=== PATIENT | male | born 1990 | race African-American/Black ===

== ENCOUNTER 2020-01-19 09:47 | Emergency (ER) | payer OTHER ==
[~2020-01-19] VITALS: Ht 172.7 cm; Wt 91.4 kg
[2020-01-19] MEDS ORDERED: IBUP200T45 PO (09:56)
[2020-01-19] MEDS ORDERED: NS 1,000 ML IV ONE (10:45)
[2020-01-19 11:31] LABS: BASO % 0.5 % (0.0-1.0); EOS # 0.1 10^3/uL (0.0-0.5); EOS % 1.6 % (0.0-3.0); HEMATOCRIT 44.9 % (42.0-52.0); HEMOGLOBIN 14.7 g/dl (13.5-17.5); LYMPH # 2.2 10^3/uL (1.5-5.0); LYMPH % 39.2 % (24.0-44.0); MEAN CORPUSCULAR HEMOGLOBIN 29.2 pg (27.0-33.0); MEAN CORPUSCULAR HGB CONC 32.7 g/dl (32.0-36.5); MEAN CORPUSCULAR VOLUME 89.3 fl (80.0-96.0); MONO # 0.5 10^3/uL (0.0-0.8); MONO % 8.2 % (0.0-5.0); NEUTROPHILS # 2.7 10^3/uL (1.5-8.5); NEUTROPHILS % 50.1 % (36.0-66.0); PLATELET COUNT, AUTOMATED 209 10^3/uL (150-450); RED BLOOD COUNT 5.03 10^6/uL (4.30-6.10); WHITE BLOOD COUNT 5.5 10^3/uL (4.0-10.0)
--- NOTE | 2020-01-19 11:35 | REP ---
PA and lateral chest: There are no comparisons. The lung machado are clear. The cardiac size is normal. The boston, mediastinum, and skeletal structures are unremarkable. Impression: Negative PA and lateral chest. Electronically Signed by Olegario Marquez MD 01/19/2020 11:26 A
[2020-01-19 11:57] LABS: APPEARANCE, URINE CLEAR (CLEAR); BACTERIA, URINE AUTO NEGATIVE (NEGATIVE); BILIRUBIN, URINE AUTO NEGATIVE (NEGATIVE); BLOOD, URINE BLOOD NEGATIVE (NEGATIVE); COLOR, URINE YELLOW (YELLOW); GLUCOSE, URINE (UA) AUTO NEGATIVE (NEGATIVE); KETONE, URINE AUTO NEGATIVE (NEGATIVE); LEUKOCYTE ESTERASE, URINE AUTO NEGATIVE (NEGATIVE); NITRITE, URINE AUTO NEGATIVE (NEGATIVE); PROTEIN, URINE AUTO NEGATIVE (NEGATIVE); RBC, URINE AUTO 1 /HPF (0-3); SPECIFIC GRAVITY URINE AUTO 1.017 (1.002-1.035); UROBILINOGEN, URINE AUTO 0.2 mg/dL (0.0-2.0); WBC, URINE AUTO 1 /HPF (0-3)
[2020-01-19 11:58] LABS: MUCUS, URINE SMALL (NEGATIVE); SQUAMOUS EPITHELIAL CELL UR AU 0 /HPF (0-6)
[2020-01-19 12:09] LABS: BLOOD UREA NITROGEN 9 MG/DL (7-18); CARBON DIOXIDE LEVEL 31 MEQ/L (21-32); CHLORIDE LEVEL 108 MEQ/L (98-107); CREATININE FOR GFR 1.01 MG/DL (0.70-1.30); ETHYL ALCOHOL (ETHANOL) 0.003 % (0.000-0.010); GLOMERULAR FILTRATION RATE > 60.0 (>60); GLUCOSE, FASTING 84 MG/DL (70-100); MAGNESIUM LEVEL 2.3 MG/DL (1.8-2.4); POTASSIUM SERUM 4.2 MEQ/L (3.5-5.1); SODIUM LEVEL 142 MEQ/L (136-145); THYROID STIMULATING HORMONE 0.915 uIU/ML (0.358-3.740)
[2020-01-19 12:19] LABS: AMPHETAMINES LEVEL URINE NEGATIVE (NEGATIVE); BARBITURATES URINE NEGATIVE (NEGATIVE); BENZODIAZEPINES URINE NEGATIVE (NEGATIVE); CANNABINOIDS URINE NEGATIVE (NEGATIVE); COCAINE METABOLITE URINE NEGATIVE (NEGATIVE); METHADONE URINE NEGATIVE (NEGATIVE); OPIATES URINE NEGATIVE (NEGATIVE); PHENCYCLIDINE URINE NEGATIVE (NEGATIVE)
[2020-01-19 14:04] VITALS: BP 117/77
--- NOTE | 2020-01-19 18:58 | ECGEPIP ---
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 Order Number: [id number] Reading MD: Jessy Burnett Measurements Intervals [place] Rate: 62 P: 35 OR: 154 QRS: 62 QRSD: 94 T: 13 QT: 367 QTc: 375 Interpretive Statements SINUS RHYTHM NONSPECIFIC T-WAVE ABNORMALITY NO PRIOR Electronically Signed on 01-19-2020 18:57:57 EDT by Jessy Burnett
== END 2020-01-19 14:08 | disposition home or self-care (01) ==
LOC: M ED 09:47
DX: R55 Syncope and collapse (principal); R53.81 Other malaise; R68.83 Chills (without fever); R51 Headache; F10.10 Alcohol abuse, uncomplicated; M54.9 Dorsalgia, unspecified; Z91.013 Allergy to seafood; Z79.1 Long term (current) use of non-steroidal anti-inflammatories (NSAID)
CPT/HCPCS: 71046; 80048; 80307; 83735; 84443; 85025; 87486; 87581; 87633; 87798; 93005; 96360; 96361; 99284; G0480

== ENCOUNTER → 2020-03-09 | Outpatient (CLI) | payer OTHER ==
[~2020-03-09] MED LIST: IBUP200T45 PO
[2020-03-09 11:33] LABS: BASO % 0.5 % (0.0-1.0); EOS # 0.1 10^3/uL (0.0-0.5); EOS % 2.3 % (0.0-3.0); HEMATOCRIT 44.2 % (42.0-52.0); HEMOGLOBIN 14.9 g/dl (13.5-17.5); LYMPH % 45.3 % (24.0-44.0); MEAN CORPUSCULAR HGB CONC 33.7 g/dl (32.0-36.5); MEAN CORPUSCULAR VOLUME 88.9 fl (80.0-96.0); MONO # 0.3 10^3/uL (0.0-0.8); MONO % 7.9 % (0.0-5.0); NEUTROPHILS # 1.9 10^3/uL (1.5-8.5); NEUTROPHILS % 43.8 % (36.0-66.0); PLATELET COUNT, AUTOMATED 181 10^3/uL (150-450); RED BLOOD COUNT 4.97 10^6/uL (4.30-6.10); WHITE BLOOD COUNT 4.3 10^3/uL (4.0-10.0)
[2020-03-09 12:00] LABS: ERYTHROCYTE SEDIMENTATION RATE 3 mm/hr (0-15)
[2020-03-09 12:28] LABS: THYROID STIMULATING HORMONE 1.69 uIU/ML (0.358-3.740)
[2020-03-22 00:08] LABS: STRONGYLOIDES SERUM ANTIBODIES Negative (Negative)
== END ==
LOC: M LAB 10:57
PROVIDERS: ATTEND Dermatology
DX: L50.9 Urticaria, unspecified (principal)
CPT/HCPCS: 36415; 82785; 84439; 84443; 85025; 85652; 86682; G0463

== ENCOUNTER 2020-04-18 11:27 | Emergency (ER) | payer OTHER ==
[~2020-04-18] VITALS: Ht 172.7 cm; Wt 88.2 kg
[2020-04-18] MEDS ORDERED: NON-325T5 PO (11:45)
[2020-04-18] MEDS ORDERED: VOLT1GEL15 TOP (13:03)
[2020-04-18] MEDS ORDERED: NAPR-837 PO (13:03)
[2020-04-18 13:09] VITALS: BP 138/81
--- NOTE | 2020-04-18 13:24 | REP ---
RIGHT SHOULDER, FOUR VIEWS: There is no evidence of an acute fracture, dislocation or intrinsic bone disease. IMPRESSION: No fracture or dislocation. Electronically Signed by Olegario Mack MD 04/19/2020 11:19 A
== END 2020-04-18 13:10 | disposition home or self-care (01) ==
LOC: M ED 11:27
DX: S49.91XA Unspecified injury of right shoulder and upper arm, initial encounter (principal); X50.0XXA Overexertion from strenuous movement or load, initial encounter; Y92.89 Other specified places as the place of occurrence of the external cause; Y93.89 Activity, other specified; Y99.1 Military activity; M54.9 Dorsalgia, unspecified; Z91.013 Allergy to seafood; Z79.899 Other long term (current) drug therapy

== ENCOUNTER 2020-04-29 20:11 | Emergency (ER) | payer OTHER ==
[~2020-04-29] VITALS: Ht 172.7 cm; Wt 88.2 kg
[~2020-04-29 20:11] MED LIST changes: +NAPR-837 PO; +NON-325T5 PO; +VOLT1GEL15 TOP
[2020-04-29] MEDS ORDERED: LIDOCAINE 5% (LIDODERM) PATCH TD ONE (20:45)
[2020-04-29] MEDS ORDERED: KETOROLAC 60MG 2ML VIAL IM ONE (20:45)
[2020-04-29] MEDS ORDERED: methylPREDNISolone 125MG 2ML VIAL IM ONE (20:45)
[2020-04-29] MEDS ORDERED: **NOTE PATIENT COMMENT** MISC XX SCH (21:00)
[2020-04-29] MEDS ORDERED: LIDO5DIS41 TOP (21:25)
[2020-04-29 21:30] VITALS: BP 133/75
[2020-04-30] MEDS ORDERED: **NOTE PATIENT COMMENT** MISC XX ONE (09:00)
--- NOTE | 2020-04-30 11:51 | REP ---
AP PELVIS AND TWO-VIEWS OF THE LEFT HIP: REASON: Trauma. A single AP view of the pelvis was performed. The hip joint spaces are symmetric and relatively well maintained. There is no acute fracture or destructive osseous lesion. LEFT HIP: The hip joint space is symmetric and relatively well maintained. T here is no acute or destructive osseous lesion. Electronically Signed by David Jama DO 04/30/2020 11:58 A
[2020-09-05] MEDS ORDERED: LIDO5DIS41 TOP (08:50)
== END 2020-04-29 21:40 | disposition home or self-care (01) ==
LOC: M ED 20:11
DX: S70.02XA Contusion of left hip, initial encounter (principal); Y93.66 Activity, soccer; Y92.9 Unspecified place or not applicable; Z91.013 Allergy to seafood; Z86.59 Personal history of other mental and behavioral disorders
CPT/HCPCS: 73502; 99284; J1885; J2930

== ENCOUNTER 2020-05-01 12:38 | Emergency (ER) | payer OTHER ==
[~2020-05-01] VITALS: Ht 172.7 cm; Wt 94.4 kg
[~2020-05-01 12:38] MED LIST changes: +LIDO5DIS41 TOP
[2020-05-01] MEDS ORDERED: NS 1,000 ML IV ONE (13:00)
[2020-05-01] MEDS ORDERED: MORPHINE 4 MG/ML 1ML VIAL/SYRINGE (J2270) IV ONE (13:00)
[2020-05-01] MEDS ORDERED: ISOVUE-370 76% 100ML VIAL As Ordered ONE (13:38)
[2020-05-01 13:39] LABS: BASO % 0.2 % (0.0-1.0); EOS # 0.1 10^3/uL (0.0-0.5); EOS % 0.8 % (0.0-3.0); HEMATOCRIT 42.7 % (42.0-52.0); HEMOGLOBIN 14.5 g/dl (13.5-17.5); LYMPH # 3.9 10^3/uL (1.5-5.0); LYMPH % 36.7 % (24.0-44.0); MEAN CORPUSCULAR HEMOGLOBIN 30.6 pg (27.0-33.0); MEAN CORPUSCULAR VOLUME 90.1 fl (80.0-96.0); MONO # 0.7 10^3/uL (0.0-0.8); MONO % 6.8 % (0.0-5.0); NEUTROPHILS # 5.9 10^3/uL (1.5-8.5); NEUTROPHILS % 55.1 % (36.0-66.0); PLATELET COUNT, AUTOMATED 194 10^3/uL (150-450); RED BLOOD COUNT 4.74 10^6/uL (4.30-6.10); WHITE BLOOD COUNT 10.6 10^3/uL (4.0-10.0)
[2020-05-01 13:54] LABS: INR 1.01
[2020-05-01 13:55] LABS: PARTIAL THROMBOPLASTIN TIME 26.6 SECONDS (25.0-38.4)
[2020-05-01] MEDS ORDERED: NORC1TAB7 PO (14:40)
[2020-05-01 14:41] VITALS: BP 141/69
--- NOTE | 2020-05-01 16:13 | REP ---
CT ABDOMEN AND PELVIS WITH IV CONTRAST: TECHNIQUE: Axial contrast-enhanced images from the lung bases to the pubic symphysis using 100 mL Isovue-370 intravenous contrast material with multiplanar reformations. Visualized lung bases are clear. The liver, spleen, adrenals, pancreas and kidneys are normal in appearance. No organ lacerations are seen. The abdominal aorta is normal in caliber with no aneurysm. There is no adenopathy. There is no free air or free fluid. There is no bowel wall thickening. The appendix is normal. No pelvic mass is seen. Urinary bladder is mildly distended and grossly unremarkable. There is no fracture of the visualized osseous structures. IMPRESSION: Negative CT abdomen and pelvis with no acute findings identified. Electronically Signed by Olegario Mack MD 05/02/2020 04:40 P
== END 2020-05-01 14:56 | disposition home or self-care (01) ==
LOC: M ED 12:38
DX: S30.0XXA Contusion of lower back and pelvis, initial encounter (principal); S70.02XA Contusion of left hip, initial encounter; X58.XXXA Exposure to other specified factors, initial encounter; Y92.830 Public park as the place of occurrence of the external cause; Y93.66 Activity, soccer; Z91.018 Allergy to other foods
CPT/HCPCS: 74177; 80047; 85025; 85610; 85730; 86850; 86900; 86901; 96361; 96374; 99284; J2270; Q9967

== ENCOUNTER 2020-06-19 11:40 | Inpatient (IN) | payer OTHER ==
[~2020-06-19 11:40] MED LIST changes: +NORC1TAB7 PO
[2020-06-20] MEDS ORDERED: SERTRALINE HCL 50 MG TAB As Ordered ONE (17:41)
[2020-06-21] MEDS ORDERED: SERTRALINE HCL 50 MG TAB As Ordered ONE (07:50)
[2020-06-22] MEDS ORDERED: SERTRALINE HCL 50 MG TAB As Ordered ONE (09:35)
[2020-06-23] MEDS ORDERED: SERTRALINE HCL 50 MG TAB As Ordered ONE (09:23)
[2020-06-24] MEDS ORDERED: ESCITALOPRAM OXALATE 10 MG TAB (LEXAPRO) As Ordered ONE (16:32)
[2020-06-25] MEDS ORDERED: ESCITALOPRAM OXALATE 10 MG TAB (LEXAPRO) As Ordered ONE (08:45)
[2020-06-26] MEDS ORDERED: ESCITALOPRAM OXALATE 10 MG TAB (LEXAPRO) As Ordered ONE (08:28)
[2020-06-26] MEDS ORDERED: MOM 30ML SUSPENSION UDC PO PRN (18:15)
[2020-06-26] MEDS ORDERED: IBUPROFEN 600MG TAB PO PRN (18:15)
[2020-06-26] MEDS ORDERED: MAALOX 30 ML SUSP *UDC PO PRN (18:15)
[2020-06-26] MEDS ORDERED: OLANZapine ORAL DISINTEGRATING TAB 5MG PO PRN (18:15)
[2020-06-26] MEDS ORDERED: ACETAMINOPHEN TAB 650MG DOSE (2X325MG) PO PRN (18:15)
[2020-06-26] MEDS ORDERED: RAMELTEON 8 MG TAB (ROZEREM) PO PRN (18:15)
[2020-06-26] MEDS ORDERED: ONDANSETRON 4 MG TAB PO PRN (18:15)
[2020-06-26] MEDS ORDERED: TRAZ-252 PO (18:28)
[2020-06-26] MEDS ORDERED: ACET-897 PO (18:28)
[2020-06-27] MEDS: ESCITALOPRAM OXALATE 10 MG TAB (LEXAPRO) PO SCH (09:00)
[2020-06-28] MEDS: ESCITALOPRAM OXALATE 10 MG TAB (LEXAPRO) PO SCH (09:00)
[2020-06-29] MEDS: ESCITALOPRAM OXALATE 10 MG TAB (LEXAPRO) PO SCH (09:00)
[2020-06-30] MEDS: ESCITALOPRAM OXALATE 10 MG TAB (LEXAPRO) PO SCH (09:00)
[2020-07-01] MEDS: ESCITALOPRAM OXALATE 10 MG TAB (LEXAPRO) PO SCH (09:00)
[2020-07-02] MEDS: ESCITALOPRAM OXALATE 10 MG TAB (LEXAPRO) PO SCH (09:00)
[2020-07-03] MEDS: ESCITALOPRAM OXALATE 10 MG TAB (LEXAPRO) PO SCH (09:00)
[2020-07-04] MEDS: ESCITALOPRAM OXALATE 10 MG TAB (LEXAPRO) PO SCH (09:00)
[2020-07-05] MEDS: ESCITALOPRAM OXALATE 10 MG TAB (LEXAPRO) PO SCH (09:00)
[2020-07-06] MEDS: ESCITALOPRAM OXALATE 10 MG TAB (LEXAPRO) PO SCH (08:55)
--- NOTE | 2020-07-24 07:59 | MHIPN ---
DATE: 06/23/2020 HISTORY OF PRESENT ILLNESS: Chivo is a 30-year-old male with a past medical history of depression, anxiety, and hypogonadism who was admitted after he attempted suicide with several trazodone tablets. By the time that I interviewed him initially, he says that he probably had not taken 16 tablets that he thought he had taken, that maybe it was only three because somebody had helped him throw up the remaining tablets. The patient reported many stressors including immigration stressors, family stressors, his is in [place], and work related stressors. At the time of his admission, he admitted feeling hopeless, helpless, he was tearful at times, he reported feeling anxious, reported low energy levels, and he reported feeling guilty because of his recent suicide attempt. He thinks that it is a big offense against God because he is a Christianity Latter-Day. SUBJECTIVE: The patient reports today, that he has been feeling better, he has been socializing with other patients, and he has spoken with his family who have told him that probably he should be praying the Nov[place], which in the Latter-Day tradition is to pray for nine consecutive days, and they have told him that maybe he should get closer to God so that he can give him strength. The patient denies, at this time, suicidal thoughts, denies homicidal thoughts, and denies thought delusions. He denies auditory, visual, or tactile hallucinations. He reported having diarrhea secondary to Zoloft but this has resolved already. OBJECTIVE (MENTAL STATUS EXAMINATION): The patient was alert and oriented times three, he was pleasant and cooperative as he always was since he was admitted, he has a good disposition, he is optimistic about the future, he is not exactly pessimistic at this time. His eye contact is good. Speech is normal in rate, tone, and volume, is spontaneous and fluent. His thought process is linear and coherent, thought content is negative for suicidal thoughts, negative for homicidal ideation, and negative for thought delusions, he still reports some anxious thoughts and some depressive thoughts, but he denies feeling hopeless or helpless at this time, he denies hallucinations. His mood and affect are euthymic and at times a little bit anxious. His insight and judgment have improved. DIAGNOSIS: Major depressive disorder, single episode, moderate to severe. ASSESSMENT/ PLAN: The patient will continue with the same treatment plan and will continue to attend groups. The patient is not taking Zoloft 50 mg at this time, but he is still taking the medication, apparently it has been decreased by Dr. Harden to 25 mg by mouth daily, he will continue to take this medication, and if patient is stable enough, probably he could be discharged next Thursday, which will be 06/25/2020. [facility]
--- NOTE | 2020-07-24 08:02 | MHIPN ---
DATE: 06/24/2020 HISTORY: Mr. Bae is a 30-year-old male with history of depression, anxiety, and a recent suicide attempt by ingesting several trazodone tablets. SUBJECTIVE: Mr. Bae reports sleeping better although his appetite is still decreased. He reports his depression and his anxiety are both a 3/10 (10 being the worst). He denies feeling hopeless but he still feels helpless. He denies suicidal ideation and reports feeling more positive about his life. He has plans for the future. OBJECTIVE (MENTAL STATUS EXAMINATION): The patient is pleasant and cooperative, he is dressed in hospital clothes, he is alert and oriented times three. His eye contact is good, his speech is normal in rate, rhythm, tone, and volume, it is spontaneous and fluent. His thought process is linear and coherent and his thought content is negative for suicidal thoughts but is positive for helplessness and for guilty thoughts. He denies thought delusions and denies auditory, visual, or tactile hallucinations. His mood and affect are brighter at this time. Insight and judgment are improving. ASSESSMENT AND PLAN: The patient is having a good response to medications and he overall looks better, he smiles at times during the conversation, and he is goal-directed, but he is still worried, he is still anxious and mildly depressed. He has been taking Zoloft but he has been experiencing diarrhea, therefore he did not take todays dose with the hope that I was going to discontinue the medication, and I have discontinued it and instead I have started him on Lexapro 10 mg by mouth daily. The patient is motivated for change, he wants to overcome his illness, he has been cooperative and very pleasant with staff and other patients. I still have encouraged him to keep attending groups, to journal, and to seek help when he feels unsafe. AMY
--- NOTE | 2020-07-24 08:05 | MHIPN ---
DATE: 06/25/2020 Mr. Bae is a 30-year-old male who has been admitted for a recent suicide attempt by ingesting several trazodone tablets. He has reported he ingested 16 tablets, but he says that some people helped him throw up some of those tablets, so he thinks that maybe he only ingested 3-4 tablets. The patient has been facing multiple stressors, including immigration problems regarding his , work related issues. The patient has been receiving treatment with selective serotonin reuptake inhibitors (SSRIs), he was started on Zoloft but he developed diarrhea, therefore Zoloft was discontinued and he was started on Lexapro 10 mg by mouth daily. His mood and affect have improved. SUBJECTIVE: Mr. Bae reports sleeping through the night, improved appetite, motivation, good attention and concentration, good energy levels, and he says he does not feel hopeless or helpless at this time. He denies suicidal ideation and he is goal directed, future oriented. OBJECTIVE (MENTAL STATUS EXAMINATION): The patient is alert and oriented times three, cooperative with interview, dressed in hospital clothes, with good eye contact. His speech is normal in rate, rhythm, tone, and volume, it is spontaneous and fluent. His thought process is linear and coherent, his thought content is negative for suicidal thoughts, negative for homicidal thoughts, negative for thought delusions, and he denies auditory, visual, or tactile hallucinations. He is not responding to internal stimuli. His mood and affect are brighter, euthymic. Insight and judgment have improved. ASSESSMENT AND PLAN: The patient is pretty much improved, he is future oriented, he says that he will have to take his test for naturalization and citizenship this upcoming and he wants to study for it. He is determined to work on his current problems and followup with the therapist at [facility] and continue taking his medications. At this time, he has not reported medication side effects (Lexapro 10 mg by mouth daily). Will continue with the same treatment plan. Will continue to monitor him for safety and will continue to encourage him to attend groups. Patient may be ready for discharge, will notify party planner so that she can speak with [facility]. AMY
--- NOTE | 2020-07-26 14:44 | ECGEPIP ---
SINUS RHYTHM WITH SINUS ARRHYTHMIA NONSPECIFIC ST & T-WAVE CHANGES SEE SCANNED DOWNTIME REPORT MTDD
[2020-08-04 10:24] LABS: BASO % 0.4 % (0.0-1.0); EOS % 0.7 % (0.0-3.0); HEMATOCRIT 40.6 % (42.0-52.0); HEMOGLOBIN 13.6 g/dl (13.5-17.5); LYMPH # 1.9 10^3/uL (1.5-5.0); LYMPH % 33.9 % (24.0-44.0); MEAN CORPUSCULAR HEMOGLOBIN 30.1 pg (27.0-33.0); MEAN CORPUSCULAR HGB CONC 33.5 g/dl (32.0-36.5); MEAN CORPUSCULAR VOLUME 89.8 fl (80.0-96.0); MONO # 0.5 10^3/uL (0.0-0.8); MONO % 9.2 % (0.0-5.0); NEUTROPHILS # 3.1 10^3/uL (1.5-8.5); NEUTROPHILS % 55.6 % (36.0-66.0); PLATELET COUNT, AUTOMATED 196 10^3/uL (150-450); RED BLOOD COUNT 4.52 10^6/uL (4.30-6.10); WHITE BLOOD COUNT 5.5 10^3/uL (4.0-10.0)
[2020-08-04 11:32] LABS: AMORPHOUS SEDIMENT SMALL (NEGATIVE); APPEARANCE, URINE CLOUDY (CLEAR); BACTERIA, URINE AUTO NEGATIVE (NEGATIVE); BILIRUBIN, URINE AUTO NEGATIVE (NEGATIVE); BLOOD, URINE BLOOD NEGATIVE (NEGATIVE); CALCIUM OXALATE CRYSTALS SMALL; COLOR, URINE YELLOW (YELLOW); GLUCOSE, URINE (UA) AUTO NEGATIVE (NEGATIVE); KETONE, URINE AUTO NEGATIVE (NEGATIVE); LEUKOCYTE ESTERASE, URINE AUTO NEGATIVE (NEGATIVE); MUCUS, URINE SMALL (NEGATIVE); NITRITE, URINE AUTO NEGATIVE (NEGATIVE); PROTEIN, URINE AUTO NEGATIVE (NEGATIVE); RBC, URINE AUTO 0 /HPF (0-3); SPECIFIC GRAVITY URINE AUTO 1.028 (1.002-1.035); SQUAMOUS EPITHELIAL CELL UR AU 0 /HPF (0-6); UROBILINOGEN, URINE AUTO 0.2 mg/dL (0.0-2.0); WBC, URINE AUTO 2 /HPF (0-3)
[2020-09-05] MEDS ORDERED: LIDO5DIS41 TOP (08:50)
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
[2020-09-07 08:59] LABS: ACETAMINOPHEN LEVEL < 2.0 UG/ML (10.0-30.0); ALT/SGPT 37 U/L (12-78); BILIRUBIN,TOTAL 0.8 MG/DL (0.2-1.0); BLOOD UREA NITROGEN 14 MG/DL (7-18); CALCIUM LEVEL 9.1 MG/DL (8.5-10.1); CARBON DIOXIDE LEVEL 27 MEQ/L (21-32); CHLORIDE LEVEL 107 MEQ/L (98-107); ETHYL ALCOHOL (ETHANOL) < 0.003 % (0.000-0.010); GLOMERULAR FILTRATION RATE > 60.0 (>60); GLUCOSE, FASTING 84 MG/DL (70-100); POTASSIUM SERUM 6.3 MEQ/L (3.5-5.1); SALICYLATE LEVEL < 1.7 MG/DL (5.0-30.0); SODIUM LEVEL 138 MEQ/L (136-145)
[2020-09-07 09:00] LABS: AMPHETAMINES LEVEL URINE NEGATIVE (NEGATIVE); BARBITURATES URINE NEGATIVE (NEGATIVE); BENZODIAZEPINES URINE NEGATIVE (NEGATIVE); CANNABINOIDS URINE NEGATIVE (NEGATIVE); COCAINE METABOLITE URINE NEGATIVE (NEGATIVE); METHADONE URINE NEGATIVE (NEGATIVE); OPIATES URINE NEGATIVE (NEGATIVE); PHENCYCLIDINE URINE NEGATIVE (NEGATIVE)
== END 2020-06-26 09:50 | disposition home or self-care (01) | DRG 885 ==
LOC: M ED 11:40 → M PSY 06-20 02:00 → M ED 06-24 09:40 → UNDOADMIN 06-25 01:00 → M PSY 06-25 01:00 → UNDODISIN 06-28
PROVIDERS: ADMIT Psychiatry & Neurology Addiction Medicine; ATTEND Psychiatry & Neurology Addiction Medicine
DX: F33.9 Major depressive disorder, recurrent, unspecified (principal); Z91.013 Allergy to seafood

== ENCOUNTER → 2020-07-25 | Outpatient (CLI) | payer OTHER ==
[~2020-07-25] MED LIST changes: +ACET-897 PO; +DIVA250T67 PO; +ELIQ5TAB PO; +ESCI5SOL3 PO; +RISP1SS PO; +TRAZ-186 PO; +TRAZ-252 PO
--- NOTE | 2020-07-25 14:38 | PFTRPT ---
Visit Date: 07/25/2020 Second ID: [id number] Referring Doctor: Tristan Bahena Height: 68.00 Inches Weight: 195.00 Lbs BSA: 2.02 Diagnosis: SOB TECHNIQUE: Pre- and post-bronchodilator study of excellent technical quality. FINDINGS: Forced vital capacity is minimally reduced. FEV1 is in proportion of obstructive index; therefore, normal. Expiratory limit within the flow-volume loop is reasonably normal. No significant bronchodilator response identified. Total lung capacity is mildly reduced. Residual volume is in proportion. Diffusing capacity is normal. No hemoglobin is available for correction. Airway resistance and conductance are normal. IMPRESSION: Mild restrictive ventilatory impairment. Please correlate clinically. MTDD
== END ==
LOC: M CARPUL 13:56
PROVIDERS: ATTEND Physician Assistant
DX: R06.02 Shortness of breath (principal)

== ENCOUNTER 2020-07-26 13:43 | Emergency (ER) | payer OTHER ==
[~2020-07-26] VITALS: Ht 160 cm; Wt 88.6 kg
[~2020-07-26 13:43] MED LIST changes: -DIVA250T67 PO; -ELIQ5TAB PO; -ESCI5SOL3 PO; -RISP1SS PO; -TRAZ-186 PO
[2020-07-26 14:37] LABS: HEMATOCRIT 43.7 % (42.0-52.0); HEMOGLOBIN 14.4 g/dl (13.5-17.5); MEAN CORPUSCULAR HEMOGLOBIN 30.1 pg (27.0-33.0); MEAN CORPUSCULAR VOLUME 91.2 fl (80.0-96.0); PLATELET COUNT, AUTOMATED 194 10^3/uL (150-450); RED BLOOD COUNT 4.79 10^6/uL (4.30-6.10)
[2020-07-26 15:28] LABS: ALBUMIN 4.1 GM/DL (3.2-5.2); ALT/SGPT 33 U/L (12-78); BILIRUBIN,DIRECT 0.1 MG/DL (0.0-0.2); BILIRUBIN,TOTAL 0.5 MG/DL (0.2-1.0); BLOOD UREA NITROGEN 10 MG/DL (7-18); CALCIUM LEVEL 9.3 MG/DL (8.5-10.1); CARBON DIOXIDE LEVEL 25 MEQ/L (21-32); CHLORIDE LEVEL 109 MEQ/L (98-107); CREATININE FOR GFR 1.05 MG/DL (0.70-1.30); GLOMERULAR FILTRATION RATE > 60.0 (>60); GLUCOSE, FASTING 78 MG/DL (70-100); POTASSIUM SERUM 3.8 MEQ/L (3.5-5.1); SALICYLATE LEVEL < 1.7 MG/DL (5.0-30.0); SODIUM LEVEL 142 MEQ/L (136-145); TOTAL PROTEIN 7.7 GM/DL (6.4-8.2)
[2020-07-26 15:29] LABS: ACETAMINOPHEN LEVEL < 2.0 UG/ML (10.0-30.0); ETHYL ALCOHOL (ETHANOL) < 0.003 % (0.000-0.010)
[2020-07-26 19:41] LABS: AMPHETAMINES LEVEL URINE NEGATIVE (NEGATIVE); BARBITURATES URINE NEGATIVE (NEGATIVE); BENZODIAZEPINES URINE NEGATIVE (NEGATIVE); CANNABINOIDS URINE NEGATIVE (NEGATIVE); COCAINE METABOLITE URINE NEGATIVE (NEGATIVE); METHADONE URINE NEGATIVE (NEGATIVE); OPIATES URINE NEGATIVE (NEGATIVE); PHENCYCLIDINE URINE NEGATIVE (NEGATIVE)
[2020-07-27 17:50] VITALS: BP 135/62
--- NOTE | 2020-07-28 11:51 | ECGEPIP ---
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
[2020-09-05] MEDS ORDERED: LIDO5DIS41 TOP (08:50)
== END 2020-07-27 17:53 ==
LOC: M ED 13:43
DX: R45.851 Suicidal ideations (principal); F32.9 Major depressive disorder, single episode, unspecified; Z91.013 Allergy to seafood
CPT/HCPCS: 80048; 80076; 80307; 84443; 85027; 93005; 99284; G0480; U0002

== ENCOUNTER 2020-08-15 10:03 | Emergency (ER) | payer OTHER ==
[~2020-08-15] VITALS: Ht 172.7 cm; Wt 90.9 kg
[2020-08-15] MEDS ORDERED: ESCI5SOL3 PO (10:15)
[2020-08-15] MEDS ORDERED: DIVA250T67 PO (10:15)
[2020-08-15] MEDS ORDERED: TRAZ-186 PO (10:15)
[2020-08-15] MEDS ORDERED: RISP1SS PO (10:15)
[2020-08-15] MEDS ORDERED: ELIQ5TAB PO (10:15)
[2020-08-15] MEDS ORDERED: ACETAMINOPHEN 500 MG TAB PO ONE (11:45)
--- NOTE | 2020-08-15 12:26 | REPVR ---
PROCEDURE INFORMATION: Exam: XR Right Ribs with PA Chest, 3 Views Exam date and time: 08/15/2020 11:42 AM Age: 30 years old Clinical indication: Chest wall pain; Right; Additional info: R rib pain S/P fall TECHNIQUE: Imaging protocol: XR Right ribs 3 views with PA chest. COMPARISON: PA Chest, 2 view PA, Lat 01/19/2020 11:07 AM FINDINGS: Lungs: Unremarkable. No consolidation. Pleural space: Unremarkable. No pleural effusion. No pneumothorax. Heart/Mediastinum: Unremarkable. No cardiomegaly. Bones/joints: Minimal dextrocurvature of the lower thoracic spine. No acute displaced right rib fracture. IMPRESSION: No acute cardiopulmonary abnormality or acute right rib fracture is identified. Electronically signed by: Salome Billings On 08/15/2020 12:25:30 PM
--- NOTE | 2020-08-15 12:27 | REPVR ---
PROCEDURE INFORMATION: Exam: XR Right Shoulder Exam date and time: 08/15/2020 11:42 AM Age: 30 years old Clinical indication: Pain; Shoulder; Right; Additional info: R shoulder pain TECHNIQUE: Imaging protocol: XR Right shoulder. Views: 2 or more views. COMPARISON: No relevant prior studies available. FINDINGS: Bones/joints: No acute fracture. No dislocation. Soft tissues: Normal. IMPRESSION: No acute osseous abnormality. Electronically signed by: Salome Billings On 08/15/2020 12:26:40 PM
[2020-08-15] MEDS ORDERED: LIDOCAINE 5% (LIDODERM) PATCH TD ONE (13:15)
[2020-08-15 14:10] LABS: BASO % 0.4 % (0.0-1.0); EOS # 0.1 10^3/uL (0.0-0.5); EOS % 1.8 % (0.0-3.0); HEMATOCRIT 42.3 % (42.0-52.0); HEMOGLOBIN 13.7 g/dl (13.5-17.5); LYMPH # 2.3 10^3/uL (1.5-5.0); LYMPH % 41.9 % (24.0-44.0); MEAN CORPUSCULAR HEMOGLOBIN 29.3 pg (27.0-33.0); MEAN CORPUSCULAR HGB CONC 32.4 g/dl (32.0-36.5); MEAN CORPUSCULAR VOLUME 90.6 fl (80.0-96.0); MONO # 0.5 10^3/uL (0.0-0.8); NEUTROPHILS # 2.6 10^3/uL (1.5-8.5); NEUTROPHILS % 46.7 % (36.0-66.0); PLATELET COUNT, AUTOMATED 215 10^3/uL (150-450); RED BLOOD COUNT 4.67 10^6/uL (4.30-6.10); WHITE BLOOD COUNT 5.5 10^3/uL (4.0-10.0)
[2020-08-15] MEDS ORDERED: ISOVUE-370 76% 100ML VIAL As Ordered ONE (14:30)
[2020-08-15 14:32] LABS: ALBUMIN 4.1 GM/DL (3.2-5.2); BILIRUBIN,DIRECT 0.1 MG/DL (0.0-0.2); BILIRUBIN,TOTAL 0.6 MG/DL (0.2-1.0); TOTAL PROTEIN 7.7 GM/DL (6.4-8.2)
--- NOTE | 2020-08-15 15:17 | REPVR ---
PROCEDURE INFORMATION: Exam: CT Abdomen And Pelvis With Contrast Exam date and time: 08/15/2020 2:41 PM Age: 30 years old Clinical indication: Abdominal pain; Additional info: R cvat S/P fall TECHNIQUE: Imaging protocol: Computed tomography of the abdomen and pelvis with intravenous contrast. Radiation optimization: All CT scans at this facility use at least one of these dose optimization techniques: automated exposure control; mA and/or kV adjustment per patient size (includes targeted exams where dose is matched to clinical indication); or iterative reconstruction. Contrast material: ISO 370; Contrast volume: 100 ml; Contrast route: INTRAVENOUS (IV); COMPARISON: CT ABD/PEL W/IV CONTRAST ONLY 05/01/2020 1:48 PM FINDINGS: Liver: Normal. No mass. Gallbladder and bile ducts: Normal. No calcified stones. No ductal dilation. Pancreas: Normal. No ductal dilation. Spleen: Normal. No splenomegaly. Adrenals: Normal. No mass. 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 Mild distention of the left extrarenal pelvis. No caliectasis. No obstructing calculus. Stomach and bowel: Unremarkable. No obstruction. No mucosal thickening. Appendix: No evidence of appendicitis. Intraperitoneal space: Trace hypodense free fluid in the right lower quadrant. Vasculature: Unremarkable. No abdominal aortic aneurysm. Lymph nodes: Partially imaged mildly prominent 14 mm right hilar lymph node. Urinary bladder: Unremarkable as visualized. Reproductive: Unremarkable as visualized. Bones/joints: Unremarkable. No acute fracture. Soft tissues: Unremarkable. IMPRESSION: 1. No acute fracture is identified. 2. Trace simple appearing free fluid in the right lower quadrant. 3. Partially imaged mildly prominent right hilar lymph node. Consider further evaluation with nonemergent chest CT. Electronically signed by: Salome Billings On 08/15/2020 15:16:52 PM
[2020-08-15] MEDS ORDERED: LIDO5DIS41 TOP (15:28)
[2020-08-15 15:33] VITALS: BP 132/71
[2020-08-16] MEDS ORDERED: **NOTE PATIENT COMMENT** MISC XX ONE (01:00)
[2020-09-05] MEDS ORDERED: LIDO5DIS41 TOP (08:50)
== END 2020-08-15 15:39 | disposition home or self-care (01) ==
LOC: M ED 10:03
DX: S46.811A Strain of other muscles, fascia and tendons at shoulder and upper arm level, right arm, initial encounter (principal); S20.211A Contusion of right front wall of thorax, initial encounter; R10.31 Right lower quadrant pain; T50.905A Adverse effect of unspecified drugs, medicaments and biological substances, initial encounter; R32 Unspecified urinary incontinence; R59.0 Localized enlarged lymph nodes; M54.2 Cervicalgia; W19.XXXA Unspecified fall, initial encounter; Y92.238 Other place in hospital as the place of occurrence of the external cause; I10 Essential (primary) hypertension; M54.9 Dorsalgia, unspecified; Z86.718 Personal history of other venous thrombosis and embolism; F39 Unspecified mood [affective] disorder; Z91.013 Allergy to seafood; Z79.899 Other long term (current) drug therapy; Z79.01 Long term (current) use of anticoagulants
CPT/HCPCS: 71101; 73030; 74177; 80047; 80076; 81001; 83690; 85025; 99284; Q9967

== ENCOUNTER 2020-10-31 10:53 | Emergency (ER) | payer OTHER ==
[~2020-10-31] VITALS: Ht 172.7 cm; Wt 90.9 kg
[~2020-10-31 10:53] MED LIST changes: +ACET-838 PO; +DIVA250T67 PO; +ELIQ5TAB PO; +ESCI5SOL3 PO; -NON-325T5 PO; +RISP1SS PO; +TRAZ-186 PO
[2020-10-31] MEDS ORDERED: LEXA1TAB2 PO (11:22)
[2020-10-31] MEDS ORDERED: ACET-683 PO (11:22)
[2020-10-31 12:38] LABS: HEMATOCRIT 41.7 % (42.0-52.0); HEMOGLOBIN 13.7 g/dl (13.5-17.5); MEAN CORPUSCULAR HEMOGLOBIN 28.8 pg (27.0-33.0); MEAN CORPUSCULAR HGB CONC 32.9 g/dl (32.0-36.5); MEAN CORPUSCULAR VOLUME 87.6 fl (80.0-96.0); PLATELET COUNT, AUTOMATED 179 10^3/uL (150-450); RED BLOOD COUNT 4.76 10^6/uL (4.30-6.10); WHITE BLOOD COUNT 4.2 10^3/uL (4.0-10.0)
[2020-10-31 13:11] LABS: AMPHETAMINES LEVEL URINE NEGATIVE (NEGATIVE); BARBITURATES URINE NEGATIVE (NEGATIVE); BENZODIAZEPINES URINE NEGATIVE (NEGATIVE); CANNABINOIDS URINE NEGATIVE (NEGATIVE); COCAINE METABOLITE URINE NEGATIVE (NEGATIVE); METHADONE URINE NEGATIVE (NEGATIVE); OPIATES URINE NEGATIVE (NEGATIVE); PHENCYCLIDINE URINE NEGATIVE (NEGATIVE)
[2020-10-31 13:20] LABS: ALBUMIN 4.1 GM/DL (3.2-5.2); ALT/SGPT 49 U/L (12-78); BILIRUBIN,DIRECT 0.1 MG/DL (0.0-0.2); BILIRUBIN,TOTAL 0.4 MG/DL (0.2-1.0); BLOOD UREA NITROGEN 8 MG/DL (7-18); CALCIUM LEVEL 9.5 MG/DL (8.5-10.1); CARBON DIOXIDE LEVEL 28 MEQ/L (21-32); CHLORIDE LEVEL 109 MEQ/L (98-107); CREATININE FOR GFR 0.95 MG/DL (0.70-1.30); ETHYL ALCOHOL (ETHANOL) < 0.003 % (0.000-0.010); GLOMERULAR FILTRATION RATE > 60.0 (>60); GLUCOSE, FASTING 88 MG/DL (70-100); SALICYLATE LEVEL < 1.7 MG/DL (5.0-30.0); SODIUM LEVEL 140 MEQ/L (136-145)
[2020-10-31 13:21] LABS: ACETAMINOPHEN LEVEL < 2.0 UG/ML (10.0-30.0)
[2020-10-31] MEDS ORDERED: ELIQ5TAB PO (14:20)
[2020-10-31] MEDS ORDERED: TRAZ-252 PO (14:31)
[2020-10-31 15:56] VITALS: BP 140/83
== END 2020-10-31 16:06 | disposition home or self-care (01) ==
LOC: M ED 10:53
DX: Z04.6 Encounter for general psychiatric examination, requested by authority (principal); F39 Unspecified mood [affective] disorder; F43.20 Adjustment disorder, unspecified; Z86.718 Personal history of other venous thrombosis and embolism; Z79.01 Long term (current) use of anticoagulants; Z79.899 Other long term (current) drug therapy; Z91.013 Allergy to seafood
CPT/HCPCS: 36415; 80048; 80076; 80307; 84443; 85027; 99284; G0480

== ENCOUNTER 2020-12-27 14:43 | Inpatient (IN) | payer OTHER ==
[~2020-12-27] VITALS: Ht 172.7 cm; Wt 90.1 kg
[~2020-12-27 14:43] MED LIST changes: +ACET-683 PO; +LEXA1TAB2 PO
--- OUTSIDE RECORDS SUMMARY | 2020-12-27 14:48 | CCD | Continuity of Care Document ---
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 020 Divalproex S[address] 250mg Table[address] [facility] 11/07/2020 Methocarbamol 500mg Tablets [facility] 11/07/2020 Escitalopram Oxalate 20mg Tablets [facility] 11/07/2020 Acetaminophen 325mg Tablets [facility] 11/07/2020 Trazodone HCL 50mg Tablets [facility] 11/07/2020 Eliquis 5mg Tablets [facility] 11/07/2020 Ivermectin 3mg Tablets [facility] 11/07/2020 Risperidone 1mg Tablets [facility] 11/07/2020 Injection For Skin Disease Every 3 Months [facility] 11/07/2020 Hydrocodone Bitartrate/Acetaminophen 5-325mg Tablets Take 1 Tablet By Mouth 4 Times Daily as Needed For Pain . DO Not Exceed 4 Per 24 Hours Unknown Vital Signs Date Vital Result Comment 11/07/2020 2:30pm Height 68 inches 5'8" Weight 210.00 lb BMI (Body Mass Index) 31.9 kg/m2 Body Temperature 97.3 F BP Systolic 131 mmHg BP Diastolic 86 mmHg Heart Rate 86 /min O2 % BldC Oximetry 98 % Results Test Acquired Date Facility Test Result H/L Range Note CBC W/Automated Diff 12/03/[address] [address] [phone] CBC W/Automated Diff (SEE NOTE) 1 WBC 5.2 10^3/uL 4.2 - 11.0 RBC 4.44 10^6/uL Low 4.50 - 6.30 Hemoglobin 13.3 g/dL Low 14.0 - 16.0 Hematocrit 39.1 % Low 41.0 - 51.0 MCV 88.1 fL 80.0 - 94.0 MCH 30.0 pg 27.0 - 34.0 MCHC 34.0 g/dL 31.0 - 36.0 RDW 12.3 % 11.5 - 14.8 Platelets 185 10^3/uL 150 - 450 MPV 10.2 fL 7.4 - 10.4 Neut 41.3 % 37.0 - 80.0 Lymph 48.2 % High 25.0 - 40.0 [place] 7.8 % 3.0 - 8.0 Eos 2.1 % 0.0 - 7.0 Baso 0.4 % 0.0 - 2.0 %Ig 0.2 % High 0.0 - 0.0 %NRBC 0.0 % 0.0 - 0.0 #Neut 2.16 10^3/uL 2.00 - 6.90 #Lymph 2.52 10^3/uL 0.60 - 3.40 #[place] 0.41 10^3/uL 0.00 - 0.90 #Eos 0.11 10^3/uL 0.00 - 0.70 #Baso 0.02 10^3/uL 0.00 - 0.20 #Ig 0.01 10^3/uL 0.00 - 0.10 #NRBC 0.00 10^3/uL 0.00 - 0.00 Manual Diff NOT INDICATED RBC Morph NOT INDICATED Comprehensive Metabolic Panel 12/03/2020 [facility] [address] [place], [place] [id number] [phone] Comprehensive Metabo (SEE NOTE) 2 Sodium 140 mEq/L 134 - 153 Potassium 4.1 mEq/L 3.6 - 5.0 Chloride 105 mEq/L 98 - 107 Co2 28 mEq/L 22 - 30 Glucose 100 mg/dL High 70 - 99 BUN 10 mg/dL 7 - 21 Creatinine 0.8 mg/dL 0.7 - 1.5 BUN/Creat 13 8 - 27 Total Protein 6.9 g/dL 6.3 - 8.2 Albumin 4.4 g/dL 3.9 - 5.0 Globulin 2.5 GM/DL 2.4 - 3.2 A/G Ratio 1.8 0.8 - 2.0 Calcium 9.3 mg/dL 8.4 - 10.2 Total Bili <0.7 mg/dL 0.2 - 1.3 Alkaline Phos 57 U/L 38 - 126 Sgot/Ast 18 U/L 5 - 40 SGPT/Alt 18 U/L 7 - 56 Anion Gap 7.0 mmol/L Low 8.0 - 16.0 Age 30 yrs Non-Aa GFR >60 mL/min Afr Amer GFR >60 mL/min 3 1 COMPLETE BLOOD COUNT 2 COMPREHENSIVE METABOLIC PANE L 3 Male GFR Interprentation 20-49 yrs >60 mL/min Normal 50-59 yrs >56 mL/min Normal 60-69 yrs >49 mL/min Normal 70-79yrs >42 mL/min Normal 80 and above >35 mL/min Normal Female GFR Interpretation 20-39 yrs >60 mL/min Normal 40-49 yrs >58 mL/min Normal 50-59 yrs >51 mL/min Normal 60-69 yrs >45 mL/min Normal 70-79 yrs >39 mL/min Normal 80 and above >32 mL/min Normal Procedures Date Code Description Status 11/07/2020 87382 Echocardiogram, Complete Complet ed 11/07/2020 43078 Multistage Exercise Stress Test Completed 11/07/2020 24634 EKG Completed Encounters Type Date Location Provider Dx Diagnosis Office Visit 11/07/2020 2:[facility]p [facility] R55 Syncope and collapse I34.0 Nonrheumatic mitral (valve) insufficiency I25.9 Chronic ischemic heart disea se, unspecified I49.49 Other premature depolarizati on Assessments Date Code Description Provider 11/07/2020 R55 Syncope and collapse [facility] 11/07/2020 I34.0 Nonrheumatic mitral (valve) insu fficiency [facility] 11/07/2020 I25.9 Chronic ischemic heart disease, unspecified [facility] 11/07/2020 I49.49 Other premature depolarization M [facility] Plan of Treatment Future Appointment(s):* 12/10/2020 11:30 am - [facility] at [facility] Referrals Refer to Dr Reason for Referral Status Appt Date Dylan Shi M.D. Created [address] [place] [id number] [phone] Dylan Shi M.D. Created [address] [place] [address] [phone]
--- OUTSIDE RECORDS SUMMARY | 2020-12-27 14:48 | CCD | Continuity of Care Document ---
Author Author [facility] Organization Unknown Address [address] [place] [address] Phone [phone] Care Team Providers Care Train Crew Member Name Role Phone [facility] AUTM [phone] Benito Willett Bola AUTM [phone] Julian [facility]inaUn[facility] AUTM [phone] Social History Type Date Description Comments Sex Unknown Allergies, Adverse Reactions, Alerts Active Allergies Reaction Severity Comments Date Seafood 11/07/2020 Medications Active Medications SIG Qnty Indications Ordering Provide r Date Lidocaine 4% Cream apply to affected area twice daily 15gm [facility] 020 Divalproex Sodium 250mg Tablets DR [facility] 11/07/2020 Methocarbamol 500mg Tablets Dylan [facility]Si [facility] 11/07/2020 Escitalopram Oxalate 20mg Tablets [facility] 11/07/2020 Acetaminophen 325mg Tablets [facility] 11/07/2020 Trazodone HCL 50mg Tablets [facility] 11/07/2020 Eliquis 5mg Tablets [facility] 11/07/2020 Ivermectin 3mg Tablets [facility] 11/07/2020 Risperidone 1mg Tablets [facility] 11/07/2020 Injection For Skin Disease Every 3 Months Dylan Sih [facility] 11/07/2020 Hydrocodone Bitartrate/Acetaminophen 5-325mg Tablets Take 1 Tablet By Mouth 4 Times Daily as Needed For Pain . DO Not Exceed 4 Per 24 Hours Unknown Vital Signs Date Vital Result Comment 12/18/2020 1:33pm Height 68 inches 5'8" Weight 213.00 lb BMI (Body Mass Index) 32.4 kg/m2 Body Temperature 97.9 F BP Systolic 133 mmHg BP Diastolic 92 mmHg Heart Rate 95 /min O2 % BldC Oximetry 98 % 11/07/2020 2:30pm Height 68 inches 5'8" Weight 210.00 lb BMI (Body Mass Index) 31.9 kg/m2 Body Temperature 97.3 F BP Systolic 131 mmHg BP Diastolic 86 mmHg Heart Rate 86 /min O2 % BldC Oximetry 98 % Results Test Acquired Date Facility Test Result H/L Range Note CBC W/Automated Diff 12/03/[address] [id number] [phone] CBC W/Automated Diff (SEE NOTE) 1 WBC [...] Lymph 48.2 % High 25.0 - 40.0 [place] 7.8 % 3.0 - 8.0 Eos 2.1 % 0.0 - 7.0 Baso 0.4 % 0.0 - 2.0 %Ig 0.2 % High 0.0 - 0.0 %NRBC 0.0 % 0.0 - 0.0 #Neut 2.16 10^3/uL 2.00 - 6.90 #Lymph 2.52 10^3/uL 0.60 - 3.40 #[place] 0.41 10^3/uL 0.00 - 0.90 #Eos 0.11 10^3/uL 0.00 - 0.70 #Baso 0.02 10^3/uL 0.00 - 0.20 #Ig 0.01 10^3/uL 0.00 - 0.10 #NRBC 0.00 10^3/uL 0.00 - 0.00 Manual Diff NOT INDICATED RBC Morph NOT INDICATED Comprehensive Metabolic Panel 12/03/2020 [facility] [address] [place], [place] [id number] [phone] Comprehensive Metabo (SEE NOTE) 2 Sodium 140 [...] Normal Procedures Date Code Description Status 11/07/2020 51601 Echocardiogram, Complete Complet ed 11/07/2020 75649 Multistage Exercise Stress Test Completed 11/07/2020 65977 EKG Completed Encounters Type Date Location Provider Dx Diagnosis Office Visit 12/18/2020 1:15p [facility] Dylan [facility] M[facility] R55 Syncope and collapse Office Visit 11/07/2020 2:15p [facility] Dylan [facility] R55 Syncope and collapse I34.0 Nonrheumatic mitral (valve) insufficiency I25.9 Chronic ischemic heart disea se, unspecified I49.49 Other premature depolarizati on Assessments Date Code Description Provider 12/18/2020 R55 Syncope and collapse Dylan de [facility] 11/07/2020 R55 Syncope and collapse Dylan [facility] 11/07/2020 I34.0 Nonrheumatic mitral (valve) insu fficiency Dylan [facility] 11/07/2020 I25.9 Chronic ischemic heart disease, unspecified Dylan [facility] 11/07/2020 I49.49 Other premature depolarization M jimy [facility] Plan of Treatment Future Appointment(s):* 01/24/2021 1:45 pm - Dylan Shi [facility] at [facility] Referrals Refer to Dr Reason for Referral Status Appt Date Dylan Shi M.D. Created [address] [place] [address] [phone] Dylan Shi M.D. Created [address] [place] [address] [phone]
--- OUTSIDE RECORDS SUMMARY | 2020-12-27 14:48 | CCD | Summary of Care ---
Author Author [facility] Organization [facility] Address Unknown Phone Unavailable Care Team Providers Care Circular Knife Cutter Machine Name Role Phone Pcp, No PCP Unavailable Reason for Visit * Reason Comments Follow-up discuss fertility treatment s Encounter Details Care Team Description Date Type Department Isabel Hart MD [address] [place] [address] Prolactinoma (Primary Dx) 11/22/2020 Telemedicine [facility] Urology [address] [place] [address], [place] [address] Allergies No Known Allergiesdocumented as of this encounter (statuses as of 11/22/2020) Medications End Date Status Medication Sig Dispensed Refills Start Date Active Acetaminophen 500 MG Oral Take 500 mg 0 Tablet (TYLENOL) by mouth every 6 (six) hours as needed for Pain Active Testosterone 10 MG/ACT Place onto 0 (2%) Transdermal Gel the skin (FORTESTA) daily 2 pumps per day Active Ivermectin 1 % External Apply 0 Cream topically Active Chorionic Gonadotropin Inject 1,000 2 vial 0 14676 UNIT Intramuscular Units into 0 Solution Reconstituted the muscle 3 (three) times a week Inject 1000 units on Thursday, Thursday and Thursday, Max Daily Dose: 1,000 Units Additional Information Patient not taking. Reported on 11/22/2020 11:28 AM Active Syringe/Needle (Disp) 22G Use as 30 each 2 X 1-1/2" 1 ML (UltiCare directed. 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 documented as of this encounter Last Filed Vital Signs Reading Time Taken Comments Vital Sign - - Blood Pressure - - Pulse - - Temperature - - Respiratory Rate - - Oxygen Saturation - - Inhaled Oxygen Concentration 93 kg (205 lb) 11/22/2020 11:26 AM EST per pt Weight 172.7 cm (5' 7.99") 11/22/2020 11:26 AM EST Height 31.18 11/22/2020 11:26 AM EST Body Mass Index documented in this encounter Progress Notes * Isabel Hart MD - 11/22/2020 12:30 PM EST This is a29y.o male with primary(primary/secondary) infertility. His partner is26y.o. with primary(primary/secondary) infertility. Has been trying for 3 mo.She is in [place], trying to come to [place] in 2 mo. He was born full term with normally descended testes. Denies trauma or infection or STD. Normal onset of puberty. Denies trouble with respiratory infections or anosmia. No exposures to chemo/radiation/pesticides/or excessive heat. Normal erectile function with antegrade ejaculation. No use of lubricants. 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 Would stop fortesta, start HCGM/W/F. Fernando No Known Allergies. Objective: Physical Exam Constitutional: He appearswell-developed. Head:Normocephalic. Eyes:No scleral icterus. Pulmonary/Chest: Nostridor. General: No edema. Neurological: He isalert. Psychiatric: He has anormal mood and affect. Lab Review: 47 XXY Neg C.F. Prolactin 20.8 PsA 0.3 45% Assessment: 1. Infertility male Miscellaneous Lab Test (Send Out) Miscellaneous Lab Test (Send Out) Hematocrit PSA Prolactin 2. Kleinfelters 3. Prolactinoma Plan: 1.Endocrine eval for prolactin to 20.8 (w/u pending due to covid). 2. Stop fortesta, start HCG M/W/F.No c/o while on HCG shots. 3. F/U with labs/SA 3 mo. Aware that there is a small chance of finding sperm on future TESE/Open biopsy. If sperm present, would require ICSI. Partner eval is recommended. May need donor sperm (combo of T-replacment and likely Kleinfelters). 4. Avoid heat exposures. 5. Anti-oxidants. This is a telemedical visit. The patient was informed of the risks including sec urity breech, technological failure, inability to perform a comprehensive physic al exam which could delay or prevent an accurate diagnosis, and potential compli cations from treatment decisions rendered over a telemedical platform. The patie nt understands and consented to the use of tele-health services. video documented in this encounter Plan of Treatment Order Schedule Name Type Priority Associated Diag noses Expected: 12/23/2020, Expires: 1 Andrology Pathology and Routine Prolactinoma Cytology Expected: 12/23/2020, Expires: 1 PSA Diagnostic Lab Routine Prolactinoma 1 Occurrences starting 11/22/2020 until 05/22/2021 Testosterone total male Lab Routine Prolac tinoma 1 Occurrences starting 11/22/2020 until 05/22/2021 Hematocrit Lab Routine Prolactinoma Health Maintenance Due Date Last Done Comments MMR Vaccines (1 of - 1991 Standard series) Varicella Vaccines (1 of 1991 2 - 2-dose childhood series) DTaP,Tdap,and Td Vaccines 1997 (1 - Tdap) HIV Screening 2003 Influenza Vaccine 08/09/2020 Pneumococcal Vaccine: 65+ 2055 Years (1 of 1 - PPSV23) HIB Vaccines Aged Out No longer eligible based on patient's age to complete this topic Hepatitis A Vaccines Aged Out No longer eligibl e based on patient's age to complete this topic Hepatitis B Vaccines Aged Out No longer eligibl e based on patient's age to complete this topic IPV Vaccines Aged Out No longer eligible based on patient's age to complete this topic Pneumococcal Vaccine: Aged Out No longer eligib le based on patient's age to Pediatrics (0 to 5 Years) complete this topic and At-Risk Patients (6 to 64 Years) documented as of this encounter Results Not on filedocumented in this encounter Visit Diagnoses Diagnosis Prolactinoma - Primary Benign neoplasm of pituitary gland and craniopharyngeal duct (pouch) documented in this encounter
--- OUTSIDE RECORDS SUMMARY | 2020-12-27 14:48 | CCD | Continuity of Care Document ---
Author Author [facility] Organization Unknown Address [address] [place] [address] Phone [phone] Care Team Providers Care Ict Developer Name Role Phone [facility] AUTM [phone] Benito Willett Bola AUTM [phone] [facility] AUTM [phone] Social History Type Date Description Comments Sex [...] H/L Range Note CBC W/Automated Diff 12/03/[address] [id number] [phone] CBC W/Automated Diff (SEE NOTE) 1 WBC [...] Lymph 48.2 % High 25.0 - 40.0 [place] 7.8 % 3.0 - 8.0 Eos 2.1 % 0.0 - 7.0 Baso 0.4 % 0.0 - 2.0 %Ig 0.2 % High 0.0 - 0.0 %NRBC 0.0 % 0.0 - 0.0 #Neut 2.16 10^3/uL 2.00 - 6.90 #Lymph 2.52 10^3/uL 0.60 - 3.40 #[place] 0.41 10^3/uL 0.00 - 0.90 #Eos 0.11 10^3/uL 0.00 - 0.70 #Baso 0.02 10^3/uL 0.00 - 0.20 #Ig 0.01 10^3/uL 0.00 - 0.10 #NRBC 0.00 10^3/uL 0.00 - 0.00 Manual Diff NOT INDICATED RBC Morph NOT INDICATED Comprehensive Metabolic Panel 12/03/2020 [facility] [address] [place], [place] [id number] [phone] Comprehensive Metabo (SEE NOTE) 2 Sodium 140 [...] Normal Procedures Date Code Description Status 11/07/2020 61021 Echocardiogram, Complete Complet ed 11/07/2020 10694 Multistage Exercise Stress Test Completed 11/07/2020 79673 EKG Completed Encounters Type Date Location Provider [...] premature depolarization [facility] Referrals Refer to Reason for Referral Status Appt Date Dylan Shi M.D. Created [address] [place] [address] [phone] Dylan Shi M.D. Created [address] [place] [address] [phone]
--- OUTSIDE RECORDS SUMMARY | 2020-12-27 14:49 | CCD ---
Continuity of Care Document (CCD) Created on: 11/07/2020 Chivo Bae External Reference #: [id number] : 1990 Sex: Male Author Author [facility] Organization Unknown Address [address] [place] [address] Phone [phone] Care Team Providers Care Audio Production Engineer Name Role Phone Julian Collins [facility] AUTM [phone] Julian Troherson [facility] AUT [phone] Social History Type Date Description Comments Sex [...] /min O2 % BldC Oximetry 98 % Plan of Treatment Future Appointment(s):* 12/24/2020 2:00 pm - Dylan [facility] at [facility] Referrals Refer to Dr Reason for Referral Status Appt Date Dylan Shi M.D. Created [address] [place] [address] [phone] Dylan Shi M.D. Created [address] [place] [address] [phone]
--- OUTSIDE RECORDS SUMMARY | 2020-12-27 14:49 | CCD | Continuity of Care Document ---
Author Author Chivo KNOWLES M.D. Organization Unknown Address [facility] U[facility] Center [address] [place] [address] Phone [phone] Care Team Providers Care Pattern Weaver Name Role Phone [facility] AUT Unavailable Problems Description No Information Available Social History Type Date Description Comments Sex Unknown Tobacco Use Start: Unknown Never Smoked Cigarettes Tobacco Use Start: Unknown Never Smoked Cigars Tobacco Use Start: Unknown Never Smoked A Pipe Tobacco Use Start: Unknown Never Used Smokeless Tobacco ETOH Use Occasionally consumes alcohol Tobacco Use Start: Unknown Patient has never smoked Recreational Drug Use Denies Drug Use Allergies, Adverse Reactions, Alerts Active Allergies Reaction Severity Comments Date Shellfish-Derived Products Difficulty swallowing, Hives Severe 09/07/2020 NKEA 09/07/2020 Sulfa Antibiotics unknown 11/14/2020 Macrobid unknown 11/14/2020 Aspirin unknown 11/14/2020 Primaquine unknown 11/14/2020 Inactive Allergies NKDA 09/07/2020 Medications Active Medications SIG Qnty Indications Ordering Provide r Date Eliquis 5mg Tablets 1 tab by mouth twice a day 60tabs Jyoti Lombardo MD Trazodone HCL 50mg Tablets 1 tab by mouth daily at bedtime Unknown Tylenol Extra Strength 500mg Table ts take 2 tablets by mouth every 8 as needed for pain Un known Escitalopram Oxalate 20mg Tablets 1 by mouth every day Unknown Cetirizine HCL 10mg Tablets 1 by mouth every day Unknown Gabapentin 100mg Capsules 1-2 tab by mouth up to three times a day for pain Unknown Immunizations Description No Information Available Vital Signs Date Vital Result Comment 11/14/2020 1:36pm BP Systolic 133 mmHg BP Diastolic 75 mmHg Heart Rate 79 /min Respiratory Rate 20 /min O2 % BldC Oximetry 97 % 09/07/2020 2:49pm BP Systolic 110 mmHg BP Diastolic 82 mmHg Heart Rate 87 /min Body Temperature 97.8 F Respiratory Rate 16 /min O2 % BldC Oximetry 98 % Weight 200.25 lb Weight 90.833 kg Height 68 inches 5'8" BMI (Body Mass Index) 30.4 kg/m2 BSA (Body Surface Area) 2.04 m2 Results Description No Information Available Procedures Date Code Description Status 09/07/2020 14398 Admin Patient Focused Health Ris k Assessment Instrument Completed 09/07/2020 73316 Brief Emotional/Beha v Assessment W/ Scoring Doc Per Standard Inst Completed Medical Devices Description No Information Available Encounters Type Date Location Provider Dx Diagnosis Office Visit 11/14/2020 1:00p [facility] U[facility] Center Benito Knowles M.D. R31.0 Gross hematuria M54.5 Low back pain N53.12 Painful ejaculation Assessments Date Code Description Provider 11/14/2020 R31.0 Gross hematuria Domingo Shepard 11/14/2020 M54.5 Low back pain Domingo Shepard 11/14/2020 N53.12 Painful ejaculation Benito gregg M.D. 09/07/2020 Z00.00 Encounter for genera l adult medical examination without abnormal findings Jyoti Lombardo MD 09/07/2020 F32.89 Other specified depressive episo dorita Jyoti Lombardo MD 09/07/2020 I82.409 Acute embolism and t hrombosis of unspecified deep veins of unspecified lower extremity Jyoti Lombardo MD Plan of Treatment Future Appointment(s):* 02/05/2021 3:00 pm - Jyoti Lombardo MD at [facility] 11/14/2020 - Benito Knowles M.D.* R31.0 Gross hematuria* Comments:* Patient presents to the clinic today for evaluation and management of hematuria. Physical examination done in the office today was unremarkable from a standpoint.Urinalysis done in the office was positive for blood, otherwise unremarkable. Result was reviewed with the patient. CT of the abdomen and pelvis on 08/15/20 revealed trace simple appearing free fluid in the right lower quadrant and partially imaged mildly prominent right hilar lymph node. Result was reviewed with the patient. Anatomy and functions of male genitourinary system were reviewed with the patient.Pathophysiology of gross hematuria was reviewed with the patient at length.Different types of hematuria including microscopic hematuria and gross hematuria were reviewed.Various treatment modalities including cystoscopy with retrograde pyelogram were discussed with the patient at length.We will schedule this patient for cystoscopy with bilateral retrograde pyelogram and possible ureteroscopy. Pre and post procedure guidelines were explained to the patient.Patient was advised to call or RTC if he develops any new concerns or complaints.Patient verbalized understanding and agreed to the care plan. All of his questions were answered. Follow up to be decided after the procedure is done. * M54.5 Low back pain* Comments:* As above. * N53.12 Painful ejaculation* Comments:* As above. Functional Status Description No Information Available Mental Status Description No Information Available Referrals Description No Information Available
--- OUTSIDE RECORDS SUMMARY | 2020-12-27 14:49 | CCD ---
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 89710371689709961 Problem Rash R21 Active [id number] Problem Klinefelter syndrome Q98.4 Active 79091941 ALLERGIES Allergen (clinical drug ingredient) Drug/Non Drug Allergy do cumented on EMR Reaction Allergy Type Onset Date Status shellfish oral edema Non Drug Allergy 11/22/2019 Active primaquine Primaquine Phosphate([facility] Code:[address]-74) Hives Drug Allergy 11/22/2019 Active aspirin Aspirin([place] Code:[address]-69) Hives Drug Allergy Active nitrofurantoin, macrocrystals / nitrofurantoin, monohy drate Macrobid(ND Code:[address]-44) Hives Drug Allergy 11/22/2019 Active Sulfa (for allergy use only) unknown Drug Allergy 2019 Active ENCOUNTERS from 1990 to 2020-10-31 Encounter Location Date Provider Diagnosis [facility] Dermatology [address] [facility] [address] [place] [address] Oct, [facility] Encounter for injection educ ation Z71.89 IMMUNIZATIONS No Information SOCIAL HISTORY Tobacco Use: Social History Observation Description Date Details (start date - stop date) Never Smoker Sex Assigned At : Social History Observation Description Sex Assigned At Unknown Education: Question Answer Notes Level of Education: Finished High School Language: Question Answer Notes Languages spoken: Czech [facility]: Question Answer Notes [employer] 21 [employer] Sexual Hx: Question Answer Notes Had sex in the last 12 months (vaginal, oral, or anal)? Yes with Women only Alcohol Screening: Question Answer Notes Did you have a drink containing alcohol in the past year? Ye s Points 1 Interpretation Negative How many drinks did you have on a typica l day when you were drinking in the past year? 1 or 2 (0 points) How often did you have a drink containing alcohol in t he past year? Monthly or less (1 point) Tobacco Use: Question Answer Notes Are you a: never smoker REASON FOR REFERRAL No Information VITAL SIGNS Weight 206.8 lbs Oct, Height 68 in Oct, BMI 31.44 kg/m2 Oct, Blood pressure systolic 122 mm Hg Oct, Blood pressure diastolic 78 mm Hg Oct, MEDICATIONS Medication SIG (Take, Route, Frequency, Duration) Notes Start Da te End Date Status Xolair 150 MG/ML 300mg (2ml) Subcutaneous every 4 weeks for 30 Days Active Cetirizine HCl 10 MG 1 tablet Orally qid for 30 day(s) Active Eliquis Active Betamethasone Dipropionate Aug 0.05 % 1 application Ex ternally Twice a day for 30 days Active PROCEDURES No Information RESULTS No Results REASON FOR VISIT INJECTION XOLAIR MEDICAL (GENERAL) HISTORY Type Description Date Medical History klinefelter syndrome Medical History hx filariasis Medical History clot left calf Medical History Blood in urine 1 week ago Surgical History No Surgical history information Goals Section No Information Health Concerns No Information MEDICAL EQUIPMENT No Information MENTAL STATUS No Information FUNCTIONAL STATUS No Information ASSESSMENTS Encounter Date Diagnosis Assessment Notes Treatment Notes Treatm ent Clinical Notes Oct, Encounter for injection education (ICD-10 - Z71. 89) Walked patient's through two injections and monitored patients for 70 minutes. Informed patient about possible swelling and allergic reaction to medication, trouble breathing and lip swelling, tingling of tongue or mouth, rash - patient and aware. Patient with minimal dizziness, did not eat this morning, resolved after drinking water - no problems prior to discharge from clinic. 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 Follow up with Dr. Curtis in 2 weeks to assess response and see about future injections in clinic vs. at home. Exp: Jun 2021 Lot #: [id number] PLAN OF TREATMENT Treatment Notes Assessment Notes Clinical Notes Encounter for injection education Walked patient's through two injections and monitored patients for 70 minutes. Informed patient about possible swelling and allergic reaction to medication, trouble breathing and lip swelling, ting ling of tongue or mouth, rash - patient and aware. 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 Follow up with Dr. Curtis in 2 weeks to assess response and see about future injections in clinic vs. at home.Exp: Jun 2021 Lot #: [id number] Next Appt Details 2 Weeks for follow up Xolair injection R shon: Provider Name:Ross Curtis, 11-15 11:00:00 AM, [address] [facility], [place], [address], Insurance Providers Payer Name Payer Address Payer Phone Insured Name Patient Relati onship to Insured Coverage Start Date Coverage End Date [facility] [employer] [address] [place] [address] MARVIN LEAHY self
--- OUTSIDE RECORDS SUMMARY | 2020-12-27 14:49 | CCD | Continuity of Care Document ---
Author Author [facility] Organization Unknown Address [address] [place] [address] Phone [phone] Care Team Providers Care Trainer Name Role Phone Julian Collins [facility] AUTM Julian Troherson [facility] AUT [phone] Social History Type Date Description Comments Sex [...] /min O2 % BldC Oximetry 98 % Procedures Date Code Description Status 11/07/2020 04816 Echocardiogram, Complete Complet ed 11/07/2020 27336 Multistage Exercise Stress Test Completed 11/07/2020 27319 EKG Completed Encounters Type Date Location Provider Dx Diagnosis Office Visit 11/07/2020 2:15p [facility] Dylan Shi M[facility] R55 Syncope [...] M.D., P.C[facility] Plan of Treatment Future Appointment(s):* 12/24/2020 2:00 pm - Dylan [facility] at [facility] Referrals Refer to Reason for Referral Status Appt Date Dylan Shi M.D. Created [address] [place] [address] [phone] Dylan Shi M.D. Created [address] [place] [address] [phone]
--- OUTSIDE RECORDS SUMMARY | 2020-12-27 14:49 | CCD ---
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 81784276598879333 Problem Rash R21 Active 166132206 Problem Klinefelter syndrome Q98.4 Active 00671120 ALLERGIES Allergen (clinical drug ingredient) Drug/Non Drug Allergy do cumented on EMR Reaction Allergy Type Onset Date Status shellfish oral edema Non Drug Allergy 11/22/2019 Active primaquine Primaquine Phosphate([facility] Code:[address]-90) Hives Drug Allergy 11/22/2019 Active aspirin Aspirin([facility] Code:[address]-40) Hives Drug Allergy Active nitrofurantoin, macrocrystals / nitrofurantoin, monohy drate Macrobid(ND Code:[address]-49) Hives Drug Allergy 11/22/2019 Active Sulfa (for allergy use only) unknown Drug Allergy 2019 Active ENCOUNTERS from 1990 to 2020-11-05 Encounter Location Date Provider Diagnosis [facility] Dermatology [address] [facility] [address] [place] [address] 17 Oct, 2020 Ross Curtis Urticaria L50.9 IMMUNIZATIONS No Information SOCIAL HISTORY Tobacco Use: Social History Observation Description Date Details (start date - stop date) Never Smoker Sex Assigned At : Social History Observation Description Sex Assigned At Unknown Education: Question Answer Notes Level of Education: Finished High School Language: Question Answer Notes Languages spoken: Colombian L[employer]: Question Answer Notes [employer] Sexual Hx: Question Answer Notes Had sex [...] REASON FOR REFERRAL No Information VITAL SIGNS No information MEDICATIONS Medication SIG (Take, Route, Frequency, Duration) [...] Information RESULTS No Results REASON FOR VISIT Chronic idiopathic cold urticaria MEDICAL (GENERAL) HISTORY Type Description Date Medical [...] Treatment Notes Treatm ent Clinical Notes Oct, Urticaria (ICD-10 - L50.9) Very pleasant patient from [facility] presenting with a referral from Dr. Marie in infectious disease for suspected cold-induced urticaria. Cold stimulation test (CORPORATE COUNSELOR) today appears postive and patient does demonstrate some mild urticaria with exercise (ran laps around office). 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 He reports this improved his urticaria previously and seemed to improve it with last treatment. With [facility] being endemic for numerous parasites that may contirbute to urtcaria, this was not an unreasonable treatment. IgG4 for filiaria was negative, however, with a sensitivity of 80% and some difficulty detecting positives in individuals hailing from endemic areas, I repeated it at last visit and showed equivocal results (attached). I don't see a large risk to a one time treatment with ivermectin at this time. Continue to use topical mometasone. Zyrtec currently being used 6 times a day. I routinely use zyrtec 10mg qid but not six times a day. Will decrease to 4 times a day at this time. Xolair remains an option of this cannot be improved and IgE was elevated (129/100). Will order Xolair at this time. Given chronic cold induced urticaria and likely need for a biologic to manage the condition, patient should follow up with PCM to discuss profile and limitations. This patient should not be exposed to the cold for prolonged periods of time. Patient will return for Xolair injection. PLAN OF TREATMENT Treatment Notes Assessment Notes Clinical Notes Urticaria Very pleasant patien t from [facility] presenting with a referral from Dr. Marie in infectious disease for suspected cold-induced urticaria. Cold stimulation test (CORPORATE COUNSELOR) today appears postive and patient does demonstrate some mild urticaria with exercise (ran laps around office). 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 He reports this improved his urticaria previously and seemed to improve it with last treatment. With [facility] being endemic for numerous parasites that may contirbute to urtcaria, this was not an unreasonable treatment. IgG4 for filiaria was negative, however, with a sensitivity of 80% and some difficulty detecting positives in individuals hailing from endemic areas, I repeated it at last visit and showed equivocal results (attached). I don't see a large risk to a one time treatment with ivermectin at this time. Continue to use topical mometasone. Zyrtec currently being used 6 times a day. I routinely use zyrtec 10mg qid but not six times a day. Will decrease to 4 times a day at this time.Xolair remains an option of this cannot be improved and IgE was elevated (129/100). Will order Xolair at this time.Given chronic cold induced urticaria and likely need for a biologic to manage the condition, patient should follow up with PCM to discuss profile and limitations. This patient should not be exposed to the cold for prolonged periods of time.Patient will return for Xolair injection. Next Appt Details Provider Name:Ross Curtis, 11-15 11:00:00 AM, [address] [facility], [address] [place] [address], [place], [address], Insurance Providers Payer Name Payer Address Payer Phone Insured Name Patient Relati onship to Insured Coverage Start Date Coverage End Date [facility] [employer] [address] [place] [address] MARVIN LEAHY self
--- OUTSIDE RECORDS SUMMARY | 2020-12-27 14:49 | CCD ---
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 [id number] Problem Rash R21 Active 983237158 Problem Klinefelter syndrome Q98.4 Active 72819682 ALLERGIES Allergen (clinical drug ingredient) Drug/Non Drug Allergy do cumented on EMR Reaction Allergy Type Onset Date Status shellfish oral edema Non Drug Allergy 11/22/2019 Active primaquine Primaquine Phosphate([facility] Code:[address]-40) Hives Drug Allergy 11/22/2019 Active aspirin Aspirin([facility] Code:[address]-70) Hives Drug Allergy Active nitrofurantoin, macrocrystals / nitrofurantoin, monohy drate Macrobid([facility] Code:[address]-44) Hives Drug Allergy 11/22/2019 Active Sulfa (for allergy use only) unknown Drug Allergy 2019 Active ENCOUNTERS from 1990 to 2020-11-20 Encounter Location Date Provider Diagnosis [facility] Dermatology [address] [facility] [address] [place] [address] Nov, Ross Kirsten Urticaria L50.9 and Hyperpig mentation L81.9 IMMUNIZATIONS No Information SOCIAL HISTORY Tobacco Use: Social History Observation Description Date Details (start date - stop date) Never Smoker Sex Assigned At : Social History Observation Description Sex Assigned At Unknown Education: Question Answer Notes Level of Education: Finished High School Language: Question Answer Notes Languages spoken: Sierra Leonean Synagogue: Question Answer Notes [employer] Sexual Hx: Question Answer Notes Had sex [...] FOR REFERRAL No Information VITAL SIGNS Weight 210 lbs Nov, Height 68 in Nov, BMI 31.93 kg/m2 Nov, Blood pressure systolic 113 mm Hg Nov, Blood pressure diastolic 75 mm Hg Nov, MEDICATIONS Medication SIG (Take, Route, Frequency, Duration) Notes Start Da te End Date Status Cetirizine HCl 10 MG 1 tablet Orally qid for 30 day(s) Active Xolair 150 MG/ML 300mg (2ml) Subcutaneous every 4 weeks for 30 Days Active Eliquis Active Ivermectin 3 MG 3 tablets Orally once after completing bloodwork for 30 Days Active Betamethasone Dipropionate Aug 0.05 % 1 application Ex ternally Twice a day for 30 days Active PROCEDURES No Information RESULTS No Results REASON FOR VISIT F/U AFTER INJECTION MEDICAL (GENERAL) HISTORY Type Description Date Medical [...] Notes Treatment Notes Treatm ent Clinical Notes Nov, Urticaria (ICD-10 - L50.9) Much improved on Xolair. Continue at this time and see abck in 8 weeks. Nov, Hyperpigmentation (ICD-10 - L81.9) slowly improving PLAN OF TREATMENT Medication Medication Name Sig Start Date Stop Date Cetirizine HCl 10 MG 1 tablet Orally qid for 30 day(s) Ivermectin 3 MG 3 tablets Orally once after completing bloodwork for 30 Days Xolair 150 MG/ML 300mg (2ml) Subcutaneous every 4 weeks for 30 D ays Betamethasone Dipropionate Aug 0.05 % 1 application Ex ternally Twice a day for 30 days Treatment Notes Assessment Notes Clinical Notes Urticaria Much improved on Xol air. Continue at this time and see abck in 8 weeks. Hyperpigmentation slowly improving Next Appt Details Provider Name:Ross Curtis, 12-25 01:00:00 PM, [address] [place] [address], [address] [place] [address], [place], [place], [id number], Insurance Providers Payer Name Payer Address Payer Phone Insured Name Patient Relati onship to Insured Coverage Start Date Coverage End Date [facility] [employer] [address] [place] [address] MARVIN LEAHY self
--- OUTSIDE RECORDS SUMMARY | 2020-12-27 14:49 | CCD | Continuity of Care Document ---
Author Author [facility] Organization Unknown Address [address] [place] [address] Phone [phone] Care Team Providers Care Supervisor Maintenance Name Role Phone [facility] Elinor Austin [facility] AUT Unavailable Problems Description No Information [...] BSA (Body Surface Area) 2.04 m2 Results Test Acquired Date Facility Test Result H/L Range Note Inhouse Ua 11/14/2020 In Office [facility] Color yellow Ua Appearance cloudy Spec [place] 1.010 Ua PH Test Strip 8 Leukocytes neg Ua Nitrate neg Ua Protein trace Inhouse Glucose neg Ua Ketones neg Urobilinogen neg Ua Bilirubin neg Blood trace Procedures Date Code Description Status 09/07/2020 21638 Admin Patient Focused Health Ris k Assessment Instrument Completed 09/07/2020 11468 Brief Emotional/Beha v Assessment W/ Scoring Doc Per Standard Inst Completed Medical Devices Description No Information Available Encounters Type Date Location Provider Dx Diagnosis Office Visit 11/14/2020 1:00p [facility] Benito Willett M.D. R31.0 Gross hematuria M54.5 Low back [...] 3:00 pm - Jyoti Lombardo MD at [facility] 11/14/2020 - Benito Willett M.D.* R31.0 Gross hematuria* Comments:* Patient presents [...]
--- OUTSIDE RECORDS SUMMARY | 2020-12-27 14:51 | CCD ---
Author Author [facility] Organization [facility] Address Unknown Phone Unavailable Care Team Providers Care Test Fixture Assembler Name Role Phone Benjy BANG Unavailable Unavailable KIARABenjy MILLER MD Unavailable Unavailable KIARABenjy MILLER MD Unavailable Unavailable KIARABenjy MILLER MD Unavailable Unavailable KIARABenjy MILLER MD Unavailable Unavailable KIARABenjy MILLER MD Unavailable Unavailable KIARABenjy MILLER MD Unavailable Unavailable KIARABenjy MILLER MD Unavailable Unavailable KIARABenjy MILLER MD Unavailable Unavailable KIARABenjy MILLER MD Unavailable Unavailable KIARABenjy MILLER MD Unavailable Unavailable KIARABenjy MILLER MD Unavailable Unavailable KIARABenjy MILLER MD Unavailable Unavailable KIARABenjy MILLER MD Unavailable Unavailable KIARABenjy MILLER MD Unavailable Unavailable KIARABenjy MILLER MD Unavailable Unavailable KIARABenjy MILLER MD Unavailable Unavailable KIARABenjy MILLER MD Unavailable Unavailable KIARA, Benjy Hall MD Unavailable Unavailable KIARABenjy MILLER MD Unavailable Unavailable KIARA, Benjy Hall MD Unavailable Unavailable KIARABenjy MILLER MD Unavailable Unavailable KIARABenjy MILLER MD Unavailable Unavailable KIARA, Benjy Hall MD Unavailable Unavailable KIARA, Benjy Hall MD Unavailable Unavailable KIARA, Benjy Hall MD Unavailable Unavailable KIARA, Benjy Hall MD Unavailable Unavailable KIARA, Benjy Hall MD Unavailable Unavailable KIARA, Benjy Hall MD Unavailable Unavailable KIARA, Benjy Hall MD Unavailable Unavailable KIARA, Benjy Hall MD Unavailable Unavailable KIARA, Benjy Hall MD Unavailable Unavailable KIARA, Benjy Hall MD Unavailable Unavailable KIARA, Benjy Hall MD Unavailable Unavailable KIARA, Benjy Hall MD Unavailable Unavailable KIARA, Benjy Hall MD Unavailable Unavailable KIARA, Benjy Hall MD Unavailable Unavailable KIARA, Benjy Hall MD Unavailable Unavailable KIARA, Benjy Hall MD Unavailable Unavailable KIARA, Benjy Hall MD Unavailable Unavailable KIARA, Benjy Hall MD Unavailable Unavailable KIARA, Benjy Hall MD Unavailable Unavailable KIARA, Benjy Hall MD Unavailable Unavailable KIARA, Benjy Hall MD Unavailable Unavailable KIARA, Benjy Hall MD Unavailable Unavailable KIARA, Benjy Hall MD Unavailable Unavailable KIARA, Benjy Hall MD Unavailable Unavailable KIARA, Benjy Hall MD Unavailable Unavailable KIARA, Benjy Hall MD Unavailable Unavailable KIARA, Benjy Hall MD Unavailable Unavailable KIARA, Benjy Hall MD Unavailable Unavailable KIARA, Benjy Hall MD Unavailable Unavailable KIARA, Benjy Hall MD Unavailable Unavailable KIARA, Benjy Hall MD Unavailable Unavailable KIARA, Benjy Hall MD Unavailable Unavailable KIARA, Benjy Hall MD Unavailable Unavailable KIARA, C Isabel MD Unavailable Unavailable KIARA, Benjy Hall MD Unavailable Unavailable KIARA, Benjy Hall MD Unavailable Unavailable JAZMIN, MAQBOOL DYLAN MD Unavailable Unavailable JAZMIN, MAQBOOL DYLAN MD Unavailable Unavailable JAZMIN, MAQBOOL DYLAN MD Unavailable Unavailable JAZMIN, MAQBOOL DYLAN MD Unavailable Unavailable JAZMIN, MAQBOOL DYLAN MD Unavailable Unavailable JAZMIN, MAQBOOL DYLAN MD Unavailable Unavailable JAZMIN, MAQBOOL DYLAN MD Unavailable Unavailable JAZMIN, MAQBOOL DYLAN MD Unavailable Unavailable JAZMIN, MAQBOOL DYLAN MD Unavailable Unavailable JAZMIN, MAQBOOL DYLAN MD Unavailable Unavailable JAZMIN, MAQBOOL DYLAN MD Unavailable Unavailable JAZMIN, MAQBOOL DYLAN MD Unavailable Unavailable JAZMIN, MAQBOOL DYLAN MD Unavailable Unavailable JAZMIN, MAQBOOL DYLAN MD Unavailable Unavailable JAZMIN, MAQBOOL DYLAN MD Unavailable Unavailable JAZMIN, MAQBOOL DYLAN MD Unavailable Unavailable JAZMIN, MAQBOOL DYLAN MD Unavailable Unavailable JAZMIN, MAQBOOL DYLAN MD Unavailable Unavailable JAZMIN, MAQBOOL DYLAN MD Unavailable Unavailable JAZMIN, MAQBOOL DYLAN MD Unavailable Unavailable JAZMIN, MAQBOOL DYLAN MD Unavailable Unavailable JAZMIN, MAQBOOL DYLAN MD Unavailable Unavailable JAZMIN, MAQBOOL DYLAN MD Unavailable Unavailable JAZMIN, MAQBOOL DYLAN MD Unavailable Unavailable JAZMIN, MAQBOOL DYLAN MD Unavailable Unavailable JAZMIN, MAQBOOL DYLAN MD Unavailable Unavailable JAZMIN, MAQBOOL DYLAN MD Unavailable Unavailable JAZMIN, MAQBOOL DYLAN MD Unavailable Unavailable JAZMIN, MAQBOOL DYLAN MD Unavailable Unavailable JAZMIN, MAQBOOL DYLAN MD Unavailable Unavailable JAZMIN, MAQBOOL DYLAN MD Unavailable Unavailable JAZMIN, MAQBOOL DYLAN MD Unavailable Unavailable JAZMIN, MAQBOOL DYLAN MD Unavailable Unavailable JAZMIN, MAQBOOL DYLAN MD Unavailable Unavailable JAZMIN, MAQBOOL DYLAN MD Unavailable Unavailable JAZMIN, MAQBOOL DYLAN MD Unavailable Unavailable JAZMIN, MAQBOOL DYLAN MD Unavailable Unavailable JAZMIN, MAQBOOL DYLAN MD Unavailable Unavailable JAZMIN, MAQBOOL DYLAN MD Unavailable Unavailable JAZMIN, MAQBOOL DYLAN MD Unavailable Unavailable JAZMIN, MAQBOOL DYLAN MD Unavailable Unavailable JAZMIN, MAQBOOL DYLAN MD Unavailable Unavailable JAZMIN, MAQBOOL DYLAN MD Unavailable Unavailable JAZMIN, MAQBOOL DYLAN MD Unavailable Unavailable JAZMIN, MAQBOOL DYLAN MD Unavailable Unavailable JAZMIN, MAQBOOL DYLAN MD Unavailable Unavailable JAZMIN, MAQBOOL DYLAN MD Unavailable Unavailable JAZMIN, MAQBOOL DYLAN MD Unavailable Unavailable JAZMIN, MAQBOOL DYLAN MD Unavailable Unavailable JAZMIN, MAQBOOL DYLAN MD Unavailable Unavailable JAZMIN, MAQBOOL DYLAN MD Unavailable Unavailable JAZMIN, MAQBOOL DYLAN MD Unavailable Unavailable JAZMIN, MAQBOOL DYLAN MD Unavailable Unavailable JAZMIN, MAQBOOL DYLAN MD Unavailable Unavailable JAZMIN, MAQBOOL DYLAN MD Unavailable Unavailable JAZMIN, MAQBOOL DYLAN MD Unavailable Unavailable JAZMIN, MAQBOOL DYLAN MD Unavailable Unavailable JAZMIN, MAQBOOL DYLAN MD Unavailable Unavailable JAZMIN, MAQBOOL DYLAN MD Unavailable Unavailable JAZMIN, MAQBOOL DYLAN MD Unavailable Unavailable JAZMIN, MAQBOOL DYLAN MD Unavailable Unavailable JAZMIN, MAQBOOL DYLAN MD Unavailable Unavailable JAZMIN, MAQBOOL DYLAN MD Unavailable Unavailable JAZMIN, MAQBOOL DYLAN MD Unavailable Unavailable JAZMIN, MAQBOOL DYLAN MD Unavailable Unavailable JAZMIN, MAQBOOL DYLAN MD Unavailable Unavailable JAZMIN, MAQBOOL DYLAN MD Unavailable Unavailable JAZMIN, MAQBOOL DYLAN MD Unavailable Unavailable JAZMIN, MAQBOOL DYLAN MD Unavailable Unavailable JAZMIN, MAQBOOL DYLAN MD Unavailable Unavailable JAZMIN, MAQBOOL DYLAN MD Unavailable Unavailable JAZMIN, MAQBOOL DYLAN MD Unavailable Unavailable JAZMIN, MAQBOOL DYLAN MD Unavailable Unavailable JAZMIN, MAQBOOL DYLAN MD Unavailable Unavailable Colon, Angel Unavailable Unavailable Colon, Angel Unavailable Unavailable Colon, Angel Unavailable Unavailable Colon, Angel Unavailable Unavailable Han, M Raquel GAMING DIRECTOR Unavailable Unavailable Han, M Raquel GAMING DIRECTOR Unavailable Unavailable Han, M Raquel GAMING DIRECTOR Unavailable Unavailable Han, M Raquel GAMING DIRECTOR Unavailable Unavailable Han, M Raquel GAMING DIRECTOR Unavailable Unavailable Han, M Raquel GAMING DIRECTOR Unavailable Unavailable Han, M Raquel GAMING DIRECTOR Unavailable Unavailable Han, M Raquel GAMING DIRECTOR Unavailable Unavailable Han, M Raquel GAMING DIRECTOR Unavailable Unavailable Han, M Raquel GAMING DIRECTOR Unavailable Unavailable Han, M Raquel GAMING DIRECTOR Unavailable Unavailable Han, M Raquel GAMING DIRECTOR Unavailable Unavailable Han, M Raquel GAMING DIRECTOR Unavailable Unavailable KASSIDY, CHICHI GAMING DIRECTOR Unavailable Unavailable KASSIDY, CHICHI GAMING DIRECTOR Unavailable Unavailable KASSIDY, CHICHI GAMING DIRECTOR Unavailable Unavailable KASSIDY, CHICHI GAMING DIRECTOR Unavailable Unavailable KASSIDY, CHICHI GAMING DIRECTOR Unavailable Unavailable KASSIDY, CHICHI GAMING DIRECTOR Unavailable Unavailable KASSIDY, CHICHI GAMING DIRECTOR Unavailable Unavailable COOK, B DENIA GAMING DIRECTOR Unavailable Unavailable COOK, B DENIA GAMING DIRECTOR Unavailable Unavailable COOK, B DENIA GAMING DIRECTOR Unavailable Unavailable COOK, B DENIA GAMING DIRECTOR Unavailable Unavailable COOK, B DENIA GAMING DIRECTOR Unavailable Unavailable COOK, B DENIA GAMING DIRECTOR Unavailable Unavailable COOK, B DENIA GAMING DIRECTOR Unavailable Unavailable COOK, B DENIA GAMING DIRECTOR Unavailable Unavailable COOK, B DENIA GAMING DIRECTOR Unavailable Unavailable COOK, B DENIA GAMING DIRECTOR Unavailable Unavailable COOK, B DENIA GAMING DIRECTOR Unavailable Unavailable COOK, B DENIA GAMING DIRECTOR Unavailable Unavailable COOK, B DENIA GAMING DIRECTOR Unavailable Unavailable COOK, B DENIA GAMING DIRECTOR Unavailable Unavailable COOK, B DENIA GAMING DIRECTOR Unavailable Unavailable COOK, B DENIA GAMING DIRECTOR Unavailable Unavailable COOK, B DENIA GAMING DIRECTOR Unavailable Unavailable COOK, B DENIA GAMING DIRECTOR Unavailable Unavailable COOK, B DENIA GAMING DIRECTOR Unavailable Unavailable COOK, B DENIA GAMING DIRECTOR Unavailable Unavailable COOK, B DENIA GAMING DIRECTOR Unavailable Unavailable COOK, B DENIA GAMING DIRECTOR Unavailable Unavailable COOK, B DENIA GAMING DIRECTOR Unavailable Unavailable COOK, B DENIA GAMING DIRECTOR Unavailable Unavailable COOK, B DENIA GAMING DIRECTOR Unavailable Unavailable COOK, B DENIA GAMING DIRECTOR Unavailable Unavailable COOK, B DENIA GAMING DIRECTOR Unavailable Unavailable COOK, B DENIA GAMING DIRECTOR Unavailable Unavailable COOK, B DENIA GAMING DIRECTOR Unavailable Unavailable COOK, B DENIA GAMING DIRECTOR Unavailable Unavailable COOK, B DENIA GAMING DIRECTOR Unavailable Unavailable COOK, B DENIA GAMING DIRECTOR Unavailable Unavailable COOK, B DENIA GAMING DIRECTOR Unavailable Unavailable COOK, B DENIA GAMING DIRECTOR Unavailable Unavailable COOK, B DENIA GAMING DIRECTOR Unavailable Unavailable COOK, B DENIA GAMING DIRECTOR Unavailable Unavailable COOK, B DENIA GAMING DIRECTOR Unavailable Unavailable COOK, B DENIA GAMING DIRECTOR Unavailable Unavailable COOK, B DENIA GAMING DIRECTOR Unavailable Unavailable COOK, B DENIA GAMING DIRECTOR Unavailable Unavailable COOK, B DENIA GAMING DIRECTOR Unavailable Unavailable COOK, B DENIA GAMING DIRECTOR Unavailable Unavailable COOK, B DENIA GAMING DIRECTOR Unavailable Unavailable COOK, B DENIA GAMING DIRECTOR Unavailable Unavailable COOK, B DENIA GAMING DIRECTOR Unavailable Unavailable COOK, B DENIA GAMING DIRECTOR Unavailable Unavailable COOK, B DENIA GAMING DIRECTOR Unavailable Unavailable COOK, B DENIA GAMING DIRECTOR Unavailable Unavailable COOK, B DENIA GAMING DIRECTOR Unavailable Unavailable COOK, B DENIA GAMING DIRECTOR Unavailable Unavailable COOK, B DENIA GAMING DIRECTOR Unavailable Unavailable COOK, B DENIA GAMING DIRECTOR Unavailable Unavailable COOK, B DENIA GAMING DIRECTOR Unavailable Unavailable COOK, B DENIA GAMING DIRECTOR Unavailable Unavailable COOK, B DENIA GAMING DIRECTOR Unavailable Unavailable COOK, B DENIA GAMING DIRECTOR Unavailable Unavailable COOK, B DENIA GAMING DIRECTOR Unavailable Unavailable COOK, B DENIA GAMING DIRECTOR Unavailable Unavailable COOK, B DENIA GAMING DIRECTOR Unavailable Unavailable COOK, B DENAI GAMING DIRECTOR Unavailable Unavailable COOK, B DENIA GAMING DIRECTOR Unavailable Unavailable COOK, B DENIA GAMING DIRECTOR Unavailable Unavailable COOK, B DENIA GAMING DIRECTOR Unavailable Unavailable COOK, B DENIA GAMING DIRECTOR Unavailable Unavailable Oscar Falanga, A Cari DENTAL RECEPTIONIST Unavailable Unavailable Homer Falanga, A Cari DENTAL RECEPTIONIST Unavailable Unavailable Oscar Falanga, A Cari DENTAL RECEPTIONIST Unavailable Unavailable Homer Falanga, A Cari DENTAL RECEPTIONIST Unavailable Unavailable Homer Falanga, A Cari DENTAL RECEPTIONIST Unavailable Unavailable Oscar Falanga, A Cari DENTAL RECEPTIONIST Unavailable Unavailable Oscar Falanga, A Cari DENTAL RECEPTIONIST Unavailable Unavailable Homer Falanga, A Cari DENTAL RECEPTIONIST Unavailable Unavailable Oscar Falanga, A Cari DENTAL RECEPTIONIST Unavailable Unavailable Homer Falanga, A Cari DENTAL RECEPTIONIST Unavailable Unavailable Homer Falanga, A Cari DENTAL RECEPTIONIST Unavailable Unavailable Homer Falanga, A Cari DENTAL RECEPTIONIST Unavailable Unavailable Oscar Falanga, A Cari DENTAL RECEPTIONIST Unavailable Unavailable Oscar Falanga, A Cari DENTAL RECEPTIONIST Unavailable Unavailable Oscar Falanga, A Cari DENTAL RECEPTIONIST Unavailable Unavailable Homer Falanga, A Cari DENTAL RECEPTIONIST Unavailable Unavailable Homer Falanga, A Cari DENTAL RECEPTIONIST Unavailable Unavailable Oscar Falanga, A Cari DENTAL RECEPTIONIST Unavailable Unavailable Oscar Falanga, A Cari DENTAL RECEPTIONIST Unavailable Unavailable Oscar Falanga, A Cari DENTAL RECEPTIONIST Unavailable Unavailable Oscar Falanga, A Cari DENTAL RECEPTIONIST Unavailable Unavailable Oscar Falanga, A Cari DENTAL RECEPTIONIST Unavailable Unavailable Homer Falanga, A Cari DENTAL RECEPTIONIST Unavailable Unavailable Homer Falanga, A Cari DENTAL RECEPTIONIST Unavailable Unavailable Oscar Falanga, A Cari DENTAL RECEPTIONIST Unavailable Unavailable Homer Falanga, A Cari DENTAL RECEPTIONIST Unavailable Unavailable Oscar Falanga, A Cari DENTAL RECEPTIONIST Unavailable Unavailable Homer Falanga, A Cari DENTAL RECEPTIONIST Unavailable Unavailable Oscar Falanga, A Cari DENTAL RECEPTIONIST Unavailable Unavailable Oscar Falanga, A Cari DENTAL RECEPTIONIST Unavailable Unavailable Bola WILLETT MD Unavailable Unavailable Bola WILLETT MD Unavailable Unavailable Bola WILLETT MD Unavailable Unavailable OBEN, T BENITO MD Unavailable Unavailable OBEN, T BENITO MD Unavailable Unavailable OBEN, T BENITO MD Unavailable Unavailable OBEN, T BENITO MD Unavailable Unavailable OBEN, T BENITO MD Unavailable Unavailable OBEN, T BENITO MD Unavailable Unavailable OBEN, T BENITO MD Unavailable Unavailable OBEN, T BENITO MD Unavailable Unavailable OBEN, T BENITO MD Unavailable Unavailable OBEN, T BENITO MD Unavailable Unavailable OBEN, T BENITO MD Unavailable Unavailable OBEN, T BENITO MD Unavailable Unavailable OBEN, T BENITO MD Unavailable Unavailable OBEN, T BENITO MD Unavailable Unavailable OBEN, T BENITO MD Unavailable Unavailable OBEN, T BENITO MD Unavailable Unavailable OBEN, T BENITO MD Unavailable Unavailable OBEN, T BENITO MD Unavailable Unavailable OBEN, T BENITO MD Unavailable Unavailable OBEN, T BENITO MD Unavailable Unavailable OBEN, T BENITO MD Unavailable Unavailable OBEN, T BENITO MD Unavailable Unavailable OBEN, T BENITO MD Unavailable Unavailable OBEN, T BENITO MD Unavailable Unavailable OBEN, T BENITO MD Unavailable Unavailable OBEN, T BENITO MD Unavailable Unavailable OBEN, T BENITO MD Unavailable Unavailable OBEN, T BENITO MD Unavailable Unavailable OBEN, T BENITO MD Unavailable Unavailable OBEN, T BENITO MD Unavailable Unavailable OBEN, T BENITO MD Unavailable Unavailable OBEN, T BENITO MD Unavailable Unavailable OBEN, T BENITO MD Unavailable Unavailable OBEN, T BENITO MD Unavailable Unavailable OBEN, T BENITO MD Unavailable Unavailable OBEN, T BENITO MD Unavailable Unavailable OBEN, T BENITO MD Unavailable Unavailable OBEN, T BENITO MD Unavailable Unavailable OBEN, T BENITO MD Unavailable Unavailable OBEN, T BENTIO MD Unavailable Unavailable OBEN, T BENITO MD Unavailable Unavailable OBEN, T BENITO MD Unavailable Unavailable OBEN, T BENITO MD Unavailable Unavailable OBEN, T BENITO MD Unavailable Unavailable OBEN, T BENITO MD Unavailable Unavailable OBEN, T BENITO MD Unavailable Unavailable OBEN, T BENITO MD Unavailable Unavailable OBEN, T BENITO MD Unavailable Unavailable OBEN, T BENITO MD Unavailable Unavailable OBEN, T BENITO MD Unavailable Unavailable BILAL, AHMAD MD Unavailable Unavailable BILAL, AHMAD MD Unavailable Unavailable BILAL, AHMAD MD Unavailable Unavailable BILAL, AHMAD MD Unavailable Unavailable BILAL, AHMAD MD Unavailable Unavailable BILAL, AHMAD MD Unavailable Unavailable BILAL, AHMAD MD Unavailable Unavailable BILAL, AHMAD MD Unavailable Unavailable BILAL, AHMAD MD Unavailable Unavailable Kunnumpurath, F Jyoti MD Unavailable Unavailable [place]ath, F Jyoti MD Unavailable Unavailable [place], F Jyoti MD Unavailable Unavailable [place], F Jyoti MD Unavailable Unavailable [place]ath, F Jyoti MD Unavailable Unavailable [place]ath, F Jyoti MD Unavailable Unavailable [place]ath, F Jyoti MD Unavailable Unavailable [place], F Jyoti MD Unavailable Unavailable [place], F Jyoti MD Unavailable Unavailable [place]ath, F Jyoti MD Unavailable Unavailable [place]ath, F Jyoti MD Unavailable Unavailable [place], F Jyoti MD Unavailable Unavailable [place], F Jyoti MD Unavailable Unavailable [place], F Jyoti MD Unavailable Unavailable [place], F Jyoti MD Unavailable Unavailable [place], F Jyoti MD Unavailable Unavailable [place], F Jyoti MD Unavailable Unavailable [place], F Jyoti MD Unavailable Unavailable [place], F Jyoti MD Unavailable Unavailable [place], F Jyoti MD Unavailable Unavailable [place], F Jyoti MD Unavailable Unavailable [place], F Jyoti MD Unavailable Unavailable [place], F Jyoti MD Unavailable Unavailable [place], F Jyoti MD Unavailable Unavailable [place], F Jyoti MD Unavailable Unavailable [place], F Jyoti MD Unavailable Unavailable [place], F Jyoti MD Unavailable Unavailable [place], F Jyoti MD Unavailable Unavailable [place], F Jyoti MD Unavailable Unavailable [place]ath, F Jyoti MD Unavailable Unavailable [place], F Jyoti MD Unavailable Unavailable [place]ath, F Jyoti MD Unavailable Unavailable [place], F Jyoti MD Unavailable Unavailable [place], F Jyoti MD Unavailable Unavailable [place], F Jyoti MD Unavailable Unavailable [place], F Jyoti MD Unavailable Unavailable [place], F Jyoti MD Unavailable Unavailable [place], F Jyoti MD Unavailable Unavailable EANNIELLO, L SHANNA GAMING DIRECTOR Unavailable Unavailable EANNIELLO, L SHANNA GAMING DIRECTOR Unavailable Unavailable EANNIELLO, L SHANNA GAMING DIRECTOR Unavailable Unavailable EANNIELLO, L SHANNA GAMING DIRECTOR Unavailable Unavailable EANNIELLO, L SHANNA GAMING DIRECTOR Unavailable Unavailable EANNIELLO, L SHANNA GAMING DIRECTOR Unavailable Unavailable EANNIELLO, L SHANNA GAMING DIRECTOR Unavailable Unavailable EANNIELLO, L SHANNA GAMING DIRECTOR Unavailable Unavailable EANNIELLO, L SHANNA GAMING DIRECTOR Unavailable Unavailable EANNIELLO, L SHANNA GAMING DIRECTOR Unavailable Unavailable EANNIELLO, L SHANNA GAMING DIRECTOR Unavailable Unavailable EANNIELLO, L SHANNA GAMING DIRECTOR Unavailable Unavailable EANNIELLO, L SHANNA GAMING DIRECTOR Unavailable Unavailable EANNIELLO, L SHANNA GAMING DIRECTOR Unavailable Unavailable EANNIELLO, L SHANNA GAMING DIRECTOR Unavailable Unavailable EANNIELLO, L SHANNA GAMING DIRECTOR Unavailable Unavailable EANNIELLO, L SHANNA GAMING DIRECTOR Unavailable Unavailable EANNIELLO, L SHANNA GAMING DIRECTOR Unavailable Unavailable EANNIELLO, L SHANNA GAMING DIRECTOR Unavailable Unavailable EANNIELLO, L SHANNA GAMING DIRECTOR Unavailable Unavailable EANNIELLO, L SHANNA GAMING DIRECTOR Unavailable Unavailable EANNIELLO, L SHANNA GAMING DIRECTOR Unavailable Unavailable EANNIELLO, L SHANNA GAMING DIRECTOR Unavailable Unavailable EANNIELLO, L SHANNA GAMING DIRECTOR Unavailable Unavailable EANNIELLO, L SHANNA GAMING DIRECTOR Unavailable Unavailable EANNIELLO, L SHANNA GAMING DIRECTOR Unavailable Unavailable EANNIELLO, L SHANNA GAMING DIRECTOR Unavailable Unavailable EANNIELLO, L SHANNA GAMING DIRECTOR Unavailable Unavailable EANNIELLO, L SHANNA GAMING DIRECTOR Unavailable Unavailable EANNIELLO, L SHANNA GAMING DIRECTOR Unavailable Unavailable EANNIELLO, L SHANNA GAMING DIRECTOR Unavailable Unavailable EANNIELLO, L SHANNA GAMING DIRECTOR Unavailable Unavailable EANNIELLO, L SHANNA GAMING DIRECTOR Unavailable Unavailable Veeravanallur Appuswamy, Viridiana Unavailable Unavail able Veeravanallur Appuswamy, Viridiana Unavailable Unavail able Veeravanallur Appuswamy, Viridiana Unavailable Unavail able Veeravanallur Appuswamy, Viridiana Unavailable Unavail able NON, PHYSICIAN STAFF Unavailable Unavailable Isabel GuidryC Unavailable Unavailable Isabel Guidry PA-C Unavailable Unavailable Isabel GuidryC Unavailable Unavailable Isabel GuidryC Unavailable Unavailable Isabel GuidryC Unavailable Unavailable Isabel GuidryC Unavailable Unavailable Isabel GuidryC Unavailable Unavailable Isabel GuidryC Unavailable Unavailable Chao, J Addy PA-C Unavailable Unavailable Isabel Guidry PA-C Unavailable Unavailable Isabel Guidry PA-C Unavailable Unavailable TURRIN, BRANT Unavailable Unavailable TURRIN, BRANT Unavailable Unavailable TURRIN, BRANT Unavailable Unavailable TURRIN, BRANT Unavailable Unavailable OBEN, T BENITO MD Unavailable Unavailable OBEN, T BENITO MD Unavailable Unavailable OBEN, T BENITO MD Unavailable Unavailable OBEN, T BENITO MD Unavailable Unavailable OBEN, T BENITO MD Unavailable Unavailable OBEN, T BENITO MD Unavailable Unavailable OBEN, T BENITO MD Unavailable Unavailable OBEN, T BENITO MD Unavailable Unavailable OBEN, T BENITO MD Unavailable Unavailable OBEN, T BENITO MD Unavailable Unavailable OBEN, T BENITO MD Unavailable Unavailable OBEN, T BENITO MD Unavailable Unavailable OBEN, T BENITO MD Unavailable Unavailable OBEN, T BENITO MD Unavailable Unavailable OBEN, T BENITO MD Unavailable Unavailable OBEN, T BENITO MD Unavailable Unavailable OBEN, T BENITO MD Unavailable Unavailable OBEN, T BENITO MD Unavailable Unavailable OBEN, T BENITO MD Unavailable Unavailable OBEN, T BENITO MD Unavailable Unavailable OBEN, T BENITO MD Unavailable Unavailable OBEN, T BENITO MD Unavailable Unavailable OBEN, T BENITO MD Unavailable Unavailable OBEN, T BENITO MD Unavailable Unavailable OBEN, T BENITO MD Unavailable Unavailable OBEN, T BENITO MD Unavailable Unavailable OBEN, T BENITO MD Unavailable Unavailable OBEN, T BENITO MD Unavailable Unavailable OBEN, T BENITO MD Unavailable Unavailable OBEN, T BENITO MD Unavailable Unavailable OBEN, T BENITO MD Unavailable Unavailable OBEN, T BENITO MD Unavailable Unavailable OBEN, T BENITO MD Unavailable Unavailable OBEN, T BENITO MD Unavailable Unavailable OBEN, T BENITO MD Unavailable Unavailable OBEN, T BENITO MD Unavailable Unavailable OBEN, T BENITO MD Unavailable Unavailable OBEN, T BENITO MD Unavailable Unavailable OBEN, T BENITO MD Unavailable Unavailable OBEN, T BENITO MD Unavailable Unavailable OBEN, T BENITO MD Unavailable Unavailable OBEN, T BENITO MD Unavailable Unavailable OBEN, T BENITO MD Unavailable Unavailable OBEN, T BENITO MD Unavailable Unavailable OBEN, T BENITO MD Unavailable Unavailable OBEN, T BENITO MD Unavailable Unavailable OBEN, T BENITO MD Unavailable Unavailable OBEN, T BENITO MD Unavailable Unavailable OBEN, T BENITO MD Unavailable Unavailable OBEN, T BENITO MD Unavailable Unavailable OBROBERT, Bola BENITO MD Unavailable Unavailable OBROBERT, T BENITO MD Unavailable Unavailable OBROBERT, T BENITO Unavailable Unavailable Benjy KELLY Unavailable Unavailable Tristan Hernandez MD Unavailable Unavailable Ce, Wajeeh MD Unavailable Unavailable Ce, Wajeeh MD Unavailable Unavailable Ce, Wajeeh MD Unavailable Unavailable Ce, Wajeeh MD Unavailable Unavailable Ce, Wajeeh MD Unavailable Unavailable Ce, Wajeeh MD Unavailable Unavailable Ce, Wajeeh MD Unavailable Unavailable Ce, Wajeeh MD Unavailable Unavailable Ce, Wajeeh MD Unavailable Unavailable Ce, Wajeeh MD Unavailable Unavailable Ce, Wajeeh MD Unavailable Unavailable Ce, Wajeeh MD Unavailable Unavailable Ce, Wajeeh MD Unavailable Unavailable Ce, Wajeeh MD Unavailable Unavailable Ce, Wajeeh MD Unavailable Unavailable Ce, Wajeeh MD Unavailable Unavailable Ce, Wajeeh MD Unavailable Unavailable Ce, Wajeeh MD Unavailable Unavailable Ce, Wajeeh MD Unavailable Unavailable [place], N Chloe PA Unavailable Unavailable [place], N Chloe PA Unavailable Unavailable [place], N Chloe PA Unavailable Unavailable [place], N Chloe PA Unavailable Unavailable [place], N Chloe PA Unavailable Unavailable [place], N Chloe PA Unavailable Unavailable [place], N Chloe PA Unavailable Unavailable [place], N Chloe PA Unavailable Unavailable [place], N Chloe PA Unavailable Unavailable Re-disclosure Warning The records that you are about to access may contain information from federally-assisted alcohol or drug abuse programs. If such information is present, then the following federally mandated warning applies: This information has been disclosed to you from records protected by federal confidentiality rules (42 CFR part 2). The federal rules prohibit you from making any further disclosure of this information unless further disclosure is expressly permitted by the written consent of the person to whom it pertains or as otherwise permitted by 42 CFR part 2. A general authorization for the release of medical or other information is NOT sufficient for this purpose. The Federal rules restrict any use of the information to criminally investigate or prosecute any alcohol or drug abuse patient.The records that you are about to access may contain highly sensitive health information, the redisclosure of which is protected by Article 27-F of the [facility] Public Health law. If you continue you may have access to information: Regarding HIV / AIDS; Provided by facilities licensed or operated by the [facility] Office of Mental Health; or Provided by the [facility] Office for People With Developmental Disabilities. If such information is present, then the following [facility] mandated warning applies: This information has been disclosed to you from confidential records which are protected by state law. State law prohibits you from making any further disclosure of this information without the specific written consent of the person to whom it pertains, or as otherwise permitted by law. Any unauthorized further disclosure in violation of state law may result in a fine or [place] health care [facility] sentence or both. A general authorization for the release of medical or other information is NOT sufficient authorization for further disc losure. Allergies and Adverse Reactions Type Description Substance Reaction Status Data Source(s ) No Known Drug Allergies No Known Drug Allergies [facility] Food allergy SEAFOOD SEAFOOD [facility] Drug allergy shellfish derived shellfish derived ADDITIONAL UNSPECIFI ED [facility] shellfish shellfish shellfish oral edema Active eCW1 ([facility]) Macrobid Macrobid NITROFURANTOIN, MACR OCRYSTALS 25 MG / Nitrofurantoin, Monohydrate 75 MG Oral Capsule [Macrobid] Hives Active eCW1 ([facility]) shellfish shellfish shellfish oral edema Active eCW1 ([facility]) shellfish shellfish shellfish oral edema Active eCW1 ([facility]) Drug allergy Sulfa (for allergy use only) Drug allergy unknown Act xiomara eCW1 ([facility]) Drug allergy Macrobid nitrofurantoin, macr ocrystals / nitrofurantoin, monohydrate Hives Active eCW1 ([facility]) aspirin Aspirin Aspirin Hives Active eCW1 ([facility]) Drug allergy Primaquine Phosphate Primaquine Hives Active eC W1 ([facility]) Propensity to adverse reactions shellfish Propensity to ad verse reactions oral edema Active eCW1 (Pending sale to [facility]) Drug allergy Sulfa (for allergy use only) Drug allergy unknown Act xiomara eCW1 ([facility]) Propensity to adverse reactions shellfish Propensity to ad verse reactions oral edema Active eCW1 (Pending sale to [facility]) Drug allergy Sulfa (for allergy use only) Drug allergy unknown Act xiomara eCW1 ([facility]) Propensity to adverse reactions shellfish Propensity to ad verse reactions oral edema Active eCW1 (Pending sale to [facility]) Drug allergy Sulfa (for allergy use only) Drug allergy unknown Act xiomara eCW1 ([facility]) Propensity to adverse reactions shellfish Propensity to ad verse reactions oral edema Active eCW1 (Pending sale to [facility]) Drug allergy Sulfa (for allergy use only) Drug allergy unknown Act xiomara eCW1 ([facility]) Propensity to adverse reactions shellfish Propensity to ad verse reactions oral edema Active eCW1 (Pending sale to [facility]) Drug allergy Sulfa (for allergy use only) Drug allergy unknown Act xiomara eCW1 ([facility]) Propensity to adverse reactions shellfish Propensity to ad verse reactions oral edema Active eCW1 (Pending sale to [facility]) shellfish shellfish shellfish oral edema Active eCW1 ([facility]) Drug Allergy Drug Allergy NKDA MEDENT ([facility]) Encounters Encounter Providers Location Date Indications Data Source(s ) Outpatient Attender: Isabel CRAIG MD 2021 12:00:00 AM [facility] Emergency Attender: LUZMA NAPOLESCOConsultant: STAFF N ON 12/27/2020 10:55:00 AM [facility] Patient admitted. Emergency Attender: Addy ANTOINECConsultant: STAFF NO N 12/20/2020 11:29:00 AM EST - 12/20/2020 03:03:00 PM [facility] Patient discharged. Emergency Attender: BRANT LUNAConsultant: STAFF NON 12/19/2020 09:11:00 AM EST - 12/19/2020 01:41:00 PM [facility] Patient discharged. Outpatient Attender: DYLAN SHI MD [facility] 12/18 12:15:00 PM EST MED[facility] (Dylan Shi [facility]) Outpatient Attender: Cari orr FNPAttender: SABRINA KELLYConsultant: STAFF NON 12/01/2020 02:50:00 PM EST - 12/03/2020 12:25:00 PM [facility] Patient discharged. Outpatient Attender: Isabel CRAIG MD [id number] 11/22/2020 12:00:00 AM [facility] Emergency Attender: BRANT LUNAConsultant: STAFF NON 11/19/2020 02:16:00 PM EST - 11/19/2020 03:51:00 PM [facility] Patient discharged. [place] [address] [place] [address] 11/15/2020 12:00:00 AM EST eCW1 (Pending sale to [facility]) Outpatient Attender: BENITO WILLETT MDConsultant: STAFF NON 11/14/2020 01:25:00 PM EST - 11/14/2020 [facility]:25[facility] BENITO WILLETT MD [facility] 11/14/2020 12:00:0 0 PM EST MED[facility] ([facility]) Outpatient Attender: DYLAN SHI MD [facility] 11/07 01:15:00 PM EST [facility] (Dylan Shi [facility]) [place] [address] [place] [address] 10/30/2020 12:00:00 AM EST eCW1 (Pending sale to [facility]) [place] [address] [facility] [place] [address] 10/25/2020 12:00:00 AM EST eCW1 (Pending sale to [facility]) Emergency Attender: Addy ANTOINECConsultant: STAFF NO N 10/19/2020 10:32:00 AM EST - 10/19/2020 01:51:00 PM [facility] Patient discharged. [place] [address] [place] [address] 10/19/2020 12:00:00 AM EST eCW1 (Pending sale to [facility]) [place] [address] [place] [address] 10/19/2020 12:00:00 AM EST eCW1 (Pending sale to [facility]) [place] [address] [place] [address] 10/18/2020 12:00:00 AM EST eCW1 (Pending sale to [facility]) Emergency Attender: BRANT LUNAConsultant: STAFF NON 09/17/2020 08:46:00 AM EST - 09/17/2020 12:18:00 PM EST [facility] Patient discharged. Outpatient Attender: Jyoti Lombardo MDConsultant: STAFF NON 09/07/2020 02:36:00 PM EDT - 09/07/2020 02:36:00 PM EDT [facility] Emergency Attender: Dee Encinas MD 020 11:01:00 AM EDT - 08/05/2020 04:21:00 PM EDT Eval [facility] Eval After Fall Patient discharged. Outpatient Attender: Angel FinneganAdmitter: Angel Louiesucolleen nt: Angel Finnegan 07/27/2020 07:15:00 PM EDT Suicide [facility] Suicide attempt Inpatient Attender: Angel FinneganAttender: AMBREEN SHAH MDAdmi tter: Angel Finnegan 07/27/2020 07:15:00 PM EDT - 08/07/2020 02:45:00 PM EDT Suicide attempt [facility] Suicide attempt Patient discharged. Outpatient Attender: AMBREEN SHAH MDAdmi tter: AMBREEN SHAH MDConsultant: AMBREEN SHAH MD 07/27/2020 07:15:00 PM EDT [facility] Su[facility] Outpatient Attender: CHICHI YI NPAdm itter: AMBREEN SHAH MDConsultant: AMBREEN SHAH MD 07/27/2020 07:15:00 PM EDT [facility] Su[facility] Outpatient Attender: CHICHI YI NPAdm itter: AMBREEN SHAH MDConsultant: AMBREEN SHAH MD 07/27/2020 07:15:00 PM EDT [facility] Su[facility] Outpatient Attender: AMBREEN SHAH MDAdmi tter: AMBREEN SHAH MDConsultant: AMBREEN SHAH MD 07/27/2020 07:15:00 PM EDT [facility] Suicide attempt Outpatient Attender: AMBREEN SHAH MDAdmi tter: AMBREEN SHAH MDConsultant: AMBREEN SHAH MD 07/27/2020 07:15:00 PM EDT [facility]icide attempt [facility] Suicide attempt Outpatient Attender: AMBREEN SHAH MDAdmi tter: AMBREEN SHAH MDConsultant: AMBREEN SHAH MD 07/27/2020 07:15:00 PM EDT Suicide attempt [facility] Suicide attempt Outpatient Attender: AMBREEN SHAH MDAdmi tter: AMBREEN SHAH MDConsultant: AMBREEN SHAH MD 07/27/2020 07:15:00 PM EDT Suicide attempt [facility] Suicide attempt Outpatient Attender: AMBREEN SHAH MDAdmi tter: AMBREEN SHAH MDConsultant: AMBREEN SHAH MD 07/27/2020 07:15:00 PM EDT Suicide attempt [facility] Suicide attempt Outpatient Attender: AMBREEN SHAH MDAdmi tter: AMBREEN SHAH MDConsultant: AMBREEN SHAH MD 07/27/2020 07:15:00 PM EDT Suicide attempt [facility] Suicide attempt Outpatient Attender: Chloe LAURENT dmitter: AMBREEN SHAH MDConsultant: AMBREEN SHAH MD 07/27/2020 07:15:00 PM EDT Suicide attempt [facility] Suicide attempt Outpatient Attender: AMBREEN SHAH MDAdmi tter: AMBREEN SHAH MDConsultant: AMBREEN SHAH MD 07/27/2020 07:15:00 PM EDT Suicide attempt [facility] Suicide attempt Outpatient Attender: Viridiana Marin 07/27/2020 12:00:00 AM [facility] Outpatient Attender: Viridiana Marin Referrer: SHANNA ARNOLD NP 06/06/2020 12:00:00 AM EDT [facility] Outpatient Attender: Malick Grijalva mitter: Malick Hernandez MDConsultant: Malick Hernandez MD 06/01/2020 10:05:00 AM EDT Suicidal idea tion/Homicidal ideation [facility] Suicidal ideation/Homicidal ideation Inpatient Attender: Malick Hernandez MDAdmitter: Malick tobar MD 06/01/2020 10:05:00 AM EDT - 06/05/2020 11:15:00 AM EDT Suicidal ideation/Homicidal ideation [facility] Suicidal ideation/Homicidal ideation Patient discharged. Outpatient Attender: Malick Grijalva mitter: Malick Hernandez MDConsultant: Malick Hernandez MD 06/01/2020 10:05:00 AM EDT Suicidal idea tion/Homicidal ideation [facility] Suicidal ideation/Homicidal ideation Outpatient Attender: Angel FinneganAdmitter : Malick Hernandez MDConsultant: Malick Hernandez MD 06/01/2020 10:05:00 AM EDT Suicidal ideation/Shanika icidal ideation [facility] Suicidal ideation/Homicidal ideation Outpatient Attender: Angel FinneganAdmitter : Malick Hernandez MDConsultant: Malick Hernandez MD 06/01/2020 10:05:00 AM EDT Suicidal ideation/Shanika icidal ideation [facility] Suicidal ideation/Homicidal ideation Outpatient Attender: Raquel Short NPAd mitter: Malick Hernandez MDConsultant: Malick Hernandez MD 06/01/2020 10:05:00 AM EDT Suicidal idea tion/Homicidal ideation [facility] Suicidal ideation/Homicidal ideation Outpatient Attender: Malick Grijalva mitter: Malick Hernandez MDConsultant: Malick Hernandez MD 06/01/2020 10:05:00 AM EDT Suicidal idea tion/Homicidal ideation [facility] Suicidal ideation/Homicidal ideation Outpatient 05/04/2020 04:51:00 AM EDT [facility] Dermatology [address] [place] [address] 03/23/2020 12:00:00 AM EDT eCW1 (Pending sale to [facility]) [facility] Derm[facility] [address] [place] [address] 03/09/2020 12:00:00 AM EDT eCW1 (Pending sale to [facility]) Outpatient Attender: Isabel CRAIG MD 03/09/2020 12:00:00 AM [facility] Outpatient Attender: Isabel CRAIG MD [id number] 03/08/2020 12:00:00 AM EDT [facility] Outpatient 02/09/2020 04:41:00 AM [facility] Outpatient Attender: Isabel CRAIG MD 01/12/2020 12:00:00 AM [facility] Outpatient Attender: Isabel CRAIG MD [id number] 01/09/20 12:00:00 AM EST - 01/09/2020 01:33:24 PM [facility] Outpatient Attender: Isabel CRAIG MD 01/06/2020 12:00:00 AM [facility] [place] [address], [facility] [address] 12/26/2019 12:00:00 AM EST eCW1 (Pending sale to [facility]) Outpatient Attender: DENIA MCCULLOUGH NP Physical Therapy 12/21/2019 0 9:45:00 AM EST MED[facility] ([facility]) [facility] [place] [address] [facility] [address] 12/19/2019 12:00:00 AM EST eCW1 (Pending sale to [facility]) [facility] [address] [facility] [place] [address] 12/19/2019 12:00:00 AM EST eCW1 (Pending sale to [facility]) Outpatient 12/13/2019 12:00:00 AM [facility] Outpatient Attender: Isabel CRAIG MDReferrer: Isabel CRAIG MD 12/09/2019 12:00:00 AM EST Male infertility, unspecified [facility] Male infertility, unspecified Outpatient 12/09/2019 12:00:00 AM [facility] Outpatient Attender: Isabel CRAIG MDAdmitter: Isabel CRAIG MD 0 [id number] 12/08/2019 12:00:00 AM EST - 12/08/2019 10:07:51 AM EST Male infertility, unspecified [facility] Male infertility, unspecified Outpatient Attender: Isabel CRAIG MDAdmit ter: Isabel CRAIG MDReferrer: Isabel CRAIG MD 12/08/2019 12:00:00 AM EST [facility], unspecified [facility] [place] [address] [address] 11/29/2019 12:00:00 AM EST eCW1 (Pending sale to [facility]) [facility] [address] [address] 11/22/2019 12:00:00 AM EST eCW1 (Pending sale to [facility]) Medications Medication Brand Name Start Date Product Form Dose Route Admi nistrative Instructions Pharmacy Instructions Status Indications Reaction Description Data Source(s) HM LIDOCAINE PATCH EX 11/07/2020 12:00:00 AM EST [facility] Methocarbamol 500 MG Oral Tablet Methocarbamol 11/07/2020 12:00:00 AM EST active [facility] (Dylan Shi MD) Escitalopram 20 MG Oral Tablet Escitalopram Oxalate 11/07/2020 1 2:00:00 AM EST active MEDENT ( Dylan Shi MD) Acetaminophen 325 MG Oral Tablet Acetaminophen 11/07/2020 12:00:00 AM EST active [facility] (Dylan Shi MD) Trazodone Hydrochloride 50 MG Oral Tablet Trazodone HCL 11/07/2020 12:00:00 AM EST active [facility] (Maribel Shi MD) apixaban 5 MG Oral Tablet Apixaban 5 MG Oral Tablet (E liquis) Apixaban 5 MG Oral Tablet (Eliquis) 11/07/2020 12:00:[address] [facility] Trazodone Hydrochloride 50 MG Oral Table t traZODone HCl 50 MG Oral Tablet (DESYREL) traZODone HCl 50 MG Oral Tablet (DESYREL) 11/07/2020 12:00:0 0 AM EST [facility] Escitalopram 20 MG Oral Tablet Escitalopram Oxalate 20 MG Oral Tablet (LEXAPRO) Escitalopram Oxalate 20 MG Oral Tablet (LEXAPRO) 11/07/2020 12:00:00 AM EST 10 mg active 10 mg [facility] Divalproex Sodium 250 MG Delayed Release Oral Tablet Divalpr oex Sodium 11/07/2020 12:00:00 AM EST active [facility] (Dylan Shi [facility]) Injection For Skin Disease Every 3 Months 11/07/2020 12:00:00 AM EST active [facility] (Dylan Shi MD) Lidocaine 40 MG/ML Topical Cream Lidocaine 11/07/2020 12:00:00 AM EST active [facility] (Dylan Shi MD) Risperidone 1 MG Oral Tablet Risperidone 11/07/2020 12:00:00 AM EST active [facility] (Dylan Shi MD) Ivermectin 3 MG Oral Tablet Ivermectin 11/07/2020 12:00:00 AM EST active [facility] (Dylan Shi MD) apixaban 5 MG Oral Tablet [Eliquis] Eliquis 11/07/2020 12:00:00 AM EST active [facility] (Dylan Shi MD) Xolair 150 MG/ML Xolair 150 MG/ML 10/19/2020 12:00:00 AM EST active Xolair 150 MG/ML eCW1 (Pending sale to [facility]) Xolair 150 MG/ML Xolair 150 MG/ML 10/19/2020 12:00:00 AM EST active Xolair 150 MG/ML eCW1 (Pending sale to [facility]) Xolair 150 MG/ML Xolair 150 MG/ML 10/19/2020 12:00:00 AM EST active Xolair 150 MG/ML eCW1 (Pending sale to [facility]) Betamethasone 0.0005 MG/MG Augmented Top ical Ointment Betamethasone Dipropionate Aug 0.05 % Betamethasone Dipropionate Aug 0.05 % 03/23/2020 12:00:00 AM EDT active 1 application eCW1 ([facility]) Ivermectin 3 MG Oral Tablet Ivermectin 3 MG 03/09/2020 12:00:00 AM EDT active 3 tablets eCW1 ([facility]) cetirizine hydrochloride 10 MG Oral Tablet Cetirizine HCl 10 MG Cetirizine HCl 10 MG 03/09/2020 12:00:00 AM EDT active 1 tablet eCW1 ([facility]) Syringe/Needle (Disp) 22G X 1-1/2" 1 ML (UltiCare Syringe) 1 23617 01/09/2020 12:00:00 AM EST active Use as directed. Use as directed for HCG intramuscular injection [facility] Chorionic Gonadotropin 41435 UNT/ML Inje ctable Solution Chorionic Gonadotropin 57589 UNIT Intramuscular Solution Reconstituted Chorionic Gonadotropin 06024 UNIT Intramuscular Solution Reconstituted 01/06/2020 12:00:00 AM EST 1000 U Intramuscular active Inject 1,00 0 Units into the muscle 3 (three) times a week Inject 1000 units on Thursday, Thursday and Thursday, Max Daily Dose: 1,000 Units [facility] Chorionic Gonadotropin 53757 UNT/ML Inje ctable Solution Chorionic Gonadotropin 26058 UNIT Intramuscular Solution Reconstituted Chorionic Gonadotropin 67412 UNIT Intramuscular Solution Reconstituted 12/09/2019 12:00:00 AM EST 1000 U Intramuscular active Inject 1,00 0 Units into the muscle 3 (three) times a week Inject 1000 units on Thursday, Thursday and Thursday, Max Daily Dose: 1,000 Units [facility] mometasone furoate 1 MG/ML Topical Cream Mometasone Fu roate 0.1 % Mometasone Furoate 0.1 % 11/22/2019 12:00:00 AM EST active 1 application eCW1 ([facility]) cetirizine hydrochloride 10 MG Oral Tablet [Zyrtec] Zy rtec Allergy 10 MG Zyrtec Allergy 10 MG 11/22/2019 12:00:00 AM EST active 1 tablet eCW1 ([facility]) Insurance Providers Payer name Policy type / Coverage type Policy ID Covered democrat ID Covered democrat's relationship to puente Policy Puente Plan Information [facility]UTY [id number] SP [id number] [facility] HUMANA - O/P [id number] 18 [id number] HUMANA [facility] REG O [id number] S [id number] [facility] [id number] 18 [id number] [facility] [id number] 18 [id number] U [id number] Self [id number] [facility] HUMANA - O/P [id number] 18 [id number] [employer] [place] [id number] SP [id number] [employer] [place] [place] [id number] SP [id number] SELF PAY [facility] [id number] SP [id number] U [id number] Self [id number] Problems, Conditions, and Diagnoses Code Display Name Description Problem Type Effective Dates Data Source(s) Q98.4 [id number] Klinefelter syndrome Problem 11/29/2019 12:0 0:00 AM EST eCW1 ([facility]) Q98.4 [id number] Klinefelter syndrome Problem 11/29/2019 12:0 0:00 AM EST eCW1 ([facility]) R21 [id number] Rash Problem 11/22/2019 12:00:00 AM ES T eCW1 ([facility]) Z87.2 [id number] History of cold-induced urticaria Pr oblem 11/22/2019 12:00:00 AM EST eCW1 ([facility]) R21 [id number] Rash Problem 11/22/2019 12:00:00 AM ES T eCW1 ([facility]) Z87.2 [id number] History of cold-induced urticaria Pr oblem 11/22/2019 12:00:00 AM EST eCW1 ([facility]) [id number] Personal history of urinary calculi Personal his tory of urinary calculi Diagnosis 12/20/2020 11:29:00 AM [facility] [id number] Personal history of other venous thrombo sis and embolism Personal history of other venous thrombosis and embolism Diagnosis 12/20/2020 11:29:00 AM [facility] 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 Diagnosis 12/20/2020 11:29:00 AM [facility] I10 Essential (primary) hypertension Essential (primary) h ypertension Diagnosis 12/20/2020 11:29:00 AM [facility] N132 Hydronephrosis with renal and ureteral c alculous obstruction Hydronephrosis with renal and ureteral calculous obstruction Diagnosis 021 11:29:00 AM [facility] R109 Unspecified abdominal pain Unspecified abdominal pain Diagnosis 12/20/2020 11:29:00 AM [facility] I313 Pericardial effusion (noninflammatory) P ericardial effusion (noninflammatory) Diagnosis 12/19/2020 09:11:00 AM [facility] L089 Local infection of the skin and subcutan eous tissue, unspecified Local infection of the skin and subcutaneous tissue, unspecified Diagnosis 12/01/2020 02:50:00 PM [facility] Z6831 Body mass index [BMI] 31.0-31.9, adult B jm mass index [BMI] 31.0-31.9, adult Diagnosis 12/01/2020 02:50:00 PM [facility] E669 Obesity, unspecified Obesity, unspecified Diagnosis 12/01/2020 02:50:00 PM [facility] R319 Hematuria, unspecified Hematuria, unspecified Diagnosi s 12/01/2020 02:50:00 PM [facility] M545 Low back pain Low back pain Diagnosis 12/01/2020 02:50:00 PM [facility] R55 Syncope and collapse Syncope and collapse Diagnosis 12/01/2020 02:50:00 PM [facility] G8929 Other chronic pain Other chronic pain Diagnosis 09/2021 02:16:00 PM [facility] 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, lumbar region Intervertebral disc disorders with radiculopathy, lumbar region Diagnosis 11/19/2020 02:16:00 PM [facility] N5312 Painful ejaculation Painful ejaculation Diagnosis 0 11/14/2020 01:25:00 PM [facility] R310 Gross hematuria Gross hematuria Diagnosis 11/14/2020 01:2 5:00 PM [facility] R3121 Asymptomatic microscopic hematuria Asymptomatic microscopic hematuria Diagnosis 10/19/2020 10:32:00 AM [facility] Y9289 Other specified places as the place of o ccurrence of the external cause Other specified places as the place of occurrence of the external cause Diagnosis 09/17/2020 08:46:00 AM [facility] [id number] Overexertion from strenuous movement or load, initial encounter Overexertion from strenuous movement or load, initial encounter Diagnosis 09/17/2020 08:46:00 AM [facility] [id number] Strain of muscle, fascia and tendon of l ower back, initial encounter Strain of muscle, fascia and tendon of lower back, initial encounter Diagnosis 09/17/2020 08:46:00 AM [facility] H99032 Acute embolism and thrombosi s of unspecified deep veins of unspecified lower extremity Acute embolism and thrombosis of unspeci fied deep veins of unspecified lower extremity Diagnosis 09/07/2020 02:36:00 PM EDT [facility] F3289 Other specified depressive episodes Other specif ied depressive episodes Diagnosis 09/07/2020 02:36:00 PM EDT [facility] R22.42 Localized swelling, mass and lump, left lower limb R22.42 - Localized swelling, mass and lump, left lower limb Diagnosis 08/05/2020 11:01:00 AM EDT [facility] R51 Headache R51 - Headache Diagnosis 08/05/2020 11:01:00 A M EDT [facility] R29.6 Repeated falls R29.6 - Repeated falls Diagnosis 07:15:00 PM EDT [facility] M54.2 Cervicalgia M54.2 - Cervicalgia Diagnosis 07/27/2020 07:1 5:00 PM EDT [facility] M79.643 Pain in unspecified hand M79.643 - Pain in unspecified hand Diagnosis 07/27/2020 07:15:00 PM EDT [facility] Z13.9 Encounter for screening, unspecified Z13 .9 - Encounter for screening, unspecified Diagnosis 07/27/2020 07:15:00 PM EDT [facility] F34.81 Disruptive mood dysregulation disorder F 34.81 - Disruptive mood dysregulation disorder Diagnosis 07/27/2020 07:15:00 PM EDT [facility] F43.21 Adjustment disorder with depressed mood F43.21 - Adjustment disorder with depressed mood Diagnosis 06/01/2020 10:05:00 AM EDT [facility] N46.9 Male infertility, unspecified Male infertility, unspec ified Diagnosis 12/09/2019 04:40:00 PM [facility] Surgeries/Procedures Procedure Description Date Indications Data Source(s) ECG ROUTINE ECG W/LEAST 12 LDS W/I&R 11/07/2020 12:00: 00 AM JAMES [facility]ENG (Dylan Shi MD) CV STRS TST XERS&/OR RX CONT ECG PHYS SI&R 11/07/2020 12:00:00 AM JAMES FENG (Dylan Shi MD) ECHO TTHRC R-T 2D W/WOM-MODE COMPL SPEC&COLR DOP 11/07 12:00:00 AM EST [facility] (Dylan Shi MD) Brief Emotional/Behav Assessment W/ Scoring Doc Per Standard Inst 09/07/2020 12:00:00 AM EDT [facility] ([facility]) Admin Patient Focused Health Risk Assessment Instrument 09/07/2020 12:00:00 AM EDT [facility] ([facility]) THERAPEUTIC PROPHYLACTIC/DX INJECTION SUBQ/IM 12/21/19 20 12:00:00 AM EST [facility] ([facility] ) EDUCATION&TRAINING SELF-MGMT NONPHYS 1 PT 12/21/2019 1 2:00:00 AM EST [facility] ([facility]) PROLACTIN PROLACTIN Routine 12/09/2019 4:41 PM EST Infertility male 12/09/2019 09:41:00 PM EST Infertility male Ups [facility] Infertility male BLOOD COUNT HEMATOCRIT HEMATOCRIT Routine 12/09/2019 4:41 PM EST Infertility male 12/09/2019 09:41:00 PM EST Infertility male [facility] Infertility male PROSTATE SPECIFIC ANTIGEN TOTAL PSA Routine 12/09/19 20 4:41 PM EST Infertility male 12/09/2019 09:41:00 PM EST Infertility male [facility] Infertility male MISCELLANEOUS TEST MISCELLANEOUS TEST Routine 12/08/2019 12:0 0 PM EST Infertility male 12/08/2019 05:00:00 PM EST Infertility male [facility] Infertility male Results ID Date Data Source [id number] 12/27/2020 12:42:00 PM [facility] Name Value Range Interpretation Code Description Data Marifer rce(s) Supporting Document(s) URINALYSIS [facility] albin URINALYSIS SOURCE R [facility] COLOR yellow NORMAL: Yellow [facility] CLARITY clear NORMAL: Clear [facility] Specific gravity of Urine by Test strip 1.015 1.001 - 1.030 [facility] pH 7 5 - 9 [facility] Glucose [Mass/volume] in Urine by Test strip NORM NORMAL: Negat xiomara [facility] Bilirubin.total [Presence] in Urine by Test strip NEG NORMAL: Negative [facility] Ketones [Presence] in Urine by Test strip NEG NORMAL: Negative [facility] Protein [Mass/volume] in Urine by Test strip NEG NORMAL: Negat xiomara [facility] Nitrite [Presence] in Urine by Test strip NEG NORMAL: Negative [facility] BLOOD 150 NORMAL: Negative A [facility] Leukocyte esterase [Presence] in Urine by Test strip NEG DELANO L: Negative [facility] Urobilinogen [Mass/volume] in Urine by Test strip NOR less fidelia n 1.0 mg/dL [facility] MICROSCOPIC See Below [facility] WBC 5 - 7 NORMAL: NONE SEEN A [facility] Erythrocytes [#/volume] in Urine by Test strip 40 - 50 NORMAL: NON E SEEN A [facility] EPITHELIAL FEW NORMAL: NONE SEEN [facility] Bacteria [Presence] in Urine sediment by Light microscopy Tr du NORMAL: NONE SEEN [facility] Crystals [type] in Urine sediment by Light microscopy See Below [facility] CALCIUM OX Trace NORMAL: NONE SEEN [facility] ID Date Data Source [id number] 12/20/2020 11:29:00 AM EST [facility] 1 OrderSheet [facility] Emergency Department [address] [place] [address] Phone #: ext- [phone] 12/20/2020 11:28 Patient: MARVIN LEAHY Sex: M : 1990 Age: 30yWEIGHT:90.7 kgALLERGIES: SeafoodCHIEF COMPLAINT: flank painDIAGNOSIS: Kidney stoneLAB ORDERSOrder Description Priority Entered Acknowledged InitialedCBC w Diff STAT 12:30 12/20/2020 12:56 Harry Garza RN P.A.-C;CMP STAT 12:30 12/20/2020 12:56 Harry Garza RN P.A.-C;Lipase STAT 12:30 12/20/2020 12:56 Harry Garza RN P.A.-C;Urinalysis (Clean STAT 12:30 12/20/2020 12:47 TerryCatch) Corey Garza RN P.A.-C;Culture, Urine STAT 14:28 12/20/2020 14:34 Harry(Urine, Clean Corey Garza RNCatch) P.A.-C;DIAGNOSTIC STUDY ORDERSOrder Description Priority Entered Acknowledged InitialedMEDICATION/IV/DRIP/FLUID ORDERSOrder Description Priority Entered Acknowledged InitialedNS IV : Bolus 1000 12:30 12/20/2020 12:57 TerrymL, then 100 mL/hr Corey Garza RN P.A.-C;Zofran IVP 4 mg 12:30 12/20/2020 12:57 Harry Garza RN P.A.-C;Tylenol PO 1000 12:30 12/20/2020 12:57 Kvngg Corey Garza RN P.A.-C;Benadryl 25 mg IVP 12:30 12/20/2020 12:58 Harry 2 OrderSheet [facility] Emergency Department [address] [place] [address] Phone #: ext- [phone] 12/20/2020 11:28 Patient: MARVIN LAEHY Sex: M : 1990 Age: 30yX1 dose: 25 mg Corey Garza RN(NOW x1) P.A.-C;GENERAL ORDERSOrder Description Priority Entered Acknowledged InitialedNPO 12:30 12/20/2020 12:56 Harry Garza RN P.A.-C;Saline Lock 12:30 12/20/2020 12:56 Harry Garza RN P.A.-C;[Electronically signed by Harry Garza RN (16:56 12/20/2020)][Electronically signed by Corey MaceASvetlana (22:53 12/20/2020)][Electronically locked by Harry Garza RN (16:56 12/20/2020)] Name Value Range Interpretation Code Description Data Marifer rce(s) Supporting Document(s) ID Date Data Source [id number] 12/20/2020 11:29:00 AM EST [facility] 1 Medication Reconciliation Report [facility] Emergency Department [address] [place] [address] Phone #: ext- [phone] 12/20/2020 11:28 Patient: MARVIN LEAHY Sex: M : 1990 Age: 30yWeight: 90.7 kgHeight/Length: 68 in.BMI: 30.4ALLERGIES: SeafoodThe patient's Home Medications are listed below:CONTINUE TAKING THE FOLLOWING MEDICATIONS: Acetaminophen Oral (325 mg) 2 tablets, 2x a day Cefdinir Oral 300 mg, 2x a day Divalproex Sodium Oral (250 mg), 2x a day Eliquis Oral (5 mg), 2x a day Escitalopram Oxalate Oral (10 mg), 2x a day Flomax Oral 0.4 mg, daily HYDROcodone-Acetaminophen Oral (5-325 mg) 1 tablet, 4x a day, prn Ivermectin Oral (3 mg) 3 tabs, every 6 months Lidocaine External Memetasone furoate 15mg , 4x a day Methocarbamol Oral (500 mg), 2x a day risperiDONE Oral (1 mg), 2x a day traZODone HCl Oral (50 mg), daily Trolamine Salicylate External Xolair Subcutaneous (150 mg) 300mg, 3x a week 2 Medication Reconciliation Report [facility] Emergency Department [address] [place] [address] Phone #: ext- [phone] 12/20/2020 11:28 Patient: MARVIN LEAHY Sex: M : 1990 Age: 30y Zofran Oral 4 mg, 3x a day, prnThe source(s) of the original Home Medication information:Not obtained.The following Medications were given to the patient in the Emergency Department:NS [IV] IV Fluids bolus 1000 mL over 1 hour(s), then 100 mL/hr, administered: 12:57 12/20/2020Zofran [IVP] IVP 4 mg, administered: 12:57 12/20/2020Tylenol [PO] PO 1000 mg, administered: 12:57 12/20/2020enadryl [IVP] IVP 25 mg, administered: 12:58 12/20/2020The following Medications were prescribed to the patient:None. Name Value Range Interpretation Code Description Data Marifer rce(s) Supporting Document(s) ID Date Data Source [id number] 12/20/2020 11:29:00 AM [facility] 1 Medication Administration Record [facility] Emergency Department [address] [place] [address] Phone #: ext- [phone] 12/20/2020 11:28 Patient: MARVIN LEAHY Sex: M : 1990 Age: 30yWeight: 90.7 kgHeight/Length: 68 inBMI: 30.4ALLERGIES: Seafood Date/Time Medication Administered Medication OrderedStart NS [IV] NS IV : Bolus 1000 mL, then 29476:57 12/20/2020 Dose: IV Fluids mL/Edilberto Garza RN Rate: 100 mL/hr over 5 hour(s)---- Bolus: 1000 mL over 1 hour(s)Stop Dispensed: 1000 mL bag14:51 12/20/2020 Site: #1 left handTerry Augustin Garza ZOFRAN [IVP] (ONDANSETRON HCL) Zofran IVP 4 mg12:57 12/20/2020 Dose: 4 mg IVTanya Garza RN Site: #1 left handGiv en TYLENOL [PO] (APAP) Tylenol PO 1000 mg12:57 12/20/2020 Dose: 1000 mg Tablets Augustin Nobles BENADRYL [IVP] (DIPHENHYDRAMINE Benadryl 25 mg IVP X1 dose: 2512:58 12/20/2020 HCL) mg (NOW x1)Harry Garza RN Dose: 25 mg IVP Site: #1 left hand Name Value Range Interpretation Code Description Data Marifer rce(s) Supporting Document(s) ID Date Data Source [id number] 12/20/2020 11:29:00 AM EST [facility] 1 General Instructions [facility] Emergency Department [address] [place] [address] Phone #: ext- [phone] 12/20/2020 11:28 Patient: MARVIN LEAHY Sex: M : 1990 Age: 30yLeft nephrolithiasis with renal colic and urinary tract infect ion.INSTRUCTIONSTake Tylenol (Acetaminophen) or Motrin (Ibuprofen) as needed for fever control. Take medicationaccording to label instructions. No strenuous activity for one weeks.Drink plenty of fluids.(Please take previous meds as rx'ed (pain meds, Flomax, and antibiotic). Please return if not better.Please f/u with PCP for referrals previously discussed yesterday.).Warnings: GENERAL WARNINGS: Return or contact your physician immediately if your conditionworsens or changes unexpectedly, if not improving as expected, or if other problems arise.SPECIFICALLY, return if you develop fever or vomiting; or if there is no improvement in the pain.Your Current Medications: Your current home medications have been reviewed.CONTINUE TAKING THE FOLLOWING MEDICATIONS:Acetaminophen Oral : Tablet Chewable 325 mg, 2 tablets 2x a day.Cefdinir Oral : 300 mg 2x a day, Started: yesterday.Divalproex Sodium Oral : Tablet Delayed Release 250 mg, 2x a day.Eliquis Oral : Tablet 5 mg, 2x a day.Escitalopram Oxalate Oral : Tablet 10 mg, 2x a day.Flomax Oral : 0.4 mg daily, Started: yesterday.HYDROcodone- Acetaminophen Oral : Tablet 5-325 mg, 1 tablet 4x a day, prn.Ivermectin Oral : Tablet 3 mg, 3 tabs every 6 months.Lidocaine External.Memetasone furoate* : 15mg 4x a day.Methocarbamol Oral : Tablet 500 mg, 2x a day.risperiDONE Oral : Tablet Disintegrating 1 mg, 2x a day.traZODone HCl Oral : Tablet 50 mg, daily.Trolamin e Salicylate External.Xolair Subcutaneous : Solution Reconstituted 150 mg, 300mg 3x a week.Zofran Oral : 4 mg 3x a day, prn.Follow-up:Return to the emergency department as needed. Follow up with your healthcare provider in about twodays if not better. Call for an appointment.Understanding of the discharge instructions verbalized by patient. 2 General Instructions [facility] Emergency Department [address] [place] [address] Phone #: ext- [phone] 12/20/2020 11:28 Patient: MARVIN LEAHY Sex: M : 1990 Age: 30y ADDITIONAL INFORMATIONKidney Stone with PainThe sharp cramping pain on either side of your lower back and nausea/vomiting that you have arebecause of a small stone that has formed in the kidney. It is now passing down a narrow tube (ureter)on its way to your bladder. Once the stone reaches your bladder, the pain will often stop. But it maycome back as the stone continues to pass out of the bladder and through the urethra. The stone maypass in your urine stream in one piece. The size may be 1/16 inch to 1/4 inch (1 mm to 6 mm). Or, thestone may break up into fabián fragments that you may not even notice.Once you have had a kidney stone, you are at risk of getting another one in the future. There are 4types of kidney stones. Eighty percent are calcium stones--mostly calcium oxalate but also somewith calcium phosphate. The other 3 types include uric acid stones, struvite stones (from a precedinginfection), and rarely, cystine stones.Most stones will pass on their own, but may take from a few hours to a few days. Sometimes thestone is too large to pass by itself. In that case, the healthcare provider will need to use other ways toremove the stone. These techniques include: Lithotripsy. This uses ultrasound waves to break up the stone. 3 General Instructions [facility] Emergency Department [address] [place] [address] Phone #: ext- [phone] 12/20/2020 11:28 Patient: MARVIN LEAHY Sex: M : 1990 Age: 30y Ureteroscopy. This pushes a basket-like instrument through the urethra and bladder and into the ureter to pull out the stone. Various types of direct surgery through the skinHome careThe following are general care guidelines: Drink plenty of fluids. This means at least 12, 8-ounce glasses of fluid--mostly water--a day. Each time you urinate, do so in a jar. Pour the urine from the jar through the strainer and into the toilet. Continue doing this until 24 hours after your pain stops. By then, if there was a kidney stone, it should pass from your bladder. Some stones dissolve into sand-like particles and pass right through the strainer. In that case, you won't ever see a stone. Save any stone that you find in the strainer and bring it to your healthcare provider to look at. It may be possible to stop certain types of stones from forming. For this reason, it is important to know what kind of stone you have. Try to stay as active as possible. This will help the stone pass. Don't stay in bed unless your pain keeps you from getting up. You may notice a red, pink, or brown color to your urine. This is normal while passing a kidney stone. If you develop pain, you may take ibuprofen or naproxen for pain, unless another medicine was prescribed. If you have chronic liver or kidney disease, talk with your healthcare provider before taking these medicines. Also talk with your provider if you've had a stomach ulcer or GI bleeding.Preventing stonesEach year for the next 5 to 7 years, you are at risk that a new stone will form. Your risk is a 50%chance over this time period. The risk is higher if you have a family history of kidney stones or havecertain chronic illnesses like hypertension, obesity, or diabetes. But you can make changes to yourlifestyle and diet that can lower your risk for another stone.Most kidney stones are made of calcium. The following is advice for preventing another calciumstone. If you don't know the type of stone you have, follow this advice until the cause of your stone isfound.Things that help: The most important thing you can do is to drink plenty of fluids each day. See home care above. Eat foods that contain phytates. These include wheat, rice, rye, barley, and beans. Phytates 4 General Instructions [facility] Emergency Department [address] [place] [address] Phone #: ext- [phone] 12/20/2020 11:28 Patient: MARVIN LEAHY Sex: M : 1990 Age: 30y are substances that may lower your risk for any type of stone to form. Eat more fruits and vegetables. Choose those that are high in potassium. Eat ilda ds high in natural citrate like fruit and low-sugar fruit juices. Having too little calcium in your diet can put you at risk for calcium kidney stones. Eat a normal amount of calcium in your diet and talk with your healthcare provider if you are taking calcium supplements. Cutting back on your calcium intake may raise your risk. New research shows that eating calcium-rich and oxalate-rich foods together lowers your risk for stones by binding the minerals in the stomach and intestines before they can reach the kidneys. Limit salt intake to 2 grams (1 teaspoon) per day. Use limited amounts when cooking, and don't add salt at the table. Processed and canned foods are usually high in salt. Spinach, rhubarb, peanuts, cashews, almonds, grapefruit, and grapefruit juice are all high oxalate foods. You should limit how much of these you eat. Or eat them with calcium-rich foods. These include dairy products, dark leafy greens, soy products, and calcium-enriched foods. Reducing the amount of animal meat and high protein foods in your diet may lower your risk for uric acid stones. Avoid excess sugar (sucrose) and fructose (sweetener in many soft drinks) in your diet. If you take vitamin C as a supplement, don't take more than 1,000 mg a day. A dietitian or your healthcare provider can give you information about changes in your diet that will help prevent more kidney stones from forming.Follow-up careFollow up with your healthcare provider, or as advised, if the pain lasts more than 48 hours. Talk withyour provider about urine and blood tests to find o ut the cause of your stone. If you had an X-ray, CTscan, or other diagnostic test, you will be told of any new findings that may affect your care.Call [phone] if you have any of these: Weakness, dizziness, or faintingWhen to seek medical adviceCall your healthcare provider right away if any of these occur: Pain that is not controlled by the medicine given 5 General Instructions [facility] Emergency Department [address] [place] [address] Phone #: ext- [phone] 12/20/2020 11:28 Patient: MARIVN LEAHY Sex: M : 1990 Age: 30y Repeated vomiting or unable to keep down fluids Fever of 100.4F (38C) or higher, or as directed by your healthcare provider Passage of solid red or brown urine (can't see through it) or urine with lots of blood clots Foul-smelling or cloudy urine Unable to pass urine for 8 hours and increasing bladder pressure [id number] [employer]. [address] [place] [address]. All rights reserved. This information is not intended as asubstitute for professional medical care. Always follow your healthcare professional's instructions.Bladder Infection, Male (Adult)You have a bladder infection.Urine is normally free of bacteria. But bacteria can get into the urinary tract from the skin around therectum. Or it may travel in the blood from other parts of the body.This is called a urinary tract infection (UTI). An infection can occur anywhere in the urinary tract. Itcould be in a kidney (pyelonephritis) or in the bladder (cystitis) and urethra (urethritis). The urethra isthe tube that drains urine from the bladder through the tip of the penis.The most common place for a UTI is in the bladder. This is called a bladder infection. Most bladderinfections are easily treated. They are not serious unless the infection spreads up to the kidney.The terms bladder infection, UTI, and cystitis are often used to describe the same thing. But theyaren't always the same. Cystitis is an inflammation of the bladder. The most common cause of cystitisis an infection. 6 General Instructions [facility] Emergency Department [address] [place] [address] Phone #: ext- [phone] 12/20/2020 11:28 Patient: MARVIN LEAHY Sex: M : 1990 Age: 30yKeep in mind: Infections in the urine are called UTIs. Cystitis is often caused by a UTI. Not all UTIs and cases of cystitis are bladder infections. Bladder infections are the most common type of cystitis.Symptoms of a bladder infectionThe infection causes inflammation in the urethra and bladder. This inflammation causes many of thesymptoms. The most common symptoms of a bladder infection are: Pain or burning when urinating Having to go more often than normal Feeling like you need to go right away Only a small amount of urine comes out Blood in urine Discomfort in your belly (abdomen), often in the lower belly, above the pubic bone Cloudy, strong, or bad-smelling urine Unable to urinate (retention) Urinary incontinence Fever Loss of appet iteOlder adults may also feel confused.Causes of a bladder infectionBladder infections are not contagious. You can't get one from someone else, from a toilet seat, orfrom sharing a bath.The most common cause of bladder infections is bacteria from the bowels. The bacteria get onto theskin around the opening of the urethra. From there they can get into the urine and travel up to thebladder. This causes inflammation and an infection. This often happens because of: An enlarged prostate 7 General Instructions [facility] Emergency Department [address] [place] [address] Phone #: ext- [phone] 12/20/2020 11:28 Patient: MARVIN LEAHY Sex: M : 1990 Age: 30y Poor cleaning of the genitals Procedures that put a tube in your bladder, such as a Little catheter Bowel incontinence Older age Not emptying your bladder (the urine stays there, giving the bacteria a chance to grow) Dehydration (this lets urine to stay in the bladder longer) Constipation (this can cause the bowels to push on the bladder or urethra and keep the bladder from emptying)TreatmentBladder infections are treated with antibiotics. They often clear up quickly without complications.Treatment helps prevent a more serious kidney infection.MedicinesMedicines can help in treating a bladder infection: You may have been given phenazopyridine to ease burning when you urinate. It will cause your urine to be bright orange. It can stain clothing. You may have been prescribed antibiotics. Take this medicine until you have finished it, even if you feel better. Taking all of the medicine will make sure the infection has cleared.You can use acetaminophen or ibuprofen for pain, fever, or discomfort, unless another medicine wasprescribed. You can also alternate them, or use both together. They work differently and are adifferent class of medicines, so taking them together is not an overdose. If you have chronic liver orkidney disease, talk with your healthcare provider before using these medicines. Also talk with yourprovider if you've had a stomach ulcer or GI (gastrointestinal) bleeding or are taking blood thinnermedicines.Home careHere are some guidelines to help you care for yourself at home: Drink plenty of fluids, unless your healthcare provider told you not to. Fluids will prevent dehydration and flush out your bladder. Use good personal hygiene. Wipe from front to back after using the toilet, and clean your penis regularly. If you aren't circumcised, retract the foreskin when cleaning. 8 General Instructions [facility] Emergency Department [address] [place] [address] Phone #: ext- [phone] 12/20/2020 11:28 Patient: MARVIN LEAHY Sex: M : 1990 Age: 30y Urinate more often, and don't try to hold it in for long periods of time, if possible. Wear loose-fitting clothes and cotton underwear. Don't wear tight- fitting pants. This helps keep you clean and dry. Change your diet to prevent constipation. This means eating more fresh foods and more fiber, and less junk and fatty foods. Don't have sex until your symptoms are gone. Don't have caffeine, alcohol, and spicy foods. These can irritate the bladder.Follow-up careFollow up with your healthcare provider, or as advised, if all symptoms have not cleared up in 5 days.It's important to keep your follow- up appointment. You can talk with your provider to see if you needmore tests of the urinary tract. This is especially important if you have infections that keep comingback.If a culture was done, you will be told if your treatment needs to be changed. If directed, you cancall to find out the results.If X-rays were taken, you will be told of any findings that may affect your care.Call [phone] if any of these occur: Trouble breathing Trouble waking up Feeling confused Fainting or loss of consciousness Fast heart rateWhen to get medical adviceCall your healthcare provider right away if any of these occur: Fever of 100.4F (38C) or higher, or as directed by your provider Your symptoms don't improve after 2 days of treatment Back or b pain that gets worse Repeated vomiting, or you aren't able to keep medicine down 9 General Instructions [facility] Emergency Department [address] [place] [address] Phone #: tlc- [phone] 12/20/2020 11:28 Patient: MARVIN LEAHY Sex: M : 1990 Age: 30y Weakness or dizziness [id number] [employer] [place] [address], [place] [address]. All rights reserved. This information is not intended as asubstitute for professional medical care. Always follow your healthcare professional's instructions. You have been given the following additional information: Kidney Stone w/ Colic Bladder Infection, Male (Adult) No strenuous activity for one weeks.(Electronically signed by Corey Mace P.A.-C 12/20/2020 22:53) Name Value Range Interpretation Code Description Data Marifer rce(s) Supporting Document(s) ID Date Data Source [id number] 12/20/2020 11:29:00 AM EST [facility] 1 Clinical Report - Nurses [facility] Emergency Department [address] [place] [address] Phone #: ext- [phone] 12/20/2020 11:28 Patient: MARVIN LEAHY Sex: M : 1990 Age: 30yTRIAGEArrived by EMS. Historian: patient. ( pt seen [facility] with dx kidney stone , [place] ptwas found on floor rocking in pain, EMS started saline lock and gave toradol 15 mg and zofran 4 mg IVwith some relief).Triage time: 11:31 12/20/2020. Acuity: LEVEL 3.Chief Complaint: ABDOMINAL PAIN.11:49 12/20/20.This started today. 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 SEPSIS SCREEN NEGATIVE. No suspected or confirmedsigns of infection present. (11:49 12/20/2020). --11:49 12/20/20 Harry Garza RN11:41 12/20/20. BP: 125/56 (regular adult cuff) taken on the left arm, via an automated monitor, whilelying. MAP: 79. HR: 81. RR: 18. O2 saturation: 95% on room air. Temp: 97.5 F (oral). Pain level now: 03/18.--11:49 12/20/20 Harry Garza RN.Weight: 90.7 kg. Height/Length: 68 inches. BMI: 30.4. --11:41 12/20/20 Harry Garza RN.Med icationsAcetaminophen Oral (Tablet Chewable 325 mg) 2 tablets, 2x a day. Divalproex Sodium Oral (Tablet Delayed Release 250 mg), 2x a day. Eliquis Oral (Tablet 5 mg), 2x a day. Escitalopram Oxalate Oral (Tablet 10 mg), 2x a day. Ivermectin Oral (Tablet 3 mg) 3 tabs, every 6 months. Lidocaine External. Memetasone furoate 15mg , 4x a day. Methocarbamol Oral (Tablet 500 mg), 2x a day. risperiDONE Oral (Tablet Disintegrating 1 mg), 2x a day. traZODone HCl Oral (Tablet 50 mg), daily. Trolamine Salicylate External. Xolair Subcutaneous (Solution Reconstituted 150 mg) 300mg, 3x a week. --11:43 12/20/20 PATSY Shetty HYDROcodone-Acetaminophen Oral (Tablet 5-325 mg) 1 tablet, 4x a day as needed. --11:44 12/20/20Harry Garza RN Flomax Oral 0.4 mg, daily, started yesterday. --11:44 12/20/20 Harry Garza RN 2 Clinical Report - Nurses [facility] Emergency Department [address] [place] [address] Phone #: ext- [phone] 12/20/2020 11:28 Patient: MARVIN LEAHY Sex: M : 1990 Age: 30y Cefdinir Oral 300 mg, 2x a day, started yesterday. --11:44 12/20/20 Harry Garza RN Zofran Oral 4 mg, 3x a day as needed. --11:45 12/20/20 Harry Garza RN.AllergiesSeafood. --11:43 12/20/20 Harry Garza RN.ADDITIONAL SURGERIES:None. --11:45 12/20/20 Harry Garza RN.Fpspwpd55:49 12/20/20.SOCIAL HX: Never smoker. Alcohol use. (rarely). No drug use. No recent travel. No known contactwith a sick individual. He was offered HIV testing but declined and hepatitis C testing but declined. Augusto not traveled outside the [place]Infectious disease exposure: No infectious disease exposure.SELF HARM ASSESSMENT: Self harm assessment was performed. The patient answered "no" to thequestion(s) "Have you recently felt down, depressed, or hopeless?", "Do you have thoughts of harming orkilling yourself?", "Do you have a plan for harming or killing yourself?", "Have you recently had thoughtsabout harming or killing others?", "Do you have any dangerous items in your possession?", "Have younoticed less interest or p dinorah in doing things?", "Are you here because you tried to hurt yourself?" and"Have you ever tried to hurt yourself before today?".ABUSE ASSESSMENT: Abuse history: reports abuse. (no). Abuse assessment. No suspicion of abuse.NUTRITIONAL RISK ASSESSMENT: The nutritional risk assessment revealed no deficiencies.FUNCTIONAL ASSESSMENT: Functional assessment: no impairments note d.LEARNING NEEDS ASSESSMENT: The learning needs assessment revealed no barriers.FALL RISK ASSESSMENT: Fall risk assessment completed. No risk factors identified.SKIN INTEGRITY ASSESSMENT: Skin integrity risk assessment completed. No skin integrity riskidentified. --11:49 12/20/20 TREVOR Walsh MEDICAL HX: No history of diabetes mellitus. No history of gastroesophageal reflux disease,gallstones or peptic ulcer disease. --11:52 12/20/20 Harry Garza RN.Qkjucwfhrxoqk95:49 12/20/20. Identification and allergy band on patient. To room. --11:49 12/20/20 Harry Garza RN.PHYSICAL ASSESSMENT 3 Clinical Report - Nurses [facility] Emergency Department [address] [place] [address] Phone #: [phone] ehr- [phone] 12/20/2020 11:28 Patient: MARVIN LEAHY Sex: M : 1990 Age: 30y 11:51 12/20/20. To room via stretcher. GENERAL / NEURO / P SYCH: Alert. Oriented X 4. Appears in pain. RESPIRATORY: Respirations not labored. Breath sounds within normal limits. CVS: Cardiac rhythm: normal sinus rhythm. Capillary refill less than 2 seconds. GI / : Abdomen soft and nontender. Abdominal tenderness in the left lower quadrant. Bowel sounds within normal limits. SKIN: Skin is warm and dry. --11:51 12/20/20 Harry Garza RN.NURSING PROGRESS NOTES11:15 12/20/2020 Site #1 started prior to arrival by EMS via IV in the left hand with an 20g angiocath; oneattempt. Saline lock flushed with 10 mL saline. --12:56 12/20/20 Harry Garza RN 11:51 12/20/20. Cardiac rhythm: normal sinus rhythm; (1130). research fellow, NIBP monitor and pulse oximeter placed on patient; river rafting guide- Lead II; monitor alarms on; monitor strip added to paper chart. Patient gowned. Head of bed elevated 30 degrees. Two patient identifiers checked. Call light placed in reach. Side rails up x 2. Bed placed in lowest position. Brakes of bed on. Patient ready for evaluation- PA notified. --11:51 12/20/20 Harry Garza RN 12:03 12/20/20. BP: 125/67. MAP: 86. HR: 78. RR: 16. O2 saturation: 96%. --12:03 12/20/20 [employer] follow up managerVerónica, SHILPI Tech1 12:57 12/20/2020 Started bag #1 1000 mL IV Fluids NS; bolus of 1000 mL over 1 hour(s) then at 100 mL/hr over 5 hour(s) via site #1 via IV pump. Allergies verified and confirmed 5 rights. IV patency established. IV site checked: no pain, redness, or swelling. IV flushed thoroughly pre- and post-medication administration. Information reviewed with patient. --12:57 12/20/20 Harry Garza RN 12:57 12/20/2020 Zofran (Ondansetron HCl) IVP 4 mg given over 1 minute(s) via site #1. Allergies verified and confirmed 5 rights. IV patency established. IV site checked: no pain, redness, or swelling. IV flushed thoroughly pre- and post-medication administration. IVP given by RN. Information reviewed with patient. --12:57 12/20/20 Harry Garza RN 12:57 12/20/2020 Tylenol (APAP) PO Tablets 1000 mg given. Allergies verified and confirmed 5 rights. Information reviewed with patient. --12:57 12/20/20 Harry Garza RN 12:58 12/20/2020 Benadryl (diphenhydrAMINE HCl) IVP 25 mg given over 1 minute(s) via site #1. Allergies verified and confirmed 5 rights. IV patency established. IV site checked: no pain, redness, or swelling. IV flushed thoroughly pre- and post-medication administration. IVP given by RN. Information reviewed with patient including sedative warning. --12:58 12/20/20 Harry Garza RN Checked patient name and birthdate: patient confirmed. Blood samples drawn by tech. (1250). --12:58 12/20/20 Harry Garza RN Warming measur es: blanket applied (1300). --12:59 12/20/20 Harry Garza RN 4 Clinical Report - Nurses [facility] Emergency Department [address] [place] [address] Phone #: [phone] ext- [phone] 12/20/2020 11:28 Patient: MARVIN LEAHY Sex: M : 1990 Age: 30y ( 1315 pt appears to be sleeping not disturbed). --13:24 12/20/20 Harry Garza RN 13:49 12/20/20. BP: 121/48. MAP: 72. HR: 79. RR: 16. O2 saturation: 99%. Temp: 98.1 F. Pain level now: 01/16. --13:50 12/20/20 Velma Jimenes RN 14:00 12/20/2020 IV Fluids NS via IV site #1 Discontinued: bag #1 infused. Total amount infused: 1000 mL. --14:35 12/20/20 Harry Garza RN Correction. --14:36 12/20/20 Harry Garza RN 14:36 12/20/2020 IV Fluids NS via IV site #1 Bag Change: bag #1 infused. Total amount infused: 1000. STARTED bag #2 (1000 mL) at 100 mL/hr via IV pump. Confirmed 5 rights. IV patency established. IV site checked: no pain, redness, or swelling. IV flushed thoroughly. --14:36 12/20/20 Harry Garza RN 14:51 12/20/2020 Site #1 removed upon discharge. Catheter intact. Bandaid applied. --15:01 12/20/20 Harry Garza RN 14:51 12/20/2020 IV Fluids NS via IV site #1 Discontinued: bag #2 STOPPED. Total amount infused: 75 mL. IV patency established. IV site checked: no pain, redness, or swelling. IV flushed thoroughly. --15:01 12/20/20 Harry Garza RN.DISPOSITION / DISCHARGE 14:57 12/20/20. Departure time: 14:57 12/20/2020. Condition at departure: improved. No learning barriers present. Disc harge instructions provided and reviewed with the patient. Reviewed medication(s) (no changes). Reviewed rest instructions (increase fluids). Reviewed referral to a urologist. Patient verbalized understanding. Written instructions provided in [place]. The patient was discharged by the physician records management assistant. He was discharged home. He left ambulatory and via private vehicle. Real Estate Leasing Manager driving. --15:02 12/20/20 Harry Garza RN 14:45 12/20/20. BP: 121/52. MAP: 75. HR: 78. RR: 18. O2 saturation: 98%. Temp: 98.1 F (temporal). Pain level now: 02/16. --15:12/20/20 Harry Garza RN.Locked/Released at 09/2021 16:56 by Harry Garza RN Name Value Range Interpretation Code Description Data Marifer rce(s) Supporting Document(s) ID Date Data Source [id number] 12/20/2020 11:29:00 AM [facility] 1 Clinical Report - Physicians/Mid Levels [facility] Emergency Department [address] [place] [address] Phone #: ext- [phone] 12/20/2020 11:28 Patient: MARVIN LEAHY Sex: M : 1990 Age: 30y Time Seen: 12:11 12/20/2020; initial patient contact, initial documentation. Arrived- By ambulance. Historian- patient. RETURN VISIT: recently seen in this ED by another ED physician within past 24 hours. Seen now for the same problem as before. Disposition decision: 14:44 12/20/2020.HISTORY OF PRESENT ILLNESS Chief Complaint: FLANK PAIN. This started today and is still present. It is described as "pain" and sharp and it is described as located in the left flank. The patient has had nausea. (pt seen [facility] with dx kidney stone , this morning on [place] pt was found on floor rocking in pain, EMS started saline lock and gave toradol 15 mg and zofran 4 mg IV with some relief). Similar symptoms previously. Recent medical care: The patient was seen recently at another facility in the emergency department.REVIEW OF SYSTEMS No constipation, black stools, hematemesis, difficulty with urination or pain with urination. No urinary frequency, fever, headache, sore throat or blurred vision. No chest pain, difficulty breathing, cough, joint pain or skin rash. No chills or back pain. The patient has not had weight loss. All other systems reviewed and are negative.PAST HISTORY See nurses notes. Has had urinary calculi. Problems: Hypertension. Lumbar Strain. Hematuria. Chronic Back Pain. DVT - Deep Venous Thrombosis. Ureterolithiasis. Syncope. Renal Colic. Additional Surgeries: None. Medications: Zofran Oral 4 mg, 3x a day as needed. Cefdinir Oral 300 mg, 2x a day, started yesterday. 2 Clinical Report - Physicians/Mid Levels [facility] Emergency Department [address] [place] [address] Phone #: ext- [phone] 12/20/2020 11:28 - Patient: MARVIN LEAHY Sex: M : 1990 Age: 30y Flomax Oral 0.4 mg, daily, started yesterday. HYDROcodone- Acetaminophen Oral (Tablet 5-325 mg) 1 tablet, 4x a day as needed. Acetaminophen Oral (Tablet Chewable 325 mg) 2 tablets, 2x a day. Divalproex Sodium Oral (Tablet Delayed Release 250 mg), 2x a day. Eliquis Oral (Tablet 5 mg), 2x a day. Escitalopram Oxalate Oral (Tablet 10 mg), 2x a day. Ivermectin Oral (Tablet 3 mg) 3 tabs, every 6 months. Lidocaine External. Memetasone furoate 15mg , 4x a day. Methocarbamol Oral (Tablet 500 mg), 2x a day. risperiDONE Oral (Tablet Disintegrating 1 mg), 2x a day. traZODone HCl Oral (Tablet 50 mg), daily. Trolamine Salicylate External. Xolair Subcutaneous (Solution Reconstituted 150 mg) 300mg, 3x a week. Allergies: Seafood.SOCIAL HISTORY Never smoker. Alcohol use. No drug use.ADDITIONAL NOTES The nursing notes have been reviewed.PHYSICAL EXAM Vital Signs: 12/20/2020 11:41 BP: lying 125/56. MAP: 79. HR: 81. RR: 18. O2 saturation: 95% on room air. Temp: 97.5 F. Pain level now: 5/10. Have been reviewed and appear to be correct. Oxygen saturation normal. Appearance: Alert. Oriented X3. No acute distress. ENT: Voice normal. CVS: Normal heart rate and rhythm. No JVD present. Pulses normal. Capillary refill normal. Strong peripheral pulses. Heart sounds normal. Pulses: right radial 2+; left radial 2+; right dorsalis pedis 2+; left dorsalis pedis 2+; right posterior tibial 2+; left posterior tibial 2+. Respiratory: Chest normal on inspection. No respiratory distress. Unlabored respirations. Lungs clear. Good chest movement. Breath sounds normal and equal. Abdomen: Normal inspection. Soft and nontender. Bowel sounds normal. No distention. Back: CVA tenderness. Skin: Skin warm and dry. Extremities: Extremities exhibit normal ROM. No lower extremity edema. No calf tenderness. No lower extremity edema. Neuro: Awake. Alert. Mood/affect normal. Speech normal. No motor deficit. No sensory deficit. Psych: Cognition normal. Thought process and content normal. Insight and judgement normal.LABS, X-RAYS, AND EKG Laboratory Tests: 3 Clinical Report - Physicians/Mid Levels [facility] Emergency Department [address] [place] [address] Phone #: ext- [phone] 12/20/2020 11:28 Patient: MARVIN LEAHY Sex: M : 1990 Age: 30yCBC w Diff: (DERRICK: 12/20/2020 12:50) ( MsgRcvd 12/20/2020 13:21) Final results Test Result Flag Units (Reference) CBC W/AUTOMATED DIFF COMPLETE BLOOD COUNT WBC 5.5 10/uL (4.2 - 11.0) RBC 4.70 10/uL (4.50 - 6.30) HEMOGLOBIN 13.9 L g/dL (14.0 - 16.0) HEMATOCRIT 42.4 % (41.0 - 51.0) MCV 90.2 fL (80.0 - 94.0) MCH 29.6 pg (27.0 - 34.0) MCHC 32.8 g/dL (31.0 - 36.0) RDW 12.4 % (11.5 - 14.8) PLATELETS 192 10/uL (150 - 450) MPV 11.0 H fL (7.4 - 10.4) NEUT 48.0 % (37.0 - 80.0) LYMPH 40.8 H % (25.0 - 40.0) MONO 8.4 H % (3.0 - 8.0) EOS 2.2 % (0.0 - 7.0) BASO 0.4 % (0.0 - 2.0) %IG 0.2 H % (0.0 - 0.0) %NRBC 0.0 % (0.0 - 0.0) #NEUT 2.62 10/uL (2.00 - 6.90) #LYMPH 2.23 10/uL (0.60 - 3.40) #MONO 0.46 10/uL (0.00 - 0.90) #EOS 0.12 10/uL (0.00 - 0.70) #BASO 0.02 10/uL (0.00 - 0.20) #IG 0.01 10/uL (0.00 - 0.10) #NRBC 0.00 10/ uL (0.00 - 0.00) MANUAL DIFF SEE BELOW SEGS 71 % (37 - 80) %LYMPH 24 L % (25 - 40) %MONO 3 % (3 - 8) %EOS 2 % (0 - 7) RBC MORPH SEE BELOW ANISO 1+ A (NORMAL: NONE { SICKLE CELL (NORMAL: NONE SEEN ) PLT EST NORMAL (NORMAL: DELANO COMMENT: CMP: (DERRICK: 12/20/2020 12:50) ( MsgRcvd 12/20/2020 13:39) Final results Test Result Flag Units (Reference) COMPREHENSIVE METABOLIC PANEL COMPREHENSIVE METABOLIC PANEL SODIUM 139 mEq/L (134 - 153) POTASSIUM 3.8 mEq/L (3.6 - 5.0) CHLORIDE 102 mEq/L (98 - 107) CO2 28 MEQ/L (22 - 30) GLUCOSE 84 MG/DL (70 - 99) BUN 5 L MG/DL (7 - 21) CREATININE 1.0 MG/DL (0.7 - 1.5) BUN/CREAT 5 L (8 - 27) TOTAL PROTEIN 7.4 G/DL (6.3 - 8.2) ALBUMIN 4.4 G/DL (3.9 - 5.0) GLOBULIN 3.0 GM/DL (2.4 - 3.2) 4 Clinical Report - Physicians/Mid [facility] Emergency Department [address] [place] [address] Phone #: ext- [phone] 12/20/2020 11:28 Patient: MARVIN LEAHY Sex: M : 1990 Age: 30y A/G RATIO 1.5 (0.8 - 2.0) CALCIUM 9.7 MG/DL (8.4 - 10.2) TOTAL BILI <0.7 MG/DL (0.2 - 1.3) ALKALINE PHOS 70 U/L (38 - 126) SGOT/AST 27 U/L (5 - 40) SGPT/ALT 32 U/L (7 - 56) ANION GAP 9.0 mmol/L (8.0 - 16.0) AGE 30 yrs NON-AA GFR >60 mL/min AFR AMER GFR >60 mL/min Male GFR Interprentation 20-49 yrs >60 mL/min Normal 50-59 yrs >56 mL/min Normal 60-69 yrs >49 mL/min Normal 70-79yrs >42 mL/min Normal 80 and above >35 mL/min Normal Female GFR Interpretation 20-39 yrs >60 mL/min Normal 40-49 yrs >58 mL/min Normal 50-59 yrs >51 mL/min Normal 60-69 yrs >45 mL/min Normal 70-79 yrs >39 mL/min Normal 80 and above >32 mL/min Normal Lipase: (DERRICK: 12/20/2020 12:50) ( [facility] 12/20/2020 13:22) Final results Test Result Flag Units (Reference) LIPASE 29 U/L (13 - 60) Urinalysis: (DERRICK: 12/20/2020 12:50) ( [facility] 12/20/2020 13:40) Final results Test Result Flag Units (Reference) URINALYSIS URINALYSIS SOURCE R COLOR yellow (NORMAL: Yello CLARITY clear (NORMAL: Clear SPEC GRAVITY 1.015 (1.001 - 1.030 pH 8 (5 - 9) GLUCOSE NORM (NORMAL: Negat BILIRUBIN NEG (NORMAL: Negat KETONE NEG (NORMAL: Negat PROTEIN NEG (NORMAL: Negat NITRITE NEG (NORMAL: Negat BLOOD 250 A (NORMAL: Negat LEUK EST NEG (NORMAL: Negat UROBILINOGEN NOR (less than 1.0 MICROSCOPIC See Below WBC 1 - 3 (NORMAL: NONE RBC 10 - 15 A (NORMAL: NONE EPITHELIAL FEW (NORMAL: NONE BACTERIA Trace (NORMAL: NONE CRYSTALS See Below CALCIUM OX 2+ A (NORMAL: NONE.PROGRESS AND PROCEDURES Course of Care: VSS, NAD, AOx3, interacting well and appropriately, no use of accessory muscle, able to speak full sentences, stable, non-toxic looking. Enter room and pt lying peacefully in bed in NAD. Patient stable. Denies any new issues, concerns, or complaints. 5 Clinical Report - Physicians/Mid Levels [facility] Emergency Department [address] [place] [address] Phone #: ext- [phone] 12/20/2020 11:28 Patient: MARVIN LEAHY Sex: M : 1990 Age: 30yReviewed previous//////////////////////////////////////////////////////////////CT ABDOMEN/PELVIS WITHOUT CONTRAST, 12/19/20:There is no comparison. FINDINGS: A 3 mm calculus is seen on axial image 105 in left distal ureter. Additional evidence of renal stone disease is not seen. There is mild left-sided hydronephrosis. Renal mass or right-sided hydronephrosis is not seen. Urinary bladder is unremarkable. Prostate gland is not enlarged. Acute bile pathology, abscess, ascites, or pneumoperitoneum is not seen. Normal appendix is seen, which excludes acute appendicitis. The liver, spleen, pancreas, gallbladder, and adrenal glands are unremarkable. Lung bases are clear. Acute osseous abnormality is not identified. There is mild cardiomegaly and a small pericardial effusion. IMPRESSION: A 3 mm left distal ureteral calculus resulting in mild left-sided hydronephrosis. Mild cardiomegaly and a small pericardial effusion. While performing the above CT examination, radiation dose reduction was accomplished utilizing automated exposure control, adjusting of the mA and kV based on the patient's body size and/or the use of imperative reconstructive techniques.//////////////////////////////////////////////////////////// ///////////////PE demos NV itnact b/l UE and LE. Pt has known stone. ? renal function. Penidng resutls. Pt appearsin NAD. PEnding results.12:42 12/20/20. Witness pt ambulate to the restroom in NAD. Pending results.Reviewed resutls. Noted UTI and normal renal function. Pt was seen, tx'ed, and discharged yesterday,but returned with pain despite outpt tx.Cotnacted urology office, but infomred at surgery, called surgery and infomred at office, called office toconfirm and not there, thus no urology coverage currently.Will call [facility] and consult. Called urology office and pending call back/consult.14:04 12/20/20. Noted that pt is lying peacfully in bed in nad. Pending call back.Called urology (Dr. Marrufo). Discussed pt. Pt has no fever, has appropriate meds rx'ed, and has no 6 Clinical Report - Physicians/Mid Levels [facility] Emergency Department [address] [place] [address] Phone #: ext- [phone] 12/20/2020 11:28 Patient: MARVIN LEAHY Sex: M : 1990 Age: 30y elevated WBC, feels could pass. Does inquire about a urine culture. ? if it has demos any growth yet. Do not have available. will inquire. Reviewed and ntoed that a urine culture was not ordered, will order. Called Dr. Marrufo back and iinformed. Sts taht and agrees wiht above pt can be seen as a outpt. Noted that pt is lying peacefully in bed in NAD. Reviewed results. Enter room and patient lying peacefully in bed in NAD. Patient stable. Denies any new issues, concerns, or complaints. Pt lying peacefully in bed in NAD. VSS, NAD, will discharge and pt agrees. Discussed results with pt. Discussed tx plan with pt. Discussed and counseled on stable condition. Discussed importance of a f/u with PCP. Discussed return to ER criteria. Answered their questions. Indicates that they understand, agree, and will comply with above. Denies any new questions or concerns. Patient has capacity to understand. Discharge decision based on the following: patient's condition is stable; patient's exam is stable; social support is adequate; transportation is a vailable; follow-up is available. Discussed of OTC Motrin and Tylenol to control inflammation and pain management. Informed to follow directions on bottle that are appropriate for age and/or weight. Disposition: Discharged home in good and improved condition. Condition: good and stable.CLINICAL IMPRESSION Left nephrolithiasis with renal colic and urinary tract infection.INSTRUCTIONS Take Tylenol (Acetaminophen) or Motrin (Ibuprofen) as needed for fever control. Take medication according to label instructions. No strenuous activity for one weeks. Drink plenty of fluids. (Please take previous meds as rx'ed (pain meds, Flomax, and antibiotic). Please return if not better. Please f/u with PCP for referrals previously discussed yesterday.). Warnings: GENERAL WARNINGS: Return or contact your physician immediately if your condition worsens or changes unexpectedly, if not improving as expected, or if other problems arise. 7 Clinical Report - Physicians/Mid Levels [facility] Emergency Department [address] [place] [address] Phone #: ext- [phone] 12/20/2020 11:28 Patient: MARVIN LEAHY Sex: M : 1990 Age: 30y SPECIFICALLY, return if you develop fever or vomiting; or if there is no improvement in the pain. Your Current Medications: Your current home medications have been reviewed. CONTINUE TAKING THE FOLLOWING MEDICATIONS: Acetaminophen Oral : Tablet Chewable 325 mg, 2 tablets 2x a day. Cefdinir Oral : 300 mg 2x a day, Started: yesterday. Divalproex Sodium Oral : Tablet Delayed Release 250 mg, 2x a day. Eliquis Oral : Tablet 5 mg, 2x a day. Escitalopram Oxalate Oral : Tablet 10 mg, 2x a day. Flomax Oral : 0.4 mg daily, Started: yesterday. HYDROcodone-Acetaminophen Oral : Tablet 5-325 mg, 1 tablet 4x a day, prn. Ivermectin Oral : Tablet 3 mg, 3 tabs every 6 months. Lidocaine External. Memetasone furoate* : 15mg 4x a day. Methocarbamol Oral : Tablet 500 mg, 2x a day. risperiDONE Oral : Tablet Disintegrating 1 mg, 2x a day. traZODone HCl Oral : Tablet 50 mg, daily. Trolamine Salicylate External. Xolair Subcutaneous : Solution Reconstituted 150 mg, 300mg 3x a week. Zofran Oral : 4 mg 3x a day, prn. Follow-up: Return to the emergency department as needed. Follow up with your healthcare provider in about two days if not better. Call for an appointment. Understanding of the discharge instructions verbalized by patient.(Electronically signed by Corey Mace P.A.-C 12/20/2020 22:53) Name Value Range Interpretation Code Description Data Marifer rce(s) Supporting Document(s) ID Date Data Source [id number] 12/25/2020 06:41:00 AM [facility] Name Value Range Interpretation Code Description Data Marifer rce(s) Supporting Document(s) CULTURE URINE [facility]ital _CULTURE URINE_$$[id number]$$[id number]$$[id number]$$[id number]$$341952$$229250$$968002$$[id number]$$[id number]$$ [id number]$$379219$$491723$$143020$$288193$$162900$$052123$$997498$$053051$$234593$$ 345799$$315905$$879265$$047883$$479824$$101657$$895633$$[id number] -- Continued on next page --Patient: TOSIN Rivera Order: [id number] Page 2Culture: CULTURE URINE Status: Final ==== -- Continued on next page --Patient: TOSIN Rivera Order: [id number] Page 2Culture: CULTURE URINE Status: Prelim =====$$[id number] DATE/TIME: 12/24/2020 16:06Culture: CULTURE URINE Status: FinalUrine Culture,Comprehensive: P1No growth in 36 - 48 hours. Previous result entered on 12/23/2020 03:00 ET No growth after 18-24 hours.P1 Test performed by: [facility] Irlanda STEIN #: [id number] [address] [place] [address] [id number] [facility] [id number] Director : Steve Prater MD NPI #:Lab Di fiorella : 12/24/20.0618.XMT.SENT REF 12/25/20.0641.XMT.SENT REF ID Date Data Source [id number] 12/20/2020 01:39:00 PM EST [facility] Name Value Range Interpretation Code Description Data Marifer rce(s) Supporting Document(s) UR[facility]ALYSIS [facility] URINALYSIS SOURCE R [facility] COLOR yellow NORMAL: Yellow [facility] CLARITY clear NORMAL: Clear [facility] Specific gravity of Urine by Test strip 1.015 1.001 - 1.030 [facility] pH 8 5 - 9 [facility] Glucose [Mass/volume] in Urine by Test strip NORM NORMAL: Negat xiomara [facility] Bilirubin.total [Presence] in Urine by Test strip NEG NORMAL: Negative [facility] Ketones [Presence] in Urine by Test strip NEG NORMAL: Negative [facility] Protein [Mass/volume] in Urine by Test strip [facility] Nitrite [Presence] in Urine by Test strip NEG NORMAL: Negative [facility] BLOOD 250 NORMAL: Negative A [facility] Leukocyte esterase [Presence] in Urine by Test strip NEG DELANO L: Negative [facility] Urobilinogen [Mass/volume] in Urine by Test strip NOR less fidelia n 1.0 mg/dL [facility] MICROSCOPIC See Below [facility] WBC 1 - 3 NORMAL: NONE SEEN [facility] Erythrocytes [#/volume] in Urine by Test strip 10 - 15 NORMAL: NON E SEEN A [facility] EPITHELIAL FEW NORMAL: NONE SEEN [facility] Bacteria [Presence] in Urine sediment by Light microscopy Tr du NORMAL: NONE SEEN [facility] Crystals [type] in Urine sediment by Light microscopy See Below [facility] CALCIUM OX 2+ NORMAL: NONE SEEN A [facility] ID Date Data Source [id number] 12/20/2020 01:39:00 PM EST [facility] Name Value Range Interpretation Code Description Data Marifer rce(s) Supporting Document(s) COMPREHENSIVE METABOLIC PANEL [facility] COMPREHENSIVE METABOLIC PANEL Sodium [Moles/volume] in Serum or Plasma 139 mEq/L 134 - 153 [facility] Potassium [Moles/volume] in Serum or Plasma 3.8 mEq/L 3.6 - 5.0 [facility] Chloride [Moles/volume] in Serum or Plasma 102 mEq/L 98 - 107 [facility] Carbon dioxide, total [Moles/volume] in Serum or Plasma 28 MEQ/L 22 - 30 [facility] Glucose [Mass/volume] in Serum or Plasma 84 MG/DL 70 - 99 [facility] BUN 5 MG/DL 7 - 21 [facility] Creatinine [Mass/volume] in Serum or Plasma 1.0 MG/DL 0.7 - 1.5 [facility] BUN/CREAT 5 8 - 27 L [facility] Protein [Mass/volume] in Serum or Plasma 7.4 G/DL 6.3 - 8.2 [facility] Albumin [Mass/volume] in Serum or Plasma 4.4 G/DL 3.9 - 5.0 [facility] Globulin [Mass/volume] in Serum by calculation 3.0 GM/DL 2.4 - 3.2 [facility] A/G RATIO 1.5 0.8 - 2.0 [facility] Calcium [Mass/volume] in Serum or Plasma 9.7 MG/DL 8.4 - 10.2 [facility] Bilirubin.total [Mass/volume] in Serum or Plasma <0.7 MG/DL 0.2 - 1.3 [facility] Alkaline phosphatase [Enzymatic activity/volume] in Serum or Plasma 70 U/L 38 - 126 [facility] Aspartate aminotransferase [Enzymatic activity/volume] in Serum or Plasma 27 U/L 5 - 40 [facility] Alanine aminotransferase [Enzymatic activity/volume] in Seru m or Plasma 32 U/L 7 - 56 [facility] Anion gap 3 in Serum or Plasma 9.0 mmol/L 8.0 - 16.0 [facility] AGE 30 yrs [facility] NON-AA GFR >60 mL/min [facility] AFR AMER GFR >60 mL/min [facility] Male GFR In terprentation 20-49 yrs >60 mL/min Normal 50-59 yrs >56 mL/min Normal 60-69 yrs >49 mL/min Normal 70-79yrs >42 mL/min Normal 80 and above >35 mL/min Normal Female GFR Interpretation 20-39 yrs >60 mL/min Normal 40-49 yrs >58 mL/min Normal 50-59 yrs >51 mL/min Normal 60-69 yrs >45 mL/min Normal 70-79 yrs >39 mL/min Normal 80 and above >32 mL/min Normal ID Date Data Source [id number] 12/20/2020 01:22:00 PM EST [facility] Name Value Range Interpretation Code Description Data Marifer rce(s) Supporting Document(s) Lipase [Enzymatic activity/volume] in Serum or Plasma 29 U/L 13 - 60 [facility] ID Date Data Source [id number] 12/20/2020 01:18:00 PM EST [facility] Name Value Range Interpretation Code Description Data Marifer rce(s) Supporting Document(s) CBC W/AUTOMATED DIFF [facility] COMPLETE BLOOD COUNT Leukocytes [#/volume] in Blood by Automated count 5.5 10^3/uL 4.2 - 1 1.0 [facility] Erythrocytes [#/volume] in Blood by Automated count 4.70 10^6/uL 4. 50 - 6.30 [facility] Hemoglobin [Mass/volume] in Blood 13.9 g/dL 14.0 - 16.0 L [facility] Hematocrit [Volume Fraction] of Blood by Automated count 42.4 % 4 1.0 - 51.0 [facility] Erythrocyte mean corpuscular volume [Entitic volume] by Auto mated count 90.2 fL 80.0 - 94.0 [facility] Erythrocyte mean corpuscular hemoglobin [Entitic mass] by Automated count 29.6 pg 27.0 - 34.0 [facility] Erythrocyte mean corpuscular hemoglobin concentration [Mass/volume] by Automated count 32.8 g/dL 31.0 - 36.0 [facility] Erythrocyte distribution width [Ratio] by Automated count 12.4 % 11.5 - 14.8 [facility] Platelets [#/volume] in Blood by Automated count 192 10^3/uL 150 - 45 0 [facility] Platelet mean volume [Entitic volume] in Blood by Automated count 11.0 fL 7.4 - 10.4 H [facility] Neutrophils/100 leukocytes in Blood by Automated count 48.0 % 37. 0 - 80.0 [facility] Lymphocytes/100 leukocytes in Blood by Manual count 40.8 % 25.0 - 40.0 H [facility] Monocytes/100 leukocytes in Blood by Automated count 8.4 % 3.0 - 8.0 H [facility] Eosinophils/100 leukocytes in Blood by Automated count 2.2 % 0.0 - 7.0 [facility] Basophils/100 leukocytes in Blood by Automated count 0.4 % 0.0 - 2.0 [facility] %IG 0.2 % 0.0 - 0.0 [facility] %NRBC 0.0 % 0.0 - 0.0 [facility] Neutrophils [#/volume] in Blood by Automated count 2.62 10^3/uL 2.00 - 6.90 [facility] Lymphocytes [#/volume] in Blood by Automated count 2.23 10^3/uL 0.60 - 3.40 [facility] Monocytes [#/volume] in Blood by Automated count 0.46 10^3/uL 0.00 - 0.90 [facility] Eosinophils [#/volume] in Blood by Automated count 0.12 10^3/uL 0.00 - 0.70 [facility] Basophils [#/volume] in Blood by Automated count 0.02 10^3/uL 0.00 - 0.20 [facility] #IG 0.01 10^3/uL 0.00 - 0.10 [facility] #NRBC 0.00 10^3/uL 0.00 - 0.00 [facility] MANUAL DIFF SEE BELOW [facility] Segmented neutrophils/100 leukocytes in Blood by Manual count 71 % 37 - 80 [facility] %LYMPH 24 % 25 - 40 L [facility] %MONO 3 % 3 - 8 [facility] %EOS 2 % 0 - 7 [facility] RBC MORPH SEE BELOW [facility] Anisocytosis [Presence] in Blood by Light microscopy 1+ DELANO L: NONE SEEN A [facility] { SICKLE CELL (NORMAL: NONE SEEN ) Platelet adequacy [Presence] in Blood by Light microscopy NORMAL NORMAL: NORMAL [facility] COMMENT: ID Date Data Source [id number] 12/19/2020 02:54:00 PM EST [facility] [address] [place] [address] PHONE: [phone] FAX: [phone] Name .................. : TOSIN MARVIN Cristino Acct Number.................. : [id number] ROOM. ................. : TR-02 Number ................... : [id number] Stay type ............. : E/R Discharge Date......... ... : Admit Date ......... : 12/19/20 Admit Phys .................... : CHERYL OLVERA Date of ....... : 1990 Family Phys ................... : NON STAFF Phone .................. : [phone] Age ................................ : 30 Film# .................. .:[id number] Sex ................................. : M Unsigned transcriptions are preliminary reports and do not represent a medical or legal document CT ABD & PELV W/O ORAL W/[place] [id number] COMPLETE:12/19/20 11:02 [facility] 3982 Reason(s): sudden left flank pain CT ABDOMEN/PELVIS WITHOUT CONTRAST, 12/19/20: There is no comparison. FINDINGS: A 3 mm calculus is seen on axial image 105 in left distal ureter. Additional evidence of renal stone disease is not seen. There is mild left-sided hydronephrosis. Renal mass or right-sided hydronephrosis is not seen. Urinary bladder is unremarkable. Prostate gland is not enlarged. Acute bile pathology, abscess, ascites, or pneumoperitoneum is not seen. Normal appendix is seen, which excludes acute appendicitis. The liver, spleen, pancreas, gallbladder, and adrenal glands are unremarkable. Lung bases are clear. Acute osseous abnormality is not identified. There is mild cardiomegaly and a small pericardial effusion. IMPRESSION: A 3 mm left distal ureteral calculus resulting in mild left-sided hydronephrosis. Mild cardiomegaly and a small pericardial effusion. While performing the above CT examination, radiation dose reduction was accomplished utilizing automated exposure control, adjusting of the mA and kV based on the patient's body size and/or the use of imperative reconstructive techniques. CT dose 829.2 mGycm. Electronically Reviewed and Signed By Nimco Bradley MD , 12/19/20 14:54, KGG Transcribe Initials: SSR, Transcribe Date: 12/19/20 13:05, Dictation Date: Page 1 of 2 [place] [address] PHONE: [phone] FAX: [phone] Name .................. : TOSIN Rivera Acct Number.................. : [id number] ROOM. ................. : TR MR Number ................... : [id number] Stay type ............. : E/R Discharge Date......... ... : Admit Date ......... : 12/19/20 Admit Phys .................... : CHERYL OLVERA Date of ....... : 1990 Family Phys ................... : NON STAFF Phone .................. : [phone] Age ................................ : 30 Film# .................. .:[id number] Sex ................................. : M Unsigned transcriptions are preliminary reports and do not represent a medical or legal document CT ABD & PELV W/[place] [id number] COMPLETE:12/19/20 11:02 [facility] 3982 Reason(s): sudden left flank pain Copy for: 010 EMERGENCY SRV Copy for: EMERGENCY DEPT via modem Copy for: 710 MED REC Page 2 of 2 Name Value Range Interpretation Code Description Data Marifer rce(s) Supporting Document(s) ID Date Data Source [id number] 12/19/2020 09:11:00 AM EST [facility] 1 OrderSheet [facility] Emergency Department [address] [place] [address] Phone #: ext- [phone] 12/19/2020 09:10 Patient: MARVIN LEAHY Sex: M : 1990 Age: 30yWEIGHT:90.7 kg (S) HEIGHT:68 inches (S) BMI:30.4ALLERGIES: SeafoodCHIEF COMPLAINT: flank painDIAGNOSIS: Ureteric stone, Renal colicLAB ORDERSOrder Description Priority Entered Acknowledged InitialedCBC w Diff STAT 09:41 12/19/2020 09:51 Letty, Turrin, Brant Aster R.N. M.D.;CMP STAT 09:41 12/19/2020 09:51 Letty, Turrin, Brant Aster R.N. M.D.;Lipase STAT 09:41 12/19/2020 09:51 Letty, Turrin, Brant Aster R.N. M.D.;Urinalysis (Clean STAT 09:41 12/19/2020 09:51 Letty,Catch) Turrin, Brant Aster R.N. M.D.;Lactic Acid STAT 09:41 12/19/2020 09:51 Letty, Turrin, Brant Aster R.N. M.D.;DIAGNOSTIC STUDY ORDERSOrder Description Priority Entered Acknowledged InitialedCT ABD PEL W/O STAT 09:41 12/19/2020 10:09 Letty,Oral W/O IV Turrin, Brant Aster R.N.Contrast M.D.;(Oxygen?(No))(IV?(Yes)) Reason for Study: sudden left flank painMEDICATION/IV/DRIP/FLUID ORDERSOrder Description Priority Entered Acknowledged InitialedToradol 15 mg IVP 09:41 12/19/2020 09:52 Letty,X1 dose: 15 mg Turrin, Brant Aster R.N.(NOW x1) M.D.;Zofran 4 mg IVP X 1 09:41 12/19/2020 09:51 Letty, 2 OrderSheet [facility] Emergency Department [address] [place] [address] Phone #: ext- [phone] 12/19/2020 09:10 Patient: MARVIN LEAHY Sex: M : 1990 Age: 30ydose: 4 mg (NOW Turrin, Brant Aster R.N.x1) M.D.;Ativan IVP 2 mg 09:41 12/19/2020 09:51 Letty(HIGH ALERT Cheryl, Brant Aster R.N.MEDICATION) LanceDYang;NS IV : Bolus 250 09:42 12/19/2020 10:05 Letty,mL, then 100 mL/hr Brant Luna R.N. MSea;Flomax PO 0.4 mg 10:55 12/19/2020 11:28 Letty(NOW x1, Do not Cheryl, Brant Jaramillossica R.N.crush or chew) Bharat;cefTRIAXone 10:56 12/19/2020 11:28 Letty,(1gm/50ml) IVPB Brant Luna RYangNYang1000 mg with M.D.;Dextrose 50 mlspike bag (D5W)GENERAL ORDERSOrder Description Priority Entered Acknowledged InitialedNPO 09:41 12/19/2020 09:51 Cheryl Saenz Riccardo Jessica R.N. M.D.;Saline Lock 09:41 12/19/2020 09:51 Cheryl Saenz Riccardo Jessica R.N. M.D.;[Electronically signed by Aster Saenz R.N. (13:41 12/19/2020)][Electronically signed by Brant Luna M.D. (13:49 12/19/2020)][Electronically locked by Aster Saenz R.N. (13:41 12/19/2020)] Name Value Range Interpretation Code Description Data Marifer rce(s) Supporting Document(s) ID Date Data Source [id number] 12/19/2020 09:11:00 AM EST [facility] 1 Medication Reconciliation Report [facility] Emergency Department [address] [place] [address] Phone #: ext- [phone] 12/19/2020 09:10 Patient: MARVIN LEAHY Sex: M : 1990 Age: 30yWeight: 90.7 kgHeight/Length: 68 in.BMI: 30.4ALLERGIES: SeafoodThe patient's Home Medications are listed below:CONTINUE TAKING THE FOLLOWING MEDICATIONS: Acetaminophen Oral (325 mg) 2 tablets, 2x a day Divalproex Sodium Oral (250 mg), 2x a day Eliquis Oral (5 mg), 2x a day Escitalopram Oxalate Oral (10 mg), 2x a day Ivermectin Oral (3 mg) 3 tabs, every 6 months Lidocaine External Memetasone furoate 15mg , 4x a day Methocarbamol Oral (500 mg), 2x a day risperiDONE Oral (1 mg), 2x a day traZODone HCl Oral (50 mg), daily Trolamine Salicylate External Xolair Subcutaneous (150 mg) 300mg, 3x a weekThe source(s) of the original Home Medication information:patientThe following Medications were given to the patient in the Emergency Department: 2 Medication Reconciliation Report [facility] Emergency Department [address] [place] [address] Phone #: ext- [phone] 12/19/2020 09:10 Patient: MARVIN LEAHY Sex: M : 1990 Age: 30yAtivan [IVP] IVP 2 mg, administered: 09:51 12/19/2020Zofran [IVP] IVP 4 mg, administered: 09:51 12/19/2020Toradol [IVP] IVP 15 mg, administered: 09:47 02/10/2021NS [IV] IV Fluids bolus 250 mL over 15 minute(s), administered: 10:05 12/19/2020Flomax [PO] PO 0.4 mg, administered: 11:28 12/19/2020EFTRIAXONE (1GM/50ML) [IVPB] IVPB bolus 0, then 1 gm 100 mL/hr, administered: 11:28 2020The following Medications were prescribed to the patient:hydrocodone 5 mg- acetaminophen 325 mg tablet Take 1 tablet four times a day as needed for pain for 3days -- Dispense 12 tablet. Refills: 0. Substitution permitted.[address] ; [place] [address]. .Flomax 0.4 mg capsule Take 1 capsule once a day for 7 days -- Dispense 7 capsule. Refills: 0.Substitution permitted.[address] ; [place] [address]. .cefdinir 300 mg capsule Take 1 capsule twice a day for 7 days -- Dispense 14 capsule. Refills: 0.Substitution permitted.[address] ; [place] [address]. .Zofran 4 mg tablet Take 1 tablet three times a day as needed for 4 days -- Dispense 12 tablet. Refills: 0.Substitution permitted.[address] ; [place] [address]. . -- Brant Luna M.D. Name Value Range Interpretation Code Description Data Marifer rce(s) Supporting Document(s) ID Date Data Source [id number] 12/19/2020 09:11:00 AM EST [facility] 1 Medication Administration Record [facility] Emergency Department [address] [place] [address] Phone #: [phone]- [phone] 12/19/2020 09:10 Patient: MARVIN LEAHY Sex: M : 1990 Age: 30yWeight: 90.7 kgHeight/Length: 68 inBMI: 30.4ALLERGIES: Seafood Date/Time Medication Administered Medication OrderedGiven TORADOL [IVP] (KETOROLAC Toradol 15 mg IVP X1 dose: 15 mg09:47 12/19/2020 TROMETHAMINE) (NOW x1)Aster Saenz R.N. Dose: 15 mg IVP Site: #1 left handGiven ZOFRAN [IVP] (ONDANSETRON HCL) Zofran 4 mg IVP X 1 dose: 4 mg09:51 12/19/2020 Dose: 4 mg IVP (NOW x1)Aster Saenz R.N. Site: #1 left handGiven ATIVAN [IVP] (LORAZEPAM) Ativan IVP 2 mg (HIGH ALERT09:51 12/19/2020 Dose: 2 mg IVP MEDICATION)Aster Saenz R.N. Site: #1 left handStart NS [IV] NS IV : Bolus 250 mL, then 58746:05 12/19/2020 Dose: IV Fluids mL/hrAster Saenz R.N. Bolus: 250 mL over 15 minute(s)---- Dispensed: 250 mL bagStop Site: #1 left hand13:12 12/19/2020Aster Saenz R.N.Given FLOMAX [PO] (TAMSULOSIN HCL) Flomax PO 0.4 mg (NOW x1, Do11:28 12/19/2020 Dose: 0.4 mg Capsules PO not crush or chew)Aster Saenz R.N.Start CEFTRIAXONE (1GM/50ML) [IVPB] cefTRIAXone (1gm/50ml) IVPB11:28 12/19/2020 Dose: 1 gm IVPB 1000 mg with Dextrose 50 ml Aster Davila R.N. Rate: 100 mL/hr over 30 minute(s) bag (D5W)---- Dispensed: 50 mL bagStop Site: #1 left hand12:00 12/19/2020Atser Saenz R.N. Name Value Range Interpretation Code Description Data Marifer rce(s) Supporting Document(s) ID Date Data Source [id number] 12/19/2020 09:11:00 AM EST [facility] 1 General Instructions [facility] Emergency Department [address] [place] [address] Phone #: ext- [phone] 12/19/2020 09:10 Patient: MARVIN LEAHY Sex: M : 1990 Age: 30y Left renal colic in the left ureter with a single calculus with hydronephrosis. Ureterolithiasis (single stone) in the left ureter with renal colic and hydronephrosis. Pericardial Effusion (mild) with mild Cardiomegaly (incidental findings).INSTRUCTIONS No strenuous activity until better. Return to work in three days. Drink plenty of fluids. Avoid alcohol. Avoid fatty, fried/greasy, lactose-containing (such as milk, cheese and ice cream), salty and spicy foods. No alcohol. Do not smoke. (PLEASE FOLLOW UP WITH UROLOGY, DR. WILLETT, IN NEXT WEEK; PLEASE FOLLOW UP WITH CARDIOLOGY, DR. SHI, ALSO SOON TO EVALUATE YOUR HEART AND ITS SIZE). Warnings: Further evaluation is necessary in order to conduct further tests (Urology and Cardiology). It is very important to follow up with a healthcare provider. GENERAL WARNINGS: Return or contact your physician immediately if your condition worsens or changes unexpectedly, if not improving as expected, or if other problems arise. SPECIFICALLY, return if you develop pain in the abdomen, pelvis, testicle, back or shoulder, fever, vomiting, the inability to keep fluids down, blood in vomitus, blood in diarrhea, fainting or lightheadedness. Your Current Medications: Your current home medications have been reviewed. CONTINUE TAKING THE FOLLOWING MEDICATIONS: Acetaminophen Oral : Tablet Chewable 325 mg, 2 tablets 2x a day. Divalproex Sodium Oral : Tablet Delayed Release 250 mg, 2x a day. Eliquis Oral : Tablet 5 mg, 2x a day. Escitalopram Oxalate Oral : Tablet 10 mg, 2x a day. Ivermectin Oral : Tablet 3 mg, 3 tabs every 6 months. Lidocaine External. Memetasone furoate* : 15mg 4x a day. Methocarbamol Oral : Tablet 500 mg, 2x a day. risperiDONE Oral : Tablet Disintegrating 1 mg, 2x a day. traZODone HCl Oral : Tablet 50 mg, daily. Trolamine Salicylate External. Xolair Subcutaneous : Solution Reconstituted 150 mg, 300mg 3x a week. Prescription Medications: hydrocodone 5 mg-acetaminophen 325 mg tablet Take 1 tablet four times a day as needed for pain for 3 days -- Dispense 12 tablet. Refills: 0. Substitution permi tted. 2 General Instructions [facility] Emergency Department [address] [place] [address] Phone #: ext- [phone] 12/19/2020 09:10 Patient: MARVIN LEAHY Sex: M : 1990 Age: 30yPharmacy - [facility] [id number] ; [place] [address]. .Flomax 0.4 mg capsule Take 1 capsule once a day for 7 days -- Dispense 7 capsule. Refills: 0.Substitution permitted.Pharmacy - [facility] [id number] ; [place] [address]. .cefdinir 300 mg capsule Take 1 capsule twice a day for 7 days -- Dispense 14 capsule. Refills: 0.Substitution permitted.[facility] [address] ; [place] [address]. .Zofran 4 mg tablet Take 1 tablet three times a day as needed for 4 days -- Dispense 12 tablet. Refills: 0.Substitution permitted.[facility] [address] ; [place] [address]. .Follow-up:Return to the emergency department as needed. Follow up with a placing judge and urologist in three dayseven if well. Call for an appointment. Reason for referral: evaluation and treatment. Summary of careprovided to patient via paper.Understanding of the discharge instructions verbalized by patient. Expected course of illness, dischargeinstructions, activity level, diet, prescriptions x4, follow-up appointment and risks and benefits of treatmentreviewed with patient and understanding verbalized. Agrees to plan of care. ADDITIONAL INFORMATIONGabriel Stone with Pain 3 General Instructions [facility] Emergency Department [address] [place] [address] Phone #: ext- [phone] 12/19/2020 09:10 Patient: MARVIN LEAHY Sex: M : 1990 Age: 30yThe sharp cramping pain on either side of your lower back and nausea/vomiting that you have arebecause of a small stone that has formed in the kidney. It is now passing down a narrow tube (ureter)on its way to your bladder. Once the stone reaches your bladder, the pain will often stop. But it maycome back as the stone continues to pass out of the bladder and through the urethra. The stone maypass in your urine stream in one piece. The size may be 1/16 inch to 1/4 inch (1 mm to 6 mm). Or, thestone may break up into fabián fragments that you may not even notice.Once you have had a kidney stone, you are at risk of getting another one in the future. There are 4types of kidney stones. Eighty percent are calcium stones--mostly calcium oxalate but also somewith calcium phosphate. The other 3 types include uric acid stones, struvite stones (from a precedinginfection), and rarely, cystine stones.Most stones will pass on their own, but may take from a few hours to a few days. Sometimes thestone is too large to pass by itself. In that case, the healthcare provider will need to use other ways toremove the stone. These techniques include: Lithotripsy. This uses ultrasound waves to break up the stone. Ureteroscopy. This pushes a basket-like instrument through the urethra and bladder and into the ureter to pull out the stone. Various types of direct surgery through [place] [address] General Instructions [facility] Emergency Department [address] [place] [address] Phone #: ext- [phone] 12/19/2020 0 9:10 Patient: MARVIN LEAHY Sex: M : 1990 Age: 30yThe following are general care guidelines: Drink plenty of fluids. This means at least 12, 8-ounce glasses of fluid--mostly water--a day. Each time you urinate, do so in a jar. Pour the urine from the jar through the strainer and into the toilet. Continue doing this until 24 hours after your pain stops. By then, if there was a kidney stone, it should pass from your bladder. Some stones dissolve into sand-like particles and pass right through the strainer. In that case, you won't ever see a stone. Save any stone that you find in the strainer and bring it to your healthcare provider to look at. It may be possible to stop certain types of stones from forming. For this reason, it is important to know what kind of stone you have. Try to stay as active as possible. This will help the stone pass. Don't stay in bed unless your pain keeps you from getting up. You may notice a red, pink, or brown color to your urine. This is normal while passing a kidney stone. If you develop pain, you may take ibuprofen or naproxen for pain, unless another medicine was prescribed. If you have chronic liver or kidney disease, talk with your healthcare provider before taking these medicines. Also talk with your provider if you've had a stomach ulcer or GI bleeding.Preventing stonesEach year for the next 5 to 7 years, you are at risk that a new stone will form. Your risk is a 50%chance over this time period. The risk is higher if you have a family history of kidney stones or havecertain chronic illnesses like hypertension, obesity, or diabetes. But you can make changes to yourlifestyle and diet that can lower your risk for another stone.Most kidney stones are made of calcium. The following is advice for preventing another calciumstone. If you don't know the type of stone you have, follow this advice until the cause of your stone isfound.Things that help: The most important thing you can do is to drink plenty of fluids each day. See home care above. Eat foods that contain phytates. These include wheat, rice, rye, barley, and beans. Phytates are substances that may lower your risk for any type of stone to form. Eat more fruits and vegetables. Choose those that are high in potassium. Eat foods high in natural citrate like fruit and low-sugar fruit juices. Having too little calcium in your diet can put you at risk for calcium kidney stones. Eat a 5 General Instructions [facility] Emergency Department [address] [place] [address] Phone #: ext- [phone] 12/19/2020 09:10 [id number] Sex: M : 1990 Age: 30y normal amount of calcium in your diet and talk with your healthcare provider if you are taking calcium supplements. Cutting back on your calcium intake may raise your risk. New research shows that eating calcium-rich and oxalate-rich foods together lowers your risk for stones by binding the minerals in the stomach and intestines before they can reach the kidneys. Limit salt intake to 2 grams (1 teaspoon) per day. Use limited amounts when cooking, and don't add salt at the table. Processed and canned foods are usually high in salt. Spinach, rhubarb, peanuts, cashews, almonds, grapefruit, and grapefruit juice are all high oxalate foods. You should limit how much of these you eat. Or eat them with calcium-rich foods. These include dairy products, dark leafy greens, soy products, and calcium-enriched foods. Reducing the amount of animal meat and high protein foods in your diet may lower your risk for uric acid stones. Avoid excess sugar (sucro se) and fructose (sweetener in many soft drinks) in your diet. If you take vitamin C as a supplement, don't take more than 1,000 mg a day. A dietitian or your healthcare provider can give you information about changes in your diet that will help prevent more kidney stones from forming.Follow-up careFollow up with your healthcare provider, or as advised, if the pain lasts more than 48 hours. Talk withyour provider about urine and blood tests to find out the cause of your stone. If you had an X-ray, CTscan, or other diagnostic test, you will be told of any new findings that may affect your care.Call [phone] if you have any of these: Weakness, dizziness, or faintingWhen to seek medical adviceCall your healthcare provider right away if any of these occur: Pain that is not controlled by the medicine given Repeated vomiting or unable to keep down fluids Fever of 100.4F (38C) or higher, or as directed by your healthcare provider Passage of solid red or brown urine (can't see through it) or urine with lots of blood clots 6 General Instructions [facility] Emergency Department [address] [place] [address] Phone #: ext- [phone] 12/19/2020 09:10 Patient: MARVIN LEAHY Sex: M : 1990 Age: 30y Foul-smelling or cloudy urine Unable to pass urine for 8 hours and increasing bladder pressure [id number] [employer] [place] [address], [place] [address]. All rights reserved. This information is not intended as asubstitute for professional medical care. Always follow your healthcare professional's instructions. You have been given the following additional information: Kidney Stone w/ Colic No strenuous activity until better. Return to work in three days.(Electronically signed by Bratn Luna M.D. 12/19/2020 13:49) Name Value Range Interpretation Code Description Data Marifer rce(s) Supporting Document(s) ID Date Data Source [id number] 12/19/2020 09:11:00 AM [facility] 1 Clinical Report - Nurses [facility] Emergency Department [address] [place] [address] Phone #: ext- [phone] 12/19/2020 09:10 Patient: MARVIN LEAHY Sex: M : 1990 Age: 30yTRIAGEArrived by EMS. Historian: patient.Chief Complaint: (left flank/ LLQ/ left groin pain).Onset. (0200). No fever, testicular pain or inguinal swelling. 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 Medications given- ondansetron (fentanyl 50 mcg/ zofran 4mg). ( my Medic Mauri A).--09:16 12/19/20 Aster Saenz R.N.Acuity: LEVEL 3.Alert. No acute distress. --09:17 12/19/20 Aster Saenz R.N.09:17 12/19/20. BP: 122/74. MAP: 90. HR: 82. RR: 16. O2 saturation: 96%. Temp: 98.1 F. Pain level now:04/18. --09:17 12/19/20 Aster Saenz R.N.Weight: 90.7 kg stated. Height/Length: 68 inches Per Patient. BMI: 30.4. --09:11 12/19/20 Aster Saenz R.N.MedicationsAcetaminophen Oral (Tablet Chewable 325 mg) 2 tablets, 2x a day. Divalproex Sodium Oral (Tablet Delayed Release 250 mg), 2x a day. Eliquis Oral (Tablet 5 mg), 2x a day. Escitalopram Oxalate Oral (Tablet 10 mg), 2x a day. Ivermectin Oral (Tablet 3 mg) 3 tabs, every 6 months. Lidocaine External. Memetasone furoate 15mg , 4x a day. Methocarbamol Oral (Tablet 500 mg), 2x a day. risperiDONE Oral (Tablet Disintegrating 1 mg), 2x a day. traZODone HCl Oral (Tablet 50 mg), daily. --09:15 12/19/20 Aster Saenz R.N. Trolamine Salicylate External. Xolair Subcutaneous (Solution Reconstituted 150 mg) 300mg, 3x a week. --09:15 12/19/20 Aster Saenz R.N.AllergiesSeafood. --09:15 12/19/20 Aster Saenz R.N.PROBLEMS:DVT - Deep Venous Thrombosis. --09:15 12/19/20 Aster Saenz R.N. 2 Clinical Report - Nurses [facility] Emergency Department [address] [place] [address] Phone #: ext- [phone] 12/19/2020 09:10 Patient: MARVIN LEAHY Sex: M : 1990 Age: 30y Medication/allergy information source: the patient. --09:16 12/19/20 Aster Saenz R.N. History PAST MEDICAL HX: Im munizations: up-to-date. SOCIAL HX: Never smoker. Occasional alcohol use. No drug use. He was offered HIV testing but declined and hepatitis C testing but declined. He has not traveled outside the [place] Infectious disease exposure: No infectious disease exposure. The patient was not exposed to C-diff, MRSA, VRE or CRE. SELF HARM ASSESSMENT: Self harm assessment was performed. The patient answered "no" to the question(s) "Have you recently felt down, depressed, or hopeless?", "Do you have thoughts of harming or killing yourself?", "Do you have a plan for harming or killing yourself?", "Have you recently had thoughts about harming or killing others?", "Do you have any dangerous items in your possession?", "Have you noticed less interest or pleasure in doing things?", "Are you here because you tried to hurt yourself?" and "Have you ever tried to hurt yourself before today?". ABUSE ASSESSMENT: No report of abuse. NUTRITIONAL RISK ASSESSMENT: The nutritional risk assessment revealed no deficiencies. FUNCTIONAL ASSESSMENT: Functional assessment: no impairments noted. LEARNING NEEDS ASSESSMENT: The learning needs assessment revealed no barriers. FALL RISK ASSESSMENT: Fall risk assessment completed. No risk factors identified. SKIN INTEGRITY ASSESSMENT: Skin integrity risk assessment completed. No skin integri ty risk identified. --09:16 12/19/20 Aster Saenz R.N. 08:48 12/19/2020 Site #1 started via IV in the left hand with an 22g angiocath; one attempt. Saline lock flushed with 10 mL saline. --09:13 12/19/20 Aster Saenz R.N.PHYSICAL ASSESSMENTTo room via stretcher. Patient gowned.GENERAL / NEURO / PSYCH: Alert. Oriented X 4. Appears in no acute distress.HEENT: Mucous membranes are pink.RESPIRATORY: Respirations not labored.CVS: Normal heart rate and rhythm.GI / : Abdominal tenderness. ( left lower groin pain). CVA tenderness on the left.SKIN: Skin is warm and dry. --09:18 12/19/20 Aster Saenz R.N.NURSING PROGRESS NOTESPatient gowned. Head of bed elevated. Reassurance given. Call light placed in reach. Bed placed in 3 Clinical Report - Nurses [facility] Emergency Department [address] [place] [address] Phone #: ext- [phone] 12/19/2020 09:10 Patient: MARVIN LEAHY Sex: M : 1990 Age: 30ylowest position. Brakes of bed on. Patient ready for evaluation. --09:17 12/19/20 Aster Saenz R.N.09:30 12/19/20. BP: 129/95. MAP: 106. HR: 69. RR: 16. O2 saturation: 96%. --09:34 12/19/20 Verónica Hernandez ER Jgwj292:47 12/19/2020 Toradol (Ketorolac Tromethamine) IVP 15 mg given over 4 minute(s) via site #1.Allergies verified and confirmed 5 rights. IV patency established. IV site checked: no pain, redness, orswelling. IV flushed thoroughly pre- and post- medication administration. IVP given by RN. Informationreviewed with patient. --09:52 12/19/20 Aster Saenz R.N.09:51 12/19/2020 Ativan (LORazepam) IVP 2 mg given over 2 minute(s) via site #1. Allergies verified andconfirmed 5 rights. IV patency established. IV site checked: no pain, redness, or swelling. IV f lushedthoroughly pre- and post-medication administration. IVP given by RN. Information reviewed with patient.--09:51 12/19/20 Aster Saenz R.N.09:51 12/19/2020 Zofran (Ondansetron HCl) IVP 4 mg given over 2 minute(s) via site #1. Allergies verifiedand confirmed 5 rights. IV patency established. IV site checked: no pain, redness, or swelling. IV flushedthoroughly pre- and post- medication administration. IVP given by RN. Information reviewed with patient.--09:51 12/19/20 Aster Saenz R.N.09:59 12/19/20. BP: 115/68. MAP: 83. HR: 82. RR: 14. --09:59 12/19/20 [facility] Inqj885:05 12/19/2020 Started bag #1 250 mL IV Fluids NS; bolus of 250 mL over 15 minute(s) via site #1 via IVpump. Allergies verified and confirmed 5 rights. IV patency established. IV site checked: no pain, redness,or swelling. IV flushed thoroughly pre- and post-medication administration. Information reviewed withpatient. --10:05 12/19/20 Aster Saenz R.N.Reassessment after medication administered and fluids administered. He reports no complaints and he iscalm and resting quietly. --10:09 12/19/20 Aster Saenz R.N.Patient transported to radiology by stretcher with tech. --10:10 12/19/20 Aster Saenz R.N.10:20 12/19/20. Patient returned from CT by stretcher with optometric technologist. --10:50 12/19/20 Aster Saenz R.N.11:00 12/19/20. BP: 116/50. MAP: 72. HR: 96. RR: 14. O2 saturation: 100%. --11:00 12/19/20 [facility] Qxet591:28 12/19/2020 Flomax (Tamsulosin HCl) PO Capsules 0.4 mg given. Allergies verified. Informationreviewed with patient. Verbalizes understanding. --11:28 12/19/20 Aster Saenz R.N.11:28 12/19/2020 Started 1 gm of CEFTRIAXONE (1GM/50ML) IVPB in bag #1 50 mL; at 100 mL/hr over30 minute(s) via site #1. via IV pump. Allergies verified and confirmed 5 rights. IV patency established. IVsite checked: no pain, redness, or swelling. IV flushed thoroughly pre- and post- medication administration. 4 Clinical Report - Nurses [facility] [place] [address] Phone #: ext- [phone] 12/19/2020 09:10 Patient: MARVIN LEAHY Sex: M : 1990 Age: 30y Information reviewed with patient. Verbalizes understanding. --11:28 12/19/20 Aster Saenz R.N. 11:58 12/19/20. BP: 106/50. MAP: 68. HR: 72. RR: 16. O2 saturation: 99%. --11:59 12/19/20 [facility] 12:58 12/19/20. BP: 110/94. MAP: 99. HR: 82. RR: 16. O2 saturation: 100%. --12:58 12/19/20 [facility] Tech Verónica, [facility] Tech1 12:00 12/19/2020 CEFTRIAXONE (1GM/50ML) IVPB via IV site #1 Discontinued: completed. Total amount infused: 50 mL. IV patency established. IV site checked: no pain, redness, or swelling. IV flushed thoro george. --13:12 12/19/20 Aster Saenz R.N. 13:12 12/19/2020 IV Fluids NS via IV site #1 Discontinued: discontinued upon discharge. Total amount infused: 500 mL. IV patency established. IV site checked: no pain, redness, or swelling. IV flushed thoroughly. --13:12 12/19/20 Aster Saenz R.N. ( patient awake and alert x3, ambulated in hallway by self with tech without difficulty.). --13:13 12/19/20 Aster Saenz R.N. The patient reports no complaints and he is calm. Overall patient status is improved- he states feels better. --13:13 12/19/20 Aster Saenz R.N. 13:13 12/19/2020 Site #1 removed upon discharge. Bandaid applied. --13:13 12/19/20 Aster Saenz R.N.DISPOSITION / DISCHARGE 13:22 12/19/20. BP: 147/76. MAP: 99. HR: 91. RR: 14. O2 saturation: 100%. Temp: 98 F. Pain level now: 0/10. --13:23 12/19/20 Aster Saenz R.N. Departure time: 13:40 12/19/2020. --13:40 12/19/20 Aster Saenz R.N. Discharge instructions provided and reviewed with the patient. Reviewed medication(s) side effects, precautions, dosing and course information. Prescription(s) sent electronically to pharmacy. Reviewed referral to a urologist. Reviewed need for increased fluid intake. Activity restrictions (rest) reviewed. Work note given (x 3 days). Patient verbalized understanding. Written instructions provided in [place]. --13:41 12/19/20 Aster Saenz R.N.Locked/Released at 12/19/2020 13:41 by Aster Saenz R.N. Name Value Range Interpretation Code Description Data Marifer rce(s) Supporting Document(s) ID Date Data Source [id number] 12/19/2020 09:11:00 AM [facility] 1 Clinical Report - Physicians/Mid Levels [facility] Emergency Department [address] [place] [address] Phone #: ext- [phone] 12/19/2020 09:10 Patient: MARVIN LEAHY Sex: M : 1990 Age: 30y Time Seen: 09:14 12/19/2020; initial patient contact. Arrived- By ambulance. Historian- patient. Disposition decision: 13:19 12/19/2020.HISTORY OF PRESENT ILLNESS Chief Complaint: FLANK PAIN. This started just prior to arrival and is still present. It was abrupt in onset and has been constant. It is described as sharp and it is described as located in the left abdomen and the left flank and radiating to the left upper back. At its maximum, severity described as severe and 10 / 10. When seen in the E.D., severity described as severe and 10 / 10. Modifying factors. Not worsened by anything. Not relieved by anything. The patient has had nausea. No loss of appetite, vomiting or diarrhea. (pt received Fentanyl 50 mcg IV per EMS MINE EXPERT). No recent travel. Similar symptoms previously. None. ( pt has Hx of chronic back pain). Recent medical care: The patient was seen recently by a health care provider. ( pt has been here 5 times since 2020 for back pain, last ER visit 12-01-20 for syncope; pt had MRI LS spine on 11-19-2020 which was nml).REVIEW OF SYSTEMSNo constipation, black stools, hematemesis, difficulty with urination or pain with urination. No urinaryfrequency, bloody stools, fever, headache or sore throat. No blurred vision, chest pain, difficulty breathing,cough or joint pain. No skin rash or chills. The patient has had back pain but not had weight loss. Allother systems reviewed and are negative.PAST HISTORYSee nurses notes. Problems: Lumbar Strain. Hypertension. Hematuria. DVT - Deep Venous Thrombosis. Chronic Back Pain. Medications: Trolamine Salicylate External. Xolair Subcutaneous (Solution Reconstituted 150 mg) 300mg, 3x a week. Acetaminophen Oral (Tablet Chewable 325 mg) 2 tablets, 2x a day. Divalproex Sodium Oral (Tablet Delayed Release 250 mg), 2x a day. Eliquis Oral (Tablet 5 mg), 2x a day. 2 Clinical Report - Physicians/Mid Levels [facility] Emergency Department [address] [place] [address] Phone #: ext- [phone] 12/19/2020 09:10 Patient: MARVIN LEAHY Sex: M : 1990 Age: 30y Escitalopram Oxalate Oral (Tablet 10 mg), 2x a day. Ivermectin Oral (Tablet 3 mg) 3 tabs, every 6 months. Lidocaine External. Memetasone furoate 15mg , 4x a day. Methocarbamol Oral (Tablet 500 mg), 2x a day. risperiDONE Oral (Tablet Disintegrating 1 mg), 2x a day. traZODone HCl Oral (Tablet 50 mg), daily. Allergies: Seafood.SOCIAL HISTORYNever smoker. No alcohol use or drug use.ADDITIONAL NOTESThe nursing notes have been reviewed with agreement regarding the chief complaint, HPI, ROS, PMH andpatient medications and allergies.PHYSICAL EXAMVital Signs: 12/19/2020 09:59 BP: 115/68. MAP: 83. HR: 82. RR: 14.12/19/2020 09:30 BP: 129/95. MAP: 106. HR: 69. RR: 16. O2 saturation: 96%.12/19/2020 09:17 BP: 122/74. MAP: 90. HR: 82. RR: 16. O2 saturation: 96%. Temp: 98.1 F. Pain levelnow: 04/18. Have been reviewed. Oxygen saturation normal.Appearance: Alert. Oriented X3. Anxious. Appears to be in pain. Patient in moderate distress.Distress appears due to pain. (hyperventilating).Eyes: Pupils equal, round and reactive to light. Eyes normal inspection.ENT: Nose normal. Pharynx normal.Neck: Normal inspection. Neck supple.CVS: Normal heart rate and rhythm. Heart sounds normal. Pulses normal.Respiratory: No respiratory distress. Painless inspiration. Breath sounds normal. Chest nontender.Abdomen: Soft. Moderate tenderness in the left side of the abdomen. No guarding or reboundtenderness. Bowel sounds normal. No organomegaly. No mass. Femoral pulses equal.Back: Mild CVA tenderness on the left.Skin: Skin warm and dry. Normal skin color. No rash. Normal skin turgor.Extremities: Extremities exhibit normal ROM. No lower extremity edema.Neuro: Oriented X 3. No motor deficit. No sensory deficit. Reflexes normal.LABS, X-RAYS, AND EKGAbdominal CT: A single urinary calculus is present in the left distal ureter (3 mm). There is mildobstruction. Mild hydronephrosis of the left kidney. also mild CM and small pericardial effusion. Studytype: abdomen and pelvis. Abdominal CT performed without contrast. The study was interpreted by theradiologist. Interpretation time: 10:31 12/19/2020.Laboratory Tests: Laboratory tests have been ordered, with results reviewed and considered in themedical decision making process. CBC w Diff: (DERRICK: 12/19/2020 11:04) ( MsgRcvd 12/19/2020 11:17) Final results 3 Clinical Report - Physicians/Mid Levels [facility] Emergency Department [address] [place] [address] Phone #: ext- [phone] 12/19/2020 09:10 Patient: MARVIN LEAHY Sex: M : 1990 Age: 30y Test Result Flag Units (Reference) CBC W/AUTOMATED DIFF COMPLETE BLOOD COUNT WBC 5.6 10/uL (4.2 - 11.0) RBC 4.55 10/uL (4.50 - 6.30) HEMOGLOBIN 13.6 L g/dL (14.0 - 16.0) HEMATOCRIT 41.3 % (41.0 - 51.0) MCV 90.8 fL (80.0 - 94.0) MCH 29.9 pg (27.0 - 34.0) MCHC 32.9 g/dL (31.0 - 36.0) RDW 12.7 % (11.5 - 14.8) PLATELETS 175 10/uL (150 - 450) MPV 11.4 H fL (7.4 - 10.4) NEUT 53.6 % (37.0 - 80.0) LYMPH 32.4 % (25.0 - 40.0) MONO 11.8 H % (3.0 - 8.0) EOS 1.4 % (0.0 - 7.0) BASO 0.4 % (0.0 - 2.0) %IG 0.4 H % (0.0 - 0.0) %NRBC 0.0 % (0.0 - 0.0) #NEUT 3.00 10/uL (2.00 - 6.90) #LYMPH 1.81 10/uL (0.60 - 3.40) #MONO 0.66 10/uL (0.00 - 0.90) #EOS 0.08 10/uL (0.00 - 0.70) #BASO 0.02 10/uL (0.00 - 0.20) #IG 0.02 10/uL (0.00 - 0.10) #NRBC 0.00 10/uL (0.00 - 0.00) MANUAL DIFF NOT INDICATED RBC MORPH NOT INDICATEDCMP: (DERRICK: 12/19/2020 09:50) ( MsgRcvd 12/19/2020 10:18) Final results Test Result Flag Units (Reference) COMPREHENSIVE METABOLIC PANEL COMPREHENSIVE METABOLIC PANEL SODIUM 138 mEq/L (134 - 153) POTASSIUM 3.8 mEq/L (3.6 - 5.0) CHLORIDE 103 mEq/L (98 - 107) CO2 25 MEQ/L (22 - 30) GLUCOSE 98 MG/DL (70 - 99) BUN 8 MG/DL (7 - 21) CREATININE 0.9 MG/DL (0.7 - 1.5) BUN/CREAT 9 (8 - 27) TOTAL PROTEIN 6.8 G/DL (6.3 - 8.2) ALBUMIN 4.3 G/DL (3.9 - 5.0) GLOBULIN 2.5 GM/DL (2.4 - 3.2) A/G RATIO 1.7 (0.8 - 2.0) CALCIUM 9.6 MG/DL (8.4 - 10.2) TOTAL BILI <0.7 MG/DL (0.2 - 1.3) ALKALINE PHOS 67 U/L (38 - 126) SGOT/AST 27 U/L (5 - 40) SGPT/ALT 29 U/L (7 - 56) ANION GAP 10.0 mmol/L (8.0 - 16.0) AGE 30 yrs NON- AA GFR >60 mL/min AFR AMER GFR >60 mL/min Male GFR Interprentation 20-49 yrs >60 mL/min [id number] yrs >56 mL/min Normal 60-69 yrs >49 mL/min Normal 70-79yrs>42 mL/min Normal 80 and above >35 mL/min Normal Female GFRInterpretation 20-39 yrs >60 mL/min Normal 40-49 yrs >58 mL/min 4 Clinical Report - Physicians/Mid Levels [facility] Emergency Department [address] [place] [address] Phone #: ext- [phone] 12/19/2020 09:10 Patient: MARVIN LEAHY Sex: M : 1990 Age: 30y Normal 50-59 yrs >51 mL/min Normal 60-69 yrs >45 mL/min Normal 70-79 yrs >39 mL/min Normal 80 and above >32 mL/min Normal Lipase: (DERRICK: 12/19/2020 09:50) ( MsgRcvd 12/19/2020 10:18) Final results Test Result Flag Units (Reference) LIPASE 25 U/L (13 - 60) Urinalysis: (DERRICK: 12/19/2020 09:00) ( [facility] 12/19/2020 10:20) Final results Test Result Flag Units (Reference) URINALYSIS URINALYSIS SOURCE R COLOR brown (NORMAL: Yello CLARITY turbid (NORMAL: Clear SPEC GRAVITY 1.015 (1.001 - 1.030 pH 8 (5 - 9) GLUCOSE NORM (NORMAL: Negat BILIRUBIN NEG (NORMAL: Negat KETONE NEG (NORMAL: Negat PROTEIN 100 A (NORMAL: Negat NITRITE NEG (NORMAL: Negat BLOOD 250 A (NORMAL: Negat LEUK EST 25 (NORMAL: Negat UROBILINOGEN NOR (less than 1.0 MICROSCOPIC See Below RBC TNTC A (NORMAL: NONE EPITHELIAL FEW (NORMAL: NONE BACTERIA Trace (NORMAL: NONE Lactic Acid: (DERRICK: 12/19/2020 09:50) ( [facility] 12/19/2020 10:05) Final results Test Result Flag Units (Reference) LACTIC ACID 1.4 MMOL/L (0.2 - 2.2) CT ABD PEL W/O Oral W/O IV Contrast: (DERRICK: 12/19/2020 09:41) ( [facility] 12/19/2020 11:02) In Progress CT ABD Reason(s): sudden left flank pain TRANSPORTATION: S IV? IV?(Yes) O2? Oxygen?(No) Ro.PROGRESS AND PROCEDURESCourse of Care: 09:38 12/19/20. Data Detail Level: Printer-Friendly View Extended ViewConfidential Drug Utilization ReportSearch Terms: marvin tosin, 1990earch Date: 12/19/2020 09:37:41 AMThe Drug Utilization Report below displays all of the controlled substance prescriptions, if any, that yourpatient has filled in the last twelve months. The information displayed on this report is compiled frompharmacy submissions to the Department, and accurately reflects the information as submitted by thepharmacies. 5 Clinical Report - Physicians/Mid Levels [facility] Emergency Department [address] [place] [address] Phone #: [phone] 12/19/2020 09:10 Patient: MARVIN LEAHY Sex: M : 1990 Age: 30y This report was requested by: Brant Luna Reference #: [id number] My Prescriptions Patient Name: Marvin LeahyBirth Date: 1990 Address[address] [place], [place] [address]Cza: Male Rx Written Rx Dispensed Drug Quantity Days Supply Prescriber Name Payment Method Dispenser 09/17/2020 09/17/2020 hydrocodone-acetaminophen 5-325 mg tablet 12 3 Brant Luna MD [facility] [phone] * - Drugs marked with an asterisk are compound drugs. If the compound drug is made up of more than one controlled substance, then each controlled substance will be a separate row in the table. 11:26 12/19/20. workup all in and reviewed, UA abnormal, CTAP shows distal lt ureteral stone 3 mm w mild hydro, and incidental small pericardial effusion w mild CM; pt is now pain free, sleeping at moments because of ativan iv; will add flomax and ceftriaxone 13:08 12/19/20. pt doing markedly better, walked around ER w/o issues, pain free; will refer to urology, Dr. Willett, for his renal colic and cardiology, Dr. Shi, for the incidental findings of pericardial effusion (outpatient echocardiogram), pt has no CP or SOB complaint; pt understands d/c instructions and agrees. Patient counseled in person regarding the patient's stable condition, test results, diagnosis and need for follow-up. Patient agrees with plan of care. Disposition: Condition: good and stable. Discharge decision based on the following: patient's condition is stable; patient's condition is improved; patient is ambulatory; patient is active; patient drinking fluids; patient eating; patient's pain is controlled; patient's exam is improved; no seriously abnormal test results; improving condition on multiple repeat evaluations; social support is good; transportation is available; follow-up is available; clinical impression is consistent with outpatient treatment.CLINICAL IMPRESSION Left renal colic in the left ureter with a single calculus with hydronephrosis. Ureterolithiasis (single stone) in the left ureter with renal colic and hydronephrosis. Pericardial Effusion (mild) with mild Cardiomegaly (incidental findings).INSTRUCTIONS No strenuous activity until better. Return to work in three days. Drink plenty of fluids. Avoid alcohol. Avoid fatty, fried/greasy, lactose-containing (such as milk, cheese and ice cream), salty and spicy foods. No alcohol. Do not smoke. (PLEASE FOLLOW UP WITH UROLOGY, DR. WILLETT, IN NEXT WEEK; PLEASE FOLLOW UP WITH CARDIOLOGY, DR. SHI, ALSO SOON TO EVALUATE YOUR HEART 6 Clinical Report - Physicians/Mid Levels [facility] Emergency Department [address] [place] [address] Phone #: ext- [phone] 12/19/2020 09:10 Patient: MARVIN LEAHY Sex: M : 1990 Age: 30yAND ITS SIZE).Warnings: Further evaluation is necessary in order to conduct further tests (Urology and Cardiology). It isvery important to follow up with a healthcare provider.GENERAL WARNINGS: Return or contact your physician immediately if your condition worsens orchanges unexpectedly, if not improving as expected, or if other problems arise. SPECIFICALLY, return ifyou develop pain in the abdomen, pelvis, testicle, back or shoulder, fever, vomiting, the inabi lity to keepfluids down, blood in vomitus, blood in diarrhea, fainting or lightheadedness.Your Current Medications: Your current home medications have been reviewed.CONTINUE TAKING THE FOLLOWING MEDICATIONS:Acetaminophen Oral : Tablet Chewable 325 mg, 2 tablets 2x a day.Divalproex Sodium Oral : Tablet Delayed Release 250 mg, 2x a day.Eliquis Oral : Tablet 5 mg, 2x a day.Escitalopram Oxalate Oral : Tablet 10 mg, 2x a day.Ivermectin Oral : Tablet 3 mg, 3 tabs every 6 months.Lidocaine External.Memetasone furoate* : 15mg 4x a day.Methocarbamol Oral : Tablet 500 mg, 2x a day.risperiDONE Oral : Tablet Dis integrating 1 mg, 2x a day.traZODone HCl Oral : Tablet 50 mg, daily.Trolamine Salicylate External.Xolair Subcutaneous : Solution Reconstituted 150 mg, 300mg 3x a week.Prescription Medications:hydrocodone 5 mg-acetaminophen 325 mg tablet Take 1 tablet four times a day as needed for pain for 3days -- Dispense 12 tablet. Refills: 0. Substitution permitted.[address] ; [place] [address]. .Flomax 0.4 mg capsule Take 1 capsule once a day for 7 days -- Dispense 7 capsule. Refills: 0.Substitution permitted.[address] ; [place] [address]. .cefdinir 300 mg capsule Take 1 capsule twice a day for 7 days -- Dispense 14 capsule. Refills: 0.Substitution permitted.[address] ; [place] [address]. .Zofran 4 mg tablet Take 1 tablet three times a day as needed for 4 days -- Dispense 12 tablet. Refills: 0.Substitution permitted.[address] ; [place] [address]. . 7 Clinical Report - Physicians/Mid Levels [facility] Emergency Department [address] [place] [address] Phone #: ext- [phone] 12/19/2020 09:10 [id number] Sex: M : 1990 Age: 30y Follow-up: Return to the emergency department as needed. Follow up with a placing judge and urologist in three days even if well. Call for an appointment. Reason for referral: evaluation and treatment. Summary of care provided to pat ient via paper. Understanding of the discharge instructions verbalized by patient. Expected course of illness, discharge instructions, activity level, diet, prescriptions x4, follow-up appointment and risks and benefits of treatment reviewed with patient and understanding verbalized. Agrees to plan of care.(Electronically signed by Brant Luna M.D. 12/19/2020 13:49) Name Value Range Interpretation Code Description Data Marifer rce(s) Supporting Document(s) ID Date Data Source [id number] 12/19/2020 11:16:00 AM EST [facility] Name Value Range Interpretation Code Description Data [facility] rce(s) Supporting Document(s) CBC W/AUTOMATED DIFF [facility] COMPLETE BLOOD COUNT Leukocytes [#/volume] in Blood by Automated count 5.6 10^3/uL 4.2 - 1 1.0 [facility] Erythrocytes [#/volume] in Blood by Automated count 4.55 10^6/uL 4. 50 - 6.30 [facility] Hemoglobin [Mass/volume] in Blood 13.6 g/dL 14.0 - 16.0 L [facility] Hematocrit [Volume Fraction] of Blood by Automated count 41.3 % 4 1.0 - 51.0 [facility] Erythrocyte mean corpuscular volume [Entitic volume] by Auto mated count 90.8 fL 80.0 - 94.0 [facility] Erythrocyte mean corpuscular hemoglobin [Entitic mass] by Automated count 29.9 pg 27.0 - 34.0 [facility] Erythrocyte mean corpuscular hemoglobin concentration [Mass/volume] by Automated count 32.9 g/dL 31.0 - 36.0 [facility] Erythrocyte distribution width [Ratio] by Automated count 12.7 % 11.5 - 14.8 [facility] Platelets [#/volume] in Blood by Automated count 175 10^3/uL 150 - 45 0 [facility] Platelet mean volume [Entitic volume] in Blood by Automated count 11.4 fL 7.4 - 10.4 H [facility] Neutrophils/100 leukocytes in Blood by Automated count 53.6 % 37. 0 - 80.0 [facility] Lymphocytes/100 leukocytes in Blood by Manual count 32.4 % 25.0 - 40.0 [facility] Monocytes/100 leukocytes in Blood by Automated count 11.8 % 3.0 - 8.0 H [facility] Eosinophils/100 leukocytes in Blood by Automated count 1.4 % 0.0 - 7.0 [facility] Basophils/100 leukocytes in Blood by Automated count 0.4 % 0.0 - 2.0 [facility] %IG 0.4 % 0.0 - 0.0 H [facility] %NRBC 0.0 % 0.0 - 0.0 [facility] al Neutrophils [#/volume] in Blood by Automated count 3.00 10^3/uL 2.00 - 6.90 [facility] Lymphocytes [#/volume] in Blood by Automated count 1.81 10^3/uL 0.60 - 3.40 [facility] Monocytes [#/volume] in Blood by Automated count 0.66 10^3/uL 0.00 - 0.90 [facility] Eosinophils [#/volume] in Blood by Automated count 0.08 10^3/uL 0.00 - 0.70 [facility] Basophils [#/volume] in Blood by Automated count 0.02 10^3/uL 0.00 - 0.20 [facility] #IG 0.02 10^3/uL 0.00 - 0.10 [facility]ital #NRBC 0.00 10^3/uL 0.00 - 0.00 [facility] MANUAL DIFF NOT INDICATED [facility] RBC MORPH NOT INDICATED [facility] ID Date Data Source [id number] 12/19/2020 10:18:00 AM [facility] Name Value Range Interpretation Code Description Data Marifer rce(s) Supporting Document(s) Lipase [Enzymatic activity/volume] in Serum or Plasma 25 U/L 13 - 60 [facility] ID Date Data Source [id number] 12/19/2020 10:18:00 AM [facility] Name Value Range Interpretation Code Description Data Marifer rce(s) Supporting Document(s) COMPREHENSIVE METABOLIC PANEL [facility] COMPREHENSIVE METABOLIC PANEL Sodium [Moles/volume] in Serum or Plasma 138 mEq/L 134 - 153 [facility] Potassium [Moles/volume] in Serum or Plasma 3.8 mEq/L 3.6 - 5.0 [facility] Chloride [Moles/volume] in Serum or Plasma 103 mEq/L 98 - 107 [facility] Carbon dioxide, total [Moles/volume] in Serum or Plasma 25 MEQ/L 22 - 30 [facility] Glucose [Mass/volume] in Serum or Plasma 98 MG/DL 70 - 99 [facility] BUN 8 MG/DL 7 - 21 [facility] al Creatinine [Mass/volume] in Serum or Plasma 0.9 MG/DL 0.7 - 1.5 [facility] BUN/CREAT 9 8 - 27 [facility] Protein [Mass/volume] in Serum or Plasma 6.8 G/DL 6.3 - 8.2 [facility] Albumin [Mass/volume] in Serum or Plasma 4.3 G/DL 3.9 - 5.0 [facility] Globulin [Mass/volume] in Serum by calculation 2.5 GM/DL 2.4 - 3.2 [facility] A/G RATIO 1.7 0.8 - 2.0 [facility] Calcium [Mass/volume] in Serum or Plasma 9.6 MG/DL 8.4 - 10.2 [facility] Bilirubin.total [Mass/volume] in Serum or Plasma <0.7 MG/DL 0.2 - 1.3 [facility] Alkaline phosphatase [Enzymatic activity/volume] in Serum or Plasma 67 U/L 38 - 126 [facility] Aspartate aminotransferase [Enzymatic activity/volume] in Serum or Plasma 27 U/L 5 - 40 [facility] Alanine aminotransferase [Enzymatic activity/volume] in Seru m or Plasma 29 U/L 7 - 56 [facility] Anion gap 3 in Serum or Plasma 10.0 mmol/L 8.0 - 16.0 [facility] 30 [facility] >60 mL/min [facility] AFR AMER GFR >60 mL/min [facility] Male GFR In terprentation 20-49 yrs >60 mL/min Normal 50-59 yrs >56 mL/min Normal 60-69 yrs >49 mL/min Normal 70-79yrs >42 mL/min Normal 80 and above >35 mL/min Normal Female GFR Interpretation 20-39 yrs >60 mL/min Normal 40-49 yrs >58 mL/min Normal 50-59 yrs >51 mL/min Normal 60-69 yrs >45 mL/min Normal 70-79 yrs >39 mL/min Normal 80 and above >32 mL/min Normal ID Date Data Source [id number] 12/19/2020 10:05:00 AM [facility] Name Value Range Interpretation Code Description Data Marifer rce(s) Supporting Document(s) Lactate [Moles/volume] in Serum or Plasma 1.4 MMOL/L 0.2 - 2.2 [facility] ID Date Data Source [id number] 12/19/2020 10:20:00 AM [facility] Name Value Range Interpretation Code Description Data Marifer rce(s) Supporting Document(s) [facility]IS [facility] URINAL[facility] SOURCE R [facility] al COLOR brown NORMAL: Yellow [facility] CLARITY turbid NORMAL: Clear [facility] Specific gravity of Urine by Test strip 1.015 1.001 - 1.030 [facility] pH 8 5 - 9 [facility] al Glucose [Mass/volume] in Urine by Test strip NORM NORMAL: Negat xiomara [facility] Bilirubin.total [Presence] in Urine by Test strip NEG NORMAL: Negative [facility] Ketones [Presence] in Urine by Test strip NEG NORMAL: Negative [facility] Protein [Mass/volume] in Urine by Test strip 100 NORMAL: Negat xiomara A [facility] Nitrite [Presence] in Urine by Test strip NEG NORMAL: Negative [facility] BLOOD 250 NORMAL: Negative [facility] Leukocyte esterase [Presence] in Urine by Test strip 25 DELANO L: Negative [facility] Urobilinogen [Mass/volume] in Urine by Test strip NOR less fidelia n 1.0 mg/dL [facility] MICROSCOPIC See Below [facility] Erythrocytes [#/volume] in Urine by Test strip TNTC NORMAL: NON E SEEN A [facility] EPITHELIAL FEW NORMAL: NONE SEEN [facility] Bacteria [Presence] in Urine sediment by Light microscopy Tr du NORMAL: NONE SEEN [facility] ID Date Data Source [id number] 12/03/2020 01:03:00 AM EST [facility] [address] [place] [address] CONSULTATIONNAME: TOSIN Rivera ROOM#: 101-1DATE OF : 1990 MR#: [id number] PHYS: POP Paulino DATE: 12/01/20DATE OF CONSULTATION: 12/02/20CHIEF COMPLAINT: This 30-year-old white male presented with episode of syncope.HISTORY OF PRESENT ILLNESS:This patient went to [employer] to get food and after he got the food, he felt dizzy and had syncope.He fell on the floor and was brought to the emergency room. Patient complains of some pain in bothlegs and low backache. Patient was seen in the office previously for dizziness. He has a history of DVTin the leg and he takes Eliquis 5 mg b.i.d. He takes multiple medications including Ivermectin 3 mg 3tablets every 6 months. Xolair 300 mg 3x a week, Skelaxin 400 mg b.i.d., Lexapro 10 mg b.i.d.,Depakote 250 mg b.i.d.REVIEW OF SYSTEMS:The patient denies any orthopnea or paroxysmal nocturnal dyspnea. No chills or fever. No cough orhemoptysis. No bowel disturbance. No urinary problem. No ankle edema.PAST MEDICAL HISTORY:The patient has history of previous hematuria, backache, DVT.ALLERGIES:SEAFOOD.PERSONAL HISTORY:Nonsmoker.FAMILY HISTORY:His father and mother have no history of heart disease.PHYSICAL EXAMINATION:GENERAL: Moderately-built.VITAL SIGNS: Blood pressure is 120/80. Pulse is 80. Temperature is 98. O2 saturation is 98%.HEENT: Head is normal. Eyes are normal. Mouth normal.NECK: Supple. No lymphadenopathy. Thyroid not enlarged. Neck veins are not distended. No carotidbruits.CHEST: Symmetrical.HEART: Regular sinus rhythm. No murmur or gallop.LUNGS: Clear with no rales or rhonchi. [address] [place] [address] CONSULTATIONNAME: TOSIN Rivera ROOM#: [facility]-ATE OF : 1990 MR#: [id number] PHYS: POP Tran DATE: 12/01/20ABDOMEN: Soft and nontender. No visceromegaly.EXTREMITIES: Normal. Peripheral pulses are palpable.NEUROLOGICAL: Normal.IMPRESSION/PLAN:Patient's EKG is regular sinus rhythm. Patient had previous work up done in the office with anechocardiogram, which was normal. All the blood tests are stable. Hemoglobin is 13.5. Sodium is 140,potassium is 3.8, BUN 12, creatinine is 0.8. Patient possibly has vasovagal syncope. I would suggest toput him on Midodrine 5 mg t.i.d. and I will see him here in the office for follow up.Thank you very much.DD: Dylan Shi MD, PC 12/02/20 11:25DT: SILVERIO 12/03/20 00:46DS: Dylan Shi MD, PC 12/13/20 09:32 2 Name Value Range Interpretation Code Description Data Marifer rce(s) Supporting Document(s) ID Date Data Source [id number] 12/12/2020 12:00:00 AM EST [facility] Jairon Christiansen MD Patient Name: MARVIN LEAHY[address] [facility] [address] Date of : 1990[place] [address]- Date of Exam: 12/12/2020#: Fax: [phone] EXAM: CT THORAX WITH CONTRASTCLINICAL INFORMATION: Hilar lymphadenopathy.COMPARISON: CT abdomen and pelvis [facility] 08/15/2020.Low dose [address] scanning of the chest was obtained using 3 mmincrements after the administration of intravenous contrast andreconstructed in both coronal and sagittal scan planes. 75 cc of [id number] was administered intravenously.The lungs are free of infiltrate. No suspicious nodular opacity is seen.There is no evidence of mediastinal, hilar or chest wall lymphadenopathy.The previously noted lymph node in the right infrahilar region is upperlimits or normal in size approximately 10 mm in short axis dimension. Smallamount of residual thymic tissue is seen in the anterior mediastinum.Thoracic aorta is normal in caliber with no aneurysm or dissection. Theheart is normal in size. There is no pleural or pericardial effusion.Visualized upper abdominal structures and osseous structures areunremarkable.IMPRESSION:No suspicious abnormalities. The previously noted right infrahilar lymphnode is at the upper limits of normal in size 1 cm in short axis dimension.No significant adenopathy and no suspicious lung nodule.Accredited by the [employer] in [place].ROSY Alva/Maryam you for referring MARVIN LEAHY to our office. Electronically Signed - RANDOLPH ALVAREZ MD 12/14/20 18:04 Name Value Range Interpretation Code Description Data Marifer rce(s) Supporting Document(s) ID Date Data Source [id number] 12/05/2020 09:23:00 AM [facility] [address] [place] [address] PHONE: [phone] FAX: [phone] Name .................. : TOSIN Rivera Acct Number.................. : [id number] ROOM. ................. : 101-1 MR Number ................... : [id number] Stay type ............. : O/P Discharge Date......... ... : 12/03/20 Admit Date ......... : 12/01/20 Admit Phys .................... : AMARJIT Date of ....... : 1990 Family Phys ................... : NON STAFF Phone .................. : [phone] Age ................................ : 30 Film# .................. .:[id number] Sex ................................. : M Unsigned transcriptions are preliminary reports and do not represent a medical or legal document CAROTID [id number] COMPLETE:12/01/20 08:09 [facility] 2817 (REASON FOR PROCEDURE :SYNCOPE CAROTID SONOGRAM, 12/01/20: INDICATION: Syncope. FINDINGS: Peak systolic velocity in the right ICA is 96 cm/second, end diastolic velocity is 27 cm/second. ICA/CCA ratio is 0.72. Vertebral flow is antegrade. On the left side, the peak systolic velocity is 126 cm/second, end diastolic velocity is 40 cm/second. ICA/CCA ratio is 0.84. Vertebral flow is antegrade. IMPRESSION: No hemodynamically significant stenosis is identified. The velocities on the left side are at the cut off between the normal range and the 50-69% range. Continued follow up is recommended. Examination dictated by PERLA Vaca. Examination was reviewed with Clyde Palm DO, radiologist at the time of this dictation. Electronically Reviewed and Signed By Clyde Palm MD , 12/05/20 09:23, RIO Transcribe Initials: SSR, Transcribe Date: 12/04/20 12:28, Dictation Date: Copy for: JAYANT Garcia via fax Copy for: EMERGENCY DEPT via modem Copy for: 710 MED REC DISCHARGED Page 1 of 1 Name Value Range Interpretation Code Description Data Marifer rce(s) Supporting Document(s) ID Date Data Source [id number] 12/03/2020 12:19:00 PM [facility] [address] [place] [address] PHONE: [phone] FAX: [phone] Name .................. : TOSIN WONG Cristino Acct Number.................. : [id number] ROOM. ................. : TR-08 Number ................... : [id number] Stay type ............. : E/R Discharge Date......... ... : Admit Date ......... : 12/01/20 Admit Phys .................... : LETICIA Burleson Date of ....... : 1990 Family Phys ................... : NON STAFF Phone .................. : [phone] Age ................................ : 30 Film# .................. .:[id number] Sex ................................. : M Unsigned transcriptions are preliminary reports and do not represent a medical or legal document CHEST 1 VIEW [id number] COMPLETE:12/01/20 15:46 2810 Reason(s): syncope CHEST X-RAY: SINGLE VIEW FINDINGS: The study is quite limited by patient body habitus and portable nature of the examination. Given the above limitations, there is no definitive evidence of significant acute pulmonary disease. Suggest PA and lateral radiographs of the chest when the patient is stable. IMPRESSION: Limited study does not demonstrate significant acute pulmonary disease. Electronically Reviewed and Signed By Marlon Decker MD , 12/03/20 12:19, AML Transcribe Initials: GAYATHRI , Transcribe Date: 12/01/20 18:46, Dictation Date: Copy for: HARSHAL HINKLE via fax Copy for: EMERGENCY DEPT via modem Copy for: [address] [place] [address] REC Page 1 of 1 Name Value Range Interpretation Code Description Data Marifer rce(s) Supporting Document(s) ID Date Data Source [id number] 12/03/2020 12:18:00 [place] [address] PHONE: [phone] FAX: [phone] Name .................. : TOSIN Rivera Acct Number.................. : [id number] ROOM. ................. : TR-08 MR Number ................... : [id number] Stay type ............. : E/R Discharge Date......... ... : Admit Date ......... : 12/01/20 Admit Phys .................... : LETICIA Burleson Date of ....... : 1990 Family Phys ................... : NON STAFF Phone .................. : [phone] Age ................................ : 30 Film# .................. .:[id number] Sex ................................. : M Unsigned transcriptions are preliminary reports and do not represent a medical or legal document CT HEAD W/O CONTRAST [id number] COMPLETE:12/01/20 15:46 2809 Reason(s): syncope CT SCAN OF THE HEAD WITHOUT CONTRAST: COMPARISON: 10/19/20 FINDINGS: No intra-axial or extra-axial collections of fluid. Ventricles and sulci unremarkable. No midline shift or mass effect. Visualized paranasal sinuses and mastoid air cells unremarkable. IMPRESSION: No acute intracranial process. While performing the above CT examination, radiation dose reduction was accomplished utilizing automated exposure control, adjusting of the mA and kV based on the patient's body size and/or the use of imperative reconstructive techniques. CT dose: 854 mGycm Electronically Reviewed and Signed By Marlon Decker MD , 12/03/20 12:19, AML Transcribe Initials: GAYATHRI , Transcribe Date: 12/01/20 18:22, Dictation Date: Copy for: HARSHAL HINKLE via fax Copy for: EMERGENCY DEPT via modem Copy for: [address] [facility] REC Page 1 of 1 Name Value Range Interpretation Code Description Data Marifer rce(s) Supporting Document(s) ID Date Data Source [id number] 12/03/2020 12:18:00 PM EST [facility] [address] [place] [address] PHONE: [phone] FAX: [phone] Name .................. : TOSIN Rivera Acct Number.................. : [id number] ROOM. ................. : TR-08 Number ................... : [id number] Stay type ............. : E/R Discharge Date......... ... : Admit Date ......... : 12/01/20 Admit Phys .................... : LETICIA Burleson Date of ....... : 1990 Family Phys ................... : NON STAFF Phone .................. : [phone] Age ................................ : 30 Film# .................. .:[id number] Sex ................................. : M Unsigned transcriptions are preliminary reports and do not represent a medical or legal document DOPPLER UNILATERAL VENOUS [id number] COMPLETE:12/01/20 17:32 2812 Reason(s): Has known DVT of the LLE from Jul; had a syncopal episode today LEFT LOWER EXTREMITY VENOUS DUPLEX DOPPLER ULTRASOUND: FINDINGS: Duplex ultrasonography of the deep venous of the left lower extremity does not demonstrate a DVT. Flow and compressibility are demonstrated in the common femoral, femoral and popliteal veins. IMPRESSION: No evidence of a DVT demonstrated on the current study. Electronically Reviewed and Signed By Marlon Decker MD , 12/03/20 12:18, AML Transcribe Initials: GAYATHRI , Transcribe Date: 12/01/20 18:20, Dictation Date: Copy for: HARSHAL HINKLE via fax Copy for: EMERGENCY DEPT via modem Copy for: [facility] REC Page 1 of 1 Name Value Range Interpretation Code Description Data Marifer rce(s) Supporting Document(s) ID Date Data Source [id number] 12/03/2020 06:48:00 AM EST [facility] (Dylan Shi MD) Name Value Range Interpretation Code Description Data Marifer rce(s) Supporting Document(s) Laboratory test finding (navigational concept) 140 meq/L 134-153 [facility] (Dylan Shi MD) Laboratory test finding (navigational concept) Laboratory test result [facility] (Dylan Shi MD) COMPREHENSIVE METABOLIC PANEL Laboratory test finding (navigational concept) 105 meq/L 98-107 [facility] (Dylan Shi MD) Laboratory test finding (navigational concept) 28 meq/L 22-30 [facility] (Dylan Shi MD) Laboratory test finding (navigational concept) 4.1 meq/L 3.6-5.0 [facility] (Dylan Shi MD) Laboratory test finding (navigational concept) 0.8 mg/dL 0.7-1.5 [facility] (Dylan Shi MD) Laboratory test finding (navigational concept) 10 mg/dL 7-21 [facility] (Dylan Shi MD) Laboratory test finding (navigational concept) 100 mg/dL 7 0-99 Above high normal [facility] (Dylan Shi MD) Laboratory test finding (navigational concept) 6.9 g/dL 6.3-8.2 [facility] (Dylan Shi MD) Laboratory test finding (navigational concept) 13 8-27 [facility] (Dylan Shi MD) Laboratory test finding (navigational concept) 4.4 g/dL 3.9-5.0 [facility] (Dylan Shi MD) Laboratory test finding (navigational concept) 2.5 GM/DL 2.4-3.2 [facility] (Dylan Shi MD) Laboratory test finding (navigational concept) 1.8 0.8-2.0 [facility] (Dylan Shi MD) Laboratory test finding (navigational concept) 9.3 mg/dL 8.4-10.2 [facility] (Dylan Shi MD) Laboratory test finding (navigational concept) 18 U/L 5-40 [facility] (Dylan Shi MD) Laboratory test finding (navigational concept) 57 U/L 38-126 [facility] (Dylan Shi MD) Laboratory test finding (navigational concept) Laboratory test resu lt 0.2-1.3 [facility] (Dylan Shi MD) Laboratory test finding (navigational concept) 30 yrs [facility] (Dylan Shi MD) Laboratory test finding (navigational concept) 18 U/L 7-56 [facility] (Dylan Shi MD) Laboratory test finding (navigational concept) 7.0 mmol/L 8 .0-16.0 Below low normal [facility] (Dylan Shi MD) Laboratory test finding (navigational concept) Laboratory test result [facility] (Dylan Shi MD) Laboratory test finding (navigational concept) Laboratory test result [facility] (Dylan Shi MD) Male GFR Interprentation 20-49 yrs >60 mL/min Normal 50-59 yrs >56 mL/min Normal 60-69 yrs >49 mL/min Normal 70-79yrs >42 mL/min Normal 80 and above >35 mL/min Normal Female GFR Interpretation 20-39 yrs >60 mL/min Normal 40-49 yrs >58 mL/min Normal 50-59 yrs >51 mL/min Normal 60-69 yrs >45 mL/min Normal 70-79 yrs >39 mL/min Normal 80 and above >32 mL/min Normal ID Date Data Source [id number] 12/03/2020 06:48:00 AM EST [facility] (Dylan Shi MD) Name Value Range Interpretation Code Description Data Marifer rce(s) Supporting Document(s) Laboratory test finding (navigational concept) Laboratory test result [facility] (Dylan Shi MD) COMPLETE BLOOD COUNT Laboratory test finding (navigational concept) 13.3 g/dL 1 4.0-16.0 Below low normal [facility] (Dylan Shi MD) Laboratory test finding (navigational concept) 5.2 10^3/uL 4.2-11.0 [facility] (Dylan Shi MD) Laboratory test finding (navigational concept) 4.44 10^6/uL 4 .50-6.30 Below low normal [facility] (Dylan Shi MD) Laboratory test finding (navigational concept) 30.0 pg 27.0-34.0 [facility] (Dylan Shi MD) Laboratory test finding (navigational concept) 88.1 fL 80.0-94.0 [facility] (Dylan Shi MD) Laboratory test finding (navigational concept) 39.1 % 4 1.0-51.0 Below low normal [facility] (Dylan Shi MD) Laboratory test finding (navigational concept) 34.0 g/dL 31.0-36.0 [facility] (Dylan Shi MD) Laboratory test finding (navigational concept) 185 10^3/uL 150-450 [facility] (Dylan Shi MD) Laboratory test finding (navigational concept) 12.3 % 11.5-14.8 [facility] (Dylan Shi MD) Laboratory test finding (navigational concept) 41.3 % 37.0-80.0 [facility] (Dylan Shi MD) Laboratory test finding (navigational concept) 48.2 % 2 5.0-40.0 Above high normal [facility] (Dylan Shi MD) Laboratory test finding (navigational concept) 10.2 fL 7.4-10.4 [facility] (Dylan Shi MD) Laboratory test finding (navigational concept) 7.8 % 3.0-8.0 [facility] (Dylan Shi MD) Laboratory test finding (navigational concept) 0.4 % 0.0-2.0 [facility] (Dylan Shi MD) Laboratory test finding (navigational concept) 2.1 % 0.0-7.0 [facility] (Dylan Shi MD) Laboratory test finding (navigational concept) 2.16 10^3/uL 2.00-6.90 [facility] (Dylan Shi MD) Laboratory test finding (navigational concept) 0.0 % 0.0-0.0 [facility] (Dylan Shi MD) Laboratory test finding (navigational concept) 0.2 % 0.0-0.0 Above high normal [facility] (Dylan Shi MD) Laboratory test finding (navigational concept) 0.41 10^3/uL 0.00-0.90 [facility] (Dylan Shi MD) Laboratory test finding (navigational concept) 2.52 10^3/uL 0.60-3.40 [facility] (Dylan Shi MD) Laboratory test finding (navigational concept) 0.02 10^3/uL 0.00-0.20 [facility] (Dylan Shi MD) Laboratory test finding (navigational concept) 0.11 10^3/uL 0.00-0.70 [facility] (Dylan Shi MD) Laboratory test finding (navigational concept) 0.00 10^3/uL 0.00-0.00 [facility] (Dylan Shi MD) Laboratory test finding (navigational concept) Laboratory test result [facility] (Dylan Shi MD) Laboratory test finding (navigational concept) 0.01 10^3/uL 0.00-0.10 [facility] (Dylan Shi MD) Laboratory test finding (navigational concept) Laboratory test result [facility] (Dylan Shi MD) ID Date Data Source [id number] 12/03/2020 07:29:00 AM EST [facility] Name Value Range Interpretation Code Description Data Marifer rce(s) Supporting Document(s) COMPREHENSIVE METABOLIC PANEL [facility] COMPREHENSIVE METABOLIC PANEL Sodium [Moles/volume] in Serum or Plasma 140 mEq/L 134 - 153 [facility] Potassium [Moles/volume] in Serum or Plasma 4.1 mEq/L 3.6 - 5.0 [facility] Chloride [Moles/volume] in Serum or Plasma 105 mEq/L 98 - 107 [facility] Carbon dioxide, total [Moles/volume] in Serum or Plasma 28 MEQ/L 22 - 30 [facility] Glucose [Mass/volume] in Serum or Plasma 100 MG/DL 70 - 99 H [facility] BUN 10 MG/DL 7 - 21 [facility] al Creatinine [Mass/volume] in Serum or Plasma 0.8 MG/DL 0.7 - 1.5 [facility] BUN/CREAT 13 8 - 27 [facility] Protein [Mass/volume] in Serum or Plasma 6.9 G/DL 6.3 - 8.2 [facility] Albumin [Mass/volume] in Serum or Plasma 4.4 G/DL 3.9 - 5.0 [facility] Globulin [Mass/volume] in Serum by calculation 2.5 GM/DL 2.4 - 3.2 [facility] A/G RATIO 1.8 0.8 - 2.0 [facility] Calcium [Mass/volume] in Serum or Plasma 9.3 MG/DL 8.4 - 10.2 [facility] Bilirubin.total [Mass/volume] in Serum or Plasma <0.7 MG/DL 0.2 - 1.3 [facility] Alkaline phosphatase [Enzymatic activity/volume] in Serum or Plasma 57 U/L 38 - 126 [facility] Aspartate aminotransferase [Enzymatic activity/volume] in Serum or Plasma 18 U/L 5 - 40 [facility] Alanine aminotransferase [Enzymatic activity/volume] in Seru m or Plasma 18 U/L 7 - 56 [facility] Anion gap 3 in Serum or Plasma 7.0 mmol/L 8.0 - 16.0 L [facility] AGE 30 yrs [facility] al NON-AA GFR >60 mL/min [facility] ital AFR AMER GFR >60 mL/min [facility] Male GFR In terprentation 20-49 yrs >60 mL/min Normal 50-59 yrs >56 mL/min Normal 60-69 yrs >49 mL/min Normal 70-79yrs >42 mL/min Normal 80 and above >35 mL/min Normal Female GFR Interpretation 20-39 yrs >60 mL/min Normal 40-49 yrs >58 mL/min Normal 50-59 yrs >51 mL/min Normal 60-69 yrs >45 mL/min Normal 70-79 yrs >39 mL/min Normal 80 and above >32 mL/min Normal ID Date Data Source [id number] 12/03/2020 07:12:00 AM EST [facility] Name Value Range Interpretation Code Description Data Marifer rce(s) Supporting Document(s) CBC W/AUTOMATED DIFF [facility] COMPLETE BLOOD COUNT Leukocytes [#/volume] in Blood by Automated count 5.2 10^3/uL 4.2 - 1 1.0 [facility] Erythrocytes [#/volume] in Blood by Automated count 4.44 10^6/uL 4. 50 - 6.30 L [facility] Hemoglobin [Mass/volume] in Blood 13.3 g/dL 14.0 - 16.0 L [facility] Hematocrit [Volume Fraction] of Blood by Automated count 39.1 % 4 1.0 - 51.0 L [facility] Erythrocyte mean corpuscular volume [Entitic volume] by Auto mated count 88.1 fL 80.0 - 94.0 [facility] Erythrocyte mean corpuscular hemoglobin [Entitic mass] by Automated count 30.0 pg 27.0 - 34.0 [facility] Erythrocyte mean corpuscular hemoglobin concentration [Mass/volume] by Automated count 34.0 g/dL 31.0 - 36.0 [facility] Erythrocyte distribution width [Ratio] by Automated count 12.3 % 11.5 - 14.8 [facility] Platelets [#/volume] in Blood by Automated count 185 10^3/uL 150 - 45 0 [facility] Platelet mean volume [Entitic volume] in Blood by Automated count 10.2 fL 7.4 - 10.4 [facility] Neutrophils/100 leukocytes in Blood by Automated count 41.3 % 37. 0 - 80.0 [facility] Lymphocytes/100 leukocytes in Blood by Manual count 48.2 % 25.0 - 40.0 H [facility] Monocytes/100 leukocytes in Blood by Automated count 7.8 % 3.0 - 8.0 [facility] Eosinophils/100 leukocytes in Blood by Automated count 2.1 % 0.0 - 7.0 [facility] Basophils/100 leukocytes in Blood by Automated count 0.4 % 0.0 - 2.0 [facility] %IG 0.2 % 0.0 - 0.0 H [facility] al %NRBC 0.0 % 0.0 - 0.0 [facility] al Neutrophils [#/volume] in Blood by Automated count 2.16 10^3/uL 2.00 - 6.90 [facility] Lymphocytes [#/volume] in Blood by Automated count 2.52 10^3/uL 0.60 - 3.40 [facility] Monocytes [#/volume] in Blood by Automated count 0.41 10^3/uL 0.00 - 0.90 [facility] Eosinophils [#/volume] in Blood by Automated count 0.11 10^3/uL 0.00 - 0.70 [facility] Basophils [#/volume] in Blood by Automated count 0.02 10^3/uL 0.00 - 0.20 [facility] #IG 0.01 10^3/uL 0.00 - 0.10 [facility] #NRBC 0.00 10^3/uL 0.00 - 0.00 [facility] MANUAL DIFF NOT INDICATED [facility] RBC MORPH NOT INDICATED [facility] spital ID Date Data Source [id number] 12/02/2020 12:36:00 [place] [address] RESPIRATORY CARE REPORT ==== ---------NAME------- NUMBER SEX AGE ADMIT DISC. XRAY# F/C RHONDA WONG N [id number] M 30 12/01/[id number] SB4 O/P DATE OF : 1990 M/R# [id number] PH#: [phone] LOCATION: EMERGENCY DEPT EKG [id number] COMP LETE:12/02/20 08:14 ED [id number] PHYSICIAN: AMARJIT Name Value Range Interpretation Code Description Data Marifer rce(s) Supporting Document(s) ID Date Data Source [id number] 12/02/2020 12:35:00 [place] [address] RESPIRATORY CARE REPORT ==== ---------NAME------- NUMBER SEX AGE ADMIT DISC. XRAY# F/C RHONDA Rivera [id number] M 30 12/01/[id number] SB4 O/P DATE OF : 1990 M/R# [id number] PH#: [phone] LOCATION[place] [id number] COMP LETE:12/02/20 06:27 ED 97529 PHYSICIAN: AMARJIT MACE [facility] Name Value Range Interpretation Code Description Data Marifer rce(s) Supporting Document(s) ID Date Data Source [id number] 12/02/2020 04:48:00 AM [facility] Name Value Range Interpretation Code Description Data Marifer rce(s) Supporting Document(s) TROPONIN T <0.01 NG/ML 0.00 - 0.10 [facility] ospital TROPONIN T0.1 ng/ml Recommended as the c linical threshold value forTroponin T. ID Date Data Source [id number] 12/02/2020 04:47:00 AM [facility] Name Value Range Interpretation Code Description Data Marifer rce(s) Supporting Document(s) BASIC METABOLIC PANEL [facility] BASIC METABOLIC PANEL Sodium [Moles/volume] in Serum or Plasma 140 mEq/L 134 - 153 [facility] Potassium [Moles/volume] in Serum or Plasma 3.8 mEq/L 3.6 - 5.0 [facility] Chloride [Moles/volume] in Serum or Plasma 106 mEq/L 98 - 107 [facility] Carbon dioxide, total [Moles/volume] in Serum or Plasma 27 MEQ/L 22 - 30 [facility] Glucose [Mass/volume] in Serum or Plasma 100 MG/DL 70 - 99 H [facility] BUN 12 MG/DL 7 - 21 [facility] al Creatinine [Mass/volume] in Serum or Plasma 0.9 MG/DL 0.7 - 1.5 [facility] BUN/CREAT 13 8 - 27 [facility] Calcium [Mass/volume] in Serum or Plasma 9.1 MG/DL 8.4 - 10.2 [facility] Anion gap 3 in Serum or Plasma 7.0 mmol/L 8.0 - 16.0 L [facility] AGE 30 yrs [facility] al AFR AMER GFR >60 mL/min [facility] NON-AA GFR >60 mL/min [facility] ital Male GFR Inter prentation 20-49 yrs >60 mL/min Normal 50-59 yrs >56 mL/min Normal 60-69 yrs >49 mL/min Normal 70-79yrs >42 mL/min Normal 80 and above >35 mL/min Normal Female GFR Interpretation 20-39 yrs >60 mL/min Normal 40-49 yrs >58 mL/min Normal 50-59 yrs >51 mL/min Normal 60-69 yrs >45 mL/min Normal 70-79 yrs >39 mL/min Normal 80 and above >32 mL/min Normal ID Date Data Source [id number] 12/02/2020 04:23:00 AM EST [facility] Name Value Range Interpretation Code Description Data Marifer rce(s) Supporting Document(s) CBC W/AUTOMATED DIFF [facility] COMPLETE BLOOD COUNT Leukocytes [#/volume] in Blood by Automated count 5.4 10^3/uL 4.2 - 1 1.0 [facility] Erythrocytes [#/volume] in Blood by Automated count 4.25 10^6/uL 4. 50 - 6.30 L [facility] Hemoglobin [Mass/volume] in Blood 12.7 g/dL 14.0 - 16.0 L [facility] Hematocrit [Volume Fraction] of Blood by Automated count 37.4 % 4 1.0 - 51.0 L [facility] Erythrocyte mean corpuscular volume [Entitic volume] by Auto mated count 88.0 fL 80.0 - 94.0 [facility] Erythrocyte mean corpuscular hemoglobin [Entitic mass] by Automated count 29.9 pg 27.0 - 34.0 [facility] Erythrocyte mean corpuscular hemoglobin concentration [Mass/volume] by Automated count 34.0 g/dL 31.0 - 36.0 [facility] Erythrocyte distribution width [Ratio] by Automated count 12.6 % 11.5 - 14.8 [facility] Platelets [#/volume] in Blood by Automated count 186 10^3/uL 150 - 45 0 [facility] Platelet mean volume [Entitic volume] in Blood by Automated count 10.3 fL 7.4 - 10.4 [facility] Neutrophils/100 leukocytes in Blood by Automated count 37.0 % 37. 0 - 80.0 [facility] Lymphocytes/100 leukocytes in Blood by Manual count 51.8 % 25.0 - 40.0 H [facility] Monocytes/100 leukocytes in Blood by Automated count 8.4 % 3.0 - 8.0 H [facility] Eosinophils/100 leukocytes in Blood by Automated count 2.0 % 0.0 - 7.0 [facility] Basophils/100 leukocytes in Blood by Automated count 0.6 % 0.0 - 2.0 [facility] %IG 0.2 % 0.0 - 0.0 [facility] %NRBC 0.0 % 0.0 - 0.0 [facility] al Neutrophils [#/volume] in Blood by Automated count 1.99 10^3/uL 2.00 - 6.90 L [facility] Lymphocytes [#/volume] in Blood by Automated count 2.78 10^3/uL 0.60 - 3.40 [facility] Monocytes [#/volume] in Blood by Automated count 0.45 10^3/uL 0.00 - 0.90 [facility] Eosinophils [#/volume] in Blood by Automated count 0.11 10^3/uL 0.00 - 0.70 [facility] Basophils [#/volume] in Blood by Automated count 0.03 10^3/uL 0.00 - 0.20 [facility] #IG 0.01 10^3/uL 0.00 - 0.10 [facility] #NRBC 0.00 10^3/uL 0.00 - 0.00 [facility] MANUAL DIFF NOT INDICATED [facility] RBC MORPH NOT INDICATED [facility] ID Date Data Source [id number] 12/01/2020 02:50:00 PM EST [facility] 1 OrderSheet [facility] Emergency Department [address] [place] [address] Phone #: ext- [phone] 12/01/2020 14:49 Patient: MARVIN LEAHY Sex: M : 1990 Age: 30yWEIGHT:102.0 kg (S)ALLERGIES: SeafoodCHIEF COMPLAINT: syncopeDIAGNOSIS: Syncope, Blood in urineLAB ORDERSOrder Description Priority Entered Acknowledged InitialedCBC w Diff STAT 15:46 12/01/2020 15:54 Harry Garza RN P.A.-C;CMP STAT 15:46 12/01/2020 15:54 Harry Garza RN P.A.-C;Lipase STAT 15:46 12/01/2020 15:54 Harry Garza RN P.A.-C;PT/PTT STAT 15:46 12/01/2020 15:54 Harry Garza RN P.A.-C;Troponin-T STAT 15:46 12/01/2020 15:54 Harry Garza RN P.A.-C;TSH STAT 15:46 12/01/2020 15:54 Harry Corey Garza RN P.A.-C;Urinalysis (Clean STAT 15:46 12/01/2020 17:52 TerryCatch) Corey Garza RN P.A.-C;Magnesium STAT 15:46 12/01/2020 15:55 Harry Corey Garza RN P.A.-C;D-Dimer STAT 17:32 12/01/2020 17:35 Harry Corey arias RN P.A.-C;COVID-19 CAH STAT 17:50 12/01/2020 18:33 Harry(Unknown Corey Garza RNSymptomatic as P.A.-C;Defined by CDC) 2 OrderSheet [facility] Emergency Department [address] [place] [address] Phone #: ext- [phone] 12/01/2020 14:49 Patient: MARVIN LEAHY Sex: M : 1990 Age: 30y([id number]) (FirstTest) (NotHospitalized)(Unknown if) (NotResident inCongregate CareSetting) (NotEmployed inHealthcare Setting) NOTES: ? admissionDIAGNOSTIC STUDY ORDERSOrder Description Priority Entered Acknowledged InitialedCT Head W/O Cont STAT 15:46 12/01/2020 15:55 Harry(Oxygen?(No)) Corey Garza RN P.A.-C; Reason for Study: syncopeChest 1 View STAT 15:46 12/01/2020 15:55 Harry(Oxygen?(No)) Corey Garza RN P.A.-C; Reason for Study: syncopeUS Lower Ext STAT 17:32 12/01/2020 17:35 TerryVenous Left Corey Garza RN(Oxygen?(No)) P.A.-C; Reason for Study: Has known DVT of the LLE from Jul; had a syncopal episode todayMEDICATION/IV/DRIP/FLUID ORDERSOrder Description Priority Entered Acknowledged InitialedIV NS : Bolus 500 15:46 12/01/2020 17:18 TerrymL, then 100 mL/hr Corey Garza RN P.A.-C;Tylenol 1 g PO X1 15:46 12/01/2020 16:53 Terrydose: 1000 mg Corey Garza RN(NOW x1) P.A.-C;Ativan IVP 1 mg 15:46 12/01/2020 17:17 Harry(HIGH ALERT Corey Garza RNMEDICATION) P.A.-C;GENERAL ORDERSOrder Description Priority Entered Acknowledged InitialedBlood Pressure 15:46 12/01/2020 15:54 Harry 3 OrderSheet [facility] Emergency Department [address] [place] [address] Phone #: ext- [phone] 12/01/2020 14:49 Patient: MARVIN LEAHY Se x: M : 1990 Age: 30yMonitor Corey Garza RN P.A.-C;Box Attacher 15:46 12/01/2020 15:54 Harry(continuous) Corey Garza RN P.A.-C;EKG 15:46 12/01/2020 15:54 Harry Garza RN P.A.-C;NPO 15:46 12/01/2020 15:54 Harry Garza RN P.A.-C;Obtain Old EKG 15:46 12/01/2020 15:54 Harry Garza RN P.A.-C;Obtain Old Records 15:46 12/01/2020 15:54 Harry Garza RN P.A.-C;Saline Lock 15:46 12/01/2020 17:16 Harry Corey Garza RN P.A.-C;Vitals 15:46 12/01/2020 15:54 Harry Corey Garza RN P.A.-C;Accucheck 15:46 12/01/2020 17:16 Terrell farrar Corey Garza RN P.A.-C;[Electronically signed by Corey Mace P.A.-C (22:01 12/01/2020)][Electronically signed by Bethany Granados R.N. (03:40 12/02/2020)][Electronically locked by Bethany Granados R.N. (03:40 12/02/2020)] Name Value Range Interpretation Code Description Data Marifer rce(s) Supporting Document(s) ID Date Data Source [id number] 12/01/2020 02:50:00 PM EST [facility] 1 Medication Reconciliation Report [facility] Emergency Department [address] [place] [address] Phone #: ext- [phone] 12/01/2020 14:49 Patient: MARVIN LEAHY Sex: M : 1990 Age: 30yWeight: 102.0 kgHeight/Length: 68 in.BMI: 34.2ALLERGIES: SeafoodThe patient's Home Medications are listed below:THE FOLLOWING MEDICATIONS NEED TO BE RECONCILED: Acetaminophen Oral (325 mg) 2 tablets, 2x a day Divalproex Sodium Oral (250 mg), 2x a day Eliquis Oral (5 mg), 2x a day Escitalopram Oxalate Oral (10 mg), 2x a day Ivermectin Oral (3 mg) 3 tabs, every 6 months Lidocaine External Memetasone furoate 15mg , 4x a day Methocarbamol Oral (500 mg), 2x a day risperiDONE Oral (1 mg), 2x a day traZODone HCl Oral (50 mg), daily Trolamine Salicylate External Xolair Subcutaneous (150 mg) 300mg, 3x a weekThe source(s) of the original Home Medica tion information:patientThe following Medications were given to the patient in the Emergency Department: 2 Medication Reconciliation Report [facility] Emergency Department [address] [place] [address] Phone #: ext- [phone] 12/01/2020 14:49 Patient: MARVIN LEAHY Sex: M : 1990 Age: 30yTylenol [PO] PO 1000 mg, administered: 16:50 1Ativan [IVP] IVP 1 mg, administered: 17:12 12/01/2020IV NS IV Fluids bolus 500 mL over 1 hour(s), then 100 mL/hr, administered: 17:13 12/01/2020The following Medications were prescribed to the patient:None. Name Value Range Interpretation Code Description Data Marifer rce(s) Supporting Document(s) ID Date Data Source [id number] 12/01/2020 02:50:00 PM EST [facility] 1 Medication Administration Record [facility] Emergency Department [address] [place] [address] Phone #: ext- [phone] 12/01/2020 14:49 Patient: MARVIN LEAHY Sex: M : 1990 Age: 30yWeight: 102.0 kgHeight/Length: 68 inBMI: 34.2ALLERGIES: Seafood Date/Time Medication Administered Medication OrderedStart IV NS IV NS : Bolus 500 mL, then 70424:13 12/01/2020 Dose: IV Fluids mL/hrTcamilla Garza RN Rate: 100 mL/hr over 5 hour(s)---- Bolus: 500 mL over 1 hour(s)Continued Upon Disposition Dispensed: 1000 mL bag20:46 12/01/2020 Site: #1 right ACTina Sandeep Holder R.N.Given TYLENOL [PO] (APAP) Tylenol 1 g PO X1 dose: 1000 mg16:50 12/01/2020 Dose: 1000 mg Tablets PO (NOW x1)Harry Garza RNGiven ATIVAN [IVP] (LORAZEPAM) Ativan IVP 1 mg (HIGH ALERT17:12 12/01/2020 Dose: 1 mg IVP MEDICATION)Harry Garza RN Site: #1 right AC Name Value Range Interpretation Code Description Data Marifer rce(s) Supporting Document(s) ID Date Data Source [id number] 12/01/2020 02:50:00 PM EST [facility] 1 General Instructions [facility] Emergency Department [address] [place] [address] Phone #: ext- [phone] 12/01/2020 14:49 Patient: MARVIN LEAHY Sex: M : 1990 Age: 30ySyncope of unknown cause.Microscopic hematuria. ADDITIONAL INFORMATIONFainting: Uncertain CauseFainting (syncope) is a temporary loss of consciousness. It's often associated with a loss of posturaltone. It's also called passing out. It occurs when blood flow to the brain is less than normal. There areother causes of fainting, too. Near- fainting (near-syncope) is very similar to fainting, but you don't fullypass out.Most commonly, fainting is for reasons that aren't necessarily serious or life-threatening, although youmay still get injured. Common triggers of less serious types of fainting include: Sudden fear Pain Nausea Emotional stress OverexertionSuddenly standing up after sitting or lying for a long time can also cause fainting.More serious causes of fainting include: Very slow or very fast heartbeat (arrhythmia) Other types of heart disease, such as heart valve disease or coronary artery disease Dehydration Loss of blood Seizure Stroke Ruptured blood vessel in the brain 2 General Instructions [facility] Emergency Department [address] [place] [address] Phone #: ext- [phone] 12/01/2020 14:49 Patient: MARVIN LEAHY A cct#: [id number] Sex: M : 1990 Age: 30yTaking too much high blood pressure medicine can also cause low blood pressure and fainting.Your healthcare provider may be able to tell why you are fainting by reviewing your health history andhearing about your fainting episodes. If the cause of your fainting remains unknown or if yourhealthcare provider is concerned about a more serious cause he or she may determine that you needfurther testing. Testing may include: Echocardiogram. This will take ultrasound pictures of your heart to evaluate the heart's structure and function Stress test. This will check for abnormalities with you heart function or heart rhythm with exercise Tilt table test. This evaluates for changes in blood pressure or heart rate when going from a laying position to standing Heart monitoring. This will evaluate for heart rhythms that are too slow or too fast that may be the cause of your fainting Lab tests. This can check for abnormalities in electrolytes, blood counts and other thingsHome careFollow these guidelines when caring for yourself at home: Rest today. You may go back to your normal activities when you are feeling back to normal. It's best to stay with someone who can check on you for the next 24 hours to watch for another episode of fainting. If you become lightheaded or dizzy, lie down right away and try to prop your feet above the level of your head. Or sit with your head between your knees. Because the provider doesn't know the exact cause of your fainting or near-fainting spell, it's possible for you to have another spell without warning. Because of this, don't drive a car or operate dangerous equipment until your healthcare provider says it's OK to do so. Don't take a bath alone. Use a shower instead. Don't swim alone until your healthcare provider says that you are no longer in danger of having another fainting spell.Follow-up careFollow up with your healthcare provider, or as advised.When to seek medical careCall your healthcare provider right away if any of these occur: Another fainting spell that's not explained by the common causes listed above 3 General Instruction s [facility] Emergency Department [address] [place] [address] Phone #: ext- [phone] 12/01/2020 14:49 Patient: MARVIN LEAHY Sex: M : 1990 Age: 30y Pain in your chest, arm, neck, jaw, back, or abdomen Shortness of breath Severe headache or seizure Blood in vomit or stools (black or red color) Unexpected vaginal bleeding Your heart beats very rapidly, very slowly, or irregularly (palpitations)Also call your provider if you have signs of stroke: Weakness in an arm or leg or on one side of the face Trouble speaking or seeing Extreme drowsiness, confusion, dizziness, or fainting [id number] [employer] [place] [address], [place] [address]. All rights reserved. This information is not intended as asubstitute for professional medical care. Always follow your healthcare professional's instructions. You have been given the following additional information: Fainting, Uncertain Cause(Electronically signed by Corey Mace P.A.-C 12/01/2020 22:01) Name Value Range Interpretation Code Description Data Marifer rce(s) Supporting Document(s) ID Date Data Source [id number] 12/01/2020 02:50:00 PM EST [facility] 1 Clinical Report - Nurses [facility] Emergency Department [address] [place] [address] Phone #: ext- [phone] 12/01/2020 14:49 Patient: MARVIN LEAHY Sex: M : 1990 Age: 30yTRIAGEArrived by EMS. Historian: EMS and patient. ( [facility] said he was on his way here for severe L leg pain and low back pain, hx of DVT).Triage time: 14:53 12/01/2020. Acuity: LEVEL 3.Chief Complaint: SINGLE SYNCOPAL EPISODE.Alert. 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 SEPSIS SCREEN NEGATIVE. No suspected or confirmedsigns of infection present. --14:59 12/01/20 Velma Jimenes RN14:53 12/01/20. BP: 126/90. MAP: 102. HR: 95. RR: 20. O2 saturation: 100%. Temp: 98.2 F. Pain levelnow: 08/18. --14:59 12/01/20 Velma Jimenes, PATSY.Weight: 102 kg stated. Height/Length: 68 inches Per Patient. BMI: 34.2. --14:55 12/01/20 Velma Jimenes RN.MedicationsAcetaminophen Oral (Tablet Chewable 325 mg) 2 tablets, 2x a day. Divalproex Sodium Oral (Tablet Delayed Release 250 mg), 2x a day. Escitalopram Oxalate Oral (Tablet 10 mg), 2x a day. Ivermectin Oral (Tablet 3 mg) 3 tabs, every 6 months. Lidocaine External. Memetasone furoate 15mg , 4x a day. Methocarbamol Oral (Tablet 500 mg), 2x a day. risperiDONE Oral (Tablet Disintegrating 1 mg), 2x a day. traZODone HCl Oral (Tablet 50 mg), daily. Trolamine Salicylate External. Xolair Subcutaneous (Solution Reconstituted 150 mg) 300mg, 3x a week. --14:58 12/01/20 Velma Jimenes RN Eliquis Oral (Tablet 5 mg), 2x a day. --15:01 12/01/20 Velma Jimenes RNThe following entry was struck by Velma Jimenes RN, 15:01 (12/01/20) Reason - other. Apixaban Oral (Tablet 5 mg), 2x a day. --14:58 12/01/20 Velma Jimenes RN . 2 Clinical Report - Nurses [facility] Emergency Department [address] [place] [address] Phone #: ext- [phone] 12/01/2020 14:49 Patient: MARVIN LEAHY Sex: M : 1990 Age: 30yAllergiesSeafood. --14:58 12/01/20 Velma Jimenes RN.PROBLEMS:Hematuria.Syncope.Skin Problems.Hypertension.Lumbar Strain. --14:59 12/01/20 Velma Jimenes RNChronic Back Pain.DVT - Deep Venous Thrombosis. --16:08 12/01/20 Velma Jimenes RNThe following entry was modified by Velma Jimenes RN, 14:59 12/01/20DVT - Deep Venous Thrombosis. --14:58 12/01/20 Velma Jimenes RNThe following entry was modified by Velma Jimenes RN, 14:59 12/01/20Back Pain. --14:58 12/01/20 Velma Jimenes RNThe following entry was modified by Velma Jimenes RN, 16:07 12/01/20DVT - Deep Venous Thrombosis. --16:07 12/01/20 Velma Jimenes RNThe following entry was modified by Velma Jimenes RN, 16:07 12/01/20Back Pain. --16:06 12/01/20 Velma Jimenes RNThe following entry was modified by Velma Jimenes RN, 16:07 12/01/20DVT - Deep Venous Thrombosis. --16:07 12/01/20 Velma Jimenes RNThe following entry was modified by Velma Jimenes RN, 16:07 12/01/20DVT - Deep Venous Thrombosis: Active. --16:07 12/01/20 Velma Jimenes RNThe following entry was modified by Velma Jimenes RN, 16:07 12/01/20 Reason - duplicateBack Pain: Active. --16:07 12/01/20 Velma Jimenes RNThe following entry was modified by Velma Jimenes RN, 16:07 12/01/20 Reason - duplicateDVT - Deep Venous Thrombosis: Active. --16:07 12/01/20 Velma Jimenes RN.Medication/allergy information source: the patient and patient's previous visit record. --14:59 12/01/20Velma Jimenes RN.ADDITIONAL SURGERIES:no known surgeries.HistorySOCIAL HX: Never smoker. Occasional alcohol use. He was offered HIV testing but declined andhepatitis C testing but declined. He has not traveled outside the [place]Infectious disease exposure: No infectious disease exposure.SELF HARM ASSESSMENT: Self harm assessment was performed. The patient answered "no" to thequestion(s) "Have you recently felt down, depressed, or hopeless?".ABUSE ASSESSMENT: No report of abuse. 3 Clinical Report - Nurses [facility] Emergency Department [address] [place] [address] Phone #: ext- [phone] 12/01/2020 14:49 Patient: MARVIN LEAHY [facility]#: [id number] Sex: M : 1990 Age: 30y NUTRITIONAL RISK ASSESSMENT: The nutritional risk assessment revealed no deficiencies. FUNCTIONAL ASSESSMENT: Functional assessment: no impairments noted. LEARNING NEEDS ASSESSMENT: The learning needs assessment revealed no barriers. FALL RISK ASSESSMENT: Fall risk assessment completed. No risk factors identified. SKIN INTEGRITY ASSESSMENT: Skin integrity risk assessment completed. No skin integrity risk identified. --14:59 12/01/20 Velma Jimenes RN.PHYSICAL HCGDGYRAWV86:23 12/01/20. To room via stretcher.GENERAL / NEURO / PSYCH: Oriented X 4. Alert. Speech within normal limits.HEENT: No facial asymmetry noted.RESPIRATORY: Breath sounds within normal limits. Respirations not labored.CVS: Cardiac rhythm: normal sinus rhythm. Capillary refill less than 2 seconds.GI / : Abdomen soft and nontender.SKIN: Skin is warm and dry. --15:23 12/01/20 Harry Garza RN.NURSING PROGRESS NOTESMonitoring of patient in place. EKG time: (14:52 12/01/2020). EKG was performed by a tech and shownto the ED physician. Patient gowned. Reassurance given. Two patient identifiers checked. Side railsup x 2. Bed placed in lowest position. Brakes of bed on. Patient ready for evaluation. --14:59 12/01/20Velma Jimenes RN Call light placed in reach. --15:23 12/01/20 Harry Garza RN 15:37 12/01/20. BP: 155/89. MAP: 111. HR: 274. RR: 26. O2 saturation: 99%. --15:37 12/01/20 [employer] follow up manager Verónica, ER Tech1 Correction. --15:58 12/01/20 [employer] follow up manager Verónica, ER Tech1 15:30 12/01/20. BP: 155/89. MAP: 111. HR: 74. RR: 26. O2 saturation: 99%. --15:59 12/01/20 [employer] follow up manager Verónica, ER Tech1 16:50 12/01/2020 Tylenol (APAP) PO Tablets 1000 mg given. Allergies verified and confirmed 5 rights. Information reviewed with patient. --16:53 12/01/20 Harry Garza RN 16:53 12/01/2020 Four (4) unsuccessful IV access attempts (unable to gain IV excess after multiple trys). --16:53 12/01/20 Harry Garza RN 17:02 12/01/2020 Site #1 started via IV in the right antecubital space with an 22g angiocath; four attempts. --17:17 12/01/20 Harry Garza RN 4 Clinical Report - Nurses [facility] Emergency Department [address] [place] [address] Phone #: ext- [phone] 12/01/2020 14:49 Patient: MARVIN LEAHY Sex: M : 1990 Age: 30y17:12 12/01/2020 Ativan (LORazepam) IVP 1 mg given over 1 minute(s) via site #1. Allergies verified andconfirmed 5 rights. IV patency established. IV site checked: no pain, redness, or swelling. IV flushedthoroughly pre- and post- medication administration. IVP given by RN. Information reviewed with patientincluding sedative warning. --17:17 12/01/20 Harry Garza RN17:13 12/01/2020 Started bag #1 1000 mL IV Fluids IV NS; bolus of 500 mL over 1 hour(s) then at 100mL/hr over 5 hour(s) via site #1 via IV pump. Allergies verified and confirmed 5 rights. IV patencyestablished. IV site checked: no pain, redness, or swelling. IV flushed thoroughly pre- and post- medicationadministration. Information reviewed with patient. --17:18 12/01/20 Harry Garza RN17:28 12/01/20. BP: 127/73. MAP: 91. HR: 68. RR: 16. O2 saturation: 99%. --17:28 12/01/20 Verónica [facility]EN[facility] [id number] transported to CT by wheelchair with mask and optometric technologist. (4325). --17:35 12/01/20 QUENTIN Shettyatisharon transported to sonogram. (1750 at bedside). --17:53 12/01/20 Harry Garza RN18:01 12/01/20. BP: 127/78. MAP: 94. HR: 73. RR: 16. O2 saturation: 100%. --18:02 12/01/20 [facility] [id number] isolation precautions initiated. Mask, gowns and gloves in use. (182). Patient ID band checkedfor patient name and birthdate: patient confirmed. COVID-19 specimen obtained by RN via nasopharyngealswab. Labeled in the presence of the patient and sent to lab (1819). --18:31 12/01/20 Harry Garza RN18:31 12/01/20. BP: 137/88. MAP: 104. HR: 64. RR: 20. O2 saturation: 98% on room air. --18:321 Harry Garza RN19:00 12/01/20. BP: 114/97. MAP: 102. HR: 71. RR: 17. O2 saturation: 100%. --19:00 12/01/20 [facility] [id number] patient is calm and resting quietly. Overall patient status is improved. ( Call placed to [facility]. Messageleft to call when available for report.). --19:36 12/01/20 Bethany Holder R.N.( Rapid COVID test negative.). --19:36 12/01/20 Bethany Holder R.N.20:05 12/01/20. BP: 137/77. MAP: 97. HR: 79. RR: 26. O2 saturation: 100%. --20:05 12/01/20 Verónica HernandezEN[facility] Tubb341:46 12/01/2020 IV Fluids IV NS via IV site #1 Continued: at the rate of 100 mL/hr. 300 mL remaining bag#1. IV patency established. IV site checked: no pain, redness, or swelling. IV flushed thoroughly. --20: Bethany Holder R.N.DISPOSITION / DISCHARGE 5 Clinical Report - Nurses [facility] Emergency Department [address] [place] [address] Phone #: ext- [phone] 12/01/2020 14:49 Patient: MARVIN LEAHY Sex: M : 1990 Age: 30y 20:35 12/01/2020 Site #[address] upon admission. --20:35 12/01/20 Bethany Holder R.N. Condition at departure: improved and stable. Disposition: observation in the Acute Inpatient Unit, Monitored. Transported via stretcher by nurse with monitor and IV. Report was given to a nurse in person. Report was acknowledged. (PATSY Camarena). Patient's personal items; items were placed in belongings bag and transported with the patient. --20:35 12/01/20 Bethany Holder R.N. 20:35 12/01/20. BP: 144/74. MAP: 97. HR: 76. RR: 22. O2 saturation: 99%. Temp: 98 F. Pain level now: 04/18. --20:36 12/01/20 Bethany Holder R.N. Departure time: 20:50 12/01/2020. --20:56 12/01/20 Bethany Holder R.N.Locked/Released at 12/02/2020 03:40 by Bethany Holder R.N. Name Value Range Interpretation Code Description Data Marifer rce(s) Supporting Document(s) ID Date Data Source [id number] 12/01/2020 02:50:00 PM EST [facility] 1 Clinical Report - Physicians/Mid Levels [facility] Emergency Department [address] [place] [address] Phone #: ext- [phone] 12/01/2020 14:49 Patient: MARVIN LEAHY Sex: M : 1990 Age: 30y Time Seen: 15:41 12/01/2020; initial patient contact, initial documentation. Arrived- By private vehicle. Historian- patient. Disposition decision: 18:34 12/01/2020.HISTORY OF PRESENT ILLNESS Chief Complaint: SYNCOPE. The patient has recovered. This occurred just prior to arrival. Patient was witnessed to be last known well. Event was witnessed. The patient felt faint and collapsed. At time of event, he was standing. Had a sin gle episode. No injuries noted. Currently he feels normal (other than L cramp and lower back pain.). (Pt sts that he has a known DVT of the LLE that he is seeing Hematolgy for since July and on medication thta he has not missed a dose. Sts that he LLE was cramping and casuing pain and had excerbation of chronci LBP and decided to come to the ER for eval, but decided to stop at [facility] prior to coming to the ER for his pain. While at [facility] he ahd a sycopal episode and complaining now of a excerbation of his LBP. Deneis any CP, SOB, dyspnea, or palps.). Similar symptoms previously. None. Recent medical care: Not recently seen/assessed.REVIEW OF SYSTEMS No headache, dizziness, weakness, chest pain or palpitations. No abdominal pain, vomiting, diarrhea, black stools or numbness. No bloody stools, fever, sore throat, difficulty breathing or difficulty with urination. No skin rash, enlarged lymph nodes, cough or joint pain. All other systems reviewed and are negative.PAST HISTORY Se e nurses notes. Problems: Chronic Back Pain. DVT - Deep Venous Thrombosis. Hematuria. Syncope. Skin Problems. Hypertension. Lumbar Strain. Additional Surgeries: no known surgeries. Medications: 2 Clinical Report - Physicians/Mid Levels [facility] Emergency Department [address] [place] [address] Phone #: ext- [phone] 12/01/2020 14:49 Patient: MARVIN LEAHY Sex: M : 1990 Age: 30y Eliquis Oral (Tablet 5 mg), 2x a day. Acetaminophen Oral (Tablet Chewable 325 mg) 2 tablets, 2x a day. Divalproex Sodium Oral (Tablet Delayed Release 250 mg), 2x a day. Escitalopram Oxalate Oral (Tablet 10 mg), 2x a day. Ivermectin Oral (Tablet 3 mg) 3 tabs, every 6 months. Lidocaine External. Memetasone furoate 15mg , 4x a day. Methocarbamol Oral (Tablet 500 mg), 2x a day. risperiDONE Oral (Tablet Disintegrating 1 mg), 2x a day. traZODone HCl Oral (Tablet 50 mg), daily. Trolamine Salicylate External. Xolair Subcutaneous (Solution Reconstituted 150 mg) 300mg, 3x a week. Allergies: Seafood.SOCIAL HISTORY Never smoker. Occasional alcohol use. No drug use.ADDITIONAL NOTES The nursing notes have been reviewed.PHYSICAL EXAM Vital Signs: 12/01/2020 14:53 BP: 126/90. MAP: 102. HR: 95. RR: 20. O2 saturation: 100%. Temp: 98.2 F. Pain level now: 08/18. Have been reviewed. Oxygen saturation normal. Appearance: Alert. No acute distress. Eyes: Eyelids appear normal to inspection. Conjunctivae and sclerae appear normal to inspection. Corneas appear normal to inspection. Pupils equal, round and reactive to light and light. Accommodation normal. Periorbital areas appear normal to inspection. Anterior chambers clear. ENT: Normal ENT inspection. Airway intact. TM's normal. Ears normal. Nose normal. Nares normal. Nasal mucosal inflammation present (Inferior turbinates enlarged b/l). Pharynx normal. Moist mucous membranes. Uvula midline. Voice normal. Neck: Normal inspection. Neck supple. Respiratory: Chest normal on inspection. No respiratory distress. Unlabored respirations. Lungs clear. Good chest movement. Breath sounds normal and equal. Chest nontender. Abdomen: Normal inspection. Soft and nontender. Bowel sounds normal. Back: Normal inspection. Mild muscle spasm in the right mid and lower lumbar spine region. No vertebral point tenderness. Skin: Skin warm and dry. Extremities: Extremities exhibit normal ROM. No lower extremity edema. No calf tenderness. No lower extremity edema. Neuro: Awake. Alert. Oriented X 3. Mood/affect normal. Speech normal. Cranial nerves II through XII intact and normal (as tested). No cerebellar findings. No abnormal finger-nose test. No motor deficit. Moves all extremities equally. No sensory deficit. Reflexes normal. Reflex exam: right triceps 2+, left triceps 2+, right biceps 2+, left biceps 2+, right brachioradialis 2+ and left brachioradialis 2+. 3 Clinical Report - Physicians/[facility] Emergency Department [address] [place] [address] Phone #: ext- [phone] 12/01/2020 14:49 Patient: MARVIN LEAHY Sex: M : 1990 Age: 30y Psych: Cognition normal. Thought process and content normal. Insight and judgement normal.LABS, X-RAYS, AND EKG EKG: Normal sinus rhythm. Rate: 74. NSR; Nonspecific T wave abnormality; Abnormal ECG. Discussed and reviewed with/by attending. Chest X-ray: (PORTABLE Jeronimo middleton Andrew - 12/01/2020 5:33:02 PM Limited study does not demonstrate significant acute pulmonary disease). The X-rays were interpreted by the radiologist. CT Head: (Jeronimo middleton Andrew - 12/01/2020 6:05:24 PM No evidence of acute intracranial pathology). The study was interpreted by the radiologist. Lower Extremity Sonography: Jeronimo middleton Andrew - 12/01/2020 6:14:03 PM No evidence of DVT. Th e study was interpreted by the radiologist. Laboratory Tests: D-Dimer: (DERRICK: 12/01/2020 17:01) ( MsgRcvd 12/01/2020 18:17) Final results Test Result Flag Units (Reference) D-DIMER QUANT 0.34 ug/mL (0.27 - 0.50) CBC w Diff: (DERRICK: 12/01/2020 17:01) ( MsgRcvd 12/01/2020 17:37) Final results Test Result Flag Units (Reference) CBC W/AUTOMATED DIFF COMPLETE BLOOD COUNT WBC 7.4 10/uL (4.2 - 11.0) RBC 4.53 10/uL (4.50 - 6.30) HEMOGLOBIN 13.5 L g/dL (14.0 - 16.0) HEMATOCRIT 39.5 L % (41.0 - 51.0) MCV 87.2 fL (80.0 - 94.0) MCH 29.8 pg (27.0 - 34.0) MCHC 34.2 g/dL (31.0 - 36.0) RDW 12.3 % (11.5 - 14.8) PLATELETS 193 10/uL (150 - 450) MPV 10.5 H fL (7.4 - 10.4) NEUT 51.6 % (37.0 - 80.0) LYMPH 39.6 % (25.0 - 40.0) MONO 6.9 % (3.0 - 8.0) EOS 1.2 % (0.0 - 7.0) BASO 0.4 % (0.0 - 2.0) %IG 0.3 H % (0.0 - 0.0) %NRBC 0.0 % (0.0 - 0.0) #NEUT 3.81 10/uL (2.00 - 6.90) #LYMPH 2.93 10/uL (0.60 - 3.40) #MONO 0.51 10/uL (0.00 - 0.90) #EOS 0.09 10/uL (0.00 - 0.70) #BASO 0.03 10/uL (0.00 - 0.20) #IG 0.02 10/uL (0.00 - 0.10) #NRBC 0.00 10/uL (0.00 - 0.00) MANUAL DIFF NOT INDICATED RBC MORPH NOT INDICATED CMP: (EDRRICK: 12/01/2020 17:01) ( MsgRcvd 12/01/2020 17:58) Final results Test Result Flag Units (Reference) 4 Clinical Report - Physicians/Mid Levels [facility] Emergency Department [address] [place] [address] Phone #: ext- [phone] 12/01/2020 14:49 Patient: MARVIN LEAHY Sex: M : 1990 Age: 30y COMPREHENSIVE METABOLIC PANEL COMPREHENSIVE METABOLIC PANEL SODIUM 140 mEq/L (134 - 153) POTASSIUM 3.8 mEq/L (3.6 - 5.0) CHLORIDE 104 mEq/L (98 - 107) CO2 28 MEQ/L (22 - 30) GLU COSE 89 MG/DL (70 - 99) BUN 12 MG/DL (7 - 21) CREATININE 0.8 MG/DL (0.7 - 1.5) BUN/CREAT 15 (8 - 27) TOTAL PROTEIN 7.0 G/DL (6.3 - 8.2) ALBUMIN 4.6 G/DL (3.9 - 5.0) GLOBULIN 2.4 GM/DL (2.4 - 3.2) A/G RATIO 1.9 (0.8 - 2.0) CALCIUM 9.4 MG/DL (8.4 - 10.2) TOTAL BILI <0.7 MG/DL (0.2 - 1.3) ALKALINE PHOS 64 U/L (38 - 126) SGOT/AST 28 U/L (5 - 40) SGPT/ALT 23 U/L (7 - 56) ANION GAP 8.0 mmol/L (8.0 - 16.0) AGE 30 yrs NON-AA GFR >60 mL/min AFR AMER GFR >60 mL/min Male GFR Interprentation 20-49 yrs >60 mL/min Ighyum74-88 yrs >56 mL/min Normal 60-69 yrs >49 mL/min Normal 70-79yrs>42 mL/min Normal 80 and above >35 mL/min Normal Female GFRInterpretation 20-39 yrs >60 mL/min Normal 40-49 yrs >58 mL/minNormal 50-59 yrs >51 mL/min Normal 60-69 yrs >45 mL/min Sllsud44-72 yrs >39 mL/min Normal 80 and above >32 mL/min NormalLipase: (DERRICK: 12/01/2020 17:01) ( [facility] 12/01/2020 17:58) Final results Test Result Flag Units (Reference) LIPASE 33 U/L (13 - 60)PT/PTT: (DERRICK: 12/01/2020 17:01) ( MsgRcvd 12/01/2020 17:42) Final results Test Result Flag Units (Reference) PROTIME 14.0 SECONDS (11.0 - 15.5) INR 1.03 (0.93 - 1.23) PTT 33.1 SECONDS (24.8 - 36.7) \\BLDo\\INR INTERPRETATION\\BLDx\\ Therapeutic range for Coumadin andrelated oral anticoagulants. -International Normalized Ratio (INR): 2.0 - 3.0 for VenousThrombosis, Pulmonary Embolus, Tissue heart valves, Acute AR Atrial Fibrillation, Valvular heart diseaseand recurrent Systemic Embolism. -International Normalized Ratio (INR): 2.5 - 3.5 forMechanical Prosthetic valve.Troponin-T: (DERRICK: 12/01/2020 17:01) ( MsgRcvd 12/01/2020 17:45) Final results Test Result Flag Units (Reference) TROPONIN T <0.01 NG/ML (0.00 - 0.10) TROPONIN T0.1 ng/ml Recommended as the clinical threshold value Chata T.TSH: (DERRICK: 12/01/2020 17:01) ( SdgRcvd 12/01/2020 17:58) Final results Test Result Flag Units (Reference) TSH 1.15 uIU/mL (0.47 - 5.01) 5 Clinical Report - Physicians/Mid Levels [facility] Emergency Department [address] [place] [address] Phone #: ext- [phone] 12/01/2020 14:49 Patient: MARVIN LEAHY Sex: M : 1990 Age: 30y Urinalysis: (DERRICK: 12/01/2020 17:40) ( SdgRcvd 12/01/2020 17:58) Final results Test Result Flag Units (Reference) URINALYSIS URINALYSIS SOURCE R COLOR yellow (NORMAL: Yello CLARITY clear (NORMAL: Clear SPEC GRAVITY 1.015 (1.001 - 1.030 pH 6.5 (5 - 9) GLUCOSE NORM (NORMAL: Negat BILIRUBIN NEG (NORMAL: Negat KETONE NEG (NORMAL: Negat PROTEIN NEG (NORMAL: Negat NITRITE NEG (NORMAL: Negat BLOOD 250 A (NORMAL: Negat LEUK EST NEG (NORMAL: Negat UROBILINOGEN NOR (less than 1.0 MICROSCOPIC See Below WBC 0 - 1 (NORMAL: NONE RBC 10 - 15 A (NORMAL: NONE EPITHELIAL FEW (NORMAL: NONE Magnesium: (DERRICK: 12/01/2020 17:01) ( [facility] 12/01/2020 17:58) Final results Test Result Flag Units (Reference) MAGNESIUM 2.0 MG/DL (1.7 - 2.2).PROGRESS AND PROCEDURES Course of Care: VSS, NAD, AOx3, interacting well and appropriately, no use of accessory muscle, able to speak full sentences, stable, non-toxic looking. Enter room and pt lying peacefully in bed in NAD. Patient stable. Denies any new issues, concerns, or complaints. PE demos NV intact b/l UE and LE. No neuro deficits. Pt sts he was coming to the ER due to LLE pain and LBP, but chose to stop at [employer] for food before coming to the ER. There had a syncopal episode/collapse. Pt has a known DVT since July that he has seen hematology for and is on meds (Eliquis). Pt complaining of chronic LBP; pt has been seen in this ER multiple times for this with imaging and seen by PCP for this as well. Pt seen & lt;14days ago and had MRI of this as well. ? known DVT and sycopal episode. Will order labs and imiagig for corrina dennis. Pending results. ///////////////////////////////////////////////////// MRI IMPRESSION: 6 Clinical Report - Physicians/Mid Levels [facility] Emergency Department [address] [place] [address] Phone #: ext- [phone] 12/01/2020 14:49 Patient: MARVIN LEAHY Sex: M : 1990 Age: 30yNo evidence of significant disc pathology noted on the current study. Specifically, no significantspinal canal or neural edilma inal stenosis.CT L-Spine [id number] OF THE LUMBAR SPINE WITHOUT CONTRAST, 09/17/20: FINDINGS: Examination reveals no evidence of an acute fracture or subluxation. There is mild to moderate disc bulges identified at L3-4, L4-5, and L5-S1, most significant at the L4-5 level. No evidence of central canal stenosis is identified. No distinct abnormality is identified in the paralumbar soft tissues. IMPRESSION: Mild to moderate disc bulges at L3-4, L4-5, and L5-S1, most significant at L4-5. No central canal stenosis is identified with no acute findings. No discrete soft tissue lesions are iden tified.///////////////////////////////////////////////////////////////////////// //16:51 12/01/20. At this point, pt still has no IV access after multiple tries. Pt is stable, but need access forfurther eval. Pending restuls.17:49 12/01/20. Nurse finally able to get IV access, but 22g. ? CTA as pt has a known DVT and nowsyncopal episode, but VSS and IV access is too small. Extremely difficult IV stick; ? dehydration.Discuss wiht attending. Recommends to obtian a D-Dimer for eval and discussion. Will do so; pendingresutls.Witness pt ambulate from restroom to bed in NAD; slight limping gait, but pt is alert and oriented.Reviewed results.Contact hospitalist to discuss possible admission for observation due to syncope. Disucss and reviewlabs and rads. Agrees wiht admission. Will place ordeers. Sts thta pt can eat his food.Enter room and patient lying peacefully in bed in NAD. Patient stable. Denies any new issues, concerns,or complaints. Pt agrees.Critical care performed (90 minutes). Time includes: direct patient care, patient reassessment, coordinationof patient care, review of patient's medical records, medical consultation, family consultation regardingtreatment decisions and documentation of patient care- see progress notes.Disposition: Admitted to the Acute Inpatient Unit, Monitored. UTI (catheter associated) was not presentprior to admission. Pressure ulcer was not present prior to admission. Vascular infection (catheterassociated) was not present prior to admission. 7 Clinical Report - [facility] Emergency Department [address] [place] [address] Phone #: ext- [phone] 12/01/2020 14:49 Patient: MARVIN LEAHY Sex: M : 1990 Age: 30yCLINICAL IMPRESSION Syncope of unknown cause. Microscopic hematuria.(Electronically signed by Corey Mace P.A.-C 12/01/2020 22:01) Name Value Range Interpretation Code Description Data Marifer rce(s) Supporting Document(s) ID Date Data Source [id number] 12/01/2020 02:50:00 PM EST [facility] Addenda for MARVIN LEAHY VisitID: [id number] Date: 18:54Faxed Overview to [facility]; Faxed Medication reconciliation request to [employer].(Electronically signed by Nestor nAn - 12/01/2020 18:54) Name Value Range Interpretation Code Description Data Marifer rce(s) Supporting Document(s) ID Date Data Source [id number] 12/01/2020 10:30:00 PM EST [facility] Name Value Range Interpretation Code Description Data Marifer rce(s) Supporting Document(s) TROPONIN T <0.01 NG/ML 0.00 - 0.10 [facility] TROPONIN T0.1 ng/ml Recommended as the c linical threshold value forTroponin T. ID Date Data Source [id number] 12/01/2020 06:10:00 PM EST [facility] Name Value Range Interpretation Code Description Data [facility] rce(s) Supporting Document(s) COVID19 Case rprt NOT DETECTED [facility] This lab was ordered by [facility] and reported by [facility]. ID Date Data Source [id number] 12/01/2020 06:54:00 PM [facility] NOT DETECTEDNOT DETECTED{ PROC EDURAL CONTROL VALID KIT LOT # _[id number] 12/01/20.GEOVANNI. KIT EXP DATE _[id number] 12/01/20.GEOVANNI. NORMAL RANGE IS NOT DETECTEDNEGATIVE RESULTS SHOULD BE TREATED PRESUMPTIVE AND, IF INCONSISTENT WITHCLINICAL SIGNS AND SYMPTOMS OR NECESSARY FOR PATIENT MANAGEMENT, SHOULD BETESTED WITH DIFFERENT AUTHORIZED OR CLEARED MOLECULAR TESTS. NEGATIVE RESULTSDO NOT PRECLUDE SARS-CoV-2 INFECTION AND SHOULD NOT BE USED THE SOLE BASISFOR PATIENT MANAGEMENT DECISIONS. Name Value Range Interpretation Code Description Data Marifer rce(s) Supporting Document(s) ID Date Data Source [id number] 12/01/2020 05:58:00 PM [facility] Name Value Range Interpretation Code Description Data Marifer rce(s) Supporting Document(s) [facility] COLOR yellow NORMAL: Yellow [facility] CLARITY clear NORMAL: Clear [facility] Specific gravity of Urine by Test strip 1.015 1.001 - 1.030 [facility] pH 6.5 5 - 9 [facility] Glucose [Mass/volume] in Urine by Test strip NORM NORMAL: Negat [facility] Bilirubin.total [Presence] in Urine by Test strip NEG NORMAL: Negative [facility] Ketones [Presence] in Urine by Test strip NEG NORMAL: Negative [facility] Protein [Mass/volume] in Urine by Test strip [facility]G [facility] Nitrite [Presence] in Urine by Test strip NEG NORMAL: Negative [facility] BLOOD 250 NORMAL: Negative [facility] Leukocyte esterase [Presence] in Urine by Test strip NEG DELANO L: Negative [facility] Urobilinogen [Mass/volume] in Urine by Test strip NOR less fidelia n 1.0 mg/dL [facility] MICROSCOPIC See Below [facility] WBC 0 - 1 NORMAL: NONE SEEN [facility] Erythrocytes [#/volume] in Urine by Test strip 10 - 15 NORMAL: NON E SEEN [facility] EPITHELIAL FEW NORMAL: NONE SEEN [facility] ID Date Data Source [id number] 12/01/2020 07:23:00 PM EST [facility] Name Value Range Interpretation Code Description Data Marifer rce(s) Supporting Document(s) CVE PANEL [facility] LIPID PANEL Cholesterol [Mass/volume] in Serum or Plasma 143 MG/DL 131 - 200 [facility] Deprecated Triglyceride [Mass/volume] in Serum or Plasma 76 MG/DL 3 5 - 160 [facility] HDL 54 MG/DL 29 - 86 [facility] Cholesterol in LDL [Mass/volume] in Serum or Plasma by Direc t assay 82 mg/dL 65 - 175 [facility] Cholesterol.total/Cholesterol in HDL [Mass Ratio] in Serum o r Plasma 2.6 3.4 - 4.9 L [facility] LDL/HDL 1.52 1.00 - 3.55 [facility] CVE RISK CHOL/HDL LDL/HDLMEN: 1/2 AVERAGE 3.43 1.00 AVERAGE 4.97 3.55 2X AVERAGE 9.55 6.25 3X AVERAGE 23.99 7.99WOMEN: 1/2 AVERAGE 3.27 1.47 AVERAGE 4.44 3.22 2X AVERAGE 7.05 5.03 3X AVERAGE 11.04 6.14 ID Date Data Source [id number] 12/01/2020 06:17:00 PM [facility] Name Value Range Interpretation Code Description Data Marifer rce(s) Supporting Document(s) Fibrin D-dimer FEU [Mass/volume] in Platelet poor plasma 0.34 ug /mL 0.27 - 0.50 [facility] ID Date Data Source [id number] 12/01/2020 05:58:00 PM [facility] Name Value Range Interpretation Code Description Data Marifer rce(s) Supporting Document(s) Magnesium [Mass/volume] in Serum or Plasma 2.0 MG/DL 1.7 - 2.2 [facility] ID Date Data Source [id number] 12/01/2020 05:58:00 PM [facility] Value Range Interpretation Code Description Data Marifer rce(s) Supporting Document(s) Thyrotropin [Units/volume] in Serum or Plasma by Detec tion limit <= 0.05 mIU/L 1.15 uIU/mL 0.47 - 5.01 [facility] ID Date Data Source [id number] 12/01/2020 05:58:00 PM [facility] Name Value Range Interpretation Code Description Data Marifer rce(s) Supporting Document(s) Lipase [Enzymatic activity/volume] in Serum or Plasma 33 U/L 13 - 60 [facility] ID Date Data Source [id number] 12/01/2020 05:58:00 PM EST [facility] Name Value Range Interpretation Code Description Data Marifer rce(s) Supporting Document(s) COMPREHENSIVE METABOLIC PANEL [facility] COMPREHENSIVE METABOLIC PANEL Sodium [Moles/volume] in Serum or Plasma 140 mEq/L 134 - 153 [facility] Potassium [Moles/volume] in Serum or Plasma 3.8 mEq/L 3.6 - 5.0 [facility] Chloride [Moles/volume] in Serum or Plasma 104 mEq/L 98 - 107 [facility] Carbon dioxide, total [Moles/volume] in Serum or Plasma 28 MEQ/L 22 - 30 [facility] Glucose [Mass/volume] in Serum or Plasma 89 MG/DL 70 - 99 [facility] BUN 12 MG/DL 7 - 21 [facility] Creatinine [Mass/volume] in Serum or Plasma 0.8 MG/DL 0.7 - 1.5 [facility] BUN/CREAT 15 8 - 27 [facility] Protein [Mass/volume] in Serum or Plasma 7.0 G/DL 6.3 - 8.2 [facility] Albumin [Mass/volume] in Serum or Plasma 4.6 G/DL 3.9 - 5.0 [facility] Globulin [Mass/volume] in Serum by calculation 2.4 GM/DL 2.4 - 3.2 [facility] A/G RATIO 1.9 0.8 - 2.0 [facility] Calcium [Mass/volume] in Serum or Plasma 9.4 MG/DL 8.4 - 10.2 [facility] Bilirubin.total [Mass/volume] in Serum or Plasma <0.7 MG/DL 0.2 - 1.3 [facility] Alkaline phosphatase [Enzymatic activity/volume] in Serum or Plasma 64 U/L 38 - 126 [facility] Aspartate aminotransferase [Enzymatic activity/volume] in Serum or Plasma 28 U/L 5 - 40 [facility] Alanine aminotransferase [Enzymatic activity/volume] in Seru m or Plasma 23 U/L 7 - 56 [facility] Anion gap 3 in Serum or Plasma 8.0 mmol/L 8.0 - 16.0 [facility] AGE 30 yrs [facility] NON-AA GFR >60 mL/min [facility] AFR AMER GFR >60 mL/min [facility] Male GFR In terprentation 20-49 yrs >60 mL/min Normal 50-59 yrs >56 mL/min Normal 60-69 yrs >49 mL/min Normal 70-79yrs >42 mL/min Normal 80 and above >35 mL/min Normal Female GFR Interpretation 20-39 yrs >60 mL/min Normal 40-49 yrs >58 mL/min Normal 50-59 yrs >51 mL/min Normal 60-69 yrs >45 mL/min Normal 70-79 yrs >39 mL/min Normal 80 and above >32 mL/min Normal ID Date Data Source [id number] 12/01/2020 05:45:00 PM [facility] Name Value Range Interpretation Code Description Data Marifer [facility](s) Supporting Document(s) TROPONIN T <0.01 NG/ML 0.00 - 0.10 [facility] TROPONIN T0.1 ng/ml Recommended as the c linical threshold value forTroponin T. ID Date Data Source [id number] 12/01/2020 05:42:00 PM [facility] Name Value Range Interpretation Code Description Data Marifer e(s) Supporting Document(s) Prothrombin time (PT) 14.0 SECONDS 11.0 - 15.5 [facility] INR in Platelet poor plasma by Coagulation assay 1.03 0.93 - 1. 23 [facility] aPTT in Blood by Coagulation assay 33.1 SECONDS 24.8 - 36.7 [facility] \\BLDo\\INR INTERPRETATION\\BLDx\\ Therapeutic range for Coumadin and related oral anticoagulants. - International Normalized Ratio (INR): 2.0 - 3.0 for Venous Thrombosis, Pulmonary Embolus, Tissue heart valves, Acute AR Atrial Fibrillation, Valvular heart disease and recurrent Systemic Embolism. - International Normalized Ratio (INR): 2.5 - 3.5 for Mechanical Prosthetic valve. ID Date Data Source [id number] 12/01/2020 05:37:00 PM EST [facility] Name Value Range Interpretation Code Description Data Marifer rce(s) Supporting Document(s) CBC W/AUTOMATED DIFF [facility] COMPLETE BLOOD COUNT Leukocytes [#/volume] in Blood by Automated count 7.4 10^3/uL 4.2 - 1 1.0 [facility] Erythrocytes [#/volume] in Blood by Automated count 4.53 10^6/uL 4. 50 - 6.30 [facility] Hemoglobin [Mass/volume] in Blood 13.5 g/dL 14.0 - 16.0 L [facility] Hematocrit [Volume Fraction] of Blood by Automated count 39.5 % 4 1.0 - 51.0 L [facility] Erythrocyte mean corpuscular volume [Entitic volume] by Auto mated count 87.2 fL 80.0 - 94.0 [facility] Erythrocyte mean corpuscular hemoglobin [Entitic mass] by Automated count 29.8 pg 27.0 - 34.0 [facility] Erythrocyte mean corpuscular hemoglobin concentration [Mass/volume] by Automated count 34.2 g/dL 31.0 - 36.0 [facility] Erythrocyte distribution width [Ratio] by Automated count 12.3 % 11.5 - 14.8 [facility] Platelets [#/volume] in Blood by Automated count 193 10^3/uL 150 - 45 0 [facility] Platelet mean volume [Entitic volume] in Blood by Automated count 10.5 fL 7.4 - 10.4 H [facility] Neutrophils/100 leukocytes in Blood by Automated count 51.6 % 37. 0 - 80.0 [facility] Lymphocytes/100 leukocytes in Blood by Manual count 39.6 % 25.0 - 40.0 [facility] Monocytes/100 leukocytes in Blood by Automated count 6.9 % 3.0 - 8.0 [facility] Eosinophils/100 leukocytes in Blood by Automated count 1.2 % 0.0 - 7.0 [facility] Basophils/100 leukocytes in Blood by Automated count 0.4 % 0.0 - 2.0 [facility] %IG 0.3 % 0.0 - 0.0 H [facility] %NRBC 0.0 % 0.0 - 0.0 [facility] Neutrophils [#/volume] in Blood by Automated count 3.81 10^3/uL 2.00 - 6.90 [facility] Lymphocytes [#/volume] in Blood by Automated count 2.93 10^3/uL 0.60 - 3.40 [facility] Monocytes [#/volume] in Blood by Automated count 0.51 10^3/uL 0.00 - 0.90 [facility] Eosinophils [#/volume] in Blood by Automated count 0.09 10^3/uL 0.00 - 0.70 [facility] Basophils [#/volume] in Blood by Automated count 0.03 10^3/uL 0.00 - 0.20 [facility] #IG 0.02 10^3/uL 0.00 - 0.10 [facility] #NRBC 0.00 10^3/uL 0.00 - 0.00 [facility] MANUAL DIFF NOT INDICATED [facility] RBC MORPH NOT INDICATED [facility] ID Date Data Source [id number] 11/22/2020 11:51:27 AM EST [facility] Name Value Range Interpretation Code Description Data Marifer rce(s) Supporting Document(s) Progress Note [facility] [id number] lbm [file] [id number]= ID Date Data Source [id number] 11/20/2020 08:56:00 AM EST [facility] [address] [place] [address] PHONE: [phone] FAX: [phone] Name .................. : TOSIN WONG Cristino Acct Number.................. : [id number] ROOM. ................. : TR-08 Number ................... : [id number] Stay type ............. : E/R Discharge Date......... ... : 11/19/20 Admit Date ......... : 11/19/20 Admit Phys .................... : CHERYL OLVERA Date of ....... : 1990 Family Phys ................... : NON STAFF Phone .................. : [phone] Age ................................ : 30 Film# .................. .:[id number] Sex ................................. : M Unsigned transcriptions are preliminary reports and do not represent a medical or legal document MRI LUMBAR SPINE W/O CONTRAST [id number] COMPLETE:11/19/20 15:25 INGRID 1972 Reason(s): Lower Back Pain MRI OF THE LUMBAR SPINE WITHOUT CONTRAST: CLINICAL HISTORY: Lower back pain x1 year. TECHNIQUE: Multisequence, multiplanar MRI of the lumbar spine is obtained without the use of intravenous contrast. COMPARISON: None available. FINDINGS: Motion artifact mildly limits the examination mostly on the sagittal T1-weighted sequences. The conus medullaris terminates at the T12- L1 vertebral body level. There is straightening of the normal lordotic curvature likely on the basis of positioning and/or spasm. There is no evidence of significant disc pathology. IMPRESSION: No evidence of significant disc pathology noted on the current study. Specifically, no significant spinal canal or neural foraminal stenosis. Electronically Reviewed and Signed By Marlon Decker MD , 11/20/20 08:56, [facility] Transcribe Initials: GAYATHRI , Transcribe Date: 11/20/20 01:55, Dictation Date: Copy for: GRAYSON GONZALEZ via fax Copy for: EMERGENCY DEPT via [facility] Copy for: 710 MED REC DISCHARGED Page 1 of 1 Name Value Range Interpretation Code Description Data Marifer rce(s) Supporting Document(s) ID Date Data Source [id number] 11/19/2020 02:16:00 PM EST [facility] 1 OrderSheet [facility] Emergency Department [address] [place] [address] Phone #: ext- [phone] 11/19/2020 13:54 Patient: MARVIN LEAHY Sex: M : 1990 Age: 30yWEIGHT:92.9 kg (S) HEIGHT:72 inches (S) BMI:27.8ALLERGIES: SeafoodCHIEF COMPLAINT: back pain, chronic back painDIAGNOSIS: BackacheLAB ORDERSOrder Description Priority Entered Acknowledged InitialedUrinalysis (Clean STAT 14:28 11/19/2020 14:28 Ervin Nagy) Jennifer Nagy R.N. R.NYang; Verbal order per; Larry Moreno PADIAGNOSTIC STUDY ORDERSOrder Description Priority Entered Acknowledged InitialedMRI Spine Lumbar STAT 14:36 11/19/2020 14:41 BurnhamW/O Cont Larry Moreno follow up manager, Esvin ER(Oxygen?(No)) (No) PA; Tech1 Reason for Study: Lower Back PainMEDICATION/IV/DRIP/FLUID ORDERSOrder Description Priority Entered Acknowledged InitialedToradol IM 60 mg 14:32 11/19/2020 15:25 Larry Nagy R.N. PA;Gabapentin PO 100 14:32 11/19/2020 Ack'd: 15:25 15:28 mg Larry Nagy Jennifer Jennifer R.N. PA; R.N.predniSONE PO 60 14:32 11/19/2020 15:25 mg Larry Nagy R.N. PA;GENERAL ORDERSOrder Description Priority Entered Acknowledged Initialed[Electronically signed by Troy Ann RN (15:51 11/19/2020)][Electronically signed by Larry Moreno (21:18 11/19/2020)] 2 OrderSheet [facility] Emergency Department [address] [place] [address] Phone #: ext- [phone] 11/19/2020 13:54 Patient: MARVIN LEAHY Sex: M : 1990 Age: 30y[Electronically locked by Troy Ann RN (15:51 11/19/2020)] Name Value Range Interpretation Code Description Data Marifer rce(s) Supporting Document(s) ID Date Data Source [id number] 11/19/2020 02:16:00 PM EST [facility] 1 Medication Reconciliation Report [facility] Emergency Department [address] [place] [address] Phone #: ext- [phone] 11/19/2020 13:54 Patient: MARVIN LEAHY Sex: M : 1990 Age: 30yWeight: 92.9 kgHeight/Length: 72 in.BMI: 27.8ALLERGIES: SeafoodThe patient's Home Medications are listed below:CONTINUE TAKING THE FOLLOWING MEDICATIONS: Acetaminophen Oral (325 mg) 2 tablets, 2x a day Apixaban Oral (5 mg), 2x a day Divalproex Sodium Oral (250 mg), 2x a day Escitalopram Oxalate Oral (10 mg), 2x a day Ivermectin Oral (3 mg) 3 tabs, every 6 months Lidocaine External Memetasone furoate 15mg , 4x a day Methocarbamol Oral (500 mg), 2x a day risperiDONE Oral (1 mg), 2x a day traZODone HCl Oral (50 mg), daily Trolamine Salicylate External Xolair Subcutaneous (150 mg) 300mg, 3x a weekThe source(s) of the original Home Medication information:Not obtained.The following Medications were given to the patient in the Emergency Department: 2 Medication Reconciliation Report [facility] Emergency Department [address] [place] [address] Phone #: ext- [phone] 11/19/2020 13:54 Patient: MARVIN LEAHY Sex: M : 1990 Age: 30yPrednisone [PO] PO 60 mg, administered: 15:25 11/19/2020Toradol [IM] IM 60 mg, administered: 15:25 11/19/2020Gabapentin [PO] PO 100 mg, administered: 15:28 11/19/2020The following Medications were prescribed to the patient:Medrol (Julian) 4 mg tablets in a dose pack Take 1 tablet as directed for 6 days -- Dispense 1 pack.Refills: 0. Substitution permitted.Pharmacy - [address] ; [place] [address]. FaxNumber: .gabapentin 100 mg capsule Take 1 capsule three times a day for 30 days -- Dispense 90 capsule.Refills: 0. Substitution permitted.Pharmacy - [facility] [id number] [place] [address] ; [place] [address]. .methocarbamol 500 mg tablet Take 1 tablet three times a day for 10 days -- Dispense 30 tablet. Refills:0. Substitution permitted.Pharmacy - [facility] [id number] ; [place] [address]. . -- PERLA Cisse Name Value Range Interpretation Code Description Data Marifer rce(s) Supporting Document(s) ID Date Data Source [id number] 11/19/2020 02:16:00 PM EST [facility] 1 Medication Administration Record [facility] Emergency Department [address] [place] [address] Phone #: [phone] ext- [phone] 11/19/2020 13:54 Patient: MARVIN LEAHY Sex: M : 1990 Age: 30yWeight: 92.9 kgHeight/Length: 72 inBMI: 27.8ALLERGIES: Seafood Date/Time Medication Administered Medication OrderedGiven TORADOL [IM] (KETOROLAC Toradol IM 60 mg15:25 11/19/2020 TROMET SMILEYINE)Jennifer Nagy R.N. Dose: 60 mg IMGiven GABAPENTIN [PO] Gabapentin PO 100 mg15:28 11/19/2020 Dose: 100 mg Capsules Jennifer Andrews R.N.Given PREDNISONE [PO] predniSONE PO 60 mg15:25 11/19/2020 Dose: 60 mg Tablets Jennifer Andrews R.N. 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 Lumbar radiculopathy present. No neurological deficit.INSTRUCTIONS No strenuous activity until released (see your BN PA for profile). Warnings: GENERAL WARNINGS: Return or contact your physician immediately if your condition worsens or changes unexpectedly, if not improving as expected, or if other problems arise. SPECIFICALLY, return if you develop weakness of the foot or leg and incontinence of feces (loss of bowel control) or urine (loss of bladder control). Your Current Medications: Your current home medications have been reviewed. CONTINUE TAKING THE FOLLOWING MEDICATIONS: Acetaminophen Oral : Tablet Chewable 325 mg, 2 tablets 2x a day. Apixaban Oral : Tablet 5 mg, 2x a day. Divalproex Sodium Oral : Tablet Delayed Release 250 mg, 2x a day. Escitalopram Oxalate Oral : Tablet 10 mg, 2x a day. Ivermectin Oral : Tablet 3 mg, 3 tabs every 6 months. Lidocaine External. Memetasone furoate* : 15mg 4x a day. Methocarbamol Oral : Tablet 500 mg, 2x a day. risperiDONE Oral : Tablet Disintegrating 1 mg, 2x a day. traZODone HCl Oral : Tablet 50 mg, daily. Trolamine Salicylate External. Xolair Subcutaneous : Solution Reconstituted 150 mg, 300mg 3x a week. Prescription Medications: Medrol (Julian) 4 mg tablets in a dose pack Take 1 tablet as directed for 6 days -- Dispense 1 pack. Refills: 0. Substitution permitted. Pharmacy - [address] ; [place] [address]. . gabapentin 100 mg capsule Take 1 capsule three times a day for 30 days -- Dispense 90 capsule. Refills: 0. Substitution permitted. [facility] [address] ; [place] [address]. . 2 General Instructions [facility] Emergency Department [address] [place] [address] Phone #: ext- [phone] 11/19/2020 13:54 Patient: MARVIN LEAHY Sex: M : 1990 Age: 30ymethocarbamol 500 mg tablet Take 1 tablet three times a day for 10 days -- Dispense 30 tablet. Refills:0. Substitution permitted.[facility] [id number] ; [place] [address]. .Follow-up:Follow up with your doctor tomorrow. Call for an appointment. Reason for referral: evaluation, treatmentand refer to pain management and physical therapy. Summary of care provided to patient.Understanding of the discharge instructions verbalized by patient. ADDITIONAL INFORMATIONBack Pain (Acute or Chronic) 3 [facility] Emergency Department [address] [place] [address] Phone #: ext- [phone] 11/19/2020 13:54 Patient: MARVIN LEAHY Sex: M : 1990 Age: 30yBack pain is one of the most common problems. The good news is that most people feel better in 1 to2 weeks, and most of the rest in 1 to 2 months. Most people can remain active.People who have pain describe it differently--not everyone is the same. The pain can be sharp, stabbing, shooting, aching, cramping or burning. Movement, standing, bending, lifting, sitting, or walking may worsen pain. It can be limited to one spot or area, or it can be more generalized. It can spread upwards, to the front, or go down your arms or legs (sciatica). It can cause muscle spasm.Most of the time, mechanical problems with the muscles or spine cause the pain. Mechanicalproblems are usually caused by an injury to the muscles or ligaments. Illness can cause back pain,but it's usually not caused by a serious illness. Mechanical problems include: Physical activity such as sports, exercise, work, or normal activity Overexertion, lifting, pushing, pulling incorrectly or too aggressively Sudden twisting, bending, or stretching from an accident, or accidental movement Poor posture Stretching or moving wrong, without noticing pain at the time Poor coordination, lack of regular exercise (check with your doctor about this) Spinal disc disease or arthritis StressPain can also be related to , or illness like appendicitis, bladder or kidney infections, pelvicinfections, and many other th ings.Acute back pain usually gets better in 1 to 2 weeks. Back pain related to disk disease, arthritis in thespinal joints, or narrowing of the spinal canal (spinal stenosis) can become chronic and last formonths or years.Unless you had a physical injury such as a car accident or fall, X-rays are usually not needed for thefirst assessment of back pain. If pain continues and does not respond to medical treatment, you mayneed X-rays and other tests.Home careTry this home care advice: 4 General Instructions [facility] Emergency Department [address] [place] [address] Phone #: ext- [phone] 11/19/2020 13:54 Patient: MARVIN LEAHY Sex: M : 1990 Age: 30y When in bed, try to find a position of comfort. A firm mattress is best. Try lying flat on your back with pillows under your knees. You can also try lying on your side with your knees bent up toward your chest and a pillow between your knees. At first, don't try to stretch out the sore spots. If there is a strain, it's not like the good soreness you get after exercising without an injury. In this case, stretching may make it worse. Don't sit for long periods, as in a long car ride or during other travel. This puts more stress on the lower back than standing or walking. During the first 24 to 72 hours after an acute injury or flare up of chronic back pain, apply an ice pack to the painful area for 20 minutes and then remove it for 20 minutes. Do this over a period of 60 to 90 minutes or several times a day. This will reduce swelling and pain. Wrap the ice pack in a thin towel or plastic to protect your skin. You can start with ice, then switch to heat. Heat (hot shower, hot bath, or heating pad) reduces pain and works well for muscle spasms. Heat can be applied to the painful area for 20 minutes then remove it for 20 minutes. Do this over a period of 60 to 90 minutes or several times a day. Don't sleep on a heating pad. It can lead to skin arias or tissue damage. You can alternate ice and heat therapy. Talk with your doctor about the best treatment for your back pain. Therapeutic massage can help relax the back muscles without stretching them. Be aware of safe lifting methods and don't lift anything without stretching first.MedicinesTalk to your doctor before using medicine, especially if you have other medical problems or are takingother medicines. You may use [id number] medicine as directed on the bottle to control pain, unless another pain medicine was prescribed. If you have chronic conditions like diabetes, liver or kidney disease, stomach ulcers, or gastrointestinal bleeding, or are taking blood thinners, talk to your doctor before taking any medicine. Be careful if you are given a prescription medicines, narcotics, or medicine for muscle spasms. They can cause drowsiness, affect your coordination, reflexes, and judgement. Don't drive or operate heavy machinery.Follow-up careFollow up with your healthcare provider, or as advised.If X-rays were taken, you will be told of any new findings that may affect your care 5 General Instructions [facility] Emergency Department [address] [place] [address] Phone #: ext- [phone] 11/19/2020 13:54 Patient: MARVIN LEAHY Sex: M : 1990 Age: 30yCall 911Call 911 if any of the following occur: Trouble breathing Confusion Very drowsy or trouble awakening Fainting or loss of consciousness Rapid or very slow heart rate Loss of bowel or bladder controlWhen to seek medical adviceCall your healthcare provider right away if any of these occur: Pain becomes worse or spreads to your legs Weakness or numbness in one or both legs Numbness in the groin or genital area [employer]. [address] [place] [address]. All rights reserved. This information is not intended as asubstitute for professional medical care. Always follow your healthcare professional's instructions. You have been given the following additional information: Back Pain (Acute or Chronic) No strenuous activity until released (see your BN PA for profile).(Electronically signed by PERLA Cisse 11/19/2020 21:18) Name Value Range Interpretation Code Description Data Marifer rce(s) Supporting Document(s) ID Date Data Source [id number] 11/19/2020 02:16:00 PM EST [facility] 1 Clinical Report - Nurses [facility] Emergency Department [address] [place] [address] Phone #: ext- [phone] 11/19/2020 13:54 Patient: MARVIN LEAHY Sex: M : 1990 Age: 30yTRIAGEArrived by private vehicle. Historian: patient. Unaccompanied. ( complains of lower back pain, painworse since last night).Acuity: LEVEL 4.Chief Complaint: BACK PAIN.Alert.Onset. (1 year). The patient has had trouble walking. No history of recent trauma.Pre-hospital notification of patient arrival was not received.Treatment MINE EXPERT:(took something but does not know name might be muscle relaxer).SEPSIS SCREEN: SIRS SCREEN NEGATIVE. SEPSIS SCREEN NEGATIVE. No suspected or confirmedsigns of infection present. --14:08 11/19/20 Michelle Rowland R.N.14:11/19/20. BP: 115/68. MAP: 83. HR: 58. RR: 18. O2 saturation: 99%. Temp: 97.4 F. Pain level now:08/18. --14:10 11/19/20 Michelle Rowland R.N.Weight: 92.9 kg stated. Height/Length: 72 inches Per Patient. BMI: 27.8. --13:56 11/19/20 Michelle Rowland R.N.MedicationsTrolamine Salicylate External. --14:03 11/19/20 Michelle Rowland R.N. Xolair Subcutaneous (Solution Reconstituted 150 mg) 300mg, 3x a week. --14:03 11/19/20 Michelle Rowland R.N. risperiDONE Oral (Tablet Disintegrating 1 mg), 2x a day. --14:03 11/19/20 Michelle Rowland R.N. Ivermectin Oral (Tablet 3 mg) 3 tabs, every 6 months. --14:05 11/19/20 Michelle Rowland R.N. Apixaban Oral (Tablet 5 mg), 2x a day. --14:05 11/19/20 Michelle Rowland R.N. traZODone HCl Oral (Tablet 50 mg), daily. --14:05 11/19/20 Michelle Rowland R.N. Acetaminophen Oral (Tablet Chewable 325 mg) 2 tablets, 2x a day. --14:06 11/19/20 Michelle Rowland R.N. Escitalopram Oxalate Oral (Tablet 10 mg), 2x a day. --14:06 11/19/20 Michelle Rowland R.N. Methocarbamol Oral (Tablet 500 mg), 2x a day. --14:06 11/19/20 Michelle Rowland R.N. Divalproex Sodium Oral (Tablet Delayed Release 250 mg), 2x a day. --14:07 11/19/20 Michelle Rowland R.N. Lidocaine External. --14:07 11/19/20 Michelle Rowland R.N. Memetasone furoate 15mg , 4x a day. --14:07 11/19/20 Michelle Rowland R.N.AllergiesSeafood. --14:02 11/19/20 Michelle Rowland R.N. 2 Clinical Report - Nurses [facility] Emergency Department [address] [place] [address] Phone #: [phone] ygi- [phone] 11/19/2020 13:54 Patient: MARVIN LEAHY Sex: M : 1990 Age: 30yPROBLEMS:Back Pain. --14:08 11/19/20 Michelle Rowland R.N.Hematuria. --15:32 11/19/20 ORLY Cisse - Deep Venous Thrombosis. --15:33 11/19/20 Beatriz Cisse following entry was modified by PERLA Cisse, 15:32 11/19/20Hematuria. --14:09 11/19/20 Michelle Rowland R.N.The following entry was modified by PERLA Cisse, 15:32 11/19/20DVT - Deep Venous Thrombosis. --14:09 11/19/20 Michelle Rowland R.N.The following entry was modified by PERLA Cisse, 15:33 11/19/20DVT - Deep Venous Thrombosis. --14:09 11/19/20 PA. TannaADDITIONAL SURGERIES:no known surgeries.HistoryPAST MEDICAL HX: Immunizations: up-to-date.SOCIAL HX: The patient was offered HIV testing but declined and hepatitis C testing but declined. Thepatient has not traveled outs [place] the [place]Infectious disease exposure: No infectious disease exposure. Patient is not a known carrier of tuberculosis,hepatitis, HIV, MRSA or VRE. Patient is not a known carrier of CRE.SELF HARM ASSESSMENT: Self harm assessment was performed. The patient answered "no" to thequestion(s) "Have you recently felt down, depressed, or hopeless?", "Do you have thoughts of harming orkilling yourself?", "Do you have a plan for harming or killing yourself?", "Have you recently had thoughtsabout harming or killing others?", "Do you have any dangerous items in your possession?", "Have younoticed less interest or pleasure in doing things?", "Are you here because you tried to hurt yourself?" and"Have you ever tried to hurt yourself before today?".ABUSE ASSESSMENT: Abuse assessment. Abuse denied. No suspicion of abuse. No report of abuse.NUTRITIONAL RISK ASSESSMENT: The nutritional risk assessment revealed no deficienci es.FUNCTIONAL ASSESSMENT: Functional assessment: no impairments noted.LEARNING NEEDS ASSESSMENT: The learning needs assessment revealed no barriers.FALL RISK ASSESSMENT: Fall risk assessment completed. No risk factors identified.SKIN INTEGRITY ASSESSMENT: Skin integrity risk assessment completed. No skin integrity riskidentified. --14:11/19/20 Michelle Rowland R.N.SOCIAL HX: Never smoker. No alcohol use or drug use. The patient has not traveled outside the [place] 3 Clinical Report - Nurses [facility] Emergency Department [address] [place] [address] Phone #: ext- [phone] 11/19/2020 13:54 Patient: MARVIN LEAHY Sex: M : 1990 Age: 30y Infectious disease exposure: No infectious disease exposure. Patient is not a known carrier of tuberculosis, hepatitis, HIV, MRSA or VRE. Patient is not a known carrier of CRE. --14:10 11/19/20 Michelle Rowland R.N. Interventions Identification band on patient. To treatment room. --14:08 11/19/20 Michelle Rowland R.N.NURSING PROGRESS NOTESPatient gowned. Reassurance given. Two patient identifiers checked. Call light placed in reach. Siderails up x 2. Bed placed in lowest position. Brakes of bed on. Patient ready for evaluation. --14: Michelle Rowland R.N. Patient ID band checked for patient name and birthdate: patient confirmed. Instructions provided to collect clean catch urine and patient verbalized understanding. Clean catch urine collected; sample sent to lab for urinalysis. Specimen labeled in the presence of the patient. --14:29 11/19/20 Jennifer Nagy R.N. Patient transported to MRI by wheelchair with optometric technologist. --14:43 11/19/20 Alyssa Ashton Patient returned from MRI by wheelchair with mask and optometric technologist. --15:20 11/19/20 Jennifer Nagy R.N. 15:25 11/19/2020 Prednisone PO Tablets 60 mg given. Allergies verified and confirmed 5 rights. Information reviewed with patient including reason for taking this medication, signs of allergic reaction and precautions. Verbalizes understanding. --15:25 11/19/20 Jennifer Nagy R.N. 15:25 11/19/2020 Toradol (Ketorolac Tromethamine) IM 60 mg given. Given in the left deltoid. Allergies verified and confirmed 5 rights. Information reviewed with patient including reason for taking this medication, signs of allergic reaction and precautions. Verbalizes understanding. --15:25 11/19/20 Jennifer Nagy R.N. 15:26 11/19/20. BP: 139/91. HR: 70. RR: 18. O2 saturation: 99%. Pain level now 6/10. --15:26 11/19/20 Jennifer Nagy R.N. Reassessment acuity: LEVEL 4. Rounding: Pain: assessed pain level. Proximity of possessions / care items: call light within easy reach. Set expectations: advised patient of rounding protocol timing and asked if they needed anything else at this time. The patient is calm and resting quietly. GENERAL / NEURO / PSYCH: Alert. Oriented X 4. --15:26 11/19/20 Jennifer Nagy R.N. 15:28 11/19/2020 Gabapentin PO Capsules 100 mg given. Allergies verified and confirmed 5 rights. Information reviewed with patient including reason for taking this medication, signs of allergic reaction and precautions. Verbalizes under standing. --15:28 11/19/20 Jennifer Nagy R.N.DISPOSITION / DISCHARGE 4 Clinical Report - Nurses [facility] Emergency Department [address] [place] [address] Phone #: ext- [phone] 11/19/2020 13:54 Patient: MARIVN LEAHY Sex: M : 1990 Age: 30y 15:48 11/19/20. BP: 121/68. HR: 76. RR: 16. O2 saturation: 100%. Temp: 96.8 F. Pain level now 04/18. --15:48 11/19/20 [facility] Tech, [place], [place] [address] Condition at departure: improved and stable. Discharge instructions provided and reviewed with the patient. Reviewed medication(s) side effects, precautions, dosing and course information. Reviewed referral to a primary care physician. Activity restrictions (rest) reviewed. Patient verbalized understanding. Written instructions provided in [place]. The patient was discharged by the physician records management assistant. He was discharged home and accompanied by outsole scheduler. He left ambulatory and via private vehicle. Real Estate Leasing Manager driving. --15:51 11/19/20 Troy Ann RN.Locked/Released at 11/19/2020 15:51 by Troy Ann RN Name Value Range Interpretation Code Description Data Marifer rce(s) Supporting Document(s) ID Date Data Source [id number] 11/19/2020 02:16:00 PM EST [facility] 1 Clinical Report - Physicians/Mid Levels [facility] Emergency Department [address] [place] [address] Phone #: ext- [phone] 11/19/2020 13:54 Patient: MARVIN LEAHY Sex: M : 1990 Age: 30y Time Seen: 14:20 11/19/2020. Arrived- By private vehicle. Historian- patient.HISTORY OF PRESENT ILLNESS Chief Complaint: BACK PAIN and CHRONIC BACK PAIN. Onset was last night over 1 year worse last night and it is still present. It was abrupt in onset and has been constant. It is described as being severe and in the area of the mid lumbar spine and radiating to the right hip and thigh. The quality is noted to be aching, "pain" and similar to prior episodes. No bladder dysfunction, bowel dysfunction, sensory loss or motor loss. Patient denies an injury. Similar symptoms previously. Patient has had similar symptoms several times. Recent medical care: The patient was seen recently at this facility.REVIEW OF SYSTEMSNo fever, chills, eye irritation, difficulty with urination or urinary frequency. No skin rash, headache,depression, sore throat or cough. No difficulty breathing, chest pain, abdominal pain, nausea or vomiting.No diarrhea, black stools or bloody stools.PAST HISTORYThe patient has had prior back pain. Problems: Hematuria. Additional Surgeries: no known surgeries. Medications: Memetasone furoate 15mg , 4x a day. Lidocaine External. Divalproex Sodium Oral (Tablet Delayed Release 250 mg), 2x a day. Methocarbamol Oral (Tablet 500 mg), 2x a day. Escitalopram Oxalate Oral (Tablet 10 mg), 2x a day. Acetaminophen Oral (Tablet Chewable 325 mg) 2 tablets, 2x a day. traZODone HCl Oral (Tablet 50 mg), daily. Apixaban Oral (Tablet 5 mg), 2x a day. Ivermectin Oral (Tablet 3 mg) 3 tabs, every 6 months. risperiDONE Oral (Tablet Disintegrating 1 mg), 2x a day. Xolair Subcutaneous (Solution Reconstituted 150 mg) 300mg, 3x a week. 2 Clinical Report - Physicians/Mid Levels [facility] Emergency Department [address] [place] [address] Phone #: ext- [phone] 11/19/2020 13:54 Patient: MARVIN LEAHY Sex: M : 1990 Age: 30y Trolamine Salicylate External. Allergies: Seafood.SOCIAL HISTORYNever smoker. No alcohol use or drug use.PHYSICAL EXAMVital Signs: 11/19/2020 14:09 BP: 115/68. MAP: 83. HR: 58. RR: 18. O2 saturation: 99%. Temp: 97.4 F.Pain level now: 08/18. Have been reviewed as abnormal. Bradycardic. Oxygen saturation normal.Appearance: Alert. No acute distress.HEENT: Normal external inspection.Eyes: Pupils equal, round and reactive to light.ENT: Ears normal. Pharynx normal.Neck: Normal inspection.CVS: Heart sounds normal. Pulses normal.Respiratory: No respiratory distress. Painless inspiration. Breath sounds normal.Abdomen: No visible injury.Back: Moderate vertebral point tenderness over the mid lumbar spine. Moderate soft tissue tenderness inthe mid central lumbar area. Mildly limited ROM in the back- in the lumbar spine: decreased flexion,extension, right lateral bending, left lateral bending and rotation to the right and left. No muscle spasm inthe back or CVA tenderness.Skin: Skin warm and dry. Normal skin color. No rash. Normal skin turgor.Extremities: Extremities exhibit normal ROM. Extremities nontender.Neuro: Oriented X 3. Mood/affect normal.LABS, X-RAYS, AND EKGMRI L-Spine: Note- No evidence of significant disc pathology noted on the current study. Specifically no nosignificant spinal canal or neuroforaminal stenosis. The study was interpreted by the radiologist andcontemporaneously by me. Interpretation time: 15:36 11/19/2020.PROGRESS AND PROCEDURESCourse of Care: 15:38 Nov 19 2020. Evaluation after observation. (Discussed exam findings and ptneeds to return to ED if symptoms worsen otherwise follow up with his PCM at [facility].). Patient counseled in person regarding the patient's stable condition, test results, diagnosis and need for follow-up. Patient agrees with plan of care. 15:38 Nov 19 2020. 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 Lumbar radiculopathy present. No neurologic al deficit. 3 Clinical Report - Physicians/Mid Levels [facility] Emergency Department [address] [place] [address] Phone #: ext- [phone] 11/19/2020 13:54 Patient: MARVIN LEAHY Sex: M : 1990 Age: 30yINSTRUCTIONS No strenuous activity until released (see your BN PA for profile). Warnings: GENERAL WARNINGS: Return or contact your physician immediately if your condition worsens or changes unexpectedly, if not improving as expected, or if other problems arise. SPECIFICALLY, return if you develop weakness of the foot or leg and incontinence of feces (loss of bowel control) or urine (loss of bladder control). Your Current Medications: Your current home medications have been reviewed. CONTINUE TAKING THE FOLLOWING MEDICATIONS: Acetaminophen Oral : Tablet Chewable 325 mg, 2 tablets 2x a day. Apixaban Oral : Tablet 5 mg, 2x a day. Divalproex Sodium Oral : Tablet Delayed Release 250 mg, 2x a day. Escitalopram Oxalate Oral : Tablet 10 mg, 2x a day. Ivermectin Oral : Tablet 3 mg, 3 tabs every 6 months. Lidocaine External. Memetasone furoate* : 15 mg 4x a day. Methocarbamol Oral : Tablet 500 mg, 2x a day. risperiDONE Oral : Tablet Disintegrating 1 mg, 2x a day. traZODone HCl Oral : Tablet 50 mg, daily. Trolamine Salicylate External. Xolair Subcutaneous : Solution Reconstituted 150 mg, 300mg 3x a week. Prescription Medications: Medrol (Julian) 4 mg tablets in a dose pack Take 1 tablet as directed for 6 days -- Dispense 1 pack. Refills: 0. Substitution permitted. Pharmacy - [facility] [id number] [address] ; [place] [address]. . gabapentin 100 mg capsule Take 1 capsule three times a day for 30 days -- Dispense 90 capsule. Refills: 0. Substitution permitted. [facility] - [facility] - [id number] [place] [address] ; [place] [address]. . methocarbamol 500 mg tablet Take 1 tablet three times a day for 10 days -- Dispense 30 tablet. Refills: 0. Substitution permitted. Pharmacy - [facility] [id number] [place] [address] ; [place] [address]. . Follow-up: 4 Clinical Report - Physicians/Mid Levels [facility] Emergency Department [address] [place] [address] Phone #: ext- [phone] 11/19/2020 13:54 Patient: MARVIN LEAHY Sex: M : 1990 Age: 30y Follow up with your doctor tomorrow. Call for an appointment. Reason for referral: evaluation, treatment and refer to pain management and physical therapy. Summary of care provided to patient. Understanding of the discharge instructions verbalized by patient.(Electronically signed by PERLA Cisse 11/19/2020 21:18) Name Value Range Interpretation Code Description Data Marifer rce(s) Supporting Document(s) ID Date Data Source [id number] 11/19/2020 02:54:00 PM EST [facility] Name Value Range Interpretation Code Description Data Marifer rce(s) Supporting Document(s) UR[facility]ALYSIS [facility] URINALYSIS SOURCE R [facility] COLOR yellow NORMAL: Yellow [facility] CLARITY cloudy NORMAL: Clear [facility] Specific gravity of Urine by Test strip 1.015 1.001 - 1.030 [facility] pH 8 5 - 9 [facility] Glucose [Mass/volume] in Urine by Test strip NORM NORMAL: Negat [facility] Bilirubin.total [Presence] in Urine by Test strip NEG NORMAL: Negative [facility] Ketones [Presence] in Urine by Test strip NEG NORMAL: Negative [facility] Protein [Mass/volume] in Urine by Test strip NEG NORMAL: Negat [facility] Nitrite [Presence] in Urine by Test strip NEG NORMAL: Negative [facility] BLOOD 50 NORMAL: Negative [facility] Leukocyte esterase [Presence] in Urine by Test strip NEG DELANO L: Negative [facility] Urobilinogen [Mass/volume] in Urine by Test strip NOR less fidelia n 1.0 mg/dL [facility] MICROSCOPIC See Below [facility] Erythrocytes [#/volume] in Urine by Test strip 3 - 5 NORMAL: NON E SEEN [facility] EPITHELIAL FEW NORMAL: NONE SEEN [facility] Bacteria [Presence] in Urine sediment by Light microscopy 1+ SMALL NORMAL: NONE SEEN [facility] Amorphous sediment [Presence] in Urine sediment by Light marleni roscopy 3+ NORMAL: NONE SEEN [facility] ID Date Data Source [id number] 11/14/2020 11:18:00 AM EST [facility] ([facility]) Name Value Range Interpretation Code Description Data Marifer rce(s) Supporting Document(s) Color of Urine Laboratory test result [facility] ([facility]) Appearance of Urine Laboratory test result [facility] ([facility]) Spec Toyah 1.010 [facility] ([facility]) pH of Urine by Test strip 8 [facility] NT ([facility]) Protein [Presence] in Urine by Test strip Laboratory test result [facility] ([facility]) Leukocytes Laboratory test result [facility] ([facility]) Nitrate [Presence] in Urine Laboratory test result [facility] ([facility]) Urobilinogen Laboratory test result [facility] ([facility]) Bilirubin.total [Presence] in Urine by Test strip Laboratory test res ult [facility] ([facility]) Ketones [Presence] in Urine by Test strip Laboratory test result [facility] ([facility]) Inhouse Glucose Laboratory test result [facility] ([facility]) Blood type and Indirect antibody screen panel - Blood Laboratory test result [facility] ([facility]) ID Date Data Source [id number] 10/23/2020 10:27:00 AM EST [facility] [address] [place] [address] PHONE: [phone] FAX: [phone] Name .................. : TOSIN WONG Cristino Acct Number.................. : [id number] ROOM. ................. : TR-08 Number ................... : [id number] Stay type ............. : E/R Discharge Date......... ... : 10/19/20 Admit Date ......... : 10/19/20 Admit Phys .................... : [facility] Date of ....... : 1990 Family Phys ................... : NON STAFF Phone .................. : [phone] Age ................................ : 30 Film# .................. .:[id number] Sex ................................. : M Unsigned transcriptions are preliminary reports and do not represent a medical or legal document CT HEAD W/O CONTRAST [id number] COMPLETE:10/19/20 19:17 NELLY 24 Reason(s): Syncope CT OF THE HEAD WITHOUT CONTRAST: COMPARISON: None. FINDINGS: No intra-axial or extra-axial collections of fluid. Ventricles and sulci unremarkable. No midline shift or mass effect. Visualized paranasal sinuses and mastoid air cells unremarkable. IMPRESSION: No acute intracranial process. While performing the above CT examination, radiation dose reduction was accomplished utilizing automated exposure control, adjusting of the mA and kV based on the patient's body size and/or the use of imperative reconstructive techniques. CT dose: 850.1 mGycm Electronically Reviewed and Signed By Nimco Bradley MD , 10/23/20 10:27, KGG Transcribe Initials: DZ , Transcribe Date: 10/20/20 00:55, Dictation Date: Copy for: GRAYSON GONZALEZ via fax Copy for: [facility] via fax Copy for: EMERGENCY DEPT via modem Copy for: 710 MED REC DISCHARGED Page 1 of 1 Name Value Range Interpretation Code Description Data Marifer rce(s) Supporting Document(s) ID Date Data Source [id number] 10/22/2020 09:17:00 AM [facility] [address] [place] [address] PHONE: [phone] FAX: [phone] Name .................. : TOSIN WONG Cristino Acct Number.................. : [id number] ROOM. ................. : TR-08 MR Number ................... : [id number] Stay type ............. : E/R Discharge Date......... ... : 10/19/20 Admit Date ......... : 10/19/20 Admit Phys .................... : CHAO CANDE Date of ....... : 1990 Family Phys ................... : NON STAFF Phone .................. : [phone] Age ................................ : 30 Film# .................. .:[id number] Sex ................................. : M Unsigned transcriptions are preliminary reports and do not represent a medical or legal document CHEST 2 VIEWS [id number] COMPLETE:10/19/20 19:17 NELLY 23 Reason(s): Syncope CHEST X-RAY: 2-VIEWS INDICATION: Syncope. COMPARISON: None. FINDINGS: The cardiac and mediastinal silhouettes appear normal and the lungs are clear. The bones and soft tissues are normal. The upper abdomen is unremarkable. IMPRESSION: No acute disease identifiable. Electronically Reviewed and Signed By Nimco Bradley MD , 10/22/20 09:17, KGG Transcribe Initials: GAYATHRI , Transcribe Date: 10/20/20 00:57, Dictation Date: Copy for: GRAYSON GONZALEZ via fax Copy for: CHAO Hall via fax Copy for: EMERGENCY DEPT via mode Copy for: 710 MED REC DISCHARGED Page 1 of 1 Name Value Range Interpretation Code Description Data Marifer rce(s) Supporting Document(s) ID Date Data Source [id number] 10/20/2020 09:17:[address] [address] RESPIRATORY CARE REPORT ==== ---------NAME------- NUMBER SEX AGE ADMIT DISC. XRAY# F/C RHONDA Rivera [id number] M 30 10/19/20 10/19/20 [id number] SB4 E/R DATE OF : 1990 M/R# [id number] #: [id number] TR-08 LOCATION: EMERGENCY DEPT EKG [id number] COMP LETE:10/19/20 14:52 [facility] [address] PHYSICIAN: CHAO MORENO Name Value Range Interpretation Code Description Data Marifer rce(s) Supporting Document(s) ID Date Data Source [id number] 10/19/2020 10:32:00 AM EST [facility] 1 OrderSheet [facility] Emergency Department [address] [place] [address] Phone #: ext- [phone] 10/19/2020 10:31 Patient: MARVIN LEAHY Sex: M : 1990 Age: 30yWEIGHT:72.5 kg (S) HEIGHT:67 inches (S) BMI:25.1ALLERGIES: SeafoodCHIEF COMPLAINT: syncopeDIAGNOSIS: Syncope, Hypertensive disorder, Blood in urine, BackacheLAB ORDERSOrder Description Priority Entered Acknowledged InitialedCBC w Diff STAT 10:56 10/19/2020 11:58 Larry Harley R.N.;CMP STAT 10:56 10/19/2020 11:58 Larry Harley R.N.;PT/PTT STAT 10:56 10/19/2020 11:58 Larry Harley R.N.;Lactic Acid STAT 10:56 10/19/2020 11:58 Larry Harley R.N.;Lipase STAT 10:56 10/19/2020 11:58 Larry Harley R.N.;Magnesium STAT 10:56 10/19/2020 11:58 Larry Harley R.N.;Troponin-T STAT 10:56 10/19/2020 11:58 Larry Harley R.N.;TSH STAT 10:56 10/19/2020 11:58 Larry Harley R.N.;Urinalysis (Clean STAT 10:56 10/19/2020 12:09 Ervin Harley) Larry DUNCAN;DIAGNOSTIC STUDY ORDERSOrder Description Priority Entered Acknowledged InitialedChest 2 View STAT 10:56 10/19/2020 11:58 Luz Harley OrderSheet [facility] Emergency Department [address] [place] [address] Phone #: ext- [phone] 10/19/2020 10:31 -------- Patient: MARVIN LEAHY Sex: M : 1990 Age: 30y(Oxygen?(No)) Larry DUNCAN; Reason for Study: SyncopeCT Head W/O Cont STAT 10:56 10/19/2020 11:58 Cricket(Oxygen?(No)) Larry DUNCAN; Reason for Study: SyncopeMEDICATION/IV/DRIP/FLUID ORDERSOrder Description Priority Entered Acknowledged InitialedMorphine IVP 4 mg 10:57 10/19/2020 Cancelled: Physician Order 11:30 Larry(HIGH ALERT Larry Moreno PAMEDICATION) PERLA;Marianne ODT PO 8 10:57 10/19/2020 11:34 mg Larry HarleyN. PA;Morphine IM 4 mg 11:30 10/19/2020 11:34 Cricket(HIGH ALERT Larry Hall R.N.ME DICATION) PA;GENERAL ORDERSOrder Description Priority Entered Acknowledged InitialedBlood Pressure 10:57 10/19/2020 11:00 Cricket,Monitor Larry DUNCAN;Box Attacher 10:57 10/19/2020 11:00 Cricket(continuous) Larry DUNCAN;EKG 10:57 10/19/2020 11:00 Larry Harley R.N.;Pulse oximeter 10:57 10/19/2020 11:00 Cricket(Continuous) Larry DUNCAN;Vitals 10:57 10/19/2020 11:00 Larry Harley R.N. PA;[Electronically signed by Rafael Harley R.N. (13:51 10/19/2020)][Electronically signed by Larry Moreno (21:52 10/19/2020)][Electronically locked by Rafael Harley R.N. (13:51 10/19/2020)] Name Value Range Interpretation Code Description Data Marifer rce(s) Supporting Document(s) ID Date Data Source [id number] 10/19/2020 10:32:00 AM EST [facility] 1 Medication Reconciliation Report [facility] Emergency Department [address] [place] [address] Phone #: [phone] 10/19/2020 10:31 Patient: MARVIN LEAHY Sex: M : 1990 Age: 30yWeight: 72.5 kgHeight/Length: 67 in.BMI: 25.1ALLERGIES: SeafoodThe patient's Home Medications are listed below:THE FOLLOWING MEDICATIONS NEED TO BE RECONCILED: Apixaban Oral (5 mg) 1 tablet, 2x a day Cyclobenzaprine HCl Oral 10 mg, daily Lidocaine External, daily Methocarbamol Oral 500 mg, daily, prn,at bedtime Trolamine Salicylate External, daily Tylenol Oral 650 mg, prnThe source(s) of the original Home Medication information:Not obtained.The following Medications were given to the patient in the Emergency Department:Zofran ODT [PO] PO 8 mg, administered: 11:34 10/19/2020Morphine [IM] IM 4 mg, administered: 11:34 10/19/2020The following Medications were prescribed to the patient:gabapentin 100 mg capsule Take 1 capsule three times a day for 30 days -- Dispense 90 capsule.Refills: 0. Substitution permitted.Pharmacy - [facility] [employer] [address] [facility] ; [place] [address]. .Medrol (Julian) 4 mg tablets in a dose pack Take 1 tablet as directed for 6 days -- Dispense 1 pack. 2 Medication Reconciliation Report [facility] Emergency Department [address] [place] [address] Phone #: ext- [phone] 10/19/2020 10:31 -- Patient: MARVIN LEAHY Sex: M : 1990 Age: 30yRefills: 0. Substitution permitted.Pharmacy - [facility] - [id number] [facility] ; [place] [address]. . -- PERLA Cisse Name Value Range Interpretation Code Description Data Marifer rce(s) Supporting Document(s) ID Date Data Source [id number] 10/19/2020 10:32:00 AM [facility] 1 Medication Administration Record [facility] Emergency Department [address] [place] [address] Phone #: ext- [phone] 10/19/2020 10:31 Patient: MARVIN LEAHY Sex: M : 1990 Age: 30yWeight: 72.5 kgHeight/Length: 67 inBMI: 25.1ALLERGIES: Seafood Date/Time Medication Administered Medication OrderedGiven ZOFRAN ODT [PO] (ONDANSETRON Zofran ODT PO 8 mg11:34 10/19/2020 HCL)Rafael Harley R.N. Dose: 8 mg Tablets POGiven MORPHINE [IM] Morphine IM 4 mg (HIGH ALERT11:34 10/19/2020 Dose: 4 mg IM MEDICATION)Rafael Harley R.N. Name Value Range Interpretation Code Description Data Marifer rce(s) Supporting Document(s) ID Date Data Source [id number] 10/19/2020 10:32:00 AM EST [facility] 1 General Instructions [facility] Emergency Department [address] [place] [address] Phone #: ext- [phone] 10/19/2020 10:31 Patient: MARVIN LEAHY Sex: M : 1990 Age: 30yVasovagal, postural syncope(Micturition Syncope).Microscopic hematuriaUncontrolled essential hypertension.Chronic nontraumatic lumbar back pain.INSTRUCTIONSNo strenuous activity until released.Warnings: Further evaluation is necessary. It is very important to follow up with a healthcare provider.Prescription Medications:gabapentin 100 mg capsule Take 1 capsule three times a day for 30 days -- Dispense 90 capsule.Refills: 0. Substitution permitted.Pharmacy - [facility] - [address] [facility] ; [place] [address]. .Medrol (Julian) 4 mg tablets in a dose pack Take 1 tablet as directed for 6 days -- Dispense 1 pack.Refills: 0. Substitution permitted.Pharmacy - [facility] - [address] [facility] ; [place] [address]. .Understanding of the discharge instructions verbalized by patient.Follow-up with: Dylan Shi MD, Cardiology, , [address] [place] [address] Follow up. Call for the next available appointment. Reason for referral: evaluation, treatment and seeyour PCM for referral to Cardiology for further evaluation. Summary of care provided to patient.Follow-up with: Benito Willett M.D., Urology, , [address] [place] [address], [facility] Follow up. Call for the next available appointment. Reason for referral: evaluation, treatment and seeyour PCM for referral to Urology, evaluate Hematuria and Micurition Syncope. Summary of care providedto patient. ADDITIONAL INFORMATIONFainting: Vagal Reaction 2 General Instructions [facility] Emergency Department [address] [place] [address] Phone #: ext- [phone] 10/19/2020 10:31 Patient: MARVIN LEAHY Sex: M : 1990 Age: 30yFainting (syncope) is a temporary loss of consciousness that is associated with a loss of posturaltone. It's also called passing out. It occurs when blood flow to the brain is less than normal. Yourhealthcare provider believes that your fainting was because of a vagal reaction. This condition is not asign of serious disease.A vagal reaction is a response in your body that causes your pulse to slow down or the blood vesselsto expand. This causes your blood pressure to fall. And this sends less blood to your brain if you arestanding or sitting. That results in dizziness, near-fainting, or fainting. Lying down usually stops thereaction within 60 seconds.This response can occur during sudden fear, severe pain, emotional stress, overexertion,overheating, hunger, nausea or vomiting, prolonged standing, or standing up after sitting or lying for along time.Home careFollow these guidelines when caring for yourself at home: Rest today. Go back to your normal activities as soon as you are feeling back to normal. Stay hydrated and avoid skipping meals. If you feel lightheaded or dizzy, lie down right away. Or sit with your head lowered between your knees.Follow-up careFollow up with your healthcare provider, or as advised.When to seek medical adviceCall your healthcare provider right away if any of these occur: Another fainting spell that's not explained by the common causes listed above Pain in your chest, arm, neck, jaw, back, or abdomen Shortness of breath Severe headache or seizure Your heart beats very rapidly, very slowly, or irregularly (palpitations) [id number] [employer]. [address] [place] [address]. All rights reserved. This information is not intended as asubstitute for professional medical care. Always follow your healthcare professional's instructions.High Blood Pressure, To Be Confirmed, No Treatment 3 General Instructions [facility] Emergency Department [address] [place] [address] Phone #: ext- [phone] 10/19/2020 10:31 Patient: MARVIN LEAHY Sex: M : 1990 Age: 30yYour blood pressure today was higher than normal. Sometimes anxiety, pain, or other issues cancause a short-term rise in blood pressure. It later returns to normal. Blood pressure that is high paty time doesn't mean that you have high blood pressure (hypertension). High blood pressure is along-term (chronic) illness. But you should have your blood pressure measured again in the next fewdays to find out if it's still high.Blood pressure measurements are given as 2 numbers. Systolic blood pressure is the upper number.This is the pressure when the heart contracts. Diastolic blood pressure is the lower number. This isthe pressure when the heart relaxes between beats. You will see your blood pressure readingswritten together. For example, a person with a systolic pressure of 118 and a diastolic pressure of 78will have 118/78 written in the medical record.Blood pressure is classified as normal, raised (elevated), or stage 1 or stage 2 high blood pressure: Normal blood pressure. Systolic of less than 120 and diastolic of less than 80 (120/80). Elevated blood pressure. Systolic of 120 to 129 and diastolic less than 80. Stage 1 high blood pressure. Systolic is 130 to 139 or diastolic between 80 to 89. Stage 2 high blood pressure. Systolic is 140 or higher or the diastolic is 90 or higher.Lifestyle changes can help manage your blood pressure. These include weight loss, exercise, andquitting smoking. Have your blood pressure checked regularly to be sure it is under control.Home careTo track your blood pressure, your healthcare provider may ask you to come into the office atdifferent times and on different days. If your provider asks you to check your readings at home, askhim or her what times of the day to test and for how many days. Before you leave the office, ask yourprovider to show you how to take your blood pressure. Ask questions if you don't understandsomething.Using a home blood pressure monitorThink about buying an automatic blood pressure monitor. Ask your provider for a recommendation aswell as the correct size cuff to fit your arm. You can buy blood pressure monitors at most pharmacies. 4 General Instructions [facility] Emergency Department [address] [place] [address] Phone #: ext- [phone] 10/19/2020 10:31 Patient: MARVIN LEAHY Sex: M : 1990 Age: 30yThe [place] [employer] Association advises the following guidelines for home blood pressure monitoring: Don't smoke or drink coffee or other caffeinated drinks for 30 minutes before taking your blood pressure. Go to the bathroom before the test. Relax for 5 minutes before taking the measurement. Sit with your back supported (don't sit on a couch or soft chair). Keep your feet on the floor uncrossed. Place your arm on a solid flat surface (like a table) with the upper part of the arm at heart level. Place the middle of the cuff directly above the bend of the elbow. Check the monitor's instruction manual for an illustration. Take multiple readings. When you measure, take 2 to 3 readings one minute apart. Record all of the results. Take your blood pressure at the same time every day, or as your provider advises. Record the date, time, and blood pressure reading. Take the record with you to your next medical appointment. If your blood pressure monitor has a built-in memory, simply take the monitor with you to your next appointment. Call your provider if you have several high readings. Don't be frightened by a single high blood pressure reading. But if you get a few high readings, check in with your provider.Follow-up careKeep all of your follow-up appointments. If your blood pressure is more than 120 over 80 on 2 out of 3days, you will need to follow up with your healthcare provider for more evaluation and treatment.Don't put this off! High blood pressure can be treated. High blood pressure that's not treated raisesyour risk for heart attack, heart failure, kidney disease, and stroke.Call [phone] if you have any of these: Blood pressure of 180/120 or higher Chest pain or shortness of breath Weakness of an arm or leg or one side of the face Problems speaking or seeingWhen to get medical advice 5 General Instructions [facility] Emergency Department [address] [place] [address] Phone #: [phone] 10/19/2020 10:31 Patient: MARVIN LEAHY Sex: M : 1990 Age: 30yCall your healthcare provider right away if any of these occur: Severe headache Throbbing or rushing sound in the ears Nosebleed Sudden severe pain in your belly (abdomen) Extreme drowsiness, confusion, or fainting Dizziness or dizziness with spinning feeling (vertigo) [employer]. [address] [place] [address]. All rights reserved. This information is not intended as asubstitute for professional medical care. Always follow your healthcare prof richard's instructions.Back Pain (Acute or Chronic) 6 General Instructions [facility] Emergency Department [address] [place] [address] Phone #: ext- [phone] 10/19/2020 10:31 Patient: MARVIN LEAHY Sex: M : 1990 Age: 30yBack pain is one of the most common problems. The good news is that most people feel better in 1 to2 weeks, and most of the rest in 1 to 2 months. Most people can remain active.People who have pain describe it differently--not everyone is the same. The pain can be sharp, stabbing, shooting, aching, cramping or burning. Movement, standing, bending, lifting, sitting, or walking may worsen pain. It can be limited to one spot or area, or it can be more generalized. It can spread upwards, to the front, or go down your arms or legs (sciatica). It can cause muscle spasm.Most of the time, mechanical problems with the muscles or spine cause the pain. Mechanicalproblems are usually caused by an injury to the muscles or ligaments. Illness can cause back pain,but it's usually not caused by a serious illness. Mechanical problems include: Physical activity such as sports, exercise, work, or normal activity Overexertion, lifting, pushing, pulling incorrectly or too aggressively Sudden twisting, bending, or stretching from an accident, or accidental movement Poor posture Stretching or moving wrong, without noticing pain at the time Poor coordination, lack of regular exercise (check with your doctor a bout this) Spinal disc disease or arthritis StressPain can also be related to , or illness like appendicitis, bladder or kidney infections, pelvicinfections, and many other things.Acute back pain usually gets better in 1 to 2 weeks. Back pain related to disk disease, arthritis in thespinal joints, or narrowing of the spinal canal (spinal stenosis) can become chronic and last formonths or years.Unless you had a physical injury such as a car accident or fall, X-rays are usually not needed for thefirst assessment of back pain. If pain continues and does not respond to medical treatment, you mayneed X-rays and other tests.Home careTry this home care advice: 7 General Instructions [facility] Emergency Department [address] [place] [address] Phone #: ext- [phone] 10/19/2020 10:31 Patient: MARVIN LEAHY Sex: M : 1990 Age: 30y When in bed, try to find a position of comfort. A firm mattress is best. Try lying flat on your back with pillows under your knees. You can also try lying on your side with your knees bent up toward your chest and a pillow between your knees. At first, don't try to stretch out the sore spots. If there is a strain, it's not like the good soreness you get after exercising without an injury. In this case, stretching may make it worse. Don't sit for long periods, as in a long car ride or during other travel. This puts more stress on the lower back than standing or walking. During the first 24 to 72 hours after an acute injury or flare up of chronic back pain, apply an ice pack to the painful area for 20 minutes and then remove it for 20 minutes. Do this over a period of 60 to 90 minutes or several times a day. This will reduce swelling and pain. Wrap the ice pack in a thin towel or plastic to protect your skin. You can start with ice, then switch to heat. Heat (hot shower, hot bath, or heating pad) reduces pain and works well for muscle spasms. Heat can be applied to the painful area for 20 minutes then remove it for 20 minutes. Do this over a period of 60 to 90 minutes or several times a day. Don't sleep on a heating pad. It can lead to skin arias or tissue damage. You can alternate ice and heat therapy. Talk with your doctor about the best treatment for your back pain. Therapeutic massage can help relax the back muscles without stretching them. Be aware of safe lifting methods and don't lift anything without stretching first.MedicinesTalk to your doctor before using medicine, especially if you have other medical problems or are takingother medicines. You may use [id number] medicine as directed on the bottle to control pain, unless another pain medicine was prescribed. If you have chronic conditions like diabetes, liver or kidney disease, stomach ulcers, or gastrointestinal bleeding, or are taking blood thinners, talk to your doctor before taking any medicine. Be careful if you are given a prescription medicines, narcotics, or medicine for muscle spasms. They can cause drowsiness, affect your coordination, reflexes, and judgement. Don't drive or operate heavy machinery.Follow-up careFollow up with your healthcare provider, or as advised.If X-rays were taken, you will be told of any new findings that may affect your care 8 General Instructions [facility] Emergency Department [address] [place] [address] Phone #: ext- [phone] 10/19/2020 10:31 Patient: MARVIN LEAHY Sex: M : 1990 Age: 30yCall 911Call 911 if any of the following occur: Trouble breathing Confusion Very drowsy or trouble awakening Fainting or loss of consciousness Rapid or very slow heart rate Loss of bowel or bladder controlWhen to seek medical adviceCall your healthcare provider right away if any of these occur: Pain becomes worse or spreads to your legs Weakness or numbness in one or both legs Numbness in the groin or genital area [employer]. [address] [place] [address]. All rights reserved. This information is not intended as asubstitute for professional medical care. Always follow your healthcare professional's instructions.Blood in the Urine 9 General Instructions [facility] Emergency Department [address] [place] [address] Phone #: ext- [phone] 10/19/2020 10:31 Patient: MARVIN LEAHY Sex: M : 1990 Age: 30yBlood in the urine (hematuria) has many possible causes. If it occurs after an injury (such as a caraccident or fall), it is most often a sign of bruising to the kidney or bladder. Common causes of bloodin the urine include urinary tract infections, kidney stones, inflammation, tumors, or certain otherdiseases of the kidney or bladder. Menstruation can cause blood to appear in the urine sample, but itis not coming from the urinary tract.If only a tiny (trace) amount of blood is present, it will show up on the urine test, even though the urinemay be yellow and not pink or red. This may occur with any of the above conditions, as well as heavyexercise or high fever. In this case, your healthcare provider may want to repeat the urine test onanother day. This will show if there is still blood in the urine. If there is, then other tests can be doneto find out the cause.Home careFollow these home care guidelines: If your urine does not look bloody (pink, brown, or red) then you don't need to restrict your activity in any way. If you can see blood in your urine, rest and don't do any strenuous activity until your next exam. Don't use aspirin, blood thinners, or anti-platelet or anti-inflammatory medicines. These include ibuprofen and naproxen. These thin the blood and may increase bleeding. Call your healthcare provider to talk about using these medicines.Follow-up care 10 General Instructions [facility] Emergency Department [address] [place] [address] Phone #: ext- [phone] 10/19/2020 10:31 Patient: MARVIN LEAHY Sex: M : 1990 Age: 30yFollow up with your healthcare provider, or as advised. If you were injured and had blood in yoururine, you should have a repeat urine test in 1 to 2 days. Contact your provider for this test.A radiologist will review any X-rays that were taken. You will be told of any new findings that mayaffect your care.When to seek medical adviceCall your healthcare provider right away if any of these occur: Bright red blood or blood clots in the urine (if you did not have this before) Weakness, dizziness or fainting New groin, belly, or back pain Fever of 100.4F (38C) or higher, or as directed by your provider Repeated vomiting Bleeding from the nose or gums or easy bruising [employer]. [address] [place] [address]. All rights reserved. This information is not intended as asubstitute for professional medical care. Always follow your healthcare professional's instructions. You have been given the following additional information: Fainting, Vagal Reaction Hypertension, To Be Confirmed Back Pain (Acute or Chronic) Hematuria No strenuous activity until released.(Electronically signed by PERLA Cisse 10/19/2020 21:52) Name Value Range Interpretation Code Description Data Marifer rce(s) Supporting Document(s) ID Date Data Source [id number] 10/19/2020 10:32:00 AM EST [facility] 1 Clinical Report - Nurses [facility] Emergency Department [address] [place] [address] Phone #: ext- [phone] 10/19/2020 10:31 Patient: MARVIN LEAHY Sex: M : 1990 Age: 30yTRIAGEHistorian: patient.Acuity: LEVEL 3.Chief Complaint: BACK PAIN.This started last night. ( Hx of back pain with an event last night that caused him to urinate on himself.).He has had trouble walking. ( Describes pain as radiating down both legs). No numbness, weakness ortingling. --10:45 10/19/20 Rafael Harley R.N.10:34 10/19/20. BP: 142/85. MAP: 104. HR: 77. RR: 16. O2 saturation: 100%. Temp: 98.2 F. Pain levelnow: 06/18. --10:45 10/19/20 Rafael Harley R.N.Weight: 72.5 kg stated. Height/Length: 67 inches Per Patient. BMI: 25.1. --10:45 10/19/20 Rafael Harley R.N.MedicationsApixaban Oral (Tablet 5 mg) 1 tablet, 2x a day. Cyclobenzaprine HCl Oral 10 mg, daily. Lidocai ne External, daily. Methocarbamol Oral 500 mg, daily as needed, at bedtime. Trolamine Salicylate External, daily. Tylenol Oral 650 mg, as needed. --10:42 10/19/20 Rafael Harley R.N.AllergiesSeafood. --10:42 10/19/20 Rafael Harley R.N.HistoryPAST MEDICAL HX: Skin problems. No history of diabetes mellitus, hypertension, heart disease or lungdisease.SURGERY HX: No history of previous surgery.SOCIAL HX: Never smoker. No alcohol use or drug use. He was offered HIV testing but declined andhepatitis C testing but declined. He has not traveled outside the [place]Infectious disease exposure: No infectious disease exposure.SELF HARM ASSESSMENT: Self harm assessment was performed. The patient answered "no" to thequestion(s) "Have you recently felt down, depressed, or hopeless?" and "Do you have thoughts of harmingor killing yourself?". 2 Clinical Report - Nurses [facility] Emergency Department [address] [place] [address] Phone #: ext- [phone] 10/19/2020 10:31 Patient: MARVIN LEAHY Sex: M : 1990 Age: 30y ABUSE ASSESSMENT: Abuse assessment. No report of abuse. NUTRITIONAL RISK ASSESSMENT: The nutritional risk assessment revealed no deficiencies. FUNCTIONAL ASSESSMENT: Functional assessment: no impairments noted. LEARNING NEEDS ASSESSMENT: The learning needs assessment revealed no barriers. FALL RISK ASSESSMENT: Fall risk assessment completed. Risk factors identified include patient impairment of mobility. SKIN INTEGRITY ASSESSMENT: Skin integrity risk assessment completed. No skin integrity risk identified. --10:45 10/19/20 Rafael Harley R.N.PHYSICAL ASSESSMENTGENERAL / NEURO / PSYCH: Alert. Oriented X 4. Appears in pain.RESPIRATORY: Respirations not labored.EXTREMITIES: Limited ROM present.BACK: Vertebral point tenderness. --10:47 10/19/20 Rafael Harley R.N.NURSING PROGRESS NOTES11:34 10/19/2020 Zofran ODT (Ondansetron HCl) PO Tablets 8 mg given. --11:34 10/19/20 Rafael Harley R.N. 11:34 10/19/2020 Morphine IM 4 mg given. --11:34 10/19/20 Rafael Harley R.N. Patient returned from [place] by wheelchair with tech. --11:59 10/19/20 Rafael Harley R.N. Reassurance given to the patient. --11:59 10/19/20 Rafael Harley R.N. Bed placed in lowest position. Brakes of bed on. --13:50 10/19/20 Rafael Harley R.N.DISPOSITION / DISCHARGE No learning barriers present. Discharge instructions provided and reviewed with the patient. The patient was discharged by the physician records management assistant. He was discharged home. He left ambulatory and via private vehicle. Patient driving. --13:50 10/19/20 Rafael Harley R.N. 13:50 10/19/20. BP: 124/66. MAP: 85. HR: 62. RR: 18. O2 saturation: deferred. Temp: deferred. Pain level now: 12/19. --13:50 10/19/20 Rafael Harley R.N. Departure time: 13:51 10/19/2020. --13:51 10/19/20 Rafael Harley R.N. 3 Clinical Report - Nurses [facility] Emergency Department [address] [place] [address] Phone #: ext- [phone] 10/19/2020 10:31 Patient: MARVIN LEAHY Sex: M : 1990 Age: 30yLocked/Released at 10/19/2020 13:51 by Rafael Harley R.N. Name Value Range Interpretation Code Description Data Marifer rce(s) Supporting Document(s) ID Date Data Source [id number] 10/19/2020 10:32:00 AM EST [facility] 1 Clinical Report - Physicians/Mid Levels [facility] Emergency Department [address] [place] [address] Phone #: ext- [phone] 10/19/2020 10:31 Patient: MARVIN LEAHY Sex: M : 1990 Age: 30y Time Seen: 10:45 10/19/2020. Arrived- By private vehicle. Historian- patient.HISTORY OF PRESENT ILLNESS Chief Complaint: SYNCOPE and Back Pain. The patient has recovered. This occurred last night. Unknown when patient was last known well. Event was witnessed. Witnessed by spouse. At time of event, he was standing and had just stood up. This did not occur when the patient was recumbent, during exertion or while the patient was sitting. The patient felt faint, lost consciousness, was incontinent and collapsed. No seizure activity or apnea noted. Did not lose pulse. The patient had preceding symptoms of light- headedness. No preceding symptoms of nausea, dim vision, chest pain, warmth or abdominal pain. Had a single episode. Did not experience repeated episodes. The episode was brief. The patient currently has weakness. Similar symptoms p reviously. None. Recent medical care: The patient was seen recently in a clinic.REVIEW OF SYSTEMSNo headache, dizziness, weakness, chest pain or palpitations. No vomiting, diarrhea, black stools, feveror sore throat. No difficulty breathing, difficulty with urination, skin rash, enlarged lymph nodes or cough.No joint pain. The patient has had pre-existing numbness of the left leg (mild).PAST HISTORYProblems:Skin Problems. Additional Surgeries: no known surgeries. Medications: Apixaban Oral (Tablet 5 mg) 1 tablet, 2x a day. Cyclobenzaprine HCl Oral 10 mg, daily. Lidocaine External, daily. Methocar bamol Oral 500 mg, daily as needed, at bedtime. Trolamine Salicylate External, daily. Tylenol Oral 650 mg, as needed. Allergies: Seafood.SOCIAL HISTORYNever smoker. No alcohol use or drug use. 2 Clinical Report - Physicians/Mid Levels [facility] Emergency Department [address] [place] [address] Phone #: ext- [phone] 10/19/2020 10:31 Patient: MARVIN LEAHY Sex: M : 1990 Age: 30yPHYSICAL EXAMVital Signs: 10/19/2020 10:34 BP: 142/85. MAP: 104. HR: 77. RR: 16. O2 saturation: 100%. Temp: 98.2F. Pain level now: 06/18. Have been reviewed as abnormal. Hypertensive. Oxygen saturation normal.Appearance: Alert. No acute distress.Eyes: Pupils equal, round and reactive to light. No nystagmus. Extraocular movements normal.ENT: Normal ENT inspection. TM's normal. Moist mucous membranes. Pharynx normal.Neck: Normal inspection. Neck supple.CVS: Normal heart rate and rhythm. Cardiac murmur present. Pulses normal.Respiratory: No respiratory distress. Painless inspiration. Breath sounds normal.Abdomen: Soft and nontender. No organomegaly. Back: Normal inspection.Skin: Skin warm and dry. Normal skin color. Normal skin turgor. Skin rash.Extremities: Extremities exhibit normal ROM.Neuro: Alert. Oriented X 3. Mood/affect normal. Speech normal. Cranial nerves normal (as tested).No cerebellar findings. No motor deficit. No sensory deficit. Reflexes normal.LABS, X-RAYS, AND EKGChest X-ray: No acute disease. Views: PA and lateral. The X-rays were interpreted by the radiologistand contemporaneously by me. Interpretation time: 13:38 10/19/2020.CT Head: Normal study. Head CT performed without contrast. The study was interpreted by theradiologist and contemporaneously by me.Laboratory Tests: Laboratory tests have been ordered, with results reviewed and considered in themedical decision making process. CBC w Diff: (DERRICK: 10/19/2020 11:41) ( MsgRcvd 10/19/2020 11:56) Final results Test Result Flag Units (Reference) CBC W/AUTOMATED DIFF COMPLETE BLOOD COUNT WBC 4.6 10/uL (4.2 - 11.0) RBC 4.94 10/uL (4.50 - 6.30) HEMOGLOBIN 14.6 g/dL (14.0 - 16.0) HEMATOCRIT 43.6 % (41.0 - 51.0) MCV 88.3 fL (80.0 - 94.0) MCH 29.6 pg (27.0 - 34.0) MCHC 33.5 g/dL (31.0 - 36.0) RDW 12.2 % (11.5 - 14.8) PLATELETS 196 10/uL (150 - 450) MPV 10.4 fL (7.4 - 10.4) NEUT 46.2 % (37.0 - 80.0) LYMPH 41.5 H % (25.0 - 40.0) MONO 9.2 H % (3.0 - 8.0) EOS 2.0 % (0.0 - 7.0) BASO 0.7 % (0.0 - 2.0) %IG 0.4 H % (0.0 - 0.0) %NRBC 0.0 % (0.0 - 0.0) #NEUT 2.12 10/uL (2.00 - 6.90) #LYMPH 1.90 10/uL (0.60 - 3.40) #MONO 0.42 10/uL (0.00 - 0.90) #EOS 0.09 10/uL (0.00 - 0.70) #BASO 0.03 10/uL (0.00 - 0.20) 3 Clinical Report - Physicians/Mid Levels [facility] Emergency Department [address] [place] [address] Phone #: ext- [phone] 10/19/2020 10:31 Patient: MARVIN LEAHY Sex: M : 1990 Age: 30y #IG 0.02 10/uL (0.00 - 0.10) #NRBC 0.00 10/uL (0.00 - 0.00) MANUAL DIFF NOT INDICATED RBC MORPH NOT INDICATEDCMP: (DERRICK: 10/19/2020 11:41) ( MsgRcvd 10/19/2020 12:34) Final results Test Result Flag Units (Reference) COMPREHENSIVE METABOLIC PANEL COMPREHENSIVE METABOLIC PANEL SODIUM 140 mEq/L (134 - 153) POTASSIUM 4.1 mEq/L (3.6 - 5.0) CHLORIDE 104 mEq/L (98 - 107) CO2 33 H MEQ/L (22 - 30) GLUCOSE 66 MG/DL (65 - 110) BUN 13 MG/DL (7 - 21) CREATININE 1.0 MG/DL (0.7 - 1.5) BUN/CREAT 13 (8 - 27) TOTAL PROTEIN 8.0 G/DL (6.3 - 8.2) ALBUMIN 4.4 G/DL (3.9 - 5.0) GLOBULIN 3.6 H GM/DL (2.4 - 3.2) A/G RATIO 1.2 (0.8 - 2.0) CALCIUM 10.0 MG/DL (8.4 - 10.2) TOTAL BILI <0.7 MG/DL (0.2 - 1.3) ALKALINE PHOS 63 U/L (38 - 126) SGOT/AST 28 U/L (5 - 40) SGPT/ALT 30 U/L (7 - 56) ANION GAP 3.0 L mmol/L (8.0 - 16.0) AGE 30 yrs NON-AA GFR >60 mL/min AFR AMER GFR >60 mL/min Male GFR Interprentation 20-49 yrs >60 mL/min Qjeevx81-82 yrs >56 mL/min Normal 60-69 yrs >49 mL/min Normal 70-79yrs>42 mL/min Normal 80 and above >35 mL/min Normal Female GFRInterpretation 20-39 yrs >60 mL/min Normal 40-49 yrs >58 mL/minNormal 50-59 yrs >51 mL/min Normal 60-69 yrs >45 mL/min Obiqxn76-69 yrs >39 mL/min Normal 80 and above >32 mL/min NormalPT/PTT: (DERRICK: 10/19/2020 11:41) ( [facility] 10/19/[facility] 11:57) Final results Test Result Flag Units (Reference) PROTIME 14.6 SECONDS (11.0 - 15.5) INR 1.08 (0.93 - 1.23) PTT 28.1 SECONDS (24.8 - 36.7) \\BLDo\\INR INTERPRETATION\\BLDx\\ Therapeutic range for Coumadin andrelated oral anticoagulants. -International Normalized Ratio (INR): 2.0 - 3.0 for VenousThrombosis, Pulmonary Embolus, Tissue heart valves, Acute AR Atrial Fibrillation, Valvular heart diseaseand recurrent Systemic Embolism. -International Normalized Ratio (INR): 2.5 - 3.5 forMechanical Prosthetic valve.Lactic Acid: (DERRICK: 10/19/2020 11:41) ( [facility] 10/19/2020 11:52) Final results Test Result Flag Units (Reference) LACTIC ACID 1.0 MMOL/L (0.2 - 2.2)Lipase: (DERRICK: 10/19/2020 11:41) ( [facility] 10/19/2020 12:33) Final results Test Result Flag Units (Reference) LIPASE 35 U/L (13 - 60) 4 Clinical Report - Physicians/Mid Levels [facility] Emergency Department [address] [place] [address] Phone #: ext- [phone] 10/19/2020 10:31 Patient: MARVIN LEAHY Sex: M : 1990 Age: 30y Magnesium: (DERRICK: 10/19/2020 11:41) ( [facility] 10/19/2020 12:33) Final results Test Result Flag Units (Reference) MAGNESIUM 2.1 MG/DL (1.7 - 2.2) Troponin-T: (DERRICK: 10/19/2020 11:41) ( [facility] 10/19/2020 13:24) Final results Test Result Flag Units (Reference) TROPONIN T <0.01 NG/ML (0.00 - 0.10) TROPONIN T0.1 ng/ml Recommended as the clinical threshold value forTroponin T. TSH: (DERRICK: 10/19/2020 11:41) ( [facility] 10/19/2020 12:33) Final results Test Result Flag Units (Reference) TSH 1.61 uIU/mL (0.47 - 5.01) Urinalysis: (DERRICK: 10/19/2020 11:40) ( [facility] 10/19/2020 12:29) Final results Test Result Flag Units (Reference) URINALYSIS URINALYSIS SOURCE R COLOR yellow (NORMAL: Yello CLARITY clear (NORMAL: Clear SPEC GRAVITY 1.020 (1.001 - 1.030 pH 7 (5 - 9) GLUCOSE NORM (NORMAL: Negat BILIRUBIN NEG (NORMAL: Negat KETONE NEG (NORMAL: Negat PROTEIN NEG (NORMAL: Negat NITRITE NEG (NORMAL: Negat BLOOD 10 A (NORMAL: Negat LEUK EST NEG (NORMAL: Negat UROBILINOGEN NOR (less than 1.0 MICROSCOPIC See Below RBC 1 - 3 (NORMAL: NONE.PROGRESS AND PROCEDURESCourse of Care: Evaluation after observation. (Discussed with Dr Shi who examined pt in the ED andwill see in the office for murmur, non-specific. Pt has recurring micturition syncope and needs to follow upwith urology and PCP and Cardiology.). Patient counseled in person regarding the patient's stable condition, test results, diagnosis and need for follow-up. Patient agrees with plan of care. 13:39 Oct 19 2020. Disposition: Discharged home in good and improved condition (13:39 Oct 19 2020).CLINICAL IMPRESSION Vasovagal, postural syncope(Micturition Syncope). Microscopic hematuria 5 Clinical Report - Physicians/Mid Levels [facility] Emergency Department [address] [place] [address] Phone #: ext- [phone] 10/19/2020 10:31 Patient: MARVIN LEAHY Sex: M : 1990 Age: 30y Uncontrolled essential hypertension. Chronic nontraumatic lumbar back pain.INSTRUCTIONS No strenuous activity until released. Warnings: Further evaluation is necessary. It is very important to follow up with a healthcare provider. Prescription Medications: gabapentin 100 mg capsule Take 1 capsule three times a day for 30 days -- Dispense 90 capsule. Refills: 0. Substitution permitted. [facility] [id number] [facility] ; [place] [address]. . Medrol (Julian) 4 mg tablets in a dose pack Take 1 tablet as directed for 6 days -- Dispense 1 pack. Refills: 0. Substitution permitted. Pharmacy - [facility] [employer] [facility] ; [place] [address]. FaxNumber: [phone]. Understanding of the discharge instructions verbalized by patient. Follow- up with: Dylan Shi MD, Cardiology, , [address] [place] [address], [id number] Follow up. Call for the next available appointment. Reason for referral: evaluation, treatment and see your PCM for referral to Cardiology for further evaluation. Summary of care provided to patient. Follow-up with: Benito Willett M.D., Urology, , [address] [place] [address], [id number] Follow up. Call for the next available appointment. Reason for referral: evaluation, treatment and see your PCM for referral to Urology, evaluate Hematuria and Micurition Syncope. Summary of care provided to patient.(Electronically signed by PERLA Cisse 10/19/2020 21:52) Name Value Range Interpretation Code Description Data [facility] rce(s) Supporting Document(s) ID Date Data Source [id number] 10/19/2020 01:24:00 PM EST [facility] Name Value Range Interpretation Code Description Data Marifer rce(s) Supporting Document(s) TROPONIN T <0.01 NG/ML 0.00 - 0.10 [facility]spital TROPONIN T0.1 ng/ml Recommended as the c linical threshold value forTroponin T. ID Date Data Source [id number] 10/19/2020 12:33:00 PM [facility] Name Value Range Interpretation Code Description Data [facility](s) Supporting Document(s) COMPREHENSIVE METABOLIC PANEL [facility] COMPREHENSIVE METABOLIC PANEL Sodium [Moles/volume] in Serum or Plasma 140 mEq/L 134 - 153 [facility] Potassium [Moles/volume] in Serum or Plasma 4.1 mEq/L 3.6 - 5.0 [facility] Chloride [Moles/volume] in Serum or Plasma 104 mEq/L 98 - 107 [facility] Carbon dioxide, total [Moles/volume] in Serum or Plasma 33 MEQ/L 22 - 30 H [facility] Glucose [Mass/volume] in Serum or Plasma 66 MG/DL 65 - 110 [facility] BUN 13 MG/DL 7 - 21 [facility] Creatinine [Mass/volume] in Serum or Plasma 1.0 MG/DL 0.7 - 1.5 [facility] BUN/CREAT 13 8 - 27 [facility] al Protein [Mass/volume] in Serum or Plasma 8.0 G/DL 6.3 - 8.2 [facility] Albumin [Mass/volume] in Serum or Plasma 4.4 G/DL 3.9 - 5.0 [facility] Globulin [Mass/volume] in Serum by calculation 3.6 GM/DL 2.4 - 3.2 H [facility] A/G RATIO 1.2 0.8 - 2.0 [facility] Calcium [Mass/volume] in Serum or Plasma 10.0 MG/DL 8.4 - 10.2 [facility] Bilirubin.total [Mass/volume] in Serum or Plasma <0.7 MG/DL 0.2 - 1.3 [facility] Alkaline phosphatase [Enzymatic activity/volume] in Serum or Plasma 63 U/L 38 - 126 [facility] Aspartate aminotransferase [Enzymatic activity/volume] in Serum or Plasma 28 U/L 5 - 40 [facility] Alanine aminotransferase [Enzymatic activity/volume] in Seru m or Plasma 30 U/L 7 - 56 [facility] Anion gap 3 in Serum or Plasma 3.0 mmol/L 8.0 - 16.0 L [facility] AGE 30 yrs [facility] al NON-AA GFR >60 mL/min [facility] AFR AMER GFR >60 mL/min [facility] Male GFR In terprentation 20-49 yrs >60 mL/min Normal 50-59 yrs >56 mL/min Normal 60-69 yrs >49 mL/min Normal 70-79yrs >42 mL/min Normal 80 and above >35 mL/min Normal Female GFR Interpretation 20-39 yrs >60 mL/min Normal 40-49 yrs >58 mL/min Normal 50-59 yrs >51 mL/min Normal 60-69 yrs >45 mL/min Normal 70-79 yrs >39 mL/min Normal 80 and above >32 mL/min Normal ID Date Data Source [id number] 10/19/2020 12:33:00 PM [facility] Name Value Range Interpretation Code Description Data Mraifer rce(s) Supporting Document(s) Thyrotropin [Units/volume] in Serum or Plasma by Detec tion limit <= 0.05 mIU/L 1.61 uIU/mL 0.47 - 5.01 [facility] ID Date Data Source [id number] 10/19/2020 12:33:00 PM [facility] Name Value Range Interpretation Code Description Data Marifer rce(s) Supporting Document(s) Magnesium [Mass/volume] in Serum or Plasma 2.1 MG/DL 1.7 - 2.2 [facility] ID Date Data Source [id number] 10/19/2020 12:33:00 PM EST [facility] Name Value Range Interpretation Code Description Data Marifer rce(s) Supporting Document(s) Lipase [Enzymatic activity/volume] in Serum or Plasma 35 U/L 13 - 60 [facility] ID Date Data Source [id number] 10/19/2020 11:57:00 AM EST [facility] Name Value Range Interpretation Code Description Data Marifer rce(s) Supporting Document(s) Prothrombin time (PT) 14.6 SECONDS 11.0 - 15.5 [facility] INR in Platelet poor plasma by Coagulation assay 1.08 0.93 - 1. 23 [facility] aPTT in Blood by Coagulation assay 28.1 SECONDS 24.8 - 36.7 [facility] \\BLDo\\INR INTERPRETATION\\BLDx\\ Therapeutic range for Coumadin and related oral anticoagulants. - International Normalized Ratio (INR): 2.0 - 3.0 for Venous Thrombosis, Pulmonary Embolus, Tissue heart valves, Acute AR Atrial Fibrillation, Valvular heart disease and recurrent Systemic Embolism. - International Normalized Ratio (INR): 2.5 - 3.5 for Mechanical Prosthetic valve. ID Date Data Source [id number] 10/19/2020 11:56:00 AM [facility] Name Value Range Interpretation Code Description Data Marifer rce(s) Supporting Document(s) CBC W/AUTOMATED DIFF [facility] COMPLETE BLOOD COUNT Leukocytes [#/volume] in Blood by Automated count 4.6 10^3/uL 4.2 - 1 1.0 [facility] Erythrocytes [#/volume] in Blood by Automated count 4.94 10^6/uL 4. 50 - 6.30 [facility] Hemoglobin [Mass/volume] in Blood 14.6 g/dL 14.0 - 16.0 [facility] Hematocrit [Volume Fraction] of Blood by Automated count 43.6 % 4 1.0 - 51.0 [facility] Erythrocyte mean corpuscular volume [Entitic volume] by Auto mated count 88.3 fL 80.0 - 94.0 [facility] Erythrocyte mean corpuscular hemoglobin [Entitic mass] by Automated count 29.6 pg 27.0 - 34.0 [facility] Erythrocyte mean corpuscular hemoglobin concentration [Mass/volume] by Automated count 33.5 g/dL 31.0 - 36.0 [facility] Erythrocyte distribution width [Ratio] by Automated count 12.2 % 11.5 - 14.8 [facility] Platelets [#/volume] in Blood by Automated count 196 10^3/uL 150 - 45 0 [facility] Platelet mean volume [Entitic volume] in Blood by Automated count 10.4 fL 7.4 - 10.4 [facility] Neutrophils/100 leukocytes in Blood by Automated count 46.2 % 37. 0 - 80.0 [facility] Lymphocytes/100 leukocytes in Blood by Manual count 41.5 % 25.0 - 40.0 H [facility] Monocytes/100 leukocytes in Blood by Automated count 9.2 % 3.0 - 8.0 H [facility] Eosinophils/100 leukocytes in Blood by Automated count 2.0 % 0.0 - 7.0 [facility] Basophils/100 leukocytes in Blood by Automated count 0.7 % 0.0 - 2.0 [facility] %IG 0.4 % 0.0 - 0.0 [facility] %NRBC 0.0 % 0.0 - 0.0 [facility] al Neutrophils [#/volume] in Blood by Automated count 2.12 10^3/uL 2.00 - 6.90 [facility] Lymphocytes [#/volume] in Blood by Automated count 1.90 10^3/uL 0.60 - 3.40 [facility] Monocytes [#/volume] in Blood by Automated count 0.42 10^3/uL 0.00 - 0.90 [facility] Eosinophils [#/volume] in Blood by Automated count 0.09 10^3/uL 0.00 - 0.70 [facility] Basophils [#/volume] in Blood by Automated count 0.03 10^3/uL 0.00 - 0.20 [facility] #IG 0.02 10^3/uL 0.00 - 0.10 [facility] #NRBC 0.00 10^3/uL 0.00 - 0.00 [facility] MANUAL DIFF NOT INDICATED [facility] RBC MORPH NOT INDICATED [facility] ID Date Data Source [id number] 10/19/2020 11:52:00 AM [facility] Name Value Range Interpretation Code Description Data Marifer rce(s) Supporting Document(s) Lactate [Moles/volume] in Serum or Plasma 1.0 MMOL/L 0.2 - 2.2 [facility] ID Date Data Source [id number] 10/19/2020 12:26:00 PM EST [facility] Name Value Range Interpretation Code Description Data Marifer rce(s) Supporting Document(s) URINALYSIS [facility] UR[facility]ALYSIS SOURCE R [facility] COLOR yellow NORMAL: Yellow [facility] CLARITY clear NORMAL: Clear [facility] Specific gravity of Urine by Test strip 1.020 1.001 - 1.030 [facility] pH 7 5 - 9 [facility] Glucose [Mass/volume] in Urine by Test strip NORM NORMAL: Negat [facility] Bilirubin.total [Presence] in Urine by Test strip NEG NORMAL: Negative [facility] Ketones [Presence] in Urine by Test strip NEG NORMAL: Negative [facility] Protein [Mass/volume] in Urine by Test strip NEG NORMAL: Negat [facility] Nitrite [Presence] in Urine by Test strip NEG NORMAL: Negative [facility] BLOOD 10 NORMAL: Negative A [facility] Leukocyte esterase [Presence] in Urine by Test strip NEG DELANO L: Negative [facility] Urobilinogen [Mass/volume] in Urine by Test strip NOR less fidelia n 1.0 mg/dL [facility] MICROSCOPIC See Below [facility] Erythrocytes [#/volume] in Urine by Test strip 1 - 3 NORMAL: NON E SEEN [facility] ID Date Data Source [id number] 09/18/2020 08:57:00 AM [facility] [address] [place] [address] PHONE: [phone] FAX: [phone] Name .................. : TOSIN Rivera Acct Number.................. : [id number] ROOM. ................. : TR-07 MR Number ................... : [id number] Stay type ............. : E/R Discharge Date......... ... : Admit Date ......... : 09/17/20 Admit Phys .................... : CHERYL WADE Date of ....... : 1990 Family Phys ................... : Phone .................. : [phone] Age ................................ : 30 Film# .................. .:[id number] Sex ................................. : M Unsigned transcriptions are preliminary reports and do not represent a medical or legal document CT LUMBAR SP W/O CONT [id number] COMPLETE:09/17/20 09:16 [id number] Reason(s): exacerbation of left lower back pain, soft tissue swelling, spas CT OF THE LUMBAR SPINE WITHOUT CONTRAST, 09/17/20: FINDINGS: Examination reveals no evidence of an acute fracture or subluxation. There is mild to moderate disc bulges identified at L3-4, L4-5, and L5-S1, most significant at the L4-5 level. No evidence of central canal stenosis is identified. No distinct abnormality is identified in the paralumbar soft tissues. IMPRESSION: Mild to moderate disc bulges at L3-4, L4-5, and L5-S1, most significant at L4-5. No central canal stenosis is identified with no acute findings. No discrete soft tissue lesions are identified. While performing the above CT examination, radiation dose reduction was accomplished utilizing automated exposure control, adjusting of the mA and kV based on the patient's body size and/or the use of imperative reconstructive techniques. CT dose 349 mGycm. Examination dictated by PERLA Vaca. Examination was reviewed with Nimco Bradley MD, radiologist at the time of this dictation. Electronically Reviewed and Signed By Nimco Bradley MD , 09/18/20 08:57, KGG Transcribe Initials: SSR, Transcribe Date: 09/17/20 11:38, Dictation Date: Copy for: EMERGENCY DEPT via [facility] Copy for: [address] REC [address] [place] [address] [place] [address] PHONE: [phone] FAX: [phone] Name .................. : TOSIN MARVIN Cristino Acct Number.................. : [id number] ROOM. ................. : TR-07 MR Number ................... : [id number] Stay type ............. : E/R Discharge Date......... ... : Admit Date ......... : 09/17/20 Admit Phys .................... : CHERYL OLVERA Date of ....... : 1990 Family Phys ................... : Phone .................. : [phone] Age ................................ : 30 Film# .................. .:[id number] Sex ................................. : M Unsigned transcriptions are preliminary reports and do not represent a medical or legal document CT LUMBAR SP W/O CONT [id number] COMPLETE:09/17/20 09:16 [id number] Reason(s): exacerbation of left lower back pain, soft tissue swelling, spas DISCHARGED Page 2 of 2 Name Value Range Interpretation Code Description Data Marifer rce(s) Supporting Document(s) ID Date Data Source [id number] 09/17/2020 08:46:00 AM EST [facility] 1 OrderSheet [facility] Emergency Department [address] [place] [address] Phone #: [phone]- [phone] 09/17/2020 08:44 Patient: MARVNI LEAHY Sex: M : 1990 Age: 30yWEIGHT:88.4 kg (S) HEIGHT:68 inches (S) BMI:29.6ALLERGIES: SeafoodCHIEF COMPLAINT: chronic back pain, back painDIAGNOSIS: Lumbar sprainLAB ORDERSOrder Description Priority Entered Acknowledged InitialedDIAGNOSTIC STUDY ORDERSOrder Description Priority Entered Acknowledged InitialedCT LUMBAR SP STAT 09:16 09/17/2020 09:19 Sal Frank/O CONT Brant Luna RN(Oxygen?(No)) Bharat;(IV?(No)) NOTES: soft tissue enhancement, windows, please Reason for Study: e xacerbation of left lower back pain, soft tissue swelling, spasm?MEDICATION/IV/DRIP/FLUID ORDERSOrder Description Priority Entered Acknowledged InitialedMorphine IM 4 mg 09:16 09/17/2020 09:24 Velma Frank(HIGH ALERT Brant Luna RNMEDICATION) Bharat;Lidocaine Patch 09:16 09/17/2020 09:24 Brown, LisaTopical (Patch 5 %) Brant Luna RN1 Patch (On for 12 M.D.;hours, off for 12hours.)GENERAL ORDERSOrder Description Priority Entered Acknowledged Initialed[Electronically signed by Brant Luna M.D. (12:45 09/17/2020)][Electronically signed by Tom English R.N. (14:16 09/17/2020)][Electronically locked by Tom English R.N. (14:16 09/17/2020)] Name Value Range Interpretation Code Description Data Marifer rce(s) Supporting Document(s) ID Date Data Source [id number] 09/17/2020 08:46:00 AM EST [facility] 1 Medication Reconciliation Report [facility] Emergency Department [address] [place] [address] Phone #: [phone]- [phone] 09/17/2020 08:44 Patient: MARVIN LEAHY Sex: M : 1990 Age: 30yWeight: 88.4 kgHeight/Length: 68 in.BMI: 29.6ALLERGIES: SeafoodThe patient's Home Medications are listed below:CONTINUE TAKING THE FOLLOWING MEDICATIONS: Apixaban Oral (5 mg) 1 tablet, 2x a day Cyclobenzaprine HCl Oral 10 mg, daily Lidocaine External, daily Methocarbamol Oral 500 mg, daily, prn,at bedtime Trolamine Salicylate External, daily Tylenol Oral 650 mg, prnThe source(s) of the original Home Medication information:patientThe following Medications were given to the patient in the Emergency Department:Morphine [IM] IM 4 mg, administered: 09/17/2020 9:24:00 AMLidocaine Patch Transdermal 1 patch, administered: 09/17/2020 9:24:00 AMThe following Medications were prescribed to the patient:hydrocodone 5 mg-acetaminophen 325 mg tablet Take 1 tablet four times a day as needed for pain for 3days -- Dispense 12 tablet. Refills: 0. Substitution permi tted.Pharmacy - [facility] [phone] ; [place] [id number]. . -- Brant Luna M.D. Name Value Range Interpretation Code Description Data [facility](s) Supporting Document(s) ID Date Data Source [id number] 09/17/2020 08:46:00 AM [facility] 1 Medication Administration Record [facility] Emergency Department [address] [place] [address] Phone #: ext- [phone] 09/17/2020 08:44 Patient: MARVIN LEAHY Sex: M : 1990 Age: 30yWeight: 88.4 kgHeight/Length: 68 inBMI: 29.6ALLERGIES: Seafood Date/Time Medication Administered Medication OrderedGiven MORPHINE [IM] Morphine IM 4 mg (HIGH ALERT09:24 09/17/2020 Dose: 4 mg IM MEDICATION)Velma Frank, RNGiven LIDOCAINE PATCH Lidocaine Patch Topical (Patch 509:24 09/17/2020 Dose: 1 patch Transdermal %) 1 Patch (On for 12 hours, Velma Saldaña RN for 12 hours.) Name Value Range Interpretation Code Description Data [facility](s) Supporting Document(s) ID Date Data Source [id number] 09/17/2020 08:46:00 AM [facility] 1 General Instructions [facility] Emergency Department [address] [place] [address] Phone #: ext- [phone] 09/17/2020 08:44 Patient: MARVIN LEAHY Sex: M : 1990 Age: 30yChronic lumbar strain (Exacerbation of).INSTRUCTIONSApply ice for 30 minutes four times a day for two days followed by moist heat 30 minutes four times a dayfor five days. Don't apply ice directly to skin, don't use while asleep and don't use high setting on heatingpad. Limit lifting until well. No strenuous activity until better. Return to work in three days.Warnings: GENERAL WARNINGS: Return or contact your physician immediately if your conditionworsens or changes unexpectedly, if not improving as expected, or if other problems arise.SPECIFICALLY, return if you develop weakness of the foot or leg, numbness, tingling, pain or incontinenceof feces (loss of bowel control) or urine (loss of bladder control).Your Current Medications: Your current home medications have been reviewed.CONTINUE TAKING THE FOLLOWING MEDICATIONS:Apixaban Oral : Tablet 5 mg, 1 tablet 2x a day.Cyclobenzaprine HCl Oral : 10 mg daily.Lidocaine External : daily.Methocarbamol Oral : 500 mg daily, prn, at bedtime.Trolamine Salicylate External : daily.Tylenol Oral : 650 mg, prn.Prescription Medications:hydrocodone 5 mg-acetaminophen 325 mg tablet Take 1 tablet four times a day as needed for pain for 3days -- Dispense 12 tablet. Refills: 0. Substitution permitted.Pharmacy - [facility] [phone] ; [place] [address]. .Follow-up:Return to the emergency department as needed. Follow up with your healthcare provider in two dayseven if well. Call for an appointment. Reason for referral: evaluation and treatment. Summary of careprovided to patient via paper.Understanding of the discharge instructions verbalized by patient. Expected course of injury, dischargeinstructions, activity level, diet, prescriptions x1, follow-up appointment and risks and benefits of treatmentreviewed with patient and understanding verbalized. Agrees to plan of care. 2 General Instructions [facility] Emergency Department [address] [place] [address] Phone #: ext- [phone] 09/17/2020 08:44 Patient: MARVIN LEAHY Sex: M : 1990 Age: 30y ADDITIONAL INFORMATIONBack Pain (Acute or Chronic)Back pain is one of the most common problems. The good news is that most people feel better in 1 to2 weeks, and most of the rest in 1 to 2 months. Most people can remain active.People who have pain describe it differently--not everyone is the same. The pain can be sharp, stabbing, shooting, aching, cramping or burning. Movement, standing, bending, lifting, sitting, or walking may worsen pain. It can be localized to one spot or area, or it can be more generalized. It can spread or radiate upwards, to the front, or go down your arms or legs (sciatica). It can cause muscle spasm. 3 General Instructions [facility] Emergency Department [address] [place] [address] Phone #: ext- [phone] 09/17/2020 08:44 Patient: MARVIN LEAHY Sex: M : 1990 Age: 30yMost of the time, mechanical problems with the muscles or spine cause the pain. Mechanicalproblems are usually caused by an injury to the muscles or ligaments. While illness can cause backpain, it is usually not caused by a serious illness. Mechanical problems include: Physical activity such as sports, exercise, work, or normal activity Overexertion, lifting, pushing, pulling incorrectly or too aggressively Sudden twisting, bending, or stretching from an accident, or accidental movement Poor posture Stretching or moving wrong, without noticing pain at the time Poor coordination, lack of regular exercise (check with your doctor about this) Spinal disc disease or arthritis StressPain can also be related to , or illness like appendicitis, bladder or kidney infections, pelvicinfections, and many other things.Acute back pain usually gets better in 1 to 2 weeks. Back pain related to disk disease, arthritis in thespinal joints or spinal stenosis (narrowing of the spinal canal) can become chronic and last for monthsor years.Unless you had a physical injury (for example, a car accident or fall) X- rays are usually not needed forthe initial evaluation of back pain. If pain continues and does not respond to medical treatment,X-rays and other tests may be needed.Home careTry these home care recommendations: When in bed, try to find a position of comfort. A firm mattress is best. Try lying flat on your back with pillows under your knees. You can also try lying on your side with your knees bent up towards your chest and a pillow between your knees. At first, do not try to stretch out the sore spots. If there is a strain, it is not like the good soreness you get after exercising without an injury. In this case, stretching may make it worse. Don't sit for long periods, as in a long car ride or during other travel. This puts more stress on the lower back than standing or walking. During the first 24 to 72 hours after an acute injury or flare up of chronic back pain, apply an ice pack to the painful area for 20 minutes and then remove it for 20 minutes. Do this over a period of 60 to 90 minutes or several times a day. This will reduce swelling and pain. Wrap the 4 General Instructions [facility] Emergency Department [address] [place] [address] Phone #: ext- [phone] 09/17/2020 08:44 Patient: MARVIN LEAHY Sex: M : 1990 Age: 30y ice pack in a thin towel or plastic to protect your skin. You can start with ice, then switch to heat. Heat (hot shower, hot bath, or heating pad) reduces pain and works well for muscle spasms. Heat can be applied to the painful area for 20 minutes then remove it for 20 minutes. Do this over a period of 60 to 90 minutes or several times a day. Do not sleep on a heating pad. It can lead to skin arias or tissue damage. You can alternate ice and heat therapy. Talk with your doctor about the best treatment for your back pain. Therapeutic massage can help relax the back muscles without stretching them. Be aware of safe lifting methods and do not lift anything without stretching first.MedicinesTalk to your doctor before using medicine, especially if you have other medical problems or are takingother medicines. You may use [id number] medicine as directed on the bottle to control pain, unless another pain medicine was prescribed. If you have chronic conditions like diabetes, liver or kidney disease, stomach ulcers, or gastrointestinal bleeding, or are taking blood thinners, talk to your doctor before taking any medicine. Be careful if you are given a prescription medicines, narcotics, or medicine for muscle spasms. They can cause drowsiness, affect your coordination, reflexes, and judgement. Do not drive or operate heavy machinery.Follow-up careFollow up with your healthcare provider, or as advised.A radiologist will review any X-rays that were taken. Your provide will notify you of any new findingsthat may affect your care.Call [phone] if any of the following occur: Trouble breathing Confusion Very drowsy or trouble awakening Fainting or loss of consciousness 5 General Instructions [facility] Emergency Department [address] [place] [address] Phone #: [phone]- [phone] 09/17/2020 08:44 Patient: MARVIN LEAHY Sex: M : 1990 Age: 30y Rapid or very slow heart rate Loss of bowel or bladder controlWhen to seek medical adviceCall your healthcare provider right away if any of these occur: Pain becomes worse or spreads to your legs Weakness or numbness in one or both legs Numbness in the groin or genital area [phone] [employer]. [address] [place] [address], [place] [address]. All rights reserved. This information is not intended as asubstitute for professional medical care. Always follow your healthcare professional's instructions. You have been given the following additional information: Back Pain (Acute or Chronic) Limit lifting until well. No strenuous activity until better. Return to work in three days.(Electronically signed by Brant Luna M.D. 09/17/2020 12:45) Name Value Range Interpretation Code Description Data Marifer rce(s) Supporting Document(s) ID Date Data Source [id number] 09/17/2020 08:46:00 AM EST [facility] 1 Clinical Report - Nurses [facility] Emergency Department [address] [place] [address] Phone #: ext- [phone] 09/17/2020 08:44 Patient: MARVIN LEAHY Sex: M : 1990 Age: 30yTRIAGEArrived by EMS. Historian: patient.Acuity: LEVEL 4.Chief Complaint: BACK PAIN.Alert. No acute distress.Onset. (3 DAYS AGO). ( Pt states he had a back injury about a year ago, has had intermittent low backpain since then, worsened about 3 days ago, no new injury. Pt states he was taking Ibuprofen for his painbut because he got a DVT to left calf on 08/07/2020 and is on blood thinners and therefore had to stoptaking ibuprofen. Pt has referral to ortho and PT but has not been able to attend yet.). He has hadtrouble walking. He has had left leg pain. 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 Sepsis Screen negative. No suspected or confirmed signs ofinfection present. (08:53 09/17/2020). --08:54 09/17/20 Jennifer Nagy R.N.08:46 09/17/20. BP: 122/73. MAP: 89. HR: 66. RR: 18. O2 saturation: 100% on room air. Temp: 98.1 F.Pain level now: 07/19. --08:54 09/17/20 Jennifer Nagy R.N.Weight: 88.4 kg stated. Height/Length: 68 inches Per Patient. BMI: 29.6. --08:44 09/17/20 Jennifer Nagy R.N.MedicationsApixaban Oral (Tablet 5 mg) 1 tablet, 2x a day. --08:49 09/17/20 Jennifer Nagy R.N. Cyclobenzaprine HCl Oral 10 mg, daily. --08:50 09/17/20 Jennifer Nagy R.N. Trolamine Salicylate External, daily. --08:50 09/17/20 Jennifer Nagy R.N. Lidocaine External, daily. --08:50 09/17/20 Jennifer Nagy R.N. Methocarbamol Oral 500 mg, daily as needed, at bedtime. --08:51 09/17/20 Jennifer Nagy R.N. Tylenol Oral 650 mg, as needed. --08:51 09/17/20 Jennifer Nagy R.N.AllergiesSeafood. --08:51 09/17/20 Jennifer Nagy R.N.PROBLEMS:Back Pain. --08:51 09/17/20 Jennifer Nagy R.N.DVT - Deep Venous Thrombosis: Onset 08/07/2020. --09:21 09/17/20 Brant Luna M.D.The following entry was modified by Brant Luna M.D., 09:21 09/17/20 2 Clinical Report - Nurses [facility] Emergency Department [address] [place] [address] Phone #: ext- [phone] 09/17/2020 08:44 Patient: MARVIN LEAHY Sex: M : 1990 Age: 30y DVT - Deep Venous Thrombosis. --08:51 09/17/20 Jennifer Nagy R.N.. Medication/allergy information source: the patient. --08:54 09/17/20 Jennifer Nagy R.N. ADDITIONAL SURGERIES: no known surgeries. History PAST MEDICAL HX: Tetanus status: up-to-date. Immunizations: up-to-date. SOCIAL HX: Never smoker. No alcohol use or drug use. He was offered HIV testing but declined. Patient education was provided. He was offered hepatitis C testing but declined. Patient education was provided. ( COVID screen negative). He has not traveled outside the [place] Infectious disease exposure: No infectious disease exposure. Patient is not a known carrier of tuberculosis, hepatitis, HIV, MRSA or VRE. Patient is not a known carrier of CRE. SELF HARM ASSESSMENT: Self harm assessment was performed. The patient answered "no" to the question(s) "Do you have thoughts of harming or killing yourself?" and "Do you have a plan for harming or killing yourself?". ABUSE ASSESSMENT: Abuse assessment. The patient had positive responses to the question(s) "Do you feel safe in your home?". Abuse denied. No suspicion of abuse. No report of abuse. NUTRITIONAL RISK ASSESSMENT: The nutritional risk assessment revealed no deficiencies. FUNCTIONAL ASSESSMENT: Functional assessment: no impairments noted. LEARNING NEEDS ASSESSMENT: The learning needs assessment revealed no barriers. FALL RISK ASSESSMENT: Fall risk assessment completed. No risk factors identified. SKIN INTEGRITY ASSESSMENT: Skin integrity risk assessment completed. No skin integrity risk identified. --08:54 09/17/20 Jennifer Nagy R.N. Interventions Identification band on patient. --08:54 09/17/20 Jennifer Nagy R.N.PHYSICAL ASSESSMENTTo room via stretcher. Patient gowned.GENERAL / NEURO / PSYCH: Alert. Oriented X 4. Appears in pain.RESPIRATORY: Respirations not labored. Chest nontender. Breath sounds within normal limits.CVS: Capillary refill less than 2 seconds.GI / : Abdomen soft and nontender. Bowel sounds within normal limits. ( Pt denies incontinence).No CVA tenderness.EXTREMITIES: Sensation intact in extremities. ROM of extremities within normal limits. ( pedal pulses 3 Clinical Report - Nurses [facility] Emergency Department [address] [place] [address] Phone #: ext- [phone] 09/17/2020 08:44 Patient: MARVIN LEAHY Sex: M : 1990 Age: 30y present bilaterally, +2). BACK: Normal inspection of the neck and back. Limited ROM of the back. Vertebral point tenderness over the lumbar spine (radiates to left leg). No soft tissue tenderness. --08:56 09/17/20 Jennifer Nagy R.N.NURSING PROGRESS NOTESPatient gowned. Reassurance given. Three patient identifiers checked. Call light placed in reach. Siderails up x 2. Bed placed in lowest position. Brakes of bed on. Patient ready for evaluation- ED physiciannotified. --08:56 09/17/20 Jennifer Nagy R.N. 09:21 09/17/20. BP: 120/59. MAP: 79. HR: 60. RR: 16. O2 saturation: 99%. --09:21 09/17/20 Verónica Hallman ED, ER Tech1 09:24 09/17/2020 Morphine IM 4 mg given. Given in the left deltoid. Allergies verified and confirmed 5 rights. Information reviewed with patient including reason for taking this medication and sedative warning. Verbalizes understanding. --09:24 09/17/20 Velma Frank RN 09:24 09/17/2020 Lidocaine Patch Transdermal 1 patch applied. Allergies verified and confirmed 5 rights. Information reviewed with patient including reason for taking this medication. Verbalizes understanding. --09:24 09/17/20 Velma Frank RN Patient transported to radiology by wheelchair with optometric technologist. --09:35 09/17/20 Jennifer Nagy R.N. Patient returned by wheelchair with optometric technologist. --09:45 09/17/20 Jennifer Nagy R.N. 09:58 09/17/2020 Morphine IM Response: no adverse reaction pain is improving. Symptoms have improved the patient feels better. --09:58 09/17/20 Jennifer Ngay R.N. 09:58 09/17/2020 Lidocaine Patch Transdermal Response: no adverse reaction pain is improving. Symptoms have improved the patient feels better. --09:58 09/17/20 Jennifer Nagy R.N. Reassessment acuity: LEVEL 4. Rounding: Pain: assessed pain level. Position: states comfortable. Proximity of possessions / care items: call light within easy reach. Set expectations: advised patient of rounding protocol timing and asked if they needed anything else at this time. Reassessment after medication administered. Pain still present but improving. He reports no complaints and he is calm and resting quietly. GENERAL / NEURO / PSYCH: Alert. Oriented X 4. RESPIRATORY: No respiratory distress. BACK: The patient reports back pain is sti ll present but improving. --09:58 09/17/20 Jennifer Nagy R.N. 09:56 09/17/20. BP: 133/76. MAP: 95. HR: 64. RR: 18. O2 saturation: 100% on room air. Pain level now 10. --09:58 09/17/20 Jennifer Nagy R.N. 4 Clinical Report - Nurses [facility] Emergency Department [address] [place] [address] Phone #: ext- [phone] 09/17/2020 08:44 Patient: MARVIN LEAHY Sex: M : 1990 Age: 30y 09:59 09/17/20. BP: 133/72. MAP: 92. HR: 66. RR: 16. O2 saturation: 100%. --09:59 09/17/[address] [facility] 11:03 09/17/20. Reassurance given. Reassessment acuity: LEVEL 4. Reassessment after medication administered. No adverse reaction. Pain gone now. He reports no complaints, he is calm and resting quietly and he has had no adverse reaction. Overall patient status is improved- he states feels better. GENERAL / NEURO / PSYCH: Alert. Orie nted X 4. RESPIRATORY: No respiratory distress. Breath sounds normal. SKIN: Skin is warm and dry. Skin color within normal limits. Two patient identifiers checked. Call light placed in reach. Side rails up x 2. Bed placed in lowest position. Brakes of bed on. --11:03 09/17/20 Tom English R.N. 11:06 09/17/20. BP: 131/69. MAP: 89. HR: 66. RR: 16. O2 saturation: 100%. --11:06 09/17/[address] [facility] Tech1.DISPOSITION / DISCHARGE 12:07 09/17/20. BP: 129/84. MAP: 99. HR: 57. RR: 16. O2 saturation: 99%. Temp: 98.1 F. Pain level now: 01/16. --12:07 09/17/[address] [facility] Tech1 12:12 09/17/20. Departure time: 12:18 09/17/2020. Condition at departure: improved and stable. The goals identified in the patient's plan of care were met. Fall risk assessment completed. No risk factors identified. No learning barriers present. Discharge instructions provided and reviewed with the patient. Reviewed warnings. Reviewed medication(s) side effects, precautions, dosing and course information. Pre scription(s) sent electronically to pharmacy. Treatments reviewed. Reviewed referral to a primary care physician. Work note given. Patient verbalized understanding. Written instructions provided in [place]. The patient was discharged by the physician. He was discharged home. He left ambulatory and via private vehicle. Patient driving. --12:18 09/17/20 Tom English R.N. Reviewed rest and ice instructions. Activity restrictions (rest) reviewed. --12:20 09/17/20 Tom English R.N.Locked/Released at 09/17/2020 14:16 by Tom English R.N. Name Value Range Interpretation Code Description Data Marifer rce(s) Supporting Document(s) ID Date Data Source [id number] 09/17/2020 08:46:00 AM EST [facility] 1 Clinical Report - Physicians/Mid Levels [facility] Emergency Department [address] [place] [address] Phone #: ext- [phone] 09/17/2020 08:44 Patient: MARVIN LEAHY Sex: M : 1990 Age: 30y Time Seen: 09:12 09/17/2020; initial patient contact. Arrived- By ambulance. Historian- patient. Disposition decision: 11:58 09/17/2020.HISTORY OF PRESENT ILLNESS Chief Complaint: BACK PAIN and CHRONIC BACK PAIN. Onset- 3 days ago and it is still present. It was gradual in onset and has been constant. It is described as being severe and in the area of the left lower lumbar spine and lower lumbar spine. The quality is noted to be dull, aching and "pain". No radiation. Modifying factors- worsened by walking or rotation of the head or body. Not relieved by anything. No bladder dysfunction, bowel dysfunction, sensory loss or motor loss. Patient notes the possibility of an injury. Mechanism of injury- he was bending. Similar symptoms previously. Patient has had similar symptoms chronically. Worse from previously. 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 Recent medical care: Not recently seen/assessed.REVIEW OF SYSTEMSNo fever, chills, eye irritation, difficulty with urination or urinary frequency. No hematuria, skin rash,headache, depression or sore throat. No cough, difficulty breathing, chest pain, abdominal pain ornausea. No vomiting, diarrhea, black stools or bloody stools. All other systems reviewed and arenegative.PAST HISTORYSee nurses notes. Problems: DVT - Deep Venous Thrombosis. Back Pain. Additional Surgeries: no known surgeries. Medications: Tylenol Oral 650 mg, as needed. Methocarbamol Oral 500 mg, daily as needed, at bedtime. Lidocaine External, daily. Trolamine Salicylate External, daily. Cyclobenzaprine HCl Oral 10 mg, daily. Apixaban Oral (Tablet 5 mg) 1 tablet, 2x a day. Allergies: 2 Clinical Report - Physicians/Mid Levels [facility] Emergency Department [address] [place] [address] Phone #: ext- [phone] 09/17/2020 08:44 Patient: MARVIN LEAHY Sex: M : 1990 Age: 30y Se[employer].SOCIAL HISTORYNever smoker. No alcohol use or drug use.ADDITIONAL NOTESThe nursing notes have been reviewed with agreement regarding the chief complaint, HPI, ROS, PMH andpatient medications and allergies.PHYSICAL EXAMVital Signs: 09/17/2020 09:21 BP: 120/59. MAP: 79. HR: 60. RR: 16. O2 saturation: 99%.09/17/2020 08:46 BP: 122/73. MAP: 89. HR: 66. RR: 18. O2 saturation: 100% on room air. Temp: 98.1 F.Pain level now: 07/19. Have been reviewed. Oxygen saturation normal.Appearance: Alert. Appears to be in pain. Patient in mild d istress. Distress appears due to pain.HEENT: Normal external inspection.Eyes: Pupils equal, round and reactive to light.ENT: Ears normal. Pharynx normal.Neck: Normal inspection. Neck nontender. Painless ROM.CVS: Heart sounds normal. Pulses normal.Respiratory: No respiratory distress. Painless inspiration. Breath sounds normal.Abdomen: No visible injury. Soft and nontender. Bowel sounds normal. No organomegaly. No mass.Femoral pulses equal.Back: Normal inspection. Mild muscle spasm of the left posterior back. Severe soft tissue tenderness inthe left lower lumbar area. Limited ROM in the back- in the lumbar spine: decreased flexion, extension,right lateral bending and left lateral bending.Skin: Skin warm and dry. Normal skin color. No rash. Normal skin turgor.Extremities: Extremities exhibit normal ROM. Extremities nontender.Neuro: Oriented X 3. Mood/affect normal. No motor deficit. No weakness. No sensory deficit. Nosensory deficit. Straight leg raising: negative on the right and negative on the left. Reflexes normal.Reflex exam: DTRs otherwise normal.LABS, X-RAYS, AND EKGCT L-Spine: No acute findings. Soft tissue normal. No fracture. No bony lesion. The study wasinterpreted by the radiologist. Interpretation time: 09:52 09/17/2020.PROGRESS AND PROCEDURESCourse of Care: 11:57 09/17/20. CT LS spine w/o results nml; pt doing better; will d/c home w instructions;pt understands and agrees. Patient counseled in person regarding the patient's stable condition, test results, diagnosis and need for follow-up. Patient agrees with plan of care. Disposition: Condition: good and stable. Discharge decision based on the following: patient's condition is stable; patient's condition is improved; 3 Clinical Report - Physicians/Mid Levels [facility] Emergency Department [address] [place] [address] Phone #: ext- [phone] 09/17/2020 08:44 Patient: MARVIN LEAHY Sex: M : 1990 Age: 30y patient is ambulatory; patient is active; patient drinking fluids; patient's pain is controlled; patient's exam is improved; no abnormal test results; im proving condition on repeat evaluation; social support is good; transportation is available; follow-up is available; clinical impression is consistent with outpatient treatment.CLINICAL IMPRESSION Chronic lumbar strain (Exacerbation of).INSTRUCTIONS Apply ice for 30 minutes four times a day for two days followed by moist heat 30 minutes four times a day for five days. Don't apply ice directly to skin, don't use while asleep and don't use high setting on heating pad. Limit lifting until well. No strenuous activity until better. Return to work in three days. Warnings: GENERAL WARNINGS: Return or contact your physician immediately if your condition worsens or changes unexpectedly, if not improving as expected, or if other problems arise. SPECIFICALLY, return if you develop weakness of the foot or leg, numbness, tingling, pain or incontinence of feces (loss of bowel control) or urine (loss of bladder control). Your Current Medications: Your current home medications have been reviewed. CONTINUE TAKING THE FOLLOWING MEDICATIONS: Apixaban Oral : Tablet 5 mg, 1 tablet 2x a day. Cyclobenzaprine HCl Oral : 10 mg daily. Lidocaine External : daily. Methocarbamol Oral : 500 mg daily, prn, at bedtime. Trolamine Salicylate External : daily. Tylenol Oral : 650 mg, prn. Prescription Medications: hydrocodone 5 mg-acetaminophen 325 mg tablet Take 1 tablet four times a day as needed for pain for 3 days -- Dispense 12 tablet. Refills: 0. Substitution permitted. Pharmacy - [facility] [id number] ; [place] [id number]. . Follow-up: Return to the emergency department as needed. Follow up with your healthcare provider in two days even if well. Call for an appointment. Reason for referral: evaluation and treatment. Summary of care provided to patient via paper. Understanding of the discharge instructions verbalized by patient. Expected course of injury, discharge instructions, activity level, diet, prescriptions x1, follow-up appointment and risks and benefits of treatment reviewed with patient and understanding verbalized. Agrees to plan of care. 4 Clinical Report - Physicians/Mid Levels [facility] Emergency Department [address] [place] [address] Phone #: ext- [phone] 09/17/2020 08:44 Patient: MARVIN LEAHY Sex: M : 1990 Age: 30y(Electronically signed by Brant Luna M.D. 09/17/2020 12:45) Name Value Range Interpretation Code Description Data Marifer rce(s) Supporting Document(s) ID Date Data Source [id number] 08/05/2020 02:51:00 [place] [address] Patient Name: Marvin Leahy Exam Date: 08/05/20 : 1990 Ordering Doctor: Dee Encinas MD Attending Doctor: Dee Encinas MD CC: US Extremity Venous Doppler LEFT CLINICAL HISTORY: leg pain COMPARISON: None. TECHNIQUE: Multiple real-time linear array color-flow Doppler images of the deep venous system of the LEFT lower extremity were obtained. Duplex imaging with color flow Doppler and spectral analysis was used to study the deep venous system. Combination of compressibility and flow augmentation was utilized to assess patency. FINDINGS: Positive echogenic noncompressible thrombus in the left anterior tibial, peroneal veins and the mid medial calf veins. Limited visualization and evaluation of the posterior tibial vein. Flow is identified in the LEFT common femoral, superficial femoral, popliteal veins. IMPRESSION: Positive echogenic deep venous thrombosis in the left anterior tibial and peroneal veins, as well as the mid medial calf veins. Limited evaluation of the posterior tibial vein. Findings were discussed with Dee Encinas on 08/05/2020 at 2:59 PM EDT, with confirmation of receipt and understanding. Professional interpretation performed at [facility] . End of diagnostic report: [id number] Signed: Ilene Duong MD 08/05/20 1501 Interpreted by: Alber Duongribed by: Ilene Duong Name Value Range Interpretation Code Description Data Marifer rce(s) Supporting Document(s) ID Date Data Source [id number] 08/05/2020 12:44:00 PM EDT [facility] F[facility] For The Past 12 Hour s? N Name Value Range Interpretation Code Description Data Marifer rce(s) Supporting Document(s) WHITE BLOOD COUNT 6.31 10^3/uL 4.00-10.50 [facility] RED BLOOD COUNT 4.80 10^6/uL 4.30-5.80 N [facility] th HEMOGLOBIN 14.3 G/DL 13.0-17.5 N [facility] HEMATOCRIT 43.1 % 41.0-53.0 N [facility] MCV 89.8 FL 80.0-100.0 N [facility] MCH 29.8 PG 27.0-34.0 N [facility] MCHC 33.2 G/DL 32-36 N [facility] RDW 11.9 % 11.5-14.5 N [facility] PLATELET COUNT 147 10^3/uL 130-400 N [facility] MPV 10.1 FL 8.7-13.2 N [facility] GRAN % (AUTO) 54.6 % 42.0-75.0 N [facility] LYMPH % (AUTO) 32.6 % 20.0-51.0 N [facility] MONO % (AUTO) 10.3 % 2.0-15.0 N [facility] EOS % (AUTO) 1.7 % 0.0-11.0 N [facility] BASO % (AUTO) 0.5 % 0.0-2.0 N [facility] IG % (AUTO) 0.3 % 1.00-5.00 [facility] IG # (AUTO) 0.0 10^3/uL <0.5 [facility] GRAN # (AUTO) 3.44 10^3/uL 1.50-6.50 N [facility] LYMPH # (AUTO) 2.1 k/uL 1.0-5.0 N [facility] MONO # (AUTO) 0.65 k/uL 0.20-1.50 N [facility] EOS # (AUTO) 0.11 10^3/uL 0.00-1.10 N [facility] BASO # (AUTO) 0.03 10^3/uL 0.00-0.20 N [facility] ID Date Data Source [id number] 08/05[facility]2020 12:59[facility] s? N Name Value Range Interpretation Code Description Data Marifer rce(s) Supporting Document(s) SODIUM 141 MEQ/L 135-145 N [facility] POTASSIUM 4.5 MEQ/L 3.5-5.3 N [facility] CHLORIDE 104 MEQ/L 94-110 N [facility] CARBON DIOXIDE 32 MEQ/L 22-33 N [facility] ANION GAP 10 5-16 N [facility] BLOOD UREA NITRO 15 MG/DL 7-25 N [facility] CREATININE 0.9 MG/DL 0.6-1.4 N [facility] GFR > 90.0 ML/MIN [facility] Stage G1 - Normal or high kidney functi on The GFR is an estimate of the Glomerular Filtration Rate. It is an aid to assess a patient's renal function. It is not a conclusive diagnosis of kidney disease. GFR normal is >=90 The MDRD GFR calculation is considered valid between the ages of 18 and 75 years only. BUN/CREAT RATIO 16 8-36 [facility] GLUCOSE 70 MG/DL 70-100 [facility] CA 9.6 MG/DL 8.7-10.5 [facility] BILIRUBIN,TOTAL 0.8 MG/DL 0.1-1.3 [facility] AST 28 U/L 5-40 [facility] ALT 36 U/L 5-48 [facility] ALKALINE PHOSPHATASE 84 U/L 40-140 [facility] alth TOTAL PROTEIN 7.2 G/DL 5.9-8.3 N [facility] ALBUMIN 4.6 G/DL 3.0-5.1 [facility] GLOBULIN 2.6 G/DL 1.5-3.5 [facility] ALB/GLOB RATIO 1.8 G/DL 1.0-3.0 [facility] ID Date Data Source [id number] 08/05/2020 01:29:00 [facility] 12 Hour s? N Name Value Range Interpretation Code Description Data Marifer rce(s) Supporting Document(s) PROTHROMBIN TIME 12.4 SEC 8.9-13.3 N [facility] INR 1.1 0.0-3.6 N [facility] Therapeutic Values of INR are generally between 2.0-3.0 except for Prosthetic Valves (High Risk 2.5-3.5) The use of INR is restricted to patient on stable oral anticoagulant therapy. ID Date Data Source [id number] 08/05/2020 01:29:00 PM EDT [facility] Has Patient Fasted For The Past 12 Hour s? N Name Value Range Interpretation Code Description Data Marifer rce(s) Supporting Document(s) D-DIMER > 552 NG/ML 0-552 H [facility] ID Date Data Source [id number] 08/05/2020 12:12:00 [place] [address] Patient Name: Marvin Leahy Exam Date: 08/05/20 : 1990 Ordering Doctor: Dee Encinas MD Attending Doctor: Dee Encinas MD CC: CT Head without contrast INDICATION: head injury TECHNIQUE: Axial images of the head were generated. Coronal and sagittal reformats were generated and reviewed. One or more of the following dose reduction techniques were utilized in effectively lowering the radiation dose for this examination: Automated Exposure Control, Adjustment of the mA and/or kV according to patient size, or Iterative reconstruction. COMPARISON: None. FINDINGS: There is no acute parenchymal hemorrhage, mass, mass- effect or midline shift. There is no extra-axial fluid collection. No evidenc e of hydronephrosis. There is no loss of alvarez-white matter differentiation to suggest acute territorial infarct. The calvarium is intact. The visualized paranasal sinuses and orbits appear unremarkable. IMPRESSION: No evidence of acute intracranial hemorrhage or territorial infarction. - CT CERVICAL SPINE WITHOUT CONTRAST INDICATION: head injury COMPARISON: None TECHNIQUE: Axial images were obtained of the cervical spine. Coronal and sagittal multiplanar reformats were generated and reviewed. One or more of the following dose reduction techniques were utilized in effectively lowering the radiation dose for this examination: Automated Exposure Control, Adjustment of the mA and/or kV according to patient size, or Iterative reconstruction. FINDINGS: Straightening of expected cervical lordosis. No acute fracture or subluxation is seen. Cervical vertebral body heights and intervertebral disc spaces are within normal limits. There is no significant osseous spinal canal or foraminal stenosis. Scattered subcentimeter anterior cervical chain lymph nodes are identified, not meeting size criteria for pathologic enlargement. Likely reactive. The paravertebral soft tissues, including the visualized airway, are otherwise within normal l imits. IMPRESSION: Straightening of expected cervical lordosis, thought to be secondary to patient positioning, muscular spasm or strain. No convincing evidence of acute fracture or malalignment of the cervical spine. Professional interpretation performed at [facility] [phone]. End of diagnostic report: [id number] Signed: Marvin Rust MD 08/05/20 1230 Interpreted by: Marvin RustTranscribed by: Marvin Rust Name Value Range Interpretation Code Description Data Marifer rce(s) Supporting Document(s) ID Date Data Source [id number] 08/05/2020 12:12:00 [place] [address] Patient Name: Marvin Leahy Exam Date: 08/05/20 : 1990 Ordering Doctor: Dee Encinas MD Attending Doctor: Dee Encinas MD CC: CT Head without contrast INDICATION: head injury TECHNIQUE: Axial images of the head were generated. Coronal and sagittal reformats were generated and reviewed. One or more of the following dose reduction techniques were utilized in effectively lowering the radiation dose for this examination: Automated Exposure Control, Adjustment of the mA and/or kV according to patient size, or Iterative reconstruction. COMPARISON: None. FINDINGS: There is no acute parenchymal hemorrhage, mass, mass- effect or midline shift. There is no extra-axial fluid collection. No evidenc e of hydronephrosis. There is no loss of alvarez-white matter differentiation to suggest acute territorial infarct. The calvarium is intact. The visualized paranasal sinuses and orbits appear unremarkable. IMPRESSION: No evidence of acute intracranial hemorrhage or territorial infarction. - CT CERVICAL SPINE WITHOUT CONTRAST INDICATION: head injury COMPARISON: None TECHNIQUE: Axial images were obtained of the cervical spine. Coronal and sagittal multiplanar reformats were generated and reviewed. One or more of the following dose reduction techniques were utilized in effectively lowering the radiation dose for this examination: Automated Exposure Control, Adjustment of the mA and/or kV according to patient size, or Iterative reconstruction. FINDINGS: Straightening of expected cervical lordosis. No acute fracture or subluxation is seen. Cervical vertebral body heights and intervertebral disc spaces are within normal limits. There is no significant osseous spinal canal or foraminal stenosis. Scattered subcentimeter anterior cervical chain lymph nodes are identified, not meeting size criteria for pathologic enlargement. Likely reactive. The paravertebral soft tissues, including the visualized airway, are otherwise within normal l imits. IMPRESSION: Straightening of expected cervical lordosis, thought to be secondary to patient positioning, muscular spasm or strain. No convincing evidence of acute fracture or malalignment of the cervical spine. Professional interpretation performed at [facility] [place] . End of diagnostic report: [id number] Signed: Marvin Rust MD 08/05/20 1230 Interpreted by: Marvin RustTranscribed by: Marvin Rust Name Value Range Interpretation Code Description Data Marifer rce(s) Supporting Document(s) ID Date Data Source [id number] 08/05/2020 11:47:00 AM EDT [address] [address] HEALTH INFORMATION MANAGEMENT ED/ Physician Report : [id number] Signed with Casi Patient: Marvin Leahy Acct:[id number] Unit : [id number] : 1990 Arrival Date: 08/05/20 Age/Sex: 30 / M Arrival Time: 1101 Copies to: PCP,Unavailabl Trauma HPI/ROS General Chief Complaint: Minor Trauma/Adult Stated Complaint: Eval After Fall Stated Complaint: Eval After Fall Source: Patient and I have reviewed available Ancillary/nursing staff documentation Limitations : Reports No limitations History of Present Illness Initial Comments: patient is complaining of neck pain and headache after a fall. Patient is currently admitted to [facility]. He states he went to the meth room and while urinating his started to feel dizzy. He started to experience blurred vision. Eventually patient fell and hit his head and neck. Patient has cervical collar in place. patient also reports swelling and pain in the left lower leg. Leg pain has been ongoing for last 6days. Staff reports that he has been limping. His leg pain is worse with movement of the foot. Hedenies prior injury to the Leg. Time interval: Hour(s) Loss of Consciousness: Reports Yes and Second(s) Location: Reports Head and Neck Location - Extremities: No Severity scale (1-10): 6 Duration: Reports Constant Associated Symptoms: Reports Headaches; Denies Abdominal pain, Back pain, Chest pain, Cough, Dizziness, Epistaxis, Nausea, Shortness of breath, Syncope and Vomiting Related Data Home Medications Medication Instructions Recorded cetirizine [Zyrtec] 10 mg PO QID 06/01/20 lidocaine [Lidoderm] 1 patch TRANSDERMAL DAILY 06/01/20 trazodone 50 mg PO DAILY 07/28/20 Allergies shellfish derived Allergy (Verified 06/02/20 13:06) ADDITIONAL UNSPECIFIED Review of Systems Review of Systems All systems: Reviewed and negative except as stated in HPI. General: Denies Fever and Chills ENT: Denies Ear ache, Epistaxis and Sore throat Cardiac: Denies Chest pain and Palpitations Respiratory: Denies Cough and Shortness of Breath GI: Denies Pain, Nausea, Vomiting and Diarrhea Neuro: Reports Headache; Denies Dizziness and Weakness Musculoskeletal: Reports Neck Pain and Myalgias; Denies Back Pain Skin: Denies Bruising and Rash Psychiatric: Denies Anxiety and Depression Social History Social History Other: Pt from [place] living [place] country and has not been granted access to [place] as of now. Mother, father and are back home. He has a sister in [place] History of Smoking/Tobacco Use: Never Smoker Alcohol use: Reports Occasionally Drug use: Reports None Occupation: - [employer] Lives with: Reports Alone PMH/PSH PMH/PSH Medical History Encounter for medical screening examination No pertinent past medical history Surgical History No pertinent past surgical history (Surgical) Family History Father HTN (hypertension) Mother HTN (hypertension) Physical Exam Physical Exam Physical Exam: Physical Exam General appearance: Alert and In no apparent distress Head Head Exam: Atraumatic and Normcephalic . No barfield sign bilaterally Eye Eye Exam: EOMI, Conjunctiva normal and CHATO. No periorbital ecchymosis bilaterally ENT ENT Exam: External ear normal, Throat normal. no epistaxis or dental fractures Neck Neck Exam: Full ROM and Supple. Midline cervical spine tenderness Cardiac Cardiac: Present: Regular rate and rhythm Heart Sounds: Present: S1 and S2 Lung/Chest Lung/Chest Exam: Clear, Normal Exchange and No chest wall tenderness Abdomen Abdominal Exam: Bowel sounds normal, Soft, Nondistended and Nontender Back Back Exam: Full ROM and No Deformity Lower Extremity Lower Extermity Normal: Full ROM and Nontender Lower Extremity Abnormal: tenderness present in left calf Neuro Neuro Normal: Alert, Oriented x 3, Fluent speech, Sensory normal and Strength 5/5 all extremities Psych Psych Normal: Normal Affect Skin Skin exam: Dry, Intact and Warm Course Course Course Course Narrative: 3:14 p.m. lab results a nd imaging findings reviewed with patient. His vital signs have been stable. Hematology shows normal white blood cell count. H H is stable. Coagulation profile is non actionable. D-dimer is elevated. Doppler scan of the left lower extremity connell is positive for deep venous thrombosis. Patient is started on 10 mg of Eliquis in emergency room. He will require 10 mg of Eliquis twice a day for 7 days then 5 mg twice a day afterward. Serum chemistries shows normal electrolytes and kidney function test. CT scan of the brain and cervical spine did not show any acute pathology. Patient is also advised to do not take anti-inflammatory medications along with Eliquis. He can take Tylenol as needed for pain. Patient's syncopal episode is vasovagal in nature secondary to urination. Vital Signs Vital signs: Vital Signs 08/05/20 11:27 Temperature 98.3 F Pulse Rate 73 Respiratory Rate 18 Blood Pressure 128/78 O2 Sat by Pulse Oximetry 96 Medical Decision Making/CCT EKG Interpretation Complete If EKG was done has it been read?: Yes Lab Data Result diagrams: 08/05/20 12:35 08/05/20 12:35 Labs reviewed: Yes Hyperglycemia Identified Hyperglycemia identified in patient?: No Medication/Allergies Review Medication/Allergies Review Home Medication and Allergy review: I reviewed patients allergies, home medications, and new prescriptions Blood Pressure Blood pressure: Pt BP not elevated Radiology Data Radiology Data Radiology results: report reviewed Discharge Plan Disposition Clinical Impression: Syncope Qualifiers: Syncope type: vasovagal syncope Qualified Code(s): R55 - Syncope and collapse DVT (deep venous thrombosis) Qualifiers: DVT location: lower extremity Affected thrombotic vein of extremity: tibial Chronici ty: acute Laterality: left Qualified Code(s): I82.442 - Acute embolism and thrombosis of left tibial vein Provider stated Dispo: Discharged Condition: Stable Instructions: Apixaban (By mouth), Syncope (ED), Deep Vein Thrombosis (ED) Activity Restrictions/Additional Instructions: please continue to take your regular medications as prescribed. Follow up with primary care doctor as soon as possible. Please continue Eliquis 10 mg twice a day for next 7 days. Then 5 mg twice a day for 3-6 months. You may take Tylenol as needed for pain. Prescriptions: Continued cetirizine [Zyrtec] 10 mg Tablet 10 mg PO QID RF: 0 lidocaine [Lidoderm] 5 % adhesive patch,medicated 1 patch transdermal DAILY RF: 0 trazodone 50 mg Tablet 50 mg PO DAILY RF: 0 Discontinued naproxen [Naprosyn] 500 mg tablet 500 mg PO BID RF: 0 diclofenac sodium [Voltaren] 1 % gel 1 g TOPICAL QID RF: 0 Referrals: PCP,Unavailabl [Primary Care Provider] - Patient a greeable to discharge: Patient/Guardian understands and is agreeable to discharge plan Provider in triage note Vital Signs Vital Signs: I O (Last 24 Hours) 08/03/20 08/04/20 08/05/20 23:59 23:59 23:59 Other: Weight 89.9 kg Vital Signs (Last 8 Hours) Temp Pulse Resp BP Pulse Ox 08/05/20 11:27 98.3 F 73 18 128/78 96 Date/Time <<Signature on File>> Initializing User: Dee Encinas MD 08/05/20 1147 Signed by: Dee Encinas MD 08/09/20 0732 ADDENDUM Discharge Plan Disposition Clinical Impression: Syncope, DVT (deep venous thrombosis) Provider stated Dispo: Transferred Condition: Stable Instructions: Apixaban (By mouth), Syncope (ED), Deep Vein Thrombosis (ED) Activity Restrictions/Additional Instructions: please continue to take your regular medications as prescribed. Follow up with primary care doctoras soon as p ossible. Please continue Eliquis 10 mg twice a day for next 7 days. Then 5 mg twice a day for 3-6 months. You may take Tylenol as needed for pain. Prescriptions: Continued cetirizine [Zyrtec] 10 mg Tablet 10 mg PO QID RF: 0 Discontinued naproxen [Naprosyn] 500 mg tablet 500 mg PO BID RF: 0 diclofenac sodium [Voltaren] 1 % gel 1 g TOPICAL QID RF: 0 No Action trazodone 50 mg Tablet 50 mg PO HS 30 Days Qty: 30 RF: 0 risperidone 1 mg Tablet 1 mg PO HS 30 Days Qty: 30 RF: 0 escitalopram oxalate 10 mg Tablet 10 mg PO DAILY 30 Days Qty: 30 RF: 0 divalproex 250 mg Tablet Extended Release 24 Hr 250 mg PO BID 30 Days Qty: 60 RF: 0 Eliquis 5 mg Tablet 10 mg PO BID 7 Days Qty: 28 RF: 0 Referrals: PCP,Unavailabl [Primary Care Provider] - Patient agreeable to discharge: Patient/Guardian understands and is agreeable to discharge plan Addendum Signed By: Dee Encinas MD <<Signature on File>> Signed Date/Time: 08/10/20 1100 Addendum Co-Sign By: Co-Sign Date/Time: Name Value Range Interpretation Code Description Data Marifer rce(s) Supporting Document(s) ID Date Data Source [id number] 07/29/2020 03:37:00 PM EDT [address] [address] Patient Name: BerinMarvin villanueva Exam Date: 07/29/20 : 1990 Ordering Doctor: Chloe Byrd Attending Doctor: Ambreen Shah MD CC: EXAM:Wrist LEFT 2V CLINICAL INDICATION: L wrist pain TECHNIQUE: Two x-rays of the left wrist were obtained. COMPARISON: None. FINDINGS: There is anatomic alignment of the osseous structures. No fracture or subluxation is identified. No significant soft tissue edema is identified.. IMPRESSION: 1. Unremarkable left wrist x-rays. Professional interpretation performed by [facility] . End of diagnostic report: [id number] Signed: Marvin Major MD 08/02/201626 Interpreted by: Marvin LuTranscribed by: Marvin Major Name Value Range Interpretation Code Description Data Marifer rce(s) Supporting Document(s) ID Date Data Source [id number]/29/2020 03:37:00 [place] [address] Patient Name: Marvin Leahy Exam Date: 07/29/20 : 1990 Ordering Doctor: Chloe Byrd Attending Doctor: Ambreen Shah MD CC: EXAM:Hand LEFT 2V CLINICAL INDICATION: L hand pain TECHNIQUE: Two x-rays of the left hand were obtained. COMPARISON: None. FINDINGS: There is anatomic alignment of the osseous structures. No fracture or subluxation is identified. No significant soft tissue edema is identified.. IMPRESSION: 1. Unremarkable left hand x-rays. Professional interpretation performed by [facility] . End of diagnostic report: [id number] Signed: Marvin Major MD 08/02/201626 Interpreted by: Marvin MajorTranscribed by: Marvin Major Name Value Range Interpretation Code Description Data Marifer rce(s) Supporting Document(s) ID Date Data Source [id number]/29/2020 03:37:00 PM EDT [address] [place] [address] Patient Name: Marvin Leahy Exam Date: 07/29/20 : 1990 Ordering Doctor: Chloe Byrd Attending Doctor: Ambreen Shah MD CC: EXAM:Wrist RIGHT 2V CLINICAL INDICATION: R hand pain TECHNIQUE: Two x-rays of the wrist were obtained. COMPARISON: None. FINDINGS: There is anatomic alignment of the osseous structures. No fracture or subluxation is identified. No significant soft tissue edema is identified.. IMPRESSION: 1. Unremarkable right wrist x-rays. Professional interpretation performed by [facility] . End of diagnostic report: [id number] Signed: Marvin Major MD 08/02/201625 Interpreted by: Marvin MajorTranscribed by: Marvin Major Name Value Range Interpretation Code Description Data Marifer rce(s) Supporting Document(s) ID Date Data Source [id number]/29/2020 03:37:00 [place] [address] Patient Name: Marvin Leahy Exam Date: 07/29/20 : 1990 Ordering Doctor: Chloe Byrd Attending Doctor: Ambreen Shah MD CC: EXAM:Hand RIGHT 2V CLINICAL INDICATION: R hand pain TECHNIQUE: Two x-rays of the right hand were obtained. COMPARISON: None. FINDINGS: There is anatomic alignment of the osseous structures. No fracture or subluxation is identified. No significant soft tissue edema is identified.. IMPRESSION: 1. Unremarkable right hand x-rays. Professional interpretation performed by [facility] . End of diagnostic report: [id number] Signed: Marvin Major MD 08/02/201625 Interpreted by: Marvin RodasTranscribed by: Marvin Major Name Value Range Interpretation Code Description Data Marifer rce(s) Supporting Document(s) ID Date Data Source [id number]/29/2020 03:37:00 [place] [address] Patient Name: Marvin Leahy Exam Date: 07/29/20 : 1990 Ordering Doctor: Chloe Byrd Attending Doctor: Ambreen Shah MD CC: EXAM:Spine Cervical 2V Or 3V CLINICAL INDICATION: neck pain TECHNIQUE: Three x-rays of the cervical spine were obtained. COMPARISON: None. FINDINGS: Maintenance of the natural lordotic curvature. Vertebral body heights are maintained without evidence of fracture. No significant facet arthropathy. No prevertebral soft tissue thickening. IMPRESSION: 1. Unremarkable cervical spine x-rays. Professional interpretation performed by [facility] at [facility] . End of diagnostic report: [id number] Signed: Marvin Gatian MD 08/02/20 1625 Interpreted by: Marvin MajorTranscribed by: Marvin Major Name Value Range Interpretation Code Description Data Marifer rce(s) Supporting Document(s) ID Date Data Source [id number] 06/05/2020 09:09:00 AM EDT [facility] Has Patient Fasted For The Past 12 Hour s? Y Has Patient Fasted For The Past 12 Hour s? Y Has Patient Fasted For The Past 12 Hour s? Y Has Patient Fasted For The Past 12 Hour s? Y Name Value Range Interpretation Code Description Data [facility] rce(s) Supporting Document(s) SODIUM 142 MEQ/L 135-145 N [facility] POTASSIUM 4.0 MEQ/L 3.5-5.3 [facility] CHLORIDE 108 MEQ/L 94-110 [facility] CARBON DIOXIDE 26 MEQ/L 22-33 [facility] ANION GAP 12 5-16 N [facility] BLOOD UREA NITRO 9 MG/DL 7-25 N [facility] CREATININE 1.0 MG/DL 0.6-1.4 [facility] GFR > 90.0 ML/MIN [facility] Stage G1 - Normal or high kidney functi on The GFR is an estimate of the Glomerular Filtration Rate. It is an aid to assess a patient's renal function. It is not a conclusive diagnosis of kidney disease. GFR normal is >=90 The MDRD GFR calculation is considered valid between the ages of 18 and 75 years only. BUN/CREAT RATIO 9 8-36 [facility] GLUCOSE 95 MG/DL 70-100 [facility] CA 9.7 MG/DL 8.7-10.5 [facility] BILIRUBIN,TOTAL 0.5 MG/DL 0.1-1.3 [facility] AST 24 U/L 5-40 [facility] ALT 36 U/L 5-48 [facility] ALKALINE PHOSPHATASE 68 U/L 40-140 [facility] alth TOTAL PROTEIN 7.0 G/DL 5.9-8.3 [facility] ALBUMIN 4.7 G/DL 3.0-5.1 [facility] GLOBULIN 2.3 G/DL 1.5-3.5 [facility] ALB/GLOB RATIO 2.0 G/DL 1.0-3.0 [facility] ID Date Data Source [id number] 06/05/2020 09:09:00 AM [facility] Has Patient Fasted For The Past 12 Hour s? Y Has Patient Fasted For The Past 12 Hour s? Y Has Patient Fasted For The Past 12 Hour s? Y Has Patient Fasted For The Past 12 Hour s? Y Name Value Range Interpretation Code Description Data Marifer rce(s) Supporting Document(s) Vitamin D,25-HYDROXY 42.5 ng/ml 30-100 [facility] ealt Vitamin D Status Range De ficiency <20 ng/ml Insufficiency 20-29.9 ng/ml Sufficiency 30-100 ng/ml Toxicity >100 ng/ml Patients should not be tested for 72 hours post fluorescein dye angiography. A false elevation of result may occur. ID Date Data Source [id number] 06/05/2020 09:09:00 AM [facility] Has Patient Fasted For The Past 12 Hour s? Y Has Patient Fasted For The Past 12 Hour s? Y Has Patient Fasted For The Past 12 Hour s? Y Has Patient Fasted For The Past 12 Hour s? Y Name Value Range Interpretation Code Description Data Marifer rce(s) Supporting Document(s) T3FREE 3.6 PG/ML 2.3-4.2 [facility] ID Date Data Source [id number] 06/05/2020 09:09:00 AM EDT [facility] Has Patient Fasted For The Past 12 Hour s? Y Has Patient Fasted For The Past 12 Hour s? Y Has Patient Fasted For The Past 12 Hour s? Y Has Patient Fasted For The Past 12 Hour s? Y Name Value Range Interpretation Code Description Data Marifer rce(s) Supporting Document(s) TSH 1.864 uIU/ML 0.470-4.200 N [facility] Patients should not be tested for 72 ho urs post fluorescein dye angiography. A false depression of result may occur. ID Date Data Source IMMUNOGLOBULIN E 03/09/2020 12:00:00 AM EDT eCW1 ([facility]) Name Value Range Interpretation Code Description Data Marifer rce(s) Supporting Document(s) 129.0 <100 IMMUNOGLOBULIN E eCW1 ([facility]) ID Date Data Source FREE T4 & TSH PANEL 03/09/2020 12:00:00 AM EDT eCW1 ([facility]) Name Value Range Interpretation Code Description Data Marifer rce(s) Supporting Document(s) 1.690 0.358-3.740 THYROID STIMULATING HORM ONE eCW1 ([facility]) 1.00 0.76-1.46 FREE T4 eCW1 ([facility]) ID Date Data Source ERYTHROCYTE SEDIMENTATION RATE 03/09/2020 12:00:00 AM EDT eC W1 ([facility]) Name Value Range Interpretation Code Description Data Marifer rce(s) Supporting Document(s) 3 0-15 ERYTHROCYTE SEDIMENTATION RATE eCW1 ([facility]) ID Date Data Source CBC with Differential 03/09/2020 12:00:00 AM EDT eCW1 ([facility]) Name Value Range Interpretation Code Description Data Marifer rce(s) Supporting Document(s) 4.3 4.0-10.0 WHITE BLOOD COUNT eCW1 ([facility]) 4.97 4.30-6.10 RED BLOOD COUNT eCW1 ([facility]) 14.9 13.5-17.5 HEMOGLOBIN eCW1 ([facility]) 44.2 42.0-52.0 HEMATOCRIT eCW1 ([facility]) 30.0 27.0-33.0 MEAN CORPUSCULAR HEMOGLOB IN eCW1 ([facility]) 88.9 80.0-96.0 MEAN CORPUSCULAR VOLUME e CW1 ([facility]) 12.7 11.5-14.5 RED CELL DISTRIBUTION WID TH eCW1 ([facility]) 33.7 32.0-36.5 MEAN CORPUSCULAR HGB CONC eCW1 ([facility]) 43.8 36.0-66.0 NEUTROPHILS % eCW1 ([facility]) 181 150-450 PLATELET COUNT, AUTOMATED eCW1 ([facility]) 45.3 24.0-44.0 LYMPH % eCW1 ([facility]) 7.9 0.0-5.0 MONO % eCW1 ([facility]) 0.5 0.0-1.0 BASO % eCW1 ([facility]) 2.3 0.0-3.0 EOS % eCW1 ([facility]) 2.0 1.5-5.0 LYMPH # eCW1 ([facility]) 1.9 1.5-8.5 NEUTROPHILS # eCW1 ([facility]) 0.3 0.0-0.8 MONO # eCW1 ([facility]) 0.1 0.0-0.5 EOS # eCW1 ([facility]) 0.0 0.0-0.2 BASO # eCW1 ([facility]) ID Date Data Source [id number] 03/08/2020 09:55:59 AM EDT [facility] Name Value Range Interpretation Code Description Data Marifer rce(s) Supporting Document(s) Progress Note [facility] JRTBSp3nUfFNCuDi06/IVMlrANHtr2ArGZwbXHc4VTenWPSeS3AdXGD4bP7fHGV8MDeYVjQpDkLxLCWy lb [file] AgICAgICAgICAgICAgICAgICAgICAgICAgICAgICAgICAgICAgICAgICAgICAgICAgICAgICAgICANCi AgICAgICAgICAgICAgICAgICAgICAgICAgICAgICAg ICAgICAgICAgICAgICAgICAgICAgICAgICAgICAgICAgICAgICAgICAgICAgICAgICAgICAgICAgICAg ICAgICAgICANCiAgICAgICAgICAgICAgICAgICAgICAgICAgICAgICAgICAgICAgICAgICAgICAgICAg ICAgICAgICAgICAgICAgICAgICAgICAgICAgICAgIC AgICAgICAgICAgICAgICAgICANCiAgICAgICAgICAgICAgICAgICAgICAgICAgICAgICAgICAgICAgIC AgICAgICAgICAgICAgICAgICAgICAgICAgICAgICAgICAgICAgICAgICAgICAgICAgICAgICAgICAgIC ANCiAgICAgICAgICAgICAgICAgICAgICAgICAgICAg ICAgICAgICAgICAgICAgICAgICAgICAgICAgICAgICAgICAgICAgICAgICAgICAgICAgICAgICAgICAg ICAgICAgICAgICANCiAgICAgICAgICAgICAgICAgICAgICAgICAgICAgICAgICAgICAgICAgICAgICAg ICAgICAgICAgICAgICAgICAgICAgICAgICAgICAgIC AgICAgICAgICAgICAgICAgICAgICANCiAgICAgICAgICAgICAgICAgICAgICAgICAgICAgICAgICAgIC AgICAgICAgICAgICAgICAgICAgICAgICAgICAgICAgICAgICAgICAgICAgICAgICAgICAgICAgICAgIC AgICANCiAgICAgICAgICAgICAgICAgICAgICAgICAg ICAgICAgICAgICAgICAgICAgICAgICAgICAgICAgICAgICAgICAgICAgICAgICAgICAgICAgICAgICAg ICAgICAgICAgICAgICANCiAgICAgICAgICAgICAgICAgICAgICAgICAgICAgICAgICAgICAgICAgICAg ICAgICAgICAgICAgICAgICAgICAgICAgICAgICAgIC AgICAgICAgICAgICAgICAgICAgICAgICANCiAgICAgICAgICAgICAgICAgICAgICAgICAgICAgICAgIC AgICAgICAgICAgICAgICAgICAgICAgICAgICAgICAgICAgICAgICAgICAgICAgICAgICAgICAgICAgIC AgICAgICANCjw/yZXeW2oonBFdhiY3N5cdAv1BJj1O BS2ou4DiROYfJUakxtOxGvsKPmCnPHKbIzeMHka4BXmaNT2ImNRtV6RjF6VjYSklLQ9DBRPwGYVfkJTp GRLpNIYlAtW9NKLgCNhhNZ1BmIBpTDesVQCrAWEzCnLyTJSxGB5MXMGwX871fbOnJy3QYp9NElPuSW2g fl2XHyHeNEArQupAZbt3XTmzJR8NnQXebPBtRmMqGB VVBdAtT8tqf9DnZnWwXAKAZOyxAN5Gd3WmmNLcCWb+Nb5AWH7zx8VzGHsrZiQsJE7dkn2EQSeJLhLbE8 AkvGwqHZVkw5lfALUyCJ0lnOIiFLK6SUezIvCGrsXvt9QowBdtECDxVZYuQW7cMK1hOSEqQOLzQiRoBP OFRV3CFAUcRFMxyWWdDXTyZXUDUA3HBRayURA3LOLy wnMrhBEnYLebOT4RRWMokqJtPeUzNUJDVQw+Cr9JAE5wc2SgOYktOhVxYS4pqg6CEZgNYjFgD0E9hUVc E5K0YBluQr2RMZQwBALtMNyqXISLKCfzRY4HDM0ykxQ4MC2JzZXsZREjMZUhqUEnFYo1M12pbZDdEBso ZH5ZXWI+Jayla+Iu3KGMVwIHEgLULlRkYmPFEMWtYqS3 JaA2EBj5EkA1PvDY49cLmgabDtMYydJY2UOL0qNMLyWGYRSK9RyJFdzY7qeyFnVKIsCCJJCrDwY32qiX RhHNMrRQBfDBFjKk9IAGOjN4ShecDvuKnjubRyBHQhKBHPOO6PKMwdxyYziUKjiXgoWN48aDzxKJ5XNn 9GXsGeCL1smi7KwQSkQi7ROOHjZM6SSOCjZTOyUAFb UXX5LZGlCwTwIGciATDiECGiZPR1MLSaPMOpUG5LPvYbBIYxTEn6MGKvWEBaMEGrcs8ZMVBsEJYfGINj WyNaYRDkIINhCIsmECYfLEVvMLE5VUVqQUWcPQ9QFeLfMBIeGLZbArMuPTAtQXWqjg3MRUGfYPKoWnSw BNQwATJzLJCzADjwKWFqWCY0LcF7RVMkVEZsBQ5FUo WbYJYeCBU1CWLeVOKfXJCamf6QAXKfHCBjYTa8SIFyLTBuLIGwMWrnDJDeQWT0WVj8KNVtYMSqRF2LSo FxWQKiZNGqXjQdPMDcMTYwvi8OFEJoTPNcImDxEBPlWFJsKBCrGEfhOZMaWAI0YrL6GENyPJAmHA5HOl TcFJKhCVg4XhHnGCOyVXZhte9XGTAyWKPrWNf1XDYx LNSgDXZnLFipTZXoKEV1VHv7IXFrDHGoRO0VVtRsJZAeYZy4DKPsTWQgXYNieh7WDQDlHWPoPMW5VJQt JFDiLUHgLErzHQCaTIR7ZixjUBFuVZQpTF9HYkSeSSLwOgKxMUYuFUAxGCNzuo2JHFTmGPDfYPDhOaPd TMGvPDKaZGbpECBiROWlOuN0QSHzENUkUS8GBoYyTB HjQtU6RAUxOBAcFKNtwp3OwAErpCvowv3ZDHaJWv4WeYkwIZF7MEizAq6xmNExKiKnYDMVVh8FgkAuGK UiANCBPCbbLIVrTKA8FMI7HBX2YrGiHPD2G5TpD6JcFjRaRvRrNnB6YyxuBjW2SJDyJOB7GIZqVQH4GR ouHeE4UVM7GyIbPyG6XkIyVOH+SS0zAYu+Ln5Pm8XtpyX1uoRmNLsqObK9JL7HVXFHU9XRGl== ID Date Data Source [id number] 01/09/2020 01:34:51 PM [facility] Name Value Range Interpretation Code Description Data Marifer rce(s) Supporting Document(s) Progress Note [facility] OEVYUc6sBpTROyWl77/ONIfbJJZos3XaAPxoXRj7FWquUYUsG6UdZKM4uQ6hIRX6HSsSWgKrGjSaYpYp lbm [file] K5GaLqVB7LIx9RIlX7VIA7iKLrDl3RFlXcHfDGCbUxQE8TZJe= ID Date Data Source [id number] 12/09/2019 06:52:09 PM [facility] Name Value Range Interpretation Code Description Data Marifer rce(s) Supporting Document(s) Hematocrit [Volume Fraction] of Blood by Automated count 45.0 % 4 1-53 [facility] ID Date Data Source [id number] 12/09/2019 07:28:27 PM [facility] Name Value Range Interpretation Code Description Data Marifer rce(s) Supporting Document(s) Prolactin [Mass/volume] in Serum or Plasma 20.8 ng/ml 4.0-15.2 H [facility] ID Date Data Source [id number] 12/09/2019 08:18:11 PM [facility] Name Value Range Interpretation Code Description Data Marifer rce(s) Supporting Document(s) Prostate Specific Ag Free/Prostate specific Ag.total i n Serum or Plasma 0.3 ng/mL <4.0 [facility] Serum levels of PSA should not be interp reted as absolute evidence of the presence or absence of Cancer. Results obtained with different methods cannot be used interchangeably. This method is manufactured by [employer] and is an electrochemiluminesence immunoassay. ID Date Data Source [id number] 12/08/2019 05:58:55 PM [facility] Name Value Range Interpretation Code Description Data Marifer rce(s) Supporting Document(s) Reference lab test name [facility] PER [facility] ON CREDIT SHEET 8049 Reference lab name [Identifier] [facility] PER [facility] 8049 Service comment [facility] PER [facility] ON CREDIT SHEET 8049 ID Date Data Source [id number] 12/08/2019 10:14:35 AM [facility] Name Value Range Interpretation Code Description Data Marifer rce(s) Supporting Document(s) Progress Note [facility] NXDANu8mZzLIOmPw38/UGTbkWTReu2VdEUbpHFd3ASusHLNwR6NwNLM4gC1eWGX6YYfTRmArTuDlRKMq lbm SsLhhQQfPnBOFkOhdXLaHuAUdmQwsbgIJlHD8VmGZ0AKRkQ52sYZNaLBPaK4IvIYY1HBG+Ri5SOHRphD JzGQ7WUteB1P4vlja2Wd7xsT9TcZJxPNL8rDSjZbJEScjRpQPjORmeY9B/uF2ka1T31+46F//7zvsOGf nxalZj+3p0j8Zx8wjqPxZZdRNMmXJw/9iL5ImHM/J/ mz/GRQnvofv283HaLKAfanY/cpaPV3XNuBP3HjkNbw+/1UAI3U6cUFVTMZ+hqfmNRH37YgyLTB8x/Jones [file] rdBBqbVDQDFx3J ID Date Data Source [id number] 12/16/2019 11:03:00 AM [facility] Cytogenetics ReportName: YCN LEAHY EWMRN: [id number] Number: [id number] Date: 12/08/2019 00:00Received Date: 12/09/2019 09:49Physician(s): Isabel CRAIG J CSpecimecristino(s) ReceivedA: Peripheral Blood (K)Clinical HistoryCLINICAL INDICATION: InfertilityTEST REQUESTED/PERFORMED: Karyotype Analysis CYTOGENETIC RESULTS: 47,XXYINTERPRETATION: An abnormal male karyotype with two X and one Y (XXY) chromosome wasobserved in twenty metaphases examined. 47,XXY karyotype is consistent with a clinical diagnosis of Klinefeltersyndrome. Klinefelter male are infertile. Genetic counseling is indicated.Electronically Signed By Bridger Hernandez, Ph.D., [facility], Director ofCytogenetics 12/16/2019 11:03:52DATA: METAPHASES COUNTED AND ANALYZED: 20 METAPHASES KARYOTYPED: 2BAND RESOLUTION: 650-750ISCN Nomenclature: 47,XXY Name Value Range Interpretation Code Description Data Marifer rce(s) Supporting Document(s) ID Date Data Source [id number] 12/12/2019 04:08:00 PM [facility] Molecular Genetics ReportName: MARVIN LEAHYMRN: [id number] Number: [id number] Date: 12/08/2019 00:00Received Date: 12/09/2019 09:39Physician(s): Isabel CRAIG J CSpecimen(s) ReceivedA: Peripheral Blood-CFTYPE OF STUDY: CYSTIC FIBROSIS DIRECT MUTATION ANALYSISINDICATION FOR TESTING: Male Infertility.RESULTS: This patient does NOT carry any of the 60 CFTR mutationstested. INTERPRETATION: According to the information provided, the patient hasmale infertility. Based on the current results, he does not carry any ofthe 60 CFTR gene mutations investigated. Please note that theIVS8- 5T/7T/9T variant is reflex tested only in individuals with the W361Thhjxybhx and so was not tested in this patient. Please also note thatIVS8-5T penetrance is modulated by the adjacent (TG) variant which is notincluded in this test. Please call the lab if additional maleinfertility-specific CFTR mutation testing is required.Genetic counseling is recommended.COMMENTS: The distribution of CFTR gene mutations is different betweencystic fibrosis (CF) and congenital bilateral absence of the vas deferens(CBAVD) - a substantial, but undetermined proportion of CFTR mutations inCBAVD will not be detected by the [employer] Cystic fibrosis 60 assaysince it is designed for CF carrier testing and confirmatory diagnostictesting. Cystic fibrosis is an autosomal recessive genetic disorder andboth parents of an affected child should be carriers of the disease. While more than 2,000 CFTR mutations have been described, the 60 CFTRmutations tested have a combined detection rate of about 90% of the CFchromosomes found in the [place] population. The detection rate isdependent upon the racial/ethnic ancestry and is typically lower. Mutations have been classified according to GenBank Legacy mutation names have been used - please contact the labregarding more recent changes to the nomenclature if needed.METHODS: DNA isolated from the patient was tested using the Sustainability RoundtableAGCystic fibrosis 60 kit v2 IVD assay which includes the 23 ACMG- recommendedmutations (in bold) plus additional global and/or [place] prevalentmutations: Delta F508, Delta I507, G542X, G85E, R117H, 621+1G>T,711+1G>T, R334W, R347P, A455E, 1717-1G>A, R560T, R553X, G551D, 1898+1G>A,2184delA, 2789+5G>A, 3120+1G>A, U4091N, 3659delC, 3849+10KbC>T, O8051Z,I1030E, 1078delT, 394delTT, Y122X, R347H, V520F, A559T, S549N, S549RT>G,1898+5G>T, 2183AA>G, 2307insA, Q4572FB>A, F9595TM>G, G8251U, O5084G (ex.19[W3707K]), E8242L (ex. 20), 3876delA, 3905insT, E60X, R75X, 406- 1G>A,G178R, L206W, 935delA, G330X, Q493X, 1677delTA, 0438zpo9>A, 2143delT,K710X, 3791delC, Q890X, 8258nod7, T2159S, Q6020V, K1168Z, H0413W,CFTRdele2,3 and B6175S. In addition, the IVS8-5T/7T/9T variant is reflextested only in individuals with the R117H mutation and the F508C, L797Rucr I506V variants are only reflex tested in individuals with a Delta F508or Delta I507 mutation. This test is intended for CF carrier testing andconfirmatory diagnostic testing and should be used in conjunction withother available laboratory and clinical information. The laboratory maintains automotive quality manager and quality control inspector heading programs toensure a high quality of testing. This test is designed for CF carrierand confirmatory diagnostic testing; test results should be interpreted inthe context of clinical findings, family history, and other laboratorydata, and should not be used as the sole criteria for diagnosis ofconditions related to this genetic variant(s). Rare genetic variants thatmimic or mask the mutations being tested, though rare, should beconsidered. The risk analysis could change if molecular data from otherfamily members were available. Any family history used in theinterpretation is assumed to be correct and we ask that it remainconfidential. References:Vicky M et al (2000) Human Mutation 16:143-156Cupp H and Addy Fournier (2004) International Journal of Wtwhwzjkg11:251-256Waluisa MADRID et al (2004) Genetics in medicine 6(5):387-91Yu J et al (2012) Human Reproduction 27(1):25- [email or web address] Electronically Signed By Rudy Hall, Ph.D., [facility] MolecularGeneticist 12/12/2019 16:08:50 Name Value Range Interpretation Code Description Data Marifer rce(s) Supporting Document(s) Procedure Social History Code Duration Value Status Description Data Source(s ) Alcohol intake 11/22/2020 12:00:00 AM EST Current drinker of al cohol (finding) completed Current drinker of alcohol (finding) [facility] Tobacco use and exposure 11/22/2020 12:00:00 AM EST Never used co mpleted Never used [facility] Smoking 11/22/2020 12:00:00 AM EST Never smoker completed Never s [facility] Smoking 11/15/2020 12:00:00 AM EST Never Smoker completed [facility] eCW[facility] ([facility]) Smoking 10/30/2020 12:00:00 AM EST Never Smoker completed Never S [facility] eCW1 ([facility]) Smoking 10/30/2020 12:00:00 AM EST Never Smoker completed Never S [facility] eC1 ([facility]) Smoking 10/18/2020 12:00:00 AM EST Never Smoker completed Never S moker eCW1 ([facility]) Smoking 10/18/2020 12:00:00 AM EST Never Smoker completed Never S moker eCW1 ([facility]) Smoking 10/18/2020 12:00:00 AM EST Never Smoker completed Never S moker eCW1 ([facility]) Alcohol intake 03/08/2020 12:00:00 AM EDT Current drinker of al cohol (finding) completed Current drinker of alcohol (finding) [facility] Smoking 03/08/2020 12:00:00 AM EDT Never smoker completed Never [facility] Alcohol intake 01/09/2020 12:00:00 AM EST Current drinker of al cohol (finding) completed Current drinker of alcohol (finding) [facility] Smoking 01/09/2020 12:00:00 AM EST Never smoker completed Never s [facility] Alcohol intake 12/08/2019 12:00:00 AM EST Current drinker of al cohol (finding) completed Current drinker of alcohol (finding) [facility] Smoking 12/08/2019 12:00:00 AM EST Never smoker completed Never [facility] Vital Signs ID Date Data Source UNK Name Value Range Interpretation Code Description Data Source(s) Oxygen saturation in Arterial blood by Pulse oximetry 98 % 98 % PING (Dylan Shi MD) Heart rate 95 /min 95 /min PING (Dylan Shi MD) Diastolic blood pressure 92 mm[Hg] 92 mm[Hg] PING (Dylan Shi MD) Systolic blood pressure 133 mm[Hg] 133 mm[Hg] M EDSHARON (Dylan Shi MD) Body temperature 97.9 [degF] 97.9 [degF] PING (Dylan Shi MD) Body mass index (BMI) [Ratio] 32.4 kg/m2 32.4 k g/m2 PING (Dylan Shi MD) Body weight 213.00 [lb_av] 213.00 [lb_av] STEVENEN T (Dylan Shi MD) Body height 68 [in_i] 68 [in_i] MEDENT (Dylan Shi MD) 5'8" Diastolic blood pressure 75 mm[Hg] 75 mm[Hg] eCW1 ([facility]) Systolic blood pressure 113 mm[Hg] 113 mm[Hg] e CW1 ([facility]) Body mass index (BMI) [Ratio] 31.93 kg/m2 31.93 kg/m2 eCW1 ([facility]) Body height 68 [in_i] 68 [in_i] eCW1 ([facility]) Body weight 210 [lb_av] 210 [lb_av] eCW1 ([facility]) Oxygen saturation in Arterial blood by Pulse oximetry 97 % 97 % MEDENT ([facility]) Respiratory rate 20 /min 20 /min MEDENT ( [facility]) Heart rate 79 /min 79 /min MEDENT ([facility]) Diastolic blood pressure 75 mm[Hg] 75 mm[Hg] MEDENT ([facility]) Systolic blood pressure 133 mm[Hg] 133 mm[Hg] M EDENT ([facility]) Oxygen saturation in Arterial blood by Pulse oximetry 98 % 98 % MEDENT (Dylan Shi MD) Heart rate 86 /min 86 /min MEDENT (Dylan Shi MD) Diastolic blood pressure 86 mm[Hg] 86 mm[Hg] MEDENT (Dylan Shi MD) Systolic blood pressure 131 mm[Hg] 131 mm[Hg] M EDENT (Dylan Shi MD) Body temperature 97.3 [degF] 97.3 [degF] MEDENT (Dylan Shi MD) Body mass index (BMI) [Ratio] 31.9 kg/m2 31.9 k g/m2 MEDENT (Dylan Shi MD) Body weight 210.00 [lb_av] 210.00 [lb_av] MEDEN T (Dylan Shi MD) Body height 68 [in_i] 68 [in_i] STEVENENT (Dylan Shi MD) 5'8" Diastolic blood pressure 78 mm[Hg] 78 mm[Hg] eCW1 ([facility]) Systolic blood pressure 122 mm[Hg] 122 mm[Hg] e CW1 ([facility]) Body mass index (BMI) [Ratio] 31.44 kg/m2 31.44 kg/m2 W1 ([facility]) Body height 68 [in_i] 68 [in_i] eCW1 ([facility]) Body weight 206.8 [lb_av] 206.8 [lb_av] eCW1 ([facility]) Diastolic blood pressure 72 mm[Hg] 72 mm[Hg] eCW1 ([facility]) Systolic blood pressure 112 mm[Hg] 112 mm[Hg] e CW1 ([facility]) Body mass index (BMI) [Ratio] 31.56 kg/m2 31.56 kg/m2 W1 ([facility]) Body height 68 [in_i] 68 [in_i] eCW1 ([facility]) Body weight 207.6 [lb_av] 207.6 [lb_av] eCW1 ([facility]) Body surface area Derived from formula 2.04 m2 2.04 m2 [facility]) Body mass index (BMI) [Ratio] 30.4 kg/m2 30.4 k g/m2 [facility] ([facility]) Body height 68 [in_i] 68 [in_i] [facility] 5'8" Body weight 90.833 kg 90.833 kg [facility] ([facility]) Body weight 200.25 [lb_av] 200.25 [lb_av] MEDEN T ([facility]) Oxygen saturation in Arterial blood by Pulse oximetry 98 % 98 % [facility] ([facility]) Respiratory rate 16 /min 16 /min [facility] ( [facility]) Body temperature 97.8 [degF] 97.8 [degF] [facility] ([facility]) Heart rate 87 /min 87 /min [facility] ([facility]) Diastolic blood pressure 82 mm[Hg] 82 mm[Hg] MEDENT ([facility]) Systolic blood pressure 110 mm[Hg] 110 mm[Hg] M EDENT ([facility]) Body mass index (BMI) [Ratio] 31.77 kg/m2 31.77 kg/m2 eCW1 ([facility]) Body height 68 [in_us] 68 [in_us] eCW1 ([facility]) Body weight Measured 209 [lb_av] 209 [lb_av] eC W1 ([facility]) Diastolic blood pressure 68 mm[Hg] 68 mm[Hg] eCW1 ([facility]) Systolic blood pressure 104 mm[Hg] 104 mm[Hg] e CW1 ([facility]) Body mass index (BMI) [Ratio] 32.02 kg/m2 32.02 kg/m2 eCW1 ([facility]) Body height 68 [in_us] 68 [in_us] eCW1 ([facility]) Body weight Measured 210.6 [lb_av] 210.6 [lb_av ] eCW1 ([facility]) Oxygen saturation in Arterial blood by Pulse oximetry 96 % 96 % MEDENT ([facility]) Body mass index (BMI) [Ratio] 29.8 kg/m2 29.8 k g/m2 MEDENT ([facility]) Body weight 193.00 [lb_av] 193.00 [lb_av] MEDEN T ([facility]) Body height 67.5 [in_i] 67.5 [in_i] MEDENT ([facility]) 5'7.50" Heart rate 71 /min 71 /min MEDENT ([facility]) Diastolic blood pressure 72 mm[Hg] 72 mm[Hg] MEDENT ([facility]) Systolic blood pressure 120 mm[Hg] 120 mm[Hg] M EDENT ([facility]) Diastolic blood pressure 62 mm[Hg] 62 mm[Hg] eCW1 ([facility]) Systolic blood pressure 116 mm[Hg] 116 mm[Hg] e CW1 ([facility]) Body temperature 97.4 [degF] 97.4 [degF] eCW1 ( [facility]) Respiratory rate 18 /min 18 /min eCW1 ([facility]) Heart rate 88 /min 88 /min eCW1 ([facility]) Body mass index (BMI) [Ratio] 30.83 kg/m2 30.83 kg/m2 eCW1 ([facility]) Body height 68 [in_us] 68 [in_us] eCW1 ([facility]) Body weight Measured 202.8 [lb_av] 202.8 [lb_av ] eCW1 ([facility]) Diastolic blood pressure 60 mm[Hg] 60 mm[Hg] eCW1 ([facility]) Systolic blood pressure 114 mm[Hg] 114 mm[Hg] e CW1 ([facility]) Body temperature 97.5 [degF] 97.5 [degF] eCW1 ( [facility]) Respiratory rate 16 /min 16 /min eCW1 ([facility]) Heart rate 85 /min 85 /min eCW1 ([facility]) Body mass index (BMI) [Ratio] 29.65 kg/m2 29.65 kg/m2 eCW1 ([facility]) Body height 68 [in_us] 68 [in_us] eCW1 ([facility]) Body weight Measured 195 [lb_av] 195 [lb_av] eC W1 ([facility]) ID Date Data Source [id number] 12/13/2020 09:40:47 AM [facility] Name Value Range Interpretation Code Description Data Source(s) WEIGHT RECORDED 207.[address] [facility] Height 68 Inches 068 Inches [facility] ID Date Data Source [id number] 12/16/2019 11:04:12 AM [facility] Name Value Range Interpretation Code Description Data Source(s) WEIGHT RECORDED 203 lb 203 lb [facility] Body height Measured 68 in 68 in [facility] Patient Treatment Plan of Care Planned Activity Planned Date Details Description Data Source (s) HM LIDOCAINE PATCH EX 11/07/2020 12:00:00 AM [facility] Escitalopram 20 MG Oral Tablet 11/07/2020 12:00:00 AM [facility] Trazodone Hydrochloride 50 MG Oral Tablet 11/07/2020 12:00:00 AM [facility] apixaban 5 MG Oral Tablet 11/07/2020 12:00:00 AM [facility] Xolair 150 MG/ML 10/19/2020 12:00:00 AM EST eCW1 ([facility]) Xolair 150 MG/ML 10/19/2020 12:00:00 AM EST eCW1 ([facility]) Xolair 150 MG/ML 10/19/2020 12:00:00 AM EST eCW1 ([facility]) Betamethasone 0.0005 MG/MG Augmented Topical Ointment 03/23/2020 12:00:00 AM EDT eCW1 ([facility]) Ivermectin 3 MG Oral Tablet 03/09/2020 12:00:00 AM EDT eCW1 ([facility]) cetirizine hydrochloride 10 MG Oral Tablet 03/09/2020 12:00:00 AM E DT eCW1 ([facility]) Syringe/Needle (Disp) 22G X 1-1/2" 1 ML (Tasneem Le ngmary ellen) 01/09/2020 12:00:00 AM [facility] Chorionic Gonadotropin 14943 UNT/ML Injectable Solutio n 01/06/2020 12:00:00 AM [facility] Chorionic Gonadotropin [id number] UNT/ML Injectable Solutio n 12/09/2019 12:00:00 AM [facility] cetirizine hydrochloride 10 MG Oral Tablet [Zyrtec] 11/22/19 20 12:00:00 AM EST eCW1 (Pending sale to [facility]) mometasone furoate 1 MG/ML Topical Cream 11/22/2019 12:00:00 AM EST eCW1 ([facility])
--- OUTSIDE RECORDS SUMMARY | 2020-12-27 16:20 | CCD ---
Author Author [facility] Organization [facility] Address Unknown Phone Unavailable Care Team Providers Care Procurement Intern Name Role Phone Benjy BANG Unavailable Unavailable KIARABenjy KIDD MD Unavailable Unavailable KIARABenjy MILLER MD Unavailable [...] DYLAN MD Unavailable Unavailable JAZMIN, MAQBOOL DYLAN Unavailable Unavailable JAZMIN, MAQBOOL DYLAN Unavailable Unavailable JAZMIN, MAQBOOL DYLAN MD Unavailable Unavailable JAZMIN, MAQBOOL DYLAN MD Unavailable Unavailable JAZMIN, MAQBOOL DYLAN Unavailable Unavailable JAZMIN, MAQBOOL DYLAN MD Unavailable [...] MAQBOOL DYLAN MD Unavailable Unavailable JAZMIN, MAQBOOL DLYAN MD Unavailable Unavailable JAZMIN, MAQBOOL DYLAN MD [...] Colon, Angel Unavailable Unavailable Han, M Raquel HOSPICE SPIRITUAL CARE COORDINATOR Unavailable Unavailable Han, M Raquel HOSPICE SPIRITUAL CARE COORDINATOR Unavailable Unavailable Han, M Raquel HOSPICE SPIRITUAL CARE COORDINATOR Unavailable Unavailable Han, M Raquel HOSPICE SPIRITUAL CARE COORDINATOR Unavailable Unavailable Han, M Raquel HOSPICE SPIRITUAL CARE COORDINATOR Unavailable Unavailable Han, M Raquel HOSPICE SPIRITUAL CARE COORDINATOR Unavailable Unavailable Han, M Raquel HOSPICE SPIRITUAL CARE COORDINATOR Unavailable Unavailable Han, M Raquel HOSPICE SPIRITUAL CARE COORDINATOR Unavailable Unavailable Han, M Raquel HOSPICE SPIRITUAL CARE COORDINATOR Unavailable Unavailable Han, M Raquel HOSPICE SPIRITUAL CARE COORDINATOR Unavailable Unavailable Han, M Raquel HOSPICE SPIRITUAL CARE COORDINATOR Unavailable Unavailable Han, M Raquel HOSPICE SPIRITUAL CARE COORDINATOR Unavailable Unavailable Han, M Raquel HOSPICE SPIRITUAL CARE COORDINATOR Unavailable Unavailable KASSIDY, CHICHI HOSPICE SPIRITUAL CARE COORDINATOR Unavailable Unavailable KASSIDY, CHICHI HOSPICE SPIRITUAL CARE COORDINATOR Unavailable Unavailable KASSIDY, CHICHI HOSPICE SPIRITUAL CARE COORDINATOR Unavailable Unavailable KASSIDY, CHICHI HOSPICE SPIRITUAL CARE COORDINATOR Unavailable Unavailable KASSIDY, CHICHI HOSPICE SPIRITUAL CARE COORDINATOR Unavailable Unavailable KASSIDY, CHICHI HOSPICE SPIRITUAL CARE COORDINATOR Unavailable Unavailable KASSIDY, CHICHI HOSPICE SPIRITUAL CARE COORDINATOR Unavailable Unavailable COOK, B DENIA HOSPICE SPIRITUAL CARE COORDINATOR Unavailable Unavailable COOK, B DENIA HOSPICE SPIRITUAL CARE COORDINATOR Unavailable Unavailable COOK, B DENIA HOSPICE SPIRITUAL CARE COORDINATOR Unavailable Unavailable COOK, B DENIA HOSPICE SPIRITUAL CARE COORDINATOR Unavailable Unavailable COOK, B DENIA HOSPICE SPIRITUAL CARE COORDINATOR Unavailable Unavailable COOK, B DENIA HOSPICE SPIRITUAL CARE COORDINATOR Unavailable Unavailable COOK, B DENIA HOSPICE SPIRITUAL CARE COORDINATOR Unavailable Unavailable COOK, B DENIA HOSPICE SPIRITUAL CARE COORDINATOR Unavailable Unavailable COOK, B DENIA HOSPICE SPIRITUAL CARE COORDINATOR Unavailable Unavailable COOK, B DENIA HOSPICE SPIRITUAL CARE COORDINATOR Unavailable Unavailable COOK, B DENIA HOSPICE SPIRITUAL CARE COORDINATOR Unavailable Unavailable COOK, B DENIA HOSPICE SPIRITUAL CARE COORDINATOR Unavailable Unavailable COOK, B DENIA HOSPICE SPIRITUAL CARE COORDINATOR Unavailable Unavailable COOK, B DENIA HOSPICE SPIRITUAL CARE COORDINATOR Unavailable Unavailable COOK, B DENIA HOSPICE SPIRITUAL CARE COORDINATOR Unavailable Unavailable COOK, B DENIA HOSPICE SPIRITUAL CARE COORDINATOR Unavailable Unavailable COOK, B DENIA HOSPICE SPIRITUAL CARE COORDINATOR Unavailable Unavailable COOK, B DENIA HOSPICE SPIRITUAL CARE COORDINATOR Unavailable Unavailable COOK, B DENIA HOSPICE SPIRITUAL CARE COORDINATOR Unavailable Unavailable COOK, B DENIA HOSPICE SPIRITUAL CARE COORDINATOR Unavailable Unavailable COOK, B DENIA HOSPICE SPIRITUAL CARE COORDINATOR Unavailable Unavailable COOK, B DENIA HOSPICE SPIRITUAL CARE COORDINATOR Unavailable Unavailable COOK, B DENIA HOSPICE SPIRITUAL CARE COORDINATOR Unavailable Unavailable COOK, B DENIA HOSPICE SPIRITUAL CARE COORDINATOR Unavailable Unavailable COOK, B DENIA HOSPICE SPIRITUAL CARE COORDINATOR Unavailable Unavailable COOK, B DENIA HOSPICE SPIRITUAL CARE COORDINATOR Unavailable Unavailable COOK, B DENIA HOSPICE SPIRITUAL CARE COORDINATOR Unavailable Unavailable COOK, B DENIA HOSPICE SPIRITUAL CARE COORDINATOR Unavailable Unavailable COOK, B DENIA HOSPICE SPIRITUAL CARE COORDINATOR Unavailable Unavailable COOK, B DENIA HOSPICE SPIRITUAL CARE COORDINATOR Unavailable Unavailable COOK, B DENIA HOSPICE SPIRITUAL CARE COORDINATOR Unavailable Unavailable COOK, B DENIA HOSPICE SPIRITUAL CARE COORDINATOR Unavailable Unavailable COOK, B DENIA HOSPICE SPIRITUAL CARE COORDINATOR Unavailable Unavailable COOK, B DENIA HOSPICE SPIRITUAL CARE COORDINATOR Unavailable Unavailable COOK, B DENIA HOSPICE SPIRITUAL CARE COORDINATOR Unavailable Unavailable COOK, B DENIA HOSPICE SPIRITUAL CARE COORDINATOR Unavailable Unavailable COOK, B DENIA HOSPICE SPIRITUAL CARE COORDINATOR Unavailable Unavailable COOK, B DENIA HOSPICE SPIRITUAL CARE COORDINATOR Unavailable Unavailable COOK, B DENIA HOSPICE SPIRITUAL CARE COORDINATOR Unavailable Unavailable COOK, B DENIA HOSPICE SPIRITUAL CARE COORDINATOR Unavailable Unavailable COOK, B DENIA HOSPICE SPIRITUAL CARE COORDINATOR Unavailable Unavailable COOK, B DENIA HOSPICE SPIRITUAL CARE COORDINATOR Unavailable Unavailable COOK, B DENIA HOSPICE SPIRITUAL CARE COORDINATOR Unavailable Unavailable COOK, B DENIA HOSPICE SPIRITUAL CARE COORDINATOR Unavailable Unavailable COOK, B DENIA HOSPICE SPIRITUAL CARE COORDINATOR Unavailable Unavailable COOK, B DENIA HOSPICE SPIRITUAL CARE COORDINATOR Unavailable Unavailable COOK, B DENIA HOSPICE SPIRITUAL CARE COORDINATOR Unavailable Unavailable COOK, B DENIA HOSPICE SPIRITUAL CARE COORDINATOR Unavailable Unavailable COOK, B DENIA HOSPICE SPIRITUAL CARE COORDINATOR Unavailable Unavailable COOK, B DENIA HOSPICE SPIRITUAL CARE COORDINATOR Unavailable Unavailable COOK, B DENIA HOSPICE SPIRITUAL CARE COORDINATOR Unavailable Unavailable COOK, B DENIA HOSPICE SPIRITUAL CARE COORDINATOR Unavailable Unavailable COOK, B DENIA HOSPICE SPIRITUAL CARE COORDINATOR Unavailable Unavailable COOK, B DENIA HOSPICE SPIRITUAL CARE COORDINATOR Unavailable Unavailable COOK, B DENIA HOSPICE SPIRITUAL CARE COORDINATOR Unavailable Unavailable COOK, B DENIA HOSPICE SPIRITUAL CARE COORDINATOR Unavailable Unavailable COOK, B DENIA HOSPICE SPIRITUAL CARE COORDINATOR Unavailable Unavailable COOK, B DENIA HOSPICE SPIRITUAL CARE COORDINATOR Unavailable Unavailable COOK, B DENIA HOSPICE SPIRITUAL CARE COORDINATOR Unavailable Unavailable COOK, B DENIA HOSPICE SPIRITUAL CARE COORDINATOR Unavailable Unavailable COOK, B DENIA HOSPICE SPIRITUAL CARE COORDINATOR Unavailable Unavailable COOK, B DENIA HOSPICE SPIRITUAL CARE COORDINATOR Unavailable Unavailable COOK, B DENIA HOSPICE SPIRITUAL CARE COORDINATOR Unavailable Unavailable COOK, B DENIA HOSPICE SPIRITUAL CARE COORDINATOR Unavailable Unavailable Eaton Falanga, A Cari DRILLER AND BROACHER Unavailable Unavailable Oscar Falanga, A Cari DRILLER AND BROACHER Unavailable Unavailable Eaton Falanga, A Cari DRILLER AND BROACHER Unavailable Unavailable Eaton Falanga, A Cari DRILLER AND BROACHER Unavailable Unavailable Eaton Falanga, A Cari DRILLER AND BROACHER Unavailable Unavailable Eaton Falanga, A Cari DRILLER AND BROACHER Unavailable Unavailable Oscar Falanga, A Cari DRILLER AND BROACHER Unavailable Unavailable Eaton Falanga, A Cari DRILLER AND BROACHER Unavailable Unavailable Oscar Falanga, A Cari DRILLER AND BROACHER Unavailable Unavailable Oscar Falanga, A Cari DRILLER AND BROACHER Unavailable Unavailable Eaton Falanga, A Cari DRILLER AND BROACHER Unavailable Unavailable Oscar Falanga, A Cari DRILLER AND BROACHER Unavailable Unavailable Oscar Falanga, A Cari DRILLER AND BROACHER Unavailable Unavailable Eaton Falanga, A Cari DRILLER AND BROACHER Unavailable Unavailable Eaton Falanga, A Crai DRILLER AND BROACHER Unavailable Unavailable Oscar Falanga, A Cari DRILLER AND BROACHER Unavailable Unavailable Oscar Falanga, A Cari DRILLER AND BROACHER Unavailable Unavailable Eaton Falanga, A Cari DRILLER AND BROACHER Unavailable Unavailable Eaton Falanga, A Cari DRILLER AND BROACHER Unavailable Unavailable Oscar Falanga, A Cari DRILLER AND BROACHER Unavailable Unavailable Oscar Falanga, A Cari DRILLER AND BROACHER Unavailable Unavailable Oscar Falanga, A Cari DRILLER AND BROACHER Unavailable Unavailable Oscar Falanga, A Cari DRILLER AND BROACHER Unavailable Unavailable Eaton Falanga, A Cari DRILLER AND BROACHER Unavailable Unavailable Eaton Falanga, A Cari DRILLER AND BROACHER Unavailable Unavailable Eaton Falanga, A Cari DRILLER AND BROACHER Unavailable Unavailable Oscar Falanga, A Cari DRILLER AND BROACHER Unavailable Unavailable Oscar Falanga, A Cari DRILLER AND BROACHER Unavailable Unavailable Eaton Falanga, A Cari DRILLER AND BROACHER Unavailable Unavailable Oscar Falanga, A Cari DRILLER AND BROACHER Unavailable Unavailable OBEN, T BENITO MD Unavailable [...] F Jyoti MD Unavailable Unavailable Kunnumpurath, F Jyoit MD Unavailable Unavailable Kunnumpurath, F Jyoti MD Unavailable Unavailable Kunnumpurath, F Jyoti MD Unavailable Unavailable Kunnumpurath, F Jyoti MD Unavailable Unavailable Kunnumpurath, F Jyoti MD Unavailable Unavailable KunnumpuraMontana koch MD Unavailable Unavailable Montana Lombardo MD Unavailable Unavailable EANNIELLO, L SHANNA HOSPICE SPIRITUAL CARE COORDINATOR Unavailable Unavailable EANNIELLO, L SHANNA HOSPICE SPIRITUAL CARE COORDINATOR Unavailable Unavailable EANNIELLO, L SHANNA HOSPICE SPIRITUAL CARE COORDINATOR Unavailable Unavailable EANNIELLO, L SHANNA HOSPICE SPIRITUAL CARE COORDINATOR Unavailable Unavailable EANNIELLO, L SHANNA HOSPICE SPIRITUAL CARE COORDINATOR Unavailable Unavailable EANNIELLO, L SHANNA HOSPICE SPIRITUAL CARE COORDINATOR Unavailable Unavailable EANNIELLO, L SHANNA HOSPICE SPIRITUAL CARE COORDINATOR Unavailable Unavailable EANNIELLO, L SHANNA HOSPICE SPIRITUAL CARE COORDINATOR Unavailable Unavailable EANNIELLO, L SHANNA HOSPICE SPIRITUAL CARE COORDINATOR Unavailable Unavailable EANNIELLO, L SHANNA HOSPICE SPIRITUAL CARE COORDINATOR Unavailable Unavailable EANNIELLO, L SHANNA HOSPICE SPIRITUAL CARE COORDINATOR Unavailable Unavailable EANNIELLO, L SHANNA HOSPICE SPIRITUAL CARE COORDINATOR Unavailable Unavailable EANNIELLO, L SHANNA HOSPICE SPIRITUAL CARE COORDINATOR Unavailable Unavailable EANNIELLO, L SHANNA HOSPICE SPIRITUAL CARE COORDINATOR Unavailable Unavailable EANNIELLO, L SHANNA HOSPICE SPIRITUAL CARE COORDINATOR Unavailable Unavailable EANNIELLO, L SHANNA HOSPICE SPIRITUAL CARE COORDINATOR Unavailable Unavailable EANNIELLO, L SHANNA HOSPICE SPIRITUAL CARE COORDINATOR Unavailable Unavailable EANNIELLO, L SHANNA HOSPICE SPIRITUAL CARE COORDINATOR Unavailable Unavailable EANNIELLO, L SHANNA HOSPICE SPIRITUAL CARE COORDINATOR Unavailable Unavailable EANNIELLO, L SHANNA HOSPICE SPIRITUAL CARE COORDINATOR Unavailable Unavailable EANNIELLO, L SHANNA HOSPICE SPIRITUAL CARE COORDINATOR Unavailable Unavailable EANNIELLO, L SHANNA HOSPICE SPIRITUAL CARE COORDINATOR Unavailable Unavailable EANNIELLO, L SHANNA HOSPICE SPIRITUAL CARE COORDINATOR Unavailable Unavailable EANNIELLO, L SHANNA HOSPICE SPIRITUAL CARE COORDINATOR Unavailable Unavailable EANNIELLO, L SHANNA HOSPICE SPIRITUAL CARE COORDINATOR Unavailable Unavailable EANNIELLO, L SHANNA HOSPICE SPIRITUAL CARE COORDINATOR Unavailable Unavailable EANNIELLO, L SHANNA HOSPICE SPIRITUAL CARE COORDINATOR Unavailable Unavailable EANNIELLO, L SHANNA HOSPICE SPIRITUAL CARE COORDINATOR Unavailable Unavailable EANNIELLO, L SHANNA HOSPICE SPIRITUAL CARE COORDINATOR Unavailable Unavailable EANNIELLO, L SHANNA HOSPICE SPIRITUAL CARE COORDINATOR Unavailable Unavailable EANNIELLO, L SHANNA HOSPICE SPIRITUAL CARE COORDINATOR Unavailable Unavailable EANNIELLO, L SHANNA HOSPICE SPIRITUAL CARE COORDINATOR Unavailable Unavailable EANNIELLO, L SHANNA HOSPICE SPIRITUAL CARE COORDINATOR Unavailable Unavailable Veeravanallur Appuswamy, Viridiana Unavailable Unavail able Veeravanallur Appuswamy, Viridiana Unavailable Unavail able Veeravanallur Appuswamy, Viridiana Unavailable Unavail able Veeravanallur Appuswamy, Viridiana Unavailable Unavail able NON, PHYSICIAN STAFF Unavailable Unavailable Isabel Guidry PA-C Unavailable Unavailable Isabel Guidry PA-C Unavailable Unavailable Isabel Guidry PA-C Unavailable Unavailable Isabel Guidry PA-C Unavailable Unavailable Chao, J Addy PA-C Unavailable Unavailable Chao, J Addy PA-C Unavailable Unavailable ChaoIsabel casiano PA-C Unavailable Unavailable Chao, Isabel Daly PA-C Unavailable Unavailable ChaoIsabel casiano PA-C Unavailable Unavailable Chao, Isabel Daly PA-C Unavailable Unavailable ChaoIsabel PA-C Unavailable Unavailable TURRIN, BRANT Unavailable Unavailable [...] Unavailable OBEN, T BENITO MD Unavailable Unavailable LETICIA Benjy BENNETT Unavailable Unavailable Tristan Hernandez MD Unavailable Unavailable [...] Unavailable Unavailable Ce, Wajeeh MD Unavailable Unavailable [place], N Chloe PA Unavailable Unavailable [place], N Chloe PA Unavailable Unavailable [place], N Chloe PA Unavailable Unavailable [place], N Chloe PA Unavailable Unavailable [place], N Chloe PA Unavailable Unavailable [place], N Chloe PA Unavailable Unavailable [place], N Chloe PA Unavailable Unavailable [place], N Chloe PA Unavailable Unavailable [place], N Chloe PA Unavailable Unavailable Re-disclosure Warning [...] is protected by Article 27-F of the [facility] Public Health law. If you continue you may have access to information: Regarding HIV / AIDS; Provided by facilities licensed or operated by the [facility] Office of Mental Health; or Provided by the [facility] Office for People With Developmental Disabilities. If such information is present, then the following [facility] mandated warning applies: This information has [...] law may result in a fine or correction sentence or both. A general authorization for the release of medical or other information is NOT sufficient authorization for further disc losure. Allergies and Adverse Reactions Type Description Substance Reaction Status Data Source(s ) No Known Drug Allergies No Known Drug Allergies [facility] Food allergy SEAFOOD SEAFOOD [facility] Drug allergy shellfish derived shellfish derived ADDITIONAL UNSPECIFI ED [facility] shellfish shellfish shellfish oral edema Active eCW1 ([facility]) Macrobid Macrobid NITROFURANTOIN, MACR OCRYSTALS 25 MG / Nitrofurantoin, Monohydrate 75 MG Oral Capsule [Macrobid] Hives Active eCW1 ([facility]) shellfish shellfish shellfish oral edema Active eCW1 ([facility]) shellfish shellfish shellfish oral edema Active eCW1 ([facility]) Drug allergy Sulfa (for allergy use only) Drug allergy unknown Act xiomara eCW1 ([facility]) Drug allergy Macrobid nitrofurantoin, macr ocrystals / nitrofurantoin, monohydrate Hives Active eCW1 ([facility]) aspirin Aspirin Aspirin Hives Active eCW1 ([facility]) Drug allergy Primaquine Phosphate Primaquine Hives Active eC W1 ([facility]) Propensity to adverse reactions shellfish Propensity to ad verse reactions oral edema Active eCW1 ([facility]) Drug allergy Sulfa (for allergy use only) Drug allergy unknown Act xiomara eCW1 ([facility]) Propensity to adverse reactions shellfish Propensity to ad verse reactions oral edema Active eCW1 ([facility]) Drug allergy Sulfa (for allergy use only) Drug allergy unknown Act xiomara eCW1 ([facility]) Propensity to adverse reactions shellfish Propensity to ad verse reactions oral edema Active eCW1 ([facility]) Drug allergy Sulfa (for allergy use only) Drug allergy unknown Act xiomara eCW1 ([facility]) Propensity to adverse reactions shellfish Propensity to ad verse reactions oral edema Active eCW1 ([facility]) Drug allergy Sulfa (for allergy use only) Drug allergy unknown Act xiomara eCW1 ([facility]) Propensity to adverse reactions shellfish Propensity to ad verse reactions oral edema Active eCW1 ([facility]) Drug allergy Sulfa (for allergy use only) Drug allergy unknown Act xiomara eCW1 ([facility]) Propensity to adverse reactions shellfish Propensity to ad verse reactions oral edema Active eCW1 ([facility]) shellfish shellfish shellfish oral edema Active eCW1 ([facility]) Drug Allergy Drug Allergy NKDA MEDENT ([facility]) Encounters Encounter Providers Location Date Indications Data Source(s ) Outpatient Attender: Isabel CRAIG MD 2021 12:00:00 AM [facility] Emergency Attender: LUZMA BANGConsultant: STAFF N ON 12/27/2020 10:55:00 AM EST - 12/27/2020 01:35:00 PM [facility] Patient discharged. Emergency Attender: Addy ANTOINECConsultant: STAFF NO N 12/20/2020 11:29:00 AM EST - 12/20/2020 03:03:00 PM [facility] Patient discharged. Emergency Attender: BRANT Rothsultant: STAFF NON 12/19/2020 09:11:00 AM EST - 12/19/2020 01:41:00 PM [facility] Patient discharged. Outpatient Attender: DYLAN SHI MD [facility] 12/18 12:15:00 PM EST [facility] (Dylan Shi MD) Outpatient Attender: Cari orr FNPAttender: SABRINA KELLYConsultant: STAFF NON 12/01/2020 02:50:00 PM EST - 12/03/2020 12:25:00 PM EST [facility] Patient discharged. Outpatient Attender: Isabel CRAIG MD [id number] 11/22/2020 12:00:00 AM [facility] Emergency Attender: BRANT LUNAConsultant: STAFF NON 11/19/2020 02:16:00 PM EST - 11/19/2020 03:51:00 PM EST [facility] Patient discharged. [place] [address] [address] 11/15/2020 12:00:00 AM EST eCW1 ([facility]) Outpatient Attender: BENITO WILLETT MDConsultant: STAFF NON 11/14/2020 01:25:00 PM EST - 11/14/2020 01:25:00 PM EST [facility] Outpatient Attender: BENITO WILLETT MD Family [facility] 11/14/2020 12:00:0 0 PM EST [facility] ([facility]) Outpatient Attender: DYLAN SHI MD [facility] 11/07 01:15:00 PM EST [facility] (Dylan Shi [place]) [place] [address] [address] 10/30/2020 12:00:00 AM EST eCW1 ([facility]) [place] [address] [address] 10/25/2020 12:00:00 AM EST eCW1 ([facility]) Emergency Attender: Addy ANTOINECConsultant: STAFF NO N 10/19/2020 10:32:00 AM EST - 10/19/2020 01:51:00 PM [facility] Patient discharged. [place] [address] [address] 10/19/2020 12:00:00 AM EST eCW1 ([facility]) [place] [address] [address] 10/19/2020 12:00:00 AM EST eCW1 ([facility]) [place] [address] [address] 10/18/2020 12:00:00 AM EST eCW1 ([facility]) Emergency Attender: BRANT LUNAConsultant: STAFF NON 09/17/2020 08:46:00 AM EST - 09/17/2020 12:18:00 PM EST [facility] Patient discharged. Outpatient Attender: Jyoti Lombardo MDConsultant: STAFF NON 09/07/2020 02:36:00 PM EDT - 09/07/2020 02:36:00 PM EDT [facility] Emergency Attender: Dee Encinas MD 020 11:01:00 AM EDT - 08/05/2020 04:21:00 PM EDT [facility] Patient discharged. Outpatient Attender: Angel FinneganAdmitter: Angel Louiesucolleen nt: Angel Finnegan 07/27/2020 07:15:00 PM EDT Suicide attempt [facility] Suicide attempt Inpatient Attender: Angel FinneganAttender: AMBREEN SHAH MDAdmi tter: Angel Finnegan 07/27/2020 07:15:00 PM EDT - 08/07/2020 02:45:00 PM EDT Suicide attempt [facility] Suicide attempt Patient discharged. Outpatient Attender: AMBREEN SHAH MDAdmi tter: AMBREEN SHAH MDConsultant: AMBREEN SHAH MD 07/27/2020 07:15:00 PM EDT [facility] Outpatient Attender: CHICHI YI NPAdm itter: AMBREEN SHAH MDConsultant: AMBREEN SHAH MD 07/27/2020 07:15:00 PM EDT [facility] Outpatient Attender: CHICHI YI NPAdm itter: AMBREEN SHAH MDConsultant: AMBREEN SHAH MD 07/27/2020 07:15:00 PM EDT Suicide attempt [facility] Suicide attempt Outpatient Attender: AMBREEN SHAH MDAdmi tter: AMBREEN SHAH MDConsultant: AMBREEN SHAH MD 07/27/2020 07:15:00 PM EDT Suicide attempt [facility] Suicide attempt Outpatient Attender: AMBREEN SHAH MDAdmi tter: AMBREEN HUTCHISONAL MDConsultant: AMBREEN SHAH MD 07/27/2020 07:15:00 PM [...] attempt Outpatient Attender: AMBREEN SHAH MDAdmi tter: AMBRENE SHAH MDConsultant: AMBREEN SHAH MD 07/27/2020 07:15:00 PM EDT Suicide attempt [facility] Suicide attempt Outpatient Attender: AMBREEN SHAH MDAdmi tter: AMBREEN HUTCHISONAL MDConsultant: AMBREEN SHAH MD 07/27/2020 07:15:00 PM EDT Suicide attempt [facility] Suicide attempt Outpatient Attender: Chloe LAURENT dmitter: AMBREEN HUTCHISONAL MDConsultant: AMBREEN SHAH MD 07/27/2020 07:15:00 PM EDT Suicide attempt [facility] Suicide attempt Outpatient Attender: AMBREEN SHAH MDAdmi tter: AMBREEN SHAH MDConsultant: AMBREEN SHAH MD 07/27/2020 07:15:00 PM EDT Suicide attempt [facility] Suicide attempt Outpatient Attender: Viridiana Marin 07/27/2020 12:00:00 AM [facility] Outpatient Attender: Viridiana Marin Referrer: SHANNA ARNOLD NP 06/06/2020 12:00:00 AM EDT [facility] Outpatient Attender: Malick Grijalva mitter: Malick Hernandez MDConsultant: Malick Hernandez MD 06/01/2020 10:05:00 AM EDT Suicidal idea tion/Homicidal ideation [facility] Suicidal ideation/Homicidal ideation Inpatient Attender: Malick Hernandez MDAdmitter: Malick tobar MD 06/01/2020 10:05:00 AM EDT - 06/05/2020 11:15:00 AM EDT Suicidal ideation/Homicidal ideation [facility] Suicidal ideation/Homicidal ideation Patient discharged. Outpatient Attender: Malick Grijalva mitter: Malick Hernandez MDConsultant: Malick Hernandez MD 06/01/2020 10:05:00 AM EDT Suicidal idea tion/Homicidal ideation [facility] Suicidal ideation/Homicidal ideation Outpatient Attender: Angel FinneganAdmitter : Malick Hernandez MDConsultant: Malick Hernandez MD 06/01/2020 10:05:00 AM EDT Suicidal ideation/Shanika icidal ideation [facility] Suicidal ideation/Homicidal ideation Outpatient Attender: Angel FinneganAdmitter : Malick Hernandez MDConsultant: Malick Hernandez MD 06/01/2020 10:05:00 AM EDT Suicidal ideation/Shanika icidal ideation [facility] Suicidal ideation/Homicidal ideation Outpatient Attender: Raquel Lester mitter: Malick Hernandez MDConsultant: Malick Hernandez MD 06/01/2020 10:05:00 AM EDT Suicidal idea tion/Homicidal ideation [facility] Suicidal ideation/Homicidal ideation Outpatient Attender: Malick Grijalva mitter: Malick Hernandez MDConsultant: Malick Hernandez MD 06/01/2020 10:05:00 AM EDT Suicidal idea tion/Homicidal ideation [facility] Suicidal ideation/Homicidal ideation Outpatient 05/04/2020 04:51:00 AM EDT [facility] Dermatology [address] [place] [address] 03/23/2020 12:00:00 AM EDT eCW1 ([facility]) [facility] Dermatology [address] [place] [address] 03/09/2020 12:00:00 AM EDT eCW1 ([facility]) Outpatient Attender: Isabel CRAIG MD 03/09/2020 12:00:00 AM [facility] Outpatient Attender: Isabel CRAIG MD [id number] 03/08/2020 12:00:00 AM [facility] Outpatient 02/09/2020 04:41:00 AM [facility] Imaging Outpatient Attender: Isabel CRAIG MD 01/12/2020 12:00:00 AM [facility] Outpatient Attender: Isabel CRAIG MD [id number] 01/09/20 20 12:00:00 AM EST - 01/09/2020 01:33:24 PM [facility] Outpatient Attender: Isabel CRAIG MD 01/06/2020 12:00:[address] [address] 12/26/2019 12:00:00 AM EST eCW1 (Formerly [facility]) Outpatient Attender: DENIA [facility] SPIRITUAL CARE COORDINATOR Physical Therapy 12/21/2019 0 9:45:00 AM EST MEDENT ([facility]) [address] [address] 12/19/2019 12:00:00 AM EST eCW1 (Formerly [facility]) [address] [address] 12/19/2019 12:00:00 AM EST eCW1 (Formerly [facility]) Outpatient 12/13/2019 12:00:00 AM [facility] Outpatient Attender: Isabel CAMPOSeferrer: Isabel CRAIG MD 12/09/2019 12:00:00 AM EST Male infertility, unspecified [facility] Male infertility, unspecified Outpatient 12/09/2019 12:00:00 AM [facility] Outpatient Attender: Isabel CRAIG MDAdmitter: Isabel CRAIG MD [id number] 12/08/2019 12:00:00 AM EST - 12/08/2019 10:07:51 AM EST Male infertility, unspecified [facility] Male infertility, unspecified Outpatient Attender: Isabel CRAIG MDAaliciait ter: Isabel Graveser: Isabel CRAIG MD 12/08/2019 12:00:00 AM EST Male infertility, uns pecified [facility] Male infertility, unspecified [facility] [address] [address] 11/29/2019 12:00:00 AM EST eCW1 (Formerly [facility]) [facility] [address] [address] 11/22/2019 12:00:00 AM EST eCW1 (Formerly [facility]) Medications Medication Brand Name Start Date Product Form Dose Route Admi nistrative Instructions Pharmacy Instructions Status Indications Reaction Description Data Source(s) HM LIDOCAINE PATCH EX 11/07/2020 12:00:00 AM EST [facility] Methocarbamol 500 MG Oral Tablet Methocarbamol [...] Tablet (Eliquis) 11/07/2020 12:00:00 AM EST activ [facility] Trazodone Hydrochloride 50 MG Oral Table t traZODone HCl 50 MG Oral Tablet (DESYREL) traZODone HCl 50 MG Oral Tablet (DESYREL) 11/07/2020 12:00:0 0 AM EST [facility] Escitalopram 20 MG Oral Tablet Escitalopram Oxalate 20 MG Oral Tablet (LEXAPRO) Escitalopram Oxalate 20 MG Oral Tablet (LEXAPRO) 11/07/2020 12:00:00 AM EST 10 mg active 10 mg [facility] Divalproex Sodium 250 MG Delayed Release Oral [...] AM EST active Xolair 150 MG/ML eCW1 (Formerly [facility]) Xolair 150 MG/ML Xolair 150 MG/ML 10/19/2020 12:00:00 AM EST active Xolair 150 MG/ML eCW1 ([facility]ly [facility]) Xolair 150 MG/ML Xolair 150 MG/ML 10/19/2020 12:00:00 AM EST active Xolair 150 MG/ML eCW1 (Formerly [facility]) Betamethasone 0.0005 MG/MG Augmented Top ical Ointment Betamethasone Dipropionate Aug 0.05 % Betamethasone Dipropionate Aug 0.05 % 03/23/2020 12:00:00 AM EDT active 1 application eCW1 ([facility]) Ivermectin 3 MG Oral Tablet Ivermectin 3 MG 03/09/2020 12:00:00 AM EDT active 3 tablets eCW1 ([facility]) cetirizine hydrochloride 10 MG Oral Tablet Cetirizine HCl 10 MG Cetirizine HCl 10 MG 03/09/2020 12:00:00 AM EDT active 1 tablet eCW1 ([facility]) Syringe/Needle (Disp) 22G X 1-1/2" 1 ML (UltiCare Syringe) 1 12982 01/09/2020 12:00:00 AM EST active Use as directed. Use as directed for HCG intramuscular injection [facility] Chorionic Gonadotropin 44639 UNT/ML Inje ctable Solution Chorionic Gonadotropin 88920 UNIT Intramuscular Solution Reconstituted Chorionic Gonadotropin 33165 UNIT Intramuscular Solution Reconstituted 01/06/2020 12:00:00 AM EST 1000 U Intramuscular active Inject 1,00 0 Units into the muscle 3 (three) times a week Inject 1000 units on Thursday, Thursday and Thursday, Max Daily Dose: 1,000 Units [facility] Chorionic Gonadotropin 80881 UNT/ML Inje ctable Solution Chorionic Gonadotropin 26847 UNIT Intramuscular Solution Reconstituted Chorionic Gonadotropin 53939 UNIT Intramuscular Solution Reconstituted 12/09/2019 12:00:00 AM EST 1000 U Intramuscular active Inject 1,00 0 Units into the muscle 3 (three) times a week Inject 1000 units on Thursday, Thursday and Thursday, Max Daily Dose: 1,000 Units [facility] mometasone furoate 1 MG/ML Topical Cream Mometasone Fu roate 0.1 % Mometasone Furoate 0.1 % 11/22/2019 12:00:00 AM EST active 1 application eCW1 ([facility]) cetirizine hydrochloride 10 MG Oral Tablet [Zyrtec] Zy rtec Allergy 10 MG Zyrtec Allergy 10 MG 11/22/2019 12:00:00 AM EST active 1 tablet eCW1 ([facility]) Insurance Providers Payer name Policy type / Coverage type Policy ID Covered democrat ID Covered democrat's relationship to puente Policy Puente Plan Information [facility] ACTIVE DUTY [id number] [facility] HUMANA - O/P [id number] 18 [id number] HUMANA EAST REG O [id number] S [id number] [facility] HUMANA - PHYSICIAN [id number] 18 [id number] [facility] HUMANA - CLINIC [id number] 18 [id number] U [id number] Self [id number] EAST HUMANA - O/P [id number] 18 [id number] SELF PAY EAST [id number] SP [id number] SELF PAY EAST [id number] SP [id number] SELF PAY EAST [id number] SP [id number] U [id number] Self [id number] Problems, Conditions, and Diagnoses Code Display Name Description Problem Type Effective Dates Data Source(s) Q98.4 [id number] Klinefelter syndrome Problem 11/29/2019 12:0 0:00 AM EST eCW1 ([facility]) Q98.4 [id number] Klinefelter syndrome Problem 11/29/2019 12:0 0:00 AM EST eCW1 ([facility]) R21 [id number] Rash Problem 11/22/2019 12:00:00 AM ES T eCW1 ([facility]) Z87.2 [id number] History of cold-induced urticaria Pr oblem 11/22/2019 12:00:00 AM EST eCW1 ([facility]) R21 [id number] Rash Problem 11/22/2019 12:00:00 AM ES T eCW1 ([facility]) Z87.2 [id number] History of cold-induced urticaria Pr oblem 11/22/2019 12:00:00 AM EST eCW1 ([facility]) [id number] Personal history of urinary calculi Personal his tory of urinary calculi Diagnosis 12/20/2020 11:29:00 AM [facility] L81590 Personal history of other venous thrombo sis and embolism Personal history of other venous thrombosis and embolism Diagnosis 12/20/2020 11:29:00 AM [facility] Z7901 residential (current) use of anticoagulant 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 Diagnosis 12/20/2020 11:29:00 AM [facility] I10 Essential (primary) hypertension Essential (primary) h ypertension Diagnosis 12/20/2020 11:29:00 AM [facility] N132 Hydronephrosis with renal and ureteral c alculous obstruction Hydronephrosis with renal and ureteral calculous obstruction Diagnosis 021 11:29:00 AM [facility] R109 Unspecified abdominal pain Unspecified abdominal pain Diagnosis 12/20/2020 11:29:00 AM [facility] I313 Pericardial effusion (noninflammatory) P ericardial effusion (noninflammatory) Diagnosis 12/19/2020 09:11:00 AM [facility] L089 Local infection of the skin and subcutan eous tissue, unspecified Local infection of the skin and subcutaneous tissue, unspecified Diagnosis 12/01/2020 02:50:00 PM [facility] Z6831 Body mass index [BMI] 31.0-31.9, adult B jm mass index [BMI] 31.0-31.9, adult Diagnosis 12/01/2020 02:50:00 PM [facility] E669 Obesity, unspecified Obesity, unspecified Diagnosis 12/01/2020 02:50:00 PM [facility] R319 Hematuria, unspecified Hematuria, unspecified Diagnosi s 12/01/2020 02:50:00 PM [facility] M545 Low back pain Low back pain Diagnosis 12/01/2020 02:50:00 PM [facility] R55 Syncope and collapse Syncope and collapse Diagnosis 12/01/2020 02:50:00 PM [facility] G8929 Other chronic pain Other chronic pain Diagnosis 09/2021 02:16:00 PM [facility] 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, lumbar region Intervertebral disc disorders with radiculopathy, lumbar region Diagnosis 11/19/2020 02:16:00 PM [facility] N5312 Painful ejaculation Painful ejaculation Diagnosis 0 11/14/2020 01:25:00 PM [facility] R310 Gross hematuria Gross hematuria Diagnosis 11/14/2020 01:2 5:00 PM [facility] R3121 Asymptomatic microscopic hematuria Asymptomatic microscopic hematuria Diagnosis 10/19/2020 10:32:00 AM [facility] Y9289 Other specified places as the place of o ccurrence of the external cause Other specified places as the place of occurrence of the external cause Diagnosis 09/17/2020 08:46:00 AM [facility] U873PIM Overexertion from strenuous movement or load, initial encounter Overexertion from strenuous movement or load, initial encounter Diagnosis 09/17/2020 08:46:00 AM [facility] Y64521P Strain of muscle, fascia and tendon of l ower back, initial encounter Strain of muscle, fascia and tendon of lower back, initial encounter Diagnosis 09/17/2020 08:46:00 AM [facility] R04021 Acute embolism and thrombosi s of unspecified deep veins of unspecified lower extremity Acute embolism and thrombosis of unspeci fied deep veins of unspecified lower extremity Diagnosis 09/07/2020 02:36:00 PM EDT [facility] F3289 Other specified depressive episodes Other specif ied depressive episodes Diagnosis 09/07/2020 02:36:00 PM EDT [facility] R22.42 Localized swelling, mass and lump, left lower limb R22.42 - Localized swelling, mass and lump, left lower limb Diagnosis 08/05/2020 11:01:00 AM EDT [facility] R51 Headache R51 - Headache Diagnosis 08/05/2020 11:01:00 A M EDT [facility] R29.6 Repeated falls R29.6 - Repeated falls Diagnosis 07:15:00 PM EDT [facility] M54.2 Cervicalgia M54.2 - Cervicalgia Diagnosis 07/27/2020 07:1 5:00 PM EDT [facility] M79.643 Pain in unspecified hand M79.643 - Pain in unspecified hand Diagnosis 07/27/2020 07:15:00 PM EDT [facility] Z13.9 Encounter for screening, unspecified Z13 .9 - Encounter for screening, unspecified Diagnosis 07/27/2020 07:15:00 PM EDT [facility] F34.81 Disruptive mood dysregulation disorder F 34.81 - Disruptive mood dysregulation disorder Diagnosis 07/27/2020 07:15:00 PM EDT [facility] F43.21 Adjustment disorder with depressed mood F43.21 - Adjustment disorder with depressed mood Diagnosis 06/01/2020 10:05:00 AM EDT [facility] N46.9 Male infertility, unspecified Male infertility, unspec ified Diagnosis 12/09/2019 04:40:00 PM [facility] Surgeries/Procedures Procedure Description Date Indications Data Source(s) ECG ROUTINE ECG W/LEAST 12 LDS W/I&R 11/07/2020 12:00: 00 AM EST MEDENT (Dylan Shi MD) CV STRS TST XERS&/OR RX CONT ECG PHYS SI&R 11/07/2020 12:00:00 AM EST [facility] (Dylan Shi MD) ECHO TTHRC R-T 2D W/WOM-MODE COMPL SPEC&COLR DOP 11/07 12:00:00 AM EST [facility] (Dylan Shi MD) Brief Emotional/Behav Assessment W/ Scoring Doc Per Standard Inst 09/07/2020 12:00:00 AM EDT [facility] ([facility]) Admin Patient Focused Health Risk Assessment Instrument 09/07/2020 12:00:00 AM EDT [facility] ([facility]) THERAPEUTIC PROPHYLACTIC/DX INJECTION SUBQ/IM 12/21/19 20 12:00:00 AM EST [facility]ENT ([facility]) EDUCATION&TRAINING SELF-MGMT NONPHYS 1 PT 12/21/2019 1 2:00:00 AM EST [facility] ([facility]) PROLACTIN PROLACTIN Routine 12/09/2019 4:41 PM EST Infertility male 12/09/2019 09:41:00 PM EST Infertility male [facility] Infertility male BLOOD COUNT HEMATOCRIT HEMATOCRIT Routine 12/09/2019 4:41 PM EST Infertility male 12/09/2019 09:41:00 PM EST Infertility male [facility] Infertility male PROSTATE SPECIFIC ANTIGEN TOTAL PSA Routine 12/09/19 20 4:41 PM EST Infertility male 12/09/2019 09:41:00 PM EST Infertility male [facility] Infertility male MISCELLANEOUS TEST MISCELLANEOUS TEST Routine 12/08/2019 12:0 0 PM EST Infertility male 12/08/2019 05:00:00 PM EST Infertility male [facility] Infertility male Results ID Date Data Source [id number] 12/27/2020 12:42:00 PM EST [facility] Name Value Range Interpretation Code Description Data Marifer rce(s) Supporting Document(s) [facility] COLOR yellow NORMAL: Yellow [facility] CLARITY clear NORMAL: Clear [facility] Specific gravity of Urine by Test strip 1.015 1.001 - 1.030 [facility] pH 7 5 - 9 [facility] Glucose [Mass/volume] in Urine by Test strip NORM NORMAL: Negat xiomara [facility] Bilirubin.total [Presence] in Urine by Test strip NEG NORMAL: Negative [facility] Ketones [Presence] in Urine by Test strip NEG NORMAL: Negative [facility] Protein [Mass/volume] in Urine by Test strip NEG NORMAL: Negat [facility] Nitrite [Presence] in Urine by Test strip NEG NORMAL: Negative [facility] BLOOD 150 NORMAL: Negative A [facility] Leukocyte esterase [Presence] in Urine by Test strip NEG DELANO L: Negative [facility] Urobilinogen [Mass/volume] in Urine by Test strip NOR less fidelia n 1.0 mg/dL [facility] MICROSCOPIC See Below [facility] ital WBC 5 - 7 NORMAL: NONE SEEN A [facility] Erythrocytes [#/volume] in Urine by Test strip 40 - 50 NORMAL: NON E SEEN A [facility] EPITHELIAL FEW NORMAL: NONE SEEN [facility] Bacteria [Presence] in Urine sediment by Light microscopy Tr du NORMAL: NONE SEEN [facility] Crystals [type] in Urine sediment by Light microscopy See Below [facility] CALCIUM OX Trace NORMAL: NONE SEEN [facility] ID Date Data Source [id number] 12/20/2020 11:29:00 AM EST [facility] 1 OrderSheet [facility] Emergency Department [address] [place] [address] Phone #: ext- [phone] 12/20/2020 11:28 Patient: MARVIN LEAHY Sex: M : 1990 Age: 30yWEIGHT:90.7 kgALLERGIES: SeafoodCHIEF COMPLAINT: flank painDIAGNOSIS: Kidney stoneLAB ORDERSOrder Description Priority Entered Acknowledged InitialedCBC w Diff STAT 12:30 12/20/2020 12:56 Harry Garza RN P.A.-C;CMP STAT 12:30 12/20/2020 12:56 Harry Garza RN P.A.-C;Lipase STAT 12:30 12/20/2020 12:56 Harry Garza RN P.A.-C;Urinalysis (Clean STAT 12:30 12/20/2020 12:47 TerrellyCatch) Corey Garza RN P.A.-C;Culture, Urine STAT 14:28 12/20/2020 14:34 Harry(Urine, Clean Corey Garza RNCatch) P.A.-C;DIAGNOSTIC STUDY ORDERSOrder Description Priority Entered Acknowledged InitialedMEDICATION/IV/DRIP/FLUID ORDERSOrder Description Priority Entered Acknowledged InitialedNS IV : Bolus 1000 12:30 12/20/2020 12:57 TerrellymL, then 100 mL/hr Corey Garza RN P.A.-C;Zofran IVP 4 mg 12:30 12/20/2020 12:57 Harry Garza RN P.A.-C;Tylenol PO 1000 12:30 12/20/2020 12:57 Kvngg Corey Garza RN P.A.-C;Benadryl 25 mg IVP 12:30 12/20/2020 12:58 Harry 2 OrderSheet [facility] Emergency Department [address] [place] [address] Phone #: ext- [phone] 12/20/2020 11:28 Patient: MARVIN LEAHY Sex: M : 1990 Age: 30yX1 dose: 25 mg Corey Garza RN(NOW x1) P.A.-C;GENERAL ORDERSOrder Description Priority Entered Acknowledged InitialedNPO 12:30 12/20/2020 12:56 Harry Garza RN P.A.-C;Saline Lock 12:30 12/20/2020 12:56 Harry Corey Garza RN, P.A.-C;[Electronically signed by Harry Garza RN (16:56 12/20/2020)][Electronically signed by Corey Mace P.A.-C (22:53 12/20/2020)][Electronically locked by Harry Garza RN (16:56 12/20/2020)] Name Value Range Interpretation Code Description Data Marifer rce(s) Supporting Document(s) ID Date Data Source [id number] 12/20/2020 11:29:00 AM EST [facility] 1 Medication Reconciliation Report [facility] Emergency Department [address] [place] [address] Phone #: ext- [phone] 12/20/2020 11:28 Patient: [...] 3x a week 2 Medication Reconciliation Report [facility] Emergency Department [address] [place] [address] Phone #: ext- [phone] 12/20/2020 11:28 Patient: [...] rce(s) Supporting Document(s) ID Date Data Source [id number] 12/20/2020 11:29:00 AM EST [facility] 1 Medication Administration Record [facility] Emergency Department [address] [place] [address] Phone #: ext [phone] 12/20/2020 11:28 Patient: MARVIN LEAHY Sex: M : 1990 Age: 30yWeight: 90.7 kgHeight/Length: 68 inBMI: 30.4ALLERGIES: Seafood Date/Time Medication Administered Medication OrderedStart NS [IV] NS IV : Bolus 1000 mL, then 43930:57 12/20/2020 Dose: IV Fluids mL/Edilbreto Garza RN Rate: 100 mL/hr over 5 hour(s)---- Bolus: 1000 mL over 1 hour(s)Stop Dispensed: 1000 mL bag14:51 12/20/2020 Site: #1 left handAugustin Walsh ZOFRAN [IVP] (ONDANSETRON HCL) Zofran IVP 4 [...] rce(s) Supporting Document(s) ID Date Data Source [id number] 12/20/2020 11:29:00 AM EST [facility] 1 General Instructions [facility] Emergency Department [address] [place] [address] Phone #: ext- [phone] 12/20/2020 11:28 Patient: [...] instructions verbalized by patient. 2 General Instructions [facility] Emergency Department [address] [place] [address] Phone #: ext- [phone] 12/20/2020 11:28 Patient: MARVIN LEAHY Sex: M : 1990 Age: 30y ADDITIONAL INFORMATIONKimarquez Mcdowell with PainThe sharp cramping pain on either [...] break up the stone. 3 General Instructions [facility] Emergency Department [address] [place] [address] Phone #: ext- [phone] 12/20/2020 11:28 Patient: [...] barley, and beans. Phytates 4 General Instructions [facility] Emergency Department [address] [place] [address] Phone #: ext- [phone] 12/20/2020 11:28 Patient: [...] new findings that may affect your care.Call [phone] [phone] if you have any of these: Weakness, dizziness, or faintingWhen to seek medical adviceCall your healthcare provider right away if any of these occur: Pain that is not controlled by the medicine given 5 General Instructions [facility] Emergency Department [address] [place] [address] Phone #: ext- [phone] 12/20/2020 11:28 Patient: [...] for 8 hours and increasing bladder pressure [phone] [employer]. [address] [place] [address]. All rights reserved. This information is not [...] of cystitisis an infection. 6 General Instructions [facility] Emergency Department [address] [place] [address] Phone #: ext- [phone] 12/20/2020 11:28 Patient: [...] of: An enlarged prostate 7 General Instructions [facility] Emergency Department [address] [place] [address] Phone #: ext- [phone] 12/20/2020 11:28 Patient: [...] the foreskin when cleaning. 8 General Instructions [facility] Emergency Department [address] [place] [address] Phone #: ext- [phone] 12/20/2020 11:28 Patient: MARVIN LEAHY Sex: M [...] any findings that may affect your care.Call [phone] if any of these occur: Trouble breathing [...] to keep medicine down 9 General Instructions [facility] Emergency Department [address] [place] [address] Phone #: [phone]- [phone] 12/20/2020 11:28 Patient: MARVIN LEAHY Sex: M : 1990 Age: 30y Weakness or dizziness [phone] [employer] [place], [place] [address]. All rights reserved. This information is not [...] rce(s) Supporting Document(s) ID Date Data Source [id number] 12/20/2020 11:29:00 AM EST [facility] 1 Clinical Report - Nurses [facility] Emergency Department [address] [place] [address] Phone #: ext- [phone] 12/20/2020 11:28 Patient: MARVIN LEAHY Sex: M : 1990 Age: 30yTRIAGEArrived by EMS. Historian: patient. ( pt seen [facility] with dx kidney stone , this morning [place] ptwas found on floor rocking in pain, EMS started saline lock and gave toradol 15 mg and zofran 4 mg IVwith some relief).Triage time: 11:31 12/20/2020. Acuity: LEVEL 3.Chief Complaint: ABDOMINAL PAIN.11:49 12/20/20.This started today. He has had abdominal pain.Treatment GAME PRODUCER:None.SEPSIS SCREEN: SIRS SCREEN NEGATIVE. SEPSIS SCREEN NEGATIVE. [...] Garza RN 2 Clinical Report - Nurses [facility] Emergency Department [address] [place] [address] Phone #: ext- [phone] 12/20/2020 11:28 Patient: MARVIN LEAHY Sex: M : 1990 Age: 30y Cefdinir Oral 300 mg, 2x a day, started yesterday. --11:44 12/20/20 Harry Garza RN Zofran Oral 4 mg, 3x a day as needed. --11:45 12/20/20 Harry Garza RN.AllergiesSeafood. --11:43 2/11/21 Harry Garza RN.ADDITIONAL SURGERIES:None. --11:45 12/20/20 Harry Garza RN.Jktavvn98:49 12/20/20.SOCIAL HX: Never smoker. Alcohol use. (rarely). No drug use. No recent travel. No known contactwith a sick individual. He was offered HIV testing but declined and hepatitis C testing but declined. Hehas not traveled outside the [place]Infectious disease exposure: [...] completed. No skin integrity riskidentified. --11:49 12/20/20 QUENTIN WalshAST MEDICAL HX: No history of diabetes mellitus. No history of gastroesophageal reflux disease,gallstones or peptic ulcer disease. --11:52 12/20/20 Harry Garza RN.Fzjnviochxrcf06:49 12/20/20. Identification and allergy band on patient. To room. --11:49 12/20/20 Harry Garza RN.PHYSICAL ASSESSMENT 3 Clinical Report - Nurses [facility] Emergency Department [address] [place] [address] Phone #: ext- [phone] 12/20/2020 11:28 Patient: MARVIN LEAHY Sex: M [...] 12/20/20. Cardiac rhythm: normal sinus rhythm; (1130). assisted living administrator, NIBP monitor and pulse oximeter placed on patient; glory hole tender- Lead II; monitor alarms on; monitor strip [...] RR: 16. O2 saturation: 96%. --12:03 12/20/20 Verónica Hallman ED, ER Tech1 12:57 12/20/2020 Started bag #1 1000 [...] Garza RN 4 Clinical Report - Nurses [facility] Emergency Department [address] [place] [address] Phone #: ext- [phone] 12/20/2020 11:28 Patient: MARVIN LEAHY Sex: M [...] Patient verbalized understanding. Written instructions provided in Romanian. The patient was discharged by the physician information assistant. He was discharged home. He left ambulatory and via private vehicle. 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 --15:02 12/20/20 Harry Garza RN 14:45 12/20/20. BP: 121/52. MAP: 75. HR: 78. RR: 18. O2 saturation: 98%. Temp: 98.1 F (temporal). Pain level now: 02/16. --15:02 12/20/20 Harry Garza RN.Locked/Released at 09/2021 16:56 by Harry Garza RN Name Value Range Interpretation Code Description Data Marifer rce(s) Supporting Document(s) ID Date Data Source [id number] 12/20/2020 11:29:00 AM [facility] 1 Clinical Report - Physicians/Mid Levels [facility] Emergency Department [address] [place] [address] Phone #: ext- [phone] 12/20/2020 11:28 Patient: [...] dx kidney stone , this morning [place] pt was found on floor rocking in [...] yesterday. 2 Clinical Report - Physicians/Mid Levels [facility] Emergency Department [address] [place] [address] Phone #: ext- [phone] 12/20/2020 11:28 - [...] air. Temp: 97.5 F. Pain level now: 03/18. Have been reviewed and appear to be [...] Tests: 3 Clinical Report - Physicians/Mid Levels [facility] Emergency Department [address] [place] [address] Phone #: ext- [phone] 12/20/2020 11:28 Patient: [...] - 3.2) 4 Clinical Report - Physicians/Mid Levels [facility] Emergency Department [address] [place] [address] Phone #: ext- [phone] 12/20/2020 11:28 Patient: [...] mL/min Normal Lipase: (DERRICK: 12/20/2020 12:50) ( [facility] 12/20/2020 13:22) Final results Test Result Flag Units (Reference) LIPASE 29 U/L (13 - 60) Urinalysis: (DERRICK: 12/20/2020 12:50) ( [facility] 12/20/2020 13:40) Final results Test Result Flag [...] complaints. 5 Clinical Report - Physicians/Mid Levels [facility] Emergency Department [address] [place] [address] Phone #: ext- [phone] 12/20/2020 11:28 Patient: [...] there, thus no urology coverage currently.Will call [facility] and consult. Called urology office and pending call back/consult.14:04 12/20/20. Noted that pt is lying peacfully in bed in nad. Pending call back.Called urology (Dr. Marrufo). Discussed pt. Pt has no fever, has appropriate meds rx'ed, and has no 6 Clinical Report - Physicians/Mid Levels [facility] Emergency Department [address] [place] [address] Phone #: ext- [phone] 12/20/2020 11:28 Patient: [...] arise. 7 Clinical Report - Physicians/Mid Levels [facility] Emergency Department [address] [place] [address] Phone #: ext- [phone] 12/20/2020 11:28 Patient: MARVIN LEAHY Sex: M [...] Code Description Data Marifer e(s) Supporting Document(s) ID Date Data Source [id number] 12/25/2020 06:41:00 AM [facility] Name Value Range Interpretation Code Description Data [facility](s) Supporting Document(s) CULTURE URINE [facility] _CULTURE URINE_$$[id number]$$[id number]$$555520$$363665$$392173$$599692$$514609$$632728$$671595$$ 187766$$832137$$781493$$513108$$728460$$578353$$258775$$735492$$630356$$155366$$ 267435$$159184$$874066$$087986$$485464$$770047$$561547$$[id number] -- Continued on next page --Patient: TOSIN WONG N Order: [id number] Page 2Culture: CULTURE URINE Status: Final ==== -- Continued on next page --Patient: TOSIN WONG N Order: [id number] Page 2Culture: CULTURE URINE Status: Prelim =====$$[id number]$$[id number] DATE/TIME: 12/24/2020 16:06Culture: CULTURE URINE Status: FinalUrine Culture,Comprehensive: P1No growth in 36 - 48 hours. Previous result entered on 12/23/2020 03:00 ET No growth after 18-24 hours.P1 Test performed by: [facility] #: [id number] [address] [place] [address] [id number] [facility] [address]Medical Director : Steve Prater MD NPI #:Lab Di fiorella : 12/24/20.0618.XMT.SENT REF 12/25/20.0641.XMT.SENT REF ID Date Data Source [id number] 12/20/2020 01:39:00 PM EST [facility] Name Value Range Interpretation Code Description Data Marifer rce(s) Supporting Document(s) [facility]YSIS [facility] URINALYSIS SOURCE R [facility] COLOR yellow NORMAL: Yellow [facility] CLARITY clear NORMAL: Clear [facility] Specific gravity of Urine by Test strip 1.015 1.001 - 1.030 [facility] pH 8 5 - 9 [facility] Glucose [Mass/volume] in Urine by Test strip NORM NORMAL: Negat [facility] Bilirubin.total [Presence] in Urine by Test strip NEG NORMAL: Negative [facility] Ketones [Presence] in Urine by Test strip NEG NORMAL: Negative [facility] Protein [Mass/volume] in Urine by Test strip NEG NORMAL: Negat [facility] Nitrite [Presence] in Urine by Test strip NEG NORMAL: Negative [facility] BLOOD 250 NORMAL: Negative A [facility] Leukocyte esterase [Presence] in Urine by Test strip NEG DELANO L: Negative [facility] Urobilinogen [Mass/volume] in Urine by Test strip NOR less fidelia n 1.0 mg/dL [facility] MICROSCOPIC See Below [facility] ital WBC 1 - 3 NORMAL: NONE SEEN [facility] Erythrocytes [#/volume] in Urine by Test strip 10 - 15 NORMAL: NON E SEEN A [facility] EPITHELIAL FEW NORMAL: NONE SEEN [facility] Bacteria [Presence] in Urine sediment by Light microscopy Tr du NORMAL: NONE SEEN [facility] Crystals [type] in Urine sediment by Light microscopy See Below [facility] CALCIUM OX 2+ NORMAL: NONE SEEN A [facility] ID Date Data Source [id number] 12/20/2020 01:39:00 PM EST [facility] Name Value Range Interpretation Code Description Data Marifer rce(s) Supporting Document(s) COMPREHENSIVE METABOLIC PANEL [facility] COMPREHENSIVE METABOLIC PANEL Sodium [Moles/volume] in Serum or Plasma 139 mEq/L 134 - 153 [facility] Potassium [Moles/volume] in Serum or Plasma 3.8 mEq/L 3.6 - 5.0 [facility] Chloride [Moles/volume] in Serum or Plasma 102 mEq/L 98 - 107 [facility] Carbon dioxide, total [Moles/volume] in Serum or Plasma 28 MEQ/L 22 - 30 [facility] Glucose [Mass/volume] in Serum or Plasma 84 MG/DL 70 - 99 [facility] BUN 5 MG/DL 7 - 21 [facility] Creatinine [Mass/volume] in Serum or Plasma 1.0 MG/DL 0.7 - 1.5 [facility] BUN/CREAT 5 8 - 27 [facility] Protein [Mass/volume] in Serum or Plasma 7.4 G/DL 6.3 - 8.2 [facility] Albumin [Mass/volume] in Serum or Plasma 4.4 G/DL 3.9 - 5.0 [facility] Globulin [Mass/volume] in Serum by calculation 3.0 GM/DL 2.4 - 3.2 [facility] A/G RATIO 1.5 0.8 - 2.0 [facility] Calcium [Mass/volume] in Serum or Plasma 9.7 MG/DL 8.4 - 10.2 [facility] Bilirubin.total [Mass/volume] in Serum or Plasma <0.7 MG/DL 0.2 - 1.3 [facility] Alkaline phosphatase [Enzymatic activity/volume] in Serum or Plasma 70 U/L 38 - 126 [facility] Aspartate aminotransferase [Enzymatic activity/volume] in Serum or Plasma 27 U/L 5 - 40 [facility] Alanine aminotransferase [Enzymatic activity/volume] in Seru m or Plasma 32 U/L 7 - 56 [facility] Anion gap 3 in Serum or Plasma 9.0 mmol/L 8.0 - 16.0 [facility] AGE 30 yrs [facility] NON-AA GFR >60 mL/min [facility] ital AFR AMER GFR >60 mL/min [facility] Male GFR In terprentation 20-49 [...] >32 mL/min Normal ID Date Data Source [id number] 12/20/2020 01:22:00 PM EST [facility] Name Value Range Interpretation Code Description Data Marifer rce(s) Supporting Document(s) Lipase [Enzymatic activity/volume] in Serum or Plasma 29 U/L 13 - 60 [facility] ID Date Data Source [id number] 12/20/2020 01:18:00 PM EST [facility] Name Value Range Interpretation Code Description Data Marifer rce(s) Supporting Document(s) CBC W/AUTOMATED DIFF [facility] COMPLETE BLOOD COUNT Leukocytes [#/volume] in Blood by Automated count 5.5 10^3/uL 4.2 - 1 1.0 [facility] Erythrocytes [#/volume] in Blood by Automated count 4.70 10^6/uL 4. 50 - 6.30 [facility] Hemoglobin [Mass/volume] in Blood 13.9 g/dL 14.0 - 16.0 L [facility] Hematocrit [Volume Fraction] of Blood by Automated count 42.4 % 4 1.0 - 51.0 [facility] Erythrocyte mean corpuscular volume [Entitic volume] by Auto mated count 90.2 fL 80.0 - 94.0 [facility] Erythrocyte mean corpuscular hemoglobin [Entitic mass] by Automated count 29.6 pg 27.0 - 34.0 [facility] Erythrocyte mean corpuscular hemoglobin concentration [Mass/volume] by Automated count 32.8 g/dL 31.0 - 36.0 [facility] Erythrocyte distribution width [Ratio] by Automated count 12.4 % 11.5 - 14.8 [facility] Platelets [#/volume] in Blood by Automated count 192 10^3/uL 150 - 45 0 [facility] Platelet mean volume [Entitic volume] in Blood by Automated count 11.0 fL 7.4 - 10.4 H [facility] Neutrophils/100 leukocytes in Blood by Automated count 48.0 % 37. 0 - 80.0 [facility] Lymphocytes/100 leukocytes in Blood by Manual count 40.8 % 25.0 - 40.0 H [facility] Monocytes/100 leukocytes in Blood by Automated count 8.4 % 3.0 - 8.0 H [facility] Eosinophils/100 leukocytes in Blood by Automated count 2.2 % 0.0 - 7.0 [facility] Basophils/100 leukocytes in Blood by Automated count 0.4 % 0.0 - 2.0 [facility] %IG 0.2 % 0.0 - 0.0 H [facility] %NRBC 0.0 % 0.0 - 0.0 [facility] Neutrophils [#/volume] in Blood by Automated count 2.62 10^3/uL 2.00 - 6.90 [facility] Lymphocytes [#/volume] in Blood by Automated count 2.23 10^3/uL 0.60 - 3.40 [facility] Monocytes [#/volume] in Blood by Automated count 0.46 10^3/uL 0.00 - 0.90 [facility] Eosinophils [#/volume] in Blood by Automated count 0.12 10^3/uL 0.00 - 0.70 [facility] Basophils [#/volume] in Blood by Automated count 0.02 10^3/uL 0.00 - 0.20 [facility] #IG 0.01 10^3/uL 0.00 - 0.10 [facility] #NRBC 0.00 10^3/uL 0.00 - 0.00 [facility] ospital MANUAL DIFF SEE BELOW [facility] Segmented neutrophils/100 leukocytes in Blood by Manual count 71 % 37 - 80 [facility] %LYMPH 24 % 25 - 40 L [facility] %MONO 3 % 3 - 8 [facility] %EOS 2 % 0 - 7 [facility] RBC MORPH SEE BELOW [facility] Anisocytosis [Presence] in Blood by Light microscopy 1+ DELANO L: NONE SEEN A [facility] { SICKLE CELL (NORMAL: NONE SEEN ) Platelet adequacy [Presence] in Blood by Light microscopy NORMAL NORMAL: NORMAL [facility] COMMENT: ID Date Data Source [id number] 12/19/2020 02:54:00 PM EST [facility] [address] [place] [address] PHONE: [phone] FAX: [phone] Name .................. : LIDIAINDIGO ADDISONEW Cristino Acct Number.................. : [id number] ROOM. ................. : TR-02 Number ................... : [id number] Stay type ............. : E/R Discharge Date......... ... : Admit Date ......... : 12/19/20 Admit Phys .................... : CHERYL OLVERA Date of ....... : 1990 Family Phys ................... : NON STAFF Phone .................. : [phone] Age ................................ : 30 Film# .................. .:[id number] Sex ................................. : M Unsigned transcriptions are preliminary reports and do not represent a medical or legal document CT ABD & PELV W/[place] OR[place] W/[place] [id number] COMPLETE:12/19/20 11:02 [facility] 3982 Reason(s): sudden left flank pain CT [...] By Nimco Bradley MD , 12/19/20 14:54, KGDenny Transcribe Initials: SSR, Transcribe Date: 12/19/20 13:05, Dictation Date: Page 1 of 2 [place] [address] PHONE: [phone] FAX: [phone] Name .................. : TOSIN ADDISONEW Critsino Acct Number.................. : [id number] ROOM. ................. : MR Number ................... : [id number] Stay type ............. : E/R Discharge Date......... ... : Admit Date ......... : 12/19/20 Admit Phys .................... : CHERYL OLVERA Date of ....... : 1990 Family Phys ................... : NON STAFF Phone .................. : [phone] Age ................................ : 30 Film# .................. .:[id number] Sex ................................. : M Unsigned transcriptions are preliminary reports and do not represent a medical or legal document CT ABD & PELV W/[place] OR[place] W/[place] [id number] COMPLETE:12/19/20 11:02 [facility] 3982 Reason(s): sudden left flank pain Copy for: 010 EMERGENCY SRV Copy for: EMERGENCY DEPT via modem Copy for: 710 MED REC Page 2 of 2 Name Value Range Interpretation Code Description Data Marifer rce(s) Supporting Document(s) ID Date Data Source [id number] 12/19/2020 09:11:00 AM EST [facility] 1 OrderSheet [facility] Emergency Department [address] [place] [address] Phone #: ext- [phone] 12/19/2020 09:10 Patient: [...] 1 09:41 12/19/2020 09:51 Letty, 2 OrderSheet [facility] Emergency Department [address] [place] [address] Phone #: ext- [phone] 12/19/2020 09:10 Patient: MARVIN LEAHY Sex: M : 1990 Age: 30ydose: 4 mg (NOW Turrin, Brant Aster R.N.x1) Bharat;Ativan IVP 2 mg 09:41 12/19/2020 09:51 Letty(HIGH ALERT Cheryl, Brant Aster R.N.MEDICATION) Bharat;NS IV : Bolus 250 09:42 12/19/2020 10:05 Letty,mL, then 100 mL/hr Brant Luna R.N., M.D.;Flomax PO 0.4 mg 10:55 12/19/2020 11:28 Letty(NOW x1, Do not Cheryl, Brant Aster R.N.crush or chew) Bharat;cefTRIAXone 10:56 12/19/2020 11:28 Letty,(1gm/50ml) IVPB Cheryl, Brant Aster R.N.1000 mg with MYangDYang;Dextrose 50 mlspike bag (D5W)GENERAL ORDERSOrder Description Priority [...] rce(s) Supporting Document(s) ID Date Data Source [id number] 12/19/2020 09:11:00 AM [facility] 1 Medication Reconciliation Report [facility] Emergency Department [address] [place] [address] Phone #: ext- [phone] 12/19/2020 09:10 Patient: [...] the Emergency Department: 2 Medication Reconciliation Report [facility] Emergency Department [address] [place] [address] Phone #: ext- [phone] 12/19/2020 09:10 Patient: MARVIN LEAHY Sex: M : 1990 Age: 30yAtivan [IVP] IVP 2 mg, administered: 09:51 12/19/2020Zofran [IVP] IVP 4 mg, administered: 09:51 12/19/2020Toradol [IVP] IVP 15 mg, administered: 09:47 12/19/2020NS [IV] IV Fluids bolus 250 mL over [...] -- Dispense 12 tablet. Refills: 0. Substitution permitted.[address] ; [place] [address]. .Flomax 0.4 mg capsule Take 1 capsule once a day for 7 days -- Dispense 7 capsule. Refills: 0.Substitution permitted.[address] ; [place] [address]. .cefdinir 300 mg capsule Take 1 capsule twice a day for 7 days -- Dispense 14 capsule. Refills: 0.Substitution permitted.[address] ; [place] [address]. .Zofran 4 mg tablet Take 1 tablet three times a day as needed for 4 days -- Dispense 12 tablet. Refills: 0.Substitution permitted.[address] ; [place] [address]. . -- Brant Luna M.D. Name Value Range Interpretation Code Description Data Marifer rce(s) Supporting Document(s) ID Date Data Source [id number] 12/19/2020 09:11:00 AM EST [facility] 1 Medication Administration Record [facility] Emergency Department [address] [place] [address] Phone #: pvd- [phone] 12/19/2020 09:10 Patient: MARVIN LEAHY Sex: M : 1990 Age: 30yWeight: 90.7 kgHeight/Length: 68 inBMI: 30.4ALLERGIES: Seafood Date/Time Medication Administered Medication OrderedGiven TORADOL [IVP] (KETOROLAC Toradol 15 mg IVP X1 dose: 15 mg09:47 12/19/2020 TROMETHAMINE) (NOW x1)Aster Saenz RYangNYang Dose: 15 mg IVP Site: #1 left [...] NS IV : Bolus 250 mL, then 11463:05 12/19/2020 Dose: IV Fluids mL/hrAster Saenz R.NYang Bolus: 250 mL over 15 minute(s)---- Dispensed: 250 mL bagStop Site: #1 left hand13:12 12/19/2020Aster Saenz R.NYangGiven FLOMAX [PO] (TAMSULOSIN HCL) Flomax PO 0.4 mg (NOW x1, Do11:28 12/19/2020 Dose: 0.4 mg Capsules PO not crush or chew)Aster Saenz R.N.Start CEFTRIAXONE (1GM/50ML) [IVPB] cefTRIAXone (1gm/50ml) IVPB11:28 12/19/2020 Dose: 1 gm IVPB 1000 mg with Dextrose 50 ml spikeAster Saenz R.N. Rate: 100 mL/hr over 30 minute(s) bag (D5W)---- Dispensed: 50 mL bagStop Site: #1 left hand12:00 12/19/2020Aster Saenz R.N. Name Value Range Interpretation Code Description Data Marifer rce(s) Supporting Document(s) ID Date Data Source [id number] 12/19/2020 09:11:00 AM EST [facility] 1 General Instructions [facility] Emergency Department [address] [place] [address] Phone #: ext- [phone] 12/19/2020 09:10 Patient: [...] 0. Substitution permi tted. 2 General Instructions [facility] Emergency Department [address] [place] [address] Phone #: ext- [phone] 12/19/2020 09:10 Patient: MARVIN LEAHY Sex: M : 1990 Age: 30yPharmacy - [facility] [phone] ; [place] [address]. .Flomax 0.4 mg capsule Take 1 capsule once a day for 7 days -- Dispense 7 capsule. Refills: 0.Substitution permitted.[facility] [id number] ; [place] [address]. .cefdinir 300 mg capsule Take 1 capsule twice a day for 7 days -- Dispense 14 capsule. Refills: 0.Substitution permitted.[facility] ; [place] [address]. .Zofran 4 mg tablet Take 1 tablet three times a day as needed for 4 days -- Dispense 12 tablet. Refills: 0.Substitution permitted.[facility] [id number] ; [place] [address]. .Follow-up:Return to the emergency department as needed. Follow up with a inspector rough castings and urologist in three dayseven if well. Call for an appointment. Reason for referral: evaluation and treatment. Summary of careprovided to patient via paper.Understanding of the discharge instructions verbalized by patient. Expected course of illness, dischargeinstructions, activity level, diet, prescriptions x4, follow-up appointment and risks and benefits of treatmentreviewed with patient and understanding verbalized. Agrees to plan of care. ADDITIONAL INFORMATIONKidney Stone with Pain 3 General Instructions [facility] Emergency Department [address] [place] [address] Phone #: ext- [phone] 12/19/2020 09:10 Patient: MARVIN LEAHY Sex: M [...] Various types of direct surgery through the [facility] 4 General Instructions [facility] Emergency Department [address] [place] [address] Phone #: ext- [phone] 12/19/2020 0 9:10 [...] kidney stones. Eat a 5 General Instructions [facility] Emergency Department [address] [place] [address] Phone #: ext- [phone] 12/19/2020 09:10 [id number] Sex: M : 1990 Age: 30y normal [...] new findings that may affect your care.Call [phone] if you have any of these: Weakness, [...] lots of blood clots 6 General Instructions [facility] Emergency Department [address] [place] [address] Phone #: ext- [phone] 12/19/2020 09:10 Patient: MARVIN LEAHY Sex: M : 1990 Age: 30y Foul-smelling or cloudy urine Unable to pass urine for 8 hours and increasing bladder pressure [phone] [employer] [place] [address]. All rights reserved. This information is not intended as asubstitute for professional medical care. Always follow your healthcare professional's instructions. You have been given the following additional information: Kidney Stone w/ Colic No strenuous activity until better. Return to work in three days.(Electronically signed by Brant Luna M.D. 12/19/2020 13:49) Name Value Range Interpretation Code Description Data Marifer rce(s) Supporting Document(s) ID Date Data Source [id number] 12/19/2020 09:11:00 AM EST [facility] 1 Clinical Report - Nurses [facility] Emergency Department [address] [place] [address] Phone #: ext- [phone] 12/19/2020 09:10 Patient: MARVIN LEAHY Sex: M : 1990 Age: 30yTRIAGEArrived by EMS. Historian: patient.Chief Complaint: (left flank/ LLQ/ left groin pain).Onset. (0200). No fever, testicular pain or inguinal swelling. 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 Medications given- ondansetron (fentanyl 50 [...] Saenz R.N. 2 Clinical Report - Nurses [facility] Emergency Department [address] [place] [address] Phone #: ext- [phone] 12/19/2020 09:10 Patient: MARVIN LEAHY Sex: M [...] placed in 3 Clinical Report - Nurses [facility] Emergency Department [address] [place] [address] Phone #: ext- [phone] 12/19/2020 09:10 Patient: MARVIN LEAHY Sex: M : 1990 Age: 30ylowest position. Brakes of bed on. Patient ready for evaluation. --09:17 12/19/20 Aster Saenz R.N.09:30 12/19/20. BP: 129/95. MAP: 106. HR: 69. RR: 16. O2 saturation: 96%. --09:34 12/19/20 [facility] Juij525:47 12/19/2020 Toradol (Ketorolac Tromethamine) IVP 15 mg [...] 83. HR: 82. RR: 14. --09:59 12/19/20 [facility] Opjz454:05 12/19/2020 Started bag #1 250 mL IV [...] Patient returned from CT by stretcher with dynamics ax technical architect. --10:50 12/19/20 Aster Saenz R.N.11:00 12/19/20. BP: 116/50. MAP: 72. HR: 96. RR: 14. O2 saturation: 100%. --11:00 12/19/20 [place] [employer] [facility] Dqlp583:28 12/19/2020 Flomax (Tamsulosin HCl) PO Capsules 0.4 [...] medication administration. 4 Clinical Report - Nurses [facility] [place] [address] Phone #: ext- [phone] 12/19/2020 09:10 Patient: MARVIN LEAHY Sex: M : 1990 Age: 30y Information reviewed with patient. Verbalizes understanding. --11:28 12/19/20 Aster Saenz R.N. 11:58 12/19/20. BP: 106/50. MAP: 68. HR: 72. RR: 16. O2 saturation: 99%. --11:59 12/19/20 [place] [facility] 12:58 12/19/20. BP: 110/94. MAP: 99. HR: 82. RR: 16. O2 saturation: 100%. --12:58 12/19/20 Won signal timer [facility] Tech1 12:00 12/19/2020 CEFTRIAXONE (1GM/50ML) IVPB via IV site #1 Discontinued: completed. Total amount infused: 50 mL. IV patency established. IV site checked: no pain, redness, or swelling. IV flushed thoro ughly. --13:12 12/19/20 Aster Saenz R.N. 13:12 12/19/2020 [...] Patient verbalized understanding. Written instructions provided in Romanian. --13:41 12/19/20 Aster Saenz R.N.Locked/Released at 12/19/2020 13:41 by Aster Saenz R.N. Name Value Range Interpretation Code Description Data Marifer rce(s) Supporting Document(s) ID Date Data Source [id number] 12/19/2020 09:11:00 AM [facility] 1 Clinical Report - Physicians/Mid Levels [facility] Emergency Department [address] [place] [address] Phone #: ext- [phone] 12/19/2020 09:10 Patient: [...] received Fentanyl 50 mcg IV per EMS GAME PRODUCER). No recent travel. Similar symptoms previously. None. [...] day. 2 Clinical Report - Physicians/Mid Levels [facility] Emergency Department [address] [place] [address] Phone #: ext- [phone] 12/19/2020 09:10 Patient: [...] saturation: 96%. Temp: 98.1 F. Pain levelnow: 10. Have been reviewed. Oxygen saturation normal.Appearance: Alert. [...] results 3 Clinical Report - Physicians/Mid Levels [facility] Emergency Department [address] [place] [address] Phone #: ext- [phone] 12/19/2020 09:10 Patient: MARVIN LEAHY Sex: M [...] Male GFR Interprentation 20-49 yrs >60 mL/min Iqnmgd95-81 yrs >56 mL/min Normal 60-69 yrs >49 mL/min Normal 70-79yrs>42 mL/min Normal 80 and above >35 mL/min Normal Female GFRInterpretation 20-39 yrs >60 mL/min Normal 40-49 yrs >58 mL/min 4 Clinical Report - Physicians/Mid Levels [facility] Emergency Department [address] [place] [address] Phone #: ext- [phone] 12/19/2020 09:10 Patient: MARVIN LEAHY Sex: M : 1990 Age: 30y Normal 50-59 yrs >51 mL/min Normal 60-69 yrs >45 mL/min Normal 70-79 yrs >39 mL/min Normal 80 and above >32 mL/min Normal Lipase: (DERRICK: 12/19/2020 09:50) ( [facility] 12/19/2020 10:18) Final results Test Result Flag Units (Reference) LIPASE 25 U/L (13 - 60) Urinalysis: (DERRICK: 12/19/2020 09:00) ( [facility] 12/19/2020 10:20) Final results Test Result Flag [...] NONE Lactic Acid: (DERRICK: 12/19/2020 09:50) ( [facility] 12/19/2020 10:05) Final results Test Result Flag Units (Reference) LACTIC ACID 1.4 MMOL/L (0.2 - 2.2) CT ABD PEL W/O Oral W/O IV Contrast: (DERRICK: 12/19/2020 09:41) ( [facility] 12/19/2020 11:02) In Progress CT ABD Reason(s): [...] information displayed on this report is compiled fromDigiMeld submissions to the Department, and accurately reflects the information as submitted by [employer]. 5 Clinical Report - Physicians/Mid Levels [facility] Emergency Department [address] [place] [address] Phone #: [phone] 12/19/2020 09:10 Patient: MARVIN LEAHY Sex: M : 1990 Age: 30y This report was requested by: Brant Luna Reference #: [id number] My Prescriptions Patient Name: Marvin LeahyBirth Date: 1990 Address: [address] [place], [place] [address]Sex: Male Rx Written Rx Dispensed Drug Quantity Days Supply Prescriber Name Payment Method Dispenser 09/17/2020 09/17/2020 hydrocodone-acetaminophen 5-325 mg tablet 12 3 Brant Luna MD [facility] [phone] * - Drugs marked with an [...] HEART 6 Clinical Report - Physicians/Mid Levels [facility] Emergency Department [address] [place] [address] Phone #: [phone]- [phone] 12/19/2020 09:10 Patient: [...] -- Dispense 12 tablet. Refills: 0. Substitution permitted.[address] ; [place] [address]. .Flomax 0.4 mg capsule Take 1 capsule once a day for 7 days -- Dispense 7 capsule. Refills: 0.Substitution permitted.[address] ; [place] [address]. .cefdinir 300 mg capsule Take 1 capsule twice a day for 7 days -- Dispense 14 capsule. Refills: 0.Substitution permitted.[address] ; [place] [address]. .Zofran 4 mg tablet Take 1 tablet three times a day as needed for 4 days -- Dispense 12 tablet. Refills: 0.Substitution permitted.[address] ; [place] [address]. . 7 Clinical Report - Physicians/Mid Levels [facility] Emergency Department [address] [place] [address] Phone #: [phone]- [phone] 12/19/2020 09:10 Patient: MARVIN LEAHY Sex: M : 1990 Age: 30y Follow-up: Return to the emergency department as needed. Follow up with a inspector rough castings and urologist in three days even if well. Call for an appointment. Reason for referral: evaluation and treatment. Summary of care provided to donny ient via paper. Understanding of the discharge instructions verbalized by patient. Expected course of illness, discharge instructions, activity level, diet, prescriptions x4, follow-up appointment and risks and benefits of treatment reviewed with patient and understanding verbalized. Agrees to plan of care.(Electronically signed by Brant Luna M.D. 12/19/2020 13:49) Name Value Range Interpretation Code Description Data Marifer rce(s) Supporting Document(s) ID Date Data Source [id number] 12/19/2020 11:16:00 AM EST [facility] Name Value Range Interpretation Code Description Data Marifer rce(s) Supporting Document(s) CBC W/AUTOMATED DIFF [facility] COMPLETE BLOOD COUNT Leukocytes [#/volume] in Blood by Automated count 5.6 10^3/uL 4.2 - 1 1.0 [facility] Erythrocytes [#/volume] in Blood by Automated count 4.55 10^6/uL 4. 50 - 6.30 [facility] Hemoglobin [Mass/volume] in Blood 13.6 g/dL 14.0 - 16.0 L [facility] Hematocrit [Volume Fraction] of Blood by Automated count 41.3 % 4 1.0 - 51.0 [facility] Erythrocyte mean corpuscular volume [Entitic volume] by Auto mated count 90.8 fL 80.0 - 94.0 [facility] Erythrocyte mean corpuscular hemoglobin [Entitic mass] by Automated count 29.9 pg 27.0 - 34.0 [facility] Erythrocyte mean corpuscular hemoglobin concentration [Mass/volume] by Automated count 32.9 g/dL 31.0 - 36.0 [facility] Erythrocyte distribution width [Ratio] by Automated count 12.7 % 11.5 - 14.8 [facility] Platelets [#/volume] in Blood by Automated count 175 10^3/uL 150 - 45 0 [facility] Platelet mean volume [Entitic volume] in Blood by Automated count 11.4 fL 7.4 - 10.4 H [facility] Neutrophils/100 leukocytes in Blood by Automated count 53.6 % 37. 0 - 80.0 [facility] Lymphocytes/100 leukocytes in Blood by Manual count 32.4 % 25.0 - 40.0 [facility] Monocytes/100 leukocytes in Blood by Automated count 11.8 % 3.0 - 8.0 H [facility] Eosinophils/100 leukocytes in Blood by Automated count 1.4 % 0.0 - 7.0 [facility] Basophils/100 leukocytes in Blood by Automated count 0.4 % 0.0 - 2.0 [facility] %IG 0.4 % 0.0 - 0.0 [facility] 0.[facility] % 0.0 - 0.0 [facility] Neutrophils [#/volume] in Blood by Automated count 3.00 10^3/uL 2.00 - 6.90 [facility] Lymphocytes [#/volume] in Blood by Automated count 1.81 10^3/uL 0.60 - 3.40 [facility] Monocytes [#/volume] in Blood by Automated count 0.66 10^3/uL 0.00 - 0.90 [facility] Eosinophils [#/volume] in Blood by Automated count 0.08 10^3/uL 0.00 - 0.70 [facility] Basophils [#/volume] in Blood by Automated count 0.02 10^3/uL 0.00 - 0.20 [facility] #IG 0.02 10^3/uL 0.00 - 0.10 [facility] ospital #NRBC 0.00 10^3/uL 0.00 - 0.00 [facility] ospital MANUAL DIFF NOT INDICATED [facility] RBC MORPH NOT INDICATED [facility] Ho spital ID Date Data Source [id number] 12/19/2020 10:18:00 AM [facility] Name Value Range Interpretation Code Description Data Marifer rce(s) Supporting Document(s) Lipase [Enzymatic activity/volume] in Serum or Plasma 25 U/L 13 - 60 [facility] ID Date Data Source [id number] 12/19/2020 10:18:00 AM [facility] Name Value Range Interpretation Code Description Data Marifer rce(s) Supporting Document(s) COMPREHENSIVE METABOLIC PANEL [facility] COMPREHENSIVE METABOLIC PANEL Sodium [Moles/volume] in Serum or Plasma 138 mEq/L 134 - 153 [facility] Potassium [Moles/volume] in Serum or Plasma 3.8 mEq/L 3.6 - 5.0 [facility] Chloride [Moles/volume] in Serum or Plasma 103 mEq/L 98 - 107 [facility] Carbon dioxide, total [Moles/volume] in Serum or Plasma 25 MEQ/L 22 - 30 [facility] Glucose [Mass/volume] in Serum or Plasma 98 MG/DL 70 - 99 [facility] BUN 8 MG/DL 7 - 21 [facility] Creatinine [Mass/volume] in Serum or Plasma 0.9 MG/DL 0.7 - 1.5 [facility] BUN/CREAT 9 8 - 27 [facility] Protein [Mass/volume] in Serum or Plasma 6.8 G/DL 6.3 - 8.2 [facility] Albumin [Mass/volume] in Serum or Plasma 4.3 G/DL 3.9 - 5.0 [facility] Globulin [Mass/volume] in Serum by calculation 2.5 GM/DL 2.4 - 3.2 [facility] A/G RATIO 1.7 0.8 - 2.0 [facility] Calcium [Mass/volume] in Serum or Plasma 9.6 MG/DL 8.4 - 10.2 [facility] Bilirubin.total [Mass/volume] in Serum or Plasma <0.7 MG/DL 0.2 - 1.3 [facility] Alkaline phosphatase [Enzymatic activity/volume] in Serum or Plasma 67 U/L 38 - 126 [facility] Aspartate aminotransferase [Enzymatic activity/volume] in Serum or Plasma 27 U/L 5 - 40 [facility] Alanine aminotransferase [Enzymatic activity/volume] in Seru m or Plasma 29 U/L 7 - 56 [facility] Anion gap 3 in Serum or Plasma 10.0 mmol/L 8.0 - 16.0 [facility]GE 30 [facility] GFR >60 mL/min [facility] ital AFR AMER GFR >60 mL/min [facility] Ho spital Male GFR In terprentation 20-49 [...] >32 mL/min Normal ID Date Data Source [id number] 12/19/2020 10:05:00 AM [facility] Name Value Range Interpretation Code Description Data Marifer rce(s) Supporting Document(s) Lactate [Moles/volume] in Serum or Plasma 1.4 MMOL/L 0.2 - 2.2 [facility] ID Date Data Source [id number] 12/19/2020 10:20:00 AM [facility] Name Value Range Interpretation Code Description Data Marifer rce(s) Supporting Document(s) [facility] S[facility] R [facility] COLOR brown NORMAL: Yellow [facility]sp[facility] CLARITY turbid NORMAL: Clear [facility] spital Specific gravity of Urine by Test strip 1.015 1.001 - 1.030 [facility] pH 8 5 - 9 [facility] Glucose [Mass/volume] in Urine by Test strip NORM NORMAL: Negat xiomara [facility] Bilirubin.total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 12/01/2020 14:49 Patient: [...] for eval, but decided to stop at [facility] prior to coming to the ER for his pain. While at [facility] he ahd a sycopal episode and [...] Medications: 2 Clinical Report - Physicians/Mid Levels [facility] Emergency Department [address] [place] [address] Phone #: ext- [phone] 12/01/2020 14:49 Patient: [...] left brachioradialis 2+. 3 Clinical Report - Physicians/Mid [facility] Emergency Department [address] [place] [address] Phone #: ext- [phone] 12/01/2020 14:49 Patient: [...] NOT INDICATED RBC MORPH NOT INDICATED CMP: (DERRICK: 12/01/2020 17:01) ( MsgRcvd 12/01/2020 17:58) Final results Test Result Flag Units (Reference) 4 Clinical Report - Physicians/Mid Levels [facility] Emergency Department [address] [place] [address] Phone #: ext- [phone] 12/01/2020 14:49 Patient: [...] Male GFR Interprentation 20-49 yrs >60 mL/min Kajnux37-48 yrs >56 mL/min Normal 60-69 yrs >49 mL/min Normal 70-79yrs>42 mL/min Normal 80 and above >35 mL/min Normal Female GFRInterpretation 20-39 yrs >60 mL/min Normal 40-49 yrs >58 mL/minNormal 50-59 yrs >51 mL/min Normal 60-69 yrs >45 mL/min Uefvft48-97 yrs >39 mL/min Normal 80 and above >32 mL/min NormalLipase: (DERRICK: 12/01/2020 17:01) ( [facility] 12/01/2020 17:58) Final results Test Result Flag Units (Reference) LIPASE 33 U/L (13 - 60)PT/PTT: (DERRICK: 12/01/2020 17:01) ( [facility] 12/01/2020 17:42) Final results Test Result Flag Units (Reference) PROTIME 14.0 SECONDS (11.0 - 15.5) INR 1.03 (0.93 - 1.23) PTT 33.1 SECONDS (24.8 - 36.7) \\BLDo\\INR INTERPRETATION\\BLDx\\ Therapeutic range for Coumadin andrelated oral anticoagulants. -International Normalized Ratio (INR): 2.0 - 3.0 for VenousThrombosis, Pulmonary Embolus, Tissue heart valves, Acute CA Atrial Fibrillation, Valvular heart diseaseand recurrent Systemic Embolism. -International Normalized Ratio (INR): 2.5 - 3.5 forMechanical Prosthetic valve.Troponin-T: (DERRICK: 12/01/2020 17:01) ( [facility] 12/01/2020 17:45) Final results Test Result Flag Units (Reference) TROPONIN T <0.01 NG/ML (0.00 - 0.10) TROPONIN T0.1 ng/ml Recommended as the clinical threshold value forTroponin T.TSH: (DERRICK: 12/01/2020 17:01) ( [facility] 12/01/2020 17:58) Final results Test Result Flag Units (Reference) TSH 1.15 uIU/mL (0.47 - 5.01) 5 Clinical Report - Physicians/Mid Levels [facility] Emergency Department [address] [place] [address] Phone #: ext- [phone] 12/01/2020 14:49 Patient: MARVIN LEAHY Sex: M : 1990 Age: 30y Urinalysis: (DERRICK: 12/01/2020 17:40) ( [facility] 12/01/2020 17:58) Final results Test Result Flag [...] (NORMAL: NONE Magnesium: (DERRICK: 12/01/2020 17:01) ( [facility] 12/01/2020 17:58) Final results Test Result Flag [...] and LBP, but chose to stop at [employer] for food before coming to the ER. [...] IMPRESSION: 6 Clinical Report - Physicians/Mid Levels [facility] Emergency Department [address] [place] [address] Phone #: ext- [phone] 12/01/2020 14:49 Patient: MARVIN LEAHY Sex: M : 1990 Age: 30yNo evidence of significant disc pathology noted on the current study. Specifically, no significantspinal canal or neural edilma inal stenosis.CT L-Spine [id number] OF THE LUMBAR SPINE WITHOUT CONTRAST, 09/17/20: [...] to admission. 7 Clinical Report - Physicians/Mid Levels [facility] Emergency Department [address] [place] [address] Phone #: ext- [phone] 12/01/2020 14:49 Patient: MARVIN LEAHY Sex: M : 1990 Age: 30yCLINICAL IMPRESSION Syncope of unknown cause. Microscopic hematuria.(Electronically signed by Corey Mace P.A.-C 12/01/2020 22:01) Name Value Range Interpretation Code Description Data Marifer rce(s) Supporting Document(s) ID Date Data Source [id number] 12/01/2020 02:50:00 PM EST [facility] Addenda for MARVIN LEAHY VisitID: [id number] Date: 18:54Faxed Overview to U; Faxed Medication reconciliation request to [employer].(Electronically signed by Nestor Ann - 12/01/2020 18:54) Name Value Range Interpretation Code Description Data Marifer rce(s) Supporting Document(s) ID Date Data Source [id number] 12/01/2020 10:30:00 PM EST [facility] Name Value Range Interpretation Code Description Data Marifer rce(s) Supporting Document(s) TROPONIN T <0.01 NG/ML 0.00 - 0.10 [facility] ospital TROPONIN T0.1 ng/ml Recommended as the c linical threshold value forTroponin T. ID Date Data Source [id number] 12/01/2020 06:10:00 PM EST [facility] Name Value Range Interpretation Code Description Data Marifer rce(s) Supporting Document(s) COVID19 [facility] rprt [facility] DETECTED [facility] This lab was ordered by [facility] and reported by [facility]. ID Date Data Source [id number] 12/01/2020 06:54:00 PM EST [facility] NOT DETECTEDNOT DETECTED{ PROC EDURAL CONTROL VALID KIT LOT # _[id number] 12/01/20.4.GEOVANNI. KIT EXP DATE _[id number] 12/01/20.GEOVANNI. NORMAL RANGE IS NOT DETECTEDNEGATIVE RESULTS [...] rce(s) Supporting Document(s) ID Date Data Source [id number] 12/01/2020 05:58:00 PM EST [facility] Name Value Range Interpretation Code Description Data Marifer rce(s) Supporting Document(s) [facility] R [facility] COLOR yellow NORMAL: Yellow [facility]sp[facility] CLARITY clear NORMAL: Clear [facility] spital Specific gravity of Urine by Test strip 1.015 1.001 - 1.030 [facility] pH 6.5 5 - 9 [facility] Glucose [Mass/volume] in Urine by Test strip NORM NORMAL: Negat [facility] Bilirubin.total [Presence] in Urine by Test strip NEG NORMAL: Negative [facility] Ketones [Presence] in Urine by Test strip NEG NORMAL: Negative [facility] Protein [Mass/volume] in Urine by Test strip NEG NORMAL: Negat [facility] Nitrite [Presence] in Urine by Test strip NEG NORMAL: Negative [facility] BLOOD 250 NORMAL: Negative [facility] Leukocyte esterase [Presence] in Urine by Test strip NEG DELANO L: Negative [facility] Urobilinogen [Mass/volume] in Urine by Test strip NOR less fidelia n 1.0 mg/dL [facility] MICROSCOPIC See Below [facility] ital WBC 0 - 1 NORMAL: NONE SEEN [facility] Erythrocytes [#/volume] in Urine by Test strip 10 - 15 NORMAL: NON E SEEN A [facility] EPITHELIAL FEW NORMAL: NONE SEEN [facility] ID Date Data Source [id number] 12/01/2020 07:23:00 PM [facility] Name Value Range Interpretation Code Description Data Marifer rce(s) Supporting Document(s) CVE PANEL [facility] LIPID PANEL Cholesterol [Mass/volume] in Serum or Plasma 143 MG/DL 131 - 200 [facility] Deprecated Triglyceride [Mass/volume] in Serum or Plasma 76 MG/DL 3 5 - 160 [facility] HDL 54 MG/DL 29 - 86 [facility] Cholesterol in LDL [Mass/volume] in Serum or Plasma by Direc t assay 82 mg/dL 65 - 175 [facility] Cholesterol.total/Cholesterol in HDL [Mass Ratio] in Serum o r Plasma 2.6 3.4 - 4.9 L [facility] LDL/HDL 1.52 1.00 - 3.55 [facility] ital CVE RISK CHOL/HDL LDL/HDLMEN: 1/2 AVERAGE 3.43 1.00 AVERAGE 4.97 3.55 2X AVERAGE 9.55 6.25 3X AVERAGE 23.99 7.99WOMEN: 1/2 AVERAGE 3.27 1.47 AVERAGE 4.44 3.22 2X AVERAGE 7.05 5.03 3X AVERAGE 11.04 6.14 ID Date Data Source [id number] 12/01/2020 06:17:00 PM [facility] Name Value Range Interpretation Code Description Data Marifer rce(s) Supporting Document(s) Fibrin D-dimer FEU [Mass/volume] in Platelet poor plasma 0.34 ug /mL 0.27 - 0.50 [facility] ID Date Data Source [id number] 12/01/2020 05:58:00 PM [facility] Name Value Range Interpretation Code Description Data Marifer rce(s) Supporting Document(s) Magnesium [Mass/volume] in Serum or Plasma 2.0 MG/DL 1.7 - 2.2 [facility] ID Date Data Source [id number] 12/01/2020 05:58:00 PM [facility] Name Value Range Interpretation Code Description Data Marifer rce(s) Supporting Document(s) Thyrotropin [Units/volume] in Serum or Plasma by Detec tion limit <= 0.05 mIU/L 1.15 uIU/mL 0.47 - 5.01 [facility] ID Date Data Source [id number] 12/01/2020 05:58:00 PM [facility] Name Value Range Interpretation Code Description Data Marifer rce(s) Supporting Document(s) Lipase [Enzymatic activity/volume] in Serum or Plasma 33 U/L 13 - 60 [facility] ID Date Data Source [id number] 12/01/2020 05:58:00 PM [facility] Name Value Range Interpretation Code Description Data Marifer rce(s) Supporting Document(s) COMPREHENSIVE METABOLIC PANEL [facility] COMPREHENSIVE METABOLIC PANEL Sodium [Moles/volume] in Serum or Plasma 140 mEq/L 134 - 153 [facility] Potassium [Moles/volume] in Serum or Plasma 3.8 mEq/L 3.6 - 5.0 [facility] Chloride [Moles/volume] in Serum or Plasma 104 mEq/L 98 - 107 [facility] Carbon dioxide, total [Moles/volume] in Serum or Plasma 28 MEQ/L 22 - 30 [facility] Glucose [Mass/volume] in Serum or Plasma 89 MG/DL 70 - 99 [facility] BUN 12 MG/DL 7 - 21 [facility] Creatinine [Mass/volume] in Serum or Plasma 0.8 MG/DL 0.7 - 1.5 [facility] BUN/CREAT 15 8 - 27 [facility] Protein [Mass/volume] in Serum or Plasma 7.0 G/DL 6.3 - 8.2 [facility] Albumin [Mass/volume] in Serum or Plasma 4.6 G/DL 3.9 - 5.0 [facility] Globulin [Mass/volume] in Serum by calculation 2.4 GM/DL 2.4 - 3.2 [facility] A/G RATIO 1.9 0.8 - 2.0 [facility] Calcium [Mass/volume] in Serum or Plasma 9.4 MG/DL 8.4 - 10.2 [facility] Bilirubin.total [Mass/volume] in Serum or Plasma <0.7 MG/DL 0.2 - 1.3 [facility] Alkaline phosphatase [Enzymatic activity/volume] in Serum or Plasma 64 U/L 38 - 126 [facility] Aspartate aminotransferase [Enzymatic activity/volume] in Serum or Plasma 28 U/L 5 - 40 [facility] Alanine aminotransferase [Enzymatic activity/volume] in Seru m or Plasma 23 U/L 7 - 56 [facility] Anion gap 3 in Serum or Plasma 8.0 mmol/L 8.0 - 16.0 [facility]GE 30 yrs [facility] GFR >60 mL/min [facility] ital AFR AMER GFR >60 mL/min [facility] spital Male GFR In terprentation 20-49 yrs [...] >32 mL/min Normal ID Date Data Source [id number] 12/01/2020 05:45:00 PM EST [facility] Name Value Range Interpretation Code Description Data Marifer [facility](s) Supporting Document(s) TROPONIN T <0.01 NG/ML 0.00 - 0.10 [facility] ospital TROPONIN T0.1 ng/ml Recommended as the c linical threshold value forTroponin T. ID Date Data Source [id number] 12/01/2020 05:42:00 PM [facility] Name Value Range Interpretation Code Description Data Marifer [facility](s) Supporting Document(s) Prothrombin time (PT) 14.0 SECONDS 11.0 - 15.5 [facility] INR in Platelet poor plasma by Coagulation assay 1.03 0.93 - 1. 23 [facility] aPTT in Blood by Coagulation assay 33.1 SECONDS 24.8 - 36.7 [facility] \\BLDo\\INR INTERPRETATION\\BLDx\\ Therapeutic range for Coumadin and related oral anticoagulants. - International Normalized Ratio (INR): 2.0 - 3.0 for Venous Thrombosis, Pulmonary Embolus, Tissue heart valves, Acute CA Atrial Fibrillation, Valvular heart disease and recurrent Systemic Embolism. - International Normalized Ratio (INR): 2.5 - 3.5 for Mechanical Prosthetic valve. ID Date Data Source [id number] 12/01/2020 05:37:00 PM EST [facility] Name Value Range Interpretation Code Description Data Marifer rce(s) Supporting Document(s) CBC W/AUTOMATED DIFF [facility] COMPLETE BLOOD COUNT Leukocytes [#/volume] in Blood by Automated count 7.4 10^3/uL 4.2 - 1 1.0 [facility] Erythrocytes [#/volume] in Blood by Automated count 4.53 10^6/uL 4. 50 - 6.30 [facility] Hemoglobin [Mass/volume] in Blood 13.5 g/dL 14.0 - 16.0 L [facility] Hematocrit [Volume Fraction] of Blood by Automated count 39.5 % 4 1.0 - 51.0 L [facility] Erythrocyte mean corpuscular volume [Entitic volume] by Auto mated count 87.2 fL 80.0 - 94.0 [facility] Erythrocyte mean corpuscular hemoglobin [Entitic mass] by Automated count 29.8 pg 27.0 - 34.0 [facility] Erythrocyte mean corpuscular hemoglobin concentration [Mass/volume] by Automated count 34.2 g/dL 31.0 - 36.0 [facility] Erythrocyte distribution width [Ratio] by Automated count 12.3 % 11.5 - 14.8 [facility] Platelets [#/volume] in Blood by Automated count 193 10^3/uL 150 - 45 0 [facility] Platelet mean volume [Entitic volume] in Blood by Automated count 10.5 fL 7.4 - 10.4 H [facility] Neutrophils/100 leukocytes in Blood by Automated count 51.6 % 37. 0 - 80.0 [facility] Lymphocytes/100 leukocytes in Blood by Manual count 39.6 % 25.0 - 40.0 [facility] Monocytes/100 leukocytes in Blood by Automated count 6.9 % 3.0 - 8.0 [facility] Eosinophils/100 leukocytes in Blood by Automated count 1.2 % 0.0 - 7.0 [facility] Basophils/100 leukocytes in Blood by Automated count 0.4 % 0.0 - 2.0 [facility] %IG 0.3 % 0.0 - 0.0 H [facility] %NRBC 0.0 % 0.0 - 0.0 [facility] Neut[facility] [#/volume] in Blood by Automated count 3.81 10^3/uL 2.00 - 6.90 [facility] Lymphocytes [#/volume] in Blood by Automated count 2.93 10^3/uL 0.60 - 3.40 [facility] Monocytes [#/volume] in Blood by Automated count 0.51 10^3/uL 0.00 - 0.90 [facility] Eosinophils [#/volume] in Blood by Automated count 0.09 10^3/uL 0.00 - 0.70 [facility] Basophils [#/volume] in Blood by Automated count 0.03 10^3/uL 0.00 - 0.20 [facility] #IG 0.02 10^3/uL 0.00 - 0.10 [facility] #NRBC 0.00 10^3/uL 0.00 - 0.00 [facility] MANUAL DIFF NOT INDICATED [facility] RBC MORPH NOT INDICATED [facility] ID Date Data Source [id number] 11/22/2020 11:51:27 AM EST [facility] Name Value Range Interpretation Code Description Data Marifer rce(s) Supporting Document(s) Progress Note [facility] [id number] lbm [file] [id number]= ID Date Data Source [id number] 11/20/2020 08:56:00 [place] [address] PHONE: [phone] FAX: [phone] Name .................. : TOSIN Rivera Acct Number.................. : [id number] ROOM. ................. : TR-08 Number ................... : [id number] Stay type ............. : E/R Discharge Date......... ... : 11/19/20 Admit Date ......... : 11/19/20 Admit Phys .................... : CHERYL OLVERA Date of ....... : 1990 Family Phys ................... : NON STAFF Phone .................. : [phone] Age ................................ : 30 Film# .................. .:[id number] Sex ................................. : M Unsigned transcriptions are preliminary reports and do not represent a medical or legal document MRI LUMBAR SPINE W/O CONTRAST [id number] COMPLETE:11/19/20 15:25 INGRID 1972 Reason(s): Lower Back [...] By Marlon Decker MD , 11/20/20 08:56, [facility] Transcribe Initials: GAYATHRI , Transcribe Date: 11/20/20 01:55, Dictation Date: Copy for: GRAYSON GONZALEZ via fax Copy for: EMERGENCY DEPT via modem Copy for: 710 MED REC DISCHARGED Page 1 of 1 Name Value Range Interpretation Code Description Data Marifer rce(s) Supporting Document(s) ID Date Data Source [id number] 11/19/2020 02:16:00 PM EST [facility] 1 OrderSheet [facility] Emergency Department [address] [place] [address] Phone #: ext- [phone] 11/19/2020 13:54 Patient: MARVIN LEAHY Sex: M : 1990 Age: 30yWEIGHT:92.9 kg (S) HEIGHT:72 inches (S) BMI:27.8ALLERGIES: SeafoodCHIEF COMPLAINT: back pain, chronic back painDIAGNOSIS: BackacheLAB ORDERSOrder Description Priority Entered Acknowledged InitialedUrinalysis (Clean STAT 14:28 11/19/2020 14:28 Ervin Nagy) Jennifer Nagy R.N. RYangNYang; Verbal order per; Larry Moreno PADIAGNOSTIC STUDY ORDERSOrder Description Priority Entered Acknowledged InitialedMRI Spine Lumbar STAT 14:36 11/19/2020 14:41 BurnhamW/O Cont Larry Moreno signal timerEsvin ER(Oxygen?(No)) (No) PA; Tech1 Reason for Study: Lower Back PainMEDICATION/IV/DRIP/FLUID ORDERSOrder Description Priority Entered Acknowledged InitialedToradol IM 60 mg 14:32 11/19/2020 15:25 Larry Nagy R.N.;Gabapentin PO 100 14:32 11/19/2020 Ack'd: 15:25 15:28 mg Larry Nagy Jennifer Jennifer R.N. PA; R.N.predniSONE PO 60 14:32 11/19/2020 15:25 mg Larry Nagy R.N.;GENERAL ORDERSOrder Description Priority Entered Acknowledged Initialed[Electronically signed by Troy Ann RN (15:51 11/19/2020)][Electronically signed by Larry Moreno (21:18 11/19/2020)] 2 OrderSheet [facility] Emergency Department [address] [place] [address] Phone #: ext- [phone] 11/19/2020 13:54 Patient: MARVIN LEAHY Sex: M : 1990 Age: 30y[Electronically locked by Troy Ann RN (15:51 11/19/2020)] Name Value Range Interpretation Code Description Data Marifer rce(s) Supporting Document(s) ID Date Data Source [id number] 11/19/2020 02:16:00 PM EST [facility] 1 Medication Reconciliation Report [facility] Emergency Department [address] [place] [address] Phone #: ext- [phone] 11/19/2020 13:54 Patient: [...] the Emergency Department: 2 Medication Reconciliation Report [facility] Emergency Department [address] [place] [address] Phone #: ext- [phone] 11/19/2020 13:54 Patient: [...] Dispense 1 pack.Refills: 0. Substitution permitted.Pharmacy - [facility] [address] [facility] ; [place] [address]. FaxNumber: [phone].gabapentin 100 mg capsule Take 1 capsule three times a day for 30 days -- Dispense 90 capsule.Refills: 0. Substitution permitted.Pharmacy - [facility] [employer] [facility] ; [place] [address]. .methocarbamol 500 mg tablet Take 1 tablet three times a day for 10 days -- Dispense 30 tablet. Refills:0. Substitution permitted.Pharmacy - [facility] [place] [address] [facility] ; [place] [address]. . -- PERLA Cisse Name Value Range Interpretation Code Description Data Marifer rce(s) Supporting Document(s) ID Date Data Source [id number] 11/19/2020 02:16:00 PM [facility] 1 Medication Administration Record [facility] Emergency Department [address] [place] [address] Phone #: oar- [phone] 11/19/2020 13:54 Patient: MARVIN LEAHY Sex: M : 1990 Age: 30yWeight: 92.9 kgHeight/Length: 72 inBMI: 27.8ALLERGIES: Seafood Date/Time Medication Administered Medication OrderedGiven TORADOL [IM] (KETOROLAC Toradol IM 60 mg15:25 11/19/2020 TROMET HAMINE)Jennifer Nagy R.N. Dose: 60 mg IMGiven GABAPENTIN [PO] Gabapentin PO 100 mg15:28 11/19/2020 Dose: 100 mg Capsules Jennifer Andrews R.N.Given PREDNISONE [PO] predniSONE PO 60 mg15:25 11/19/2020 Dose: 60 mg Tablets Jennifer Andrews R.N. Name Value Range Interpretation Code Description Data Marifer rce(s) Supporting Document(s) ID Date Data Source [id number] 11/19/2020 02:16:00 PM [facility] 1 General Instructions [facility] Emergency Department [address] [place] [address] Phone #: ext [phone] 11/19/2020 13:54 Patient: MARVIN LEAHY Sex: M [...] pack. Refills: 0. Substitution permitted. [facility] - [facility] [id number] [place] [address] ; [place] [address]. . gabapentin 100 mg capsule Take 1 capsule three times a day for 30 days -- Dispense 90 capsule. Refills: 0. Substitution permitted. Pharmacy - [facility] - [address] [facility] ; [place] [address]. . 2 General Instructions [facility] Emergency Department [address] [place] [address] Phone #: ext- [phone] 11/19/2020 13:54 Patient: MARVIN LEAHY Sex: M : 1990 Age: 30ymethocarbamol 500 mg tablet Take 1 tablet three times a day for 10 days -- Dispense 30 tablet. Refills:0. Substitution permitted.Pharmacy - [facility] [address] [facility] ; [place] [address]. .Follow-up:Follow up with your doctor tomorrow. Call for an appointment. Reason for referral: evaluation, treatmentand refer to pain management and physical therapy. Summary of care provided to patient.Understanding of the discharge instructions verbalized by patient. ADDITIONAL INFORMATIONBack Pain (Acute or Chronic) 3 [facility] Emergency Department [address] [place] [address] Phone #: ext- [phone] 11/19/2020 13:54 Patient: MARVIN LEAHY Sex: M [...] this home care advice: 4 General Instructions [facility] Emergency Department [address] [place] [address] Phone #: ext- [phone] 11/19/2020 13:54 Patient: [...] or are takingother medicines. You may use kexv-wiy-wxndtqy medicine as directed on the bottle to [...] may affect your care 5 General Instructions [facility] Emergency Department [address] [place] [address] Phone #: ext- [phone] 11/19/2020 13:54 Patient: MARVIN LEAHY Sex: M [...] Numbness in the groin or genital area [employer]. [address] [place] [address]. All rights reserved. This information is not [...] rce(s) Supporting Document(s) ID Date Data Source [id number] 11/19/2020 02:16:00 PM EST [facility] 1 Clinical Report - Nurses [facility] Emergency Department [address] [place] [address] Phone #: ext- [phone] 11/19/2020 13:54 Patient: MARVIN LEAHY Sex: M : 1990 Age: 30yTRIAGEArrived by private vehicle. Historian: patient. Unaccompanied. ( complains of lower back pain, painworse since last night).Acuity: LEVEL 4.Chief Complaint: BACK PAIN.Alert.Onset. (1 year). The patient has had trouble walking. 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 SEPSIS SCREEN NEGATIVE. No suspected or confirmedsigns of infection present. --14:08 11/19/20 Michelle Rowland R.N.14:09 11/19/20. BP: 115/68. MAP: 83. HR: 58. RR: [...] Rowland R.N. 2 Clinical Report - Nurses [facility] Emergency Department [address] [place] [address] Phone #: [phone] urj- [phone] 11/19/2020 13:54 Patient: MARVIN LEAHY Sex: M [...] 11/19/20DVT - Deep Venous Thrombosis. --14:09 11/19/20 PERLA Cisse.ADDITIONAL SURGERIES:no known surgeries.HistoryPAST MEDICAL HX: Immunizations: up-to-date.SOCIAL [...] risk assessment completed. No skin integrity riskidentified. --14:08 11/19/20 Michelle Rowland R.N.SOCIAL HX: Never smoker. No alcohol use or drug use. The patient has not traveled outside the [place] 3 Clinical Report - Nurses [facility] Emergency Department [address] [place] [address] Phone #: ext- [phone] 11/19/2020 13:54 Patient: [...] Patient transported to MRI by wheelchair with dynamics ax technical architect. --14:43 11/19/20 Ashton, Alyssa Patient returned from MRI by wheelchair with mask and dynamics ax technical architect. --15:20 11/19/20 Jennifer Nagy R.N. 15:25 11/19/2020 [...] / PSYCH: Alert. Oriented X 4. --15:26 1/11/21 Jennifer Nagy R.N. 15:28 11/19/2020 Gabapentin PO Capsules 100 mg given. Allergies verified and confirmed 5 rights. Information reviewed with patient including reason for taking this medication, signs of allergic reaction and precautions. Verbalizes under standing. --15:28 11/19/20 Jennifer Nagy R.N.DISPOSITION / DISCHARGE 4 Clinical Report - Nurses [facility] Emergency Department [address] [place] [address] Phone #: ext- [phone] 11/19/2020 13:54 Patient: MARVIN LEAHY Sex: M : 1990 Age: 30y 15:48 11/19/20. BP: 121/68. HR: 76. RR: 16. O2 saturation: 100%. Temp: 96.8 F. Pain level now 04/18. --15:48 11/19/20 Critical access hospital Tech, Esvin, SHILIP [facility] Condition at departure: improved and stable. Discharge instructions provided and reviewed with the patient. Reviewed medication(s) side effects, precautions, dosing and course information. Reviewed referral to a primary care physician. Activity restrictions (rest) reviewed. Patient verbalized understanding. Written instructions provided in Romanian. The patient was discharged by the physician information assistant. He was discharged home and accompanied by broomcorn scraper. He left ambulatory and via private vehicle. 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 --15:51 11/19/20 Troy Ann RN.Locked/Released at 11/19/2020 15:51 by Troy Ann RN Name Value Range Interpretation Code Description Data Marifer rce(s) Supporting Document(s) ID Date Data Source [id number] 11/19/2020 02:16:00 PM EST [facility] 1 Clinical Report - Physicians/Mid Levels [facility] Emergency Department [address] [place] [address] Phone #: ext- [phone] 11/19/2020 13:54 Patient: MARVIN LEAHY Sex: M [...] week. 2 Clinical Report - Physicians/Mid Levels [facility] Emergency Department [address] [place] [address] Phone #: ext- [phone] 11/19/2020 13:54 Patient: MARVIN LEAHY Sex: M : 1990 Age: 30y Trolamine Salicylate External. Allergies: Seafood.SOCIAL HISTORYNever smoker. No alcohol use or drug use.PHYSICAL EXAMVital Signs: 11/19/2020 14:09 BP: 115/68. MAP: 83. HR: 58. RR: 18. O2 saturation: 99%. Temp: 97.4 F.Pain level now: 10/10. Have been reviewed as abnormal. Bradycardic. Oxygen [...] otherwise follow up with his PC[facility] at [facility] Patient counseled in person regarding the [...] deficit. 3 Clinical Report - Physicians/Mid Levels [facility] Emergency Department [address] [place] [address] Phone #: ext- [phone] 11/19/2020 13:54 Patient: MARVIN LEAHY Sex: M [...] pack. Refills: 0. Substitution permitted. Pharmacy - [address] ; [place] [address]. . gabapentin 100 mg capsule Take 1 capsule three times a day for 30 days -- Dispense 90 capsule. Refills: 0. Substitution permitted. Pharmacy - [address] ; [place] [address]. . methocarbamol 500 mg tablet Take 1 tablet three times a day for 10 days -- Dispense 30 tablet. Refills: 0. Substitution permitted. [facility] - [address] ; [place] [address]. . Follow-up: 4 Clinical Report - Physicians/[facility] Emergency Department [address] [place] [address] Phone #: ext- [phone] 11/19/2020 13:54 Patient: MARVIN LEAHY Sex: M [...] rce(s) Supporting Document(s) ID Date Data Source [id number] 11/19/2020 02:54:00 PM EST [facility] Name Value Range Interpretation Code Description Data Marifer rce(s) Supporting Document(s) [facility] SOURCE R [facility] COLOR yellow NORMAL: Yellow [facility] CLARITY cloudy NORMAL: Clear [facility] Specific gravity of Urine by Test strip 1.015 1.001 - 1.030 [facility] pH 8 5 - 9 Health System al Glucose [Mass/volume] in Urine by Test strip NORM NORMAL: Negat [facility] Bilirubin.total [Presence] in Urine by Test strip NEG NORMAL: Negative [facility] Ketones [Presence] in Urine by Test strip NEG NORMAL: Negative [facility] Protein [Mass/volume] in Urine by Test strip [facility]G [facility] Nit[facility] [Presence] in Urine by Test strip NEG NORMAL: Negative [facility] BLOOD 50 NORMAL: Negative A [facility] Leukocyte esterase [Presence] in Urine by Test strip NEG DELANO L: Negative [facility] Urobilinogen [Mass/volume] in Urine by Test strip NOR less fidelia n 1.0 mg/dL [facility] MICROSCOPIC See Below [facility] Erythrocytes [#/volume] in Urine by Test strip 3 - 5 NORMAL: NON E SEEN [facility] EPITHELIAL FEW NORMAL: NONE SEEN [facility] Bacteria [Presence] in Urine sediment by Light microscopy 1+ SMALL NORMAL: NONE SEEN [facility] Amorphous sediment [Presence] in Urine sediment by Light marleni roscopy 3+ NORMAL: NONE SEEN [facility] ID Date Data Source [id number] 11/14/2020 11:18:00 AM EST [facility] ([facility]) Name Value Range Interpretation Code Description Data Marifer rce(s) Supporting Document(s) Color of Urine Laboratory test result [facility] ([facility]) Appearance of Urine Laboratory test result [facility] ([facility]) Spec [place] 1.010 [facility] ([facility]) pH of Urine by Test strip 8 [facility] NT ([facility]) Protein [Presence] in Urine by Test strip Laboratory test result [facility] ([facility]) Leukocytes Laboratory test result [facility] ([facility]) Nitrate [Presence] in Urine Laboratory test result [facility] ([facility]) Urobilinogen Laboratory test result [facility] ([facility]) Bilirubin.total [Presence] in Urine by Test strip Laboratory test res ult [facility] ([facility]) Ketones [Presence] in Urine by Test strip Laboratory test result [facility] ([facility]) Inhouse Glucose Laboratory test result [facility] ([facility]) Blood type and Indirect antibody screen panel - Blood [facility] ID Date Data Source [id number] 10/23/2020 10:27:00 AM EST [facility] [address] [place] [address] PHONE: [phone] FAX: [phone] Name .................. : TOSIN ADDISONEW Cristino Acct Number.................. : [id number] ROOM. ................. : TR-08 MR Number ................... : [id number] Stay type ............. : E/R Discharge Date......... ... : 10/19/20 Admit Date ......... : 10/19/20 Admit Phys .................... : CHOA CANDE Date of ....... : 1990 Family Phys ................... : NON STAFF Phone .................. : [phone] Age ................................ : 30 Film# .................. .:[id number] Sex ................................. : M Unsigned transcriptions are preliminary reports and do not represent a medical or legal document CT HEAD W/O CONTRAST [id number] COMPLETE:10/19/20 19:17 NELLY 24 Reason(s): Syncope CT [...] By Nimco Bradley MD , 10/23/20 10:27, KG Transcribe Initials: DZ , Transcribe Date: 10/20/20 00:55, Dictation Date: Copy for: GRAYSON GONZALEZ via fax Copy for: CHAO Hall via fax Copy for: EMERGENCY DEPT via modem Copy for: 710 MED REC DISCHARGED Page 1 of 1 Name Value Range Interpretation Code Description Data Marifer rce(s) Supporting Document(s) ID Date Data Source [id number] 10/22/2020 09:17:00 [place] [address] PHONE: [phone] FAX: [phone] Name .................. : TOSIN Rivera Acct Number.................. : [id number] ROOM. ................. : TR-08 Number ................... : [id number] Stay type ............. : E/R Discharge Date......... ... : 10/19/20 Admit Date ......... : 10/19/20 Admit Phys .................... : CHAO CANDE Date of ....... : 1990 Family Phys ................... : NON STAFF Phone .................. : [phone] Age ................................ : 30 Film# .................. .:[id number] Sex ................................. : M Unsigned transcriptions are preliminary reports and do not represent a medical or legal document CHEST 2 VIEWS [id number] COMPLETE:10/19/20 19:17 NELLY 23 Reason(s): Syncope CHEST X-RAY: 2-VIEWS INDICATION: Syncope. COMPARISON: None. FINDINGS: The cardiac and mediastinal silhouettes appear normal and the lungs are clear. The bones and soft tissues are normal. The upper abdomen is unremarkable. IMPRESSION: No acute disease identifiable. Electronically Reviewed and Signed By Nimco Bradley MD , 10/22/20 09:17, KGDenny Transcribe Initials: GAYATHRI , Transcribe Date: 10/20/20 00:57, Dictation Date: Copy for: GRAYSON GONZALEZ via fax Copy for: CHAO Hall via fax Copy for: EMERGENCY DEPT via modem Copy for: 710 MED REC DISCHARGED Page 1 of 1 Name Value Range Interpretation Code Description Data Marifer rce(s) Supporting Document(s) ID Date Data Source [id number] 10/20/2020 09:17:00 [place] [address] RESPIRATORY CARE REPORT ==== ---------NAME------- NUMBER SEX AGE ADMIT DISC. XRAY# F/C RHONDA Rivera [id number] M 30 10/19/20 10/19/20 [id number] SB4 E/R DATE OF : 1990 M/R# [id number] #: [id number] TR-08 LOCATION: [place] [address] COMP LETE:10/19/20 14:52 [facility] [address] PHYSICIAN: CHAO MORENO Name Value Range Interpretation Code Description Data Marifer rce(s) Supporting Document(s) ID Date Data Source [id number] 10/19/2020 10:32:00 AM [facility] 1 OrderSheet [facility] Emergency Department [address] [place] [address] Phone #: ext- [phone] 10/19/2020 10:31 Patient: [...] Harley R.N.;Urinalysis (Clean STAT 10:56 10/19/2020 12:09 CricketCatch) Larry DUNCAN;DIAGNOSTIC STUDY ORDERSOrder Description Priority Entered Acknowledged InitialedChest 2 View STAT 10:56 10/19/2020 11:58 Cricket, 2 OrderSheet [facility] Emergency Department [address] [place] [address] Phone #: ext- [phone] 10/19/2020 10:31 -------- Patient: MARVIN LEAHY Sex: M : 1990 Age: 30y(Oxygen?(No)) Larry DUNCAN; Reason for Study: SyncopeCT Head W/O Cont STAT 10:56 10/19/2020 11:58 Cricket(Oxygen?(No)) Larry DUNCAN; Reason for Study: SyncopeMEDICATION/IV/DRIP/FLUID ORDERSOrder Description Priority Entered Acknowledged InitialedMorphine IVP 4 mg 10:57 10/19/2020 Cancelled: Physician Order 11:30 Larry(HIGH ALERT Larry Moreno PAMEDICATION) PA;Zofran ODT PO 8 10:57 10/19/2020 11:34 Cricket,mg Larry DUNCAN;Morphine IM 4 mg 11:30 10/19/2020 11:34 Cricket,(HIGH ALERT Larry Hall R.N.ME DICATION) PA;GENERAL ORDERSOrder Description Priority Entered Acknowledged InitialedBlood Pressure 10:57 10/19/2020 11:00 Cricket,Monitor Larry DUNCAN;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 (13:51 10/19/2020)][Electronically signed by Larry Moreno (21:52 10/19/2020)][Electronically locked by Rafael Harley R.N. (13:51 10/19/2020)] Name Value Range Interpretation Code Description Data Marifer rce(s) Supporting Document(s) ID Date Data Source [id number] 10/19/2020 10:32:00 AM EST [facility] 1 Medication Reconciliation Report [facility] Emergency Department [address] [place] [address] Phone #: nol- [phone] 10/19/2020 10:31 Patient: MARVIN LEAHY Sex: M [...] Department:Zofran ODT [PO] PO 8 mg, administered: :10/19/2020Morphine [IM] IM 4 mg, administered: :10/19/2020The following Medications were prescribed to the patient:gabapentin 100 mg capsule Take 1 capsule three times a day for 30 days -- Dispense 90 capsule.Refills: 0. Substitution permitted.Pharmacy - [facility] - [address] [facility] ; [place] [address]. .Medrol (Julian) 4 mg tablets in a dose pack Take 1 tablet as directed for 6 days -- Dispense 1 pack. 2 Medication Reconciliation Report [facility] Emergency Department [address] [place] [address] Phone #: ext- [phone] 10/19/2020 10:31 -- Patient: MARVIN LEAHY Sex: M : 1990 Age: 30yRefills: 0. Substitution permitted.Pharmacy - [facility] [employer] [id number] [facility] ; [place] [address]. . -- PERLA Cisse Name Value Range Interpretation Code Description Data [facility](s) Supporting Document(s) ID Date Data Source [id number] 10/19/2020 10:32:00 AM [facility] 1 Medication Administration Record [facility] Emergency Department [address] [place] [address] Phone #: ext- [phone] 10/19/2020 10:31 Patient: [...] Name Value Range Interpretation Code Description Data [facility](s) Supporting Document(s) ID Date Data Source [id number] 10/19/2020 10:32:00 AM [facility] 1 General Instructions [facility] Emergency Department [address] [place] [address] Phone #: ext [phone] 10/19/2020 10:31 Patient: MARVIN LEAHY Sex: M : 1990 Age: 30yVasovagal, postural syncope(Micturition Syncope).Microscopic hematuriaUncontrolled essential hypertension.Chronic nontraumatic lumbar back pain.INSTRUCTIONSNo strenuous activity until released.Warnings: Further evaluation is necessary. It is very important to follow up with a healthcare provider.Prescription Medications:gabapentin 100 mg capsule Take 1 capsule three times a day for 30 days -- Dispense 90 capsule.Refills: 0. Substitution permitted.[facility] [address] [facility] ; [place] [address]. .Medrol (Julian) 4 mg tablets in a dose pack Take 1 tablet as directed for 6 days -- Dispense 1 pack.Refills: 0. Substitution permitted.Pharmacy - [facility] - [id number] [facility] ; [place] [address]. .Understanding of the discharge instructions verbalized by patient.Follow-up with: Dylan Shi MD, Cardiology, , [address] [place] [address] Follow up. Call for the next available appointment. Reason for referral: evaluation, treatment and seeyour PCM for referral to Cardiology for further evaluation. Summary of care provided to patient.Follow-up with: Benito Willett M.D., Urology, , [address] [place] [address] Follow up. Call for the next available appointment. Reason for referral: evaluation, treatment and seeyour PCM for referral to Urology, evaluate Hematuria and Micurition Syncope. Summary of care providedto patient. ADDITIONAL INFORMATIONFainting: Vagal Reaction 2 General Instructions [facility] Emergency Department [address] [place] [address] Phone #: ext- [phone] 10/19/2020 10:31 Patient: MARVIN LEAHY Sex: M [...] very rapidly, very slowly, or irregularly (palpitations) [employer]. [address] [place] [address]. All rights reserved. This information is not intended as asubstitute for professional medical care. Always follow your healthcare professional's instructions.High Blood Pressure, To Be Confirmed, No Treatment 3 General Instructions [facility] Emergency Department [address] [place] [address] Phone #: ext- [phone] 10/19/2020 10:31 Patient: [...] monitors at most pharmacies. 4 General Instructions [facility] Emergency Department [address] [place] [address] Phone #: ext- [phone] 10/19/2020 10:31 Patient: MARVIN LEAHY Sex: M : 1990 Age: 30yThe [place] [employer] Association advises the following guidelines for [...] attack, heart failure, kidney disease, and stroke.Call 911Call 911 if you have any of these: Blood pressure of 180/120 or higher Chest pain or shortness of breath Weakness of an arm or leg or one side of the face Problems speaking or seeingWhen to get medical advice 5 General Instructions [facility] Emergency Department [address] [place] [address] Phone #: [phone] 10/19/2020 10:31 Patient: MARVIN LEAHY Sex: M : 1990 Age: 30yCall your healthcare provider right away if any of these occur: Severe headache Throbbing or rushing sound in the ears Nosebleed Sudden severe pain in your belly (abdomen) Extreme drowsiness, confusion, or fainting Dizziness or dizziness with spinning feeling (vertigo) [id number] [employer] [place] [address]. All rights reserved. This information is not intended as asubstitute for professional medical care. Always follow your healthcare prof essional's instructions.Back Pain (Acute or Chronic) 6 General Instructions [facility] Emergency Department [address] [place] [address] Phone #: ext- [phone] 10/19/2020 10:31 Patient: [...] this home care advice: 7 General Instructions [facility] Emergency Department [address] [place] [address] Phone #: ext- [phone] 10/19/2020 10:31 Patient: [...] or are takingother medicines. You may use epat-zci-rowxpsc medicine as directed on the bottle to [...] may affect your care 8 General Instructions [facility] Emergency Department [address] [place] [address] Phone #: ext- [phone] 10/19/2020 10:31 Patient: [...] Numbness in the groin or genital area [employer]. [address] [place] [address]. All rights reserved. This information is not intended as asubstitute for professional medical care. Always follow your healthcare professional's instructions.Blood in the Urine 9 General Instructions [facility] Emergency Department [address] [place] [address] Phone #: ext- [phone] 10/19/2020 10:31 Patient: [...] using these medicines.Follow-up care 10 General Instructions [facility] Emergency Department [address] [place] [address] Phone #: ext- [phone] 10/19/2020 10:31 Patient: [...] nose or gums or easy bruising [employer]. [address] [place] [address], [place] [address]. All rights reserved. This information is not [...] rce(s) Supporting Document(s) ID Date Data Source [id number] 10/19/2020 10:32:00 AM EST [facility] 1 Clinical Report - Nurses [facility] Emergency Department [address] [place] [address] Phone #: ext- [phone] 10/19/2020 10:31 Patient: [...] killing yourself?". 2 Clinical Report - Nurses [facility] Emergency Department [address] [place] [address] Phone #: ext- [phone] 10/19/2020 10:31 Patient: [...] 10/19/20 Rafael Harley R.N. Patient returned from [place] by wheelchair with tech. --11:59 10/19/20 Rafael Harley R.N. Reassurance given to the patient. --11:59 10/19/20 Rafael Harley R.N. Bed placed in lowest position. Brakes of bed on. --13:50 10/19/20 Rafael Harley R.N.DISPOSITION / DISCHARGE No learning barriers present. Discharge instructions provided and reviewed with the patient. The patient was discharged by the physician information assistant. He was discharged home. He left ambulatory and via private vehicle. Patient driving. --13:50 10/19/20 Rafael Harley R.N. 13:50 10/19/20. BP: 124/66. MAP: 85. HR: 62. RR: 18. O2 saturation: deferred. Temp: deferred. Pain level now: 12/19. --13:50 10/19/20 Rafael Harley R.N. Departure time: 13:51 10/19/2020. --13:51 10/19/20 Rafael Harley R.N. 3 Clinical Report - Nurses [facility] Emergency Department [address] [place] [address] Phone #: ext- [phone] 10/19/2020 10:31 Patient: MARVIN LAEHY Sex: M : 1990 Age: 30yLocked/Released at 10/19/2020 13:51 by Rafael Harley R.N. Name Value Range Interpretation Code Description Data Marifer rce(s) Supporting Document(s) ID Date Data Source [id number] 10/19/2020 10:32:00 AM EST [facility] 1 Clinical Report - Physicians/Mid Levels [facility] Emergency Department [address] [place] [address] Phone #: ext- [phone] 10/19/2020 10:31 Patient: [...] use. 2 Clinical Report - Physicians/Mid Levels [facility] Emergency Department [address] [place] [address] Phone #: ext- [phone] 10/19/2020 10:31 Patient: [...] 0.20) 3 Clinical Report - Physicians/Mid Levels [facility] Emergency Department [address] [place] [address] Phone #: ext- [phone] 10/19/2020 10:31 Patient: [...] Male GFR Interprentation 20-49 yrs >60 mL/min Sdmbek28-68 yrs >56 mL/min Normal 60-69 yrs >49 mL/min Normal 70-79yrs>42 mL/min Normal 80 and above >35 mL/min Normal Female GFRInterpretation 20-39 yrs >60 mL/min Normal 40-49 yrs >58 mL/minNormal 50-59 yrs >51 mL/min Normal 60-69 yrs >45 mL/min Tmugjz40-30 yrs >39 mL/min Normal 80 and above >32 mL/min NormalPT/PTT: (DERRICK: 10/19/2020 11:41) ( [facility] 10/19/2020 11:57) Final results Test Result Flag Units (Reference) PROTIME 14.6 SECONDS (11.0 - 15.5) INR 1.08 (0.93 - 1.23) PTT 28.1 SECONDS (24.8 - 36.7) \\BLDo\\INR INTERPRETATION\\BLDx\\ Therapeutic range for Coumadin andrelated oral anticoagulants. -International Normalized Ratio (INR): 2.0 - 3.0 for VenousThrombosis, Pulmonary Embolus, Tissue heart valves, Acute CA Atrial Fibrillation, Valvular heart diseaseand recurrent Systemic Embolism. -International Normalized Ratio (INR): 2.5 - 3.5 forMechanical Prosthetic valve.Lactic Acid: (DERRICK: 10/19/2020 11:41) ( [facility] 10/19/2020 11:52) Final results Test Result Flag Units (Reference) LACTIC ACID 1.0 MMOL/L (0.2 - 2.2)Lipase: (DERRICK: 10/19/2020 11:41) ( [facility] 10/19/2020 12:33) Final results Test Result Flag Units (Reference) LIPASE 35 U/L (13 - 60) 4 Clinical Report - Physicians/Mid Levels [facility] Emergency Department [address] [place] [address] Phone #: ext- [phone] 10/19/2020 10:31 Patient: MARVIN LEAHY Sex: M : 1990 Age: 30y Magnesium: (DERRICK: 10/19/2020 11:41) ( [facility] 10/19/2020 12:33) Final results Test Result Flag Units (Reference) MAGNESIUM 2.1 MG/DL (1.7 - 2.2) Troponin-T: (DERRICK: 10/19/2020 11:41) ( [facility] 10/19/2020 13:24) Final results Test Result Flag Units (Reference) TROPONIN T <0.01 NG/ML (0.00 - 0.10) TROPONIN T0.1 ng/ml Recommended as the clinical threshold value forTroponin T. TSH: (DERRICK: 10/19/2020 11:41) ( [facility] 10/19/2020 12:33) Final results Test Result Flag Units (Reference) TSH 1.61 uIU/mL (0.47 - 5.01) Urinalysis: (DERRICK: 10/19/2020 11:40) ( [facility] 10/19/2020 12:29) Final results Test Result Flag [...] hematuria 5 Clinical Report - Physicians/Mid Levels [facility] Emergency Department [address] [place] [address] Phone #: ext- [phone] 10/19/2020 10:31 Patient: MARVIN LEAHY Sex: M [...] capsule. Refills: 0. Substitution permitted. Pharmacy - [facility] [employer] [id number] [facility] ; [place] [address]. . Medrol (Julian) 4 mg tablets in a dose pack Take 1 tablet as directed for 6 days -- Dispense 1 pack. Refills: 0. Substitution permitted. Pharmacy - [facility] - [address] [facility] ; [place] [id number]. FaxNumber: . Understanding of the discharge instructions verbalized by patient. Follow- up with: Dylan Shi MD, Cardiology, , [address] [place] [address], [address] Follow up. Call for the next available appointment. Reason for referral: evaluation, treatment and see your PCM for referral to Cardiology for further evaluation. Summary of care provided to patient. Follow-up with: Benito Willett M.D., Urology, , [address] [place] [address], [address] Follow up. Call for the next available appointment. Reason for referral: evaluation, treatment and see your PCM for referral to Urology, evaluate Hematuria and Micurition Syncope. Summary of care provided to patient.(Electronically signed by PERLA Cisse 10/19/2020 21:52) Name Value Range Interpretation Code Description Data Marifer rce(s) Supporting Document(s) ID Date Data Source [id number] 10/19/2020 01:24:00 PM [facility] Name Value Range Interpretation Code Description Data Marifer rce(s) Supporting Document(s) TROPONIN T <0.01 NG/ML 0.00 - 0.10 [facility]ital TROPONIN T0.1 ng/ml Recommended as the c linical threshold value forTroponin T. ID Date Data Source [id number] 10/19/2020 12:33:00 PM [facility] Name Value Range Interpretation Code Description Data Marifer rce(s) Supporting Document(s) COMPREHENSIVE METABOLIC PANEL [facility] COMPREHENSIVE METABOLIC PANEL Sodium [Moles/volume] in Serum or Plasma 140 mEq/L 134 - 153 [facility] Potassium [Moles/volume] in Serum or Plasma 4.1 mEq/L 3.6 - 5.0 [facility] Chloride [Moles/volume] in Serum or Plasma 104 mEq/L 98 - 107 [facility] Carbon dioxide, total [Moles/volume] in Serum or Plasma 33 MEQ/L 22 - 30 H [facility] Glucose [Mass/volume] in Serum or Plasma 66 MG/DL 65 - 110 [facility] BUN 13 MG/DL 7 - 21 [facility] Creatinine [Mass/volume] in Serum or Plasma 1.0 MG/DL 0.7 - 1.5 [facility] BUN/CREAT 13 8 - 27 [facility] Protein [Mass/volume] in Serum or Plasma 8.0 G/DL 6.3 - 8.2 [facility] Albumin [Mass/volume] in Serum or Plasma 4.4 G/DL 3.9 - 5.0 [facility] Globulin [Mass/volume] in Serum by calculation 3.6 GM/DL 2.4 - 3.2 H [facility] A/G RATIO 1.2 0.8 - 2.0 [facility] Calcium [Mass/volume] in Serum or Plasma 10.0 MG/DL 8.4 - 10.2 [facility] Bilirubin.total [Mass/volume] in Serum or Plasma <0.7 MG/DL 0.2 - 1.3 [facility] Alkaline phosphatase [Enzymatic activity/volume] in Serum or Plasma 63 U/L 38 - 126 [facility] Aspartate aminotransferase [Enzymatic activity/volume] in Serum or Plasma 28 U/L 5 - 40 [facility] Alanine aminotransferase [Enzymatic activity/volume] in Seru m or Plasma 30 U/L 7 - 56 [facility] Anion gap 3 in Serum or Plasma 3.0 mmol/L 8.0 - 16.0 L [facility] AGE 30 yrs [facility] GFR >60 mL/min [facility] ital AFR AMER GFR >60 mL/min [facility] Male GFR In terprentation 20-49 [...] >32 mL/min Normal ID Date Data Source [id number] 10/19/2020 12:33:00 PM [facility] Name Value Range Interpretation Code Description Data Marifer rce(s) Supporting Document(s) Thyrotropin [Units/volume] in Serum or Plasma by Detec tion limit <= 0.05 mIU/L 1.61 uIU/mL 0.47 - 5.01 [facility] ID Date Data Source [id number] 10/19/2020 12:33:00 PM EST [facility] Name Value Range Interpretation Code Description Data Marifer rce(s) Supporting Document(s) Magnesium [Mass/volume] in Serum or Plasma 2.1 MG/DL 1.7 - 2.2 [facility] ID Date Data Source [id number] 10/19/2020 12:33:00 PM EST [facility] Name Value Range Interpretation Code Description Data Marifer rce(s) Supporting Document(s) Lipase [Enzymatic activity/volume] in Serum or Plasma 35 U/L 13 - 60 [facility] ID Date Data Source [id number] 10/19/2020 11:57:00 AM [facility] Name Value Range Interpretation Code Description Data Marifer rce(s) Supporting Document(s) Prothrombin time (PT) 14.6 SECONDS 11.0 - 15.5 [facility] INR in Platelet poor plasma by Coagulation assay 1.08 0.93 - 1. 23 [facility] aPTT in Blood by Coagulation assay 28.1 SECONDS 24.8 - 36.7 [facility] \\BLDo\\INR INTERPRETATION\\BLDx\\ Therapeutic range for Coumadin and related oral anticoagulants. - International Normalized Ratio (INR): 2.0 - 3.0 for Venous Thrombosis, Pulmonary Embolus, Tissue heart valves, Acute CA Atrial Fibrillation, Valvular heart disease and recurrent Systemic Embolism. - International Normalized Ratio (INR): 2.5 - 3.5 for Mechanical Prosthetic valve. ID Date Data Source [id number] 10/19/2020 11:56:00 AM [facility] Name Value Range Interpretation Code Description Data Marifer rce(s) Supporting Document(s) CBC W/AUTOMATED DIFF [facility] COMPLETE BLOOD COUNT Leukocytes [#/volume] in Blood by Automated count 4.6 10^3/uL 4.2 - 1 1.0 [facility] Erythrocytes [#/volume] in Blood by Automated count 4.94 10^6/uL 4. 50 - 6.30 [facility] Hemoglobin [Mass/volume] in Blood 14.6 g/dL 14.0 - 16.0 [facility] Hematocrit [Volume Fraction] of Blood by Automated count 43.6 % 4 1.0 - 51.0 [facility] Erythrocyte mean corpuscular volume [Entitic volume] by Auto mated count 88.3 fL 80.0 - 94.0 [facility] Erythrocyte mean corpuscular hemoglobin [Entitic mass] by Automated count 29.6 pg 27.0 - 34.0 [facility] Erythrocyte mean corpuscular hemoglobin concentration [Mass/volume] by Automated count 33.5 g/dL 31.0 - 36.0 [facility] Erythrocyte distribution width [Ratio] by Automated count 12.2 % 11.5 - 14.8 [facility] Platelets [#/volume] in Blood by Automated count 196 10^3/uL 150 - 45 0 [facility] Platelet mean volume [Entitic volume] in Blood by Automated count 10.4 fL 7.4 - 10.4 [facility] Neutrophils/100 leukocytes in Blood by Automated count 46.2 % 37. 0 - 80.0 [facility] Lymphocytes/100 leukocytes in Blood by Manual count 41.5 % 25.0 - 40.0 H [facility] Monocytes/100 leukocytes in Blood by Automated count 9.2 % 3.0 - 8.0 H [facility] Eosinophils/100 leukocytes in Blood by Automated count 2.0 % 0.0 - 7.0 [facility] Basophils/100 leukocytes in Blood by Automated count 0.7 % 0.0 - 2.0 [facility] %IG 0.4 % 0.0 - 0.0 H [facility] %NRBC 0.0 % 0.0 - 0.0 [facility] Neutrophils [#/volume] in Blood by Automated count 2.12 10^3/uL 2.00 - 6.90 [facility] Lymphocytes [#/volume] in Blood by Automated count 1.90 10^3/uL 0.60 - 3.40 [facility] Monocytes [#/volume] in Blood by Automated count 0.42 10^3/uL 0.00 - 0.90 [facility] Eosinophils [#/volume] in Blood by Automated count 0.09 10^3/uL 0.00 - 0.70 [facility] Basophils [#/volume] in Blood by Automated count 0.03 10^3/uL 0.00 - 0.20 [facility] #IG 0.02 10^3/uL 0.00 - 0.10 [facility] #NRBC 0.00 10^3/uL 0.00 - 0.00 [facility] MANUAL DIFF NOT INDICATED [facility] RBC MORPH NOT INDICATED [facility] ID Date Data Source [id number] 10/19/2020 11:52:00 AM EST [facility] Name Value Range Interpretation Code Description Data Marifer rce(s) Supporting Document(s) Lactate [Moles/volume] in Serum or Plasma 1.0 MMOL/L 0.2 - 2.2 [facility] ID Date Data Source [id number] 10/19/2020 12:26:00 PM EST [facility] Name Value Range Interpretation Code Description Data Marifer rce(s) Supporting Document(s) URINALYSIS [facility] URINALYSIS SOURCE R [facility] COLOR yellow NORMAL: Yellow [facility] CLARITY clear NORMAL: Clear [facility] Specific gravity of Urine by Test strip 1.020 1.001 - 1.030 [facility] pH 7 5 - 9 [facility] Glucose [Mass/volume] in Urine by Test strip NORM NORMAL: Negat [facility] Bilirubin.total [Presence] in Urine by Test strip NEG NORMAL: Negative [facility] Ketones [Presence] in Urine by Test strip NEG NORMAL: Negative [facility] Protein [Mass/volume] in Urine by Test strip NEG NORMAL: Negat [facility] Nitrite [Presence] in Urine by Test strip NEG NORMAL: Negative [facility] BLOOD 10 NORMAL: Negative A [facility] Leukocyte esterase [Presence] in Urine by Test strip NEG DELANO L: Negative [facility] Urobilinogen [Mass/volume] in Urine by Test strip NOR less fidelia n 1.0 mg/dL [facility] MICROSCOPIC See Below [facility] ital Erythrocytes [#/volume] in Urine by Test strip 1 - 3 NORMAL: NON E SEEN [facility] ID Date Data Source [id number] 09/18/2020 08:57:00 AM EST [facility] [address] [place] [address] PHONE: [phone] FAX: [phone] Name .................. : TOSIN Rivera Acct Number.................. : [id number] ROOM. ................. : TR-07 MR Number ................... : [id number] Stay type ............. : E/R Discharge Date......... ... : Admit Date ......... : 09/17/20 Admit Phys .................... : CHERYL OLVERA Date of ....... : 1990 Family Phys ................... : Phone .................. : [phone] Age ................................ : 30 Film# .................. .:[id number] Sex ................................. : M Unsigned transcriptions are preliminary reports and do not represent a medical or legal document CT LUMBAR SP W/O CONT [id number] COMPLETE:09/17/20 09:16 [id number] Reason(s): exacerbation of left lower back pain, [...] Dictation Date: Copy for: EMERGENCY DEPT via mode Copy for: [address] [place] [address] PHONE: [phone] FAX: [phone] Name .................. : TOSIN WONG Cristino Acct Number.................. : [id number] ROOM. ................. : TR-07 Number ................... : [id number] Stay type ............. : E/R Discharge Date......... ... : Admit Date ......... : 09/17/20 Admit Phys .................... : CHERYL OLVERA Date of ....... : 1990 Family Phys ................... : Phone .................. : [phone] Age ................................ : 30 Film# .................. .:[id number] Sex ................................. : M Unsigned transcriptions are preliminary reports and do not represent a medical or legal document CT LUMBAR SP W/O CONT [id number] COMPLETE:09/17/20 09:16 [id number] Reason(s): exacerbation of left lower back pain, soft tissue swelling, spas DISCHARGED Page 2 of 2 Name Value Range Interpretation Code Description Data Marifer rce(s) Supporting Document(s) ID Date Data Source [id number] 09/17/2020 08:46:00 AM EST [facility] 1 OrderSheet [facility] Emergency Department [address] [place] [address] Phone #: [phone] sem- [phone] 09/17/2020 08:44 Patient: MARVIN LEAHY Sex: M : 1990 Age: 30yWEIGHT:88.4 kg (S) HEIGHT:68 inches (S) BMI:29.6ALLERGIES: SeafoodCHIEF COMPLAINT: chronic back pain, back painDIAGNOSIS: Lumbar sprainLAB ORDERSOrder Description Priority Entered Acknowledged InitialedDIAGNOSTIC STUDY ORDERSOrder Description Priority Entered Acknowledged InitialedCT LUMBAR SP STAT 09:16 09/17/2020 09:19 Sal Frank/O Brant Mercado RN(Oxygen?(No)) Bharat;(IV?(No)) NOTES: soft tissue enhancement, windows, please Reason for Study: e xacerbation of left lower back pain, soft tissue swelling, spasm?MEDICATION/IV/DRIP/FLUID ORDERSOrder Description Priority Entered Acknowledged InitialedMorphine IM 4 mg 09:16 09/17/2020 09:24 Velma Frank(HIGH ALERT Brant Luna RNMEDICATION) Bharat;Lidocaine Patch 09:16 09/17/2020 09:24 Una Frank (Patch 5 %) Brant Luna RN1 Patch (On for 12 M.D.;hours, off for 12hours.)GENERAL ORDERSOrder Description Priority Entered Acknowledged Initialed[Electronically signed by Brant Luna M.D. (12:45 09/17/2020)][Electronically signed by Tom English R.N. (14:16 09/17/2020)][Electronically locked by Tom English R.N. (14:16 09/17/2020)] Name Value Range Interpretation Code Description Data Marifer rce(s) Supporting Document(s) ID Date Data Source [id number] 09/17/2020 08:46:00 AM EST [facility] 1 Medication Reconciliation Report [facility] Emergency Department [address] [place] [address] Phone #: [phone] auu- [phone] 09/17/2020 08:44 Patient: MARVIN LEAHY Sex: M [...] tablet. Refills: 0. Substitution permi tted.Pharmacy - [phone] ; [place] [address]. . -- Brant Luna M.D. Name Value Range Interpretation Code Description Data [facility](s) Supporting Document(s) ID Date Data Source [id number] 09/17/2020 08:46:00 AM [facility] 1 Medication Administration Record [facility] Emergency Department [address] [place], [place] [address] Phone #: ext [phone] 09/17/2020 08:44 Patient: MARVIN LEAHY Sex: M : 1990 Age: 30yWeight: 88.4 kgHeight/Length: 68 inBMI: 29.6ALLERGIES: Seafood Date/Time Medication Administered Medication OrderedGiven MORPHINE [IM] Morphine IM 4 mg (HIGH ALERT09:24 09/17/2020 Dose: 4 mg IM MEDICATION)Velma Frank RNGiven LIDOCAINE PATCH Lidocaine Patch Topical (Patch 509:24 09/17/2020 Dose: 1 patch Transdermal %) 1 Patch (On for 12 hours, Velma Saldaña RN for 12 hours.) Name Value Range Interpretation Code Description Data Marifer rce(s) Supporting Document(s) ID Date Data Source [id number] 09/17/2020 08:46:00 AM [facility] 1 General Instructions [facility] Emergency Department [address] [place] [address] Phone #: ext- [phone] 09/17/2020 08:44 Patient: MARVIN LEAHY Sex: M [...] 12 tablet. Refills: 0. Substitution permitted.Pharmacy - [facility] [phone] ; [place] [address]. .Follow-up:Return to the emergency department as needed. [...] to plan of care. 2 General Instructions [facility] Emergency Department [address] [place] [address] Phone #: ext- [phone] 09/17/2020 08:44 Patient: [...] can cause muscle spasm. 3 General Instructions [facility] Emergency Department [address] [place] [address] Phone #: ext- [phone] 09/17/2020 08:44 Patient: [...] and pain. Wrap the 4 General Instructions [facility] Emergency Department [address] [place] [address] Phone #: ext- [phone] 09/17/2020 08:44 Patient: [...] or are takingother medicines. You may use [id number] medicine as directed on the bottle to [...] any new findingsthat may affect your care.Call [phone] if any of the following occur: Trouble breathing Confusion Very drowsy or trouble awakening Fainting or loss of consciousness 5 General Instructions [facility] Emergency Department [address] [place] [address] Phone #: ofc- [phone] 09/17/2020 08:44 Patient: MARVIN LEAHY Sex: M : 1990 Age: 30y Rapid or very slow heart rate Loss of bowel or bladder controlWhen to seek medical adviceCall your healthcare provider right away if any of these occur: Pain becomes worse or spreads to your legs Weakness or numbness in one or both legs Numbness in the groin or genital area [phone] [employer]. [address] [place] [address]. All rights reserved. This information is not [...] rce(s) Supporting Document(s) ID Date Data Source [id number] 09/17/2020 08:46:00 AM EST [facility] 1 Clinical Report - Nurses [facility] Emergency Department [address] [place] [address] Phone #: ext- [phone] 09/17/2020 08:44 Patient: [...] leg pain. 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 O2 saturation: 99%. --09:21 09/17/20 [place] signal timer VerónicaSHILPI Tech1 09:24 09/17/2020 Morphine IM 4 mg [...] Patient transported to radiology by wheelchair with dynamics ax technical architect. --09:35 09/17/20 Jennifer Nagy R.N. Patient returned by wheelchair with dynamics ax technical architect. --09:45 09/17/20 Jennifer Nagy R.N. 09:58 09/17/2020 Morphine IM Response: no adverse reaction pain is improving. Symptoms have improved the patient feels better. --09:58 09/17/20 Jennifer Nagy R.N. 09:58 09/17/2020 Lidocaine Patch Transdermal Response: [...] 100% on room air. Pain level now 04/18. --09:58 09/17/20 Jennifer Nagy R.N. 4 Clinical Report - Nurses [facility] Emergency Department [address] [place] [address] Phone #: ext- [phone] 09/17/2020 08:44 Patient: MARVIN LEAHY Sex: M : 1990 Age: 30y 09:59 09/17/20. BP: 133/72. MAP: 92. HR: 66. RR: 16. O2 saturation: 100%. --09:59 09/17/20 Won Adventi Tech1 11:03 09/17/20. Reassurance given. Reassessment acuity: [...] RR: 16. O2 saturation: 100%. --11:06 09/17/20 [place] Seer, Hybrid Security Tech1.DISPOSITION / DISCHARGE 12:07 09/17/20. BP: 129/84. MAP: 99. HR: 57. RR: 16. O2 saturation: 99%. Temp: 98.1 F. Pain level now: 01/16. --12:07 09/17/20 [place] Adventi Tech1 12:12 09/17/20. Departure time: 12:18 09/17/2020. [...] Patient verbalized understanding. Written instructions provided in Romanian. The patient was discharged by the physician. He was discharged home. He left ambulatory and via private vehicle. Patient driving. --12:18 09/17/20 Tom English R.N. Reviewed rest and ice instructions. Activity restrictions (rest) reviewed. --12:20 09/17/20 Tom English R.N.Locked/Released at 09/17/2020 14:16 by Tom English R.N. Name Value Range Interpretation Code Description Data Marifer rce(s) Supporting Document(s) ID Date Data Source [id number] 09/17/2020 08:46:00 AM EST [facility] 1 Clinical Report - Physicians/Mid Levels [facility] Emergency Department [address] [place] [address] Phone #: ext- [phone] 09/17/2020 08:44 Patient: [...] Allergies: 2 Clinical Report - Physicians/Mid Levels [facility] Emergency Department [address] [place] [address] Phone #: ext- [phone] 09/17/2020 08:44 Patient: [...] improved; 3 Clinical Report - Physicians/Mid Levels [facility] Emergency Department [address] [place] [address] Phone #: ext- [phone] 09/17/2020 08:44 Patient: [...] tablet. Refills: 0. Substitution permitted. Pharmacy - [facility] [phone] ; [place] [address]. . Follow-up: Return to the emergency department [...] care. 4 Clinical Report - Physicians/Mid Levels [facility] Emergency Department [address] [place] [address] Phone #: ext- [phone] 09/17/2020 08:44 Patient: MARVIN LEAHY Sex: M : 1990 Age: 30y(Electronically signed by Brant Luna M.D. 09/17/2020 12:45) Name Value Range Interpretation Code Description Data Marifer rce(s) Supporting Document(s) ID Date Data Source [id number] 08/05/2020 02:51:00 [place] [address] Patient Name: Marvin Leahy Exam Date: 08/05/20 [...] receipt and understanding. Professional interpretation performed at [facility] . End of diagnostic report: [id number] Signed: Ilene Duong MD 08/05/20 1504 Interpreted by: Alber Duongribed by: Ilene Duong Name Value Range Interpretation Code Description Data Marifer rce(s) Supporting Document(s) ID Date Data Source [id number] 08/05/2020 12:44:00 PM EDT [facility] Has Patient Fasted For The Past 12 Hour s? N Name Value Range Interpretation Code Description Data Marifer rce(s) Supporting Document(s) WHITE BLOOD COUNT 6.31 10^3/uL 4.00-10.50 [facility] RED BLOOD COUNT 4.80 10^6/uL 4.30-5.80 [facility] HEMOGLOBIN 14.3 G/DL 13.0-17.5 N [facility] HEMATOCRIT 43.1 % 41.0-53.0 N [facility] MCV 89.8 FL 80.0-100.0 [facility] MCH 29.8 PG 27.0-34.0 [facility]CHC 33.2 G/DL 32-36 [facility] RDW 11.9 % 11.5-14.5 [facility] PLATELET COUNT 147 10^3/uL 130-400 [facility] MPV 10.1 FL 8.7-13.2 N [facility] GRAN % (AUTO) 54.6 % 42.0-75.0 [facility] LYMPH % (AUTO) 32.6 % 20.0-51.0 N [facility] MONO % (AUTO) 10.3 % 2.0-15.0 N [facility] EOS % (AUTO) 1.7 % 0.0-11.0 N [facility] BASO % (AUTO) 0.5 % 0.0-2.0 N [facility] IG % (AUTO) 0.3 % 1.00-5.00 [facility] IG # (AUTO) 0.0 10^3/uL <0.5 [facility] GRAN # (AUTO) 3.44 10^3/uL 1.50-6.50 N [facility] LYMPH # (AUTO) 2.1 k/uL 1.0-5.0 N [facility] MONO # (AUTO) 0.65 k/uL 0.20-1.50 N [facility] EOS # (AUTO) 0.11 10^3/uL 0.00-1.10 [facility] BASO # (AUTO) 0.03 10^3/uL 0.00-0.20 N [facility] ID Date Data Source [id number] 08/05/2020 12:59:00 PM EDT [facility] Has Patient Fasted For The Past 12 Hour s? N Name Value Range Interpretation Code Description Data Marifer rce(s) Supporting Document(s) SODIUM 141 MEQ/L 135-145 N [facility] POTASSIUM 4.5 MEQ/L 3.5-5.3 N [facility] CHLORIDE 104 MEQ/L 94-110 N [facility] CARBON DIOXIDE 32 MEQ/L 22-33 N [facility] ANION GAP 10 5-16 N [facility] BLOOD UREA NITRO 15 MG/DL 7-25 N [facility] CREATININE 0.9 MG/DL 0.6-1.4 [facility] GFR > 90.0 ML/MIN [facility] Stage G1 - Normal or high kidney functi on The GFR is an estimate of the Glomerular Filtration Rate. It is an aid to assess a patient's renal function. It is not a conclusive diagnosis of kidney disease. GFR normal is >=90 The MDRD GFR calculation is considered valid between the ages of 18 and 75 years only. BUN/CREAT RATIO 16 8-36 N [facility] GLUCOSE 70 MG/DL 70-100 [facility] CA 9.6 MG/DL 8.7-10.5 [facility] BILIRUBIN,TOTAL 0.8 MG/DL 0.1-1.3 [facility] AST 28 U/L 5-40 N [facility] ALT 36 U/L 5-48 [facility] ALKALINE PHOSPHATASE 84 U/L 40-140 N [facility] alth TOTAL PROTEIN 7.2 G/DL 5.9-8.3 N [facility] ALBUMIN 4.6 G/DL 3.0-5.1 [facility] GLOBULIN 2.6 G/DL 1.5-3.5 [facility] ALB/GLOB RATIO 1.8 G/DL 1.0-3.0 [facility] ID Date Data Source [id number] 08/05/2020 01:29:00 PM EDT [facility] Has Patient Fasted For The Past 12 Hour s? N Name Value Range Interpretation Code Description Data Marifer rce(s) Supporting Document(s) PROTHROMBIN TIME 12.4 SEC 8.9-13.3 [facility] INR 1.1 0.0-3.6 [facility] Therapeutic Values of INR are generally between 2.0-3.0 except for Prosthetic Valves (High Risk 2.5-3.5) The use of INR is restricted to patient on stable oral anticoagulant therapy. ID Date Data Source [id number] 08/05/2020 01:29:00 PM EDT [facility] Has Patient Fasted For The Past 12 Hour s? N Name Value Range Interpretation Code Description Data Marifer rce(s) Supporting Document(s) D-DIMER > 552 NG/ML 0-552 H [facility] ID Date Data Source [id number] 08/05/2020 12:12:00 [place] [address] Patient Name: Marvin Leahy Exam Date: 08/05/20 [...] of hydronephrosis. There is no loss of mack-white matter differentiation to suggest acute territorial infarct. [...] the cervical spine. Professional interpretation performed at [facility] . End of diagnostic report: [id number] Signed: Marvin Rust MD 08/05/20 1230 Interpreted by: Marvin RustTranscribed by: Marvin Rust Name Value Range Interpretation Code Description Data Marifer rce(s) Supporting Document(s) ID Date Data Source [id number] 08/05/2020 12:12:00 [place] [address] Patient Name: Marvin Leahy Exam Date: 08/05/20 [...] of hydronephrosis. There is no loss of mack-white matter differentiation to suggest acute territorial infarct. [...] the cervical spine. Professional interpretation performed at [facility] [phone]. End of diagnostic report: [id number] Signed: Marvin Rust MD 08/05/20 1230 Interpreted by: Marvin RustTranscribed by: Marvin Rust Name Value Range Interpretation Code Description Data Marifer rce(s) Supporting Document(s) ID Date Data Source [id number] 08/05/2020 11:47:00 [place] [address] HEALTH INFORMATION MANAGEMENT ED/ Physician Report : [id number] Signed with Casi Patient: Marvin Leahy Acct:[id number] Unit : [id number] : 1990 Arrival Date: 08/05/20 Age/Sex: 30 / M Arrival Time: 1101 Copies to: PCPCaraabl Trauma HPI/ROS General Chief Complaint: Minor Trauma/Adult Stated Complaint: Eval After Fall Stated Complaint: Eval After Fall Source: Patient and I have reviewed available Ancillary/nursing staff documentation Limitations : Reports No limitations History of Present Illness Initial Comments: patient is complaining of neck pain and headache after a fall. Patient is currently admitted to [facility]. He states he went to the meth [...] back home. He has a sister in [place] History of Smoking/Tobacco Use: Never Smoker Alcohol [...] rce(s) Supporting Document(s) ID Date Data Source [id number] 07/29/2020 03:37:00 [place] [address] Patient Name: Marivn Leahy Exam Date: 07/29/20 : 1990 Ordering [...] left wrist x-rays. Professional interpretation performed by [facility] . End of diagnostic report: [id number] Signed: Marvin Major MD 08/02/20 1627 Interpreted by: Marvin LuTranscribed by: Marvin Major Name Value Range Interpretation Code Description Data Marifer rce(s) Supporting Document(s) ID Date Data Source [id number] 07/29/2020 03:37:00 [place] [address] Patient Name: Marvin Leahy Exam Date: 07/29/20 [...] left hand x-rays. Professional interpretation performed by [facility] . End of diagnostic report: [id number] Signed: Marvin Major MD 08/02/20 1627 Interpreted by: Marvin MajorTranscribed by: Marvin Major Name Value Range Interpretation Code Description Data Marifer rce(s) Supporting Document(s) ID Date Data Source [id number]/29/2020 03:37:00 [place] [address] Patient Name: Marvin Leahy Exam Date: 07/29/20 [...] right wrist x-rays. Professional interpretation performed by [facility] . End of diagnostic report: [id number] Signed: Marvin Major MD 08/02/20 162 Interpreted by: Marvin MajorTranscribed by: Marvin Major Name Value Range Interpretation Code Description Data Marifer rce(s) Supporting Document(s) ID Date Data Source [id number]/29/2020 03:37:00 [place] [address] Patient Name: Marvin Leahy Exam Date: 07/29/20 [...] right hand x-rays. Professional interpretation performed by [facility] . End of diagnostic report: [id number] Signed: Marvin Major MD 08/02/20 1626 Interpreted by: Marvin RodasTranscribed by: Marvin Major Name Value Range Interpretation Code Description Data Marifer rce(s) Supporting Document(s) ID Date Data Source [id number] 07/29/2020 03:37:00 PM EDT [address] [address] Patient Name: Marvin Leahy Exam Date: 07/29/20 [...] cervical spine x-rays. Professional interpretation performed by [facility] . End of diagnostic report: [id number] Signed: Marvin Gaitan MD 08/02/20 1625 Interpreted by: Marvin MajorTranscribed by: Marvin Major Name Value Range Interpretation Code Description Data Marifer rce(s) Supporting Document(s) ID Date Data Source [id number] 06/05/2020 09:09:00 AM EDT [facility] Has Patient Fasted For The Past 12 Hour s? Y Has Patient Fasted For The Past 12 Hour s? Y Has Patient Fasted For The Past 12 Hour s? Y Has Patient Fasted For The Past 12 Hour s? Y Name Value Range Interpretation Code Description Data Marifer rce(s) Supporting Document(s) SODIUM 142 MEQ/L 135-145 N [facility] POTASSIUM 4.0 MEQ/L 3.5-5.3 N [facility] CHLORIDE 108 MEQ/L 94-110 N [facility] CARBON DIOXIDE 26 MEQ/L 22-33 N [facility] ANION GAP 12 5-16 N [facility] BLOOD UREA NITRO 9 MG/DL 7-25 [facility] CREATININE 1.0 MG/DL 0.6-1.4 N [facility] GFR > 90.0 ML/MIN [facility] Stage G1 - Normal or high kidney functi on The GFR is an estimate of the Glomerular Filtration Rate. It is an aid to assess a patient's renal function. It is not a conclusive diagnosis of kidney disease. GFR normal is >=90 The MDRD GFR calculation is considered valid between the ages of 18 and 75 years only. BUN/CREAT RATIO 9 8-36 N [facility] GLUCOSE 95 MG/DL 70-100 N [facility] CA 9.7 MG/DL 8.7-10.5 [facility] BILIRUBIN,TOTAL 0.5 MG/DL 0.1-1.3 N [facility] AST 24 U/L 5-40 N [facility] ALT 36 U/L 5-48 [facility] ALKALINE PHOSPHATASE 68 U/L 40-140 [facility] alth TOTAL PROTEIN 7.0 G/DL 5.9-8.3 N [facility] ALBUMIN 4.7 G/DL 3.0-5.1 [facility] GLOBULIN 2.3 G/DL 1.5-3.5 [facility] ALB/GLOB RATIO 2.0 G/DL 1.0-3.0 [facility] ID Date Data Source [id number] 06/05/2020 09:09:00 AM [facility] Has Patient Fasted For The Past 12 Hour s? Y Has Patient Fasted For The Past 12 Hour s? Y Has Patient Fasted For The Past 12 Hour s? Y Has Patient Fasted For The Past 12 Hour s? Y Name Value Range Interpretation Code Description Data Marifer rce(s) Supporting Document(s) Vitamin D,25-HYDROXY 42.5 ng/ml 30-100 N [facility] ealt Vitamin D Status Range De ficiency <20 ng/ml Insufficiency 20-29.9 ng/ml Sufficiency 30-100 ng/ml Toxicity >100 ng/ml Patients should not be tested for 72 hours post fluorescein dye angiography. A false elevation of result may occur. ID Date Data Source [id number] 06/05/2020 09:09:00 AM [facility] Has Patient Fasted For The Past 12 Hour s? Y Has Patient Fasted For The Past 12 Hour s? Y Has Patient Fasted For The Past 12 Hour s? Y Has Patient Fasted For The Past 12 Hour s? Y Name Value Range Interpretation Code Description Data Marifer e(s) Supporting Document(s) T3FREE 3.6 PG/ML 2.3-4.2 [facility] ID Date Data Source [id number] 06/05/2020 09:09:00 AM EDT [facility] Has Patient Fasted For The Past 12 Hour s? Y Has Patient Fasted For The Past 12 Hour s? Y Has Patient Fasted For The Past 12 Hour s? Y Has Patient Fasted For The Past 12 Hour s? Y Name Value Range Interpretation Code Description Data Marifer rce(s) Supporting Document(s) TSH 1.864 uIU/ML 0.470-4.200 [facility] Patients should not be tested for 72 ho urs post fluorescein dye angiography. A false depression of result may occur. ID Date Data Source IMMUNOGLOBULIN E 03/09/2020 12:00:00 AM EDT eCW1 ([facility]) Name Value Range Interpretation Code Description Data Marifer rce(s) Supporting Document(s) 129.0 <100 IMMUNOGLOBULIN E eCW1 ([facility]) ID Date Data Source FREE T4 & TSH PANEL 03/09/2020 12:00:00 AM EDT eCW1 ([facility]) Name Value Range Interpretation Code Description Data Marifer rce(s) Supporting Document(s) 1.690 0.358-3.740 THYROID STIMULATING HORM ONE eCW1 ([facility]) 1.00 0.76-1.46 FREE T4 eCW1 ([facility]) ID Date Data Source ERYTHROCYTE SEDIMENTATION RATE 03/09/2020 12:00:00 AM EDT eC W1 ([facility]) Name Value Range Interpretation Code Description Data Marifer rce(s) Supporting Document(s) 3 0-15 ERYTHROCYTE SEDIMENTATION RATE eCW1 ([facility]) ID Date Data Source CBC with Differential 03/09/2020 12:00:00 AM EDT eCW1 ([facility]) Name Value Range Interpretation Code Description Data Marifer rce(s) Supporting Document(s) 4.3 4.0-10.0 WHITE BLOOD COUNT eCW1 ([facility]) 4.97 4.30-6.10 RED BLOOD COUNT eCW1 ([facility]) 14.9 13.5-17.5 HEMOGLOBIN eCW1 ([facility]) 44.2 42.0-52.0 HEMATOCRIT eCW1 ([facility]) 30.0 27.0-33.0 MEAN CORPUSCULAR HEMOGLOB IN eCW1 ([facility]) 88.9 80.0-96.0 MEAN CORPUSCULAR VOLUME e CW1 ([facility]) 12.7 11.5-14.5 RED CELL DISTRIBUTION WID TH eCW1 ([facility]) 33.7 32.0-36.5 MEAN CORPUSCULAR HGB CONC eCW1 ([facility]) 43.8 36.0-66.0 NEUTROPHILS % eCW1 ([facility]) 181 150-450 PLATELET COUNT, AUTOMATED eCW1 ([facility]) 45.3 24.0-44.0 LYMPH % eCW1 ([facility]) 7.9 0.0-5.0 MONO % eCW1 ([facility]) 0.5 0.0-1.0 BASO % eCW1 ([facility]) 2.3 0.0-3.0 EOS % eCW1 ([facility]) 2.0 1.5-5.0 LYMPH # eCW1 ([facility]) 1.9 1.5-8.5 NEUTROPHILS # eCW1 ([facility]) 0.3 0.0-0.8 MONO # eCW1 ([facility]) 0.1 0.0-0.5 EOS # eCW1 ([facility]) 0.0 0.0-0.2 BASO # eCW1 ([facility]) ID Date Data Source [id number] 03/08/2020 09:55:59 AM EDT [facility] Name Value Range Interpretation Code Description Data Marifer rce(s) Supporting Document(s) Progress Note [facility] CLEFEq8qGpCRHqFp67/TDMpaNAUww5OjRBpgUFf8PUweLOUiW3JyOUW0sA8zETE6DIuZRcAuKpTcPKAl lbm [file] AgICAgICAgICAgICAgICAgICAgICAgICAgICAgICAgICAgICAgICAgICAgICAgICAgICAgICAgICANCi AgICAgICAgICAgICAgICAgICAgICAgICAgICAgICAg ICAgICAgICAgICAgICAgICAgICAgICAgICAgICAgICAgICAgICAgICAgICAgICAgICAgICAgICAgICAg ICAgICAgICANCiAgICAgICAgICAgICAgICAgICAgICAgICAgICAgICAgICAgICAgICAgICAgICAgICAg ICAgICAgICAgICAgICAgICAgICAgICAgICAgICAgIC AgICAgICAgICAgICAgICAgICANCiAgICAgICAgICAgICAgICAgICAgICAgICAgICAgICAgICAgICAgIC AgICAgICAgICAgICAgICAgICAgICAgICAgICAgICAgICAgICAgICAgICAgICAgICAgICAgICAgICAgIC ANCiAgICAgICAgICAgICAgICAgICAgICAgICAgICAg ICAgICAgICAgICAgICAgICAgICAgICAgICAgICAgICAgICAgICAgICAgICAgICAgICAgICAgICAgICAg ICAgICAgICAgICANCiAgICAgICAgICAgICAgICAgICAgICAgICAgICAgICAgICAgICAgICAgICAgICAg ICAgICAgICAgICAgICAgICAgICAgICAgICAgICAgIC AgICAgICAgICAgICAgICAgICAgICANCiAgICAgICAgICAgICAgICAgICAgICAgICAgICAgICAgICAgIC AgICAgICAgICAgICAgICAgICAgICAgICAgICAgICAgICAgICAgICAgICAgICAgICAgICAgICAgICAgIC AgICANCiAgICAgICAgICAgICAgICAgICAgICAgICAg ICAgICAgICAgICAgICAgICAgICAgICAgICAgICAgICAgICAgICAgICAgICAgICAgICAgICAgICAgICAg ICAgICAgICAgICAgICANCiAgICAgICAgICAgICAgICAgICAgICAgICAgICAgICAgICAgICAgICAgICAg ICAgICAgICAgICAgICAgICAgICAgICAgICAgICAgIC AgICAgICAgICAgICAgICAgICAgICAgICANCiAgICAgICAgICAgICAgICAgICAgICAgICAgICAgICAgIC AgICAgICAgICAgICAgICAgICAgICAgICAgICAgICAgICAgICAgICAgICAgICAgICAgICAgICAgICAgIC AgICAgICANCjw/fNOoB4gecGSqqnK5X5qtId4OZn2I LE4sr8VjCXHeVKigegVvJsyWXuIaZWHqYbsHHot3EXqkUX5UgVScZ2QhU3DqEUofRB3YTOBtSLZewMXj QHUvJDRtCgE0AQEkRVvdKD4ZdKBlYMfoOQHfZXJcJpHxTQPpMV4MWLNwN345iqLuKy5WOb8DTdAlQL0t wr8AKeUuGDCkZltHMqa4NFhxBW5CxMNleEFqPkXkKK LSQnRjL8hrw5MtDcEdBINSYGayGP3Ot0AwrBAtXAs+Ru7TBI9nv4HcYHkaQjNuXU7nhu1OCRgVPsIbH1 VenRlnGGJkk2onWGYbUK2gkDMiLBW2WOvlKxBSglBmf1LiqIjdMCErWHPuYR3xUG8xETSkFIGsDcXkGW URLI8YCWWzXULqeUFwRUKoTNYRDG0LAAqpNQJ8XBCr hdYjpPBnYXvyMT9VBISonmIvKqQlINQHADx+Hq6SHN6yd5RaKFbaWfIsZP0dxm2CMCyTMaKdE5Q6iKXh U8T5QXccEd9SPPYkGYQtISpxGNLCVWmoSZ8DST4xgbK0TL8DeYNrVYMbMQQgoIRwCKr9P87ytAMmMTmd VM7PBJF+Jayla+Ck6RNJWzXATkNWDhVxKrOJPWCeDzI6 DbG0XVv9DmC6VtBU16kAvzpjLeLUbpXV7KFJ5wUIQoUMLXKW8PfBXimX7vuuDjLWXsTWGRAkHvP34vgE QwEORoIRBkMIMgQo6KNDWpB6ZxrhQcgAefozGiSDYkZPZCDO3DKZeresHuiKYejFbcRV50oYpsON5LHq 0NAcJzTZ9mdg7NdAQjDh9EFSKoXR4ICUQaXPFyYZYw IQH9UIEsKmPjNXsrYIToORXeUNK1LKUwYCJlAI2ROeXcPERaWTl2KCXzSLUsQEBzyp3KMICiXPReFHKz DhBdYDPaBTRfRWztBTPzSLNoKFS0MUTvJUEkJR8BUtAnQKMqFQQqMpZoJMGeURJuyj7YJSOhPBQlPoXr MWFmXFQiBUSzZMeoLFVbVKS2YwU8BLDoJMRtMC1BNi YqLCTiXYK8GKXoMDEfNBJpid8DQMSrTDTgXDw9DXPhSOCnVQTwIUwsEXJgAFY4HJh7RKObEUTpPE1KDu IhQAPxTBNxTkHfFJOpGUVwnp3WMPKxVBTlQmLpNNEeCTSmMEVuCSmeRZAlSTY1UaZ5CARtDBNmLK6WSb BhLMRyATo5KcPfMMLzLEQoun4KMPSsJCEeSEq5MMOx OYLmOMQjJZcdZTFhSBN6QCw0XJEkRQVkGK2SXaDhKGVoAAx3ETMyNRFoELPkux8VWKWjBEGcGQX9XOSv OOSiXZWsFBohGWUmWZJ4YesdHXDdZRDtTY8AVcKdDKZwAiUnUFYlQOCcPVWokh4DTPXuRYUvEPOuJaYr EXZbVLBfVGvhSTDjVVXgHiW1LEQnDRWsLC4EOfShPR QvXiJ1SLFjPKGaWKDqft2GwCWdfDolir0GIOnMTk9DgBdxXCF4XQxtIm2kzHUeZaUpZSMFRx1OqtYyXI RiKDJMKEpmWISwIPO8IYK5UYK4VqVtJBE7J7QhZ9KvZiFtYzCvEvM9OsilDnU5ICJeQRX2SMVlMAC5IV pnVtZ7CYW9WhRyAvS4VeGsARX+OK7yFAv+Po0Ob0EewpY8shKzCPkeNvG8MO8JHNCQS3ZLFx== ID Date Data Source [id number] 01/09/2020 01:34:51 PM EST [facility] Name Value Range Interpretation Code Description Data Marifer rce(s) Supporting Document(s) Progress Note [facility] [id number]/SWCyzKWWdv7VzMXunOFv8ZJldFGWaZ6XeHLC9oZ2kBWS7SUfWCxBwFrXfYcLz lbm [file] [id number]= ID Date Data Source [id number] 12/09/2019 06:52:09 PM [facility] Name Value Range Interpretation Code Description Data Marifer rce(s) Supporting Document(s) Hematocrit [Volume Fraction] of Blood by Automated count 45.0 % 4 1-53 [facility] ID Date Data Source [id number] 12/09/2019 07:28:27 PM [facility] Name Value Range Interpretation Code Description Data Marifer rce(s) Supporting Document(s) Prolactin [Mass/volume] in Serum or Plasma 20.8 ng/ml 4.0-15.2 H [facility] ID Date Data Source [id number] 12/09/2019 08:18:11 PM [facility] Name Value Range Interpretation Code Description Data Marifer rce(s) Supporting Document(s) Prostate Specific Ag Free/Prostate specific Ag.total i n Serum or Plasma 0.3 ng/mL <4.0 [facility] Serum levels of PSA should not be interp reted as absolute evidence of the presence or absence of Cancer. Results obtained with different methods cannot be used interchangeably. This method is manufactured by [employer] and is an electrochemiluminesence immunoassay. ID Date Data Source [id number] 12/08/2019 05:58:55 PM [facility] Value Range Interpretation Code Description Data Marifer rce(s) Supporting Document(s) Reference lab test name [facility] PER [facility] [place]UM[place] ON CREDIT SHEET 8049 Reference lab name [Identifier] [facility] PER [facility] [place] ON CREDIT SHEET 8049 Service comment [facility] ID Date Data Source [id number] 12/08/2019 10:14:35 AM [facility] Value Range Interpretation Code Description Data Marifer rce(s) Supporting Document(s) Progress Note [facility] DPSTIt5gEjDLBqFg79/SUFlvZAIha0AiGNfvVSo2QOgzYZRoU9NbVUZ1cZ8kDZR7SJuQXoKyWbRfATLn lbm LuJwtFTxFzZFLeAkoFZdSqTSevBpuyhTFjOO1RiWP9RUYuJ34pODQpRYKdG8AjCWA5HCQ+Om9YERKikL HsVL7YSkfY6B8xrzl0Bd6kcY3AvDOyRSL9fCLaZqLVBtkKgXDmDJxtV2T/mA2kg2S04+46F//7zvsOGf nxalZj+3m1l4Jz1sxrSrLPhDACdTBz/8dG7QwYX/J/ mz/RZIktgpp068GzYQYjopI/aftZV3BYsSG7RsjSjp+/2OEU8J6iCUJKGC+ffqpSYE42LxdAHS3n/Jones [file] [id number] ID Date Data Source [id number] 11:03:00 AM [facility] Cytogenetics ReportName: CYN LEAHY EWMRN: [id number] Number: [id number] Date: 12/08/2019 00:00Received Date: [...] is indicated.Electronically Signed By Bridger Hernandez, Ph.D., [facility], Director ofCytogenetics 12/16/2019 11:03:52DATA: METAPHASES COUNTED AND ANALYZED: 20 METAPHASES KARYOTYPED: 2BAND RESOLUTION: 650-750ISCN Nomenclature: 47,XXY Name Value Range Interpretation Code Description Data Marifer rce(s) Supporting Document(s) ID Date Data Source [id number] 12/12/2019 04:08:00 PM [facility] Molecular Genetics ReportName: FE LEAHY: [id number] Number: [id number] Date: 12/08/2019 00:00Received Date: [...] reflex tested only in individuals with the V928Bhlrznzpw and so was not tested in this [...] inCBAVD will not be detected by the The [employer] Cystic fibrosis 60 assaysince it is designed for CF carrier testing and confirmatory diagnostictesting. Cystic fibrosis is an autosomal recessive genetic disorder andboth parents of an affected child should be carriers of the disease. While more than 2,000 CFTR mutations have been described, the 60 CFTRmutations tested have a combined detection rate of about 90% of the CFchromosomes found in the [place] population. The detection rate isdependent upon the racial/ethnic ancestry and is typically lower. Mutations have been classified according to GenBank Legacy mutation names have been used - please contact the labregarding more recent changes to the nomenclature if needed.METHODS: DNA isolated from the patient was tested using the mSchoolystic fibrosis 60 kit v2 IVD assay which includes the 23 ACMG- recommendedmutations (in bold) plus additional global and/or [place] prevalentmutations: Delta F508, Delta I507, G542X, G85E, R117H, 621+1G>T,711+1G>T, R334W, R347P, A455E, 1717-1G>A, R560T, R553X, G551D, 1898+1G>A,2184delA, 2789+5G>A, 3120+1G>A, M3959U, 3659delC, 3849+10KbC>T, L4279D,T0035Q, 1078delT, 394delTT, Y122X, R347H, V520F, A559T, S549N, S549RT>G,1898+5G>T, 2183AA>G, 2307insA, P3748OV>A, L2952OA>G, L7258J, D3495P (ex.19[S7409K]), I9288K (ex. 20), 3876delA, 3905insT, E60X, R75X, 406- 1G>A,G178R, L206W, 935delA, G330X, Q493X, 1677delTA, 8135tdp1>A, 2143delT,K710X, 3791delC, Q890X, 5255wtu9, Y8616M, H0985J, L9898E, D8894Z,CFTRdele2,3 and F3103D. In addition, the IVS8-5T/7T/9T variant is reflextested only in individuals with the R117H mutation and the F508C, J424Lttb I506V variants are only reflex tested in individuals with a Delta F508or Delta I507 mutation. This test is intended for CF carrier testing andconfirmatory diagnostic testing and should be used in conjunction withother available laboratory and clinical information. The laboratory maintains quality assurance assessor and senior quality assurance analyst programs toensure a high quality of testing. [...] References:Vicky M et al (2000) Human Mutation 16:143-156Cusherrie H and Addy Fournier (2004) International Journal of Oqhvycxol36:251-256Waluisa MADRID et al (2004) Genetics in medicine 6(5):387-91Yu J et al (2012) Human Reproduction 27(1):25- [email or web address]://[email or web address] Electronically Signed By Rudy Hall, Ph.D., [facility] MolecularGeneticist 12/12/2019 16:08:50 Name Value Range Interpretation Code Description Data Marifer rce(s) Supporting Document(s) Procedure Social History Code Duration Value Status Description Data Source(s ) Alcohol intake 11/22/2020 12:00:00 AM EST Current drinker of al cohol (finding) completed Current drinker of alcohol (finding) [facility] Tobacco use and exposure 11/22/2020 12:00:00 AM EST Never used co mpleted Never used [facility] Smoking 11/22/2020 12:00:00 AM EST Never smoker completed Never s [facility] Smoking 11/15/2020 12:00:00 AM EST Never Smoker completed Never S kandis eCW1 ([facility]) Smoking 10/30/2020 12:00:00 AM EST Never Smoker completed Never S moker eCW1 ([facility]) Smoking 10/30/2020 12:00:00 AM EST Never Smoker completed Never S moker eCW1 ([facility]) Smoking 10/18/2020 12:00:00 AM EST Never Smoker completed Never S moker eCW1 ([facility]) Smoking 10/18/2020 12:00:00 AM EST Never Smoker completed Never S moker eCW1 ([facility]) Smoking 10/18/2020 12:00:00 AM EST Never Smoker completed Never S moker eCW1 ([facility]) Alcohol intake 03/08/2020 12:00:00 AM EDT Current drinker of al cohol (finding) completed Current drinker of alcohol (finding) [facility] Smoking 03/08/2020 12:00:00 AM EDT Never smoker completed Never [facility] Alcohol intake 01/09/2020 12:00:00 AM EST Current drinker of al cohol (finding) completed Current drinker of alcohol (finding) [facility] Smoking 01/09/2020 12:00:00 AM EST Never smoker completed Never s [facility] Alcohol intake 12/08/2019 12:00:00 AM EST Current drinker of al cohol (finding) completed Current drinker of alcohol (finding) [facility] Smoking 12/08/2019 12:00:00 AM EST Never smoker completed Never [facility] Vital Signs ID Date Data Source UNK [...] (BMI) [Ratio] 32.4 kg/m2 32.4 k g/m2 MEDENT (Dylan Shi MD) Body weight 213.00 [lb_av] 213.00 [lb_av] MU T (Dylan Shi MD) Body height 68 [in_i] 68 [in_i] PING (Dylan Shi MD) 5'8" Diastolic blood pressure 75 mm[Hg] 75 mm[Hg] eCW1 ([facility]) Systolic blood pressure 113 mm[Hg] 113 mm[Hg] e CW1 ([facility]) Body mass index (BMI) [Ratio] 31.93 kg/m2 31.93 kg/m2 W1 ([facility]) Body height 68 [in_i] 68 [in_i] eCW1 ([facility]) Body weight 210 [lb_av] 210 [lb_av] eCW1 ([facility]) Oxygen saturation in Arterial blood by Pulse oximetry 97 % 97 % MEDENT ([facility]) Respiratory rate 20 /min 20 /min MEDENT ( [facility]) Heart rate 79 /min 79 /min MEDENT ([facility]) Diastolic blood pressure 75 mm[Hg] 75 mm[Hg] MEDENT ([facility]) Systolic blood pressure 133 mm[Hg] 133 mm[Hg] M EDENT ([facility]) Oxygen saturation in Arterial blood by Pulse oximetry 98 % 98 % MEDENT (Dylan Shi MD) Heart rate 86 /min 86 /min MEDENT (Dylan Shi MD) Diastolic blood pressure 86 mm[Hg] 86 mm[Hg] MEDENT (Dylan Shi MD) Systolic blood pressure 131 mm[Hg] 131 mm[Hg] M EDENT (Dylan Shi MD) Body temperature 97.3 [degF] 97.3 [degF] STEVENENT (Dylan Shi MD) Body mass index (BMI) [Ratio] 31.9 kg/m2 31.9 k g/m2 STEVENENT (Dylan Shi MD) Body weight 210.00 [lb_av] 210.00 [lb_av] MU T (Dylan Shi MD) Body height 68 [in_i] 68 [in_i] MEDENT (Dylan Shi MD) 5'8" Diastolic blood pressure 78 mm[Hg] 78 mm[Hg] eCW1 ([facility]) Systolic blood pressure 122 mm[Hg] 122 mm[Hg] e CW1 ([facility]) Body mass index (BMI) [Ratio] 31.44 kg/m2 31.44 kg/m2 W1 ([facility]) Body height 68 [in_i] 68 [in_i] eCW1 ([facility]) Body weight 206.8 [lb_av] 206.8 [lb_av] eCW1 ([facility]) Diastolic blood pressure 72 mm[Hg] 72 mm[Hg] eCW1 ([facility]) Systolic blood pressure 112 mm[Hg] 112 mm[Hg] e CW1 ([facility]) Body mass index (BMI) [Ratio] 31.56 kg/m2 31.56 kg/m2 [facility] ([facility]) Body height 68 [in_i] 68 [in_i] eCW1 ([facility]) Body weight 207.6 [lb_av] 207.6 [lb_av] eCW1 ([facility]) Body surface area Derived from formula 2.04 m2 2.04 m2 MEDENT ([facility]) Body mass index (BMI) [Ratio] 30.4 kg/m2 30.4 k g/m2 MEDENT ([facility]) Body height 68 [in_i] 68 [in_i] MEDENT ([facility]) 5'8" Body weight 90.833 kg 90.833 kg MEDENT ([facility]) Body weight 200.25 [lb_av] 200.25 [lb_av] MEDEN T ([facility]) Oxygen saturation in Arterial blood by Pulse oximetry 98 % 98 % [facility] Respiratory rate 16 /min 16 /min MEDENT ( [facility]) Body temperature 97.8 [degF] 97.8 [degF] MEDENT ([facility]) Heart rate 87 /min 87 /min MEDENT ([facility]) Diastolic blood pressure 82 mm[Hg] 82 mm[Hg] MEDENT ([facility]) Systolic blood pressure 110 mm[Hg] 110 mm[Hg] M EDENT ([facility]) Body mass index (BMI) [Ratio] 31.77 kg/m2 31.77 kg/m2 eCW1 ([facility]) Body height 68 [in_us] 68 [in_us] eCW1 ([facility]) Body weight Measured 209 [lb_av] 209 [lb_av] eC W1 ([facility]) Diastolic blood pressure 68 mm[Hg] 68 mm[Hg] eCW1 ([facility]) Systolic blood pressure 104 mm[Hg] 104 mm[Hg] e CW1 ([facility]) Body mass index (BMI) [Ratio] 32.02 kg/m2 32.02 kg/m2 eCW1 ([facility]) Body height 68 [in_us] 68 [in_us] eCW1 ([facility]) Body weight Measured 210.6 [lb_av] 210.6 [lb_av ] eCW1 ([facility]) Oxygen saturation in Arterial blood by Pulse oximetry 96 % 96 % MEDENT ([facility] ) Body mass index (BMI) [Ratio] 29.8 kg/m2 29.8 k g/m2 MEDENT ([facility] ) Body weight 193.00 [lb_av] 193.00 [lb_av] MEDEN T ([facility]) Body height 67.5 [in_i] 67.5 [in_i] MEDENT ([facility]) 5'7.50" Heart rate 71 /min 71 /min MEDENT ([facility]) Diastolic blood pressure 72 mm[Hg] 72 mm[Hg] MEDENT ([facility]) Systolic blood pressure 120 mm[Hg] 120 mm[Hg] M EDENT ([facility] ) Diastolic blood pressure 62 mm[Hg] 62 mm[Hg] eCW1 ([facility]) Systolic blood pressure 116 mm[Hg] 116 mm[Hg] e CW1 ([facility]) Body temperature 97.4 [degF] 97.4 [degF] eCW1 ( [facility]) Respiratory rate 18 /min 18 /min eCW1 ([facility]) Heart rate 88 /min 88 /min eCW1 ([facility]) Body mass index (BMI) [Ratio] 30.83 kg/m2 30.83 kg/m2 eCW1 ([facility]) Body height 68 [in_us] 68 [in_us] eCW1 ([facility]) Body weight Measured 202.8 [lb_av] 202.8 [lb_av ] eCW1 ([facility]) Diastolic blood pressure 60 mm[Hg] 60 mm[Hg] eCW1 ([facility]) Systolic blood pressure 114 mm[Hg] 114 mm[Hg] e CW1 ([facility]) Body temperature 97.5 [degF] 97.5 [degF] eCW1 ( [facility]) Respiratory rate 16 /min 16 /min eCW1 ([facility]) Heart rate 85 /min 85 /min eCW1 ([facility]) Body mass index (BMI) [Ratio] 29.65 kg/m2 29.65 kg/m2 eCW1 ([facility]) Body height 68 [in_us] 68 [in_us] eCW1 ([facility]) Body weight Measured 195 [lb_av] 195 [lb_av] eC W1 ([facility]) ID Date Data Source [id number] 12/13/2020 09:40:47 AM [facility] Name Value Range Interpretation Code Description Data Source(s) WEIGHT RECORDED 207.00 pounds 207.00 pounds [facility] Height 68 Inches 068 Inches [facility] ID Date Data Source [id number] 12/16/2019 11:04:12 AM [facility] Name Value Range Interpretation Code Description Data Source(s) WEIGHT RECORDED [address] [facility] Body height Measured 68 in 68 in [facility] Patient Treatment Plan of Care Planned Activity Planned Date Details Description Data Source (s) HM LIDOCAINE PATCH EX 11/07/2020 12:00:00 AM [facility] Escitalopram 20 MG Oral Tablet 11/07/2020 12:00:00 AM [facility] Trazodone Hydrochloride 50 MG Oral Tablet 11/07/2020 12:00:00 AM [facility] apixaban 5 MG Oral Tablet 11/07/2020 12:00:00 AM [facility] Xolair 150 MG/ML 10/19/2020 12:00:00 AM EST eCW1 ([facility]) Xolair 150 MG/ML 10/19/2020 12:00:00 AM EST eCW1 ([facility]) Xolair 150 MG/ML 10/19/2020 12:00:00 AM EST eCW1 ([facility]) Betamethasone 0.0005 MG/MG Augmented Topical Ointment 03/23/2020 12:00:00 AM EDT eCW1 ([facility]) Ivermectin 3 MG Oral Tablet 03/09/2020 12:00:00 AM EDT eCW1 ([facility]) cetirizine hydrochloride 10 MG Oral Tablet 03/09/2020 12:00:00 AM E DT eCW1 ([facility]) Syringe/Needle (Disp) 22G X 1-1/2" 1 ML (Tasneem anderson) 01/09/2020 12:00:00 AM [facility] Chorionic Gonadotropin 79497 UNT/ML Injectable Solutio n 01/06/2020 12:00:00 AM [facility] Chorionic Gonadotropin 03196 UNT/ML Injectable Solutio n 12/09/2019 12:00:00 AM [facility] cetirizine hydrochloride 10 MG Oral Tablet [Zyrtec] 11/22/19 12:00:00 AM EST eCW1 ([facility]) mometasone furoate 1 MG/ML Topical Cream 11/22/2019 12:00:00 AM EST eCW1 ([facility])
[2020-12-27 17:56] LABS: HEMATOCRIT 44.5 % (42.0-52.0); HEMOGLOBIN 14.3 g/dl (13.5-17.5); MEAN CORPUSCULAR HEMOGLOBIN 29.4 pg (27.0-33.0); MEAN CORPUSCULAR HGB CONC 32.1 g/dl (32.0-36.5); MEAN CORPUSCULAR VOLUME 91.6 fl (80.0-96.0); PLATELET COUNT, AUTOMATED 182 10^3/uL (150-450); RED BLOOD COUNT 4.86 10^6/uL (4.30-6.10); WHITE BLOOD COUNT 5.6 10^3/uL (4.0-10.0)
[2020-12-27 18:21] LABS: AMPHETAMINES LEVEL URINE NEGATIVE (NEGATIVE); BARBITURATES URINE NEGATIVE (NEGATIVE); BENZODIAZEPINES URINE NEGATIVE (NEGATIVE); CANNABINOIDS URINE NEGATIVE (NEGATIVE); COCAINE METABOLITE URINE NEGATIVE (NEGATIVE); METHADONE URINE NEGATIVE (NEGATIVE); OPIATES URINE POSITIVE (NEGATIVE); PHENCYCLIDINE URINE NEGATIVE (NEGATIVE)
[2020-12-27 18:22] LABS: ACETAMINOPHEN LEVEL < 2.0 UG/ML (10.0-30.0); ALBUMIN 3.7 GM/DL (3.2-5.2); ALT/SGPT 64 U/L (12-78); BILIRUBIN,DIRECT 0.1 MG/DL (0.0-0.2); BILIRUBIN,TOTAL 0.5 MG/DL (0.2-1.0); BLOOD UREA NITROGEN 10 MG/DL (7-18); CALCIUM LEVEL 8.8 MG/DL (8.5-10.1); CARBON DIOXIDE LEVEL 26 MEQ/L (21-32); CHLORIDE LEVEL 108 MEQ/L (98-107); CREATININE FOR GFR 1.02 MG/DL (0.70-1.30); ETHYL ALCOHOL (ETHANOL) < 0.003 % (0.000-0.010); GLOMERULAR FILTRATION RATE > 60.0 (>60); GLUCOSE, FASTING 74 MG/DL (70-100); POTASSIUM SERUM 3.9 MEQ/L (3.5-5.1); SALICYLATE LEVEL < 1.7 MG/DL (5.0-30.0); SODIUM LEVEL 141 MEQ/L (136-145); TOTAL PROTEIN 7.5 GM/DL (6.4-8.2)
[2020-12-27] MEDS ORDERED: MOM 30ML SUSPENSION UDC PO PRN (19:45)
[2020-12-27] MEDS ORDERED: MAALOX 30 ML SUSP *UDC PO PRN (19:45)
[2020-12-27] MEDS ORDERED: ACETAMINOPHEN TAB 650MG DOSE (2X325MG) PO PRN (19:45)
--- OUTSIDE RECORDS SUMMARY | 2020-12-27 20:12 | CCD ---
Author [facility] Organization [facility] Address Unknown Phone Unavailable Care Team Providers Care Heel Trimmer Name Role Phone Benjy BANG Unavailable Unavailable [...] MAQBOOL DYLAN MD Unavailable Unavailable JAZMIN, MAQBOOL DYALN MD Unavailable Unavailable JAZMIN, MAQBOOL DYLAN MD [...] Colon, Angel Unavailable Unavailable Han, M Raquel CHIPPER FEEDER Unavailable Unavailable Han, M Raquel CHIPPER FEEDER Unavailable Unavailable Han, M Raquel CHIPPER FEEDER Unavailable Unavailable Han, M Raquel CHIPPER FEEDER Unavailable Unavailable Han, M Raquel CHIPPER FEEDER Unavailable Unavailable Han, M Raquel CHIPPER FEEDER Unavailable Unavailable Han, M Raquel CHIPPER FEEDER Unavailable Unavailable Han, M Raquel CHIPPER FEEDER Unavailable Unavailable Han, M Raquel CHIPPER FEEDER Unavailable Unavailable Han, M Raquel CHIPPER FEEDER Unavailable Unavailable Han, M Raquel CHIPPER FEEDER Unavailable Unavailable Han, M Raquel CHIPPER FEEDER Unavailable Unavailable Han, M Raquel CHIPPER FEEDER Unavailable Unavailable KASSIDY, CHICHI CHIPPER FEEDER Unavailable Unavailable KASSIDY, CHICHI CHIPPER FEEDER Unavailable Unavailable KASSIDY, CHICHI CHIPPER FEEDER Unavailable Unavailable KASSIDY, CHICHI CHIPPER FEEDER Unavailable Unavailable KASSIDY, CHICHI CHIPPER FEEDER Unavailable Unavailable KASSIDY, CHICHI CHIPPER FEEDER Unavailable Unavailable KASSIDY, CHICHI CHIPPER FEEDER Unavailable Unavailable COOK, B DENIA CHIPPER FEEDER Unavailable Unavailable COOK, B DENIA CHIPPER FEEDER Unavailable Unavailable COOK, B DENIA CHIPPER FEEDER Unavailable Unavailable COOK, B DENIA CHIPPER FEEDER Unavailable Unavailable COOK, B DENIA CHIPPER FEEDER Unavailable Unavailable COOK, B DENIA CHIPPER FEEDER Unavailable Unavailable COOK, B DENIA CHIPPER FEEDER Unavailable Unavailable COOK, B DENIA CHIPPER FEEDER Unavailable Unavailable COOK, B DENIA CHIPPER FEEDER Unavailable Unavailable COOK, B DENIA CHIPPER FEEDER Unavailable Unavailable COOK, B DENIA CHIPPER FEEDER Unavailable Unavailable COOK, B DENIA CHIPPER FEEDER Unavailable Unavailable COOK, B DENIA CHIPPER FEEDER Unavailable Unavailable COOK, B DENIA CHIPPER FEEDER Unavailable Unavailable COOK, B DENIA CHIPPER FEEDER Unavailable Unavailable COOK, B DENIA CHIPPER FEEDER Unavailable Unavailable COOK, B DENIA CHIPPER FEEDER Unavailable Unavailable COOK, B DENIA CHIPPER FEEDER Unavailable Unavailable COOK, B DENIA CHIPPER FEEDER Unavailable Unavailable COOK, B DENIA CHIPPER FEEDER Unavailable Unavailable COOK, B DENIA CHIPPER FEEDER Unavailable Unavailable COOK, B DENIA CHIPPER FEEDER Unavailable Unavailable COOK, B DENIA CHIPPER FEEDER Unavailable Unavailable COOK, B DENIA CHIPPER FEEDER Unavailable Unavailable COOK, B DENIA CHIPPER FEEDER Unavailable Unavailable COOK, B DENIA CHIPPER FEEDER Unavailable Unavailable COOK, B DENIA CHIPPER FEEDER Unavailable Unavailable COOK, B DENIA CHIPPER FEEDER Unavailable Unavailable COOK, B DENIA CHIPPER FEEDER Unavailable Unavailable COOK, B DENIA CHIPPER FEEDER Unavailable Unavailable COOK, B DENIA CHIPPER FEEDER Unavailable Unavailable COOK, B DENIA CHIPPER FEEDER Unavailable Unavailable COOK, B DENIA CHIPPER FEEDER Unavailable Unavailable COOK, B DENIA CHIPPER FEEDER Unavailable Unavailable COOK, B DENIA CHIPPER FEEDER Unavailable Unavailable COOK, B DENIA CHIPPER FEEDER Unavailable Unavailable COOK, B DENIA CHIPPER FEEDER Unavailable Unavailable COOK, B DENIA CHIPPER FEEDER Unavailable Unavailable COOK, B DENIA CHIPPER FEEDER Unavailable Unavailable COOK, B DENIA CHIPPER FEEDER Unavailable Unavailable COOK, B DENIA CHIPPER FEEDER Unavailable Unavailable COOK, B DENIA CHIPPER FEEDER Unavailable Unavailable COOK, B DENIA CHIPPER FEEDER Unavailable Unavailable COOK, B DENIA CHIPPER FEEDER Unavailable Unavailable COOK, B DENIA CHIPPER FEEDER Unavailable Unavailable COOK, B DENIA CHIPPER FEEDER Unavailable Unavailable COOK, B DENIA CHIPPER FEEDER Unavailable Unavailable COOK, B DENIA CHIPPER FEEDER Unavailable Unavailable COOK, B DENIA CHIPPER FEEDER Unavailable Unavailable COOK, B DENIA CHIPPER FEEDER Unavailable Unavailable COOK, B DENIA CHIPPER FEEDER Unavailable Unavailable COOK, B DENIA CHIPPER FEEDER Unavailable Unavailable COOK, B DENIA CHIPPER FEEDER Unavailable Unavailable COOK, B DENIA CHIPPER FEEDER Unavailable Unavailable COOK, B DENIA CHIPPER FEEDER Unavailable Unavailable COOK, B DENIA CHIPPER FEEDER Unavailable Unavailable COOK, B DENIA CHIPPER FEEDER Unavailable Unavailable COOK, B DENIA CHIPPER FEEDER Unavailable Unavailable COOK, B DENIA CHIPPER FEEDER Unavailable Unavailable COOK, B DENIA CHIPPER FEEDER Unavailable Unavailable COOK, B DENIA CHIPPER FEEDER Unavailable Unavailable COOK, B DENIA CHIPPER FEEDER Unavailable Unavailable COOK, B DENIA CHIPPER FEEDER Unavailable Unavailable COOK, B DENIA CHIPPER FEEDER Unavailable Unavailable Broadbent Falanga, A Cari BLOWN FILM EXTRUSION OPERATOR Unavailable Unavailable Oscar Falanga, A Cari BLOWN FILM EXTRUSION OPERATOR Unavailable Unavailable Broadbent Falanga, A Cari BLOWN FILM EXTRUSION OPERATOR Unavailable Unavailable Broadbent Falanga, A Cari BLOWN FILM EXTRUSION OPERATOR Unavailable Unavailable Broadbent Falanga, A Cari BLOWN FILM EXTRUSION OPERATOR Unavailable Unavailable Broadbent Falanga, A Cari BLOWN FILM EXTRUSION OPERATOR Unavailable Unavailable Oscar Falanga, A Cari BLOWN FILM EXTRUSION OPERATOR Unavailable Unavailable Broadbent Falanga, A Cari BLOWN FILM EXTRUSION OPERATOR Unavailable Unavailable Oscar Falanga, A Cari BLOWN FILM EXTRUSION OPERATOR Unavailable Unavailable Oscar Falanga, A Cari BLOWN FILM EXTRUSION OPERATOR Unavailable Unavailable Broadbent Falanga, A Cari BLOWN FILM EXTRUSION OPERATOR Unavailable Unavailable Oscar Falanga, A Cari BLOWN FILM EXTRUSION OPERATOR Unavailable Unavailable Oscar Falanga, A Cari BLOWN FILM EXTRUSION OPERATOR Unavailable Unavailable Broadbent Falanga, A Cari BLOWN FILM EXTRUSION OPERATOR Unavailable Unavailable Broadbent Falanga, A Cari BLOWN FILM EXTRUSION OPERATOR Unavailable Unavailable Oscar Falanga, A Cari BLOWN FILM EXTRUSION OPERATOR Unavailable Unavailable Oscar Falanga, A Cari BLOWN FILM EXTRUSION OPERATOR Unavailable Unavailable Broadbent Falanga, A Cari BLOWN FILM EXTRUSION OPERATOR Unavailable Unavailable Broadbent Falanga, A Cari BLOWN FILM EXTRUSION OPERATOR Unavailable Unavailable Oscar Falanga, A Cari BLOWN FILM EXTRUSION OPERATOR Unavailable Unavailable Oscar Falanga, A Cari BLOWN FILM EXTRUSION OPERATOR Unavailable Unavailable Oscar Falanga, A Cari BLOWN FILM EXTRUSION OPERATOR Unavailable Unavailable Oscar Falanga, A Cari BLOWN FILM EXTRUSION OPERATOR Unavailable Unavailable Broadbent Falanga, A Cari BLOWN FILM EXTRUSION OPERATOR Unavailable Unavailable Broadbent Falanga, A Cari BLOWN FILM EXTRUSION OPERATOR Unavailable Unavailable Broadbent Falanga, A Cari BLOWN FILM EXTRUSION OPERATOR Unavailable Unavailable Oscar Falanga, A Cari BLOWN FILM EXTRUSION OPERATOR Unavailable Unavailable Oscar Falanga, A Cari BLOWN FILM EXTRUSION OPERATOR Unavailable Unavailable Broadbent Falanga, A Cari BLOWN FILM EXTRUSION OPERATOR Unavailable Unavailable Oscar Falanga, A Cari BLOWN FILM EXTRUSION OPERATOR Unavailable Unavailable OBEN, T BENITO MD Unavailable [...] Lombardo MD Unavailable Unavailable EANNIELLO, L SHANNA CHIPPER FEEDER Unavailable Unavailable EANNIELLO, L SHANNA CHIPPER FEEDER Unavailable Unavailable EANNIELLO, L SHANNA CHIPPER FEEDER Unavailable Unavailable EANNIELLO, L SHANNA CHIPPER FEEDER Unavailable Unavailable EANNIELLO, L SHANNA CHIPPER FEEDER Unavailable Unavailable EANNIELLO, L SHANNA CHIPPER FEEDER Unavailable Unavailable EANNIELLO, L SHANNA CHIPPER FEEDER Unavailable Unavailable EANNIELLO, L SHANNA CHIPPER FEEDER Unavailable Unavailable EANNIELLO, L SHANNA CHIPPER FEEDER Unavailable Unavailable EANNIELLO, L SHANNA CHIPPER FEEDER Unavailable Unavailable EANNIELLO, L SHANNA CHIPPER FEEDER Unavailable Unavailable EANNIELLO, L SHANNA CHIPPER FEEDER Unavailable Unavailable EANNIELLO, L SHANNA CHIPPER FEEDER Unavailable Unavailable EANNIELLO, L SHANNA CHIPPER FEEDER Unavailable Unavailable EANNIELLO, L SHANNA CHIPPER FEEDER Unavailable Unavailable EANNIELLO, L SHANNA CHIPPER FEEDER Unavailable Unavailable EANNIELLO, L SHANNA CHIPPER FEEDER Unavailable Unavailable EANNIELLO, L SHANNA CHIPPER FEEDER Unavailable Unavailable EANNIELLO, L SHANNA CHIPPER FEEDER Unavailable Unavailable EANNIELLO, L SHANNA CHIPPER FEEDER Unavailable Unavailable EANNIELLO, L SHANNA CHIPPER FEEDER Unavailable Unavailable EANNIELLO, L SHANNA CHIPPER FEEDER Unavailable Unavailable EANNIELLO, L SHANNA CHIPPER FEEDER Unavailable Unavailable EANNIELLO, L SHANNA CHIPPER FEEDER Unavailable Unavailable EANNIELLO, L SHANNA CHIPPER FEEDER Unavailable Unavailable EANNIELLO, L SHANNA CHIPPER FEEDER Unavailable Unavailable EANNIELLO, L SHANNA CHIPPER FEEDER Unavailable Unavailable EANNIELLO, L SHANNA CHIPPER FEEDER Unavailable Unavailable EANNIELLO, L SHANNA CHIPPER FEEDER Unavailable Unavailable EANNIELLO, L SHANNA CHIPPER FEEDER Unavailable Unavailable EANNIELLO, L SHANNA CHIPPER FEEDER Unavailable Unavailable EANNIELLO, L SHANNA CHIPPER FEEDER Unavailable Unavailable EANNIELLO, L SHANNA CHIPPER FEEDER Unavailable Unavailable Veeravanallur Appuswamy, Viridiana Unavailable Unavail [...] Unavailable Unavailable Ce, Wajeeh MD Unavailable Unavailable Ec, Wajeeh MD Unavailable Unavailable Ce, Wajeeh MD Unavailable Unavailable Ce, Wajeeh MD Unavailable Unavailable Ce, Wajeeh MD Unavailable Unavailable Ce, Wajeeh MD Unavailable Unavailable Ce, Wajeeh MD Unavailable Unavailable Ce, Wajeeh MD Unavailable Unavailable Ce, Wajeeh MD Unavailable Unavailable Ce, Wajeeh MD Unavailable Unavailable Ce, Wajeeh MD Unavailable Unavailable Ce, Wajeeh MD Unavailable Unavailable [place], N Chloe PA Unavailable Unavailable [place], N Chloe PA Unavailable Unavailable [place], N Chloe PA Unavailable Unavailable [place], N Chloe PA Unavailable Unavailable [place], N Chloe PA Unavailable Unavailable [place], N Chloe PA Unavailable Unavailable [place], N Chloe PA Unavailable Unavailable [place], N Chloe PA Unavailable Unavailable [place], N Chloe PA Unavailable Unavailable Re-disclosure Warning [...] is protected by Article 27-F of the [facility] Public Health law. If you continue you may have access to information: Regarding HIV / AIDS; Provided by facilities licensed or operated by the [facility] Office of Mental Health; or Provided by the [facility] Office for People With Developmental Disabilities. If such information is present, then the following [facility] mandated warning applies: This information has [...] law may result in a fine or custodial sentence or both. A general authorization for the release of medical or other information is NOT sufficient authorization for further disc losure. Allergies and Adverse Reactions Type Description Substance Reaction Status Data Source(s ) No Known Drug Allergies No Known Drug Allergies [facility] Food allergy SEAFOOD SEAFOOD [facility] Drug allergy shellfish derived shellfish derived ADDITIONAL UNSPECIFI ED [facility] shellfish shellfish shellfish oral edema Active eCW1 ([facility]) Macrobid Macrobid NITROFURANTOIN, MACR OCRYSTALS 25 MG / Nitrofurantoin, Monohydrate 75 MG Oral Capsule [Macrobid] Hives Active eCW1 ([facility]) shellfish shellfish shellfish oral edema Active eCW1 ([facility]) shellfish shellfish shellfish oral edema Active eCW1 ([facility]) Drug allergy Sulfa (for allergy use only) Drug allergy unknown Act xiomara eCW1 ([facility]) Drug allergy Macrobid nitrofurantoin, macr ocrystals / nitrofurantoin, monohydrate Hives Active eCW1 ([facility]) aspirin Aspirin Aspirin Hives Active eCW1 ([facility]) Drug allergy Primaquine Phosphate Primaquine Hives Active eC W1 ([facility]) Propensity to adverse reactions shellfish Propensity to ad verse reactions oral edema Active eCW1 ([facility]) Drug allergy Sulfa (for allergy use only) Drug allergy unknown Act xiomara eCW1 ([facility]) Propensity to adverse reactions shellfish Propensity to ad verse reactions oral edema Active eCW1 ([facility]) Drug allergy Sulfa (for allergy use only) Drug allergy unknown Act xiomara eCW1 ([facility]) Propensity to adverse reactions shellfish Propensity to ad verse reactions oral edema Active eCW1 ([facility]) Drug allergy Sulfa (for allergy use only) Drug allergy unknown Act xiomara eCW1 ([facility]) Propensity to adverse reactions shellfish Propensity to ad verse reactions oral edema Active eCW1 ([facility]) Drug allergy Sulfa (for allergy use only) Drug allergy unknown Act xiomara eCW1 ([facility]) Propensity to adverse reactions shellfish Propensity to ad verse reactions oral edema Active eCW1 ([facility]) Drug allergy Sulfa (for allergy use only) Drug allergy unknown Act xiomara eCW1 ([facility]) Propensity to adverse reactions shellfish Propensity to ad verse reactions oral edema Active eCW1 ([facility]) shellfish shellfish shellfish oral edema Active eCW1 ([facility]) Drug Allergy Drug Allergy NKDA MEDENT ([facility]) Encounters Encounter Providers Location Date Indications Data Source(s ) Outpatient Attender: Isabel CRAIG MD 2021 12:00:00 AM [facility] Emergency Attender: LUZMA BANGConsultant: STAFF N ON 12/27/2020 10:55:00 AM EST - 12/27/2020 01:35:00 PM [facility] Patient discharged. Emergency Attender: Addy ANTOINECConsultant: STAFF NO N 12/20/2020 11:29:00 AM EST - 12/20/2020 03:03:00 PM [facility] Patient discharged. Emergency Attender: BRANT Rothsultant: STAFF NON 12/19/2020 09:11:00 AM EST - 12/19/2020 01:41:00 PM [facility] Patient discharged. Outpatient Attender: DYLAN SHI MD Medical [facility] 12/18 12:15:00 PM EST MEDENT (Dylan Shi MD) Outpatient Attender: Cari orr FNPAttender: SABRINA KELLYConsultant: STAFF NON 12/01/2020 02:50:00 PM EST - 12/03/2020 12:25:00 PM EST [facility] Patient discharged. Outpatient Attender: Isabel CRAIG MD [id number] 11/22/2020 12:00:00 AM [facility] Emergency Attender: BRANT LUNAConsultant: STAFF NON 11/19/2020 02:16:00 PM EST - 11/19/2020 03:51:00 PM EST [facility] Patient discharged. [place] [address] [facility] [address] 11/15/2020 12:00:00 AM EST eCW1 ([facility]) Outpatient Attender: BENITO WILLETT MDConsultant: STAFF NON 11/14/2020 01:25:00 PM EST - 11/14/2020 01:25:00 PM EST [facility] Outpatient Attender: BENITO WILLETT MD Family [facility] 11/14/2020 12:00:0 0 PM EST MEDENT ([facility]) Outpatient Attender: DYLAN SHI MD [facility] 11/07 01:15:00 PM EST [facility] (Dylan Shi MD) [place] [address] [facility] [address] 10/30/2020 12:00:00 AM EST eCW1 ([facility]) [place] [address] [facility] [address] 10/25/2020 12:00:00 AM EST eCW1 ([facility]) Emergency Attender: Addy ANTOINECConsultant: STAFF NO N 10/19/2020 10:32:00 AM EST - 10/19/2020 01:51:00 PM [facility] Patient discharged. [place]op [place] [address] [facility] [address] 10/19/2020 12:00:00 AM EST eCW1 ([facility]) Unknown [address] [facility] [address] 10/19/2020 12:00:00 AM EST eCW1 ([facility]) [place] [address] [facility] [address] 10/18/2020 12:00:00 AM EST eCW1 ([facility]) Emergency Attender: BRANT LUNAConsultant: STAFF NON 09/17/2020 08:46:00 AM EST - 09/17/2020 12:18:00 PM EST [facility] Patient discharged. Outpatient Attender: Jyoti Lombardo MDConsultant: STAFF NON 09/07/2020 02:36:00 PM EDT - 09/07/2020 02:36:00 PM EDT [facility] Emergency Attender: Dee Encinas MD 020 11:01:00 AM EDT - 08/05/2020 04:21:00 PM EDT [facility] Patient discharged. Outpatient Attender: Angel FinneganAdmitter: Angel Louiesucolleen nt: Angel Finnegan 07/27/2020 07:15:00 PM EDT Suicide attempt [facility] Suicide attempt Inpatient Attender: Angel FinneganAttender: AMBREEN SHAH MDAdmi tter: Angel Finnegan 07/27/2020 07:15:00 PM EDT - 08/07/2020 02:45:00 PM EDT Suicide attempt [facility] Suicide attempt Patient discharged. Outpatient Attender: AMBREEN SHAH MDAdmi tter: AMBREEN SHAH MDConsultant: AMBREEN SHAH MD 07/27/2020 07:15:00 PM EDT [facility] Outpatient Attender: CHICHI YI NPAdm itter: AMBREEN SHAH MDConsultant: AMBREEN SHAH MD 07/27/2020 07:15:00 PM EDT [facility] Outpatient Attender: CHICHI YI NPAdm [...] Outpatient Attender: Viridiana Marin 07/27/2020 12:00:00 AM [facility] Outpatient Attender: Viridiana Marin Referrer: SHANNA ARNOLD NP 06/06/2020 12:00:00 AM EDT [facility] Outpatient Attender: Malick Grijalva mitter: Malick Hernandez MDConsultant: Malick Hernandez MD 06/01/2020 10:05:00 AM EDT Suicidal idea tion/Homicidal ideation [facility] Suicidal ideation/Homicidal ideation Inpatient Attender: Malick Hernandez MDAdmitter: Malick tobar MD 06/01/2020 10:05:00 AM EDT - 06/05/2020 11:15:00 AM EDT Suicidal ideation/Homicidal ideation [facility] Suicidal ideation/Homicidal ideation Patient discharged. Outpatient Attender: Malick Grijalva mitter: Malick Hernandez MDConsultant: Malick Hernandez MD 06/01/2020 10:05:00 AM EDT Suicidal idea tion/Homicidal ideation [facility] Suicidal ideation/Homicidal ideation Outpatient Attender: Angel FinneganAdmitter : Malick Hernandez MDConsultant: Malick Hernandez MD 06/01/2020 10:05:00 AM EDT Suicidal ideation/Shanika icidal ideation [facility] Suicidal ideation/Homicidal ideation Outpatient Attender: Angel FinneganAdmitter : Malick Hernandez MDConsultant: Malick Hernandez MD 06/01/2020 10:05:00 AM EDT Suicidal ideation/Shanika icidal ideation [facility] Suicidal ideation/Homicidal ideation Outpatient Attender: Raquel Lester mitter: Malick Hernandez MDConsultant: Malick Hernandez MD 06/01/2020 10:05:00 AM EDT Suicidal idea tion/Homicidal ideation [facility] Suicidal ideation/Homicidal ideation Outpatient Attender: Malick Grijalva mitter: Malick Hernandez MDConsultant: aMlick Hernandez MD 06/01/2020 10:05:00 AM EDT Suicidal idea tion/Homicidal ideation [facility] Suicidal ideation/Homicidal ideation Outpatient 05/04/2020 04:51:00 AM EDT [facility] D[facility]atology [address] [place] [address] 03/23/2020 12:00:00 AM EDT eCW1 ([facility]) [facility] [address] [place] [address] 03/09/2020 12:00:00 AM EDT eCW1 ([facility]) Outpatient Attender: Isabel CRAIG MD 03/09/2020 12:00:00 AM [facility] Outpatient Attender: Isabel CRAIG MD [id number] 03/08/2020 12:00:00 AM [facility] Outpatient 02/09/2020 04:41:00 AM [facility] Outpatient Attender: Isabel CRAIG MD 01/12/2020 12:00:00 AM [facility] Outpatient Attender: Isabel CRAIG MD [id number] 01/09/20 20 12:00:00 AM EST - 01/09/2020 01:33:24 PM [facility] Outpatient Attender: Isabel CRAIG MD 01/06/2020 12:00:[address] [address] 12/26/2019 12:00:00 AM EST eCW1 ([facility]) Outpatient Attender: DENIA MCCULLOUGH CHIPPER FEEDER Physical Therapy 12/21/2019 0 9:45:00 AM EST [facility] ([facility]) [address] [address] 12/19/2019 12:00:00 AM EST eCW1 ([facility]) [address] [address] 12/19/2019 12:00:00 AM EST eCW1 ([facility]) Outpatient 12/13/2019 12:00:00 AM [facility] Outpatient Attender: Isabel CAMPOSeferrer: Isabel CRAIG MD 12/09/2019 12:00:00 AM EST Male infertility, unspecified [facility] Male infertility, unspecified Outpatient 12/09/2019 12:00:00 AM [facility] Outpatient Attender: Isabel CRAIG MDAdmitter: Isabel CRAIG MD 0 [id number] 12/08/2019 12:00:00 AM EST - 12/08/2019 10:07:51 AM EST Male infertility, unspecified [facility] Male infertility, unspecified Outpatient Attender: Isabel CRAIG MDAaliciait ter: Isabel Graveser: Isabel CRAIG MD 12/08/2019 12:00:00 AM EST Male infertility, uns pecified [facility] Male infertility, unspecified [facility] [address] [facility] [address] 11/29/2019 12:00:00 AM EST eCW1 ([facility]) [facility] [address] [facility] [address] 11/22/2019 12:00:00 AM EST eCW1 ([facility]) Medications Medication Brand Name Start Date Product Form Dose Route Admi nistrative Instructions Pharmacy Instructions Status Indications Reaction Description Data Source(s) HM LIDOCAINE PATCH EX 11/07/2020 12:00:00 AM EST [facility] Methocarbamol 500 MG Oral Tablet Methocarbamol [...] Tablet (Eliquis) 11/07/2020 12:00:00 AM EST activ [facility] Trazodone Hydrochloride 50 MG Oral Table t traZODone HCl 50 MG Oral Tablet (DESYREL) traZODone HCl 50 MG Oral Tablet (DESYREL) 11/07/2020 12:00:0 0 AM EST [facility] Escitalopram 20 MG Oral Tablet Escitalopram Oxalate 20 MG Oral Tablet (LEXAPRO) Escitalopram Oxalate 20 MG Oral Tablet (LEXAPRO) 11/07/2020 12:00:00 AM EST 10 mg active 10 mg [facility] Divalproex Sodium 250 MG Delayed Release [...] AM EST active Xolair 150 MG/ML eCW1 ([facility]) Xolair 150 MG/ML Xolair 150 MG/ML 10/19/2020 12:00:00 AM EST active Xolair 150 MG/ML eCW1 ([facility]) Xolair 150 MG/ML Xolair 150 MG/ML 10/19/2020 12:00:00 AM EST active Xolair 150 MG/ML eCW1 ([facility]) Betamethasone 0.0005 MG/MG Augmented Top ical Ointment Betamethasone Dipropionate Aug 0.05 % Betamethasone Dipropionate Aug 0.05 % 03/23/2020 12:00:00 AM EDT active 1 application eCW1 ([facility]) Ivermectin 3 MG Oral Tablet Ivermectin 3 MG 03/09/2020 12:00:00 AM EDT active 3 tablets eCW1 ([facility]) cetirizine hydrochloride 10 MG Oral Tablet Cetirizine HCl 10 MG Cetirizine HCl 10 MG 03/09/2020 12:00:00 AM EDT active 1 tablet eCW1 ([facility]) Syringe/Needle (Disp) 22G X 1-1/2" 1 ML ([employer] Syringe) 1 99321 01/09/2020 12:00:00 AM EST active Use as directed. Use as directed for HCG intramuscular injection [facility] Chorionic Gonadotropin 03003 UNT/ML Inje ctable Solution Chorionic Gonadotropin 77647 UNIT Intramuscular Solution Reconstituted Chorionic Gonadotropin 48876 UNIT Intramuscular Solution Reconstituted 01/06/2020 12:00:00 AM EST 1000 U Intramuscular active Inject 1,00 0 Units into the muscle 3 (three) times a week Inject 1000 units on Thursday, Thursday and Thursday, Max Daily Dose: 1,000 Units [facility] Chorionic Gonadotropin 35643 UNT/ML Inje ctable Solution Chorionic Gonadotropin 92778 UNIT Intramuscular Solution Reconstituted Chorionic Gonadotropin 64002 UNIT Intramuscular Solution Reconstituted 12/09/2019 12:00:00 AM EST 1000 U Intramuscular active Inject 1,00 0 Units into the muscle 3 (three) times a week Inject 1000 units on Thursday, Thursday and Thursday, Max Daily Dose: 1,000 Units [facility] mometasone furoate 1 MG/ML Topical Cream Mometasone Fu roate 0.1 % Mometasone Furoate 0.1 % 11/22/2019 12:00:00 AM EST active 1 application eCW1 ([facility]) cetirizine hydrochloride 10 MG Oral Tablet [Zyrtec] Zy rtec Allergy 10 MG Zyrtec Allergy 10 MG 11/22/2019 12:00:00 AM EST active 1 tablet eCW1 ([facility]) Insurance Providers Payer name Policy type / Coverage type Policy ID Covered green party ID Covered green party's relationship to puente Policy Puente Plan Information [facility] ACTIVE DUTY [id number] [facility] HUMANA - O/P [id number] 18 [id number] [place] O [id number] S [id number] [facility] HUMANA - PHYSICIAN [id number] 18 [id number] [facility] HUMANA - CLINIC [id number] 18 [id number] U [id number] Self [id number] [place] HUMANA - O/P [id number] 18 [id number] SELF PAY EAST [id number] SP [id number] SELF PAY EAST [id number] SP [id number] SELF PAY EAST [id number] SP [id number] U [id number] Self [id number] Problems, Conditions, and Diagnoses Code Display Name Description Problem Type Effective Dates Data Source(s) Q98.4 [id number] Klinefelter syndrome Problem 11/29/2019 12:0 0:00 AM EST eCW1 ([facility]) Q98.4 [id number] Klinefelter syndrome Problem 11/29/2019 12:0 0:00 AM EST eCW1 ([facility]) R21 [id number] Rash Problem 11/22/2019 12:00:00 AM ES T eCW1 ([facility]) Z87.2 [id number] History of cold-induced urticaria Pr oblem 11/22/2019 12:00:00 AM EST eCW1 ([facility]) R21 [id number] Rash Problem 11/22/2019 12:00:00 AM ES T eCW1 ([facility]) Z87.2 [id number] History of cold-induced urticaria Pr oblem 11/22/2019 12:00:00 AM EST eCW1 ([facility]) T37634 Personal history of urinary calculi Personal his tory of urinary calculi Diagnosis 12/20/2020 11:29:00 AM [facility] F11094 Personal history of other venous thrombo sis and embolism Personal history of other venous thrombosis and embolism Diagnosis 12/20/2020 11:29:00 AM [facility] Z7901 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 Diagnosis 12/20/2020 11:29:00 AM [facility] I10 Essential (primary) hypertension Essential (primary) h ypertension Diagnosis 12/20/2020 11:29:00 AM [facility] N132 Hydronephrosis with renal and ureteral c alculous obstruction Hydronephrosis with renal and ureteral calculous obstruction Diagnosis 021 11:29:00 AM [facility] R109 Unspecified abdominal pain Unspecified abdominal pain Diagnosis 12/20/2020 11:29:00 AM [facility] I313 Pericardial effusion (noninflammatory) P ericardial effusion (noninflammatory) Diagnosis 12/19/2020 09:11:00 AM [facility] L089 Local infection of the skin and subcutan eous tissue, unspecified Local infection of the skin and subcutaneous tissue, unspecified Diagnosis 12/01/2020 02:50:00 PM [facility] Z6831 Body mass index [BMI] 31.0-31.9, adult B jm mass index [BMI] 31.0-31.9, adult Diagnosis 12/01/2020 02:50:00 PM [facility] E669 Obesity, unspecified Obesity, unspecified Diagnosis 12/01/2020 02:50:00 PM [facility] R319 Hematuria, unspecified Hematuria, unspecified Diagnosi s 12/01/2020 02:50:00 PM [facility] M545 Low back pain Low back pain Diagnosis 12/01/2020 02:50:00 PM [facility] R55 Syncope and collapse Syncope and collapse Diagnosis 12/01/2020 02:50:00 PM [facility] G8929 Other chronic pain Other chronic pain Diagnosis 09/2021 02:16:00 PM [facility] 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, lumbar region Intervertebral disc disorders with radiculopathy, lumbar region Diagnosis 11/19/2020 02:16:00 PM [facility] N5312 Painful ejaculation Painful ejaculation Diagnosis 0 11/14/2020 01:25:00 PM [facility] R310 Gross hematuria Gross hematuria Diagnosis 11/14/2020 01:2 5:00 PM [facility] R3121 Asymptomatic microscopic hematuria Asymptomatic microscopic hematuria Diagnosis 10/19/2020 10:32:00 AM [facility] Y9289 Other specified places as the place of o ccurrence of the external cause Other specified places as the place of occurrence of the external cause Diagnosis 09/17/2020 08:46:00 AM [facility] U367GRW Overexertion from strenuous movement or load, initial encounter Overexertion from strenuous movement or load, initial encounter Diagnosis 09/17/2020 08:46:00 AM [facility] [id number] Strain of muscle, fascia and tendon of l ower back, initial encounter Strain of muscle, fascia and tendon of lower back, initial encounter Diagnosis 09/17/2020 08:46:00 AM [facility] U29104 Acute embolism and thrombosi s of unspecified deep veins of unspecified lower extremity Acute embolism and thrombosis of unspeci fied deep veins of unspecified lower extremity Diagnosis 09/07/2020 02:36:00 PM EDT [facility] F3289 Other specified depressive episodes Other specif ied depressive episodes Diagnosis 09/07/2020 02:36:00 PM EDT [facility] R22.42 Localized swelling, mass and lump, left lower limb R22.42 - Localized swelling, mass and lump, left lower limb Diagnosis 08/05/2020 11:01:00 AM EDT [facility] R51 Headache R51 - Headache Diagnosis 08/05/2020 11:01:00 A M EDT [facility] R29.6 Repeated falls R29.6 - Repeated falls Diagnosis 07:15:00 PM EDT [facility] M54.2 Cervicalgia M54.2 - Cervicalgia Diagnosis 07/27/2020 07:1 5:00 PM EDT [facility] M79.643 Pain in unspecified hand M79.643 - Pain in unspecified hand Diagnosis 07/27/2020 07:15:00 PM EDT [facility] Z13.9 Encounter for screening, unspecified Z13 .9 - Encounter for screening, unspecified Diagnosis 07/27/2020 07:15:00 PM EDT [facility] F34.81 Disruptive mood dysregulation disorder F 34.81 - Disruptive mood dysregulation disorder Diagnosis 07/27/2020 07:15:00 PM EDT [facility] F43.21 Adjustment disorder with depressed mood F43.21 - Adjustment disorder with depressed mood Diagnosis 06/01/2020 10:05:00 AM EDT [facility] N46.9 Male infertility, unspecified Male infertility, unspec ified Diagnosis 12/09/2019 04:40:00 PM [facility] Surgeries/Procedures Procedure Description Date Indications Data [...] Standard Inst 09/07/2020 12:00:00 AM EDT [facility] ([facility]) Admin Patient Focused Health Risk Assessment Instrument 09/07/2020 12:00:00 AM EDT [facility] ([facility]) THERAPEUTIC PROPHYLACTIC/DX INJECTION SUBQ/IM 12/21/19 20 12:00:00 AM EST [facility] ([facility]) EDUCATION&TRAINING SELF-MGMT NONPHYS 1 PT 12/21/2019 1 2:00:00 AM EST [facility] ([facility]) PROLACTIN PROLACTIN Routine 12/09/2019 4:41 PM EST Infertility male 12/09/2019 09:41:00 PM EST Infertility male [facility] Infertility male BLOOD COUNT HEMATOCRIT HEMATOCRIT Routine 12/09/2019 4:41 PM EST Infertility male 12/09/2019 09:41:00 PM EST Infertility male [facility] Infertility male PROSTATE SPECIFIC ANTIGEN TOTAL PSA Routine 12/09/19 20 4:41 PM EST Infertility male 12/09/2019 09:41:00 PM EST Infertility male [facility] Infertility male MISCELLANEOUS TEST MISCELLANEOUS TEST Routine 12/08/2019 12:0 0 PM EST Infertility male 12/08/2019 05:00:00 PM EST Infertility male [facility] Infertility male Results ID Date Data Source [id number] 12/27/2020 12:42:00 PM EST [facility] Name Value Range Interpretation Code Description Data Marifer rce(s) Supporting Document(s) [facility] SOURCE R [facility] al COLOR yellow NORMAL: Yellow [facility] CLARITY clear NORMAL: Clear [facility] Specific gravity of Urine by Test strip 1.015 1.001 - 1.030 [facility] pH 7 5 - 9 [facility] Glucose [Mass/volume] in Urine by Test strip NORM NORMAL: Negat xiomara [facility] Bilirubin.total [Presence] in Urine by Test strip NEG NORMAL: Negative [facility] Ketones [Presence] in Urine by Test strip NEG NORMAL: Negative [facility] Protein [Mass/volume] in Urine by Test strip NEG NORMAL: Negat [facility] Nitrite [Presence] in Urine by Test strip NEG NORMAL: Negative [facility] BLOOD 150 NORMAL: Negative A [facility] Leukocyte esterase [Presence] in Urine by Test strip NEG DELANO L: Negative [facility] Urobilinogen [Mass/volume] in Urine by Test strip NOR less fidelia n 1.0 mg/dL [facility] MICROSCOPIC See Below [facility] ital WBC 5 - 7 NORMAL: NONE SEEN A [facility] Erythrocytes [#/volume] in Urine by Test strip 40 - 50 NORMAL: NON E SEEN A [facility] EPITHELIAL FEW NORMAL: NONE SEEN [facility] Bacteria [Presence] in Urine sediment by Light microscopy Tr du NORMAL: NONE SEEN [facility] Crystals [type] in Urine sediment by Light microscopy See Below [facility] CALCIUM OX Trace NORMAL: NONE SEEN [facility] ID Date Data Source [id number] 12/20/2020 11:29:00 AM EST [facility] 1 OrderSheet [facility] Emergency Department [address] [place] [address] Phone #: ext- [phone] 12/20/2020 11:28 Patient: [...] IVP 12:30 12/20/2020 12:58 Harry 2 OrderSheet [facility] Emergency Department [address] [place] [address] Phone #: ext- [phone] 12/20/2020 11:28 Patient: [...] rce(s) Supporting Document(s) ID Date Data Source [id number] 12/20/2020 11:29:00 AM EST [facility] 1 Medication Reconciliation Report [facility] Emergency Department [address] [place] [address] Phone #: ext- [phone] 12/20/2020 11:28 Patient: [...] 3x a week 2 Medication Reconciliation Report [facility] Emergency Department [address] [place] [address] Phone #: ext- [phone] 12/20/2020 11:28 Patient: [...] rce(s) Supporting Document(s) ID Date Data Source [id number] 12/20/2020 11:29:00 AM EST [facility] 1 Medication Administration Record [facility] Emergency Department [address] [place] [address] Phone #: ext [phone] 12/20/2020 11:28 Patient: MARVIN LEAHY Sex: M : 1990 Age: 30yWeight: 90.7 kgHeight/Length: 68 inBMI: 30.4ALLERGIES: Seafood Date/Time Medication Administered Medication OrderedStart NS [IV] NS IV : Bolus 1000 mL, then 20611:57 12/20/2020 Dose: IV Fluids mL/Edilberto Garza RN [...] rce(s) Supporting Document(s) ID Date Data Source [id number] 12/20/2020 11:29:00 AM EST [facility] 1 General Instructions [facility] Emergency Department [address] [place] [address] Phone #: ext- [phone] 12/20/2020 11:28 Patient: [...] instructions verbalized by patient. 2 General Instructions [facility] Emergency Department [address] [place] [address] Phone #: ext- [phone] 12/20/2020 11:28 Patient: [...] break up the stone. 3 General Instructions [facility] Emergency Department [address] [place] [address] Phone #: ext- [phone] 12/20/2020 11:28 Patient: [...] barley, and beans. Phytates 4 General Instructions [facility] Emergency Department [address] [place] [address] Phone #: ext- [phone] 12/20/2020 11:28 Patient: [...] new findings that may affect your care.Call [phone] if you have any of these: Weakness, dizziness, or faintingWhen to seek medical adviceCall your healthcare provider right away if any of these occur: Pain that is not controlled by the medicine given 5 General Instructions [facility] Emergency Department [address] [place] [address] Phone #: ext- [phone] 12/20/2020 11:28 Patient: [...] for 8 hours and increasing bladder pressure [id number] [employer]. [address] [place] [address]. All rights reserved. This information is not [...] of cystitisis an infection. 6 General Instructions [facility] Emergency Department [address] [place] [address] Phone #: ext- [phone] 12/20/2020 11:28 Patient: [...] of: An enlarged prostate 7 General Instructions [facility] Emergency Department [address] [place] [address] Phone #: ext- [phone] 12/20/2020 11:28 Patient: [...] the foreskin when cleaning. 8 General Instructions [facility] Emergency Department [address] [place] [address] Phone #: ext- [phone] 12/20/2020 11:28 Patient: MARVIN LEAHY Sex: M [...] any findings that may affect your care.Call [phone] if any of these occur: Trouble breathing [...] to keep medicine down 9 General Instructions [facility] Emergency Department [address] [place] [address] Phone #: rpi- [phone] 12/20/2020 11:28 Patient: MARVIN LEAHY Sex: M : 1990 Age: 30y Weakness or dizziness [phone] [employer] [place], [place] [address]. All rights reserved. This information is not [...] rce(s) Supporting Document(s) ID Date Data Source [id number] 12/20/2020 11:29:00 AM EST [facility] 1 Clinical Report - Nurses [facility] Emergency Department [address] [place] [address] Phone #: ext- [phone] 12/20/2020 11:28 Patient: MARVIN LEAHY Sex: M : 1990 Age: 30yTRIAGEArrived by EMS. Historian: patient. ( pt seen [facility] with dx kidney stone , this [place] ptwas found on floor rocking in pain, EMS started saline lock and gave toradol 15 mg and zofran 4 mg IVwith some relief).Triage time: 11:31 12/20/2020. Acuity: LEVEL 3.Chief Complaint: ABDOMINAL PAIN.11:49 12/20/20.This started today. He has had abdominal pain.Treatment MORTUARY BEAUTICIAN:None.SEPSIS SCREEN: SIRS SCREEN NEGATIVE. SEPSIS SCREEN NEGATIVE. [...] Garza RN 2 Clinical Report - Nurses [facility] Emergency Department [address] [place] [address] Phone #: ext- [phone] 12/20/2020 11:28 Patient: MARVIN LEAHY Sex: M : 1990 Age: 30y Cefdinir Oral 300 mg, 2x a day, started yesterday. --11:44 12/20/20 Harry Garza RN Zofran Oral 4 mg, 3x a day as needed. --11:45 12/20/20 Harry Garza RN.AllergiesSeafood. --11:43 2/11/21 Harry Garza RN.ADDITIONAL SURGERIES:None. --11:45 12/20/20 Harry Garza RN.Gidfclo22:49 12/20/20.SOCIAL HX: Never smoker. Alcohol use. (rarely). [...] peptic ulcer disease. --11:52 12/20/20 Harry Garza RN.Dqvzexflkrvrf54:49 12/20/20. Identification and allergy band on patient. To room. --11:49 12/20/20 Harry Garza RN.PHYSICAL ASSESSMENT 3 Clinical Report - Nurses [facility] Emergency Department [address] [place] [address] Phone #: ext- [phone] 12/20/2020 11:28 Patient: MARVIN LEAHY Sex: M [...] 12/20/20. Cardiac rhythm: normal sinus rhythm; (1130). 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 Emergency Department [address] [place] [address] Phone #: ext- [phone] 12/20/2020 11:28 Patient: MARVIN LEAHY Sex: M [...] Patient verbalized understanding. Written instructions provided in [place]. The patient was discharged by the physician assistant foreman. He was discharged home. He left ambulatory and via private vehicle. Training Administrator driving. --15:02 12/20/20 Harry Garza RN 14:45 12/20/20. BP: 121/52. MAP: 75. HR: 78. RR: 18. O2 saturation: 98%. Temp: 98.1 F (temporal). Pain level now: 02/16. --15:02 12/20/20 Harry Garza RN.Locked/Released at 09/2021 16:56 by Harry Garza RN Name Value Range Interpretation Code Description Data Marifer rce(s) Supporting Document(s) ID Date Data Source [id number] 12/20/2020 11:29:00 AM [facility] 1 Clinical Report - Physicians/Mid Levels [facility] Emergency Department [address] [place] [address] Phone #: ext- [phone] 12/20/2020 11:28 Patient: [...] dx kidney stone , this morning [place] pt was found on floor rocking in [...] yesterday. 2 Clinical Report - Physicians/Mid Levels [facility] Emergency Department [address] [place] [address] Phone #: ext- [phone] 12/20/2020 11:28 - Patient: MARVIN LEHAY Sex: M : 1990 Age: 30y Flomax [...] Tests: 3 Clinical Report - Physicians/Mid Levels [facility] Emergency Department [address] [place] [address] Phone #: ext- [phone] 12/20/2020 11:28 Patient: MARVIN LEAHY Sex: M : 1990 Age: 30yCBC w Diff: (EDRRICK: 12/20/2020 12:50) ( MsgRcvd 12/20/2020 13:21) Final [...] 3.2) 4 Clinical Report - Physicians/Mid Levels [facility] Emergency Department [address] [place] [address] Phone #: ext- [phone] 12/20/2020 11:28 Patient: [...] mL/min Normal Lipase: (DERRICK: 12/20/2020 12:50) ( [facility] 13[facility]22[facility] Final results Test Result Flag Units (Reference) LIPASE 29 U/L (13 - 60) Urinalysis: (DERRICK: 12/20/2020 12:50) ( [facility] 13:40) Final results Test Result Flag [...] complaints. 5 Clinical Report - Physicians/Mid Levels [facility] Emergency Department [address] [place] [address] Phone #: ext- [phone] 12/20/2020 11:28 Patient: [...] no 6 Clinical Report - Physicians/Mid Levels [facility] Emergency Department [address] [place] [address] Phone #: ext- [phone] 12/20/2020 11:28 Patient: [...] arise. 7 Clinical Report - Physicians/Mid Levels [facility] Emergency Department [address] [place] [address] Phone #: ext- [phone] 12/20/2020 11:28 Patient: MARVIN ELAHY Sex: M : 1990 Age: 30y SPECIFICALLY, [...] e(s) Supporting Document(s) ID Date Data Source [id number] 12/25/2020 06:41:00 AM [facility] Name Value Range Interpretation Code Description Data [facility](s) Supporting Document(s) CULTURE URINE [facility] spital _CULTURE URINE_$$[id number]$$[id number]$$[id number]$$[id number]$$[id number]$$[id number]$$004025$$523143$$238869$$ 520893$$213910$$989028$$196572$$817785$$311294$$832082$$342309$$910799$$448537$$ 158124$$366109$$181649$$560066$$134959$$291440$$[id number]$$[id number] -- Continued on next page --Patient: TOSIN WONG N Order: [id number] Page 2Culture: CULTURE URINE Status: Final ==== -- Continued on next page --Patient: TOSIN WONG N Order: [id number] Page 2Culture: CULTURE URINE Status: Prelim =====$$[id number]$$[id number] DATE/TIME: 12/24/2020 16:06Culture: CULTURE URINE Status: FinalUrine Culture,Comprehensive: P1No growth in 36 - 48 hours. Previous result entered on 12/23/2020 03:00 ET No growth after 18-24 hours.P1 Test performed by: [facility] #: [id number] [address] [place] [address] [id number] [facility] [address]Medical Director : Steve Prater MD NPI #:Lab Di fiorella : 12/24/20.0618.XMT.SENT REF 12/25/20.0641.XMT.SENT REF ID Date Data Source [id number] 12/20/2020 01:39:00 PM EST [facility] Name Value Range Interpretation Code Description Data Marifer rce(s) Supporting Document(s) UR[facility]YSIS [facility] URINALYSIS SOURCE R [facility] COLOR yellow NORMAL: Yellow [facility] CLARITY clear NORMAL: Clear [facility] Specific gravity of Urine by Test strip 1.015 1.001 - 1.030 [facility] pH 8 5 - 9 [facility] Glucose [Mass/volume] in Urine by Test strip NORM NORMAL: Negat [facility] Bilirubin.total [Presence] in Urine by Test strip NEG NORMAL: Negative [facility] Ketones [Presence] in Urine by Test strip NEG NORMAL: Negative [facility] Protein [Mass/volume] in Urine by Test strip NEG NORMAL: Negat [facility] Nitrite [Presence] in Urine by Test strip NEG NORMAL: Negative [facility] BLOOD 250 NORMAL: Negative A [facility] Leukocyte esterase [Presence] in Urine by Test strip NEG DELANO L: Negative [facility] Urobilinogen [Mass/volume] in Urine by Test strip NOR less fidelia n 1.0 mg/dL [facility] MICROSCOPIC See Below [facility] ital WBC 1 - 3 NORMAL: NONE SEEN [facility] Erythrocytes [#/volume] in Urine by Test strip 10 - 15 NORMAL: NON E SEEN A [facility] EPITHELIAL FEW NORMAL: NONE SEEN [facility] Bacteria [Presence] in Urine sediment by Light microscopy Tr du NORMAL: NONE SEEN [facility] Crystals [type] in Urine sediment by Light microscopy See Below [facility] CALCIUM OX 2+ NORMAL: NONE SEEN A [facility] ID Date Data Source [id number] 12/20/2020 01:39:00 PM EST [facility] Name Value Range Interpretation Code Description Data Marifer rce(s) Supporting Document(s) COMPREHENSIVE METABOLIC PANEL [facility] COMPREHENSIVE METABOLIC PANEL Sodium [Moles/volume] in Serum or Plasma 139 mEq/L 134 - 153 [facility] Potassium [Moles/volume] in Serum or Plasma 3.8 mEq/L 3.6 - 5.0 [facility] Chloride [Moles/volume] in Serum or Plasma 102 mEq/L 98 - 107 [facility] Carbon dioxide, total [Moles/volume] in Serum or Plasma 28 MEQ/L 22 - 30 [facility] [facility] Glucose [Mass/volume] in Serum or Plasma 84 MG/DL 70 - 99 [facility] BUN 5 MG/DL 7 - 21 L [facility] al Creatinine [Mass/volume] in Serum or Plasma 1.0 MG/DL 0.7 - 1.5 [facility] BUN/CREAT 5 8 - 27 L [facility] al Protein [Mass/volume] in Serum or Plasma 7.4 G/DL 6.3 - 8.2 [facility] Albumin [Mass/volume] in Serum or Plasma 4.4 G/DL 3.9 - 5.0 [facility] Globulin [Mass/volume] in Serum by calculation 3.0 GM/DL 2.4 - 3.2 [facility] A/G RATIO 1.5 0.8 - 2.0 [facility] Calcium [Mass/volume] in Serum or Plasma 9.7 MG/DL 8.4 - 10.2 [facility] Bilirubin.total [Mass/volume] in Serum or Plasma <0.7 MG/DL 0.2 - 1.3 [facility] Alkaline phosphatase [Enzymatic activity/volume] in Serum or Plasma 70 U/L 38 - 126 [facility] Aspartate aminotransferase [Enzymatic activity/volume] in Serum or Plasma 27 U/L 5 - 40 [facility] Alanine aminotransferase [Enzymatic activity/volume] in Seru m or Plasma 32 U/L 7 - 56 [facility] Anion gap 3 in Serum or Plasma 9.0 mmol/L 8.0 - 16.0 [facility] AGE 30 yrs [facility] al NON-AA GFR >60 mL/min [facility] ital AFR AMER GFR >60 mL/min [facility] Ho spital Male GFR In terprentation [...] >32 mL/min Normal ID Date Data Source [id number] 12/20/2020 01:22:00 PM EST [facility] Name Value Range Interpretation Code Description Data Marifer rce(s) Supporting Document(s) Lipase [Enzymatic activity/volume] in Serum or Plasma 29 U/L 13 - 60 [facility] ID Date Data Source [id number] 12/20/2020 01:18:00 PM EST [facility] Name Value Range Interpretation Code Description Data Marifer rce(s) Supporting Document(s) CBC W/AUTOMATED DIFF [facility] COMPLETE BLOOD COUNT Leukocytes [#/volume] in Blood by Automated count 5.5 10^3/uL 4.2 - 1 1.0 [facility] Erythrocytes [#/volume] in Blood by Automated count 4.70 10^6/uL 4. 50 - 6.30 [facility] Hemoglobin [Mass/volume] in Blood 13.9 g/dL 14.0 - 16.0 L [facility] Hematocrit [Volume Fraction] of Blood by Automated count 42.4 % 4 1.0 - 51.0 [facility] Erythrocyte mean corpuscular volume [Entitic volume] by Auto mated count 90.2 fL 80.0 - 94.0 [facility] Erythrocyte mean corpuscular hemoglobin [Entitic mass] by Automated count 29.6 pg 27.0 - 34.0 [facility] Erythrocyte mean corpuscular hemoglobin concentration [Mass/volume] by Automated count 32.8 g/dL 31.0 - 36.0 [facility] Erythrocyte distribution width [Ratio] by Automated count 12.4 % 11.5 - 14.8 [facility] Platelets [#/volume] in Blood by Automated count 192 10^3/uL 150 - 45 0 [facility] Platelet mean volume [Entitic volume] in Blood by Automated count 11.0 fL 7.4 - 10.4 H [facility] Neutrophils/100 leukocytes in Blood by Automated count 48.0 % 37. 0 - 80.0 [facility] Lymphocytes/100 leukocytes in Blood by Manual count 40.8 % 25.0 - 40.0 H [facility] Monocytes/100 leukocytes in Blood by Automated count 8.4 % 3.0 - 8.0 H [facility] Eosinophils/100 leukocytes in Blood by Automated count 2.2 % 0.0 - 7.0 [facility] Basophils/100 leukocytes in Blood by Automated count 0.4 % 0.0 - 2.0 [facility] %IG 0.2 % 0.0 - 0.0 H [facility]osp al %NRBC 0.0 % 0.0 - 0.0 [facility] al Neutrophils [#/volume] in Blood by Automated count 2.62 10^3/uL 2.00 - 6.90 [facility] Lymphocytes [#/volume] in Blood by Automated count 2.23 10^3/uL 0.60 - 3.40 [facility] Monocytes [#/volume] in Blood by Automated count 0.46 10^3/uL 0.00 - 0.90 [facility] Eosinophils [#/volume] in Blood by Automated count 0.12 10^3/uL 0.00 - 0.70 [facility] Basophils [#/volume] in Blood by Automated count 0.02 10^3/uL 0.00 - 0.20 [facility] #IG 0.01 10^3/uL 0.00 - 0.10 [facility] H ospital #NRBC 0.00 10^3/uL 0.00 - 0.00 [facility] ospital MANUAL DIFF SEE BELOW [facility] Segmented neutrophils/100 leukocytes in Blood by Manual count 71 % 37 - 80 [facility] %LYMPH 24 % 25 - 40 L [facility] al %MONO 3 % 3 - 8 [facility] %EOS 2 % 0 - 7 [facility] RBC MORPH SEE BELOW [facility] Anisocytosis [Presence] in Blood by Light microscopy 1+ DELANO L: NONE SEEN A [facility] { SICKLE CELL (NORMAL: NONE SEEN ) Platelet adequacy [Presence] in Blood by Light microscopy NORMAL NORMAL: NORMAL [facility] COMMENT: ID Date Data Source [id number] 12/19/2020 02:54:00 PM EST [facility] [address] [place] [address] PHONE: [phone] FAX: [phone] Name .................. : LIDIAINDIGO ADDISONEW Cristino Acct Number.................. : [id number] ROOM. ................. : TR-02 Number ................... : [id number] Stay type ............. : E/R Discharge Date......... ... : Admit Date ......... : 12/19/20 Admit Phys .................... : CHERYL OLVERA Date of ....... : 1990 Family Phys ................... : NON STAFF Phone .................. : [phone] Age ................................ : 30 Film# .................. .:[id number] Sex ................................. : M Unsigned transcriptions are preliminary reports and do not represent a medical or legal document CT ABD & PELV W/O ORAL W/[place] [id number] COMPLETE:12/19/20 11:02 [facility] 3982 Reason(s): sudden left [...] 13:05, Dictation Date: Page 1 of 2 [place] [address] PHONE: [phone] FAX: [phone] Name .................. : TOSIN ADDISONEW Cristino Acct Number.................. : [id number] ROOM. ................. : MR Number ................... : [id number] Stay type ............. : E/R Discharge Date......... ... : Admit Date ......... : 12/19/20 Admit Phys .................... : CHERYL OLVERA Date of ....... : 1990 Family Phys ................... : NON STAFF Phone .................. : [phone] Age ................................ : 30 Film# .................. .:[id number] Sex ................................. : M Unsigned transcriptions are preliminary reports and do not represent a medical or legal document CT ABD & PELV W/[place] ORAL W/[place] [id number] COMPLETE:12/19/20 11:02 [facility] 3982 Reason(s): sudden left flank pain Copy for: 010 EMERGENCY SRV Copy for: EMERGENCY DEPT via modem Copy for: 710 MED REC Page 2 of 2 Name Value Range Interpretation Code Description Data Marifer rce(s) Supporting Document(s) ID Date Data Source [id number] 12/19/2020 09:11:00 AM EST [facility] 1 OrderSheet [facility] Emergency Department [address] [place] [address] Phone #: ext- [phone] 12/19/2020 09:10 Patient: MARVIN LEAHY Sex: M : 1990 Age: 30yWEIGHT:90.7 kg (S) HEIGHT:68 inches (S) BMI:30.4ALLERGIES: SeafoodCHIEF COMPLAINT: flank painDIAGNOSIS: Ureteric stone, Renal colicLAB ORDERSOrder Description Priority Entered Acknowledged InitialedCBC w Diff STAT 09:41 12/19/2020 09:51 Letty, Turrin, Bratn Aster R.N. M.D.;CMP STAT 09:41 12/19/2020 09:51 [...] 09:52 Letty,X1 dose: 15 mg Turrin, Brant Astre R.N.(NOW x1) M.D.;Zofran 4 mg IVP X 1 09:41 12/19/2020 09:51 Letty, 2 OrderSheet [facility] Emergency Department [address] [place] [address] Phone #: ext- [phone] 12/19/2020 09:10 Patient: [...] rce(s) Supporting Document(s) ID Date Data Source [id number] 12/19/2020 09:11:00 AM [facility] 1 Medication Reconciliation Report [facility] Emergency Department [address] [place] [address] Phone #: ext- [phone] 12/19/2020 09:10 Patient: [...] the Emergency Department: 2 Medication Reconciliation Report [facility] Emergency Department [address] [place] [address] Phone #: ext- [phone] 12/19/2020 09:10 Patient: [...] -- Dispense 12 tablet. Refills: 0. Substitution permitted.[address] ; [place] [address]. .Flomax 0.4 mg capsule Take 1 capsule once a day for 7 days -- Dispense 7 capsule. Refills: 0.Substitution permitted.[address] ; [place] [address]. .cefdinir 300 mg capsule Take 1 capsule twice a day for 7 days -- Dispense 14 capsule. Refills: 0.Substitution permitted.[address] ; [place] [address]. .Zofran 4 mg tablet Take 1 tablet three times a day as needed for 4 days -- Dispense 12 tablet. Refills: 0.Substitution permitted.[address] ; [place] [address]. . -- Brant Luna M.D. Name Value Range Interpretation Code Description Data Marifer rce(s) Supporting Document(s) ID Date Data Source [id number] 12/19/2020 09:11:00 AM EST [facility] 1 Medication Administration Record [facility] Emergency Department [address] [place] [address] Phone #: [phone]- [phone] 12/19/2020 09:10 Patient: MARVIN LEAHY Sex: M : 1990 Age: 30yWeight: 90.7 kgHeight/Length: 68 inBMI: 30.4ALLERGIES: Seafood Date/Time Medication Administered Medication OrderedGiven TORADOL [IVP] (KETOROLAC Toradol 15 mg IVP X1 dose: 15 mg09:47 12/19/2020 TROMETHAMINE) (NOW x1)Aster Sanez RYangNYang Dose: 15 mg IVP Site: #1 [...] NS IV : Bolus 250 mL, then 58349:05 12/19/2020 Dose: IV Fluids mL/hrAster Saenz R.NYang [...] rce(s) Supporting Document(s) ID Date Data Source [id number] 12/19/2020 09:11:00 AM EST [facility] 1 General Instructions [facility] Emergency Department [address] [place] [address] Phone #: ext- [phone] 12/19/2020 09:10 Patient: [...] 0. Substitution permi tted. 2 General Instructions [facility] Emergency Department [address] [place] [address] Phone #: ext- [phone] 12/19/2020 09:10 Patient: MARVIN LEAHY Sex: M : 1990 Age: 30yPharmacy - [facility] [phone] ; [place] [address]. .Flomax 0.4 mg capsule Take 1 capsule once a day for 7 days -- Dispense 7 capsule. Refills: 0.Substitution permitted.[facility] [phone] ; [place] [address]. .cefdinir 300 mg capsule Take 1 capsule twice a day for 7 days -- Dispense 14 capsule. Refills: 0.Substitution permitted.[facility] ; [place] [address]. .Zofran 4 mg tablet Take 1 tablet three times a day as needed for 4 days -- Dispense 12 tablet. Refills: 0.Substitution permitted.[facility] [phone] ; [place] [address]. .Follow-up:Return to the emergency department as needed. Follow up with a welding machine operator gas and urologist in three dayseven if well. [...] INFORMATIONKidney Stone with Pain 3 General Instructions [facility] Emergency Department [address] [place] [address] Phone #: ext- [phone] 12/19/2020 09:10 Patient: MARVIN LEAHY Sex: M [...] Various types of direct surgery through the [facility] 4 General Instructions [facility] Emergency Department [address] [place] [address] Phone #: ext- [phone] 12/19/2020 0 9:10 [...] kidney stones. Eat a 5 General Instructions [facility] Emergency Department [address] [place] [address] Phone #: ext- [phone] 12/19/2020 09:10 [id number] Sex: M : 1990 Age: 30y normal [...] new findings that may affect your care.Call [phone] if you have any of these: Weakness, [...] lots of blood clots 6 General Instructions [facility] Emergency Department [address] [place] [address] Phone #: ext- [phone] 12/19/2020 09:10 Patient: MARVIN LEAHY Sex: M : 1990 Age: 30y Foul-smelling or cloudy urine Unable to pass urine for 8 hours and increasing bladder pressure [phone] [place] [address]. All rights reserved. This information is not [...] rce(s) Supporting Document(s) ID Date Data Source [id number] 12/19/2020 09:11:00 AM EST [facility] 1 Clinical Report - Nurses [facility] Emergency Department [address] [place] [address] Phone #: ext- [phone] 12/19/2020 09:10 Patient: MARVIN LEAHY Sex: M : 1990 Age: 30yTRIAGEArrived by EMS. Historian: patient.Chief Complaint: (left flank/ LLQ/ left groin pain).Onset. (0200). No fever, testicular pain or inguinal swelling. 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 Medications given- ondansetron (fentanyl 50 [...] Saenz R.N. 2 Clinical Report - Nurses [facility] Emergency Department [address] [place] [address] Phone #: ext- [phone] 12/19/2020 09:10 Patient: MARVIN LEAHY Sex: M [...] placed in 3 Clinical Report - Nurses [facility] Emergency Department [address] [place] [address] Phone #: ext- [phone] 12/19/2020 09:10 Patient: MARVIN LEAHY Sex: M : 1990 Age: 30ylowest position. Brakes of bed on. Patient ready for evaluation. --09:17 12/19/20 Aster Saenz R.N.09:30 12/19/20. BP: 129/95. MAP: 106. HR: 69. RR: 16. O2 saturation: 96%. --09:34 12/19/20 [facility] Fxnt323:47 12/19/2020 Toradol (Ketorolac Tromethamine) IVP 15 mg [...] 83. HR: 82. RR: 14. --09:59 12/19/20 [facility] Zsmn665:05 12/19/2020 Started bag #1 250 mL IV [...] by stretcher with tech. --10:10 12/19/20 Aster Sanez R.N.10:20 12/19/20. Patient returned from CT by stretcher with pharmacy technician infusion. --10:50 12/19/20 Aster Saenz R.N.11:00 12/19/20. BP: 116/50. MAP: 72. HR: 96. RR: 14. O2 saturation: 100%. --11:00 12/19/20 [facility] [employer] [facility]United [facility] Nebb127:28 12/19/2020 Flomax (Tamsulosin HCl) PO Capsules 0.4 [...] medication administration. 4 Clinical Report - Nurses [facility] [place] [address] Phone #: ext- [phone] 12/19/2020 09:10 Patient: MARVIN LEAHY Sex: M : 1990 Age: 30y Information reviewed with patient. Verbalizes understanding. --11:28 12/19/20 Aster Saenz R.N. 11:58 12/19/20. BP: 106/50. MAP: 68. HR: 72. RR: 16. O2 saturation: 99%. --11:59 12/19/20 [facility] Tech1 12:58 12/19/20. BP: 110/94. MAP: 99. HR: 82. RR: 16. O2 saturation: 100%. --12:58 12/19/20 Won developmental education instructor VerónicaUnited [facility] Tech1 12:00 12/19/2020 CEFTRIAXONE (1GM/50ML) IVPB via [...] Patient verbalized understanding. Written instructions provided in [place]. --13:41 12/19/20 Aster Saenz R.N.Locked/Released at 12/19/2020 13:41 by Aster Saenz R.N. Name Value Range Interpretation Code Description Data Marifer rce(s) Supporting Document(s) ID Date Data Source [id number] 12/19/2020 09:11:00 AM [facility] 1 Clinical Report - Physicians/Mid Levels [facility] Emergency Department [address] [place] [address] Phone #: ext- [phone] 12/19/2020 09:10 Patient: [...] received Fentanyl 50 mcg IV per EMS MORTUARY BEAUTICIAN). No recent travel. Similar symptoms previously. None. [...] day. 2 Clinical Report - Physicians/Mid Levels [facility] Emergency Department [address] [place] [address] Phone #: ext- [phone] 12/19/2020 09:10 Patient: [...] results 3 Clinical Report - Physicians/Mid Levels [facility] Emergency Department [address] [place] [address] Phone #: ext- [phone] 12/19/2020 09:10 Patient: MARVIN LEAHY Sex: M [...] Male GFR Interprentation 20-49 yrs >60 mL/min Mpsdyb86-01 yrs >56 mL/min Normal 60-69 yrs >49 mL/min Normal 70-79yrs>42 mL/min Normal 80 and above >35 mL/min Normal Female GFRInterpretation 20-39 yrs >60 mL/min Normal 40-49 yrs >58 mL/min 4 Clinical Report - Physicians/Mid Levels [facility] Emergency Department [address] [place] [address] Phone #: ext- [phone] 12/19/2020 09:10 Patient: MARVIN LEAHY Sex: M : 1990 Age: 30y Normal 50-59 yrs >51 mL/min Normal 60-69 yrs >45 mL/min Normal 70-79 yrs >39 mL/min Normal 80 and above >32 mL/min Normal Lipase: (DERRICK: 12/19/2020 09:50) ( [facility] 10:18[facility] Final results Test Result Flag Units (Reference) LIPASE 25 U/L (13 - 60) Urinalysis: (DERRICK: 12/19/2020 09:00) ( [facility] 12/19/[facility] 10:20) Final results Test Result Flag [...] NONE Lactic Acid: (DERRICK: 12/19/2020 09:50) ( [facility] 12/19/2020 10:05) Final results Test Result Flag Units (Reference) LACTIC ACID 1.4 MMOL/L (0.2 - 2.2) CT ABD PEL W/O Oral W/O IV Contrast: (DERRICK: 12/19/2020 09:41) [facility] 11[facility]02[facility] In Progress CT ABD Reason(s): [...] information displayed on this report is compiled fromCleanBeeBaby submissions to the Department, and accurately reflects the information as submitted by thePanoramic [employer]. 5 Clinical Report - Physicians/Mid Levels [facility] Emergency Department [address] [place] [address] Phone #: [phone] 12/19/2020 09:10 Patient: MARVIN LEAHY Sex: M : 1990 Age: 30y This report was requested by: Brant Luna Reference #: [id number] My Prescriptions Patient Name: Marvin LeahyBirth Date: 1990 Address: [address] [place], [place] [address]Sex: Male Rx Written Rx Dispensed Drug Quantity Days Supply Prescriber Name Payment Method Dispenser 09/17/2020 09/17/2020 hydrocodone-acetaminophen 5-325 mg tablet 12 3 Brant Luna MD [facility] [phone] * - Drugs marked with an [...] HEART 6 Clinical Report - Physicians/Mid Levels [facility] Emergency Department [address] [place] [address] Phone #: ext- [phone] 12/19/2020 09:10 Patient: [...] -- Dispense 12 tablet. Refills: 0. Substitution permitted.[address] ; [place] [address]. .Flomax 0.4 mg capsule Take 1 capsule once a day for 7 days -- Dispense 7 capsule. Refills: 0.Substitution permitted.[address] ; [place] [address]. .cefdinir 300 mg capsule Take 1 capsule twice a day for 7 days -- Dispense 14 capsule. Refills: 0.Substitution permitted.[address] ; [place] [address]. .Zofran 4 mg tablet Take 1 tablet three times a day as needed for 4 days -- Dispense 12 tablet. Refills: 0.Substitution permitted.[address] ; [place] [address]. . 7 Clinical Report - Physicians/Mid Levels [facility] Emergency Department [address] [place] [address] Phone #: ext- [phone] 12/19/2020 09:10 Patient: MARVIN LEAHY Sex: M : 1990 Age: 30y Follow-up: Return to the emergency department as needed. Follow up with a welding machine operator gas and urologist in three days even if [...] rce(s) Supporting Document(s) ID Date Data Source [id number] 12/19/2020 11:16:00 AM EST [facility] Name Value Range Interpretation Code Description Data Marifer rce(s) Supporting Document(s) CBC W/AUTOMATED DIFF [facility] COMPLETE BLOOD COUNT Leukocytes [#/volume] in Blood by Automated count 5.6 10^3/uL 4.2 - 1 1.0 [facility] Erythrocytes [#/volume] in Blood by Automated count 4.55 10^6/uL 4. 50 - 6.30 [facility] Hemoglobin [Mass/volume] in Blood 13.6 g/dL 14.0 - 16.0 L [facility] Hematocrit [Volume Fraction] of Blood by Automated count 41.3 % 4 1.0 - 51.0 [facility] Erythrocyte mean corpuscular volume [Entitic volume] by Auto mated count 90.8 fL 80.0 - 94.0 [facility] Erythrocyte mean corpuscular hemoglobin [Entitic mass] by Automated count 29.9 pg 27.0 - 34.0 [facility] Erythrocyte mean corpuscular hemoglobin concentration [Mass/volume] by Automated count 32.9 g/dL 31.0 - 36.0 [facility] Erythrocyte distribution width [Ratio] by Automated count 12.7 % 11.5 - 14.8 [facility] Platelets [#/volume] in Blood by Automated count 175 10^3/uL 150 - 45 0 [facility] Platelet mean volume [Entitic volume] in Blood by Automated count 11.4 fL 7.4 - 10.4 H [facility] Neutrophils/100 leukocytes in Blood by Automated count 53.6 % 37. 0 - 80.0 [facility] Lymphocytes/100 leukocytes in Blood by Manual count 32.4 % 25.0 - 40.0 [facility] Monocytes/100 leukocytes in Blood by Automated count 11.8 % 3.0 - 8.0 H [facility] Eosinophils/100 leukocytes in Blood by Automated count 1.4 % 0.0 - 7.0 [facility] Basophils/100 leukocytes in Blood by Automated count 0.4 % 0.0 - 2.0 [facility] %IG 0.4 % 0.0 - 0.0 [facility] %NRBC 0.0 % 0.0 - 0.0 [facility] al Neutrophils [#/volume] in Blood by Automated count 3.00 10^3/uL 2.00 - 6.90 [facility] Lymphocytes [#/volume] in Blood by Automated count 1.81 10^3/uL 0.60 - 3.40 [facility] Monocytes [#/volume] in Blood by Automated count 0.66 10^3/uL 0.00 - 0.90 [facility] Eosinophils [#/volume] in Blood by Automated count 0.08 10^3/uL 0.00 - 0.70 [facility] Facility Basophils [#/volume] in Blood by Automated count 0.02 10^3/uL 0.00 - 0.20 [facility] #IG 0.02 10^3/uL 0.00 - 0.10 [facility] ospital #NRBC 0.00 10^3/uL 0.00 - 0.00 [facility] ospital MANUAL DIFF NOT INDICATED [facility] RBC MORPH NOT INDICATED [facility] spital ID Date Data Source [id number] 12/19/2020 10:18:00 AM [facility] Name Value Range Interpretation Code Description Data Marifer rce(s) Supporting Document(s) Lipase [Enzymatic activity/volume] in Serum or Plasma 25 U/L 13 - 60 [facility] ID Date Data Source [id number] 12/19/2020 10:18:00 AM [facility] Name Value Range Interpretation Code Description Data Marifer rce(s) Supporting Document(s) COMPREHENSIVE METABOLIC PANEL [facility] COMPREHENSIVE METABOLIC PANEL Sodium [Moles/volume] in Serum or Plasma 138 mEq/L 134 - 153 [facility] Potassium [Moles/volume] in Serum or Plasma 3.8 mEq/L 3.6 - 5.0 [facility] Chloride [Moles/volume] in Serum or Plasma 103 mEq/L 98 - 107 [facility] Carbon dioxide, total [Moles/volume] in Serum or Plasma 25 MEQ/L 22 - 30 [facility] Glucose [Mass/volume] in Serum or Plasma 98 MG/DL 70 - 99 [facility] BUN 8 MG/DL 7 - 21 [facility] Creatinine [Mass/volume] in Serum or Plasma 0.9 MG/DL 0.7 - 1.5 [facility] BUN/CREAT 9 8 - 27 [facility] Protein [Mass/volume] in Serum or Plasma 6.8 G/DL 6.3 - 8.2 [facility] Albumin [Mass/volume] in Serum or Plasma 4.3 G/DL 3.9 - 5.0 [facility] Globulin [Mass/volume] in Serum by calculation 2.5 GM/DL 2.4 - 3.2 [facility] A/G RATIO 1.7 0.8 - 2.0 [facility] Calcium [Mass/volume] in Serum or Plasma 9.6 MG/DL 8.4 - 10.2 [facility] Bilirubin.total [Mass/volume] in Serum or Plasma <0.7 MG/DL 0.2 - 1.3 [facility] Alkaline phosphatase [Enzymatic activity/volume] in Serum or Plasma 67 U/L 38 - 126 [facility] Aspartate aminotransferase [Enzymatic activity/volume] in Serum or Plasma 27 U/L 5 - 40 [facility] Alanine aminotransferase [Enzymatic activity/volume] in Seru m or Plasma 29 U/L 7 - 56 [facility] Anion gap 3 in Serum or Plasma 10.0 mmol/L 8.0 - 16.0 [facility]GE 30 [facility] GFR >60 mL/min [facility] ital AFR AMER GFR >60 mL/min [facility] Male GFR In terprentation [...] >32 mL/min Normal ID Date Data Source [id number] 12/19/2020 10:05:00 AM [facility] Name Value Range Interpretation Code Description Data Marifer rce(s) Supporting Document(s) Lactate [Moles/volume] in Serum or Plasma 1.4 MMOL/L 0.2 - 2.2 [facility] ID Date Data Source [id number] 12/19/2020 10:20:00 AM [facility] Name Value Range Interpretation Code Description Data Marifer rce(s) Supporting Document(s) UR[facility]ALYSIS [facility] SOURCE R [facility] COLOR brown NORMAL: Yellow [facility]sp[facility] CLARITY turbid NORMAL: Clear [facility] spital Specific gravity of Urine by Test strip 1.015 1.001 - 1.030 [facility] pH 8 5 - 9 [facility] al Glucose [Mass/volume] in Urine by Test strip NORM NORMAL: Negat xiomara [facility] Bilirubin.total [Presence] in Urine by Test strip NEG NORMAL: Negative [facility] Ketones [Presence] in Urine by Test strip NEG NORMAL: Negative [facility] Protein [Mass/volume] in Urine by Test strip 100 NORMAL: Negat xiomara A [facility] Nitrite [Presence] in Urine by Test strip NEG NORMAL: Negative [facility] BLOOD 250 NORMAL: Negative [facility] Leukocyte esterase [Presence] in Urine by Test strip 25 DELANO L: Negative [facility] Urobilinogen [Mass/volume] in Urine by Test strip NOR less fidelia n 1.0 mg/dL [facility] MICROSCOPIC See Below [facility] ital Erythrocytes [#/volume] in Urine by Test strip TNTC NORMAL: NON E SEEN A [facility] EPITHELIAL FEW NORMAL: NONE SEEN [facility] Bacteria [Presence] in Urine sediment by Light microscopy Tr du NORMAL: NONE SEEN [facility] ID Date Data Source [id number] 12/03/2020 01:03:00 AM EST [facility] [address] [place] [address] CONSULTATIONNAME: TOSIN Rivera ROOM#: 101-1DATE OF : 1990 MR#: [id number] PHYS: POP Paulino DATE: 12/01/20DATE OF CONSULTATION: 12/02/20CHIEF COMPLAINT: This 30-year-old white male presented with episode of syncope.HISTORY OF PRESENT ILLNESS:This patient went to [place] to get food and after he got [...] Clear with no rales or rhonchi. [address] [place] [address] CONSULTATIONNAME: TOSIN Rivera [facility] 1990 [facility] [id number] PHYS: POP Tran DATE: 12/01/20ABDOMEN: Soft and [...] rce(s) Supporting Document(s) ID Date Data Source [id number] 12/12/2020 12:00:00 AM EST [facility] Jairon Christiansen MD Patient Name: MARVIN LEAHY[address] [facility] Date of : 1990[place] [address]- Date of Exam: [facility]#: Fax: [phone] EXAM: CT THORAX WITH CONTRASTCLINICAL INFORMATION: Hilar lymphadenopathy.COMPARISON: CT abdomen and pelvis [facility] 08/15/2020.Low dose [address] scanning of the chest was obtained using 3 mmincrements after the administration of intravenous contrast andreconstructed in both coronal and sagittal scan planes. 75 cc of [id number] was administered intravenously.The lungs are free of [...] and no suspicious lung nodule.Accredited by the [employer] in [place].Olegario Mack, ROSY/Maryam you for referring MARVIN LEAHY to our office. Electronically Signed - OLEGARIO MACK MD 12/14/20 18:04 Name Value Range Interpretation Code Description Data Marifer rce(s) Supporting Document(s) ID Date Data Source [id number] 12/05/2020 09:23:00 AM EST [facility] [address] [place] [address] PHONE: [phone] FAX: [phone] Name .................. : TOSIN Rivera Acct Number.................. : [id number] ROOM. ................. : 101-1 MR Number ................... : [id number] Stay type ............. : O/P Discharge Date......... ... : 12/03/20 Admit Date ......... : 12/01/20 Admit Phys .................... : AMARJIT Date of ....... : 1990 Family Phys ................... : NON STAFF Phone .................. : [phone] Age ................................ : 30 Film# .................. .:[id number] Sex ................................. : M Unsigned transcriptions are preliminary reports and do not represent a medical or legal document CAROTID [id number] COMPLETE:12/01/20 08:09 SMW 2817 (REASON FOR PROCEDURE [...] rce(s) Supporting Document(s) ID Date Data Source [id number] 12/03/2020 12:19:00 [place] [address] PHONE: [phone] FAX: [phone] Name .................. : TOSIN WONG Cristino Acct Number.................. : [id number] ROOM. ................. : TR-08 MR Number ................... : [id number] Stay type ............. : E/R Discharge Date......... ... : Admit Date ......... : 12/01/20 Admit Phys .................... : LETICIA Burleson Date of ....... : 1990 Family Phys ................... : NON STAFF Phone .................. : [phone] Age ................................ : 30 Film# .................. .:[id number] Sex ................................. : M Unsigned transcriptions are preliminary reports and do not represent a medical or legal document CHEST 1 VIEW 25819 COMPLETE:12/01/20 15:46 2810 Reason(s): syncope CHEST X-RAY: [...] EMERGENCY DEPT via modem Copy for: [facility] REC Page 1 of 1 Name Value Range Interpretation Code Description Data Marifer rce(s) Supporting Document(s) ID Date Data Source [id number] 12/03/2020 12:18:00 PM [facility] [address] [place] [address] PHONE: [phone] FAX: [phone] Name .................. : TOSIN Rivera Acct Number.................. : [id number] ROOM. ................. : TR-08 MR Number ................... : [id number] Stay type ............. : E/R Discharge Date......... ... : Admit Date ......... : 12/01/20 Admit Phys .................... : LETICIA Burleson Date of ....... : 1990 Family Phys ................... : NON STAFF Phone .................. : [phone] Age ................................ : 30 Film# .................. .:[id number] Sex ................................. : M Unsigned transcriptions are preliminary reports and do not represent a medical or legal document CT HEAD W/O CONTRAST 54575 COMPLETE:12/01/20 15:46 2809 Reason(s): syncope CT SCAN [...] rce(s) Supporting Document(s) ID Date Data Source [id number] 12/03/2020 12:18:00 PM EST [facility] [address] [place] [address] PHONE: [phone] FAX: [phone] Name .................. : TOSIN Rivera Acct Number.................. : [id number] ROOM. ................. : TR08 Number ................... : [id number] Stay type ............. : E/R Discharge Date......... ... : Admit Date ......... : 12/01/20 Admit Phys .................... : LETICIA Burleson Date of ....... : 1990 Family Phys ................... : NON STAFF Phone .................. : [phone] Age ................................ : 30 Film# .................. .:[id number] Sex ................................. : M Unsigned transcriptions are preliminary reports and do not represent a medical or legal document US DOPPLER UNILATERAL VENOUS 24000 COMPLETE:12/01/20 17:32 2812 Reason(s): Has known DVT [...] rce(s) Supporting Document(s) ID Date Data Source [id number] 12/03/2020 06:48:00 AM EST [facility] (Dylan Shi [...] >32 mL/min Normal ID Date Data Source [id number] 12/03/2020 06:48:00 AM EST [facility] (Dylan Shi [...] (Dylan Shi MD) ID Date Data Source [id number] 12/03/2020 07:29:00 AM [facility] Name Value Range Interpretation Code Description Data Marifer rce(s) Supporting Document(s) COMPREHENSIVE METABOLIC PANEL [facility] COMPREHENSIVE METABOLIC PANEL Sodium [Moles/volume] in Serum or Plasma 140 mEq/L 134 - 153 [facility] Potassium [Moles/volume] in Serum or Plasma 4.1 mEq/L 3.6 - 5.0 [facility] Chloride [Moles/volume] in Serum or Plasma 105 mEq/L 98 - 107 [facility] Carbon dioxide, total [Moles/volume] in Serum or Plasma 28 MEQ/L 22 - 30 [facility] Glucose [Mass/volume] in Serum or Plasma 100 MG/DL 70 - 99 H [facility] BUN 10 MG/DL 7 - 21 [facility] al Creatinine [Mass/volume] in Serum or Plasma 0.8 MG/DL 0.7 - 1.5 [facility] BUN/CREAT 13 8 - 27 [facility] Protein [Mass/volume] in Serum or Plasma 6.9 G/DL 6.3 - 8.2 [facility] Albumin [Mass/volume] in Serum or Plasma 4.4 G/DL 3.9 - 5.0 [facility] Globulin [Mass/volume] in Serum by calculation 2.5 GM/DL 2.4 - 3.2 [facility] A/G RATIO 1.8 0.8 - 2.0 [facility] Calcium [Mass/volume] in Serum or Plasma 9.3 MG/DL 8.4 - 10.2 [facility] Bilirubin.total [Mass/volume] in Serum or Plasma <0.7 MG/DL 0.2 - 1.3 [facility] Alkaline phosphatase [Enzymatic activity/volume] in Serum or Plasma 57 U/L 38 - 126 [facility] Aspartate aminotransferase [Enzymatic activity/volume] in Serum or Plasma 18 U/L 5 - 40 [facility] Alanine aminotransferase [Enzymatic activity/volume] in Seru m or Plasma 18 U/L 7 - 56 [facility] Anion gap 3 in Serum or Plasma 7.0 mmol/L 8.0 - 16.0 L [facility] AGE 30 [facility] GFR >60 mL/min [facility] ital AFR AMER GFR >60 mL/min [facility] sp[facility] Male GFR In terprentation [...] >32 mL/min Normal ID Date Data Source [id number] 12/03/2020 07:12:00 AM EST [facility] Name Value Range Interpretation Code Description Data Marifer rce(s) Supporting Document(s) CBC W/AUTOMATED DIFF [facility] COMPLETE BLOOD COUNT Leukocytes [#/volume] in Blood by Automated count 5.2 10^3/uL 4.2 - 1 1.0 [facility] Erythrocytes [#/volume] in Blood by Automated count 4.44 10^6/uL 4. 50 - 6.30 L [facility] Hemoglobin [Mass/volume] in Blood 13.3 g/dL 14.0 - 16.0 L [facility] Hematocrit [Volume Fraction] of Blood by Automated count 39.1 % 4 1.0 - 51.0 L [facility] Erythrocyte mean corpuscular volume [Entitic volume] by Auto mated count 88.1 fL 80.0 - 94.0 [facility] Erythrocyte mean corpuscular hemoglobin [Entitic mass] by Automated count 30.0 pg 27.0 - 34.0 [facility] Erythrocyte mean corpuscular hemoglobin concentration [Mass/volume] by Automated count 34.0 g/dL 31.0 - 36.0 [facility] Erythrocyte distribution width [Ratio] by Automated count 12.3 % 11.5 - 14.8 [facility] Platelets [#/volume] in Blood by Automated count 185 10^3/uL 150 - 45 0 [facility] Platelet mean volume [Entitic volume] in Blood by Automated count 10.2 fL 7.4 - 10.4 [facility] Neutrophils/100 leukocytes in Blood by Automated count 41.3 % 37. 0 - 80.0 [facility] Lymphocytes/100 leukocytes in Blood by Manual count 48.2 % 25.0 - 40.0 H [facility] Monocytes/100 leukocytes in Blood by Automated count 7.8 % 3.0 - 8.0 [facility] Eosinophils/100 leukocytes in Blood by Automated count 2.1 % 0.0 - 7.0 [facility] Basophils/100 leukocytes in Blood by Automated count 0.4 % 0.0 - 2.0 [facility] %IG 0.2 % 0.0 - 0.0 H [facility] Hospit al %NRBC 0.0 % 0.0 - 0.0 [facility] Neutrophils [#/volume] in Blood by Automated count 2.16 10^3/uL 2.00 - 6.90 [facility] Lymphocytes [#/volume] in Blood by Automated count 2.52 10^3/uL 0.60 - 3.40 [facility] Monocytes [#/volume] in Blood by Automated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 [id number] ROOM. ................. : TR-08 Number ................... : [id number] Stay type ............. : E/R Discharge Date......... ... : 11/19/20 Admit Date ......... : 11/19/20 Admit Phys .................... : CHERYL OLVERA Date of ....... : 1990 Family Phys ................... : NON STAFF Phone .................. : [phone] Age ................................ : 30 Film# .................. .:[id number] Sex ................................. : M Unsigned transcriptions are preliminary reports and do not represent a medical or legal document MRI LUMBAR SPINE W/O CONTRAST [id number] COMPLETE:11/19/20 15:25 INGRID 1972 Reason(s): Lower Back [...] By Marlon Decker MD , 11/20/20 08:56, [facility] Transcribe Initials: GAYATHRI , Transcribe Date: 11/20/20 01:55, Dictation Date: Copy for: GRAYSON GONZALEZ via fax Copy for: EMERGENCY DEPT via modem Copy for: 710 MED REC DISCHARGED Page 1 of 1 Name Value Range Interpretation Code Description Data Marifer rce(s) Supporting Document(s) ID Date Data Source [id number] 11/19/2020 02:16:00 PM EST [facility] 1 OrderSheet [facility] Emergency Department [address] [place] [address] Phone #: ext- [phone] 11/19/2020 13:54 Patient: MARVIN LEAHY Sex: M [...] 14:36 11/19/2020 14:41 BurnhamW/O Cont Larry Moreno developmental education instructorEsvin ER(Oxygen?(No)) (No) PA; Tech1 Reason for Study: [...] by Larry Moreno (21:18 11/19/2020)] 2 OrderSheet [facility] Emergency Department [address] [place] [address] Phone #: ext- [phone] 11/19/2020 13:54 Patient: MARVIN LEAHY Sex: M : 1990 Age: 30y[Electronically locked by Troy Ann RN (15:51 11/19/2020)] Name Value Range Interpretation Code Description Data Marifer rce(s) Supporting Document(s) ID Date Data Source [id number] 11/19/2020 02:16:00 PM EST [facility] 1 Medication Reconciliation Report [facility] Emergency Department [address] [place] [address] Phone #: ext- [phone] 11/19/2020 13:54 Patient: MARVIN LEAYH Sex: M : 1990 Age: 30yWeight: 92.9 [...] the Emergency Department: 2 Medication Reconciliation Report [facility] Emergency Department [address] [place] [address] Phone #: ext- [phone] 11/19/2020 13:54 Patient: [...] Dispense 1 pack.Refills: 0. Substitution permitted.Pharmacy - [facility] [address] [facility] ; [place] [address]. FaxNumber: .gabapentin 100 mg capsule Take 1 capsule three times a day for 30 days -- Dispense 90 capsule.Refills: 0. Substitution permitted.Pharmacy - [facility] [employer] [facility] ; [place] [address]. .methocarbamol 500 mg tablet Take 1 tablet three times a day for 10 days -- Dispense 30 tablet. Refills:0. Substitution permitted.Pharmacy - [facility] [employer] [address] [facility] ; [place] [address]. . -- PERLA Cisse Name Value Range Interpretation Code Description Data Marifer rce(s) Supporting Document(s) ID Date Data Source [id number] 11/19/2020 02:16:00 PM [facility] 1 Medication Administration Record [facility] Emergency Department [address] [place] [address] Phone #: [phone]- [phone] 11/19/2020 13:54 Patient: MARVIN LEAHY Sex: M [...] rce(s) Supporting Document(s) ID Date Data Source [id number] 11/19/2020 02:16:00 PM [facility] 1 General Instructions [facility] Emergency Department [address] [place] [address] Phone #: ext [phone] 11/19/2020 13:54 Patient: MARVIN LEAHY Sex: M [...] Refills: 0. Substitution permitted. [facility] [id number] [place] [address] ; [place] [address]. . gabapentin 100 mg capsule Take 1 capsule three times a day for 30 days -- Dispense 90 capsule. Refills: 0. Substitution permitted. Pharmacy - [facility] [employer] - [address] [facility] ; [place] [address]. . 2 General Instructions [facility] Emergency Department [address] [place] [address] Phone #: ext- [phone] 11/19/2020 13:54 Patient: MARVIN LEAHY Sex: M : 1990 Age: 30ymethocarbamol 500 mg tablet Take 1 tablet three times a day for 10 days -- Dispense 30 tablet. Refills:0. Substitution permitted.Pharmacy - [facility] [address] [facility] ; [place] [address]. .Follow-up:Follow up with your doctor tomorrow. Call for an appointment. Reason for referral: evaluation, treatmentand refer to pain management and physical therapy. Summary of care provided to patient.Understanding of the discharge instructions verbalized by patient. ADDITIONAL INFORMATIONBack Pain (Acute or Chronic) 3 [facility] Emergency Department [address] [place] [address] Phone #: ext- [phone] 11/19/2020 13:54 Patient: MARVIN LEAHY Sex: M [...] this home care advice: 4 General Instructions [facility] Emergency Department [address] [place] [address] Phone #: ext- [phone] 11/19/2020 13:54 Patient: [...] or are takingother medicines. You may use ipaw-cci-xonmcjf medicine as directed on the bottle to [...] may affect your care 5 General Instructions [facility] Emergency Department [address] [place] [address] Phone #: ext- [phone] 11/19/2020 13:54 Patient: MARVIN LEAHY Sex: M [...] Numbness in the groin or genital area [employer]. [address] [place] [address]. All rights reserved. This information is not [...] rce(s) Supporting Document(s) ID Date Data Source [id number] 11/19/2020 02:16:00 PM EST [facility] 1 Clinical Report - Nurses [facility] Emergency Department [address] [place] [address] Phone #: ext- [phone] 11/19/2020 13:54 Patient: MARVIN LEAHY Sex: M : 1990 Age: 30yTRIAGEArrived by private vehicle. Historian: patient. Unaccompanied. ( complains of lower back pain, painworse since last night).Acuity: LEVEL 4.Chief Complaint: BACK PAIN.Alert.Onset. (1 year). The patient has had trouble walking. 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 --14:03 11/19/20 Michelle Rowlnad R.N. Ivermectin Oral (Tablet 3 mg) 3 [...] Rowland R.N. 2 Clinical Report - Nurses [facility] Emergency Department [address] [place] [address] Phone #: [phone]- [phone] 11/19/2020 13:54 Patient: MARVIN LEAHY Sex: M [...] the [place] 3 Clinical Report - Nurses [facility] Emergency Department [address] [place] [address] Phone #: ext- [phone] 11/19/2020 13:54 Patient: [...] Patient transported to MRI by wheelchair with pharmacy technician infusion. --14:43 11/19/20 Ashton, Alyssa Patient returned from MRI by wheelchair with mask and pharmacy technician infusion. --15:20 11/19/20 Jennifer Nagy R.N. 15:25 11/19/2020 [...] / DISCHARGE 4 Clinical Report - Nurses [facility] Emergency Department [address] [place] [address] Phone #: ext- [phone] 11/19/2020 13:54 Patient: MARVIN LEAHY Sex: M : 1990 Age: 30y 15:48 11/19/20. BP: 121/68. HR: 76. RR: 16. O2 saturation: 100%. Temp: 96.8 F. Pain level now 04/18. --15:48 11/19/20 [facility] Tech, Esvin, SHILPI [facility] Condition at departure: improved and stable. Discharge instructions provided and reviewed with the patient. Reviewed medication(s) side effects, precautions, dosing and course information. Reviewed referral to a primary care physician. Activity restrictions (rest) reviewed. Patient verbalized understanding. Written instructions provided in [place]. The patient was discharged by the physician assistant foreman. He was discharged home and accompanied by apprentice embalmer. He left ambulatory and via private vehicle. Training Administrator driving. --15:51 11/19/20 Troy Ann RN.Locked/Released at 11/19/2020 15:51 by Troy Ann RN Name Value Range Interpretation Code Description Data Marifer rce(s) Supporting Document(s) ID Date Data Source [id number] 11/19/2020 02:16:00 PM EST [facility] 1 Clinical Report - Physicians/Mid Levels [facility] Emergency Department [address] [place] [address] Phone #: ext- [phone] 11/19/2020 13:54 Patient: MARVIN LEAHY Sex: M [...] week. 2 Clinical Report - Physicians/Mid Levels [facility] Emergency Department [address] [place] [address] Phone #: ext- [phone] 11/19/2020 13:54 Patient: MARVIN LEAHY Sex: M [...] otherwise follow up with his [facility] at [facility] Patient counseled in person regarding the patient's [...] deficit. 3 Clinical Report - Physicians/Mid Levels [facility] Emergency Department [address] [place] [address] Phone #: ext- [phone] 11/19/2020 13:54 Patient: MARVIN LEAHY Sex: M [...] pack. Refills: 0. Substitution permitted. Pharmacy - [address] ; [place] [address]. . gabapentin 100 mg capsule Take 1 capsule three times a day for 30 days -- Dispense 90 capsule. Refills: 0. Substitution permitted. Pharmacy - [address] ; [place] [address]. . methocarbamol 500 mg tablet Take 1 tablet three times a day for 10 days -- Dispense 30 tablet. Refills: 0. Substitution permitted. [facility] - [address] ; [place] [address]. . Follow-up: 4 Clinical Report - Physicians/[facility] Emergency Department [address] [place] [address] Phone #: ext- [phone] 11/19/2020 13:54 Patient: MARVIN LEAHY Sex: M [...] rce(s) Supporting Document(s) ID Date Data Source [id number] 11/19/2020 02:54:00 PM EST [facility] Name Value Range Interpretation Code Description Data Marifer rce(s) Supporting Document(s) [facility] COL[facility] yellow NORMAL: Yellow [facility] CLARITY cloudy NORMAL: Clear [facility] Specific gravity of Urine by Test strip 1.015 1.001 - 1.030 [facility] pH 8 5 - 9 [facility] al Glucose [Mass/volume] in Urine by Test strip NORM NORMAL: Negat [facility] Bilirubin.total [Presence] in Urine by Test strip NEG NORMAL: Negative [facility] Ketones [Presence] in Urine by Test strip NEG NORMAL: Negative [facility] Protein [Mass/volume] in Urine by Test strip NEG NORMAL: [facility] Nitrite [Presence] in Urine by Test strip NEG NORMAL: Negative [facility] BLOOD 50 NORMAL: Negative A [facility] Leukocyte esterase [Presence] in Urine by Test strip NEG DELANO L: Negative [facility] Urobilinogen [Mass/volume] in Urine by Test strip NOR less fidelia n 1.0 mg/dL [facility] MICROSCOPIC See Below [facility] Erythrocytes [#/volume] in Urine by Test strip 3 - 5 NORMAL: NON E SEEN [facility] EPITHELIAL FEW NORMAL: NONE SEEN [facility] Bacteria [Presence] in Urine sediment by Light microscopy 1+ SMALL NORMAL: NONE SEEN [facility] Amorphous sediment [Presence] in Urine sediment by Light marleni roscopy 3+ NORMAL: NONE SEEN [facility] ID Date Data Source [id number] 11/14/2020 11:18:00 AM EST [facility] ([facility]) Name Value Range Interpretation Code Description Data Marifer rce(s) Supporting Document(s) Color of Urine Laboratory test result [facility] ([facility] Clinics) Appearance of Urine Laboratory test result [facility] ([facility]) Spec [place] 1.010 [facility] ([facility]) pH of Urine by Test strip 8 [facility] NT ([facility]) Protein [Presence] in Urine by Test strip Laboratory test result [facility] ([facility]) Leukocytes Laboratory test result [facility] ([facility]) Nitrate [Presence] in Urine Laboratory test result [facility] ([facility]) Urobilinogen Laboratory test result [facility] ([facility]) Bilirubin.total [Presence] in Urine by Test strip Laboratory test res ult [facility] ([facility]) Ketones [Presence] in Urine by Test strip Laboratory test result [facility] ([facility]) Inhouse Glucose Laboratory test result [facility] ([facility]) Blood type and Indirect antibody screen panel - Blood Laboratory test result [facility] ([facility]) ID Date Data Source [id number] 10/23/2020 10:27:00 AM EST [facility] [address] [place] [address] PHONE: [phone] FAX: [phone] Name .................. : TOSIN ADDISONEW Cristino Acct Number.................. : [id number] ROOM. ................. : TR-08 MR Number ................... : [id number] Stay type ............. : E/R Discharge Date......... ... : 10/19/20 Admit Date ......... : 10/19/20 Admit Phys .................... : CHAO CANDE Date of ....... : 1990 Family Phys ................... : NON STAFF Phone .................. : [phone] Age ................................ : 30 Film# .................. .:[id number] Sex ................................. : M Unsigned transcriptions are preliminary reports and do not represent a medical or legal document CT HEAD W/O CONTRAST [id number] COMPLETE:10/19/20 19:17 NELLY 24 Reason(s): Syncope CT [...] rce(s) Supporting Document(s) ID Date Data Source [id number] 10/22/2020 09:17:00 [place] [address] PHONE: [phone] FAX: [phone] Name .................. : TOSIN Rivera Acct Number.................. : [id number] ROOM. ................. : TR-08 Number ................... : [id number] Stay type ............. : E/R Discharge Date......... ... : 10/19/20 Admit Date ......... : 10/19/20 Admit Phys .................... : CHAO CANDE Date of ....... : 1990 Family Phys ................... : NON STAFF Phone .................. : [phone] Age ................................ : 30 Film# .................. .:[id number] Sex ................................. : M Unsigned transcriptions are preliminary reports and do not represent a medical or legal document CHEST 2 VIEWS 38699 COMPLETE:10/19/20 19:17 NELLY 23 Reason(s): Syncope CHEST [...] rce(s) Supporting Document(s) ID Date Data Source [id number] 10/20/2020 09:17:00 [place] [address] RESPIRATORY CARE REPORT ==== ---------NAME------- NUMBER SEX AGE ADMIT DISC. XRAY# F/C RHONDA Rivera [id number] M 30 10/19/20 10/19/20 [id number] SB4 E/R DATE OF : 1990 M/R# [id number] #: [id number] TR-08 LOCATION: [place] [address] COMP LETE:10/19/20 14:52 [facility] [address] PHYSICIAN: CHAO MORENO Name Value Range Interpretation Code Description Data Marifer rce(s) Supporting Document(s) ID Date Data Source [id number] 10/19/2020 10:32:00 AM [facility] 1 OrderSheet [facility] Emergency Department [address] [place] [address] Phone #: ext- [phone] 10/19/2020 10:31 Patient: [...] STAT 10:56 10/19/2020 11:58 Cricket, 2 OrderSheet [facility] Emergency Department [address] [place] [address] Phone #: ext- [phone] 10/19/2020 10:31 -------- [...] InitialedBlood Pressure 10:57 10/19/2020 11:00 Cricket,Monitor Larry DUNCAN;Umbrella Repairer 10:57 10/19/2020 11:00 Cricket(continuous) Larry DUNCAN;EKG 10:57 10/19/2020 11:00 Larry Harley R.N.;Pulse oximeter 10:57 10/19/2020 11:00 Cricket(Continuous) Larry DUNCAN;Vitals 10:57 10/19/2020 11:00 Larry Harley R.N.;[Electronically signed by Rafael Harley R.N. (13:51 10/19/2020)][Electronically signed by Larry Moreno (21:52 10/19/2020)][Electronically locked by Rafael Harley R.N. (13:51 10/19/2020)] Name Value Range Interpretation Code Description Data Marifer rce(s) Supporting Document(s) ID Date Data Source [id number] 10/19/2020 10:32:00 AM EST [facility] 1 Medication Reconciliation Report [facility] Emergency Department [address] [place] [address] Phone #: [phone] 10/19/2020 10:31 Patient: MARVIN LEAHY Sex: M [...] 90 capsule.Refills: 0. Substitution permitted.Pharmacy - [facility] [employer] - [address] [facility] ; [place] [address]. .Medrol (Julian) 4 mg tablets in a dose pack Take 1 tablet as directed for 6 days -- Dispense 1 pack. 2 Medication Reconciliation Report [facility] Emergency Department [address] [place] [address] Phone #: ext- [phone] 10/19/2020 10:31 -- Patient: MARVIN LEAHY Sex: M : 1990 Age: 30yRefills: 0. Substitution permitted.Pharmacy - [facility] [employer] [address] [facility] ; [place] [address]. . -- PERLA Cisse Name Value Range Interpretation Code Description Data Marifer [facility](s) Supporting Document(s) ID Date Data Source [id number] 10/19/2020 10:32:00 AM [facility] 1 Medication Administration Record [facility] Emergency Department [address] [place] [address] Phone #: ext- [phone] 10/19/2020 10:31 Patient: [...] Name Value Range Interpretation Code Description Data [facility](s) Supporting Document(s) ID Date Data Source [id number] 10/19/2020 10:32:00 AM [facility] 1 General Instructions [facility] Emergency Department [address] [place] [address] Phone #: ext [phone] 10/19/2020 10:31 Patient: MARVIN LEAHY Sex: M : 1990 Age: 30yVasovagal, postural syncope(Micturition Syncope).Microscopic hematuriaUncontrolled essential hypertension.Chronic nontraumatic lumbar back pain.INSTRUCTIONSNo strenuous activity until released.Warnings: Further evaluation is necessary. It is very important to follow up with a healthcare provider.Prescription Medications:gabapentin 100 mg capsule Take 1 capsule three times a day for 30 days -- Dispense 90 capsule.Refills: 0. Substitution permitted.[facility] [address] [facility] ; [place] [address]. .Medrol (Julian) 4 mg tablets in a dose pack Take 1 tablet as directed for 6 days -- Dispense 1 pack.Refills: 0. Substitution permitted.Pharmacy - [facility] [employer] - [address] [facility] ; [place] [address]. .Understanding of the discharge instructions verbalized by patient.Follow-up with: Dylan Shi MD, Cardiology, , [address] [place] [address] Follow up. Call for the next available appointment. Reason for referral: evaluation, treatment and seeyour PCM for referral to Cardiology for further evaluation. Summary of care provided to patient.Follow-up with: Benito Willett M.D., Urology, , [address] [place] [address] Follow up. Call for the next available appointment. Reason for referral: evaluation, treatment and seeyour PCM for referral to Urology, evaluate Hematuria and Micurition Syncope. Summary of care providedto patient. ADDITIONAL INFORMATIONFainting: Vagal Reaction 2 General Instructions [facility] Emergency Department [address] [place] [address] Phone #: ext- [phone] 10/19/2020 10:31 Patient: MARVIN LEAHY Sex: M [...] rapidly, very slowly, or irregularly (palpitations) [employer]. [address] [place] [address]. All rights reserved. This information is not intended as asubstitute for professional medical care. Always follow your healthcare professional's instructions.High Blood Pressure, To Be Confirmed, No Treatment 3 General Instructions [facility] Emergency Department [address] [place] [address] Phone #: ext- [phone] 10/19/2020 10:31 Patient: [...] monitors at most pharmacies. 4 General Instructions [facility] Emergency Department [address] [place] [address] Phone #: ext- [phone] 10/19/2020 10:31 Patient: MARVIN LEAHY Sex: M : 1990 Age: 30yThe [place] [employer] Association advises the following guidelines for [...] to get medical advice 5 General Instructions [facility] Emergency Department [address] [place] [address] Phone #: [phone]- [phone] 10/19/2020 10:31 Patient: MARVIN LEAHY Sex: M : 1990 Age: 30yCall your healthcare provider right away if any of these occur: Severe headache Throbbing or rushing sound in the ears Nosebleed Sudden severe pain in your belly (abdomen) Extreme drowsiness, confusion, or fainting Dizziness or dizziness with spinning feeling (vertigo) [id number] [employer] [place] [address]. All rights reserved. This information is not intended as asubstitute for professional medical care. Always follow your healthcare prof essional's instructions.Back Pain (Acute or Chronic) 6 General Instructions [facility] Emergency Department [address] [place] [address] Phone #: ext- [phone] 10/19/2020 10:31 Patient: [...] this home care advice: 7 General Instructions [facility] Emergency Department [address] [place] [address] Phone #: ext- [phone] 10/19/2020 10:31 Patient: [...] or are takingother medicines. You may use tbrv-uml-mrmstja medicine as directed on the bottle to [...] may affect your care 8 General Instructions [facility] Emergency Department [address] [place] [address] Phone #: ext- [phone] 10/19/2020 10:31 Patient: [...] Numbness in the groin or genital area [employer]. [address] [place] [address]. All rights reserved. This information is not intended as asubstitute for professional medical care. Always follow your healthcare professional's instructions.Blood in the Urine 9 General Instructions [facility] Emergency Department [address] [place] [address] Phone #: ext- [phone] 10/19/2020 10:31 Patient: MARVIN LAEHY Sex: M : 1990 Age: 30yBlood in [...] using these medicines.Follow-up care 10 General Instructions [facility] Emergency Department [address] [place] [address] Phone #: ext- [phone] 10/19/2020 10:31 Patient: [...] nose or gums or easy bruising [employer]. [address] [place] [address], [place] [address]. All rights reserved. This information is not [...] rce(s) Supporting Document(s) ID Date Data Source [id number] 10/19/2020 10:32:00 AM EST [facility] 1 Clinical Report - Nurses [facility] Emergency Department [address] [place] [address] Phone #: ext- [phone] 10/19/2020 10:31 Patient: [...] killing yourself?". 2 Clinical Report - Nurses [facility] Emergency Department [address] [place] [address] Phone #: ext- [phone] 10/19/2020 10:31 Patient: [...] 10/19/20 Rafael Harley R.N. Patient returned from [place] by wheelchair with tech. --11:59 10/19/20 Rafael Harley R.N. Reassurance given to the patient. --11:59 10/19/20 Rafael Harley R.N. Bed placed in lowest position. Brakes of bed on. --13:50 10/19/20 Rafael Harley R.N.DISPOSITION / DISCHARGE No learning barriers present. Discharge instructions provided and reviewed with the patient. The patient was discharged by the physician assistant foreman. He was discharged home. He left ambulatory and via private vehicle. Patient driving. --13:50 10/19/20 Rafael Harley R.N. 13:50 10/19/20. BP: 124/66. MAP: 85. HR: 62. RR: 18. O2 saturation: deferred. Temp: deferred. Pain level now: 12/19. --13:50 10/19/20 Rafael Harley R.N. Departure time: 13:51 10/19/2020. --13:51 10/19/20 Rafael Harley R.N. 3 Clinical Report - Nurses [facility] Emergency Department [address] [place] [address] Phone #: ext- [phone] 10/19/2020 10:31 Patient: MARVIN LEAHY Sex: M : 1990 Age: 30yLocked/Released at 10/19/2020 13:51 by Rafael Harley R.N. Name Value Range Interpretation Code Description Data Marifer rce(s) Supporting Document(s) ID Date Data Source [id number] 10/19/2020 10:32:00 AM EST [facility] 1 Clinical Report - Physicians/Mid Levels [facility] Emergency Department [address] [place] [address] Phone #: ext- [phone] 10/19/2020 10:31 Patient: [...] use. 2 Clinical Report - Physicians/Mid Levels [facility] Emergency Department [address] [place] [address] Phone #: ext- [phone] 10/19/2020 10:31 Patient: [...] 0.20) 3 Clinical Report - Physicians/Mid Levels [facility] Emergency Department [address] [place] [address] Phone #: ext- [phone] 10/19/2020 10:31 Patient: [...] Male GFR Interprentation 20-49 yrs >60 mL/min Ehdtaa29-47 yrs >56 mL/min Normal 60-69 yrs >49 mL/min Normal 70-79yrs>42 mL/min Normal 80 and above >35 mL/min Normal Female GFRInterpretation 20-39 yrs >60 mL/min Normal 40-49 yrs >58 mL/minNormal 50-59 yrs >51 mL/min Normal 60-69 yrs >45 mL/min Ztfvez32-84 yrs >39 mL/min Normal 80 and above >32 mL/min NormalPT/PTT: (DERRICK: 10/19/2020 11:41) ( [facility] 10[facility]19[facility] 11:57) Final results Test Result Flag Units (Reference) PROTIME 14.6 SECONDS (11.0 - 15.5) INR 1.08 (0.93 - 1.23) PTT 28.1 SECONDS (24.8 - 36.7) \\BLDo\\INR INTERPRETATION\\BLDx\\ Therapeutic range for Coumadin andrelated oral anticoagulants. -International Normalized Ratio (INR): 2.0 - 3.0 for VenousThrombosis, Pulmonary Embolus, Tissue heart valves, Acute NC Atrial Fibrillation, Valvular heart diseaseand recurrent Systemic Embolism. -International Normalized Ratio (INR): 2.5 - 3.5 forMechanical Prosthetic valve.Lactic Acid: (DERRICK: 10/19/2020 11:41) ( [facility] 11[facility]52) Final results Test Result Flag Units (Reference) LACTIC ACID 1.0 MMOL/L (0.2 - 2.2)Lipase: (DERRICK: 10/19/2020 11:41) ( [facility] 10/19/2020 12:33) Final results Test Result Flag Units (Reference) LIPASE 35 U/L (13 - 60) 4 Clinical Report - Physicians/Mid Levels [facility] Emergency Department [address] [place] [address] Phone #: ext- [phone] 10/19/2020 10:31 Patient: MARVIN LEAHY Sex: M : 1990 Age: 30y Magnesium: (DERRICK: 10/19/2020 11:41) ( [facility] 10[facility]19[facility] 12:33) Final results Test Result Flag Units (Reference) MAGNESIUM 2.1 MG/DL (1.7 - 2.2) Troponin-T: (DERRICK: 10/19/2020 11:41) ( [facility] 10/19/2020 13:24) Final results Test Result Flag Units (Reference) TROPONIN T <0.01 NG/ML (0.00 - 0.10) TROPONIN T0.1 ng/ml Recommended as the clinical threshold value forTroponin T. TSH: (DERRICK: 10/19/2020 11:41) ( [facility] 10/19/2020 12:33) Final results Test Result Flag Units (Reference) TSH 1.61 uIU/mL (0.47 - 5.01) Urinalysis: (DERRICK: 10/19/2020 11:40) ( [facility] 10/19/2020 12:29) Final results Test Result Flag [...] hematuria 5 Clinical Report - Physicians/Mid Levels [facility] Emergency Department [address] [place] [address] Phone #: ext- [phone] 10/19/2020 10:31 Patient: MARVIN LEAHY Sex: M [...] capsule. Refills: 0. Substitution permitted. Pharmacy - [facility] [address] [facility] ; [place] [address]. . Medrol (Julian) 4 mg tablets in a dose pack Take 1 tablet as directed for 6 days -- Dispense 1 pack. Refills: 0. Substitution permitted. Pharmacy - [facility] [employer] - [address] [facility] ; [place] [id number]. FaxNumber: . Understanding of the discharge instructions verbalized by patient. Follow- up with: Dylan Shi MD, Cardiology, , [address] [place] [address], [address] Follow up. Call for the next available appointment. Reason for referral: evaluation, treatment and see your PCM for referral to Cardiology for further evaluation. Summary of care provided to patient. Follow-up with: Benito Willett M.D., Urology, , [address] [place] [address], [address] Follow up. Call for the next available appointment. Reason for referral: evaluation, treatment and see your PCM for referral to Urology, evaluate Hematuria and Micurition Syncope. Summary of care provided to patient.(Electronically signed by PERLA Cisse 10/19/2020 21:52) Name Value Range Interpretation Code Description Data Marifer rce(s) Supporting Document(s) ID Date Data Source [id number] 10/19/2020 01:24:00 PM [facility] Name Value Range Interpretation Code Description Data Marifer rce(s) Supporting Document(s) TROPONIN T <0.01 NG/ML 0.00 - 0.10 [facility] ospital TROPONIN T0.1 ng/ml Recommended as the c linical threshold value forTroponin T. ID Date Data Source [id number] 10/19/2020 12:33:00 PM [facility] Name Value Range Interpretation Code Description Data Marifer rce(s) Supporting Document(s) COMPREHENSIVE METABOLIC PANEL [facility] COMPREHENSIVE METABOLIC PANEL Sodium [Moles/volume] in Serum or Plasma 140 mEq/L 134 - 153 [facility] Potassium [Moles/volume] in Serum or Plasma 4.1 mEq/L 3.6 - 5.0 [facility] Chloride [Moles/volume] in Serum or Plasma 104 mEq/L 98 - 107 [facility] Carbon dioxide, total [Moles/volume] in Serum or Plasma 33 MEQ/L 22 - 30 H [facility] Glucose [Mass/volume] in Serum or Plasma 66 MG/DL 65 - 110 [facility] BUN 13 MG/DL 7 - 21 [facility] Creatinine [Mass/volume] in Serum or Plasma 1.0 MG/DL 0.7 - 1.5 [facility] BUN/CREAT 13 8 - 27 [facility] al Protein [Mass/volume] in Serum or Plasma 8.0 G/DL 6.3 - 8.2 [facility] Albumin [Mass/volume] in Serum or Plasma 4.4 G/DL 3.9 - 5.0 [facility] Globulin [Mass/volume] in Serum by calculation 3.6 GM/DL 2.4 - 3.2 H [facility] A/G RATIO 1.2 0.8 - 2.0 [facility] Calcium [Mass/volume] in Serum or Plasma 10.0 MG/DL 8.4 - 10.2 [facility] Bilirubin.total [Mass/volume] in Serum or Plasma <0.7 MG/DL 0.2 - 1.3 [facility] Alkaline phosphatase [Enzymatic activity/volume] in Serum or Plasma 63 U/L 38 - 126 [facility] Aspartate aminotransferase [Enzymatic activity/volume] in Serum or Plasma 28 U/L 5 - 40 [facility] Alanine aminotransferase [Enzymatic activity/volume] in Seru m or Plasma 30 U/L 7 - 56 [facility] Anion gap 3 in Serum or Plasma 3.0 mmol/L 8.0 - 16.0 L [facility] AGE 30 yrs [facility] GFR >60 mL/min [facility] ital AFR AMER GFR >60 mL/min [facility] Male GFR In terprentation [...] >32 mL/min Normal ID Date Data Source [id number] 10/19/2020 12:33:00 PM [facility] Name Value Range Interpretation Code Description Data Marifer rce(s) Supporting Document(s) Thyrotropin [Units/volume] in Serum or Plasma by Detec tion limit <= 0.05 mIU/L 1.61 uIU/mL 0.47 - 5.01 [facility] ID Date Data Source [id number] 10/19/2020 12:33:00 PM EST [facility] Name Value Range Interpretation Code Description Data Marifer rce(s) Supporting Document(s) Magnesium [Mass/volume] in Serum or Plasma 2.1 MG/DL 1.7 - 2.2 [facility] ID Date Data Source [id number] 10/19/2020 12:33:00 PM EST [facility] Name Value Range Interpretation Code Description Data Marifer rce(s) Supporting Document(s) Lipase [Enzymatic activity/volume] in Serum or Plasma 35 U/L 13 - 60 [facility] ID Date Data Source [id number] 10/19/2020 11:57:00 AM [facility] Name Value Range Interpretation Code Description Data Marifer rce(s) Supporting Document(s) Prothrombin time (PT) 14.6 SECONDS 11.0 - 15.5 [facility] INR in Platelet poor plasma by Coagulation assay 1.08 0.93 - 1. 23 [facility] aPTT in Blood by Coagulation assay 28.1 SECONDS 24.8 - 36.7 [facility] \\BLDo\\INR INTERPRETATION\\BLDx\\ Therapeutic range for Coumadin and related oral anticoagulants. - International Normalized Ratio (INR): 2.0 - 3.0 for Venous Thrombosis, Pulmonary Embolus, Tissue heart valves, Acute NC Atrial Fibrillation, Valvular heart disease and recurrent Systemic Embolism. - International Normalized Ratio (INR): 2.5 - 3.5 for Mechanical Prosthetic valve. ID Date Data Source [id number] 10/19/2020 11:56:00 AM [facility] Name Value Range Interpretation Code Description Data Marifer rce(s) Supporting Document(s) CBC W/AUTOMATED DIFF [facility] COMPLETE BLOOD COUNT Leukocytes [#/volume] in Blood by Automated count 4.6 10^3/uL 4.2 - 1 1.0 [facility] Erythrocytes [#/volume] in Blood by Automated count 4.94 10^6/uL 4. 50 - 6.30 [facility] Hemoglobin [Mass/volume] in Blood 14.6 g/dL 14.0 - 16.0 [facility] Hematocrit [Volume Fraction] of Blood by Automated count 43.6 % 4 1.0 - 51.0 [facility] Erythrocyte mean corpuscular volume [Entitic volume] by Auto mated count 88.3 fL 80.0 - 94.0 [facility] Erythrocyte mean corpuscular hemoglobin [Entitic mass] by Automated count 29.6 pg 27.0 - 34.0 [facility] Erythrocyte mean corpuscular hemoglobin concentration [Mass/volume] by Automated count 33.5 g/dL 31.0 - 36.0 [facility] Erythrocyte distribution width [Ratio] by Automated count 12.2 % 11.5 - 14.8 [facility] Platelets [#/volume] in Blood by Automated count 196 10^3/uL 150 - 45 0 [facility] Platelet mean volume [Entitic volume] in Blood by Automated count 10.4 fL 7.4 - 10.4 [facility] Neutrophils/100 leukocytes in Blood by Automated count 46.2 % 37. 0 - 80.0 [facility] Lymphocytes/100 leukocytes in Blood by Manual count 41.5 % 25.0 - 40.0 H [facility] Monocytes/100 leukocytes in Blood by Automated count 9.2 % 3.0 - 8.0 H [facility] Eosinophils/100 leukocytes in Blood by Automated count 2.0 % 0.0 - 7.0 [facility] Basophils/100 leukocytes in Blood by Automated count 0.7 % 0.0 - 2.0 [facility] %IG 0.4 % 0.0 - 0.0 H [facility] %NRBC 0.0 % 0.0 - 0.0 [facility] al Neutrophils [#/volume] in Blood by Automated count 2.12 10^3/uL 2.00 - 6.90 [facility] Lymphocytes [#/volume] in Blood by Automated count 1.90 10^3/uL 0.60 - 3.40 [facility] Monocytes [#/volume] in Blood by Automated count 0.42 10^3/uL 0.00 - 0.90 [facility] Eosinophils [#/volume] in Blood by Automated count 0.09 10^3/uL 0.00 - 0.70 [facility] Basophils [#/volume] in Blood by Automated count 0.03 10^3/uL 0.00 - 0.20 [facility] #IG 0.02 10^3/uL 0.00 - 0.10 [facility] #NRBC 0.00 10^3/uL 0.00 - 0.00 [facility] MANUAL DIFF NOT INDICATED [facility] RBC MORPH NOT INDICATED [facility] ID Date Data Source [id number] 10/19/2020 11:52:00 AM EST [facility] Name Value Range Interpretation Code Description Data Marifer rce(s) Supporting Document(s) Lactate [Moles/volume] in Serum or Plasma 1.0 MMOL/L 0.2 - 2.2 [facility] ID Date Data Source [id number] 10/19/2020 12:26:00 PM EST [facility] Name Value Range Interpretation Code Description Data Marifer rce(s) Supporting Document(s) URINALYSIS [facility] albin URINALYSIS SOURCE R [facility] COLOR yellow NORMAL: Yellow [facility] CLARITY clear NORMAL: Clear [facility] Specific gravity of Urine by Test strip 1.020 1.001 - 1.030 [facility] pH 7 5 - 9 [facility] Glucose [Mass/volume] in Urine by Test strip NORM NORMAL: Negat [facility] Bilirubin.total [Presence] in Urine by Test strip NEG NORMAL: Negative [facility] Ketones [Presence] in Urine by Test strip NEG NORMAL: Negative [facility] Protein [Mass/volume] in Urine by Test strip NEG NORMAL: Negat [facility] Nitrite [Presence] in Urine by Test strip NEG NORMAL: Negative [facility] BLOOD 10 NORMAL: Negative A [facility] Leukocyte esterase [Presence] in Urine by Test strip NEG DELANO L: Negative [facility] Urobilinogen [Mass/volume] in Urine by Test strip NOR less fidelia n 1.0 mg/dL [facility] MICROSCOPIC See Below [facility] ital Erythrocytes [#/volume] in Urine by Test strip 1 - 3 NORMAL: NON E SEEN [facility] ID Date Data Source [id number] 09/18/2020 08:57:00 AM EST [facility] [address] [place] [address] PHONE: [phone] FAX: [phone] Name .................. : TOSIN Rivera Acct Number.................. : [id number] ROOM. ................. : TR-07 MR Number ................... : [id number] Stay type ............. : E/R Discharge Date......... ... : Admit Date ......... : 09/17/20 Admit Phys .................... : CHERYL OLVERA Date of ....... : 1990 Family Phys ................... : Phone .................. : [phone] Age ................................ : 30 Film# .................. .:[id number] Sex ................................. : M Unsigned transcriptions are preliminary reports and do not represent a medical or legal document CT LUMBAR SP W/O CONT [id number] COMPLETE:09/17/20 09:16 [id number] Reason(s): exacerbation of left lower back pain, [...] [address] [place] [address] PHONE: [phone] FAX: [phone] Name .................. : TOSIN WONG Cristino Acct Number.................. : [id number] ROOM. ................. : TR-07 Number ................... : [id number] Stay type ............. : E/R Discharge Date......... ... : Admit Date ......... : 09/17/20 Admit Phys .................... : CHERYL OLVERA Date of ....... : 1990 Family Phys ................... : Phone .................. : [phone] Age ................................ : 30 Film# .................. .:[id number] Sex ................................. : M Unsigned transcriptions are preliminary reports and do not represent a medical or legal document CT LUMBAR SP W/O CONT [id number] COMPLETE:09/17/20 09:16 [id number] Reason(s): exacerbation of left lower back pain, soft tissue swelling, spas DISCHARGED Page 2 of 2 Name Value Range Interpretation Code Description Data Marifer rce(s) Supporting Document(s) ID Date Data Source [id number] 09/17/2020 08:46:00 AM EST [facility] 1 OrderSheet [facility] Emergency Department [address] [place] [address] Phone #: [phone]- [phone] 09/17/2020 08:44 Patient: MARVIN LEAHY Sex: M [...] rce(s) Supporting Document(s) ID Date Data Source [id number] 09/17/2020 08:46:00 AM EST [facility] 1 Medication Reconciliation Report [facility] Emergency Department [address] [place] [address] Phone #: [phone] 09/17/2020 08:44 Patient: MARVIN LEAHY Sex: M [...] tablet. Refills: 0. Substitution permi tted.Pharmacy - [facility] [phone] ; [place] [address]. . -- Brant Luna M.D. Name Value Range Interpretation Code Description Data Marifer [facility](s) Supporting Document(s) ID Date Data Source [id number] 09/17/2020 08:46:00 AM [facility] 1 Medication Administration Record [facility] Emergency Department [address] [place] [address] Phone #: ext [phone] 09/17/2020 08:44 Patient: MARVIN LEAHY Sex: M [...] rce(s) Supporting Document(s) ID Date Data Source [id number] 09/17/2020 08:46:00 AM [facility] 1 General Instructions [facility] Emergency Department [address] [place] [address] Phone #: ext- [phone] 09/17/2020 08:44 Patient: MARVIN LEAHY Sex: M [...] 12 tablet. Refills: 0. Substitution permitted.Pharmacy - [facility] [phone] ; [place] [address]. .Follow-up:Return to the emergency department as needed. [...] to plan of care. 2 General Instructions [facility] Emergency Department [address] [place] [address] Phone #: ext- [phone] 09/17/2020 08:44 Patient: [...] can cause muscle spasm. 3 General Instructions [facility] Emergency Department [address] [place] [address] Phone #: ext- [phone] 09/17/2020 08:44 Patient: [...] and pain. Wrap the 4 General Instructions [facility] Emergency Department [address] [place] [address] Phone #: ext- [phone] 09/17/2020 08:44 Patient: [...] or are takingother medicines. You may use [id number] medicine as directed on the bottle to [...] any new findingsthat may affect your care.Call [phone] if any of the following occur: Trouble breathing Confusion Very drowsy or trouble awakening Fainting or loss of consciousness 5 General Instructions [facility] Emergency Department [address] [place] [address] Phone #: [phone]- [phone] 09/17/2020 08:44 Patient: MARVIN LEAHY Sex: M : 1990 Age: 30y Rapid or very slow heart rate Loss of bowel or bladder controlWhen to seek medical adviceCall your healthcare provider right away if any of these occur: Pain becomes worse or spreads to your legs Weakness or numbness in one or both legs Numbness in the groin or genital area [id number] [employer]. [address] [place] [address]. All rights reserved. This information is not [...] rce(s) Supporting Document(s) ID Date Data Source [id number] 09/17/2020 08:46:00 AM EST [facility] 1 Clinical Report - Nurses [facility] Emergency Department [address] [place] [address] Phone #: ext- [phone] 09/17/2020 08:44 Patient: [...] leg pain. 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 Emergency Department [address] [place] [address] Phone #: ext- [phone] 09/17/2020 08:44 Patient: [...] pedal pulses 3 Clinical Report - Nurses [facility] Emergency Department [address] [place] [address] Phone #: ext- [phone] 09/17/2020 08:44 Patient: [...] RR: 16. O2 saturation: 99%. --09:21 09/17/20 Victoria developmental education instructor VerónicaSHILPI Tech1 09:24 09/17/2020 Morphine IM 4 [...] Patient transported to radiology by wheelchair with pharmacy technician infusion. --09:35 09/17/20 Jennifer Nagy R.N. Patient returned by wheelchair with pharmacy technician infusion. --09:45 09/17/20 Jennifer Nagy R.N. 09:58 09/17/2020 [...] Nagy R.N. 4 Clinical Report - Nurses [facility] Emergency Department [address] [place] [address] Phone #: ext- [phone] 09/17/2020 08:44 Patient: MARVIN LEAHY Sex: M : 1990 Age: 30y 09:59 09/17/20. BP: 133/72. MAP: 92. HR: 66. RR: 16. O2 saturation: 100%. --09:59 09/17/20 Won Priceza Tech1 11:03 09/17/20. Reassurance given. Reassessment acuity: [...] RR: 16. O2 saturation: 100%. --11:06 09/17/20 Victoria [employer], [employer] Tech1.DISPOSITION / DISCHARGE 12:07 09/17/20. BP: 129/84. MAP: 99. HR: 57. RR: 16. O2 saturation: 99%. Temp: 98.1 F. Pain level now: 01/16. --12:07 09/17/20 Victoria Priceza Tech1 12:12 09/17/20. Departure time: 12:18 09/17/2020. [...] Patient verbalized understanding. Written instructions provided in [place]. The patient was discharged by the physician. He was discharged home. He left ambulatory and via private vehicle. Patient driving. --12:18 09/17/20 Tom English R.N. Reviewed rest and ice instructions. Activity restrictions (rest) reviewed. --12:20 09/17/20 Tom English R.N.Locked/Released at 09/17/2020 14:16 by Tom English R.N. Name Value Range Interpretation Code Description Data Marifer rce(s) Supporting Document(s) ID Date Data Source [id number] 09/17/2020 08:46:00 AM EST [facility] 1 Clinical Report - Physicians/Mid Levels [facility] Emergency Department [address] [place] [address] Phone #: ext- [phone] 09/17/2020 08:44 Patient: [...] Allergies: 2 Clinical Report - Physicians/Mid Levels [facility] Emergency Department [address] [place] [address] Phone #: ext- [phone] 09/17/2020 08:44 Patient: [...] improved; 3 Clinical Report - Physicians/Mid Levels [facility] Emergency Department [address] [place] [address] Phone #: ext- [phone] 09/17/2020 08:44 Patient: [...] tablet. Refills: 0. Substitution permitted. Pharmacy - [facility] [phone] ; [place] [address]. . Follow-up: Return to the emergency department [...] care. 4 Clinical Report - Physicians/Mid Levels [facility] Emergency Department [address] [place] [address] Phone #: ext- [phone] 09/17/2020 08:44 Patient: MARVIN LEAHY Sex: M : 1990 Age: 30y(Electronically signed by Brant Luna M.D. 09/17/2020 12:45) Name Value Range Interpretation Code Description Data Marifer rce(s) Supporting Document(s) ID Date Data Source [id number] 08/05/2020 02:51:00 [place] [address] Patient Name: Marvin Leahy Exam Date: 08/05/20 [...] receipt and understanding. Professional interpretation performed at [facility] . End of diagnostic report: [id number] Signed: Ilene Duong MD 08/05/20 1504 Interpreted by: Alber Duongribed by: Ilene Duong Name Value Range Interpretation Code Description Data Marifer rce(s) Supporting Document(s) ID Date Data Source [id number] 08/05/2020 12:44:00 PM EDT [facility] Has Patient Fasted For The Past 12 Hour s? N Name Value Range Interpretation Code Description Data Marifer rce(s) Supporting Document(s) WHITE BLOOD COUNT 6.31 10^3/uL 4.00-10.50 [facility] RED BLOOD COUNT 4.80 10^6/uL 4.30-5.80 [facility] HEMOGLOBIN 14.3 G/DL 13.0-17.5 N [facility] HEMATOCRIT 43.1 % 41.0-53.0 [facility] MCV 89.8 FL 80.0-100.0 [facility] MCH 29.8 PG 27.0-34.0 [facility]C 33.2 G/DL 32-36 [facility] RDW 11.9 % 11.5-14.5 [facility] PLATELET COUNT 147 10^3/uL 130-400 [facility] MPV 10.1 FL 8.7-13.2 N [facility] GRAN % (AUTO) 54.6 % 42.0-75.0 [facility] LYMPH % (AUTO) 32.6 % 20.0-51.0 N [facility] MONO % (AUTO) 10.3 % 2.0-15.0 N [facility] EOS % (AUTO) 1.7 % 0.0-11.0 N [facility] BASO % (AUTO) 0.5 % 0.0-2.0 N [facility] IG % (AUTO) 0.3 % 1.00-5.00 [facility] IG # (AUTO) 0.0 10^3/uL <0.5 [facility] GRAN # (AUTO) 3.44 10^3/uL 1.50-6.50 N [facility] LYMPH # (AUTO) 2.1 k/uL 1.0-5.0 N [facility] MONO # (AUTO) 0.65 k/uL 0.20-1.50 N [facility] EOS # (AUTO) 0.11 10^3/uL 0.00-1.10 [facility] BASO # (AUTO) 0.03 10^3/uL 0.00-0.20 N [facility] ID Date Data Source [id number] 08/05/2020 12:59:00 PM EDT [facility] Has Patient Fasted For The Past 12 Hour s? N Name Value Range Interpretation Code Description Data Marifer rce(s) Supporting Document(s) SODIUM 141 MEQ/L 135-145 N [facility] POTASSIUM 4.5 MEQ/L 3.5-5.3 N [facility] CHLORIDE 104 MEQ/L 94-110 N [facility] CARBON DIOXIDE 32 MEQ/L 22-33 N [facility] ANION GAP 10 5-16 N [facility] BLOOD UREA NITRO 15 MG/DL 7-25 N [facility] CREATININE 0.9 MG/DL 0.6-1.4 [facility] GFR > 90.0 ML/MIN [facility] Stage G1 - Normal or high [...] years only. BUN/CREAT RATIO 16 8-36 N [facility] GLUCOSE 70 MG/DL 70-100 [facility] CA 9.6 MG/DL 8.7-10.5 [facility] BILIRUBIN,TOTAL 0.8 MG/DL 0.1-1.3 [facility] AST 28 U/L 5-40 N [facility] ALT 36 U/L 5-48 [facility] ALKALINE PHOSPHATASE 84 U/L 40-140 N [facility] alth TOTAL PROTEIN 7.2 G/DL 5.9-8.3 N [facility] ALBUMIN 4.6 G/DL 3.0-5.1 [facility] GLOBULIN 2.6 G/DL 1.5-3.5 [facility] ALB/GLOB RATIO 1.8 G/DL 1.0-3.0 [facility] ID Date Data Source [id number] 08/05/2020 01:29:00 PM EDT [facility] Has Patient Fasted For The Past 12 Hour s? N Name Value Range Interpretation Code Description Data Marifer rce(s) Supporting Document(s) PROTHROMBIN TIME 12.4 SEC 8.9-13.3 [facility] INR 1.1 0.0-3.6 [facility] Therapeutic Values of INR are generally between 2.0-3.0 except for Prosthetic Valves (High Risk 2.5-3.5) The use of INR is restricted to patient on stable oral anticoagulant therapy. ID Date Data Source [id number] 08/05/2020 01:29:00 PM EDT [facility] Has Patient Fasted For The Past 12 Hour s? N Name Value Range Interpretation Code Description Data Marifer rce(s) Supporting Document(s) D-DIMER > 552 NG/ML 0-552 H [facility] ID Date Data Source [id number] 08/05/2020 12:12:00 [place] [address] Patient Name: Marvin Leahy Exam Date: 08/05/20 [...] the cervical spine. Professional interpretation performed at [facility] . End of diagnostic report: [id number] Signed: Marvin Rust MD 08/05/20 1230 Interpreted by: Marvin RustTranscribed by: Marvin Rust Name Value Range Interpretation Code Description Data Marifer rce(s) Supporting Document(s) ID Date Data Source [id number] 08/05/2020 12:12:00 [place] [address] Patient Name: Marvin Leahy Exam Date: 08/05/20 [...] the cervical spine. Professional interpretation performed at [facility] . End of diagnostic report: [id number] Signed: Marvin Rust MD 08/05/20 1230 Interpreted by: Marvin RustTranscribed by: Marvin Rust Name Value Range Interpretation Code Description Data Marifer rce(s) Supporting Document(s) ID Date Data Source [id number] 08/05/2020 11:47:00 [place] [address] HEALTH INFORMATION MANAGEMENT ED/ Physician Report : [id number] Signed with Casi Patient: Marvin Leahy Acct:[id number] Unit : [id number] : 1990 Arrival Date: 08/05/20 Age/Sex: 30 [...] a fall. Patient is currently admitted to [facility]. He states he went to the [...] back home. He has a sister in [place] History of Smoking/Tobacco Use: Never Smoker Alcohol [...] rce(s) Supporting Document(s) ID Date Data Source [id number] 07/29/2020 03:37:00 [place] [address] Patient Name: Marvin Leahy Exam Date: 07/29/20 [...] left wrist x-rays. Professional interpretation performed by [facility] . End of diagnostic report: [id number] Signed: Marvin Major MD 08/02/20 1627 Interpreted by: Marvin LuTranscribed by: Marvin Major Name Value Range Interpretation Code Description Data Marifer rce(s) Supporting Document(s) ID Date Data Source [id number] 07/29/2020 03:37:00 [place] [address] Patient Name: Marvin Leahy Exam Date: 07/29/20 [...] left hand x-rays. Professional interpretation performed by [facility] . End of diagnostic report: [id number] Signed: Marvin Major MD 08/02/20 1627 Interpreted by: Marvin MajorTranscribed by: Marvin Major Name Value Range Interpretation Code Description Data Marifer rce(s) Supporting Document(s) ID Date Data Source [id number]/29/2020 03:37:00 [place] [address] Patient Name: Marvin Leahy Exam Date: 07/29/20 [...] right wrist x-rays. Professional interpretation performed by [facility] . End of diagnostic report: [id number] Signed: Marvin Major MD 08/02/20 162 Interpreted by: Marvin MajorTranscribed by: Marvin Major Name Value Range Interpretation Code Description Data Marifer rce(s) Supporting Document(s) ID Date Data Source [id number]/29/2020 03:37:00 [place] [address] Patient Name: Marvin Leahy Exam Date: 07/29/20 [...] right hand x-rays. Professional interpretation performed by [facility] . End of diagnostic report: [id number] Signed: Marvin Major MD 08/02/20 1626 Interpreted by: Marvin RodasTranscribed by: Marvin Major Name Value Range Interpretation Code Description Data Marifer rce(s) Supporting Document(s) ID Date Data Source [id number] 07/29/2020 03:37:00 PM EDT [address] [address] Patient Name: Marvin Leahy Exam Date: 07/29/20 [...] cervical spine x-rays. Professional interpretation performed by [facility] . End of diagnostic report: [id number] Signed: Marvin Gaitan MD 08/02/20 1625 Interpreted by: Marvin MajorTranscribed by: Marvin Major Name Value Range Interpretation Code Description Data Marifer rce(s) Supporting Document(s) ID Date Data Source [id number] 06/05/2020 09:09:00 AM EDT [facility] Has Patient Fasted For The Past 12 Hour s? Y Has Patient Fasted For The Past 12 Hour s? Y Has Patient Fasted For The Past 12 Hour s? Y Has Patient Fasted For The Past 12 Hour s? Y Name Value Range Interpretation Code Description Data Marifer rce(s) Supporting Document(s) SODIUM 142 MEQ/L 135-145 N [facility] POTASSIUM 4.0 MEQ/L 3.5-5.3 N [facility] CHLORIDE 108 MEQ/L 94-110 N [facility] CARBON DIOXIDE 26 MEQ/L 22-33 N [facility] ANION GAP 12 5-16 N [facility] BLOOD UREA NITRO 9 MG/DL 7-25 [facility] CREATININE 1.0 MG/DL 0.6-1.4 N [facility] GFR > 90.0 ML/MIN [facility] Stage G1 - Normal or high [...] years only. BUN/CREAT RATIO 9 8-36 N [facility] GLUCOSE 95 MG/DL 70-100 N [facility] CA 9.7 MG/DL 8.7-10.5 [facility] BILIRUBIN,TOTAL 0.5 MG/DL 0.1-1.3 N [facility] AST 24 U/L 5-40 N [facility] ALT 36 U/L 5-48 [facility] ALKALINE PHOSPHATASE 68 U/L 40-140 [facility] alth TOTAL PROTEIN 7.0 G/DL 5.9-8.3 N [facility] ALBUMIN 4.7 G/DL 3.0-5.1 [facility] GLOBULIN 2.3 G/DL 1.5-3.5 [facility] ALB/GLOB RATIO 2.0 G/DL 1.0-3.0 [facility] ID Date Data Source [id number] 06/05/2020 09:09:00 AM Merged with [facility] Has Patient Fasted For The Past 12 Hour s? Y Has Patient Fasted For The Past 12 Hour s? Y Has Patient Fasted For The Past 12 Hour s? Y Has Patient Fasted For The Past 12 Hour s? Y Name Value Range Interpretation Code Description Data Marifer rce(s) Supporting Document(s) Vitamin D,25-HYDROXY 42.5 ng/ml 30-[address] [facility] ealt Vitamin D Status Range De ficiency <20 ng/ml Insufficiency 20-29.9 ng/ml Sufficiency 30-100 ng/ml Toxicity >100 ng/ml Patients should not be tested for 72 hours post fluorescein dye angiography. A false elevation of result may occur. ID Date Data Source [id number] 06/05/2020 09:09:00 AM Merged with [facility] Has Patient Fasted For The Past 12 Hour s? Y Has Patient Fasted For The Past 12 Hour s? Y Has Patient Fasted For The Past 12 Hour s? Y Has Patient Fasted For The Past 12 Hour s? Y Name Value Range Interpretation Code Description Data Marifer e(s) Supporting Document(s) T3FREE 3.6 PG/ML 2.3-4.2 [facility] ID Date Data Source [id number] 06/05/2020 09:09:00 AM EDT [facility] Has Patient Fasted For The Past 12 Hour s? Y Has Patient Fasted For The Past 12 Hour s? Y Has Patient Fasted For The Past 12 Hour s? Y Has Patient Fasted For The Past 12 Hour s? Y Name Value Range Interpretation Code Description Data Marifer rce(s) Supporting Document(s) TSH 1.864 uIU/ML 0.470-4.200 [facility] Patients should not be tested for 72 ho urs post fluorescein dye angiography. A false depression of result may occur. ID Date Data Source IMMUNOGLOBULIN E 03/09/2020 12:00:00 AM EDT eCW1 ([facility]) Name Value Range Interpretation Code Description Data Marifer rce(s) Supporting Document(s) 129.0 <100 IMMUNOGLOBULIN E eCW1 ([facility]) ID Date Data Source FREE T4 & TSH PANEL 03/09/2020 12:00:00 AM EDT eCW1 ([facility]) Name Value Range Interpretation Code Description Data Marifer rce(s) Supporting Document(s) 1.690 0.358-3.740 THYROID STIMULATING HORM ONE eCW1 ([facility]) 1.00 0.76-1.46 FREE T4 eCW1 ([facility]) ID Date Data Source ERYTHROCYTE SEDIMENTATION RATE 03/09/2020 12:00:00 AM EDT eC W1 ([facility]) Name Value Range Interpretation Code Description Data Marifer rce(s) Supporting Document(s) 3 0-15 ERYTHROCYTE SEDIMENTATION RATE eCW1 ([facility]) ID Date Data Source CBC with Differential 03/09/2020 12:00:00 AM EDT eCW1 ([facility]) Name Value Range Interpretation Code Description Data Marifer rce(s) Supporting Document(s) 4.3 4.0-10.0 WHITE BLOOD COUNT eCW1 ([facility]) 4.97 4.30-6.10 RED BLOOD COUNT eCW1 ([facility]) 14.9 13.5-17.5 HEMOGLOBIN eCW1 ([facility]) 44.2 42.0-52.0 HEMATOCRIT eCW1 ([facility]) 30.0 27.0-33.0 MEAN CORPUSCULAR HEMOGLOB IN eCW1 ([facility]) 88.9 80.0-96.0 MEAN CORPUSCULAR VOLUME e CW1 ([facility]) 12.7 11.5-14.5 RED CELL DISTRIBUTION WID TH eCW1 ([facility]) 33.7 32.0-36.5 MEAN CORPUSCULAR HGB CONC eCW1 ([facility]) 43.8 36.0-66.0 NEUTROPHILS % eCW1 ([facility]) 181 150-450 PLATELET COUNT, AUTOMATED eCW1 ([facility]) 45.3 24.0-44.0 LYMPH % eCW1 ([facility]) 7.9 0.0-5.0 MONO % eCW1 ([facility]) 0.5 0.0-1.0 BASO % eCW1 ([facility]) 2.3 0.0-3.0 EOS % eCW1 ([facility]) 2.0 1.5-5.0 LYMPH # eCW1 ([facility]) 1.9 1.5-8.5 NEUTROPHILS # eCW1 ([facility]) 0.3 0.0-0.8 MONO # eCW1 ([facility]) 0.1 0.0-0.5 EOS # eCW1 ([facility]) 0.0 0.0-0.2 BASO # eCW1 ([facility]) ID Date Data Source [id number] 03/08/2020 09:55:59 AM EDT [facility] Name Value Range Interpretation Code Description Data Marifer rce(s) Supporting Document(s) Progress Note [facility] DXBBZw5yXfUKAmPu28/VOVyeXRHrc6LgOFicCZb4PHgjUONnZ3WjPPX6lP1gXRY5EQqZWpUqFoIxCQTu lbm [file] AgICAgICAgICAgICAgICAgICAgICAgICAgICAgICAgICAgICAgICAgICAgICAgICAgICAgICAgICANCi AgICAgICAgICAgICAgICAgICAgICAgICAgICAgICAg ICAgICAgICAgICAgICAgICAgICAgICAgICAgICAgICAgICAgICAgICAgICAgICAgICAgICAgICAgICAg ICAgICAgICANCiAgICAgICAgICAgICAgICAgICAgICAgICAgICAgICAgICAgICAgICAgICAgICAgICAg ICAgICAgICAgICAgICAgICAgICAgICAgICAgICAgIC AgICAgICAgICAgICAgICAgICANCiAgICAgICAgICAgICAgICAgICAgICAgICAgICAgICAgICAgICAgIC AgICAgICAgICAgICAgICAgICAgICAgICAgICAgICAgICAgICAgICAgICAgICAgICAgICAgICAgICAgIC ANCiAgICAgICAgICAgICAgICAgICAgICAgICAgICAg ICAgICAgICAgICAgICAgICAgICAgICAgICAgICAgICAgICAgICAgICAgICAgICAgICAgICAgICAgICAg ICAgICAgICAgICANCiAgICAgICAgICAgICAgICAgICAgICAgICAgICAgICAgICAgICAgICAgICAgICAg ICAgICAgICAgICAgICAgICAgICAgICAgICAgICAgIC AgICAgICAgICAgICAgICAgICAgICANCiAgICAgICAgICAgICAgICAgICAgICAgICAgICAgICAgICAgIC AgICAgICAgICAgICAgICAgICAgICAgICAgICAgICAgICAgICAgICAgICAgICAgICAgICAgICAgICAgIC AgICANCiAgICAgICAgICAgICAgICAgICAgICAgICAg ICAgICAgICAgICAgICAgICAgICAgICAgICAgICAgICAgICAgICAgICAgICAgICAgICAgICAgICAgICAg ICAgICAgICAgICAgICANCiAgICAgICAgICAgICAgICAgICAgICAgICAgICAgICAgICAgICAgICAgICAg ICAgICAgICAgICAgICAgICAgICAgICAgICAgICAgIC AgICAgICAgICAgICAgICAgICAgICAgICANCiAgICAgICAgICAgICAgICAgICAgICAgICAgICAgICAgIC AgICAgICAgICAgICAgICAgICAgICAgICAgICAgICAgICAgICAgICAgICAgICAgICAgICAgICAgICAgIC AgICAgICANCjw/yUTlP2milWBkoxU9G6wgYg4POd5N NR2wr5WiCRAjLHzjkgWoLhyVDoUgXWWqNznUOxz5GTmjZE6VsFIjE0VeV2XaYQjpDQ3ZLCYzREZgyWIe IOJqTFVdUmV7QLAoVZrdYG2CwJGgZFwfGXXtINYvRpIcUDDpLU9IWVSqR044wvYpIj2RGj5NItAtII7e ew8HFjYdZAQeKcaBJxy9EEgcYH3BiQYgiVXoUhBfGB GTTwMnC5sgx3WhZyFcFYEYBRbcAU3He0LsxIVhRQn+It1RYS2of7KfNCroOcBwTH5hja9DBGhCFoWsK5 JubEcgYDHbj5ftBXCpQA8niJOfIFY8WOceUpMMnpLmw2MdvCpuHGLeBREeEJ0zZB9nQPBoPKJlSaHnKX FJIQ9SBGZjSXWjoFYlBOFlOGSEXY8FDUxdFWZ7PIBs vwVdmTIeEDpzOR2WEAWfsxUtZiBhKNQZXHy+Ba4SRJ1mt0UbBPonYcMhTW1vbq4SADnMHdGuN9L1tQFb H6B2KAppIe2XVQOcJEJuQOgsRBKWAFzpQK7DBA5uzjT9QM5WsEEvHMXrARZrxRRrBJc7V28itHYvEXsz AU4BJMI+Jayla+Da1DLPMuENPxSUJeSnLnAGUZQsYcL0 IoQ8ETf7HmX8TlDB71vNkpbhBoGXgmZN9TZS5xLWHwKDXMRF4PpJBdcM5ovkXvNGCcFEGGKsZkS75arX PfXSMxSIZtDKRkVn7CEMWaE1SnuiHguRxquwAqVBYiJKUMDQ8IDTbdcvBqiZUvrYxwZR24qQqiJS2GIa 4GQrWxFI8bde2IqJLeAv4OSMMpEW3RTRLxMYDzZMNs KTH4WNPrZvEsFFfoPKGaKUNxPHW1PFEmAFWoIR3JHoGhLIZlHNn4GAQgPJYrFHLjkk7QGHOyKMCwTIQd RvUhKHRcAHGkFGffDUJhSFXkTQS1EKEfQSMuDG2ERnJiGRGfTIRjFcSxKOSsXICery1VEORaVWDoLtJi HGQtYQFlUKSxNHxpDTXuPSF4BgF4PLNkEVWtPL5ZBz AsDIVvCRN6MCPuXHJhOOMuhr8HABArRVVtNMj4LTAhIWYhEDUiOSfaJTIbEFX2EKc3MOHnDMScMK8SCk SvMPDcXRSzKwUrBURrMKDynt1ASDIrOEZrYzMoLTWdDBUvBOSoSGazSFXvCEA9BrL8EAXgHKQiJW5FYn WqVUScVZc6CrMjUAInCRIapz9TERKqFQHjCBz9XBYk UFCiJBSsTElfOMYuPYZ7UXu5BTUqPQDcDC1DQaTvDHVhSXl7KCPbZFFfRAAxnq1YXSZaTRSeLRR5DCQk WWQnFMVzZNykEOQbRGG6EakkAHHgJJXsQJ4DCiIbTIPvSqZtKXHgCOZtGNNhko0BJFZnHGNqHLMhWiRt ZKDhOXJrCHwgVTTaWANtRsI7OFHnNCOfBI6VOmEfBW BiMqJ8NNWaJSZzKNAocq9NsLGzdBfdug9MNJlEPq1YyCwoVWR1DLcmKz0faBKqBkUqUEWYMy4AxtJhZZ VpCQWDPMtjWZJfPUT5QKT2PHC1UwPiCXE6K6VyT8CtVySnPxVsXjR9BqjwSdL2OCTjUDR1MGDtPWD6PJ qvZbE8KCY7QhDgTbX7SlPdRRZ+HS9tRMz+Jn7Jd7UrosN1ckEfPUtoZgH9HW8IUJCHL6UANg== ID Date Data Source [id number] 01/09/2020 01:34:51 PM EST [facility] Name Value Range Interpretation Code Description Data Marifer rce(s) Supporting Document(s) Progress Note [facility] VUHUUg1sGmIWYuTa99/NSApsMSEkt1OjGQvoCFv0DKljULXbS3PuYOS9xY7fSZR0XBdHZzSjSgVnOvDv lbm [file] Y5CrDvWY8MKd3EQfX4UMQ8pYEzXj7IBbNmRwWRJrNuUJ3XAHp= ID Date Data Source [id number] 12/09/2019 06:52:09 PM [facility] Name Value Range Interpretation Code Description Data Marifer rce(s) Supporting Document(s) Hematocrit [Volume Fraction] of Blood by Automated count 45.0 % 4 1-53 [facility] ID Date Data Source [id number] 12/09/2019 07:28:[address] [facility] Name Value Range Interpretation Code Description Data Marifer rce(s) Supporting Document(s) Prolactin [Mass/volume] in Serum or Plasma 20.8 ng/ml 4.0-15.2 H [facility] ID Date Data Source [id number] 12/09/2019 08:18:[address] [facility] Name Value Range Interpretation Code Description Data Marifer rce(s) Supporting Document(s) Prostate Specific Ag Free/Prostate specific Ag.total i n Serum or Plasma 0.3 ng/mL <4.0 [facility] Serum levels of PSA should not be interp reted as absolute evidence of the presence or absence of Cancer. Results obtained with different methods cannot be used interchangeably. This method is manufactured by [employer] and is an electrochemiluminesence immunoassay. ID Date Data Source [id number] 12/08/2019 05:58:55 PM [facility] Value Range Interpretation Code Description Data Marifer rce(s) Supporting Document(s) Reference lab test name [facility] PER NATIV[facility] HUMZA ON CREDIT SHEET 8049 Reference lab name [Identifier] [facility] PER [facility] DIEGO ON CREDIT SHEET 8049 Service comment [facility] 8049 ID Date Data Source [id number] 12/08/2019 10:14:35 AM [facility] Value Range Interpretation Code Description Data Marifer rce(s) Supporting Document(s) Progress Note [facility] HALFLr6bSiWCHrZj84/PRGfaKBLrv1BwLPouHZw5GNvaSYWmP2WsGKW1dT6iTNH2JDeYGtQyZaCaFPXc lbm YdCjfFTuZyXCUfPqsVLgCdJZmxRimefLLeHF8YgDI2ZJOfR72lSXMtABWcU1ObGXP2ADR+Rg6THWPkqA MfLS6LUruW6I9krvw3Ak0ecX0SyTCeUGM5lKTgOwZYBtpMrRFqPFxfO4H/tO8bk1B27+46F//7zvsOGf nxalZj+9b2a9Sr2vvpHmFGjONPsSPz/8lT4UdQY/J/ mz/ERSadsqz361YkERTlytJ/gpnVT7JQlFU6ZenDcy+/8EQC1W4dNOCVGE+yefdPXM95RehPXZ3g/Jones [file] ubKAptJHQDSv5H ID Date Data Source [id number]/16/2019 11:03:[address] [facility] Cytogenetics ReportName: CYN LEAHY EWMRN: [id number] Number: [id number] Date: 12/08/2019 00:00Received Date: [...] is indicated.Electronically Signed By Bridger Hernandez, Ph.D., [facility], Director ofCytogenetics 12/16/2019 11:03:52DATA: METAPHASES COUNTED AND ANALYZED: 20 METAPHASES KARYOTYPED: 2BAND RESOLUTION: 650-750ISCN Nomenclature: 47,XXY Name Value Range Interpretation Code Description Data Marifer rce(s) Supporting Document(s) ID Date Data Source [id number] 12/12/2019 04:08:[address] [facility] Molecular Genetics ReportName: FE LEAHY: [id number] Number: [id number] Date: 12/08/2019 00:00Received Date: [...] reflex tested only in individuals with the Y476Pvgnzsfqw and so was not tested in this [...] inCBAVD will not be detected by the [employer] Cystic fibrosis 60 assaysince it is designed for CF carrier testing and confirmatory diagnostictesting. Cystic fibrosis is an autosomal recessive genetic disorder andboth parents of an affected child should be carriers of the disease. While more than 2,000 CFTR mutations have been described, the 60 CFTRmutations tested have a combined detection rate of about 90% of the CFchromosomes found in the [place] population. The detection rate isdependent upon the racial/ethnic ancestry and is typically lower. Mutations have been classified according to GenBank Legacy mutation names have been used - please contact the labregarding more recent changes to the nomenclature if needed.METHODS: DNA isolated from the patient was tested using the gopogoystic fibrosis 60 kit v2 IVD assay which includes the 23 ACMG- recommendedmutations (in bold) plus additional global and/or [place] prevalentmutations: Delta F508, Delta I507, G542X, G85E, R117H, 621+1G>T,711+1G>T, R334W, R347P, A455E, 1717-1G>A, R560T, R553X, G551D, 1898+1G>A,2184delA, 2789+5G>A, 3120+1G>A, P6778A, 3659delC, 3849+10KbC>T, K7313Z,L1077R, 1078delT, 394delTT, Y122X, R347H, V520F, A559T, S549N, S549RT>G,1898+5G>T, 2183AA>G, 2307insA, E7692RM>A, K3603GX>G, B1899B, D4376M (ex.19[W5482W]), K3442F (ex. 20), 3876delA, 3905insT, E60X, R75X, 406- 1G>A,G178R, L206W, 935delA, G330X, Q493X, 1677delTA, 8765eci5>A, 2143delT,K710X, 3791delC, Q890X, 2056srz2, U7238M, Y6136E, J5509N, N8514T,CFTRdele2,3 and L4552R. In addition, the IVS8-5T/7T/9T variant is reflextested only in individuals with the R117H mutation and the F508C, R566Rufu I506V variants are only reflex tested in individuals with a Delta F508or Delta I507 mutation. This test is intended for CF carrier testing andconfirmatory diagnostic testing and should be used in conjunction withother available laboratory and clinical information. The laboratory maintains quality assurance clerk and machined parts quality inspector programs toensure a high quality of testing. [...] and Addy Fournier (2004) International Journal of Ttepcsjcc85:251-256Waluisa MADRID et al (2004) Genetics in medicine 6(5):387-91Yu J et al (2012) Human Reproduction 27(1):25- 35http://[email or web address] Electronically Signed By Rudy Hall, Ph.D., [facility] MolecularGeneticist 12/12/2019 16:08:50 Name Value Range Interpretation Code Description Data Marifer rce(s) Supporting Document(s) Procedure Social History Code Duration Value Status Description Data Source(s ) Alcohol intake 11/22/2020 12:00:00 AM EST Current drinker of al cohol (finding) completed Current drinker of alcohol (finding) [facility] Tobacco use and exposure 11/22/2020 12:00:00 AM EST Never used co mpleted Never used [facility] Smoking 11/22/2020 12:00:00 AM EST Never smoker completed Never s [facility] Smoking 11/15/2020 12:00:00 AM EST Never Smoker completed Never S [facility] [id number] ([facility], [facility]) Smoking 10/30/2020 12:00:00 AM EST Never Smoker completed Never S moker eCW1 ([facility]) Smoking 10/30/2020 12:00:00 AM EST Never Smoker completed Never S moker eCW1 ([facility]) Smoking 10/18/2020 12:00:00 AM EST Never Smoker completed Never S moker eCW1 ([facility]) Smoking 10/18/2020 12:00:00 AM EST Never Smoker completed Never S moker eCW1 ([facility]) Smoking 10/18/2020 12:00:00 AM EST Never Smoker completed Never S moker eCW1 ([facility]) Alcohol intake 03/08/2020 12:00:00 AM EDT Current drinker of al cohol (finding) completed Current drinker of alcohol (finding) [facility] Smoking 03/08/2020 12:00:00 AM EDT Never smoker completed Never [facility] Alcohol intake 01/09/2020 12:00:00 AM EST Current drinker of al cohol (finding) completed Current drinker of alcohol (finding) [facility] Smoking 01/09/2020 12:00:00 AM EST Never smoker completed Never s [facility] Alcohol intake 12/08/2019 12:00:00 AM EST Current drinker of al cohol (finding) completed Current drinker of alcohol (finding) [facility] Smoking 12/08/2019 12:00:00 AM EST Never smoker completed Never [facility] Vital Signs ID Date Data Source UNK Name Value Range Interpretation Code Description Data Source(s) Oxygen saturation in Arterial blood by Pulse oximetry 98 % 98 % PING (Dylan Shi MD) Heart rate 95 /min 95 /min PING (Dylan Shi MD) Diastolic blood pressure 92 mm[Hg] 92 mm[Hg] PING (Dylan Shi MD) Systolic blood pressure 133 mm[Hg] 133 mm[Hg] M EDSHAORN (Dylan Shi MD) Body temperature 97.9 [degF] 97.9 [degF] PING (Dylan Shi MD) Body mass index (BMI) [Ratio] 32.4 kg/m2 32.4 k g/m2 MEDENT (Dylan Shi MD) Body weight 213.00 [lb_av] 213.00 [lb_av] MU T (Dylan Shi MD) Body height 68 [in_i] 68 [in_i] PING (Dylan Shi MD) 5'8" Diastolic blood pressure 75 mm[Hg] 75 mm[Hg] eCW1 ([facility]) Systolic blood pressure 113 mm[Hg] 113 mm[Hg] e CW1 ([facility]) Body mass index (BMI) [Ratio] 31.93 kg/m2 31.93 kg/m2 W1 ([facility]) Body height 68 [in_i] 68 [in_i] eCW1 ([facility]) Body weight 210 [lb_av] 210 [lb_av] eCW1 ([facility]) Oxygen saturation in Arterial blood by Pulse oximetry 97 % 97 % MEDENT ([facility]) Respiratory rate 20 /min 20 /min MEDENT ( [facility]) Heart rate 79 /min 79 /min MEDENT ([facility]) Diastolic blood pressure 75 mm[Hg] 75 mm[Hg] MEDENT ([facility]) Systolic blood pressure 133 mm[Hg] 133 mm[Hg] M EDENT ([facility]) Oxygen saturation in Arterial blood [...] blood pressure 78 mm[Hg] 78 mm[Hg] eCW1 ([facility]) Systolic blood pressure 122 mm[Hg] 122 mm[Hg] e CW1 ([facility]) Body mass index (BMI) [Ratio] 31.44 kg/m2 31.44 kg/m2 W1 ([facility]) Body height 68 [in_i] 68 [in_i] eCW1 ([facility]) Body weight 206.8 [lb_av] 206.8 [lb_av] eCW1 ([facility]) Diastolic blood pressure 72 mm[Hg] 72 mm[Hg] eCW1 ([facility]) Systolic blood pressure 112 mm[Hg] 112 mm[Hg] e CW1 ([facility]) Body mass index (BMI) [Ratio] 31.56 kg/m2 31.56 kg/m2 [facility] Heart1 ([facility]) Body height 68 [in_i] 68 [in_i] eCW1 ([facility]) Body weight 207.6 [lb_av] 207.6 [lb_av] eCW1 ([facility]) Body surface area Derived from formula 2.04 m2 2.04 m2 MEDENT ([facility]) Body mass index (BMI) [Ratio] 30.4 kg/m2 30.4 k g/m2 MEDENT ([facility]) Body height 68 [in_i] 68 [in_i] MEDENT ([facility]) 5'8" Body weight 90.833 kg 90.833 kg MEDENT ([facility]) Body weight 200.25 [lb_av] 200.25 [lb_av] MEDEN T ([facility]) Oxygen saturation in Arterial blood by Pulse oximetry 98 % 98 % [facility] ([facility]) Respiratory rate 16 /min 16 /min MEDENT ( [facility]) Body temperature 97.8 [degF] 97.8 [degF] MEDENT ([facility]) Heart rate 87 /min 87 /min MEDENT ([facility]) Diastolic blood pressure 82 mm[Hg] 82 mm[Hg] MEDENT ([facility]) Systolic blood pressure 110 mm[Hg] 110 mm[Hg] M EDENT ([facility]) Body mass index (BMI) [Ratio] 31.77 kg/m2 31.77 kg/m2 eCW1 ([facility]) Body height 68 [in_us] 68 [in_us] eCW1 ([facility]) Body weight Measured 209 [lb_av] 209 [lb_av] eC W1 ([facility]) Diastolic blood pressure 68 mm[Hg] 68 mm[Hg] eCW1 ([facility]) Systolic blood pressure 104 mm[Hg] 104 mm[Hg] e CW1 ([facility]) Body mass index (BMI) [Ratio] 32.02 kg/m2 32.02 kg/m2 eCW1 ([facility]) Body height 68 [in_us] 68 [in_us] eCW1 ([facility]) Body weight Measured 210.6 [lb_av] 210.6 [lb_av ] eCW1 ([facility]) Oxygen saturation in Arterial blood by Pulse oximetry 96 % 96 % MEDENT ([facility] ) Body mass index (BMI) [Ratio] 29.8 kg/m2 29.8 k g/m2 MEDENT ([facility] ) Body weight 193.00 [lb_av] 193.00 [lb_av] MEDEN T ([facility]) Body height 67.5 [in_i] 67.5 [in_i] MEDENT ([facility]) 5'7.50" Heart rate 71 /min 71 /min MEDENT ([facility]) Diastolic blood pressure 72 mm[Hg] 72 mm[Hg] MEDENT ([facility]) Systolic blood pressure 120 mm[Hg] 120 mm[Hg] M EDENT ([facility] ) Diastolic blood pressure 62 mm[Hg] 62 mm[Hg] eCW1 ([facility]) Systolic blood pressure 116 mm[Hg] 116 mm[Hg] e CW1 ([facility]) Body temperature 97.4 [degF] 97.4 [degF] eCW1 ( [facility]) Respiratory rate 18 /min 18 /min eCW1 ([facility]) Heart rate 88 /min 88 /min eCW1 ([facility]) Body mass index (BMI) [Ratio] 30.83 kg/m2 30.83 kg/m2 eCW1 ([facility]) Body height 68 [in_us] 68 [in_us] eCW1 ([facility]) Body weight Measured 202.8 [lb_av] 202.8 [lb_av ] eCW1 ([facility]) Diastolic blood pressure 60 mm[Hg] 60 mm[Hg] eCW1 ([facility]) Systolic blood pressure 114 mm[Hg] 114 mm[Hg] e CW1 ([facility]) Body temperature 97.5 [degF] 97.5 [degF] eCW1 ( [facility]) Respiratory rate 16 /min 16 /min eCW1 ([facility]) Heart rate 85 /min 85 /min eCW1 ([facility]) Body mass index (BMI) [Ratio] 29.65 kg/m2 29.65 kg/m2 eCW1 ([facility]) Body height 68 [in_us] 68 [in_us] eCW1 ([facility]) Body weight Measured 195 [lb_av] 195 [lb_av] eC W1 ([facility]) ID Date Data Source [id number] 12/13/2020 09:40:47 AM [facility] Name Value Range Interpretation Code Description Data Source(s) WEIGHT RECORDED 207.00 pounds 207.00 pounds [facility] Height 68 Inches 068 Inches [facility] ID Date Data Source [id number] 12/16/2019 11:04:[address] [facility] Name Value Range Interpretation Code Description Data Source(s) WEIGHT RECORDED 203 lb 203 lb [facility] Body height Measured 68 in 68 in [facility] Patient Treatment Plan of Care Planned Activity Planned Date Details Description Data Source (s) HM LIDOCAINE PATCH EX 11/07/2020 12:00:00 AM [facility] Escitalopram 20 MG Oral Tablet 11/07/2020 12:00:00 AM [facility] Trazodone Hydrochloride 50 MG Oral Tablet 11/07/2020 12:00:00 AM [facility] apixaban 5 MG Oral Tablet 11/07/2020 12:00:00 AM [facility] Xolair 150 MG/ML 10/19/2020 12:00:00 AM EST eCW1 ([facility]) Xolair 150 MG/ML 10/19/2020 12:00:00 AM EST eCW1 ([facility]) Xolair 150 MG/ML 10/19/2020 12:00:00 AM EST eCW1 ([facility]) Betamethasone 0.0005 MG/MG Augmented Topical Ointment 03/23/2020 12:00:00 AM EDT eCW1 ([facility]) Ivermectin 3 MG Oral Tablet 03/09/2020 12:00:00 AM EDT eCW1 ([facility]) cetirizine hydrochloride 10 MG Oral Tablet 03/09/2020 12:00:00 AM E DT eCW1 ([facility]) Syringe/Needle (Disp) 22G X 1-1/2" 1 ML (Tasneem anderson) 01/09/2020 12:00:[address] [facility] Chorionic Gonadotropin 72143 UNT/ML Injectable Solutio n 01/06/2020 12:00:[address] [facility] Chorionic Gonadotropin 36585 UNT/ML Injectable Solutio n 12/09/2019 12:00:[address] [facility] cetirizine hydrochloride 10 MG Oral Tablet [Zyrtec] 11/22/19 12:00:00 AM EST eCW1 ([facility]) mometasone furoate 1 MG/ML Topical Cream 11/22/2019 12:00:00 AM EST eCW1 ([facility])
[2020-12-27] MEDS ORDERED: MIDO5TA PO (20:52)
[2020-12-27] MEDS ORDERED: ZOFR4TAB16 PO (20:52)
[2020-12-27] MEDS ORDERED: CEFD1CAP8 PO (20:52)
[2020-12-27] MEDS ORDERED: FLOM0.4C39 PO (20:52)
[2020-12-27] MEDS ORDERED: GABA-1171 PO (20:52)
[2020-12-27 20:56] VITALS: BP 140/75
[2020-12-27] MEDS ORDERED: **NOTE PATIENT COMMENT** MISC XX SCH (21:00)
[2020-12-27] MEDS ORDERED: ESCITALOPRAM OXALATE 10 MG TAB (LEXAPRO) PO SCH (21:00)
[2020-12-27] MEDS ORDERED: traZODone 50 MG TAB PO SCH (21:00)
[2020-12-27] MEDS: APIXABAN 5 MG TAB (ELIQUIS) PO SCH (21:46)
[2020-12-27] MEDS: NICOTINE 21MG/24HR 1 EA TRANSDERMAL TD SCH (21:47)
[2020-12-28 06:28] VITALS: BP 154/68
[2020-12-28] MEDS: NICOTINE 21MG/24HR 1 EA TRANSDERMAL TD SCH (08:57)
[2020-12-28] MEDS: APIXABAN 5 MG TAB (ELIQUIS) PO SCH (08:59)
[2020-12-28] MEDS ORDERED: LIDOCAINE 5% (LIDODERM) PATCH TD SCH (09:00)
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
--- NOTE | 2020-12-28 14:53 | HPEPDOC ---
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 Depression, admitted to the inpatient mental health unit for depression. He denies any fever, chills, changes in vision,appetite, bowelhabits, weight, cp,pressure, sob ,palpitatoins, sob , cough, n/v/abd pain, dysuria, urgency, frequency, sore throat, dysphagia, odynophagia, ear pain/discharge/vertigo, UE/LE weakness/paresthesias, insomnia, polysomnia, polyphagia, polydipsia, polyuria, increased calf size, edema, tenderness. no other c/o. 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 PAST SURGICAL HISTORY: none SOCIAL HISTORY: Denies IV drug use, alcohol, tobacco abuse, FAMILY HISTORY: No history of hypercoagulable state in both parents and siblings ALLERGIES: Please see below. REVIEW OF SYSTEMS: 12 point review of systems negative aside from positive findings in HPI HOME MEDICATIONS: Please see below. PHYSICAL EXAMINATION: VITAL SIGNS: See below GENERAL APPEARANCE: Awake, alert, oriented times ransom questions appropriately. Moist mucous membranes. No icterus, jaundice, pallor HEENT: No thyromegaly, cervical lymphadenopathy or JVD. No carotid bruit or stridor CARDIOVASCULAR: S1, S2, regular rate rhythm, no murmurs, rubs or gallops LUNGS: Clear to auscultation. Wheezing rales or rhonchi and air entry is equal bilaterally ABDOMEN: Positive bowel sounds, soft, nontender, nondistended, positive bowel sounds. No rebound or guarding EXTREMITIES: No cyanosis, clubbing or pitting edema LABORATORY DATA: See below. 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 Depression, admitted to the inpatient mental health unit for depression. 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 Outpatient follow- up with medical oncology at the [facility] at hospital discharge Klinefelter syndrome -Chronic History of filariasis -Resolved Hospitalist service will sign off. Please reconsult them, [place] office for any new acute medical issues. Patient is encouraged to ambulate and to continue a full 6 months of anticoagulation. Vital Signs Vital Signs Date Time Temp Pulse Resp B/P (MAP) Pulse Ox O2 Delivery O2 Flow Rate FiO2 12/28/20 06:28 98.7 69 14 154/68 (96) 97 Room Air Laboratory Data Labs 24H Laboratory Tests 2 12/27/20 17:36: Nucleated Red Blood Cells % (auto) 0.0, Anion Gap 7L, Glomerular Filtration Rate > 60.0, Calcium Level 8.8, Total Bilirubin 0.5, Direct Bilirubin 0.1, Aspartate Amino Transf (AST/SGOT) 34, Alanine Aminotransferase (ALT/SGPT) 64, Alkaline Phosphatase 66, Total Protein 7.5, Albumin 3.7, Albumin/Globulin Ratio 1.0, Thyroid Stimulating Hormone (TSH) 2.190, Salicylates Level < 1.7L, Urine Opiates Screen POSITIVEH, Urine Methadone Screen NEGATIVE, Acetaminophen Level < 2.0L, Urine Barbiturates Screen NEGATIVE, Urine Phencyclidine Screen NEGATIVE, Urine Amphetamines Screen NEGATIVE, Urine Benzodiazepines Screen NEGATIVE, Urine Cocaine Metabolite Screen NEGATIVE, Urine Cannabinoids Screen NEGATIVE, Ethyl Alcohol Level < 0.003 12/27/20 18:00: Urine Color STRAW, Urine Appearance CLEAR, Urine pH 8.0, Urine Specific [place] 1.009, Urine Protein NEGATIVE, Urine Glucose (UA) NEGATIVE, Urine Ketones NEGATIVE, Urine Blood NEGATIVE, Urine Nitrite NEGATIVE, Urine Bilirubin NEGATIVE, Urine Urobilinogen 0.2, Urine Leukocyte Esterase NEGATIVE, Urine WBC (Auto) 1, Urine RBC (Auto) 0, Urine Hyaline Casts (Auto) 0, Urine Bacteria (Auto) NEGATIVE, Urine Squamous Epithelial Cells 0, Urine Sperm (Auto) CBC/BMP Laboratory Tests 12/27/20 17:36 Microbiology Microbiology 12/27/20 Respiratory Virus Panel (PCR) (JAXSON) - Final, Complete Home Medications Scheduled Apixaban (Eliquis) 5 Mg Tablet, 5 MG PO BID Cefdinir (Cefdinir) 300 Mg Capsule, 300 MG PO DAILY Escitalopram Oxalate (Lexapro) 20 Mg Tablet, 10 MG PO BID Gabapentin (Gabapentin) 100 Mg Capsule, 100 MG PO TID Midodrine HCl (Midodrine HCl) 5 Mg Tablet, 5 MG PO TID Tamsulosin HCl (Flomax) 0.4 Mg Capsule, 0.4 MG PO DAILY Scheduled PRN Acetaminophen (Acetaminophen) 500 Mg Tablet, 500 MG PO Q6H PRN for PAIN / FEVER Ondansetron HCl (Zofran) 4 Mg Tablet, 4 MG PO Q8H PRN for NAUSEA OR VOMITING Allergies Coded Allergies: SEAFOOD (Verified Allergy, Severe, facial swelling, 04/18/20) anaph shellfish derived (Verified Allergy, Unknown, facial swelling, 07/26/20) A-FIB/CHADSVASC A-FIB History Current/History of A-Fib/PAF?: No Current PO Anticoag Therapy: No Age/Risk Factor Scoring CHADSVASC: CHADSVASC Response (Comments) Value Age Risk Factor Age < 65 years old 0 Gender Risk Factor Male 0 Hx of CHF No 0 Hx of HTN No 0 Hx of Stroke/TIA/or VTE No 0 Hx of Diabetes No 0 Hx of Vascular Disease No 0 Total 0 Treatment Treatment ordered: NONE DAYLIN NETTLES MD Dec 28, 2020 11:33
== END 2020-12-28 13:12 | disposition home or self-care (01) | DRG 885 ==
LOC: M ED 14:43 → M ED INP 19:40 → M PSY 20:56
PROVIDERS: ADMIT Psychiatry & Neurology Psychiatry; ATTEND Psychiatry & Neurology Psychiatry
DX: F33.1 Major depressive disorder, recurrent, moderate (principal); F41.1 Generalized anxiety disorder; N20.0 Calculus of kidney; Z79.01 Long term (current) use of anticoagulants; Z79.899 Other long term (current) drug therapy; Z91.5 Personal history of self-harm; Z86.718 Personal history of other venous thrombosis and embolism; Q98.4 Klinefelter syndrome, unspecified; Z56.4 Discord with boss and workmates

== ENCOUNTER 2021-01-22 04:05 | Emergency (ER) | payer OTHER ==
[~2021-01-22] VITALS: Ht 172.7 cm; Wt 93.2 kg
[~2021-01-22 04:05] MED LIST changes: +CEFD1CAP8 PO; +FLOM0.4C39 PO; +GABA-1171 PO; +MIDO5TA PO; +ZOFR4TAB16 PO
[2021-01-22] MEDS ORDERED: NS 1,000 ML IV ONE (04:50)
[2021-01-22] MEDS ORDERED: MORPHINE 4 MG/ML 1ML VIAL/SYRINGE (J2270) IV ONE (04:50)
[2021-01-22] MEDS ORDERED: ONDANSETRON 4MG/2ML VIAL IV ONE (04:50)
[2021-01-22] MEDS ORDERED: HYDR-3713 PO (05:52)
[2021-01-22] MEDS ORDERED: IBUP80TA PO (05:52)
[2021-01-22] MEDS ORDERED: fentaNYL 100 MCG/2 ML INJECTION (J3010) IV ONE (05:55)
[2021-01-22] MEDS ORDERED: KETOROLAC 30 MG/ML 1ML VIAL IV ONE (05:55)
[2021-01-22] MEDS ORDERED: TAMSULOSIN 0.4 MG CAP PO ONE (06:00)
--- NOTE | 2021-01-22 06:00 | REPVR ---
PROCEDURE INFORMATION: Exam: CT Abdomen And Pelvis Without Contrast Exam date and time: 01/22/2021 5:06 AM Age: 30 years old Clinical indication: Abdominal pain; Flank; Left; Prior surgery; Surgery date: <1 month; Additional info: Recent ureteral stent placement TECHNIQUE: Imaging protocol: Computed tomography of the abdomen and pelvis without contrast. Radiation optimization: All CT scans at this facility use at least one of these dose optimization techniques: automated exposure control; mA and/or kV adjustment per patient size (includes targeted exams where dose is matched to clinical indication); or iterative reconstruction. COMPARISON: CT ABD/PEL W/IV CONTRAST ONLY 08/15/2020 2:32 PM FINDINGS: Liver: Normal. No mass. Gallbladder and bile ducts: Normal. No calcified stones. No ductal dilation. Pancreas: Normal. No ductal dilation. Spleen: Normal. No splenomegaly. Adrenal glands: Normal. No mass. Kidneys and ureters: Left perinephric fluid and stranding with mild left hydronephrosis and left double-J ureteral stent in position. There is slight left periureteral induration or edema. Stomach and bowel: Borderline distention of the stomach with food material, fluid and gas. Appendix: A normal appendix is seen. Intraperitoneal space: Unremarkable. No free air. No significant fluid collection. Vasculature: Unremarkable. No abdominal aortic aneurysm. Lymph nodes: Unremarkable. No enlarged lymph nodes. Urinary bladder: Unremarkable as visualized. Reproductive: Unremarkable as visualized. Bones/joints: Unremarkable. No acute fracture. Soft tissues: Unremarkable. IMPRESSION: 1. Left double-J ureteral stent in position with left perinephric fluid and stranding and left hydronephrosis with periureteral edema. The periureteral edema is not unusual with a stent. Decreased function of the stent is not excluded with left hydronephrosis and periureteral stranding although may be related to recent placement. 2. There is borderline gastric distention with food material, fluid and gas which may reflect recent ingestion. Gastric atony or relative outlet obstruction are not excluded. 3. Otherwise negative CT abdomen/pelvis. Electronically signed by: Johnny Yang On 01/22/2021 06:00:34 AM
[2021-01-22 06:30] LABS: BASO % 0.6 % (0.0-1.0); EOS # 0.1 10^3/uL (0.0-0.5); EOS % 1.9 % (0.0-3.0); HEMATOCRIT 40.8 % (42.0-52.0); HEMOGLOBIN 13.4 g/dl (13.5-17.5); LYMPH # 2.8 10^3/uL (1.5-5.0); MEAN CORPUSCULAR HEMOGLOBIN 29.6 pg (27.0-33.0); MEAN CORPUSCULAR HGB CONC 32.8 g/dl (32.0-36.5); MEAN CORPUSCULAR VOLUME 90.1 fl (80.0-96.0); MONO # 0.6 10^3/uL (0.0-0.8); MONO % 9.9 % (2.0-8.0); NEUTROPHILS # 2.6 10^3/uL (1.5-8.5); NEUTROPHILS % 42.1 % (36.0-66.0); PLATELET COUNT, AUTOMATED 184 10^3/uL (150-450); RED BLOOD COUNT 4.53 10^6/uL (4.30-6.10); WHITE BLOOD COUNT 6.3 10^3/uL (4.0-10.0)
[2021-01-22 07:09] LABS: ALBUMIN 3.7 GM/DL (3.2-5.2); ALT/SGPT 47 U/L (12-78); BILIRUBIN,DIRECT < 0.1 MG/DL (0.0-0.2); BILIRUBIN,TOTAL 0.3 MG/DL (0.2-1.0); BLOOD UREA NITROGEN 20 MG/DL (7-18); CALCIUM LEVEL 8.7 MG/DL (8.5-10.1); CARBON DIOXIDE LEVEL 29 MEQ/L (21-32); CHLORIDE LEVEL 108 MEQ/L (98-107); CREATININE FOR GFR 1.13 MG/DL (0.70-1.30); GLOMERULAR FILTRATION RATE > 60.0 (>60); GLUCOSE, FASTING 93 MG/DL (70-100); LIPASE 146 U/L (73-393); POTASSIUM SERUM 4.2 MEQ/L (3.5-5.1); SODIUM LEVEL 143 MEQ/L (136-145); TOTAL PROTEIN 7.1 GM/DL (6.4-8.2)
[2021-01-22] MEDS ORDERED: PERC5TAB12 PO (08:41)
[2021-01-22 08:50] VITALS: BP 120/62
[2021-01-24] MEDS ORDERED: METH-1164 (14:50)
[2021-01-24] MEDS ORDERED: XOLA150S (14:50)
[2021-01-24] MEDS ORDERED: [UNRECOGNIZED DRUG - CODE] (14:50)
== END 2021-01-22 09:19 | disposition home or self-care (01) ==
LOC: M ED 04:05
DX: N20.1 Calculus of ureter (principal); Z91.018 Allergy to other foods; Z79.899 Other long term (current) drug therapy; Z79.01 Long term (current) use of anticoagulants
CPT/HCPCS: 36415; 74176; 80048; 80076; 81001; 83605; 83690; 85025; 87086; 93041; 96361; 96374; 96375; 99285; J1885; J2270; J3010

== ENCOUNTER 2021-02-24 03:43 | Emergency (ER) | payer OTHER ==
[~2021-02-24] VITALS: Ht 172.7 cm; Wt 91.4 kg
[~2021-02-24 03:43] MED LIST changes: -ACET-838 PO; +ACET32TAB PO; +HYDR-3713 PO; +IBUP80TA PO; +METH-1164; +PERC5TAB12 PO; +XOLA150S; +[UNRECOGNIZED DRUG - CODE]
[2021-02-24 04:15] LABS: BASO % 0.5 % (0.0-1.0); EOS # 0.2 10^3/uL (0.0-0.5); EOS % 2.4 % (0.0-3.0); HEMATOCRIT 39.8 % (42.0-52.0); HEMOGLOBIN 13.4 g/dl (13.5-17.5); LYMPH # 3.3 10^3/uL (1.5-5.0); LYMPH % 52.6 % (24.0-44.0); MEAN CORPUSCULAR HEMOGLOBIN 29.8 pg (27.0-33.0); MEAN CORPUSCULAR HGB CONC 33.7 g/dl (32.0-36.5); MEAN CORPUSCULAR VOLUME 88.6 fl (80.0-96.0); MONO # 0.5 10^3/uL (0.0-0.8); MONO % 8.5 % (2.0-8.0); NEUTROPHILS # 2.2 10^3/uL (1.5-8.5); NEUTROPHILS % 35.7 % (36.0-66.0); PLATELET COUNT, AUTOMATED 186 10^3/uL (150-450); RED BLOOD COUNT 4.49 10^6/uL (4.30-6.10); WHITE BLOOD COUNT 6.2 10^3/uL (4.0-10.0)
[2021-02-24 05:00] LABS: ALBUMIN 3.4 GM/DL (3.2-5.2); ALT/SGPT 35 U/L (12-78); BILIRUBIN,DIRECT < 0.1 MG/DL (0.0-0.2); BILIRUBIN,TOTAL 0.4 MG/DL (0.2-1.0); BLOOD UREA NITROGEN 15 MG/DL (7-18); CALCIUM LEVEL 8.8 MG/DL (8.5-10.1); CARBON DIOXIDE LEVEL 27 MEQ/L (21-32); CHLORIDE LEVEL 109 MEQ/L (98-107); CREATININE FOR GFR 1.02 MG/DL (0.70-1.30); GLOMERULAR FILTRATION RATE > 60.0 (>60); GLUCOSE, FASTING 92 MG/DL (70-100); LIPASE 143 U/L (73-393); POTASSIUM SERUM 4.6 MEQ/L (3.5-5.1); SODIUM LEVEL 140 MEQ/L (136-145); TOTAL PROTEIN 7.1 GM/DL (6.4-8.2)
[2021-02-24] MEDS ORDERED: NS 1,000 ML IV ONE (06:15)
[2021-02-24] MEDS ORDERED: MORPHINE 4 MG/ML 1ML VIAL/SYRINGE (J2270) IV ONE (06:20)
--- NOTE | 2021-02-24 07:17 | REPVR ---
PROCEDURE INFORMATION: Exam: CT Abdomen And Pelvis Without Contrast Exam date and time: 02/24/2021 6:26 AM Age: 30 years old Clinical indication: Abdominal pain; Flank; Left; Additional info: L flank pain, h/o ureteral stent, hematuria TECHNIQUE: Imaging protocol: Computed tomography of the abdomen and pelvis without contrast. Radiation optimization: All CT scans at this facility use at least one of these dose optimization techniques: automated exposure control; mA and/or kV adjustment per patient size (includes targeted exams where dose is matched to clinical indication); or iterative reconstruction. COMPARISON: CT ABD PELVIS W/O CONTRAST 01/22/2021 5:06 AM FINDINGS: Liver: Mild hepatomegaly. Gallbladder and bile ducts: Normal. No calcified stones. No ductal dilation. Pancreas: Normal. No ductal dilation. Spleen: Normal. No splenomegaly. Adrenal glands: Normal. No mass. Kidneys and ureters: Left double-J ureteral stent. Minimal prominence of the bilateral renal collecting system. Stomach and bowel: Nonspecific bowel wall thickening involving multiple loops of small and large bowel. Favor under distension. Enterocolitis cannot be completely excluded. Appendix: No evidence of appendicitis. Intraperitoneal space: Unremarkable. No free air. No significant fluid collection. Vasculature: Unremarkable. No abdominal aortic aneurysm. Lymph nodes: Unremarkable. No enlarged lymph nodes. Urinary bladder: Unremarkable as visualized. Reproductive: Unremarkable as visualized. Bones/joints: Unremarkable. No acute fracture. Soft tissues: Unremarkable. IMPRESSION: Nonspecific bowel wall thickening involving multiple loops of small and large bowel. Favor under distension. Enterocolitis cannot be completely excluded. Electronically signed by: Mando Gabriel On 02/24/2021 07:17:37 AM
[2021-02-24] MEDS ORDERED: OXYB-54 PO (08:26)
[2021-02-24] MEDS ORDERED: PYRI1TAB5 PO (08:26)
[2021-02-24] MEDS ORDERED: SULF1TAB23 PO (08:26)
[2021-02-24 08:47] VITALS: BP 145/80
== END 2021-02-24 09:25 | disposition home or self-care (01) ==
LOC: M ED 03:43
DX: N30.90 Cystitis, unspecified without hematuria (principal); K52.9 Noninfective gastroenteritis and colitis, unspecified; F33.9 Major depressive disorder, recurrent, unspecified; F41.9 Anxiety disorder, unspecified; G47.33 Obstructive sleep apnea (adult) (pediatric); Z86.718 Personal history of other venous thrombosis and embolism; Z96.0 Presence of urogenital implants; Z91.018 Allergy to other foods; Z79.899 Other long term (current) drug therapy; Z79.01 Long term (current) use of anticoagulants
CPT/HCPCS: 74176; 80048; 80076; 81001; 83690; 85025; 87086; 96361; 96374; 99285; J2270

== ENCOUNTER 2021-02-26 15:37 | Emergency (ER) | payer OTHER ==
[~2021-02-26] VITALS: Ht 172.7 cm; Wt 90.9 kg
[~2021-02-26 15:37] MED LIST changes: +OXYB-54 PO; +PYRI1TAB5 PO; +SULF1TAB23 PO
[2021-02-26 16:32] LABS: BASO % 0.5 % (0.0-1.0); EOS # 0.1 10^3/uL (0.0-0.5); EOS % 1.6 % (0.0-3.0); HEMATOCRIT 41.3 % (42.0-52.0); HEMOGLOBIN 13.7 g/dl (13.5-17.5); LYMPH # 2.3 10^3/uL (1.5-5.0); LYMPH % 37.1 % (24.0-44.0); MEAN CORPUSCULAR HEMOGLOBIN 28.7 pg (27.0-33.0); MEAN CORPUSCULAR HGB CONC 33.2 g/dl (32.0-36.5); MEAN CORPUSCULAR VOLUME 86.6 fl (80.0-96.0); MONO # 0.4 10^3/uL (0.0-0.8); MONO % 6.7 % (2.0-8.0); NEUTROPHILS # 3.4 10^3/uL (1.5-8.5); NEUTROPHILS % 53.6 % (36.0-66.0); PLATELET COUNT, AUTOMATED 222 10^3/uL (150-450); RED BLOOD COUNT 4.77 10^6/uL (4.30-6.10); WHITE BLOOD COUNT 6.3 10^3/uL (4.0-10.0)
[2021-02-26 17:00] LABS: ALBUMIN 4.3 GM/DL (3.2-5.2); BILIRUBIN,DIRECT 0.2 MG/DL (0.0-0.2); BILIRUBIN,TOTAL 0.6 MG/DL (0.2-1.0); TOTAL PROTEIN 8.3 GM/DL (6.4-8.2)
[2021-02-26] MEDS ORDERED: NS 1,000 ML IV ONE (17:10)
[2021-02-26] MEDS ORDERED: KETOROLAC 30 MG/ML 1ML VIAL IV ONE (17:10)
[2021-02-26] MEDS ORDERED: MORPHINE 2 MG/ML 1ML VIAL (J2270) IV ONE (17:10)
[2021-02-26] MEDS ORDERED: ONDANSETRON 4MG/2ML VIAL IV ONE (17:10)
--- NOTE | 2021-02-26 18:06 | REPVR ---
PROCEDURE INFORMATION: Exam: CT Abdomen And Pelvis Without Contrast Exam date and time: 02/26/2021 5:38 PM Age: 30 years old Clinical indication: Other: Hematuria TECHNIQUE: Imaging protocol: Computed tomography of the abdomen and pelvis without contrast. Radiation optimization: All CT scans at this facility use at least one of these dose optimization techniques: automated exposure control; mA and/or kV adjustment per patient size (includes targeted exams where dose is matched to clinical indication); or iterative reconstruction. COMPARISON: CT ABD PELVIS W/O CONTRAST 02/24/2021 6:27 AM FINDINGS: Liver: Normal. No mass. Gallbladder and bile ducts: The gallbladder is partially contracted. Pancreas: Normal. No ductal dilation. Spleen: Normal. No splenomegaly. Adrenal glands: Normal. No mass. Kidneys and ureters: Stable left internalized double-J ureteral stent placement. Left renal AP pelvic dimension has increased from 11.4 mm to 18.0 mm. Persistent renal pelvic wall thickening. Under-rotation of the left kidney with a forward facing renal hilum, a normal variant. No urinary tract calculi identified. Stomach and bowel: Unremarkable. No obstruction. No mucosal thickening. Appendix: The vermiform appendix is normal. Intraperitoneal space: Unremarkable. No free air. No significant fluid collection. Vasculature: Unremarkable. No abdominal aortic aneurysm. Lymph nodes: No enlarged lymph nodes. Urinary bladder: Persistent mild urinary bladder wall thickening. Reproductive: Unremarkable as visualized. Bones/joints: Unremarkable. No acute fracture. Soft tissues: Unremarkable. IMPRESSION: 1. Stable left internalized double-J ureteral stent placement. 2. Interval mild increase in left renal AP pelvic dimension. Stent malfunction not excluded. Clinical correlation with the patient's specific symptomatology (left flank pain?) is recommended. 3. Persistent mild urinary bladder wall thickening. Moderate Clinical correlation with urinalysis results is recommended. Electronically signed by: Corey Subramanian On 02/26/2021 18:06:26 PM
[2021-02-26 18:37] VITALS: BP 135/68
[2021-02-26] MEDS ORDERED: CIPR-249 PO (18:47)
[2021-02-26] MEDS ORDERED: HYDR-3713 PO (18:47)
--- NOTE | 2021-02-28 09:08 | ED PDOC ---
Post-Departure Follow-Up radiology report faxed to [facility] Jessy Burnett MD Feb 28, 2021 09:08
== END 2021-02-26 20:03 | disposition home or self-care (01) ==
LOC: M ED 15:37
DX: R31.9 Hematuria, unspecified (principal); Z79.899 Other long term (current) drug therapy; Z91.013 Allergy to seafood; Z87.442 Personal history of urinary calculi
CPT/HCPCS: 74176; 80047; 80076; 81001; 83690; 85025; 87086; 96374; 96375; 99284; J1885; J2270; J2405

== ENCOUNTER → 2021-03-19 | Outpatient (CLI) | payer OTHER ==
[~2021-03-19] MED LIST changes: +CIPR-249 PO
[2021-03-19 17:18] LABS: PROSTATIC SPECIFIC AG MONITOR 0.17 NG/ML (< 4.00)
== END ==
LOC: M LAB 15:40
PROVIDERS: ATTEND Urology
DX: D35.2 Benign neoplasm of pituitary gland (principal)

== ENCOUNTER 2021-05-04 23:45 | Emergency (ER) | payer OTHER ==
[2021-05-05] MEDS ORDERED: LEXA1TAB2 PO (00:10)
[2021-05-05] MEDS ORDERED: TRAZ1TAB10 PO (00:10)
[2021-05-05] MEDS ORDERED: ACET-683 PO (00:11)
[2021-05-05 00:15] VITALS: BP 139/83
[2021-05-05] MEDS ORDERED: [UNRECOGNIZED DRUG - CODE] IM (00:23)
== END 2021-05-05 03:09 | disposition left against medical advice (07) ==
LOC: M ED 05-05 02:56
DX: Z53.21 Procedure and treatment not carried out due to patient leaving prior to being seen by health care provider (principal)

== ENCOUNTER → 2021-06-11 | Outpatient (CLI) | payer OTHER ==
[~2021-06-11] MED LIST changes: +AUGM0.0534; +AUGM0.0534 EXT; +BUSP10TA; +BUSP10TA PO; -CEFD1CAP8 PO; +CEFD300C41 PO; +CETI-24; +CETI-24 PO; +FUROSEMIDE 20MG/2ML VIAL (J1940) As Ordered ONE; -IBUP200T45 PO; +IBUP200T46 PO; +LIDO5DIS41 TD; +METH-1164 PO; +MIRA1POW3 PO; +PANT40TA29 PO; +QUET1TAB17 PO; +TRAZ1TAB10 PO; +VENL75CA47 PO; +XOLA150I SC; +[UNRECOGNIZED DRUG - CODE] IM
== END ==
LOC: M RAD 08:12
PROVIDERS: ATTEND Physician Assistant
DX: N13.0 Hydronephrosis with ureteropelvic junction obstruction (principal)

== ENCOUNTER 2021-07-03 13:47 | Emergency (ER) | payer OTHER ==
[~2021-07-03] VITALS: Ht 172.7 cm; Wt 90.9 kg
[~2021-07-03 13:47] MED LIST changes: -AUGM0.0534; -AUGM0.0534 EXT; -BUSP10TA; -BUSP10TA PO; +CEFD1CAP8 PO; -CEFD300C41 PO; -CETI-24; -CETI-24 PO; -FUROSEMIDE 20MG/2ML VIAL (J1940) As Ordered ONE; +IBUP200T45 PO; -IBUP200T46 PO; -LIDO5DIS41 TD; -METH-1164 PO; -MIRA1POW3 PO; -PANT40TA29 PO; -QUET1TAB17 PO; -VENL75CA47 PO; -XOLA150I SC
[2021-07-03] MEDS ORDERED: CETI-24 (14:05)
[2021-07-03] MEDS ORDERED: BUSP10TA (14:05)
[2021-07-03] MEDS ORDERED: AUGM0.0534 (14:05)
[2021-07-03] MEDS ORDERED: GI COCKTAIL 50ML BTL(HYOSCYAMINE/MAALOX/LIDOCAINE VISCOUS)(1:3:1) PO ONE (14:40)
[2021-07-03] MEDS ORDERED: NS 1,000 ML IV ONE (14:40)
[2021-07-03 17:47] LABS: BASO % 0.7 % (0.0-1.0); EOS # 0.1 10^3/uL (0.0-0.5); EOS % 2.3 % (0.0-3.0); HEMOGLOBIN 15.1 g/dl (13.5-17.5); LYMPH # 2.4 10^3/uL (1.5-5.0); LYMPH % 40.3 % (24.0-44.0); MEAN CORPUSCULAR HEMOGLOBIN 29.5 pg (27.0-33.0); MEAN CORPUSCULAR HGB CONC 32.8 g/dl (32.0-36.5); MEAN CORPUSCULAR VOLUME 89.8 fl (80.0-96.0); MONO # 0.5 10^3/uL (0.0-0.8); MONO % 8.5 % (2.0-8.0); NEUTROPHILS # 2.9 10^3/uL (1.5-8.5); NEUTROPHILS % 47.9 % (36.0-66.0); PLATELET COUNT, AUTOMATED 176 10^3/uL (150-450); RED BLOOD COUNT 5.12 10^6/uL (4.30-6.10)
[2021-07-03 17:58] LABS: INR 1.07; PROTHROMBIN TIME 14.3 SECONDS (12.7-14.5)
[2021-07-03 17:59] LABS: PARTIAL THROMBOPLASTIN TIME 30.6 SECONDS (25.9-37.0)
[2021-07-03 18:41] LABS: ACETAMINOPHEN LEVEL < 2.0 UG/ML (10.0-30.0); ALBUMIN 4.2 GM/DL (3.2-5.2); ALT/SGPT 47 U/L (12-78); BILIRUBIN,DIRECT 0.3 MG/DL (0.0-0.2); BLOOD UREA NITROGEN 15 MG/DL (7-18); CALCIUM LEVEL 9.4 MG/DL (8.5-10.1); CARBON DIOXIDE LEVEL 27 MEQ/L (21-32); CHLORIDE LEVEL 109 MEQ/L (98-107); ETHYL ALCOHOL (ETHANOL) 0.003 % (0.000-0.010); GLOMERULAR FILTRATION RATE > 60.0 (>60); GLUCOSE, FASTING 70 MG/DL (70-100); LIPASE 88 U/L (73-393); SALICYLATE LEVEL < 1.7 MG/DL (5.0-30.0); SODIUM LEVEL 141 MEQ/L (136-145); TOTAL PROTEIN 8.4 GM/DL (6.4-8.2)
[2021-07-03 19:29] LABS: AMPHETAMINES LEVEL URINE NEGATIVE (NEGATIVE); BARBITURATES URINE NEGATIVE (NEGATIVE); BENZODIAZEPINES URINE NEGATIVE (NEGATIVE); CANNABINOIDS URINE NEGATIVE (NEGATIVE); COCAINE METABOLITE URINE NEGATIVE (NEGATIVE); METHADONE URINE NEGATIVE (NEGATIVE); OPIATES URINE NEGATIVE (NEGATIVE); PHENCYCLIDINE URINE NEGATIVE (NEGATIVE)
[2021-07-03] MEDS ORDERED: METH-1164 PO (22:21)
[2021-07-03] MEDS ORDERED: AUGM0.0534 EXT (22:25)
[2021-07-03] MEDS ORDERED: XOLA150I SC ×2 (22:25→22:36)
[2021-07-03] MEDS ORDERED: CETI-24 PO (22:25)
[2021-07-03] MEDS ORDERED: BUSP10TA PO (22:25)
[2021-07-03] MEDS ORDERED: [UNRECOGNIZED DRUG - CODE] IM (22:36)
[2021-07-03] MEDS ORDERED: LIDO5DIS41 TD (22:36)
[2021-07-03] MEDS ORDERED: HOME MED LIST COMPLETE! XX SCH (22:45)
[2021-07-04 01:19] LABS: RSV AMPLIFICATION NEGATIVE (NEGATIVE)
[2021-07-04 07:19] VITALS: BP 128/73
--- NOTE | 2021-07-04 18:55 | ECGEPIP ---
[facility] - ED Test Date: 2021-07-04 Pat Name: MARVIN LEAHY Department: Room: - Gender: Male [employer]: [facility] : 1990 Requested By: EFRAIN Moore Order Number: [id number] Reading MD: Jessy Burnett Measurements Intervals [place] Rate: 63 P: 38 WV: 170 QRS: 50 QRSD: 88 T: 33 QT: 402 QTc: 411 Interpretive Statements Normal sinus rhythm with sinus arrhythmia NSTTW abnormalities similar 03/06/21 Electronically Signed on 07-04-2021 18:55:09 EDT by Jessy Burnett
== END 2021-07-04 07:29 ==
LOC: M ED 13:47
DX: R45.851 Suicidal ideations (principal); R10.9 Unspecified abdominal pain; Z79.899 Other long term (current) drug therapy; Z79.01 Long term (current) use of anticoagulants; Z88.8 Allergy status to other drugs, medicaments and biological substances; Z91.018 Allergy to other foods
CPT/HCPCS: 36415; 80048; 80076; 80143; 80307; 81001; 82077; 83690; 84443; 85025; 85610; 85730; 87631; 93005; 96360; 96361; 99284; U0002

== ENCOUNTER 2021-07-04 07:54 | Inpatient (IN) | payer OTHER ==
[~2021-07-04] VITALS: Ht 172.7 cm; Wt 90.9 kg
[~2021-07-04 07:54] MED LIST changes: +AUGM0.0534; +AUGM0.0534 EXT; +BUSP10TA; +BUSP10TA PO; -CEFD1CAP8 PO; +CEFD300C41 PO; +CETI-24; +CETI-24 PO; -IBUP200T45 PO; +IBUP200T46 PO; +LIDO5DIS41 TD; +METH-1164 PO; +XOLA150I SC
[2021-07-04] MEDS ORDERED: busPIRone 10 MG TAB PO SCH (09:00)
[2021-07-04] MEDS ORDERED: APIXABAN 5 MG TAB (ELIQUIS) PO SCH (09:00)
[2021-07-04] MEDS ORDERED: HOME MED LIST COMPLETE! XX SCH (10:35)
[2021-07-04] MEDS ORDERED: OLANZapine ORAL DISINTEGRATING TAB 5MG PO PRN (16:40)
[2021-07-04] MEDS ORDERED: MOM 30ML SUSPENSION UDC PO PRN (16:40)
[2021-07-04] MEDS ORDERED: traZODone 50 MG TAB PO PRN (16:40)
[2021-07-04] MEDS ORDERED: MAALOX 30 ML SUSP *UDC PO PRN (16:40)
[2021-07-04 18:01] VITALS: BP 123/81
[2021-07-04] MEDS ORDERED: methocarbamoL 500 MG TAB PO PRN (19:45)
[2021-07-04] MEDS: CETIRIZINE (ZyrTEC) 10 MG TAB PO SCH (20:28)
[2021-07-04] MEDS: busPIRone 10 MG TAB PO SCH (20:28)
[2021-07-04] MEDS: APIXABAN 5 MG TAB (ELIQUIS) PO SCH (20:28)
[2021-07-04] MEDS: LIDOCAINE 5% (LIDODERM) PATCH TD SCH (20:29)
[2021-07-04] MEDS ORDERED: APIXABAN 5 MG TAB (ELIQUIS) PO ONE (21:00)
[2021-07-05 05:37] VITALS: BP 138/73
[2021-07-05] MEDS: busPIRone 10 MG TAB PO SCH ×2 (08:25→20:52)
[2021-07-05] MEDS: **NOTE PATIENT COMMENT** MISC XX SCH (08:25)
[2021-07-05] MEDS: APIXABAN 5 MG TAB (ELIQUIS) PO SCH ×2 (08:25→20:52)
[2021-07-05] MEDS ORDERED: busPIRone 10 MG TAB PO ONE (09:00)
[2021-07-05] MEDS ORDERED: XOLAIR 150 MG SC SCH (12:00)
[2021-07-05] MEDS: MIRALAX *UNIT DOSE* 17GM PACKET PO SCH (12:07)
[2021-07-05 18:20] VITALS: BP 148/89
[2021-07-05] MEDS: LIDOCAINE 5% (LIDODERM) PATCH TD SCH (20:52)
[2021-07-05] MEDS: CETIRIZINE (ZyrTEC) 10 MG TAB PO SCH (20:52)
[2021-07-05] MEDS: PANTOPRAZOLE 40MG TAB (PROTONIX) PO SCH (20:52)
[2021-07-06 06:40] VITALS: BP 123/67
[2021-07-06] MEDS ORDERED: VENLAFAXINE 37.5 MG TAB PO ONE (08:00)
[2021-07-06] MEDS: MIRALAX *UNIT DOSE* 17GM PACKET PO SCH (08:59)
[2021-07-06] MEDS: busPIRone 10 MG TAB PO SCH ×2 (09:00→21:25)
[2021-07-06] MEDS: APIXABAN 5 MG TAB (ELIQUIS) PO SCH ×2 (09:00→21:25)
[2021-07-06] MEDS: **NOTE PATIENT COMMENT** MISC XX SCH (09:00)
[2021-07-06] MEDS ORDERED: ISOVUE-370 76% 100ML VIAL As Ordered ONE (10:59)
[2021-07-06 11:59] LABS: HEMATOCRIT 43.1 % (42.0-52.0); HEMOGLOBIN 14.2 g/dl (13.5-17.5); MEAN CORPUSCULAR HEMOGLOBIN 29.1 pg (27.0-33.0); MEAN CORPUSCULAR HGB CONC 32.9 g/dl (32.0-36.5); MEAN CORPUSCULAR VOLUME 88.3 fl (80.0-96.0); PLATELET COUNT, AUTOMATED 180 10^3/uL (150-450); RED BLOOD COUNT 4.88 10^6/uL (4.30-6.10); WHITE BLOOD COUNT 5.2 10^3/uL (4.0-10.0)
[2021-07-06 12:15] LABS: HEMOGLOBIN A1c 5.2 %
[2021-07-06 12:40] LABS: ALBUMIN 3.7 GM/DL (3.2-5.2); ALT/SGPT 45 U/L (12-78); BILIRUBIN,TOTAL 0.4 MG/DL (0.2-1.0); BLOOD UREA NITROGEN 13 MG/DL (7-18); CALCIUM LEVEL 9.3 MG/DL (8.5-10.1); CARBON DIOXIDE LEVEL 32 MEQ/L (21-32); CHLORIDE LEVEL 105 MEQ/L (98-107); CHOLESTEROL LEVEL 148 MG/DL (<200); CREATININE FOR GFR 0.93 MG/DL (0.70-1.30); GLOMERULAR FILTRATION RATE > 60.0 (>60); GLUCOSE, FASTING 67 MG/DL (70-100); HDL CHOLESTEROL 49 MG/DL (>40); LDL CHOLESTEROL 86 MG/DL (<100); NON-HDL-C 99 MG/DL; POTASSIUM SERUM 4.3 MEQ/L (3.5-5.1); SODIUM LEVEL 139 MEQ/L (136-145); TOTAL PROTEIN 7.2 GM/DL (6.4-8.2); TRIGLYCERIDES LEVEL 67 MG/DL (<150)
[2021-07-06 16:20] VITALS: BP 150/80
[2021-07-06] MEDS: PANTOPRAZOLE 40MG TAB (PROTONIX) PO SCH (21:25)
[2021-07-06] MEDS: CETIRIZINE (ZyrTEC) 10 MG TAB PO SCH (21:25)
[2021-07-06] MEDS: LIDOCAINE 5% (LIDODERM) PATCH TD SCH (21:25)
[2021-07-06] MEDS: QUEtiapine FUMARATE 25 MG TAB PO SCH (22:29)
[2021-07-07 06:19] VITALS: BP 123/58
[2021-07-07] MEDS: APIXABAN 5 MG TAB (ELIQUIS) PO SCH ×2 (09:56→21:46)
[2021-07-07] MEDS: VENLAFAXINE 37.5 MG TAB PO SCH (09:57)
[2021-07-07] MEDS: busPIRone 10 MG TAB PO SCH ×2 (09:57→21:46)
[2021-07-07] MEDS: MIRALAX *UNIT DOSE* 17GM PACKET PO SCH (09:57)
[2021-07-07] MEDS: **NOTE PATIENT COMMENT** MISC XX SCH (09:59)
[2021-07-07] MEDS: ACETAMINOPHEN TAB 650MG DOSE (2X325MG) PO PRN (10:00)
[2021-07-07 19:04] VITALS: BP 155/72
[2021-07-07] MEDS: CETIRIZINE (ZyrTEC) 10 MG TAB PO SCH (21:45)
[2021-07-07] MEDS: QUEtiapine FUMARATE 25 MG TAB PO SCH (21:46)
[2021-07-07] MEDS: LIDOCAINE 5% (LIDODERM) PATCH TD SCH (21:46)
[2021-07-07] MEDS: PANTOPRAZOLE 40MG TAB (PROTONIX) PO SCH (21:46)
[2021-07-08 06:17] VITALS: BP 124/58
[2021-07-08] MEDS: **NOTE PATIENT COMMENT** MISC XX SCH (08:24)
[2021-07-08] MEDS: busPIRone 10 MG TAB PO SCH ×2 (08:26→21:44)
[2021-07-08] MEDS: VENLAFAXINE 37.5 MG TAB PO SCH (08:26)
[2021-07-08] MEDS: APIXABAN 5 MG TAB (ELIQUIS) PO SCH ×2 (08:26→21:44)
[2021-07-08] MEDS: MIRALAX *UNIT DOSE* 17GM PACKET PO SCH (08:26)
[2021-07-08] MEDS: ACETAMINOPHEN TAB 650MG DOSE (2X325MG) PO PRN (08:27)
[2021-07-08 16:30] VITALS: BP 124/68
[2021-07-08] MEDS: CETIRIZINE (ZyrTEC) 10 MG TAB PO SCH (21:42)
[2021-07-08] MEDS: PANTOPRAZOLE 40MG TAB (PROTONIX) PO SCH (21:43)
[2021-07-08] MEDS: QUEtiapine FUMARATE 25 MG TAB PO SCH (21:44)
[2021-07-08] MEDS: LIDOCAINE 5% (LIDODERM) PATCH TD SCH (21:44)
[2021-07-09 05:49] VITALS: BP 150/68
[2021-07-09] MEDS: MIRALAX *UNIT DOSE* 17GM PACKET PO SCH (08:28)
[2021-07-09] MEDS: busPIRone 10 MG TAB PO SCH ×2 (08:29→21:35)
[2021-07-09] MEDS: APIXABAN 5 MG TAB (ELIQUIS) PO SCH ×2 (08:29→21:35)
[2021-07-09] MEDS: **NOTE PATIENT COMMENT** MISC XX SCH (08:32)
[2021-07-09] MEDS: ACETAMINOPHEN TAB 650MG DOSE (2X325MG) PO PRN (08:34)
[2021-07-09] MEDS ORDERED: VENLAFAXINE 37.5 MG TAB PO SCH (09:00)
[2021-07-09] MEDS: VENLAFAXINE **XR** 75MG CAPSULE PO SCH (17:32)
[2021-07-09 18:57] VITALS: BP 131/66
[2021-07-09] MEDS ORDERED: QUEtiapine FUMARATE 25 MG TAB PO SCH (21:00)
[2021-07-09] MEDS ORDERED: QUEtiapine FUMARATE 50MG TAB PO SCH (21:00)
[2021-07-09] MEDS: CETIRIZINE (ZyrTEC) 10 MG TAB PO SCH (21:35)
[2021-07-09] MEDS: PANTOPRAZOLE 40MG TAB (PROTONIX) PO SCH (21:35)
[2021-07-09] MEDS: LIDOCAINE 5% (LIDODERM) PATCH TD SCH (21:35)
[2021-07-10 06:07] VITALS: BP 123/57
[2021-07-10] MEDS: VENLAFAXINE **XR** 75MG CAPSULE PO SCH (08:40)
[2021-07-10] MEDS: **NOTE PATIENT COMMENT** MISC XX SCH (08:40)
[2021-07-10] MEDS: MIRALAX *UNIT DOSE* 17GM PACKET PO SCH (08:40)
[2021-07-10] MEDS: APIXABAN 5 MG TAB (ELIQUIS) PO SCH (08:40)
[2021-07-10] MEDS: busPIRone 10 MG TAB PO SCH (08:40)
[2021-07-10] MEDS ORDERED: VENLAFAXINE 37.5 MG TAB PO SCH (09:00)
[2021-07-10] MEDS ORDERED: VENL75CA47 PO (11:16)
[2021-07-10] MEDS ORDERED: QUET1TAB17 PO (11:16)
[2021-07-10] MEDS ORDERED: BUSP10TA PO (11:16)
[2021-07-10] MEDS ORDERED: MIRA1POW3 PO (11:16)
[2021-07-10] MEDS ORDERED: PANT40TA29 PO (11:16)
[2021-07-10] MEDS ORDERED: [UNRECOGNIZED DRUG - CODE] IM (11:17)
== END 2021-07-10 13:39 | disposition home or self-care (01) | DRG 885 ==
LOC: M ED 07:54 → M ED INP 16:37 → M ED 17:16 → M PSY 17:42
PROVIDERS: ADMIT Student in an Organized Health Care Education/Training Program; ATTEND Student in an Organized Health Care Education/Training Program
DX: F33.1 Major depressive disorder, recurrent, moderate (principal); R45.851 Suicidal ideations; I82.4Z2 Acute embolism and thrombosis of unspecified deep veins of left distal lower extremity; R10.13 Epigastric pain; F41.1 Generalized anxiety disorder; F43.10 Post-traumatic stress disorder, unspecified; Z91.5 Personal history of self-harm; Z79.01 Long term (current) use of anticoagulants; Z79.899 Other long term (current) drug therapy; Z88.6 Allergy status to analgesic agent; Z91.013 Allergy to seafood; G47.33 Obstructive sleep apnea (adult) (pediatric); Z96.0 Presence of urogenital implants; J45.909 Unspecified asthma, uncomplicated; Q98.4 Klinefelter syndrome, unspecified; D75.A Glucose-6-phosphate dehydrogenase (G6PD) deficiency without anemia; F43.22 Adjustment disorder with anxiety

== ENCOUNTER → 2021-09-30 | Outpatient (REF) | payer OTHER ==
[~2021-09-30] MED LIST changes: +CEFD1CAP8 PO; -CEFD300C41 PO; +MIRA1POW3 PO; +PANT40TA29 PO; +QUET1TAB17 PO; +VENL75CA47 PO
== END ==
LOC: M LAB REF 11:10
PROVIDERS: ATTEND Internal Medicine Gastroenterology
DX: R10.13 Epigastric pain (principal)

== ENCOUNTER 2021-10-10 09:44 | Day surgery (SDC) | payer OTHER ==
[~2021-10-10] VITALS: Ht 172.7 cm; Wt 99.1 kg
[~2021-10-10 09:44] MED LIST changes: +NS 1,000 ML IV ONE
[2021-10-10] MEDS ORDERED: LIDOCAINE 2% 100MG/5ML SDV (FOR ANES.) As Ordered ONE (09:47)
[2021-10-10] MEDS ORDERED: propofoL 200 MG/20 ML VIAL As Ordered ONE (09:47)
--- OUTSIDE RECORDS SUMMARY | 2021-10-10 09:53 | CCD | Continuity of Care Document ---
Author Author Chivo MARTINEZ MD Organization Unknown Address [address] [place] [address] Phone [phone] Care Team Providers Care Right Of Way Cutter Name Role Phone Ines Juarez D.O. 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 09/26/2021 Medications Active Medications SIG Qnty Indications Ordering Provide r Date Magnesium Citrate 1.745GM/30ML Zulema ution one 10 oz bottle green or clear only, use for additional prep at 2-3 days before procedure 296ml R10.13 Sherman Martinez MD 09/26/2021 Miralax 17GM/Scoop Powder use as directed see dr martinez colon preparation instructions 510gm R10.13 Tadeo tevin Martinez MD 09/26/2021 Pantoprazole Sodium 40mg Tablets D R 1 by mouth every day 30tabs R10.13 Sherman Martinez MD 09/26/2021 Quetiapine Fumarate 25mg Tablets Unknown Buspirone HCL 10mg Tablets Unknown Venlafaxine HCL ER 75mg Caps ER 24 HR 1 by mouth every day Unknown Trazodone HCL 50mg Tablets Unknown Methocarbamol 500mg Tablets Unknown Omalizumab 150 mg Unknown Miralax 17gm Packet take 17 gm per dose mixed with 8 ounces of water -- 1 or 2 times a day. avoid/ stop if having diarrhea. Unknown Immunizations Description No Information Available Vital Signs Date Vital Result Comment 09/26/2021 9:16am BP Systolic 125 mmHg BP Diastolic 69 mmHg Height 68 inches 5'8" Weight 222.00 lb BMI (Body Mass Index) 33.8 kg/m2 [place] Body Weight 154 lb Weight 100.699 kg BSA (Body Surface Area) 2.14 m2 Results Description No Information Available Procedures Date Code Description Status 09/26/2021 64572 Office/Outpatient New Moderate M DM 45-59 Minutes Completed Medical Devices Description No Information Available Encounters Type Date Location Provider Dx Diagnosis Office Visit 09/26/2021 9:00a [facility] Sherman Martinez MD R10.13 Epigastric pain R12 Heartburn K59.00 Constipation, unspecified B96.81 Helicobacter pylori as the c ause of diseases classd elswhr R19.5 Other fecal abnormalities Assessments Date Code Description Provider 09/26/2021 R10.13 Epigastric pain Sherman Martinez MD 09/26/2021 R12 Heartburn Sherman Martinez MD 09/26/2021 K59.00 Constipation, unspecified Sherman Martinez MD 09/26/2021 B96.81 Helicobacter pylori [H. pylori] as the cause of diseases classified elsewhere Sherman Martinez MD 09/26/2021 R19.5 Other fecal abnormalities Sherman Martinez MD Plan of Treatment 09/26/2021 - Sherman Martinez MD* R10.13 Epigastric pain * R12 Heartburn * K59.00 Constipation, unspecified * B96.81 Helicobacter pylori [H. pylori] as the cause of diseases classified elsewhere * R19.5 Other fecal abnormalities * * New Medication:* Magnesium Citrate 1.745 GM/30ML * Miralax 17 GM/Scoop * Pantoprazole Sodium 40 mg * New Labs:* H Pylori Stool Antigen, Ordered: 09/26/21 * New Orders:* EGD and Colonoscopy, Ordered: 09/26/21 * Comments:* pt with recurrent abdominal pain for several months. multiple ER visits. He has had numerous CT scans.Pt was positive for H pylori in may 2021 via fecal ag. he was treated with PPI and two antibiotics (unknown). he felt better at the time of taking the PPI. after stopping PPI for Hpylori, his symptoms returned. * Recommendations:* Stool testing for H pylori while he is off PPI to assess for cure. Once stool sample provided, can resumme Pantoprazole daily for GERD. Will do EGD and colonoscopy. Functional Status Description No Information Available Mental Status Description No Information Available Referrals Refer to Reason for Referral Status Appt Date Sherman Martinez M.D. ABD PAIN/H PYLORI - 1 NEW 07/13 TO 01/09 , 9 EST 07/13/21 TO 07/13/22 Scheduled 10/22/2021 [facility], Gastroenterology [address] [place] [address], [address] [place] [address] [phone]
--- OUTSIDE RECORDS SUMMARY | 2021-10-10 09:53 | CCD | Continuity of Care Document ---
Author Author Chivo MARTINEZ MD Organization Unknown Address [address] [place] [address] Phone [phone] Care Team Providers Care Dial Mounter Name Role Phone Ines Juarez D.O. AUTM [phone] Problems Description No Information Available Social History [...] at 2-3 days before procedure 296ml R10.13 Efrain Martinez MD 09/26/2021 Miralax 17GM/Scoop Powder use as directed see dr martinez colon preparation instructions 510gm R10.13 Tadeo tevin Martinez MD 09/26/2021 Pantoprazole Sodium 40mg Tablets D R 1 by mouth every day 30tabs R10.13 Efrain Martinez MD 09/26/2021 Quetiapine Fumarate 25mg Tablets [...] lb BMI (Body Mass Index) 33.8 kg/m2 [place] Body Weight 154 lb Weight 100.699 kg BSA (Body Surface Area) 2.14 m2 Results Test Acquired Date Facility Test Result H/L Range Note Laboratory test finding 09/30/2021 [facility] Main Lab [address] [place] [id number] [phone] H Pylori Stool Antigen Negative Normal Negative 1, 2 1 Performed at: RN - [facility] [address] [id number] Special Needs Teacher: Kelley Wilson MD, Phone: [phone] 2 10/02/21 (ThuOct 02) 03:23 PM EFRAIN MARTINEZ neg Procedures Date Code Description Status 09/26/2021 84919 Office/Outpatient New Moderate M DM 45-59 Minutes Completed Medical Devices Description No Information Available Encounters Type Date Location Provider Dx Diagnosis Office Visit 09/26/2021 9:00a [facility] Gastroenterology Pra ctice Efrain Martinez MD R10.13 Epigastric pain R12 Heartburn K59.00 Constipation, unspecified B96.81 Helicobacter pylori as the c ause of diseases classd elswhr R19.5 Other fecal abnormalities Assessments Date Code Description Provider 09/26/2021 R10.13 Epigastric pain Efrain Martinez MD 09/26/2021 R12 Heartburn Efrain Martinez MD 09/26/2021 K59.00 Constipation, unspecified Efrain Martinez MD 09/26/2021 B96.81 Helicobacter pylori [H. pylori] as the cause of diseases classified elsewhere Efrain Martinez MD 09/26/2021 R19.5 Other fecal abnormalities Efrain Martinez MD Plan of Treatment Future Appointment(s):* 10/10/2021 2:15 pm - Efrain Martinez MD at [facility]enter[facility] 09/26/2021 - Efrain Martinez MD* R10.13 Epigastric pain * R12 Heartburn * K59.00 Constipation, unspecified * B96.81 Helicobacter pylori [H. pylori] as the cause of diseases classified elsewhere * R19.5 Other fecal abnormalities * * New Medication:* Magnesium Citrate 1.745 GM/30ML * Miralax 17 GM/Scoop * Pantoprazole Sodium 40 mg * New Orders:* EGD and Colonoscopy, Ordered: [...] to Reason for Referral Status Appt Date Efrain Martinez M.D. ABD PAIN/H PYLORI - 1 NEW 07/13 TO 01/09 , 9 EST 07/13/21 TO 07/13/22 Scheduled 10/22/2021 [facility], Gastroenterology [address] [facility], [address] [place] [address] [phone]
--- OUTSIDE RECORDS SUMMARY | 2021-10-10 09:54 | CCD ---
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 11716256302451747 Problem Rash R21 Active confirmed 224006057 Problem Klinefelter syndrome Q98.4 Active confirmed 44315384 ALLERGIES Allergen (clinical drug ingredient) Drug/Non Drug Allergy do cumented on EMR Reaction Allergy Type Onset Date Status Shellfish shellfish oral edema Non Drug Allergy 11/22/2019 Active primaquine Primaquine Phosphate(ND Code:[address]-94) Hives Drug Allergy 11/22/2019 Active aspirin Aspirin(ND Code:[address]-32) Hives Drug Allergy Active nitrofurantoin, macrocrystals / nitrofurantoin, monohy drate Macrobid(ND Code:[address]-10) Hives Drug Allergy 11/22/2019 Active Sulfa (for allergy use only) unknown Drug Allergy 2019 Active ENCOUNTERS from 1990 to 2021-07-17 Encounter Location Date Provider Diagnosis [facility] Dermatology [address] [place] [address] [place] [address] Jul, Rossgail Curtis Urticaria L50.9 and Hyperpig mentation L81.9 IMMUNIZATIONS No Information SOCIAL HISTORY Tobacco Use: Social History Observation Description Date Details (start date - stop date) Never Smoker Sex Assigned At : Social History Observation Description Sex Assigned At Unknown Education: Question Answer Notes Level of Education: Finished High School Language: Question Answer Notes Languages spoken: [place] Jew: Question Answer Notes Jew 21 Adventist Sexual Hx: Question Answer Notes Had sex [...] FOR REFERRAL No Information VITAL SIGNS Weight 219.0 lbs Jul, Weight-kg 99.34 kg Jul, Height 68 in Jul, BMI 33.30 kg/m2 Jul, Blood pressure systolic 123 mm Hg Jul, Blood pressure diastolic 81 mm Hg Jul, MEDICATIONS Medication SIG (Take, Route, Frequency, Duration) Notes Start Da te End Date Status Trolamine Salicylate - as directed A ctive HYDROcodone-Ibuprofen 5-200 MG 1 tablet as needed Orally every 6 hrs Active risperiDONE 1 MG 1 tablet Orally Once a day for 30 day(s) Active Mometasone Furoate 0.1 % 1 application Externally Once a day Active Divalproex Sodium 250 MG 1 tablet Orally Twice a day for 30 day(s) Active Xolair 150 MG/ML 300mg (2ml) Subcutaneous every 4 weeks for 30 Days Active hydrOXYzine HCl 25 MG 1 tablet as needed Orally every 8 hrs for 30 day(s) Jul, Active traZODone HCl 50 MG 1 tablet at bedtime as neede d Orally Once a day for 30 day(s) Active Apixaban 5 MG as directed Orally Act xiomara Ivermectin 3 MG 3 tablets Orally once after completing bloodwork for 30 Days Active oxyCODONE HCl 5 MG 1 tablet as needed Orally every 6 hrs Active Cetirizine HCl 10 MG 1 tablet Orally twice a day for 30 day(s) Active Escitalopram Oxalate 10 MG 1 tablet Orally Once a day for 30 day(s) Active Betamethasone Dipropionate Aug 0.05 % 1 application Ex ternally Twice a day for 30 days Active Eliquis Active Ibuprofen 200 MG 1 tablet with food or milk as needed Ora lly Three times a day Active PROCEDURES No Information RESULTS No Results REASON FOR VISIT Body keeps swelling up MEDICAL (GENERAL) HISTORY Type Description Date Medical History klinefelter syndrome Medical History hx filariasis Medical History clot left calf Medical History Blood in urine 1 week ago Medical History HTN Medical History Nephrolithiasis Surgical History Ureteral stent placement 01/11/2021 Hospitalization History Mental health admission 07/03/21 Goals Section No Information Health Concerns No Information MEDICAL EQUIPMENT No Information MENTAL STATUS No Information FUNCTIONAL STATUS No Information ASSESSMENTS Encounter Date Diagnosis Assessment Notes Treatment Notes Treatm ent Clinical Notes Jul, Urticaria (ICD-10 - L50.9) Urticaria well moderately controlled on Xolair. Will refill cetirizine and betamethasone. Recent exacerbation due to cold exposure and previous exacerbation with syncope per patient requiring presentation to [facility]. This condition can be frustrating for providers and the patient as it is transient but has the potential to be severe due to histamine release during episodes of urticaria. It is concerning he is still being placed on cold-weather duty despite cold-weather induced urticaria. Recommend no more than 15 minutes outside when weather is below 50 degrees fahrenheit. Patient may benefit from PCS to warm weather duty station or med board depending upon the needs of the [employer]. Cold weather is likely to always worsen this condition. Jul, Hyperpigmentation (ICD-10 - L81.9) Slowly improving. PLAN OF TREATMENT Medication Medication Name Sig Start Date Stop Date hydrOXYzine HCl 25 MG 1 tablet as needed Orally every 8 hrs for 30 day(s) Jul, Betamethasone Dipropionate Aug 0.05 % 1 application Ex ternally Twice a day for 30 days Ivermectin 3 MG 3 tablets Orally once after completing bloodwork for 30 Days Xolair 150 MG/ML 300mg (2ml) Subcutaneous every 4 weeks for 30 D ays Cetirizine HCl 10 MG 1 tablet Orally twice a day for 30 day(s) Treatment Notes Assessment Notes Clinical Notes Urticaria Urticaria well moder ately controlled on Xolair. Will refill cetirizine and betamethasone. Recent exacerbation due to cold exposure and previous exacerbation with syncope per patient requiring presentation to [facility].This condition can be frustrating for providers and the patient as it is transient but has the potential to be severe due to histamine release during episodes of urticaria. It is concerning he is still being placed on cold-weather duty despite cold-weather induced urticaria.Recommend no more than 15 minutes outside when weather is below 50 degrees fahrenheit. Patient may benefit from PCS to warm weather duty station or med board depending upon the needs of the [employer]. Cold weather is likely to always worsen this condition. Hyperpigmentation Slowly improving. Next Appt Details Provider Name:Ross Curtis, 07-30 04:00:00 PM, [address] [place] [address], [place], [place], Formerly named [facility], Insurance Providers Payer Name Payer Address Payer Phone Insured Name Patient Relati onship to Insured Coverage Start Date Coverage End Date [facility] [employer] [address] [facility] [address] MARVIN LEAHY self
--- OUTSIDE RECORDS SUMMARY | 2021-10-10 09:54 | CCD ---
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 [id number] Problem Rash R21 Active confirmed [id number] Problem Klinefelter syndrome Q98.4 Active confirmed 19112723 ALLERGIES Allergen (clinical drug ingredient) Drug/Non Drug Allergy do cumented on EMR Reaction Allergy Type Onset Date Status Shellfish shellfish oral edema Non Drug Allergy 11/22/2019 Active primaquine Primaquine Phosphate(ND Code:[address]-28) Hives Drug Allergy 11/22/2019 Active aspirin Aspirin(ND Code:[address]-55) Hives Drug Allergy Active nitrofurantoin, macrocrystals / nitrofurantoin, monohy drate Macrobid(ND Code:[address]-82) Hives Drug Allergy 11/22/2019 Active Sulfa (for allergy use only) unknown Drug Allergy 2019 Active ENCOUNTERS from 1990 to 2021-07-31 Encounter Location Date Provider Diagnosis [facility] Dermatology [address] [facility] [phone] [place] [address] Jul, Rossgail Curtis Urticaria L50.9 and Hyperpig mentation L81.9 IMMUNIZATIONS No Information SOCIAL HISTORY Tobacco Use: Social History Observation Description Date Details (start date - stop date) Never Smoker Sex Assigned At : Social History Observation Description Sex Assigned At Unknown Education: Question Answer Notes Level of Education: Finished High School Language: Question Answer Notes Languages spoken: Cuban Nondenominational: Question Answer Notes Nondenominational 21 Worship Sexual Hx: Question Answer Notes Had sex [...] FOR REFERRAL No Information VITAL SIGNS Weight 216.4 lbs Jul, Weight-kg 98.16 kg Jul, Height 68 in Jul, BMI 32.90 kg/m2 Jul, MEDICATIONS Medication SIG (Take, Route, Frequency, Duration) Notes Start Da te End Date Status hydrOXYzine HCl 25 MG 1 tablet as needed Orally every 8 hrs for 30 da y(s) Active Xolair 150 MG/ML 300mg (2ml) Subcutaneous every 4 weeks for 30 Days Active Cetirizine HCl 10 MG 1 tablet Orally four times d aily (urtcaria dosing, please review literature) for 30 day(s) Jul, Active Ivermectin 3 MG 3 tablets Orally once after completing bloodwork for 30 Days Active Escitalopram Oxalate 10 MG 1 tablet Orally Once a day for 30 day(s) Active risperiDONE 1 MG 1 tablet Orally Once a day for 30 day(s) Active Trolamine Salicylate - as directed A ctive Apixaban 5 MG as directed Orally Act xiomara Cetirizine HCl 10 MG 1 tablet Orally twice a day for 30 day(s) Active Ibuprofen 200 MG 1 tablet with food or milk as needed Ora lly Three times a day Active Mometasone Furoate 0.1 % 1 application Externally Once a day Active Betamethasone Dipropionate Aug 0.05 % 1 application Ex ternally Twice a day for 30 days Active HYDROcodone-Ibuprofen 5-200 MG 1 tablet as needed Orally every 6 hrs Active oxyCODONE HCl 5 MG 1 tablet as needed Orally every 6 hrs Active traZODone HCl 50 MG 1 tablet at bedtime as neede d Orally Once a day for 30 day(s) Active Divalproex Sodium 250 MG 1 tablet Orally Twice a day for 30 day(s) Active Eliquis Active PROCEDURES No Information RESULTS No Results REASON FOR VISIT cold urticaria MEDICAL (GENERAL) HISTORY Type Description [...] with syncope per patient requiring presentation to [facility]. This condition can be frustrating for [...] is likely to always worsen this condition. 07/30/2021 Marvin's condition can present a challenge as it is intermittent and does not always appear serious. This condition is mediated by histamine release, which can be of concern for losing consciousness, airway impact (similar to allergic reaction), and GI issues. Recommendations continue as above. Recommend no more than 15 minutes outside when weather is below 50 degrees fahrenheit. Recommend patient be allowed to wear clothing that allows him to maintain temperature. This includes long-sleeve PT, jacket, PT pants, gloves, socks. Having this individual PT outside as the weather cools off puts him at real risk to his health and is of concern. Please do not hesitate to call me is you have any questions regarding this individual - [phone]. Jul, Hyperpigmentation (ICD-10 - L81.9) Slowly improving. PLAN OF TREATMENT Medication Medication Name Sig Start Date Stop Date Cetirizine HCl 10 MG 1 tablet Orally twice a day for 30 day(s) Cetirizine HCl 10 MG 1 tablet Orally four times d aily (urtcaria dosing, please review literature) for 30 day(s) Jul, Xolair 150 MG/ML 300mg (2ml) Subcutaneous every 4 weeks for 30 D ays Betamethasone Dipropionate Aug 0.05 % 1 application Ex ternally Twice a day for 30 days Ivermectin 3 MG 3 tablets Orally once after completing bloodwork for 30 Days hydrOXYzine HCl 25 MG 1 tablet as needed Orally every 8 hrs for 30 day(s) Treatment Notes Assessment Notes Clinical Notes Urticaria Urticaria well moder ately controlled on Xolair. Will refill cetirizine and betamethasone. Recent exacerbation due to cold exposure and previous exacerbation with syncope per patient requiring presentation to [facility].This condition can be frustrating for providers [...] weather is likely to always worsen this condition.07/30/2021Marvin's condition can present a challenge as it is intermittent and does not always appear serious. This condition is mediated by histamine release, which can be of concern for losing consciousness, airway impact (similar to allergic reaction), and GI issues. Recommendations continue as above.Recommend no more than 15 minutes outside when weather is below 50 degrees fahrenheit.Recommend patient be allowed to wear clothing that allows him to maintain temperature. This includes long-sleeve PT, jacket, PT pants, gloves, socks. Having this individual PT outside as the weather cools off puts him at real risk to his health and is of concern. Please do not hesitate to call me is you have any questions regarding this individual - [phone]. Hyperpigmentation Slowly improving. Insurance Providers Payer Name Payer Address Payer Phone Insured Name Patient Relati onship to Insured Coverage Start Date Coverage End Date [facility] [employer] [id number] [place] [address] MARVIN LEAHY self
--- OUTSIDE RECORDS SUMMARY | 2021-10-10 09:54 | CCD | Continuity of Care Document ---
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 Jyoti Lombardo MD Onset: 02/05/2021 Depressive disorder Jyoti Lombardo MD Onset: 02/05/2021 Male infertility yJoti Lombardo MD Onset: 02/05/2021 History of thromboembolism of vein Jyoti Lombardo MD Ons et: 08/08/2021 Urticaria due to cold and heat Jyoti Lombardo MD Onset: 08/08/2021 Obstructive sleep apnea syndrome Jyoti Lombardo MD Onset : 08/08/2021 Social History Type Date Description Comments Sex Unknown Tobacco Use Start: Unknown Never Smoked Cigarettes Tobacco Use Start: Unknown Never Smoked Cigars Tobacco Use Start: Unknown Never Smoked A Pipe Smoking Status Reviewed: 01/23/21 Never Smoked A Pipe Tobacco Use Start: Unknown Never Used Smokeless Tobacco ETOH Use Occasionally consumes alcohol Tobacco Use Start: Unknown Patient has never smoked Recreational Drug Use Denies Drug Use Allergies, Adverse Reactions, Alerts Active Allergies Criticality Reaction | Severity Comments Date Shellfish-Derived Products Unable to assess criticality Diff iculty swallowing, Hives | Severe 09/07/2020 NKEA Unable to assess criticality 09/07/2020 Sulfa Antibiotics Unable to assess criticality unknown 11/14/2020 Macrobid Unable to assess criticality unknown 11/14/2020 Aspirin Unable to assess criticality unknown 11/14/2020 Primaquine Unable to assess criticality unknown 11/14/2020 Inactive Allergies NKDA Unable to assess criticality 09/07/2020 Medications Active Medications SIG Qnty Indications Ordering Provide r Date Trazodone HCL 50mg Tablets 2 tab by mouth daily at bedtime Unknown Trolamine Liquid for cold ur ticaria Unknown Xolair 150mg/ml Soln Prefill Syrin ge 300mg once a month. For urticaria Unknown Ivermectin 3mg Tablets Take 3 tablets every 6 months for cold urticaria Unknown Methocarbamol 500mg Tablets 1 tab by mouth twice a day as needed Unknown Lidocaine Pain Relief 4% Patches use daily. 12 hours on and 12 hours off. Unknown Mometasone Furoate 0.1% Cream apply daily after a shower on the rough areas of skin Unknow n Chorionic Gonadotropin [id number] Solution Rec Unknown Buspirone HCL 10mg Tablets Unknown Quetiapine Fumarate 25mg Tablets Unknown Miralax 17GM/Scoop Powder as needed Unknown Immunizations Description No Information Available Vital Signs Date Vital Result Comment 08/08/2021 3:47pm BP Systolic 122 mmHg BP Diastolic 78 mmHg Heart Rate 69 /min Body Temperature 96.5 F Respiratory Rate 16 /min O2 % BldC Oximetry 98 % Weight 222.00 lb Weight 100.699 kg Height 68 inches 5'8" BMI (Body Mass Index) 33.8 kg/m2 BSA (Body Surface Area) 2.14 m2 06/18/2021 1:50pm BP Systolic 120 mmHg BP Diastolic 73 mmHg Heart Rate 83 /min Body Temperature 97.8 F Respiratory Rate 20 /min O2 % BldC Oximetry 97 % Results Test Acquired Date Facility Test Result H/L Range Note Laboratory test finding 08/09/2021 [facility] D-Dimer <0.27 ug/mL 0.27 - 0.50 1 Xray 08/08/2021 [facility] [address] [place] [address] [phone] US Doppler Unilateral Venous Leg LT <pending> Inhouse Ua 06/18/2021 In Office Ua Color yellow Normal: Yellow Ua Appearance cloudy Normal: Clear Spec [place] 1.005 1.001-1.030 Ua PH Test Strip 8 5-9 Leukocytes - Normal: Negative Ua Nitrate - Normal: Negative Ua Protein - Normal: Negative Inhouse Glucose - Normal: Negative Ua Ketones - Noraml: Negative Urobilinogen - Normal: Negative Ua Bilirubin - Normal: Negative Blood - Noraml: Negative Inhouse Ua 02/12/2021 In Office Ua Color brown Normal: Yellow Ua Appearance cloudy Normal: Clear Spec [place] 1.010 1.001-1.030 Ua PH Test Strip 8 5-9 Leukocytes + Normal: Negative Ua Nitrate neg Normal: Negative Ua Protein ++ Normal: Negative Inhouse Glucose neg Normal: Negative Ua Ketones neg Noraml: Negative Urobilinogen neg Normal: Negative Ua Bilirubin neg Normal: Negative Blood 250 High Noraml: Negative 1 .~.~<DG1.3.1>Z86.718</DG1.3.1><DG1.3.1>Z86.718</DG1.3.1><DG1.3.1>Z86.718</DG1.3. 1><D Procedures Date Code Description Status 08/08/2021 05378 Office/Outpatient Established Lo w MDM 20-29 Min Completed 06/18/2021 25431 Office/Outpatient Established SF MDM 10-19 Min Completed 02/12/2021 95452 Office/Outpatient Established SF MDM 10-19 Min Completed Medical Devices Description No Information Available Encounters Type Date Location Provider Dx Diagnosis Office Visit 08/08/2021 4:00p Family Practice Jyoti Lombardo MD Z86.718 Personal history of other venous thrombosis and embolism F32.89 Other specified depressive e pisodes L50.2 Urticaria due to cold and he at G47.33 Obstructive sleep apnea (linn lt) (pediatric) Assessments Date Code Description Provider 08/08/2021 Z86.718 Personal history of other venous thrombosis and embolism Jyoti Lombardo MD 08/08/2021 F32.89 Other specified depressive episo dorita Jyoti Lombardo MD 08/08/2021 L50.2 Urticaria due to cold and heat A cory Lombardo MD 08/08/2021 G47.33 Obstructive sleep apnea (adult) (pediatric) Jyoti Lombardo MD 06/18/2021 R35.0 Frequency of micturition Benito Willett M.D. 06/18/2021 M25.552 Pain in left hip Benito Willett M.D. 06/18/2021 Z71.2 Person consulting fo r explanation of examination or test findings Bneito Willett M.D. 06/18/2021 N13.0 Hydronephrosis with ureteropelvi c junction obstruction Benito Willett M.D. 06/18/2021 N48.29 Other inflammatory disorders of penis Benito Willett M.D. 06/18/2021 R30.0 Dysuria Domingo Shepard 06/18/2021 R31.0 Gross hematuria Domingo Shepard 02/12/2021 N13.0 Hydronephrosis with ureteropelvi c junction obstruction Benito Willett M.D. 02/12/2021 R35.0 Frequency of micturition Benito Willett M.D. 02/12/2021 N48.29 Other inflammatory disorders of penis Benito Willett M.D. 02/12/2021 R30.0 Dysuria Domingo Shepard 02/12/2021 R31.0 Gross hematuria Domingo Shepard 02/12/2021 N46.9 Male infertility, unspecified Fe lix Juanis Willett M.D. 02/12/2021 M54.5 Low back pain Domingo Shepard 02/12/2021 R82.90 Unspecified abnormal findings in urine Benito Willett M.D. Plan of Treatment Future Appointment(s):* 11/07/2021 4:00 pm - Jyoti Lombardo MD at [facility] * 12/24/2021 9:30 am - Urology Resource Schedule at [facility] Urology Center Functional Status Description No Information Available Mental Status Description No Information Available Referrals Description No Information Available
--- OUTSIDE RECORDS SUMMARY | 2021-10-10 09:54 | CCD | Continuity of Care Document ---
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 Jyoti Lombardo MD Onset: 02/05/2021 Hydronephrosis with ureteropelvic junction obstruction Jyoti Lombardo MD Onset: 02/05/2021 Tom hematuria Jyoti Lombardo MD Onset: 02/05/2021 Abdominal pain PERLA Concepcion Onset: 2020 Social History Type Date Description Comments Sex [...] areas of skin Unknow n Chorionic Gonadotropin [id number] Solution Rec Unknown Buspirone HCL 10mg Tablets [...] Date Facility Test Result H/L Range Note Xray 08/08/2021 [facility] [address] [place] [address] [phone] US Doppler Unilateral Venous Leg LT <pending> Inhouse Ua 06/18/2021 In Office Ua Color yellow Normal: Yellow Ua Appearance cloudy Normal: Clear Spec [place] 1.005 1.001-1.030 Ua PH Test Strip 8 5-9 Leukocytes - Normal: Negative Ua Nitrate - Normal: Negative Ua Protein - Normal: Negative Inhouse Glucose - Normal: Negative Ua Ketones - Noraml: Negative Urobilinogen - Normal: Negative Ua Bilirubin - Normal: Negative Blood - Noraml: Negative Inhouse Ua 02/12/2021 In Office Ua Color brown Normal: Yellow Ua Appearance cloudy Normal: Clear Spec [place] 1.010 1.001-1.030 Ua PH Test Strip 8 5-9 Leukocytes + Normal: Negative Ua Nitrate neg Normal: Negative Ua Protein ++ Normal: Negative Inhouse Glucose neg Normal: Negative Ua Ketones neg Noraml: Negative Urobilinogen neg Normal: Negative Ua Bilirubin neg Normal: Negative Blood 250 High Noraml: Negative Procedures Date Code Description Status 06/18/2021 61479 Office/Outpatient Established SF MDM 10-19 Min Completed 02/12/2021 69988 Office/Outpatient Established SF MDM 10-19 Min Completed Medical Devices Description No Information Available Encounters Description No Information Available Assessments Date Code Description Provider 06/18/2021 R35.0 Frequency of micturition Benito Willett M.D. 06/18/2021 M25.552 Pain in left hip Benito Willett M.D. 06/18/2021 Z71.2 Person consulting fo r explanation of examination or test findings Benito Wileltt M.D. 06/18/2021 N13.0 Hydronephrosis with ureteropelvi c [...] pm - Jyoti Lombardo MD at [facility] * 12/24/2021 9:30 am - Urology Resource Schedule at [facility] Urology Center Functional Status Description No Information Available Mental Status Description No Information Available Referrals Description No Information Available
--- OUTSIDE RECORDS SUMMARY | 2021-10-10 09:54 | CCD | Continuity of Care Document ---
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 Jyoti Lombardo MD Onset: 02/05/2021 Depressive disorder Jyoti Lombardo MD Onset: 02/05/2021 Male infertility Jyoti Lombardo MD Onset: 02/05/2021 History of thromboembolism [...] areas of skin Unknow n Chorionic Gonadotropin [id number] Solution Rec Unknown Buspirone HCL 10mg Tablets [...] H/L Range Note Laboratory test finding 08/09/2021 [facility] D-Dimer <0.27 ug/mL 0.27 - 0.50 1 Protein C&S Panel 08/09/2021 [facility] Protein C Antigen 108 % 60-150 Protein S, Total 82 % 60-150 2 Protein S, Free 115 % 61-136 3 Antithrombin III Panel 08/09/2021 [facility] Antithrombin Activity 114 % 75-135 4 Antithrombin Antigen 81 % 72-124 5 Lupus Type Anticoag 08/09/2021 [facility] Dilute ProthrombinTime(dPT) 42.4 sec 0.0-55.0 6 dPT Confirm Ratio 1.31 Ratio 0.00-1.40 7 Thrombin Time 19.0 sec 0.0-23.0 PTT-LA 31.8 sec 0.0-51.9 dRVVT 41.8 sec 0.0-47.0 Lupus ReflexInterpretation Comment: 8 Cardiolipin Antibody Igg/Igm 08/09/2021 [facility] Anticardiolipin Ab,IgG,Qn <9 GPLU/mL 0-14 9 Anticardiolipin Ab,IgM,Qn 16 MPLU/mL High 0-12 10 Xray 08/08/2021 [facility] [address] [place] [address] [phone] US Doppler Unilateral Venous Leg LT <pending> Inhouse Ua 06/18/2021 In Office Ua Color yellow Normal: Yellow Ua Appearance cloudy Normal: Clear Spec [place] 1.005 1.001-1.030 Ua PH Test Strip 8 5-9 Leukocytes - Normal: Negative Ua Nitrate - Normal: Negative Ua Protein - Normal: Negative Inhouse Glucose - Normal: Negative Ua Ketones - Noraml: Negative Urobilinogen - Normal: Negative Ua Bilirubin - Normal: Negative Blood - Noraml: Negative Inhouse Ua 02/12/2021 In Office Ua Color brown Normal: Yellow Ua Appearance cloudy Normal: Clear Spec [place] 1.010 1.001-1.030 Ua PH Test Strip 8 5-9 Leukocytes + Normal: Negative Ua Nitrate neg Normal: Negative Ua Protein ++ Normal: Negative Inhouse Glucose neg Normal: Negative Ua Ketones neg Noraml: Negative Urobilinogen neg Normal: Negative Ua Bilirubin neg Normal: Negative Blood 250 High Noraml: Negative 1 .~.~<DG1.3.1>Z86.718</DG1.3.1><DG1.3.1>Z86.718</DG1.3.1><DG1.3.1>Z86.718</DG1.3. 1><D 2 This test was developed and its performance characteristics determined by [facility]. It has not been cleared or approved by the Food and Drug Administration. 3 Please note reference inte rval change 4 Direct Xa inhibitor anticoag ulants such as rivaroxaban, apixaban and edoxaban will lead to spuriously elevated antithrombin activity levels possibly masking a deficiency. 5 This test was developed and its performance characteristics determined by [facility]. It has not been cleared or approved by the Food and Drug Administration. 6 Effective September 02 Dilute Prothrombin Time (dPT) reference interval will be changin g to: 0.0 - 47.6 sec. 7 Effective September 02, 2021 dPT Confirm Ratio reference interval will be changing to: 0.00 - 1.34 ratio 8 No lupus anticoagulant was d etected. 9 Negative: <15 Indeterminate: 15 - 20 Low-Med Positive: >20 - 80 High Positive: >80 10 Negative: <13 Indeterminate: 13 - 20 Low-Med Positive: >20 - 80 High Positive: >80 Procedures Date Code Description Status 08/08/2021 66587 Office/Outpatient Established Lo w MDM 20-29 Min Completed 06/18/2021 81042 Office/Outpatient Established SF MDM 10-19 Min Completed 02/12/2021 92001 Office/Outpatient Established SF MDM 10-19 Min Completed Medical Devices Description No Information Available Encounters Description No Information Available Assessments Date Code Description Provider 08/08/2021 Z86.718 [...] explanation of examination or test findings Benito Willett M.D. 06/18/2021 N13.0 Hydronephrosis with ureteropelvi [...] Shepard 02/12/2021 N46.9 Male infertility, unspecified Fe bennettx Juanis Willett M.D. 02/12/2021 M54.5 Low back pain Domingo Shepard 02/12/2021 R82.90 Unspecified abnormal findings in urine Benito Willett M.D. Plan of Treatment Future Appointment(s):* 11/07/2021 4:00 pm - Jyoti Lombardo MD at [facility] * 12/24/2021 9:30 am - Urology Resource Schedule at [facility] Urology Center Functional Status Description No Information Available Mental Status Description No Information Available Referrals Description No Information Available
--- OUTSIDE RECORDS SUMMARY | 2021-10-10 09:58 | CCD ---
Author Author [facility] Organization [facility] Address Unknown Phone Unavailable Care Team Providers Care Hat Block Bench Hand Name Role Phone Yazmin BENZ MD Unavailable Unavailable Yazmin BENZ MD Unavailable Unavailable Yazmin BENZ MD Unavailable Unavailable Yazmin BENZ MD Unavailable Unavailable Yazmin BENZ MD Unavailable Unavailable Yazmin BENZ MD Unavailable Unavailable Yazmin BENZ MD Unavailable Unavailable Yazmin BENZ MD Unavailable Unavailable Carter Small MD Unavailable Unavailable Carter Small MD Unavailable Unavailable Carter Small MD Unavailable Unavailable Carter Small MD Unavailable Unavailable Carter Small MD Unavailable Unavailable Carter Small MD Unavailable Unavailable Jesse James MD Unavailable Unavailable Jesse James MD Unavailable Unavailable Jesse James MD Unavailable Unavailable Kunnumpurath, F Jyoti MD [...] Unavailable Kunnumpurath, F Jyoti MD Unavailable Unavailable OBEN, T BENITO MD [...] T BENITO MD Unavailable Unavailable OBEN, T BENIOT MD Unavailable Unavailable OBEN, T BENITO MD [...] Unavailable OBEN, T BENITO MD Unavailable Unavailable SUSEI, L LLUVIA MD Unavailable Unavailable SUSIE, L LLUVIA MD Unavailable Unavailable SUSIE, L LLUVIA MD Unavailable Unavailable SUSIE, L LLUVIA MD Unavailable Unavailable SUSIE, L LLUVIA MD Unavailable Unavailable SUSIE, L LLUVIA MD Unavailable Unavailable SUSIE, L LLUVIA MD Unavailable Unavailable SUSIE, L LLUVIA MD Unavailable Unavailable SUSIE, L LLUVIA MD Unavailable Unavailable SUSIE, L LLUVIA MD Unavailable Unavailable SUSIE, L LLUVIA MD Unavailable Unavailable SUSIE, L LLUVIA MD Unavailable Unavailable SUSIE, L LLUVIA MD Unavailable Unavailable SUSIE, L LLUVIA MD Unavailable Unavailable SUSIE, L LLUVIA MD Unavailable Unavailable SUSIE, L LLUVIA MD Unavailable Unavailable SUSIE, L LLUVIA MD Unavailable Unavailable SUSIE, L LLUVIA MD Unavailable Unavailable SUSIE, L LLUVIA MD Unavailable Unavailable SUSIE, L LLUVIA MD Unavailable Unavailable Norvell Falanga, A Cari DIRECTOR LOSS PREVENTION Unavailable Unavailable Norvell Falanga, A Cari DIRECTOR LOSS PREVENTION Unavailable Unavailable Oscar Falanga, A Cari DIRECTOR LOSS PREVENTION Unavailable Unavailable Oscar Falanga, A Cari DIRECTOR LOSS PREVENTION Unavailable Unavailable Norvell Falanga, A Cari DIRECTOR LOSS PREVENTION Unavailable Unavailable Norvell Falanga, A Cari DIRECTOR LOSS PREVENTION Unavailable Unavailable Norvell Falanga, A Cari DIRECTOR LOSS PREVENTION Unavailable Unavailable Oscar Falanga, A Cari DIRECTOR LOSS PREVENTION Unavailable Unavailable Oscar Falanga, A Cari DIRECTOR LOSS PREVENTION Unavailable Unavailable Oscar Falanga, A Cari DIRECTOR LOSS PREVENTION Unavailable Unavailable Norvell Falanga, A Cari DIRECTOR LOSS PREVENTION Unavailable Unavailable Norvell Falanga, A Cari DIRECTOR LOSS PREVENTION Unavailable Unavailable Norvell Falanga, A Cari DIRECTOR LOSS PREVENTION Unavailable Unavailable Oscar Falanga, A Cari DIRECTOR LOSS PREVENTION Unavailable Unavailable Oscar Falanga, A Cari DIRECTOR LOSS PREVENTION Unavailable Unavailable Oscar Falanga, A Cari DIRECTOR LOSS PREVENTION Unavailable Unavailable Norvell Falanga, A Cari DIRECTOR LOSS PREVENTION Unavailable Unavailable Norvell Falanga, A Acri DIRECTOR LOSS PREVENTION Unavailable Unavailable Norvell Falanga, A Cari DIRECTOR LOSS PREVENTION Unavailable Unavailable Oscar Falanga, A Cari DIRECTOR LOSS PREVENTION Unavailable Unavailable Norvell Falanga, A Cari DIRECTOR LOSS PREVENTION Unavailable Unavailable Norvell Falanga, A Cari DIRECTOR LOSS PREVENTION Unavailable Unavailable Norvell Falanga, A Cari DIRECTOR LOSS PREVENTION Unavailable Unavailable Norvell Falanga, A Cari DIRECTOR LOSS PREVENTION Unavailable Unavailable Oscar Falanga, A Cari DIRECTOR LOSS PREVENTION Unavailable Unavailable Oscar Falanga, A Cari DIRECTOR LOSS PREVENTION Unavailable Unavailable Oscar Falanga, A Cari DIRECTOR LOSS PREVENTION Unavailable Unavailable Oscar Falanga, A Cari DIRECTOR LOSS PREVENTION Unavailable Unavailable Oscar Falanga, A Cari DIRECTOR LOSS PREVENTION Unavailable Unavailable Oscar Falanga, A Cari DIRECTOR LOSS PREVENTION Unavailable Unavailable REINDL, EFRAIN PRICE Unavailable Unavailable REINDL, EFRAIN PRICE Unavailable Unavailable REINDL, EFRAIN PRICE Unavailable Unavailable REINDL, EFRAIN PRICE Unavailable Unavailable REINDL, EFRAIN PRICE Unavailable Unavailable REINDL, EFRAIN PRICE Unavailable Unavailable REINDL, EFRAIN PRICE Unavailable Unavailable REINDL, EFRAIN PRICE Unavailable Unavailable REINDL, EFRAIN PRICE Unavailable Unavailable REINDL, EFRAIN PRICE Unavailable Unavailable REINDL, EFRAIN PRICE Unavailable Unavailable REINDL, EFRAIN PRICE Unavailable Unavailable REINDL, EFRAIN PRICE Unavailable Unavailable REINDL, EFRAIN PRICE Unavailable Unavailable REINDL, EFRAIN PRICE Unavailable Unavailable REINDL, EFRAIN PRICE Unavailable Unavailable REINDL, EFRAIN PRICE Unavailable Unavailable REINDL, EFRAIN PRICE Unavailable Unavailable REINDL, EFRAIN PRICE Unavailable Unavailable REINDL, EFRAIN PRICE Unavailable Unavailable REINDL, EFRAIN PRICE Unavailable Unavailable REINDL, EFRAIN PRICE Unavailable Unavailable REINDL, EFRAIN PRICE Unavailable Unavailable REINDL, EFRAIN PRICE Unavailable Unavailable REINDL, EFRAIN PRICE Unavailable Unavailable REINDL, EFRAIN PRICE Unavailable Unavailable REINDL, EFRAIN PRICE Unavailable Unavailable REINDL, EFRAIN PRICE Unavailable Unavailable REINDL, EFRAIN PRICE Unavailable Unavailable REINDL, EFRAIN PRICE Unavailable Unavailable REINDL, EFRAIN PRICE Unavailable Unavailable REINDL, EFRAIN PRICE Unavailable Unavailable REINDL, EFRAIN PRICE Unavailable Unavailable REINDL, EFRAIN PRICE Unavailable Unavailable REINDL, EFRAIN PRICE Unavailable Unavailable REINDL, EFRAIN PRICE Unavailable Unavailable REINDL, EFRAIN PRICE Unavailable Unavailable REINDL, EFRAIN PRICE Unavailable Unavailable REINDL, EFRAIN PRICE Unavailable Unavailable REINDL, EFRAIN PRICE Unavailable Unavailable REINDL, EFRAIN PRICE Unavailable Unavailable REINDL, EFRAIN PRICE Unavailable Unavailable Montana ALVARADO MD Unavailable Unavailable Montana ALVARADO MD Unavailable Unavailable Montana ALVARADO MD Unavailable Unavailable Montana ALVARADO MD Unavailable Unavailable Montana ALVARADO MD Unavailable Unavailable Montana ALVARADO MD Unavailable Unavailable Montana ALVARADO MD Unavailable Unavailable Montana ALVARADO MD Unavailable Unavailable Montana ALVARADO MD Unavailable Unavailable Montana ALVARADO MD Unavailable Unavailable Montana ALVARADO MD Unavailable Unavailable Montana ALVARADO MD Unavailable Unavailable Montana ALVARADO MD Unavailable Unavailable Montana ALVARADO MD Unavailable Unavailable Montana ALVARADO MD Unavailable Unavailable Montana ALVARADO MD Unavailable Unavailable Montana ALVARADO MD Unavailable Unavailable Saleem, Dhriti Unavailable TURRIN, EVELIO Unavailable Unavailable TURRIN, EVELIO Unavailable Unavailable TURRIN, EVELIO Unavailable Unavailable TURRIN, EVELIO Unavailable Unavailable Montana Fernandez MD Unavailable Unavailable Montana Fernandez MD Unavailable Unavailable Montana Fernandez MD Unavailable Unavailable Montana Fernandez MD Unavailable Unavailable Montana Fernandez MD Unavailable Unavailable Montana Fernandez MD Unavailable Unavailable Montana Fernandez MD Unavailable Unavailable Montana Fernandez MD Unavailable Unavailable Montana Fernandez MD Unavailable Unavailable Montana Fernandez MD Unavailable Unavailable Montana Fernandez MD Unavailable Unavailable Montana Fernandez MD Unavailable Unavailable Montana Fernandez MD Unavailable Unavailable Montana Fernandez MD Unavailable Unavailable Montana Fernandez MD Unavailable Unavailable Montana Fernandez MD Unavailable Unavailable Montana Fernandez MD Unavailable Unavailable Montana Fernandez MD Unavailable Unavailable ERIC SHI MD Unavailable Unavailable ERIC SHI MD Unavailable Unavailable ERIC SHI MD Unavailable Unavailable ERIC SHI MD Unavailable Unavailable ERIC SHI MD Unavailable Unavailable ERIC SHI MD Unavailable Unavailable ERIC SHI MD Unavailable Unavailable ERIC SHI MD Unavailable Unavailable ERIC SHI MD Unavailable Unavailable ERIC SHI MD Unavailable Unavailable ERIC SHI MD Unavailable Unavailable ERIC SHI MD Unavailable Unavailable JAZMIN, MAQBOOL DYLAN MD [...] Unavailable JAZMIN, MAQBOOL DYLAN MD Unavailable Unavailable Bola WILLETT MD Unavailable Unavailable Bola WILLETT MD Unavailable Unavailable OBBola JONES MD Unavailable Unavailable Bola WILLETT MD Unavailable Unavailable Bola WILLETT MD Unavailable Unavailable OBBola JONES MD Unavailable Unavailable Bola WILLETT MD Unavailable Unavailable Bola WILLETT MD Unavailable Unavailable Bola WILLETT MD Unavailable Unavailable Bola WILLETT MD Unavailable Unavailable OBBola JONES MD Unavailable Unavailable OBBola JONES MD Unavailable Unavailable OBBola JONES MD Unavailable Unavailable OBBola JONES MD Unavailable Unavailable OBBola JONES MD Unavailable Unavailable OBBola JONES MD Unavailable Unavailable OBEN, T BENITO MD [...] Unavailable OBEN, T BENITO MD Unavailable Unavailable Isabel Sutherland PA Unavailable [phone] Isabel Sutherland PA Unavailable [phone] Isabel Sutherland PA Unavailable [phone] Isabel Sutherland PA Unavailable [phone] Isabel Sutherland PA Unavailable [phone] Isabel Sutherland PA Unavailable [phone] Isabel Sutherland Unavailable [phone] Isabel Sutherlandrick PA Unavailable [phone] Isabel Sutherlandrick PA Unavailable [phone] Isabel Sutherland Mike PA Unavailable [phone] Isabel Sutherland Mike PA Unavailable [phone] Isabel Sutherlandrick PA Unavailable [phone] Isabel Sutherland PA Unavailable [phone] Millicent DAVID MD Unavailable Unavailable Millicent DAVID MD Unavailable Unavailable Millicent DAVID MD Unavailable Unavailable Millicent DAVID MD Unavailable Unavailable Millicent DAVID MD Unavailable Unavailable Millicent DAVID MD Unavailable Unavailable CHANLIECCO, Benjy SEGAL MD Unavailable Unavailable CHANLIECCO, Benjy SEGAL MD Unavailable Unavailable CHANLIECCO, Benjy SEGAL MD Unavailable Unavailable CHANLIECCO, Benjy SEGAL MD Unavailable Unavailable CHANLIECCO, Benjy SEGAL MD Unavailable Unavailable CHANLIECCO, Benjy SEGAL MD Unavailable Unavailable CHANLIECCO, Benjy SEGAL MD Unavailable Unavailable CHANLIECCO, Benjy SEGAL MD Unavailable Unavailable CHANLIECCO, Benjy SEGAL MD Unavailable Unavailable CHANLIECCO, Benjy SEGAL MD Unavailable Unavailable CHANLIECCO, Benjy SEGAL MD Unavailable Unavailable KIARA, Benjy Hall MD [...] KIARA, Benjy Hall MD Unavailable Unavailable KIARA, Bejny Hall MD Unavailable Unavailable KIARA, Benjy Hall [...] Unavailable KIARA, Benjy Hall MD Unavailable Unavailable Maya Bass MD Unavailable Unavailable Maya Bass MD Unavailable Unavailable Maya Bass MD Unavailable Unavailable Maya Bass MD Unavailable Unavailable Maya Bass MD Unavailable Unavailable Maya Bass MD Unavailable Unavailable Maya Bass MD Unavailable Unavailable Maya Bass MD Unavailable Unavailable Maya Bass MD Unavailable Unavailable Maya Bass MD Unavailable Unavailable Maya Bsas MD Unavailable Unavailable Maya Bass MD Unavailable Unavailable Maya Bass MD Unavailable Unavailable Maya Bass MD Unavailable Unavailable Maya Bass MD Unavailable Unavailable Maya Bass MD Unavailable Unavailable Maya Bass MD Unavailable Unavailable Maya Bass MD Unavailable Unavailable Maya Bass MD Unavailable Unavailable SHAYE, S RUPESH PRICE Unavailable Unavailable SHAYE, S RUPESH PRICE Unavailable Unavailable SHAYE, S RUPESH MD Unavailable Unavailable SHAYE, S RUPESH MD Unavailable Unavailable SHAYE, S RUPESH MD Unavailable Unavailable SHAYE, S RUPESH MD Unavailable Unavailable SHAYE, S RUPESH MD Unavailable Unavailable SHAYE, S RUPESH MD Unavailable Unavailable SHAYE, S RUPESH MD Unavailable Unavailable SHAYE, S RUPESH MD Unavailable Unavailable SHAYE, S RUPESH MD Unavailable Unavailable SHAYE, S RUPESH MD Unavailable Unavailable SHAYE, S RUPESH MD Unavailable Unavailable SHAYE, S RUPESH MD Unavailable Unavailable SHAYE, S RUPESH MD Unavailable Unavailable SHAYE, S RUPESH MD Unavailable Unavailable SHAYE, S RUPESH MD Unavailable Unavailable SHAYE, S RUPESH MD Unavailable Unavailable SHAYE, S RUPESH MD Unavailable Unavailable SHAYE, S RUPESH MD Unavailable Unavailable SHAYE, S RUPESH MD Unavailable Unavailable Kunnumpurath, F Jyoti MD [...] Unavailable Kunnumpurath, F Jyoti MD Unavailable Unavailable Megna, L Len PA-C Unavailable Unavailable Megna, L Len PA-C Unavailable Unavailable Megna, L Len PA-C Unavailable Unavailable Megna, L Len PA-C Unavailable Unavailable Megna, L Len PA-C Unavailable Unavailable Megna, L Len PA-C Unavailable Unavailable Megna, L Len PA-C Unavailable Unavailable Megna, L Len PA-C Unavailable Unavailable Megna, L Len PA-C Unavailable Unavailable Megna, L Len PA-C Unavailable Unavailable Megna, L Len PA-C Unavailable Unavailable Benjy GABRIEL MD Unavailable Unavailable Benjy GABRIEL MD Unavailable Unavailable Benjy GABRIEL MD Unavailable Unavailable Benjy GABRIEL MD Unavailable Unavailable Benjy GABRIEL MD Unavailable Unavailable Benjy GABRIEL MD Unavailable Unavailable Ileana Rodriguez MD Unavailable Unavailable Ileana Rodriguez MD Unavailable Unavailable Ileana Rodriguez MD Unavailable Unavailable Ileana Rodriguez MD Unavailable Unavailable Ileana Rodriguez MD Unavailable Unavailable Ileana Rodriguez MD Unavailable Unavailable Ileana Rodriguez MD Unavailable Unavailable Ileana Rodriguez MD Unavailable Unavailable Ileana Rodriguez MD Unavailable Unavailable Ileana Rodriguez MD Unavailable Unavailable Ileana Rodriguez MD Unavailable Unavailable Ileana Rodriguez MD Unavailable Unavailable Ileana Rodriguez MD Unavailable Unavailable Ileana Rodriguez MD Unavailable Unavailable Ileana Rodriguez MD Unavailable Unavailable Ileana Rodriguez MD Unavailable Unavailable Ileana Rodriguez MD Unavailable Unavailable Ileana Rodriguez MD Unavailable Unavailable Ileana Rodriguez MD Unavailable Unavailable Ileana Rodriguez MD Unavailable Unavailable Ileana Rodriguez MD Unavailable Unavailable Ileana Rodriguez MD Unavailable Unavailable Ileana Rodriguez MD Unavailable Unavailable Ileana Rodriguez MD Unavailable Unavailable Ileana Rodriguez MD Unavailable Unavailable Ileana Rodriguez MD Unavailable Unavailable Ileana Rodriguez MD Unavailable Unavailable Ileana Rodriguez MD Unavailable Unavailable Ileana Rodriguez MD Unavailable Unavailable Ileana Rodriguez MD Unavailable Unavailable Ileana Rodriguez MD Unavailable Unavailable Ileana Rodriguez MD Unavailable Unavailable Ileana Rodriguez MD Unavailable Unavailable Ileana Rodriguez MD Unavailable Unavailable Dee Encinas MD Unavailable Unavailable Dee Encinas MD Unavailable Unavailable Dee Encinas MD Unavailable Unavailable Dee Encinas MD Unavailable Unavailable Dee Encinas MD Unavailable Unavailable Dee Encinas MD Unavailable Unavailable Dee Encinas MD Unavailable Unavailable Dee Encinas MD Unavailable Unavailable Dee Encinas MD Unavailable Unavailable Dee Encinas MD Unavailable Unavailable Dee Encinas MD Unavailable Unavailable Dee Encinas MD Unavailable Unavailable Dee Encinas MD Unavailable Unavailable Dee Encinas MD Unavailable Unavailable Dee Encinas MD Unavailable Unavailable Dee Encinas MD Unavailable Unavailable Dee Encinas MD Unavailable Unavailable Dee Encinas MD Unavailable Unavailable Dee Encinas MD Unavailable Unavailable Dee Encinas MD Unavailable Unavailable Zeyad ANN Unavailable Unavailable Isabel GuidryC Unavailable Unavailable Chao, J Addy PA-C Unavailable Unavailable Chao, Isabel Daly PA-C Unavailable Unavailable Chao, Isabel Daly PA-C Unavailable Unavailable Chao, Isabel Daly PA-C Unavailable Unavailable Chao, Isabel Daly PA-C Unavailable Unavailable Chao, Isabel Daly PA-C Unavailable Unavailable Chao, Isabel Daly PA-C Unavailable Unavailable Chao, Isabel Daly PA-C Unavailable Unavailable Chao, Isabel Daly PA-C Unavailable Unavailable NON, PHYSICIAN STAFF Unavailable Unavailable SALEEM, DHRITI Unavailable Unavailable Re-disclosure Warning The records that [...] is protected by Article 27-F of the [facility] Public Health law. If you continue you may have access to information: Regarding HIV / AIDS; Provided by facilities licensed or operated by the [facility] Office of Mental Health; or Provided by the [facility] Office for People With Developmental Disabilities. If such information is present, then the following [facility] mandated warning applies: This information has [...] law may result in a fine or prison sentence or both. A general authorization for the release of medical or other information is NOT sufficient authorization for further disc losure. Allergies and Adverse Reactions Type Description Substance Reaction Status Data Source(s ) Propensity to adverse reactions MACROBID MACROBID [facility] Food allergy SEAFOOD SEAFOOD SWELLING [facility] Food allergy SHELLFISH SHELLFISH [facility] Drug allergy PRIMAQUINE PRIMAQUINE [facility] Drug allergy ASPIRIN ASPIRIN SWELLING [facility] Propensity to adverse reactions [facility]FISH [facility] Propensity to adverse reactions NO KNOWN ALLERGIES NO KNOWN ALLERGIES [facility] Propensity to adverse reactions PRIMAQUINE [facility] Propensity to adverse reactions NITROFURANTOIN NITROFURANTOIN [facility] Propensity to adverse reactions ASPIRIN Aspirin [facility] No Known Drug Allergies No Known Drug Allergies [facility] Drug Allergy Drug Allergy NKDA [facility] ([facility]) Encounters Encounter Providers Location Date Indications Data Source(s ) Outpatient Attender: Mike DUNCAN CPSCAORT-CPSCAEND 10/08/2021 03:43:00 PM EST - 10/08/2021 03:44:00 PM EST [facility] Patient discharged. Outpatient Attender: EFRAIN Gould/Jacob/Edvin/Hebert shafer 09/26/2021 08:00:00 AM EST [facility] ([facility], ) Outpatient Attender: Isabel CRAIG MD [id number] 09/13/2021 12:00:00 AM [facility] Outpatient Attender: Jyoti Lombardo MDConsultant: STAFF NON 08/13/2021 04:52:00 PM EDT - 08/13/2021 05:52:00 PM EDT [facility] Outpatient Attender: Jyoti Lombardo MDConsultant: STAFF NON 08/09/2021 10:38:00 AM EDT - 08/09/2021 11:35:00 AM EDT [facility] Outpatient Attender: Jyoti Lombardo MD Family Practice 0 08/08/2021 04:00:00 PM EDT [facility] ([facility]) Outpatient Attender: Jyoti Lombardo MDConsultant: STAFF NON 08/08/2021 03:43:00 PM EDT - 08/08/2021 03:43:00 PM EDT [facility] Outpatient Attender: Evelio Rodriguez MD CPSCAORT-CPSCAEND 08/02 02:38:00 PM EDT - 08/02/2021 02:39:00 PM EDT E22.1 [facility] E22.1 Patient discharged[address] [place] [id number] [facility] [facility] [address] 07/30/2021 12:00:00 AM EDT eCW1 ([facility]) Emergency Attender: EVELIO Juradoltant: STAFF NON 07/18/2021 04:01:00 AM EDT - 07/18/2021 07:51:00 AM EDT [facility] Patient discharged. [place] [id number] [facility] [facility] [address] 07/16/2021 12:00:00 AM EDT eCW1 ([facility]) Unknown [address] [facility] [facility] [address] 06/26/2021 12:00:00 AM EDT eCW1 ([facility]) Outpatient Attender: BORIS SALEEMAttender: Boris Saleem 06/20/2021 12:00:[address] [facility] Outpatient Attender: BENITO WILLETT MD Family Practice 06/18/2021 02:00:0 0 PM EDT [facility] ([facility]) Outpatient Attender: BENITO WILLETT MDConsultant: STAFF NON 06/18/2021 01:46:00 PM EDT - 06/18/2021 01:46:00 PM EDT [facility] Emergency Attender: EVELIO Juradoltant: STAFF NON 06/10/2021 11:30:00 AM EDT - 06/10/2021 01:57:00 PM EDT [facility] Patient discharged. Outpatient Attender: Isabel CRAIG MD [id number] 06/07/2021 12:00:[address] [facility] Outpatient Referrer: Isabel CRAIG MD 05/30/2021 12:00: 00 AM EDT Infertility male [facility] Infertility male Outpatient Admitter: Isabel CRAIG MDReferrer: Isabel CRAIG MD 05/30/2021 12:00:00 AM EDT [facility] SEMEN [facility]NALYSIS Outpatient Attender: Isabel CRAIG MD 05/24/2021 12:00:[address] [facility] Emergency Attender: EVELIO MERRILLMEMEConsultant: STAFF NON 05/06/2021 11:04:00 AM EDT - 05/06/2021 01:37:00 PM EDT [facility] Patient discharged. Emergency Attender: LLUVIA LANTIGUA MDConsultant: STAFF NON 05/05/2021 03:26:00 AM EDT - 05/05/2021 06:26:00 AM EDT [facility] Patient discharged. Outpatient Attender: Isabel CRAIG MD [id number] 04/19/20 12:00:00 AM EDT - 04/19/2021 12:58:31 PM EDT Male infertility, unspecified [facility] Male infertility, unspecified Inpatient Attender: MAURI Nunez er: RUPESH CR MDAttender: Maya Wilson MDAttender: EFRAIN BENZ MDAttender: ISACC DAVID MDAttender: Eveilo Fernandez MDAdmitter: RUPESH CR MDReferrer: Jesse James MDConsultant: MAGGY ALVARADO MD [id number] 03/21/2021 12:00:00 AM EDT - 04/01/2021 02:45:00 PM EDT Illness, unspecified [facility] Illness, unspecified Patient discharged. Outpatient Attender: Isabel CRAIG MD [id number] 2021 12:00:[address] [facility] Inpatient Attender: Len Ochoa tender: JON GABRIEL MDAdmitter: Len Banerjee PA-C [id number] 03/07/2021 12:00:00 AM EDT - 03/08/2021 12:03:00 PM EDT Major depressive disorder, single episode, unspecified [facility] Major depressive disorder, single episod e, unspecified Patient discharged. Outpatient Attender: BENITO WILLETT MDConsultant: STAFF NON 03/01/2021 10:45:00 AM EDT - 03/01/2021 03:10:[facility] Emergency Attender: Carter Small MDConsultant: STAFF NON 02/15/2021 11:50:00 AM EDT - 02/15/2021 02:49:00 PM EDT [facility] Patient discharged. Outpatient Attender: BENITO WILLETT MD Family Practice 02/12/2021 01:30:0 0 PM EDT [facility] ([facility]) Outpatient Attender: BENITO WILLETT MDConsultant: STAFF NON 02/12/2021 01:04:00 PM EDT - 02/12/2021 01:04:00 PM EDT [facility] Out[place] [id number] [facility] [facility] [address] 02/06/2021 12:00:00 AM EDT eCW1 ([facility]) Outpatient Attender: Jyoti Lombardo MD Family Practice 0 02/05/2021 03:00:00 PM EDT [facility] ([facility]) Outpatient Attender: Jyoti Lombardo MDConsultant: STAFF NON 02/05/2021 02:40:00 PM EDT - 02/05/2021 02:40:00 PM EDT [facility] Outpatient Attender: BENITO WILLETT MDConsultant: STAFF NON 01/23/2021 10:32:00 AM EDT - 01/23/2021 10:32:00 AM EDT [facility] [place] [address] [facility] [facility] [address] 01/23/2021 12:00:00 AM EDT eCW1 ([facility]) Emergency Attender: Carter Small MDConsultant: STAFF NON 01/18/2021 01:23:00 PM EST - 01/18/2021 03:35:00 PM EST [facility] Patient discharged. Outpatient Attender: BENITO WILLETT MDConsultant: STAFF NON 01/15/2021 12:37:00 PM EST - 01/15/2021 12:37:00 PM EST [facility] Outpatient Attender: BENITO WILLETT MD Family Practice 01/15/2021 12:00:0 0 PM EST [facility] ([facility]) Emergency Attender: NICOL BANG MDConsultant: BAKARI Boyle NON 01/13/2021 10:28:00 AM EST - 01/13/2021 04:04:00 PM [facility] Patient discharged. Outpatient Attender: BENITO WILLETT MDConsultant: STAFF NON 01/11/2021 11:00:00 AM EST - 01/11/2021 03:17:00 PM [facility] l Patient discharged. Outpatient Admitter: Iasbel CRAIG MDReferrer: Isabel CRAIG MD 01/07/2021 12:00:00 AM [facility] Outpatient Attender: BENITO WILLETT MDConsultant: STAFF NON 12/31/2020 06:56:10 AM EST - 01/01/2021 04:00:00 PM [facility] l Patient discharged. Emergency Attender: NICOL BANG MDConsultant: BAKARI Boyle NON 12/27/2020 10:55:00 AM EST - 12/27/2020 01:35:00 PM [facility] Patient discharged. Emergency Attender: Addy ANTOINECConsultant: STAFF NO N 12/20/2020 11:29:00 AM EST - 12/20/2020 03:03:00 PM [facility] Patient discharged. Emergency Attender: EVELIO LUNAConsultant: STAFF NON 12/19/2020 09:11:00 AM EST - 12/19/2020 01:41:00 PM [facility] Patient discharged. Outpatient Attender: DYLAN SHI MD [facility] 12/18 12:15:00 PM [facility] (Dylan Shi MD) Outpatient Attender: Carter Small MDAttender : Cari Sweet FNPConsultant: STAFF NON 12/01/2020 02:50:00 PM EST - 12/03/2020 12:25:00 PM [facility] Patient discharged. Outpatient Attender: Isabel CRAIG MD [id number] 11/22/2020 12:00:00 AM [facility] Emergency Attender: EVELIO Rothsultant: STAFF NON 11/19/2020 02:16:00 PM EST - 11/19/2020 03:51:00 PM EST [facility] Patient discharged[facility] [place] [address] [facility] [address] 11/15/2020 12:00:00 AM EST [facility] Outpatient Attender: BENITO WILLETT MDConsultant: STAFF NON 11/14/2020 01:25:00 PM EST - 11/14/2020 01:25:00 PM EST [facility] Attender: BENITO WILLETT MD [facility] 11/14/2020 12:00:0 0 PM EST [facility] ([facility]) Outpatient Attender: DYLAN SHI MD [facility] 11/07 01:15:00 PM EST [facility] (Dylan Shi MD) Outpatient [address] [facility] [address] 10/30/2020 12:00:00 AM EST eCW1 ([facility]) Out[place] [address] [facility] [address] 10/25/2020 12:00:00 AM EST eCW1 ([facility]) Emergency Attender: Addy ANTOINECConsultant: STAFF NO N 10/19/2020 10:32:00 AM EST - 10/19/2020 01:51:00 PM EST [facility] Patient discharged. Postop [place] [address] [facility] [address] 10/19/2020 12:00:00 AM EST eCW1 ([facility]) Unknown [address] [facility] [address] 10/19/2020 12:00:00 AM EST eCW1 ([facility]) Out[place] [address] [facility] [address] 10/18/2020 12:00:00 AM EST eCW1 ([facility]) Emergency Attender: EVELIO LUNAConsultant: STAFF NON 09/17/2020 08:46:00 AM EST - 09/17/2020 12:18:00 PM EST [facility] Patient discharged. Outpatient Attender: Jyoti Lombardo MDConsultant: STAFF NON 09/07/2020 02:36:00 PM EDT - 09/07/2020 02:36:00 PM EDT [facility] Emergency Attender: Dee Encinas MD 020 11:01:00 AM EDT - 08/05/2020 04:21:00 PM EDT Eval After Fall [facility] Eval After Fall Patient discharged. Medications Medication Brand Name Start Date Product Form Dose Route Admi nistrative Instructions Pharmacy Instructions Status Indications Reaction Description Data Source(s) POLYETHYLENE GLYCOL 3350 142 MG/ML Oral Solution [Miralax] M iralax 09/26/2021 12:00:00 AM EST active M [facility]ENT ([facility], ) magnesium citrate 58.2 MG/ML Oral Solution Magnesium Citrate 09/26/2021 12:00:00 AM EST active [facility] ([facility]) pantoprazole 40 MG Delayed Release Oral Tablet Pantoprazole Sodium 09/26/2021 12:00:00 AM EST ORAL active M [facility]ENT ([facility], ) cetirizine hydrochloride 10 MG Oral Tablet Cetirizine HCl 10 MG Cetirizine HCl 10 MG 07/30/2021 12:00:00 AM EDT 1.0 {tablet} activ e Cetirizine HCl 10 MG eCW1 ([facility]) Hydroxyzine Hydrochloride 25 MG Oral Tablet hydrOXYzin e HCl 25 MG hydrOXYzine HCl 25 MG 07/16/2021 12:00:00 AM EDT 1.0 {tablet_as_needed} active hydrOXYzine HCl 25 MG eCW1 ([facility]) pantoprazole 40 MG Delayed Release Oral Tablet Pantoprazole Sodium 40 MG Oral Tablet Delayed Release (PROTONIX) Pantoprazole Sodium 40 MG Oral Tablet De layed Release (PROTONIX) 06/05/2021 12:00:00 AM EDT acti ve [facility] Chorionic Gonadotropin 41926 UNT/ML Inje ctable Solution Chorionic Gonadotropin 93758 UNIT Intramuscular Solution Reconstituted Chorionic Gonadotropin 93468 UNIT Intramuscular Solution Reconstituted 05/15/2021 12:00:00 AM EDT 2000 U Intramuscular active Inject 2,00 0 Units into the muscle 3 (three) times a week Inject 2000 units on Thursday, Thursday and Thursday, Max Daily Dose: 2,[address] [facility] Clobetasol Propionate 0.5 MG/ML Topical Cream Clobetasol Propionate 0.05 % External Cream (TEMOVATE) Clobetasol Propionate 0.05 % External Cr eam (TEMOVATE) 04/01/2021 12:00:00 AM EDT active Apply to skin [facility] quetiapine 50 MG Oral Tablet QUEtiapine Fumarate 50 MG Oral Tablet (SEROquel) QUEtiapine Fumarate 50 MG Oral Tablet (SEROquel) 04/01/2021 12:00:00 AM EDT 50 mg Oral active Take [address] [facility] apixaban 2.5 MG Oral Tablet Apixaban 2.5 MG Oral Table t (ELIQUIS) Apixaban 2.5 MG Oral Tablet (ELIQUIS) 04/01/2021 12:00:00 AM EDT 2.5 mg Oral active Take 1 tablet by mouth Two Times Daily Indications: cl otting disorder [facility] omalizumab 150 MG Injection omalizumab (XOLAIR) inject ion 300 mg omalizumab (XOLAIR) injection 300 mg 03/29/2021 12:00:00 PM EDT 300 mg Subcuta neous active 300 mg, Subcutaneous , Every 28 days, First dose on Thu03/29/21 at 1200, For [address] [facility] Medication administered onsite quetiapine 25 MG Oral Tablet QUEtiapine (SEROquel) tab let 50 mg QUEtiapine (SEROquel) tablet 50 mg 03/26/2021 10:00:00 PM EDT 50 mg Oral active 50 mg, Oral, Nightly, First dose on Thu03/26/21 at 2200, For [address] [facility] Medication administered onsite Chorionic Gonadotropin 47743 UNT/ML Inje ctable Solution chorionic gonadotropin injection 2,000 Units chorionic gonadotropin injection 2,000 Units 11:00:00 AM EDT 2000 U Intramuscular active 2,000 Units, Intramuscular, Three times Weekly (Once per day on Thu), First dose on Thu03/25/21 at 1100, For [address] [facility] Medication administered onsite Escitalopram 10 MG Oral Tablet escitalopram (LEXAPRO) tablet 20 mg escitalopram (LEXAPRO) tablet 20 mg 03/23/2021 09:00:00 AM EDT 20 mg Oral active 20 mg, Oral, Daily Standard, First dose on 03/23/21 at 0900, For [address] [facility] Medication administered onsite cetirizine hydrochloride 10 MG Oral Tablet cetirizine (ZYRTEC) tablet 10 mg cetirizine (ZYRTEC) tablet 10 mg 03/23/2021 09:00:00 AM EDT 10 mg Oral active 10 mg, Oral, Daily Standard, First dose on 03/23/21 at 0900, For [address] [facility] Medication administered onsite POLYETHYLENE GLYCOL 3350 142 MG/ML Oral Solution polyethylene glycol (MIRALAX) packet 17 g polyethylene glycol (MIRALAX) packet 17 g 03/23/2021 0 9:00:00 AM EDT 17 g Oral active 17 g, Or al, Daily Standard, First dose on 03/23/21 at 0900, For 30 days
Mix in 8 ounces of water, juice or milk. Avoid use in patients who require thickened liquids due to potential increased risk for aspiration.
[facility] Medication administered onsite diphenhydrAMINE (BENADRYL) injection 50 mg [id number] 03/23/2021 06:45:00 AM EDT 50 mg Intramuscular completed 50 mg, Intramuscular, Once, On 03/23/21 at 0645, For [address] [facility] Medication administered onsite haloperidol lactate (HALDOL) injection 5 mg 13523-925-43 03/23/2021 06:45:00 AM EDT 5 mg Intramuscular completed 5 mg, Intramuscular, Once, On 03/23/21 at 0645, For [address] [facility] Medication administered onsite 1 ML Lorazepam 2 MG/ML Injection LORazepam (ATIVAN) in jection 2 mg LORazepam (ATIVAN) injection 2 mg 03/23/2021 06:45:00 AM EDT 2 mg Intramusc ular completed 2 mg, Intramuscular, Once, On Sa t 03/23/21 at 0645, For [address] [facility] Medication administered onsite apixaban 2.5 MG Oral Tablet apixaban (ELIQUIS) tablet 2.5 mg apixaban (ELIQUIS) tablet 2.5 mg 03/22/2021 09:00:00 PM EDT 2.5 mg Oral acti ve 2.5 mg, Oral, 2 Times Daily, Indications: clotting disorder, First dose on Thu03/22/21 at 2100, For [address] [facility] Medication administered onsite Clobetasol Propionate 0.5 MG/ML Topical Cream clobetasol (TEMOVATE) 0.05 % cream clobetasol (TEMOVATE) 0.05 % cream 03/22/2021 09:00:00 PM EDT Topical active Topical, 2 Times Miri ly, First dose on Thu03/22/21 at 2100, For 30 days
Apply to affected area
[facility] Medication administered onsite Ondansetron 4 MG Disintegrating Oral Tab let ondansetron (ZOFRAN-ODT) disintegrating tablet 4 mg ondansetron (ZOFRAN-ODT) disintegrating tablet 4 mg 03/22/2021 03:43:19 PM EDT 4 mg Oral active 4 mg, Oral, Every 6 hours PRN, Nausea, Starting on Thu03/22/21 at 1543, For 30 days
Dissolve on tongue.
[facility] Medication administered onsite Hydroxyzine Hydrochloride 50 MG Oral Tablet hydrOXYzin e (ATARAX) tablet 50 mg hydrOXYzine (ATARAX) tablet 50 mg 03/22/2021 03:43:04 PM EDT 50 mg Oral active 50 mg, Oral, Every 6 hours PRN, Anxiety, Sleep, Starting on Thu03/22/21 at 1543, For [address] [facility] Medication administered onsite acetaminophen (TYLENOL) tablet 650 mg 03/22/2021 03:42:40 PM EDT 650 mg Oral active [Order 1 Start ] Name: acetaminophen (TYLENOL) tablet 650 mg Signed Summary: 650 mg, Oral, Every 4 hours PRN, Mild Pain (Pain Scale Score 1-3), Headaches, Starting on Thu03/22/21 at 1542, For 30 days
MDD 4
[Order 1 End] [Order 2 Start] Name: acetaminophen (TYLENOL) tablet 650 mg Signed Summary: 650 mg, Oral, Every 4 hours PRN, Moderate Pain (Pain Scale Score 4- 6), Starting on Thu03/22/21 at 1542, For 30 days
MDD 4
[Order 2 End] [Order 3 Start] Name: acetaminophen (TYLENOL) tablet 650 mg Signed Summary: 650 mg, Oral, Every 4 hours PRN, Severe Pain (Pain Scale Score 7-10), Starting on Thu03/22/21 at 1542, For 30 days
MDD 4
[Order 3 End] [facility] Medication administered onsite Sodium Chloride 0.111 MEQ/ML Nasal Solut ion sodium chloride (OCEAN) 0.65 % nasal spray 2 spray sodium chloride (OCEAN) 0.65 % nasal spray 2 spray 03:39:25 PM EDT 2 {spray} Each Nare active 2 spray, Each Nare, PRN, Congestion, Other, Starting on Thu03/22/21 at 1539, For [address] [facility] Medication administered onsite Chorionic Gonadotropin 96627 UNT/ML Inje ctable Solution chorionic gonadotropin injection 2,000 Units chorionic gonadotropin injection 2,000 Units 07:15:00 AM EDT 2000 U Intramuscular completed 2,000 Units, Intramuscular, Once, On Thu03/22/21 at 0715, For [address] [facility] Medication administered onsite Escitalopram 10 MG Oral Tablet escitalopram (LEXAPRO) tablet 20 mg escitalopram (LEXAPRO) tablet 20 mg 03/22/2021 07:15:00 AM EDT 20 mg Oral completed 20 mg, Oral, Once, On Thu03/22/21 at 0715, For [address] [facility] Medication administered onsite apixaban 2.5 MG Oral Tablet apixaban (ELIQUIS) tablet 2.5 mg apixaban (ELIQUIS) tablet 2.5 mg 03/22/2021 07:15:00 AM EDT 2.5 mg Oral completed Venous Thrombosis 2.5 mg, Oral, Once, Indicati ons: Venous Thrombosis, On Thu03/22/21 at 0715, For [address] [facility] Venous Thrombosis Medication administered onsite Acetaminophen 325 MG Oral Tablet acetaminophen (TYLENO L) tablet 650 mg acetaminophen (TYLENOL) tablet 650 mg 03/22/2021 06:45:00 AM EDT 65 0 mg Oral completed 650 mg, Oral, O nce, On Thu03/22/21 at 0645, For 1 dose
Maximum daily dose of acetaminophen is 3,000 mg from all sources in [address]
[facility] Medication administered onsite Acetaminophen 325 MG Oral Tablet acetaminophen (TYLENO L) tablet 650 mg acetaminophen (TYLENOL) tablet 650 mg 03/22/2021 01:30:00 AM EDT 65 0 mg Oral completed 650 mg, Oral, O nce, On Thu03/22/21 at 0130, For 1 dose
Maximum daily dose of acetaminophen is 3,000 mg from all sources in [address]
[facility] Medication administered onsite morphine sulfate (PF) injection 4 mg [id number] 03/21/2021 11:45: 00 PM EDT 4 mg Intravenous completed 4 mg, In travenous, Once, On Thu03/21/21 at 2345, For [address] [facility] Medication administered onsite iohexol (OMNIPAQUE) 300 MG/ML contrast injection 100 mL [id number] 1003/21/2021 11:15:00 PM EDT 100 mL Given by IV completed 100 mL, Given by IV, 1 TIME IMAGING, On Danna 03/21/21 at 2315, For [address] [facility] Medication administered onsite Cholecalciferol 1000 UNT Oral Tablet vit hermosillo D3 (CHOLECALCIFEROL) tablet 1,000 Units vitamin D3 (CHOLECALCIFEROL) tablet 1,000 Units 2020 08:00:00 AM EDT 1000 U Oral active 1,000 Un its, Oral, Daily Standard, First dose on Thu03/08/21 at 0800, For 30 days
25 mcg vitamin D3 = 1,000 international units vitamin D3.
[facility] Medication administered onsite Phenazopyridine hydrochloride 200 MG Del ayed Release Oral Tablet Phenazopyridine HCl 200 MG Oral Tablet (PYRIDIUM) Phenazopyridine HCl 200 MG Oral Tablet (PYRIDIUM) 03/08/2021 12:00:00 AM EDT 200 mg Oral active Take 1 tablet by mouth Three times daily with meals for [address] [facility] Phenazopyridine hydrochloride 200 MG Del ayed Release Oral Tablet phenazopyridine (PYRIDIUM) tablet 200 mg phenazopyridine (PYRIDIUM) tablet 200 mg 03/07/2021 08:00:00 AM EDT 200 mg Oral active 200 mg, Oral, Three Times Daily- With Meals, First dose on Thu03/07/21 at 0800, For [address] [facility] Medication administered onsite Sulfamethoxazole 800 MG / Trimethoprim 1 60 MG Oral Tablet sulfamethoxazole- trimethoprim (BACTRIM DS) 800-160 MG per tablet 1 tablet sulfamethoxazole- trimethoprim (BACTRIM DS) 800-160 MG per tablet 1 tablet 03/07/2021 08:00:00 AM EDT 1 {tbl} Oral aborted 1 tablet , Oral, Every 12 hours Standard (2 times per day), First dose on [facility] 03/07/21 at 0800, For [address] [facility] Medication administered onsite Escitalopram 10 MG Oral Tablet escitalopram (LEXAPRO) tablet 20 mg escitalopram (LEXAPRO) tablet 20 mg 03/07/2021 08:00:00 AM EDT 20 mg Oral active 20 mg, Oral, Daily Standard, First dose on [facility] 03/07/21 at 0800, For [address] [facility] Medication administered onsite multivitamin tablet 1 tablet [id number] 03/07/2021 08:00:00 AM EDT 1 {tbl} Oral active 1 tablet, Oral , Daily Standard, First dose on [facility] 03/07/21 at 0800, For [address] [facility] Medication administered onsite apixaban 2.5 MG Oral Tablet apixaban (ELIQUIS) tablet 2.5 mg apixaban (ELIQUIS) tablet 2.5 mg 03/07/2021 08:00:00 AM EDT 2.5 mg Oral active Venous Thrombosis 2.5 mg, Oral, 2 Times Daily, Indications: Venous Thrombosis, First dose on Danna 03/07/21 at 0800, For [address] [facility] Venous Thrombosis Medication administered onsite Hydroxyzine Hydrochloride 50 MG Oral Tablet hydrOXYzin e (ATARAX) tablet 50 mg hydrOXYzine (ATARAX) tablet 50 mg 03/07/2021 01:59:51 AM EDT 50 mg Oral active 50 mg, Oral, Every 6 hours PRN, Anxiety, Sleep, Starting on Danna 03/07/21 at 0159, For [address] [facility] Medication administered onsite Melatonin 5 MG Oral Tablet melatonin tablet 5 mg melatonin t ablet 5 mg 03/07/2021 01:59:43 AM EDT 5 mg Oral active 5 mg, Oral, Nightly PRN, Sleep, Starting on [facility] 03/07/21 at 0159, For [address] [facility] Medication administered onsite Aluminum Hydroxide 40 MG/ML / Magnesium Hydroxide 40 MG/ML / Simethicone 4 MG/ML Oral Suspension aluminum & magnesium hydroxide-simethicone (MAALOX PLUS) 200-200-20 MG/5ML oral suspension 30 mL aluminum & magnesium hydroxide- simethicone (MAALOX PLUS) 200-200-20 MG/5ML oral suspension 30 mL 03/07/2021 01:59:34 AM EDT 30 mL Oral active 30 mL, Oral, Every 4 hours PRN, Heartburn, Indigestion, Starting on Danna 03/07/21 at 0159, For 30 days
MDD [address]
[facility] Medication administered onsite Ondansetron 4 MG Disintegrating Oral Tab let ondansetron (ZOFRAN-ODT) disintegrating tablet 4 mg ondansetron (ZOFRAN-ODT) disintegrating tablet 4 mg 03/07/2021 01:59:29 AM EDT 4 mg Oral active 4 mg, Oral, Every 6 hours PRN, Nausea, Starting on Danna 03/07/21 at 0159, For 30 days
Dissolve on tongue.
[facility] Medication administered onsite Magnesium Hydroxide 80 MG/ML Oral Suspen letha magnesium hydroxide (MILK OF MAGNESIA) 400 MG/5ML oral suspension 30 mL magnesium hydroxide (MILK OF MAGNESIA) 400 MG/5ML oral suspension 30 mL 03/07/2021 01:59:26 AM EDT 30 mL Oral active 30 mL, Oral, D aily PRN, Constipation, Starting on Danna 03/07/21 at 0159, For 30 days
If serum creatinine > 2 notify provider before administering.
[facility] Medication administered onsite Acetaminophen 325 MG Oral Tablet acetaminophen (TYLENO L) tablet 650 mg acetaminophen (TYLENOL) tablet 650 mg 03/07/2021 01:59:13 AM EDT 65 0 mg Oral active 650 mg, Oral, E very 4 hours PRN, Mild Pain (Pain Scale Score 1- 3), Headaches, Starting on Danna 03/07/21 at 0159, For 30 days
MDD [address]
[facility] Medication administered onsite Chorionic Gonadotropin 41693 UNT/ML Inje ctable Solution Chorionic Gonadotropin 20029 UNIT Intramuscular Solution Reconstituted Chorionic Gonadotropin 64353 UNIT Intramuscular Solution Reconstituted 02/27/2021 12:00:00 AM EDT 2000 U Intramuscular active Inject 2,00 0 Units into the muscle 3 (three) times a week Inject 2000 units on Thursday, Thursday and Thursday, Max Daily Dose: 2,[address] [facility] Syringe 22G X 1" 3 ML [id number] 02/27/2021 12:00:00 AM EDT active Use as directed. Use to inject chorionic gonadatropin [facility] 800 mg 01/18/2021 12:00:00 AM EST tablet 45 TAKE ONE TABLET BY MOUTH THREE TIMES A DAY WITH FOOD OR MILK TAKE ONE TABLET BY MOUTH THREE TIMES A D AY WITH FOOD OR MILK SOLD: 01/18/2021 [facility] 8 mg 01/18/2021 12:00:00 AM EST tablet,disintegrating [address] ONE TABLET UNDER THE TONGUE THREE TIMES A DAY PLACE ONE TABLET UNDER THE TONGUE THREE TIMES A DAY SOLD: 01/18/2021 [facility] 100 mg 01/14/2021 12:00:00 AM EST capsule 10 TAKE ONE CAPSULE BY MOUTH TWICE A DAY TAKE ONE CAPSULE BY MOUTH TWICE A DAY SOLD: 01/14/2021 [facility] 5-325 mg 01/14/2021 12:00:00 AM EST tablet 9 TAKE ONE TABLET BY MOUTH THREE TIMES A DAY MAXIMUM DAILY DOSE = 3 TAKE ONE TABLET BY MOUTH THREE TIMES A D AY MAXIMUM DAILY DOSE = 3 SOLD: 01/14/2021 [facility] 500 mg 01/11/2021 12:00:00 AM EST tablet 8 TAKE ONE TABLET BY MOUTH TWICE A DAY FOR 4 DAYS TAKE ONE TABLET BY MOUTH TWICE A DAY FOR 4 DAYS SOLD: 2020 [facility] 5-325 mg 01/11/2021 12:00:00 AM EST tablet 20 TAKE ONE TABLET BY MOUTH EVERY 4-6 HOURS NEEDED FOR POST OP PAIN MAXIMUM DAILY DOSE = 6 TAKE ONE TABLET BY MOUTH EVERY 4-6 HOURS NEEDED FOR POST OP PAIN MAXIMUM DAILY DOSE = 6 SOLD: 01/11/2021 [facility] injection subq/im 01/10/2021 12:00:00 AM EST completed [facility] (Dylan Shi MD) Medication administered onsite 0.8 ML Enoxaparin sodium 100 MG/ML Prefilled Syringe [Loveno x] Lovenox 12/25/2020 12:00:00 AM EST SUBCUTANEOUS active [facility] (Dylan Shi MD) Chorionic Gonadotropin 92332 UNT/ML Inje ctable Solution Chorionic Gonadotropin 62743 UNIT Intramuscular Solution Reconstituted Chorionic Gonadotropin 80154 UNIT Intramuscular Solution Reconstituted 11/28/2020 12:00:00 AM EST 2000 U Intramuscular active Inject 2,00 0 Units into the muscle 3 (three) times a week Inject 2000 units on Thursday, Thursday and Thursday, Max Daily Dose: 2,[address] [facility] Escitalopram 20 MG Oral Tablet Escitalopram Oxalate 20 MG Oral Tablet (LEXAPRO) Escitalopram Oxalate 20 MG Oral Tablet (LEXAPRO) 11/07/2020 12:00:00 AM EST 20 mg Oral active Take 20 mg by mouth [facility] apixaban 5 MG Oral Tablet Apixaban 5 MG Oral Tablet (E liquis) Apixaban 5 MG Oral Tablet (Eliquis) 11/07/2020 12:00:00 AM EST abort [facility] Trazodone Hydrochloride 50 MG Oral Table t traZODone HCl 50 MG Oral Tablet (DESYREL) traZODone HCl 50 MG Oral Tablet (DESYREL) 11/07/2020 12:00:0 0 AM EST 50 mg Oral aborted Take 50 mg by mo [facility] Divalproex Sodium 250 MG Delayed Release Oral Tablet Divalpr oex Sodium 11/07/2020 12:00:00 AM EST active [facility] (Dylan Shi MD) Lidocaine 40 MG/ML Topical Cream Lidocaine 11/07/2020 12:00:00 AM EST active [facility] (Dylan Shi MD) Escitalopram 20 MG Oral Tablet Escitalopram Oxalate 11/07/2020 1 2:00:00 AM EST active [facility] ( Dylan Sih MD) Methocarbamol 500 MG Oral Tablet Methocarbamol 11/07/2020 12:00:00 AM EST active [facility] (Dylan Shi MD) Trazodone Hydrochloride 50 MG Oral Tablet Trazodone HCL 11/07/2020 12:00:00 AM EST active [facility] (Maribel Shi MD) Acetaminophen 325 MG Oral Tablet Acetaminophen 11/07/2020 12:00:00 AM EST active [facility] (Dylan Shi MD) Injection For Skin Disease Every 3 Months 11/07/2020 12:00:00 AM EST active [facility] (Dylan Shi MD) apixaban 5 MG Oral Tablet [Eliquis] Eliquis 11/07/2020 12:00:00 AM EST active [facility] (Dylan Shi MD) HM LIDOCAINE PATCH EX 11/07/2020 12:00:[address] [facility] Risperidone 1 MG Oral Tablet Risperidone 11/07/2020 12:00:00 AM EST active [facility] (Dylan Shi MD) Ivermectin 3 MG Oral Tablet Ivermectin 11/07/2020 12:00:00 AM EST active [facility] (Dylan Shi MD) Xolair 150 MG/ML Xolair 150 MG/ML 10/19/2020 12:00:00 AM EST active Xolair 150 MG/ML eCW1 ([facility]) Xolair 150 MG/ML Xolair 150 MG/ML 10/19/2020 12:00:00 AM EST active Xolair 150 MG/ML eCW1 ([facility]) Xolair 150 MG/ML Xolair 150 MG/ML 10/19/2020 12:00:00 AM EST active Xolair 150 MG/ML eCW1 ([facility]) Acetaminophen 325 MG / Hydrocodone Migdalia trate 5 MG Oral Tablet HYDROcodone- Acetaminophen 5-325 MG Oral Tablet (LORTAB) HYDROcodone-Acetaminophen 5-325 MG Oral Tablet (LORTAB) 1 {tbl} Oral aborted Take 1 tablet by mouth every 6 (six) hours as needed for Pain [facility] Naproxen 500 MG Oral Tablet Naproxen 500 MG Oral Table t (NAPROSYN) Naproxen 500 MG Oral Tablet (NAPROSYN) 500 mg Oral aborted Take 500 mg by mouth Two times daily with meals [facility] Escitalopram 10 MG Oral Tablet Escitalopram Oxalate 10 MG Oral Tablet (LEXAPRO) Escitalopram Oxalate 10 MG Oral Tablet (LEXAPRO) aborted [address] [facility] Divalproex Sodium 250 MG Delayed Release Oral Tablet Divalproex Sodium 250 MG Oral Tablet Delayed Release (DEPAKOTE) Divalproex Sodium 250 MG Oral Tablet Delayed Release (DEPAKOTE) aborted [address] [facility] Ivermectin 10 MG/ML Topical Cream Ivermectin 1 % Exter nal Cream Ivermectin 1 % External Cream Apply externally aborted Apply topically [facility] Acetaminophen 500 MG Oral Tablet Acetaminophen 500 MG Oral Tablet (TYLENOL) Acetaminophen 500 MG Oral Tablet (TYLENOL) 500 mg Oral aborted Take 500 mg by mouth every 6 (six) hours as needed for Pain [facility] [facility] Providers Payer name Policy type / Coverage type Policy ID Covered alliance party ID Covered alliance party's relationship to puente Policy Puente Plan Information EAST ACTIVE DUTY [id number] SP [id number] U [id number] Self [id number] U [id number] Self [id number] U [id number] Self [id number] SELF PAY EAST [id number] SP [id number] SELF PAY EAST [id number] SP [id number] SELF PAY EAST [id number] SP [id number] HUMANA EAST REG O [id number] S [id number] EAST [id number] S [id number] [facility] HUMANA - O/P [id number] 18 [id number] [place] [id number] 18 [id number] [facility] HUMANA - PHYSICIAN [id number] 18 [id number] [facility] HU[facility] - CLINIC [id number] 18 [id number] EAST ACTIVE DUTY [id number] SP [id number] [place] [employer]MANA - O/P [id number] 18 [id number] Problems, Conditions, and Diagnoses Code Display Name Description Problem Type Effective Dates Data Source(s) M81500 Personal history of other venous thrombo sis and embolism Personal history of other venous thrombosis and embolism Diagnosis 08/13/2021 04:52:00 PM EDT [facility] 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.4 Klinefelter syndrome, unspecified KLINEFELTER SY NDROME, UNSPECIFIED Diagnosis 08/02/2021 02:38:00 PM EDT [facility] E22.1 Hyperprolactinemia HYPERPROLACTINEMIA Diagnosis 02:38:00 PM EDT [facility] Z8719 Personal history of other diseases of th e digestive system Personal history of other diseases of the digestive system Diagnosis 07/2021 04:01:00 AM [facility] I10 Essential (primary) hypertension Essential (primary) h ypertension Diagnosis 07/18/2021 04:01:00 AM [facility] K219 Gastro-esophageal reflux disease without esophagitis Gastro-esophageal reflux disease without esophagitis Diagnosis 07/18/2021 04:01:00 AM ED [facility] G8929 Other chronic pain Other chronic pain Diagnosis 07/2021 04:01:00 AM [facility] I880 Nonspecific mesenteric lymphadenitis Nonspecific mesenteric lymphadenitis Diagnosis 07/18/2021 04:01:00 AM [facility] R1012 Left upper quadrant pain Left upper quadrant pain Diag nosis 07/18/2021 04:01:00 AM [facility] 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 (current) use of anticoagulants Diagnosis 06/10/2021 11:30:00 AM [facility] R1013 Epigastric pain Epigastric pain Diagnosis 06/10/2021 11:3 0:00 AM [facility] Infertility male Infertility male Diagnosis 05/30/2021 12 :46:51 PM [facility] SEMEN ANALYSIS SEMEN ANALYSIS Diagnosis 05/30/2021 12:00: 00 AM [facility] R112 Nausea with vomiting, unspecified Nausea with vo miting, unspecified Diagnosis 05/06/2021 11:04:00 AM [facility] R1084 Generalized abdominal pain Generalized abdominal pain Diagnosis 05/06/2021 11:04:00 AM [facility] E860 Dehydration Dehydration Diagnosis 05/05/2021 03:26:00 AM [facility] E876 Hypokalemia Hypokalemia Diagnosis 05/05/2021 03:26:00 AM [facility] K529 Noninfective gastroenteritis and colitis , unspecified Noninfective gastroenteritis and colitis, unspecified Diagnosis 05/05/2021 03:26:00 AM [facility] R69 Illness, unspecified Illness, unspecified Diagnosis 03/21/2021 09:56:00 PM [facility] ca v tree ca v tree Diagnosis 03/21/2021 09:56:00 PM [facility] F32.9 Major depressive disorder, single episod e, unspecified Major depressive disorder, single episode, unspecified Diagnosis 03/07/2021 01:28:00 AM [facility] 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, 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, 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 03/07/2021 01:28:00 AM [facility] R8290 Unspecified abnormal findings in urine U nspecified abnormal findings in urine Diagnosis 03/01/2021 10:45:00 AM [facility] M545 Low back pain Low back pain Diagnosis 03/01/2021 10:45:00 AM [facility] N469 Male infertility, unspecified Male infertility, unspec ified Diagnosis 03/01/2021 10:45:00 AM [facility] R300 Dysuria Dysuria Diagnosis 03/01/2021 10:45:00 AM [facility] 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 Ot her inflammatory disorders of penis Diagnosis 03/01/2021 10:45:00 AM [facility] R42 Dizziness and giddiness Dizziness and giddiness Diagno sis 03/01/2021 10:45:00 AM [facility] R350 Frequency of micturition Frequency of micturition Diag nosis 03/01/2021 10:45:00 AM [facility] R1032 Left lower quadrant pain Left lower quadrant pain Diag nosis 03/01/2021 10:45:00 AM [facility] R319 Hematuria, unspecified Hematuria, unspecified Diagnosi s 03/01/2021 10:45:00 AM [facility] N130 Hydronephrosis with ureteropelvic juncti on obstruction Hydronephrosis with ureteropelvic junction obstruction Diagnosis 03/01/2021 10:45:00 AM [facility] [id number] care home (current) use of opiate analge sic care home (current) use of opiate analgesic Diagnosis 02/15/2021 11:50:00 AM [facility] N23 Unspecified renal colic Unspecified renal colic Diagno sis 02/15/2021 11:50:00 AM [facility] R102 Pelvic and perineal pain Pelvic and perineal pain Diag nosis 02/15/2021 11:50:00 AM EDT [facility] R310 Gross hematuria Gross hematuria Diagnosis 02/12/2021 01:0 4:00 PM EDT [facility] F3289 Other specified depressive episodes Other specif ied depressive episodes Diagnosis 02/05/2021 02:40:00 PM EDT [facility] H21575 Acute embolism and thrombosi s of unspecified deep veins of unspecified lower extremity Acute embolism and thrombosis of unspeci fied deep veins of unspecified lower extremity Diagnosis 02/05/2021 02:40:00 PM EDT [facility] Z960 Presence of urogenital implants Presence of urogenital implants Diagnosis 01/18/2021 01:23:00 PM [facility] S57616 Personal history of urinary calculi Personal his tory of urinary calculi Diagnosis 01/18/2021 01:23:00 PM [facility] F38751 Pain in left leg Pain in left leg Diagnosis 01/15/2021 12 :37:00 PM [facility] N5312 Painful ejaculation Painful ejaculation Diagnosis 0 01/15/2021 12:37:00 PM [facility] R109 Unspecified abdominal pain Unspecified abdominal pain Diagnosis 01/13/2021 10:28:00 AM [facility] N131 Hydronephrosis with ureteral stricture, not elsewhere classified Hydronephrosis with ureteral stricture, not elsewhere classified Diagnosis 01/11/2021 11:00:00 AM [facility] Q73990 Encounter for other preprocedural examin ation Encounter for other preprocedural examination Diagnosis 01/01/2021 03:00:[address] [facility] N132 Hydronephrosis with renal and ureteral c alculous obstruction Hydronephrosis with renal and ureteral calculous obstruction Diagnosis 021 11:29:00 AM [facility] I313 Pericardial effusion (noninflammatory) P ericardial effusion (noninflammatory) Diagnosis 12/19/2020 09:11:00 AM [facility] L089 Local infection of the skin and subcutan eous tissue, unspecified Local infection of the skin and subcutaneous tissue, unspecified Diagnosis 12/01/2020 02:50:00 PM [facility] Z6831 Body mass index [BMI] 31.0-31.9, adult B mj mass index [BMI] 31.0-31.9, adult Diagnosis 12/01/2020 02:50:00 PM [facility] E669 Obesity, unspecified Obesity, unspecified Diagnosis 12/01/2020 02:50:00 PM [facility] R55 Syncope and collapse Syncope and collapse Diagnosis 12/01/2020 02:50:00 PM [facility] 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, lumbar region Intervertebral disc disorders with radiculopathy, lumbar region Diagnosis 11/19/2020 02:16:00 PM [facility] R3121 Asymptomatic microscopic hematuria Asymptomatic microscopic hematuria Diagnosis 10/19/2020 10:32:00 AM [facility] Y9289 Other specified places as the place of o ccurrence of the external cause Other specified places as the place of occurrence of the external cause Diagnosis 09/17/2020 08:46:00 AM [facility] N524BPR Overexertion from strenuous movement or load, initial encounter Overexertion from strenuous movement or load, initial encounter Diagnosis 09/17/2020 08:46:00 AM [facility] E20413Q Strain of muscle, fascia and tendon of l ower back, initial encounter Strain of muscle, fascia and tendon of lower back, initial encounter Diagnosis 09/17/2020 08:46:00 AM [facility] G47.33 Obstructive sleep apnea syndrome Obstructive sle ep apnea syndrome Problem 08/08/2021 12:00:00 AM EDT [facility] ([facility]) L50.2 Urticaria due to cold and heat Urticaria due to cold a nd heat Problem 08/08/2021 12:00:00 AM EDT [facility] ([facility]) Z86.718 History of thromboembolism of vein History of th romboembolism of vein Problem 08/08/2021 12:00:00 AM EDT [facility] ([facility]) N46.9 Male infertility Male infertility Problem 02/05/2021 12 :00:00 AM EDT [facility] ([facility]) F32.89 Depressive disorder Depressive disorder Problem 0 02/05/2021 12:00:00 AM EDT [facility] I82.409 Embolism from thrombosis of vein of dist al lower extremity Embolism from thrombosis of vein of distal lower extremity Problem 02/06/20 12:00:00 AM EDT [facility] ([facility]) N13.0 Hydronephrosis with ureteropelvic juncti on obstruction Hydronephrosis with ureteropelvic junction obstruction Problem 02/05/2021 12:00:00 AM E DT [facility] ([facility]) R31.0 Tom hematuria Tom hematuria Problem 02/05/2021 12:0 0:00 AM EDT [facility] ([facility]) R10.9 Abdominal pain Abdominal pain Problem 01/23/2021 12:00: 00 AM EDT [facility] ([facility]) Surgeries/Procedures Procedure Description Date Indications Data Source(s) OFFICE OUTPATIENT NEW 45 MINUTES 09/26/2021 12:00:00 A Ileana FENG ([facility], ) OFFICE OUTPATIENT VISIT 15 MINUTES 08/08/2021 [facility] clinic visit for assessment and ma nagement of a patient Hospital Outpatient Clinic Visit 08/02/2021 12:00:00 AM [facility] THYROXINE FREE ASSAY OF FREE THYROXINE 08/02/2021 12:00:00 AM [facility] THYROID STIMULATING HORMONE TSH ASSAY THYROID STIM HORMONE 0 08/02/2021 12:00:00 AM [facility] COLLECTION VENOUS BLOOD VENIPUNCTURE ROUTINE VENIPUNCTURE 12:00:00 AM [facility] PROLACTIN ASSAY OF PROLACTIN 08/02/2021 12:00:00 AM [facility] GONADOTROPIN LUTEINIZING HORMONE ASSAY OF GONADOTROPIN (LH) 08/02/2021 12:00:00 AM [facility] GONADOTROPIN FOLLICLE STIMULATING HORMONE ASSAY OF GONADOTRO PIN (FSH) 08/02/2021 12:00:00 AM [facility] OFFICE OUTPATIENT VISIT 10 MINUTES 06/18/2021 12:00:00 AM EDT [facility] ([facility]) BLOOD COUNT HEMATOCRIT <td>HEMATOCRIT</td><td>Routi ne</td><td>05/30/2021 2:15 PM EDT</td><td> Infertility male</td><td> </td> 05/30/2021 02:15:00 PM EDT [facility] Infertility male PROSTATE SPECIFIC ANTIGEN TOTAL <td>PSA</td><td>Routin e</td><td>05/30/2021 2:15 PM EDT</td><td> Infertility male</td><td> </td> 05/30/2021 02:15:00 PM EDT [facility] Infertility male ANDROLOGY <td>ANDROLOGY</td><td>Routin e</td><td>05/30/2021 12:59 PM EDT</td><td> Infertility male</td><td> </td> 05/30/2021 12:59:00 PM EDT [facility] Infertility male RESPIRATORY PATHOGEN PANEL <td>RESPIRATORY PATHOGEN PANEL</td><td>Routine</td><td>03/22/2021 2:05 AM EDT</td><td></td><td> </td> 03/22/2021 02:05:[address] [facility] COVID-19 PCR <td>COVID-19 PCR</td><td>Rou orion</td><td>03/22/2021 2:05 AM EDT</td><td></td><td> </td> 03/22/2021 02:05:[address] [facility] RADEX SHOULDER COMPLETE MINIMUM 2 VIEWS <td>XR SHOULDE R MIN 2 VIEWS PORT-OR 74764</td><td>CODE</td><td>03/22/2021 12:07 AM EDT</td><td> Diagnosis unknown</td><td> </td> 03/22/2021 12:07:00 AM EDT Diagnosis unknown [facility] Diagnosis unknown CT LUMBAR SPINE W/O CONTRAST MATERIAL <td>CT LUMBAR SP INE WITHOUT CONTRAST 48434</td><td>STAT</td><td>03/21/2021 11:59 PM EDT</td><td></td><td> </td> 03/21/2021 11:59:51 PM [facility] CT THORACIC SPINE W/O CONTRAST MATERIAL <td>CT THORACI C SPINE WITHOUT CONTRAST 58838</td><td>CODE</td><td>03/21/2021 11:59 PM EDT</td><td></td><td> </td> 03/21/2021 11:59:51 PM [facility] CT THORAX W/CONTRAST MATERIAL <td>CT THORAX WITH CONTR AST 74925</td><td>CODE</td><td>03/21/2021 11:59 PM EDT</td><td></td><td> </td> 03/21/2021 11:59:04 PM [facility] CT ABDOEN & PELVIS W/CONTRAST MATERIAL <td>CT ABDOMEN PELVIS WITH CONTRAST 72070</td><td>CODE</td><td>03/21/2021 11:59 PM EDT</td><td></td><td> </td> 03/21/2021 11:59:04 PM [facility] CT CERVICAL SPINE W/O CONTRAST MATERIAL <td>CT CERVICA L SPINE WITHOUT CONTRAST 94654</td><td>CODE</td><td>03/21/2021 11:44 PM EDT</td><td></td><td> </td> 03/21/2021 11:44:00 PM [facility] CT HEAD/BRAIN W/O CONTRAST MATERIAL <td>CT HEAD WITHOU T CONTRAST 83477</td><td>CODE</td><td>03/21/2021 11:44 PM EDT</td><td></td><td> </td> 03/21/2021 11:44:00 PM [facility] EKG ED PHYSICIAN INTERPRETATION <td>EKG ED PHYSICIAN INTERPRETATION</td><td>Routine</td><td>03/21/2021 11:22 PM EDT</td><td></td><td> </td> 03/21/2021 11:22:55 PM [facility] EKG 12-LEAD - CMAXX REPORT <td>EKG 12-LEAD - CMAXX REPORT</td><td></td><td>03/21/2021 11:18 PM EDT</td><td></td><td></td> 03/21/2021 11:18:43 PM [facility] EKG 12-LEAD - CMAXX REPORT <td>EKG 12-LEAD - CMAXX REPORT</td><td></td><td>03/21/2021 11:18 PM EDT</td><td></td><td></td> 03/21/2021 11:18:43 PM [facility] EKG 12-LEAD <td>EKG 12-LEAD</td><td>STAT </td><td>03/21/2021 11:18 PM EDT</td><td></td><td> </td> 03/21/2021 11:18:43 PM [facility] EKG 12-LEAD - CMAXX REPORT <td>EKG 12-LEAD - CMAXX REPORT</td><td></td><td>03/21/2021 11:18 PM EDT</td><td></td><td></td> 03/21/2021 11:18:[address] [facility] XR CHEST FRONTAL ONLY 71588 <td>XR CHEST FRONTAL ONLY 40687</td><td>STAT</td><td>03/21/2021 10:36 PM EDT</td><td> Diagnosis unknown</td><td> </td> 03/21/2021 10:36:00 PM EDT Diagnosis unknown [facility] Diagnosis unknown TROPONIN QUANTITATIVE <td>POCT ISTAT TROPONIN</td> <td>Routine</td><td>03/21/2021 10:28 PM EDT</td><td></td><td> </td> 03/21/2021 10:28:00 PM [facility] BASIC METABOLIC PANEL CALCIUM IONIZED <td>POCT ISTAT CHEM8</td><td>Routine</td><td>03/21/2021 10:26 PM EDT</td><td></td><td> </td> 03/21/2021 10:26:00 PM [facility] BLOOD GASES ANY COMBINATION PH PCO2 PO2 CO2 HCO3 <td>P OCT ISTAT VBG/LAC</td><td>Routine</td><td>03/21/2021 10:23 PM EDT</td><td></td><td> </td> 03/21/2021 10:23:00 PM [facility] DRUGS OF ABUSE, URINE <td>DRUGS OF ABUSE, URINE</t d><td>CODE</td><td>03/21/2021 10:22 PM EDT</td><td></td><td> </td> 03/21/2021 10:22:00 PM [facility] THROMBOPLASTIN TIME PARTIAL PLASMA/WHOLE BLOOD <td>PAR TIAL THROMBOPLASTIN TIME (PTT)</td><td>CODE</td><td>03/21/2021 10:22 PM EDT</td><td></td><td> </td> 03/21/2021 10:22:00 PM [facility] ACETAMINOPHEN, RANDOM <td>ACETAMINOPHEN, RANDOM</t d><td>CODE</td><td>03/21/2021 10:22 PM EDT</td><td></td><td> </td> 03/21/2021 10:22:00 PM [facility] ETHYL ALCOHOL LEVEL <td>ETHYL ALCOHOL LEVEL</td> <td>CODE</td><td>03/21/2021 10:22 PM EDT</td><td></td><td> </td> 03/21/2021 10:22:00 PM [facility] URNLS DIP STICK/TABLET REAGENT AUTO MICROSCOPY <td>URI NALYSIS WITH MICROSCOPIC</td><td>CODE</td><td>03/21/2021 10:22 PM EDT</td><td></td><td> </td> 03/21/2021 10:22:00 PM [facility] PROTHROMBIN TIME <td>PROTIME INR</td><td>CODE </td><td>03/21/2021 10:22 PM EDT</td><td></td><td> </td> 03/21/2021 10:22:00 PM [facility] FIBRINOGEN ACTIVITY <td>FIBRINOGEN LEVEL</td><td >CODE</td><td>03/21/2021 10:22 PM EDT</td><td></td><td> </td> 03/21/2021 10:22:00 PM [facility] BLOOD COUNT COMPLETE AUTO&AUTO DIFRNTL WBC COUNT <td>C BC AND DIFFERENTIAL</td><td>CODE</td><td>03/21/2021 10:22 PM EDT</td><td></td><td> </td> 03/21/2021 10:22:00 PM [facility] BLOOD TYPING ABO <td>TYPE AND SCREEN</td><td> Routine</td><td>03/21/2021 10:22 PM EDT</td><td></td><td> </td> 03/21/2021 10:22:00 PM [facility] LIPASE <td>LIPASE LEVEL</td><td>COD E</td><td>03/21/2021 10:22 PM EDT</td><td></td><td> </td> 03/21/2021 10:22:00 PM [facility] SALICYLATE LEVEL <td>SALICYLATE LEVEL</td><td >CODE</td><td>03/21/2021 10:22 PM EDT</td><td></td><td> </td> 03/21/2021 10:22:00 PM [facility] HEPATIC FUNCTION PANEL <td>HEPATIC FUNCTION PANEL A</td><td>Routine</td><td>03/21/2021 10:22 PM EDT</td><td></td><td> </td> 03/21/2021 10:22:00 PM [facility] BASIC METABOLIC PANEL CALCIUM TOTAL <td>BASIC METABOLI C PANEL</td><td>CODE</td><td>03/21/2021 10:22 PM EDT</td><td></td><td> </td> 03/21/2021 10:22:00 PM [facility] URNLS DIP STICK/TABLET REAGENT AUTO MICROSCOPY <td>URI NALYSIS WITH MICROSCOPIC</td><td>Routine</td><td>03/07/2021 7:48 AM EDT</td><td></td><td> </td> 03/07/2021 07:48:00 AM [facility] 25 HYDROXY INCLUDES FRACTIONS IF PERFORMED <td>VITAMIN D 25 HYDROXY, TOTAL</td><td>Routine</td><td>03/07/2021 6:09 AM EDT</td><td></td><td> </td> 03/07/2021 06:09:00 AM [facility] HEMOGLOBIN GLYCOSYLATED A1C <td>HEMOGLOBIN A1C</td><td>Routine</td><td>03/07/2021 6:09 AM EDT</td><td></td><td> </td> 03/07/2021 06:09:00 AM [facility] LIPID PANEL <td>LIPID PANEL</td><td>Rout ine</td><td>03/07/2021 6:09 AM EDT</td><td></td><td> </td> 03/07/2021 06:09:00 AM [facility] OFFICE OUTPATIENT VISIT 10 MINUTES 02/12/2021 12:00:00 AM EDT [facility] ([facility]) OFFICE OUTPATIENT VISIT 15 MINUTES 02/05/2021 12:00:00 AM EDT [facility] ([facility]) OFFICE OUTPATIENT VISIT 25 MINUTES 01/23/2021 12:00:00 AM EDT [facility] ([facility]) OFFICE OUTPATIENT VISIT 10 MINUTES 01/15/2021 12:00:00 AM EST [facility] ([facility]) THERAPEUTIC PROPHYLACTIC/DX INJECTION SUBQ/IM 01/11/20 12:00:00 AM EST [facility] ([facility]) ANDROLOGY <td>ANDROLOGY</td><td>Routin e</td><td>01/07/2021 12:00 AM EST</td><td></td><td> </td> 01/07/2021 12:00:00 AM [facility] ECG ROUTINE ECG W/LEAST 12 LDS W/I&R 11/07/2020 12:00: 00 AM EST [facility] ([facility]) CV STRS TST XERS&/OR RX CONT ECG PHYS SI&R 11/07/2020 12:00:00 AM EST [facility] ([facility]) ECHO TTHRC R-T 2D W/WOM-MODE COMPL SPEC&COLR DOP 11/07 12:00:00 AM EST [facility] ([facility]) Brief Emotional/Behav Assessment W/ Scoring Doc Per Standard Inst 09/07/2020 12:00:00 AM EDT [facility] ([facility]) Admin Patient Focused Health Risk Assessment Instrument 09/07/2020 12:00:00 AM EDT [facility] ([facility]) Results ID Date Data Source [id number] 09/30/2021 10:45:00 AM EST [facility] ) Name Value Range Interpretation Code Description Data Marifer rce(s) Supporting Document(s) Helicobacter pylori Ag [Presence] in Stool Laboratory test resul t Normal (applies to non-numeric results) [facility] ([facility] dorys ) Performed at: RN - [facility] [place] [id number] Decating Machine Operator: Kelley Wilson MD, Phone: [phone] ID Date Data Source [id number] 09/19/2021 11:51:01 AM [facility] Name Value Range Interpretation Code Description Data Marifer rce(s) Supporting Document(s) Progress Note [facility] [id number] lbm [file] [id number] ID Date Data Source [id number] 09/17/2021 10:58:34 AM [facility] Name Value Range Interpretation Code Description Data Marifer rce(s) Supporting Document(s) Progress Note [facility] [id number] lbm [file] [id number] ID Date Data Source [id number] 08/14/2021 12:16:00 PM EDT [facility] [address] [place] [address] PHONE: [phone] FAX: [phone] Name .................. : TOSIN Rivera Acct Number.................. : [id number] ROOM. ................. : Number ................... : [id number] Stay type ............. : O/P Discharge Date......... ... : 08/13/21 Admit Date ......... : 08/13/21 Admit Phys .................... : KIA Date of ....... : 1990 Family Phys ................... : NON STAFF Phone .................. : [phone] Age ................................ : 31 Film# .................. .:[id number] Sex ................................. : M Unsigned transcriptions are preliminary reports and do not represent a medical or legal document DOPPLER UNILATERAL VENOUS [id number] COMPLETE:08/13/21 17:00 [id number] Reason for Exam: HX OF DVT ULTRASOUND LEFT LOWER EXTREMITY VENOUS INDICATION: Left leg cramping, rule out deep venous thrombosis. COMPARISON: None Duplex imaging with color flow Doppler and spectral analysis was used to study the deep venous system from common femoral vein through the calf. A combination of compressibility and flow augmentation was utilized to assess patency. FINDINGS: The examination shows no deep venous thrombosis. Patent common femoral, femoral, and popliteal veins. Spontaneous flow and/or compressibility is noted. IMPRESSION: No deep venous thrombosis. Electronically Reviewed and Signed By Len Gautam MD , 08/14/21 12:16, VINEET Transcribe Initials: GAYATHRI , Transcribe Date: 08/14/21 00:10, Dictation Date: Copy for: 710 MED REC Page 1 of 1 Name Value Range Interpretation Code Description Data Marifer rce(s) Supporting Document(s) ID Date Data Source [id number] 08/09/2021 10:47:00 AM EDT [facility] ([facility]) Name Value Range Interpretation Code Description Data Marifer rce(s) Supporting Document(s) Anticardiolipin Ab,IgG,Qn Laboratory test result 0-14 [facility] ([facility]) .~.~<DG1.3.1>Z86.718</DG1.3.1><DG1.3.1>Z86.718</DG1.3.1><DG1.3.1>Z86.718</DG1.3. 1><D Anticardiolipin Ab,IgM,Qn 16 MPLU/mL 0-12 Above high normal [facility] ([facility]) .~.~<DG1.3.1>Z86.718</DG1.3.1><DG1.3.1>Z86.718</DG1.3.1><DG1.3.1>Z86.718</DG1.3. 1><D ID Date Data Source [id number] 08/09/2021 10:47:00 AM EDT [facility] ([facility]) Name Value Range Interpretation Code Description Data Marifer rce(s) Supporting Document(s) Dilute ProthrombinTime(dPT) 42.4 sec 0.0-55.0 [facility] ([facility]) .~.~<DG1.3.1>Z86.718</DG1.3.1><DG1.3.1>Z86.718</DG1.3.1><DG1.3.1>Z86.718</DG1.3. 1><D Thrombin Time 19.0 sec 0.0-23.0 [facility] ([facility]) .~.~<DG1.3.1>Z86.718</DG1.3.1><DG1.3.1>Z86.718</DG1.3.1><DG1.3.1>Z86.718</DG1.3. 1><D dPT Confirm Ratio 1.31 Ratio 0.00-1.40 [facility] ([facility]) .~.~<DG1.3.1>Z86.718</DG1.3.1><DG1.3.1>Z86.718</DG1.3.1><DG1.3.1>Z86.718</DG1.3. 1><D PTT-LA 31.8 sec 0.0-51.9 [facility] ([facility]) .~.~<DG1.3.1>Z86.718</DG1.3.1><DG1.3.1>Z86.718</DG1.3.1><DG1.3.1>Z86.718</DG1.3. 1><D dRVVT 41.8 sec 0.0-47.0 [facility] ([facility]) .~.~<DG1.3.1>Z86.718</DG1.3.1><DG1.3.1>Z86.718</DG1.3.1><DG1.3.1>Z86.718</DG1.3. 1><D Lupus ReflexInterpretation Laboratory test result [facility] ([facility]) .~.~<DG1.3.1>Z86.718</DG1.3.1><DG1.3.1>Z86.718</DG1.3.1><DG1.3.1>Z86.718</DG1.3. 1><D ID Date Data Source [id number] 08/09/2021 10:47:00 AM EDT [facility] ([facility]) Name Value Range Interpretation Code Description Data Marifer rce(s) Supporting Document(s) Antithrombin Antigen 81 % 72-124 [facility] ([facility]) .~.~<DG1.3.1>Z86.718</DG1.3.1><DG1.3.1>Z86.718</DG1.3.1><DG1.3.1>Z86.718</DG1.3. 1><D Antithrombin Activity 114 % 75-135 [facility] ( [facility]) .~.~<DG1.3.1>Z86.718</DG1.3.1><DG1.3.1>Z86.718</DG1.3.1><DG1.3.1>Z86.718</DG1.3. 1><D ID Date Data Source [id number] 08/09/2021 10:47:00 AM EDT [facility] ([facility]) Name Value Range Interpretation Code Description Data Marifer rce(s) Supporting Document(s) Protein C Antigen 108 % 60-150 [facility] ([facility]) .~.~<DG1.3.1>Z86.718</DG1.3.1><DG1.3.1>Z86.718</DG1.3.1><DG1.3.1>Z86.718</DG1.3. 1><D Protein S, Total 82 % 60-150 [facility] ([facility]) .~.~<DG1.3.1>Z86.718</DG1.3.1><DG1.3.1>Z86.718</DG1.3.1><DG1.3.1>Z86.718</DG1.3. 1><D Protein S, Free 115 % 61-136 [facility] ([facility]) .~.~<DG1.3.1>Z86.718</DG1.3.1><DG1.3.1>Z86.718</DG1.3.1><DG1.3.1>Z86.718</DG1.3. 1><D ID Date Data Source [id number] 08/09/2021 10:47:00 AM EDT [facility] ([facility]) Name Value Range Interpretation Code Description Data Marifer rce(s) Supporting Document(s) Fibrin D-dimer [Presence] in Platelet poor plasma Laboratory test result 0.27-0.50 [facility] ([facility]) .~.~<DG1.3.1>Z86.718</DG1.3.1><DG1.3.1>Z86.718</DG1.3.1><DG1.3.1>Z86.718</DG1.3. 1><D ID Date Data Source [id number] 08/12/2021 07:06:00 AM EDT [facility] Name Value Range Interpretation Code Description Data Marifer rce(s) Supporting Document(s) aPTT.lupus sensitive W excess phospholip id actual/Normal (normalized LA confirm) 42.4 sec 0.0-55.0 [facility] Effective August Dilute Prothrombin Time (dPT) reference interval will be changing to: 0.0 - 47.6 sec. aPTT.lupus sensitive/aPTT.lupus sensitiv e W excess phospholipid (screen to confirm ratio) 1.31 Ratio 0.00-1.40 [facility] Effective September 02 021 dPT Confirm Ratio reference interval will be changing to: 0.00 - 1.34 ratio Thrombin time 19.0 sec 0.0-23.0 [facility] aPTT.lupus sensitive (LA screen) 31.8 sec 0.0-51.9 [facility] dRVVT (LA screen) 41.8 sec 0.0-47.0 [facility] Lupus anticoagulant two screening tests W Reflex [interpretation] C omment: [facility] No lupus anticoagulant was detected. ID Date Data Source [id number] 08/12/2021 07:06:00 AM EDT [facility] Name Value Range Interpretation Code Description Data Marifer rce(s) Supporting Document(s) Antithrombin actual/normal in Platelet poor plasma by Chromo genic method 114 % 75-135 [facility] Direct Xa inhibitor anticoagulants such as rivaroxaban, apixaban andedoxaban will lead to spuriously elevated antithrombin activitylevels possibly masking a deficiency. Antithrombin Ag actual/normal in Platelet poor plasma by Immunologic method 81 % 72-124 [facility] This test was developed and its performa nce characteristicsdetermined by [facility]. It has not been cleared or approvedby the Food and Drug Administration. ID Date Data Source [id number] 08/12/2021 07:06:00 AM EDT [facility] Name Value Range Interpretation Code Description Data Marifer rce(s) Supporting Document(s) Protein C Ag actual/normal in Platelet poor plasma by Immuno logic method 108 % 60-150 [facility] Protein S Ag actual/normal in Platelet poor plasma by Immuno logic method 82 % 60-150 [facility] This test was developed and its performa nce characteristicsdetermined by [employer]. It has not been cleared or approvedby the Food and Drug Administration. Protein S Free Ag actual/normal in Platelet poor plasm a by Immunologic method 115 % 61-136 [facility] Please no te reference interval change ID Date Data Source [id number] 08/11/2021 06:21:00 AM EDT [facility] Name Value Range Interpretation Code Description Data Marifer rce(s) Supporting Document(s) Cardiolipin IgG Ab [Units/volume] in Serum by Immunoassay <9 GPL U/mL 0-14 [facility] Negative: <15 Indeterminate: 15 - 20 Low-Med Positive: >20 - 80 High Positive: >80 Cardiolipin IgM Ab [Units/volume] in Serum by Immunoassay 16 MPL U/mL 0-12 H [facility] Negative: <13 Indeterminate: 13 - 20 Low-Med Positive: >20 - 80 High Positive: >80 ID Date Data Source [id number] 08/09/2021 11:44:00 AM EDT [facility] Name Value Range Interpretation Code Description Data Marifer rce(s) Supporting Document(s) Fibrin D-dimer FEU [Mass/volume] in Platelet poor plasma <0. 27 ug/mL 0.27 - 0.50 [facility] ID Date Data Source [id number] 08/08/2021 04:13:00 PM EDT [facility] Name Value Range Interpretation Code Description Data Marifer rce(s) Supporting Document(s) US Doppler Unilateral Venous Leg LT Laboratory test result [facility] ([facility]) ID Date Data Source [id number] 08/02/2021 07:23:00 PM EDT [facility] Name Value Range Interpretation Code Description Data Marifer rce(s) Supporting Document(s) Free T4 (Free Thyroxine) 0.76-1.46 Normal (applies to non -numeric results) [facility] ID Date Data Source [id number] 08/02/2021 07:24:00 PM EDT [facility] Name Value Range Interpretation Code Description Data Marifer rce(s) Supporting Document(s) Prolactin 2.5-17.4 Normal (applies to non-numeric resul ts) [facility] ID Date Data Source [id number] 08/02/2021 07:24:00 PM EDT [facility] Name Value Range Interpretation Code Description Data Marifer rce(s) Supporting Document(s) FSH 0.7-10.8 Above high normal [facility] ID Date Data Source [id number] 08/02/2021 07:24:00 PM EDT [facility] Name Value Range Interpretation Code Description Data Marifer rce(s) Supporting Document(s) LH 1.2-10.8 Above high normal [facility] ID Date Data Source [id number] 08/02/2021 07:24:00 PM EDT [facility] Name Value Range Interpretation Code Description Data Marifer rce(s) Supporting Document(s) Thyroid Stimulate Hormone TSH 0.358-3.740 No rmal (applies to non-numeric results) [facility] ID Date Data Source [id number] 07/18/2021 10:16:00 AM EDT [facility] [address] [place] [address] PHONE: [phone] FAX: [phone] Name .................. : TOSIN Rivera Acct Number.................. : [id number] ROOM. ................. : TR-05 MR Number ................... : [id number] Stay type ............. : E/R Discharge Date......... ... : 07/18/21 Admit Date ......... : 07/18/21 Admit Phys .................... : SAMANTHA WADE Date of ....... : 1990 Family Phys ................... : NON STAFF Phone .................. : [phone] Age ................................ : 31 Film# .................. .:[id number] Sex ................................. : M Unsigned transcriptions are preliminary reports and do not represent a medical or legal document CT ABD & PELV W/[place] ORAL W/[place] [id number] COMPLETE:07/18/21 06:49 MWB 67423 Reason(s): left flank pa in x 2 days, Hx of stones CT ABDOMEN AND PELVIS WITHOUT IV CONTRAST INDICATION: Left flank pain 2 days. History of kidney stones. COMPARISON: 05/05/2021 12/27/2020 IV CONTRAST: None One or more of the following dose reduction techniques were utilized in effectively lowering the radiation dose for this examination: Automated Exposure Control, Adjustment of the mA and/or kV according to patient size, or Iterative reconstruction. FINDINGS: LUNG BASES: No pulmonary nodules or masses. No pleural effusions. LIVER/BILIARY: Normal. SPLEEN: Normal. PANCREAS: Normal. ADRENALS: Normal bilaterally. RIGHT KIDNEY: No hydronephrosis, stones or masses. LEFT KIDNEY: No hydronephrosis, stones or masses. No stones seen in the ureter. OTHER : No abnormalities seen in the urinary bladder. Prostate and seminal vesicles are unremarkable. BOWEL/GI: Scattered diverticula sigmoid colon. No dilated bowel or obstruction. No Page 1 of 2 [facility] [address] [place] [address] PHONE: [phone] FAX: [phone] Name .................. : TOSIN Rivera Acct Number.................. : [id number] ROOM. ................. : TR-05 Number ................... : [id number] Stay type ............. : E/R Discharge Date......... ... : 07/18/21 Admit Date ......... : 07/18/21 Admit Phys .................... : SAMANTHA OLVERA Date of ....... : 1990 Family Phys ................... : NON STAFF Phone .................. : [phone] Age ................................ : 31 Film# .................. .:[id number] Sex ................................. : M Unsigned transcriptions are preliminary reports and do not represent a medical or legal document CT ABD & PELV W/[place] ORAL W/[place] [id number] COMPLETE:07/18/21 06:49 MWB 08981 Reason(s): left flank pain x 2 days, Hx of stones bowel wall thickening. Appendix is visualized and is unremarkable. No hernia. There are some mildly prominent mesenteric lymph nodes in the right lower quadrant measuring up to 10 mm short axis. PERITONEUM: No free fluid, focal fluid collection or free air. NODES/RETROPERITONEUM: No adenopathy. No AAA. SKELETAL: Within normal limits. IMPRESSION: 1. No kidney stones or hydronephrosis. 2. Diverticulosis. No diverticulitis. 3. Mildly prominent mesenteric lymph nodes. This can be seen with mesenteric adenitis. Similar findings were seen on the prior studies. Preliminary report for this exam was provided by [facility]. Electronically Reviewed and Signed By Len Gautam MD , 07/18/21 10:16, VINEET Transcribe Initials: SANTO, Transcribe Date: 07/18/21 09:48, Dictation Date: Copy for: 710 MED REC DISCHARGED Page 2 of 2 Name Value Range Interpretation Code Description Data Marifer rce(s) Supporting Document(s) ID Date Data Source [id number] 07/18/2021 04:01:00 AM EDT [facility] 1 OrderSheet [facility] Emergency Department [address] [place] [address] Phone #: ext- [phone] 07/18/2021 04:01 Patient: MARVIN LEAHY Sex: M : 1990 Age: 31yWEIGHT:95.2 kg (S) HEIGHT:68 inches (S) BMI:31.9ALLERGIES: None, SeafoodCHIEF COMPLAINT: abdominal painDIAGNOSIS: Mesenteric lymphadenitis, Abdominal painLAB ORDERSOrder Description Priority Entered Acknowledged InitialedCBC w Diff STAT 04:38 07/18/2021 04:58 Samantha Celaya Riccardo Stephanie R.N. M.D.;CMP STAT 04:38 07/18/2021 04:58 Belia, Turrin, Evelio Elizabeth R.N. M.D.;Lipase STAT 04:38 07/18/2021 04:58 Belia, Turrin, Evelio Elizabeth R.N. M.D.;UA Reflex to UA 04:38 07/18/2021 05:38 Piter,Culture Evelio Luna M.D.;Lactic Acid STAT 04:38 07/18/2021 04:58 Belia, Turrin, Evelio Elizabeth R.N. M.D.;DIAGNOSTIC STUDY ORDERSOrder Description Priority Entered Acknowledged InitialedCT ABD PEL W/O STAT 04:38 07/2021 04:58 Belia,Oral W/O IV Turrin, Evelio Elizabeth R.N.Contrast M.D.;(Oxygen?(No))(IV?(Yes)) Reason for Study: left flank pain x 2 days, Hx of stonesMEDICATION/IV/DRIP/FLUID ORDERSOrder Description Priority Entered Acknowledged InitialedNS IV : Bolus 500 04:39 07/18/2021 05:40 Belia,mL, then 150 mL/hr Turrin, Evelio Elizabeth R.N. M.D.;Phenergan IV 25mg 04:39 07/18/2021 05:41 Belia, 2 OrderSheet [facility] Emergency Department [address] [place] [address] Phone #: ext- [phone] 07/18/2021 04:01 Patient: MARVIN LEAHY Sex: M : 1990 Age: 31yin 50mL NS, give Turrin, Evelio Elizabeth R.N.wide open: 25 mg M.D.;(NOW x1, HIGHALERTMEDICATION)Protonix IV Push 40 04:39 07/18/2021 05:41 Belia,mg (in 10 mL NS, Evelio Luna R.N.administer over at M.D.;least 2 minutes,NOW x1)GENERAL ORDERSOrder Description Priority Entered Acknowledged InitialedNPO 04:38 07/18/2021 04:58 Samantha Celaya Riccardo Stephanie R.N. M.D.;Saline Lock 04:38 07/18/2021 04:58 BeliaSamantha Riccardo Stephanie R.N. M.D.;[Electronically signed by Evelio Luna M.D. (06:56 07/18/2021)][Electronically signed by Consuelo Dumas (07:51 07/18/2021)][Electronically locked by Consuelo Dumas (07:51 07/18/2021)] Name Value Range Interpretation Code Description Data Marifer rce(s) Supporting Document(s) ID Date Data Source [id number] 07/18/2021 04:01:00 AM EDT [facility] 1 Medication Reconciliation Report [facility] Emergency Department [address] [place] [address] Phone #: ext- [phone] 07/18/2021 04:01 Patient: MARVIN LEAHY Sex: M : 1990 Age: 31yWeight: 95.2 kgHeight/Length: 68 in.BMI: 31.9ALLERGIES: None, SeafoodThe patient's Home Medications are listed below:CONTINUE TAKING THE FOLLOWING MEDICATIONS: allergy medicine daily Eliquis Oral (2.5 mg), 2x a day Escitalopram Oxalate Oral (10 mg), 2x a day Ivermectin Oral (3 mg) 3 tabs, every 6 months Pregnyl Intramuscular (75416 unit), 3x a week traZODone HCl Oral (50 mg), daily Xolair Subcutaneous (150 mg) 300mg, 3x a weekThe source(s) of the original Home Medication information:Not obtained.The following Medications were given to the patient in the Emergency Department:NS [IV] IV Fluids bolus 0, administered: 05:40 1Phenergan [IVPB] IVPB bolus 0, then 25 mg, administered: 05:1PROTONIX [IVP] IVP 40 mg, administered: 05:07/18/2021The following Medications were prescribed to the patient:None. Name Value Range Interpretation Code Description Data Marifer rce(s) Supporting Document(s) ID Date Data Source [id number] 07/18/2021 04:01:00 AM EDT [facility] 1 Medication Administration Record [facility] Emergency Department [address] [place] [address] Phone #: ext- [phone] 07/18/2021 04:01 Patient: MARVIN LEAHY Sex: M : 1990 Age: 31yWeight: 95.2 kgHeight/Length: 68 inBMI: 31.9ALLERGIES: None, Seafood Date/Time Medication Administered Medication OrderedStart NS [IV] NS IV : Bolus 500 mL, then 79115:40 07/18/2021 Dose: IV Fluids mL/hrElizabeth Celaya, R.N. Dispensed: 1000 mL bag---- Site: #1 right innlqpvQxhj18:50 1BConsuelo montesinos Start PHENERGAN [IVPB] Phenergan IV 25mg in 50mL NS,05:41 07/18/2021 Dose: 25 mg IVPB give wide open: 25 mg (NOW Belia arias Stephanie, R.N. Dispensed: 50 mL bag HIGH ALERT MEDICATION)---- Site: #1 right rzafybpTrjq02:41 1LoftusElizabeth R.N.Given PROTONIX [IVP] (PANTOPRAZOLE Protonix IV Push 40 mg (in 10 mL05:41 07/18/2021 SODIUM) NS, administer over at least 2LoftusElizabeth R.N. Dose: 40 mg IVP minutes, NOW x1) Site: #1 right forearm Name Value Range Interpretation Code Description Data Marifer rce(s) Supporting Document(s) ID Date Data Source [id number] 07/18/2021 04:01:00 AM EDT [facility] 1 General Instructions [facility] Emergency Department [address] [place] [address] Phone #: ext- [phone] 07/18/2021 04:01 Patient: MARVIN LEAHY Sex: M : 1990 Age: 31yChronic left upper quadrant and periumbilical abdominal pain of undetermined cause, now resolved.Acute mesenteric lymphadenitisINSTRUCTIONSDrink plenty of fluids. Avoid alcohol and NSAIDS. NSAIDS include aspirin, ibuprofen (Advil) and naproxen(Aleve). Avoid fatty, frie d/greasy, lactose-containing (such as milk, cheese and ice cream), salty and spicyfoods. No alcohol. Do not smoke.(PLEASE FOLLOW UP WITH YOUR FAMILY MD ON POST THIS WEEK FOR GI REFERRAL FORYOUR CHRONIC ABDOMINAL PAIN).Warnings: Further evaluation is necessary in order to conduct further tests (GI REFERRAL). It is veryimportant to follow up with a healthcare provider.GENERAL WARNINGS: Return or contact your physician immediately if your condition worsens orchanges unexpectedly, if not improving as expected, or if other problems arise. SPECIFICALLY, return ifyou develop pain in the abdomen, pelvis, testicle, back or shoulder, fever, vomiting, the inability to keepfluids down, blood in vomitus, blood in diarrhea, fainting or lightheadedness.Your Current Medications: Your current home medications have been reviewed.CONTINUE TAKING THE FOLLOWING MEDICATIONS:allergy medicine daily*.Eliquis Oral : Tablet 2.5 mg, 2x a day.Escitalopram Oxalate Oral : Tablet 10 mg, 2x a day.Ivermectin Oral : Tablet 3 mg, 3 tabs every 6 months.Pregnyl Intramuscular : Solution Reconstituted 41499 unit, 3x a week.traZODone HCl Oral : Tablet 50 mg, daily.Xolair Subcutaneous : Solution Reconstituted 150 mg, 300mg 3x a week.F ollow-up:Return to the emergency department as needed. Follow up with your healthcare provider in two dayseven if well. Call for an appointment. Reason for referral: evaluation, treatment and GI REFERRAL.Summary of care provided to patient via paper. Follow up with a wagon winder in five days even ifwell. Call for an appointment. Reason for referral: evaluation and treatment. Summary of care provided topatient via paper.Understanding of the discharge instructions verbalized by patient. Expected course of illness, dischargeinstructions, activity level, diet, follow-up appointment and risks and benefits of treatment reviewed withpatient and understanding verbalized. Agrees to plan of care. 2 General Instructions [facility] Emergency Department [address] [place] [address] Phone #: ext- [phone] 07/18/2021 04:01 Patient: MARVIN LEAHY Sex: M : 1990 Age: 31y ADDITIONAL INFORMATIONUnknown Causes of Abdominal Pain (Male)Based on your visit today, the exact cause of your abdominal pain is not clear. Your exam and testsdon't suggest a dangerous cause at this time. However, the signs of a serious problem may takemore time to appear. Although your evaluation was reassuring today, sometimes early in the courseof many conditions, exam and lab tests can appear normal. Therefore, it is important for you to watchfor any new symptoms or worsening of your condition.It may not be obvious what caused your symptoms. Pay attention to things that do seem to makeyour symptoms worse or better and discuss this with your doctor when you follow up.The evaluation of abdominal pain in the emergency department may only require an exam by thedoctor or it may include blood, urine or imaging studies, depending on many factors. Sometimesexams and tests can identify a cause but in many cases, a clear cause is not found. Further testing atfollow up visits may help to suggest a clear diagnosis.Home care Rest as much as you can until your next exam. Try to avoid any medicines (unless otherwise directed by your doctor), foods, a ctivities, or other factors that may have contributed to your symptoms. Try to eat foods that you know that you have tolerated well in the past. Certain diets may be recommended for some conditions that cause abdominal pain. However, since the cause of your symptoms may not be clear, discuss your diet more with your healthcare provider or specialist for further recommendations. If you have diarrhea, it may help to avoid dairy (lactose) for the time being. A low fat, low fiber diet can also help. Eating several small meals per day as opposed to 2 or 3 larger meals may help. Avoid dehydration. Make sure to drink plenty of water. Other options include broth, soup, gelatin, sports drinks, or other clear liquids. Watch closely for anything that may make your symptoms worse or better. Pay close attention to symptoms below that may mean your condition is getting worse.Follow-up careFollow up with your healthcare provider if your symptoms are not improving, or as advised. In some 3 General Instructions [facility] Emergency Department [address] [place] [address] Phone #: ext- [phone] 07/18/2021 04:01 Patient: MARVIN LEAHY Sex: M : 1990 Age: 31ycases, you may need more testing.When to seek medical adviceCall your healthcare provider right away if any of these occur: Pain is becoming worse You are unable to take your medicines or can't keep water down due to excessive vomiting Swelling of the abdomen Fever of 100.4F (38C) or higher, or as directed by your healthcare provider Blood in vomit or bowel movements (dark red or black color) Jaundice (yellow color of eyes and skin) New onset of weakness, dizziness or fainting New onset of chest, arm, back, neck or jaw pain 8837-8470 [employer]. [address] [place] [address]. All rights reserved. This information is not intended as asubstitute for professional m edical care. Always follow your healthcare professional's instructions.Mesenteric AdenitisThe mesentery is a sheet of tissue that attaches the intestines to the belly (abdominal) wall. Lymphnodes are small glands throughout the body. They are part of the system that fights infection.Mesenteric adenitis is swelling of the lymph nodes in the mesentery. It is also called mesentericlymphadenitis. The problem is caused by an infection, or an inflammatory condition, often of theintestines.Mesenteric adenitis can cause these symptoms: Severe pain in the abdomen, which can be all over Pain can be in the lower right side, sometimes mimicking appendicitis Nausea and vomiting Diarrhea Fever Loss of appetite 4 General Instructions [facility] Emergency Department [address] [place] [address] Phone #: ext- [phone] 07/18/2021 04:01 Patient: MARVIN LEAHY Sex: M : 1990 Age: 31y MalaiseThis condition can be hard to diagnose because the pain is often not just in one spot. You may needtests for this reason. Sometimes, the pain shifts to the lower right part of your abdomen. When thishappens, it may seem like appendicitis. This is another reason for testing.The problem most often goes away in a few days. If you have a bacterial infection, you may need totake antibiotics. Medicines may also be given to help relieve pain until the problem calms down.Home care Your healthcare provider may prescribe medicines for pain, nausea, or infection. Follow the healthcare provider's instructions when using these medicines. If you are given medicine for infection, take all of it as directed until it is gone, even if you feel better. Rest until you feel better. To help relieve abdominal pain, soak a towel in warm water and place it on your belly. If you have had diarrhea or vomiting, follow the guidelines you are given for what to eat and drink and what to avoid. Drink plenty of fluids. Don't smoke or drink alcohol.Follow-up careFollow up with your healthcare provider, or as advised. It is often very hard to tell mesenteric adenitisapart from appendicitis. So close follow-up is needed.If X-rays were done, a radiologist will look at them. You will be told if there are changes.Call [phone] if any of these occur: Trouble breathing Confusion Very drowsy or trouble awakening Fainting or loss of consciousness Rapid heart rate Chest pain 5 General Instructions [facility] Emergency Department [address] [place] [address] Phone #: ext- [phone] 07/18/2021 04:01 Patient: MARVIN LEAHY Sex: M : 1990 Age: 31yWhen to seek medical adviceCall your healthcare provider right away if any of these occur: Fever of 100.4F (38C) or higher, or as directed by your healthcare provider Pain not relieved with medicine, or pain that goes away and returns Pain that is getting worse over time or changing in location Pain that localizes to the right lower abdomen, and not improving or is worsening Severe diarrhea or vomiting Severe headache Few or no stools or gas Little or no urine Leg or foot cramps Small dark red dots on the skin Swelling in the abdomen Bloody stools [id number] [employer]. [address] [place] [address], [place] [address]. All rights reserved. This information is not intended as asubstitute for professional medical care. Always follow your healthcare professional's instructions. You have been given the following additional information: Unknown Causes of Abdominal Pain (Male) Adenitis, Mesenteric(Electronically signed by Evelio Luna M.D. 07/18/2021 06:56) Name Value Range Interpretation Code Description Data Marifer rce(s) Supporting Document(s) ID Date Data Source [id number] 07/18/2021 04:01:00 AM EDT [facility] 1 Clinical Report - Nurses [facility] Emergency Department [address] [place] [address] Phone #: ext- [phone] 07/18/2021 04:01 Patient: MARVIN LEAHY Sex: M : 1990 Age: 31yTRIAGEArrived by private vehicle. Historian: patient. ( pt reports having abd pain in middle of stomach thatradiated to left back are pt reports hx of abd pain, reports blood in stool ,per pt was on an antibiotic acouple weeks ago for bacteria in stool).Acuity: LEVEL 3.Chief Complaint: ABDOMINAL PAIN.Onset. (2 weeks).Treatment PROGRAM SUPPORT SPECIALIST:None. --04:15 07/18/21 Elizabeth Celaya R.N.04:10 07/18/21. BP: 131/107. MAP: 115. HR: 71. RR: 16. O2 saturation: 100%. Temp: 98.8 F. Pain levelnow: 03/18. --04:15 07/18/21 Elizabeth Celyaa R.N.Weight: 95.2 kg stated. Height/Length: 68 inches Per Patient. BMI: 31.9. --04:07/18/21 Elizabeth Celaya R.N.Medicationsallergy medicine daily. Eliquis Oral (Tablet 2.5 mg), 2x a day. Escitalopram Oxalate Oral (Tablet 10 mg), 2x a day. Ivermectin Oral (Tablet 3 mg) 3 tabs, every 6 months. Pregnyl Intramuscular (Solution Reconstituted 14313 unit), 3x a week. traZODone HCl Oral (Tablet 50 mg), daily. Xolair Subcutaneous (Solution Reconstituted 150 mg) 300mg, 3x a week. --04:11 07/18/21 Elizabeth Celaya R.N.AllergiesNone.Seafood. --04:11 07/18/21 Elizabeth Celaya R.N.PROBLEMS:Gastroenteritis.G6Pd Deficiency.Gastroesophageal Reflux Disease.Hypertension.Hematuria.Flank Pain. 2 Clinical Report - Nurses [facility] Emergency Department [address] [place] [address] Phone #: ext- [phone] 07/18/2021 04:01 Patient: MARVIN LEAHY Sex: M : 1990 Age: 31yDVT - Deep Venous Thrombosis.Dehydration.Diarrhea.Hypokalemia.Testosterone deficiency.Syncope.Ureterolithiasis.Vomiting.Urinary Calculi.Sleep Apnea: (New diagnosis, Seen Thursday in [place] for CPAP treatment).Lumbar Strain.Insomnia.Nephrolithiasis.Skin Problems.Renal Colic. --04:12 07/18/21 Elizabeth Celaya R.N.Abdominal Pain: Chronic. --05:01 07/18/21 Evelio Luna M.D.The following entry was modified by Evelio Luna M.D., 05:01 07/18/21Abdominal Pain. --04:12 07/18/21 Elizabeth Celaya R.N..ADDITIONAL SURGERIES:Ureteral Stent.Uroscopy. --04:12 07/18/21 Elizabeth Celaya R.N.HistorySOCIAL HX: Never smoker. Alcohol use; consumes beer occasionally. No drug use. No recent travel.No known contact with a sick individual. He was offered HIV testing but declined and hepatitis C testingbut declined. He has not traveled outside the [place]Infectious disease exposure: No infectious disease exposure. The patient was not exposed to Coronavirus.SELF HARM ASSESSMENT: Self harm assessment was performed. The patient answered "no" to thequestion(s) "Have you recently felt down, depressed, or hopeless?" and "Do you have thoughts of harmingor killing yourself?".ABUSE ASSESSMENT: No report of abuse.NUTRITIONAL RISK ASSESSMENT: The nutritional risk assessment revealed no deficiencies.FUNCTIONAL ASSESSMENT: Functional assessment: no impairments noted.LEARNING NEEDS ASSESSMENT: The learning needs assessment revealed no barriers.FALL RISK ASSESSMENT: Fall risk assessment completed. No risk factors identified. --04:15 07/18/21Elizabeth Celaya R.N. 3 Clinical Report - Nurses [facility] Emergency Department [address] [place] [address] Phone #: ext- [phone] 07/18/2021 04:01 Patient: MARVIN LEAHY Sex: M : 1990 Age: 31yPHYSICAL ASSESSMENTAmbulatory to room.GENERAL / NEURO / PSYC H: Alert. Oriented X 4. Appears in no acute distress.HEENT: Mucous membranes are pink.RESPIRATORY: Respirations not labored. Breath sounds within normal limits.CVS: Normal sinus rhythm noted. Capillary refill less than 2 seconds.GI / : Bowel sounds within normal limits.SKIN: Skin is warm and dry. --04:15 07/18/21 Elizabeth Celaya R.N.NURSING PROGRESS NOTESThe plan of care for this patient has been created. Patient gowned. Head of bed elevated.Reassurance given. Two patient identifiers checked. Call light placed in reach. Side rails up x 1. Bedplaced in lowest position. Brakes of bed on. Patient ready for evaluation- ED physician notified. --04:159 Elizabeth Celaya R.N. Patient transported to [place] by wheelchair. --05:20 07/18/21 Elizabeth Celaya R.N. 05:20 07/18/2021 Site #1 started via IV in the right forearm with an 20g angiocath, with aseptic technique and good blood return; two attempts. Blood drawn: green and yellow tube(s). Labeled in the presence of the patient. Saline lock flushed with 10 mL saline. --05:20 07/18/21 Elizabeth Celaya R.N. 05:40 07/18/2021 Started bag #1 1000 mL IV Fluids NS; over 4 hour(s) via site #1 via IV pump. Allergies verified and confirmed 5 rights. IV patency established. IV site checked: no pain, redness, or swelling. IV flushed thoroughly pre- and post- medication administration. Information reviewed with patient including reason for taking this medication and precautions. Verbalizes understanding. --05:40 07/18/21 Elizabeth Celaya R.N. 05:41 07/18/2021 Started 25 mg of Phenergan IVPB in bag #1 50 mL; at over 10 minute(s) via site #1. via IV pump. Allergies verified and confirmed 5 rights. IV patency established. IV site checked: no pain, redness, or swelling. IV flushed thoroughly pre- and post-medication administration. Information reviewed with patient including reason for taking this medication, signs of allergic reaction and precautions. Verbalizes understanding. --05:41 07/18/21 Elizabeth Celaya R.N. 05:41 07/18/2021 PROTONIX (Pantoprazole Sodium) IVP 40 mg given over 2 minute(s) via site #1. Allergies verified and confirmed 5 rights. IV patency established. IV site checked: no pain, redness, or swelling. IV flushed thoroughly pre- and post-medication administration. IVP given by RN. Information reviewed with patient including reason for taking this medication, signs of allergic reaction and precautions. Verbalizes understanding. --05:41 07/18/21 Elizabeth Celaya R.N. Rounding: Pain: assessed pain level. Position: states comfortable. Personal care / toileting: assisted with toileting. Proximity of possessions / care items: call [place] easy reach. Plug ins: assured IV pump plugged in; checked status of equipment in use; located all cords, tubes, and lines to prevent fall hazard. Set expectations: advised patient of rounding protocol timing and asked if they needed anything else at this 4 Clinical Report - Nurses [facility] Emergency Department [address] [place] [address] Phone #: ext- [phone] 07/18/2021 04:01 Patient: MARVIN LEAHY Sex: M : 1990 Age: 31y time. --05:42 07/18/21 Elizabeth Celaya R.N. 05:41 07/18/21. BP: 132/82. MAP: 98. HR: 72. RR: 15. O2 saturation: 100%. Pain level now: 03/18. --05:42 07/18/21 Elizabeth Celaya R.N. Reassessment after medication administered. Pain gone now. He reports no complaints, he is sleeping and he has had no adverse reaction. Overall patient status is improved. --06:40 07/18/21 Elizabeth Celaya R.N. 06:39 07/18/21. BP: 114/63. MAP: 80. HR: 69. RR: 15. O2 saturation: 98% on room air. --06:40 07/18/21 Elizabeth Celaya R.N. 06:41 07/18/2021 Phenergan IVPB via IV site #1 Discontinued: bag #1 infused. Total amount infused: 50 mL. IV patency established. IV site checked: no pain, redness, or swelling. IV flushed thoroughly. --06:41 07/18/21 Elizabeth Celaya R.N. 06:54 07/18/21. BP: 120/71. MAP: 87. HR: 72. RR: 15. O2 saturation: 100%. --06:54 07/18/21 Elizabeth Celaya R.N.DISPOSITION / DISCHARGE 07:50 07/18/2021 Site #1 removed upon discharge. Catheter intact. Bandaid applied. --07:50 07/18/21 Consuelo Dumas 07:50 07/18/2021 IV Fluids NS via IV site #1 Discontinued: bag #1 completed. Total amount infused: 1000 mL. IV patency established. IV site checked: no pain, redness, or swelling. IV flushed thoroughly. --07:50 07/18/21 Consuelo Dumas Departure time: 07:51 07/18/2021. Condition at departure: stable. No learning barriers present. Discharge instructions provided and reviewed with the patient. Reviewed warnings. Reviewed medication(s). Treatments reviewed. Reviewed referrals. Patient verbalized understanding. Written instructions provided in [place]. The patient was discharged by the physician. He was discharged home and unaccompanied at time of discharge. He left ambulatory and via private vehicle. Lot Boss driving. --07:51 07/18/21 Consuelo Dumas 07:49 07/18/21. BP: 121/61. HR: 63. RR: 15. O2 saturation: 99%. Temp: 98.1 F. Pain level now 0/10. --07:51 07/18/21 Consuelo Dumas.Locked/Released at 07/18/2021 07:51 by Consuelo Dumas 5 Clinical Report - [facility] Emergency Department [address] [place] [address] Phone #: ext- [phone] 07/18/2021 04:01 Patient: MARVIN LEAHY Sex: M : 1990 Age: 31y Name Value Range Interpretation Code Description Data Marifer rce(s) Supporting Document(s) ID Date Data Source [id number] 07/18/2021 04:01:00 AM EDT [facility] 1 Clinical Report - Physicians/Mid Levels [facility] Emergency Department [address] [place] [address] Phone #: ext- [phone] 07/18/2021 04:01 Patient: MARVIN LEAHY Sex: M : 1990 Age: 31y Time Seen: 04:08 07/18/2021; initial patient contact. Arrived- By private vehicle. Historian- patient. Disposition decision: 06:51 07/18/2021.HISTORY OF PRESENT ILLNESS Chief Complaint: ABDOMINAL PAIN. It is described as located in the periumbilical area and in the left upper quadrant and left abdomen and the left flank. This started 2 days ago and is still present. It has been intermittent. At its maximum, severity described as severe and 8 / 10. When seen in the E.D., severity described as moderate and 5 / 10. Modifying factors. Not worsened by anything. Not relieved by anything. The patient has had nausea. No loss of appetite. He has had vomiting (yesterday). The vomiting has occurred twice. He has had mild diarrhea. It has been bloody. (pt well known to us for chronic recurrent abdominal pain w sometimes renal colic; pt has been here sever al times for this: 06/10, 05/06, 05/05, 02/15, 01/18, 01/13, 12/27, 12/20 (x2), 12/19, 12/01, 11/19, 10/19/20 09/17/20). No recent travel. Similar symptoms previously. Patient has had similar symptoms many times. ( has Hx of renal colic and chronic abdominal pain). Recent medical care: Not recently seen/assessed.REVIEW OF SYSTEMSNo constipation, black stools, hematemesis, difficulty with urination or pain with urination. No urinaryfrequency, fever, headache, sore throat or blurred vision. No chest pain, difficulty breathing, cough, jointpain or skin rash. No chills or back pain. The patient has had mildly bloody stools. They have occurredtwice and have been associated with bright red blood on the paper. He has not had weight loss. All othersystems reviewed and are negative.PAST HISTORYSee nurses notes. Problems: Abdominal Pain [Chronic]. Gastroenteritis. G6Pd Deficiency. Gastroesophageal Reflux Disease. Hypertension. Hematuria. Flank Pain. Chronic Back Pain. DVT - Deep Venous Thrombosis. Dehydration. 2 Clinical Report - Physicians/Mid Levels [facility] Emergency Department [address] [place] [address] Phone #: ext- [phone] 07/18/2021 04:01 Patient: MARVIN LEAHY Sex: M : 1990 Age: 31y Diarrhea. Hypokalemia. Testosterone deficiency. Syncope. Ureterolithiasis. Vomiting. Urinary Calculi. Sleep Apnea. (New diagnosis, Seen Thursday in [place] for CPAP treatment) Lumbar Strain. Insomnia. Nephrolithiasis. Skin Problems. Renal Colic. Additional Surgeries: Ureteral Stent. Uroscopy. Medications: allergy medicine daily. Eliquis Oral (Tablet 2.5 mg), 2x a day. Escitalopram Oxalate Oral (Tablet 10 mg), 2x a day. Ivermectin Oral (Tablet 3 mg) 3 tabs, every 6 months. Pregnyl Intramuscular (Solution Reconstituted 60897 unit), 3x a week. traZODone HCl Oral (Tablet 50 mg), daily. Xolair Subcutaneous (Solution Reconstituted 150 mg) 300mg, 3x a week. Allergies: None. Seafood.SOCIAL HISTORYNever smoker. Alcohol use; consumes beer occasionally. No drug use.ADDITIONAL NOTESThe nursing notes have been reviewed with agreement regarding the chief complaint, HPI, ROS, PMH andpatient medications and allergies.PHYSICAL EXAMVital Signs: 07/18/2021 04:10 BP: 131/107. MAP: 115. HR: 71. RR: 16. O2 saturation: 100%. Temp: 98.8F. Pain level now: 03/18. Have been reviewed. Hypertensive. Oxygen saturation normal.Appearance: Alert. Oriented X3. No acute distress.Eyes: Pupils equal, round and reactive to light. Eyes normal inspection.ENT: Nose normal. Pharynx no rmal.Neck: Normal inspection. Neck supple. 3 Clinical Report - Physicians/Mid Levels [facility] Emergency Department [address] [place] [address] Phone #: ext- [phone] 07/18/2021 04:01 Patient: MARVIN LEAHY Sex: M : 1990 Age: 31y CVS: Normal heart rate and rhythm. Heart sounds normal. Pulses normal. Respiratory: No respiratory distress. Painless inspiration. Breath sounds normal. Chest nontender. Abdomen: Soft. Mild tenderness in the left upper quadrant and left side of the abdomen. No guarding or rebound tenderness. Bowel sounds normal. No organomegaly. No mass. Femoral pulses equal. Back: Normal inspection. No CVA tenderness. Rectal: Rectal exam normal and nontender. (mild mucosal tear at 6 o'clock, no blood or stools in rectum). Skin: Skin warm and dry. Normal skin color. No rash. Normal skin turgor. Extremities: Extremities exhibit normal ROM. No lower extremity edema. Neuro: Oriented X 3. No motor deficit. No sensory deficit.LABS, X-RAYS, AND EKGAbdominal CT: [facility] Report Call: [phone] Online chat: [email or web address] Name: MARVIN LEAHY (Age): 1990 31 Gender: MDate of Exam: 07/18/2021 Physician: EVELIO LUNA # of Images: [id number] As: CT ABDOMEN/PELVIS WOCONFIDENTIALITY STATEMENTThis report is intended only for the use of the referring physician, and only in accordance with law, If youreceived this in error, call [phone] 1 of 1PROCEDURE INFORMATION:Exam: CT Abdomen And Pelvis Without ContrastExam date and time: 07/18/2021 5:22 AMAge: 31 years oldClinical indication: Abdominal pain; Left; Patient HX: Lt flank pain HX renal calcTECHNIQUE:Imaging protocol: Computed tomography of the abdomen and pelvis without contrast.COMPARISON:CT ABD PELVIS W/ IV ONLY 05/05/2021 4:45 AMFINDINGS:Liver: Normal. No mass.Gallbladder and bile ducts: Normal. No calcified stones. No ductal dilation.Pancreas: Normal. No ductal dilation.Spleen: Normal. No splenomegaly.Adrenal glands: Normal. No ma ss.Kidneys and ureters: Normal. No hydronephrosis.Stomach and bowel: There is colonic constipation. There is colonic constipation.Appendix: No evidence of appendicitis.Intraperitoneal space: Unremarkable. No free air. No significant fluid collection.Vasculature: Unremarkable. No abdominal aortic aneurysm.Lymph nodes: There are prominent right lower quadrant mesenteric lymph nodes which can be seen 4 Clinical Report - Physicians/Mid Levels [facility] Emergency Department [address] [place] [address] Phone #: ext- [phone] 07/18/2021 04:01 Patient: MARVIN LEAHY Sex: M : 1990 Age: 31yin mesenteric adenitis.Urinary bladder: Unremarkable as visualized.Reproductive: Unremarkable as visualized.Bones/joints: Unremarkable. No acute fracture.Soft tissues: Unremarkable.IMPRESSION:Findings that could reflect mesenteric adenitisThank you for allowing us to participate in the care of your patient.Dictated and Authenticated by: Manuelito Sanchez MD07/18/2021 6:45 AM Eastern Time ([facility]). Study type: abdomen and pelvis. Abdominal CTperformed with IV contrast. The study was interpreted by the radiologist.Laboratory Tests: Laboratory tests have been ordered, with results reviewed and considered in themedical decision making process.CBC w Diff: (DERRICK: 07/18/2021 05:16) ( MsgRcvd 07/18/2021 05:24) Final results Test Result Flag Units (Reference) CBC W/AUTOMATED DIFF COMPLETE BLOOD COUNT WBC 5.5 10/uL (4.2 - 11.0) RBC 4.78 10/uL (4.50 - 6.30) HEMOGLOBIN 13.9 L g/dL (14.0 - 16.0) HEMATOCRIT 42.4 % (41.0 - 51.0) MCV 88.7 fL (80.0 - 94.0) MCH 29.1 pg (27.0 - 34.0) MCHC 32.8 g/dL (31.0 - 36.0) RDW 12.5 % (11.5 - 14.8) PLATELETS 198 10/uL (150 - 450) MPV 10.2 fL (7.4 - 10.4) NEUT 40.7 % (37.0 - 80.0) LYMPH 44.9 H % (25.0 - 40.0) MONO 11.3 H % (3.0 - 8.0) EOS 2.2 % (0.0 - 7.0) BASO 0.5 % (0.0 - 2.0) %IG 0.4 H % (0.0 - 0.0) %NRBC 0.0 % (0.0 - 0.0) #NEUT 2.24 10/uL (2.00 - 6.90) #LYMPH 2.47 10/uL (0.60 - 3.40) #MONO 0.62 10/uL (0.00 - 0.90) #EOS 0.12 10/uL (0.00 - 0.70) #BASO 0.03 10/uL (0.00 - 0.20) #IG 0.02 10/uL (0.00 - 0.10) #NRBC 0.00 10/uL (0.00 - 0.00) MANUAL DIFF NOT INDICATED RBC MORPH NOT INDICATEDCMP: (DERRICK: 07/18/2021 04:52) ( MsgRcvd 07/18/2021 05:48) Final results Test Result Flag Units (Reference) COMPREHENSIVE METABOLIC PANEL COMPREHENSIVE METABOLIC PANEL SODIUM 139 mEq/L (134 - 153) POTASSIUM 4.1 mEq/L (3.6 - 5.0) CHLORIDE 105 mEq/L (98 - 107) CO2 26 MEQ/L (22 - 30) GLUCOSE 113 H MG/DL (70 - 99) 5 Clinical Report - Physicians/Mid Levels [facility] Emergency Department [address] [place] [address] Phone #: ext- [phone] 07/18/2021 04:01 Patient: MARVIN LEAHY Sex: M : 1990 Age: 31y BUN 11 MG/DL (7 - 21) CREATININE 0.8 MG/DL (0.7 - 1.5) BUN/CREAT 14 (8 - 27) TOTAL PROTEIN 7.7 G/DL (6.3 - 8.2) ALBUMIN 4.5 G/DL (3.9 - 5.0) GLOBULIN 3.2 GM/DL (2.4 - 3.2) A/G RATIO 1.4 (0.8 - 2.0) CALCIUM 9.5 MG/DL (8.4 - 10.2) TOTAL BILI <0.7 MG/DL (0.2 - 1.3) ALKALINE PHOS 70 U/L (38 - 126) SGOT/AST 41 H U/L (5 - 40) SGPT/ALT 34 U/L (7 - 56) ANION GAP 8.0 mmol/L (8.0 - 16.0) AGE 31 yrs NON-AA GFR >60 mL/min AFR AMER [...] and above >32 mL/min Normal Lipase: (DERRICK: 07/18/2021 04:52) ( [facility] 07/18/2021 05:48) Final results Test Result Flag Units (Reference) LIPASE 29 U/L (13 - 60) UA REFLEX TO UA CULTURE: (DERRICK: 07/18/2021 05:35) ( [facility] 07/18/2021 05:49) Final results Test Result Flag Units (Reference) UA REFLEX TO UA CULTURE URINALYSIS SOURCE R COLOR yellow (NORMAL: Yello CLARITY clear (NORMAL: Clear SPEC GRAVITY 1.025 (1.001 - 1.030 pH 6 (5 - 9) GLUCOSE NORM (NORMAL: Negat BILIRUBIN NEG (NORMAL: Negat KETONE NEG (NORMAL: Negat PROTEIN NEG (NORMAL: Negat NITRITE NEG (NORMAL: Negat BLOOD 10 A (NORMAL: Negat LEUK EST NEG (NORMAL: Negat UROBILINOGEN NOR (less than 1.0 MICROSCOPIC See Below WBC 1 - 3 (NORMAL: NONE RBC 5 - 7 A (NORMAL: NONE EPITHELIAL FEW (NORMAL: NONE BACTERIA 1+ SMALL (NORMAL: NONE MUCOUS 2+ A (NORMAL: NONE Lactic Acid: (DERRICK: 07/18/2021 04:52) ( [facility] 07/18/2021 05:07) Final results Test Result Flag Units (Reference) LACTIC ACID 1.4 MMOL/L (0.2 - 2.2). 6 Clinical Report - Physicians/Mid Levels [facility] Emergency Department [address] [place] [address] Phone #: ext- [phone] 07/18/2021 04:01 Patient: MARVIN LEAHY Sex: M : 1990 Age: 31yPROGRESS AND PROCEDURESCourse of Care: 06:48 07/18/21. workup all in and reviewed and nml except mild hematuria; WBC, lacticnml; CTAP w/o results in and showing possibly mesenteric adenitis; pt doing markedly better, sleepingcomfortably, w/o pain, abdomen soft; pt has chronic recurrent abdominal pain, [place] d/c instructions given, pt understands and agrees. Patient counseled in person [...] exam is improved; no abnormal test results; improving condition on multiple repeat evaluations; social support is good; transportation is available; follow-up is available; clinical impression is consistent with outpatient treatment.CLINICAL IMPRESSION Chronic left upper quadrant and periumbilical abdominal pain of undetermined cause, now resolved. Acute mesenteric lymphadenitisINSTRUCTIONS Drink plenty of fluids. Avoid alcohol and NSAIDS. NSAIDS include aspirin, ibuprofen (Advil) and naproxen (Aleve). Avoid fatty, fried/greasy, lactose-containing (such as milk, cheese and ice cream), salty and spicy foods. No alcohol. Do not smoke. (PLEASE FOLLOW UP WITH YOUR FAMILY MD ON POST THIS WEEK FOR GI REFERRAL FOR YOUR CHRONIC ABDOMINAL PAIN). Warnings: Further evaluation is necessary in order to conduct further tests (GI REFERRAL). It is very important to follow up [...] been reviewed. CONTINUE TAKING THE FOLLOWING MEDICATIONS: allergy medicine daily*. Eliquis Oral : Tablet 2.5 mg, 2x a day. Escitalopram Oxalate Oral : Tablet 10 mg, 2x a day. 7 Clinical Report - Physicians/Mid Levels [facility] Emergency Department [address] [place] [address] Phone #: ext- [phone] 07/18/2021 04:01 Patient: MARVIN LEAHY Sex: M : 1990 Age: 31y Ivermectin Oral : Tablet 3 mg, 3 tabs every 6 months. Pregnyl Intramuscular : Solution Reconstituted 48729 unit, 3x a week. traZODone HCl Oral : Tablet 50 mg, daily. Xolair Subcutaneous : Solution Reconstituted 150 mg, 300mg 3x a week. Follow-up: Return to the emergency department as needed. Follow up with your healthcare provider in two days even if well. Call for an appointment. Reason for referral: evaluation, treatment and GI REFERRAL. Summary of care provided to patient via paper. Follow up with a wagon winder in five days even if well. Call for an appointment. Reason for referral: evaluation and treatment. Summary of care provided to patient via paper. Understanding of the discharge instructions verbalized by patient. Expected course of illness, discharge instructions, activity level, diet, follow-up appointment and risks and benefits of treatment reviewed with patient and understanding verbalized. Agrees to plan of care.(Electronically signed by Evelio Luna M.D. 07/18/2021 06:56) Name Value Range Interpretation Code Description Data Marifer rush(s) Supporting Document(s) ID Date Data Source [id number] 07/18/2021 05:48:00 AM EDT [facility] Name Value Range Interpretation Code Description Data Marifer rce(s) Supporting Document(s) UA REFLEX TO UA CULTURE [facility] URINALYSIS SOURCE R [facility] COLOR yellow NORMAL: Yellow [facility] CLARITY clear NORMAL: Clear [facility] Specific gravity of Urine by Test strip 1.025 1.001 - 1.030 [facility] pH 6 5 - 9 [facility] Gl[facility] [Mass/volume] in Urine by Test strip NORM NORMAL: Negat [facility] Bilirubin.total [Presence] in Urine by Test strip NEG NORMAL: Negative [facility] Ketones [Presence] in Urine by Test strip NEG NORMAL: Negative [facility] Protein [Mass/volume] in Urine by Test strip NEG NORMAL: Negat [facility] Nitrite [Presence] in Urine by Test strip NEG NORMAL: Negative [facility] BLOOD 10 NORMAL: Negative [facility] Leukocyte esterase [Presence] in Urine by Test strip NEG LLUVIA L: Negative [facility] Urobilinogen [Mass/volume] in Urine by Test strip NOR less fidelia n 1.0 mg/dL [facility] MICROSCOPIC See Below [facility] ital WBC 1 - 3 NORMAL: NONE SEEN [facility] Erythrocytes [#/volume] in Urine by Test strip 5 - 7 NORMAL: NON E SEEN A [facility] EPITHELIAL FEW NORMAL: NONE SEEN [facility] Bacteria [Presence] in Urine sediment by Light microscopy 1+ SMALL NORMAL: NONE SEEN [facility] Mucus [Presence] in Urine sediment by Light microscopy 2+ NOR MAL: NONE SEEN A [facility] ID Date Data Source [id number] 07/18/2021 05:24:00 AM EDT [facility] Name Value Range Interpretation Code Description Data Marifer rce(s) Supporting Document(s) CBC W/AUTOMATED DIFF [facility] [facility] COMPLETE BLOOD COUNT Leukocytes [#/volume] in Blood by Automated count 5.5 10^3/uL 4.2 - 1 1.0 [facility] Erythrocytes [#/volume] in Blood by Automated count 4.78 10^6/uL 4. 50 - 6.30 [facility] Hemoglobin [Mass/volume] in Blood 13.9 g/dL 14.0 - 16.0 L [facility] Hematocrit [Volume Fraction] of Blood by Automated count 42.4 % 4 1.0 - 51.0 [facility] Erythrocyte mean corpuscular volume [Entitic volume] by Auto mated count 88.7 fL 80.0 - 94.0 [facility] Erythrocyte mean corpuscular hemoglobin [Entitic mass] by Automated count 29.1 pg 27.0 - 34.0 [facility] Erythrocyte mean corpuscular hemoglobin concentration [Mass/volume] by Automated count 32.8 g/dL 31.0 - 36.0 [facility] Erythrocyte distribution width [Ratio] by Automated count 12.5 % 11.5 - 14.8 [facility] Platelets [#/volume] in Blood by Automated count 198 10^3/uL 150 - 45 0 [facility] Platelet mean volume [Entitic volume] in Blood by Automated count 10.2 fL 7.4 - 10.4 [facility] Neutrophils/100 leukocytes in Blood by Automated count 40.7 % 37. 0 - 80.0 [facility] Lymphocytes/100 leukocytes in Blood by Manual count 44.9 % 25.0 - 40.0 H [facility] Monocytes/100 leukocytes in Blood by Automated count 11.3 % 3.0 - 8.0 H [facility] Eosinophils/100 leukocytes in Blood by Automated count 2.2 % 0.0 - 7.0 [facility] Basophils/100 leukocytes in Blood by Automated count 0.5 % 0.0 - 2.0 [facility] %IG 0.4 % 0.0 - 0.0 [facility] %NRBC 0.0 % 0.0 - 0.0 [facility] al Neutrophils [#/volume] in Blood by Automated count 2.24 10^3/uL 2.00 - 6.90 [facility] Lymphocytes [#/volume] in Blood by Automated count 2.47 10^3/uL 0.60 - 3.40 [facility] Monocytes [#/volume] in Blood by Automated count 0.62 10^3/uL 0.00 - 0.90 [facility] Eosinophils [#/volume] in Blood by Automated count 0.12 10^3/uL 0.00 - 0.70 [facility] Basophils [#/volume] in Blood by Automated count 0.03 10^3/uL 0.00 - 0.20 [facility] #IG 0.02 10^3/uL 0.00 - 0.10 [facility] H ospital #NRBC 0.00 10^3/uL 0.00 - 0.00 [facility] ospital MANUAL DIFF NOT INDICATED [facility] RBC MORPH NOT INDICATED [facility] spital ID Date Data Source [id number] 07/18/2021 05:48:00 AM EDT [facility] Name Value Range Interpretation Code Description Data Marifer rce(s) Supporting Document(s) Lipase [Enzymatic activity/volume] in Serum or Plasma 29 U/L 13 - 60 [facility] ID Date Data Source [id number] 07/18/2021 05:47:00 AM EDT [facility] Name Value Range Interpretation Code Description Data Marifer rce(s) Supporting Document(s) COMPREHENSIVE METABOLIC PANEL [facility] COMPREHENSIVE METABOLIC PANEL Sodium [Moles/volume] in Serum or Plasma 139 mEq/L 134 - 153 [facility] Potassium [Moles/volume] in Serum or Plasma 4.1 mEq/L 3.6 - 5.0 [facility] Chloride [Moles/volume] in Serum or Plasma 105 mEq/L 98 - 107 [facility] Carbon dioxide, total [Moles/volume] in Serum or Plasma 26 MEQ/L 22 - 30 [facility] Glucose [Mass/volume] in Serum or Plasma 113 MG/DL 70 - 99 H [facility] BUN 11 MG/DL 7 - 21 [facility] al Creatinine [Mass/volume] in Serum or Plasma 0.8 MG/DL 0.7 - 1.5 [facility] BUN/CREAT 14 8 - 27 [facility] Protein [Mass/volume] in Serum or Plasma 7.7 G/DL 6.3 - 8.2 [facility] Albumin [Mass/volume] in Serum or Plasma 4.5 G/DL 3.9 - 5.0 [facility] Globulin [Mass/volume] in Serum by calculation 3.2 GM/DL 2.4 - 3.2 [facility] A/G RATIO 1.4 0.8 - 2.0 [facility] Calcium [Mass/volume] in Serum or Plasma 9.5 MG/DL 8.4 - 10.2 [facility] Bilirubin.total [Mass/volume] in Serum or Plasma <0.7 MG/DL 0.2 - 1.3 [facility] Alkaline phosphatase [Enzymatic activity/volume] in Serum or Plasma 70 U/L 38 - 126 [facility] Aspartate aminotransferase [Enzymatic activity/volume] in Serum or Plasma 41 U/L 5 - 40 H [facility] Alanine aminotransferase [Enzymatic activity/volume] in Seru m or Plasma 34 U/L 7 - 56 [facility] Anion gap 3 in Serum or Plasma 8.0 mmol/L 8.0 - 16.0 [facility] AGE 31 yrs [facility] al NON-AA GFR >60 mL/min [facility] ital AFR AMER GFR >60 mL/min [facility] Ho spital Male GFR In [...] >32 mL/min Normal ID Date Data Source [id number] 07/18/2021 05:06:00 AM EDT [facility] Name Value Range Interpretation Code Description Data Marifer rce(s) Supporting Document(s) Lactate [Moles/volume] in Serum or Plasma 1.4 MMOL/L 0.2 - 2.2 [facility] ID Date Data Source [id number] 07/04/2021 12:14:00 AM EDT [facility] Name Value Range Interpretation Code Description Data Marifer rce(s) Supporting Document(s) SARS coronavirus 2 RNA [Presence] in Res piratory specimen by LENNOX with probe detection NEGATIVE [facility] This lab was ordered by [facility] a nd reported by [facility]. ID Date Data Source [id number] 07/03/2021 06:52:00 PM EDT [facility] Name Value Range Interpretation Code Description Data [facility] rce(s) Supporting Document(s) SARS coronavirus 2 RNA [Presence] in Res piratory specimen by LENNOX with probe detection NEGATIVE [facility] This lab was ordered by [facility] a nd reported by [facility]. ID Date Data Source [id number] 06/18/2021 02:20:00 PM EDT [facility] ([facility]) Name Value Range Interpretation Code Description Data Marifer rce(s) Supporting Document(s) Color of Urine Laboratory test result [facility] ([facility]) Appearance of Urine Laboratory test result [facility] ([facility]) Spec [place] 1.005 1.001-1.030 [facility] ([facility]) pH of Urine by Test strip 8 5-9 [facility] NT ([facility]) Leukocytes Laboratory test result [facility] ([facility]) Nitrate [Presence] in Urine Laboratory test result [facility] ([facility]) Protein [Presence] in Urine by Test strip Laboratory test result [facility] ([facility]) Inhouse Glucose Laboratory test result [facility] ([facility]) Ketones [Presence] in Urine by Test strip Laboratory test result [facility] ([facility]) Urobilinogen Laboratory test result [facility] ([facility]) Bilirubin.total [Presence] in Urine by Test strip Laboratory test res ult [facility] ([facility]) Blood type and Indirect antibody screen panel - Blood Laboratory test result [facility] ([facility]) ID Date Data Source [id number] 06/10/2021 11:30:00 AM EDT [facility] 1 OrderSheet [facility] Emergency Department [address] [place] [address] Phone #: ext- [phone] 06/10/2021 11:26 Patient: MARVIN LEAHY Sex: M : 1990 Age: 31yWEIGHT:91.6 kg (S) HEIGHT:68 inches (S) BMI:30.7ALLERGIES: None, SeafoodCHIEF COMPLAINT: abdominal painDIAGNOSIS: Gastroesophageal reflux diseaseLAB ORDERSOrder Description Priority Entered Acknowledged InitialedDIAGNOSTIC STUDY ORDERSOrder Description Priority Entered Acknowledged InitialedMEDICATION/IV/DRIP/FLUID ORDERSOrder Description Priority Entered Acknowledged InitialedGI Cocktail PO 50 13:31 06/10/2021 13:42 Niki Rowland with Lidocaine Larry Moreno R.N.Viscous PA;Mouth/Throat 10mL , Maalox Oral 30mL, Oral10 mLProtonix PO 40 mg 13:31 06/10/2021 13:42 Michelle Rowland(Do not crush or Larry Tiffanie Hubbardchew) PA;GENERAL ORDERSOrder Description Priority Entered Acknowledged Initialed[Electronically signed by Michelle Rowland R.N. (13:57 06/10/2021)][Electronically signed by Larry Moreno (17:28 06/10/2021)][Electronically locked by Michelle Rowland R.N. (13:57 06/10/2021)] Name Value Range Interpretation Code Description Data Marifer rce(s) Supporting Document(s) ID Date Data Source [id number] 06/10/2021 11:30:00 AM EDT [facility] 1 Medication Reconciliation Report [facility] Emergency Department [address] [place] [address] Phone #: ext- [phone] 06/10/2021 11:26 Patient: MARVIN LEAHY Sex: M : 1990 Age: 31yWeight: 91.6 kgHeight/Length: 68 in.BMI: 30.7ALLERGIES: None, SeafoodThe patient's Home Medications are listed below:THE FOLLOWING MEDICATIONS NEED TO BE RECONCILED: allergy medicine daily Eliquis Oral (2.5 mg), 2x a day Escitalopram Oxalate Oral (10 mg), 2x a day Ivermectin Oral (3 mg) 3 tabs, every 6 months Pregnyl Intramuscular (35404 unit), 3x a week traZODone HCl Oral (50 mg), daily Xolair Subcutaneous (150 mg) 300mg, 3x a weekThe source(s) of the original Home Medication information:Not obtained.The following Medications were given to the patient in the Emergency Department:GI Cocktail [PO] PO 50 mL, administered: 13:42 06/10/2021rotonix [PO] PO 40 mg, administered: 13:42 06/10/2021The following Medications were prescribed to the patient:Protonix 40 mg tablet,delayed release Take 1 tablet once a day for 30 days -- Dispense 30 tablet.Refills: 0. Substitution permitted.Pharmacy - [facility] [id number] [facility] ; [place] [address]. . 2 Medication Reconciliation Report [facility] Emergency Department [address] [place] [address] Phone #: [phone] ext- [phone] 06/10/2021 11:26 Patient: MARVIN LEAHY Sex: M : 1990 Age: 31yZofran 4 mg tablet Take 1 tablet three times a day for 10 days -- Dispense 30 tablet. Refills: 0.Substitution permitted.Pharmacy - [facility] [id number] [facility] ; [place] [address]. FaxNumber: . -- Larry Swatsworth, PA Name Value Range Interpretation Code Description Data Marifer rce(s) Supporting Document(s) ID Date Data Source [id number] 06/10/2021 11:30:00 AM EDT [facility] 1 Medication Administration Record [facility] Emergency Department [address] [place] [address] Phone #: ext- [phone] 06/10/2021 11:26 Patient: MARVIN LEAHY Sex: M : 1990 Age: 31yWeight: 91.6 kgHeight/Length: 68 inBMI: 30.7ALLERGIES: None, Seafood Date/Time Medication Administered Medication OrderedGiven GI COCKTAIL [PO] (CALCIUM GI Cocktail PO 50 mL with13:42 06/10/2021 CARBONATE ANTACID) Lidocaine Viscous Mouth/ThroatMichelle Rowland RYangNYang Dose: 50 mL Oral Suspension PO 10 mL, Maalox Oral 30 mL, Oral 10 mLGiven PROTONIX [PO] (PANTOPRAZOLE Protonix PO 40 mg (Do not crush13:42 06/10/2021 SODIUM) or chew)Michelle Rowland RYangNYang Dose: 40 mg Tablets PO Name Value Range Interpretation Code Description Data Marifer rce(s) Supporting Document(s) ID Date Data Source [id number] 06/10/2021 11:30:00 AM EDT [facility] 1 General Instructions [facility] Emergency Department [address] [place] [address] Phone #: ext- [phone] 06/10/2021 11:26 Patient: MARVIN LEAHY Sex: M : 1990 Age: 31yGastroesophageal reflux disease. No esopha gitis.INSTRUCTIONSDo not work today.Drink plenty of fluids.Warnings: Further evaluation is necessary. It is very important to follow up with a healthcare provider.GENERAL WARNINGS: Return or contact your physician immediately if your condition worsens orchanges unexpectedly, if not improving as expected, or if other problems arise. SPECIFICALLY, return ifthere is no improvement in the pain in the abdomen.Prescription Medications:Protonix 40 mg tablet,delayed release Take 1 tablet once a day for 30 days -- Dispense 30 tablet.Refills: 0. Substitution permitted.Pharmacy - [facility] ; [place] [address]. .Zofran 4 mg tablet Take 1 tablet three times a day for 10 days -- Dispense 30 tablet. Refills: 0.Substitution permitted.Pharmacy - [facility] ; [place] [address]. .Follow-up:Follow up with your doctor. Reason for referral: evaluation, treatment and refer to Gastroenterolgy.Summary of care provided to patient. ADDITIONAL INFORMATIONGERD (Adult) 2 General Instructions [facility] Emergency Department [address] [place] [address] Phone #: ext- [phone] 06/10/2021 11:26 Patient: MARVIN LEAHY Sex: M : 1990 Age: 31y The esophagus is a tube that carries food from the mouthto the stomach. A valve (the LES, lower esophageal sphincter) at the lower end of the esophagusprevents stomach acid from flowing upward. When this valve doesn't work properly, stomach contentsmay repeatedly flow back up (reflux) into the esophagus. This is called gastroesophageal refluxdisease (GERD). GERD can irritate the esophagus. It can cause problems with pain, swallowing orbreathing. In severe cases, GERD can cause recurrent pneumonia (from aspiration or breathing inparticles) or other serious problems.Symptoms of reflux include burning, pressure or sharp pain in the upper abdomen or mid to lowerchest. The pain can spread to the neck, back, or shoulder. There may be belching, an acid taste inthe back of the throat, chronic cough, or sore throat, or hoarseness. GERD symptoms often occurduring the day after a big meal. They can also occur at night when lying down.Home careLifestyle changes can help reduce symptoms. If needed, your healthcare provider may prescribemedicines. Symptoms often improve with treatment, but if treatment is stopped, the symptoms oftenreturn after a few months. So most persons with GERD will need to continue treatment or gettreatment on and off.Lifestyle changes 3 General Instructions [facility] Emergency Department [address] [place] [address] Phone #: ext- [phone] 06/10/2021 11:26 Patient: MARVIN LEAHY Sex: M : 1990 Age: 31y Limit or avoid fatty, fried, and spicy foods, as well as coffee, chocolate, mint, and foods with high acid content such as tomatoes and citrus fruit and juices (orange, grapefruit, lemon). Don't eat large meals, especially at night. Frequent, smaller meals are best. Don't lie down right after eating. And don't eat anything 3 hours before going to bed. Don't drink alcohol or smoke. As much as possible, stay away from second hand smoke. If you are overweight, losing weight will reduce symptoms. Don't wear tight clothing around your stomach area. If your symptoms occur during sleep, use a foam wedge to elevate your upper body (not just your head.) Or, place 4" blocks under the head of your bed. Or use 2 bed risers under your bedframe.MedicinesIf needed, medicines can help relieve the symptoms of GERD and prevent damage to the esophagus.Discuss a medicine plan with your healthcare provider. This may include one or more of the followingmedicines: Antacids to help neutralize the normal acids in your stomach. Acid blockers (Histamine or H2 blockers) to decrease acid production. Acid inhibitors (proton pump inhibitors PPIs) to decrease acid production in a different way than the blockers. They may work better, but can take a little longer to take effect.Take an antacid 30 to 60 minutes after eating and at bedtime, but not at the same time as an acidblocker.Try not to take medicines such as ibuprofen and aspirin. If you are taking aspirin for your heart orother medical reasons, talk to your healthcare provider about stopping it.Follow-up careFollow up with your healthcare provider or as advised by our staff.When to seek medical adviceCall your healthcare provider if any of the following occur: Stomach pain gets worse or moves to the lower right abdomen (appendix area) Chest pain appears or gets worse, or spreads to the back, neck, shoulder, or arm An [id number] trial of medicine doesn't relieve your symptoms 4 General Instructions [facility] Emergency Department [address] [place] [address] Phone #: [phone] [phone]- [phone] 06/10/2021 11:26 Patient: MARVIN LEAHY Sex: M : 1990 Age: 31y Weight loss that can't be explained Trouble or pain swallowing Frequent vomiting (can't keep down liquids) Bl ood in the stool or vomit (red or black in color) Feeling weak or dizzy Fever of 100.4F (38C) or higher, or as directed by your healthcare provider [phone] [employer]. [address] [place] [address]. All rights reserved. This information is not intended as asubstitute for professional medical care. Always follow your healthcare professional's instructions. You have been given the following additional information: GERD (Adult) Do not work today.(Electronically signed by PERLA Cisse 06/10/2021 17:28) Name Value Range Interpretation Code Description Data Marifer rce(s) Supporting Document(s) ID Date Data Source [id number] 06/10/2021 11:30:00 AM EDT [facility] 1 Clinical Report - Nurses [facility] Emergency Department [address] [place] [address] Phone #: ext- [phone] 06/10/2021 11:26 Patient: MARVIN LEAHY Sex: M : 1990 Age: 31yTRIAGEArrived by private vehicle. Historian: patient. Unaccompanied. ( epigastic burning (has had before)started to get better [facility] and then it was worse).Acuity: LEVEL 3.Chief Complaint: ABDOMINAL PAIN and (epigastric buring).Alert.Onset. (thursday).Treatment PROGRAM SUPPORT SPECIALIST:None.SEPSIS SCREEN: SIRS SCREEN NEGATIVE. SEPSIS SCREEN NEGATIVE. No suspected or confirmedsigns of infection present. --13:08 06/10/21 Michelle Rowland R.N.13:04 06/10/21. BP: 130/64. MAP: 86. HR: 68. RR: 18. O2 saturation: 100%. Temp: 98.1 F. Pain levelnow: 06/18. --13:08 06/10/21 Michelle Rowland R.N.Weight: 91.6 kg stated. Height/Length: 68 inches Per Patient. BMI: 30.7. --13:03 06/10/21 Michelle Rowland R.N.Medicationsallergy medicine daily. Eliquis Oral (Tablet 2.5 mg), 2x a day. Escitalopram Oxalate Oral (Tablet 10 mg), 2x a day. Ivermectin Oral (Tablet 3 mg) 3 tabs, every 6 months. Pregnyl Intramuscular (Solution Reconstituted 55249 unit), 3x a week. traZODone HCl Oral (Tablet 50 mg), daily. Xolair Subcutaneous (Solution Reconstituted 150 mg) 300mg, 3x a week. --13:06/10/21 Michelle Rowland R.N.AllergiesNone.Seafood. --13:06/10/21 Michelle Rowland R.N.PROBLEMS:Gastroenteritis.G6Pd Deficiency.Hematuria.Hypokalemia. 2 Clinical Report - Nurses [facility] Emergency Department [address] [place] [address] Phone #: ext- [phone] 06/10/2021 11:26 Patient: MARVIN LEAHY Sex: M : 1990 Age: 31yHypertension.Flank Pain.Chronic Back Pain.Abdominal Pain.Dehydration.DVT - Deep Venous Thrombosis.Diarrhea.Testosterone deficiency.Syncope.Ureterolithiasis.Vomiting.Urinary Calculi.Sleep Apnea: (New diagnosis, Seen Thursday in [place] for CPAP treatment).Lumbar Strain.Insomnia.Nephrolithiasis.Skin Problems.Renal Colic. --13:06/10/21 Michelle Rowland R.N.ADDITIONAL SURGERIES:Ureteral Stent.Uroscopy. --13:06/10/21 Michelle Rowland R.N.HistoryPAST MEDICAL HX: Immunizations: up-to-date.SOCIAL HX: Never smoker. No alcohol use or drug use. No recent travel. No known contact with a sickindividual. He was offered HIV testing but declined and hepatitis C testing but declined. He has nottraveled outside the [place]Infectious disease exposure: No infectious disease exposure. The patient was not exposed to Coronavirus.Patient is not a known carrier of tuberculosis, hepatitis, HIV, MRSA or VRE. Patient is not a known carrierof CRE.SELF HARM ASSESSMENT: Self harm assessment was performed. The patient answered "no" to thequestion(s) "Have you recently felt down, depressed, or hopeless?" and "Do you have thoughts of harmingor killing yourself?".ABUSE ASSESSMENT: Abuse assessment. Abuse denied. No suspicion of abuse. No report of abuse.NUTRITIONAL RISK ASSESSMENT: The nutritional risk assessment revealed no deficiencies.FUNCTIONAL ASSESSMENT: Functional assessment: no impairments noted.LEARNING NEEDS ASSESSMENT: The learning needs assessment revealed no barriers. 3 Clinical Report - Nurses [facility] Emergency Department [address] [place] [address] Phone #: ext- [phone] 06/10/2021 11:26 Patient: MARVIN LEAHY Sex: M : 1990 Age: 31y FALL RISK ASSESSMENT: Fall risk assessment completed. No risk factors identified. SKIN INTEGRITY ASSESSMENT: Skin integrity risk assessment completed. No skin integrity risk identified. --13:06/10/21 Michelle Rowland R.N. Interventions Identification band on patient. To treatment room. --13:06/10/21 Michelle Rowland R.N.PHYSICAL ASSESSMENTGENERAL / NEURO / PSYCH: Alert. Oriented X 4.HEENT: Mucous membranes are pink.RESPIRATORY: Respirations not labored. Breath sounds within normal limits.CVS: Normal sinus rhythm noted. Capillary refill less than 2 seconds.GI / : Abdomen soft. Abdominal tenderness in the epigastric area (burning). Bowel sounds withinnormal limits.SKIN: Skin is warm and dry. --13:06/10/21 Michelle Rowland R.N.NURSING PROGRESS NOTESPatient gowned. Re assurance given. Two patient identifiers checked. Call light placed in reach. Siderails up x 2. Bed placed in lowest position. Brakes of bed on. Patient ready for evaluation. --13: Michelle Rowland R.N. 13:42 06/10/2021 GI Cocktail (Calcium Carbonate Antacid) PO Oral Suspension 50 mL given. Allergies verified and confirmed 5 rights. Information reviewed with patient including reason for taking this medication, signs of allergic reaction and precautions. Verbalizes understanding. --13:42 06/10/21 Michelle Rowland R.N. 13:42 06/10/2021 Protonix (Pantoprazole Sodium) PO Tablets 40 mg given. Allergies verified and confirmed 5 rights. Information reviewed with patient including reason for taking this medication, signs of allergic reaction and precautions. Verbalizes understanding. --13:42 06/10/21 Michelle Rowland R.N.DISPOSITION / DISCHARGE 13:44 06/10/21. BP: 128/76. HR: 76. RR: 16. O2 saturation: 99%. Temp: 98.1 F. Pain level now 3/10. --13:44 06/10/21 [facility] [place] [id number] Condition at departure: improved. No learning barriers present. Discharge instructions provided and reviewed with the patient. Reviewed medication(s) side effects, precautions, dosing and course information. Prescription(s) sent electronically to pharmacy. No prescription given to the patient. Reviewed fever care instructions. Patient verbalized understanding. Written instructions provided [place] [facility]. The patient was discharged home and unaccompanied at time of discharge. He left ambulatory and via private vehicle. Patient driving. --13:57 06/10/21 Michelle Rowland R.N. Departure time: 13:57 06/10/2021. --13:57 06/10/21 Michelle Rowland R.N. 4 Clinical Report - Nurses [facility] Emergency Department [address] [place] [address] Phone #: ext- [phone] 06/10/2021 11:26 Patient: MARVIN LEAHY Sex: M : 1990 Age: 31yLocked/Released at 06/10/2021 13:57 by Michelle Rowland R.N. Name Value Range Interpretation Code Description Data Marifer rce(s) Supporting Document(s) ID Date Data Source [id number] 06/10/2021 11:30:00 AM EDT [facility] 1 Clinical Report - Physicians/Mid Levels [facility] Emergency Department [address] [place] [address] Phone #: ext- [phone] 06/10/2021 11:26 Patient: MARVIN LEAHY Sex: M : 1990 Age: 31y Time Seen: 13:31 06/10/2021. Arrived- By private vehicle. Historian- patient.HISTORY OF PRESENT ILLNESS Chief Complaint: ABDOMINAL PAIN. It is described as "pain" and burning and it is described as located in the epigastric area. This started today pigastic burning (has had before) started to get better than [facility] and then it was worse and is still present. It was abrupt in onset and has been constant. At its maximum, severity described as moderate. When seen in the E.D., severity described as moderate. The patient has had nausea and vomiting. No loss of appetite or diarrhea. Similar symptoms previously. Patient has had similar symptoms many times. Recent medical care: The patient was seen recently at this facility and another facility in the emergency department and a clinic.REVIEW OF SYSTEMSNo constipation, black stools, hematemesis, difficulty with urination or pain with urination. No urinaryfrequency, bloody stools, fever, headache or sore throat. No blurred vision, chest pain, difficulty breathing,cough or joint pain. No skin rash, chills or back pain. The patient has not had weight loss.PAST HISTORYProblems:Gastroenteritis.G6Pd Deficiency.Hematuria.Hypokalemia.Hypertension.Flank Pain.Chronic Back Pain.Abdominal Pain.Dehydration.DVT - Deep Venous Thrombosis.Diarrhea.Testosterone deficiency.Syncope.Ureterolithiasis.Vomiting.Urinary Calculi.Sleep Apnea. (New diagnosis, Seen Thursday in [place] for CPAP treatment)Lumbar Strain.Insomnia. 2 Clinical Report - Phys icians/Mid Levels [facility] Emergency Department [address] [place] [address] Phone #: ext- [phone] 06/10/2021 11:26 Patient: MARVIN LEAHY Sex: M : 1990 Age: 31y Nephrolithiasis. Skin Problems. Renal Colic. Additional Surgeries: Ureteral Stent. Uroscopy. Medications: allergy medicine daily. Eliquis Oral (Tablet 2.5 mg), 2x a day. Escitalopram Oxalate Oral (Tablet 10 mg), 2x a day. Ivermectin Oral (Tablet 3 mg) 3 tabs, every 6 months. Pregnyl Intramuscular (Solution Reconstituted 14023 unit), 3x a week. traZODone HCl Oral (Tablet 50 mg), daily. Xolair Subcutaneous (Solution Reconstituted 150 mg) 300mg, 3x a week. Allergies: None. Seafood.SOCIAL HISTORYNever smoker. No alcohol use or drug use.PHYSICAL EXAMVital Signs: 06/10/2021 13:04 BP: 130/64. MAP: 86. HR: 68. RR: 18. O2 saturation: 100%. Temp: 98.1 F.Pain level now: 8/10. Have been reviewed as normal. Oxygen saturation normal.Appearance: Alert. Oriented X3. No acute distress.Eyes: Pupils equal, round and reactive to light. Eyes normal inspection.ENT: Ears normal. Nose normal. Pharynx normal.Neck: Normal inspection.CVS: Normal heart rate and rhythm. Heart sounds normal.Respiratory: No respiratory distress. Breath sounds normal.Abdomen: Soft. Mild tenderness in the epigastric area. Bowel sounds normal. No organomegaly. Nomass.Back: Normal inspection.Skin: Skin warm and dry. Normal skin color. N ormal skin turgor.Extremities: Extremities exhibit normal ROM.Neuro: Oriented X 3.PROGRESS AND PROCEDURESCourse of Care: 13:34 Jun 10 2021. Evaluation after observation. (Discussed risks, benefits, options andpt needs to follow up with his BN PA for referral to GI.). Patient counseled in person regarding the patient's stable condition, diagnosis and need for follow-up. 3 Clinical Report - Physicians/Mid Levels [facility] Emergency Department [address] [place] [address] Phone #: ext- [phone] 06/10/2021 11:26 Patient: MARVIN LEAHY Sex: M : 1990 Age: 31y Patient agrees with plan of care. 13:34 Jun 10 2021. Disposition: Discharged home in good and improved condition (13:35 Jun 10 2021).CLINICAL IMPRESSION Gastroesophageal reflux disease. No esophagitis.INSTRUCTIONS Do not work today. Drink plenty of fluids. Warnings: Further evaluation is necessary. It is very important to follow up with a healthcare provider. GENERAL WARNINGS: Return or contact your physician immediately if your condition worsens or changes unexpectedly, if not improving as expected, or if other problems arise. SPECIFICALLY, return if there is no improvement in the pain in the abdomen. Prescription Medications: Protonix 40 mg tablet,delayed release Take 1 tablet once a day for 30 days -- Dispense 30 tablet. Refills: 0. Substitution permitted. Pharmacy - [facility] - [id number] [facility] ; [place] [address]. . Zofran 4 mg tablet Take 1 tablet three times a day for 10 days -- Dispense 30 tablet. Refills: 0. Substitution permitted. Pharmacy - [facility] - [id number] [facility] ; [place] [address]. . Follow-up: Follow up with your doctor. Reason for referral: evaluation, treatment and refer to Gastroenterolgy. Summary of care provided to patient.(Electronically signed by PERLA Cisse 06/10/2021 17:28) Name Value Range Interpretation Code Description Data Marifer rce(s) Supporting Document(s) ID Date Data Source [id number] 06/07/2021 08:52:11 AM EDT [facility] Name Value Range Interpretation Code Description Data Marifer rce(s) Supporting Document(s) Progress Note [facility] FBVYSb7uKoYAUmWi60/KKVnnCZRzf2AiLHuxUQz2ZQqnEYFkU2ZaWTN7xI4lWRV9DXbLQwGxUsYpKxPt lbm [file] W09cN/VdgFVphlXH612y5d5E+zYpGmXfAH2Oc505on7bqye9WZ0L7GwsDJtTLp1o+vCi3xYIO4Iuf+tax expert WsvXhlLt5pCsYnMRRebJ/tjY7k6SUgcNMgAUIkLcHfxOOPOXmDjow2OX3Ytpk8XLsV5W/RR1j0jFUrUm qs/o39FNfsf9Xm024oJu0pfohFaFZA2Qioq2AuuN2d nYS9f2vVsK/56l+v3f+M64C2CFbU97D+xWUdfcuH7fTj06cFqAr0c7ioVw+acu5U1P6vfJ67L9xntOiW xS3y98262veTHfVUCado95iSnErDW1HRK2G48U0AkhqTI+tlBg97Zp/ICjg33cx5VWHOdx1CwgBgYXs5 b2tO8Ruz00iq4otS7HxwSpeWle5TrhfgU6ru2+WLbS LwgY1BC5PPHKA3kUS1S5RYySfylOX2wMu/ua4y4Y8VcPYwgDWaqMhzYGangfz5BB99TcXNeymzGpiTVs 514Nz0srDG9wUGVwkr6kVIwRBy6lHJ8lfyJP89QjVELUKkk5xOUqD0sSung9P2Iw5e8Khi0zRKaqsH6V FMtFK6Oy/phCWVhXakltnE0FoK4/ywQj129+5QM1Mf 2MCaav1PabC/DyJpMMZV5gJB+r+XK5Qyah2LqJpa7zSr6IlsfyKiF38eaH/udaiy7MIoW0YM+74xRlLX Pfn/Cr1dsJhzbqUL+4/DQ4EQ3u3Ab+eZc0YA05uaWpB6Qv3htL4RflIxuImqcl7Ghp9Gdn5SFwSXWX9O 1UVTfq3NU4rul86Ur78uQ55jgxi2WQyv07fyBwU630 [file] OPHTHALMIC DISPENSER/Gh8E8bnxe7O/FdD9mmhRmvKZee0d6MIOflbSSJDSnq1CxGu7GIJF1h2LdoYyyBI4tm0Y2kE+FgWe [file] ICAgICAgICAgICAgICAgICAgICAgICAgICAgICAgICAgICAgICAgICAgICAgICAgICAgICAgICAgICAg ICAgICAgICAgICAgICAgICAgICAgICAgICANCiAgICAgICAgICAgICAgICAgICAgICAgICAgICAgICAg ICAgICAgICAgICAgICAgICAgICAgICAgICAgICAgIC AgICAgICAgICAgICAgICAgICAgICAgICAgICAgICAgICAgICANCiAgICAgICAgICAgICAgICAgICAgIC AgICAgICAgICAgICAgICAgICAgICAgICAgICAgICAgICAgICAgICAgICAgICAgICAgICAgICAgICAgIC AgICAgICAgICAgICAgICAgICANCiAgICAgICAgICAg ICAgICAgICAgICAgICAgICAgICAgICAgICAgICAgICAgICAgICAgICAgICAgICAgICAgICAgICAgICAg ICAgICAgICAgICAgICAgICAgICAgICAgICAgICANCiAgICAgICAgICAgICAgICAgICAgICAgICAgICAg ICAgICAgICAgICAgICAgICAgICAgICAgICAgICAgIC AgICAgICAgICAgICAgICAgICAgICAgICAgICAgICAgICAgICAgICANCiAgICAgICAgICAgICAgICAgIC AgICAgICAgICAgICAgICAgICAgICAgICAgICAgICAgICAgICAgICAgICAgICAgICAgICAgICAgICAgIC AgICAgICAgICAgICAgICAgICAgICANCiAgICAgICAg ICAgICAgICAgICAgICAgICAgICAgICAgICAgICAgICAgICAgICAgICAgICAgICAgICAgICAgICAgICAg ICAgICAgICAgICAgICAgICAgICAgICAgICAgICAgICANCiAgICAgICAgICAgICAgICAgICAgICAgICAg ICAgICAgICAgICAgICAgICAgICAgICAgICAgICAgIC AgICAgICAgICAgICAgICAgICAgICAgICAgICAgICAgICAgICAgICAgICANCiAgICAgICAgICAgICAgIC AgICAgICAgICAgICAgICAgICAgICAgICAgICAgICAgICAgICAgICAgICAgICAgICAgICAgICAgICAgIC AgICAgICAgICAgICAgICAgICAgICAgICANCiAgICAg ICAgICAgICAgICAgICAgICAgICAgICAgICAgICAgICAgICAgICAgICAgICAgICAgICAgICAgICAgICAg ICAgICAgICAgICAgICAgICAgICAgICAgICAgICAgICAgICANCjw/oIHlM6gocNMuglV4Z0ohSd3XGu6R PU6oo7ZvLMYdWDeuzhKcXmzCBkBhWGVdTbaZZmp5DK yuVL0XfVAsN2NnS4DsUWjaEZ6INAVjZGLoyVKfJGKnTJWhBmZ6SYFoLNsfIN8PrEIcIRamYHDbATXaAf QqHHGdPU1JHVJzF245unMhEe7NLv7TQxMdLU8fou9YGqQwKXPxCnhGRqs0ODqoYA4YtSTnaMTmBoTcKG HIYwQvR3pxt8KdSuUjBUMSKIwxLN5Zc8NbvIAcHNh+ Xv4TUH3go7KwRVbaDcAaQG1lic8KWFxWAdJrO7YlhFnwHKIss7xpEYWpUT7anJIxWQE9LVkmJcXIxtJq s0YzpQakPDCqKRCwFw9uWX7kGIEtVLY1IzNbZLIAIH6LDDOsKGWzfJQcNTWbBTMPOA4QMFgjFBI8UCTn nuDsxQAhTPkfGO8PONHqehHiFsCbBIMXCHg+Pg0KZW 0sh6VaJXmsXcIyYQ6qom8NHHkBJxKxP0V3wLVsD4G7XDbdYp3OVFVmILYmIWyiWMPYTBzfYB9ZIR4jcv Q6YZ7HhCXzEHTaGJLrrSJsBVn2X46ciTDfUZkdEI0ATWW+Jayla+Ah9MZGIjIDAuDWDvVuOpQQUIDlLxR9 KzP1YKp8MmZ5JsYO38oLnewjTgXAhlTH1TKC0xVGYd IMMJLI1HwBDwvK5brcYaGZHdJPZJAnXvN49dwLSuVJZeKOOiTUSeBs5NHAYpX3HagiMzcKheyyKlXRAi CVJHJY7NJConvcFwvLEwtQzbCW28iXyiES1IPp8CGvJwSS2jax3TmKFjDr3VIBArBW6KJKZbHIHhGMMa ALN3ETRvWmXcQAldAVQyWPRoAQD6DLBqDJFcMK6RUt PvHQIgKuE1PtfbPSHiPTRyex0HBUSkJBBbSnT3OIZhXLCjKALeLQprSNMdPVIyZOJ3FEWzWGTcLL7DFg CvRNSrZCR0WxdlRVDbLVFkev1TCCHpGIOgMjE3QiLzLDPtMELjCQfwOQRdOBS0AgGiYARdLAWeTS3ULa EfHAMmBEO3LvEfMZGdQKHqbz6FAFLuKDFaCrGvMSWw MYIiRFNuHIjaSZRdNHA8TyPuWVDsEGExAZ1HVzVuKTIoEEA4GATwALPhRQGxwn8JHKNmEIRvXgv5ISEq SHQaFLCnXBxwBVOrDSV3TWYvAHXcTDTeHY2JNhInBJAiTVibSNBlPKAdPFIsuh5DMATdLMWwUSVtMhYw DDYiAWMwBKslXKPpJOU6RLViYEClVDXcLO1HOnOpNL SaZlTwPsEmQKMuUUPeas8JANJmAYYdVKA2TJMuRKMySBQsPFkmEPOdJEPzQZP9LXCpNUXiGQ8ZZyTvDZ UyWhY7GWqbACGtUDFtlv0BOQFiJBCbPwL3GhWyPHDbAZGjVDheKHTaIIKkUBUxUELnULLwPM5GVdTcWI ZkEtK1OALsQHHqIGDpsm4DcSPfyDgrvd2PDVzESr7D aNlqNXW0MJnaJo4ikMWfHkNhKTEYZf3YsbRrQDGdUEAKSXshCAArISrfQkVgSgK0OnJbMiG2LMXlTGA8 Mwa3OVWaRyZlHJhbIjX0VRLwWEOhNeuqQGUcSfooLAAwXJq8YFw4KIR6URMnXJV+RL1pBNg+Ke7Ue1Nc brC1inXfHDqrHlebMR1YLNIKY4ZLUz== ID Date Data Source [id number] 05/30/2021 02:03:00 PM [facility] LaboratoryName: LUIS LEAHYMRN: [id number] Number: [id number] Date: 05/30/2021 12:59Received Date: 05/30/2021 14:03Physician(s): Isabel CRAIG,Isabel AGUILERA,LUISpecimecristino(s) ReceivedA: Semen Analysis, BasicProcedure PerformedSemen AnalysisVOLUME, MOTILITY, COUNT AND MORPHOLOGYEjaculate Volume: 0.5 (> 1.5mL)Total Sperm Motility: 0 (> or = 40%)Progressive Sperm Motility: 0 (> or = 32%)Sperm Conc./mL: 0 (> or = 15 million/mL)Total Sperm Count: 0 (> or = 39 million)Sperm Morphology: x (> or = 4% Normal forms) GROSS AND CELLULAR OBSERVATIONSSample Viscosity: 0Sperm Agglutination : 00 = none; 1 = slight; 2 = moderate; 3 = severeColor: ClearpH: 8.7 (normal 7.2 - 8.5)Amorphous Cells: 0Neutrophils: 0Cellular Parameters: 0 = 0-5; 1 = 6-10; 2 = 10-15; 3 = >15 cells/hpfSemen analysis reference values are based on the WHO 5th edition (2010)which defines normal as 5th percentile of 1,941 men whose partnersconceived within 12 months.SAMPLE INFORMATION:Abstinence: 5 days. Initial evaluation 20 min. post collection.Liquefaction: Normal. Collection Site: Lab.OVERALL SEMEN EVALUATION:There were no sperm seen in the ejaculate, and the ejaculate volume wasbelow reference value.Results-CommentsAzoospermia Procedure Electronically Signed By: Alberto Jackson, Ph.D., HCLD 05/30/2021 14:51cak/05/30/2021 Alberto Jackson, Ph.D., HCLD Name Value Range Interpretation Code Description Data Marifer rce(s) Supporting Document(s) ID Date Data Source [id number] 05/06/2021 11:04:00 AM EDT [facility] 1 OrderSheet [facility] Emergency Department [address] [place] [address] Phone #: ext- [phone] 05/06/2021 11:02 Patient: MARVIN LEAHY Sex: M : 1990 Age: 31yWEIGHT:90.7 kg (S) HEIGHT:68 inches (S) BMI:30.4ALLERGIES: None, SeafoodCHIEF COMPLAINT: abdominal pain, nausea, vomiting, diarrheaDIAGNOSIS: Abdominal painLAB ORDERSOrder Description Priority Entered Acknowledged InitialedCBC w Diff STAT 11:40 05/06/2021 11:53 Dior DUNCAN;CMP STAT 11:40 05/06/2021 11:53 Dior DUNCAN;CPK STAT 11:40 05/06/2021 11:53 Dior DUNCAN;Lactic Acid STAT 11:40 05/06/2021 11:53 Dior Arvizu RN PA;Lipase STAT 11:40 05/06/2021 11:53 Dior Arvizu RN PA;Urinalysis (Clean STAT 11:40 05/06/2021 Cancelled: Verbal per Physician 13:36Catch) Larry Arvizu RN PA;Urine Drug Screen STAT 11:40 05/06/2021 Cancelled: Verbal per Ph ysician 13:36 Larry Arvizu RN PA;DIAGNOSTIC STUDY ORDERSOrder Description Priority Entered Acknowledged InitialedMEDICATION/IV/DRIP/FLUID ORDERSOrder Description Priority Entered Acknowledged InitialedIV NS : Bolus 1000 11:40 05/06/2021 11:53 TeresaL, then 1000 Larry Arvizu RNmL/hr (x2) PA;Zofran IVP 8 mg 11:40 05/06/2021 12:01 Dior 2 OrderSheet [facility] Emergency Department [address] [place] [address] Phone #: ext- [phone] 05/06/2021 11:02 Patient: MARVIN LEAHY Sex: M : 1990 Age: 31y Larry Arvizu RN PA;Ofirmev IV 1000 mg 11:40 05/06/2021 12:02 Dior(NOW x1, Infuse Larry Arvizu RNover 15 minutes) PA;Ativan IVP 1 mg 12:49 05/06/2021 Cancelled: Physician Order 12:51 Larry(HIGH ALERT Larry Moreno PAMEDICATION) PA;GENERAL ORDERSOrder Description Priority Entered Acknowledged Initialed[Electronically signed by Dior Arvizu RN (13:39 05/06/2021)][Electronically signed by Larry Moreno (22:28 05/06/2021)][Electronically locked by Dior Arvizu RN (13:39 05/06/2021)] Name Value Range Interpretation Code Description Data Marifer rce(s) Supporting Document(s) ID Date Data Source [id number] 05/06/2021 11:04:00 AM EDT [facility] 1 Medication Reconciliation Report [facility] Emergency Department [address] [place] [address] Phone #: ext- [phone] 05/06/2021 11:02 Patient: MARVIN LEAHY Sex: M : 1990 Age: 31yWeight: 90.7 kgHeight/Length: 68 in.BMI: 30.4ALLERGIES: None, SeafoodThe patient's Home Medications are listed below:THE FOLLOWING MEDICATIONS NEED TO BE RECONCILED: allergy medicine daily Eliquis Oral (2.5 mg), 2x a day Escitalopram Oxalate Oral (10 mg), 2x a day Ivermectin Oral (3 mg) 3 tabs, every 6 months Pregnyl Intramuscular (72093 unit), 3x a week traZODone HCl Oral (50 mg), daily Xolair Subcutaneous (150 mg) 300mg, 3x a weekThe source(s) of the original Home Medication information:patientThe following Medications were given to the patient in the Emergency Department:IV NS IV Fluids bolus 1000 mL over 1 hour(s), then 1000 mL/hr, administered: 11:48 05/06/2021Zofran [IVP] IVP 8 mg, administered: 11:56 05/06/2021Ofirmev IV Drip IV bolus 0, then 1000 mg, administered: 11:58 05/06/2021IV NS IV Fluids bolus 1000 mL over 1 hour(s), then 1000 mL/hr, administered: 12:49 05/06/2021The following Medications were prescribed to the patient:None. 2 Medication Reconciliation Report [facility] Emergency Department [address] [place] [address] Phone #: ext- [phone] 05/06/2021 11:02 Patient: MARVIN LEAHY Sex: M : 1990 Age: 31y Name Value Range Interpretation Code Description Data Marifer rce(s) Supporting Document(s) ID Date Data Source [id number] 05/06/2021 11:04:00 AM EDT [facility] 1 Medication Administration Record [facility] Emergency Department [address] [place] [address] Phone #: ext- [phone] 05/06/2021 11:02 Patient: MARVIN LEAHY Sex: M : 1990 Age: 31yWeight: 90.7 kgHeight/Length: 68 inBMI: 30.4ALLERGIES: None, Seafood Date/Time Medication Administered Medication OrderedStart IV NS IV NS : Bolus 1000 mL, then 517663:48 05/06/2021 Dose: IV Fluids mL/hr (x2)Dior Arvizu RN Rate: 1000 mL/hr over 1 hour(s)---- Bolus: 1000 mL over 1 hour(s)Stop Dispensed: 1000 mL bag12:49 05/06/2021 Site: #1 right ALLEN Jacometart IV NS IV NS : Bolus 1000 mL, then 961443:49 05/06/2021 Dose: IV Fluids mL/hr (x2)Dior Arvizu RN Rate: 1000 mL/hr over 1 hour(s)---- Bolus: 1000 mL over 1 hour(s)Stop Dispensed: 1000 mL bag13:33 05/06/2021 Site: #1 right handDoeryn PATSY ArvizuGiven ZOFRAN [IVP] (ONDANSETRON HCL) Zofran IVP 8 mg11:56 05/06/2021 Dose: 8 mg IVPDsohan Arvizu RN Site: #1 right handStart Ofirmev IV * Ofirmev IV 1000 mg (NOW x1,11:58 05/06/2021 Dose: 1000 mg * Drip IV Infuse over 15 minutes)Dior rAvizu RN----Stop12:13 05/06/2021sohan Arvizu RN Name Value Range Interpretation Code Description Data Marifer rce(s) Supporting Document(s) ID Date Data Source [id number] 05/06/2021 11:04:00 AM EDT [facility] 1 General Instructions [facility] Emergency Department [address] [place] [address] Phone #: ext- [phone] 05/06/2021 11:02 Patient: MARVIN LEAHY Sex: M : 1990 Age: 31yChronic generalized abdominal pain of undetermined cause.INSTRUCTIONSDo not work today.Drink plenty of fluids.Warnings: Further evaluation is necessary. It is very important to follow up with a healthcare provider.GENERAL WARNINGS: Return or contact your physician immediately if your condition worsens orchanges unexpectedly, if not improving as expected, or if other problems arise. SPECIFICALLY, return ifthere is no improvement in the pain in the abdomen.Follow-up:Follow up with your doctor tomorrow. Reason for referral: evaluation and treatment. Summary of careprovided to patient. ADDITIONAL INFORMATIONUnknown Causes of Abdominal Pain (Male)Based on your visit today, the exact cause of your abdominal pain is not clear. Your exam and testsdon't suggest a dangerous cause at this time. However, the signs of a serious problem may takemore time to appear. Although your evaluation was reassuring today, sometimes early in the courseof many conditions, exam and lab tests can appear normal. Therefore, it is important for you to watchfor any new symptoms or worsening of your condition.It may not be obvious what caused your symptoms. Pay attention to things that do seem to makeyour symptoms worse or better and discuss this with your doctor when you follow up.The evaluation of abdominal pain in the emergency department may only require an exam by thedoctor or it may include blood, urine or imaging studies, depending on many factors. Sometimesexams and tests can identify a cause but in many cases, a clear cause is not found. Further testing atfollow up visits may help to suggest a clear diagnosis.Home care Rest as much as you can until your next exam. 2 General Instructions [facility] Emergency Department [address] [place] [address] Phone #: ext- [phone] 05/06/2021 11:02 Patient: MARVIN LEAHY Sex: M : 1990 Age: 31y Try to avoid any medicines (unless otherwise directed by your doctor), foods, activities, or other factors that may have contributed to your symptoms. Try to eat foods that you know that you have tolerated well in the past. Certain diets may be recommended for some conditions that cause abdominal pain. However, since the cause of your symptoms may not be clear, discuss your diet more with your healthcare provider or specialist for further recommendations. If you have diarrhea, it may help to avoid dairy (lactose) for the time being. A low fat, low fiber diet can also help. Eating several small meals per day as opposed to 2 or 3 larger meals may help. Avoid dehydration. Make sure to drink plenty of water. Other options include broth, soup, gelatin, sports drinks, or other clear liquids. Watch closely for anything that may make your symptoms worse or better. Pay close attention to symptoms below that may mean your condition is getting worse.Follow-up careFollow up with your healthcare provider if your symptoms are not improving, or as advised. In somecases, you may need more testing.When to seek medical adviceCall your healthcare provider right away if any of these occur: Pain is becoming worse You are unable to take your medicines or can't keep water down due to excessive vomiting Swelling of the abdomen Fever of 100.4F (38C) or higher, or as directed by your healthcare provider Blood in vomit or bowel movements (dark red or black color) Jaundice (yellow color of eyes and skin) New onset of weakness, dizziness or fainting New onset of chest, arm, back, neck or jaw pain [phone] [employer] [place] [address]. All rights reserved. This information is not intended as asubstitute for professional medical care. Always follow your healthcare professional's instructions. 3 General Instructions [facility] Emergency Department [address] [place] [address] Phone #: ext- [phone] 05/06/2021 11:02 Patient: MARVIN LEAHY Sex: M : 1990 Age: 31yYou have been given the following additional information:Unknown Causes of Abdominal Pain (Male)Do not work today.(Electronically signed by PERLA Cisse 05/06/2021 22:28) Name Value Range Interpretation Code Description Data Marifer rce(s) Supporting Document(s) ID Date Data Source [id number] 05/06/2021 11:04:00 AM EDT [facility] 1 Clinical Report - Nurses [facility] Emergency Department [address] [place] [address] Phone #: ext- [phone] 05/06/2021 11:02 Patient: MARVIN LEAHY Sex: M : 1990 Age: 31yTRIAGEArrived by private vehicle. Historian: patient. Accompanied by co-worker.Triage time: 11:12 05/06/2021. Acuity: LEVEL 3.Chief Complaint: ABDOMINAL PAIN, NAUSEA and VOMITING.Alert. No acute distress.Onset. (2 days ago). ( Pt was seen in this facility on Thursday for the same issues. He was prescribedZofran which he states works for the 4 hrs but then he vomits again. He then stated "I've been drinkingprotein drinks and I keep vomiting" Pt instructed not to drink protein drinks.). He has had nausea,vomiting, diarrhea and abdominal pain.Treatment PROGRAM SUPPORT SPECIALIST:(Zofran 0400).SEPSIS SCREEN: SIRS SCREEN NEGATIVE. SEPSIS SCREEN NEGATIVE. No suspected or confirmedsigns of infection present. --11:32 05/06/21 Kalie Haynes R.N.11:05/06/21. BP: 133/78. MAP: 96. HR: 70. RR: 18. O2 saturation: 99% on room air. Temp: 98.5 F(oral). Pain level now: 04/18. --11:32 05/06/21 Kalie Haynes R.N.Weight: 90.7 kg stated. Height/Length: 68 inches Per Patient. BMI: 30.4. --11:05/06/21 Kalie Haynes R.N.Medicationsallergy medicine daily. Eliquis Oral (Tablet 2.5 mg), 2x a day. Escitalopram Oxalate Oral (Tablet 10 mg), 2x a day. Ivermectin Oral (Tablet 3 mg) 3 tabs, every 6 months. --11:32 05/06/21 Kalie Haynes R.N. Pregnyl Intramuscular (Solution Reconstituted 47855 unit), 3x a week. traZODone HCl Oral (Tablet 50 mg), daily. Xolair Subcutaneous (Solution Reconstituted 150 mg) 300mg, 3x a week. --11:32 05/06/21 Kalie Haynes R.N.AllergiesNone.Seafood. --11:05/06/21 Kalie Haynes R.N.PROBLEMS:Dehydration. 2 Clinical Report - Nurses [facility] Emergency Department [address] [place] [address] Phone #: ext- [phone] 05/06/2021 11:02 Patient: MARVIN LEAHY Sex: M : 1990 Age: 31yDVT - Deep Venous Thrombosis.Testosterone deficiency.Ureterolithiasis.Vomiting.Urinary Calculi.Sleep Apnea: (New diagnosis, Seen Thursday in [place] for CPAP treatment).Nephrolithiasis.Renal Colic. --11:32 05/06/21 Kalie Haynes R.N.Medication/allergy information source: the patient. --11:32 05/06/21 Kalie Haynes R.N.ADDITIONAL SURGERIES:Ureteral Stent.Uroscopy. --11:32 05/06/21 Kalie Haynes R.N.HistoryPAST MEDICAL HX: Immunizations: up-to-date.SOCIAL HX: Never smoker. Occasional alcohol use. No drug use. He was offered HIV testing butdeclined. Patient education was provided. He was offered hepatitis C testing but declined. Patienteducation was provided. He has not traveled outside the [place]Infectious disease exposure: No infectious disease exposure. (Pt recently returned from [facility],). Patient is not a known carrier of tuberculosis, hepatitis, HIV, MRSA or VRE. Patient is not a knowncarrier of CRE.SELF HARM ASSESSMENT: Self harm assessment was performed. The patient answered "no" to thequestion(s) "Do you have thoughts of harming or killing yourself?", "Do you have a plan for harming orkilling yourself?" and "Have you recently had thoughts about harming or killing others?".ABUSE ASSESSMENT: Abuse assessment. The patient had positive responses to the question(s) "Do youfeel safe in your home?" (yes). Abuse denied. No suspicion of abuse. No report of abuse.NUTRITIONAL RISK ASSESSMENT: The nutritional risk assessment revealed no deficiencies.FUNCTIONAL ASSESSMENT: Functional assessment: no impairments noted.LEARNING NEEDS ASSESSMENT: The learning needs assessment revealed no barriers.FALL RISK ASSESSMENT: Fall risk assessment completed. No risk factors identified.SKIN INTEGRITY ASSESSMENT: Skin integrity risk assessment completed. No skin integrity riskidentified. --11:32 05/06/21 Kalie Haynes R.N.Int erventionsIdentification band on patient. --11:32 05/06/21 Kalie Haynes R.N. 3 Clinical Report - Nurses [facility] Emergency Department [address] [place] [address] Phone #: ext- [phone] 05/06/2021 11:02 Patient: MARVIN LEAHY Sex: M : 1990 Age: 31yPHYSICAL [id number] 05/06/21. Ambulatory to room.GENERAL / NEURO / PSYCH: Alert. Oriented X 4. Appears in no acute distress.HEENT: Mucous membranes are pink.RESPIRATORY: Respirations not labored. Breath sounds within normal limits.GI / : The patient has had nausea. Abdomen soft. Abdominal tenderness in the epigastric area.Bowel sounds within normal limits.SKIN: Skin is warm and dry. --11:36 05/06/21 Dior Arvizu RN.NURSING PROGRESS NOTES11:05/06/21. Patient gowned. Head of bed elevated. Two patient identifiers checked. Call lightplaced in reach. Bed placed in lowest position. Brakes of bed on. Patient ready for evaluation- PAnotified. --11:37 05/06/21 Dior Arvizu RN 11:48 05/06/2021 Site #1 started via IV in the right hand with an 20g angiocath, with aseptic technique and good blood return; one attempt. Saline lock flushed with 10 mL saline. --11:53 05/06/21 Dior Arvizu RN 11:48 05/06/2021 Started bag #1 1000 mL IV Fluids IV NS; bolus of 1000 mL over 1 hour(s) then at 1000 mL/hr over 1 hour(s) via site #1 via IV pump. Allergies verified and confirmed 5 rights. IV patency established. IV site checked: no pain, redness, or swelling. IV flushed thoroughly pre- and post- medication administration. Information reviewed with patient including reason for taking this medication, signs of allergic reaction and precautions. Verbalizes understanding. Completed per protocol. --11:53 05/06/21 Dior Arvizu RN 11:56 05/06/2021 Zofran (Ondansetron HCl) IVP 8 mg given over 2 minute(s) via site #1. Allergies verified and confirmed 5 rights. IV patency established. IV site checked: no pain, redness, or swelling. IV flushed thoroughly pre- and post-medication administration. IVP given by RN. Information reviewed with patient including reason for taking this medication, signs of allergic reaction and precautions. Verbalizes understanding. --12:01 05/06/21 Dior Arvizu RN 11:58 05/06/2021 Ofirmev IV * Drip IV 1000 mg Now x 1 Infuse over 15 minutes --12:02 05/06/21 Dior Arvizu RN 12:11 05/06/2021 Zofran IVP Response: no adverse reaction pain is improving. Symptoms have improved the patient feels better. --12:26 05/06/21 Dior Arvizu RN 12:13 05/06/2021 Ofirm ev IV Drip IV Discontinued: completed. Total amount infused: 100 mL. IV patency established. IV site checked: no pain, redness, or swelling. IV flushed thoroughly. --12:22 05/06/21 Dior rAvizu RN 12:20 05/06/21. Reassessment after medication administered. No adverse reaction. Pain gone now. Reassessment after fluids administered. He reports no complaints, he is resting quietly and sleeping and 4 Clinical Report - Nurses [facility] Emergency Department [address] [place] [address] Phone #: ext- [phone] 05/06/2021 11:02 Patient: MARVIN LEAHY Sex: M : 1990 Age: 31y he has had no adverse reaction. --12:27 05/06/21 Dior Arvizu RN 12:49 05/06/2021 Started bag #2 1000 mL IV Fluids IV NS; bolus of 1000 mL over 1 hour(s) then at 1000 mL/hr over 1 hour(s) via site #1 via IV pump. Allergies verified and confirmed 5 rights. IV patency established. IV site checked: no pain, redness, or swelling. IV flushed thoroughly pre- and post-medication administration. Information reviewed with patient including reason for taking this medication, signs of allergic reaction and precautions. Verbalizes understanding. Completed per protocol. --12:49 05/06/21 Dior Arvizu RN 12:49 05/06/2021 IV Fluids IV NS via IV site #1 Discontinued: bag #1 completed. Total amount infused: 1000 mL. IV patency established. IV site checked: no pain, redness, or swelling. IV flushed thoroughly. --12:49 05/06/21 Dior Arvizu RN 13:33 05/06/2021 IV Fluids IV NS via IV site #1 Discontinued: bag #2 completed. Total amount infused: 1000 mL. IV patency established. IV site checked: no pain, redness, or swelling. IV flushed thoroughly. --13:36 05/06/21 Dior corona RN 13:34 05/06/2021 Site #1 removed upon discharge. Catheter intact. Manual pressure and bandage applied. --13:36 05/06/21 Dior Arvizu RN.DISPOSITION / DISCHARGE 13:37 05/06/21. Condition at departure: improved and stable. No learning barriers present. Discharge instructions provided and reviewed with the patient. Work note given (off today). Patient verbalized understanding. Written instructions provided in [place]. The patient was discharged home and accompanied by store clerk. He left ambulatory and via private vehicle. Lot Boss driving. --13:38 05/06/21 Dior Arvizu RN 13:36 05/06/21. BP: 126/71. MAP: 89. HR: 76. RR: 14. O2 saturation: 98%. Temp: 98.5 F. Pain level now: 0/10. --13:38 05/06/21 Dior Arvizu RN.Locked/Released at 05/06/2021 13:39 by Dior Arvizu RN Name Value Range Interpretation Code Description Data Marifer rce(s) Supporting Document(s) ID Date Data Source [id number] 05/06/2021 11:04:00 AM EDT [facility] 1 Clinical Report - Physicians/Mid Levels [facility] Emergency Department [address] [place] [address] Phone #: ext- [phone] 05/06/2021 11:02 Patient: MARVIN LEAHY Sex: M : 1990 Age: 31y Time Seen: 11:33 05/06/2021. Arrived- By private vehicle.HISTORY OF PRESENT ILLNESS Chief Complaint: ABDOMINAL PAIN and VOMITING, DIARRHEA and NAUSEA. This started 2 days ago; Pt was seen in this facility on Thursday for the same issues. He was prescribed Zofran which he states works for the 4 hrs but then he vomits again. He then stated "I've been drinking protein drinks and I keep vomiting" Pt instructed not to drink protein drinks.). He has had nausea, vomiting, diarrhea and abdominal pain. and is still present. It was abrupt in onset and has been intermittent. It is described as "pain". No radiation. It is described as generalized in location. At its maximum, severity described as moderate. When seen in the E.D., severity described as moderate. The patient has had nausea, vomiting and diarrhea. Similar symptoms previously. Patient has had similar symptoms several times. Recent medical care: The patient was seen recently at this facility in the emergency department.REVIEW OF SYSTEMSNo constipation, black stools, hematemesis, difficulty with urination or pain with urination. No urinaryfrequency, bloody stools, fever, headache or sore throat. No blurred vision, chest pain, difficulty breathing,cough or joint piero n. No skin rash, chills or back pain. The patient has not had weight loss.PAST HISTORYProblems:Dehydration.DVT - Deep Venous Thrombosis.Testosterone deficiency.Ureterolithiasis.Vomiting.Urinary Calculi.Sleep Apnea. (New diagnosis, Seen Thursday in [place] for CPAP treatment)Nephrolithiasis.Renal Colic. Additional Surgeries: Ureteral Stent. Uroscopy. Medications: Pregnyl Intramuscular (Solution Reconstituted 62673 unit), 3x a week. traZODone HCl Oral (Tablet 50 mg), daily. 2 Clinical Report - Physicians/Mid Levels [facility] Emergency Department [address] [place] [address] Phone #: ext- [phone] 05/06/2021 11:02 Patient: MARVIN LEAHY Sex: M : 1990 Age: 31y Xolair Subcutaneous (Solution Reconstituted 150 mg) 300mg, 3x a week. allergy medicine daily. Eliquis Oral (Tablet 2.5 mg), 2x a day. Escitalopram Oxalate Oral (Tablet 10 mg), 2x a day. Ivermectin Oral (Tablet 3 mg) 3 tabs, every 6 months. Allergies: None. Seafood.SOCIAL HISTORYNever smoker. Occasional alcohol use. No drug use.PHYSICAL EXAMVital Signs: 05/06/2021 11:21 BP: 133/78. MAP: 96. HR: 70. RR: 18. O2 saturation: 99% on room air.Temp: 98.5 F. Pain level now: 6/10. Have been reviewed as normal. Oxygen saturation normal.Appearance: Alert. Oriented X3. No acute distress.Eyes: Pupils equal, round and reactive to light. Eyes normal inspection.ENT: Ears normal. Nose normal. Pharynx normal.Neck: Normal inspection. Neck supple.CVS: Normal heart rate and rhythm. Heart sounds normal.Respiratory: No respiratory distress. Breath sounds normal.Abdomen: Soft. Mild tenderness diffusely. Bowel sounds normal. No organomegaly. No mass.Back: Normal inspection.Skin: Skin warm and dry. Normal skin color. No rash. Normal skin turgor.Extremities: Extremities exhibit normal ROM. No lower extremity edema.Neuro: Oriented X 3.LABS, X-RAYS, AND EKGLaboratory Tests: Laboratory tests have been ordered, with results reviewed and considered in themedical decision making process. CBC w Diff: (DERRICK: 05/06/2021 11:55) ( MsgRcvd 05/06/2021 12:07) Final results Test Result Flag Units (Reference) CBC W/AUTOMATED DIFF COMPLETE BLOOD COUNT WBC 4.8 10/uL (4.2 - 11.0) RBC 4.28 L 10/uL (4.50 - 6.30) HEMOGLOBIN 12.6 L g/dL (14.0 - 16.0) HEMATOCRIT 38.2 L % (41.0 - 51.0) MCV 89.3 fL (80.0 - 94.0) MCH 29.4 pg (27.0 - 34.0) MCHC 33.0 g/dL (31.0 - 36.0) RDW 12.7 % (11.5 - 14.8) PLATELETS 177 10/uL (150 - 450) MPV 10.4 fL (7.4 - 10.4) NEUT 54.9 % (37.0 - 80.0) LYMPH 31.9 % (25.0 - 40.0) MONO 10.9 H % (3.0 - 8.0) EOS 1.9 % (0.0 - 7.0) 3 Clinical Report - Physicians/Mid Levels [facility] Emergency Department [address] [place] [address] Phone #: ext- [phone] 05/06/2021 11:02 [id number] Sex[facility] M : 1990 Age: 31y BASO 0.2 % (0.0 - 2.0) %IG 0.2 H % (0.0 - 0.0) %NRBC 0.0 % (0.0 - 0.0) #NEUT 2.62 10/uL (2.00 - 6.90) #LYMPH 1.52 10/uL (0.60 - 3.40) #MONO 0.52 10/uL (0.00 - 0.90) #EOS 0.09 10/uL (0.00 - 0.70) #BASO 0.01 10/uL (0.00 - 0.20) #IG 0.01 10/uL (0.00 - 0.10) #NRBC 0.00 10/uL (0.00 - 0.00) MANUAL DIFF NOT INDICATED RBC MORPH NOT INDICATEDCMP: (DERRICK: 05/06/2021 11:55) ( MsgRcvd 05/06/2021 12:59) Final results Test Result Flag Units (Reference) COMPREHENSIVE METABOLIC PANEL COMPREHENSIVE METABOLIC PANEL SODIUM 139 mEq/L (134 - 153) POTASSIUM 3.5 L mEq/L (3.6 - 5.0) CHLORIDE 105 mEq/L (98 - 107) CO2 24 MEQ/L (22 - 30) GLUCOSE 95 MG/DL (70 - 99) BUN 11 MG/DL (7 - 21) CREATININE 0.8 MG/DL (0.7 - 1.5) BUN/CREAT 14 (8 - 27) TOTAL PROTEIN 7.1 G/DL (6.3 - 8.2) ALBUMIN 4.3 G/DL (3.9 - 5.0) GLOBULIN 2.8 GM/DL (2.4 - 3.2) A/G RATIO 1.5 (0.8 - 2.0) CALCIUM 9.6 MG/DL (8.4 - 10.2) TOTAL BILI <0.7 MG/DL (0.2 - 1.3) ALKALINE PHOS 64 U/L (38 - 126) SGOT/AST 21 U/L (5 - 40) SGPT/ALT 20 U/L (7 - 56) ANION GAP 10.0 mmol/L (8.0 - 16.0) AGE 31 yrs NON- AA GFR >60 mL/min AFR AMER GFR >60 mL/min Male GFR Interprentation 20-49 yrs >60 mL/min Jnyuko15-08 yrs >56 mL/min Normal 60- 69 yrs >49 mL/min Normal 70-79yrs>42 mL/min Normal 80 and above >35 mL/min Normal Female GFRInterpretation 20-39 yrs >60 mL/min Normal 40-49 yrs >58 mL/minNormal 50-59 yrs >51 mL/min Normal 60-69 yrs >45 mL/min Vaiwoe82-58 yrs >39 mL/min Normal 80 and above >32 mL/min NormalCPK: (DERRICK: 05/06/2021 11:55) ( [facility] 05/06/2021 12:59) Final results Test Result Flag Units (Reference) CPK 241 H U/L (30 - 170)Lactic Acid: (DERRICK: 05/06/2021 11:55) ( [facility] 05/06/2021 12:22) Final results Te st Result Flag Units (Reference) LACTIC ACID 1.6 MMOL/L (0.2 - 2.2)Lipase: (DERRICK: 05/06/2021 11:55) ( [facility] 05/06/2021 12:58) Final results Test Result Flag Units (Reference) LIPASE 26 U/L (13 - 60) 4 Clinical Report - Physicians/Mid Levels [facility] Emergency Department [address] [place] [address] Phone #: ext- [phone] 05/06/2021 11:02 Patient: MARVIN LEAHY Sex: M : 1990 Age: 31y.PROGRESS AND PROCEDURESCourse of Care: 13:May 06 2021. Evaluation after observation and results of tests back. (Discussedlabs, need to hydrate and follow up with PCP.). Patient counseled in person regarding the patient's stable condition, test results, diagnosis and need for follow-up. Patient agrees with plan of care. 13:May 06 2021. Disposition: Discharged home in good and improved condition (:May 06 2021).CLINICAL IMPRESSION Chronic generalized abdominal pain of undetermined cause.INSTRUCTIONS Do not work today. Drink plenty of fluids. Warnings: Further evaluation is necessary. It is very important to follow up with a healthcare provider. GENERAL WARNINGS: Return or contact your physician immediately if your condition worsens or changes unexpectedly, if not improving as expected, or if other problems arise. SPECIFICALLY, return if there is no improvement in the pain in the abdomen. Follow-up: Follow up with your doctor tomorrow. Reason for referral: evaluation and treatment. Summary of care provided to patient.(Electronically signed by PERLA Cisse 05/06/2021 22:28) Name Value Range Interpretation Code Description Data Marifer rce(s) Supporting Document(s) ID Date Data Source [id number] 05/06/2021 12:59:00 PM EDT [facility] Name Value Range Interpretation Code Description Data Marifer rce(s) Supporting Document(s) Creatine kinase [Enzymatic activity/volume] in Serum or Plasma 2 41 U/L 30 - 170 H [facility] ID Date Data Source [id number] 05/06/2021 12:59:00 PM EDT [facility] Name Value Range Interpretation Code Description Data Marifer rce(s) Supporting Document(s) COMPREHENSIVE METABOLIC PANEL [facility] COMPREHENSIVE METABOLIC PANEL Sodium [Moles/volume] in Serum or Plasma 139 mEq/L 134 - 153 [facility] Potassium [Moles/volume] in Serum or Plasma 3.5 mEq/L 3.6 - 5.0 L [facility] Chloride [Moles/volume] in Serum or Plasma 105 mEq/L 98 - 107 [facility] Carbon dioxide, total [Moles/volume] in Serum or Plasma 24 MEQ/L 22 - 30 [facility] Glucose [Mass/volume] in Serum or Plasma 95 MG/DL 70 - 99 [facility] BUN 11 MG/DL 7 - 21 [facility] Creatinine [Mass/volume] in Serum or Plasma 0.8 MG/DL 0.7 - 1.5 [facility] BUN/CREAT 14 8 - 27 [facility] al Protein [Mass/volume] in Serum or Plasma 7.1 G/DL 6.3 - 8.2 [facility] Albumin [Mass/volume] in Serum or Plasma 4.3 G/DL 3.9 - 5.0 [facility] Globulin [Mass/volume] in Serum by calculation 2.8 GM/DL 2.4 - 3.2 [facility] A/G RATIO 1.5 0.8 - 2.0 [facility] Calcium [Mass/volume] in Serum or Plasma 9.6 MG/DL 8.4 - 10.2 [facility] Bilirubin.total [Mass/volume] in Serum or Plasma <0.7 MG/DL 0.2 - 1.3 [facility] Alkaline phosphatase [Enzymatic activity/volume] in Serum or Plasma 64 U/L 38 - 126 [facility] Aspartate aminotransferase [Enzymatic activity/volume] in Serum or Plasma 21 U/L 5 - 40 [facility] Alanine aminotransferase [Enzymatic activity/volume] in Seru m or Plasma 20 U/L 7 - 56 [facility] Anion gap 3 in Serum or Plasma 10.0 mmol/L 8.0 - 16.0 [facility] AGE 31 yrs [facility] al NON-AA GFR >60 mL/min [facility] ital AFR AMER GFR >60 mL/min [facility] Ho spital Male GFR In [...] >32 mL/min Normal ID Date Data Source [id number] 05/06/2021 12:58:00 PM EDT [facility] Name Value Range Interpretation Code Description Data Marifer rce(s) Supporting Document(s) Lipase [Enzymatic activity/volume] in Serum or Plasma 26 U/L 13 - 60 [facility] ID Date Data Source [id number] 05/06/2021 12:22:00 PM EDT [facility] Name Value Range Interpretation Code Description Data Marifer rce(s) Supporting Document(s) Lactate [Moles/volume] in Serum or Plasma 1.6 MMOL/L 0.2 - 2.2 [facility] ID Date Data Source [id number] 05/06/2021 12:06:00 PM EDT [facility] Name Value Range Interpretation Code Description Data Marifer rce(s) Supporting Document(s) CBC W/AUTOMATED DIFF [facility] COMPLETE BLOOD COUNT Leukocytes [#/volume] in Blood by Automated count 4.8 10^3/uL 4.2 - 1 1.0 [facility] Erythrocytes [#/volume] in Blood by Automated count 4.28 10^6/uL 4. 50 - 6.30 L [facility] Hemoglobin [Mass/volume] in Blood 12.6 g/dL 14.0 - 16.0 L [facility] Hematocrit [Volume Fraction] of Blood by Automated count 38.2 % 4 1.0 - 51.0 L [facility] Erythrocyte mean corpuscular volume [Entitic volume] by Auto mated count 89.3 fL 80.0 - 94.0 [facility] Erythrocyte mean corpuscular hemoglobin [Entitic mass] by Automated count 29.4 pg 27.0 - 34.0 [facility] Erythrocyte mean corpuscular hemoglobin concentration [Mass/volume] by Automated count 33.0 g/dL 31.0 - 36.0 [facility] Erythrocyte distribution width [Ratio] by Automated count 12.7 % 11.5 - 14.8 [facility] Platelets [#/volume] in Blood by Automated count 177 10^3/uL 150 - 45 0 [facility] Platelet mean volume [Entitic volume] in Blood by Automated count 10.4 fL 7.4 - 10.4 [facility] Neutrophils/100 leukocytes in Blood by Automated count 54.9 % 37. 0 - 80.0 [facility] Lymphocytes/100 leukocytes in Blood by Manual count 31.9 % 25.0 - 40.0 [facility] Monocytes/100 leukocytes in Blood by Automated count 10.9 % 3.0 - 8.0 H [facility] Eosinophils/100 leukocytes in Blood by Automated count 1.9 % 0.0 - 7.0 [facility] Basophils/100 leukocytes in Blood by Automated count 0.2 % 0.0 - 2.0 [facility] %IG 0.2 % 0.0 - 0.0 H [facility] al %NRBC 0.0 % 0.0 - 0.0 [facility] al Neutrophils [#/volume] in Blood by Automated count 2.62 10^3/uL 2.00 - 6.90 [facility] Lymphocytes [#/volume] in Blood by Automated count 1.52 10^3/uL 0.60 - 3.40 [facility] Monocytes [#/volume] in Blood by Automated count 0.52 10^3/uL 0.00 - 0.90 [facility] Eosinophils [#/volume] in Blood by Automated count 0.09 10^3/uL 0.00 - 0.70 [facility] Basophils [#/volume] in Blood by Automated count 0.01 10^3/uL 0.00 - 0.20 [facility] #IG 0.01 10^3/uL 0.00 - 0.10 [facility] ospital #NRBC 0.00 10^3/uL 0.00 - 0.00 [facility] ospital MANUAL DIFF NOT INDICATED [facility] RBC MORPH NOT INDICATED [facility] spital ID Date Data Source [id number] 05/05/2021 03:26:00 AM EDT [facility] 1 OrderSheet [facility] Emergency Department [address] [place] [address] Phone #: ext- [phone] 05/05/2021 03:16 Patient: MARVIN LEAHY Sex: M : 1990 Age: 31yWEIGHT:90.7 kg (S)ALLERGIES: None, SeafoodCHIEF COMPLAINT: abdominal painDIAGNOSIS: Gastroenteritis, Vomiting, Diarrhea, O/E - dehydrated, HypokalemiaLAB ORDERSOrder Description Priority Entered Acknowledged InitialedCBC w Diff STAT 03:42 05/05/2021 Ack'd: 03:49 Bethany 04:37 Lulvia Gardner MD; Sandeep Holder RNCMP STAT 03:42 05/05/2021 Ack'd: 03:49 Bethany 04:37 Lluvia Gardner MD; Sandeep Holder RNLactic Acid STAT 03:42 05/05/2021 Ack'd: 03:49 Bethany 04:37 Lluvia Gardner MD; Sandeep Holder RNLipase STAT 03:42 05/05/2021 Ack'd: 03:49 Bethany 04:37 Lluvia Gardner MD; Sandeep Holder RNMagnesium STAT 03:42 05/05/2021 Ack'd: 03:49 Bethany 04:37 Lluvia Pabon MD; Sandeep Holder RNUrinalysis (Clean STAT 03:43 05/05/2021 Ack'd: 03:49 TinaCatch) Lluvia Lantigua MD; Sandeep Holder R.N.Culture, Stool STAT 03:43 05/05/2021 Ack'd: 03:49 Lluvia Ferguson MD; Sandeep Holder R.N.DIAGNOSTIC STUDY ORDERSOrder Description Priority Entered Acknowledged InitialedCT Abd PEL W/ IV STAT 03:43 05/05/2021 Ack'd: 03:49 Bethany 04:37 StevenContrast Only Lluvia Lantigua MD; Sandeep Holder RN(Oxygen?(No))(IV?(Yes)) NOTES: v/d Reason for Study: Abdominal Pain 2 OrderSheet [facility] Emergency Department [address] [place] [address] Phone #: ext- [phone] 05/05/2021 03:16 Patient: MARVIN LEAHY Sex: M : 1990 Age: 31yMEDICATION/IV/DRIP/FLUID ORDERSOrder Description Priority Entered Acknowledged InitialedIV NS 1000 mL 03:42 05/05/2021 03:49 Bethany Ocampo : Bolus 1000 Lluvia Lantigua MD; Glory R.NYangmL (X1)IV NS 1000 mL 03:43 05/05/2021 Ack'd: 04:02 Bethany 06:24 Bethanysarah HopkinsBolus : Bolus 1000 Lluvia Lantigua MD; Sandeep Holder R.N.mL (X1)Zofran IVP 8 mg 03:43 05/05/2021 Ack'd: 03:49 Bethany 03:56 Bethany Hopkins(NOW x1) Lluvia Lantigua MD; Sandeep Holder R.NYangMorphine IVP 4 mg 03:43 05/05/2021 Ack'd: 03:49 Bethany 04:02 Bethany Hopkins(NOW x1, HIGH Lluvia Lantigua MD; Sandeep Holder R.NYangALERTMEDICATION)Potassium Chloride 06:10 05/05/2021 Ack'd: 06:14 Bethany 06:19 Bethany SandeepLiquid PO 40 meq Lluvia Lantigua MD; Sandeep Holder R.N.(NOW x1)GENERAL ORDERSOrder Description Priority Entered Acknowledged Initialed[Electronically signed by Bethany Granados R.N. (06:05/05/2021)][Electronically signed by Lluvia Lantigua MD (06:35 05/05/2021)][Electronically locked by Bethany Granados R.N. (:05/05/2021)] Name Value Range Interpretation Code Description Data Marifer rce(s) Supporting Document(s) ID Date Data Source [id number] 05/05/2021 03:26:00 AM EDT [facility] 1 Medication Reconciliation Report [facility] Emergency Department [address] [place] [address] Phone #: ext- [phone] 05/05/2021 03:16 Patient: MARVIN LEAHY Sex: M : 1990 Age: 31yWeight: 90.7 kgHeight/Length: 68 in.BMI: 30.4ALLERGIES: None, SeafoodThe patient's Home Medications are listed below:CONTINUE TAKING THE FOLLOWING MEDICATIONS: allergy medicine daily Eliquis Oral (2.5 mg), 2x a day Escitalopram Oxalate Oral (10 mg), 2x a day Ivermectin Oral (3 mg) 3 tabs, every 6 months Pregnyl Intramuscular (22409 unit), 3x a week traZODone HCl Oral (50 mg), daily Xolair Subcutaneous (150 mg) 300mg, 3x a weekThe source(s) of the original Home Medication information:Not obtained.The following Medications were given to the patient in the Emergency Department:NS [IV] IV Fluids bolus 0, then 1000 mL/hr, administered: 03:49 05/05/2021Zofran [IVP] IVP 8 mg, administered: 03:56 05/05/2021Morphine [IVP] IVP 4 mg, administered: 04:02 05/05/2021OTASSIUM CHLORIDE LIQUID PO PO 40 meq, administered: 06:14 05/05/2021NS [IV] IV Fluids bolus 0, then 1000 mL/hr, administered: 05:15 05/05/2021 2 Medication Reconciliation Report [facility] Emergency Department [address] [place] [address] Phone #: ext- [phone] 05/05/2021 03:16 Patient: MARVIN LEAHY Sex: M : 1990 Age: 31yThe following Medications were prescribed to the patient:ond ansetron 4 mg disintegrating tablet Take 1 tablet three times a day for 3 days -- prn nausea/vomiting.Dispense 9 tablet. Refills: 0. Substitution permitted. Note to Pharmacy - Rx DISCOUNT CARD: $ 13.59.USE: BIN:[id number], PCN:[id number], Group:[id number], ID:[id number].Pharmacy - [facility] [phone] ; [place] [address]. . -- Lluvia Lantigua MD Name Value Range Interpretation Code Description Data Marifer rce(s) Supporting Document(s) ID Date Data Source [id number] 05/05/2021 03:26:00 AM EDT [facility] 1 Medication Administration Record [facility] Emergency Department [address] [place] [address] Phone #: ext- [phone] 05/05/2021 03:16 Patient: MARVIN LEAHY Sex: M : 1990 Age: 31yWeight: 90.7 kgHeight/Length: 68 inBMI: 30.4ALLERGIES: None, Seafood Date/Time Medication Administered Medication OrderedStart NS [IV] IV NS 1000 mL Bolus : Bolus [id number] 05/05/2021 Dose: IV Fluids mL (X1)Bethany Holder R.N. Rate: 1000 mL/hr---- Dispensed: 1000 mL bagStop Site: #1 right sigrbbt78:14 05/05/2021Bethany Holder R.N.Start NS [IV] IV NS 1000 mL Bolus : Bolus [id number] 05/05/2021 Dose: IV Fluids mL (X1)Bethany Holder R.N. Rate: 1000 mL/hr---- Dispensed: 1000 mL bagStop Site: #1 right :15 05/05/2021Bethany Holder R.N.Given ZOFRAN [IVP] (ONDANSETRON HCL) Zofran IVP 8 mg (NOW x1)03:56 05/05/2021 Dose: 8 mg IVPTina Sandeep Holder R.N. Site: #1 right forearmGiven MORPHINE [IVP] Morphine IVP 4 mg (NOW x1, HIGH04:02 05/05/2021 Dose: 4 mg IVP ALERT MEDICATION)Bethany Holder R.N. Site: #1 right forearmGiven POTASSIUM CHLORIDE LIQUID PO Potassium Chloride Liquid PO 4006:14 05/05/2021 Dose: 40 meq Oral Suspension PO meq (NOW x1)Bethany Holder R.N. Name Value Range Interpretation Code Description Data Marifer rce(s) Supporting Document(s) ID Date Data Source [id number] 05/05/2021 03:26:00 AM EDT [facility] 1 General Instructions [facility] Emergency Department [address] [place] [address] Phone #: ext- [phone] 05/05/2021 03:16 Patient: MARVIN LEAHY Sex: M : 1990 Age: 31yVomiting with nausea.DiarrheaMild dehydrationAcute gastroenteritis.HypokalemiaINSTRUCTIONSRest.Drink plenty of fluids.(Take the zofran for nausea. return if worse or any new symptoms. Eat a bland diet for the next 24hours.).Warnings: Further evaluation is necessary.GENERAL WARNINGS: Return or contact your physician immediately if your condition worsens orchanges unexpectedly, if not improving as expected, or if other problems arise.Your Current Medications: Your current home medications have been reviewed.CONTINUE TAKING THE FOLLOWING MEDICATIONS:allergy medicine daily*.Eliquis Oral : Tablet 2.5 mg, 2x a day.Escitalopram Oxalate Oral : Tablet 10 mg, 2x a day.Ivermectin Oral : Tablet 3 mg, 3 tabs every 6 months.Pregnyl Intramuscular : Solution Reconstituted 33356 unit, 3x a week.traZODone HCl Oral : Tablet 50 mg, daily.Xolair Subcutaneous : Solution Reconstituted 150 mg, 300mg 3x a week.Prescription Medications:ondansetron 4 mg disintegrating tablet Take 1 tablet three times a day for 3 days -- prn nausea/vomiting.Dispense 9 tablet. Refills: 0. Substitution permitted. Note to Pharmacy - Rx DISCOUNT CARD: $ 13.59.USE: BIN:[id number], PCN:[id number], Group:[id number], ID:[id number].Pharmacy - [facility] [phone] ; [place] [address]. .Follow-up:Follow up with your doctor Thursday even if well. Call for an appointment. Reason for referral: evaluation.Summary of care provided to patient via paper. 2 General Instructions [facility] Emergency Department [address] [place] [address] Phone #: ext- [phone] 05/05/2021 03:16 Patient: MARVIN LEAHY Sex: M : 1990 Age: 31yUnderstanding of the discharge instructions verbalized by patient. ADDITIONAL INFORMATIONVomiting (Adult)Vomiting is a common symptom that may be due to different causes. These include gastroenteritis("stomach flu"), food poisoning and gastritis. There are other more serious causes of vomiting whichmay be hard to diagnose early in the illness. Therefore, it is important to watch for the warning signslisted below.The main danger from repeated vomiting is dehydration. This is due to excess loss of water andminerals from the body. When this occurs, your body fluids must be replaced.Home care If symptoms are severe, rest at home for the next 24 hours. Because your symptoms may be from an infection, wash your hands often and well. If soap and water are not available, use alcohol-based ballistics teacher to keep from spreading the infection to others. Wash your hands for at least 20 seconds. Humming the happy birthday song twice while you wash is an easy way to make sure you've washed for 20 seconds. Wash your hands af ter using the toilet, before and after preparing food, before eating food, after changing a diaper, cleaning a wound, caring for a sick person, and blowing your nose, coughing, or sneezing. You should also wash your hands after caring for someone who is sick, touching pet food, or treats, and touching an animal, or animal waste. You may use acetaminophen or NSAID medicines like ibuprofen or naproxen to control fever, unless another medicine was prescribed. If you have chronic liver or kidney disease or ever had a stomach ulcer or gastrointestinal bleeding, talk with your doctor before using these medicines. Aspirin should never be used in anyone under 18 years of age who is ill with a fever. It may cause severe liver damage. Don't use NSAID medicines if you are already taking one for another condition (like arthritis) or are on aspirin (such as for heart disease, or after a stroke) Don't use tobacco and or drink alcohol, which may worsen your symptoms. If medicines for vomiting were prescribed, take as directed. Once vomiting stops, then follow these guidelines:During the first 12 to 24 hours follow the diet below: 3 General Instructions [facility] Emergency Department [address] [place] [address] Phone #: ext- [phone] 05/05/2021 03:16 Patient: MARVIN LEAHY Sex: M : 1990 Age: 31y Fruit juices. Apple, grape juice, clear fruit drinks, and electrolyte replacement drinks. Beverages. Soft drinks without caffeine; mineral water (plain or flavored), decaffeinated tea and coffee. Soups. Clear broth and bouillon Desserts. Plain gelatin, ice pops, and fruit juice bars. As you feel better, you may add 6 to 8 ounces of yogurt per day.During the next 24 hours you may add the following to the above: Hot cereal, plain toast, bread, rolls, crackers Plain noodles, rice, mashed potatoes, chicken noodle or rice soup Unsweetened canned fruit such as applesauce, bananas (avoid pineapple and citrus) Limit caffeine and chocolate. No spices or seasonings except salt.During the next 24 hour s:Gradually resume a normal diet, as you feel better and your symptoms lessen.Follow-up careFollow up with your healthcare provider, or as advised.When to seek medical adviceCall your healthcare provider right away if any of these occur: Constant right-sided lower belly pain or increasing general belly pain Continued vomiting (unable to keep liquids down) for 24 hours Vomiting blood or coffee grounds Swollen belly Frequent diarrhea (more than 5 times a day); blood (red or black color) or mucus in diarrhea Reduced urine output or extreme thirst Weakness, dizziness or fainting Unusually drowsy or confused Fever of 100.4F (38C) oral or higher, or as directed 4 General Instructions [facility] Emergency Department [address] [place] [address] Phone #: [phone]- [phone] 05/05/2021 03:16 Patient: MARVIN LEAHY Sex: M : 1990 Age: 31y Yellow color of the eyes or skin [employer]. [address] [place] [address]. All rights reserved. This information is not intended as asubstitute for professional medical care. Always follow your healthcare professional's instructions.Diarrhea with Uncertain Cause (Adult)Diarrhea is when stools are loose and watery. This can be caused by: Viral infections Bacterial infections Food poisoning Parasites Irritable bowel syndrome (IBS) Inflammatory bowel diseases such as ulcerative colitis, Crohn's disease, and celiac disease 5 General Instructions [facility] Emergency Department [address] [place] [address] Phone #: ext- [phone] 05/05/2021 03:16 Patient: MARVIN LEAHY Sex: M : 1990 Age: 31y Food intolerance, such as to lactose, the sugar found in milk and milk products Reaction to medicines like antibiotics, laxatives, cancer drugs, and antacidsAlong with diarrhea, you may also have: Abdominal pain and cramping Nausea and vomiting Loss of bowel control Fever and chills Bloody stoolsIn some cases, antibiotics may help to treat diarrhea. You may have a stool sample test. This is doneto see what is causing your diarrhea, and if antibiotics will help treat it. The results of a stool sampletest may take up to 2 days. The healthcare provider may not give you antibiotics until he or she hasthe stool test results.Diarrhea can cause dehydration. This is the loss of too much water and other fluids from the body.When this occurs, body fluid must be replaced. This can be done with oral rehydration solutions. Oralrehydration solutions are available at drugstores and grocery stores without a prescription. Sportsdrinks are not the best choice if you are very dehydrated. They have too much sugar and not enoughelectrolytes.Home careFollow all instructions given by your healthcare provider. Rest at home for the next 24 hours, or untilyou feel better. Avoid caffeine, tobacco, and alcohol. These can make diarrhea, cramping, and painworse.If taking medicines: Uzrk-mjs-neqiuup nausea and diarrhea medicines are generally OK unless you experience fever or blood stool. Check with your doctor first in those circumstances. You may use acetaminophen or NSAID medicines like ibuprofen or naproxen to reduce pain and fever. Don't use these if you have chronic liver or kidney disease, or ever had a stomach ulcer or gastrointestinal bleeding. Don't use NSAID medicines if you are already taking one for another condition (like arthritis) or are on daily aspirin therapy (such as for heart disease or after a stroke). Talk with your healthcare provider first. If antibiotics were prescribed, be sure you take them until they are finished. Don't stop taking them even when you feel better. Antibiotics must be taken as a full course. 6 General Instructions [facility] Department [address] [place] [address] Phone #: ext- [phone] 05/05/2021 03:16 Patient: MARVIN LEAHY Sex: M : 1990 Age: 31yTo prevent the spread of illness: Remember that washing with soap and water and using alcohol-based ballistics teacher is the best way to prevent the spread of infection. Dry your hands with a single use towel (like a paper towel). Clean the toilet after each use. Wash your hands before eating. Wash your hands before and after preparing food. Keep in mind that people with diarrhea or vomiting should not prepare food for others. Wash your hands after using cutting boards, countertops, and knives that have been in contact with raw foods. Wash and then peel fruits and vegetables. Keep uncooked meats away from cooked and yvusv-sf-cgu foods. Use a food thermometer when cooking. Cook poultry to at least 165F (74C). Cook ground meat (beef, veal, pork, noguera) to at least 160F (71C). Cook fresh beef, veal, noguera, and pork to at least 145F (63C). Don't eat raw or undercooked eggs (poached or irma side up), poultry, meat, or unpasteurized milk and juices.Food and drinksThe main goal while treating vomiting or diarrhea is to prevent dehydration. This is done by takingsmall amounts of liquids often. Keep in mind that liquids are more important than food right now. Drink only small amounts of liquids at a time. Don't force yourself to eat, especially if you are having cramping, vomiting, or diarrhea. Don't eat large amounts at a time, even if you are hungry. If you eat, avoid fatty, greasy, spicy, or fried foods. Don't eat dairy foods or drink milk if you have diarrhea. These can make diarrhea worse.During the first 24 hours you can try: Oral rehydration solutions. Sports drinks may be used if you are not too dehydrated and are otherwise healthy. Soft drinks without caffeine 7 General Instructions [facility] Emergency Department [address] [place] [address] Phone #: ext- [phone] 05/05/2021 03:16 Patient: MARVIN LEAHY Sex: M : 1990 Age: 31y Shaina eliot Water (plain or flavored) Decaf tea or coffee Clear broth, consomm, or bouillon Gelatin, popsicles, or frozen fruit juice barsThe second 24 hours, if you are feeling better, you can add: Hot cereal, plain toast, bread, rolls, or crackers Plain noodles, rice, mashed potatoes, chicken noodle soup, or rice soup Unsweetened canned fruit (no pineapple) BananasAs you recover: Limit fat intake to less than 15 grams per day. Don't eat margarine, butter, oils, mayonnaise, sauces, gravies, fried foods, peanut butter, meat, poultry, or fish. Limit fiber. Don't eat raw or cooked vegetables, fresh fruits except bananas, or bran cereals. Limit caffeine and chocolate. Limit dairy. Don't use spices or seasonings except salt. Go back to your normal diet over time, as you feel better and your symptoms improve. If the symptoms come back, go back to a simple diet or clear liquids.Follow-up careFollow up with your healthcare provider, or as advised. If a stool sample was taken or cultures weredone, call the healthcare provider for the results as instructed.Call [phone] if you have any of these symptoms: Trouble breathing Confusion 8 General Instructions [facility] Emergency Department [address] [place] [address] Phone #: ext- [phone] 05/05/2021 03:16 Patient: MARVIN LEAHY Sex: M : 1990 Age: 31y Extreme drowsiness or trouble walking Loss of consciousness Rapid heart rate Chest pain Stiff neck SeizureWhen to seek medical adviceCall your healthcare provider right away if any of these occur: Abdominal pain that gets worse Constant lower right abdominal pain Continued vomiting and inability to keep liquids down Diarrhea more than 5 times a day Blood in vomit or stool Dark urine or no urine for 8 hours, dry mouth and tongue, tiredness, weakness, or dizziness Drowsiness New rash You don't get better in 2 to 3 days Fever of 100.4F (38C) or higher, or as directed by your healthcare provider [phone] [employer]. [address] [place] [address], [place] [address]. All rights reserved. This information is not intended as asubstitute for professional medical care. Always follow your healthcare professional's instructions.Dehydration (Adult)Dehydration occurs when your body loses too much fluid. This may be the result of prolongedvomiting or diarrhea, excessive sweating, or a high fever. It may also happen if you don't drinkenough fluid when you're sick or out in the heat. Misuse of diuretics (water pills) can also be a cause.Symptoms include thirst, decreased urine output, and darker colored urine. You may also feel dizzy,weak, fatigued, or very drowsy. The diet described below is usually enough to treat dehydration. Insome cases, you may need medicine. 9 General Instructions [facility] Emergency Department [address] [place] [address] Phone #: ext- [phone] 05/05/2021 03:16 Patient: MARVIN LEAHY Sex: M : 1990 Age: 31yHome care Drink at least 12, 8-ounce glasses of fluid every day to resolve the dehydration. Fluid may include water; orange juice; lemonade; apple, grape, or cranberry juice; clear fruit drinks; electrolyte replacement and sports drinks; and teas and coffee without caffeine. Don't drink alcohol. If you have been diagnosed with a kidney disease, ask your doctor how much and what types of fluids you should drink to prevent dehydration. If you have kidney disease, fluid can build up in the body. This can be dangerous to your health. If you have a fever, muscle aches, or a headache as a result of a cold or flu, you may take acetaminophen or ibuprofen, unless another medicine was prescribed. If you have chronic liver or kidney disease, or have ever had a stomach ulcer or gastrointestinal bleeding, talk with your healthcare provider before using these medicines. Don't take aspirin if you are younger than 18 and have a fever. In children with fever, aspirin raises the chance for severe liver injury and .Follow-up careFollow up with your healthcare provider, or as advised.When to seek medical adviceCall your healthcare provider right away if any of these occur: Continued vomiting Frequent diarrhea (more than 5 times a day); blood (red or black color) or mucus in diarrhea Swollen abdomen or increasing abdominal pain Reduced urine output or extreme thirst Fever of 100.4F (38C) or higherCall 911Call 911 or get medical care right away if you have any of the following: Weakness, dizziness, or fainting Unusual drowsiness or confusion Blood in vomit or stool [phone] [employer] [place] [address]. All rights reserved. This information is not intended as asubstitute for professional medical care. Always follow your healthcare professional's instructions. 10 General Instructions [facility] Emergency Department [address] [place] [address] Phone #: [phone] 05/05/2021 03:16 ------- Patient: MARVIN LEAHY Sex: M : 1990 Age: 31yHypokalemiaHypokalemia means a low level of potassium in the blood. This most often occurs in people who takewater pills (diuretics). It can also occur because of severe vomiting or diarrhea. You may also have itif you take laxatives for long periods of time. It sometimes happens if you have low magnesium(hypomagnesemia). If you have this, your healthcare provider will treat the low magnesium first.A mild case of hypokalemia usually causes no symptoms. It is only found with blood testing. Moresevere potassium loss causes overall weakness, muscle or abdominal cramps, rapid or irregularheartbeats (heart palpitations), low blood pressure,muscle weakness, and in some indviduals cancause temporary paralysis. .Home care Take any potassium supplements as prescribed. Eat foods rich in potassium. The highest amount is found in avocado, baked potatoes, spinach, cantaloupe, cod, halibut, salmon, and scallops. White, red, or ferrari beans are also very good sources. A modest amount of potassium is found in orange juice, bananas, carrots, and tomato juice. If you take certain types of diuretics, you will also need to take potassium supplements. If you take a diuretic, discuss potassium supplements with your doctor.Follow-up careFollow up with your healthcare provider for a repeat blood test within the next week, or as advised byour staff.When to seek medical adviceCall your healthcare provider right away if any of the following occur: Increased weakness, fatigue, or muscle cramps DizzinessCall 911Call 911 if any of the following occur: Irregular heartbeat, extra beats, or very fast heart rate Loss of consciousness [phone] [employer]. [address] [place] [address]. All rights reserved. This information is not intended as a 11 General Instructions [facility] Emergency Department [address] [place] [address] Phone #: ext- [phone] 05/05/2021 03:16 --------- Patient: MARVIN LEAHY Sex: M : 1990 Age: 31ysubstitute for professional medical care. Always follow your healthcare professional's instructions.Dehydration (Adult)Dehydration occurs when your body loses too much fluid. This may be the result of prolongedvomiting or diarrhea, excessive sweating, or a high fever. It may also happen if you don't drinkenough fluid when you're sick or out in the heat. Misuse of diuretics (water pills) can also be a cause.Symptoms include thirst, decreased urine output, and darker colored urine. You may also feel dizzy,weak, fatigued, or very drowsy. The diet described below is usually enough to treat dehydration. Insome cases, you may need medicine.Home care Drink at least 12, 8-ounce glasses of fluid every day to resolve the dehydration. Fluid may include water; orange juice; lemonade; apple, grape, or cranberry juice; clear fruit drinks; electrolyte replacement and sports drinks; and teas and coffee without caffeine. Don't drink alcohol. If you have been diagnosed with a kidney disease, ask your doctor how much and what types of fluids you should drink to prevent dehydration. If you have kidney disease, fluid can build up in the body. This can be dangerous to your health. If you have a fever, muscle aches, or a headache as a result of a cold or flu, you may take acetaminophen or ibuprofen, unless another medicine was prescribed. If you have chronic liver or kidney disease, or have ever had a stomach ulcer or gastrointestinal bleeding, talk with your healthcare provider before using these medicines. Don't take aspirin if you are younger than 18 and have a fever. In children with fever, aspirin raises the chance for severe liver injury and .Follow-up careFollow up with your healthcare provider, or as advised.When to seek medical adviceCall your healthcare provider right away if any of these occur: Continued vomiting Frequent diarrhea (more than 5 times a day); blood (red or black color) or mucus in diarrhea Swollen abdomen or increasing abdominal pain Reduced urine output or extreme thirst Fever of 100.4F (38C) or higher 12 General Instructions [facility] Emergency Department [address] [place] [address] Phone #: ext- [phone] 05/05/2021 03:16 Patient: MARVIN LEAHY Sex: M : 1990 Age: 31yCall 911Call 911 or get medical care right away if you have any of the following: Weakness, dizziness, or fainting Unusual drowsiness or confusion Blood in vomit or stool [employer]. [address] [place] [address]. All rights reserved. This information is not intended as asubstitute for professional medical care. Always follow your healthcare professional's instructions.HypokalemiaHypokalemia means a low level of potassium in the blood. This most often occurs in people who takewater pills (diuretics). It can also occur because of severe vomiting or diarrhea. You may also have itif you take laxatives for long periods of time. It sometimes happens if you have low magnesium(hypomagnesemia). If you have this, your healthcare provider will treat the low magnesium first.A mild case of hypokalemia usually causes no symptoms. It is only found with blood testing. Moresevere potassium loss causes overall weakness, muscle or abdominal cramps, rapid or irregularheartbeats (heart palpitations), low blood pressure,muscle weakness, and in some indviduals cancause temporary paralysis. .Home care Take any potassium supplements as prescribed. Eat foods rich in potassium. The highest amount is found in avocado, baked potatoes, spinach, cantaloupe, cod, halibut, salmon, and scallops. White, red, or ferrari beans are also very good sources. A modest amount of potassium is found in orange juice, bananas, carrots, and tomato juice. If you take certain types of diuretics, you will also need to take potassium supplements. If you take a diuretic, discuss potassium supplements with your doctor.Follow-up careFollow up with your healthcare provider for a repeat blood test within the next week, or as advised byour staff.When to seek medical adviceCall your healthcare provider right away if any of the following occur: 13 General Instructions [facility] Emergency Department [address] [place] [address] Phone #: ext- [phone] 05/05/2021 03:16 Patient: MARVIN LEAHY Sex: M : 1990 Age: 31y Increased weakness, fatigue, or muscle cramps DizzinessCall 911Call 911 if any of the following occur: Irregular heartbeat, extra beats, or very fast heart rate Loss of consciousness [employer]. [address] [place] [address]. All rights reserved. This information is not intended as asubstitute for professional medical care. Always follow your healthcare professional's i nstructions. You have been given the following additional information: Vomiting (Adult) Diarrhea, Unknown Cause Dehydration (Adult) Hypokalemia Dehydration (Adult) Hypokalemia Rest.(Electronically signed by Lluvia Lantigua MD 05/05/2021 06:35) Name Value Range Interpretation Code Description Data Marifer rce(s) Supporting Document(s) ID Date Data Source [id number] 05/05/2021 03:26:00 AM EDT [facility] 1 Clinical Report - Nurses [facility] Emergency Department [address] [place] [address] Phone #: ext- [phone] 05/05/2021 03:16 Patient: MARVIN LEAHY Sex: M : 1990 Age: 31yTRIAGEArrived by private vehicle. Historian: patient.Triage time: 03:22 05/05/2021.Chief Complaint: ABDOMINAL PAIN, NAUSEA, VOMITING and DIARRHEA.This started yesterday. He has had vomiting. The vomiting has occurred numerous times and crampingabdominal pain. The pain is described as located in the central area of the abdomen and associated withvomiting and diarrhea. He has had diarrhea (3 times). --03:28 05/05/21 Bethany Holder R.N.Acuity: LEVEL 3.SEPSIS SCREEN: SEPSIS SCREEN NEGATIVE. No suspected or confirmed signs of infection present.--03:31 05/05/21 Bethany Holder R.N.03:29 05/05/21. BP: 133/85. MAP: 101. HR: 73. RR: 16. O2 saturation: 100%. Temp: 98.3 F. Pain levelnow: 05/18. --03:31 05/05/21 Bethany Holder R.N.Weight: 90.7 kg stated. Height/Length: 68 inches Per Patient. BMI: 30.4. --03:22 05/05/21 Bethany Lopez R.N.MedicationsEliquis Oral (Tablet 2.5 mg), 2x a day. Escitalopram Oxalate Oral (Tablet 10 mg), 2x a day. Ivermectin Oral (Tablet 3 mg) 3 tabs, every 6 months. Pregnyl Intramuscular (Solution Reconstituted 83240 unit), 3x a week. traZODone HCl Oral (Tablet 50 mg), daily. Xolair Subcutaneous (Solution Reconstituted 150 mg) 300mg, 3x a week. --03:34 05/05/21 Bethany Lopez R.N. allergy medicine daily. --03:34 05/05/21 Bethany Holder R.N.AllergiesNone.Seafood. --03:34 05/05/21 Bethany Holder R.N.PROBLEMS:G6Pd Deficiency.Skin Problems.Ureterolithiasis.DVT - Deep Venous Thrombosis. --03:35 05/05/21 Bethany Holder R.N. 2 Clinical Report - Nurses [facility] Emergency Department [address] [place] [address] Phone #: ext- [phone] 05/05/2021 03:16 Patient: MARVIN LEAHY Sex: M : 1990 Age: 31y Insomnia. Testosterone deficiency. --03:36 05/05/21 Bethany Holder R.N. Sleep Apnea: (New diagnosis, Seen Thursday in [place] for CPAP treatment). --03:38 05/05/21 Bethany Holder R.N. ADDITIONAL SURGERIES: None. Ureteral Stent. Uroscopy. --03:35 05/05/21 Bethany Holder R.N. History PAST MEDICAL HX: No history of diabetes mellitus. No history of gastroesophageal reflux disease, gallstones or peptic ulcer disease. Immunizations: up-to-date. SOCIAL HX: Never smoker. No [...] thoughts of harming or killing yourself?" and "Have you recently had thoughts about harming or killing others?". ABUSE ASSESSMENT: No report of abuse. FALL RISK ASSESSMENT: Fall risk assessment completed. Risk factors identified include nausea. --03:32 05/05/21 Bethany Holder R.N.PHYSICAL ASSESSMENTAmbulatory to room.GENERAL / NEURO / PSYCH: Alert. Oriented X 4. Appears in pain. ( Grimacing, holding abd).RESPIRATORY: Respirations not labored.CVS: Capillary refill less than 2 seconds.GI / : The patient has had nausea and diarrhea. Emesis noted.SKIN: Skin is warm and dry. --03:37 05/05/21 Bethany Holder R.N.NURSING PROGRESS NOTESPatient gowned. Head of bed elevated. Reassurance given to the patient. Call light placed in reach.Bed placed in lowest position. Brakes of bed on. --03:37 05/05/21 Bethany Holder R.N. 03:44 05/05/2021 Site #1 started via IV in the right forearm with an 20g angiocath; one attempt. Saline lock flushed with 10 mL saline (2 previous attempts by previous [facility] [place] --03:49 05/05/21 Bethany Holder R.N. 03:49 05/05/2021 Started bag #1 1000 mL IV Fluids NS; at 1000 mL/hr via site #1 via IV pump. Allergies 3 Clinical Report - Nurses [facility] Emergency Department [address] [place] [address] Phone #: ext- [phone] 05/05/2021 03:16 Patient: MARVIN LEAHY Sex: M : 1990 Age: 31y verified and confirmed 5 rights. IV patency established. IV site checked: no pain, redness, or swelling. IV flushed thoroughly pre- and post-medication administration. Information reviewed with patient including reason for taking this medication. Verbalizes understanding. --03:49 05/05/21 Bethany Holder R.N. 03:56 05/05/2021 Zofran (Ondansetron HCl) IVP 8 mg given over 2 minute(s) via site #1. Allergies verified and confirmed 5 rights. IV patency established. IV site checked: no pain, redness, or swelling. IV flushed thoroughly pre- and post-medication administration. IVP given by RN. Information reviewed with patient including reason for taking this medication. Verbalizes understanding. --03:56 05/05/21 Bethany Holder R.N. 04:02 05/05/2021 Morphine IVP 4 mg given over 5 minute(s) via site #1. Allergies verified and confirmed 5 rights. IV patency established. IV site checked: no pain, redness, or swelling. IV flushed thoroughly pre- and post-medication administration. IVP given by RN. Information reviewed with patient including reason for taking this medication and sedative warning. Verbalizes understanding. --04:02 05/05/21 Bethany Holder R.N. 05:14 05/05/2021 IV Fluids NS via IV site #1 Discontinued: completed. Total amount infused: 1000 mL. --06:24 05/05/21 Bravo Lo 05:15 05/05/2021 Started bag #1 1000 mL IV Fluids NS; at 1000 mL/hr via site #1 via IV pump. Allergies verified and confirmed 5 rights. IV patency established. IV site checked: no pain, redness, or swelling. IV flushed thoroughly pre- and post-medication administration. Information reviewed with patient including reason for taking this medication. Verbalizes understanding. --06:24 05/05/21 Bethany Holder R.N. 06:14 05/05/2021 POTASSIUM CHLORIDE LIQUID PO PO Oral Suspension 40 meq given. Allergies verified and confirmed 5 rights. Information reviewed with patient including reason for taking this medication. Verbalizes understanding. --06:19 05/05/21 Bethany Holder R.N. 06:15 05/05/2021 IV Fluids NS via IV site #1 Discontinued: completed. Total amount infused: 1000 mL. --06:25 05/05/21 Bethany Holder R.N.DISPOSITION / DISCHARGE 06:23 05/05/2021 Site #1 removed upon discharge. Bandage applied. --06:05/05/21 Bethany Holder R.N. Departure time: 06:05/05/2021. Condition at departure: improved and stable. No learning barriers present. Reviewed medication(s) information. Prescription(s) sent electronically to pharmacy. Activity restrictions reviewed (REST). Patient verbalized understanding. Written instructions provided in [place]. The patient was discharged by the physician. He was discharged home. He left ambulatory and via private vehicle. --06:26 05/05/21 Bethany Holder R.N. 06:20 05/05/21. BP: 131/66. MAP: 87. HR: 81. RR: 18. O2 saturation: 97%. Temp: 96.4 F. Pain level now: 01/16. --06:05/05/21 Bethany Holder R.N. 4 Clinical Report - Nurses [facility] Emergency Department [address] [place] [address] Phone #: ext- [phone] 05/05/2021 03:16 Patient: MARVIN LEAHY Sex: M : 1990 Age: 31yLocked/Released at 05/05/2021 06:27 by Bethany Holder R.N. Name Value Range Interpretation Code Description Data Marifer rce(s) Supporting Document(s) ID Date Data Source [id number] 05/05/2021 03:26:00 AM EDT [facility] 1 Clinical Report - Physicians/Mid Levels [facility] Emergency Department [address] [place] [address] Phone #: ext- [phone] 05/05/2021 03:16 Patient: MARVIN LEAHY Sex: M : 1990 Age: 31y Arrived- By private vehicle. Historian- patient.HISTORY OF PRESENT ILLNESS Chief Complaint: ABDOMINAL PAIN. It is described as cramping. No radiation. It is described as generalized in location. This started today and is still present. The patient has had nausea, loss of appetite, vomiting and diarrhea. No additional abdominal pain. (ABDOMINAL PAIN, NAUSEA, VOMITING and DIARRHEA. This started yesterday. He has had vomiting. The vomiting has occurred numerous times and cramping abdominal pain. The pain is described as located in the central area of the abdomen and associated with vomiting and diarrhea. He has had diarrhea (3 times)). No recent travel. Similar symptoms previously. None. Recent medical care: Not recently seen/assessed.REVIEW OF SYSTEMSNo constipation, black stools, hematemesis or difficulty with urination or urination. No pain with urination,urinary frequency or urinary frequency, bloody stools or fever. No headache, sore throat or throat, blurredvision or cough. No joint pain, skin rash or rash or chills. No back pain or pain, chills, fever or doublevision. No runny nose, chest pain, cough, difficulty breathing or constipation. No neck pain, headache,seizure or easy bruising. The patient has had abdominal pain, diarrhea, nausea and vomiting but not hadweight loss. He has no pain on weight bearing.PAST HISTORYSee nurses notes. Problems: Hypertension. G6Pd Deficiency. DVT - Deep Venous Thrombosis. Additional Surgeries: Ureteral Stent. Uroscopy. Medications: allergy medicine daily. Eliquis Oral (Tablet 2.5 mg), 2x a day. Escitalopram Oxalate Oral (Tablet 10 mg), 2x a day. 2 Clinical Report - Physicians/Mid Levels [facility] Emergency Department [address] [place] [address] Phone #: ext- [phone] 05/05/2021 03:16 Patient: MARVIN LEAHY Sex: M : 1990 Age: 31y Ivermectin Oral (Tablet 3 mg) 3 tabs, every 6 months. Pregnyl Intramuscular (Solution Reconstituted 50518 unit), 3x a week. traZODone HCl Oral (Tablet 50 mg), daily. Xolair Subcutaneous (Solution Reconstituted 150 mg) 300mg, 3x a week. Allergies: None. Seafood.SOCIAL HISTORYNo drug use.ADDITIONAL NOTESThe nursing notes have been reviewed.PHYSICAL EXAMVital Signs: 05/05/2021 03:29 BP: 133/85. MAP: 101. HR: 73. RR: 16. O2 saturation: 100%. Temp: 98.3F. Pain level now: 10. Have been reviewed and appear to be correct. Hypertensive. Mean arterialpressure- normal. Heart rate normal. Respiratory rate normal. Temperature normal. Oxygensaturation normal.Appearance: Alert. Oriented X3. No acute distress.Eyes: Pupils equal, round and reactive to light. Eyes normal inspection.ENT: Nose normal. Mildly dry mucous membranes present (mild).Neck: Normal inspection. Neck supple.CVS: Normal heart rhythm and rate. Heart sounds normal. Pulses normal.Respiratory: No respiratory distress. Painless inspiration. Breath sounds normal. Chest nontender.Abdomen: Soft and nontender. Bowel sounds normal.Back: Normal inspection. No CVA tenderness.Skin: Skin warm and dry. Normal skin color. No rash. Normal skin turgor.Extremities: Extremities exhibit normal ROM. No lower extremity edema.Neuro: Oriented X 3. No motor deficit. No sensory deficit.LABS, X-RAYS, AND EKGLaboratory Tests: CT Abd PEL W/ IV Contrast Only: (DERRICK: 05/05/2021 03:43) ( MsgRcvd 05/05/2021 05:46) Final results Exam CT ABD //T// PELVIS W/ [place] [address] ---------NAME--------- NUMBER SEX AGE ADMIT DISC. XRAY# F/C TYPE TOSIN Rivera [id number] 31 05/05/21 [id number] E/R DATE OF : 1990 M/R# [id number] #: [id number] TR-07 LOCATION: TRANSCRIBED: 05/05/21 5:[address] ABD //T// PELVIS W/ IV ONLY [id number] COMPLETED:05/05/21 5:05 [facility] [id number] Reason(s): Abdominal Pain PHYSICIAN: RAISA 3 Clinical Report - Physicians/Mid Levels [facility] Emergency Department [address] [place] [address] Phone #: ext- [phone] 05/05/2021 03:16 Patient: MARVIN LEAHY Sex: M : 1990 Age: 31y == R A D I O L O G Y R E P O R T PATIENT HISTORY:CT ABD Pelvis W IV ONLY Dx: abd pain cramping nausea. actual dose 701mGy*cmPatient received 75 ml isovue 370 lot# [id number] exp 03/2023. CorrecT patientcorrect side.Patient male. Patient shielded. 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 actualdose 701mGy*cm Patient received 75 ml isovue 370 lot# [id number] exp 03/2023.CorrecT patient correct side. Patient male. Patient shielded. Verification of 2patient identifiers performed. smwTECHNIQUE: Axial computed tomography images of the abdomen and pelvis withintravenous contrast. / All CT scans at this facility use dose modulation,iterative reconstruction, and/or weight-based dosing when appropriate to reduceradiation dose to as low as reasonably achievable.CONTRAST: with intravenous contrast. With; 75 ml isovue 370 lot# [id number] OMPARISON: None provided.FINDINGS:LUNG BASES: The lung bases appear clear. No pleural effusions are seen.LIVER: Unremarkable.GALLBLADDER AND BILE DUCTS: The gallbladder appears within normal limits. Noradioopaque gallstones are seen. No biliary ductal dilatation is evident.PANCREAS: Unremarkable.SPLEEN: Unremarkable.ADRENAL GLANDS: Unremarkable.KIDNEYS, URETERS, AND BLADDER: The kidneys appear within normal limits. There isno hydronephrosis or hydroureter. No urinary calculi are seen.STOMACH AND BOWEL: Unremarkable appearance of the stomach and bowel. No evidenceof bowel obstruction. No evidence suggesting enteritis or colitis.APPENDIX: No evidence of acute appendicitis on CT examination.PERITONEUM: No free fluid. No free air.LYMPH NODES: No lymphadenopathy is evident.REPRODUCTIVE: Unremarkable as visualized.VASCULATURE: No evidence of abdominal aortic aneurysm.BONES: No aggressive appearing osseous lesion. No acute osseous pathologyevident. 4 Clinical Report - Physicians/Mid Levels [facility] Emergency Department [address] [place] [address] Phone #: ext- [phone] 05/05/2021 03:16 Patient: MARVIN LEAHY Sex: M : 1990 Age: 31y IMPRESSIONS: No acute intra-abdominal or pelvic abnormality. While performing the above CT examination, radiation dose reduction was accomplished utilizing automated exposure control, adjusting of the mA and kV based on the patient's body size and/or the use of imperative reconstructive techniques. Electronically Signed By: Manny Apodaca M.D. , Radiologist Date/Time: 05/05/21 05:45CBC w Diff: (DERRICK: 05/05/2021 04:19) ( MsgRcvd 05/05/2021 04:59) Final results Test Result Flag Units (Reference) CBC W/AUTOMATED DIFF COMPLETE BLOOD COUNT WBC 5.8 10/uL (4.2 - 11.0) RBC 4.39 L 10/uL (4.50 - 6.30) HEMOGLOBIN 12.9 L g/dL (14.0 - 16.0) HEMATOCRIT 39.5 L % (41.0 - 51.0) MCV 90.0 fL (80.0 - 94.0) MCH 29.4 pg (27.0 - 34.0) MCHC 32.7 g/dL (31.0 - 36.0) RDW 12.6 % (11.5 - 14.8) PLATELETS 182 10/uL (150 - 450) MPV 10.3 fL (7.4 - 10.4) NEUT 59.9 % (37.0 - 80.0) LYMPH 29.4 % (25.0 - 40.0) MONO 9.0 H % (3.0 - 8.0) EOS 1.2 % (0.0 - 7.0) BASO 0.2 % (0.0 - 2.0) %IG 0.3 H % (0.0 - 0.0) %NRBC 0.0 % (0.0 - 0.0) #NEUT 3.46 10/uL (2.00 - 6.90) #LYMPH 1.70 10/uL (0.60 - 3.40) #MONO 0.52 10/uL (0.00 - 0.90) #EOS 0.07 10/uL (0.00 - 0.70) #BASO 0.01 10/uL (0.00 - 0.20) #IG 0.02 10/uL (0.00 - 0.10) #NRBC 0.00 10/uL (0.00 - 0.00) MANUAL DIFF NOT INDICATED RBC MORPH NOT INDICATEDCMP: (DERRICK: 05/05/2021 04:19) ( MsgRcvd 05/05/2021 05:00) Final results Test Result Flag Units (Reference) COMPREHENSIVE METABOLIC PANEL COMPREHENSIVE METABOLIC PANEL SODIUM 143 mEq/L (134 - 153) POTASSIUM 3.3 L mEq/L (3.6 - 5.0) CHLORIDE 107 mEq/L (98 - 107) CO2 25 MEQ/L (22 - 30) GLUCOSE 96 MG/DL (70 - 99) BUN 11 MG/DL (7 - 21) CREATININE 0.9 MG/DL (0.7 - 1.5) BUN/CREAT 12 (8 - 27) 5 Clinical Report - Physicians/Mid Levels [facility] Emergency Department [address] [place] [address] Phone #: ext- [phone] 05/05/2021 03:16 Patient: MARVIN LEAHY Cristino Sex: M : 1990 Age: 31y TOTAL PROTEIN 7.0 G/DL (6.3 - 8.2) ALBUMIN 4.4 G/DL (3.9 - 5.0) GLOBULIN 2.6 GM/DL (2.4 - 3.2) A/G RATIO 1.7 (0.8 - 2.0) CALCIUM 9.3 MG/DL (8.4 - 10.2) TOTAL BILI 0.7 MG/DL (0.2 - 1.3) ALKALINE PHOS 77 U/L (38 - 126) SGOT/AST 23 U/L (5 - 40) SGPT/ALT 25 U/L (7 - 56) ANION GAP 11.0 mmol/L (8.0 - 16.0) AGE 31 yrs NON-AA GFR >60 mL/min AFR AMER [...] Normal 80 and above >32 mL/min Normal Lactic Acid: (DERRICK: 05/05/2021 04:19) ( MogRcvd 05/05/2021 04:56) Final results Test Result Flag Units (Reference) LACTIC ACID 1.7 MMOL/L (0.2 - 2.2) Lipase: (DERRICK: 05/05/2021 04:19) ( MsgRcvd 05/05/2021 04:57) Final results Test Result Flag Units (Reference) LIPASE 25 U/L (13 - 60) Magnesium: (DERRICK: 05/05/2021 04:19) ( MsgRcvd 05/05/2021 04:57) Final results Test Result Flag Units (Reference) MAGNESIUM 1.9 MG/DL (1.7 - 2.2).PROGRESS AND PROCEDURESPatient/family counseled. Disposition: Discharged. Condition: good and stable.CLINICAL IMPRESSION Vomiting with nausea. Diarrhea Mild dehydration Acute gastroenteritis. Hypokalemia 6 Clinical Report - Physicians/Mid Levels [facility] Emergency Department [address] [place] [address] Phone #: ext- [phone] 05/05/2021 03:16 Patient: MARVIN LEAHY Sex: M : 1990 Age: 31yINSTRUCTIONS Rest. Drink plenty of fluids. (Take the zofran for nausea. return if worse or any new symptoms. Eat a bland diet for the next 24 hours.). Warnings: Further evaluation is necessary. GENERAL WARNINGS: Return or contact your physician immediately if your condition worsens or changes unexpectedly, if not improving as expected, or if other problems arise. Your Current Medications: Your current home medications have been reviewed. CONTINUE TAKING THE FOLLOWING MEDICATIONS: allergy medicine daily*. Eliquis Oral : Tablet 2.5 mg, 2x a day. Escitalopram Oxalate Oral : Tablet 10 mg, 2x a day. Ivermectin Oral : Tablet 3 mg, 3 tabs every 6 months. Pregnyl Intramuscular : Solution Reconstituted 86722 unit, 3x a week. traZODone HCl Oral : Tablet 50 mg, daily. Xolair Subcutaneous : Solution Reconstituted 150 mg, 300mg 3x a week. Presc ription Medications: ondansetron 4 mg disintegrating tablet Take 1 tablet three times a day for 3 days -- prn nausea/vomiting. Dispense 9 tablet. Refills: 0. Substitution permitted. Note to Pharmacy - Rx DISCOUNT CARD: $ 13.59. USE: BIN:[id number], PCN:ANAIS, Group:[id number], ID:[id number]. Pharmacy - [facility] [id number] ; [place] [address]. . Follow-up: Follow up with your doctor Thursday even if well. Call for an appointment. Reason for referral: evaluation. Summary of care provided to patient via paper. Understanding of the discharge instructions verbalized by patient.(Electronically signed by Lluvia Lantigua MD 05/05/2021 06:35) Name Value Range Interpretation Code Description Data Marifer rce(s) Supporting Document(s) ID Date Data Source [id number] 05/05/2021 05:45:00 AM EDT [facility] [address] [place] [address] ---------NAME--------- NUMBER SEX AGE ADMIT DISC. XRAY# F/C TYPE TOSIN WONG Cristino [id number] M 31 05/05/21 [id number] E/R DATE OF : 1990 M/R# [id number] #: [id number] TR-07 LOCATION: TRANSCRIBED: 05/05/21 5:[address] ABD //T// PELVIS W/ IV ONLY [id number] COMPLETED:05/05/21 5:05 [facility] [id number] Reason(s): Abdominal Pain PHYSICIAN: RAISA R A D I O L O G Y R E P O R T PATIENT HISTORY:CT ABD Pelvis W IV ONLY Dx: abd pain cramping nausea. actual dose 701mGy*cmPatient received 75 ml isovue 370 lot# [id number] exp 03/2023. CorrecT patientcorrect side.Patient male. Patient shielded. 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 actualdose 701mGy*cm Patient received 75 ml isovue 370 lot# [id number] exp 03/2023.CorrecT patient correct side. Patient male. Patient shielded. Verification of 2patient identifiers performed. smwTECHNIQUE: Axial computed tomography images of the abdomen and pelvis withintravenous contrast. / All CT scans at this facility use dose modulation,iterative reconstruction, and/or weight-based dosing when appropriate to reduceradiation dose to as low as reasonably achievable.CONTRAST: with intravenous contrast. With; 75 ml isovue 370 lot# [id number] OMPARISON: None provided.FINDINGS:LUNG BASES: The lung bases appear clear. No pleural effusions are seen.LIVER: Unremarkable.GALLBLADDER AND BILE DUCTS: The gallbladder appears within normal limits. Noradioopaque gallstones are seen. No biliary ductal dilatation is evident.PANCREAS: Unremarkable.SPLEEN: Unremarkable.ADRENAL GLANDS: Unremarkable.KIDNEYS, URETERS, AND BLADDER: The kidneys appear within normal limits. There isno hydronephrosis or hydroureter. No urinary calculi are seen.STOMACH AND BOWEL: Unremarkable appearance of the stomach and bowel. No evidenceof bowel obstruction. No evidence suggesting enteritis or colitis.APPENDIX: No evidence of acute appendicitis on CT examination.PERITONEUM: No free fluid. No free air.LYMPH NODES: No lymphadenopathy is evident.REPRODUCTIVE: Unremarkable as visualized.VASCULATURE: No evidence of abdominal aortic aneurysm.BONES: No aggressive appearing osseous lesion. No acute osseous pathologyevident.IMPRESSIONS:No acute intra-abdominal or pelvic abnormality.While performing the above CT examination, radiation dose reduction wasaccomplished utilizing automated exposure control, adjusting of the mA and kVbased on the patient's body size and/or the use of imperative reconstructivetechniques.Electronically Signed By:Manny Apodaca M.D. , RadiologistDate/Time: 05/05/21 05:45 Name Value Range Interpretation Code Description Data Marifer rce(s) Supporting Document(s) ID Date Data Source [id number] 05/05/2021 05:00:00 AM EDT [facility] Name Value Range Interpretation Code Description Data [facility] rce(s) Supporting Document(s) COMPREHENSIVE METABOLIC PANEL [facility] COMPREHENSIVE METABOLIC PANEL Sodium [Moles/volume] in Serum or Plasma 143 mEq/L 134 - 153 [facility] Potassium [Moles/volume] in Serum or Plasma 3.3 mEq/L 3.6 - 5.0 L [facility] Chloride [Moles/volume] in Serum or Plasma 107 mEq/L 98 - 107 [facility] Carbon dioxide, total [Moles/volume] in Serum or Plasma 25 MEQ/L 22 - 30 [facility] Glucose [Mass/volume] in Serum or Plasma 96 MG/DL 70 - 99 [facility] BUN 11 MG/DL 7 - 21 [facility] al Creatinine [Mass/volume] in Serum or Plasma 0.9 MG/DL 0.7 - 1.5 [facility] BUN/CREAT 12 8 - 27 [facility] Protein [Mass/volume] in Serum or Plasma 7.0 G/DL 6.3 - 8.2 [facility] Albumin [Mass/volume] in Serum or Plasma 4.4 G/DL 3.9 - 5.0 [facility] Globulin [Mass/volume] in Serum by calculation 2.6 GM/DL 2.4 - 3.2 [facility] A/G RATIO 1.7 0.8 - 2.0 [facility] Calcium [Mass/volume] in Serum or Plasma 9.3 MG/DL 8.4 - 10.2 [facility] Bilirubin.total [Mass/volume] in Serum or Plasma 0.7 MG/DL 0.2 - 1.3 [facility] Alkaline phosphatase [Enzymatic activity/volume] in Serum or Plasma 77 U/L 38 - 126 [facility] Aspartate aminotransferase [Enzymatic activity/volume] in Serum or Plasma 23 U/L 5 - 40 [facility] Alanine aminotransferase [Enzymatic activity/volume] in Seru m or Plasma 25 U/L 7 - 56 [facility] Anion gap 3 in Serum or Plasma 11.0 mmol/L 8.0 - 16.0 [facility] AGE 31 yrs [facility] NON-AA GFR >60 mL/min [facility] AFR AMER GFR >60 mL/min [facility] Male GFR In [...] >32 mL/min Normal ID Date Data Source [id number] 05/05/2021 04:59:00 AM EDT [facility] Name Value Range Interpretation Code Description Data Marifer rce(s) Supporting Document(s) CBC W/AUTOMATED DIFF [facility] COMPLETE BLOOD COUNT Leukocytes [#/volume] in Blood by Automated count 5.8 10^3/uL 4.2 - 1 1.0 [facility] Erythrocytes [#/volume] in Blood by Automated count 4.39 10^6/uL 4. 50 - 6.30 L [facility] Hemoglobin [Mass/volume] in Blood 12.9 g/dL 14.0 - 16.0 L [facility] Hematocrit [Volume Fraction] of Blood by Automated count 39.5 % 4 1.0 - 51.0 L [facility] Erythrocyte mean corpuscular volume [Entitic volume] by Auto mated count 90.0 fL 80.0 - 94.0 [facility] Erythrocyte mean corpuscular hemoglobin [Entitic mass] by Automated count 29.4 pg 27.0 - 34.0 [facility] Erythrocyte mean corpuscular hemoglobin concentration [Mass/volume] by Automated count 32.7 g/dL 31.0 - 36.0 [facility] Erythrocyte distribution width [Ratio] by Automated count 12.6 % 11.5 - 14.8 [facility] Platelets [#/volume] in Blood by Automated count 182 10^3/uL 150 - 45 0 [facility] Platelet mean volume [Entitic volume] in Blood by Automated count 10.3 fL 7.4 - 10.4 [facility] Neutrophils/100 leukocytes in Blood by Automated count 59.9 % 37. 0 - 80.0 [facility] Lymphocytes/100 leukocytes in Blood by Manual count 29.4 % 25.0 - 40.0 [facility] Monocytes/100 leukocytes in Blood by Automated count 9.0 % 3.0 - 8.0 H [facility] Eosinophils/100 leukocytes in Blood by Automated count 1.2 % 0.0 - 7.0 [facility] Basophils/100 leukocytes in Blood by Automated count 0.2 % 0.0 - 2.0 [facility] %IG 0.3 % 0.0 - 0.0 H [facility] %NRBC 0.0 % 0.0 - 0.0 [facility] al Neutrophils [#/volume] in Blood by Automated count 3.46 10^3/uL 2.00 - 6.90 [facility] Lymphocytes [#/volume] in Blood by Automated count 1.70 10^3/uL 0.60 - 3.40 [facility] Monocytes [#/volume] in Blood by Automated count 0.52 10^3/uL 0.00 - 0.90 [facility] Eosinophils [#/volume] in Blood by Automated count 0.07 10^3/uL 0.00 - 0.70 [facility] Basophils [#/volume] in Blood by Automated count 0.01 10^3/uL 0.00 - 0.20 [facility] #IG 0.02 10^3/uL 0.00 - 0.10 [facility]ital #NRBC 0.00 10^3/uL 0.00 - 0.00 [facility] MANUAL DIFF NOT INDICATED [facility] RBC MORPH NOT INDICATED [facility] spital ID Date Data Source [id number] 05/05/2021 04:57:00 AM EDT [facility] Name Value Range Interpretation Code Description Data Marifer rce(s) Supporting Document(s) Magnesium [Mass/volume] in Serum or Plasma 1.9 MG/DL 1.7 - 2.2 [facility] ID Date Data Source [id number] 05/05/2021 04:57:00 AM EDT [facility] Name Value Range Interpretation Code Description Data Marifer rce(s) Supporting Document(s) Lipase [Enzymatic activity/volume] in Serum or Plasma 25 U/L 13 - 60 [facility] ID Date Data Source [id number] 05/05/2021 04:56:00 AM EDT [facility] Name Value Range Interpretation Code Description Data Marifer rce(s) Supporting Document(s) Lactate [Moles/volume] in Serum or Plasma 1.7 MMOL/L 0.2 - 2.2 [facility] ID Date Data Source [id number] 04/19/2021 12:34:04 PM EDT [facility] Name Value Range Interpretation Code Description Data Marifer rce(s) Supporting Document(s) Progress Note [facility] PUOFIm0gHbGRDgQc47/GCVvuJRWgm0PwTGhyLVz0HGvlEBOnC1GvQPL4iB0oPZK3IBiOTwFgLqAjPnXv lbm [file] Juan F+3zC5MGsPNjiqnyXTgRT+qBV+O+5dNIPZN08hOXINrns+Ik2NsQ867TI+8/QI9DNRNed4AQ4GVNf [file] ifEHHZFfOgMvmiEZlqJQGZQk3M ID Date Data Source [id number] 04/02/2021 09:10:27 PM EDT [facility] Name Value Range Interpretation Code Description Data Marifer rce(s) Supporting Document(s) Discharge Summary [facility] SQHHEv3vDeEJOjEr59/BWHckALWme0CiGQbzBDv3JMiwLAFrC0ShERE7eC5hVAO1PXsIAzOpZhDyHMZ9 lbm [file] 9eh7JthYyQ4QBEdpYJ6f6Szr+cGOrFHYAmAQMNCS2itPFoLn+VwO8on89YFbL/+8buru6tSTI9p/svp operations+a [file] AgICAgICAgICAgICAgICAgICAgICAgICAgICAgICAg HKDoMJUwXRVcTQXaZSLkCRAqBFLcQRFtYGLmOUSdOYSpDPXtKAKoNFHzEJDoNGRvEUGhWGVqXIWcEF6Z ICAgICAgICAgICAgICAgICAgICAgICAgICAgICAgICAgICAgICAgICAgICAgICAgICAgICAgICAgICAg ICAgICAgICAgICAgICAgICAgICAgICAgICAgICAgIC XrMNPnICPaHC5PDIUiTYZuOXRgQBKtMXPcNNJoEQHeUUEeZIUtCNUdNTCuLFAhREBcOTEoVIMoKUJdCC IuPBWuIENhEGNyRNVuTMBvUZCcREKjLGRyRMEhFGNdROOyXMRlSAFfHOTkQXIkMTVfZM0VLNCfMBQcWR AgICAgICAgICAgICAgICAgICAgICAgICAgICAgICAg ICAgICAgICAgICAgICAgICAgICAgICAgICAgICAgICAgICAgICAgICAgICAgICAgICAgICAgICAgICAg NS5EZOInKIUtXWEhBUSqBTDrOZXkMHTxTMUjIHVtEOTlZLBpEVMrKGNwABQdFVPhZDBuJHUcYUPjCYZx ICAgICAgICAgICAgICAgICAgICAgICAgICAgICAgIC HzZWIcJFVkEVYiTS7EDVVyRWAsCYJwRLQmLZAqLXFpWYNeCELtRMSrTNZvQRLsICJdNTPvMGDfVWCjQJ ZfOEYcUDSbCULhSEBoKZNhKDStYOMbPXBtJPXgJWWdRJLmBUWvBUBlAGQjWRFrZRUqQLSqPK0QHIXwVU AgICAgICAgICAgICAgICAgICAgICAgICAgICAgICAg ICAgICAgICAgICAgICAgICAgICAgICAgICAgICAgICAgICAgICAgICAgICAgICAgICAgICAgICAgICAg JCHpTJ8CJEVaQJRxRIBqOBImVNIxQEUuIXAqIGQiUDCpQWXrLFUdSGGsMGCyIDAjESCcOWWqWOReUOEu ICAgICAgICAgICAgICAgICAgICAgICAgICAgICAgIC YxPKQgUCUcOVKtUQPzTR3ZQYAwFLIgPXDcVMWzNDLbIXMpTTSuOYQlPQRzOXFxVJIaYTXsGSTcWVGoQP WkFMWfRGMrJDWjCPJwRFFoMTQeLFKdHHEzGMQhDPMuECIxHWUdAJPaEWGhFZVoCNKrTRHyXBHtDZ7TEY 45vAYpi4B8RJAzZY1vtsn/Do6GGIerstPjjKPuAB1A WzDnYJ6ipw4SIxNyVF8jkm6AEVaBFdLmL1Z1kEUwWEQpRPEFKpNzM54yIIywJm14QVulUDMtQmDtITl6 Rc8XGcXrS7diWZAdPzJ0PDBiNjK7UCLaHkR5UMQnLeCiKSHhTPDmKFUxJHISUUF5QPWyMaPpSwMgRLFt ISctDZTCJRCuUEOzTiJsDhQhRRBhEkBnLXDGMZP5MU DvOyYuDDKkAFXxGoJdMKMGEK1URvVfX9EglT00VKB4IPx+Xa7ELI3xz0LcUWx0EuVpAH6hwp3DCMdKLy BbG2WfxrD8HZYsQKChMf0HLIFtECQurBB6UoDvNIUTYoReD2ZcsR61KGAZEx4+DQplbmRvYmoNCjYzID Vhl2RkCFp2JU0UXCJeEUu5xGJjHPptY3agsnsjFLA7 aC1yustbYxfyO6QdvAodu2NgaKGGZUBdxIs6VKJOWjEUKZH0OGCoZbLwIhGmDUSoSas9HYQHADdTAxJl P1Ojt6CgWbE1FXMzWwHkSWpjTHJtAqV9AQ76nOeaBJ7SPGTyGMNpLV09VLBhFLWkVr1IAc5YNsSvZK2q wa7WKlAnDAAqTrcHCbb6ZSwaWW5HoHGtT0SnuYUtl6 hPAdBzJ0TKCXYjTSPrHv5NXYZdQoTpRGKdZUitMC7qJBFtUDJFxNflcaS3AD5EXH1xeoYjHG1OZaOzJj 3zIe1XZlDhR0KyH4OcYTHmVBKRTMjgHQ4PRIbuOW3cCH6Yb6AKlASxcY9ypu0ONHKzEHAgFktqsx4PEi bgL1O0mFisCAAeZlIoHHGUHHjhOR3UYVWtBKF1TNS4 NSDyOAQZUdElJ90wKD3KZ0Qjt89mLnS4MLKiGuUyMZtlGP99bBumkpLoaDJrnNpyMZ5RSd0+DQplbmRv QtvLHrasTGGPInYsQuWGPxSmGWVoEPYwHSXcDbC7ReSfAn8TQQJvXJQxOBYqAlEfTJKuVCYxYZbjHPLe DFc4ZlCnWMHyZCHfWG7BYfQbKMFjQVNzILKiGSFvLS Nagd8VGYDxEUKtJIK3KgVaFWNsNPYsLNjmDTFpGWF9HiS2YAKoNVKvUG7SBoCiLNXpERX8AmkxVMSnNA Wbpy1FHXCqAVRnBTJgUPLvQDPmYONdPDctQOJvFGC8YaZeXBJxIZRsWN4XPyJdMVLnVUMqKPHcSRDmKA Qjgo8NTBEiLENrBGU1FmQhQWJeMPIdQYvyWVBpFKJ9 BEd5LPXfWGNzZU2HTiGhZWTuPPzzRZDkWSCuSBEtli8NYHBnGKNnKmE4LfFqZZZfWOWyGHgvQWYmXFHc JgQ7ICBpIUDhWC4SYmQlGBOsYbWjVSTfVSOyWUScap6UXCDbMKNrPZRjVSUaMQIkVFYtTMpaXMZlLNN9 GAC8ICOwHSLbHF7KZjGhUVYoPlw0BMSpHFXzZSJjvd 1UBRMzYQYiHLAsLhJlDUPiLMFyLYzqPSGmPOTqHnR2XPCoDGIiLF1CGuUyKYXoDpVcNNKaIVLpZKHepb 9FBRGtMCKuXBJ4NyToSEEyQDMwPGryCWIsNWV4EnX4XJWcTZLeGS5OUwNlWGMfBmr3UKNoBJQjLOMkxo 9OVFOeIAP4NuU8IHQjGCMoAHEhOVzuBBSrVIYhXAa1 FYGuQVQnTY5VZaFzKDDoMLViJrNfJIHpZAQfdw7EEYTiFQI7VtO9NnTvWOMnPMDwNMqdDPHqVSD4KCD4 TITkCYSuEU4GYtKuUEMdRZr7SEFeQWQlEHZtfq0MBIHeEFF2VeI5MGLkJCQbJDYkQZhtHWTqNAVpKqz0 WHAxXYPiMZ9LUbSlJZYzUMU8UVHoNAKrZMDbmo6LBH UbWMP6Tce1NsJpKAUsARKmQBpjOEAoQZC9PLQ1XBBxEQBsNP6AMyBiIUHkYKFmCLViAJVqSNKhzv8JUO TcIDS5RJY5UjPePPLwSERhZRhpOGYjZDA3FYo1VLAvHNTgHY9ZCaIgJQLhNWZ2IFRdQZRuDTIvkm7EQY JgXSH6VrR2GFUcCERsDWIpGYktTTWxZLD6DBX2BSPp RVKiVE4PGwSyDYKaQKy2GJVuBSFfQQCwsp4COQSiPCM8Igr8QDKgYBTvCJOpCIaxIVBzAGR3OHj0HOLs DHDmMQ6TMxMhSFIuWku4CmFzQAIgNWIlon9JRTJdEGD0UCx5ZZKwJZQqEXSgOPqjTFOkPHvwSZogTVZx QZTbVA0LAdCaDXMoBqLkMynfGTFrUDRhfi1UTPJvXV Z5WIP1QSDbFFQmUWGyWApcCEJqJPa4XkDuCTZjTJJzZE8FWeJnQAUwQoV5RXvrLSLdUTEmfu9TZXKdRG Q9KQe1NNHaOUBaKQAsQPkxBJNkWIh1XUEgAZSoKJNvEY9DDbMgRCMtPbFlSWsrTXMsWSCoxs4QEDFaBJ V9QdG5FRYeCVDbXZQpMBdrWLAbZGc0OuuyRYZdXHYf HS2XMjGyGWNqHzq5JhEwKTLdHJCgic0ALBUiLRT2Vjv8MbPqMWFnBMHtBWcuWZTmCJf3YHC2OPWvJLJn RQ1CSjFkXUYpMlkiQBGtAONuHTXhwt0QBINvKYJ0FSO8PNFuPZPaILZjRTrfUUGrVNrgKEi6AYQsTZPv YG5FCqWbKIVyUHNwBlCuAVPdLQErwd0TQCJiXZM1KW HvYKUnPBTlXHDzZLr2aoUheCIsWXs9KS0GV4UgnqTrSnLZLo1Mk025RXI6PYZsRf2RS7erUi7vKUAzQH ZPXk4RHUv3B5WjNOtgTuTdY9OjKqDxYoUjRgSwBNzhPrFzCiddOpK+EJmfUlC0QLW8KOIdOXYoB5NyZM TrBOUzAUZlJlFsOUP2Mx4kJFKTWw2+RWiglQVduBspIWIQQgncYpNzDBezBCXFJr2U ID Date Data Source [id number] 03/03/2021 02:31:00 [place] [address] OPERATIVE SUMMARYNAME: TOSIN Rivera DATE OF : 1990ATTENDING PHYS: BENITO WILLETT MD DATE: 03/01/21 MR#: [id number] PROCEDURE: 03/01/21PREOPERATIVE DIAGNOSIS: Left ureteropelvic junction obstruction, s/p Left endopyelotomyPOSTOPERATIVE DIAGNOSIS: Left ureteropelvic junction obstruction, s/p LeftendopyelotomyPROCEDURE PERFORMED: Cystoscopy with left ureteral stent removal.SURGEON: Benito Willett MDASSISTANT: CRISTINA SkyTHEJULIANA: Monitored anesthesia care.ANESTHESIOLOGIST: Nelson Gaytan CRNA.ESTIMATED BLOOD LOSS: Minimal.COMPLICATIONS: None.DRAINS: None.DISPOSITION: To the Ambulatory Surgical Unit.CONDITION: Stable.INTRAOPERATIVE FINDINGS:Essentially normal cystoscopy with indwelling ureteral stent with the distal aspect in the urinarybladder.INDICATION FOR PROCEDURE:The patient is a 30-year-old gentleman who had previously been seen and evaluated with leftureteropelvic junction obstruction. He had undergone a left endopyelotomy followed by leftureteral stent placement and presented today for left ureteral stent removal.DETAILS OF PROCEDURE: [address] [id number] OPERATIVE SUMMARYNAME: TOSIN Rivera DATE OF : 1990ATTENDING PHYS: BENITO WILLETT MD DATE: 03/01/21 MR#: [id number] a detailed informed consent was obtained from the patient, he was wheeled into the operatingroom and installed on the operating table in the supine position. Adequate monitored anesthesiacare was then induced and the penoscrotal area was cleaned, prepped and draped in the usual sterilefashion. After the adequate time-out procedures were carried out, cystourethroscopy using theflexible cystoscope was performed. The distal aspect of the indwelling ureteral stent could be easilyidentified. Using the Aligator grasper, the stent was grasped and pulled out without difficulties. Theprocedure was well tolerated. The patient was transferred onto a stretcher and transferred to therecovery room in stable condition. The operation was well tolerated and there were nocomplications. The patient will be seen in 6 weeks for renal Lasix scan to ensure that obstructionhas resolved.DD: BENITO WILLETT MD 03/01/21 16:03DT: SILVERIO 03/03/21 02:20DS: BENITO WILLETT MD 04/02/21 19:40 2 Name Value Range Interpretation Code Description Data Marifer rce(s) Supporting Document(s) ID Date Data Source [id number] 04/01/2021 12:20:57 PM EDT [facility] Name Value Range Interpretation Code Description Data Marifer rce(s) Supporting Document(s) ED Provider Note [facility] DSSEEf9bQiYAPxEj30/YQEqaVNXis1ErXBbnSVk2ROwfUGTwT6DfUVE5aI9wBEY4JCyFAzTaNcGvVKT4 lbm [file] ckNP1HPND+Jayla+Do7PQIXyCHKbWAVjBjMpTCPMVxTrL0YpD0XLm6VwP9UhKW75tUkpgtYsHMusYT9ZRY 0dILPeHAYGKW8LvVNfyX0lvoT1WUOxEAKVZgMbY90zuHXkQDBqDIX1OTCoUr5KVBYkO1BdumVfcNyvqo FzUODsVCWKRQ8MDWfvbpVarRHllHdaKQ87rQpvIC5S Wh9NAlIfTR4suz6RjTPgHs1SOLE1OD3SVQYrCNRuIRKoJTL1UUAnGaQjSWqoDCUhQLSwFJQ6AGRpEIDz BM1XQnRdXTIyIATjJrSrRQBnJNQhlu1UFTPnPLN6EmJyFeYhQCGsQAKgLDwmRQFdZGAsHSY2LYKvQEKk AX7WRxNvGJIcKLL0FvsxCCWgASUyzy0QZBIcOVKqRx E3DeLuLHOcBBDsEDwbRMFgZRS1Stg9RMUlNTUpFY3UZeXhTIFjHFJ2SNRbLZMzBQZyaj5ORGKnOQDkNJ fuInEpNHHfAXOeCAcyTXHcHHY3OEG1KIWeQNOqTP1YZeSiLVAuHZL0NYleOCVmLNCryp0YIMAoZQNdFe E5DvVkGOEfMMGuBElzMQMwUKV1CgNiYLVkPTKsBB1K FeTaGENjOWG8ULhfWUYcIVAcoc3MHTKdOUFmYiB0HNLpWTExYRSeDVskXGXtPRA6Ysc0LKTiYHGkOU6W HkFkEMMwBvPvMQKcZOInWFWdlr1MPZXxIOXeMCZfZvBeKYKuCDPkUTzmJWIgWBU4ZcX7BZOpGUQcFJ7B MyPoMTBoSdE1IhYyYFTxQIPuql4UMFRhHGVqRiX8Bw OpMOOsQQIlLEydACKvBZQ0JAOmRPLbOAFmXV8MQiRnRPBeZsX1ZYKqEOLdBRBqdm0ZLTCdLUJwQFv5KI JyWAGcJHSuNBonLLCnRDTnXEGhAATePJCfSX6ZLrTcEOGbHvC3NRgaHLSnRZQqcg3ETVVwJBFfAFN9RU FkSCWwSDPuYIsuZPRpEJQ0AYj3UFPfQSJsKI5JNmBq INByNtLmDMpnXWWhRXOttz2POVZtLOSzGfDgBqByKOUsXAWtJCcyOLOlLDD9YaO0FWHfALXbSB0FFmMr XWTlKpP2HArgRWIbLWLeju7YJOElTDYaSeN1XePnOAPrVARfDZosDDYhFMO6XHE3XOWhLHCyXT7BBvIm OQHwPes6TXjqCHMnAQLxvc7ZJDXvUJQ9JKMhTbIiXC IrYCYoCUwhAOOtUUX8XZYmUVLeJHPiPG8KBbTrRJQjSIo5DJtlRAHjWOXxvm7FUZBsECV8ZMn6GGQpAK MhMFNsKVnjHEQfICIyIPY5LLKlZQRnPI2RUuMjXOKtMEV0XGjwKOWaSVHpxx9ANGEoCGH6KEU2OpItYI RxRQMyKMmkAQShMNUqBkN4FYFoBYLlYC6GAaLrNNOp XAO0ANzwJWTaENPift1RJHOjJNA4FoK5IEUkFTTmBMViXLgpJWDpDKOgAmK0FIJdKQEhHS9YFwFwQMGl HKG1EjIgPUNhNAWohq1UNMWzDDU9PedeAbGxOGVrDBFfOQkvRQXgJHTnNMRkBPLpGMYuFR6WDqPfXGPe WHOnRPDyCHGuLEVake8ZMIHuIXR7WKE4TpZjWMKpJA AxHHtjUHQlWFU2ROK6FQYcTCDmFJ9XQcExPZDhRNR8XfLqEWZeFBObhl0IRWGcJDP0KJzrXSOtNGKdAR VhVEmaSDPlHFF2RHk3ZNCmSWYlWE1OZqQfAUNlWTPdIdgkIDXeXUDrjm2EITKvWKZ9ZLZ7FlCaCWNiFZ QzNUpzRKYzPQM4KVFzHWJmFGYsPK5UTzIfEHmaMIVG Uzv2WTcjP5s2AQN4FS0FD0Egh8XyFWayESGTNWjrVP1dgtSfUXRtDu5LI1oUQyw9R7CxK4QtKpCcLaZ8 GIFiRswxACtyRCZiFaJmDzZxHg9tSQZuVTNcU4J5RNVaEyu2BLIuYQZiYlF3KrK8VmMxFbXtEtPyTD4Q Oc1LHyR7JII2xLMtVq0ZPKN6JzCCFfJzKC5WZUj= ID Date Data Source [id number] 04/01/2021 02:08:27 AM EDT [facility] Name Value Range Interpretation Code Description Data Marifer rce(s) Supporting Document(s) ED Provider Note [facility] LOJIHm2jDyIGVaKa43/ICMavEXNtc4TzIInqANm4UQcnZKNuD1WqFSO0mB7rGJP1DLmSLiHpLuEkWAJ5 lbm McYgyHTcGpXKLfBhhYQoKqHLjvCjbjqIQjJC4QlBA0SEGzI48tARYqCZUcC9YyHUPrJmL+Zm2AOAQvaT MeXX3LEiwL0X5Ee6lKCv3hJi4ytjjIMIEAwNXod8JnAN9syVPkX9XUKIORVFYgVKsT/1V+GcEX1Ls5WD PCENdR48Kff6I8X+89MwCEyP/8bap2ssAXLf775EBT lRhPxR//LEiOuPIbeFsDCWF4BUmz/WgS0Pdte55nkDcWoiOVho2Fb9UDwmXeWXNlMw3XMr04wgoS5Aw8 2RMnozi+i42VY3H50zNfVJpTEfgQg/X2rRj+KxxHxXaQdKDI7JJZYihf1Zt4n4Ch+PUAy7GwzDmPYhBL mo7exhGbkRaYuFR/leF3cXCJyxBwF1W+nH+fXCdsnM 4icSHFpdun1Apvl5WGwQpW9xtBQtssK9XZLXaEjsxVHBq0BQYUO3dN/Q1YWjZBCJZaLjpzAosfiwUx7U 1CfSNFv0b0abUD+01z3xWpNDTC/TmsjP4hunzPGkBqXxyprB52WsANazqAacsVJo/zcapi0jfVSig4KM UIYzvTjxVmHyxo5XESoRJ6bbAFaiUvPjmfu/WQTEYH Z8V3TdjcHcp9NuM2FfprN35kwKSrMOEl3or3UYsvwWjyCgKES3OVgSu7kZnhDyJVVM3KQL8Aq+4W5iuS 8pXrsj+fzQSa0Y8F+hmxd+v7ud90HKYzYF0SQbc2egKDOk18cXHNRiqjp2H/sca7HlrgI9ApHXBFeriV 5syUr7rhOqg3Tg+Gnm8f01taYv292UsPhhqK2eckbX fiJLqejCezqN/cEIy37OHAuMLgUmTIqSRuC7UvXP0u9VP5lfR+t8P2rNQiFIy4LL+[place]+xZN5AFJUu4x [file] OdI5AfUoC8CxM2BiHvXO3TUf1KObH8XRT7yAOuRk1SHQc7HgBIMiWvBL9JWEo= ID Date Data Source [id number] 03/28/2021 06:02:09 AM EDT [facility] Name Value Range Interpretation Code Description Data Marifer rce(s) Supporting Document(s) ED Provider Note [facility] FJPBLs0tNqGBYrBl28/MJQsgKSTcb2QeYWybLWx7ARzcIKCmR9RoFBH1eP0rQNG6NEoJTtPkLpLoEMZf lbm [file] NzY+IX0fLNm+Dg4Gl4HhzaY2hzXrOLl9WRW3Zg4GTOXFU3QYSm== ID Date Data Source [id number] 03/27/2021 09:48:23 PM EDT [facility] Name Value Range Interpretation Code Description Data Marifer rce(s) Supporting Document(s) History and Physical [facility] JRTFBa3pWgYLSpRl87/FEIupKPTnc8GlWQnwPUl5XSlkFUSkG5TlHBT0vZ9tIRW6WSmCStMwItYiJVG4 lbm [file] AgICAgICAgICAgICAgICAgICAgICAgICAgICAgICAgICAgICAgICAgICAgICAgICAgICAgICAgICAgIC ANCiAgICAgICAgICAgICAgICAgICAgICAgICAgICAg ICAgICAgICAgICAgICAgICAgICAgICAgICAgICAgICAgICAgICAgICAgICAgICAgICAgICAgICAgICAg ICAgICAgICAgICANCiAgICAgICAgICAgICAgICAgICAgICAgICAgICAgICAgICAgICAgICAgICAgICAg ICAgICAgICAgICAgICAgICAgICAgICAgICAgICAgIC AgICAgICAgICAgICAgICAgICAgICANCiAgICAgICAgICAgICAgICAgICAgICAgICAgICAgICAgICAgIC AgICAgICAgICAgICAgICAgICAgICAgICAgICAgICAgICAgICAgICAgICAgICAgICAgICAgICAgICAgIC AgICANCiAgICAgICAgICAgICAgICAgICAgICAgICAg ICAgICAgICAgICAgICAgICAgICAgICAgICAgICAgICAgICAgICAgICAgICAgICAgICAgICAgICAgICAg ICAgICAgICAgICAgICANCiAgICAgICAgICAgICAgICAgICAgICAgICAgICAgICAgICAgICAgICAgICAg ICAgICAgICAgICAgICAgICAgICAgICAgICAgICAgIC AgICAgICAgICAgICAgICAgICAgICAgICANCiAgICAgICAgICAgICAgICAgICAgICAgICAgICAgICAgIC AgICAgICAgICAgICAgICAgICAgICAgICAgICAgICAgICAgICAgICAgICAgICAgICAgICAgICAgICAgIC AgICAgICANCiAgICAgICAgICAgICAgICAgICAgICAg ICAgICAgICAgICAgICAgICAgICAgICAgICAgICAgICAgICAgICAgICAgICAgICAgICAgICAgICAgICAg ICAgICAgICAgICAgICAgICANCiAgICAgICAgICAgICAgICAgICAgICAgICAgICAgICAgICAgICAgICAg ICAgICAgICAgICAgICAgICAgICAgICAgICAgICAgIC AgICAgICAgICAgICAgICAgICAgICAgICAgICANCiAgICAgICAgICAgICAgICAgICAgICAgICAgICAgIC AgICAgICAgICAgICAgICAgICAgICAgICAgICAgICAgICAgICAgICAgICAgICAgICAgICAgICAgICAgIC AgICAgICAgICANCjw/fLIbC1jvnVMjoyJ6H2wsRy7W Xa4EHX1tk3TyPXZcUHehqdDkPawWJiHgOSHeCmnEBed5AEzqMO6KzLRsK2WtY7GsPRyoBM2FDPMrDKAh cMFxIKJkUZIqYsM4XTUcKCasHY4FeEKvNFppTMWjQROoDnQhEVKeMAHzJRLuPWAgKTQSJLJoQKXkZlAl OMQtUFYkBN0WDELnT266bdAhPx0JWa8DAmVlJD3bce 6QZiqySUWdPskXBuh4YOciJF7UvLXceACgDLVnWNUFBkRsM0vyr1WfXjtoOMJJXXnjYU8Yg4GtyETjFY o+Cg6ZXA4ge1YqTLnyUVNyFQ3ujv1LNLlEJiRpG5VbpEvpJRahVSVyrTXJOJHsIYZqNMvrZkY9AGMFYB TacFQ5JiR3RoQxCzBwJFG3WLjnZG1mRSqnSO9QQSH5 ZLfoIXIcRHZuV0aLCbKdJFIrLjPuzLdkGO7NQoUlP1BogbPqnAQeQMDmJWOJLp2+DQplbmRvYmoNCjQw UPEcd2TlEHk8JC3EHIDxREnrKX1LKDFflI9gHPuaCV4VEhPvKnGpYUGHZjEvN60fiSEdSJc5K5HkBcMi ZGVkRmlsZXMgPDwvTmFtZXMgWyBdDQogID4+ID4+DQ lrSG6BRFwigrUwIPBhOq0LUOAbJDRkGQ7sEZJrOGExJ7V7gHopLDQJAnJvY9wpnieyOR0hVMGbG608oW qjbhMcTXG7LIGpRd8NXLOfJMI4HMUtsADyDpqtDXNJINuoCA8MxGLqFAP5fE7uWVlfPGVmFCMnE8vAFg PycVyrKW70pAttogCsmGQeAVf+Et8EUI5ig1OsAYa7 pbJqLNcrRIFkYDpxNRRjIVLmXBWoOFM6VWH1BYIXQaJrUZCqDQGeCXpjDPHnXNStfz3GVPTtVZYqAhqv HhUzFMGdMAYiFUifQWFsBUP4ULHeRNKnLSNpNW3KUrOrQYJmKYGaZAaaTPAgWKPxhx7QRWQmWYHqIyq1 EQVtWSByXRDxQVbuEHLkSIIaVHw6ZDIwDKDbLZ9TEh WgIAWmNML1KNzaBOQyLOIcfb0SXUJoOZGsNwCcEgGeYPXwESMyDSmhHZXjFVU2Lsx2YXXqKYQoYT4WFr GeHUGlJXh2VHGuKUQjPJOfhl3PGBQtNDMjVhP0QgSrZRReQZViXGozEJWmNPAsEFV7LYTnPZRlBD4DTm QlQWDqRBGyWuMaKLUbZRWpce7VXJZbZPLcMWS8AbBe UDNqIYAmEYchCGLuJHA3ZNUpAWZiALMdFM7LHgEsSYJpIAq5UAjePVXiEJPnvo5LVMHlRXRyJZzlVIZx QXAhPOUyUDlnFNDaNLA9PDM2EZBfIYGqVA5JNsKpKNKjNNqtVIjqUTSsOLQnoj4DBNYaFCMuADD5EFIu VRVnVCRpYYajSPYxSMDlLcGiKDUbOELjPD8WCsYoFD AwTdN7NNcsIFPiVIBjai7ZFTCbZKZiYRRzOJTzGNNeTDSnSPdeRPOmQWRqTcG6YXTlKQXaLK5KAmCoQV VuXwR2ETqhNUHnMRPcuz0GPEZyZTTlPaS3DjOkNSAzPGYeDRtmHUNsALNnIMlmMVZbHRBtZS4UQiOtVL QnBbN7LAGfNFCaPKUftv2MFSCzYEQdNhmwSGJzGCXo MONqENndYNHxBFW2QRp7VKNfGDNyLE2SXeRuTSWqYoXzSqwjMNQqMIPtng3RDUPxMEFoYRTfIjAuEYJs ZGRcAZtnMEUaVJK9Mhf7FPKwOLAaON2JFnCwHSYmTkVqKwusGFFhNZFgeb9JNLQoMDAaEwQvONAxFITh CEYjQUdtZWWwJBZ6YvW7KBCgNCRxLN5ALnAiBVPjUy lgLbPhKLOvUTYmpc3PIRVuDAMaFROaPFOoQINnCRHpNHlnHGApVBW8DrF1TNOeUPWpQE7LZfGwIMEuDk e4UWBlPNPaKXExao0FcNViuIcthq0ACUpPLn2DlQwjXRVnBLniAi9boAN2FRXnJMQEXa4UpyLrIYDnKT UDXOnpQFNtKZf7VtdwSgXwGNaqRbV8NLDjC3ZjRUYe INUaPBAlK4TaLiD2RgXuRLXsSZPhI3FnGib5WgZ3JeI1GNU8KCI7QbUyXGJ+LV0yDFc+Lc5Dm8YoryX3 jiMyGTiaWLF6Ja7ELCJEM3QUJn== ID Date Data Source [id number] 03/23/2021 08:43:44 AM EDT [facility] Name Value Range Interpretation Code Description Data Marifer e(s) Supporting Document(s) History and Physical [facility] RVYIJb2eBePHZvJd95/AXUsiTWOux2RiNXfdTOk0ODebLEOjD4UsYMK1hF6hEIK3BDfMNvVmQbKlRUW6 lbm PzBdqWMrFsTQPgJzwHKzJuQSyaSsueyVUaKS8RfEH4ZJDmI80sZACyHAAmZ9UtEKHyAHM+Yh9MWZZguJ AkRK4GVlcZ2H1Hz1bLDq4jLS4IIrrCArBC9E4aIChckNJS5uiWXaCyKoFmSoO60DVzRn+wI0mUQcwH64 RWTqF7n/LS5HMxnc3xh2PS+t9/9EAeE5wr3o/l1zB2 1NWd+gqc1Gcf60EGLw/XRDZYC0YLaQ0Cc1w36cx8BwiD7aqSJkQU6/ZmFNFLn85UUhMNn1cid/lk+rB6 eK66w+XyJvmieurzs+7FP9uBS0yJ4/hna2Hvz9Z2IB64Yvs2Yy8oka6skbBbVKkdT83Q1XVQ5Ol0UUYy a6NI+/6F6lsa6LJSLG7drnsYKcbGbsrpJnROwoHyKR 2bhZ/IadqNvUlyr7AYJvhakRDxoHWYJtm0CsfD+jWyUJZkkrzerpug6o1Y0OsdXfQKFDbnyYiB/GjNOJ 57hUjsVAsMCqHAwBbbGj8Ka9eRjtC201O7rdi5r6L3njLVwIy62yTH0pVoxqpQd+N4qUM0vvw0y5fkGD 0wCzSLjfrZzGzln03WmfPJqzV/DF/mvAmcsC8cx057 +K50YUtc8YypJOy0uKd9pahmM9aOwsWiXZHFYQYLrCNDd1bV/ALAPnNLf7EUgC4b0eFX7McGK3Vf93tm GGsF5pdihdmOH9mJXAIr6nsMKalpPmacADSEjiBm9falZK6KkOCNoQySyGnsCckgml53td1SziVPcYaT 3IPr4RWUSn2zQVPWp/WzXXyt6HM3IgPJxb/osnQuU2 zMPzL3kHpMfLN3z5I9WZsk8yxpAjAaIpwynYe/ZxSogaHH8wXJ+JR6b6fCoKNCqy6at4Jte7Adiztrbq J1jRyQ9kMBiWzIgVGICm04LH6lxHtfSI5raT7hjaF9zwPYxwx5rLhHpyJxK6g5GoqvkUzI93i5s5a36r VtL/Tdp5IcaxNTyst78NE8K+cDtvvSsRxbqfhVyszz 7t4bsmZC9Y45R60zxhKt6B8uZzSM7ofVj+6Dd86zmhWqnHu+K499WkavFgZicoFSrJhj6LAhnXzg61I6 OUEhZ4O6qdK+pAQ/3PhLUSU4BShxaPxL5Sh8Dmmx8EX9zHeS2ZWceGSLHKSiDJIXULSR+PkuPt1I79C/ cSPSmo0RvJmxx7C0flamuZvFfvz+/orQwnKfcIfMtG CgIX+D2LiUX6Odmk0IdfyV0n+i9nGfYw1sszPDEcUX/uevPKSvuZ2BveDbBw2bam8F72krZqQbNvSJGY HmlQrjSleQHxtfZAmLFfMBuxlBwLCb02WI0y4lfGk/lAsDwVXBgdHq3XTxoVTB5WHWyFR21TkFlSxvbS uJnnS501+dsuewh9s3Hn4gEmzdrSq2xOkoxDc9IH+m MO9yydJmWJx1Eh51cU0Uo4Q2PVSyVZkk6KwGqUz+spmM2cbBzotgfOW6zKdbDe6df2lNoeB1UfArl4Lt jKfJaC/h7rdGxaccjrNb3YmbvjH/TPIl9pNwTi24iuskVrnfiKIRgPKRDfRaz9WryIxhXcz/PyMYsVtX [facility]+Q2ZCij+unEYS0EmvhFMqQ8Oe4OgvbM7kGqON [file] ICAgICAgICAgICAgICAgICAgICAgICAgICAgICAgICAgICAgICAgICAgICAgICAgICAgICAgICAgICAg ICAgICAgICANCiAgICAgICAgICAgICAgICAgICAgIC AgICAgICAgICAgICAgICAgICAgICAgICAgICAgICAgICAgICAgICAgICAgICAgICAgICAgICAgICAgIC AgICAgICAgICAgICAgICAgICANCiAgICAgICAgICAgICAgICAgICAgICAgICAgICAgICAgICAgICAgIC AgICAgICAgICAgICAgICAgICAgICAgICAgICAgICAg ICAgICAgICAgICAgICAgICAgICAgICAgICAgICANCiAgICAgICAgICAgICAgICAgICAgICAgICAgICAg ICAgICAgICAgICAgICAgICAgICAgICAgICAgICAgICAgICAgICAgICAgICAgICAgICAgICAgICAgICAg ICAgICAgICAgICANCiAgICAgICAgICAgICAgICAgIC AgICAgICAgICAgICAgICAgICAgICAgICAgICAgICAgICAgICAgICAgICAgICAgICAgICAgICAgICAgIC AgICAgICAgICAgICAgICAgICAgICANCiAgICAgICAgICAgICAgICAgICAgICAgICAgICAgICAgICAgIC AgICAgICAgICAgICAgICAgICAgICAgICAgICAgICAg ICAgICAgICAgICAgICAgICAgICAgICAgICAgICAgICANCiAgICAgICAgICAgICAgICAgICAgICAgICAg ICAgICAgICAgICAgICAgICAgICAgICAgICAgICAgICAgICAgICAgICAgICAgICAgICAgICAgICAgICAg ICAgICAgICAgICAgICANCiAgICAgICAgICAgICAgIC AgICAgICAgICAgICAgICAgICAgICAgICAgICAgICAgICAgICAgICAgICAgICAgICAgICAgICAgICAgIC AgICAgICAgICAgICAgICAgICAgICAgICANCiAgICAgICAgICAgICAgICAgICAgICAgICAgICAgICAgIC AgICAgICAgICAgICAgICAgICAgICAgICAgICAgICAg ICAgICAgICAgICAgICAgICAgICAgICAgICAgICAgICAgICANCiAgICAgICAgICAgICAgICAgICAgICAg ICAgICAgICAgICAgICAgICAgICAgICAgICAgICAgICAgICAgICAgICAgICAgICAgICAgICAgICAgICAg ICAgICAgICAgICAgICAgICANCjw/kPJpO0qluISaeq S9B5ouBx7QVr5KZG5bm7EmTWWvPZsaqaCwWfxDCyHrOIMrAuzSGvo2DErxLH3OsCEhK7LfJ0OiHMhyIJ 0HAEXgEGMbsYHjPZWpCLHiMuY4LJGrEHcuZD6PiNInMIawGTAeXGNmOqQfKRSvCBHuJDWkDHMoTFLTUV AfHWJiZtTfOOUiHPVuFJkeFEQMJLM5ZWCuMmFuOZzh VZ5Cq5VszNI1BCv+Pm1SFT1sp8JaGDp7VeRiPZ3zdz0NJIvMQmYxQ5CtybV2WYN4ABYqWk8BBYWqMINb fFZ2FVAxARWYAzLkZ3OuvX37HSMGOf7+DWzdiaIrBwbQGeU9PLZph5XaEMl3BC0NENIvZVo9dQUfLAEC CCL1ZOunvnQtWYVQrrOpFBUrR2RalZjdOtMxLGCuUG 5qRD3hOQVfGLV9WrV3GIBBDQ1BAHAvLJZasZQeXURoEKXNQU6WVXkbTYO1HHMjxjIzcNRnXTnkBH0YKT JlbnQgNDcgMCBSDQo+Yi4IDT6kb9XsHMh7AJQkVI3fah9CCGrDNmLrD6P2kMYmA8Y6UGshSz8BLPPjJG QaIMArGNVOTYauQF3HYE8uqvV5DT6OwKUtCGNjEGGs mOBdGGk0K03poQEhFDjsIR9DZUQ+Jayla+Mw4UAIJtHYGzVODfZuBbULNYCwNlT5SsD7KSj4GnU6HiLD58 bKnaosVkERgeWY4XSY8iNZRfWTFMWV2PeUVqmH9qufA5ZzTcFFOYIrTeG28tuMUcINTrBJL3XRIzUf5Q YSJwL9HmzdXcdXqdqcGsESPsCDTKUM7SYKvhwsOwzW TclTniSE28nNvhFW3ESw1SApCeLF6usu7IeOCxKu9PLSS3RE1HITGkVYWaKUSxPYG3JJOuLvGnJZcyIE IwHZNvEES3WJLxBOPaRO4HGmUpSCXtENOqDzkvZRDoJGAtdm8AADUwQLZ7JqawRwMoMHFiAFOtKXtgHV RpPIDwZMB6BHVnOWFeZJ0NOaBfTOQrFKSiMwgjPJYo FPHzjd1AKIKxTDRtXYA9KyRgPPAqZNOgGWkySYRiRKY2BAWmEAQlNSWqZM7HVzNoYPSeQOcnTVSmGIVv XEWttr4QVGPyZMCjMGo4PWUvYSGdUZEkPRnhMHKmRIIqRWk4NMHlLRNeEU4WTeGqVUXdECL0FFJkWFAf UOPucw8CDOOrFJMwYUd7VNUwSYVbJJAfSIncRJHsQR A0FYTkAMGxCODnYH6UUvHdBHAoSZk4YzviPICkXHUvve9DCMHuMUPmNwY8VBBdLSWeUZMiPLvfJAJoQL RkELP5HCOmWWIvUR0WGfAmVPGwPoCjFcxvXDJbLLIwil6VKNWePBSsWkQ8OTSwAROpSYDfRKxuSWFoXI K3CwWtVRYuWZVwZE2NCbSzJJUiIya9VDioYVDzSIBi di7RVSUuCYInSTshTQPwHTJbNUIyOKwcOBKeHMW7SHM9RLQoESRpJR0KKjMwCHPjNuaaLHxyOURxFXQs xu0QAFRxBBKsEEO6PlBpPYGaNMPcNUyuDJHsBQQtJLW4QTAuPQUyBU7CYrXnIPFhGjP8CXqgRDKoPRMc vc1APWKyJOHgTUEzChSeRMApQBWwERfrPDCrCSUnQT XyQYXaUGVrPS2JAyVyNZAiGySoZXDdANRtBVKqit7TVRReIQJ2PzI1JsWdMTTfBPUbUGcaOHBdINBkTx U8YFXhEQAmQX7ZVoNxMRLrRNK2MRIhUSTaCRFpni3XQQBsEFB1VXC2JqWqTNXmMFXvWKdcDIAhNPV7Lz u9BKBxCFLiHZ9RBqMfTRScGSrcUUMiEBTjGZTwjz4V ALVrLJG2HOH4RENySMEnEKTmKIzyVXLyRCW8KvwnZBVpQMGmAH8AXmZxIMUmKRs9YdrbNUWzDUZyvb2L IECsCJR3NRZ8IFCiXIRwKAUhLNzqIKQjZKUtDkVrAXHoAVHxIA0WJzRvFPFxWJU7LVHhZXUhIBTldj0R OMEoPDU4MCG9VYGfWADmYYOcINsdMBRwRKVuYhVlEO TmMJIjQQ4TQhEdQUWnVJU8AvOsJHKyVYLuje9BBXIxQAM2FjNwKzQbWVLmKPVdQAnxUYVrYLLdQLdnZA LwQYUbXE4PLjJlHZVhUAX8EUnbREBhMXZhmq2SNJXyJRT7EZRgMVOvPYVcWLIjTSvsZXXnLHE1WAkcZF PpVCEjUL0WIaNwGNkuXUQXJtj8RYzrU3z9JCL3VZ6E H9Ttb8WyCUqcBMQHBJtgGL2gbtJxMDUoUc4JL0sXBng2BhC3PqZbNDEqEMCkF2QfOKJxRkW6XiBhWGDs Y1XoKv9mNAnvPoo8AnW9VIOaOuWwISV8UDD6WHWcGHLbVOUmSSK5RdZkBQ5PPu9MAeN1GTC3qUGlTn3M KWL6MTRJOcHgAS1APTm= ID Date Data Source [id number] 03/22/2021 03:46:54 PM EDT [facility] Name Value Range Interpretation Code Description Data Marifer rce(s) Supporting Document(s) Consultation [facility] SSCTWm3pHrVGTpGo45/GLQgnRRSap9KmLHasPFd1KGcrUDBrU0EzHVW1aP6tWTY4EInWLsAqIjHmJGS0 lbm [file] clinical document improvement educator+FNPqcKQkHEDkKepGunHl6xA4yoOOtzK41XY8fY8FecYWF6+dP0hh9MqAB+29op5d2oWhR4rNBSvR [file] ICAgICAgICAgICAgICAgICAgICAgICAgICAgICAgICAgICAgICAgICAgICAgICAgICAgICAgICAgICAg ICAgICAgICAgICAgICAgICAgICAgICAgICANCiAgICAgICAgICAgICAgICAgICAgICAgICAgICAgICAg ICAgICAgICAgICAgICAgICAgICAgICAgICAgICAgIC AgICAgICAgICAgICAgICAgICAgICAgICAgICAgICAgICAgICANCiAgICAgICAgICAgICAgICAgICAgIC AgICAgICAgICAgICAgICAgICAgICAgICAgICAgICAgICAgICAgICAgICAgICAgICAgICAgICAgICAgIC AgICAgICAgICAgICAgICAgICANCiAgICAgICAgICAg ICAgICAgICAgICAgICAgICAgICAgICAgICAgICAgICAgICAgICAgICAgICAgICAgICAgICAgICAgICAg ICAgICAgICAgICAgICAgICAgICAgICAgICAgICANCiAgICAgICAgICAgICAgICAgICAgICAgICAgICAg ICAgICAgICAgICAgICAgICAgICAgICAgICAgICAgIC AgICAgICAgICAgICAgICAgICAgICAgICAgICAgICAgICAgICAgICANCiAgICAgICAgICAgICAgICAgIC AgICAgICAgICAgICAgICAgICAgICAgICAgICAgICAgICAgICAgICAgICAgICAgICAgICAgICAgICAgIC AgICAgICAgICAgICAgICAgICAgICANCiAgICAgICAg ICAgICAgICAgICAgICAgICAgICAgICAgICAgICAgICAgICAgICAgICAgICAgICAgICAgICAgICAgICAg ICAgICAgICAgICAgICAgICAgICAgICAgICAgICAgICANCiAgICAgICAgICAgICAgICAgICAgICAgICAg ICAgICAgICAgICAgICAgICAgICAgICAgICAgICAgIC AgICAgICAgICAgICAgICAgICAgICAgICAgICAgICAgICAgICAgICAgICANCiAgICAgICAgICAgICAgIC AgICAgICAgICAgICAgICAgICAgICAgICAgICAgICAgICAgICAgICAgICAgICAgICAgICAgICAgICAgIC AgICAgICAgICAgICAgICAgICAgICAgICANCiAgICAg ICAgICAgICAgICAgICAgICAgICAgICAgICAgICAgICAgICAgICAgICAgICAgICAgICAgICAgICAgICAg ICAgICAgICAgICAgICAgICAgICAgICAgICAgICAgICAgICANCjw/zMCeI3adlWBrysU4N6stDn8ICs8Z AF9sj1ChHZQzIYwdqkQwGkfLJtEjOGMmQvtKTwk6LC elUC7GzZCxZ3AfH7UwMZpeJR9PWSJlBUZmbCFuCBGdZVNrKuE7BARvJNtkSJ6UrFUrLJmaJBAsKUMeHt YbLOPkNDWvYVRgVMZfVMWMWZBnPWBvJoOmMMOlCYQsKHpcWOLHEYD5OVSiKzAqIAQlGWMdPhFzWKAGJM L0JHAzLqFcTHxrKP8Up5VgaTMaDO6LCv8VEwIkDT1m ge0LXOFvHUZzKflTIoi5PPkiNS6WsHBhfCK2TnMgWAPHEpBgM2aag1IvBOmsKFDWKVvlMZ5Wv5CljVZx DQo+Fn4CPR2uf6OgRCg2ZsRhUB9bzh4SLRjLJaDxL6VfjPsqHSIrsdF8yUGlDCS3WMwib1PxGFOiSNWH OMXntSG9UlB7TyHvGzZcUHZ1DFBsVT9hYHmaRN8YBU C3ZTcuMLDzGNExW1mFTdYlFCSsCwBckFwlSM5ISaLdL8DmjkDumRV7UkEjQTZVEn0+DQplbmRvYmoNCj Z5XWEzy3EhYAd5CT2DGXHoGWwfSU9JFYOgxN8iDAioTJ4GRsO2JZCcBGEHQrLtF97uuBNiARe2K2HrKz VkZGVkRmlsZXMgPDwvTmFtZXMgWyBdDQogID4+ID4+ YAkrZG0DXUvidyBnJGZiMc2LJPQxWJDjZU6pGVOzXZMmG3B5uMfoQMWRFvJiB8yycygfQV7zGQEsM207 xQgbowZbRJG3QXNiIn6FQCVpRYK2CACbbIXtUSLfBZAKXBwcBS0RuKRxLIZ8dP4iSBezARJqFUEgB1yW WyGwfJceZO81bJgbdeJwpUJkFGr+Ob4TPJ5ai7NsKA c4vgRqSVpkBPX8KHbxFTFgTWHzVGVuTZU0VCS9GVOHYpJeQGUtCMBtFNasESVzGAOgyg1XVYLqQML4XI p8HLNzJGUlSJZdRGnmWUOaEAJcIOG4YIOwTNNhUM9WFrRoMZPyDOJlYLziPVNnKFWpyk0RBIVnUVMbQu k6SmVuMPEjAWDdAZzuRDLqFGG2QBF5XVGfURJjNZ5S WoPiMFRiJQj3EJwpDCHrWEUfmx8QIJMfVTAiVJZ7KjIlTNWuRCNgJBnwQPGaMCAyQWo0XABgGEGkCT2K OtFvCHQlCXEcUTTfYAAmHIRfxw0VFNHeZHOtMyx9FNMiNYUsRAIwAMaxDEJnWFN2VKW3IYPaZWDsVU5Q LdUdUCCgHQN8VBBeOHZhFGAnyy8OSNZmIBGhWsLiQZ WrLVCyPNZsAPucICZzSWJ0SQI4ULXsYKOzKK7BFaLbDNPoZRz9GYQqQRAuOIQbur1YWHDoVMZwNcSzPL LrLOCsNIZmYBspUTCpYZNcAnO2VGFnKAPcGK2EHyJeNIIcYeY4WDLvEWFvERZtma7NIZBxJPEfZkRlTW DjOGGjWGIgGFcbRUHoEHEaAnc1JXRxDEVsWP2GUuFz MZXzFdP8ADDnTOIbNBRqsw4ZMJMpPFDyRAWrLWPmTXXqVCIxQUdmHFTjAJW7TzU7RJCpGHRuQE6GXdPz GNAwFyAtHMRmLOXbSIEjgr7RUOHqUXKsYOE2UmJgQAPbMMRcJTsmPGSrEKD3KeC2TYLkUNDgWW2ZPpYn BJQdJzW1RHVzYXMlPMSvzy5SYWBiFIArKpV6YeKsLZ RcOUFwDPmpJRFbMLJ0DfJ7XBXsDHKqFJ7IOdDaAYIpOea0DVmpRWQhCSArzt5NJTOsGNLsNQHoZQKwKS DrWGOoKQueEYJqADS3WWg1OKSjIXZgWA3BCdZuEXYyXhofLVSzHEUsKKHumo1IKRFuKJBeESP8DRPvKY SzTOFoPBjtFWAdZNSlVzB3XHBmPNLxCM3OMpNfWBEr YNJ1DkpyPVOvIAIjjj1GBTDkZXF3DJygTLYsSONlHYGuHGdqZCKhQRRlIYB9PFFuKBSpLZ2PJfRhSIJg VEY1XhRhJXVwMXPzxy8XTDGlDWW8YlR8KLNsMANdXLNrGGcxSEAnHYRaOCmwMQAwATSgZG5DCySxDHDt CKVkUyGjLBWeGFYlkc1JIRFeEGT3Mew9MrVgSSCkID OjVPdoDNKyGPS8ExL1AKRmLOGoYU9BHoRhVPJlCHs9GnSzDGWwAAKaau6TQCHwFPX7HTI3YhEnBJSmQW FqZQrcQQKsNNU2PZQ9GGXoJMDjIE4QUdXvTODsTLfuOiEcWIUhFMAgho0FBEWbOLM9YAF6ZWFiNXNeAZ IgBBnuEVBkAAV9EJR4JJIhLGWpEL4EFuPhCDIbHhQe CpHwYQLjWSOoex7LESQnDQZ2XAP1CjMoBKBvTATtBOjzTPDdFNEnRyC0QFEaWIOdOA9BHyPtWPEkPcYb UXufRGExGXOoew6FPVBkNRS4OqwgDJUaVKWpJMWzNDkjMYTtZAEtVrn5QNQwMJFhFK3HHfMeGXCqCjY4 XwKzZWNyHIFcst3XiUPtdJpfpm6MYHoNOx6FlAieCE N3PCsgWj6qjVI9KURdQBZDAo5KcgHhTGUfRYRKJDpbHXLgWXCbRRP4YHLmBXuqSFMkVDIxJwP5V7VoIQ t0EHPaMJD8KcF3GmG9OGB6YSS7SDInZsD0XIEdZNN4A6E2PvQ4XFC4GGr+AN0xCOk+Kp6Jf2EjkhB8hx UgDIu6ToK3Gj5BZUQMW7UVOi== ID Date Data Source [id number] 03/22/2021 10:18:35 AM [facility] CT CERVICAL SPINE WITHOUT CONTRAST [id number] FINAL RESULTInterpreted by:Braeden Macias MDINDICATION: 31-year-old male, trauma.TECHNIQUE: Axial images of the cervical, thoracic, and lumbar spine were obtained using source data from a CT of the thorax and/or abdomen/pelvis performed at the time of this examination, as well as dedicated imaging of the cervical spine. Coronal and sagittal reformatted images were then obtained using the axial source data. Automated dose lowering techniques and/or adjustment according to patient size were utilized for this exam.COMPARISON: None.FINDINGS: For the purposes of counting, there are 7 cervical type, 12 rib bearing thoracic type, and 5 lumbar- type vertebral bodies.CERVICAL:There is straightening of the usual cervical lordosis.There is no displaced fracture or spondylolisthesis. Tiny heterotopic ossification anteriorly to the C4-C5 disc space. Incomplete fusion of the posterior C1 arch. Straightening of the cervical spine.Vertebral body heights a nd intervertebral disc spaces are normal. There is no central canal or neuroforaminal narrowing. Multiple prominent cervical lymph nodes.The evaluation of the study is degraded due to image artifacts.THORACIC: There is usual thoracic kyphosis.There is no acute fracture or spondylolisthesis.Vertebral body heights and intervertebral disc spaces are normal.LUMBAR:There is usual lumbar lordosis.There is no acute fracture or spondylolisthesis.Vertebral body heights and intervertebral disc spaces are normal. There is minimal posterior disc bulge at the L5-S1 level with mild to moderate narrowing of the neuroforamina, bilaterally.Prominence of the left renal pelvis. Sonographic correlation is recommended to evaluate for possible hydronephrosis.IMPRESSION: 1. No displaced fracture or traumatic listhesis in the cervical, thoracic or lumbar spine.2. Straightening of the cervical spine.3. Prominence of the left renal pelvis. Sonographic correlation is recommended to evaluate for possible hydronephrosis. This document has been electronically signed by Joel Hooks MD on 03/22/2021 10:16 AM Name Value Range Interpretation Code Description Data Marifer rce(s) Supporting Document(s) ID Date Data Source [id number] 03/22/2021 10:18:35 AM [facility] CT LUMBAR SPINE WITHOUT CONTRAST [id number] NAL RESULTInterpreted by:Braeden Macias MDINDICATION: 31-year-old male, trauma.TECHNIQUE: Axial images of the cervical, thoracic, and lumbar spine were obtained using source data from a CT of the thorax and/or abdomen/pelvis performed at the time of this examination, as well as dedicated imaging of the cervical spine. Coronal and sagittal reformatted images were then obtained using the axial source data. Automated dose lowering techniques and/or adjustment according to patient size were utilized for this exam.COMPARISON: None.FINDINGS: For the purposes of counting, there are 7 cervical type, 12 rib bearing thoracic type, and 5 lumbar- type vertebral bodies.CERVICAL:There is straightening of the usual cervical lordosis.There is no displaced fracture or spondylolisthesis. Tiny heterotopic ossification anteriorly to the C4-C5 disc space. Incomplete fusion of the posterior C1 arch. Straightening of the cervical spine.Vertebral body heights a nd intervertebral disc spaces are normal. There is no central canal or neuroforaminal narrowing. Multiple prominent cervical lymph nodes.The evaluation of the study is degraded due to image artifacts.THORACIC: There is usual thoracic kyphosis.There is no acute fracture or spondylolisthesis.Vertebral body heights and intervertebral disc spaces are normal.LUMBAR:There is usual lumbar lordosis.There is no acute fracture or spondylolisthesis.Vertebral body heights and intervertebral disc spaces are normal. There is minimal posterior disc bulge at the L5-S1 level with mild to moderate narrowing of the neuroforamina, bilaterally.Prominence of the left renal pelvis. Sonographic correlation is recommended to evaluate for possible hydronephrosis.IMPRESSION: 1. No displaced fracture or traumatic listhesis in the cervical, thoracic or lumbar spine.2. Straightening of the cervical spine.3. Prominence of the left renal pelvis. Sonographic correlation is recommended to evaluate for possible hydronephrosis. This document has been electronically signed by Joel Hooks MD on 03/22/2021 10:16 AM Name Value Range Interpretation Code Description Data Marifer rce(s) Supporting Document(s) ID Date Data Source [id number] 03/22/2021 10:18:35 AM [facility] CT THORACIC SPINE WITHOUT CONTRAST [id number] FINAL RESULTInterpreted by:Braeden Macias MDINDICATION: 31-year-old male, trauma.TECHNIQUE: Axial images of the cervical, thoracic, and lumbar spine were obtained using source data from a CT of the thorax and/or abdomen/pelvis performed at the time of this examination, as well as dedicated imaging of the cervical spine. Coronal and sagittal reformatted images were then obtained using the axial source data. Automated dose lowering techniques and/or adjustment according to patient size were utilized for this exam.COMPARISON: None.FINDINGS: For the purposes of counting, there are 7 cervical type, 12 rib bearing thoracic type, and 5 lumbar- type vertebral bodies.CERVICAL:There is straightening of the usual cervical lordosis.There is no displaced fracture or spondylolisthesis. Tiny heterotopic ossification anteriorly to the C4-C5 disc space. Incomplete fusion of the posterior C1 arch. Straightening of the cervical spine.Vertebral body heights a nd intervertebral disc spaces are normal. There is no central canal or neuroforaminal narrowing. Multiple prominent cervical lymph nodes.The evaluation of the study is degraded due to image artifacts.THORACIC: There is usual thoracic kyphosis.There is no acute fracture or spondylolisthesis.Vertebral body heights and intervertebral disc spaces are normal.LUMBAR:There is usual lumbar lordosis.There is no acute fracture or spondylolisthesis.Vertebral body heights and intervertebral disc spaces are normal. There is minimal posterior disc bulge at the L5-S1 level with mild to moderate narrowing of the neuroforamina, bilaterally.Prominence of the left renal pelvis. Sonographic correlation is recommended to evaluate for possible hydronephrosis.IMPRESSION: 1. No displaced fracture or traumatic listhesis in the cervical, thoracic or lumbar spine.2. Straightening of the cervical spine.3. Prominence of the left renal pelvis. Sonographic correlation is recommended to evaluate for possible hydronephrosis. This document has been electronically signed by Joel Hooks MD on 03/22/2021 10:16 AM Name Value Range Interpretation Code Description Data Marifer rce(s) Supporting Document(s) ID Date Data Source [id number] 03/22/2021 10:03:43 AM [facility] CT HEAD WITHOUT CONTRAST [id number] RESU LTInterpreted by:Joel Lammle, MDSahir Quraeshi, MDCLINICAL INDICATION: 31-year-old male, trauma.TECHNIQUE: Contiguous axial CT images of the head were acquired from the base of the skull to the vertex without intravenous contrast administration. Images were viewed in brain, subdural and bone windows. Coronal and Sagittal reformats were constructed. Automated dose lowering techniques and/or adjustment according to patient size were utilized for this exam.COMPARISON: CT head dated Date. FINDINGS: There is soft tissue swelling along the right frontotemporal calvarium. There is no depressed calvarial fracture, acute intracranial hemorrhage, extra-axial fluid collection, cerebral edema, or midline shift.The ventricles and basal cisterns appear normal.The imaged paranasal sinuses and mastoid air cells are clear. Incomplete fusion of the posterior C1 arch.IMPRESSION: Scalp swelling in the right frontotemporal region.No acute intracranial hematoma. This document has been electronically signed by Joel Hooks MD on 03/22/2021 10:01 AM Name Value Range Interpretation Code Description Data Marifer rce(s) Supporting Document(s) ID Date Data Source [id number] 03/22/2021 10:00:40 AM T [facility] Name Value Range Interpretation Code Description Data Marifer rce(s) Supporting Document(s) [facility] DRLDSe0sYtNYOsOsl4QiUvJcWJIqNR3ovzx4M3Q9zNYaR2YxlCRcg1vbK6QiP3FrHQYaHPBEAT6CzXSg jb2 [file] Equine [file] kMoq998cjVmsrsd3tgkf09tGE17Flzq+tax expert+J+3kp5q2LXjzQATTpK/2n/ylq0vRds9FCYg7fCVw+fvKR [file] O7jxOUsb+animal cytologist+UYGcVUkPYSPVGBoejTowUjNb3AJVwkPJpWat4NsKV6OE/hI6B4uwACaPDEmv6VCZbxP GI7TmDvftn08jbpev4SspLDG+arlsFXYkvuLDE1ji/sYznjnkAuLZToa5Slbvp309X82054I9p5ol037 set5puw8oAX+udXXTuyRhWX7Igfkb6psD+89a3rwJS FWo0kx5Xp5+ygIzughu1Okes28P+z6P+3Xj4nE9Mb/vALMOmtqtmFfH9mR1IpIKAVwVocmomISvJiRaq tkDJS93r7cChAP3N6OHjpeqMYt7h7pBjEJ9H2cqgUwX0i3dKDg7afdFIu3ex6nXfwbJ6Bc+rhZ5H58ni V/Y3qrfMdH9dsFTyg2kolmCDSs3g7iBHXE4U8JMunj LFBk4c4vHBPX4eh+rm3FKIvSrA5hg//JS9zlzi1A25IMV2U0ZQ34VxUrq98l0Swm2ruz4oxrF8k+8ri4 S+2ZgNkBztC5+i13Qjvdf51hx6zxl+bnrblK8u/Gh7hGMT4tR35Wt2g9LVaF/pKS/oV+uyn4yCnGi4wB 490up+pUH9jw7gZAPfxa/Nq7zZPtjtoIk0ZZH1LJbh xMr+EsNabXy3Ru6u6ZmPaf+/JuFfv4C66Lm77ehj72nrpTJ+25dOJ7B/KyHMdS794f6r+ru9zUK/x0gL aC469f60G1beCV2Mb5SqjBSll9f/YK91rf5xRg7ZZi5lLtliGCxyCIdINzdpW/N6n8ftBreok1I/UM9A PQq9Qr/e00PzUJhjVFvP8xKy5J/CI9lxuD+ffOt2vm Ey5YpqB/X0jTmM9XoNMjG6k8p3GoX9uI09z72lUJ7Iu6D74mt4TmymGf82lDaXIL08/GzQN+gFeoG+Q9 +vL4PH9LN9sV7Qh+H5Kaxrhbj5l36gzwJXosOmospeQvh7Ru6VOcrbujCbC6tknl+bKgr3x7I/G/qzTe ig6Wg5Lk/QO/SAlabgD0173IuXi7r2P8ovxrYD1Maa p2pjeYnrng1iurxsqJXKx2nZQWhT1yL58NFg+YJ+pU4pJ5xXI+sf7ZwqQkidhuDnNnxgG6e3jyr0Ly9B jtTa5Ya5aT1Pt4wx+a45bcKxJi9LbykF+ga9QC/Qd+z42ZMh4g8wh3hKH/QT+gm9QW/QO/QO/AFi5H0R n/e+oKfcoG/QC/QCfYe+Q1/a7k1R2WCHnbM+Qj+hN+ rKtqB0xb9H0V2kg0U3wgZB3folm0Q5quME0ljdg+Y2Ga4r3XtLqp/g+Qqer+K9Ia1vqM9O8pfaX7mnM6 /u6M8d/ejeZ6l1678+3NGfw7+KKY/jpdyUu28m2Q0nXg0l2ieBe5TTaEU3VS726xHA4/qJ81pgA/5V6M O/wcKp3gLVJKA00T+bTBAyM7pbS1uCdm3jr+FfZbDu 5FfUIHSta0aF8ZMA4v7K4Y6BvoUh4Bozp0+KesK/ubKIznR3vFIMpqN5qnrR6XXgxaN2lgye+Suw3f9z r/JaaK+ibCr1UzxdkV/0Lf2OValrc39PvgEviU/Qd+kG1yd3u+J4PN/kn42VkhIckG//SuBfSfhXecyq 48O/UlLxm78C+FeS/lWWoe+P3yVW/qsMc2Xru+K93v 5V/GftXTldYupk+6b3onAv/6rHu7/9q6Pf/1NfEl03z/h/7Nyj1s6FlI4D2q3ugoX+n99sCiRet//q1b h9/7d/JRl8+Agv1mLzy/xqr8S/478Yp9qr3lBR6F8JNC7161DjlngcAls++hXOQTeq0UpfjzWB6rrh+9 0BCpgll887T4D432+JtXbpU9v0/knbRPK34a6QIJC0 +1eSK/+6d5AP2hgfL80yH3w/usLO27/FTDipo0yivRWR+xv+NfPyjP9e1B/F/aR/euPwh5P/mlmucTX8 u8Pngtgj/lWMsQvjc/hXeQzG5/Rr8vvfw9w0G/vfvId/leUG/k6BV13i8F3l5DT/X72v5c0dbL6Pz9Lb 9UR1Zw22/X/geowMBz9Jd7NibhU29bn9c3Mm3HlxN5 +x+3MP/irLHfoO/YB+QL/f391Xe/HAGW7ZT+aJi1yet1j03A3XI25hIP68J1jCN94sLr1oW771gatllP zg+I7jO/QD+aWi7b5Z9JD8+asoF1/Nufb9Eob5WP10fYUGj9q1JIhd58sbV/h84vZuLRf5a1Fyk79F3r 21LGuVO/Qd+cG9kD7n39h37NyeIp9G5Eq6Hn/Q7/Za 8U8w3suLpfJ3B+3uXiaW8ji+4THcr37/Km2+/atTHtDj+Q483+1vFa4az/lO1i0Z3d63Wl55iST9aw71 1oVyvUda/PPe/9YvS766venchNV1gdfBze+KcS/2Yuw49jbYQ7t8XU/3RBjwD8kCM0eQd8r+bdf63+9a //s9/CuNY/wZ/7vWvE/B6fs2tD+FPi/oG/QN+uA3NM lg2W93i08RJ5PE7ZR3+h/s4K86+Kue/SCn93qYjrrC2cDJvyu+rtsFfYO+QS/QC/Qd+q16tZ2Li9Rv0o 7frAd/wrmVb01yqYg+Dww9dg2+qoO/5cOhrZ9Ra7phr55TW5gxmzvny/N1PF/N06Y7H7nuiUvo3E9PFD qDHs/Q3NxRz7jbzm9ZAytnnCSkydL+QS/QC/Qd+g79 aE65vb4+qoO/3zYuHpvtPx9ov4/xq2JF6dtvQcOPWndyPU5TW8DJ+wI5e32sJ+q54H22Bw2DWuBE8Rz6 Y1gW6qD80M32Ib/HHeEQhFIgnCKH26Sz2Sr2Id7MijA/oB/QK/IPaqO9daMrP8rIg4M15W28jl3p5kH+ aoC/MjGuDodmSr8tEV5/Q+v2WyIxa/xJMleSqcE2xF 1witd8ZXySVo5DvbMw3sn0x4pk4Dt3G/jAwYDpyAy7P0oqj4gyncuo0De2xxWJ7aH3Id9geqvE0Tf7Br 9Fuj8VI8J6pXs4t7K9V+6xGM4N8N+yHP/1Bwii7XP8bm/W2t02mjCYE0R24X45l55tM4ZwtLi2NqoglO +wuEh7SdjrFlmUcP0EPrixHM36OR8jbUWPrpEd6Xik 9FhKozWfMsK/mqAc1ocyA/yr7b+N8K+n3ICn1w5+3wj/6pRxfMfxHccPHD+oJpuU2gK/NjnAKD0vlolF 6SdcD0O/GpgfHOCvhhVft/eDJI+xv6FDpbtwWOjXwv0A59Y/4ic0zq8S2yZPpw544nL9yRm08TgAvUwn s/cTCxNR7z7e46bwBd5u4Mkx//xx2rvur6bZ7CpjY/ LBrlAY0d8pE93kUgnZjU5bH0w2+NjhaG/0P9qqO1yoZe/nn9r3fT/QN+il+wK1X1icXL141UH+1SlDX3 n6YOc3Gied3FsjeQySO/rzwvu7/jq796c3KxTmeF/obO52cvrd4/3Ia5t8v3eBsy5/7g0d+W+omB/c2z uN11h2PGCyo8ep5GQozLjruQo/aSerf5rrR2++8Ypr oChUkDcyzYAo88J2+UyLY+ewTjPkyyU7mkcaf/lwItl6kDtdfJ6K7/l5bNz/sUW43Fkqyxe7cCb2+1d3 NPko1/3c/zX2utJHV/+5t24k/2u7dgTcmtig3Rn/1+65A09upMaq3+tC1nnh837n+O2gCYvVu6XZ+g1t xbdrq++Rwr9S+FcK/0ql/RbXze8FymhoCi3vi/KMqy s0Hxb4S2cbHompNmU/2v/4KvW/r+HaecIu9ah+9+xGou178Tq++NgoO/QO/YJ+sV33g1OvwKSmV3qS19 Krp2Evm5Qdai80jmG6mT9whSPR9PP8Ow6X1vE10Q73d00tNg1+Ksqj+BwN/wiKm27v55Agw+P0Oj5rjw Hq18T12wO6ByQ9hHVd1UYmiRCg1JHdcmZGVVP+t3dk WQ+fpsFfnXLpg7+Qkch4amm35DGtjf0ckUk74+Ip7/bG+8g4r3NGdsPZSK4swhZE6d8ZK0bKE1F43M18 m01cN3Sf5rd1fE9zrlh0l55TZ4Gw5e9p824GZCSrM/VMkjPt5D1p89zka+8ccX82p5SNAr1D/bd/9ZTr +W7/WrsZ1QpZpV2a+dK9i+Uc22kZxFwbfnZ9hgVO2T +5t4EcdsC9ifo4DUyBCI+D9HwD0mZrKph5dKcC3gktfq+t5o80/KsYM4O/inHVy3/V6D9rJJLlt5Dk72 OIo62Ek/vO052drXWc09GjoW9QNtNN3Vx/UMFfKfgrBX+l4V+NLGuVF/Sr9Kv+93XV/01tJc1L5gL/q6 w7NlF1oL9Q/YB+QK/QK/ZY2359S6VxeAoH62naIV/r Pw8p5Wm+5cKrLu34XpJKxiwjX+d85M699xhtYk+A32KeNpfO+1vZW8289V2YP+5/QY/2tvr/na3+fyfW I37Zm5j16hjrC+h60G39Xr6AWxZM8Bvew706novUfxEaNP/DG3wFuR6lvvpKmlLQC/4KlXE5k138s7o+ 9ikx5e4y/KsZ/lKcL2u2C5wM1IR5Pd1G2yJ86S63g1 5BX//7M/yrU4a+Qd+gF+gF+m21ygftffIEV5loFPyfM+in4JC6f06rp2nCoy9Jbu6CsXFZq+K4Yyylmx cb/NUpQ4/2DrQ3+CpMvp7bT+py7EnJE/39wT4X0ErG6/custodial/oan6fW/1LM7rmdJfsw2JN/P82g4IW1n2 g6NrixGcuGwTqs1j7k6xgeF/hdGq0cQb9m2fSjXd2f B51nrZmfFDPfhOhFY9+I0v14a6haB/PQkfY9ux2C6Y3m03L2b5BfnYlwfoYxELv81A3Lpu1omGM0qckE +ArYtl0C98WjS278yEkrbhZz2jvU/RYa4OFHA+Ffxbsc/mG4yTs0JhwAc285zw6Yu8c/4Az/3rMnfE9G bvEboFrOQ2Uk/ZNxM5wO0zMnyJeyL4tY1wiaWccOF3 vwu8ivFj0oZ/hXE/9QZXJ8lj767i8ow8ai1+SI2Nd9Ebggjlz6s4bKwoLvK/ZV8D08F6jHCN/j+IV6io +3d3UR1zNAR+xnB0Iprlpb4hny1NzvG/QD+ppfsKvmF+iBXZdcszt4Ib0B17cfut2S+mv+cOyGSng5E7 sN+nS3yXwK6qyr0lh+4/gB/YBeUY+icxd1kT8d0wFw P2it+lYLn8IhSAd5e9/hlems2vZ/8et8i9y/7yu9np1i7cq0ET+1/0lN6n/wuMNClcG5PjP5okjQqE0C bv/w8Fmdo0f0aLmxt/OTY/6c7i9a9AA9a/zSx/zkBojc5ykw8ctLr3rtkqy/2G7/5hHe8aczF3NLyrhM u/7rOS4km85xmVzuzul0oVaAo/jQCl02SWk02/5Vcp K2/nad75u3q9Pa/KsrjkF/7ujPmB+0jucb/aWmv4Js1+VbVEADDl7ke5XknrbLvqHuGP5+cnj9kD2Vqf Pr66keRcP+W/sB7ApDny54dt8ouMh/qBKdI37vzw++GvtKG69ck/d7Ji10E9+gr/WTprV+0rD+yoK/2p yDBX+VZYFeoO/CE42iRoic3ACkkUsoI/QTeoPeoHfo Ywqjs8dWT2G2Nn4zo/xBm0XU2er9Sg1Tmr/uyBx6Fk1osC+zsr1bhHY/RfNeA1U0vIWO5m64x506z8L7 4JgbmpvXb7phgfpSmyTlM/NJ313YjkHI/hfcoIk6YANA4EESV+qp/i6qlV7JeCAq1Hk2yhfk774A8/Zu Sb026t6aRexMgJJfiQ9+1rxfKEM/eu2X6vww12oj6w /yPrd/sS8Heh0xxTbok7zlkWu/FVyirVoPbNu/DtNpp05F/XnV+utxpH9H4x0L4xl2LwRG+tq/YAvj1S p+5kbgj2yLb2FM/CMi8osG87amVY3je/lSs3rz7Gu+9/2q/1+/6v/Pap3CND/o2D/o2D/iuIfk65OuhH xkg10ud/oe+WXQG/SO+6n/E48B9GZ/5Fh/5Vh/5Vh/ 1s2cjUSC829m034l823f687a768l439j39+0Idcf4Kj8OU/+lbf6X/G4kIn1CK/irvCZ7hx+ykWgF+g7 9M684f1q/DAEb2BgDv3P5oHjOmru1Sb2Rn7UvumoU1/l4K8c/HFGi6GvRm8+ypO/jyB6iI2Uogga48Wy ZlOJsagx68We+Leighann/6zOo3vf6qMvDtdgA7/l4K8c/J UPtHegvQPtHcXn+Kj/mK5LaLB/UT/aO+r/14O/3vWRC3W32DxPDE+D64i2igcpw3d+xoljjH5A1vj6p4 I/64B+QK/QK/Lnm85nx2LEs5YUc+WU22y0rgxdM/Z5T07kcRKotI9Ss1cp/R2r52J2bG/2sZa9LO2n/Z BImMu2pc/b31mi1CzyoV02+CsHf+FZ9mnaYieHZsOj dx6H3itI1R8Nuo+Ji5BKxvc0Q3P5LKhksu0P7rkNr3Gk0WLlF9lm8UC11/L40ahO3X0W24cJ+UHH/KBj keS15pIdtw1IAzSV39bj/XVDPfW/7423Ft1TGy69xZ+Iz+CIz+CIz+CIz+QTp7aPcsYiaB7Lc2/afo6v 2p/ciS7jvhc4D/5otiJ41a39/GfNppST2o8QSyvr/O TC/gK25sbNniL0qeIqxfcznl7Ito3maq+1UN5wTJ1yVJQxigBfKtZZ87t7Klww0CjoNrnutmu+1tetq9 mCdYtn58a0R2nMSJOijBI9reIlj/Bnro11tlPjGvv+boV/egjj2dJuM948zM6F3tQ75D19IW6eQ5ogGW K78Mt9rQ4Q5C5zEU6CfsgXXSothsI+fWF9+5IJ/YS+ 1ngwweKiWmaNS01o6Pb08+o1/3u3hh9JmzU2r51mu/XPqxc/Alejandra/uMK/6e03l3n1lQH3m4tcoHM/FXuo 1/avetaz/pd2sqsT471/9Xp/F2yluh7gpWY0f/WCPv8euw2r746t8ALjkJGvnGz5coHfhvoOsc/y2OsJ 9/7rdftXr/6x67/9q/ml1BE9e8J7+i7f+8ea3Ns5Y2 [file] qQ9nEhaZtilEILLXflKMaYQKRf0+aMi+ANJUM+LC/Juan Diego [file] AwMDAgbiAKMDAwMDAwMDQwOSAwMDAwMCBuIAowMDAw QPOlMZKzLVOiVYHrKK0bAuWwHDWjHKL3CPFeGORhBVGvbsXXWPVqLVQrKYe1GWVlSTThUQKmVJloDTVh PVKtVPF7GHDrIXSzFR0cLhYrMNFaVZY0MqOyBXFyYHZmkgTWKNAvEJTrQXF8UbRtUANqHIPrDCxwGTBk PZJoMMalVZUhVJYsQM3hUaHkCWMmJQYnDKmeMGTdKB RyfzDJPFJlWDIiKEGiCfWnDSNgBPGrPJmrADPoRNQzMCPqCOSdUJFhXP1iZxEsWFLsDLE4EWmmPANtKT GttxXOBDVqKWHmPHmsSGDuBVLvHZAgTJonHDAuQMWzTAO8LGBrPJHdEX2mXiIqWSCpJZMtKFSeMqU1Oq RhHtWVaXPutPvussh5WMruB6r9AXVmROhmGP2axdXf TOLiCvtuEx5nlPV2VTSkDgiNBe2Mu4UiziJ7mfFxLqQ8FUK8LwFdHM6S ID Date Data Source [id number] 03/22/2021 02:05:00 AM EDT [facility] Name Value Range Interpretation Code Description Data Marifer rce(s) Supporting Document(s) SARS-CoV-2 RNA 2019 nCoV Real-Time RT-PCR: NOT DETECTED [facility] This lab was ordered by [facility] and reported by [facility]. ID Date Data Source [id number] 03/22/2021 03:30:56 AM EDT [facility] Name Value Range Interpretation Code Description Data Marifer rce(s) Supporting Document(s) Specimen source [Identifier] of Unspecified specimen [facility] SARS-CoV-2 RNA 2019 nCoV Real-Time RT-PCR: NOT DETECTED 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 Patient has symptoms related to [facility] When did you start to experience these symptoms [Date and time] [Phen X] [facility] Patient was hospitalized because of this condition [facility] patient was admitted to ICU for [facility] Patient resides in a congregate care setting [facility] status [facility] ID Date Data Source [id number] 03/22/2021 03:29:40 AM EDT [facility] Service Cmnt XXX-Imp : NoneRespiratory P CR Panel : PCR ResultsMicroorganism XXX Cult : See Labs Tab for 2019 nCoV RT-PCR resultsHAdV DNA QI LENNOX+non-probe : Not DetectedHCoV 229ERNA Nph QI LENNOX+non-probe : Not DetectedHCoV HCT7ECF Nph QI LENNOX+non-probe : Not ElvlpnvyGSkUGC41 RNA Nph QI LENNOX+non-probe : Not CecjivdbHQhOUS56 RNA Upper resp QI LENNOX+probe : Not DetectedhMPV RNA Nph QINAA+non-probe : Not DetectedRV+EV RNA Nph QI LENNOX+non-probe : Not DetectedFLUAV RNA Nph QI LENNOX+ non-probe : Not DetectedFLUBV RNA Nph QI LENNOX+non-probe : Not DetectedHPIV1 RNA NphQINAA+non-probe : Not DetectedHPIV2 RNA Nph QINAA+non-probe : Not DetectedHPVI3 RNA Nph LENNOX+non-probe : Not DetectedHPIV4 RNA Nph Q LENNOX+non-probe : Not DetectedRSV RNA Nph Q LENNOX+non-probe : Not DetectedB pert.PT PrmtNph Q LENNOX+non-probe : Not DetectedC pneum DNA Nph Q LENNOX+non-probe : Not DetectedM pneum DNA Nph Q LENNOX+non-probe : Not DetectedB epavtSH087 DNA Nph LENNOX+non-probe : Not Detected Name Value Range Interpretation Code Description Data Marifer rce(s) Supporting Document(s) ID Date Data Source [id number] 03/22/2021 12:45:40 AM EDT [facility] CT ABDOMEN PELVIS WITH CONTRAST [id number] AL RESULTInterpreted by:SAVAGE Capps INFORMATION: Exam: CT Abdomen And Pelvis With Contrast Exam date and time: 03/21/2021 11:35 PM Age: 31 years old Clinical indication: Illness, unspecified; Pain; Other: Trauma TECHNIQUE: Imaging protocol: Computed tomography of the abdomen and pelvis with contrast. Radiation optimization: All CT scans at this facility use at least one of these dose optimization techniques: automated exposure control; mA and/or kV adjustment per patient size (includes targeted exams where dose is matched to clinical indication); or iterative reconstruction. Contrast material: OMNI 300; Contrast volume: 100 ml; Contrast route: INTRAVENOUS (IV); COMPARISON: No relevant prior studies available. FINDINGS: Liver: Normal in size. Gallbladder and bile ducts: Normal. No calcified stones. No ductal dilation. Pancreas: Normal. No ductal dilation. Spleen: Normal. No splenomegaly. Adrenal glands: Normal. No mass. Kidneys and ureters: Normal. No hydronephrosis. Stomach and bowel: No dilated bowel. No mucosal thickening. Appendix: No evidence of appendicitis. Intraperitoneal space: Unremarkable. No free air. No significant fluid collection. Vasculature: Unremarkable. No abdominal aortic aneurysm. Lymph nodes: Unremarkable. No enlarged lymph nodes. Urinary bladder: Unremarkable as visualized. Reproductive: Unremarkable as visualized. Bones/joints: No displaced. Soft tissues: Unremarkable. IMPRESSION: No evidence of solid organ injury. THIS DOCUMENT HAS BEEN ELECTRONICALLY SIGNED BY BROOKS BASSETT MDThis document has been deonna ctronically signed by JOSHUA Capps on 03/22/2021 12:45 AM Name Value Range Interpretation Code Description Data Marifer rce(s) Supporting Document(s) ID Date Data Source [id number] 03/22/2021 12:35:55 AM EDT [facility] CT THORAX WITH CONTRAST [id number] RESUL TInterpreted by:SAVAGE Capps INFORMATION: Exam: CT Chest With Contrast; Diagnostic Exam date and time: 03/21/2021 11:35 PM Age: 31 years old Clinical indication: Illness, unspecified; Pain; Other: Trauma TECHNIQUE: Imaging protocol: Diagnostic computed tomography of the chest with contrast. Radiation optimization: All CT scans at this facility use at least one of these dose optimization techniques: automated exposure control; mA and/or kV adjustment per patient size (includes targeted exams where dose is matched to clinical indication); or iterative reconstruction. Contrast material: OMNI 300; Contrast volume: 100 ml; Contrast route: INTRAVENOUS (IV); COMPARISON: Not available FINDINGS: Lungs: No consolidation. Pleural spaces: Unremarkable. No pneumothorax. No pleural effusion. Heart: Unremarkable. No cardiomegaly. No pericardial effusion. Aorta: Unremarkable. No aortic aneurysm. Lymph nodes: Unremarkable. No enlarged lymph nodes. Bones/joints: Unremarkable. No acute fracture. Soft tissues: Unremarkable. IMPRESSION: No consolidation. THIS DOCUMENT HAS BEEN ELECTRONICALLY SIGNED BY BROOKS BASSETT MDThis document has been electronically signed by JOSHUA Capps on 03/22/2021 12:35 AM Name Value Range Interpretation Code Description Data Marifer rce(s) Supporting Document(s) ID Date Data Source [id number] 03/22/2021 12:34:50 AM EDT [facility] XR SHOULDER MIN 2 VIEWS PORT-OR [id number] AL RESULTInterpreted by:DAMEON WolfROCEDURE INFORMATION: Exam: XR Left Shoulder Exam date and time: 03/21/2021 11:55 PM Age: 31 years old Clinical indication: Illness, unspecified; Other: Trauma TECHNIQUE: Imaging protocol: XR Left shoulder. Views: 2 or more views. COMPARISON: No relevant prior studies available. FINDINGS: Bones/joints: No acute fracture. No dislocation. Soft tissues: Unremarkable. IMPRESSION: No acute fracture or dislocation. THIS DOCUMENT HAS BEEN ELECTRONICALLY SIGNED BY DANIELLE GOLDSMITH MDThis document has been electronically signed by Danielle Goldsmith MD on 03/22/2021 12:34 AM Name Value Range Interpretation Code Description Data Marifer rce(s) Supporting Document(s) ID Date Data Source [id number] 03/21/2021 11:00:40 PM EDT [facility] XR CHEST FRONTAL ONLY [id number] RESULTI nterpreted by:JOSHUA CappsPROCEDURE INFORMATION: Exam: XR Chest Exam date and time: 03/21/2021 9:59 PM Age: 31 years old Clinical indication: Illness, unspecified; Other: Trauma TECHNIQUE: Imaging protocol: XR of the chest. Views: 1 view. COMPARISON: No relevant prior studies available. FINDINGS: Lungs: No consolidation. Pleural spaces: Unremarkable. No pleural effusion. No pneumothorax. Heart/Mediastinum: Unremarkable. No cardiomegaly. Bones/joints: Unremarkable. IMPRESSION: No consolidation. THIS DOCUMENT HAS BEEN ELECTRONICALLY SIGNED BY BROOKS BASSETT MDThis document has been electronically signed by JOSHUA Cpaps on 03/21/2021 11:00 PM Name Value Range Interpretation Code Description Data Marifer rce(s) Supporting Document(s) ID Date Data Source [id number] 03/21/2021 10:43:51 PM [facility] Name Value Range Interpretation Code Description Data Marifer rce(s) Supporting Document(s) Troponin I.cardiac [Mass/volume] in Blood 0.00 ng/mL 0.00-0.08 [facility] ID Date Data Source [id number] 03/21/2021 10:43:51 PM [facility] Name Value Range Interpretation Code Description Data Marifer rce(s) Supporting Document(s) Sodium [Moles/volume] in Blood 142 mmol/L 136-145 [facility] Potassium [Moles/volume] in Blood 3.6 mmol/L 3.4-5.1 [facility] Chloride [Moles/volume] in Blood 103 mmol/L 98-107 [facility] Carbon dioxide, total [Moles/volume] in Blood 28 mmol/L 22-29 [facility] Calcium.ionized [Moles/volume] in Blood 1.30 mmol/L 1.13-1.32 [facility] Glucose [Mass/volume] in Blood 101 mg/dL 70-140 [facility] Urea nitrogen [Mass/volume] in Blood 11 mg/dL 6-20 [facility] Creatinine [Mass/volume] in Blood 1.0 mg/dL 0.70-1.20 [facility] Hematocrit [Volume Fraction] of Blood 46 % 41-53 [facility] Hemoglobin [Mass/volume] in Blood by calculation 15.6 g/dL 13.5-18.0 [facility] ID Date Data Source [id number] 03/21/2021 10:43:51 PM [facility] Name Value Range Interpretation Code Description Data Marifer rce(s) Supporting Document(s) pH of Venous blood 7.39 7.36-7.41 [facility] Carbon dioxide [Partial pressure] in Venous blood 47 mmHg 40-[address] [facility] Oxygen [Partial pressure] in Venous blood [address] [facility] Base excess standard in Venous blood by calculation 2 mmol/L [facility] Oxygen saturation Calculated from oxygen partial pressure in Venous blood 29 % 60-[address] [facility] Lactate [Moles/volume] in Venous blood 1.8 mmol/L 0.5-2.2 [facility] Bicarbonate [Moles/volume] in Venous blood 29 mmol/L [facility] ID Date Data Source [id number] 03/21/2021 10:59:42 PM [facility] Value Range Interpretation Code Description Data Marifer rce(s) Supporting Document(s) Color of Urine [facility] Clarity of Urine [facility] Specific gravity of Urine by Refractometry automated 1.010 1.003 -1.030 [facility] pH of Urine by Automated test strip 8.0 5.0-8.0 [facility] Protein [Mass/volume] in Urine by Automated test strip Neg [facility] Glucose [Mass/volume] in Urine by Automated test strip Neg [facility] Ketones [Mass/volume] in Urine by Automated test strip Neg [facility] Bilirubin.total [Presence] in Urine by Automated test strip Negative [facility] Hemoglobin [Presence] in Urine by Automated test strip Neg [facility] Leukocyte esterase [Presence] in Urine by Automated test strip Negative [facility] Nitrite [Presence] in Urine by Automated test [facility] Leukocytes [#/area] in Urine sediment by Automated count 0 /HPF 0 -5 [facility] Erythrocytes [#/area] in Urine sediment by Automated count 0 /HPF 0-3 [facility] ID Date Data Source [id number] 03/21/2021 11:24:35 PM [facility] Name Value Range Interpretation Code Description Data Marifer rce(s) Supporting Document(s) Amphetamine [Presence] in Urine by Screen method Negative [facility] Benzodiazepines [Presence] in [facility] Cannabinoids [Presence] in Urine by Screen method Negative [facility] Benzoylecgonine [Presence] in Urine [facility] Methadone [Presence] in Urine by Screen method Negative [facility] Opiates [Presence] in Urine by Screen method Negative [facility] Oxycodone [Presence] in Urine by Screen method Negative [facility] Fentanyl+Norfentanyl [Presence] in Urine by Screen method Negative [facility] Service comment [facility] Results below the indicated cutoff (ng/m L), are reported as"Negative." Note: for medical purposes only; not valid for legalor employment testing. ID Date Data Source [id number] 03/21/2021 11:16:07 PM [facility] Name Value Range Interpretation Code Description Data Marifer rce(s) Supporting Document(s) ABO and Rh group [Type] in Blood [facility] Blood group antibody screen [Presence] in Serum or Plasma [facility] Blood bank comment [facility] ID Date Data Source [id number] 03/21/2021 11:43:24 PM [facility] Name Value Range Interpretation Code Description Data Marifer rce(s) Supporting Document(s) Leukocytes [#/volume] in Blood by Automated count 6.2 10*3/uL 4-10 [facility] Erythrocytes [#/volume] in Blood by Automated count 4.97 10*6/uL 4.6- 6.1 [facility] Hemoglobin [Mass/volume] in Blood 14.6 g/dL 13.5-18 [facility] Hematocrit [Volume Fraction] of Blood by Automated count 44.0 % 4 1-53 [facility] Erythrocyte mean corpuscular volume [Entitic volume] by Auto mated count 88.5 fL 80-96 [facility] Erythrocyte mean corpuscular hemoglobin [Entitic mass] by Automated count 29.5 pg 27-33 [facility] Erythrocyte mean corpuscular hemoglobin concentration [Mass/volume] by Automated count 33.3 g/dL 32.0-36.0 [facility] Erythrocyte distribution width [Ratio] by Automated count 14.0 % 11.5-14.5 [facility] Platelets [#/volume] in Blood by Automated count 228 10*3/uL 150-400 [facility] Differential cell count method - Blood [facility] Neutrophils/100 leukocytes in Blood by Automated count 70 % [facility] Lymphocytes/100 leukocytes in Blood by Automated count 26 % [facility] Monocytes/100 leukocytes in Blood by Automated count 4 % [facility] Eosinophils/100 leukocytes in Blood by Automated count 0 % [facility] Basophils/100 leukocytes in Blood by Automated count 0 % [facility] Neutrophils [#/volume] in Blood by Automated count 4.33 10*3/uL 1.8-[address] [facility] Lymphocytes [#/volume] in Blood by Automated count 1.59 10*3/uL 1.2-[address] [facility] Monocytes [#/volume] in Blood by Automated count 0.23 10*3/uL 0-0.8 [facility] Eosinophils [#/volume] in Blood by Automated count 0.02 10*3/uL 0-0.5 [facility] Basophils [#/volume] in Blood by Automated count 0.01 10*3/uL 0-0.2 [facility] Nucleated erythrocytes/100 leukocytes [Ratio] in Blood by Automated count 0 /100{WBCs} 0-0 [facility] ID Date Data Source [id number] 03/21[facility]21 [facility]:55:[facility] Interpretation Code Description Data Marifer rce(s) Supporting Document(s) Acetaminophen [Mass/volume] in Serum or Plasma 10.0-30.[address] [facility] ID Date Data Source [id number] 03/21/2021 11:55:[facility] Value Range Interpretation Code Description Data Marifer rce(s) Supporting Document(s) Ethanol [Mass/volume] in Serum or Plasma Negative [facility] ID Date Data Source [id number] 03/21/2021 11:55:46 PM [facility] Value Range Interpretation Code Description Data Marifer rce(s) Supporting Document(s) Lipase [Enzymatic activity/volume] in Serum or Plasma 43 U/L 13-[address] [facility] ID Date Data Source [id number] 03/21/2021 11:55:46 PM [facility] Value Range Interpretation Code Description Data Marifer rce(s) Supporting Document(s) Bicarbonate [Moles/volume] in Serum 27 mmol/L 22-29 [facility] Chloride [Moles/volume] in Serum or Plasma 103 mmol/L 98-107 [facility] Creatinine [Mass/volume] in Serum or Plasma 0.96 mg/dL 0.70-1.20 [facility] Glucose [Mass/volume] in Serum or Plasma 100 mg/dL 70-140 [facility] Potassium [Moles/volume] in Serum or Plasma 3.9 mmol/L 3.4-5.1 [facility] Sodium [Moles/volume] in Serum or Plasma 142 mmol/L 136-145 [facility] Urea nitrogen [Mass/volume] in Serum or Plasma 9 mg/dL 6-20 [facility] Anion gap 3 in Serum or Plasma 12 mmol/L 8-15 [facility] Osmolality of Serum or Plasma by calculation 293 mosm/kg 275-300 [facility] Creatinine/Urea nitrogen [Mass Ratio] in Serum or Plasma 9 [facility] Calcium [Mass/volume] in Serum or Plasma 9.8 mg/dL 8.6-10.0 [facility] Glomerular filtration rate/1.73 sq M pre dicted among non-blacks [Volume Rate/Area] in Serum or Plasma by Creatinine-based formula (MDRD) >[address] [facility] Glomerular filtration rate/1.73 sq M pre dicted among blacks [Volume Rate/Area] in Serum or Plasma by Creatinine-based formula (MDRD) >60 [facility] ID Date Data Source [id number] 03/21/2021 11:55:46 [facility] Value Range Interpretation Code Description Data Marifer rce(s) Supporting Document(s) Salicylates [Mass/volume] in Serum or Plasma 3.0-30.[address] [facility] ID Date Data Source [id number] 03/21/2021 11:56:55 PM EDT [facility] Name Value Range Interpretation Code Description Data Marifer rce(s) Supporting Document(s) Fibrinogen [Mass/volume] in Platelet poor plasma by Coagulat ion assay 283 mg/dl 190-450 [facility] ID Date Data Source [id number] 03/21/2021 11:56:55 PM [facility] Value Range Interpretation Code Description Data Marifer rce(s) Supporting Document(s) Prothrombin time (PT) 13.2 s 12.5-14.9 [facility] INR in Platelet poor plasma by Coagulation assay 0.99 [facility] Routine intensity oral anticoagulation I NR is typically 2.0-3.0. Target INR must be clinically individualized. ID Date Data Source [id number] 03/21/2021 11:56:55 PM [facility] Name Value Range Interpretation Code Description Data Marifer rce(s) Supporting Document(s) aPTT in Platelet poor plasma by Coagulation assay 27.0 s 24.0-33. 0 [facility] ID Date Data Source [id number] 03/22/2021 01:14:58 AM [facility] Name Value Range Interpretation Code Description Data Marifer rce(s) Supporting Document(s) Albumin [Mass/volume] in Serum or Plasma by Bromocresol green (BCG) dye binding method 5.4 g[facility].5[facility] Bil[facility].total [Mass/volume] in Serum or Plasma 0.6 mg/dL <1.2 [facility] Bilirubin.direct [Mass/volume] in Serum or Plasma <0.3 [facility] Alkaline phosphatase [Enzymatic activity/volume] in Serum or Plasma 78 U/L 40-129 [facility] Aspartate aminotransferase [Enzymatic activity/volume] in Serum or Plasma 34 U/L <40 [facility] Alanine aminotransferase [Enzymatic activity/volume] in Seru m or Plasma 39 U/L <41 [facility] Protein [Mass/volume] in Serum or Plasma 8.7 g/dL 6.4-8.[address] 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+9tgUjTei7W+McRs7BjJAM+y6afmrdzZevpyLFjm3E9NUMiO+n2Oz6qtn [file] AgICAgICAgICAgICAgICAgICAgICAgICAgICAgICAg IKWfBURfZKIiCMZkPXMmGTZiAWKvUDRoSMRsTBDxJPBfPBLcEC4KWKEfKOGnQUKsFNGcCPRlHRMwISEz ICAgICAgICAgICAgICAgICAgICAgICAgICAgICAgICAgICAgICAgICAgICAgICAgICAgICAgICAgICAg SQMsGQZhJUUqGXUjWOBlDHIeQF7VKCFrNSDdJKJsHH AgICAgICAgICAgICAgICAgICAgICAgICAgICAgICAgICAgICAgICAgICAgICAgICAgICAgICAgICAgIC EqDTMdBRUhMHNkBYWqWPKnCGQdFSNlPOXoHKSyOC0HGBFdRABvXDTaWKTfXCMgPSKyKBCgVSErNFRdBW AgICAgICAgICAgICAgICAgICAgICAgICAgICAgICAg YLRyOHEfVKNkNGGrOYBiDTUgMMBeTIVnMSOaNHAiCGUkJRWtGZFgKR5YKAXyDBTeRJEmWSIjHEJmXFGy ICAgICAgICAgICAgICAgICAgICAgICAgICAgICAgICAgICAgICAgICAgICAgICAgICAgICAgICAgICAg RLOgSKQbVZNbHPIsUCLcRPXwZTInZJ8MUDDaWUNrIL AgICAgICAgICAgICAgICAgICAgICAgICAgICAgICAgICAgICAgICAgICAgICAgICAgICAgICAgICAgIC XwZUSqPOWpOEKfJBNbYUBiLYXcPKNiFMYmZVJsZTYpUF2ICSNwWDLcVCXqQUEuIXAuZTQoQHGeOLFbUO AgICAgICAgICAgICAgICAgICAgICAgICAgICAgICAg FJLmUPJgKNFqLWZzXDJeZZFuASDmCWXgPTCoNANySOFbPRXmOGBqVJBgSP5FTTIaKMVcSTOpMDCzPEGr ICAgICAgICAgICAgICAgICAgICAgICAgICAgICAgICAgICAgICAgICAgICAgICAgICAgICAgICAgICAg LKJjOURvVSKdGLEsUYNoGKMpRPKcMWAyLB0YIAHlLL AgICAgICAgICAgICAgICAgICAgICAgICAgICAgICAgICAgICAgICAgICAgICAgICAgICAgICAgICAgIC AgJRCxFPRbNDXhSCFkFKYsXBCuKZIdSTAsLAZuKXHzEMSsHK9CKMTsDFGzMIOsDKUuRRQhBJDtBCFkWW AgICAgICAgICAgICAgICAgICAgICAgICAgICAgICAg KLGsDNJuZZBpTTWtQRKbOBYzCUCkBCSjVJFwANMoPJZkIQVjIEOfGHTiDLTlRT4RWK52lEWcw9D9JSCk OG3kvqm/Ef7LDQqymbDqtXFdBX9MOkXkGD6uca3JMeJyEL2pjq0LHMmUChKyL9E4nOLgMFGlVVEKQhCe I77tMVepUy75BFasDWWaTsWjIEc8Gl1IBrFfI1mrLD FlUqV3WVBrRpE2DKCeVfI2JAPxUxPnVPXaLCBnOPSeUSFNGJL6WLHhFmZwBiJyZWEpYTpoTKEQCOWfMX EvLyLjFJlvXN8Iz8GobHK7GMy+Sl0LKO2au9CcDYd2QULyVD7flt7CFSiORcVoK3CodaC2WAYsTRFwZx 6KKWKlTURakDO7XRQaFQMSEgYgX6QivX54SHILAf3+ SSntkcZxKtiUFaQbYSUrg8YsOEz0ZF1IYKDdTKk2uVSzWFerF2fajxtrDLJ7lM2mcxwdLuelSSXydi8p GGraHLBMG4OuXH2vhgOmCE0ZBTS7VEDrSxPmEeDzLVBlRogoNnOOTTsROiUuP1Zrp1FbDqV2ULYuYwEb QXyqRXZyKvF3UQ79rUfhSV5IGPZbHELoNS87TBN1NR GzNa1VHy9CDeNmGH9xaq5DDBRhCYPoGlgPHam4EUerWV2BpPAnI6WmuYKlz1wJNxDrY0FYVGJ9VYWjWt 8DPUSjAcTpXVYhNBgfRC6sXGYxTFKFmPvwueQ6JL7BND4qrdUgXF8LIhCdNf5jCy8QIuKiF7MuS8RcID PrHMLXNXzmVO2STGmkWS2mXJ9Lx7KLqWVgiT8xsw0E AFTwHXGpQfhxir1GMevdL6I5eQpxDPGrMFkqALAKRIknOY9CKOCqMVC1ZHG7WLGkJKVQOiKvL45cIW3P Z4Ohq12nLdY9YOJzCpBhZNphJI91uAqguoGjbFJpiJgjRT1CSo8+DQplbmRvYmoNCnhyZWYNCjAgNTIN RbXeYDZcUZIcFUPzYdV9XlFuQg5CSQStKQCoVIVyUp WeZMGzBYYqRKhvYHCsBDK3FOusGILlBBVwCN6TGiAcEPDpNAv1UsWlJAOhWUNkhr5CIJVrARXgKXP9Su VeLGTdKQRgXYtsNPYeWPW5Xpv8RLCqZPMnFV1JOwOlQCNqPWEkSBFoDQLqAOGlcd4SCKZcQQJpTVk3BD VuUBZkSEJzHXinEPKlKJJ0QLhtUVLfIBCrJS9FDvXy OGAiHGGlVXIjSDUcCUWmwr2IVZBkRMQlBfQfDZKoDNNiYYZzUCbqHBIyBZK0AFL9MANyBZIvRU9IKiMc LTTaQCRrQPPbCJJsTGBegy8MVMDcFZEeYZl9KfBmOPDbCMCmZZmoLBGiSYZdSVBuUKIeMGAlNP1ZPjTq QAMvLbA9LnXeOXPaCNPlsu6CICXePXScBde1YVYeWC XzSYZcIFhxLQSgCTH7BWnkUCMsSXOiHL3IDkHwOMNwAqvkKGutAREhWOTfow6NSHDrKRPcUQB6KmFgUJ HmHRPrGNplEULcEUTfWtP3WOPtYXEtGU2QVeHpKXLhDrIkHIQnPNEgEESryl6LXLNaZIMnJLB7CzHsUE OdDBWhVObqDRQoQTUnWfB8ANSaROZlXY3UVkDcKWKg DzW7YSVrVMTyJEAzck1QAKEbJNKxUdaoDnFlSEQwJSXsQAkpPOLeOMFuTxu5LKPwROJbRS9BRnSvXDCs XcO8YZkcOTFoWFKnao7ZOIGtMDVqMKD4CqHyWVCvZYWtVSogZVJxLES6COS3MVIgGAKcKC3FRoEmFVCs MhRkObMcFEEyHFVdpr3CEONzRTPjIEYnUkWhFCAnWC RzBDxrVKLkORK9Frw7GPPmQAHnXL8ZWbUfUQRmUgR8EAEzLPLrISBhpf0CBNWcJEDpCqp0BGJeZOYkGC HtXTuoJGBrBES1WGA1CRMgINZyTV3LNxUhFVJvDRz7KlXcCKSkKXVvgr9YNZTtIFF8URF2RcIrBWCbPU UhIDinDKJgDLT5FKZuEDMwXFQfRB0NTiIvEBGqGUpx ZaqeXMMnAZRohi8BRFKbJTI2TroqIxDuCOTgOGHfMQoeEWNeAPE6RjRxEIYkKOQmVH7NYiQwPVOpGWY8 QGQjTNOgWWDgok0HJFRnYOY1SWO0IeXgPMDlSYKzYSlsUKAfWBN2AMK3MTUyAJMpDG7PFqTeENXsOPR8 TOYwSKNxRQHzhu2DBGNiRUZ7TKx4MNLzRRNxWTYsGJ wuAHKtWTF5XOK7VJZkXDWpRX4FZnSeGZCuRJX6NrFeKAGiXRUsll9NOAUsGPK9BFUnZWOrPOUnWJYoNA nxVXBjTMU3BZh0VXXfJCQsFJ9DReIeSOLdPGcrRWGvZOVsVHWbtw5NyAWuxFqpqs8YLNrVMq0BcTdoRK AdWRciDg1ktFQ9UKWfYYDGLx7EorCfAFHuEJTWMVbi IEFnBFvbCRz4VIf6YWY5QOSnQeFtY1XyHFBuASXlBoQuHPC3VaL3LbKmOrLfHeloEoCiDDLgANR5OXS2 QsKuHmB3IRD6IrV+TJ8wDHf+Oo4Ak4FqcvI1wcAoFHn8NBD4RH2ILWJAL0TYIy== ID Date Data Source [id number] 03/08/2021 08:09:11 AM EDT [facility] Name Value Range Interpretation Code Description Data Marifer rce(s) Supporting Document(s) Consultation [facility] DFZAIk5vZwMENqZo51/OVTetDGLeh1JkTLpxVCd7PHjyFUFuU3QlGMH6zZ7oMDP2WEaVQlJyZyTcGVHj lbm [file] ID Date Data Source [id number] 03/07/2021 03:50:37 PM EDT [facility] Name Value Range Interpretation Code Description Data Marifer rce(s) Supporting Document(s) Consultation [facility] ENDZDi7kQmSECzPd97/OWOhpMBLwb5LlKQhnFZw4QCdnEEWcS3ZnXXM0fA8tGAT7PKaLYiGeXfBrDJE6 lbm [file] voss+U6+/9N2/J+2y3/onN2D6uR8n/Bgoaj7bOrQviGU+RhGgMqwFvS1PTTjRpQ4X/sd3M/CEMlpb1lrDJ Snqeq+Yl2a8/tTBpgLRY7gvH5ecqQqJVn0ZMN4Dwdb 1GH368pv4n2ZM8ug9X8e6/b6HO/IdTboF29YtY5aCbLfuc0XA+aXtGu7ocjzB6W1i81+s6gaJ9aiIQ5w 0W7xvXGO+br1W+Wf1DVB0i+T28AKLEufVdn6VVg1tW8ih7WN6cX4zKyS5+IL2bCTt1rbyeX9bzV36Y20 ghtdIIn5mIdg5jT+kof7FAlioxhEyx3G3UUaqz4Shy aHfKb1zByS1rVcy3RWaudtS67wp4C7T1q6Dt+Z8myCcmsstPvv77v/hu/IVYbWEazHl0lWoU54eq1p49 dT+0uzoMc/IJ+6+1I8rzoHwbGpX6gJEJwkmLInYhAEP9N1y5YjjKJQciOTES1nBCDfDX09oLwMxuw9Rw 5f8kMz6P4GzTTZlZxJ21scCd+FfvIT+AFNh/8NUANr eiIdTe2dpUXvyy34hajbJ0sgZ3wuxPbqj2Dw7Oxld1wZGF8cb8aqmePhjKhLgDK+MdLtstfvvK/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 [file] AgICAgICAgICAgICAgICAgICAgICAgICAgICAgICAgICAgICAgICAgICAgICAgICAgICAgICAgICAgIC AgICAgICAgICAgICAgICAgICAgICAgICAgICAgICAN CiAgICAgICAgICAgICAgICAgICAgICAgICAgICAgICAgICAgICAgICAgICAgICAgICAgICAgICAgICAg ICAgICAgICAgICAgICAgICAgICAgICAgICAgICAgICAgICAgICAgICANCiAgICAgICAgICAgICAgICAg ICAgICAgICAgICAgICAgICAgICAgICAgICAgICAgIC AgICAgICAgICAgICAgICAgICAgICAgICAgICAgICAgICAgICAgICAgICAgICAgICAgICANCiAgICAgIC AgICAgICAgICAgICAgICAgICAgICAgICAgICAgICAgICAgICAgICAgICAgICAgICAgICAgICAgICAgIC AgICAgICAgICAgICAgICAgICAgICAgICAgICAgICAg ICANCiAgICAgICAgICAgICAgICAgICAgICAgICAgICAgICAgICAgICAgICAgICAgICAgICAgICAgICAg ICAgICAgICAgICAgICAgICAgICAgICAgICAgICAgICAgICAgICAgICAgICANCiAgICAgICAgICAgICAg ICAgICAgICAgICAgICAgICAgICAgICAgICAgICAgIC AgICAgICAgICAgICAgICAgICAgICAgICAgICAgICAgICAgICAgICAgICAgICAgICAgICAgICANCiAgIC AgICAgICAgICAgICAgICAgICAgICAgICAgICAgICAgICAgICAgICAgICAgICAgICAgICAgICAgICAgIC AgICAgICAgICAgICAgICAgICAgICAgICAgICAgICAg ICAgICANCiAgICAgICAgICAgICAgICAgICAgICAgICAgICAgICAgICAgICAgICAgICAgICAgICAgICAg ICAgICAgICAgICAgICAgICAgICAgICAgICAgICAgICAgICAgICAgICAgICAgICANCiAgICAgICAgICAg ICAgICAgICAgICAgICAgICAgICAgICAgICAgICAgIC AgICAgICAgICAgICAgICAgICAgICAgICAgICAgICAgICAgICAgICAgICAgICAgICAgICAgICAgICANCi AgICAgICAgICAgICAgICAgICAgICAgICAgICAgICAgICAgICAgICAgICAgICAgICAgICAgICAgICAgIC AgICAgICAgICAgICAgICAgICAgICAgICAgICAgICAg ICAgICAgICANCjw/tQMkG0vgnTWmycZ8H4myBc8TPt8WAJ3vd5DxCIFlIHkndkHaAqjANpQiGFNcWvlC Lpn8CAghWC8LmIPrU3TaN5NsWYejWG7ELNAyHJLwgWZgKORcHEBrTsB1IBPlLIqcWA4VoWPrJQzbOCGv RNYcItJyOHDeSCGwNSOrHAOyBZNINT4TRxNjS7UunT 65LAAQFa5+HCeylgQxUheLPdGuFDEih5DuMOs9EC5WVNFdAjxvu2MzIeBzVWSPLLuoIQ5GRIL3SSUrYN CfTn3DHORiI304woMyJL9SCv0FDbTcIT5eun4SOyBoBETnCooBKug5BQikIZ5AzDXrMMdVo44mtOg7yo XfuUAPNCIgjKCFBJL3CUSxtKMpGHfPF9iyRQOaDT4u HL4pECSnNMZdYwUgAAIJSN3RNQGaYEEsmTRaTHGcONSKFS1NFZgsPOQ9LQFstxFuyVKsJSubPX4BVVZb bnQgMzEgMCBSDQo+Ts0OXQ5yw7WeZFojCqFiBR9fpn6YQYwCSwUtH6N6sHBeR8Q5CUkdWx1NPEFeLDQt PuedRWFTJJceOY9TRF6ftaS9UA6CqIUoDBYwAYGnrS IcPVp5T95hfENbCFwdXX9MNCZ+Jayla+Bw0WPBNhYDMpBUJoMpJgYLQIGlDwK0PlB7EQu9LdF5OdHX18dU nontJmMMhgSZ0DMB6eFNCfGZSHHO6DwBFzeV2hvjEkIWTmFCIWWhYnJ09dmBRkFPDuXCXyVVSvLn2SUY EmE0QsruHuvEauogPfOQTwDTKTPY6GAVlkraGmaCLn jIugWZ06mGicPN1TEa0MJgKsFJ7uvu7WrOCaYn2WDNFeAH0CNBAoLWOyNWCiEYQ8MJRyEdOrMUdnQZCy SFFkTVT3TCCdYJLkPQ4CDzMuKWQdWgD9ZzShODByGAKivy4SAQWlCZXaLwR8IrCuEONaOIVdSClyPAXy SXGhMGU7QISkLSMdSK5NJzUvHPCzFWE9QUAcRKGcMF Yxfl8LCZHkEBOiLGIdCLUgRSIpNFUjGWzdEIWlXUT0NTboHJXuXBRpCB6APsIhMIQnTNvbZsldRNPbHL Ztiu6YSGFrBJHkRXP3DlCbVOOkRDEpQIylLTCvOUCaTSllJJBhWRPjUE7DCvXdVCXuYFI6JzelSSZaFW Utud4OUPIkGERbMufpGRDnXXIxKKTaSImvONGfHTA1 LWq7JQPvUYDwKE1JZqTjITWvQSBoQQNvRHCkRBWopf9LTYVkMLBkOKO3KFObHKXhUYAmAYkhBNVxQCA9 SaJmNBEsLUWyHD5OHiWaQADwVSU2BbPeZELkCERutp2IKGGmAJVeSeRvKhCeGKGoUNSlQGjaUFQeSDJ9 RHvrUZDyWLNdHO6PLdHwQOIuFMr6KMJaPTPcTAGgwk 8WBRUeUMOxQeu2JzEfTPAmSYQyOKyfVGEkTGR9BZRcHKQvXQDkKI9EIdRhTJSeLLgaZdmfKMIzIMYjiu 3NRDUdDJDwIYKjRfQzQTFyIAJcYNnoWTClUKNbNgs9EMTcZGSeGO4HXmIsKSDfWmBwAKJmNRMmSYKeia 0KMDAwMDAzMTIyNCAwMDAwMCBuDQowMDAwMDMxNDYz TWPsOWViXB1MWyQsBSPxJsZ2NUwxOLGeGMOqtt1FMGRgCIKoAeE4HuSpWWKuZSDqYWqzUMZsUHAtPRk5 SXEyJBVoWF9HEpChSZXoPeT7UkAmVYZiUAGhua1OWEDrLHDtQbzhMnFiGYUnJPEoHPg1wkMhaXYaUPl0 DN8VO9FwilNhPrIORo5Qh245VMOtLGFdXj9VL8itOm 6sSLZfMTGXSw4YUDz6Ixn3LCZ2RrD6OZk9GkFdRXK8HPO5FkUcC6BxR5T3SYW+XXd9CuC6OhzvYAG1ZO vqVDGoOVfzQJhhYYSpBfJkCQKeOA0qJPTFDm6+MGinnBVlzCdpZIGBUyAkRIYpYHvbFOGFKo7S ID Date Data Source [id number] 03/07/2021 12:55:08 PM EDT [facility] Name Value Range Interpretation Code Description Data Marifer rce(s) Supporting Document(s) History and Physical [facility] IQIARg1gYtNOYeYq85/QYPciCHZsn7TfOXbfPXl5RUyhWWJzF8HdTEA7rT4nDTH0GWyFQjDkVoWcIOG9 lbm [file] AgICAgICAgICAgICAgICAgICAgICAgICAgICAgICAg ICAgICAgICAgICAgICAgICAgICAgICAgICAgICAgICAgICAgICAgICAgDQogICAgICAgICAgICAgICAg ICAgICAgICAgICAgICAgICAgICAgICAgICAgICAgICAgICAgICAgICAgICAgICAgICAgICAgICAgICAg ICAgICAgICAgICAgICAgICAgICAgICAgDQogICAgIC AgICAgICAgICAgICAgICAgICAgICAgICAgICAgICAgICAgICAgICAgICAgICAgICAgICAgICAgICAgIC AgICAgICAgICAgICAgICAgICAgICAgICAgICAgICAgICAgDQogICAgICAgICAgICAgICAgICAgICAgIC AgICAgICAgICAgICAgICAgICAgICAgICAgICAgICAg ICAgICAgICAgICAgICAgICAgICAgICAgICAgICAgICAgICAgICAgICAgICAgDQogICAgICAgICAgICAg ICAgICAgICAgICAgICAgICAgICAgICAgICAgICAgICAgICAgICAgICAgICAgICAgICAgICAgICAgICAg ICAgICAgICAgICAgICAgICAgICAgICAgICAgDQogIC AgICAgICAgICAgICAgICAgICAgICAgICAgICAgICAgICAgICAgICAgICAgICAgICAgICAgICAgICAgIC AgICAgICAgICAgICAgICAgICAgICAgICAgICAgICAgICAgICAgDQogICAgICAgICAgICAgICAgICAgIC AgICAgICAgICAgICAgICAgICAgICAgICAgICAgICAg ICAgICAgICAgICAgICAgICAgICAgICAgICAgICAgICAgICAgICAgICAgICAgICAgDQogICAgICAgICAg ICAgICAgICAgICAgICAgICAgICAgICAgICAgICAgICAgICAgICAgICAgICAgICAgICAgICAgICAgICAg ICAgICAgICAgICAgICAgICAgICAgICAgICAgICAgDQ ogICAgICAgICAgICAgICAgICAgICAgICAgICAgICAgICAgICAgICAgICAgICAgICAgICAgICAgICAgIC AgICAgICAgICAgICAgICAgICAgICAgICAgICAgICAgICAgICAgICAgDQogICAgICAgICAgICAgICAgIC AgICAgICAgICAgICAgICAgICAgICAgICAgICAgICAg HDWgCFDwSTOlLKTuHIAuDUZnDQAqAYVdQCByDPBoRKSpSWXfAAYjLARjSWTpNZXrUXRdALv6M6daFEHj NQIkJV1vDDu5Jb7+YMbGOlNgCOF6tuOpqG1PDX9qe3KfIAwwEHAxi5BfWPh7HO6OSDHrWMgbNI5EUAzr dn5WFWLySNTpbELNa5yzGjArFHC2QBAfYymcVE4EIY KrE9zgvdXhMELeHSNNHPdyYTCBSNiaWHZZYVIwAEStHyRvZgIsTITfPXIoYYXJIMD2RSBsQcVxVLSgOY QeHH0NJISoP500oaWtQD3DLw0UQtWpPX1xer2QNNPgNOVeGaaJFqy9CMluXV6LhPQznOS7YTIfISXFUk SwM7vae5WmBKGsGYYRNYzwUL6Dg5FpeJRmBLe+Pg0K JT3kr8CzULd3YLUaXU9zsa2KJSfRRuIiQ6RvoDxdTVlmOPRcyNISgKNaSSWBGO0nW7dggFNcWO3XZUV6 YGTbUflzJbJyRLEwNTh6SgGJHEpIHeMdU1Dwj1FnMjI7ZUUiWyCsHNksKUAnFaG9UI54vFrgAT9RCUVq VEIvUS05VHKhLYJqUg3BWo3KTwWwVV9clv6GEOViZG QrXelRSvu3ICumXO1XqWLzN9AueOFnk9fUFlGcL8QGWFCyFJCzUn6YWANxUtWsDBOeUIriVR5pCUZgTC TMgQrrpgF8ZB1MFA8vidCxOH3CEkJgSs7bAl7IMlOzQ5WvQ4NfAKJpULSVKUayCM7PRNuaVV4yLK9Sr2 GWzNVzxB7nst5ZIONuOBPzWfxqag2XHvvsD8X9tUgm VHTkUWDdHEBVYTasZX4BRNXlLYX3HER9ZvZzZVJNRfLfK07sEY3WD3Dtv65rTnF2SEBiAmKxKAhqYY46 uQwmcyKkkNFpsCwpSX6NZk1+FNmiiuEcHhbWRqlaGWXKNhUjKQPWIwWyKLKxWHGgUVHwXvI9BtZsYb4I NUGyZFJpWQMgWdLmQFKmSTEcYFszMKJrMRF9RVV6ZB QhLHUkZI3UOrWmJWSeFOiqEtNcZIJuFXYixb8JVXDsGUPcISA9QvGmYPFaPWWeAUchEZOxYZDjGCl3AE OcNNCvFU9EVlOnSLJnBBEsOOisTWUmPXOdeb2LVTKpTVGsMzzxUgRtIAIjFXHzRZlePWLbWWM4QEB2ZM GlAFDhHM7KNvFgGLZkIFMvZLafROCvWQDjgw6OSRLw ZMMeVXErYiBrNDKjNYMzPKkaHWHeIXD5WtQ3HNDoTHFqWI6GSbGaMAMnCBJ6BiEySWJsMALlgj6ANTMj XDKlRGO7IjYwGSCrDHEuXSdzVKGfTIY0Uvr6EULwGHQlKS9KRzVoZDKiReG4UYBrEKMwLMWwuc1KYJLb SNDvWhV8UqSxFZGfKSJzRXpnBTNmXJL6QqW6RJZkYO XyOM9YBtUqOZJuYtZ4ErCjRTMuEFLqsi7NVBDwSSYdBLBeYQDxHILpCLFvHNzwCBZtTOP7SyG5DPJlBG HlCA7SExCnPMKkDha5BaTfOHLvQUTshp3IUALuNDWvTJd6QtVkXZFaQEPrKVevYYChVWNwZAR6BRErVM BnPJ5FAsBfPJFfGaEkHNUgLGMzLZRfte5SCRDrMCMh WRCvFoMbVSOnPYReIMgmKKFnJBPdZTM6TNDhWOMgAQ9ZMpSgEIXaEpYqAoNhBPHoYBXkmv0ONLIeMTFe XhU6JnFqWCEkMOFnJObyHUWwVRHzKcT2PABsWKJcPL0CMrGfGHVjDvT2POIvPDIhIZJdux5DTHUuOGJg MadwAlQyRIVlGDNmJAtsHCXgUOE3KFy9TWIdGNIkSH 4KIgBjXJXzTfYhAQYtSAOtAYTyui8ZWRZfNAOaPBK3ZMNjJAFiKSYiVAnyCCJyFIK3WNU7YZVqPPUhRI 0TDzAwQBMePWZ3FUInDAXbVCCqkj1ZKJNwRAC2AaFyIXMxRUHeMSVyZSrvXVDoBML3TJGoVGFlXXIhTT 1JEtHdVFTlRWi9TzhoMLWjTOOpsz6QDOTnOBG4Whqp CUGbRNIpLEHkMHryNYOdZJOrVaxuOWPoQJPpJQ3MRqSbLNMfFQL2CHNuUSEpUKGhna6IAFNiPXI8UhDi RHKyDAZfLNJiNEznVCYbCAHkMJM5OJAeUGAuGW7TJhJoHEOdLUP0CNsvZWUjFYXfne2XCZGcWQH4Ijwv NBSvIYUcMAEyZAswQAYmQNK5KLZ2OJOmCERgIF1VEd DdSRJkTYWgHFJxMUOsXZHttk6QAFHcDAF0UDB9XFPzSYJrHDGmFZugANHlASZ5ZtSdHWXgGIGpKR8WEn JpMUTxDPB4EcRjHKNyXUEerk2NPFUrYVZ2KhPcQyCqAJMhTNYeJUowYZJfRZZ1TVA3DHPeZTRnKP8TMo PdEFFtBNx4EravIVSbCTAotv8ZDCGlCUK4JtlgRmKs QKLrEHFsGRj8buLnaVLnQHv1EG4DD5KvahIvKDDSQs9Oo458BUM6LMZwGt5RD7plVj6kKKFbYZRLGk1I KJl9HmJyEFkvR8AeDZM0KVg7KlWpNPFaHeU3ZdNiZ9TzMQA+PGjoGkT7GYLoWlT3KVztIde1GiD5DVQg JavcRrP1YsZcWZ9hWYIZFs1+DOkoqFRlvPqyYCDQIxZ8NTEwQUpvDQBKJx9R ID Date Data Source [id number] 03/07/2021 08:12:[facility] Interpretation Code Description Data Marifer rce(s) Supporting Document(s) Color of Urine [facility] Clarity of Urine [facility] Specific gravity of Urine by Refractometry automated 1.011 1.003 -1.030 [facility] pH of Urine by Automated test strip 6.0 5.0-8.0 [facility] Protein [Mass/volume] in Urine by Automated test strip Neg [facility] Glucose [Mass/volume] in Urine by Automated test strip Neg [facility] Ketones [Mass/volume] in Urine by Automated test strip Neg [facility] Bilirubin.total [Presence] in Urine by Automated test strip Negative [facility] Hemoglobin [Presence] in Urine by Automated test strip Neg [facility] Leukocyte esterase [Presence] in Urine by Automated test strip Negative [facility] Nitrite [Presence] in Urine by Automated test strip [facility] Leukocytes [#/area] in Urine sediment by Automated count 0 /HPF 0 -5 [facility] Erythrocytes [#/area] in Urine sediment by Automated count 0 /HPF 0-3 [facility] ID Date Data Source [id number] 03/07/2021 08:16:16 AM [facility] Value Range Interpretation Code Description Data Marifer rce(s) Supporting Document(s) Calcidiol [Mass/volume] in Serum or Plasma 22 ng/mL >[address] [facility] ID Date Data Source [id number] 03/07/2021 08:02:55 AM [facility] Value Range Interpretation Code Description Data Marifer rce(s) Supporting Document(s) Cholesterol [Mass/volume] in Serum or Plasma 137 mg/dL <200 [facility] Triglyceride [Mass/volume] in Serum or Plasma 73 mg/dL <150 [facility] Cholesterol in HDL [Mass/volume] in Serum or Plasma 40 mg/dL >40 L [facility] Cholesterol in LDL [Mass/volume] in Serum or Plasma by calcu lation 82 mg/dL <100 [facility] Cholesterol in VLDL [Mass/volume] in Serum or Plasma by calc ulation 15 mg/dl 16-[address] [facility] Cholesterol non HDL [Mass/volume] in Serum or Plasma 97 mg/dL <130 [facility] ID Date Data Source [id number] 03/07/2021 07:37:25 AM EDT [facility] Name Value Range Interpretation Code Description Data Marifer rce(s) Supporting Document(s) Hemoglobin A1c/Hemoglobin.total in Blood by HPLC 5.0 % 4.0-6.0 [facility] (NOTE)<5.7% Average risk of diabetes (ADA)5.7-6.4% Increased risk of diabetes(ADA)>/= 6.5% Diagnostic for diabetes(ADA) Glucose mean value [Mass/volume] in Blood Estimated fr om glycated hemoglobin 97 mg/dL <126 [facility] ID Date Data Source [id number] 03/06/2021 06:21:00 PM EDT [facility] Name Value Range Interpretation Code Description Data Marifer rce(s) Supporting Document(s) SARS coronavirus 2 RNA [Presence] in Res piratory specimen by LENNOX with probe detection NEGATIVE [facility] This lab was ordered by [facility] a nd reported by [facility]. ID Date Data Source [id number] 02/25/2021 11:33:00 AM EDT [facility] Name Value Range Interpretation Code Description Data Marifer rce(s) Supporting Document(s) SARS coronavirus 2 RNA Not Detected [facility] This lab was ordered by [facility] and reported by [facility]. ID Date Data Source [id number] 02/18/2021 08:59:00 AM EDT [facility] [address] [place] [address] PHONE: [phone] FAX: [phone] Name .................. : TOSIN WONG Cristino Acct Number.................. : [id number] ROOM. ................. : TR-07 Number ................... : [id number] Stay type ............. : E/R Discharge Date......... ... : 02/15/21 Admit Date ......... : 02/15/21 Admit Phys .................... : LETICIA Burleson Date of ....... : 1990 Family Phys ................... : NON STAFF Phone .................. : [phone] Age ................................ : 30 Film# .................. .:[id number] Sex ................................. : M Unsigned transcriptions are preliminary reports and do not represent a medical or legal document RENAL COMPLETE [id number] COMPLETE:02/15/21 15:10 [facility] [id number] Reason(s): flank pain RENAL ULTRASOUND: INDICATION: Flank pain. FINDINGS: The right kidney measures 10.0 x 4.6 x 5.1 cm. The left kidney measures 11.4 x 5.5 x 4.9 cm. There is no hydronephrosis or nephrolithiasis identified. The bladder is not well evaluated as it is inadequately distended. In the mid-pole of the left kidney, there is a hypoechoic structure measuring 3.4 x 3.3 x 2.1 cm. This is of indeterminant significance and etiology. A CT scan without and with IV contrast should be considered for further evaluation. IMPRESSION: No hydronephrosis or nephrolithiasis is identified. Hypoechoic lesion identified in the left kidney at the mid-pole measuring 3.4 x 3.3 x 2.1 cm of indeterminant significance and etiology. CT scan without and with IV contrast would be helpful for further evaluation. The urinary bladder is inadequately distended and not well evaluated. Examination dictated by PERLA Vaca. Examination was reviewed with Clyde Palm MD, radiologist at the time of this dictation. __ Electronically Reviewed and Signed By Clyde Palm DO , 02/18/21 08:59, RIO Transcribe Initials: DZ , Transcribe Date: 02/16/21 01:47, Dictation Date: Copy for: EMERGENCY DEPT via modem Copy for: 710 MED REC Page 1 of 2 [facility] [address] [place] [address] PHONE: [phone] FAX: [phone] Name .................. : TOSIN Rivera Acct Number.................. : [id number] ROOM. ................. : TR07 MR Number ................... : [id number] Stay type ............. : E/R Discharge Date......... ... : 02/15/21 Admit Date ......... : 02/15/21 Admit Phys .................... : LETICIA Burleson Date of ....... : 1990 Family Phys ................... : NON STAFF Phone .................. : [phone] Age ................................ : 30 Film# .................. .:[id number] Sex ................................. : M Unsigned transcriptions are preliminary reports and do not represent a medical or legal document RENAL COMPLETE [id number] COMPLETE:02/15/21 15:10 [facility] 8359 Reason(s): flank pain DISCHARGED Page 2 of 2 Name Value Range Interpretation Code Description Data Marifer rce(s) Supporting Document(s) ID Date Data Source [id number] 02/15/2021 11:50:00 AM EDT [facility] 1 OrderSheet [facility] Emergency Department [address] [place] [address] Phone #: ext- [phone] 02/15/2021 11:45 Patient: MARVIN LEAHY Sex: M : 1990 Age: 30yWEIGHT:92.9 kg (M) HEIGHT:68 inches (S) BMI:31.1ALLERGIES: None, SeafoodCHIEF COMPLAINT: abdominal painDIAGNOSIS: Renal colicLAB ORDERSOrder Description Priority Entered Acknowledged InitialedUrinalysis (Clean STAT 12:28 02/15/2021 12:31 TerryCatch) Carter Small ; Kayla GARNERDIAGNOSTIC STUDY ORDERSOrder Description Priority Entered Acknowledged InitialedUS RENAL STAT 12:31 02/15/2021 12:45 TerryCOMPLETE Carter Small ; Kayla RN(Oxygen?(No))(IV?(No)) Reason for Study: flank painMEDICATION/IV/DRIP/FLUID ORDERSOrder Description Priority Entered Acknowledged InitialedToradol IVP 30 mg 12:28 02/15/2021 12:46 Harry(NOW x1) Carter Small ; Kayla RNGENERAL ORDERSOrder Description Priority Entered Acknowledged Initialed[Electronically signed by Carter Small (16:56 02/15/2021)][Electronically signed by Harry Garza RN (17:19 02/15/2021)][Deonna ctronically locked by Harry Garza RN (17:19 02/15/2021)] Name Value Range Interpretation Code Description Data Marifer rce(s) Supporting Document(s) ID Date Data Source [id number] 02/15/2021 11:50:00 AM EDT [facility] 1 Medication Reconciliation Report [facility] Emergency Department [address] [place] [address] Phone #: ext- [phone] 02/15/2021 11:45 Patient: MARVIN LEAHY Sex: M : 1990 Age: 30yWeight: 92.9 kgHeight/Length: 68 in.BMI: 31.1ALLERGIES: None, SeafoodThe patient's Home Medications are listed below:THE FOLLOWING MEDICATIONS NEED TO BE RECONCILED: Divalproex Sodium Oral (250 mg), 2x a day Eliquis Oral (5 mg), 2x a day Escitalopram Oxalate Oral (10 mg), 2x a day HYDROcodone Bitartrate Oral, prn Ivermectin Oral (3 mg) 3 tabs, every 6 months Memetasone furoate 15mg , 4x a day Methocarbamol Oral (500 mg), 2x a day oxyCODONE-Acetaminophen Oral (5-325 mg), 3x a day, prn Pregnyl Intramuscular (36383 unit), 3x a week risperiDONE Oral (1 mg), 2x a day traZODone HCl Oral (50 mg), daily Trolamine Salicylate External Xolair Subcutaneous (150 mg) 300mg, 3x a week Zofran Oral 4 mg, 3x a day, prnThe source(s) of the original Home Medication information: 2 Medication Reconciliation Report [facility] Emergency Department [address] [place] [address] Phone #: ext- [phone] 02/15/2021 11:45 Patient: MARVIN LEAHY Sex: M : 1990 Age: 30yNot obtained.The following Medications were given to the patient in the Emergency Department:Toradol [IVP] IVP 30 mg, administered: 12:35 02/15/2021The following Medications were prescribed to the patient:None. Name Value Range Interpretation Code Description Data Marifer rce(s) Supporting Document(s) ID Date Data Source [id number] 02/15/2021 11:50:00 AM EDT [place] [address] Medication Administration Record [facility] Emergency Department [address] [place] [address] Phone #: [phone]- [phone] 02/15/2021 11:45 Patient: MARVIN LEAHY Sex: M : 1990 Age: 30yWeight: 92.9 kgHeight/Length: 68 inBMI: 31.1ALLERGIES: None, Seafood Date/Time Medication Administered Medication OrderedGiven TORADOL [IVP] (KETOROLAC Toradol IVP 30 mg (NOW x1)12:35 02/15/2021 TROMETHAMINE)Harry Garza RN Dose: 30 mg IVP Site: #1 left Name Value Range Interpretation Code Description Data Marifer rce(s) Supporting Document(s) ID Date Data Source [id number] 02/15/2021 11:50:00 AM EDT [facility] 1 General Instructions [facility] Emergency Department [address] [place] [address] Phone #: ext- [phone] 02/15/2021 11:45 Patient: MARVIN LEAHY Sex: M : 1990 Age: 30yLeft renal colic with hematuria.INSTRUCTIONSWarnings: GENERAL WARNINGS: Return or contact your physician immediately if your conditionworsens or changes unexpectedly, if not improving as expected, or if other problems arise.Understanding of the discharge instructions verbalized by patient.Follow- up with: [facility] Respective Team Dale Garciaileana VIKY, , , [address] [facility] [place], , [place], [address] Follow up in three days if not well.Follow-up with: Benito Willett M.D., Urology, , [address] [place] [address], [address] Follow up in three days if not better. Call for an appointment. ADDITIONAL INFORMATIONBlood in the Urine 2 General Instructions [facility] Emergency Department [address] [place] [address] Phone #: ext- [phone] 02/15/2021 11:45 Patient: MARVIN LEAHY Sex: M : 1990 [...] heavyexercise or high fever. In this case, y our healthcare provider may want to repeat the [...] to talk about using these medicines.Follow-up care 3 General Instructions [facility] Emergency Department [address] [place] [address] Phone #: ext- [phone] 02/15/2021 11:45 Patient: MARVIN LEAHY Sex: M : 1990 [...] nose or gums or easy bruising [employer]. [address] [place] [address] [place] [address]. All rights reserved. This information is not intended as asubstitute for professional medical care. Always follow your healthcare professional's instructions. You have been given the following additional information: Hematuria(Electronically signed by Carter Small 02/15/2021 16:56) Name Value Range Interpretation Code Description Data Marifer rce(s) Supporting Document(s) ID Date Data Source [id number] 02/15/2021 11:50:00 AM EDT [facility] 1 Clinical Report - Nurses [facility] Emergency Department [address] [place] [address] Phone #: ext- [phone] 02/15/2021 11:45 Patient: MARVIN LEAHY Sex: M : 1990 Age: 30yTRIAGEArrived by EMS. Historian: patient.Acuity: LEVEL 3.Chief Complaint: PAIN WITH URINATION and HEMATURIA (Left flank pain).Alert. No acute distress. (in pain and moaning).Onset. (January 29). ( PT had a left sided stent placed 4 weeks ago for kidney stones. He reports havingextreme pain since January 29 and went to his urologist and was prescribed oxycodone. Today, hecouldn't take the pain anymore and called EMS. EMS gave him 4 mg of Morphine IM. HE also went to [facility] 3 days ago and he is planning on having the stent removed in 2 weeks. However, pt does notthink he can wait until then.). He has had urgency of urination.Treatment PROGRAM SUPPORT SPECIALIST:Seen within the last 30 days at this facility in the ED; seen for similar symptoms. (oxycodone).SEPSIS SCREEN: SIRS SCREEN NEGATIVE. SEPSIS SCREEN NEGATIVE. No suspected or confirmedsigns of infection present.ANIKA COMA SCORE: 15- eyes open- spontaneous (4); best verbal response- oriented (5); bestmotor response- obeys commands (6). --11:55 02/15/21 Elzbieta Billingsley R.N.11:46 02/15/21. BP: 134/77. MAP: 96. HR: 71. RR: 18. O2 saturation: 100%. Temp: 97.2 F. Pain levelnow: 08/18. --11:55 02/15/21 Elzbieta Billingsley R.N.Weight: 92.9 kg measured. Height/Length: 68 inches Per Patient. BMI: 31.1. --11:53 02/15/21 Elzbieta Billingsley R.N.MedicationsDivalproex Sodium Oral (Tablet Delayed Release 250 mg), 2x a day. Eliquis Oral (Tablet 5 mg), 2x a day. Escitalopram Oxalate Oral (Tablet 10 mg), 2x a day. HYDROcodone Bitartrate Oral, as needed. Ivermectin Oral (Tablet 3 mg) 3 tabs, every 6 months. Memetasone furoate 15mg , 4x a day. Methocarbamol Oral (Tablet 500 mg), 2x a day. Pregnyl Intramuscular (Solution Reconstituted 00010 unit), 3x a week. risperiDONE Oral (Tablet Disintegrating 1 mg), 2x a day. traZODone HCl Oral (Tablet 50 mg), daily. Trolamine Salicylate External. 2 Clinical Report - Nurses [facility] Emergency Department [address] [place] [address] Phone #: ext- [phone] 02/15/2021 11:45 Patient: MARVIN LEAHY Sex: M : 1990 Age: 30y Xolair Subcutaneous (Solution Reconstituted 150 mg) 300mg, 3x a week. Zofran Oral 4 mg, 3x a day as needed. --11:53 02/15/21 Elzbieta Billingsley R.N. oxyCODONE-Acetaminophen Oral (Tablet 5-325 mg), 3x a day as needed. --11:53 02/15/21 Elzbieta Billingsley R.N. Allergies None. Seafood. --11:53 02/15/21 Elzbieta Billingsley R.N. History PAST MEDICAL HX: Immunizations: up-to-date. SOCIAL HX: Never smoker. No alcohol use or drug use. He was offered HIV testing but declined and hepatitis C testing but declined. He has not traveled outside the [place] Infectious disease exposure: The patient was not exposed to C-diff, MRSA, VRE, CRE or Coronavirus. SELF HARM ASSESSMENT: Self harm assessment was [...] assessment completed. No skin integrity risk identified. --11:55 02/15/21 Elzbieta Billingsley R.N. FAMILY HX: Negative - denies family medical history. --12:44 02/15/21 Carter Small. Interventions Identification band on patient. To treatment room. No allergy band on patient. --11:55 02/15/21 Elzbieta Billingsley R.N.PHYSICAL [id number] 02/15/21. To room via stretcher.GENERAL / NEURO / PSYCH: Alert. Oriented X 4. Appears in pain. 3 Clinical Report - Nurses [facility] Emergency Department [address] [place] [address] Phone #: ext- [phone] 02/15/2021 11:45 Patient: MARVIN LEAHY Sex: M : 1990 Age: 30y RESPIRATORY: Respirations not labored. Breath sounds within normal limits. GI / : Abdomen soft. Abdominal tenderness in the left lower quadrant. Bowel sounds within normal limits. The patient has had hematuria. SKIN: Skin is warm and dry. --12:23 02/15/21 Harry Garza RN.NURSING PROGRESS NOTESMonitoring of patient in place. Patient gowned. Reassurance given. Two patient identifiers checked.Call light placed in reach. Patient ready for evaluation- ED physician notified. --11:55 02/15/21 Elzbieta Billingsley R.N. 12:35 02/15/2021 Site #1 started via IV in the left antecubital space with an 20g angiocath; one attempt. Saline lock flushed with 10 mL saline. --12:45 02/15/21 Harry Garza RN 12:35 02/15/2021 Toradol (Ketorolac Tromethamine) IVP 30 mg given over 30 second(s) via site #1. Allergies verified and confirmed 5 rights. IV patency established. IV site checked: no pain, redness, or swelling. IV flushed thoroughly pre- and post-medication administration. IVP given by RN. Information reviewed with patient. --12:46 02/15/21 Harry Garza RN Patient transported to sonogram by wheelchair with mask and medical imaging technologist. (7506). --12:46 02/15/21 Harry Garza RN Patient returned from sonogram by wheelchair with mask and medical imaging technologist. (1260). --13:10 02/15/21 Harry Garza RN 13:13 02/15/21. BP: 126/80. MAP: 95. HR: 68. RR: 18. O2 saturation: 100% on room air. Pain level now: 05/18. --13:19 02/15/21 Harry Garza RN 13:13 02/15/2021 Toradol IVP Response: pain is improving. Symptoms have improved the patient feels better. (pain 7 / 10). --13:20 02/15/21 Harry Garza RN.DISPOSITION / DISCHARGE 14:25 02/15/21. Condition at departure: improved. No learning barriers present. Discharge instructions provided and reviewed with the patient. Reviewed referral to a urologist (tra balderas). Patient verbalized understanding. Written instructions provided in [facility] [place]. The patient was discharged home and accompanied by store clerk. He left ambulatory and via private vehicle. Lot Boss driving. --14:49 02/15/21 Michelle Rowland R.N. 14:48 02/15/21. BP: 130/68. MAP: 88. HR: 70. RR: 18. O2 saturation: 99%. Temp: 98 F. Pain level now: 5/10. --14:49 02/15/21 Michelle Rowland R.N. Departure time: 14:49 02/15/2021. --15:19 02/15/21 Harry Garza RN 14:40 02/15/2021 Site #1 removed upon discharge. Catheter intact. Bandaid applied. --15:20 02/15/21 Harry Garza RN. 4 Clinical Report - Nurses [facility] Emergency Department [address] [place] [address] Phone #: ext- [phone] 02/15/2021 11:45 Patient: MARVIN LEAHY Sex: M : 1990 Age: 30yLocked/Released at 02/15/2021 17:19 by Harry Garza RN Name Value Range Interpretation Code Description Data Marifer rce(s) Supporting Document(s) ID Date Data Source [id number] 02/15/2021 11:50:00 AM EDT [facility] 1 Clinical Report - Physicians/Mid Levels [facility] Emergency Department [address] [place] [address] Phone #: ext- [phone] 02/15/2021 11:45 Patient: MARVIN LEAHY Sex: M : 1990 Age: 30y Time Seen: 12:31 02/15/2021. Arrived- By ambulance. Historian- patient.HISTORY OF PRESENT ILLNESS Chief Complaint: ABDOMINAL PAIN. This started several days and is still present and worsening. (persistent). It is described as sharp and burning and it is described as located in the suprapubic area and in the left pelvis and radiating to the groin and to the left groin. At its maximum, severity described as severe. When seen in the E.D., severity described as severe. Modifying factors. Not worsened by anything. The patient has had nausea. No loss of appetite, vomiting or diarrhea. No additional abdominal pain. (Patient reports constant pain and urge to urinate. He has also had constant blood in urine. Dr. Willett is scheduling him to have ureteral stent removal end of February. History of kidney stones and chronic back pain. Constant urinary urgency. Taking oxycodone without relief. Ran out of ibuprofen). No recent travel. Similar symptoms previously. Patient has had similar symptoms many times. Recent medical care: The patient was seen recently in the emergency department. Prehospital Treatment: Medications given- morphine IM.REVIEW OF SYSTEMSNo constipation, fever, headache, difficulty breathing or skin rash. No back pain or pain, fever, muscleaches or cough. No vomiting, urinary incontinence, pelvic pain, penile discharge or testicular pain. Thepatient has had difficulty with urination, and pain on urination. The patient has had urinar y frequency andhematuria. All other systems reviewed and are negative.PAST HISTORYSee nurses notes. Has had urinary calculi. Problems: Hematuria. Hypertension. Chronic Back Pain. DVT - Deep Venous Thrombosis. Nephrolithiasis. Additional Surgeries: Ureteral Stent. Medications: oxyCODONE-Acetaminophen Oral (Tablet 5-325 mg), 3x a day as needed. 2 Clinical Report - Physicians/Mid Levels [facility] Emergency Department [address] [place] [address] Phone #: ext- [phone] 02/15/2021 11:45 Patient: MARVIN LEAHY Sex: M : 1990 Age: 30y Divalproex Sodium Oral (Tablet Delayed Release 250 mg), 2x a day. Eliquis Oral (Tablet 5 mg), 2x a day. Escitalopram Oxalate Oral (Tablet 10 mg), 2x a day. HYDROcodone Bitartrate Oral, as needed. Ivermectin Oral (Tablet 3 mg) 3 tabs, every 6 months. Memetasone furoate 15mg , 4x a day. Methocarbamol Oral (Tablet 500 mg), 2x a day. Pregnyl Intramuscular (Solution Reconstituted 70956 unit), 3x a week. risperiDONE Oral (Tablet Disintegrating 1 mg), 2x a day. traZODone HCl Oral (Tablet 50 mg), daily. Trolamine Salicylate External. Xolair Subcutaneous (Solution Reconstituted 150 mg) 300mg, 3x a week. Zofran Oral 4 mg, 3x a day as needed. Allergies: None. Seafood.SOCIAL HISTORYNever smoker.FAMILY HISTORYNegative - denies family medical history.ADDITIONAL NOTESThe nursing notes have been reviewed.PHYSICAL EXAMVital Signs: 02/15/2021 11:46 BP: 134/77. MAP: 96. HR: 71. RR: 18. O2 saturation: 100%. Temp: 97.2 F.Pain level now: 10/10.Appearance: Alert. Oriented X3. Patient in severe distress. (anxious, pacing around the room).Eyes: Pupils equal, round and reactive to light. Eyes normal inspection.ENT: Nose normal. Pharynx normal.Neck: Normal inspection. Neck supple.CVS: Normal heart rate and rhythm. Heart sounds normal. Pulses normal.Respiratory: No respiratory distress. Breath sounds normal. Chest nontender.Abdomen: Soft and nontender. Bowel sounds normal. No organomegaly. No mass. Femoral pulsesequal. (no inguinal masses or hernias).Back: Normal inspection.: Normal genitalia. Testes descended. No tenderness present or scrotal swelling.Skin: Skin warm. Normal skin color. Normal skin turgor.Extremities: Extremities exhibit normal ROM. No calf tenderness. No lower extremity edema.Neuro: Oriented X 3. No motor deficit. No sensory deficit.LABS, X-RAYS, AND EKG 3 Clinical Report - Physicians/Mid Levels [facility] Emergency Department [address] [place] [address] Phone #: ext- [phone] 02/15/2021 11:45 Patient: MARVIN LEAHY Sex: M : 1990 Age: 30y Laboratory Tests: US RENAL COMPLETE: (DERRICK: 02/15/2021 12:31) ( [facility] 02/15/2021 15:10) In Progress RENAL COMPLETE Reason(s): flank pain TRANSPORTATION: S IV? IV?(No) O2? Oxygen?(No) Kamila Urinalysis: (DERRICK: 02/15/2021 12:15) ( MsgRcvd 02/15/2021 13:23) Final results Test Result Flag Units (Reference) URINALYSIS URINALYSIS SOURCE R COLOR yellow (NORMAL: Yello CLARITY clear (NORMAL: Clear SPEC GRAVITY 1.020 (1.001 - 1.030 pH 8 (5 - 9) GLUCOSE NORM (NORMAL: Negat BILIRUBIN NEG (NORMAL: Negat KETONE NEG (NORMAL: Negat PROTEIN NEG (NORMAL: Negat NITRITE NEG (NORMAL: Negat BLOOD 250 A (NORMAL: Negat LEUK EST 100 A (NORMAL: Negat UROBILINOGEN NOR (less than 1.0 MICROSCOPIC See Below WBC 1 - 3 (NORMAL: NONE RBC 3 - 5 (NORMAL: NONE.PROGRESS AND PROCEDURESCourse of Care: 12:46 02/15/21. Patient able to urinate in ED and I was able to witness patient voidingblood tinged clear urine. Multiple ED visits reviewed. CT scan and xray and ultrasound reviewed. 13:37 02/15/21. Urinalysis shows no signs of infection. Ultrasound demonstrates no urinary retention or hydronephrosis. No nephrolithiasis. I suspect the pain may be secondary to indwelling ureteral stent. Old medical records ordered. Disposition: Discharged. Condition: stable.CLINICAL IMPRESSION Left renal colic with hematuria.INSTRUCTIONS 4 Clinical Report - Physicians/Mid Levels [facility] Emergency Department [address] [place] [address] Phone #: ext- [phone] 02/15/2021 11:45 Patient: MARVIN LEAHY Sex: M : 1990 Age: 30y Warnings: GENERAL WARNINGS: Return or contact your physician immediately if your condition worsens or changes unexpectedly, if not improving as expected, or if other problems arise. Understanding of the discharge instructions verbalized by patient. Follow-up with: [facility] Respective Team [facility] [place], , , [address], , [place], [address] Follow up in three days if not well. Follow-up with: Benito Willett M.D., Urology, , [address] [place] [address], [phone] Follow up in three days if not better. Call for an appointment.(Electronically signed by Carter Small 02/15/2021 16:56) Name Value Range Interpretation Code Description Data Marifer rce(s) Supporting Document(s) ID Date Data Source [id number] 02/15/2021 11:50:00 AM EDT [facility] MARVIN Casey VisitID: [id number] Date: 16:11called to lobby by pipe bending machine operator, pt is refusing to leave, field underwriter went and spoke to pt, pt states he wants to beadmitted because something is wrong, Dr Small informed. Called wage and salary administrator continuous absorption process operator no answer, leftmessage, called Sandeep Bulluck and informed of situation and he recommended calling the police, policecalled and awaiting their arrival.(Electronically signed by Michelle Rowland R.N. - 02/15/2021 16:11) Name Value Range Interpretation Code Description Data Marifer rce(s) Supporting Document(s) ID Date Data Source [id number] 02/15/2021 01:22:00 PM EDT [facility] Name Value Range Interpretation Code Description Data Marifer rce(s) Supporting Document(s) [facility] COL[facility] yellow NORMAL: Yellow [facility] CLARITY clear NORMAL: Clear [facility] Specific gravity of Urine by Test strip 1.020 1.001 - 1.030 [facility] pH 8 5 - 9 [facility] Glucose [Mass/volume] in Urine by Test strip NORM NORMAL: Negat [facility] Bilirubin.total [Presence] in Urine by Test strip NEG NORMAL: Negative [facility] Ketones [Presence] in Urine by Test strip NEG NORMAL: Negative [facility] Protein [Mass/volume] in Urine by Test strip NEG NORMAL: Negat [facility] Nitrite [Presence] in Urine by Test strip NEG NORMAL: Negative [facility] BLOOD 250 NORMAL: Negative [facility] Leukocyte esterase [Presence] in Urine by Test strip 100 LLUVIA L: Negative [facility] Urobilinogen [Mass/volume] in Urine by Test strip NOR less fidelia n 1.0 mg/dL [facility] MICROSCOPIC See Below [facility] ital WBC 1 - 3 NORMAL: NONE SEEN [facility] Erythrocytes [#/volume] in Urine by Test strip 3 - 5 NORMAL: NON E SEEN [facility] ID Date Data Source [id number] 01/11/2021 02:18:00 [place] [address] OPERATIVE SUMMARYNAME: TOSIN Rivera DATE OF : 1990ATTENDING PHYS: BENITO WILLETT MD DATE: 01/11/21 MR#: [id number] OF PROCEDURE: 01/11/2021RE- OPERATIVE DIAGNOSIS: 1. Left flank pain. 2. Gross hematuria. 3. History of kidney stones.POST-OPERATIVE DIAGNOSIS: 1. Left flank pain. 2. Gross hematuria. 3. History of kidney stones. 4. Left proximal urethra/UPJ stricture.PROCEDURE PERFORMED: 1. Cystoscopy with bilateral retrograde pyelograms. 2. Left ureteroscopy. 3. Placement of left ureteral stent.ATTENDING SURGEON: Dr. Benito Willett.PHYSICIAN SAFE DEPOSIT CLERK: PERLA Sky.ANESTHESIA: Monitored anesthesia care.ESTIMATED BLOOD LOSS: Minimal.COMPLICATIONS: None.DRAINS: 7 x 24 JJ ureteral stent.DISPOSITION: To the Ambulatory Surgical Unit.CONDITION: Stable.INTRAOPERATIVE FINDINGS:Dense obstructive stricture of the proximal left ureter with hydronephrosis.INDICATIONS FOR PROCEDURE: [address] [place] [address] OPERATIVE SUMMARYNAME: TOSIN Rivera DATE OF : 1990ATTENDING PHYS: BENITO WILLETT MD DATE: 01/11/21 MR#: [id number] Tosin is a 30-year-old gentleman who had previously been seen and evaluated withleft flank pain and gross hematuria. A CT scan had showed mild left hydronephrosis, and hepresented today for a cystoscopy with bilateral retrograde pyelograms and possible ureteroscopy toinvestigate the cause of his flank pain and gross hematuria.DETAILS OF PROCEDURE:After a detailed informed consent was obtained from the patient, he was wheeled into the operatingroom and installed on the operating table in the supine position. Adequate monitored anesthesiacare was then induced, and he was placed in the lithotomy position. The penoscrotal area was thenproperly cleaned, prepped, and draped in the usual sterile fashion. After the proper time-outprocedures were carried out, cystourethroscopy using a 22 Faroese cystoscope mounted on a 30degree lens was performed. There was mild bleeding noted in the urethra, but no urethra pathology.The bladder revealed no intravesical pathologies. Both ureteral orifices were noted to be in normalorthotopic position with efflux of clear urine. Next, the left ureteral orifice was cannulated with anangiographic catheter and left retrograde pyelography was performed. The distal ureter and midureters were all normal. However, the proximal ureter all the way up to the ureteropelvic junctionshowed a significant amount of restriction. There was entry of contrast into the kidney without anydifficulties. The drainage phase, however, showed significant restriction of the contrast material outof the kidney. After observing the drainage phase for approximately 10 minutes and with minimaldrainage noted, the decision was made to proceed with ureteroscopy. Left ureteroscopy was thenperformed, and at the level of corresponding obstruction we noted significant difficulty withpassage of the ureteroscope into the collecting system of the kidney. After attempts for about 5minutes, the onset of a false passage being formed, the decision was made not to press on. We thenproceeded with placement of a 7 x 24 JJ ureteral stent over the guidewire. The proximal aspect ofthe stent was in the renal pelvis while the distal aspect was in the bladder. This was maintained inposition by the pusher while the guidewire was removed, forming proximal and distal curls in therenal pelvis and the urinary bladder, respectively. With the stent now in good position, the bladderwas emptied and the cystoscope was removed. The anesthesia was then reversed, and the patientwas transferred onto a stretcher, on which he was transferred to the Ambulatory Surgical Unit instable condition. The operation was well-tolerated, and there were no complications.Copies of this report to [facility]. [address] [place] [address] OPERATIVE SUMMARYNAME: TOSIN Rivera DATE OF : 1990ATTENDING PHYS: BENITO WILLETT MD DATE: 01/11/21 MR#: [id number]: BENITO WILLETT MD 01/11/21 13:30DT: SANTO 01/11/21 14:04DS: BENITO WILLETT MD 02/12/21 10:59 3 Name Value Range Interpretation Code Description Data Marifer rce(s) Supporting Document(s) ID Date Data Source [id number] 02/12/2021 09:25:00 AM EDT [facility] ([facility]) Name Value Range Interpretation Code Description Data Marifer rce(s) Supporting Document(s) Appearance of Urine Laboratory test result [facility] ([facility]) Color of Urine Laboratory test result [facility] ([facility]) pH of Urine by Test strip 8 5-9 [facility] ([facility]) Spec [place] 1.010 1.001-1.030 [facility] ([facility]) Protein [Presence] in Urine by Test strip Laboratory test result [facility] ([facility]) Leukocytes Laboratory test result [facility] ([facility]) Nitrate [Presence] in Urine Laboratory test result [facility] ([facility]) Inhouse Glucose Laboratory test result [facility] ([facility]) Ketones [Presence] in Urine by Test strip Laboratory test result [facility] ([facility]) Bilirubin.total [Presence] in Urine by Test strip Laboratory test res ult [facility] ([facility]) Urobilinogen Laboratory test result [facility] ([facility]) Blood type and Indirect antibody screen panel - Blood 250 Above high normal [facility] ([facility]) ID Date Data Source [id number] 02/05/2021 03:38:00 PM EDT [facility] ([facility]) Name Value Range Interpretation Code Description Data Marifer rce(s) Supporting Document(s) Fibrin D-dimer [Presence] in Platelet poor plasma Laboratory test result 0.27-0.50 [facility] ([facility]) Is patient fasting? N ID Date Data Source [id number] 02/05/2021 03:38:00 PM EDT [facility] ([facility]) Name Value Range Interpretation Code Description Data Marifer rce(s) Supporting Document(s) Basic Metabolic Pane Laboratory test result [facility] ([facility]) Is patient fasting? N Sodium 141 meq/L 134-153 [facility] ([facility]) Is patient fasting? N Potassium 3.8 meq/L 3.6-5.0 [facility] ([facility]) Is patient fasting? N Chloride 105 meq/L 98-107 [facility] ([facility]) Is patient fasting? N Co2 27 meq/L 22-30 [facility] ([facility]) Is patient fasting? N Glucose 87 mg/dL 70-99 [facility] ([facility]) Is patient fasting? N BUN 9 mg/dL 7-21 [facility] ([facility]) Is patient fasting? N BUN/Creat 10 8-27 [facility] ([facility]) Is patient fasting? N Creatinine 0.9 mg/dL 0.7-1.5 [facility] ([facility]) Is patient fasting? N Calcium 9.7 mg/dL 8.4-10.2 [facility] ([facility]) Is patient fasting? N Anion Gap 9.0 mmol/L 8.0-16.0 [facility] ([facility]) Is patient fasting? N Afr Amer GFR Laboratory test result [facility] ([facility]) Is patient fasting? N Age 30 yrs [facility] ([facility]) Is patient fasting? N Non-Aa GFR Laboratory test result [facility] ([facility]) Is patient fasting? N ID Date Data Source [id number] 02/05/2021 03:38:00 PM EDT [facility] ([facility]) Name Value Range Interpretation Code Description Data Marifer rce(s) Supporting Document(s) Protime 13.0 s 11.0-15.5 [facility] ([facility]) Is patient fasting? N PTT 29.1 s 24.8-36.7 [facility] ([facility]) Is patient fasting? N Inr 0.94 0.93-1.23 [facility] ([facility]) Is patient fasting? N ID Date Data Source [id number] 02/05/2021 03:38:00 PM EDT [facility] ([facility]) Name Value Range Interpretation Code Description Data Marifer rce(s) Supporting Document(s) CBC No Diff Laboratory test result M [facility] ([facility]) Is patient fasting? N WBC 5.8 10^3/uL 4.2-11.0 [facility] ([facility]) Is patient fasting? N Hemoglobin 13.7 g/dL 14.0-16.0 Below low normal [facility] ( [facility]) Is patient fasting? N RBC 4.67 10^6/uL 4.50-6.30 [facility] ([facility]) Is patient fasting? N Hematocrit 41.3 % 41.0-51.0 [facility] ([facility]) Is patient fasting? N MCV 88.4 fL 80.0-94.0 [facility] ([facility]) Is patient fasting? N MCH 29.3 pg 27.0-34.0 [facility] ([facility]) Is patient fasting? N MCHC 33.2 g/dL 31.0-36.0 [facility] ([facility]) Is patient fasting? N Platelets 220 10^3/uL 150-450 [facility] ([facility]) Is patient fasting? N RDW 12.3 % 11.5-14.8 [facility] ([facility]) Is patient fasting? N MPV 10.4 fL 7.4-10.4 [facility] ([facility]) Is patient fasting? N ID Date Data Source [id number] 02/05/2021 03:38:00 PM EDT [facility] ([facility]) Name Value Range Interpretation Code Description Data Marifer rce(s) Supporting Document(s) Dilute ProthrombinTime(dPT) 35.7 sec 0.0-55.0 [facility] ([facility]) Is patient fasting? N dPT Confirm Ratio 1.12 Ratio 0.00-1.40 [facility] ([facility]) Is patient fasting? N Thrombin Time 20.5 sec 0.0-23.0 [facility] ([facility]) Is patient fasting? N dRVVT 35.6 sec 0.0-47.0 [facility] ([facility]) Is patient fasting? N PTT-LA 32.9 sec 0.0-51.9 [facility] ([facility]) Is patient fasting? N Lupus ReflexInterpretation Laboratory test result [facility] ([facility]) Is patient fasting? N ID Date Data Source [id number] 02/05/2021 03:38:00 PM EDT [facility] ([facility]) Name Value Range Interpretation Code Description Data Marifer rce(s) Supporting Document(s) F2 gene [id number] [Presence] in Blood or Tissue by Lookmash genetics method Laboratory test result [facility] ([facility]) Is patient fasting? N ID Date Data Source [id number] 02/05/2021 03:38:00 PM EDT [facility] ([facility]) Name Value Range Interpretation Code Description Data Marifer rce(s) Supporting Document(s) Factor V Leiden Laboratory test result [facility] ([facility]) Is patient fasting? N ID Date Data Source [id number] 02/05/2021 03:38:00 PM EDT [facility] ([facility]) Name Value Range Interpretation Code Description Data Marifer rce(s) Supporting Document(s) Anticardiolipin Ab,IgG,Qn Laboratory test result 0-14 [facility] ([facility]) Is patient fasting? N Anticardiolipin Ab,IgM,Qn Laboratory test result 0-12 [facility] ([facility]) Is patient fasting? N Anticardiolipin Ab,IgA,Qn Laboratory test result 0-11 [facility] ([facility]) Is patient fasting? N ID Date Data Source [id number] 02/05/2021 03:38:00 PM EDT [facility] ([facility]) Name Value Range Interpretation Code Description Data Marifer rce(s) Supporting Document(s) Antithrombin Activity 93 % 75-135 [facility] ( [facility]) Is patient fasting? N Antithrombin Antigen 85 % 72-124 [facility] ([facility]) Is patient fasting? N ID Date Data Source [id number] 02/05/2021 03:38:00 PM EDT [facility] ([facility]) Name Value Range Interpretation Code Description Data Marifer rce(s) Supporting Document(s) Protein C Antigen 126 % 60-150 [facility] ([facility]) Is patient fasting? N Protein S, Free 117 % 57-157 [facility] ([facility]) Is patient fasting? N Protein S, Total 69 % 60-150 [facility] ([facility]) Is patient fasting? N ID Date Data Source [id number] 02/12/2021 02:26:00 PM EDT [facility] Name Value Range Interpretation Code Description Data Marifer rce(s) Supporting Document(s) F2 gene mutations found [Identifier] in Blood or Tissue by Molecular genetics method Nominal COMMENT [facility] l NEGATIVENo mutation identified.Comment:A point mutation ([id number]) in the factor II (prothrombin) gene is thesecond most common cause of inherited thrombophilia. The incidence ofthis mutation in the [place] population is about 2% and in theAfrican Pakistani population it is approximately 0.5%. This mutation israre in the and population. Being heterozygousfor a prothrombin mutation increases the risk for developing venousthrombosis about 2 to 3 times above the general population risk. Beinghomozygous for the prothrombin gene mutation increases the relativerisk for venous thrombosis further, although it is not yet known howmuch further the risk is increased. In women heterozygous for theprothrombin gene mutation, the use of estrogen containing oralcontraceptives increases the relative risk of venous thrombosis about16 times and the risk of developing cerebral thrombosis is alsosignificantly increased. In the prothrombin gene mutationincreases risk for venous thrombosis and may increase risk forstillbirth, placental abruption, pre-eclampsia and growthrestriction. If the patient possesses two or more congenital oracquired thrombophilic risk factors, the risk for thrombosis may riseto more than the sum of the risk ratios for the individual mutations.This assay detects only the prothrombin [id number] mutation and doesnot measure genetic abnormalities elsewhere in the genome. Otherthrombotic risk factors may be pursued through systematic clinicallaboratory analysis. These factors include the R506Q (Leiden)mutation in the Factor V gene, plasma homocysteine levels, as wellas testing for deficiencies of antithrombin III, protein C andprotein S.Genetic Counselors are available for health care providersto discuss results at [phone] ([id number]).Methodology:DNA analysis of the Factor II gene was performed by PCRamplification followed by restriction analysis. Thediagnostic sensitivity is >99% for both. All the tests mustbe combined with clinical information for the most accurateinterpretation. Molecular-based testing is highly accurate,but as in any laboratory test, diagnostic errors may occur.This test was developed and its performance characteristicsdetermined by [facility]. It has not been cleared or approvedby the Food and Drug Administration.Ayshat SR, et al. Blood. 1996; 88:7574-8097.Rohan LEON. Circulation. 2004; 110:e15-e18.Akash I, et al. Arterioscler Thromb Vasc Biol. 1999;19:700-703.Cristiano Barney, PhD, Anastasia Roca, PhD, FACMGW. Johana Vogel, PhD, Minnie Allred, PhD, Edmar Marrero, PhD, Jelani Escamilla, PhD, FACMG ID Date Data Source [id number] 02/11/2021 01:55:00 PM EDT [facility] Name Value Range Interpretation Code Description Data Marifer rce(s) Supporting Document(s) F5 gene mutations found [Identifier] in Blood or Tissue by Molecular genetics method Nominal COMMENT [facility] Result: Negative (no mutation found)Fac tor V Leiden is a specific mutation (R506Q) in the factorV gene that is associated with an increased risk of venousthrombosis. Factor V Leiden is more resistant toinactivation by activated protein C. As a result, factor Vpersists in the circulation leading to a mild hyper-coagulable state. The Leiden mutation accounts for 90% -95% of APC resistance. Factor V Leiden has been reported inpatients with deep vein thrombosis, pulmonary embolus,central retinal vein occlusion, cerebral sinus thrombosisand hepatic vein thrombosis. Other risk factors to beconsidered in the workup for venous thrombosis include [id number] mutation in the factor II (prothrombin) gene,protein S and C deficiency, and antithrombin deficiencies.Anticardiolipin antibody and lupus anticoagulant analysismay be appropriate for certain patients, as well ashomocysteine levels.Contact your local [facility] for information on how to orderadditional testing if desired.Genetic counselors are available for health care providers to discuss results at [phone]).Methodology:DNA analysis of the Factor V gene was performed by allele-specificPCR. The diagnostic sensitivity and specificity is >99% for both.Molecular-based testing is highly accurate, but as in any laboratorytest, diagnostic errors may occur. All test results must be combinedwith clinical information for the most accurate interpretation.This test was developed and its performance characteristics determinedby [facility]. It has not been cleared or approved by the Food and DrugAdministration.References:Gabo Cruz (1995). Clin Lab Med 16:169- 186.Cristiano Barney, PhD, Anastasia Roca, PhD, FACMGW. Johana Vogel, PhD, FACMGNohemy Allred, PhD, KURTMGSteve Marrero, PhD, FACDale Escamilla PhD, FAC ID Date Data Source [id number] 02/08/2021 08:09:00 PM EDT [facility] Name Value Range Interpretation Code Description Data Marifer rce(s) Supporting Document(s) Protein C Ag actual/normal in Platelet poor plasma by Immuno logic method 126 % 60-150 [facility] Protein S Ag actual/normal in Platelet poor plasma by Immuno logic method 69 % 60-150 [facility] This test was developed and its performa nce characteristicsdetermined by [facility]. It has not been cleared or approvedby the Food and Drug Administration. Protein S Free Ag actual/normal in Platelet poor plasm a by Immunologic method 117 % 57-157 [facility] This test was developed and its performa nce characteristicsdetermined by [facility]. It has not been cleared or approvedby the Food and Drug Administration. ID Date Data Source [id number] 02/08/2021 08:06:00 PM EDT [facility] Name Value Range Interpretation Code Description Data Marifer rce(s) Supporting Document(s) aPTT.lupus sensitive W excess phospholip id actual/Normal (normalized LA confirm) 35.7 sec 0.0-55.0 [facility] aPTT.lupus sensitive/aPTT.lupus sensitiv e W excess phospholipid (screen to confirm ratio) 1.12 Ratio 0.00-1.40 [facility] l Thrombin time 20.5 sec 0.0-23.0 [facility] aPTT.lupus sensitive (LA screen) 32.9 sec 0.0-51.9 [facility] dRVVT (LA screen) 35.6 sec 0.0-47.0 [facility] Lupus anticoagulant two screening tests W Reflex [interpretation] C omment: [facility] No lupus anticoagulant was detected. ID Date Data Source [id number] 02/08/2021 02:42:00 PM EDT [facility] Name Value Range Interpretation Code Description Data Marifer rce(s) Supporting Document(s) Antithrombin actual/normal in Platelet poor plasma by Chromo genic method 93 % 75-135 [facility] Direct Xa inhibitor anticoagulants such as rivaroxaban, apixaban andedoxaban will lead to spuriously elevated antithrombin activitylevels possibly masking a deficiency. Antithrombin Ag actual/normal in Platelet poor plasma by Immunologic method 85 % 72-124 [facility] This test was developed and its performa nce characteristicsdetermined by [employer]. It has not been cleared or approvedby the Food and Drug Administration. ID Date Data Source [id number] 02/08/2021 07:51:00 AM EDT [facility] Name Value Range Interpretation Code Description Data Marifer rce(s) Supporting Document(s) Cardiolipin IgG Ab [Units/volume] in Serum by Immunoassay <9 GPL U/mL 0-14 [facility] Negative: <15 Indeterminate: 15 - 20 Low-Med Positive: >20 - 80 High Positive: >80 Cardiolipin IgM Ab [Units/volume] in Serum by Immunoassay <9 MPL U/mL 0-12 [facility] Negative: <13 Indeterminate: 13 - 20 Low-Med Positive: >20 - 80 High Positive: >80 Cardiolipin IgA Ab [Units/volume] in Serum by Immunoassay <9 APL U/mL 0-11 [facility] Negative: <12 Indeterminate: 12 - 20 Low-Med Positive: >20 - 80 High Positive: >80 ID Date Data Source [id number] 02/05/2021 04:31:00 PM EDT [facility] Name Value Range Interpretation Code Description Data Marifer rce(s) Supporting Document(s) CBC NO DIFF [facility] ital COMPLETE BLOOD COUNT Leukocytes [#/volume] in Blood by Automated count 5.8 10^3/uL 4.2 - 1 1.0 [facility] Erythrocytes [#/volume] in Blood by Automated count 4.67 10^6/uL 4. 50 - 6.30 [facility] Hemoglobin [Mass/volume] in Blood 13.7 g/dL 14.0 - 16.0 L [facility] Hematocrit [Volume Fraction] of Blood by Automated count 41.3 % 4 1.0 - 51.0 [facility] Erythrocyte mean corpuscular volume [Entitic volume] by Auto mated count 88.4 fL 80.0 - 94.0 [facility] Erythrocyte mean corpuscular hemoglobin [Entitic mass] by Automated count 29.3 pg 27.0 - 34.0 [facility] Erythrocyte mean corpuscular hemoglobin concentration [Mass/volume] by Automated count 33.2 g/dL 31.0 - 36.0 [facility] Erythrocyte distribution width [Ratio] by Automated count 12.3 % 11.5 - 14.8 [facility] Platelets [#/volume] in Blood by Automated count 220 10^3/uL 150 - 45 0 [facility] Platelet mean volume [Entitic volume] in Blood by Automated count 10.4 fL 7.4 - 10.4 [facility] ID Date Data Source [id number] 02/05/2021 04:31:00 PM EDT [facility] Value Range Interpretation Code Description Data Marifer rce(s) Supporting Document(s) Fibrin D-dimer FEU [Mass/volume] in Platelet poor plasma <0. 27 ug/mL 0.27 - 0.50 [facility] ID Date Data Source [id number] 02/05/2021 04:31:00 PM EDT [facility] Name Value Range Interpretation Code Description Data Marifer rce(s) Supporting Document(s) Prothrombin time (PT) 13.0 SECONDS 11.0 - 15.5 [facility] INR in Platelet poor plasma by Coagulation assay 0.94 0.93 - 1. 23 [facility] aPTT in Blood by Coagulation assay 29.1 SECONDS 24.8 - 36.7 [facility] \\BLDo\\INR INTERPRETATION\\BLDx\\ Therapeutic range for Coumadin and related oral anticoagulants. - International Normalized Ratio (INR): 2.0 - 3.0 for Venous Thrombosis, Pulmonary Embolus, Tissue heart valves, Acute [place] Atrial Fibrillation, Valvular heart disease and recurrent Systemic Embolism. - International Normalized Ratio (INR): 2.5 - 3.5 for Mechanical Prosthetic valve. ID Date Data Source [id number] 02/05/2021 04:31:00 PM EDT [facility] Name Value Range Interpretation Code Description Data Marifer rce(s) Supporting Document(s) BASIC METABOLIC PANEL [facility] BASIC METABOLIC PANEL Sodium [Moles/volume] in Serum or Plasma 141 mEq/L 134 - 153 [facility] Potassium [Moles/volume] in Serum or Plasma 3.8 mEq/L 3.6 - 5.0 [facility] Chloride [Moles/volume] in Serum or Plasma 105 mEq/L 98 - 107 [facility] Carbon dioxide, total [Moles/volume] in Serum or Plasma 27 MEQ/L 22 - 30 [facility] Glucose [Mass/volume] in Serum or Plasma 87 MG/DL 70 - 99 [facility] BUN 9 MG/DL 7 - 21 [facility] Creatinine [Mass/volume] in Serum or Plasma 0.9 MG/DL 0.7 - 1.5 [facility] BUN/CREAT 10 8 - 27 [facility] Calcium [Mass/volume] in Serum or Plasma 9.7 MG/DL 8.4 - 10.2 [facility] Anion gap 3 in Serum or Plasma 9.0 mmol/L 8.0 - 16.0 [facility] AGE 30 yrs [facility] al AFR AMER GFR >60 mL/min [facility] Ho spital NON-AA GFR >60 mL/min [facility] ital Male GFR Inter prentation 20-49 yrs [...] >32 mL/min Normal ID Date Data Source [id number] 01/23/2021 08:00:00 AM EDT [facility] ([facility]) Name Value Range Interpretation Code Description Data Marifer rce(s) Supporting Document(s) Color of Urine Laboratory test result [facility] ([facility]) Appearance of Urine Laboratory test result [facility] ([facility]) Spec [place] 1.015 1.001-1.030 [facility] ([facility]) Leukocytes Laboratory test result [facility] ([facility]) pH of Urine by Test strip 5 5-9 [facility] NT ([facility]) Nitrate [Presence] in Urine Laboratory test result [facility] ([facility]) Protein [Presence] in Urine by Test strip Laboratory test result [facility] ([facility]) Ketones [Presence] in Urine by Test strip Laboratory test result [facility] ([facility]) Inhouse Glucose Laboratory test result [facility] ([facility]) Urobilinogen Laboratory test result [facility] ([facility]) Blood type and Indirect antibody screen panel - Blood 250 Above high normal [facility] ([facility]) Bilirubin.total [Presence] in Urine by Test strip Laboratory test res ult [facility] ([facility]) ID Date Data Source [id number] 01/22/2021 09:08:00 AM EDT [facility] [address] [place] [address] PHONE: [phone] FAX: [phone] Name .................. : TOSIN Rivera Acct Number.................. : [id number] ROOM. ................. : TR-06 MR Number ................... : [id number] Stay type ............. : E/R Discharge Date......... ... : 01/18/21 Admit Date ......... : 01/18/21 Admit Phys .................... : LETICIA Burleson Date of ....... : 1990 Family Phys ................... : NON STAFF Phone .................. : [phone] Age ................................ : 30 Film# .................. .:[id number] Sex ................................. : M Unsigned transcriptions are preliminary reports and do not represent a medical or legal document ABDOMEN 1 VIEW [id number] COMPLETE:01/18/21 17:29 JOLLY 6172 Reason(s): Abdominal Pain ABDOMEN: SINGLE VIEW COMPARISON: 01/13/21 FINDINGS: There is a nonobstructive bowel gas pattern with moderate retained feces. Fecal debris and bowel gas contents partially obscure the kidneys. Definitive renal calculi are not appreciated. There is a left-sided ureteral stent in place, as previous. The upper spine is angled to the right. IMPRESSION: Retained feces without obstruction. Electronically Reviewed and Signed By Marlon Decker MD , 01/22/21 09:08, AML Transcribe Initials: GAYATHRI , Transcribe Date: 01/19/21 00:49, Dictation Date: Copy for: TIFFANIE GONZALEZ via fax Copy for: [address] [place] [address] REC DISCHARGED Page 1 of 1 Name Value Range Interpretation Code Description Data Marifer rce(s) Supporting Document(s) ID Date Data Source [id number] 01/18/2021 01:23:00 PM EST [facility] 1 OrderSheet [facility] Emergency Department [address] [place] [address] Phone #: [phone] rqo- [id number] 01/18/2021 13:22 Patient: MARVIN LEAHY Sex: M : 1990 Age: 30yWEIGHT:92.9 kg (S) HEIGHT:68 inches (S) BMI:31.1ALLERGIES: None, SeafoodCHIEF COMPLAINT: abdominal pain, nausea, vomitingDIAGNOSIS: Abdominal painLAB ORDERSOrder Description Priority Entered Acknowledged InitialedCBC w Diff STAT 13:44 01/18/2021 13:46 Harry Garza RN PA;CMP STAT 13:44 01/18/2021 13:46 Harry Garza RN PA;Urinalysis (Clean STAT 13:44 01/18/2021 17:29 TerrellyCtrina DUNCAN;DIAGNOSTIC STUDY ORDERSOrder Description Priority Entered Acknowledged InitialedAbdomen 1 View STAT 13:45 01/18/2021 13:46 Harry Garza RN PA; NOTES: KUB, Left Stent Ureter Reason for Study: Abdominal PainMEDICATION/IV/DRIP/FLUID ORDERSOrder Description Priority Entered Acknowledged InitialedToradol IM 30 mg 13:44 01/18/2021 Cancelled: Patient Refusal 13:53 Harry Garza RN PA;Zofran ODT PO 8 13:45 01/18/2021 Cancelled: Patient Refusal 13:54 Yomaira DUNCAN;GENERAL ORDERSOrder Description Priority Entered Acknowledged Initialed[Electronically signed by Harry Garza RN (17:29 01/18/2021)] 2 OrderSheet [facility] Emergency Department [address] [place] [address] Phone #: ext- [phone] 01/18/2021 13:22 Patient: MARVIN LEAHY Sex: M : 1990 Age: 30y[Electronically signed by Larry Moreno (21:10 01/19/2021)][Electronically locked by Harry Garza RN (17:29 01/18/2021)] Name Value Range Interpretation Code Description Data Marifer rce(s) Supporting Document(s) ID Date Data Source [id number] 01/18/2021 01:23:00 PM EST [facility] 1 Medication Reconciliation Report [facility] Emergency Department [address] [place] [address] Phone #: ext- [phone] 01/18/2021 13:22 Patient: MARVIN LEAHY Sex: M : 1990 Age: 30yWeight: 92.9 kgHeight/Length: 68 in.BMI: 31.1ALLERGIES: None, SeafoodThe patient's Home Medications are listed below:STOP TAKING THE FOLLOWING MEDICATIONS: Eliquis Oral (5 mg), 2x a dayCONTINUE TAKING THE FOLLOWING MEDICATIONS: Divalproex Sodium Oral (250 mg), 2x a day Escitalopram Oxalate Oral (10 mg), 2x a day HYDROcodone Bitartrate Oral, prn Ivermectin Oral (3 mg) 3 tabs, every 6 months Memetasone furoate 15mg , 4x a day Methocarbamol Oral (500 mg), 2x a day Pregnyl Intramuscular (60541 unit), 3x a week risperiDONE Oral (1 mg), 2x a day traZODone HCl Oral (50 mg), daily Trolamine Salicylate External Xolair Subcutaneous (150 mg) 300mg, 3x a week Zofran Oral 4 mg, 3x a day, prnThe source(s) of the original Home Medication information: 2 M edication Reconciliation Report [facility] Emergency Department [address] [place] [address] Phone #: ext- [phone] 01/18/2021 13:22 Patient: MARVIN LEAHY Sex: M : 1990 Age: 30yNot obtained.The following Medications were given to the patient in the Emergency Department:None.The following Medications were prescribed to the patient:IBU 800 mg tablet Take 1 tablet three times a day for 15 days -- Dispense 45 tablet. Refills: 0.Substitution permitted. Note to Pharmacy - Stop Eliquis, Take with Food or Milk.[facility] [address] [place] [address] [id number]. .ondansetron 8 mg disintegrating tablet Take 1 tablet three times a day for 5 days -- Dispense 15 tablet.Refills: 0. Substitution permitted. Note to Pharmacy - stopped Eliqu is.[facility] [address] [place] [address] [phone]. . -- PERLA Cisse Name Value Range Interpretation Code Description Data Marifer rce(s) Supporting Document(s) ID Date Data Source [id number] 01/18/2021 01:23:00 PM EST [facility] 1 Medication Administration Record [facility] Emergency Department [address] [place] [address] Phone #: ext- [phone] 01/18/2021 13:22 Patient: MARVIN LEAHY Sex: M : 1990 Age: 30yWeight: 92.9 kgHeight/Length: 68 inBMI: 31.1ALLERGIES: None, SeafoodDate/Time Medication Administered Medication Ordered Name Value Range Interpretation Code Description Data Marifer rce(s) Supporting Document(s) ID Date Data Source [id number] 01/18/2021 01:23:00 PM EST [facility] 1 General Instructions [facility] Emergency Department [address] [place] [address] Phone #: ext- [phone] 01/18/2021 13:22 Patient: MARVIN LEAHY Sex: M : 1990 Age: 30yAcute left upper quadrant and left lower quadrant abdominal pain. (s/o Left UPJ Stent).INSTRUCTIONS(Discussed Eliquis with Dr Bhatt, Hem[facility]Onc at [facility] and pt can discontinue Eliquis and take Ibuprofen.).Warnings: Further evaluation is necessary. It is very important to follow up with a healthcare provider.GENERAL WARNINGS: Return or contact your physician immediately if your condition worsens orchanges unexpectedly, if not improving as expected, or if other problems arise. SPECIFICALLY, return ifyou develop fever, the inability to keep fluids down, blood in vomitus, blood in diarrhea, fainting orlightheadedness; or if there is no improvement in the pain.Your Current Medications: Your current home medications have been reviewed.STOP TAKING THE FOLLOWING MEDICATIONS:Eliquis Oral : Tablet 5 mg, 2x a day.CONTINUE TAKING THE FOLLOWING MEDICATIONS:Divalproex Sodium Oral : Tablet Delayed Release 250 mg, 2x a day.Escitalopram Oxalate Oral : Tablet 10 mg, 2x a day.HYDROcodone Bitartrate Oral : prn.Ivermectin Oral : Tablet 3 mg, 3 tabs every 6 months.Memetasone furoate* : 15mg 4x a day.Methocarbamol Oral : Tablet 500 mg, 2x a day.Pregnyl Intramuscular : Solution Reconstituted 00608 unit, 3x a week.risperiDONE Oral : Tablet Disintegrating 1 mg, 2x a day.traZODone HCl Oral : Tablet 50 mg, daily.Trolamine Salicylate External.Xolair Subcutaneous : Solution Reconstituted 150 mg, 300mg 3x a week.Zofran Oral : 4 mg 3x a day, prn.Prescription Medications:IBU 800 mg tablet Take 1 tablet three times a day for 15 days -- Dispense 45 tablet. Refills: 0.Substitution permitted. Note to Pharmacy - Stop Eliquis, Take with Food or Milk.[facility] [address] [place] [address]. .ondansetron 8 mg disintegrating tablet Take 1 tablet three times a day for 5 days -- Dispense 15 tablet.Refills: 0. Substitution permitted. Note to Pharmacy - stopped Eliquis.[facility] [address] [place], [place] [id number]. Phone: [phone] General Instructions [facility] Emergency Department [address] [place] [address] Phone #: ext- [phone] 01/18/2021 13:22 Patient: MARVIN LEAHY Sex: M : 1990 Age: [id number]- 0150 .Follow-up:Follow up with your doctor Thursday even if well. Call for an appointment. Reason for referral: evaluationand treatment. Summary of care provided to patient.Understanding of the discharge instructions verbalized by patient. ADDITIONAL INFORMATIONUnknown Causes of Abdominal Pain (Male)Based on your visit today, the exact cause of your abdominal pain is not clear. Your exam and testsdon't suggest a dangerous cause at this time. However, the signs of a serious problem may takemore time to appear. Although your evaluation was reassuring today, sometimes early in the courseof many conditions, exam and lab tests can appear normal. Therefore, it is important for you to watchfor any new symptoms or worsening of your condition.It may not be obvious what caused your symptoms. Pay attention to things that do seem to makeyour symptoms worse or better and discuss this with your doctor when you follow up.The evaluation of abdominal pain in the emergency department may only require an exam by thedoctor or it may include blood, urine or imaging studies, depending on many factors. Sometime sexams and tests can identify a cause but in many cases, a clear cause is not found. Further testing atfollow up visits may help to suggest a clear diagnosis.Home care Rest as much as you can until your next exam. Try to avoid any medicines (unless otherwise directed by your doctor), foods, activities, or other factors that may have contributed to your symptoms. Try to eat foods that you know that you have tolerated well in the past. Certain diets may be recommended for some conditions that cause abdominal pain. However, since the cause of your symptoms may not be clear, discuss your diet more with your healthcare provider or specialist for further recommendations. If you have diarrhea, it may help to avoid dairy (lactose) for the time being. A low fat, low fiber diet can also help. Eating several small meals per day as opposed to 2 or 3 larger meals may help. Avoid dehydration. Make sure to drink plenty of water. Other options include broth, soup, 3 General Instructions [facility] Emergency Department [address] [place] [address] Phone #: ext- [phone] 01/18/2021 13:22 Patient: MARVIN LEAHY Sex: M : 1990 Age: 30y gelatin, sports drinks, or other clear liquids. Watch closely for anything that may make your symptoms worse or better. Pay close attention to symptoms below that may mean your condition is getting worse.Follow-up careFollow up with your healthcare provider if your symptoms are not improving, or as advised. In somecases, you may need more testing.When to seek medical adviceCall your healthcare provider right away if any of these occur: Pain is becoming worse You are unable to take your medicines or can't keep water down due to excessive vomiting Swelling of the abdomen Fever of 100.4F (38C) or higher, or as directed by your healthcare provider Blood in vomit or bowel movements (dark red or black color) Jaundice (yellow color of eyes and skin) New onset of weakness, dizziness or fainting New onset of chest, arm, back, neck or jaw pain [phone] [employer] [place] [address]. All rights reserved. This information is not intended as asubstitute for professional medical care. Always follow your healthcare professional's instructions. You have been given the following additional information: Unknown Causes of Abdominal Pain (Male)(Electronically signed by PERLA Cisse 01/19/2021 21:10) Name Value Range Interpretation Code Description Data Marifer rce(s) Supporting Document(s) ID Date Data Source [id number] 01/18/2021 01:23:00 PM EST [facility] 1 Clinical Report - Nurses [facility] Emergency Department [address] [place] [address] Phone #: [phone]- [phone] 01/18/2021 13:22 Patient: MARVIN LEAHY Sex: M : 1990 Age: 30yTRIAGEArrived by EMS. Historian: patient. Unaccompanied. ( ureter STENT PLACED BY OBEN LASTFRIDAY, left abd pain started this am, pt states he has bloody urine, states he has been having troublevoiding and it has not gotten any better since the procedure).Acuity: LEVEL 3.Chief Complaint: ABDOMINAL PAIN and VOMITING.Alert.This started today.Treatment PROGRAM SUPPORT SPECIALIST:(fentanyl (EMS) and hydrocodone 0900).SEPSIS SCREEN: SIRS SCREEN NEGATIVE. SEPSIS SCREEN NEGATIVE. No suspected or confirmedsigns of infection present. --13:28 01/18/21 Michelle Rowland R.N.13:01/18/21. BP: 167/68. MAP: 101. HR: 84. RR: 16. O2 saturation: 98%. Temp: 98.2 F. Pain levelnow: 05/18. --13:01/18/21 Michelle Rowland R.N.Weight: 92.9 kg stated. Height/Length: 68 inches Per Patient. BMI: 31.1. --13:01/18/21 Michelle Rowland R.N.MedicationsDivalproex Sodium Oral (Tablet Delayed Release 250 mg), 2x a day. Eliquis Oral (Tablet 5 mg), 2x a day. Escitalopram Oxalate Oral (Tablet 10 mg), 2x a day. Ivermectin Oral (Tablet 3 mg) 3 tabs, every 6 months. --13:01/18/21 Michelle Rowland R.N. Memetasone furoate 15mg , 4x a day. Methocarbamol Oral (Tablet 500 mg), 2x a day. Pregnyl Intramuscular (Solution Reconstituted 94661 unit), 3x a week. risperiDONE Oral (Tablet Disintegrating 1 mg), 2x a day. traZODone HCl Oral (Tablet 50 mg), daily. Trolamine Salicylate External. Xolair Subcutaneous (Solution Reconstituted 150 mg) 300mg, 3x a week. Zofran Oral 4 mg, 3x a day as needed. --13:01/18/21 Michelle Rowland R.N. HYDROcodone Bitartrate Oral, as needed. --13:01/18/21 Michelle Rowland R.N.AllergiesNone.Seafood. --13:26 01/18/21 Michelle Rowland R.N. 2 Clinical Report - Nurses [facility] Emergency Department [address] [place] [address] Phone #: ext- [phone] 01/18/2021 13:22 Patient: MARVIN LEAHY Sex: M : 1990 Age: 30yPROBLEMS:Hematuria.Hypertension.Lumbar Strain.Chronic Back Pain.DVT - Deep Venous Thrombosis.Flank Pain.Syncope.Ureterolithiasis.Urinary Calculi.Nephrolithiasis.Renal Colic.Skin Problems. --13:26 01/18/21 Michelle Rowland R.N.ADDITIONAL SURGERIES:Ureteral Stent. --13:26 01/18/21 Michelle Rowland R.N.HistoryPAST MEDICAL HX: Immunizations: up-to-date.SOCIAL HX: Never smoker. No alcohol use or drug use. No recent travel. No known contact with a sickindividual. He was offered HIV testing but declined and hepatitis C testing but declined. He has nottraveled outside the [place]Infectious disease exposure: No infectious [...] no deficiencies.FUNCTIONAL ASSESSMENT: Functional assessment: no impairments noted.LEARNING NEEDS ASSESSMENT: The learning needs assessment revealed no barriers.FALL RISK ASSESSMENT: Fall risk assessment completed. No risk factors identified.SKIN INTEGRITY ASSESSMENT: Skin integrity risk assessment completed. No skin integrity risk 3 Clinical Report - Nurses [facility] Emergency Department [address] [place] [address] Phone #: ext- [phone] 01/18/2021 13:22 Patient: MARVIN LEAHY Sex: M : 1990 Age: 30y identified. --13:28 01/18/21 Michelle Rowland R.N. Interventions Identification band on patient. To treatment room. --13:28 01/18/21 Michelle Rowland R.N. No allergy band on patient. --13:31 01/18/21 Harry Garza RN.PHYSICAL CYCJGWTMNU09:32 01/18/21. To room via stretcher.GENERAL / NEURO / PSYCH: Alert. Oriented X 4. Appears in pain and anxious.RESPIRATORY: Respirations not labored. Breath sounds within normal limits.CVS: Capillary refill less than 2 seconds.GI / : Abdomen soft. Abdominal tenderness in the left lower quadrant.SKIN: Skin is warm and dry. --13:32 01/18/21 Harry Garza RN.NURSING PROGRESS NOTESPatient gowned. Reassurance given. Two patient identifiers checked. Call light placed in reach. Siderails up x 2. Bed placed in lowest position. Brakes of bed on. Patient ready for evaluation. --13: Michelle Rowland R.N. Checked patient name and birthdate: patient confirmed. Blood samples drawn by [employer] ([id number]). --13:54 01/18/21 Harry Garza RN ( 1350 pt refusing Zofran and Toradol P A notified). --13:55 01/18/21 Harry Garza RN 14:00 01/18/21. BP: 157/87. MAP: 110. HR: 88. RR: 16. O2 saturation: 99%. --14:00 01/18/21 [place] ccna, [facility], ER Tech1 Patient transported to radiology by wheelchair with mask and medical imaging technologist. ([id number]). --14:30 01/18/21 Harry Garza RN Correction --14:31 01/18/21 Harry Garza RN ( 8025 Dr Romero in to see pt). --14:32 01/18/21 Harry Garza RN Patient transported to radiology by stretcher with tech. --14:43 01/18/21 Michelle Rowland R.N. Patient transported by stretcher with mask. ([address] Romero). Patient returned from radiology by stretcher with mask and medical imaging technologist. ([id number]). --14:45 01/18/21 Harry Garza RN 14:58 01/18/21. BP: 138/83. MAP: 101. HR: 76. RR: 16. O2 saturation: 99%. --14:58 01/18/21 [place] ccna, [facility] Tech1.DISPOSITION / DISCHARGE 15:35 01/18/21. Departure time: 15:35 01/18/2021. Condition at departure: improved. No learning barriers present. 4 Clinical Report - Nurses [facility] Emergency Department [address] [place] [address] Phone #: ext- [phone] 01/18/2021 13:22 Patient: MARVIN LEAHY Sex: M : 1990 Age: 30y Discharge instructions provided and reviewed with the patient. Reviewed warnings (stop Eliquis start motrin 800 mg). Reviewed medication(s) side effect s, precautions, dosing and course information. Prescription(s) sent electronically to pharmacy. Reviewed referral to a urologist. Provided to follow-up provider. Patient verbalized understanding. Written instructions provided in [place]. The patient was discharged by the physician assistant professor of forestry. He was discharged home. He left ambulatory and via private vehicle. Patient driving. --15:43 01/18/21 Harry Garza RN 15:35 01/18/21. BP: 132/84. MAP: 100. HR: 66. RR: 16. O2 saturation: 100% on room air. Temp: 97 F (oral). Pain level now: 03/18. --15:43 01/18/21 Harry Garza RN.Locked/Released at 17:29 by Harry Garza RN Name Value Range Interpretation Code Description Data Marifer rce(s) Supporting Document(s) ID Date Data Source [id number] 01/18/2021 01:23:00 PM [facility] 1 Clinical Report - Physicians/Mid Levels [facility] Emergency Department [address] [place] [address] Phone #: ext- [phone] 01/18/2021 13:22 Patient: MARVIN LEAHY Sex: M : 1990 Age: 30y Time Seen: 13:35 01/18/2021. Arrived- By private vehicle. Historian- patient.HISTORY OF PRESENT ILLNESS Chief Complaint: ABDOMINAL PAIN and VOMITING and NAUSEA. This started 1 weeks ago; ureter STENT PLACED BY ELENI LAST THURSDAY, left abd pain started this am, pt states he has bloody urine, states he has been having trouble voiding and it has not gotten any better since the procedure and is still present. It was abrupt in onset and has been intermittent. It is described as "pain" and cramping and it is described as located in the left abdomen and left lower quadrant. At its maximum, severity described as severe. When seen in the E.D., it was almost gone. The patient has had nausea and vomiting. No loss of appetite or diarrhea. Similar symptoms previously. Patient has had similar symptoms several times. Recent medical care: The patient was seen recently at this facility in the emergency department.REVIEW OF SYSTEMSNo constipation, black stools, hematemesis, urinary frequency or bloody stools. No fever, headache, sorethroat, blurred vision or chest pain. No difficulty breathing, joint pain, skin rash, chills or back pain. Thepatient has had difficulty with urination, and pain on urination.PAST HISTORYProblems:Hematuria.Hypertension.Lumbar Strain.Chronic Back Pain.DVT - Deep Venous Thrombosis.Flank Pain.Syncope.Ureterolithiasis.Urinary Calculi.Nephrolithiasis.Renal Colic.Skin Problems. Additional Surgeries: Ureteral Stent. Medications: HYDROcodone Bitartrate Oral, as needed. 2 Clinical Report - Physicians/[facility] Emergency Department [address] [place] [address] Phone #: ext- [phone] 01/18/2021 13:22 Patient: MARVIN LEAHY Sex: M : 1990 Age: 30y Memetasone furoate 15mg , 4x a day. Methocarbamol Oral (Tablet 500 mg), 2x a day. Pregnyl Intramuscular (Solution Reconstituted 70659 unit), 3x a week. risperiDONE Oral (Tablet Disintegrating 1 mg), 2x a day. traZODone HCl Oral (Tablet 50 mg), daily. Trolamine Salicylate External. Xolair Subcutaneous (Solution Reconstituted 150 mg) 300mg, 3x a week. Zofran Oral 4 mg, 3x a day as needed. Divalproex Sodium Oral (Tablet Delayed Release 250 mg), 2x a day. Eliquis Oral (Tablet 5 mg), 2x a day. Escitalopram Oxalate Oral (Tablet 10 mg), 2x a day. Ivermectin Oral (Tablet 3 mg) 3 tabs, every 6 months. Allergies: None. Seafood.SOCIAL HISTORYNever smoker. No alcohol use or drug use.PHYSICAL EXAMVital Signs: 01/18/2021 13:23 BP: 167/68. MAP: 101. HR: 84. RR: 16. O2 saturation: 98%. Temp: 98.2 F.Pain level now: 7/10. Have been reviewed as abnormal. Hypertensive. Oxygen saturation normal.Appearance: Alert. Oriented X3. No acute distress.Eyes: Pupils equal, round and reactive to light. Eyes normal inspection.ENT: Ears normal. Nose normal. Pharynx normal.Neck: Normal inspection. Neck supple.CVS: Normal heart rate and rhythm. Heart sounds normal.Respiratory: No respiratory distress. Breath sounds normal.Abdomen: Soft. Tenderness in the left side of the abdomen and left lower quadrant. Bowel soundsnormal. No organomegaly. No mass.Back: Normal inspection.Skin: Skin warm and dry. Normal skin color. No rash. Normal skin turgor.Extremities: Extremities exhibit normal ROM. No lower extremity edema.Neuro: Oriented X 3.LABS, X-RAYS, AND EKGKUB: (Retained feces without obstruction). Views: supine AP. The X-rays were interpreted by theradiologist and contemporaneously by me. Interpretation time: 15:27 01/18/2021.Laboratory Tests: Laboratory tests have been ordered, with results reviewed and considered in themedical decision making process. CBC w Diff: (DERRICK: 01/18/2021 13:54) ( MsgRcvd 01/18/2021 14:57) Final results Test Result Flag Units (Reference) CBC W/AUTOMATED DIFF COMPLETE BLOOD COUNT 3 Clinical Report - Physicians/Mid Levels [facility] Emergency Department [address] [place] [address] Phone #: ext- [phone] 01/18/2021 13:22 [id number] Sex: M : 1990 Age: 30y WBC 5.2 10/uL (4.2 - 11.0) RBC 4.81 10/uL (4.50 - 6.30) HEMOGLOBIN 14.5 g/dL (14.0 - 16.0) HEMATOCRIT 42.3 % (41.0 - 51.0) MCV 87.9 fL (80.0 - 94.0) MCH 30.1 pg (27.0 - 34.0) MCHC 34.3 g/dL (31.0 - 36.0) RDW 12.1 % (11.5 - 14.8) PLATELETS 196 10/uL (150 - 450) MPV 11.0 H fL (7.4 - 10.4) NEUT 51.1 % (37.0 - 80.0) LYMPH 37.3 % (25.0 - 40.0) MONO 8.5 H % (3.0 - 8.0) EOS 2.5 % (0.0 - 7.0) BASO 0.4 % (0.0 - 2.0) %IG 0.2 H % (0.0 - 0.0) %NRBC 0.0 % (0.0 - 0.0) #NEUT 2.65 10/uL (2.00 - 6.90) #LYMPH 1.93 10/uL (0.60 - 3.40) #MONO 0.44 10/uL (0.00 - 0.90) #EOS 0.13 10/uL (0.00 - 0.70) #BASO 0.02 10/uL (0.00 - 0.20) #IG 0.01 10/uL (0.00 - 0.10) #NRBC 0.00 10/uL (0.00 - 0.00) MANUAL DIFF SEE BELOW SEGS 44 % (37 - 80) %LYMPH 39 % (25 - 40) %MONO 13 H % (3 - 8) %EOS 4 % (0 - 7) RBC MORPH NOT INDICATEDCMP: (DERRICK: 01/18/2021 13:54) ( MsgRcvd 01/18/2021 14:47) Final results Test Result Flag Units (Reference) COMPREHENSIVE METABOLIC PANEL COMPREHENSIVE METABOLIC PANEL SODIUM 136 mEq/L (134 - 153) POTASSIUM 3.7 mEq/L (3.6 - 5.0) CHLORIDE 103 mEq/L (98 - 107) CO2 26 MEQ/L (22 - 30) GLUCOSE 117 H MG/DL (70 - 99) BUN 10 MG/DL (7 - 21) CREATININE 0.7 MG/DL (0.7 - 1.5) BUN/CREAT 14 (8 - 27) TOTAL PROTEIN 6.8 G/DL (6.3 - 8.2) ALBUMIN 4.3 G/DL (3.9 - 5.0) GLOBULIN 2.5 GM/DL (2.4 - 3.2) A/G RATIO 1.7 (0.8 - 2.0) CALCIUM 9.0 MG/DL (8.4 - 10.2) TOTAL BILI <0.7 MG/DL (0.2 - 1.3) ALKALINE PHOS 59 U/L (38 - 126) SGOT/AST 25 U/L (5 - 40) SGPT/ALT 29 U/L (7 - 56) ANION GAP 7.0 L mmol/L (8.0 - 16.0) AGE 30 yrs NON-AA GFR >60 mL/min AFR AMER GFR >60 mL/min Male GFR Interprentation 20-49 yrs >60 mL/min Gpcrye08-48 yrs >56 mL/min Normal 60-69 yrs >49 mL/min Normal 70-79yrs>42 mL/min Normal 80 and above >35 mL/min Normal Female GFRInterpretation 20-39 yrs >60 mL/min Normal 40-49 yrs >58 mL/min 4 Clinical Report - Physicians/Mid Levels [facility] Emergency Department [address] [place] [address] Phone #: ext- [phone] 01/18/2021 13:22 Patient: MARVIN LEAHY Sex: M : 1990 Age: 30y Normal 50-59 yrs >51 mL/min Normal 60-69 yrs >45 mL/min Normal 70-79 yrs >39 mL/min Normal 80 and above >32 mL/min Normal.PROGRESS AND PROCEDURESCourse of Care: 15:Jan 18 2021. Evaluation after observation. (Pt was evaluated in the ED by Daya and pt refused stent removal, I talked to Dr Weller Hem/Onc at [facility] and we will stop his Eliquis and hecan take Ibuprofen safely with food.). Patient counseled in person regarding the patient's stable condition, test results, diagnosis and need for follow-up. Patient agrees with plan of care. 15:Jan 18 2021. Disposition: Discharged home in good and improved condition (Jan 18 2021).CLINICAL IMPRESSION Acute left upper quadrant and left lower quadrant abdominal pain. (s/o Left UPJ Stent).INSTRUCTIONS (Discussed Eliquis with Tin Johnson/Onc at [facility] and pt can discontinue Eliquis and take Ibuprofen.). Warnings: Further evaluation is necessary. It is very important to follow up with a healthcare provider. GENERAL WARNINGS: Return or contact your physician immediately if your condition worsens or changes unexpectedly, if not improving as expected, or if other problems arise. SPECIFICALLY, return if you develop fever, the inability to keep fluids down, blood in vomitus, blood in diarrhea, fainting or lightheadedness; or if there is no improvement in the pain. Your Current Medications: Your current home medications have been reviewed. STOP TA CYNDI THE FOLLOWING MEDICATIONS: Eliquis Oral : Tablet 5 mg, 2x a day. CONTINUE TAKING THE FOLLOWING MEDICATIONS: Divalproex Sodium Oral : Tablet Delayed Release 250 mg, 2x a day. Escitalopram Oxalate Oral : Tablet 10 mg, 2x a day. HYDROcodone Bitartrate Oral : prn. Ivermectin Oral : Tablet 3 mg, 3 tabs every 6 months. Memetasone furoate* : 15mg 4x a day. Methocarbamol Oral : Tablet 500 mg, 2x a day. Pregnyl Intramuscular : Solution Reconstituted 21195 unit, 3x a week. risperiDONE Oral : Tablet Disintegrating 1 mg, 2x a day. traZODone HCl Oral : Tablet 50 mg, daily. 5 Clinical Report - Physicians/Mid Levels [facility] Emergency Department [address] [place] [address] Phone #: ext- [phone] 01/18/2021 13:22 Patient: MARVIN LEAHY Sex: M : 1990 Age: 30y Trolamine Salicylate External. Xolair Subcutaneous : Solution Reconstituted 150 mg, 300mg 3x a week. Zofran Oral : 4 mg 3x a day, prn. Prescription Medications: IBU 800 mg tablet Take 1 tablet three times a day for 15 days -- Dispense 45 tablet. Refills: 0. Substitution permitted. Note to Pharmacy - Stop Eliquis, Take with Food or Milk. [facility] [address] [place] [address] [phone]. . ondansetron 8 mg disintegrating tablet Take 1 tablet three times a day for 5 days -- Dispense 15 tablet. Refills: 0. Substitution permitted. Note to Pharmacy - stopped Eliquis. [facility] [address] [place] [address] [phone]. . Follow- up: Follow up with your doctor Thursday even if well. Call for an appointment. Reason for referral: evaluation and treatment. Summary of care provided to patient. Understanding of the discharge instructions verbalized by patient.(Electronically signed by PERLA Cisse 01/19/2021 21:10) Name Value Range Interpretation Code Description Data Marifer rce(s) Supporting Document(s) ID Date Data Source [id number] 01/23/2021 07:12:00 AM EDT [facility] Name Value Range Interpretation Code Description Data Marifer rce(s) Supporting Document(s) CULTURE URINE [facility] _CULTURE URINE_$$[id number]$$725617$$426868$$105301$$097345$$465944$$638666$$915490$$312691$$ 950911$$256511$$969182$$301817$$455715$$050378$$211756$$711861$$748795$$605674$$ 874018$$403210$$310761$$144704$$187455$$273001$$430249$$883161 -- Continued on next page --Patient: TOSIN Rivera Order: [id number] Page 2Culture: CULTURE URINE Status: Final ====$$[id number]$$[id number] DATE/TIME: 01/22/2021 19:05Culture: CULTURE URINE Status: FinalUrine Culture,Comprehensive: P1No growth in 36 - 48 hours.P1 Test performed by: [facility] Irlanda JOCELYN #: [id number] [address] [place] [address] [id number] [facility] [id number] Director : Steve Prater MD NPI #:Decating Machine Operator : [email or web address] REF ID Date Data Source [id number] 01/18/2021 03:59:00 PM EST [facility] Name Value Range Interpretation Code Description Data Marifer rce(s) Supporting Document(s) UR[facility]ALYSIS [facility] URINALYSIS SOURCE R [facility] COLOR brown NORMAL: Yellow [facility] CLARITY clear NORMAL: Clear [facility] Specific gravity of Urine by Test strip 1.015 1.001 - 1.030 [facility] pH 8 5 - 9 [facility] Glucose [Mass/volume] in Urine by Test strip NORM NORMAL: Negat xiomara [facility] Bilirubin.total [Presence] in Urine by Test strip NEG NORMAL: Negative [facility] Ketones [Presence] in Urine by Test strip 5 NORMAL: Negative A [facility] Protein [Mass/volume] in Urine by Test strip 100 NORMAL: Negat xioamra A [facility] Nitrite [Presence] in Urine by Test strip NEG NORMAL: Negative [facility] BLOOD 250 NORMAL: Negative [facility] Leukocyte esterase [Presence] in Urine by Test strip 100 LLUVIA L: Negative [facility] Urobilinogen [Mass/volume] in Urine by Test strip NOR less fidelia n 1.0 mg/dL [facility] MICROSCOPIC See Below [facility] ital WBC 15 - 20 NORMAL: NONE SEEN A [facility] Erythrocytes [#/volume] in Urine by Test strip TNTC NORMAL: NON E SEEN A [facility] ID Date Data Source [id number] 01/18/2021 02:56:00 PM EST [facility] Name Value Range Interpretation Code Description Data Marifer rce(s) Supporting Document(s) CBC W/AUTOMATED DIFF [facility] COMPLETE BLOOD COUNT Leukocytes [#/volume] in Blood by Automated count 5.2 10^3/uL 4.2 - 1 1.0 [facility] Erythrocytes [#/volume] in Blood by Automated count 4.81 10^6/uL 4. 50 - 6.30 [facility] Hemoglobin [Mass/volume] in Blood 14.5 g/dL 14.0 - 16.0 [facility] Hematocrit [Volume Fraction] of Blood by Automated count 42.3 % 4 1.0 - 51.0 [facility] Erythrocyte mean corpuscular volume [Entitic volume] by Auto mated count 87.9 fL 80.0 - 94.0 [facility] Erythrocyte mean corpuscular hemoglobin [Entitic mass] by Automated count 30.1 pg 27.0 - 34.0 [facility] Erythrocyte mean corpuscular hemoglobin concentration [Mass/volume] by Automated count 34.3 g/dL 31.0 - 36.0 [facility] Erythrocyte distribution width [Ratio] by Automated count 12.1 % 11.5 - 14.8 [facility] Platelets [#/volume] in Blood by Automated count 196 10^3/uL 150 - 45 0 [facility] Platelet mean volume [Entitic volume] in Blood by Automated count 11.0 fL 7.4 - 10.4 H [facility] Neutrophils/100 leukocytes in Blood by Automated count 51.1 % 37. 0 - 80.0 [facility] Lymphocytes/100 leukocytes in Blood by Manual count 37.3 % 25.0 - 40.0 [facility] Monocytes/100 leukocytes in Blood by Automated count 8.5 % 3.0 - 8.0 H [facility] Eosinophils/100 leukocytes in Blood by Automated count 2.5 % 0.0 - 7.0 [facility] Basophils/100 leukocytes in Blood by Automated count 0.4 % 0.0 - 2.0 [facility] %IG 0.2 % 0.0 - 0.0 H [facility] al %NRBC 0.0 % 0.0 - 0.0 [facility] Neutrophils [#/volume] in Blood by Automated count 2.65 10^3/uL 2.00 - 6.90 [facility] Lymphocytes [#/volume] in Blood by Automated count 1.93 10^3/uL 0.60 - 3.40 [facility] Monocytes [#/volume] in Blood by Automated count 0.44 10^3/uL 0.00 - 0.90 [facility] Eosinophils [#/volume] in Blood by Automated count 0.13 10^3/uL 0.00 - 0.70 [facility] Basophils [#/volume] in Blood by Automated count 0.02 10^3/uL 0.00 - 0.20 [facility] #IG 0.01 10^3/uL 0.00 - 0.10 [facility] ospital #NRBC 0.00 10^3/uL 0.00 - 0.00 [facility] MANUAL DIFF SEE BELOW [facility] ital Segmented neutrophils/100 leukocytes in Blood by Manual count 44 % 37 - 80 [facility] %LYMPH 39 % 25 - 40 [facility] %MONO 13 % 3 - 8 H [facility] %EOS 4 % 0 - 7 [facility] RBC MORPH NOT INDICATED [facility] ID Date Data Source [id number] 01/18/2021 02:47:00 PM EST [facility] Name Value Range Interpretation Code Description Data Marifer rce(s) Supporting Document(s) COMPREHENSIVE METABOLIC PANEL [facility] COMPREHENSIVE METABOLIC PANEL Sodium [Moles/volume] in Serum or Plasma 136 mEq/L 134 - 153 [facility] Potassium [Moles/volume] in Serum or Plasma 3.7 mEq/L 3.6 - 5.0 [facility] Chloride [Moles/volume] in Serum or Plasma 103 mEq/L 98 - 107 [facility] Carbon dioxide, total [Moles/volume] in Serum or Plasma 26 MEQ/L 22 - 30 [facility] Glucose [Mass/volume] in Serum or Plasma 117 MG/DL 70 - 99 H [facility] BUN 10 MG/DL 7 - 21 [facility] Creatinine [Mass/volume] in Serum or Plasma 0.7 MG/DL 0.7 - 1.5 [facility] BUN/CREAT 14 8 - 27 [facility] Protein [Mass/volume] in Serum or Plasma 6.8 G/DL 6.3 - 8.2 [facility] Albumin [Mass/volume] in Serum or Plasma 4.3 G/DL 3.9 - 5.0 [facility] Globulin [Mass/volume] in Serum by calculation 2.5 GM/DL 2.4 - 3.2 [facility] A/G RATIO 1.7 0.8 - 2.0 [facility] Calcium [Mass/volume] in Serum or Plasma 9.0 MG/DL 8.4 - 10.2 [facility] Bilirubin.total [Mass/volume] in Serum or Plasma <0.7 MG/DL 0.2 - 1.3 [facility] Alkaline phosphatase [Enzymatic activity/volume] in Serum or Plasma 59 U/L 38 - 126 [facility] Aspartate aminotransferase [Enzymatic activity/volume] in Serum or Plasma 25 U/L 5 - 40 [facility] Alanine aminotransferase [Enzymatic activity/volume] in Seru m or Plasma 29 U/L 7 - 56 [facility] Anion gap 3 in Serum or Plasma 7.0 mmol/L 8.0 - 16.0 L [facility] AGE 30 yrs [facility] NON-AA GFR >60 mL/min [facility] AFR AMER GFR >60 mL/min [facility] Male GFR In [...] >32 mL/min Normal ID Date Data Source [id number] 01/15/2021 11:53:00 AM EST [facility] [address] [place] [address] PHONE: [phone] FAX: [phone] Name .................. : TOSIN WONG Cristino Acct Number.................. : [id number] ROOM. ................. : TR-1A MR Number ................... : [id number] Stay type ............. : E/R Discharge Date......... ... : 01/13/21 Admit Date ....... .. : 01/13/21 [facility] Date of ....... : 1990 Family Phys ................... : NON STAFF Phone .................. : [phone] Age ................................ : 30 Film# .................. .:[id number] Sex ................................. : M Unsigned transcriptions are preliminary reports and do not represent a medical or legal document ABDOMEN MULTIPLE VIEW [id number] COMPLETE:01/13/21 13:13 5757 Reason(s): Stent placement MULTIPLE VIEW ABDOMEN WITH PA CHEST: INDICATION: Stent placement. FINDINGS: The lungs are clear. The cardiac silhouette is normal in size and contour. No acute osseous abnormality. There is a nonobstructive bowel gas pattern with a moderate amount of stool. No acute osseous abnormality is noted. There is a left-sided double J stent in approximately satisfactory position. IMPRESSION: Left-sided double J stent in approximately satisfactory position. Exact positioning unable to be precisely located on plain film. Electronically Reviewed and Signed By Krunal Valverde M.D. , 01/15/21 11:53, [facility] Transcribe Initials: GAYATHRI , Transcribe Date: 01/13/21 17:37, Dictation Date: Copy for: NAKITA HINKLE via fax Copy for: 710 MED REC DISCHARGED Page 1 of 1 Name Value Range Interpretation Code Description Data Marifer rce(s) Supporting Document(s) ID Date Data Source [id number] 01/14/2021 03:34:00 [place] [address] PHONE: [phone] FAX: [phone] Name .................. : LIDIAINDIGO Rivera Acct Number.................. : [id number] ROOM. ................. : TR-1A MR Number ................... : [id number] Stay type ............. : E/R Discharge Date......... ... : 01/13/21 Admit Date ....... .. : 01/13/21 [facility] .................... [facility] Date of ....... : 1990 Family Phys ................... : NON STAFF Phone .................. : [phone] Age ................................ : 30 Film# .................. .:[id number] Sex ................................. : M Unsigned transcriptions are preliminary reports and do not represent a medical or legal document BLADDER 95630 COMPLETE:01/13/21 12:37 BAW 5746 Reason(s): Stent placed in L on Thursday and ahs pain BLADDER ULTRASOUND: INDICATION: Pain, hematuria, stent placed on Thursday. FINDINGS: Bladder ultrasound performed. The bladder measures 7.5 x 6.5 x 6.1 cm. There is a catheter identified within the bladder. No filling defects. Ureteral jets not visualized. IMPRESSION: Unremarkable limited bladder ultrasound. No bladder wall thickening. Stent in place. Catheter in place within the bladder. Ureteral jets not visualized. Electronically Reviewed and Signed By Clyde Palm MD , 01/14/21 15:34, [facility] Transcribe Initials: GAYATHRI , Transcribe Date: 01/13/21 17:09, Dictation Date: Copy for: NAKITA HINKLE via fax Copy for: [address] [place] [address] DISCHARGED Page 1 of 1 Name Value Range Interpretation Code Description Data Marifer rce(s) Supporting Document(s) ID Date Data Source [id number] 01/14/2021 03:27:00 PM EST [facility] [address] [place] [address] PHONE: [phone] FAX: [phone] Name .................. : TOSIN Rivera Acct Number.................. : [id number] ROOM. ................. : TR-1A MR Number ................... : [id number] Stay type ............. : E/R Discharge Date......... ... : 01/13/21 Admit Date ....... .. : 01/13/21 Admit Phys .................... : [facility] Date of ....... : 1990 Family Phys ................... : NON STAFF Phone .................. : [phone] Age ................................ : 30 Film# .................. .:[id number] Sex ................................. : M Unsigned transcriptions are preliminary reports and do not represent a medical or legal document RENAL LIMITED [id number] COMPLETE:01/13/21 12:37 BAW 5745 Reason(s): L renal pain s/p stent on Reva RENAL ULTRASOUND: INDICATION: Pain, history of stent placement, hematuria. COMPARISON: CT from 12/27/20. FINDINGS: Limited renal ultrasound performed. The left kidney measures 10.8 x 5.4 x 5.3 cm. No cortical thinning. No renal stones. No hydronephrosis. Color flow to the left kidney. No renal mass or cyst. Left ureter not visualized. IMPRESSION: No hydronephrosis. No renal stones. Left ureter not visualized. Electronically Reviewed and Signed By Clyde Palm MD , 01/14/21 15:27, [facility] Transcribe Initials: GAYATHRI , Transcribe Date: 01/13/21 17:04, Dictation Date: Copy for: NAKITA HINKLE via fax Copy for: [address] [place] [address] DISCHARGED Page 1 of 1 Name Value Range Interpretation Code Description Data Marifer rce(s) Supporting Document(s) ID Date Data Source [id number] 01/13/2021 10:28:00 AM EST [facility] 1 OrderSheet [facility] Emergency Department [address] [place] [address] Phone #: ext- [phone] 01/13/2021 10:28 Patient: MARVIN LEAHY Sex: M : 1990 Age: 30yWEIGHT:94.3 kg (S) HEIGHT:68 inches (S) BMI:31.6ALLERGIES: None, SeafoodCHIEF COMPLAINT: flank painDIAGNOSIS: Renal colicLAB ORDERSOrder Description Priority Entered Acknowledged InitialedUrinalysis (Clean STAT 10:37 01/13/2021 10:39 Keri Jimenes Lisa RN; Velma GARNER Per protocol; Corey Frey-CCBC w Diff STAT 11:16 01/13/2021 11:16 Corey Ashton- C;CMP STAT 11:16 01/13/2021 11:16 Corey Ashton.A.-C;Lipase STAT 11:16 01/13/2021 11:17 Ashton, Corey Shah P.A.-C;Lactic Acid STAT 11:16 01/13/2021 11:17 Ashton, Corey Shah P.A.-C;Culture, Urine STAT 11:16 01/13/2021 11:16 Ashton,(Urine, Clean Corey Spring) P.A.- C;DIAGNOSTIC STUDY ORDERSOrder Description Priority Entered Acknowledged InitialedUS RENAL LIMITED STAT 11:16 01/13/2021 12:11 Ashton,(Oxygen?(No)) Corey Shah(IV?(Yes)) P.A.-C; Reason for Study: L renal pain s/p stent on BLADDER 11:16 01/13/2021 12:11 Ashton,(Oxygen?(No)) Corey Shah(IV?(Yes)) P.A.-C; Reason for Study: Stent placed in L on Thursday and ahs pain 2 OrderSheet [facility] Emergency Department [address] [place] [address] Phone #: ext- [phone] 01/13/2021 10:28 Patient: MARVIN LEAHY Sex: M : 1990 Age: 30yAbdomen Multiview STAT 13:13 01/13/2021 14:18 Ashton,(Oxygen?(No)) Corey Shah P.A.-C; Reason for Study: Stent placementMEDICATION/IV/DRIP/FLUID ORDERSOrder Description Priority Entered Acknowledged InitialedZofran IVP 8 mg 11:16 01/13/2021 11:34 Ashton, Corey Shah P.A.-C;Tylenol 1 g PO X1 11:16 01/13/2021 11:34 Ashton,dose: 1000 mg Corey Shah(NOW x1) P.A.-C;Dilaudid IVP 1 mg 11:16 01/13/2021 11:35 Ashton,(HIGH ALERT Corey KellydaMEDICATION) P.A.-C;NS IV 500 mL 12:56 01/13/2021 12:57 Ashton,Bolus: : Bolus 500 Ashton, Alyssa ; WandamL (X1) Verbal order per; Corey CARUSOENERAL ORDERSOrder Description Priority Entered Acknowledged InitialedNPO 11:16 01/13/2021 11:17 Ashton, Corey Shah P.A.-C;Saline Lock 11:16 01/13/2021 11:16 Ashton, Corey Shah P.A.- C;[Electronically signed by Alyssa Ashton (16:05 01/13/2021)][Electronically signed by Corey MaceASvetlana (20:07 01/13/2021)][Electronically locked by Alyssa Ashton (16:05 01/13/2021)] Name Value Range Interpretation Code Description Data Marifer rce(s) Supporting Document(s) ID Date Data Source [id number] 01/13/2021 10:28:00 AM [facility] 1 Medication Reconciliation Report [facility] Emergency Department [address] [place] [address] Phone #: ext- [phone] 01/13/2021 10:28 Patient: MARVIN LEAHY Sex: M : 1990 Age: 30yWeight: 94.3 kgHeight/Length: 68 in.BMI: 31.6ALLERGIES: None, SeafoodThe patient's Home Medications are listed below:THE FOLLOWING MEDICATIONS NEED TO BE RECONCILED: Divalproex Sodium Oral (250 mg), 2x a day Eliquis Oral (5 mg), 2x a day Escitalopram Oxalate Oral (10 mg), 2x a day Ivermectin Oral (3 mg) 3 tabs, every 6 months Memetasone furoate 15mg , 4x a day Methocarbamol Oral (500 mg), 2x a day Pregnyl Intramuscular (14937 unit), 3x a week risperiDONE Oral (1 mg), 2x a day traZODone HCl Oral (50 mg), daily Trolamine Salicylate External Xolair Subcutaneous (150 mg) 300mg, 3x a week Zofran Oral 4 mg, 3x a day, prnThe source(s) of the original Home Medication information:Not obtained.The following Medications were given to the patient in the Emergency Department: 2 Medication Reconciliation Report [facility] Emergency Department [address] [place] [address] Phone #: ext- [phone] 01/13/2021 10:28 Patient: MARVIN LEAHY Sex: M : 1990 Age: 30yZofran [IVP] IVP 8 mg, administered: 11:24 01/13/2021Tylenol [PO] PO 1000 mg, administered: 11:29 01/13/2021ilaudid [IVP] IVP 1 mg, administered: 11:32 01/13/2021NS [IV] IV Fluids bolus 0, then 500 mL/hr, administered: 12:56 01/13/2021The following Medications were prescribed to the patient:hydrocodone 5 mg-acetaminophen 325 mg tablet Take 1 tablet three times a day for 3 days --Dispense 9 tablet. Refills: 0. Substitution permitted.Pharmacy - [facility] #78 - [address] [place], [place] [id number]. .Colace 100 mg capsule Take 1 capsule twice a day for 5 days -- Dispense 10 capsule. Refills: 0.Substitution permitted.Pharmacy - [facility] #55 - [address] [place], [place] [phone]. . -- Corey Mace P.A.-C Name Value Range Interpretation Code Description Data Marifer rce(s) Supporting Document(s) ID Date Data Source [id number] 01/13/2021 10:28:00 AM EST [facility] 1 Medication Administration Record [facility] Emergency Department [address] [place] [address] Phone #: ext- [phone] 01/13/2021 10:28 Patient: MARVIN LEAHY Sex: M : 1990 Age: 30yWeight: 94.3 kgHeight/Length: 68 inBMI: 31.6ALLERGIES: None, Seafood Date/Time Medication Administered Medication OrderedGiven ZOFRAN [IVP] (ONDANSETRON HCL) Zofran IVP 8 mg11:24 01/13/2021 Dose: 8 mg IVPPAlyssa haskins, Site: #1 left forearmGiven TYLENOL [PO] (APAP) Tylenol 1 g PO X1 dose: 1000 mg11:29 01/13/2021 Dose: 1000 mg Tablets PO (NOW x1)Ashton Alyssa,Given DILAUDID [IVP] (HYDROMORPHONE Dilaudid IVP 1 mg (HIGH ALERT11:32 01/13/2021 HCL) MEDICATION)Alyssa Ashton, Dose: 1 mg IVP Site: #1 left forearmStart NS [IV] NS IV 500 mL Bolus: : Bolus 62797:[id number] 01/13/2021 Dose: IV Fluids mL (X1)Ashton, Alyssa, Rate: 500 mL/hr over 1 hour(s)---- Site: #1 left hcujrmnMano11:08 1PAlyssa haskins, Name Value Range Interpretation Code Description Data Marifer rce(s) Supporting Document(s) ID Date Data Source [id number] 01/13/2021 10:28:00 AM EST [facility] 1 General Instructions [facility] Emergency Department [address] [place] [address] Phone #: ext- [phone] 01/13/2021 10:28 Patient: MARVIN LEAHY Sex: M : 1990 Age: 30yLeft renal colic.INSTRUCTIONSTake Tylenol (Acetaminophen) or Motrin (Ibuprofen) as needed for fever control. Take medicationaccording to label instructions. No strenuous activity for two weeks (No running, jumping, rucking. PT atown pace and distance.).Drink plenty of fluids. No dietary restrictions.Warnings: Further evaluation is necessary.SEDATIVE MEDICATION: You were given sedative medication during your visit. Do not drive or operatedangerous machinery.CONTROLLED SUBSTANCE WARN INGS.GENERAL WARNINGS: Return or contact your physician immediately if your condition worsens orchanges unexpectedly, if not improving as expected, or if other problems arise.Prescription monitor program consulted by me due to Finished rx; appears no open.Prescription Medications:hydrocodone 5 mg- acetaminophen 325 mg tablet Take 1 tablet three times a day for 3 days --Dispense 9 tablet. Refills: 0. Substitution permitted.[facility] [address] [place] [phone]. .Colace 100 mg capsule Take 1 capsule twice a day for 5 days -- Dispense 10 capsule. Refills: 0.Substitution permitted.[facility] [address] [phone]. .Follow-up:Return to the emergency department as needed. [facility]tom[facility] in about two days.Understanding of the discharge instructions verbalized by patient. ADDITIONAL INFORMATION 2 General Instruction s [facility] Emergency Department [address] [place] [address] Phone #: ext- [phone] 01/13/2021 10:28 Patient: MARVIN LEAHY Sex: M : 1990 Age: 30yFlank Pain with Uncertain CauseThe flank is the area between your upper belly (abdomen) and your back. Pain there is often causedby a problem with your kidneys. It might be a kidney infection or a kidney stone. Other causes of flankpain include spinal arthritis, a pinched nerve from a back injury, a rib injury, a bruise, a back musclestrain, inflammation, or spasm.The cause of your flank pain is not certain. You may need other tests.Home careFollow these tips when caring for yourself at home: You may use acetaminophen or ibuprofen to control pain, unless your healthcare provider prescribed another medicine. If you have chronic liver or kidney disease, talk with your provider before taking these medicines. Also talk with your provider first if you've ever had a stomach ulcer or digestive bleeding. If the pain is coming from your musc les, you may get relief with ice or heat. During the first 2 days after the injury, put an ice pack on the painful area for 20 minutes every 2 to 4 hours. This will reduce swelling and pain. A hot shower, hot bath, or heating pad works well for a muscle spasm. You can start with ice, then switch to heat after 2 days. You might find that alternating ice and heat works well. Use the method that feels the best to you.Follow-up careFollow up with your healthcare provider if your symptoms don't get better over the next few days.When to seek medical adviceCall your healthcare provider right away if any of these happen: Repeated vomiting Fever of 100.4F (38C) or higher, or as directed by your healthcare provider Flank pain that gets worse Pain that spreads to the front of your belly (abdomen) Dizziness, weakness, or fainting Blood in your urine Burning feeling when you urinate or the need to urinate often Pain in one of your legs that gets worse 3 General Instructions [facility] Emergency Department [address] [place] [address] Phone #: ext- [phone] 01/13/2021 10:28 Patient: MARVIN LEAHY Sex: Ileana : 1990 Age: 30y Numbness or weakness in a leg [phone] [employer] [place] [address]. All rights reserved. This information is not intended as asubstitute for professional medical care. Always follow your healthcare professional's instructions. You have been given the following additional information: Flank Pain, Uncertain Cause No strenuous activity for two weeks (No running, jumping, rucking. PT at own pace and distance.).(Electronically signed by Corey Mace P.A.-C 01/13/2021 20:07) Name Value Range Interpretation Code Description Data Marifer rce(s) Supporting Document(s) ID Date Data Source [id number] 01/13/2021 10:28:00 AM EST [facility] 1 Clinical Report - Nurses [facility] Emergency Department [address] [place] [address] Phone #: ext- [phone] 01/13/2021 10:28 Patient: MARVIN LEAHY Sex: M : 1990 Age: 30yTRIAGEArrived by private vehicle. Historian: patient. ( walked in).Acuity: LEVEL 3.Chief Complaint: PAIN WITH URINATION and URINARY RETENTION and HEMATURIA (Left stentplaced 01/11/21 @ [facility] by Dr. Willett).Alert. No acute distress.( Pain with urination.). ( C/O nausea when voiding. pain is stabbing and sharp radiates to L side).Treatment PROGRAM SUPPORT SPECIALIST:None.SEPSIS SCREEN: SIRS SCREEN NEGATIVE. SEPSIS SCREEN NEGATIVE. No suspected or confirmedsigns of infection present. --10:56 01/13/21 AshtonAlyssa heredia10:50 01/13/21. BP: 128/81. HR: 71. RR: 22. O2 saturation: 100%. Temp: 98.3 F. Pain level now 08/18.--10:56 01/13/21 Alyssa Ashton.Weight: 94.3 kg stated. Height/Length: 68 inches Per Patient. BMI: 31.6. --10:54 01/13/21 Alyssa Ashton.MedicationsDivalproex Sodium Oral (Tablet Delayed Release 250 mg), 2x a day. Eliquis Oral (Tablet 5 mg), 2x a day. Escitalopram Oxalate Oral (Tablet 10 mg), 2x a day. Ivermectin Oral (Tablet 3 mg) 3 tabs, every 6 months. Memetasone furoate 15mg , 4x a day. Methocarbamol Oral (Tablet 500 mg), 2x a day. Pregnyl Intramuscular (Solution Reconstituted 37063 unit), 3x a week. risperiDONE Oral (Tablet Disintegrating 1 mg), 2x a day. traZODone HCl Oral (Tablet 50 mg), daily. Trolamine Salicylate External. Xolair Subcutaneous (Solution Reconstituted 150 mg) 300mg, 3x a week. Zofran Oral 4 mg, 3x a day as needed. --11:00 01/13/21 Alyssa Ashton.AllergiesNone.Seafood. --11:00 01/13/21 AshtonAlyssa heredia.PROBLEMS: 2 Clinical Report - Nurses [facility] Emergency Department [address] [place] [address] Phone #: ext- [phone] 01/13/2021 10:28 Patient: MARVIN LEAHY Sex: M : 1990 Age: 30yHematuria.Hypertension.Lumbar Strain.Chronic Back Pain.DVT - Deep Venous Thrombosis.Flank Pain.Syncope.Ureterolithiasis.Urinary Calculi.Nephrolithiasis.Renal Colic.Skin Problems. --11:00 01/13/21 Alyssa Ashton.HistoryPAST MEDICAL HX: Immunizations: up-to-date.SURGERY HX: Left ureteral stent placement. Procedure performed once (01/11/21 hours).SOCIAL HX: Never smoker. No alcohol use or [...] no deficiencies.FUNCTIONAL ASSESSMENT: Functional assessment: no impairments noted.LEARNING NEEDS ASSESSMENT: The learning needs assessment revealed no barriers.FALL RISK ASSESSMENT: Fall risk assessment completed. No risk factors identified.SKIN INTEGRITY ASSESSMENT: Skin integrity risk assessment completed. No skin integrity riskidentified. --10:56 01/13/21 Alyssa Ashton.InterventionsIdentification and allergy band on patient. To treatment room. --10:56 01/13/21 Alyssa Ashton. 3 Clinical Report - Nurses [facility] Emergency Department [address] [place] [address] Phone #: ext- [phone] 01/13/2021 10:28 Patient: MARVIN LEAHY Sex: M : 1990 Age: 30yPHYSICAL ASSESSMENTGENERAL / NEURO / PSYCH: Alert. Oriented X 4. Appears in no acute distress.HEENT: Mucous membranes are pink.RESPIRATORY: Respirations not labored. Breath sounds within normal limits.CVS: Normal heart rate and rhythm. Cardiac rhythm: normal sinus rhythm; (71). Capillary refill less than2 seconds.GI / : Emesis noted. Has vomited twice (2 x today). The patient has had mild and painful hematuria (3days). Normal genitalia. CVA tenderness on the left.SKIN: Skin is warm and dry. --11:37 01/13/21 Alyssa Ashton.NURSING PROGRESS NOTESMonitoring of patient in place. Patient gowned. Head of bed elevated. Reassurance given. Twopatient identifiers checked. Call light placed in reach. Side rails up x 2. Bed placed in lowest position.Brakes of bed on. Brakes of chair on. Patient ready for evaluation- PA notified. --10:57 01/13/21 Alyssa Ashton 11:09 01/13/2021 Site #1 started via IV in the left forearm with an 20g angiocath; two attempts. Blood drawn: rainbow set. Saline lock flushed with 10 mL saline. --11:34 01/13/21 Alyssa Ashton 11:24 01/13/2021 Zofran (Ondansetron HCl) IVP 8 mg given over 3 minute(s) via site #1. Allergies verified and confirmed 5 rights. IV patency established. IV site checked: no pain, redness, or swelling. IV flushed thoroughly pre- and post-medication administration. IVP given by RN. Information reviewed with patient including reason for taking this medication, signs of allergic reaction and precautions. Verbalizes understanding. --11:34 01/13/21 Alyssa Ashton 11:29 01/13/2021 Tylenol (APAP) PO Tablets 1000 mg given. Allergies verified and confirmed 5 rights. Information reviewed with patient including reason for taking this medication, signs of allergic reaction and precautions. Verbalizes understanding. --11:34 01/13/21 Alyssa Ashton 11:32 01/13/2021 Dilaudid (HYDROmorphone HCl) IVP 1 mg given over 3 minute(s) via site #1. Allergies verified and confirmed 5 rights. IV patency established. IV site checked: no pain, redness, or swelling. IV flushed thoroughly pre- and post-medication administration. IVP given by RN. Information reviewed with patient including reason for taking this medication, signs of allergic reaction, precautions and sedative warning. Verbalizes understanding. --11:35 01/13/21 Alyssa Ashton 11:41 01/13/21. BP: 131/73. MAP: 92. HR: 76. RR: 16. O2 saturation: 100%. --11:41 01/13/21 [facility], [facility] Bedside pelvic sonogram performed by finishing technician (bedside ultrasound renal kidney). Rounding: Pain: assessed pain level (6 out of 10). Personal care / toileting: denies toileting needs. Proximity of possessions / care items: call light within easy reach. Plug ins: assured IV pump plugged in; checked status of equipment in use; located all cords, tubes, and lines to prevent fall hazard. --12:13 4 Clinical Report - Nurses [facility] Emergency Department [address] [place] [address] Phone #: ext- [phone] 01/13/2021 10:28 -- Patient: MARVIN LEAHY Sex: M : 1990 Age: 30y 01/13/21 Alyssa Ashton 12:40 01/13/21. BP: 121/79. MAP: 93. HR: 70. RR: 16. O2 saturation: 100%. --12:41 01/13/21 [facility] [place] [facility], [place], ER Tech1 12:56 01/13/2021 Started IV Fluids NS; at 500 mL/hr over 1 hour(s) via site #1 via IV pump. Allergies verified and confirmed 5 rights. IV patency established. IV site checked: no pain, redness, or swelling. IV flushed thoroughly pre- and post- medication administration. Information reviewed with patient. --12:57 01/13/21 AshtonAlyssa heredia 13:53 01/13/21. BP: 122/76. MAP: 91. HR: 69. RR: 16. O2 saturation: 100%. --13:53 01/13/21 [facility] [place] [facility], [place], ER Tech1 Patient transported to radiology by wheelchair with IV, mask and medical imaging technologist. --14:01 01/13/21 Alyssa Ashton 14:08 01/13/2021 IV Fluids NS via IV site #1 Discontinued: bag #2 completed. Total amount infused: 500 mL. IV patency established. IV site checked: no pain, redness, or swelling. IV flushed thoroughly. --14:18 01/13/21 Alyssa Ashton Reassurance given. Rounding: Pain: (4). Position: states comfortable. Personal care / toileting: denies toileting needs. Proximity of possessions / care items: call light within easy reach. Plug ins: assured IV pump plugged in; checked status of equipment in use; located all cords, tubes, and lines to prevent fall hazard. Two patient identifiers checked. Call light placed in reach. Side rails up. Bed placed in lowest position. Brakes of bed on. Brakes of chair on. --14:33 01/13/21 Ashton, Alyssa 14:52 01/13/21. BP: 134/99. MAP: 110. HR: 64. RR: 16. O2 saturation: 100%. Temp: 98.1 F. --14:52 01/13/21 [facility] [place] [facility], [facility]1 Reassurance given. The patient is resting quietly. Overall patient status- he states feels better. ( pt on phone with family.). --15:37 01/13/21 Sahton, Alyssa. Intake Output Urine output: 350 mL measured, with return of bloody clear urine. Urine: normal smelling. --11:43 01/13/21 Ashton, Alyssa Urine output: 300 mL voided with return of bloody urine. --14:52 01/13/21 [facility] [place] [facility], [facility]1.DISPOSITION / DISCHARGE 15:51 01/13/21. BP: 126/84. MAP: 98. HR: 68. RR: 16. O2 saturation: 99%. Temp: 98.1 F. Pain level now: 02/16. --15:52 01/13/21 Velma Jimenes, RN 5 Clinical Report - Nurses [facility] Emergency Department [address] [place] [address] Phone #: ext- [phone] 01/13/2021 10:28 Patient: MARVIN LEAHY Sex: M : 1990 Age: 30y 16:00 01/13/2021 Site #1 removed upon discharge. Catheter intact. Manual pressure and bandaid applied. --16:03 01/13/21 Ashton, Alyssa Condition at departure: stable. No learning barriers present. Discharge instructions provided and reviewed with the patient. Reviewed medication(s). Prescription(s) sent electronically to pharmacy. Patient verbalized understanding. Written instructions provided in [place]. The patient was discharged by the physician assistant professor of forestry. He was discharged home. He left ambulatory and via private vehicle. Patient driving. --16:04 01/13/21 Alyssa Ashton 16:02 01/13/21. BP: 126/84. HR: 68. RR: 16. O2 saturation: 99%. Temp: 98.1 F. Pain level now 12/19. --16:04 01/13/21 Alyssa Ashton Departure time: 16:04 01/13/2021. --16:04 01/13/21 Alyssa Ashton.Locked/Released at 01/13/2021 16:05 by Alyssa Ashton Name Value Range Interpretation Code Description Data Marifer rce(s) Supporting Document(s) ID Date Data Source [id number] 01/13/2021 10:28:00 AM [facility] 1 Clinical Report - Physicians/Mid Levels [facility] Emergency Department [address] [place] [address] Phone #: ext- [phone] 01/13/2021 10:28 Patient: MARVIN LEAHY Sex: M : 1990 Age: 30y Time Seen: 10:41 01/13/2021; initial patient contact, initial documentation. Arrived- By private vehicle. Historian- patient. Disposition decision: 15:47 01/13/2021.HISTORY OF PRESENT ILLNESS Chief Complaint: FLANK PAIN. This started today and is still present. It is described as located in the left flank. At its maximum, severity described as severe. When seen in the E.D., severity described as severe. Modifying factors. Not worsened by anything. Not relieved by anything. The patient has had nausea. No loss of appetite, vomiting or diarrhea. (Pt has been seen in this ER for smae complaints. Pt was seen by urology and had a stent placed on Thursday. Pt sts that he woke Thursday with pain and had cotinued and progressively gotten worse thus came to the ER. Has been experiencing blood in urine.). Similar symptoms previously. Recent medical care: The patient was seen recently at another facility in a clinic.REVIEW OF SYSTEMSNo constipation, black stools, hematemesis, bloody stools or fever. No headache, sore throat, blurredvision, chest pain or difficulty breathing. No cough, joint pain, skin rash, chills or back pain. The patienthas had difficulty with urination, and pain on urination but not had weight loss. The patient has had urinaryfrequency. All other systems reviewed and are negative.PAST HISTORYSee nurses notes. Problems: Hematuria. Hypertension. Lumbar Strain. Chronic Back Pain. DVT - Deep Venous Thrombosis. Flank Pain. Syncope. Ureterolithiasis. Urinary Calculi. Nephrolithiasis. Renal Colic. Skin Problems. Additional Surgeries: 2 Clinical Report - Physicians/[facility] Emergency Department [address] [place] [address] Phone #: ext- [phone] 01/13/2021 10:28 Patient: MARVIN LEAHY Sex: M : 1990 Age: 30y None. Ureteral Stent. Medications: Divalproex Sodium Oral (Tablet Delayed Release 250 mg), 2x a day. Eliquis Oral (Tablet 5 mg), 2x a day. Escitalopram Oxalate Oral (Tablet 10 mg), 2x a day. Ivermectin Oral (Tablet 3 mg) 3 tabs, every 6 months. Memetasone furoate 15mg , 4x a day. Methocarbamol Oral (Tablet 500 mg), 2x a day. Pregnyl Intramuscular (Solution Reconstituted 81966 unit), 3x a week. risperiDONE Oral (Tablet Disintegrating 1 mg), 2x a day. traZODone HCl Oral (Tablet 50 mg), daily. Trolamine Salicylate External. Xolair Subcutan eous (Solution Reconstituted 150 mg) 300mg, 3x a week. Zofran Oral 4 mg, 3x a day as needed. Allergies: None. Seafood.SOCIAL HISTORYNever smoker. No alcohol use or drug use.ADDITIONAL NOTESThe nursing notes have been reviewed.PHYSICAL EXAMVital Signs: 01/13/2021 10:50 BP: 128/81. MAP: 96. HR: 71. RR: 22. O2 saturation: 100%. Temp: 98.3 F.Have been reviewed. Oxygen saturation normal.Appearance: Alert. Oriented X3. Appears to be in pain. He appears uncomfortable.ENT: Voice normal.CVS: Normal heart rate and rhythm. No JVD present. Pulses normal. Capillary refill normal. Strongperipheral pulses. Heart sounds normal. Pulses: right radial 2+; left radial 2+; right dorsalis pedis 2+; leftdorsalis pedis 2+; right posterior tibial 2+; left posterior tibial 2+.Respiratory: Chest normal on inspection. No respiratory distress. Unlabored respirations. Lungs clear.Good chest movement. Breath sounds normal and equal.Abdomen: Normal inspection. Soft and nontender. Bowel sounds normal.Skin: Skin warm and dry.Extremities: Extremities exhibit normal ROM. No lower extremity edema. No calf tenderness. No lowerextremity edema.Neuro: Awake. Alert. Mood/affect normal. Speech normal. No motor deficit. No sensory defici t.Psych: Cognition normal. Thought process and content normal. Insight and judgement normal.LABS, X-RAYS, AND EKG 3 Clinical Report - Physicians/Mid Levels [facility] Emergency Department [address] [place] [address] Phone #: ext- [phone] 01/13/2021 10:28 ------ Patient: MARVIN LEAHY Sex: M : 1990 Age: 30yKUB: (Abram goetz Neal - 01/13/2021 2:22:14 PMLeft-sided double-J stent and approximately satisfactory position. Exact positioning unable to be preciselylocated on plain film). The X-rays were interpreted by the radiologist.Note - Special Studies: BLADDER USbewy, Ewy, Clyde - 01/13/2021 1:04:06 PMUnremarkable limited bladder ultrasound. No bladder wall thickening. Catheter is in place within thebladder. Ureteral jets not visualized.RENAL USArpita horner Brian - 01/13/2021 1:01:40 PMNo hydronephrosis. No renal stones. Left ureter not visualized.Laboratory Tests:Abdomen Multiview: (DERRICK: 01/13/2021 13:13) ( MsgRcvd 01/13/2021 19:20) In Progress Exam ABDOMEN MULTIPLE VIEW [facility] [address] [place] [address] PHONE: [phone] FAX: [phone] Name .................. : TOSIN Rivera Acct Number.................. : [id number] ROOM. ................. : [facility] MR Number ................... : [id number] Stay type ............. : E/R Discharge Date......... ... : 01/13/21 Admit Date ......... : 01/13/21 Admit Phys .................... : [facility] Date of ....... : 1990 Family Phys ................... : NON STAFF Phone .................. : [phone] Age ................................ : 30 Film# .................. .:[id number] Sex ................................. : M Unsigned transcriptions are preliminary reports and do not represent a medical or legal document ABDOMEN MULTIPLE VIEW [id number] COMPLETE:01/13/21 13:13 [id number] Reason(s): Stent placement MULTIPLE VIEW ABDOMEN WITH PA CHEST: INDICATION: Stent placement. FINDINGS: The lungs are clear. The cardiac silhouette is normal in size and contour. No acute osseous abnormality. There is a nonobstructive bowel gas pattern with a moderate amount of stool. No acute osseous abnormality is noted. There is a left-sided double J stent in approximately satisfactory position. IMPRESSION: Left-sided double J stent in approximately satisfactory position. Exact positioning unable to be precisely located on plain film. Electronically Reviewed and Signed By DCTNAME , SIGNDATE, [place] Transcribe Initials: GAYATHRI , Transcribe Date: 01/13/21 17:37, Dictation Date: 4 Clinical Report - Physicians/Mid Levels [facility] Emergency Department [address] [place] [address] Phone #: ext- [phone] 01/13/2021 10:28 Patient: MARVIN LEAHY Sex: M : 1990 Age: 30y <<REPDIST>> Page 1of 1CBC w Diff: (DERRICK: 01/13/2021 11:09) ( MsgRcvd 01/13/2021 12:15) Final results Test Result Flag Units (Reference) CBC W/AUTOMATED DIFF COMPLETE BLOOD COUNT WBC 5.9 10/uL (4.2 - 11.0) RBC 4.84 10/uL (4.50 - 6.30) HEMOGLOBIN 14.4 g/dL (14.0 - 16.0) HEMATOCRIT 42.9 % (41.0 - 51.0) MCV 88.6 fL (80.0 - 94.0) MCH 29.8 pg (27.0 - 34.0) MCHC 33.6 g/dL (31.0 - 36.0) RDW 12.3 % (11.5 - 14.8) PLATELETS 214 10/uL (150 - 450) MPV 10.8 H fL (7.4 - 10.4) NEUT 68.8 % (37.0 - 80.0) LYMPH 22.4 L % (25.0 - 40.0) MONO 6.8 % (3.0 - 8.0) EOS 1.2 % (0.0 - 7.0) BASO 0.5 % (0.0 - 2.0) %IG 0.3 H % (0.0 - 0.0) %NRBC 0.0 % (0.0 - 0.0) #NEUT 4.06 10/uL (2.00 - 6.90) #LYMPH 1.32 10/uL (0.60 - 3.40) #MONO 0.40 10/uL (0.00 - 0.90) #EOS 0.07 10/uL (0.00 - 0.70) #BASO 0.03 10/uL (0.00 - 0.20) #IG 0.02 10/uL (0.00 - 0.10) #NRBC 0.00 10/uL (0.00 - 0.00) MANUAL DIFF NOT INDICATED RBC MORPH NOT INDICATEDCMP: (DERRICK: 01/13/2021 11:09) ( MsgRcvd 01/13/2021 12:15) Final results Test Result Flag Units (Reference) COMPREHENSIVE METABOLIC PANEL COMPREHENSIVE METABOLIC PANEL SODIUM 139 mEq/L (134 - 153) POTASSIUM 3.6 mEq/L (3.6 - 5.0) CHLORIDE 102 mEq/L (98 - 107) CO2 30 MEQ/L (22 - 30) GLUCOSE 124 H MG/DL (70 - 99) BUN 9 MG/DL (7 - 21) CREATININE 0.9 MG/DL (0.7 - 1.5) BUN/CREAT 10 (8 - 27) TOTAL PROTEIN 7.3 G/DL (6.3 - 8.2) ALBUMIN 4.4 G/DL (3.9 - 5.0) GLOBULIN 2.9 GM/DL (2.4 - 3.2) A/G RATIO 1.5 (0.8 - 2.0) CALCIUM 9.9 MG/DL (8.4 - 10.2) 5 Clinical Report - Physicians/Mid Levels [facility] Emergency Department [address] [place] [address] Phone #: ext- [phone] 01/13/2021 10:28 Patient: MARVIN LEAHY Sex: M : 1990 Age: 30y TOTAL BILI <0.7 MG/DL (0.2 - 1.3) ALKALINE PHOS 62 U/L (38 - 126) SGOT/AST 44 H U/L (5 - 40) SGPT/ALT 42 U/L (7 - 56) ANION GAP 7.0 L mmol/L (8.0 - 16.0) AGE 30 yrs NON-AA GFR >60 mL/min AFR AMER GFR >60 mL/min Male GFR Interprentation 20-49 yrs >60 mL/min Ropmsf01-07 yrs >56 mL/min Normal 60-69 yrs >49 mL/min Normal 70-79yrs>42 mL/min Normal 80 and above >35 mL/min Normal Female GFRInterpretation 20-39 yrs >60 mL/min Normal 40-49 yrs >58 mL/minNormal 50- 59 yrs >51 mL/min Normal 60-69 yrs >45 mL/min Asyxae68-77 yrs >39 mL/min Normal 80 and above >32 mL/min NormalLipase: (DERRICK: 01/13/2021 11:09) ( MsgRcvd 01/13/2021 12:04) Final results Test Result Flag Units (Reference) LIPASE 37 U/L (13 - 60)Lactic Acid: (DERRICK: 01/13/2021 11:09) ( MsgRcvd 01/13/2021 12:14) Final results Test Result Flag Units (Reference) LACTIC ACID 1.6 MMOL/L (0.2 - 2.2) RENAL LIMITED: (DERRICK: 01/13/2021 11:16) ( MsgRcvd 01/13/2021 17:06) In ProgressUS RENAL LIMITEDReason(s): L renal pain s/p stent on ThudaTRANSPORTATION: WC IV? IV?(Yes) O2? Oxygen?(No) Ro Test Result Flag Units (Reference) RENAL LIMITED [facility] [address] [place] [address] PHONE: [phone] FAX: [phone] -- Name .................. : TOSIN Rivera Acct Number.................. : [id number] ROOM. ................. : TR-1A MR Number ................... : [id number] Stay type ............. : E/R Discharge Date......... ... : 01/13/21 Admit Date ......... : 01/13/21 Admit Phys .................... : [facility] Date of ....... : 1990 Family Phys ................... : NON STAFF Phone .................. : [phone] Age ................................ : 30 Film# .................. .:[id number] Sex ................................. : M -- Unsigned transcriptions are preliminary reports and do not represent a medical or legal document US RENAL LIMITED 11078 COMPLETE:01/13/21 12:37 BAW 5745 Reason(s): L renal pain s/p stent on -- -- -- -- RENAL ULTRASOUND: -- INDICATION: Pain, history of stent placement, hematuria. -- COMPARISON: CT from 12/27/20. -- -- FINDINGS: Limited renal ultrasound performed. 6 Clinical Report - Physicians/Mid Levels [facility] Emergency Department [address] [place] [address] Phone #: ext- [phone] 01/13/2021 10:28 Patient: MARVIN LEAHY Sex: M : 1990 Age: 30y -- The left kidney measures 10.8 x 5.4 x 5.3 cm. No cortical thinning. No renal stones. No hydronephrosis. Color flow to the left kidney. No renal mass or cyst. Left ureter not visualized. -- -- IMPRESSION: No hydronephrosis. No renal stones. Left ureter not visualized. -- -- Electronically Reviewed and Signed By CATERINA SIGNRIO SADLER -- Transcribe Initials: GAYATHRI , Transcribe Date: 01/13/21 17:04, Dictation Date: -- -- <<REPDIST>> -- -- -- -- Page 1of 1 --US BLADDER: (DERRICK: 01/13/2021 11:16) ( MsgRcvd 01/13/2021 17:11) In ProgressUS BLADDERReason(s): Stent placed in L on Thursday and ahs painTRANSPORTATION: WC IV? IV?(Yes) O2? Oxygen?(No) Ro Test Result Flag Units (Reference) BLADDER [facility] [address] [place] [address] PHONE: [phone] FAX: [phone] -- Name .................. : TOSIN Rivera Acct Number.................. : [id number] ROOM. ................. : [facility] MR Number ................... : [id number] Stay type ............. : E/R Discharge Date......... ... : 01/13/21 Admit Date ......... : 01/13/21 [facility] ................[facility] Date of ....... : 1990 Family Phys ................... : NON STAFF Phone .................. : [phone] Age ................................ : 30 Film# .................. .:[id number] Sex ................................. : M -- Unsigned transcriptions are preliminary reports and do not represent a medical or legal document BLADDER [id number] COMPLETE:01/13/21 12:37 BAW 5746 Reason(s): Stent placed in L on Thursday and ahs pain -- -- -- -- BLADDER ULTRASOUND: -- INDICATION: Pain, hematuria, stent placed on Thursday. -- -- FINDINGS: Bladder ultrasound performed. -- The bladder measures 7.5 x 6.5 x 6.1 cm. There is a catheter identified within the bladder. No filling defects. Ureteral jets not visualized. -- -- IMPRESSION: 7 Clinical Report - Physicians/Mid Levels [facility] Emergency Department [address] [place] [address] Phone #: ext- [phone] 01/13/2021 10:28 Patient: MARVIN LEAHY Sex: M : 1990 Age: 30y Unremarkable limited bladder ultrasound. No bladder wall thickening. Stent in place. Catheter in place within the bladder. Ureteral jets not visualized. -- -- Electronically Reviewed and Signed By DCTNAME SIGNDATEROI -- Transcribe Initials: GAYATHRI , Transcribe Date: 01/13/21 17:09, Dictation Date: -- -- <<REPDIST>> -- -- -- -- Page 1 of 1 -- Urinalysis: (DERRICK: 01/13/2021 10:45) ( MsgRcvd 01/13/2021 11:10) Final results Test Result Flag Units (Reference) URINALYSIS URINALYSIS SOURCE R COLOR red (NORMAL: Yello CLARITY hazy (NORMAL: Clear SPEC GRAVITY 1.015 (1.001 - 1.030 pH 8 (5 - 9) GLUCOSE NORM (NORMAL: Negat BILIRUBIN NEG (NORMAL: Negat KETONE NEG (NORMAL: Negat PROTEIN 30 (NORMAL: Negat NITRITE NEG (NORMAL: Negat BLOOD 250 A (NORMAL: Negat LEUK EST 25 (NORMAL: Negat UROBILINOGEN NOR (less than 1.0 MICROSCOPIC See Below WBC 1 - 3 (NORMAL: NONE RBC TNTC A (NORMAL: NONE EPITHELIAL FEW (NORMAL: NONE BACTERIA Trace (NORMAL: NONE.PROGRESS AND PROCEDURESCourse of Care: VSS, NAD, AOx3, interacting well and appropriately, no use of accessory muscle, able tospeak full sentences, stable, non-toxic looking, but pt appears uncomfortable and in pain. Patient stable.Denies any new issues, concerns, or complaints. Pt had a stent placed on Thursday during surgyer. Reviewed OR report and appears there was noted pathlogy of the L renal aera. Sts taht proximal ureter all the way up the ureteropelvic junction showed a significiant amoutn of restriction. A guidewire was needed for stent placement. This would explain the hematuria and possible pain as associated with spasm due to constriction and placement. 8 Clinical Report - Physicians/Mid Levels [facility] Emergency Department [address] [place] [address] Phone #: ext- [phone] 01/13/2021 10:28 Patient: MARVIN LEAHY Sex: M : 1990 Age: 30y PE demos NV intact b/l UE and LE. Pt experiencing L flank pain. Will order labs and imaging for furhter eval. Pending resutls. Enter room and patient lying peacefully in bed in NAD. Patient stable. Denies any new issues, concerns, or complaints. Pt sts that he feels much better and has no complaints. Cotnacted URology and disucssed with Christina. Pt had been previously told no to ibuprofen due to Eliquis uise. Agrees with labs and imaigng. Due to pt feelign better, recommends discharge. Reviewed results. Discussed with attending. Agrees wiht discharge. Enter room and patient lying peacefully in bed in NAD. Patient stable. Denies any new issues, concerns, or complaints. Discussed results with pt. Discussed tx plan with pt. Discussed and counseled on stable condition. Discussed importance of a f/u with PCP. Discussed return to ER criteria. Answered their questions. Indicates and verbalizes that they understand, agree, and will comply with above. Denies any new questions or concerns. Patient has capacity to understand. Discharge decision based on the following: patient's condition is stable; patient's exam is stable; social support is adequate; transportation is available; follow-up is available. Discussed of OTC Motrin and Tylenol to control inflammation and pain management. Informed to follow directions on bottle that are appropriate for age and/or weight. Discussed case with health care provider (Merritt). Disposition orders written. Disposition: Discharged home in good and improved condition. Condition: good and stable.CLINICAL IMPRESSION Left renal colic.INSTRUCTIONS Take Tylenol (Acetaminophen) or Motrin (Ibuprofen) as needed for fever control. Take medication according to label instructions. No strenuous activity for two weeks (No running, jumping, rucking. PT at own pace and distance.). Drink plenty of fluids. No dietary restrictions. 9 Clinical Report - Physicians/Mid Levels [facility] Emergency Department [address] [place] [address] Phone #: ext- [phone] 01/13/2021 10:28 Patient: MARVIN LEAHY Sex: M : 1990 Age: 30y Warnings: Further evaluation is necessary. SEDATIVE MEDICATION: You were given sedative medication during your visit. Do not drive or operate dangerous machinery. CONTROLLED SUBSTANCE WARNINGS. GENERAL WARNINGS: Return or contact your physician immediately if your condition worsens or changes unexpectedly, if not improving as expected, or if other problems arise. Prescription monitor program consulted by me due to Finished rx; appears no open. Prescription Medications: hydrocodone 5 mg-acetaminophen 325 mg tablet Take 1 tablet three times a day for 3 days -- Dispense 9 tablet. Refills: 0. Substitution permitted. [facility] [id number] [facility] ; [place], [place] [id number]. . Colace 100 mg capsule Take 1 capsule twice a day for 5 days -- Dispense 10 capsule. Refills: 0. Substitution permitted. [facility] [id number] [facility] ; [place], [place] [id number]. . Follow-up: Return to the emergency department as needed. Follow up with your healthcare provider At [facility] all tomorrow in about two days. Understanding of the discharge instructions verbalized by patient.(Electronically signed by Corey Mace P.A.-C 01/13/2021 20:07) Name Value Range Interpretation Code Description Data Marifer rce(s) Supporting Document(s) ID Date Data Source [id number] 01/13/2021 12:15:00 PM EST [facility] Name Value Range Interpretation Code Description Data Marifer rce(s) Supporting Document(s) CBC W/AUTOMATED DIFF [facility] COMPLETE BLOOD COUNT Leukocytes [#/volume] in Blood by Automated count 5.9 10^3/uL 4.2 - 1 1.0 [facility] Erythrocytes [#/volume] in Blood by Automated count 4.84 10^6/uL 4. 50 - 6.30 [facility] Hemoglobin [Mass/volume] in Blood 14.4 g/dL 14.0 - 16.0 [facility] Hematocrit [Volume Fraction] of Blood by Automated count 42.9 % 4 1.0 - 51.0 [facility] Erythrocyte mean corpuscular volume [Entitic volume] by Auto mated count 88.6 fL 80.0 - 94.0 [facility] Erythrocyte mean corpuscular hemoglobin [Entitic mass] by Automated count 29.8 pg 27.0 - 34.0 [facility] Erythrocyte mean corpuscular hemoglobin concentration [Mass/volume] by Automated count 33.6 g/dL 31.0 - 36.0 [facility] Erythrocyte distribution width [Ratio] by Automated count 12.3 % 11.5 - 14.8 [facility] Platelets [#/volume] in Blood by Automated count 214 10^3/uL 150 - 45 0 [facility] Platelet mean volume [Entitic volume] in Blood by Automated count 10.8 fL 7.4 - 10.4 H [facility] Neutrophils/100 leukocytes in Blood by Automated count 68.8 % 37. 0 - 80.0 [facility] Lymphocytes/100 leukocytes in Blood by Manual count 22.4 % 25.0 - 40.0 L [facility] Monocytes/100 leukocytes in Blood by Automated count 6.8 % 3.0 - 8.0 [facility] Eosinophils/100 leukocytes in Blood by Automated count 1.2 % 0.0 - 7.0 [facility] Basophils/100 leukocytes in Blood by Automated count 0.5 % 0.0 - 2.0 [facility] %IG 0.3 % 0.0 - 0.0 [facility] %NRBC 0.0 % 0.0 - 0.0 [facility] al Neutrophils [#/volume] in Blood by Automated count 4.06 10^3/uL 2.00 - 6.90 [facility] Lymphocytes [#/volume] in Blood by Automated count 1.32 10^3/uL 0.60 - 3.40 [facility] Monocytes [#/volume] in Blood by Automated count 0.40 10^3/uL 0.00 - 0.90 [facility] Eosinophils [#/volume] in Blood by Automated count 0.07 10^3/uL 0.00 - 0.70 [facility] Basophils [#/volume] in Blood by Automated count 0.03 10^3/uL 0.00 - 0.20 [facility] #IG 0.02 10^3/uL 0.00 - 0.10 [facility] ospital #NRBC 0.00 10^3/uL 0.00 - 0.00 [facility]ital MANUAL DIFF NOT INDICATED [facility] RBC MORPH NOT INDICATED [facility] Ho spital ID Date Data Source [id number] 01/13/2021 12:15:00 PM EST [facility] Name Value Range Interpretation Code Description Data Marifer rce(s) Supporting Document(s) COMPREHENSIVE METABOLIC PANEL [facility] COMPREHENSIVE METABOLIC PANEL Sodium [Moles/volume] in Serum or Plasma 139 mEq/L 134 - 153 [facility] Potassium [Moles/volume] in Serum or Plasma 3.6 mEq/L 3.6 - 5.0 [facility] Chloride [Moles/volume] in Serum or Plasma 102 mEq/L 98 - 107 [facility] Carbon dioxide, total [Moles/volume] in Serum or Plasma 30 MEQ/L 22 - 30 [facility] Glucose [Mass/volume] in Serum or Plasma 124 MG/DL 70 - 99 H [facility] BUN 9 MG/DL 7 - 21 [facility] al Creatinine [Mass/volume] in Serum or Plasma 0.9 MG/DL 0.7 - 1.5 [facility] BUN/CREAT 10 8 - 27 [facility] al Protein [Mass/volume] in Serum or Plasma 7.3 G/DL 6.3 - 8.2 [facility] Albumin [Mass/volume] in Serum or Plasma 4.4 G/DL 3.9 - 5.0 [facility] Globulin [Mass/volume] in Serum by calculation 2.9 GM/DL 2.4 - 3.2 [facility] A/G RATIO 1.5 0.8 - 2.0 [facility] Calcium [Mass/volume] in Serum or Plasma 9.9 MG/DL 8.4 - 10.2 [facility] Bilirubin.total [Mass/volume] in Serum or Plasma <0.7 MG/DL 0.2 - 1.3 [facility] Alkaline phosphatase [Enzymatic activity/volume] in Serum or Plasma 62 U/L 38 - 126 [facility] Aspartate aminotransferase [Enzymatic activity/volume] in Serum or Plasma 44 U/L 5 - 40 H [facility] Alanine aminotransferase [Enzymatic activity/volume] in Seru m or Plasma 42 U/L 7 - 56 [facility] Anion gap 3 in Serum or Plasma 7.0 mmol/L 8.0 - 16.0 L [facility] 30 [facility] >60 mL/min [facility] ital AFR AMER GFR >60 mL/min [facility] spital Male GFR In [...] >32 mL/min Normal ID Date Data Source [id number] 01/13/2021 12:14:00 PM [facility] Value Range Interpretation Code Description Data Marifer rce(s) Supporting Document(s) Lactate [Moles/volume] in Serum or Plasma 1.6 MMOL/L 0.2 - 2.2 [facility] ID Date Data Source [id number] 01/13/2021 12:04:00 PM [facility] Value Range Interpretation Code Description Data Marifer rce(s) Supporting Document(s) Lipase [Enzymatic activity/volume] in Serum or Plasma 37 U/L 13 - 60 [facility] ID Date Data Source [id number] 01/18/2021 04:34:00 PM [facility] Value Range Interpretation Code Description Data Marifer rce(s) Supporting Document(s) CULTURE URINE [facility] spital _CULTURE URINE_$$[id number]$$[id number]$$[id number]$$331047$$299557$$132863$$962567$$979028$$584422$$ 449921$$108299$$024784$$550134$$671269$$497855$$580124$$609433$$561598$$131449$$ 416555$$064413$$831513$$146489$$228729$$433625$$691072$$[id number] -- Continued on next page --Patient: TOSIN WONG Cristino Order: [id number] Page 2Culture: CULTURE URINE Status: Final ==== -- Continued on next page --Patient: TOSIN WONG N Order: [id number] Page 2Culture: CULTURE URINE Status: Prelim =====$$[id number]$$[id number] DATE/TIME: 01/18/2021 10:07Culture: CULTURE URINE Status: FinalUrine Culture,Comprehensive: P1No growth in 36 - 48 hours. Previous result entered on 01/17/2021 00:48 ET No growth after 18-24 hours.P1 Test performed by: [facility] #: [id number] [address] [place] [id number] [facility] [id number] Director : Steve Prater MD NPI #:Decating Machine Operator : 01/17/[email or web address].SENT REF 01/18/21.1634.XMT.SENT REF ID Date Data Source [id number] 01/13/2021 11:10:00 AM EST [facility] Name Value Range Interpretation Code Description Data Marifer rce(s) Supporting Document(s) UR[facility]ALYSIS [facility] URINALYSIS SOURCE R [facility] COLOR red NORMAL: Yellow [facility] CLARITY hazy NORMAL: Clear [facility] Specific gravity of Urine by Test strip 1.015 1.001 - 1.030 [facility] pH 8 5 - 9 [facility] Glucose [Mass/volume] in Urine by Test strip NORM NORMAL: Negat xiomara [facility] Bilirubin.total [Presence] in Urine by Test strip NEG NORMAL: Negative [facility] Ketones [Presence] in Urine by Test strip NEG NORMAL: Negative [facility] Protein [Mass/volume] in Urine by Test strip 30 NORMAL: Negat xiomara [facility] Nitrite [Presence] in Urine by Test strip NEG NORMAL: Negative [facility] BLOOD 250 NORMAL: Negative A [facility] Leukocyte esterase [Presence] in Urine by Test strip 25 LLUVIA L: Negative [facility] Urobilinogen [Mass/volume] in Urine by Test strip NOR less fidelia n 1.0 mg/dL [facility] MICROSCOPIC See Below [facility] ital WBC 1 - 3 NORMAL: NONE SEEN [facility] Erythrocytes [#/volume] in Urine by Test strip TNTC NORMAL: NON E SEEN A [facility] EPITHELIAL FEW NORMAL: NONE SEEN [facility] Bacteria [Presence] in Urine sediment by Light microscopy Tr du NORMAL: NONE SEEN [facility] ID Date Data Source [id number] 01/07/2021 11:06:00 AM [facility] Name Value Range Interpretation Code Description Data Marifer rce(s) Supporting Document(s) SARS coronavirus 2 RNA Not Detected [facility] [place] This lab was ordered by [facility] and reported by [facility]. ID Date Data Source [id number] 01/07/2021 02:19:00 PM [facility] Andrology LaboratoryName: LUIS LEAHY HEWMRN: [id number] Number: [id number] Date: 01/07/2021 00:00Received Date: 01/07/2021 14:20Physician(s): Isabel CRAIG,Isabel AGUILERA,MDSpecimen(s) ReceivedA: Semen Analysis, BasicProcedure PerformedSemen AnalysisPARTNER: Parris Stone Date of : 06/27/1993 VOLUME, MOTILITY, COUNT AND MORPHOLOGYEjaculate Volume: 0.4 (> 1.5mL)Total Sperm Motility: 0 (> or = 40%)Progressive Sperm Motility: 0 (> or = 32%)Sperm Conc./mL: 0 (> or = 15 million/mL)Total Sperm Count: 0 (> or = 39 million)Sperm Morphology: x (> or = 4% Normal forms) GROSS AND CELLULAR OBSERVATIONSSample Viscosity: 0Sperm Agglutination : 00 = none; 1 = slight; 2 = moderate; 3 = severeColor: ClearpH: 8.3 (normal 7.2 - 8.5)Amorphous Cells: 1Neutrophils: 0Cellular Parameters: 0 = 0-5; 1 = 6-10; 2 = 10-15; 3 = >15 cells/hpfSemen analysis reference values are based on the WHO 5th edition (2010)which defines normal as 5th percentile of 1,941 men whose partnersconceived within 12 months.SAMPLE INFORMATION:Abstinence: 4 days. Initial evaluation 20 min. post collection.Liquefaction: Normal. Collection Site: Lab.OVERALL SEMEN EVALUATION:Abnormal factors present:1. There were no sperm seen in the ejaculate.2. Ejaculate volume is below reference value.NOTE: A fructose test was performed and the result was positive (+). Results-CommentsAzoospermia Procedure Electronically Signed By: Alberto Jackson, Ph.D., HCLJohanny 01/07/2021 14:38cak/01/07/2021 Alberto Jackson, Ph.D., [facility] Name Value Range Interpretation Code Description Data Marifer rce(s) Supporting Document(s) ID Date Data Source [id number] 12/28/2020 12:34:00 [place] [address] PHONE: [phone] FAX: [phone] Name .................. : TOSIN WONG Cristino Acct Number.................. : [id number] ROOM. ................. : VT-03 MR Number ................... : [id number] Stay type ............. : E/R Discharge Date......... ... : 12/27/20 Admit Date ......... : 12/27/20 Admit Phys .................... : MERRITT Date of ....... : 1990 Family Phys ................... : NON STAFF Phone .................. : [phone] Age ................................ : 30 Film# .................. .:[id number] Sex ................................. : M Unsigned transcriptions are preliminary reports and do not represent a medical or legal document CT ABD & PELV W/O ORAL W/[place] [id number] COMPLETE:12/27/20 13:27 KJE 4601 Reason(s): left flank pa in hx of kidney stone CT OF THE ABDOMEN AND PELVIS WITHOUT CONTRAST: TECHNIQUE: CT scan of the abdomen and pelvis is performed without the use of intravenous or oral contrast. COMPARISON: 12/19/20 FINDINGS: There is what appears to be an extrarenal pelvis on the left. There is abnormal orientation of the left kidney with anterior angulation of the renal pelvis. Definitive evidence of obstructive uropathy is not appreciated on the current study. Consider contrast examination for further evaluation if clinically warranted. There is otherwise no significant change from last week. IMPRESSION: No definite evidence of obstructive uropathy. Abnormal orientation of the left kidney with what appears to be an extrarenal pelvis. Consider CT scan with contrast for further evaluation if clinically warranted. While performing the above CT examination, radiation dose reduction was accomplished utilizing automated exposure control, adjusting of the mA and kV based on the patient's body size and/or the use of imperative reconstructive techniques. CT dose: 965 mGycm Electronically Reviewed and Signed By Marlon Decker MD , 12/28/20 12:34, AML Transcribe Initials: DZ , Transcribe Date: 12/27/20 16:29, Dictation Date: Page 1 of 2 [facility] [address] [place] [address] PHONE: [phone] FAX: [phone] Name .................. : TOSIN Rivera Acct Number.................. : [id number] ROOM. ................. : [id number] MR Number ................... : [id number] Stay type ............. : E/R Discharge Date......... ... : 12/27/20 Admit Date ......... : 12/27/20 Admit Phys .................... : [facility] Date of ....... : 1990 Family Phys ................... : NON STAFF Phone .................. : [phone] Age ................................ : 30 Film# .................. .:[id number] Sex ................................. : M Unsigned transcriptions are preliminary reports and do not represent a medical or legal document CT ABD & PELV W/[place] OR[place] W/[place] [id number] COMPLETE:12/27/20 13:27 KJE 4601 Reason(s): left flank pain hx of kidney stone Copy for: EMERGENCY DEPT via mode Copy for: 710 MED REC DISCHARGED Page 2 of 2 Name Value Range Interpretation Code Description Data Marifer rce(s) Supporting Document(s) ID Date Data Source [id number] 12/27/2020 10:55:00 AM EST [facility] 1 OrderSheet [facility] Emergency Department [address] [place] [address] Phone #: otu- [phone] 12/27/2020 10:37 Patient: MARVIN LEAHY Sex: M : 1990 Age: 30yWEIGHT:90.7 kg (S) HEIGHT:68 inches (S) BMI:30.4ALLERGIES: None, SeafoodCHIEF COMPLAINT: flank pain:, Lt, testicular pain:DIAGNOSIS: Flank painLAB ORDERSOrder Description Priority Entered Acknowledged InitialedUrinalysis (Clean STAT 11:14 12/27/2020 11:21 Lilo,Catch) Nicol Bang R.N. ;DIAGNOSTIC STUDY ORDERSOrder Description Priority Entered Acknowledged InitialedCT ABD PEL W/O STAT 11:15 12/27/2020 Ack'd: 11:21 12:00 [place],Oral W/O IV Nicol Bang Jennifer Jennifer R.N.Contrast ; R.N.(Oxygen?(No))(IV?(Yes)) Reason for Study: left flank pain hx of kidney stoneMEDICATION/IV/DRIP/FLUID ORDERSOrder Description Priority Entered Acknowledged InitialedIV NS 1000 mL 11:14 12/27/2020 Ack'd: 11:21 11:32 Lilo,Bolus : Bolus 1000 Nicol Bang Jennifer Jennifer R.N.mL (X1) ; R.N.Morphine IVP 4 mg 11:14 12/27/2020 Ack'd: 11:21 11:33 Lilo,(HIGH ALERT Nicol Bang Jennifer Jennifer R.N.MEDICATION) ; R.N.Zofran 4 mg IVP X 1 11:14 12/27/2020 Ack'd: 11:21 11:32 Lilo,dose: 4 mg (NOW Nicol Bang Jennifer Jennifer R.N.x1) ; R.N.Flomax PO 0.4 mg 11:15 12/27/2020 Ack'd: 11:21 11:33 Lilo,(NOW x1, Do not Nicol Bang Jennifer Jennifer R.N.crush or chew) ; R.NYang 2 OrderSheet [facility] Emergency Department [address] [place] [address] Phone #: ext- [phone] 12/27/2020 10:37 Patient: MARVIN LEAHY Sex: M : 1990 Age: 30yGENERAL ORDERSOrder Description Priority Entered Acknowledged Initialed[Electronically signed by Jennifer Nagy R.N. (15:12/27/2020)][Electronically signed by Nicol Bang (00:00 12/28/2020)][Electronically locked by Jennifer Nagy R.N. (15:12/27/2020)] Name Value Range Interpretation Code Description Data Marifer rce(s) Supporting Document(s) ID Date Data Source [id number] 12/27/2020 10:55:00 AM EST [facility] 1 Medication Reconciliation Report [facility] Emergency Department [address] [place] [address] Phone #: ext- [phone] 12/27/2020 10:37 Patient: MARVIN LEAHY Sex: M : 1990 Age: 30yWeight: 90.7 kgHeight/Length: 68 in.BMI: 30.4ALLERGIES: None, SeafoodThe patient's Home Medications are listed below:CONTINUE TAKING THE FOLLOWING MEDICATIONS: Divalproex Sodium Oral (250 mg), 2x a day Eliquis Oral (5 mg), 2x a day Escitalopram Oxalate Oral (10 mg), 2x a day Ivermectin Oral (3 mg) 3 tabs, every 6 months Memetasone furoate 15mg , 4x a day Methocarbamol Oral (500 mg), 2x a day Pregnyl Intramuscular (65500 unit), 3x a week risperiDONE Oral (1 mg), 2x a day traZODone HCl Oral (50 mg), daily Trolamine Salicylate External Xolair Subcutaneous (150 mg) 300mg, 3x a week Zofran Oral 4 mg, 3x a day, prnThe source(s) of the original Home Medication information:Not obtained.The following Medications were given to the patient in the Emergency Department: 2 Medication Reconciliation Report [facility] Emergency Department [address] [place] [address] Phone #: ext- [phone] 12/27/2020 10:37 Patient: MARVIN LEAHY Sex: M : 1990 Age: 30yNS [IV] IV Fluids bolus 1000 mL wide open, administered: 11:12/27/2020Zofran [IVP] IVP 4 mg, administered: :12/27/2020Flomax [PO] PO 0.4 mg, administered: 11:12/27/2020Morphine [IVP] IVP 4 mg diluted in NS 10 mL, administered: 11:33 02/18/2021The following Medications were prescribed to the patient:Ultram 50 mg tablet Take 1 tablet three times a day as needed for pain for 4 days -- Dispense 12 tablet.Refills: 0. Substitution permitted.Pharmacy - [facility] [id number] ; [place] [address]. . -- Nicol Bang Name Value Range Interpretation Code Description Data Marifer rce(s) Supporting Document(s) ID Date Data Source [id number] 12/27/2020 10:55:00 AM EST [facility] 1 Medication Administration Record [facility] Emergency Department [address] [place] [address] Phone #: ext- [phone] 12/27/2020 10:37 Patient: MARVIN LEAHY Sex: M : 1990 Age: 30yWeight: 90.7 kgHeight/Length: 68 inBMI: 30.4ALLERGIES: None, Seafood Date/Time Medication Administered Medication OrderedStart NS [IV] IV NS 1000 mL Bolus : Bolus 245864:28 12/27/2020 Dose: IV Fluids mL (X1)Jennifer Nagy R.N. Bolus: 1000 mL wide open---- Dispensed: 1000 mL bagStop Site: #1 right :10 1PJennifer andino R.N.Given MORPHINE [IVP] Morphine IVP 4 mg (HIGH ALERT11:33 12/27/2020 Dose: 4 mg IVP MEDICATION)Jennifer Nagy R.N. In: NS 10 mL Site: #1 right forearmGiven ZOFRAN [IVP] (ONDANSETRON HCL) Zofran 4 mg IVP X 1 dose: 4 mg11:28 12/27/2020 Dose: 4 mg IVP (NOW x1)Jennifer Nagy R.N. Site: #1 right forearmGiven FLOMAX [PO] (TAMSULOSIN HCL) Flomax PO 0.4 mg (NOW x1, Do11:33 12/27/2020 Dose: 0.4 mg Capsules PO not crush or chew)Jennifer Nagy R.N. Name Value Range Interpretation Code Description Data Marifer rce(s) Supporting Document(s) ID Date Data Source [id number] 12/27/2020 10:55:00 AM EST [facility] 1 General Instructions [facility] Emergency Department [address] [place] [address] Phone #: ext- [phone] 12/27/2020 10:37 Patient: MARVIN LEAHY Sex: M : 1990 Age: 30yChronic left flank painINSTRUCTIONS(increase oral fluids. the ct scan of the abdomen and pelvis dos not show any kidney stone. follow up withurology on thursday).Your Current Medications: Your current home medications have been reviewed.CONTINUE TAKING THE FOLLOWING MEDICATIONS:Divalproex Sodium Oral : Tablet Delayed Release 250 mg, 2x a day.Eliquis Oral : Tablet 5 mg, 2x a day.Escitalopram Oxalate Oral : Tablet 10 mg, 2x a day.Ivermectin Oral : Tablet 3 mg, 3 tabs every 6 months.Memetasone furoate* : 15mg 4x a day.Methocarbamol Oral : Tablet 500 mg, 2x a day.Pregnyl Intramuscular : Solution Reconstituted 23567 unit, 3x a week.risperiDONE Oral : Tablet Disintegrating 1 mg, 2x a day.traZODone HCl Oral : Tablet 50 mg, daily.Trolamine Salicylate External.Xolair Subcutaneous : Solution Reconstituted 150 mg, 300mg 3x a week.Zofran Oral : 4 mg 3x a day, prn.Prescription Medications:Ultram 50 mg tablet Take 1 tablet three times a day as needed for pain for 4 days -- Dispense 12 tablet.Refills: 0. Substitution permitted.Pharmacy - [facility] [id number] ; [place] [address]. .Follow-up with: Benito Willett M.D., Urology, , [address] [place] [address], [phone] Follow up Thursday. Call for the next available appointment. Reason for referral: evaluation. ADDITIONAL INFORMATIONFlank Pain with Uncertain CauseThe flank is the area between your upper belly (abdomen) and your back. Pain there is often causedby a problem with your kidneys. It might be a kidney infection or a kidney stone. Other causes of flank 2 General Instructions [facility] Emergency Department [address] [place] [address] Phone #: ext- [phone] 12/27/2020 10:37 Patient: MARVIN LEAHY Sex: M : 1990 Age: 30ypain include spinal arthritis, a pinched nerve from a back injury, a rib injury, a bruise, a back musclestrain, inflammation, or spasm.The cause of your flank pain is not certain. You may need other tests.Home careFollow these tips when caring for yourself at home: You may use acetaminophen or ibuprofen to control pain, unless your healthcare provider prescribed another medicine. If you have chronic liver or kidney disease, talk with your provider before taking these medicines. Also talk with your provider first if you've ever had a stomach ulcer or digestive bleeding. If the pain is coming from your muscles, you may get relief with ice or heat. During the first 2 days after the injury, put an ice pack on the painful area for 20 minutes every 2 to 4 hours. This will reduce swelling and pain. A hot shower, hot bath, or heating pad works well for a muscle spasm. You can start with ice, then switch to heat after 2 days. You might find that alternating ice and heat works well. Use the method that feels the best to you.Follow-up careFollow up with your healthcare provider if your symptoms don't get better over the next few days.When to seek medical adviceCall your healthcare provider right away if any of these happen: Repeated vomiting Fever of 100.4F (38C) or higher, or as directed by your healthcare provider Flank pain that gets worse Pain that spreads to the front of your belly (abdomen) Dizziness, weakness, or fainting Blood in your urine Burning feeling when you urinate or the need to urinate often Pain in one of your legs that gets worse Numbness or weakness in a leg 1999- 2019 [employer]. [address] [place] [address]. All rights reserved. This information is not intended as a 3 General Instructions [facility] Emergency Department [address] [place] [address] Phone #: ext- [phone] 12/27/2020 10:37 - Patient: MARVIN LEAHY Sex: M : 1990 Age: 30ysubstitute for professional medical care. Always follow your healthcare professional's instructions. You have been given the following additional information: Flank Pain, Uncertain Cause(Electronically signed by Nicol Bang 12/28/2020 00:00) Name Value Range Interpretation Code Description Data Marifer rce(s) Supporting Document(s) ID Date Data Source [id number] 12/27/2020 10:55:00 AM EST [facility] 1 Clinical Report - Nurses [facility] Emergency Department [address] [place] [address] Phone #: ext- [phone] 12/27/2020 10:37 Patient: MARVIN LEAHY Sex: M : 1990 Age: 30yTRIAGEArrived by private vehicle. Historian: patient. Unaccompanied. ( left side flank pain has been herebefore with kidney stones followed up with post has appointment with uro 12/31, went to sick call and theywould not give anything for pain told to come here he wants pain medications).Acuity: LEVEL 3.Chief Complaint: (left flank pain).Alert. No acute distress.Onset. (july).Treatment PROGRAM SUPPORT SPECIALIST:None.SEPSIS SCREEN: SIRS SCREEN NEGATIVE. SEPSIS SCREEN NEGATIVE. No suspected or confirmedsigns of infection present. --10:53 12/27/20 Michelle Rowland R.N.10:47 12/27/20. BP: 119/77. MAP: 91. HR: 77. RR: 18. O2 saturation: 98%. Temp: 97.3 F (oral). Painlevel now: 06/18. --10:53 12/27/20 Michelle Rowland R.N.Weight: 90.7 kg stated. Height/Length: 68 inches Per Patient. BMI: 30.4. --10:47 12/27/20 Michelle Rowland R.N.MedicationsEliquis Oral (Tablet 5 mg), 2x a day. --10:50 12/27/20 Michelle Rowland R.N. Pregnyl Intramuscular (Solution Reconstituted 81133 unit), 3x a week. --10:55 12/27/20 Michelle Rowland R.N. Divalproex Sodium Oral (Tablet Delayed Release 250 mg), 2x a day. Escitalopram Oxalate Oral (Tablet 10 mg), 2x a day. Ivermectin Oral (Tablet 3 mg) 3 tabs, every 6 months. Memetasone furoate 15mg , 4x a day. Methocarbamol Oral (Tablet 500 mg), 2x a day. risperiDONE Oral (Tablet Disintegrating 1 mg), 2x a day. traZODone HCl Oral (Tablet 50 mg), daily. Trolamine Salicylate External. Xolair Subcutaneous (Solution Reconstituted 150 mg) 300mg, 3x a week. Zofran Oral 4 mg, 3x a day as needed. --11:07 12/27/20 Jennifer Nagy R.N.AllergiesNone. --10:50 12/27/20 Michelle Rowland R.N.Seafood. --11:07 12/27/20 Jennifer Nagy R.N. 2 Clinical Report - Nurses [facility] Emergency Department [address] [place] [address] Phone #: ext- [phone] 12/27/2020 10:37 Patient: MARVIN LEAHY Sex: M : 1990 Age: 30y History PAST MEDICAL HX: Immunizations: up-to-date. SOCIAL HX: Never smoker. No alcohol use or drug use. The patient was offered HIV testing but declined and hepatitis C testing but declined. The patient has not traveled outside the [place] Infectious [...] to hurt yourself before today?". ABUSE ASSESSMENT: Abuse assessment. Abuse denied. No suspicion [...] assessment completed. No skin integrity risk identified. --10:53 12/27/20 Michelle Rowland R.N. Interventions Identification band on patient. To treatment room. --10:53 12/27/20 Michelle Rowland R.N. late entry - 10:59 12/27/20. To treatment room. --11:09 12/27/20 Jennifer Nagy R.N.PHYSICAL ASSESSMENTAmbulatory to room.GENERAL / NEURO / PSYCH: Alert. Oriented X 4. Appears in pain.HEENT: Mucous membranes are pink.RESPIRATORY: Respirations not labored. Breath sounds within normal limits.CVS: Capillary refill less than 2 seconds.GI / : Abdomen soft. Abdominal tenderness in the left lower quadrant. Bowel sounds within normallimi ts. CVA tenderness on the left. No pain with urination. ( Pt states intermittent hematuria).SKIN: Skin is warm and dry. --11:14 12/27/20 Jennifer Nagy R.N.NURSING PROGRESS NOTESPatient gowned. Reassurance given. Three patient identifiers checked. Call light placed in reach. Side 3 Clinical Report - Nurses [facility] Emergency Department [address] [place] [address] Phone #: ext- [phone] 12/27/2020 10:37 Patient: MARVIN LEAHY Sex: M : 1990 Age: 30yrails up x 2. Bed placed in lowest position. Brakes of bed on. Patient ready for evaluation- ED physiciannotified. --11:12/27/20 Jennifer Nagy R.N.Patient ID band checked for patient name and birthdate: patient confirmed. Instructions provided to collectclean catch urine and patient verbalized understanding. Clean catch urine collected; sample sent to lab forurinalysis. Specimen labeled in the presence of the patient. --11:12/27/20 Jennifer Nagy R.N.11:20 12/27/2020 Site #1 started via IV in the right forearm with an 20g angiocath, with aseptic techniqueand good blood return; one attempt. Blood drawn: green and yellow tube(s). Saline lock flushed with 10 mLsaline. --11:12/27/20 Jennifer Nagy R.N.11:25 12/27/20. BP: 119/71. HR: 73. RR: 18. O2 saturation: 100%. --11:12/27/20 Jennifer Nagy R.N.11:28 12/27/2020 Started bag #1 1000 mL IV Fluids NS; bolus of 1000 mL wide open via site #1 via IVpump. Allergies verified and confirmed 5 rights. IV patency established. IV site checked: no pain, redness,or swelling. IV flushed thoroughly pre- and post-medication administration. Information reviewed withpatient including reason for taking this medication, signs of allergic reaction and precautions. Verbalizesunderstanding. --11:32 12/27/20 Jennifer Nagy R.N.11:12/27/2020 Zofran (Ondansetron HCl) IVP 4 mg given over 2 minute(s) via site #1. Allergies verifiedand confirmed 5 rights. IV patency established. IV site checked: no pain, redness, or swelling. IV flushedthoroughly pre- and post-medication administration. IVP given by RN. Information reviewed with patientincluding reason for taking this medication, signs of allergic reaction and precautions. Verbalizesunderstanding. --11:32 12/27/20 Jennifer Nagy R.N.11:33 12/27/2020 Flomax (Tamsulosin HCl) PO Capsules 0.4 mg given. Allergies verified and confirmed 5rights. Information reviewed with patient including reason for taking this medication, signs of allergicreaction and precautions. Verbalizes understanding. --11:33 12/27/20 Jennifer Nagy R.N.11:33 12/27/2020 Morphine IVP 4 mg given diluted in NS 10mL over 4 minute(s) via site #1. Allergiesverified and confirmed 5 rights. IV patency established. IV site check ed: no pain, redness, or swelling. IVflushed thoroughly pre- and post-medication administration. IVP given by RN. Information reviewed withpatient including reason for taking this medication, signs of allergic reaction, precautions and sedativewarning. Verbalizes understanding. --11:33 12/27/20 Jennifer Nagy R.N.Reassessment acuity: LEVEL 3.Rounding: Pain: assessed pain level. Position: states comfortable and repositioned. Proximity ofpossessions / care items: call light within easy reach. Plug ins: assured IV pump plugged in; checkedstatus of equipment in use; located all cords, tubes, and lines to prevent fall hazard. Set expectations:advised patient of rounding protocol timing and asked if they needed anything else at this time. Thepatient is calm and resting quietly. Overall patient status is improved- he states feels better. --11: Jennifer Nagy R.N. 4 Clinical Report - Nurses [facility] Emergency Department [address] [place] [address] Phone #: ext- [phone] 12/27/2020 10:37 Patient: MARVIN LEAHY Sex: M : 1990 Age: 30y Patient transported to [place] by wheelchair with mask and medical imaging technologist. --12:00 12/27/20 Jennifer Nagy R.N. 12:12/27/2020 Zofran IVP Response: no adverse reaction. --12:12/27/20 Jennifer Nagy R.N. 12:12/27/2020 Morphine IVP Response: no adverse reaction pain is improving. Symptoms have improved the patient feels better. --12:00 12/27/20 Jennifer Nagy R.N. 12:00 12/27/2020 Flomax PO Response: no adverse reaction. --12:00 12/27/20 Jennifer Nagy R.N. Patient returned from CT by wheelchair with mask and medical imaging technologist. --12:15 12/27/20 Jennifer Nagy R.N. 12:40 12/27/20. BP: 135/82. MAP: 99. HR: 74. RR: 18. O2 saturation: 98% on room air. Pain level now: 01/16. --12:46 12/27/20 Jennifer Nagy R.N. Reassessment acuity: LEVEL 3. Rounding: Pain: assessed pain level. Position: states comfortable. Personal care / toileting: assisted with toileting. Proximity of possessions / care items: call light within easy reach. Plug ins: assured IV pump plugged in; checked status of equipment in use; located all cords, tubes, and lines to prevent fall hazard. Set expectations: advised patient of rounding protocol timing and asked if they needed anything else at this time. Reassessment after medication administered. Pain still present but improving. He reports no complaints and he is calm and resting quietly. Overall patient status is improved- he states feels better. ( Pt states flank pain much better). --12:46 12/27/20 Jennifer Nagy R.N. late entry - 13:10 12/27/20. ( Pt IV beeping and after this was d/c pt stated "i need to tell you something. I'm going through a lot right now, if you can just inject me with something so i can get some sleep". Pt was instructed that this is illegal, and will send in MD to talk to him, pt again begged "please, you don't understand", pt again instructed that there needs to be MD order to give medication and he stated "but no one would know". MD Nolasco made aware and spoke to pt about d/c.). --13:36 12/27/20 Jennifer Nagy R.N. 13:10 12/27/2020 IV Fluids NS via IV site #1 Discontinued: bag #1 completed upon discharge. Total amount infused: 1000 mL. IV patency established. IV site checked: no pain, redness, or swelling. IV flushed thoroughly. --13:33 12/27/20 Jennifer Nagy R.N.DISPOSITION / DISCHARGE 13:35 12/27/2020 Site #[address] upon discharge (PT LEFT WITHOUT D/C; mixing picker tender order in place, MD and police is aware). --13:40 12/27/20 Jennifer Nagy R.N. Departure time: late entry - 13:35 12/27/2020. The patient eloped and the patient left prior to discharge education being provided. The patient left the Emergency Department; patient was unaccompanied (Prior 5 Clinical Report - Nurses [facility] Emergency Department [address] [place] [address] Phone #: ext- [phone] 12/27/2020 10:37 Patient: MARVIN LEAHY Sex: M : 1990 Age: 30y to discharge). The patient appears to be alert, oriented x4 and uncooperative. He notified staff prior to leaving the department and stated is leaving ("i want to "). Notified the ED physician of patient departure. Prior to leaving, he was advised to stay for completion of treatment and return if needed. He was informed of the risks of leaving and verbalized understanding of these risks. Patient left without signing form prior to leaving. He left the Emergency Department ambulatory and via private vehicle. ( Upon entering pt room to discharge him he was crying loudly and could not understand what pt was saying, took Teresa LOONEY and MD Nolasco into room as witness; Unable to understand most of what pt stated but did clearly hear "i just want to " but would not stay why, continually repeated this. We stated we will now keep pt to observe and send to psych for suicidal idea and pt pushed through all staff members and went to parking lot. Nurse Parts Delivery Driver Taiwo Ash RN aware, MD Nolasco also aware and present. Police called with identification for mixing picker tender order for psych. Pt PIV is still in place, MD muhammad). --13:40 12/27/20 Jennifer Nagy R.N. 13:35 12/27/20. BP: deferred. HR: deferred. RR: deferred. O2 saturation: deferred. Temp: deferred. Pain level now deferred. --13:40 12/27/20 Jennifer Nagy R.N. ( When notified of patient elopement I went to the parking lot to find the patient, pt was discovered walking across the parking lot visibly upset. I attempted to encourage the patient to talk and return to the ED to address his concerns. Patient got into vehicle at which point I continued to try and establish communication, patient was sobbing and would not engage in conversation. Patient came very close to running this field underwriter over with his vehicle as he speed away at a high rate of speed.). --14:58 12/27/20 Sandeep Dixon.Locked/Released at 12/27/2020 15:04 by Jennifer Nagy R.N. Name Value Range Interpretation Code Description Data Marifer rce(s) Supporting Document(s) ID Date Data Source [id number] 12/27/2020 10:55:00 AM [facility] 1 Clinical Report - Physicians/Mid Levels [facility] Emergency Department [address] [place] [address] Phone #: ext- [phone] 12/27/2020 10:37 Patient: MARVIN LEAHY Sex: M : 1990 Age: 30y Time Seen: 10:58 12/27/2020; initial patient contact, initial documentation. Arrived- By private vehicle. Historian- patient. Disposition decision: 13:25 12/27/2020.HISTORY OF PRESENT ILLNESS Chief Complaint: LEFT FLANK PAIN and TESTICULAR PAIN. This started 4 days ago and is still present and worsening. The problem is described as severe. It was gradual in onset and has been waxing/waning. No penile discharge, urinary frequency, genital lesion, urgency of urination or Little catheter problem. No inguinal swelling or problem with the foreskin. He has had discomfort with urination and flank pain. Able to void. Not voiding only small amounts. The patient has had no unprotected intercourse or not had an exposure to a sexually transmitted disease. Sexual history is noncontributory. No homosexual activity. (patient was diagnosed with kidney stone on dec 19, 2020. he was discharged home with Flomax and hydrocodone. came back the following day and given Toradol and advised to continue all medications. patient ran out of his medication and followed up with clinic who would not give him any pain medications. he has an appointment with urology on patient states pain is 8/10 in intensity. admits to nausea bit no vomiting. patient is on eliquis for blood clot and cannot take motrin).REVIEW OF SYSTEMSNo fever, chills, flank pain, hematuria or abdominal pain. No vomiting, diarrhea, black stools, headache orsore throat. No chest pain, cough, joint pain, skin rash or back pain. All other systems reviewed and arenegative.PAST HISTORYSee nurses notes. Problems: Hypertension. Lumbar Strain. Chronic Back Pain. DVT - Deep Venous Thrombosis. Nephrolithiasis. Ureterolithiasis. Urinary Calculi. Syncope. Renal Colic. Skin Problems. Additional Surgeries: None. 2 Clinical Report - Physicians/Mid Levels [facility] Emergency Department [address] [place] [address] Phone #: ext- [phone] 12/27/2020 10:37 Patient: MARVIN LEAHY Sex: M : 1990 Age: 30y Medications: Divalproex Sodium Oral (Tablet Delayed Release 250 mg), 2x a day. Escitalopram Oxalate Oral (Tablet 10 mg), 2x a day. Ivermectin Oral (Tablet 3 mg) 3 tabs, every 6 months. Memetasone furoate 15mg , 4x a day. Methocarbamol Oral (Tablet 500 mg), 2x a day. risperiDONE Oral (Tablet Disintegrating 1 mg), 2x a day. traZODone HCl Oral (Tablet 50 mg), daily. Trolamine Salicylate External. Xolair Subcutaneous (Solution Reconstituted 150 mg) 300mg, 3x a week. Zofran Oral 4 mg, 3x a day as needed. Pregnyl Intramuscular (Solution Reconst ituted 56162 unit), 3x a week. Eliquis Oral (Tablet 5 mg), 2x a day. Allergies: None. Seafood.SOCIAL HISTORYNever smoker. No alcohol use or drug use.ADDITIONAL NOTESThe nursing notes have been reviewed.PHYSICAL EXAMVital Signs: 12/27/2020 10:47 BP: 119/77. MAP: 91. HR: 77. RR: 18. O2 saturation: 98%. Temp: 97.3 F.Pain level now: 8/10. Oxygen saturation normal.Appearance: Alert. Oriented X3. Patient in mild distress.ENT: Normal external inspection. Pharynx normal.Neck: Neck supple.CVS: Heart sounds normal.Respiratory: No respiratory distress. Painless inspiration.Abdomen: Soft. Mild tenderness in the left side of the abdomen. No guarding or rebound tenderness.Bowel sounds normal. No organomegaly. No mass. Femoral pulses equal.Back: Moderate CVA tenderness on the left.Skin: Skin warm and dry. Normal skin color. No rash. Normal skin turgor.Extremities: Lower extremity edema. Calf tenderness. Extremities exhibit normal ROM. No lowerextremity edema.Neuro: Oriented X 3. No motor deficit.LABS, X-RAYS, AND EKGCT Abdomen - Pelvis: Jeronimo middleton Andrew - 12/27/2020 12:44:08 PMNo definite evidence of obstructive uropathy. Abnormal orientation of the left kidney with what appears cate an extrarenal pelvis. Consider CT scan with contrast for further evaluation as clinically warranted. Thestudy was interpreted by the radiologist. 3 Clinical Report - Physicians/Mid Levels [facility] Emergency Department [address] [place] [address] Phone #: ext- [phone] 12/27/2020 10:37 Patient: MARVIN LEAHY Sex: M : 1990 Age: 30y Laboratory Tests: Urinalysis: (DERRICK: 12/27/2020 11:20) ( MsgRcvd 12/27/2020 12:43) Final results Test Result Flag Units (Reference) URINALYSIS URINALYSIS SOURCE R COLOR yellow (NORMAL: Yello CLARITY clear (NORMAL: Clear SPEC GRAVITY 1.015 (1.001 - 1.030 pH 7 (5 - 9) GLUCOSE NORM (NORMAL: Negat BILIRUBIN NEG (NORMAL: Negat KETONE NEG (NORMAL: Negat PROTEIN NEG (NORMAL: Negat NITRITE NEG (NORMAL: Negat BLOOD 150 A (NORMAL: Negat LEUK EST NEG (NORMAL: Negat UROBILINOGEN NOR (less than 1.0 MICROSCOPIC See Below WBC 5 - 7 A (NORMAL: NONE RBC 40 - 50 A (NORMAL: NONE EPITHELIAL FEW (NORMAL: NONE BACTERIA Trace (NORMAL: NONE CRYSTALS See Below CALCIUM OX Trace (NORMAL: NONE.PROGRESS AND PROCEDURESCourse of Care: 13:19 12/27/20. urinalysis showed blood in the urine no wbc. CT scan of the abdomenand pelvis did not show any kidney stone or any other pathology that can be causing his pain. willdischarge him home . advised follow up with Dr Willett of urology 13:33 12/27/20. patient was about to be discharged when the nurse told me that he was crying. i went to see the patient and asked him why he was crying. he states that he just wants to . i asked him if he is depressed and if he has thought of harming himself. patient left the ER crying and refused to be evaluated Police was called for a mixing picker tender order for psych evaluation. Patient counseled in person regarding the patient's stable condition, test results, diagnosis and need for follow-up. Patient agrees with plan of care. 13:25. Disposition: Discharged home in good and improved condition (13:26). Condition: good and stable. Discharge decision based on the following: patient's condition is stable; patient's exam is stable; no seriously abnormal test results; stable condition on repeat evaluation; social support is adequate; transportation is available; follow-up is available; clinical impression is consistent with outpatient treatment.CLINICAL IMPRESSION Chronic left flank pain 4 Clinical Report - Physicians/Mid [facility] Emergency Department [address] [place] [address] Phone #: ext- [phone] 12/27/2020 10:37 Patient: MARVIN LEAHY Sex: M : 1990 Age: 30yINSTRUCTIONS (increase oral fluids. the ct scan of the abdomen and pelvis dos not show any kidney stone. follow up with urology on thursday). Your Current Medications: Your current home medications have been reviewed. CONTINUE TAKING THE FOLLOWING MEDICATIONS: Divalproex Sodium Oral : Tablet Delayed Release 250 mg, 2x a day. Eliquis Oral : Tablet 5 mg, 2x a day. Escitalopram Oxalate Oral : Tablet 10 mg, 2x a day. Ivermectin Oral : Tablet 3 mg, 3 tabs every 6 months. Memetasone furoate* : 15mg 4x a day. Methocarbamol Oral : Tablet 500 mg, 2x a day. Pregnyl Intramuscular : Solution Reconstituted 73675 unit, 3x a week. risperiDONE Oral : Tablet Disintegrating 1 mg, 2x a day. traZODone HCl Oral : Tablet 50 mg, daily. Trolamine Salicylate External. Xolair Subcutaneous : Solution Reconstituted 150 mg, 300mg 3x a week. Zofran Oral : 4 mg 3x a day, prn. Prescription Medications: Ultram 50 mg tablet Take 1 tablet three times a day as needed for pain for 4 days -- Dispense 12 tablet. Refills: 0. Substitution permitted. Pharmacy - [facility] [phone] ; [place] [address]. . Follow- up with: Benito Willett M.D., Urology, , [address] [place] [address], [phone] Follow up Thursday. Call for the next available appointment. Reason for referral: evaluation.(Electronically signed by Nicol Bang 12/28/2020 00:00) Name Value Range Interpretation Code Description Data Marifer rce(s) Supporting Document(s) ID Date Data Source [id number] 12/27/2020 05:36:00 PM EST [facility] Name Value Range Interpretation Code Description Data Marifer rce(s) Supporting Document(s) SARS-CoV-2 (COVID 19) NEGATIVE - SARS-CoV-2 (COVID19) [place] This lab was ordered by [facility] a nd reported by [facility]. ID Date Data Source [id number] 12/31/2020 11:30:00 AM [facility] Name Value Range Interpretation Code Description Data Marifer rce(s) Supporting Document(s) CULTURE URINE [facility] spital _CULTURE URINE_$$[id number]$$[id number]$$443306$$834760$$712876$$265185$$797883$$350230$$490558$$ 699589$$729369$$009271$$796812$$749176$$000059$$524975$$358169$$852835$$845280$$ 240206$$704445$$271728$$163621$$813099$$515827$$[id number]$$[id number] -- Continued on next page --Patient: TOSIN Rivera Order: [id number] Page 2Culture: CULTURE URINE Status: Final ==== -- Continued on next page --Patient: TOSIN Rivera Order: [id number] Page 2Culture: CULTURE URINE Status: Prelim =====$$[id number] DATE/TIME: 12/31/2020 10:06Culture: CULTURE URINE Status: FinalUrine Culture,Comprehensive: P1No growth in 36 - 48 hours. Previous result entered on 12/29/2020 02:19 ET No growth after 18-24 hours.P1 Test performed by: [facility] SARITA #: [id number] [address] [place] [address] [phone] [facility] [id number]Medical Director : Steve Prater MD NPI #:Lab Di fiorella : 12/29/20.0754.XMT.SENT REF 12/31/20.1130.XMT.SENT REF 12/31/20.1138.XMT.SENT REF ID Date Data Source [id number] 12/27/2020 12:42:00 PM EST [facility] Name Value Range Interpretation Code Description Data Marifer rce(s) Supporting Document(s) URINALYSIS [facility] URINALYSIS SOURCE R [facility] COLOR yellow NORMAL: Yellow [facility] CLARITY clear NORMAL: Clear [facility] Specific gravity of Urine by Test strip 1.015 1.001 - 1.030 [facility] pH 7 5 - 9 [facility] Glucose [Mass/volume] in Urine by Test strip NORM NORMAL: Negat xiomara [facility] Bilirubin.total [Presence] in Urine by Test strip NEG NORMAL: Negative [facility] Ketones [Presence] in Urine by Test strip NEG NORMAL: Negative [facility] Protein [Mass/volume] in Urine by Test strip NEG NORMAL: Negat xiomara [facility] Nitrite [Presence] in Urine by Test strip NEG NORMAL: Negative [facility] BLOOD 150 NORMAL: Negative A [facility] Leukocyte esterase [Presence] in Urine by Test strip NEG LLUVIA L: Negative [facility] Urobilinogen [Mass/volume] in Urine by Test strip NOR less fidelia n 1.0 mg/dL [facility] MICROSCOPIC See Below [facility] ital WBC 5 - 7 NORMAL: NONE SEEN A [facility] Erythrocytes [#/volume] in Urine by Test strip 40 - 50 NORMAL: NON E SEEN A [facility] EPITHELIAL FEW NORMAL: NONE SEEN [facility] Bacteria [Presence] in Urine sediment by Light microscopy Tr du NORMAL: NONE SEEN [facility] Crystals [type] in Urine sediment by Light microscopy See Below [facility] CALCIUM OX Trace NORMAL: NONE SEEN [facility] ID Date Data Source [id number] 12/20/2020 11:29:00 AM EST [facility] 1 OrderSheet [facility] Emergency Department [address] [place] [address] Phone #: ext- [phone] 12/20/2020 11:28 Patient: [...] IVP 12:30 12/20/2020 12:58 Harry 2 OrderSheet [facility] Emergency Department [address] [place] [address] Phone #: ext- [phone] 12/20/2020 11:28 Patient: [...] rce(s) Supporting Document(s) ID Date Data Source [id number] 12/20/2020 11:29:00 AM EST [facility] 1 Medication Reconciliation Report [facility] Emergency Department [address] [place] [address] Phone #: ext- [phone] 12/20/2020 11:28 Patient: [...] 3x a week 2 Medication Reconciliation Report [facility] Emergency Department [address] [place] [address] Phone #: ext- [phone] 12/20/2020 11:28 Patient: [...] rce(s) Supporting Document(s) ID Date Data Source [id number] 12/20/2020 11:29:00 AM EST [facility] 1 Medication Administration Record [facility] Emergency Department [address] [place] [address] Phone #: ext- [phone] 12/20/2020 11:28 Patient: MARVIN LEAHY Sex: M : 1990 Age: 30yWeight: 90.7 kgHeight/Length: 68 inBMI: 30.4ALLERGIES: Seafood Date/Time Medication Administered Medication OrderedStart NS [IV] NS IV : Bolus 1000 mL, then 52609:57 12/20/2020 Dose: IV Fluids mL/Edilberto Garza RN Rate: 100 mL/hr over 5 hour(s)---- Bolus: 1000 mL over 1 hour(s)Stop Dispensed: 1000 mL bag14:51 12/20/2020 Site: #1 left handGinamansoor Augustin Garza ZOFRAN [IVP] (ONDANSETRON HCL) Zofran [...] rce(s) Supporting Document(s) ID Date Data Source [id number] 12/20/2020 11:29:00 AM EST [facility] 1 General Instructions [facility] Emergency Department [address] [place] [address] Phone #: ext- [phone] 12/20/2020 11:28 Patient: [...] instructions verbalized by patient. 2 General Instructions [facility] Emergency Department [address] [place] [address] Phone #: ext- [phone] 12/20/2020 11:28 Patient: [...] break up the stone. 3 General Instructions [facility] Emergency Department [address] [place] [address] Phone #: ext- [phone] 12/20/2020 11:28 Patient: [...] barley, and beans. Phytates 4 General Instructions [facility] Emergency Department [address] [place] [address] Phone #: ext- [phone] 12/20/2020 11:28 Patient: MARVIN LEAHY Sex: M [...] new findings that may affect your care.Call [phone] if you have any of these: Weakness, dizziness, or faintingWhen to seek medical adviceCall your healthcare provider right away if any of these occur: Pain that is not controlled by the medicine given 5 General Instructions [facility] Emergency Department [address] [place] [address] Phone #: ext- [phone] 12/20/2020 11:28 Patient: MARVIN LEAHY Sex: M [...] for 8 hours and increasing bladder pressure [phone] [employer] [place] [address]. All rights reserved. This information is not [...] of cystitisis an infection. 6 General Instructions [facility] Emergency Department [address] [place] [address] Phone #: ext- [phone] 12/20/2020 11:28 Patient: [...] of: An enlarged prostate 7 General Instructions [facility] Emergency Department [address] [place] [address] Phone #: ext- [phone] 12/20/2020 11:28 Patient: [...] the foreskin when cleaning. 8 General Instructions [facility] Emergency Department [address] [place] [address] Phone #: ext- [phone] 12/20/2020 11:28 Patient: [...] any findings that may affect your care.Call [phone] if any of these occur: Trouble breathing [...] to keep medicine down 9 General Instructions [facility] Emergency Department [address] [place] [address] Phone #: ext- [phone] 12/20/2020 11:28 Patient: MARVIN LEAHY Sex: M : 1990 Age: 30y Weakness or dizziness [id number] [employer] [place] [address]. All rights reserved. This information is not [...] rce(s) Supporting Document(s) ID Date Data Source [id number] 12/20/2020 11:29:00 AM EST [facility] 1 Clinical Report - Nurses [facility] Emergency Department [address] [place] [address] Phone #: ext- [phone] 12/20/2020 11:28 Patient: MARVIN LEAHY Sex: M : 1990 Age: 30yTRIAGEArrived by EMS. Historian: patient. ( pt seen [facility] with dx kidney stone , this morning on [place] ptwas found on floor rocking in pain, EMS started saline lock and gave toradol 15 mg and zofran 4 mg IVwith some relief).Triage time: 11:31 12/20/2020. Acuity: LEVEL 3.Chief Complaint: ABDOMINAL PAIN.11:49 12/20/20.This started today. He has had abdominal pain.Treatment PROGRAM SUPPORT SPECIALIST:None.SEPSIS SCREEN: SIRS SCREEN NEGATIVE. SEPSIS SCREEN NEGATIVE. [...] Garza RN 2 Clinical Report - Nurses [facility] Emergency Department [address] [place] [address] Phone #: ext- [phone] 12/20/2020 11:28 Patient: MARVIN LEAHY Sex: M : 1990 Age: 30y Cefdinir Oral 300 mg, 2x a day, started yesterday. --11:44 12/20/20 Harry Garza RN Zofran Oral 4 mg, 3x a day as needed. --11:45 12/20/20 Harry Garza RN.AllergiesSeafood. --11:43 12/20/20 Harry Garza RN.ADDITIONAL SURGERIES:None. --11:45 12/20/20 Harry Garza RN.Vlkmcwy75:49 12/20/20.SOCIAL HX: Never smoker. Alcohol use. (rarely). [...] peptic ulcer disease. --11:52 12/20/20 Harry Garza RN.Meonqstgkflyf24:49 12/20/20. Identification and allergy band on patient. To room. --11:49 12/20/20 Harry Garza RN.PHYSICAL ASSESSMENT 3 Clinical Report - Nurses [facility] Emergency Department [address] [place] [address] Phone #: [phone] ext- [phone] 12/20/2020 11:28 Patient: MARVIN LEAHY Sex: M [...] 12/20/20. Cardiac rhythm: normal sinus rhythm; (1130). front desk monitor, NIBP monitor and pulse oximeter placed on patient; residential monitor- Lead II; monitor alarms on; monitor strip [...] post-medication administration. Information reviewed with patient. --12:57 2/11/21 Harry Garza RN 12:57 12/20/2020 Zofran (Ondansetron [...] patient including sedative warning. --12:58 12/20/20 Harry aGrza RN Checked patient name and birthdate: patient confirmed. Blood samples drawn by tech. (1250). --12:58 12/20/20 Harry Garza RN Warming measur es: blanket applied (1300). --12:59 12/20/20 Harry Garza RN 4 Clinical Report - Nurses [facility] Emergency Department [address] [place] [address] Phone #: ext- [phone] 12/20/2020 11:28 Patient: MARVIN LEAHY Sex: M [...] Patient verbalized understanding. Written instructions provided in [place]. The patient was discharged by the physician assistant professor of forestry. He was discharged home. He left ambulatory and via private vehicle. Lot [employer] driving. --15:02 12/20/20 Harry Garza RN 14:45 12/20/20. BP: 121/52. MAP: 75. HR: 78. RR: 18. O2 saturation: 98%. Temp: 98.1 F (temporal). Pain level now: 02/16. --15:02 12/20/20 Harry Garza RN.Locked/Released at 09/2021 16:56 by Harry Garza RN Name Value Range Interpretation Code Description Data Marifer rce(s) Supporting Document(s) ID Date Data Source [id number] 12/20/2020 11:29:00 AM [facility] 1 Clinical Report - Physicians/Mid Levels [facility] Emergency Department [address] [place] [address] Phone #: ext- [phone] 12/20/2020 11:28 Patient: [...] dx kidney stone , this morning on pt was found on floor rocking in [...] yesterday. 2 Clinical Report - Physicians/Mid Levels [facility] Emergency Department [address] [place] [address] Phone #: ext- [phone] 12/20/2020 11:28 - Patient: MARVIN LEAHY Sex: [...] Tests: 3 Clinical Report - Physicians/Mid Levels [facility] Emergency Department [address] [place] [address] Phone #: ext- [phone] 12/20/2020 11:28 Patient: [...] NONE SEEN ) PLT EST NORMAL (NORMAL: LLUVIA COMMENT: CMP: (DERRICK: 12/20/2020 12:50) ( MsgRcvd [...] - 3.2) 4 Clinical Report - Physicians/Mid [facility] Emergency Department [address] [place] [address] Phone #: ext- [phone] 12/20/2020 11:28 Patient: [...] mL/min Normal Lipase: (DERRICK: 12/20/2020 12:50) ( [facility] 13[facility]22) Final results Test Result Flag Units (Reference) LIPASE 29 U/L (13 - 60) Urinalysis: (DERRICK: 12/20/2020 12:50) ( Mscvd 12/20/2020 13:40) Final results Test Result Flag [...] complaints. 5 Clinical Report - Physicians/Mid Levels [facility] Emergency Department [address] [place] [address] Phone #: ext- [phone] 12/20/2020 11:28 Patient: MARVIN LEAHY Sex: M [...] there, thus no urology coverage currently.Will call [facility] and consult. Called urology office and pending call back/consult.14:04 12/20/20. Noted that pt is lying peacfully in bed in nad. Pending call back.Called urology (Dr. Marrufo). Discussed pt. Pt has no fever, has appropriate meds rx'ed, and has no 6 Clinical Report - Physicians/Mid Levels [facility] Emergency Department [address] [place] [address] Phone #: ext- [phone] 12/20/2020 11:28 Patient: MARVIN LEAHY Sex: M : 1990 Age: 30y elevated WBC, feels could pass. Does inquire about a urine culture. ? if it has demos any growth yet. Do not have available. will inquire. Reviewed and ntoed that a urine culture was not ordered, will order. Called Dr. Niru jurado and iinformed. Sts taht and agrees wiht [...] arise. 7 Clinical Report - Physicians/Mid Levels [facility] Emergency Department [address] [place] [address] Phone #: ext- [phone] 12/20/2020 11:28 Patient: MARVIN LEAHY Sex: M [...] rce(s) Supporting Document(s) ID Date Data Source [id number] 12/25/2020 06:41:00 AM [facility] Name Value Range Interpretation Code Description Data [facility] rce(s) Supporting Document(s) CULTURE URINE [facility] spital _CULTURE URINE_$$[id number]$$911592$$133177$$380448$$793802$$785200$$798795$$743080$$961088$$ 806652$$382904$$139812$$178734$$222196$$828436$$652043$$168482$$106327$$344129$$ 291483$$257774$$665961$$643256$$524831$$632788$$[id number]$$[id number] -- Continued on next page --Patient: TOSIN WONG N Order: [id number] Page 2Culture: CULTURE URINE Status: Final ==== -- Continued on next page --Patient: TOSIN WONG N Order: [id number] Page 2Culture: CULTURE URINE Status: Prelim =====$$[id number] DATE/TIME: 12/24/2020 16:06Culture: CULTURE URINE Status: FinalUrine Culture,Comprehensive: P1No growth in 36 - 48 hours. Previous result entered on 12/23/2020 03:00 ET No growth after 18-24 hours.P1 Test performed by: [facility] Irlanda STEIN #: [id number] [address] [place] [address] [id number] [facility] [id number] Director : Steve Prater MD NPI #:Lab Di fiorella : 12/24/20.0618.XMT.SENT REF 12/25/20.0641.XMT.SENT REF ID Date Data Source [id number] 12/20/2020 01:39:00 PM EST [facility] Name Value Range Interpretation Code Description Data Marifer rce(s) Supporting Document(s) URINALYSIS [facility] URINALYSIS SOURCE R [facility] COLOR yellow NORMAL: Yellow [facility] CLARITY clear NORMAL: Clear [facility] Specific gravity of Urine by Test strip 1.015 1.001 - 1.030 [facility] pH 8 5 - 9 [facility] Glucose [Mass/volume] in Urine by Test strip NORM NORMAL: Negat [facility] Bilirubin.total [Presence] in Urine by Test strip NEG NORMAL: Negative [facility] Ketones [Presence] in Urine by Test strip NEG NORMAL: Negative [facility] Protein [Mass/volume] in Urine by Test strip NEG NORMAL: Negat [facility] Nitrite [Presence] in Urine by Test strip NEG NORMAL: Negative [facility] BLOOD 250 NORMAL: Negative A [facility] Leukocyte esterase [Presence] in Urine by Test strip NEG LLUVIA L: Negative [facility] Urobilinogen [Mass/volume] in Urine by Test strip NOR less fidelia n 1.0 mg/dL [facility] MICROSCOPIC See Below [facility] ital WBC 1 - 3 NORMAL: NONE SEEN [facility] Erythrocytes [#/volume] in Urine by Test strip 10 - 15 NORMAL: NON E SEEN A [facility] EPITHELIAL FEW NORMAL: NONE SEEN [facility] Bacteria [Presence] in Urine sediment by Light microscopy Tr du NORMAL: NONE SEEN [facility] Crystals [type] in Urine sediment by Light microscopy See Below [facility] CALCIUM OX 2+ NORMAL: NONE SEEN A [facility] ID Date Data Source [id number] 12/20/2020 01:39:00 PM EST [facility] Name Value Range Interpretation Code Description Data Marifer rce(s) Supporting Document(s) COMPREHENSIVE METABOLIC PANEL [facility] COMPREHENSIVE METABOLIC PANEL Sodium [Moles/volume] in Serum or Plasma 139 mEq/L 134 - 153 [facility] Potassium [Moles/volume] in Serum or Plasma 3.8 mEq/L 3.6 - 5.0 [facility] Chloride [Moles/volume] in Serum or Plasma 102 mEq/L 98 - 107 [facility] Carbon dioxide, total [Moles/volume] in Serum or Plasma 28 MEQ/L 22 - 30 [facility] Glucose [Mass/volume] in Serum or Plasma 84 MG/DL 70 - 99 [facility] BUN 5 MG/DL 7 - 21 [facility] Creatinine [Mass/volume] in Serum or Plasma 1.0 MG/DL 0.7 - 1.5 [facility] BUN/CREAT 5 8 - 27 L [facility] al Protein [Mass/volume] in Serum or Plasma 7.4 G/DL 6.3 - 8.2 [facility] Albumin [Mass/volume] in Serum or Plasma 4.4 G/DL 3.9 - 5.0 [facility] Globulin [Mass/volume] in Serum by calculation 3.0 GM/DL 2.4 - 3.2 [facility] A/G RATIO 1.5 0.8 - 2.0 [facility] Calcium [Mass/volume] in Serum or Plasma 9.7 MG/DL 8.4 - 10.2 [facility] Bilirubin.total [Mass/volume] in Serum or Plasma <0.7 MG/DL 0.2 - 1.3 [facility] Alkaline phosphatase [Enzymatic activity/volume] in Serum or Plasma 70 U/L 38 - 126 [facility] Aspartate aminotransferase [Enzymatic activity/volume] in Serum or Plasma 27 U/L 5 - 40 [facility] Alanine aminotransferase [Enzymatic activity/volume] in Seru m or Plasma 32 U/L 7 - 56 [facility] Anion gap 3 in Serum or Plasma 9.0 mmol/L 8.0 - 16.0 [facility] AGE 30 yrs [facility] al NON-AA GFR >60 mL/min [facility] ital AFR AMER GFR >60 mL/min [facility] Male GFR In [...] >32 mL/min Normal ID Date Data Source [id number] 12/20/2020 01:22:00 PM EST [facility] Name Value Range Interpretation Code Description Data Marifer rce(s) Supporting Document(s) Lipase [Enzymatic activity/volume] in Serum or Plasma 29 U/L 13 - 60 [facility] ID Date Data Source [id number] 12/20/2020 01:18:00 PM EST [facility] Name Value Range Interpretation Code Description Data Marifer rce(s) Supporting Document(s) CBC W/AUTOMATED DIFF [facility] COMPLETE BLOOD COUNT Leukocytes [#/volume] in Blood by Automated count 5.5 10^3/uL 4.2 - 1 1.0 [facility] Erythrocytes [#/volume] in Blood by Automated count 4.70 10^6/uL 4. 50 - 6.30 [facility] Hemoglobin [Mass/volume] in Blood 13.9 g/dL 14.0 - 16.0 L [facility] Hematocrit [Volume Fraction] of Blood by Automated count 42.4 % 4 1.0 - 51.0 [facility] Erythrocyte mean corpuscular volume [Entitic volume] by Auto mated count 90.2 fL 80.0 - 94.0 [facility] Erythrocyte mean corpuscular hemoglobin [Entitic mass] by Automated count 29.6 pg 27.0 - 34.0 [facility] Erythrocyte mean corpuscular hemoglobin concentration [Mass/volume] by Automated count 32.8 g/dL 31.0 - 36.0 [facility] Erythrocyte distribution width [Ratio] by Automated count 12.4 % 11.5 - 14.8 [facility] Platelets [#/volume] in Blood by Automated count 192 10^3/uL 150 - 45 0 [facility] Platelet mean volume [Entitic volume] in Blood by Automated count 11.0 fL 7.4 - 10.4 H [facility] Neutrophils/100 leukocytes in Blood by Automated count 48.0 % 37. 0 - 80.0 [facility] Lymphocytes/100 leukocytes in Blood by Manual count 40.8 % 25.0 - 40.0 H [facility] Monocytes/100 leukocytes in Blood by Automated count 8.4 % 3.0 - 8.0 H [facility] Eosinophils/100 leukocytes in Blood by Automated count 2.2 % 0.0 - 7.0 [facility] Basophils/100 leukocytes in Blood by Automated count 0.4 % 0.0 - 2.0 [facility] %IG 0.2 % 0.0 - 0.0 H [facility] %NRBC 0.0 % 0.0 - 0.0 [facility] Neutrophils [#/volume] in Blood by Automated count 2.62 10^3/uL 2.00 - 6.90 [facility] Lymphocytes [#/volume] in Blood by Automated count 2.23 10^3/uL 0.60 - 3.40 [facility] Monocytes [#/volume] in Blood by Automated count 0.46 10^3/uL 0.00 - 0.90 [facility] Eosinophils [#/volume] in Blood by Automated count 0.12 10^3/uL 0.00 - 0.70 [facility] Basophils [#/volume] in Blood by Automated count 0.02 10^3/uL 0.00 - 0.20 [facility] #IG 0.01 10^3/uL 0.00 - 0.10 [facility] #NRBC 0.00 10^3/uL 0.00 - 0.00 [facility] MANUAL DIFF SEE BELOW [facility] ital Segmented neutrophils/100 leukocytes in Blood by Manual count 71 % 37 - 80 [facility] %LYMPH 24 % 25 - 40 [facility] %MONO 3 % 3 - 8 [facility] %EOS 2 % 0 - 7 [facility] RBC MORPH SEE BELOW [facility] al Anisocytosis [Presence] in Blood by Light microscopy 1+ LLUVIA L: NONE SEEN A [facility] { SICKLE CELL (NORMAL: NONE SEEN ) Platelet adequacy [Presence] in Blood by Light microscopy NORMAL NORMAL: NORMAL [facility] COMMENT: ID Date Data Source [id number] 12/19/2020 02:54:00 PM EST [facility] [address] [place] [address] PHONE: [phone] FAX: [phone] Name .................. : TOSIN MARVIN Cristino Acct Number.................. : [id number] ROOM. ................. : TR-02 MR Number ................... : [id number] Stay type ............. : E/R Discharge Date......... ... : Admit Date ......... : 12/19/20 Admit Phys .................... : SAMANTHA WADE Date of ....... : 1990 Family Phys ................... : NON STAFF Phone .................. : [phone] Age ................................ : 30 Film# .................. .:[id number] Sex ................................. : M Unsigned transcriptions are preliminary reports and do not represent a medical or legal document CT ABD & PELV W/[place] OR[place] W/[place] [id number] COMPLETE:12/19/20 11:02 [facility] 3982 Reason(s): sudden left [...] MD , 12/19/20 14:54, KGG Transcribe Initials: [facility], Transcribe Date: 12/19/20 13:05, Dictation Date: Page 1 of 2 [place] [address] PHONE: [phone] FAX: [phone] Name .................. : TOSIN Rivera Acct Number.................. : [id number] ROOM. ................. : TR MR Number ................... : [id number] Stay type ............. : E/R Discharge Date......... ... : Admit Date ......... : 12/19/20 Admit Phys .................... : SAMANTHA OLVERA Date of ....... : 1990 Family Phys ................... : NON STAFF Phone .................. : [phone] Age ................................ : 30 Film# .................. .:[id number] Sex ................................. : M Unsigned transcriptions are preliminary reports and do not represent a medical or legal document CT ABD & PELV W/[place] OR[place] W/[place] [id number] COMPLETE:12/19/20 11:02 [facility] 3982 Reason(s): sudden left flank pain Copy for: 010 EMERGENCY SRV Copy for: EMERGENCY DEPT via modem Copy for: 710 MED REC Page 2 of 2 Name Value Range Interpretation Code Description Data Marifer rce(s) Supporting Document(s) ID Date Data Source [id number] 12/19/2020 09:11:00 AM EST [facility] 1 OrderSheet [facility] Emergency Department [address] [place] [address] Phone #: ext- [phone] 12/19/2020 09:10 Patient: MARVIN LEAHY Sex: M : 1990 Age: 30yWEIGHT:90.7 kg (S) HEIGHT:68 inches (S) BMI:30.4ALLERGIES: SeafoodCHIEF COMPLAINT: flank painDIAGNOSIS: Ureteric stone, Renal colicLAB ORDERSOrder Description Priority Entered Acknowledged InitialedCBC w Diff STAT 09:41 12/19/2020 09:51 Letty, Turrin, Evelio Aster R.N. M.D.;CMP STAT 09:41 12/19/2020 09:51 Letty, Turrin, Evelio Aster R.N. M.D.;Lipase STAT 09:41 12/19/2020 09:51 Letty, Turrin, Evelio Aster R.N. M.D.;Urinalysis (Clean STAT 09:41 12/19/2020 09:51 Letty,Catch) Turrin, Evelio Aster R.N. M.D.;Lactic Acid STAT 09:41 12/19/2020 09:51 Letty, Turrin, Evelio Aster R.N. M.D.;DIAGNOSTIC STUDY ORDERSOrder Description Priority Entered Acknowledged InitialedCT ABD PEL W/O STAT 09:41 12/19/2020 10:09 Letty,Oral W/O IV Turrin, Evelio Aster R.N.Contrast M.D.;(Oxygen?(No))(IV?(Yes)) Reason for Study: sudden left flank painMEDICATION/IV/DRIP/FLUID ORDERSOrder Description Priority Entered Acknowledged InitialedToradol 15 mg IVP 09:41 12/19/2020 09:52 Letty,X1 dose: 15 mg Turrin, Evelio Aster R.N.(NOW x1) M.D.;Zofran 4 mg IVP X 1 09:41 12/19/2020 09:51 Letty, 2 OrderSheet [facility] Emergency Department [address] [place] [address] Phone #: ext- [phone] 12/19/2020 09:10 Patient: MARVIN LEAHY Sex: M : 1990 Age: 30ydose: 4 mg (NOW Turrin, Evelio Aster R.N.x1) M.D.;Ativan IVP 2 mg 09:41 12/19/2020 09:51 Letty(HIGH ALERT Evelio Luna R.NYangMEDICATION) Bharat;NS IV : Bolus 250 09:42 12/19/2020 10:05 Letty,mL, then 100 mL/hr Evelio Luna R.N. MSea;Flomax PO 0.4 mg 10:55 12/19/2020 11:28 Letty,(NOW x1, Do not Samantha, Evelio Jaramillossica R.N.crush or chew) Bharat;cefTRIAXone 10:56 12/19/2020 11:28 Letty,(1gm/50ml) IVPB Evelio Luna RYangNYang1000 mg with M.D.;Dextrose 50 mlspike bag (D5W)GENERAL ORDERSOrder Description Priority Entered Acknowledged InitialedNPO 09:41 12/19/2020 09:51 Samantha Saenz Riccardo Jessica R.N. M.D.;Saline Lock 09:41 12/19/2020 09:51 Samantha Saenz Riccardo Jessica R.N. M.D.;[Electronically signed by Aster Saenz R.N. (13:41 12/19/2020)][Electronically signed by Evelio Luna M.D. (13:49 12/19/2020)][Electronically locked by Aster Saenz R.N. (13:41 12/19/2020)] Name Value Range Interpretation Code Description Data Marifer rce(s) Supporting Document(s) ID Date Data Source [id number] 12/19/2020 09:11:00 AM EST [facility] 1 Medication Reconciliation Report [facility] Emergency Department [address] [place] [address] Phone #: ext- [phone] 12/19/2020 09:10 Patient: [...] the Emergency Department: 2 Medication Reconciliation Report [facility] Emergency Department [address] [place] [address] Phone #: ext- [phone] 12/19/2020 09:10 Patient: MARVIN LEAHY Sex: M : 1990 Age: 30yAtivan [IVP] IVP 2 mg, administered: 09:51 12/19/2020Zofran [IVP] IVP 4 mg, administered: 09:51 12/19/2020Toradol [IVP] IVP 15 mg, administered: 09:47 02/10/2021NS [IV] IV Fluids bolus 250 mL over 15 minute(s), administered: 10:05 12/19/2020Flomax [PO] PO 0.4 mg, administered: 11:28 1CEFTRIAXONE (1GM/50ML) [IVPB] IVPB bolus 0, then 1 gm 100 mL/hr, administered: 11:28 2020The following Medications were prescribed to the patient:hydrocodone 5 mg- acetaminophen 325 mg tablet Take 1 tablet four times a day as needed for pain for 3days -- Dispense 12 tablet. Refills: 0. Substitution permitted.[address] ; [place] [address]. .Flomax 0.4 mg capsule Take 1 capsule once a day for 7 days -- Dispense 7 capsule. Refills: 0.Substitution permitted.[address] ; [place] [address]. .cefdinir 300 mg capsule Take 1 capsule twice a day for 7 days -- Dispense 14 capsule. Refills: 0.Substitution permitted.[address] ; [place] [address]. .Zofran 4 mg tablet Take 1 tablet three times a day as needed for 4 days -- Dispense 12 tablet. Refills: 0.Substitution permitted.[address] ; [place] [address]. . -- Evelio Luna M.D. Name Value Range Interpretation Code Description Data Marifer rce(s) Supporting Document(s) ID Date Data Source [id number] 12/19/2020 09:11:00 AM EST [facility] 1 Medication Administration Record [facility] Emergency Department [address] [place] [address] Phone #: [phone]- [phone] 12/19/2020 09:10 Patient: MARVIN LEAHY Sex: M [...] NS IV : Bolus 250 mL, then 03659:05 12/19/2020 Dose: IV Fluids mL/hrAster Saenz R.N. [...] rce(s) Supporting Document(s) ID Date Data Source [id number] 12/19/2020 09:11:00 AM EST [facility] 1 General Instructions [facility] Emergency Department [address] [place] [address] Phone #: ext- [phone] 12/19/2020 09:10 Patient: [...] 0. Substitution permi tted. 2 General Instructions [facility] Emergency Department [address] [place] [address] Phone #: ext- [phone] 12/19/2020 09:10 Patient: MARVIN LEAHY Sex: M : 1990 Age: 30yPharmacy - [facility] [id number] ; [place] [address]. .Flomax 0.4 mg capsule Take 1 capsule once a day for 7 days -- Dispense 7 capsule. Refills: 0.Substitution permitted.Pharmacy - [facility] [address] ; [place] [address]. .cefdinir 300 mg capsule Take 1 capsule twice a day for 7 days -- Dispense 14 capsule. Refills: 0.Substitution permitted.[facility] [id number] ; [place] [address]. .Zofran 4 mg tablet Take 1 tablet three times a day as needed for 4 days -- Dispense 12 tablet. Refills: 0.Substitution permitted.[facility] [phone] ; [place] [address]. .Follow-up:Return to the emergency department as needed. Follow up with a lan analyst and urologist in three dayseven if well. [...] INFORMATIONGabriel Stone with Pain 3 General Instructions [facility] Emergency Department [address] [place] [address] Phone #: ext- [phone] 12/19/2020 09:10 Patient: [...] Various types of direct surgery through the [facility] 4 General Instructions [facility] Emergency Department [address] [place] [address] Phone #: ext- [phone] 12/19/2020 0 9:10 Patient: MARVIN LEAHY Sex: [...] kidney stones. Eat a 5 General Instructions [facility] Emergency Department [address] [place] [address] Phone #: ext- [phone] 12/19/2020 09:10 Patient: MARVIN LEAHY Sex: M : 1990 Age: 30y normal [...] new findings that may affect your care.Call [phone] if you have any of these: Weakness, [...] lots of blood clots 6 General Instructions [facility] Emergency Department [address] [place] [address] Phone #: ext- [phone] 12/19/2020 09:10 Patient: MARVIN LEAHY Sex: M : 1990 Age: 30y Foul-smelling or cloudy urine Unable to pass urine for 8 hours and increasing bladder pressure [id number] [employer] [place] [address]. All rights reserved. This information is not intended as asubstitute for professional medical care. Always follow your healthcare professional's instructions. You have been given the following additional information: Kidney Stone w/ Colic No strenuous activity until better. Return to work in three days.(Electronically signed by Evelio Luna M.D. 12/19/2020 13:49) Name Value Range Interpretation Code Description Data Marifer rce(s) Supporting Document(s) ID Date Data Source [id number] 12/19/2020 09:11:00 AM [facility] 1 Clinical Report - Nurses [facility] Emergency Department [address] [place] [address] Phone #: ext- [phone] 12/19/2020 09:10 Patient: MARVIN LEAHY Sex: M : 1990 Age: 30yTRIAGEArrived by EMS. Historian: patient.Chief Complaint: (left flank/ LLQ/ left groin pain).Onset. (0200). No fever, testicular pain or inguinal swelling. Able to void.EMS Treatment PROGRAM SUPPORT SPECIALIST:See EMS report. Medications given- ondansetron (fentanyl 50 [...] Saenz R.N. 2 Clinical Report - Nurses [facility] Emergency Department [address] [place] [address] Phone #: ext- [phone] 12/19/2020 09:10 Patient: [...] Skin is warm and dry. --09:18 12/19/20 Astre Saenz R.N.NURSING PROGRESS NOTESPatient gowned. Head of bed elevated. Reassurance given. Call light placed in reach. Bed placed in 3 Clinical Report - Nurses [facility] Emergency Department [address] [place] [address] Phone #: ext- [phone] 12/19/2020 09:10 Patient: MARVIN LEAHY Sex: M : 1990 Age: 30ylowest position. Brakes of bed on. Patient ready for evaluation. --09:17 12/19/20 Aster Saenz R.N.09:30 12/19/20. BP: 129/95. MAP: 106. HR: 69. RR: 16. O2 saturation: 96%. --09:34 12/19/20 Verónica Hernandez ER Wbzr559:47 12/19/2020 Toradol (Ketorolac Tromethamine) IVP 15 mg [...] 83. HR: 82. RR: 14. --09:59 12/19/20 [facility] 12/19/2020 Started bag #1 250 mL IV [...] Patient returned from CT by stretcher with medical imaging technologist. --10:50 12/19/20 Aster Saenz R.N.11:00 12/19/20. BP: 116/50. MAP: 72. HR: 96. RR: 14. O2 saturation: 100%. --11:00 12/19/20 [facility]111:28 12/19/2020 Flomax (Tamsulosin HCl) PO Capsules 0.4 [...] medication administration. 4 Clinical Report - Nurses [facility] [place] [address] Phone #: ext- [phone] 12/19/2020 09:10 Patient: MARVIN LEAHY Sex: M : 1990 Age: 30y Information reviewed with patient. Verbalizes understanding. --11:28 12/19/20 Aster Saenz R.N. 11:58 12/19/20. BP: 106/50. MAP: 68. HR: 72. RR: 16. O2 saturation: 99%. --11:59 12/19/20 [facility] 12:58 12/19/20. BP: 110/94. MAP: 99. HR: 82. RR: 16. O2 saturation: 100%. --12:58 12/19/20 [facility] Tech1 12:00 12/19/2020 CEFTRIAXONE (1GM/50ML) IVPB [...] Patient verbalized understanding. Written instructions provided in [place]. --13:41 12/19/20 Aster Saenz R.N.Locked/Released at 12/19/2020 13:41 by Aster Saenz R.N. Name Value Range Interpretation Code Description Data Marifer rce(s) Supporting Document(s) ID Date Data Source [id number] 12/19/2020 09:11:00 AM [facility] 1 Clinical Report - Physicians/Mid Levels [facility] Emergency Department [address] [place] [address] Phone #: ext- [phone] 12/19/2020 09:10 Patient: MARVIN LEAHY Sex: M [...] received Fentanyl 50 mcg IV per EMS PROGRAM SUPPORT SPECIALIST). No recent travel. Similar symptoms previously. None. [...] day. 2 Clinical Report - Physicians/Mid Levels [facility] Emergency Department [address] [place] [address] Phone #: ext- [phone] 12/19/2020 09:10 Patient: [...] results 3 Clinical Report - Physicians/Mid Levels [facility] Emergency Department [address] [place] [address] Phone #: ext- [phone] 12/19/2020 09:10 Patient: MARVIN LEAHY Sex: M [...] Male GFR Interprentation 20-49 yrs >60 mL/min Agvywk53-05 yrs >56 mL/min Normal 60-69 yrs >49 mL/min Normal 70-79yrs>42 mL/min Normal 80 and above >35 mL/min Normal Female GFRInterpretation 20-39 yrs >60 mL/min Normal 40-49 yrs >58 mL/min 4 Clinical Report - Physicians/Mid Levels [facility] Emergency Department [address] [place] [address] Phone #: ext- [phone] 12/19/2020 09:10 Patient: MARVIN LEAHY Sex: M : 1990 Age: 30y Normal 50-59 yrs >51 mL/min Normal 60-69 yrs >45 mL/min Normal 70-79 yrs >39 mL/min Normal 80 and above >32 mL/min Normal Lipase: (DERRICK: 12/19/2020 09:50) ( MsgRcvd 12/19/2020 10:18) Final results Test Result Flag Units (Reference) LIPASE 25 U/L (13 - 60) Urinalysis: (DERRICK: 12/19/2020 09:00) ( [facility] 12/19/2020 10:20) Final results Test Result Flag [...] NONE Lactic Acid: (DERRICK: 12/19/2020 09:50) ( [facility] 12/19/2020 10:05) Final results Test Result Flag Units (Reference) LACTIC ACID 1.4 MMOL/L (0.2 - 2.2) CT ABD PEL W/O Oral W/O IV Contrast: (DERRICK: 12/19/2020 09:41) ( [facility] 12/19/2020 11:02) In Progress CT ABD Reason(s): sudden left flank pain TRANSPORTATION: S IV? IV?(Yes) O2? Oxygen?(No) Ro.PROGRESS AND PROCEDURESCourse of Care: 09:38 12/19/20. Data Detail Level: Printer-Friendly View Extended ViewConfidential Drug Utilization ReportSearch Terms: marvin leahy, 1990earch Date: 12/19/2020 09:37:41 AMThe Drug Utilization Report below displays all of the controlled substance prescriptions, if any, that yourpatient has filled in the last twelve months. The information displayed on this report is compiled frompharmacy submissions to the Department, and accurately reflects the information as submitted by thepharmacies. 5 Clinical Report - Physicians/Mid Levels [facility] Emergency Department [address] [place] [address] Phone #: [phone]- [phone] 12/19/2020 09:10 Patient: MARVIN LEAHY Sex: M : 1990 Age: 30y This report was requested by: Evelio Luna Reference #: [id number] My Prescriptions Patient Name: Marvin LeahyBirth Date: 1990 Address: [address] [place], [place] [address]Ilr: Male Rx Written Rx Dispensed Drug Quantity Days Supply Prescriber Name Payment Method Dispenser 09/17/2020 09/17/2020 hydrocodone-acetaminophen 5-325 mg tablet 12 3 Evelio Luna MD [facility] [phone] * - Drugs marked with an asterisk [...] HEART 6 Clinical Report - Physicians/Mid Levels [facility] Emergency Department [address] [place] [address] Phone #: ext- [phone] 12/19/2020 09:10 Patient: [...] -- Dispense 12 tablet. Refills: 0. Substitution permitted.[address] ; [place] [address]. .Flomax 0.4 mg capsule Take 1 capsule once a day for 7 days -- Dispense 7 capsule. Refills: 0.Substitution permitted.[address] ; [place] [address]. .cefdinir 300 mg capsule Take 1 capsule twice a day for 7 days -- Dispense 14 capsule. Refills: 0.Substitution permitted.[address] ; [place] [address]. .Zofran 4 mg tablet Take 1 tablet three times a day as needed for 4 days -- Dispense 12 tablet. Refills: 0.Substitution permitted.[address] ; [place] [address]. . 7 Clinical Report - Physicians/Mid Levels [facility] Emergency Department [address] [place] [address] Phone #: ext- [phone] 12/19/2020 09:10 [id number] Sex: M : 1990 Age: 30y Follow-up: Return to the emergency department as needed. Follow up with a lan analyst and urologist in three days even if [...] Agrees to plan of care.(Electronically signed by Evelio Luna M.D. 12/19/2020 13:49) Name Value Range Interpretation Code Description Data [facility] Supporting Document(s) ID Date Data Source [id number] 12/19/2020 11:16:00 AM EST [facility] Name Value Range Interpretation Code Description Data [facility](s) Supporting Document(s) CBC W/AUTOMATED DIFF [facility] COMPLETE BLOOD COUNT Leukocytes [#/volume] in Blood by Automated count 5.6 10^3/uL 4.2 - 1 1.0 [facility] Erythrocytes [#/volume] in Blood by Automated count 4.55 10^6/uL 4. 50 - 6.30 [facility] Hemoglobin [Mass/volume] in Blood 13.6 g/dL 14.0 - 16.0 L [facility] Hematocrit [Volume Fraction] of Blood by Automated count 41.3 % 4 1.0 - 51.0 [facility] Erythrocyte mean corpuscular volume [Entitic volume] by Auto mated count 90.8 fL 80.0 - 94.0 [facility] Erythrocyte mean corpuscular hemoglobin [Entitic mass] by Automated count 29.9 pg 27.0 - 34.0 [facility] Erythrocyte mean corpuscular hemoglobin concentration [Mass/volume] by Automated count 32.9 g/dL 31.0 - 36.0 [facility] Erythrocyte distribution width [Ratio] by Automated count 12.7 % 11.5 - 14.8 [facility] Platelets [#/volume] in Blood by Automated count 175 10^3/uL 150 - 45 0 [facility] Platelet mean volume [Entitic volume] in Blood by Automated count 11.4 fL 7.4 - 10.4 H [facility] Neutrophils/100 leukocytes in Blood by Automated count 53.6 % 37. 0 - 80.0 [facility] Lymphocytes/100 leukocytes in Blood by Manual count 32.4 % 25.0 - 40.0 [facility] Monocytes/100 leukocytes in Blood by Automated count 11.8 % 3.0 - 8.0 H [facility] Eosinophils/100 leukocytes in Blood by Automated count 1.4 % 0.0 - 7.0 [facility] Basophils/100 leukocytes in Blood by Automated count 0.4 % 0.0 - 2.0 [facility] %IG 0.4 % 0.0 - 0.0 [facility] %[facility]BC 0.0 % 0.0 - 0.0 [facility] al Neutrophils [#/volume] in Blood by Automated count 3.00 10^3/uL 2.00 - 6.90 [facility] Lymphocytes [#/volume] in Blood by Automated count 1.81 10^3/uL 0.60 - 3.40 [facility] Monocytes [#/volume] in Blood by Automated count 0.66 10^3/uL 0.00 - 0.90 [facility] Eosinophils [#/volume] in Blood by Automated count 0.08 10^3/uL 0.00 - 0.70 [facility] Basophils [#/volume] in Blood by Automated count 0.02 10^3/uL 0.00 - 0.20 [facility] #IG 0.02 10^3/uL 0.00 - 0.10 [facility] #NRBC 0.00 10^3/uL 0.00 - 0.00 [facility] MANUAL DIFF NOT INDICATED [facility] RBC MORPH NOT INDICATED [facility] spital ID Date Data Source [id number] 12/19/2020 10:18:00 AM [facility] Name Value Range Interpretation Code Description Data Marifer rce(s) Supporting Document(s) Lipase [Enzymatic activity/volume] in Serum or Plasma 25 U/L 13 - 60 [facility] ID Date Data Source [id number] 12/19/2020 10:18:00 AM [facility] Name Value Range Interpretation Code Description Data Marifer rce(s) Supporting Document(s) COMPREHENSIVE METABOLIC PANEL [facility] COMPREHENSIVE METABOLIC PANEL Sodium [Moles/volume] in Serum or Plasma 138 mEq/L 134 - 153 [facility] Potassium [Moles/volume] in Serum or Plasma 3.8 mEq/L 3.6 - 5.0 [facility] Chloride [Moles/volume] in Serum or Plasma 103 mEq/L 98 - 107 [facility] Carbon dioxide, total [Moles/volume] in Serum or Plasma 25 MEQ/L 22 - 30 [facility] Glucose [Mass/volume] in Serum or Plasma 98 MG/DL 70 - 99 [facility] BUN 8 MG/DL 7 - 21 [facility] al Creatinine [Mass/volume] in Serum or Plasma 0.9 MG/DL 0.7 - 1.5 [facility] BUN/CREAT 9 8 - 27 [facility] Protein [Mass/volume] in Serum or Plasma 6.8 G/DL 6.3 - 8.2 [facility] Albumin [Mass/volume] in Serum or Plasma 4.3 G/DL 3.9 - 5.0 [facility] [facility] Globulin [Mass/volume] in Serum by calculation 2.5 GM/DL 2.4 - 3.2 [facility] A/G RATIO 1.7 0.8 - 2.0 [facility] Calcium [Mass/volume] in Serum or Plasma 9.6 MG/DL 8.4 - 10.2 [facility] Bilirubin.total [Mass/volume] in Serum or Plasma <0.7 MG/DL 0.2 - 1.3 [facility] Alkaline phosphatase [Enzymatic activity/volume] in Serum or Plasma 67 U/L 38 - 126 [facility] Aspartate aminotransferase [Enzymatic activity/volume] in Serum or Plasma 27 U/L 5 - 40 [facility] Alanine aminotransferase [Enzymatic activity/volume] in Seru m or Plasma 29 U/L 7 - 56 [facility] Anion gap 3 in Serum or Plasma 10.0 mmol/L 8.0 - 16.0 [facility] AGE 30 yrs [facility] al NON-AA GFR >60 mL/min [facility] ital AFR AMER GFR >60 mL/min [facility] Ho spital Male GFR In [...] >32 mL/min Normal ID Date Data Source [id number] 12/19/2020 10:05:00 AM [facility] Name Value Range Interpretation Code Description Data Marifer rce(s) Supporting Document(s) Lactate [Moles/volume] in Serum or Plasma 1.4 MMOL/L 0.2 - 2.2 [facility] ID Date Data Source [id number] 12/19/2020 10:20:00 AM [facility] Name Value Range Interpretation Code Description Data Marifer rce(s) Supporting Document(s) [facility]IS [facility]ALYS[facility] SOURCE R [facility] al COLOR brown NORMAL: Yellow [facility] H ospital CLARITY turbid NORMAL: Clear [facility] Ho spital Specific gravity of Urine by Test strip 1.015 1.001 - 1.030 [facility] pH 8 5 - 9 [facility] al Glucose [Mass/volume] in Urine by Test strip NORM NORMAL: Negat xiomara [facility] Bilirubin.total [Presence] in Urine by Test strip NEG NORMAL: Negative [facility] Ketones [Presence] in Urine by Test strip NEG NORMAL: Negative [facility] Protein [Mass/volume] in Urine by Test strip 100 NORMAL: Negat xiomara A [facility] Nitrite [Presence] in Urine by Test strip NEG NORMAL: Negative [facility] BLOOD 250 NORMAL: Negative [facility] Leukocyte esterase [Presence] in Urine by Test strip 25 LLUVIA L: Negative [facility] Urobilinogen [Mass/volume] in Urine by Test strip NOR less fidelia n 1.0 mg/dL [facility] MICROSCOPIC See Below [facility] ital Erythrocytes [#/volume] in Urine by Test strip TNTC NORMAL: NON E SEEN A [facility] EPITHELIAL FEW NORMAL: NONE SEEN [facility] Bacteria [Presence] in Urine sediment by Light microscopy Tr du NORMAL: NONE SEEN [facility] ID Date Data Source [id number] 12/03/2020 01:03:00 AM EST [facility] [address] [place] [address] CONSULTATIONNAME: TOSIN Rivera ROOM[facility]DATE OF : 1990 MR#: [id number] PHYS: POP Paulino DATE: 12/01/20DATE OF CONSULTATION: 12/02/20CHIEF COMPLAINT: This 30-year-old white male presented with episode of syncope.HISTORY OF PRESENT ILLNESS:This patient went to [email or web address] to get food and after he got [...] Clear with no rales or rhonchi. [address] [place] [address] CONSULTATIONNAME: TOSIN Rivera ROOM#: 101-1DATE OF : 1990 MR#: [id number] PHYS: POP Tran DATE: 12/01/20ABDOMEN: Soft and [...] rce(s) Supporting Document(s) ID Date Data Source [id number] 12/12/2020 12:00:00 AM EST [facility] Jairon Christiansen MD Patient Name: MARVIN LEAHY[address] Date of : 1990[place] [address]- Date of Exam: 12/12/2020#: Fax: [phone] EXAM: CT THORAX WITH CONTRASTCLINICAL INFORMATION: Hilar lymphadenopathy.COMPARISON: CT abdomen and pelvis [facility] 08/15/2020.Low dose [address] scanning of the chest was obtained using 3 mmincrements after the administration of intravenous contrast andreconstructed in both coronal and sagittal scan planes. 75 cc of Eetqurs053 was administered intravenously.The lungs are free of [...] and no suspicious lung nodule.Accredited by the [employer] in [place].ROSY Alva/Maryam you for referring MARVIN LEAHY to our office. Electronically Signed - RANDOLPH ALVAREZ MD 12/14/20 18:04 Name Value Range Interpretation Code Description Data Marifer rce(s) Supporting Document(s) ID Date Data Source [id number] 12/05/2020 09:23:00 AM EST [facility] [address] [place] [address] PHONE: [phone] FAX: [phone] Name .................. : TOSIN Rivera Acct Number.................. : [id number] ROOM. ................. : 101-1 MR Number ................... : [id number] Stay type ............. : O/P Discharge Date......... ... : 12/03/20 Admit Date ......... : 12/01/20 Admit Phys .................... : AMARJIT Date of ....... : 1990 Family Phys ................... : NON STAFF Phone .................. : [phone] Age ................................ : 30 Film# .................. .:[id number] Sex ................................. : M Unsigned transcriptions are preliminary reports and do not represent a medical or legal document CAROTID [id number] COMPLETE:12/01/20 08:09 [facility] 2817 (REASON FOR PROCEDURE :SYNCOPE CAROTID [...] rce(s) Supporting Document(s) ID Date Data Source [id number] 12/03/2020 12:19:00 [place] [address] PHONE: [phone] FAX: [phone] Name .................. : TOSIN Rivera Acct Number.................. : [id number] ROOM. ................. : TR-08 Number ................... : [id number] Stay type ............. : E/R Discharge Date......... ... : Admit Date ......... : 12/01/20 Admit Phys .................... : LETICIA Burleson Date of ....... : 1990 Family Phys ................... : NON STAFF Phone .................. : [phone] Age ................................ : 30 Film# .................. .:[id number] Sex ................................. : M Unsigned transcriptions are preliminary reports and do not represent a medical or legal document CHEST 1 VIEW [id number] COMPLETE:12/01/20 15:46 2810 Reason(s): syncope CHEST X-RAY: [...] Transcribe Initials: DZ , Transcribe Date: 12/01/20 18:46, Dictation Date: Copy for: [facility] via fax Copy for: EMERGENCY DEPT via [facility] Copy for: [address] [place] [address] REC Page 1 of 1 Name Value Range Interpretation Code Description Data Marifer rce(s) Supporting Document(s) ID Date Data Source [id number] 12/03/2020 12:18:00 PM [facility] [address] [place] [address] PHONE: [phone] FAX: [phone] Name .................. : LIDIAINDIGO Rivera Acct Number.................. : [id number] ROOM. ................. : TR-08 MR Number ................... : [id number] Stay type ............. : E/R Discharge Date......... ... : Admit Date ......... : 12/01/20 Admit Phys .................... : LETICIA Burleson Date of ....... : 1990 Family Phys ................... : NON STAFF Phone .................. : [phone] Age ................................ : 30 Film# .................. .:[id number] Sex ................................. : M Unsigned transcriptions are preliminary reports and do not represent a medical or legal document CT HEAD W/O CONTRAST 65009 COMPLETE:12/01/20 15:46 2809 Reason(s): syncope CT SCAN [...] for: EMERGENCY DEPT via modem Copy for: [address] [place] [address] REC Page 1 of 1 Name Value Range Interpretation Code Description Data Marifer rce(s) Supporting Document(s) ID Date Data Source [id number] 12/03/2020 12:18:00 PM EST [facility] [address] [place] [address] PHONE: [phone] FAX: [phone] Name .................. : TOSIN Rivera Acct Number.................. : [id number] ROOM. ................. : TR-08 MR Number ................... : [id number] Stay type ............. : E/R Discharge Date......... ... : Admit Date ......... : 12/01/20 Admit Phys .................... : LETICIA Burleson Date of ....... : 1990 Family Phys ................... : NON STAFF Phone .................. : [phone] Age ................................ : 30 Film# .................. .:[id number] Sex ................................. : M Unsigned transcriptions are preliminary reports and do not represent a medical or legal document DOPPLER UNILATERAL VENOUS 79982 COMPLETE:12/01/20 17:32 2812 Reason(s): Has known DVT [...] MD , 12/03/20 12:18, AML Transcribe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 2.6 3.4 - 4.9 L [facility] LDL/HDL 1.52 1.00 - 3.55 [facility] ital CVE RISK CHOL/HDL LDL/HDLMEN: 1/2 AVERAGE 3.43 1.00 AVERAGE 4.97 3.55 2X AVERAGE 9.55 6.25 3X AVERAGE 23.99 7.99WOMEN: 1/2 AVERAGE 3.27 1.47 AVERAGE 4.44 3.22 2X AVERAGE 7.05 5.03 3X AVERAGE 11.04 6.14 ID Date Data Source [id number] 12/01/2020 06:17:00 PM [facility] Name Value Range Interpretation Code Description Data Marifer rce(s) Supporting Document(s) Fibrin D-dimer FEU [Mass/volume] in Platelet poor plasma 0.34 ug /mL 0.27 - 0.50 [facility] ID Date Data Source [id number] 12/01/2020 05:58:00 PM [facility] Name Value Range Interpretation Code Description Data Marifer rce(s) Supporting Document(s) Magnesium [Mass/volume] in Serum or Plasma 2.0 MG/DL 1.7 - 2.2 [facility] ID Date Data Source [id number] 12/01/2020 05:58:00 PM [facility] Value Range Interpretation Code Description Data Marifer rce(s) Supporting Document(s) Thyrotropin [Units/volume] in Serum or Plasma by Detec tion limit <= 0.05 mIU/L 1.15 uIU/mL 0.47 - 5.01 [facility] ID Date Data Source [id number] 12/01/2020 05:58:00 PM EST [facility] Name Value Range Interpretation Code Description Data Marifer rce(s) Supporting Document(s) Lipase [Enzymatic activity/volume] in Serum or Plasma 33 U/L 13 - 60 [facility] ID Date Data Source [id number] 12/01/2020 05:58:00 PM EST [facility] Name Value Range Interpretation Code Description Data Marifer [facility](s) Supporting Document(s) COMPREHENSIVE METABOLIC PANEL [facility] COMPREHENSIVE METABOLIC PANEL Sodium [Moles/volume] in Serum or Plasma 140 mEq/L 134 - 153 [facility] Potassium [Moles/volume] in Serum or Plasma 3.8 mEq/L 3.6 - 5.0 [facility] Chloride [Moles/volume] in Serum or Plasma 104 mEq/L 98 - 107 [facility] Carbon dioxide, total [Moles/volume] in Serum or Plasma 28 MEQ/L 22 - 30 [facility] Glucose [Mass/volume] in Serum or Plasma 89 MG/DL 70 - 99 [facility] BUN 12 MG/DL 7 - 21 [facility] al Creatinine [Mass/volume] in Serum or Plasma 0.8 MG/DL 0.7 - 1.5 [facility] BUN/CREAT 15 8 - 27 [facility] Protein [Mass/volume] in Serum or Plasma 7.0 G/DL 6.3 - 8.2 [facility] Albumin [Mass/volume] in Serum or Plasma 4.6 G/DL 3.9 - 5.0 [facility] Globulin [Mass/volume] in Serum by calculation 2.4 GM/DL 2.4 - 3.2 [facility] A/G RATIO 1.9 0.8 - 2.0 [facility] Calcium [Mass/volume] in Serum or Plasma 9.4 MG/DL 8.4 - 10.2 [facility] Bilirubin.total [Mass/volume] in Serum or Plasma <0.7 MG/DL 0.2 - 1.3 [facility] Alkaline phosphatase [Enzymatic activity/volume] in Serum or Plasma 64 U/L 38 - 126 [facility] Aspartate aminotransferase [Enzymatic activity/volume] in Serum or Plasma 28 U/L 5 - 40 [facility] Alanine aminotransferase [Enzymatic activity/volume] in Seru m or Plasma 23 U/L 7 - 56 [facility] Anion gap 3 in Serum or Plasma 8.0 mmol/L 8.0 - 16.0 [facility] AGE 30 yrs [facility] NON-AA GFR >60 mL/min [facility] ital AFR AMER GFR >60 mL/min [facility] Male GFR In [...] >32 mL/min Normal ID Date Data Source [id number] 12/01/2020 05:45:00 PM EST [facility] Name Value Range Interpretation Code Description Data Marifer rce(s) Supporting Document(s) TROPONIN T <0.01 NG/ML 0.00 - 0.10 [facility] ospital TROPONIN T0.1 ng/ml Recommended as the c linical threshold value forTroponin T. ID Date Data Source [id number] 12/01/2020 05:42:00 PM [facility] Name Value Range Interpretation Code Description Data Marifer rce(s) Supporting Document(s) Prothrombin time (PT) 14.0 SECONDS 11.0 - 15.5 [facility] INR in Platelet poor plasma by Coagulation assay 1.03 0.93 - 1. 23 [facility] aPTT in Blood by Coagulation assay 33.1 SECONDS 24.8 - 36.7 [facility] \\BLDo\\INR INTERPRETATION\\BLDx\\ Therapeutic range for Coumadin and related oral anticoagulants. - International Normalized Ratio (INR): 2.0 - 3.0 for Venous Thrombosis, Pulmonary Embolus, Tissue heart valves, Acute ND Atrial Fibrillation, Valvular heart disease and recurrent Systemic Embolism. - International Normalized Ratio (INR): 2.5 - 3.5 for Mechanical Prosthetic valve. ID Date Data Source [id number] 12/01/2020 05:37:00 PM EST [facility] Name Value Range Interpretation Code Description Data Marifer rce(s) Supporting Document(s) CBC W/AUTOMATED DIFF [facility] COMPLETE BLOOD COUNT Leukocytes [#/volume] in Blood by Automated count 7.4 10^3/uL 4.2 - 1 1.0 [facility] Erythrocytes [#/volume] in Blood by Automated count 4.53 10^6/uL 4. 50 - 6.30 [facility] Hemoglobin [Mass/volume] in Blood 13.5 g/dL 14.0 - 16.0 L [facility] Hematocrit [Volume Fraction] of Blood by Automated count 39.5 % 4 1.0 - 51.0 L [facility] Erythrocyte mean corpuscular volume [Entitic volume] by Auto mated count 87.2 fL 80.0 - 94.0 [facility] Erythrocyte mean corpuscular hemoglobin [Entitic mass] by Automated count 29.8 pg 27.0 - 34.0 [facility] Erythrocyte mean corpuscular hemoglobin concentration [Mass/volume] by Automated count 34.2 g/dL 31.0 - 36.0 [facility] Erythrocyte distribution width [Ratio] by Automated count 12.3 % 11.5 - 14.8 [facility] Platelets [#/volume] in Blood by Automated count 193 10^3/uL 150 - 45 0 [facility] Platelet mean volume [Entitic volume] in Blood by Automated count 10.5 fL 7.4 - 10.4 H [facility] Neutrophils/100 leukocytes in Blood by Automated count 51.6 % 37. 0 - 80.0 [facility] Lymphocytes/100 leukocytes in Blood by Manual count 39.6 % 25.0 - 40.0 [facility] Monocytes/100 leukocytes in Blood by Automated count 6.9 % 3.0 - 8.0 [facility] Eosinophils/100 leukocytes in Blood by Automated count 1.2 % 0.0 - 7.0 [facility] Basophils/100 leukocytes in Blood by Automated count 0.4 % 0.0 - 2.0 [facility] %IG 0.3 % 0.0 - 0.0 H [facility] %NRBC 0.0 % 0.0 - 0.0 [facility] Neutrophils [#/volume] in Blood by Automated count 3.81 10^3/uL 2.00 - 6.90 [facility] Lymphocytes [#/volume] in Blood by Automated count 2.93 10^3/uL 0.60 - 3.40 [facility] Monocytes [#/volume] in Blood by Automated count 0.51 10^3/uL 0.00 - 0.90 [facility] Eosinophils [#/volume] in Blood by Automated count 0.09 10^3/uL 0.00 - 0.70 [facility] Basophils [#/volume] in Blood by Automated count 0.03 10^3/uL 0.00 - 0.20 [facility] #IG 0.02 10^3/uL 0.00 - 0.10 [facility] #NRBC 0.00 10^3/uL 0.00 - 0.00 [facility] MANUAL DIFF NOT INDICATED [facility] RBC MORPH NOT INDICATED [facility] ID Date Data Source [id number] 11/22/2020 11:51:27 AM EST [facility] Name Value Range Interpretation Code Description Data Marifer rce(s) Supporting Document(s) Progress Note [facility] [id number] [id number] [file] [id number]= ID Date Data Source [id number] 11/20/2020 08:56:00 [place] [address] PHONE: [phone] FAX: [phone] Name .................. : TOSIN WONG Cristino Acct Number.................. : [id number] ROOM. ................. : TR-08 Number ................... : [id number] Stay type ............. : E/R Discharge Date......... ... : 11/19/20 Admit Date ......... : 11/19/20 Admit Phys .................... : SAMANTHA OLVERA Date of ....... : 1990 Family Phys ................... : NON STAFF Phone .................. : [phone] Age ................................ : 30 Film# .................. .:[id number] Sex ................................. : M Unsigned transcriptions are preliminary reports and do not represent a medical or legal document MRI LUMBAR SPINE W/O CONTRAST [id number] COMPLETE:11/19/20 15:25 INGRID 1972 Reason(s): Lower Back [...] By Marlon Decker MD , 11/20/20 08:56, [facility] Transcribe Initials: DZ , Transcribe Date: 11/20/20 01:55, Dictation Date: Copy for: TIFFANIE GONZALEZ via fax Copy for: EMERGENCY DEPT via [facility] Copy for: 710 MED REC DISCHARGED Page 1 of 1 Name Value Range Interpretation Code Description Data Marifer rce(s) Supporting Document(s) ID Date Data Source [id number] 11/19/2020 02:16:00 PM EST [facility] 1 OrderSheet [facility] Emergency Department [address] [place] [address] Phone #: ext- [phone] 11/19/2020 13:54 Patient: MARVIN LEAHY Sex: M : 1990 Age: 30yWEIGHT:92.9 kg (S) HEIGHT:72 inches (S) BMI:27.8ALLERGIES: SeafoodCHIEF COMPLAINT: back pain, chronic back painDIAGNOSIS: BackacheLAB ORDERSOrder Description Priority Entered Acknowledged InitialedUrinalysis (Clean STAT 14:28 11/19/2020 14:28 Lilo,Ervin) Jennifer Nagy R.N. R.NYang; Verbal order per; Larry Moreno PADIAGNOSTIC STUDY ORDERSOrder Description Priority Entered Acknowledged InitialedMRI Spine Lumbar STAT 14:36 11/19/2020 14:41 BurnhamW/O Cont Larry Moreno ccna, Esvin ER(Oxygen?(No)) (No) PA; Tech1 Reason for [...] by Larry Moreno (21:18 11/19/2020)] 2 OrderSheet [facility] Emergency Department [address] [place] [address] Phone #: ext- [phone] 11/19/2020 13:54 Patient: MARVIN LEAHY Sex: M : 1990 Age: 30y[Electronically locked by Troy Ann RN (15:51 11/19/2020)] Name Value Range Interpretation Code Description Data Marifer rce(s) Supporting Document(s) ID Date Data Source [id number] 11/19/2020 02:16:00 PM EST [facility] 1 Medication Reconciliation Report [facility] Emergency Department [address] [place] [address] Phone #: ext- [phone] 11/19/2020 13:54 Patient: [...] the Emergency Department: 2 Medication Reconciliation Report [facility] Emergency Department [address] [place] [address] Phone #: ext- [phone] 11/19/2020 13:54 Patient: MARVIN LEAHY Sex: M : 1990 Age: 30yPrednisone [PO] PO 60 mg, administered: 15:25 11/19/2020Toradol [IM] IM 60 mg, administered: 15:25 11/19/2020Gabapentin [PO] PO 100 mg, administered: 15:28 11/19/2020The following Medications were prescribed to the patient:Medrol (Duyen) 4 mg tablets in a dose pack Take 1 tablet as directed for 6 days -- Dispense 1 pack.Refills: 0. Substitution permitted.[facility] - [address] ; [place] [address]. FaxNumber: .gabapentin 100 mg capsule Take 1 capsule three times a day for 30 days -- Dispense 90 capsule.Refills: 0. Substitution permitted.[facility] - [address] ; [place] [address]. .methocarbamol 500 mg tablet Take 1 tablet three times a day for 10 days -- Dispense 30 tablet. Refills:0. Substitution permitted.[facility] - [address] ; [place] [address]. . -- PERLA Cisse Name Value Range Interpretation Code Description Data Marifer rce(s) Supporting Document(s) ID Date Data Source [id number] 11/19/2020 02:16:00 PM [facility] 1 Medication Administration Record [facility] Emergency Department [address] [place] [address] Phone #: ext- [phone] 11/19/2020 13:54 Patient: MARVIN LEAHY Sex: M : 1990 Age: 30yWeight: 92.9 kgHeight/Length: 72 inBMI: 27.8ALLERGIES: Seafood Date/Time Medication Administered Medication OrderedGiven TORADOL [IM] (KETOROLAC Toradol IM 60 mg15:25 11/19/2020 TRO AKILAH)Jennifer Nagy R.N. Dose: 60 mg IMGiven GABAPENTIN [PO] Gabapentin PO 100 mg15:28 11/19/2020 Dose: 100 mg Capsules Jennifer Andrews R.N.Given PREDNISONE [PO] predniSONE PO 60 mg15:11/19/2020 Dose: 60 mg Tablets Jennifer Andrews R.N. Name Value Range Interpretation Code Description Data Marifer rce(s) Supporting Document(s) ID Date Data Source [id number] 11/19/2020 02:16:00 PM EST [facility] 1 General Instructions [facility] Emergency Department [address] [place] [address] Phone #: ext- [phone] 11/19/2020 13:54 Patient: MARVIN LEAHY Sex: M [...] 300mg 3x a week. Prescription Medications: Medrol (Duyen) 4 mg tablets in a dose pack Take 1 tablet as directed for 6 days -- Dispense 1 pack. Refills: 0. Substitution permitted. [facility] [address] [facility] ; [place] [address]. . gabapentin 100 mg capsule Take 1 capsule three times a day for 30 days -- Dispense 90 capsule. Refills: 0. Substitution permitted. Pharmacy - [facility] [employer] [employer] [address] [facility] ; [place] [address]. . 2 General Instructions [facility] Emergency Department [address] [place] [address] Phone #: ext- [phone] 11/19/2020 13:54 Patient: MARVIN LEAHY Sex: M : 1990 Age: 30ymethocarbamol 500 mg tablet Take 1 tablet three times a day for 10 days -- Dispense 30 tablet. Refills:0. Substitution permitted.Pharmacy - [facility] - [address] [facility] ; [place] [address]. .Follow-up:Follow up with your doctor tomorrow. Call for an appointment. Reason for referral: evaluation, treatmentand refer to pain management and physical therapy. Summary of care provided to patient.Understanding of the discharge instructions verbalized by patient. ADDITIONAL INFORMATIONBack Pain (Acute or Chronic) 3 [facility] Emergency Department [address] [place] [address] Phone #: ext- [phone] 11/19/2020 13:54 Patient: [...] this home care advice: 4 General Instructions [facility] Emergency Department [address] [place] [address] Phone #: ext- [phone] 11/19/2020 13:54 Patient: [...] or are takingother medicines. You may use nmxq-soj-uylydng medicine as directed on the bottle to [...] may affect your care 5 General Instructions [facility] Emergency Department [address] [place] [address] Phone #: ext- [phone] 11/19/2020 13:54 Patient: MARVIN LEAHY Sex: M [...] Numbness in the groin or genital area [id number] [employer]. [address] [place] [address], [place] [address]. All rights reserved. This information is not [...] rce(s) Supporting Document(s) ID Date Data Source [id number] 11/19/2020 02:16:00 PM EST [facility] 1 Clinical Report - Nurses [facility] Emergency Department [address] [place] [address] Phone #: ext- [phone] 11/19/2020 13:54 Patient: MARVIN LEAHY Sex: M : 1990 Age: 30yTRIAGEArrived by private vehicle. Historian: patient. Unaccompanied. ( complains of lower back pain, painworse since last night).Acuity: LEVEL 4.Chief Complaint: BACK PAIN.Alert.Onset. (1 year). The patient has had trouble walking. No history of recent trauma.Pre-hospital notification of patient arrival was not received.Treatment PROGRAM SUPPORT SPECIALIST:(took something but does not know name might [...] Rowland R.N. 2 Clinical Report - Nurses [facility] Emergency Department [address] [place] [address] Phone #: [phone] ext- [phone] 11/19/2020 13:54 Patient: MARVIN LEAHY Sex: M [...] the [place] 3 Clinical Report - Nurses [facility] Emergency Department [address] [place] [address] Phone #: ext- [phone] 11/19/2020 13:54 Patient: MARVIN LEAHY Sex: M : 1990 Age: 30y Infectious disease exposure: No infectious disease exposure. Patient is not a known carrier of tuberculosis, hepatitis, HIV, MRSA or VRE. Patient is not a known carrier of CRE. --14:10 11/19/20 Michelle Rowland R.N. Interventions Identification band on patient. To treatment room. --14:11/19/20 Michelle Rowland R.N.NURSING PROGRESS NOTESPatient gowned. Reassurance [...] Patient transported to MRI by wheelchair with medical imaging technologist. --14:43 11/19/20 AshtonAlyssa meraz Patient returned from MRI by wheelchair with mask and medical imaging technologist. --15:20 11/19/20 Jennifer Nagy R.N. 15:25 [...] / DISCHARGE 4 Clinical Report - Nurses [facility] Emergency Department [address] [place] [address] Phone #: ext- [phone] 11/19/2020 13:54 Patient: MARVIN LEAHY Sex: M : 1990 Age: 30y 15:48 11/19/20. BP: 121/68. HR: 76. RR: 16. O2 saturation: 100%. Temp: 96.8 F. Pain level now 04/18. --15:48 11/19/20 [facility] Tech, Esvin, Tech Condition at departure: improved and stable. Discharge instructions provided and reviewed with the patient. Reviewed medication(s) side effects, precautions, dosing and course information. Reviewed referral to a primary care physician. Activity restrictions (rest) reviewed. Patient verbalized understanding. Written instructions provided in [place]. The patient was discharged by the physician assistant professor of forestry. He was discharged home and accompanied by store clerk. He left ambulatory and via private vehicle. Lot Boss driving. --15:51 11/19/20 Troy Ann RN.Locked/Released at 11/19/2020 15:51 by Troy Ann RN Name Value Range Interpretation Code Description Data Marifer rce(s) Supporting Document(s) ID Date Data Source [id number] 11/19/2020 02:16:00 PM EST [facility] 1 Clinical Report - Physicians/Mid Levels [facility] Emergency Department [address] [place] [address] Phone #: ext- [phone] 11/19/2020 13:54 Patient: MARVIN LEAHY Sex: M [...] week. 2 Clinical Report - Physicians/Mid Levels [facility] Emergency Department [address] [place] [address] Phone #: ext- [phone] 11/19/2020 13:54 Patient: [...] otherwise follow up with his PCM at [facility] Patient counseled in person regarding the [...] deficit. 3 Clinical Report - Physicians/Mid Levels [facility] Emergency Department [address] [place] [address] Phone #: ext- [phone] 11/19/2020 13:54 Patient: MARVIN LEAHY Sex: M [...] 300mg 3x a week. Prescription Medications: Medrol (Duyen) 4 mg tablets in a dose pack Take 1 tablet as directed for 6 days -- Dispense 1 pack. Refills: 0. Substitution permitted. Pharmacy - [facility] - [address] [facility] ; [place] [address]. . gabapentin 100 mg capsule Take 1 capsule three times a day for 30 days -- Dispense 90 capsule. Refills: 0. Substitution permitted. [facility] - [address] [facility] ; [place] [address]. . methocarbamol 500 mg tablet Take 1 tablet three times a day for 10 days -- Dispense 30 tablet. Refills: 0. Substitution permitted. [facility] - [address] [facility] ; [place] [address]. . Follow-up: 4 Clinical Report - Physicians/Mid Levels [facility] Emergency Department [address] [place] [address] Phone #: ext- [phone] 11/19/2020 13:54 Patient: [...] rce(s) Supporting Document(s) ID Date Data Source [id number] 11/19/2020 02:54:00 PM EST [facility] Name Value Range Interpretation Code Description Data Marifer rce(s) Supporting Document(s) UR[facility]YSIS [facility] yellow NORMAL: Yellow [facility] CLARITY cloudy NORMAL: Clear [facility] Specific gravity of Urine by Test strip 1.015 1.001 - 1.030 [facility] pH 8 5 - 9 [facility] al Glucose [Mass/volume] in Urine by Test strip NORM NORMAL: Negat [facility] Bilirubin.total [Presence] in Urine by Test strip NEG NORMAL: Negative [facility] Ketones [Presence] in Urine by Test strip NEG NORMAL: Negative [facility] Protein [Mass/volume] in Urine by Test strip NEG NORMAL: Negat [facility] Nitrite [Presence] in Urine by Test strip NEG NORMAL: Negative [facility] BLOOD 50 NORMAL: Negative [facility] Leukocyte esterase [Presence] in Urine by Test strip NEG LLUVIA L: Negative [facility] Urobilinogen [Mass/volume] in Urine by Test strip NOR less fidelia n 1.0 mg/dL [facility] MICROSCOPIC See Below [facility] ital Erythrocytes [#/volume] in Urine by Test strip 3 - 5 NORMAL: NON E SEEN [facility] EPITHELIAL FEW NORMAL: NONE SEEN [facility] Bacteria [Presence] in Urine sediment by Light microscopy 1+ SMALL NORMAL: NONE SEEN [facility] Amorphous sediment [Presence] in Urine sediment by Light marleni roscopy 3+ NORMAL: NONE SEEN [facility] ID Date Data Source [id number] 11/14/2020 11:18:00 AM EST [facility] ([facility]) Name Value Range Interpretation Code Description Data Marifer rce(s) Supporting Document(s) Color of Urine Laboratory test result [facility] ([facility]) Appearance of Urine Laboratory test result [facility] ([facility]) Spec [place] 1.010 [facility] ([facility]) pH of Urine by Test strip 8 [facility] NT ([facility]) Leukocytes Laboratory test result [facility] ([facility]) Nitrate [Presence] in Urine Laboratory test result [facility] ([facility]) Protein [Presence] in Urine by Test strip Laboratory test result [facility] ([facility]) Inhouse Glucose Laboratory test result [facility] ([facility]) Ketones [Presence] in Urine by Test strip Laboratory test result [facility] ([facility]) Urobilinogen Laboratory test result [facility] ([facility]) Bilirubin.total [Presence] in Urine by Test strip Laboratory test res ult [facility] ([facility]) Blood type and Indirect antibody screen panel - Blood Laboratory test result [facility] ([facility]) ID Date Data Source [id number] 10/23/2020 10:27:00 AM EST [facility] [address] [place] [address] PHONE: [phone] FAX: [phone] Name .................. : TOSIN WONG Cristino Acct Number.................. : [id number] ROOM. ................. : TR-08 Number ................... : [id number] Stay type ............. : E/R Discharge Date......... ... : 10/19/20 Admit Date ......... : 10/19/20 Admit Phys .................... : CHAO CANDE Date of ....... : 1990 Family Phys ................... : NON STAFF Phone .................. : [phone] Age ................................ : 30 Film# .................. .:[id number] Sex ................................. : M Unsigned transcriptions are preliminary reports and do not represent a medical or legal document CT HEAD W/O CONTRAST [id number] COMPLETE:10/19/20 19:17 NELLY 24 Reason(s): Syncope CT [...] MD , 10/23/20 10:27, KGG Transcribe Initials: GAYATHRI , Transcribe Date: 10/20/20 00:55, Dictation Date: Copy for: TIFFANIE GONZALEZ via fax Copy for: CHAO Hall via fax Copy for: EMERGENCY DEPT via modem Copy for: 710 MED REC DISCHARGED Page 1 of 1 Name Value Range Interpretation Code Description Data Marifer rce(s) Supporting Document(s) ID Date Data Source [id number] 10/22/2020 09:17:00 [place] [address] PHONE: [phone] FAX: [phone] Name .................. : TOSIN WONG Cristino Acct Number.................. : [id number] ROOM. ................. : TR-08 MR Number ................... : [id number] Stay type ............. : E/R Discharge Date......... ... : 10/19/20 Admit Date ......... : 10/19/20 Admit Phys .................... : CHAO CANDE Date of ....... : 1990 Family Phys ................... : NON STAFF Phone .................. : [phone] Age ................................ : 30 Film# .................. .:[id number] Sex ................................. : M Unsigned transcriptions are preliminary reports and do not represent a medical or legal document CHEST 2 VIEWS [id number] COMPLETE:10/19/20 19:17 NELLY 23 Reason(s): Syncope CHEST X-RAY: 2-VIEWS INDICATION: Syncope. COMPARISON: None. FINDINGS: The cardiac and mediastinal silhouettes appear normal and the lungs are clear. The bones and soft tissues are normal. The upper abdomen is unremarkable. IMPRESSION: No acute disease identifiable. Electronically Reviewed and Signed By Nimco Bradley MD , 10/22/20 09:17, KG Transcribe Initials: GAYATHRI , Transcribe Date: 10/20/20 00:57, Dictation Date: Copy for: TIFFANIE GONZALEZ via fax Copy for: CHAO Hall via fax Copy for: EMERGENCY DEPT via mode Copy for: 710 MED REC DISCHARGED Page 1 of 1 Name Value Range Interpretation Code Description Data Marifer rce(s) Supporting Document(s) ID Date Data Source [id number] 10/20/2020 09:17:00 AM [facility] [address] [place] [address] RESPIRATORY CARE REPORT ==== ---------NAME------- NUMBER SEX AGE ADMIT DISC. XRAY# F/C RHONDA Rivera [id number] M 30 10/19/20 10/19/20 [id number] SB4 E/R DATE OF : 1990 M/R# [id number] #: [id number] TR-08 LOCATION: EMERGENCY DEPT EKG [id number] COMP LETE:10/19/20 14:52 [facility] [address] PHYSICIAN: CHAO MORENO Name Value Range Interpretation Code Description Data Marifer rce(s) Supporting Document(s) ID Date Data Source [id number] 10/19/2020 10:32:00 AM EST [facility] 1 OrderSheet [facility] Emergency Department [address] [place] [address] Phone #: ext- [phone] 10/19/2020 10:31 Patient: [...] STAT 10:56 10/19/2020 11:58 Luz Harley OrderSheet [facility] Emergency Department [address] [place] [address] Phone #: ext- [phone] 10/19/2020 10:31 -------- Patient: MARVIN LEAHY Sex: M : 1990 Age: 30y(Oxygen?(No)) Larry DUNCAN; Reason for Study: SyncopeCT Head W/O Cont STAT 10:56 10/19/2020 11:58 Cricket(Oxygen?(No)) Larry DUNCAN; Reason for Study: SyncopeMEDICATION/IV/DRIP/FLUID ORDERSOrder Description Priority Entered Acknowledged InitialedMorphine IVP 4 mg 10:57 10/19/2020 Cancelled: Physician Order 11:30 Larry(HIGH ALERT Larry Moreno PAMEDICATION) PERLA;Marianne ODT PO 8 10:57 10/19/2020 11:34 Cricket,mg Larry DUNCAN;Morphine IM 4 mg 11:30 10/19/2020 11:34 Cricket(HIGH ALERT Larry Hall R.N.ME DICATION) PA;GENERAL ORDERSOrder Description Priority Entered Acknowledged InitialedBlood Pressure 10:57 10/19/2020 11:00 Cricket,Monitor Larry DUNCAN;Kitchen Clerk 10:57 10/19/2020 11:00 Cricket(continuous) Larry DUNCAN;EKG 10:57 10/19/2020 11:00 Larry Harley R.N.;Pulse oximeter 10:57 10/19/2020 11:00 Cricket(Continuous) Larry DUNCAN;Vitals 10:57 10/19/2020 11:00 Larry Harley R.N. PA;[Electronically signed by Rafael Harley R.N. (13:51 10/19/2020)][Electronically signed by Larry Moreno (21:52 10/19/2020)][Electronically locked by Rafael Harley R.N. (13:51 10/19/2020)] Name Value Range Interpretation Code Description Data Marifer rce(s) Supporting Document(s) ID Date Data Source [id number] 10/19/2020 10:32:00 AM EST [facility] 1 Medication Reconciliation Report [facility] Emergency Department [address] [place] [address] Phone #: bor- [phone] 10/19/2020 10:31 Patient: MARVIN LEAHY Sex: M [...] 90 capsule.Refills: 0. Substitution permitted.Pharmacy - [facility] [address] [facility] ; [place] [address]. .Medrol (Duyen) 4 mg tablets in a dose pack Take 1 tablet as directed for 6 days -- Dispense 1 pack. 2 Medication Reconciliation Report [facility] Emergency Department [address] [place] [address] Phone #: ext- [phone] 10/19/2020 10:31 -- Patient: MARVIN LEAHY Sex: M : 1990 Age: 30yRefills: 0. Substitution permitted.Pharmacy - [facility] - [address] [facility] ; [place] [address]. . -- PERLA Cisse Name Value Range Interpretation Code Description Data Marifer rce(s) Supporting Document(s) ID Date Data Source [id number] 10/19/2020 10:32:00 AM [facility] 1 Medication Administration Record [facility] Emergency Department [address] [place] [address] Phone #: ext- [phone] 10/19/2020 10:31 Patient: [...] rce(s) Supporting Document(s) ID Date Data Source [id number] 10/19/2020 10:32:00 AM [facility] 1 General Instructions [facility] Emergency Department [address] [place] [address] Phone #: ext- [phone] 10/19/2020 10:31 Patient: [...] Dispense 90 capsule.Refills: 0. Substitution permitted.Pharmacy - [facility] - [address] [facility] ; [place] [address]. .Medrol (Duyen) 4 mg tablets in a dose pack Take 1 tablet as directed for 6 days -- Dispense 1 pack.Refills: 0. Substitution permitted.Pharmacy - [facility] - [address] [facility] ; [place] [address]. .Understanding of the discharge instructions verbalized by patient.Follow-up with: Dylan Shi MD, Cardiology, , [address] [place] [address] Follow up. Call for the next available appointment. Reason for referral: evaluation, treatment and seeyour PCM for referral to Cardiology for further evaluation. Summary of care provided to patient.Follow-up with: Benito Willett M.D., Urology, , [address] [place] [address], [facility] Follow up. Call for the next available appointment. Reason for referral: evaluation, treatment and seeyour PCM for referral to Urology, evaluate Hematuria and Micurition Syncope. Summary of care providedto patient. ADDITIONAL INFORMATIONFainting: Vagal Reaction 2 General Instructions [facility] Emergency Department [address] [place] [address] Phone #: ext- [phone] 10/19/2020 10:31 Patient: MARVIN LEAHY Sex: M [...] very rapidly, very slowly, or irregularly (palpitations) [phone] [employer] [place] [address]. All rights reserved. This information is not intended as asubstitute for professional medical care. Always follow your healthcare professional's instructions.High Blood Pressure, To Be Confirmed, No Treatment 3 General Instructions [facility] Emergency Department [address] [place] [address] Phone #: ext- [phone] 10/19/2020 10:31 Patient: MARVIN LEAHY Sex: M [...] monitors at most pharmacies. 4 General Instructions [facility] Emergency Department [address] [place] [address] Phone #: ext- [phone] 10/19/2020 10:31 [id number] Sex[facility] M : 1990 Age: 30yThe [place] [employer] Association advises the following guidelines for [...] attack, heart failure, kidney disease, and stroke.Call [id number] [phone] if you have any of these: Blood pressure of 180/120 or higher Chest pain or shortness of breath Weakness of an arm or leg or one side of the face Problems speaking or seeingWhen to get medical advice 5 General Instructions [facility] Emergency Department [address] [place] [address] Phone #: [phone]- [phone] 10/19/2020 10:31 Patient: MARVIN LEAHY Sex: M : 1990 Age: 30yCall your healthcare provider right away if any of these occur: Severe headache Throbbing or rushing sound in the ears Nosebleed Sudden severe pain in your belly (abdomen) Extreme drowsiness, confusion, or fainting Dizziness or dizziness with spinning feeling (vertigo) [employer]. [address] [place] [address]. All rights reserved. This information is not intended as asubstitute for professional medical care. Always follow your healthcare prof essional's instructions.Back Pain (Acute or Chronic) 6 General Instructions [facility] Emergency Department [address] [place] [address] Phone #: ext- [phone] 10/19/2020 10:31 Patient: [...] this home care advice: 7 General Instructions [facility] Emergency Department [address] [place] [address] Phone #: ext- [phone] 10/19/2020 10:31 Patient: [...] or are takingother medicines. You may use btbd-ril-krerdok medicine as directed on the bottle to [...] may affect your care 8 General Instructions [facility] Emergency Department [address] [place] [address] Phone #: ext- [phone] 10/19/2020 10:31 Patient: [...] Numbness in the groin or genital area [employer]. [address] [place] [address]. All rights reserved. This information is not intended as asubstitute for professional medical care. Always follow your healthcare professional's instructions.Blood in the Urine 9 General Instructions [facility] Emergency Department [address] [place] [address] Phone #: ext- [phone] 10/19/2020 10:31 Patient: [...] using these medicines.Follow-up care 10 General Instructions [facility] Emergency Department [address] [place] [address] Phone #: ext- [phone] 10/19/2020 10:31 Patient: [...] nose or gums or easy bruising [employer]. [address] [place] [address], [place] [address]. All rights reserved. This information is not [...] rce(s) Supporting Document(s) ID Date Data Source [id number] 10/19/2020 10:32:00 AM [facility] 1 Clinical Report - Nurses [facility] Emergency Department [address] [place] [address] Phone #: ext- [phone] 10/19/2020 10:31 Patient: [...] killing yourself?". 2 Clinical Report - Nurses [facility] Emergency Department [address] [place] [address] Phone #: ext- [phone] 10/19/2020 10:31 Patient: [...] 10/19/20 Rafael Harley R.N. Patient returned from [place] by wheelchair with tech. --11:59 10/19/20 Rafael Harley R.N. Reassurance given to the patient. --11:59 10/19/20 Rafael Harley R.N. Bed placed in lowest position. Brakes of bed on. --13:50 10/19/20 Rafael Harley R.N.DISPOSITION / DISCHARGE No learning barriers present. Discharge instructions provided and reviewed with the patient. The patient was discharged by the physician assistant professor of forestry. He was discharged home. He left ambulatory and via private vehicle. Patient driving. --13:50 10/19/20 Rafael Harley R.N. 13:50 10/19/20. BP: 124/66. MAP: 85. HR: 62. RR: 18. O2 saturation: deferred. Temp: deferred. Pain level now: 12/19. --13:50 10/19/20 Rafael Harley R.N. Departure time: 13:51 10/19/2020. --13:51 10/19/20 Rafael Harley R.N. 3 Clinical Report - Nurses [facility] Emergency Department [address] [place] [address] Phone #: ext- [phone] 10/19/2020 10:31 Patient: MARVIN LEHAY Sex: M : 1990 Age: 30yLocked/Released at 10/19/2020 13:51 by Rafael Harley R.N. Name Value Range Interpretation Code Description Data Marifer rce(s) Supporting Document(s) ID Date Data Source [id number] 10/19/2020 10:32:00 AM EST [facility] 1 Clinical Report - Physicians/Mid Levels [facility] Emergency Department [address] [place] [address] Phone #: ext- [phone] 10/19/2020 10:31 Patient: [...] use. 2 Clinical Report - Physicians/Mid Levels [facility] Emergency Department [address] [place] [address] Phone #: ext- [phone] 10/19/2020 10:31 Patient: MARVIN LEAHY Sex: M : 1990 Age: 30yPHYSICAL EXAMVital Signs: 10/19/2020 10:34 BP: 142/85. MAP: 104. HR: 77. RR: 16. O2 saturation: 100%. Temp: 98.2F. Pain level now: 810. Have been reviewed as abnormal. Hypertensive. Oxygen [...] 0.20) 3 Clinical Report - Physicians/Mid Levels [facility] Emergency Department [address] [place] [address] Phone #: ext- [phone] 10/19/2020 10:31 Patient: MARVIN LEAHY Cristino Sex: M : 1990 Age: 30y #IG [...] Male GFR Interprentation 20-49 yrs >60 mL/min Enylzk52-05 yrs >56 mL/min Normal 60-69 yrs >49 mL/min Normal 70-79yrs>42 mL/min Normal 80 and above >35 mL/min Normal Female GFRInterpretation 20-39 yrs >60 mL/min Normal 40-49 yrs >58 mL/minNormal 50-59 yrs >51 mL/min Normal 60-69 yrs >45 mL/min Zmpdnb44-90 yrs >39 mL/min Normal 80 and above >32 mL/min NormalPT/PTT: (DERRICK: 10/19/2020 11:41) ( [facility] 10/19/2020 11:57) Final results Test Result Flag Units (Reference) PROTIME 14.6 SECONDS (11.0 - 15.5) INR 1.08 (0.93 - 1.23) PTT 28.1 SECONDS (24.8 - 36.7) \\BLDo\\INR INTERPRETATION\\BLDx\\ Therapeutic range for Coumadin andrelated oral anticoagulants. -International Normalized Ratio (INR): 2.0 - 3.0 for VenousThrombosis, Pulmonary Embolus, Tissue heart valves, Acute ND Atrial Fibrillation, Valvular heart diseaseand recurrent Systemic Embolism. -International Normalized Ratio (INR): 2.5 - 3.5 forMechanical Prosthetic valve.Lactic Acid: (DERRICK: 10/19/2020 11:41) ( [facility] Final results Test Result Flag Units (Reference) LACTIC ACID 1.0 MMOL/L (0.2 - 2.2)Lipase: (DERRICK: 10/19/2020 11:41) ( [facility] 10/19/2020 12:33) Final results Test Result Flag Units (Reference) LIPASE 35 U/L (13 - 60) 4 Clinical Report - Physicians/Mid Levels [facility] Emergency Department [address] [place] [address] Phone #: ext- [phone] 10/19/2020 10:31 Patient: MARVIN LEAHY Sex: M : 1990 Age: 30y Magnesium: (DERRICK: 10/19/2020 11:41) ( [facility] 10/19/2020 12:33) Final results Test Result Flag Units (Reference) MAGNESIUM 2.1 MG/DL (1.7 - 2.2) Troponin-T: (DERRICK: 10/19/2020 11:41) ( [facility] 10/19/2020 13:24) Final results Test Result Flag Units (Reference) TROPONIN T <0.01 NG/ML (0.00 - 0.10) TROPONIN T0.1 ng/ml Recommended as the clinical threshold value forTroponin T. TSH: (DERRICK: 10/19/2020 11:41) ( [facility] 10/19/2020 12:33) Final results Test Result Flag Units (Reference) TSH 1.61 uIU/mL (0.47 - 5.01) Urinalysis: (DERRICK: 10/19/2020 11:40) ( [facility] 10/19/2020 12:29) Final results Test Result Flag [...] hematuria 5 Clinical Report - Physicians/Mid Levels [facility] Emergency Department [address] [place] [address] Phone #: ext- [phone] 10/19/2020 10:31 Patient: [...] Refills: 0. Substitution permitted. Pharmacy - [facility] - [id number] [facility] ; [place] [address]. . Medrol (Duyen) 4 mg tablets in a dose pack Take 1 tablet as directed for 6 days -- Dispense 1 pack. Refills: 0. Substitution permitted. Pharmacy - [facility] - [phone] [facility] ; [place] [address]. FaxNumber: [phone]. Understanding of the discharge instructions verbalized by patient. Follow- up with: Dylan Shi MD, Cardiology, , [address] [place] [address], [address] Follow up. Call for the next available appointment. Reason for referral: evaluation, treatment and see your PCM for referral to Cardiology for further evaluation. Summary of care provided to patient. Follow-up with: Benito Willett M.D., Urology, , [address] [place] [address], [address] Follow up. Call for the next available appointment. Reason for referral: evaluation, treatment and see your PCM for referral to Urology, evaluate Hematuria and Micurition Syncope. Summary of care provided to patient.(Electronically signed by PERLA Cisse 10/19/2020 21:52) Name Value Range Interpretation Code Description Data Marifer rce(s) Supporting Document(s) ID Date Data Source [id number] 10/19/2020 01:24:00 PM EST [facility] Name Value Range Interpretation Code Description Data Marifer rce(s) Supporting Document(s) TROPONIN T <0.01 NG/ML 0.00 - 0.10 [facility] ospital TROPONIN T0.1 ng/ml Recommended as the c linical threshold value forTroponin T. ID Date Data Source [id number] 10/19/2020 12:33:00 PM [facility] Name Value Range Interpretation Code Description Data [facility] Supporting Document(s) COMPREHENSIVE METABOLIC PANEL [facility] COMPREHENSIVE METABOLIC PANEL Sodium [Moles/volume] in Serum or Plasma 140 mEq/L 134 - 153 [facility] Potassium [Moles/volume] in Serum or Plasma 4.1 mEq/L 3.6 - 5.0 [facility] Chloride [Moles/volume] in Serum or Plasma 104 mEq/L 98 - 107 [facility] Carbon dioxide, total [Moles/volume] in Serum or Plasma 33 MEQ/L 22 - 30 H [facility] Glucose [Mass/volume] in Serum or Plasma 66 MG/DL 65 - 110 [facility] BUN 13 MG/DL 7 - 21 [facility] Creatinine [Mass/volume] in Serum or Plasma 1.0 MG/DL 0.7 - 1.5 [facility] BUN/CREAT 13 8 - 27 [facility] al Protein [Mass/volume] in Serum or Plasma 8.0 G/DL 6.3 - 8.2 [facility] Albumin [Mass/volume] in Serum or Plasma 4.4 G/DL 3.9 - 5.0 [facility] Globulin [Mass/volume] in Serum by calculation 3.6 GM/DL 2.4 - 3.2 H [facility] A/G RATIO 1.2 0.8 - 2.0 [facility] al Calcium [Mass/volume] in Serum or Plasma 10.0 MG/DL 8.4 - 10.2 [facility] Bilirubin.total [Mass/volume] in Serum or Plasma <0.7 MG/DL 0.2 - 1.3 [facility] Alkaline phosphatase [Enzymatic activity/volume] in Serum or Plasma 63 U/L 38 - 126 [facility] Aspartate aminotransferase [Enzymatic activity/volume] in Serum or Plasma 28 U/L 5 - 40 [facility] Alanine aminotransferase [Enzymatic activity/volume] in Seru m or Plasma 30 U/L 7 - 56 [facility] Anion gap 3 in Serum or Plasma 3.0 mmol/L 8.0 - 16.0 L [facility] AGE 30 yrs [facility] al NON-AA GFR >60 mL/min [facility] ital AFR AMER GFR >60 mL/min [facility] Ho spital Male GFR In [...] >32 mL/min Normal ID Date Data Source [id number] 10/19/2020 12:33:00 PM [facility] Name Value Range Interpretation Code Description Data Marifer rce(s) Supporting Document(s) Thyrotropin [Units/volume] in Serum or Plasma by Detec tion limit <= 0.05 mIU/L 1.61 uIU/mL 0.47 - 5.01 [facility] ID Date Data Source [id number] 10/19/2020 12:33:00 PM [facility] Name Value Range Interpretation Code Description Data Marifer rce(s) Supporting Document(s) Magnesium [Mass/volume] in Serum or Plasma 2.1 MG/DL 1.7 - 2.2 [facility] ID Date Data Source [id number] 10/19/2020 12:33:00 PM EST [facility] Name Value Range Interpretation Code Description Data Marifer rce(s) Supporting Document(s) Lipase [Enzymatic activity/volume] in Serum or Plasma 35 U/L 13 - 60 [facility] ID Date Data Source [id number] 10/19/2020 11:57:00 AM EST [facility] Name Value Range Interpretation Code Description Data Marifer rce(s) Supporting Document(s) Prothrombin time (PT) 14.6 SECONDS 11.0 - 15.5 [facility] INR in Platelet poor plasma by Coagulation assay 1.08 0.93 - 1. 23 [facility] aPTT in Blood by Coagulation assay 28.1 SECONDS 24.8 - 36.7 [facility] \\BLDo\\INR INTERPRETATION\\BLDx\\ Therapeutic range for Coumadin and related oral anticoagulants. - International Normalized Ratio (INR): 2.0 - 3.0 for Venous Thrombosis, Pulmonary Embolus, Tissue heart valves, Acute ND Atrial Fibrillation, Valvular heart disease and recurrent Systemic Embolism. - International Normalized Ratio (INR): 2.5 - 3.5 for Mechanical Prosthetic valve. ID Date Data Source [id number] 10/19/2020 11:56:00 AM [facility] Name Value Range Interpretation Code Description Data [facility](s) Supporting Document(s) CBC W/AUTOMATED DIFF [facility] COMPLETE BLOOD COUNT Leukocytes [#/volume] in Blood by Automated count 4.6 10^3/uL 4.2 - 1 1.0 [facility] Erythrocytes [#/volume] in Blood by Automated count 4.94 10^6/uL 4. 50 - 6.30 [facility] Hemoglobin [Mass/volume] in Blood 14.6 g/dL 14.0 - 16.0 [facility] Hematocrit [Volume Fraction] of Blood by Automated count 43.6 % 4 1.0 - 51.0 [facility] Erythrocyte mean corpuscular volume [Entitic volume] by Auto mated count 88.3 fL 80.0 - 94.0 [facility] Erythrocyte mean corpuscular hemoglobin [Entitic mass] by Automated count 29.6 pg 27.0 - 34.0 [facility] Erythrocyte mean corpuscular hemoglobin concentration [Mass/volume] by Automated count 33.5 g/dL 31.0 - 36.0 [facility] Erythrocyte distribution width [Ratio] by Automated count 12.2 % 11.5 - 14.8 [facility] Platelets [#/volume] in Blood by Automated count 196 10^3/uL 150 - 45 0 [facility] Platelet mean volume [Entitic volume] in Blood by Automated count 10.4 fL 7.4 - 10.4 [facility] Neutrophils/100 leukocytes in Blood by Automated count 46.2 % 37. 0 - 80.0 [facility] Lymphocytes/100 leukocytes in Blood by Manual count 41.5 % 25.0 - 40.0 H [facility] Monocytes/100 leukocytes in Blood by Automated count 9.2 % 3.0 - 8.0 H [facility] Eosinophils/100 leukocytes in Blood by Automated count 2.0 % 0.0 - 7.0 [facility] Basophils/100 leukocytes in Blood by Automated count 0.7 % 0.0 - 2.0 [facility] %IG 0.4 % 0.0 - 0.0 H [facility] al %NRBC 0.0 % 0.0 - 0.0 [facility] al Neutrophils [#/volume] in Blood by Automated count 2.12 10^3/uL 2.00 - 6.90 [facility] Lymphocytes [#/volume] in Blood by Automated count 1.90 10^3/uL 0.60 - 3.40 [facility] Monocytes [#/volume] in Blood by Automated count 0.42 10^3/uL 0.00 - 0.90 [facility] Eosinophils [#/volume] in Blood by Automated count 0.09 10^3/uL 0.00 - 0.70 [facility] Basophils [#/volume] in Blood by Automated count 0.03 10^3/uL 0.00 - 0.20 [facility] #IG 0.02 10^3/uL 0.00 - 0.10 [facility]spital #NRBC 0.00 10^3/uL 0.00 - 0.00 [facility] MANUAL DIFF NOT INDICATED [facility] RBC MORPH NOT INDICATED [facility] ID Date Data Source [id number] 10/19/2020 11:52:00 AM [facility] Name Value Range Interpretation Code Description Data Marifer rce(s) Supporting Document(s) Lactate [Moles/volume] in Serum or Plasma 1.0 MMOL/L 0.2 - 2.2 [facility] ID Date Data Source [id number] 10/19/2020 12:26:00 PM EST [facility] Name Value Range Interpretation Code Description Data Marifer rce(s) Supporting Document(s) URINALYSIS [facility] albin URINALYSIS SOURCE R [facility] COLOR yellow NORMAL: Yellow [facility] CLARITY clear NORMAL: Clear [facility] sp[facility] Specific gravity of Urine by Test strip 1.020 1.001 - 1.030 [facility] pH 7 5 - 9 [facility] Glucose [Mass/volume] in Urine by Test strip NORM NORMAL: Negat [facility] Bilirubin.total [Presence] in Urine by Test strip NEG NORMAL: Negative [facility] Ketones [Presence] in Urine by Test strip NEG NORMAL: Negative [facility] Protein [Mass/volume] in Urine by Test strip NEG NORMAL: Negat [facility] Nitrite [Presence] in Urine by Test strip NEG NORMAL: Negative [facility] BLOOD 10 NORMAL: Negative A [facility] Leukocyte esterase [Presence] in Urine by Test strip NEG LLUVIA L: Negative [facility] Urobilinogen [Mass/volume] in Urine by Test strip NOR less fidelia n 1.0 mg/dL [facility] MICROSCOPIC See Below [facility] ital Erythrocytes [#/volume] in Urine by Test strip 1 - 3 NORMAL: NON E SEEN [facility] ID Date Data Source [id number] 09/18/2020 08:57:00 AM [facility] [address] [place] [address] PHONE: [phone] FAX: [phone] Name .................. : TOSIN Rivera Acct Number.................. : [id number] ROOM. ................. : TR-07 MR Number ................... : [id number] Stay type ............. : E/R Discharge Date......... ... : Admit Date ......... : 09/17/20 Admit Phys .................... : SAMANTHA OLVERA Date of ....... : 1990 Family Phys ................... : Phone .................. : [phone] Age ................................ : 30 Film# .................. .:[id number] Sex ................................. : M Unsigned transcriptions are preliminary reports and do not represent a medical or legal document CT LUMBAR SP W/O CONT [id number] COMPLETE:09/17/20 09:16 09528 Reason(s): exacerbation of left lower back pain, [...] Dictation Date: Copy for: EMERGENCY DEPT via modem Copy for: [address] [place] [address] PHONE: [phone] FAX: [phone] Name .................. : TOSIN WONG Cristino Acct Number.................. : [id number] ROOM. ................. : TR-07 MR Number ................... : [id number] Stay type ............. : E/R Discharge Date......... ... : Admit Date ......... : 09/17/20 Admit Phys .................... : SAMANTHA OLVERA Date of ....... : 1990 Family Phys ................... : Phone .................. : [phone] Age ................................ : 30 Film# .................. .:[id number] Sex ................................. : M Unsigned transcriptions are preliminary reports and do not represent a medical or legal document CT LUMBAR SP W/O CONT [id number] COMPLETE:09/17/20 09:16 49951 Reason(s): exacerbation of left lower back pain, soft tissue swelling, spas DISCHARGED Page 2 of 2 Name Value Range Interpretation Code Description Data Marifer rce(s) Supporting Document(s) ID Date Data Source [id number] 09/17/2020 08:46:00 AM EST [facility] 1 OrderSheet [facility] Emergency Department [address] [place] [address] Phone #: [phone]- [phone] 09/17/2020 08:44 Patient: MARVIN LEAHY Sex: M : 1990 Age: 30yWEIGHT:88.4 kg (S) HEIGHT:68 inches (S) BMI:29.6ALLERGIES: SeafoodCHIEF COMPLAINT: chronic back pain, back painDIAGNOSIS: Lumbar sprainLAB ORDERSOrder Description Priority Entered Acknowledged InitialedDIAGNOSTIC STUDY ORDERSOrder Description Priority Entered Acknowledged InitialedCT LUMBAR SP STAT 09:16 09/17/2020 09:19 Sal Frank/O CONT Evelio Luna RN(Oxygen?(No)) Bharat;(IV?(No)) NOTES: soft tissue enhancement, windows, please Reason for Study: e xacerbation of left lower back pain, soft tissue swelling, spasm?MEDICATION/IV/DRIP/FLUID ORDERSOrder Description Priority Entered Acknowledged InitialedMorphine IM 4 mg 09:16 09/17/2020 09:24 Velma Frank(HIGH ALERT Evelio Luna RNMEDICATION) Bharat;Lidocaine Patch 09:16 09/17/2020 09:24 Oma Frankal (Patch 5 %) Evelio Luna RN1 Patch (On for 12 M.D.;hours, off for 12hours.)GENERAL ORDERSOrder Description Priority Entered Acknowledged Initialed[Electronically signed by Evelio Luna M.D. (12:45 09/17/2020)][Electronically signed by Tom English R.N. (14:16 09/17/2020)][Electronically locked by Tom English R.N. (14:16 09/17/2020)] Name Value Range Interpretation Code Description Data Marifer rce(s) Supporting Document(s) ID Date Data Source [id number] 09/17/2020 08:46:00 AM EST [facility] 1 Medication Reconciliation Report [facility] Emergency Department [address] [place] [address] Phone #: [phone]- [phone] 09/17/2020 08:44 Patient: MARVIN LEAHY Sex: M [...] tablet. Refills: 0. Substitution permi tted.Pharmacy - [facility] [id number] ; [place] [id number]. . -- Evelio Luna M.D. Name Value Range Interpretation Code Description Data Marifer [facility](s) Supporting Document(s) ID Date Data Source [id number] 09/17/2020 08:46:00 AM [place] [address] Medication Administration Record [facility] Emergency Department [address] [place] [address] Phone #: ext- [phone] 09/17/2020 08:44 Patient: MARVIN LEAHY Sex: M [...] rce(s) Supporting Document(s) ID Date Data Source [id number] 09/17/2020 08:46:00 AM [facility] 1 General Instructions [facility] Emergency Department [address] [place] [address] Phone #: ext- [phone] 09/17/2020 08:44 Patient: MARVIN LEAHY Sex: M [...] 12 tablet. Refills: 0. Substitution permitted.Pharmacy - [facility] [address] ; [place] [address]. .Follow-up:Return to the emergency department as needed. [...] to plan of care. 2 General Instructions [facility] Emergency Department [address] [place] [address] Phone #: ext- [phone] 09/17/2020 08:44 Patient: [...] can cause muscle spasm. 3 General Instructions [facility] Emergency Department [address] [place] [address] Phone #: ext- [phone] 09/17/2020 08:44 Patient: [...] and pain. Wrap the 4 General Instructions [facility] Emergency Department [address] [place] [address] Phone #: ext- [phone] 09/17/2020 08:44 Patient: [...] or are takingother medicines. You may use [id number] medicine as directed on the bottle to [...] any new findingsthat may affect your care.Call [phone] if any of the following occur: Trouble breathing Confusion Very drowsy or trouble awakening Fainting or loss of consciousness 5 General Instructions [facility] Emergency Department [address] [place] [address] Phone #: [phone]- [phone] 09/17/2020 08:44 Patient: MARVIN LEAHY Sex: M : 1990 Age: 30y Rapid or very slow heart rate Loss of bowel or bladder controlWhen to seek medical adviceCall your healthcare provider right away if any of these occur: Pain becomes worse or spreads to your legs Weakness or numbness in one or both legs Numbness in the groin or genital area [phone] [employer] [place] [address]. All rights reserved. This information is not intended as asubstitute for professional medical care. Always follow your healthcare professional's instructions. You have been given the following additional information: Back Pain (Acute or Chronic) Limit lifting until well. No strenuous activity until better. Return to work in three days.(Electronically signed by Evelio Luna M.D. 09/17/2020 12:45) Name Value Range Interpretation Code Description Data Marifer rce(s) Supporting Document(s) ID Date Data Source [id number] 09/17/2020 08:46:00 AM EST [facility] 1 Clinical Report - Nurses [facility] Emergency Department [address] [place] [address] Phone #: ext- [phone] 09/17/2020 08:44 Patient: [...] leg pain. 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 --09:21 09/17/20 Evelio Luna M.D.The following entry was modified by Evelio Luna M.D., 09:21 09/17/20 2 Clinical Report - Nurses [facility] Emergency Department [address] [place] [address] Phone #: ext- [phone] 09/17/2020 08:44 Patient: [...] pedal pulses 3 Clinical Report - Nurses [facility] Emergency Department [address] [place] [address] Phone #: ext- [phone] 09/17/2020 08:44 Patient: [...] Patient transported to radiology by wheelchair with medical imaging technologist. --09:35 09/17/20 Jennifer Nagy R.N. Patient returned by wheelchair with medical imaging technologist. --09:45 09/17/20 Jennifer Nagy R.N. 09:58 [...] Nagy R.N. 4 Clinical Report - Nurses [facility] Emergency Department [address] [place] [address] Phone #: ext- [phone] 09/17/2020 08:44 [id number] Sex[facility] M : 1990 Age: 30y 09:59 09/17/20. BP: 133/72. MAP: 92. HR: 66. RR: 16. O2 saturation: 100%. --09:59 09/17/20 [facility] [employer], [employer] 11:03 09/17/20. Reassurance given. Reassessment acuity: LEVEL [...] RR: 16. O2 saturation: 100%. --11:06 09/17/20 [facility] [place] [facility], [facility] [employer].DISPOSITION / DISCHARGE 12:07 09/17/20. BP: 129/84. MAP: 99. HR: 57. RR: 16. O2 saturation: 99%. Temp: 98.1 F. Pain level now: 01/16. --12:07 09/17/20 [facility] Tech1 12:12 09/17/20. Departure time: 12:18 09/17/2020. [...] Patient verbalized understanding. Written instructions provided in [place]. The patient was discharged by the physician. He was discharged home. He left ambulatory and via private vehicle. Patient driving. --12:18 09/17/20 Tom English R.N. Reviewed rest and ice instructions. Activity restrictions (rest) reviewed. --12:20 09/17/20 Tom English R.N.Locked/Released at 09/17/2020 14:16 by Tom English R.N. Name Value Range Interpretation Code Description Data Marifer rce(s) Supporting Document(s) ID Date Data Source [id number] 09/17/2020 08:46:00 AM EST [facility] 1 Clinical Report - Physicians/Mid Levels [facility] Emergency Department [address] [place] [address] Phone #: ext- [phone] 09/17/2020 08:44 Patient: [...] day. Allergies: 2 Clinical Report - Physicians/[facility] Emergency Department [address] [place] [address] Phone #: ext- [phone] 09/17/2020 08:44 Patient: [...] improved; 3 Clinical Report - Physicians/Mid Levels [facility] Emergency Department [address] [place] [address] Phone #: ext- [phone] 09/17/2020 08:44 Patient: [...] tablet. Refills: 0. Substitution permitted. Pharmacy - [facility] [id number] ; [place] [address]. . Follow-up: Return to the emergency department [...] care. 4 Clinical Report - Physicians/Mid Levels [facility] Emergency Department [address] [place] [address] Phone #: ext- [phone] 09/17/2020 08:44 Patient: MARVIN LEAHY Sex: M : 1990 Age: 30y(Electronically signed by Evelio Luna M.D. 09/17/2020 12:45) Name Value Range Interpretation Code Description Data Marifer rce(s) Supporting Document(s) Procedure Social History Code Duration Value Status Description Data Source(s ) Smoking 07/30/2021 12:00:00 AM EDT Never Smoker completed Never S moker eCW1 ([facility]) Smoking 07/16/2021 12:00:00 AM EDT Never Smoker completed Never S moker eCW1 ([facility]) Alcohol intake 06/07/2021 12:00:00 AM EDT Current drinker of al cohol (finding) completed Current drinker of alcohol (finding) [facility] Tobacco use and exposure 06/07/2021 12:00:00 AM EDT Never used co mpleted Never used [facility] Smoking 06/07/2021 12:00:00 AM EDT Never smoker completed Never s [facility] Alcohol intake 04/19/2021 12:00:00 AM EDT Current drinker of al cohol (finding) completed Current drinker of alcohol (finding) [facility] Alcohol intake 03/22/2021 12:00:00 AM EDT Current drinker of al cohol (finding) completed Current drinker of alcohol (finding) [facility] Alcohol intake 03/07/2021 12:00:00 AM EDT Current drinker of al cohol (finding) completed Current drinker of alcohol (finding) [facility] Smoking 02/06/2021 12:00:00 AM EDT Never Smoker completed Never S moker eCW1 ([facility]) Smoking 02/06/2021 12:00:00 AM EDT Never Smoker completed Never S moker eCW1 ([facility]) Smoking 01/23/2021 12:00:00 AM EDT Never Smoked A Pipe complet ed Never Smoked A Pipe MEDENT ([facility]) Smoking 01/23/2021 12:00:00 AM EDT Never Smoker completed Never S moker eCW1 ([facility]) Alcohol intake 11/22/2020 12:00:00 AM EST Current drinker of al cohol (finding) completed Current drinker of alcohol (finding) [facility] Smoking 11/15/2020 12:00:00 AM EST Never Smoker completed Never S moker eCW1 ([facility]) Smoking 10/30/2020 12:00:00 AM EST Never Smoker completed Never S moker eCW1 ([facility]) Smoking 10/30/2020 12:00:00 AM EST Never Smoker completed Never S moker eCW1 ([facility]) Smoking 10/18/2020 12:00:00 AM EST Never Smoker completed Never S moker eCW1 ([facility]) Smoking 10/18/2020 12:00:00 AM EST Never Smoker completed Never S moker eCW1 ([facility]) Smoking 10/18/2020 12:00:00 AM EST Never Smoker completed Never S moker eCW1 ([facility]) Vital Signs ID Date Data Source UNK Name Value Range Interpretation Code Description Data Source(s) Systolic blood pressure 125 mm[Hg] 125 mm[Hg] M EDENT ([facility], ) Diastolic blood pressure 69 mm[Hg] 69 mm[Hg] MEDENT ([facility], ) Body height 68 [in_i] 68 [in_i] MEDENT ([facility], ) 5'8" Body weight 222.00 [lb_av] 222.00 [lb_av] MEDEN T ([facility], ) Body mass index (BMI) [Ratio] 33.8 kg/m2 33.8 k g/m2 MEDENT ([facility], ) [place] body weight 154 [lb_av] 154 [lb_av] MEDEN T ([facility], ) Body weight 100.699 kg 100.699 kg [facility] ([facility], ) Body surface area Derived from formula 2.14 m2 2.14 m2 [facility] ([facility], ) Systolic blood pressure 122 mm[Hg] 122 mm[Hg] M EDENT ([facility]) Diastolic blood pressure 78 mm[Hg] 78 mm[Hg] MEDENT ([facility]) Heart rate 69 /min 69 /min MEDENT ([facility]) Body temperature 96.5 [degF] 96.5 [degF] MEDENT ([facility]) Respiratory rate 16 /min 16 /min [facility]) Oxygen saturation in Arterial blood by Pulse oximetry 98 % 98 % MEDENT ([facility]) Body weight 222.00 [lb_av] 222.00 [lb_av] MEDEN T ([facility]) Body weight 100.699 kg 100.699 kg MEDENT ([facility]) Body height 68 [in_i] 68 [in_i] MEDENT ([facility]) 5'8" Body mass index (BMI) [Ratio] 33.8 kg/m2 33.8 k g/m2 [facility] ([facility]) Body surface area Derived from formula 2.14 m2 2.14 m2 [facility] ([facility]) Body weight 216.4 [lb_av] 216.4 [lb_av] eCW1 ([facility]) Body weight 98.16 kg 98.16 kg eCW1 ([facility]) Body height 68 [in_i] 68 [in_i] eCW1 ([facility]) Body mass index (BMI) [Ratio] 32.90 kg/m2 32.90 kg/m2 W1 ([facility]) Body weight 219.0 [lb_av] 219.0 [lb_av] eCW1 ([facility]) Body weight 99.34 kg 99.34 kg eCW1 ([facility]) Body height 68 [in_i] 68 [in_i] eCW1 ([facility]) Body mass index (BMI) [Ratio] 33.30 kg/m2 33.30 kg/m2 eCW1 ([facility]) Systolic blood pressure 123 mm[Hg] 123 mm[Hg] e CW1 ([facility]) Diastolic blood pressure 81 mm[Hg] 81 mm[Hg] eCW1 ([facility]) Systolic blood pressure 120 mm[Hg] 120 mm[Hg] M EDENT ([facility]) Diastolic blood pressure 73 mm[Hg] 73 mm[Hg] MEDENT ([facility]) Body temperature 97.8 [degF] 97.8 [degF] MEDENT ([facility]) Heart rate 83 /min 83 /min MEDENT ([facility]) Respiratory rate 20 /min 20 /min [facility] ( [facility]) Oxygen saturation in Arterial blood by Pulse oximetry 97 % 97 % MEDENT ([facility]) Systolic blood pressure 121 mm[Hg] 121 mm[Hg] M EDENT ([facility]) Diastolic blood pressure 70 mm[Hg] 70 mm[Hg] MEDENT ([facility]) Heart rate 98 /min 98 /min MEDENT ([facility]) Respiratory rate 22 /min 22 /min MEDENT ( [facility]) Oxygen saturation in Arterial blood by Pulse oximetry 97 % 97 % [facility] Body weight 209.8 [lb_av] 209.8 [lb_av] eCW1 ([facility]) Body height 68 [in_i] 68 [in_i] W1 ([facility]) Body mass index (BMI) [Ratio] 31.90 kg/m2 31.90 kg/m2 eCW1 ([facility]) Systolic blood pressure 122 mm[Hg] 122 mm[Hg] e CW1 ([facility]) Diastolic blood pressure 80 mm[Hg] 80 mm[Hg] eCW1 ([facility]) Oxygen saturation in Arterial blood by Pulse oximetry 98 % 98 % MEDENT ([facility]) Body weight 205.12 [lb_av] 205.12 [lb_av] MEDEN T ([facility]) Body weight 93.045 kg 93.045 kg MEDENT ([facility]) Systolic blood pressure 110 mm[Hg] 110 mm[Hg] M EDENT ([facility]) Diastolic blood pressure 70 mm[Hg] 70 mm[Hg] MEDENT ([facility]) Heart rate 84 /min 84 /min MEDENT ([facility]) Body temperature 97.7 [degF] 97.7 [degF] MEDENT ([facility]) Respiratory rate 16 /min 16 /min MEDENT ( [facility]) Body weight 209.8 [lb_av] 209.8 [lb_av] W1 ([facility]) Body height 68 [in_i] 68 [in_i] W1 ([facility]) Body mass index (BMI) [Ratio] 31.90 kg/m2 31.90 kg/m2 W1 ([facility]) Systolic blood pressure 118 mm[Hg] 118 mm[Hg] e CW1 ([facility]) Diastolic blood pressure 74 mm[Hg] 74 mm[Hg] eCW1 ([facility]) Systolic blood pressure 118 mm[Hg] 118 mm[Hg] M EDENT ([facility]) Diastolic blood pressure 61 mm[Hg] 61 mm[Hg] MEDENT ([facility]) Heart rate 67 /min 67 /min MEDENT ([facility]) Respiratory rate 20 /min 20 /min MEDENT ( [facility]) Oxygen saturation in Arterial blood by Pulse oximetry 98 % 98 % MEDENT ([facility]) Systolic blood pressure 120 mm[Hg] 120 mm[Hg] M EDENT ([facility]) Diastolic blood pressure 70 mm[Hg] 70 mm[Hg] MEDENT ([facility]) Heart rate 88 /min 88 /min MEDENT ([facility]) Respiratory rate 16 /min 16 /min MEDENT ( [facility]) Oxygen saturation in Arterial blood by Pulse oximetry 96 % 96 % MEDENT ([facility]) Body weight 205.00 [lb_av] 205.00 [lb_av] MEDEN T ([facility]) Body weight 92.988 kg 92.988 kg MEDENT ([facility]) Body height 68 [in_i] 68 [in_i] MEDENT ([facility]) 5'8" Body mass index (BMI) [Ratio] 31.2 kg/m2 31.2 k g/m2 MEDENT ([facility]) Body surface area Derived from formula 2.07 m2 2.07 m2 MEDENT ([facility]) Body weight 213.00 [lb_av] 213.00 [lb_av] MEDEN T ([facility]) Heart rate 95 /min 95 /min MEDENT ([facility]) Oxygen saturation in Arterial blood by Pulse oximetry 98 % 98 % [facility] Body height 68 [in_i] 68 [in_i] MEDENT ([facility]) 5'8" Body mass index (BMI) [Ratio] 32.4 kg/m2 32.4 k g/m2 MEDENT ([facility]) Body temperature 97.9 [degF] 97.9 [degF] MEDENT ([facility]) Systolic blood pressure 133 mm[Hg] 133 mm[Hg] M EDENT ([facility]) Diastolic blood pressure 92 mm[Hg] 92 mm[Hg] MEDENT ([facility]) Body weight 210 [lb_av] 210 [lb_av] eCW1 ([facility]) Body height 68 [in_i] 68 [in_i] eCW1 ([facility]) Body mass index (BMI) [Ratio] 31.93 kg/m2 31.93 kg/m2 eCW1 ([facility]) Systolic blood pressure 113 mm[Hg] 113 mm[Hg] e CW1 ([facility]) Diastolic blood pressure 75 mm[Hg] 75 mm[Hg] eCW1 ([facility]) Systolic blood pressure 133 mm[Hg] 133 mm[Hg] M EDENT ([facility]) Diastolic blood pressure 75 mm[Hg] 75 mm[Hg] MEDENT ([facility]) Heart rate 79 /min 79 /min MEDENT ([facility]) Respiratory rate 20 /min 20 /min MEDENT ( [facility]) Oxygen saturation in Arterial blood by Pulse oximetry 97 % 97 % MEDENT ([facility]) Body temperature 97.3 [degF] 97.3 [degF] MEDENT ([facility]) Systolic blood pressure 131 mm[Hg] 131 mm[Hg] M EDENT ([facility]) Diastolic blood pressure 86 mm[Hg] 86 mm[Hg] MEDENT ([facility]) Body height 68 [in_i] 68 [in_i] MEDENT ([facility]) 5'8" Body weight 210.00 [lb_av] 210.00 [lb_av] MEDEN T ([facility]) Body mass index (BMI) [Ratio] 31.9 kg/m2 31.9 k g/m2 MEDENT ([facility]) Heart rate 86 /min 86 /min MEDENT ([facility]) Oxygen saturation in Arterial blood by Pulse oximetry 98 % 98 % MEDENT ([facility]) Body weight 206.8 [lb_av] 206.8 [lb_av] W1 ([facility]) Body height 68 [in_i] 68 [in_i] eCW1 ([facility]) Body mass index (BMI) [Ratio] 31.44 kg/m2 31.44 kg/m2 W1 ([facility]) Systolic blood pressure 122 mm[Hg] 122 mm[Hg] e CW1 ([facility]) Diastolic blood pressure 78 mm[Hg] 78 mm[Hg] eCW1 ([facility]) Body weight 207.6 [lb_av] 207.6 [lb_av] eCW1 ([facility]) Body height 68 [in_i] 68 [in_i] W1 ([facility]) Body mass index (BMI) [Ratio] 31.56 kg/m2 31.56 kg/m2 eCW1 ([facility]) Systolic blood pressure 112 mm[Hg] 112 mm[Hg] e CW1 ([facility]) Diastolic blood pressure 72 mm[Hg] 72 mm[Hg] eCW1 ([facility]) Systolic blood pressure 110 mm[Hg] 110 mm[Hg] M EDENT ([facility]) Diastolic blood pressure 82 mm[Hg] 82 mm[Hg] MEDENT ([facility]) Heart rate 87 /min 87 /min MEDENT ([facility]) Body temperature 97.8 [degF] 97.8 [degF] MEDENT ([facility]) Respiratory rate 16 /min 16 /min [facility] ( [facility]) Oxygen saturation in Arterial blood by Pulse oximetry 98 % 98 % MEDENT ([facility]) Body weight 200.25 [lb_av] 200.25 [lb_av] MEDEN T ([facility]) Body weight 90.833 kg 90.833 [facility] Body height 68 [in_i] 68 [in_i] [facility] ([facility]) 5'8" Body mass index (BMI) [Ratio] 30.4 kg/m2 30.4 k g/m2 [facility] ([facility]) Body surface area Derived from formula 2.04 m2 2.04 m2 [facility] ([facility]) ID Date Data Source [id number] 04/19/2021 01:03:17 PM [facility] Name Value Range Interpretation Code Description Data Source(s) Body height Measured 67.99 in 67.99 in [facility] ID Date Data Source [id number] 04/02/2021 09:10:27 PM [facility] Name Value Range Interpretation Code Description Data Source(s) WEIGHT RECORDED 200.3 lb 200.3 lb [facility] Body height Measured 68 in 68 in [facility] ID Date Data Source [id number] 03/11/2021 08:26:17 AM [facility] Name Value Range Interpretation Code Description Data Source(s) WEIGHT RECORDED 199.52 lb 199.52 lb [facility] Body height Measured 68.11 in 68.11 in [facility] TRANSFER FROM [facility] ID Date Data Source [id number] 04/02/2021 07:40:24 PM EDT [facility] Name Value Range Interpretation Code Description Data Source(s) WEIGHT RECORDED 200.00 pounds 200.00 pounds [facility] Height 68 Inches 068 Inches [facility] ID Date Data Source [id number] 02/12/2021 01:04:37 PM EDT [facility] Name Value Range Interpretation Code Description Data Source(s) WEIGHT RECORDED 205.00 pounds 205.00 pounds [facility] Height 68 Inches 06 Inches [facility] ID Date Data Source [id number] 01/15/2021 12:37:23 PM [facility] Name Value Range Interpretation Code Description Data Source(s) WEIGHT RECORDED 207.00 pounds 207.00 pounds [facility] Treatment Plan of Care Planned Activity Planned Date Details Description Data Source (s) cetirizine hydrochloride 10 MG Oral Tablet 07/30/2021 12:00:00 AM E DT eCW1 ([facility]) Hydroxyzine Hydrochloride 25 MG Oral Tablet 07/16/2021 12:00:00 AM EDT [facility] ([facility]) pantoprazole 40 MG Delayed Release Oral Tablet 06/05/2021 12:00:00 AM [facility] Chorionic Gonadotropin 55106 UNT/ML Injectable Solutio n 05/15/2021 12:00:[address] [facility] Clobetasol Propionate 0.5 MG/ML Topical Cream 04/01/2021 12:00:00 A M [facility] apixaban 2.5 MG Oral Tablet 04/01/2021 12:00:00 AM [facility] quetiapine 50 MG Oral Tablet 04/01/2021 12:00:00 AM [facility] Ondansetron 4 MG Disintegrating Oral Tablet 03/22/2021 03:43:19 PM [facility] acetaminophen (TYLENOL) tablet 650 mg 03/22/2021 03:42:40 PM [facility] Sodium Chloride 0.111 MEQ/ML Nasal Solution 03/22/2021 03:39:25 PM [facility] Phenazopyridine hydrochloride 200 MG Delayed Release O ral Tablet 03/08/2021 12:00:[address] [facility] Hydroxyzine Hydrochloride 50 MG Oral Tablet 03/07/2021 01:59:51 AM [facility] Melatonin 5 MG Oral Tablet 03/07/2021 01:59:43 AM [facility] Aluminum Hydroxide 40 MG/ML / Magnesium Hydroxide 40 MG/ML / Simethicone 4 MG/ML Oral Suspension 03/07/2021 01:59:34 AM [facility] Ondansetron 4 MG Disintegrating Oral Tablet 03/07/2021 01:59:29 AM [facility] Magnesium Hydroxide 80 MG/ML Oral Suspension 03/07/2021 01:59:26 AM [facility] Acetaminophen 325 MG Oral Tablet 03/07/2021 01:59:13 AM [facility] Syringe 22G X 1" 3 ML 02/27/2021 12:00:00 AM [facility] Chorionic Gonadotropin 53921 UNT/ML Injectable Solutio n 02/27/2021 12:00:[address] [facility] Chorionic Gonadotropin 72107 UNT/ML Injectable Solutio n 11/28/2020 12:00:00 AM [facility] Escitalopram 20 MG Oral Tablet 11/07/2020 12:00:00 AM [facility] Trazodone Hydrochloride 50 MG Oral Tablet 11/07/2020 12:00:[address] [facility] apixaban 5 MG Oral Tablet 11/07/2020 12:00:00 AM [facility] HM LIDOCAINE PATCH EX 11/07/2020 12:00:00 AM [facility] Xolair 150 MG/ML 10/19/2020 12:00:00 AM [place] [address] ([facility]) Xolair 150 MG/ML 10/19/2020 12:00:00 AM 1 ([facility]) Xolair 150 MG/ML 10/19/2020 12:00:00 AM EST eCW1 ([facility]) Divalproex Sodium 250 MG Delayed Release Oral Tablet [facility] Escitalopram [address] [facility] Naproxen [address] [facility] Acetaminophen 325 MG / Hydrocodone Bitartrate [address] [facility] Acetaminophen [address] [facility] Ivermectin 10 MG/ML Topical Cream [facility]
[2021-10-10] MEDS ORDERED: fentaNYL 100 MCG/2 ML INJECTION (J3010) As Ordered ONE (10:37)
--- NOTE | 2021-10-10 10:47 | ROOR ---
Patient Name: Chivo Bae Procedure Date: 10/10/2021 10:33 AM Date of : 1990 Age: 31 Room: [facility] Gender: Male Note Status: Finalized Procedure: Upper GI endoscopy Indications: Epigastric abdominal pain, Follow-up of Helicobacter pylori Providers: Sherman Martinez MD Referring MD: Ines Juarez Do, VIKY SALMON MD Requesting Provider: Medicines: Monitored Anesthesia Care Complications: No immediate complications. Procedure: Pre-Anesthesia Assessment: - The heart rate, respiratory rate, oxygen saturations, blood pressure, adequacy of pulmonary ventilation, and response to care were monitored throughout the procedure. The Endoscope was introduced through the mouth, and advanced to the second part of duodenum. The upper GI endoscopy was accomplished without difficulty. The patient tolerated the procedure well. Findings: The esophagus was normal. The stomach was normal. The examined duodenum was normal. Biopsies were taken with a cold forceps on the anterior wall of the gastric antrum for Helicobacter pylori testing. Impression: - Normal esophagus. - Normal stomach. - Normal examined duodenum. - Biopsies were taken with a cold forceps for Helicobacter pylori testing. Recommendation: - Observe patient's clinical course. Procedure Code(s): --- Professional --- 81102, Esophagogastroduodenoscopy, flexible, transoral; with biopsy, single or multiple Diagnosis Code(s): --- Professional --- B96.81, Helicobacter pylori [H. pylori] as the cause of diseases classified elsewhere R10.13, Epigastric pain CPT copyright 2019 [employer]. All rights reserved. The codes documented in this report are preliminary and upon clinical coder review may be revised to meet current compliance requirements. Sherman Martinez MD Sherman Martinez MD 10/10/2021 10:47:05 AM Electronically signed by Sherman Martinez MD Number of Addenda: 0 Note Initiated On: 10/10/2021 10:33 AM Estimated Blood Loss: Estimated blood loss: none.
--- NOTE | 2021-10-10 11:03 | ROOR ---
Patient Name: Chivo Bae Procedure Date: 10/10/2021 10:34 AM Date of : 1990 Age: 31 Room: [id number] Gender: Male Note Status: Finalized Procedure: Colonoscopy Indications: Generalized abdominal pain Providers: Sherman Martinez MD Referring MD: Ines Juarez Do, GUTHRIE GUTHRIE, MD Requesting Provider: Medicines: Monitored Anesthesia Care Complications: No immediate complications. Procedure: Pre-Anesthesia Assessment: - The heart rate, respiratory rate, oxygen saturations, blood pressure, adequacy of pulmonary ventilation, and response to care were monitored throughout the procedure. The Colonoscope was introduced through the anus and advanced to 10 cm into the ileum. The colonoscopy was performed without difficulty. The patient tolerated the procedure well. Findings: The perianal and digital rectal examinations were normal. Small Internal Hemorrhoids. The entire examined colon appeared normal on direct and retroflexion views. The terminal ileum appeared normal. Impression: - Small Internal Hemorrhoids. - The entire colon is normal on direct and retroflexion views. - The examined portion of the ileum was normal. - No specimens collected. - (Irritable Bowel Syndrome/IBS suspected.) Recommendation: - Continue present medications. Procedure Code(s): --- Professional --- 43234, Colonoscopy, flexible; diagnostic, including collection of specimen(s) by brushing or washing, when performed (separate procedure) Diagnosis Code(s): --- Professional --- R10.84, Generalized abdominal pain CPT copyright 2019 [employer]. All rights reserved. The codes documented in this report are preliminary and upon english professor review may be revised to meet current compliance requirements. Sherman Martinez MD Sherman Martinez MD 10/10/2021 11:03:12 AM Electronically signed by Sherman Martinez MD Number of Addenda: 0 Note Initiated On: 10/10/2021 10:34 AM Estimated Blood Loss: Estimated blood loss: none.
[2021-10-10 11:20] VITALS: BP 133/61
== END 2021-10-10 11:30 | disposition home or self-care (01) ==
LOC: M OPP 09:44
PROVIDERS: ATTEND Internal Medicine Gastroenterology
DX: R10.84 Generalized abdominal pain (principal); K64.8 Other hemorrhoids; B96.81 Helicobacter pylori [H. pylori] as the cause of diseases classified elsewhere; R10.13 Epigastric pain; Z88.8 Allergy status to other drugs, medicaments and biological substances; Z91.013 Allergy to seafood
CPT/HCPCS: 43239; 45378; 88305; J3010

== ENCOUNTER 2021-10-14 11:40 | Emergency (ER) | payer OTHER ==
[~2021-10-14] VITALS: Ht 172.7 cm; Wt 101.9 kg
[~2021-10-14 11:40] MED LIST changes: -NS 1,000 ML IV ONE
--- OUTSIDE RECORDS SUMMARY | 2021-10-14 11:53 | CCD ---
Author Author [facility] Organization [facility] Address Unknown Phone Unavailable Care Team Providers Care Centerless Grinder Name Role Phone Yazmin BENZ MD Unavailable [...] Unavailable OBEN, T BENITO MD Unavailable Unavailable SUSIE, L LLUVIA MD [...] Unavailable SUSIE, L LLUVIA MD Unavailable Unavailable [place] Falanga, A Cari NANOELECTRONICS ENGINEER Unavailable Unavailable [place] Falanga, A Cari NANOELECTRONICS ENGINEER Unavailable Unavailable Oscar Falanga, A Cari NANOELECTRONICS ENGINEER Unavailable Unavailable Oscar Falanga, A Cari NANOELECTRONICS ENGINEER Unavailable Unavailable [place] Falanga, A Cari NANOELECTRONICS ENGINEER Unavailable Unavailable [place] Falanga, A Cari NANOELECTRONICS ENGINEER Unavailable Unavailable [place] Falanga, A Cari NANOELECTRONICS ENGINEER Unavailable Unavailable Oscar Falanga, A Cari NANOELECTRONICS ENGINEER Unavailable Unavailable Oscar Falanga, A Cari NANOELECTRONICS ENGINEER Unavailable Unavailable Oscar Falanga, A Cari NANOELECTRONICS ENGINEER Unavailable Unavailable [place] Falanga, A Cari NANOELECTRONICS ENGINEER Unavailable Unavailable [place] Falanga, A Cari NANOELECTRONICS ENGINEER Unavailable Unavailable [place] Falanga, A Cari NANOELECTRONICS ENGINEER Unavailable Unavailable Oscar Falanga, A Cari NANOELECTRONICS ENGINEER Unavailable Unavailable Oscar Falanga, A Cari NANOELECTRONICS ENGINEER Unavailable Unavailable Oscar Falanga, A Cari NANOELECTRONICS ENGINEER Unavailable Unavailable [place] Falanga, A Cari NANOELECTRONICS ENGINEER Unavailable Unavailable [place] Falanga, A Cari NANOELECTRONICS ENGINEER Unavailable Unavailable [place] Falanga, A Cari NANOELECTRONICS ENGINEER Unavailable Unavailable Oscar Falanga, A Cari NANOELECTRONICS ENGINEER Unavailable Unavailable [place] Falanga, A Cari NANOELECTRONICS ENGINEER Unavailable Unavailable [place] Falanga, A Cari NANOELECTRONICS ENGINEER Unavailable Unavailable [place] Falanga, A Cari NANOELECTRONICS ENGINEER Unavailable Unavailable [place] Falanga, A Cari NANOELECTRONICS ENGINEER Unavailable Unavailable Oscar Falanga, A Cari NANOELECTRONICS ENGINEER Unavailable Unavailable Oscar Falanga, A Cari NANOELECTRONICS ENGINEER Unavailable Unavailable Oscar Falanga, A Cari NANOELECTRONICS ENGINEER Unavailable Unavailable Oscar Falanga, A Cari NANOELECTRONICS ENGINEER Unavailable Unavailable Oscar Falanga, A Cari NANOELECTRONICS ENGINEER Unavailable Unavailable Oscar Falanga, A Cari NANOELECTRONICS ENGINEER Unavailable Unavailable REINDL, EFRAIN PRICE Unavailable Unavailable [...] Unavailable JAZMIN, MAQBOOL DYLAN MD Unavailable Unavailable JAZIMN, MAQBOOL DYLAN MD Unavailable Unavailable JAZMIN, MAQBOOL [...] Unavailable JAZMIN, MAQBOOL DYLAN MD Unavailable Unavailable OBBola JONES MD Unavailable [...] T BENITO MD Unavailable Unavailable Isabel Sutherland Unavailable [phone] Isabel Sutherland Unavailable [phone] Isabel Sutherland Unavailable [phone] Isabel Sutherland Unavailable [phone] Isabel Sutherland Unavailable [phone] Isabel Sutherland Unavailable [phone] Sutherland, J Mike PA Unavailable [phone] Isabel Sutherland Mike PA Unavailable [phone] Isabel Sutherland Mike PA Unavailable [phone] Isabel Sutherland Mike PA Unavailable [phone] Isabel Sutherland Mike PA Unavailable [phone] Isabel Sutherlandrick PA Unavailable [phone] Isabel Sutherlandrick PA Unavailable [phone] Millicent DAVID MD Unavailable Unavailable Millicent DAVID [...] Hall MD Unavailable Unavailable KIARA, C Isabel PRICE Unavailable Unavailable KIARA, Benjy Hall MD Unavailable Unavailable KIARA, C Isabel PRICE Unavailable Unavailable KIARA, C Isabel PRIEC Unavailable Unavailable KIARA, C Isabel PRICE Unavailable Unavailable KIARA, C Isabel PRICE Unavailable Unavailable KIARA, Benjy Hall MD Unavailable Unavailable KIARA, Benjy Hall MD Unavailable Unavailable KIARA, Benjy Hall MD Unavailable Unavailable KIARA, Benjy Hall MD Unavailable Unavailable KIARA, C Isabel PRICE Unavailable Unavailable KIARA, C Isabel PRICE Unavailable Unavailable KIARA, Benjy Hall MD Unavailable Unavailable KIARA, Benjy Hall MD Unavailable Unavailable KIARA, Benjy Hall MD Unavailable Unavailable KIARA, Benjy Hall MD Unavailable Unavailable KIARA, Benjy Hall MD Unavailable Unavailable KIARA, Benjy Hall MD Unavailable Unavailable KIARA, Benjy Hall MD Unavailable Unavailable KIARA, Benjy Hall MD Unavailable Unavailable KIARA, Benjy Hall MD Unavailable Unavailable KIARA, eBnjy Hall MD Unavailable Unavailable KIARA, Benjy Hall [...] Unavailable SHAYE, S RUPESH MD Unavailable Unavailable HSAYE, S RUPESH MD Unavailable Unavailable SHAYE, S [...] F Jyoti MD Unavailable Unavailable Kunnumpurath, F Joyti MD Unavailable Unavailable Kunnumpurath, F Jyoti MD [...] Unavailable Unavailable Benjy GABRIEL MD Unavailable Unavailable Michael, Domingo Fraser MD Unavailable Unavailable Michael, Domingo Fraser MD Unavailable Unavailable Michael, Domingo Fraser MD Unavailable Unavailable Michael, Domingo Fraser MD Unavailable Unavailable Michael, Domingo Fraser MD Unavailable Unavailable Michael, Domingo Fraser MD Unavailable Unavailable Michael, Domingo Fraser MD Unavailable Unavailable Michael, Domingo Fraser MD Unavailable Unavailable Michael, Domingo Fraser MD Unavailable Unavailable Michael, Domingo Fraser MD Unavailable Unavailable Michael, Domingo Fraser MD Unavailable Unavailable Michael, Domingo Fraser MD Unavailable Unavailable Michael, Domingo Fraser MD Unavailable Unavailable Michael, Domingo Fraser MD Unavailable Unavailable Michael, Domingo Fraser MD Unavailable Unavailable Michael, Domingo Fraser MD Unavailable Unavailable Michael, Domingo Fraser MD Unavailable Unavailable Michael, Domingo Fraser MD Unavailable Unavailable Michael, Domingo Fraser MD Unavailable Unavailable Michael, Domingo Fraser MD Unavailable Unavailable Michael, Domingo Fraser MD Unavailable Unavailable Michael, Domingo Fraser MD Unavailable Unavailable Michael, Domingo Fraser MD Unavailable Unavailable Michael, Domingo Fraser MD Unavailable Unavailable Michael, Domingo Fraser MD Unavailable Unavailable Michael, Domingo Fraser MD Unavailable Unavailable Michael, Domingo Fraser MD Unavailable Unavailable Michael, Domingo Fraser MD Unavailable Unavailable Michael, Domingo Fraser MD Unavailable Unavailable Michael, Domingo Fraser MD Unavailable Unavailable Michael, Domingo Fraser MD Unavailable Unavailable Michael, Domingo Fraser MD Unavailable Unavailable Michael, Domingo Fraser MD Unavailable Unavailable Michael, Domingo Fraser MD Unavailable Unavailable Zeyad ANNIN Unavailable Unavailable Chao, J Addy PA-C Unavailable Unavailable Chao, J Addy PA-C Unavailable Unavailable Chao, J Addy PA-C Unavailable Unavailable Chao, J Addy PA-C Unavailable Unavailable Chao, J Addy PA-C Unavailable Unavailable Chao, J Addy PA-C Unavailable Unavailable Chao, J Addy PA-C Unavailable Unavailable Chao, J Addy PA-C Unavailable Unavailable Chao, J Addy PA-C Unavailable Unavailable Chao, J Addy PA-C Unavailable Unavailable NON, PHYSICIAN STAFF Unavailable [...] is protected by Article 27-F of the [facility] Public Health law. If you continue you may have access to information: Regarding HIV / AIDS; Provided by facilities licensed or operated by the [facility] Office of Mental Health; or Provided by the [facility] Office for People With Developmental Disabilities. If such information is present, then the following [facility] mandated warning applies: This information has been [...] law may result in a fine or assisted sentence or both. A general authorization for the release of medical or other information is NOT sufficient authorization for further disc losure. Allergies and Adverse Reactions Type Description Substance Reaction Status Data Source(s ) Propensity to adverse reactions MACROBID [facility] Food allergy SEAFOOD SEAFOOD S[facility] Food allergy SHELLFISH SHELLFISH [facility] Drug allergy PRIMAQUINE PRIMAQUINE [facility] Drug allergy ASPIRIN ASPIRIN SWELLING [facility] Propensity to adverse reactions SHELLFISH ALLERGY [facility] Propensity to adverse reactions NO KNOWN ALLERGIES NO KNOWN ALLERGIES [facility] Propensity to adverse reactions PRIMAQUINE PRIMUINE [facility] Propensity to adverse reactions NITROFURANTOIN NITROFURANTOIN [facility] Propensity to adverse reactions ASPIRIN [facility] No Known Drug Allergies No Known Drug Allergies [facility] Drug Allergy Drug Allergy NKDA [facility] ([facility]) Encounters Encounter Providers Location Date Indications Data Source(s ) Outpatient Attender: Mike DUNCAN CPSCAORT-CPSCAEND 10/08/2021 03:43:00 PM EST - 10/08/2021 03:44:00 PM EST [facility] Patient discharged. Outpatient Attender: EFRAIN Gould/Jacob/Edvin/Hebert shafer 09/26/2021 08:00:00 AM EST [facility] ([facility], ) Outpatient Attender: Isabel CRAIG MD [id number] 09/13/2021 12:00:00 AM EDT [facility] Outpatient Attender: Jyoti Lombardo MDConsultant: STAFF NON 08/13/2021 04:52:00 PM EDT - 08/13/2021 05:52:00 PM EDT [facility] Outpatient Attender: Jyoti Lombardo MDConsultant: STAFF NON 08/09/2021 10:38:00 AM EDT - 08/09/2021 11:35:00 AM EDT [facility] Outpatient Attender: Jyoti Lombardo MD Family Practice 0 08/08/2021 04:00:00 PM [facility] Outpatient Attender: Jyoti Lombardo MDConsultant: STAFF NON 08/08/2021 03:43:00 PM EDT - 08/08/2021 03:43:00 PM EDT [facility] Outpatient Attender: Evelio Rodriguez MD CPSCAORT-CPSCAEND 08/02 02:38:00 PM EDT - 08/02/2021 02:39:00 PM EDT E22.1 [facility] E22.1 Patient discharged. Out[place] [address] [facility] [address] 07/30/2021 12:00:00 AM EDT eCW1 ([facility]) Emergency Attender: EVELIO LUNAConsultant: STAFF NON 07/18/2021 04:01:00 AM EDT - 07/18/2021 07:51:00 AM EDT [facility] Patient discharged. [place]patient [address] [facility] [place] [address] 07/16/2021 12:00:00 AM EDT eCW1 ([facility]) Unknown [address] [facility] [address] 06/26/2021 12:00:00 AM EDT eCW1 ([facility]) Outpatient Attender: BORIS SALEEMAttender: Boris Saleem 06/20/2021 12:00:00 AM EDT [facility] Outpatient Attender: BENITO WILLETT MD Family Practice 06/18/2021 02:00:0 0 PM EDT [facility] ([facility]) Outpatient Attender: BENITO WILLETT MDConsultant: STAFF NON 06/18/2021 01:46:00 PM EDT - 06/18/2021 01:46:00 PM EDT [facility] Emergency Attender: EVELIO Nettlesant: STAFF NON 06/10/2021 11:30:00 AM EDT - 06/10/2021 01:57:00 PM EDT [facility] Patient discharged. Outpatient Attender: Isabel CRAIG MD [id number] 06/07/2021 12:00:00 AM EDT [facility] Outpatient Referrer: Isabel CRAIG MD 05/30/2021 12:00: 00 AM EDT Infertility male [facility] Infertility male Outpatient Admitter: Isabel CRAIG MDReferrer: Isabel CRAIG MD 05/30/2021 12:00:00 AM EDT [facility] SEMEN ANALYSIS Outpatient Attender: Isabel CRAIG MD 05/24/2021 12:00:00 AM EDT [facility] Emergency Attender: EVELIO Nettlesant: STAFF NON 05/06/2021 11:04:00 AM EDT - 05/06/2021 01:37:00 PM EDT [facility] Patient discharged. Emergency Attender: LLUVIA LANTIGUA MDConsultant: STAFF NON 05/05/2021 03:26:00 AM EDT - 05/05/2021 06:26:00 AM EDT [facility] Patient discharged. Outpatient Attender: Isabel CRAIG MD [id number] 04/19/20 12:00:00 AM EDT - 04/19/2021 12:58:31 PM EDT Male infertility, unspecified [facility] Male infertility, unspecified Inpatient Attender: MAURI Nunez er: RUPESH CR MDAttender: Maya Wilson MDAttender: EFRAIN BENZ MDAttender: ISACC DAVID MDAttender: Evelio Fernandez MDAdmitter: RUPESH CR MDReferrer: Jesse James MDConsultant: MAGGY ALVARADO MD [id number] 03/21/2021 12:00:00 AM EDT - 04/01/2021 02:45:00 PM EDT Illness, unspecified [facility] Illness, unspecified Patient discharged. Outpatient Attender: Isabel CRAIG MD [id number] 2021 12:00:00 AM EDT [facility] Inpatient Attender: Len Ochoa tender: JON GABRIEL MDAdmitter: Len Banerjee PA-C [id number] 03/07/2021 12:00:00 AM EDT - 03/08/2021 12:03:00 PM EDT Major depressive disorder, single episode, unspecified [facility] Major depressive disorder, single episod e, unspecified Patient discharged. Outpatient Attender: BENITO WILLETT MDConsultant: STAFF NON 03/01/2021 10:45:00 AM EDT - 03/01/2021 03:10:00 PM EDT [facility] Patient discharged. Emergency Attender: Carter Small MDConsultant: STAFF NON 02/15/2021 11:50:00 AM EDT - 02/15/2021 02:49:00 PM EDT [facility] Patient discharged. Outpatient Attender: BENITO WILLETT MD Family Practice 02/12/2021 01:30:0 0 PM EDT [facility] ([facility]) Outpatient Attender: BENITO WILLETT MDConsultant: STAFF NON 02/12/2021 01:04:00 PM EDT - 02/12/2021 01:04:00 PM EDT [facility] Outpatient [address] [facility] [address] 02/06/2021 12:00:00 AM EDT eCW1 ([facility]) Outpatient Attender: Jyoti Lombardo MD Family Practice 0 02/05/2021 03:00:00 PM [facility] Attender: Jyoti Lombardo MDConsultant: STAFF NON 02/05/2021 02:40:00 PM EDT - 02/05/2021 02:40:00 PM EDT [facility] Outpatient Attender: BENITO WILLETT MDConsultant: STAFF NON 01/23/2021 10:32:00 AM EDT - 01/23/2021 10:32:00 AM EDT [facility] [place] [address] [facility] [address] 01/23/2021 12:00:00 AM EDT eCW1 ([facility]) Emergency Attender: Carter Small MDConsultant: STAFF NON 01/18/2021 01:23:00 PM EST - 01/18/2021 03:35:00 PM [facility] Patient discharged. Outpatient Attender: BENITO WILLETT MDConsultant: STAFF NON 01/15/2021 12:37:00 PM EST - 01/15/2021 12:37:00 PM [facility] Outpatient Attender: BENITO WILLETT MD Family Practice 01/15/2021 12:00:0 0 PM EST [facility] ([facility]) Emergency Attender: NICOL BANG MDConsultant: BAKARI Boyle NON 01/13/2021 10:28:00 AM EST - 01/13/2021 04:04:00 PM [facility] Patient discharged. Outpatient Attender: BENITO WILLETT MDConsultant: STAFF NON 01/11/2021 11:00:00 AM EST - 01/11/2021 03:17:00 PM [facility] Patient discharged. Outpatient Admitter: Isabel CRAIG MDReferrer: Isabel CRAIG MD 01/07/2021 12:00:00 AM [facility] Outpatient Attender: BENITO WILLETT MDConsultant: STAFF NON 12/31/2020 06:56:10 AM EST - 01/01/2021 04:00:[facility] Emergency Attender: NICOL BANG MDConsultant: BAKARI Boyle NON 12/27/2020 10:55:00 AM EST - 12/27/2020 01:35:00 PM [facility] Patient discharged. Emergency Attender: Addy ANTOINECConsultant: STAFF NO N 12/20/2020 11:29:00 AM EST - 12/20/2020 03:03:00 PM [facility] Patient discharged. Emergency Attender: EVELIO LUNAConsultant: STAFF NON 12/19/2020 09:11:00 AM EST - 12/19/2020 01:41:00 PM [facility] Patient discharged. Outpatient Attender: DYLAN SHI MD Medical [facility] 12/18 12:15:00 PM EST [facility] (D[facility] Shi [facility]) Outpatient Attender: Carter Small MDAttender : Cari Sweet FNPConsultant: STAFF NON 12/01/2020 02:50:00 PM EST - 12/03/2020 12:25:00 PM [facility] Patient discharged. Outpatient Attender: Isabel CRAIG MD [id number] 11/22/2020 12:00:00 AM [facility] Emergency Attender: EVELIO LUNAConsultant: STAFF NON 11/19/2020 02:16:00 PM EST - 11/19/2020 03:51:00 PM [facility] Patient discharged. [place] [address] [facility] [address] 11/15/2020 12:00:00 AM EST eCW1 ([facility]) Outpatient Attender: BENITO WILLETT MDConsultant: STAFF NON 11/14/2020 01:25:00 PM EST - 11/14/2020 01:25:00 PM EST [facility] Outpatient Attender: BENITO WILLETT MD [facility] 11/14/2020 12:00:0 0 PM EST [facility] ([facility]) Outpatient Attender: DYLAN SHI MD Medical [facility] 11/07 01:15:00 PM EST [facility] ([facility]) [place]patient [address] [facility] [address] 10/30/2020 12:00:00 AM EST eCW1 ([facility]) Outpatient [address] [facility] [address] 10/25/2020 12:00:00 AM EST eCW1 ([facility]) Emergency Attender: Addy ANTOINECConsultant: STAFF NO N 10/19/2020 10:32:00 AM EST - 10/19/2020 01:51:00 PM [facility] Patient discharged. [place]op visit [address] [facility] [address] 10/19/2020 12:00:00 AM EST eCW1 ([facility]) Unknown [address] [facility] [address] 10/19/2020 12:00:00 AM EST eCW1 ([facility]) Outpatient [address] [facility] [address] 10/18/2020 12:00:00 AM EST eCW1 ([facility]) Emergency Attender: EVELIO LUNAConsultant: STAFF NON 09/17/2020 08:46:00 AM EST - 09/17/2020 12:18:00 PM [facility] Patient discharged. Outpatient Attender: Jyoti Lombardo MDConsultant: STAFF NON 09/07/2020 02:36:00 PM EDT - 09/07/2020 02:36:00 PM EDT [facility] Medications Medication Brand Name Start Date Product Form Dose Route Admi nistrative Instructions Pharmacy Instructions Status Indications Reaction Description Data Source(s) POLYETHYLENE GLYCOL 3350 142 MG/ML Oral Solution [Miralax] M iralax 09/26/2021 12:00:00 AM EST active M [facility]ENT ([facility], ) magnesium citrate 58.2 MG/ML Oral Solution Magnesium Citrate 09/26/2021 12:00:00 AM EST active [facility] ([facility], ) pantoprazole 40 MG Delayed Release Oral Tablet Pantoprazole Sodium 09/26/2021 12:00:00 AM EST ORAL active M [facility]ENT ([facility]) cetirizine hydrochloride 10 MG Oral Tablet Cetirizine HCl 10 MG Cetirizine HCl 10 MG 07/30/2021 12:00:00 AM EDT 1.0 {tablet} activ e Cetirizine HCl 10 MG eCW1 ([facility]) Hydroxyzine Hydrochloride 25 MG Oral Tablet hydrOXYzin e HCl 25 MG hydrOXYzine HCl 25 MG 07/16/2021 12:00:00 AM EDT 1.0 {tablet_as_needed} active hydrOXYzine HCl 25 MG eCW1 ([facility]) pantoprazole 40 MG Delayed Release Oral Tablet Pantoprazole Sodium 40 MG Oral Tablet Delayed Release (PROTONIX) Pantoprazole Sodium 40 MG Oral Tablet De layed Release (PROTONIX) 06/05/2021 12:00:00 AM EDT acti ve [facility] Chorionic Gonadotropin 36443 UNT/ML Inje ctable Solution Chorionic Gonadotropin 50970 UNIT Intramuscular Solution Reconstituted Chorionic Gonadotropin 13150 UNIT Intramuscular Solution Reconstituted 05/15/2021 12:00:00 AM EDT 2000 U Intramuscular active Inject 2,00 0 Units into the muscle 3 (three) times a week Inject 2000 units on Thursday, Thursday and Thursday, Max Daily Dose: 2,000 Units [facility] Clobetasol Propionate 0.5 MG/ML Topical Cream Clobetasol Propionate 0.05 % External Cream (TEMOVATE) Clobetasol Propionate 0.05 % External Cr eam (TEMOVATE) 04/01/2021 12:00:00 AM EDT active Apply to skin [facility] quetiapine 50 MG Oral Tablet QUEtiapine Fumarate 50 MG Oral Tablet (SEROquel) QUEtiapine Fumarate 50 MG Oral Tablet (SEROquel) 04/01/2021 12:00:00 AM EDT 50 mg Oral active Take 1 tablet by mouth n [facility] apixaban 2.5 MG Oral Tablet Apixaban 2.5 MG Oral Table t (ELIQUIS) Apixaban 2.5 MG Oral Tablet (ELIQUIS) 04/01/2021 12:00:00 AM EDT 2.5 mg Oral active Take 1 tablet by mouth Two Times Daily Indications: cl otting disorder [facility] omalizumab 150 MG Injection omalizumab (XOLAIR) inject ion 300 mg omalizumab (XOLAIR) injection 300 mg 03/29/2021 12:00:00 PM EDT 300 mg Subcuta neous active 300 mg, Subcutaneous , Every 28 days, First dose on Thu03/29/21 at 1200, For 30 days [facility] Medication administered onsite quetiapine 25 MG Oral Tablet QUEtiapine (SEROquel) tab let 50 mg QUEtiapine (SEROquel) tablet 50 mg 03/26/2021 10:00:00 PM EDT 50 mg Oral active 50 mg, Oral, Nightly, First dose on Thu03/26/21 at 2200, For 30 days [facility] Medication administered onsite Chorionic Gonadotropin 77604 UNT/ML Inje ctable Solution chorionic gonadotropin injection 2,000 Units chorionic gonadotropin injection 2,000 Units 11:00:00 AM EDT 2000 U Intramuscular active 2,000 Units, Intramuscular, Three times Weekly (Once per day on Thu), First dose on Thu03/25/21 at 1100, For 30 days [facility] Medication administered onsite Escitalopram 10 MG Oral Tablet escitalopram (LEXAPRO) tablet 20 mg escitalopram (LEXAPRO) tablet 20 mg 03/23/2021 09:00:00 AM EDT 20 mg Oral active 20 mg, Oral, Daily Standard, First dose on Thu03/23/21 at 0900, For 30 doses [facility] Medication administered onsite cetirizine hydrochloride 10 MG Oral Tablet cetirizine (ZYRTEC) tablet 10 mg cetirizine (ZYRTEC) tablet 10 mg 03/23/2021 09:00:00 AM EDT 10 mg Oral active 10 mg, Oral, Daily Standard, First dose on Thu03/23/21 at 0900, For 30 days [facility] Medication administered onsite POLYETHYLENE GLYCOL 3350 142 MG/ML Oral Solution polyethylene glycol (MIRALAX) packet 17 g polyethylene glycol (MIRALAX) packet 17 g 03/23/2021 0 9:00:00 AM EDT 17 g Oral active 17 g, Or al, Daily Standard, First dose on Thu03/23/21 at 0900, For 30 days
Mix in 8 ounces of water, juice or milk. Avoid use in patients who require thickened liquids due to potential increased risk for aspiration.
[facility] Medication administered onsite diphenhydrAMINE (BENADRYL) injection 50 mg [id number] 03/23/2021 06:45:00 AM EDT 50 mg Intramuscular completed 50 mg, Intramuscular, Once, On 03/23/21 at 0645, For 1 dose [facility] Medication administered onsite haloperidol lactate (HALDOL) injection 5 mg 32108-457-39 03/23/2021 06:45:00 AM EDT 5 mg Intramuscular completed 5 mg, Intramuscular, Once, On 03/23/21 at 0645, For 1 dose [facility] Medication administered onsite 1 ML Lorazepam 2 MG/ML Injection LORazepam (ATIVAN) in jection 2 mg LORazepam (ATIVAN) injection 2 mg 03/23/2021 06:45:00 AM EDT 2 mg Intramusc ular completed 2 mg, Intramuscular, Once, On Sa t 03/23/21 at 0645, For 1 dose [facility] Medication administered onsite apixaban 2.5 MG Oral Tablet apixaban (ELIQUIS) tablet 2.5 mg apixaban (ELIQUIS) tablet 2.5 mg 03/22/2021 09:00:00 PM EDT 2.5 mg Oral acti ve 2.5 mg, Oral, 2 Times Daily, Indications: clotting disorder, First dose on Thu03/22/21 at 2100, For 30 days [facility] Medication administered onsite Clobetasol Propionate 0.5 MG/ML Topical Cream clobetasol (TEMOVATE) 0.05 % cream clobetasol (TEMOVATE) 0.05 % cream 03/22/2021 09:00:00 PM EDT Topical active Topical, 2 Times Miri ly, First dose on Thu03/22/21 at 2100, For 30 days
Apply to affected area
[facility] Medication administered onsite Ondansetron 4 MG Disintegrating Oral Tab let ondansetron (ZOFRAN-ODT) disintegrating tablet 4 mg ondansetron (ZOFRAN-ODT) disintegrating tablet 4 mg 03/22/2021 03:43:19 PM EDT 4 mg Oral active 4 mg, Oral, Every 6 hours PRN, Nausea, Starting on Thu03/22/21 at 1543, For 30 days
Dissolve on tongue.
[facility] Medication administered onsite Hydroxyzine Hydrochloride 50 MG Oral Tablet hydrOXYzin e (ATARAX) tablet 50 mg hydrOXYzine (ATARAX) tablet 50 mg 03/22/2021 03:43:04 PM EDT 50 mg Oral active 50 mg, Oral, Every 6 hours PRN, Anxiety, Sleep, Starting on Thu03/22/21 at 1543, For 30 days [facility] Medication administered onsite acetaminophen (TYLENOL) tablet 650 [...] 30 days
MDD 4
[Order 3 End] [facility] Medication administered onsite Sodium Chloride 0.111 MEQ/ML Nasal Solut ion sodium chloride (OCEAN) 0.65 % nasal spray 2 spray sodium chloride (OCEAN) 0.65 % nasal spray 2 spray 03:39:25 PM EDT 2 {spray} Each Nare active 2 spray, Each Nare, PRN, Congestion, Other, Starting on Thu03/22/21 at 1539, For 30 days [facility] Medication administered onsite Chorionic Gonadotropin 09994 UNT/ML Inje ctable Solution chorionic gonadotropin injection 2,000 Units chorionic gonadotropin injection 2,000 Units 07:15:00 AM EDT 2000 U Intramuscular completed 2,000 Units, Intramuscular, Once, On Thu03/22/21 at 0715, For 1 dose [facility] Medication administered onsite Escitalopram 10 MG Oral Tablet escitalopram (LEXAPRO) tablet 20 mg escitalopram (LEXAPRO) tablet 20 mg 03/22/2021 07:15:00 AM EDT 20 mg Oral completed 20 mg, Oral, Once, On Thu03/22/21 at 0715, For 1 dose [facility] Medication administered onsite apixaban 2.5 MG Oral Tablet apixaban (ELIQUIS) tablet 2.5 mg apixaban (ELIQUIS) tablet 2.5 mg 03/22/2021 07:15:00 AM EDT 2.5 mg Oral completed Venous Thrombosis 2.5 mg, Oral, Once, Indicati ons: Venous Thrombosis, On Thu03/22/21 at 0715, For 1 dose [facility] Venous Thrombosis Medication administered onsite Acetaminophen 325 MG Oral Tablet acetaminophen (TYLENO L) tablet 650 mg acetaminophen (TYLENOL) tablet 650 mg 03/22/2021 06:45:00 AM EDT 65 0 mg Oral completed 650 mg, Oral, O nce, On Thu03/22/21 at 0645, For 1 dose
Maximum daily dose of acetaminophen is 3,000 mg from all sources in 24 hours.
[facility] Medication administered onsite Acetaminophen 325 MG Oral Tablet acetaminophen (TYLENO L) tablet 650 mg acetaminophen (TYLENOL) tablet 650 mg 03/22/2021 01:30:00 AM EDT 65 0 mg Oral completed 650 mg, Oral, O nce, On Thu03/22/21 at 0130, For 1 dose
Maximum daily dose of acetaminophen is 3,000 mg from all sources in 24 hours.
[facility] Medication administered onsite morphine sulfate (PF) injection 4 mg [id number] 03/21/2021 11:45: 00 PM EDT 4 mg Intravenous completed 4 mg, In travenous, Once, On Thu03/21/21 at 2345, For 1 dose [facility] Medication administered onsite iohexol (OMNIPAQUE) 300 MG/ML contrast injection 100 mL [id number] 03/21/2021 11:15:00 PM EDT 100 mL Given by IV completed 100 mL, Given by IV, 1 TIME IMAGING, On Thu03/21/21 at 2315, For 1 dose [facility] Medication administered onsite Cholecalciferol 1000 UNT Oral Tablet vit hermosillo D3 (CHOLECALCIFEROL) tablet 1,000 Units vitamin D3 (CHOLECALCIFEROL) tablet 1,000 Units 2020 08:00:00 AM EDT 1000 U Oral active 1,000 Un its, Oral, Daily Standard, First dose on Thu03/08/21 at 0800, For 30 days
25 mcg vitamin D3 = 1,000 international units vitamin D3.
[facility] Medication administered onsite Phenazopyridine hydrochloride 200 MG Del ayed Release Oral Tablet Phenazopyridine HCl 200 MG Oral Tablet (PYRIDIUM) Phenazopyridine HCl 200 MG Oral Tablet (PYRIDIUM) 03/08/2021 12:00:00 AM EDT 200 mg Oral active Take 1 tablet by mouth Three times daily with meals for 3 days [facility] Phenazopyridine hydrochloride 200 MG Del ayed Release Oral Tablet phenazopyridine (PYRIDIUM) tablet 200 mg phenazopyridine (PYRIDIUM) tablet 200 mg 03/07/2021 08:00:00 AM EDT 200 mg Oral active 200 mg, Oral, Three Times Daily- With Meals, First dose on Thu03/07/21 at 0800, For 2 days [facility] Medication administered onsite Sulfamethoxazole 800 MG / Trimethoprim 1 60 MG Oral Tablet sulfamethoxazole- trimethoprim (BACTRIM DS) 800-160 MG per tablet 1 tablet sulfamethoxazole- trimethoprim (BACTRIM DS) 800-160 MG per tablet 1 tablet 03/07/2021 08:00:00 AM EDT 1 {tbl} Oral aborted 1 tablet , Oral, Every 12 hours Standard (2 times per day), First dose on Thu03/07/21 at 0800, For 7 days [facility] Medication administered onsite Escitalopram 10 MG Oral Tablet escitalopram (LEXAPRO) tablet 20 mg escitalopram (LEXAPRO) tablet 20 mg 03/07/2021 08:00:00 AM EDT 20 mg Oral active 20 mg, Oral, Daily Standard, First dose on Thu03/07/21 at 0800, For 30 days [facility] Medication administered onsite multivitamin tablet 1 tablet [id number] 03/07/2021 08:00:00 AM EDT 1 {tbl} Oral active 1 tablet, Oral , Daily Standard, First dose on Thu03/07/21 at 0800, For 30 days [facility] Medication administered onsite apixaban 2.5 MG Oral Tablet apixaban (ELIQUIS) tablet 2.5 mg apixaban (ELIQUIS) tablet 2.5 mg 03/07/2021 08:00:00 AM EDT 2.5 mg Oral active Venous Thrombosis 2.5 mg, Oral, 2 Times Daily, Indications: Venous Thrombosis, First dose on Thu03/07/21 at 0800, For 30 days [facility] Venous Thrombosis Medication administered onsite Hydroxyzine Hydrochloride 50 MG Oral Tablet hydrOXYzin e (ATARAX) tablet 50 mg hydrOXYzine (ATARAX) tablet 50 mg 03/07/2021 01:59:51 AM EDT 50 mg Oral active 50 mg, Oral, Every 6 hours PRN, Anxiety, Sleep, Starting on Danna 03/07/21 at 0159, For 30 days [facility] Medication administered onsite Melatonin 5 MG Oral Tablet melatonin tablet 5 mg melatonin t ablet 5 mg 03/07/2021 01:59:43 AM EDT 5 mg Oral active 5 mg, Oral, Nightly PRN, Sleep, Starting on Danna 03/07/21 at 0159, For 30 days [facility] Medication administered onsite Aluminum Hydroxide 40 MG/ML [...] at 0159, For 30 days
MDD 4
[facility] Medication administered onsite Ondansetron 4 MG Disintegrating Oral Tab let ondansetron (ZOFRAN-ODT) disintegrating tablet 4 mg ondansetron (ZOFRAN-ODT) disintegrating tablet 4 mg 03/07/2021 01:59:29 AM EDT 4 mg Oral active 4 mg, Oral, Every 6 hours PRN, Nausea, Starting on Danna 03/07/21 at 0159, For 30 days
Dissolve on tongue.
[facility] Medication administered onsite Magnesium Hydroxide 80 MG/ML [...] creatinine > 2 notify provider before administering.
[facility] Medication administered onsite Acetaminophen 325 MG Oral Tablet acetaminophen (TYLENO L) tablet 650 mg acetaminophen (TYLENOL) tablet 650 mg 03/07/2021 01:59:13 AM EDT 65 0 mg Oral active 650 mg, Oral, E very 4 hours PRN, Mild Pain (Pain Scale Score 1- 3), Headaches, Starting on Danna 03/07/21 at 0159, For 30 days
MDD 4
[facility] Medication administered onsite Chorionic Gonadotropin 96761 UNT/ML Inje ctable Solution Chorionic Gonadotropin 30718 UNIT Intramuscular Solution Reconstituted Chorionic Gonadotropin 55322 UNIT Intramuscular Solution Reconstituted 02/27/2021 12:00:00 AM EDT 2000 U Intramuscular active Inject 2,00 0 Units into the muscle 3 (three) times a week Inject 2000 units on Thursday, Thursday and Thursday, Max Daily Dose: 2,000 Units [facility] Syringe 22G X 1" 3 ML [id number] 02/27/2021 12:00:00 AM EDT active Use as directed. Use to inject chorionic gonadatropin [facility] 800 mg 01/18/2021 12:00:00 AM EST tablet [...] TONGUE THREE TIMES A DAY SOLD: 01/18/2021 [facility] 100 mg 01/14/2021 12:00:00 AM [...] active [facility] (Dylan Shi MD) Chorionic Gonadotropin 45305 UNT/ML Inje ctable Solution Chorionic Gonadotropin 82929 UNIT Intramuscular Solution Reconstituted Chorionic Gonadotropin 39230 UNIT Intramuscular Solution Reconstituted 11/28/2020 12:00:00 AM EST 2000 U Intramuscular active Inject 2,00 0 Units into the muscle 3 (three) times a week Inject 2000 units on Thursday, Thursday and Thursday, Max Daily Dose: 2,000 Units [facility] Escitalopram 20 MG Oral Tablet Escitalopram Oxalate 20 MG Oral Tablet (LEXAPRO) Escitalopram Oxalate 20 MG Oral Tablet (LEXAPRO) 11/07/2020 12:00:00 AM EST 20 mg Oral active Take 20 mg by mouth [facility] apixaban 5 MG Oral Tablet Apixaban 5 MG Oral Tablet (E liquis) Apixaban 5 MG Oral Tablet (Eliquis) 11/07/2020 12:00:00 AM EST abort [facility] Trazodone Hydrochloride 50 MG Oral Table t traZODone HCl 50 MG Oral Tablet (DESYREL) traZODone HCl 50 MG Oral Tablet (DESYREL) 11/07/2020 12:00:0 0 AM EST 50 mg Oral aborted Take 50 mg by mo [facility] Divalproex Sodium 250 MG Delayed Release Oral Tablet Divalpr oex Sodium 11/07/2020 12:00:00 AM EST active [facility] (Dylan Shi MD) Lidocaine 40 MG/ML Topical Cream Lidocaine 11/07/2020 12:00:00 AM EST active [facility] (Dylan Shi MD) Escitalopram 20 MG Oral Tablet Escitalopram Oxalate 11/07/2020 1 2:00:00 AM EST active [facility] ( Dylan Shi MD) Methocarbamol 500 MG Oral Tablet Methocarbamol 11/07/2020 12:00:00 AM EST active [facility] (Dylan hSi MD) Trazodone Hydrochloride 50 MG Oral Tablet [...] LIDOCAINE PATCH EX 11/07/2020 12:00:00 AM EST [facility] Risperidone 1 MG Oral Tablet Risperidone 11/07/2020 12:00:00 AM EST active [facility] (Dylan Shi MD) Ivermectin 3 MG Oral Tablet Ivermectin 11/07/2020 12:00:00 AM EST active [facility] (Dylan Shi MD) Xolair 150 MG/ML Xolair 150 MG/ML 10/19/2020 12:00:00 AM EST active Xolair 150 MG/ML [facility] ([facility]) Xolair 150 MG/ML Xolair 150 MG/ML 10/19/2020 12:00:00 AM EST active Xolair 150 MG/ML eCW1 ([facility]) Xolair 150 MG/ML Xolair 150 MG/ML 10/19/2020 12:00:00 AM EST active Xolair 150 MG/ML eCW1 ([facility]) Acetaminophen 325 MG / Hydrocodone Migdalia trate 5 MG Oral Tablet HYDROcodone- Acetaminophen 5-325 MG Oral Tablet (LORTAB) HYDROcodone-Acetaminophen 5-325 MG Oral Tablet (LORTAB) 1 {tbl} Oral aborted Take 1 tablet by mouth every 6 (six) hours as needed for Pain [facility] Naproxen 500 MG Oral Tablet Naproxen 500 MG Oral Table t (NAPROSYN) Naproxen 500 MG Oral Tablet (NAPROSYN) 500 mg Oral aborted Take 500 mg by mouth Two times daily with meals [facility] Escitalopram 10 MG Oral Tablet Escitalopram Oxalate 10 MG Oral Tablet (LEXAPRO) Escitalopram Oxalate 10 MG Oral Tablet (LEXAPRO) aborted 1 tablet [facility] Divalproex Sodium 250 MG Delayed Release Oral Tablet Divalproex Sodium 250 MG Oral Tablet Delayed Release (DEPAKOTE) Divalproex Sodium 250 MG Oral Tablet Delayed Release (DEPAKOTE) aborted 1 tablet [facility] Ivermectin 10 MG/ML Topical Cream Ivermectin 1 % Exter nal Cream Ivermectin 1 % External Cream Apply externally aborted Apply topically [facility] Acetaminophen 500 MG Oral Tablet Acetaminophen 500 MG Oral Tablet (TYLENOL) Acetaminophen 500 MG Oral Tablet (TYLENOL) 500 mg Oral aborted Take 500 mg by mouth every 6 (six) hours as needed for Pain [facility] Insurance Providers Payer name Policy type / Coverage type Policy ID Covered alliance party ID Covered alliance party's relationship to puente Policy Puente Plan Information [employer] [id number] SP [id number] U [id number] Self [id number] U [id number] Self [id number] U [id number] Self [id number] [employer] [id number] SP [id number] [employer] [id number] SP [id number] S[employer] [id number] SP [id number] [employer] [id number] S [id number] [facility] [id number] S [id number] [facility]/P [id number] 18 [id number] [facility] [place] [id number] 18 [id number] [facility] [id number] 18 [id number] [facility] [id number] 18 [id number] [facility] ACTIVE DUTY [id number] SP [id number] [facility] [id number] 18 [id number] Problems, Conditions, and Diagnoses Code Display Name Description Problem Type Effective Dates Data Source(s) Z17720 Personal history of other venous thrombo sis and embolism Personal history of other venous thrombosis and embolism Diagnosis 08/13/2021 04:52:00 PM EDT [facility] 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.4 Klinefelter syndrome, unspecified KLINEFELTER SY NDROME, UNSPECIFIED Diagnosis 08/02/2021 02:38:00 PM EDT [facility] E22.1 Hyperprolactinemia HYPERPROLACTINEMIA Diagnosis 02:38:00 PM EDT [facility] Z8719 Personal history of other diseases of th e digestive system Personal history of other diseases of the digestive system Diagnosis 07/2021 04:01:00 AM [facility] I10 Essential (primary) hypertension Essential (primary) h ypertension Diagnosis 07/18/2021 04:01:00 AM [facility] K219 Gastro-esophageal reflux disease without esophagitis Gastro-esophageal reflux disease without esophagitis Diagnosis 07/18/2021 04:01:00 AM ED [facility] G8929 Other chronic pain Other chronic pain Diagnosis 07/2021 04:01:00 AM T [facility] I880 Nonspecific mesenteric lymphadenitis Nonspecific mesenteric lymphadenitis Diagnosis 07/18/2021 04:01:00 AM [facility] R1012 Left upper quadrant pain Left upper quadrant pain Diag nosis 07/18/2021 04:01:00 AM [facility] 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 Diagnosis 06/10/2021 11:30:00 AM [facility] R1013 Epigastric pain Epigastric pain Diagnosis 06/10/2021 11:3 0:00 AM [facility] Infertility male Infertility male Diagnosis 05/30/2021 12 :46:51 PM [facility] SEMEN ANALYSIS SEMEN ANALYSIS Diagnosis 05/30/2021 12:00: 00 AM [facility] R112 Nausea with vomiting, unspecified Nausea with vo miting, unspecified Diagnosis 05/06/2021 11:04:00 AM [facility] R1084 Generalized abdominal pain Generalized abdominal pain Diagnosis 05/06/2021 11:04:00 AM [facility] E860 Dehydration Dehydration Diagnosis 05/05/2021 03:26:00 AM [facility] E876 Hypokalemia Hypokalemia Diagnosis 05/05/2021 03:26:00 AM [facility] K529 Noninfective gastroenteritis and colitis , unspecified Noninfective gastroenteritis and colitis, unspecified Diagnosis 05/05/2021 03:26:00 AM [facility] R69 Illness, unspecified Illness, unspecified Diagnosis 03/21/2021 09:56:00 PM [facility] ca v tree ca v tree Diagnosis 03/21/2021 09:56:00 PM [facility] F32.9 Major depressive disorder, single episod e, unspecified Major depressive disorder, single episode, unspecified Diagnosis 03/07/2021 01:28:00 AM [facility] 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, 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, 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 03/07/2021 01:28:00 AM [facility] R8290 Unspecified abnormal findings in urine U nspecified abnormal findings in urine Diagnosis 03/01/2021 10:45:00 AM [facility] M545 Low back pain Low back pain Diagnosis 03/01/2021 10:45:00 AM [facility] N469 Male infertility, unspecified Male infertility, unspec ified Diagnosis 03/01/2021 10:45:00 AM [facility] R300 Dysuria Dysuria Diagnosis 03/01/2021 10:45:00 AM ED [facility] 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 Ot her inflammatory disorders of penis Diagnosis 03/01/2021 10:45:00 AM EDT [facility] R42 Dizziness and giddiness Dizziness and giddiness Diagno sis 03/01/2021 10:45:00 AM EDT [facility] R350 Frequency of micturition Frequency of micturition Diag nosis 03/01/2021 10:45:00 AM EDT [facility] R1032 Left lower quadrant pain Left lower quadrant pain Diag nosis 03/01/2021 10:45:00 AM EDT [facility] R319 Hematuria, unspecified Hematuria, unspecified Diagnosi s 03/01/2021 10:45:00 AM EDT [facility] N130 Hydronephrosis with ureteropelvic juncti on obstruction Hydronephrosis with ureteropelvic junction obstruction Diagnosis 03/01/2021 10:45:00 AM ED T [facility] [id number] alf (current) use of opiate analge sic alf (current) use of opiate analgesic Diagnosis 02/15/2021 11:50:00 AM EDT [facility] N23 Unspecified renal colic Unspecified renal colic Diagno sis 02/15/2021 11:50:00 AM EDT [facility] R102 Pelvic and perineal pain Pelvic and perineal pain Diag nosis 02/15/2021 11:50:00 AM EDT [facility] R310 Gross hematuria Gross hematuria Diagnosis 02/12/2021 01:0 4:00 PM EDT [facility] F3289 Other specified depressive episodes Other specif ied depressive episodes Diagnosis 02/05/2021 02:40:00 PM EDT [facility] F87126 Acute embolism and thrombosi s of unspecified deep veins of unspecified lower extremity Acute embolism and thrombosis of unspeci fied deep veins of unspecified lower extremity Diagnosis 02/05/2021 02:40:00 PM EDT [facility] Z960 Presence of urogenital implants Presence of urogenital implants Diagnosis 01/18/2021 01:23:00 PM [facility] X08664 Personal history of urinary calculi Personal his tory of urinary calculi Diagnosis 01/18/2021 01:23:00 PM [facility] [id number] Pain in left leg Pain in left leg Diagnosis 01/15/2021 12 :37:00 PM [facility] N5312 Painful ejaculation Painful ejaculation Diagnosis 0 01/15/2021 12:37:00 PM [facility] R109 Unspecified abdominal pain Unspecified abdominal pain Diagnosis 01/13/2021 10:28:00 AM [facility] N131 Hydronephrosis with ureteral stricture, not elsewhere classified Hydronephrosis with ureteral stricture, not elsewhere classified Diagnosis 01/11/2021 11:00:00 AM [facility] [id number] Encounter for other preprocedural examin ation Encounter for other preprocedural examination Diagnosis 01/01/2021 03:00:00 PM [facility] N132 Hydronephrosis with renal and ureteral c alculous obstruction Hydronephrosis with renal and ureteral calculous obstruction Diagnosis 021 11:29:00 AM [facility] I313 Pericardial effusion (noninflammatory) P ericardial effusion (noninflammatory) Diagnosis 12/19/2020 09:11:00 AM [facility] L089 Local infection of the skin and subcutan eous tissue, unspecified Local infection of the skin and subcutaneous tissue, unspecified Diagnosis 12/01/2020 02:50:00 PM [facility] Z6831 Body mass index [BMI] 31.0-31.9, adult B jm mass index [BMI] 31.0-31.9, adult Diagnosis 12/01/2020 02:50:00 PM [facility] E669 Obesity, unspecified Obesity, unspecified Diagnosis 12/01/2020 02:50:00 PM [facility] R55 Syncope and collapse Syncope and collapse Diagnosis 12/01/2020 02:50:00 PM [facility] 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, lumbar region Intervertebral disc disorders with radiculopathy, lumbar region Diagnosis 11/19/2020 02:16:00 PM [facility] R3121 Asymptomatic microscopic hematuria Asymptomatic microscopic hematuria Diagnosis 10/19/2020 10:32:00 AM [facility] Y9289 Other specified places as the place of o ccurrence of the external cause Other specified places as the place of occurrence of the external cause Diagnosis 09/17/2020 08:46:00 AM [facility] [id number] Overexertion from strenuous movement or load, initial encounter Overexertion from strenuous movement or load, initial encounter Diagnosis 09/17/2020 08:46:00 AM [facility] [id number] Strain of muscle, fascia and tendon of l ower back, initial encounter Strain of muscle, fascia and tendon of lower back, initial encounter Diagnosis 09/17/2020 08:46:00 AM [facility] G47.33 Obstructive sleep apnea syndrome Obstructive sle ep apnea syndrome Problem 08/08/2021 12:00:00 AM EDT [facility] ([facility]) L50.2 Urticaria due to cold and heat Urticaria due to cold a nd heat Problem 08/08/2021 12:00:00 AM EDT [facility] ([facility]) Z86.718 History of thromboembolism of vein History of th romboembolism of vein Problem 08/08/2021 12:00:00 AM EDT [facility] ([facility]) N46.9 Male infertility Male infertility Problem 02/05/2021 12 :00:00 AM EDT [facility] ([facility]) F32.89 Depressive disorder Depressive disorder Problem 0 02/05/2021 12:00:00 AM EDT [facility] ([facility]) I82.409 Embolism from thrombosis of vein of dist al lower extremity Embolism from thrombosis of vein of distal lower extremity Problem 02/06/20 12:00:00 AM EDT [facility] ([facility]) N13.0 Hydronephrosis with ureteropelvic juncti on obstruction Hydronephrosis with ureteropelvic junction obstruction Problem 02/05/2021 12:00:00 AM E DT [facility] ([facility]) R31.0 Tom hematuria Tom hematuria Problem 02/05/2021 12:0 0:00 AM EDT [facility] ([facility]) R10.9 Abdominal pain Abdominal pain Problem 01/23/2021 12:00: 00 AM EDT [facility] ([facility]) Surgeries/Procedures Procedure Description Date Indications Data Source(s) OFFICE OUTPATIENT NEW 45 MINUTES 09/26/2021 12:00:00 A [facility] ([facility] ) OFFICE OUTPATIENT VISIT 15 MINUTES 08/08/2021 12:00:00 AM [facility] ([facility]) [facility] outpatient clinic visit for assessment and ma nagement of a patient Hospital Outpatient Clinic Visit 08/02/2021 12:00:00 AM [facility] THYROXINE FREE ASSAY OF FREE THYROXINE 08/02/2021 12:00:00 AM [facility] THYROID STIMULATING HORMONE TSH ASSAY THYROID STIM HORMONE 0 08/02/2021 12:00:00 AM [facility] COLLECTION VENOUS BLOOD VENIPUNCTURE ROUTINE VENIPUNCTURE 12:00:00 AM [facility] PROLACTIN ASSAY OF PROLACTIN 08/02/2021 12:00:00 AM [facility] GONADOTROPIN LUTEINIZING HORMONE ASSAY OF GONADOTROPIN (LH) 08/02/2021 12:00:00 AM [facility] GONADOTROPIN FOLLICLE STIMULATING HORMONE ASSAY OF GONADOTRO PIN (FSH) 08/02/2021 12:00:00 AM [facility] OFFICE OUTPATIENT VISIT 10 MINUTES 06/18/2021 12:00:00 AM [facility]) BLOOD COUNT HEMATOCRIT <td>HEMATOCRIT</td><td>Routi ne</td><td>05/30/2021 2:15 PM EDT</td><td> Infertility male</td><td> </td> 05/30/2021 02:15:00 PM EDT [facility] Infertility male PROSTATE SPECIFIC ANTIGEN TOTAL <td>PSA</td><td>Routin e</td><td>05/30/2021 2:15 PM EDT</td><td> Infertility male</td><td> </td> 05/30/2021 02:15:00 PM EDT [facility] Infertility male ANDROLOGY <td>ANDROLOGY</td><td>Routin e</td><td>05/30/2021 12:59 PM EDT</td><td> Infertility male</td><td> </td> 05/30/2021 12:59:00 PM EDT Infertility male [facility] Infertility male RESPIRATORY PATHOGEN PANEL <td>RESPIRATORY PATHOGEN PANEL</td><td>Routine</td><td>03/22/2021 2:05 AM EDT</td><td></td><td> </td> 03/22/2021 02:05:00 AM EDT [facility] COVID-19 PCR <td>COVID-19 PCR</td><td>Rou orion</td><td>03/22/2021 2:05 AM EDT</td><td></td><td> </td> 03/22/2021 02:05:00 AM EDT [facility] RADEX SHOULDER COMPLETE MINIMUM 2 VIEWS <td>XR SHOULDE R MIN 2 VIEWS [place] 44202</td><td>CODE</td><td>03/22/2021 12:07 AM EDT</td><td> Diagnosis unknown</td><td> </td> 03/22/2021 12:07:00 AM EDT Diagnosis unknown [facility] Diagnosis unknown CT LUMBAR SPINE W/O CONTRAST MATERIAL <td>CT LUMBAR SP INE WITHOUT CONTRAST [id number]</td><td>STAT</td><td>03/21/2021 11:59 PM EDT</td><td></td><td> </td> 03/21/2021 11:59:51 PM EDT [facility] CT THORACIC SPINE W/O CONTRAST MATERIAL <td>CT THORACI C SPINE WITHOUT CONTRAST [id number]</td><td>CODE</td><td>03/21/2021 11:59 PM EDT</td><td></td><td> </td> 03/21/2021 11:59:51 PM [facility] CT THORAX W/CONTRAST MATERIAL <td>CT THORAX WITH CONTR AST [id number]</td><td>CODE</td><td>03/21/2021 11:59 PM EDT</td><td></td><td> </td> 03/21/2021 11:59:04 PM [facility] CT ABDOEN & PELVIS W/CONTRAST MATERIAL <td>CT ABDOMEN PELVIS WITH CONTRAST [id number]</td><td>CODE</td><td>03/21/2021 11:59 PM EDT</td><td></td><td> </td> 03/21/2021 11:59:04 [address] [facility] CT CERVICAL SPINE W/O CONTRAST MATERIAL <td>CT CERVICA L SPINE WITHOUT CONTRAST [address]</td><td>CODE</td><td>03/21/2021 11:44 PM EDT</td><td></td><td> </td> 03/21/2021 11:44:00 PM [facility] CT HEAD/BRAIN W/O CONTRAST MATERIAL <td>CT HEAD WITHOU T CONTRAST 62200</td><td>CODE</td><td>03/21/2021 11:44 PM EDT</td><td></td><td> </td> 03/21/2021 11:44:00 PM [facility] EKG ED PHYSICIAN INTERPRETATION <td>EKG ED PHYSICIAN INTERPRETATION</td><td>Routine</td><td>03/21/2021 11:22 PM EDT</td><td></td><td> </td> 03/21/2021 11:22:55 PM [facility] EKG 12-LEAD - CMAXX REPORT <td>EKG 12-LEAD - CMAXX REPORT</td><td></td><td>03/21/2021 11:18 PM EDT</td><td></td><td></td> 03/21/2021 11:18:43 PM [facility] EKG 12-LEAD - CMAXX REPORT <td>EKG 12-LEAD - CMAXX REPORT</td><td></td><td>03/21/2021 11:18 PM EDT</td><td></td><td></td> 03/21/2021 11:18:43 PM [facility] EKG 12-LEAD <td>EKG 12-LEAD</td><td>STAT </td><td>03/21/2021 11:18 PM EDT</td><td></td><td> </td> 03/21/2021 11:18:43 PM [facility] EKG 12-LEAD - CMAXX REPORT <td>EKG 12-LEAD - CMAXX REPORT</td><td></td><td>03/21/2021 11:18 PM EDT</td><td></td><td></td> 03/21/2021 11:18:00 PM [facility] XR CHEST FRONTAL ONLY 21365 <td>XR CHEST FRONTAL ONLY 23992</td><td>STAT</td><td>03/21/2021 10:36 PM EDT</td><td> Diagnosis unknown</td><td> </td> 03/21/2021 10:36:00 PM EDT Diagnosis unknown [facility] Diagnosis unknown TROPONIN QUANTITATIVE <td>POCT ISTAT TROPONIN</td> <td>Routine</td><td>03/21/2021 10:28 PM EDT</td><td></td><td> </td> 03/21/2021 10:28:00 PM [facility] BASIC METABOLIC PANEL CALCIUM IONIZED <td>POCT ISTAT CHEM8</td><td>Routine</td><td>03/21/2021 10:26 PM EDT</td><td></td><td> </td> 03/21/2021 10:26:00 PM [facility] BLOOD GASES ANY COMBINATION PH PCO2 PO2 CO2 HCO3 <td>P OCT ISTAT VBG/LAC</td><td>Routine</td><td>03/21/2021 10:23 PM EDT</td><td></td><td> </td> 03/21/2021 10:23:00 PM [facility] DRUGS OF ABUSE, URINE <td>DRUGS OF ABUSE, URINE</t d><td>CODE</td><td>03/21/2021 10:22 PM EDT</td><td></td><td> </td> 03/21/2021 10:22:00 PM [facility] THROMBOPLASTIN TIME PARTIAL PLASMA/WHOLE BLOOD <td>PAR TIAL THROMBOPLASTIN TIME (PTT)</td><td>CODE</td><td>03/21/2021 10:22 PM EDT</td><td></td><td> </td> 03/21/2021 10:22:00 PM [facility] ACETAMINOPHEN, RANDOM <td>ACETAMINOPHEN, RANDOM</t d><td>CODE</td><td>03/21/2021 10:22 PM EDT</td><td></td><td> </td> 03/21/2021 10:22:00 PM [facility] ETHYL ALCOHOL LEVEL <td>ETHYL ALCOHOL LEVEL</td> <td>CODE</td><td>03/21/2021 10:22 PM EDT</td><td></td><td> </td> 03/21/2021 10:22:00 PM [facility] URNLS DIP STICK/TABLET REAGENT AUTO MICROSCOPY <td>URI NALYSIS WITH MICROSCOPIC</td><td>CODE</td><td>03/21/2021 10:22 PM EDT</td><td></td><td> </td> 03/21/2021 10:22:00 PM [facility] PROTHROMBIN TIME <td>PROTIME INR</td><td>CODE </td><td>03/21/2021 10:22 PM EDT</td><td></td><td> </td> 03/21/2021 10:22:00 PM [facility] FIBRINOGEN ACTIVITY <td>FIBRINOGEN LEVEL</td><td >CODE</td><td>03/21/2021 10:22 PM EDT</td><td></td><td> </td> 03/21/2021 10:22:00 PM [facility] BLOOD COUNT COMPLETE AUTO&AUTO DIFRNTL WBC COUNT <td>C BC AND DIFFERENTIAL</td><td>CODE</td><td>03/21/2021 10:22 PM EDT</td><td></td><td> </td> 03/21/2021 10:22:00 PM [facility] BLOOD TYPING ABO <td>TYPE AND SCREEN</td><td> Routine</td><td>03/21/2021 10:22 PM EDT</td><td></td><td> </td> 03/21/2021 10:22:00 PM [facility] LIPASE <td>LIPASE LEVEL</td><td>COD E</td><td>03/21/2021 10:22 PM EDT</td><td></td><td> </td> 03/21/2021 10:22:00 PM [facility] SALICYLATE LEVEL <td>SALICYLATE LEVEL</td><td >CODE</td><td>03/21/2021 10:22 PM EDT</td><td></td><td> </td> 03/21/2021 10:22:00 PM [facility] HEPATIC FUNCTION PANEL <td>HEPATIC FUNCTION PANEL A</td><td>Routine</td><td>03/21/2021 10:22 PM EDT</td><td></td><td> </td> 03/21/2021 10:22:00 PM [facility] BASIC METABOLIC PANEL CALCIUM TOTAL <td>BASIC METABOLI C PANEL</td><td>CODE</td><td>03/21/2021 10:22 PM EDT</td><td></td><td> </td> 03/21/2021 10:22:00 PM [facility] URNLS DIP STICK/TABLET REAGENT AUTO MICROSCOPY <td>URI NALYSIS WITH MICROSCOPIC</td><td>Routine</td><td>03/07/2021 7:48 AM EDT</td><td></td><td> </td> 03/07/2021 07:48:00 AM [facility] 25 HYDROXY INCLUDES FRACTIONS IF PERFORMED <td>VITAMIN D 25 HYDROXY, TOTAL</td><td>Routine</td><td>03/07/2021 6:09 AM EDT</td><td></td><td> </td> 03/07/2021 06:09:00 AM [facility] HEMOGLOBIN GLYCOSYLATED A1C <td>HEMOGLOBIN A1C</td><td>Routine</td><td>03/07/2021 6:09 AM EDT</td><td></td><td> </td> 03/07/2021 06:09:00 AM EDT [facility] LIPID PANEL <td>LIPID PANEL</td><td>Rout ine</td><td>03/07/2021 6:09 AM EDT</td><td></td><td> </td> 03/07/2021 06:09:00 AM [facility] OFFICE OUTPATIENT VISIT 10 MINUTES 02/12/2021 12:00:00 AM EDT [facility] ([facility]) OFFICE OUTPATIENT VISIT 15 MINUTES 02/05/2021 12:00:00 AM EDT [facility] ([facility]) OFFICE OUTPATIENT VISIT 25 MINUTES 01/23/2021 12:00:00 AM EDT [facility] ([facility]) OFFICE OUTPATIENT VISIT 10 MINUTES 01/15/2021 12:00:00 AM EST [facility] ([facility]) THERAPEUTIC PROPHYLACTIC/DX INJECTION SUBQ/IM 01/11/20 12:00:00 AM EST [facility] (Dylan Shi MD) ANDROLOGY <td>ANDROLOGY</td><td>Routin e</td><td>01/07/2021 12:00 AM EST</td><td></td><td> </td> 01/07/2021 12:00:00 AM [facility] ECG ROUTINE ECG W/LEAST 12 LDS W/I&R 11/07/2020 12:00: 00 AM EST [facility] (Dylan Shi MD) CV STRS TST XERS&/OR RX CONT ECG PHYS SI&R 11/07/2020 12:00:00 AM EST [facility] (Dylan Shi MD) ECHO TTHRC R-T 2D W/WOM-MODE COMPL SPEC&COLR DOP 11/07 12:00:00 AM EST [facility] (Dylan Shi MD) Brief Emotional/Behav Assessment W/ Scoring Doc Per Standard Inst 09/07/2020 12:00:00 AM EDT [facility] ([facility]) Admin Patient Focused Health Risk Assessment Instrument 09/07/2020 12:00:00 AM EDT [facility] ([facility]) Results ID Date Data Source [id number] 10/07/2021 11:02:00 AM EST [facility] Name Value Range Interpretation Code Description Data Marifer rce(s) Supporting Document(s) SARS coronavirus 2 RNA Not Detected [facility] This lab was ordered by [facility] and reported by [facility]. ID Date Data Source [id number] 09/30/2021 10:45:00 AM EST [facility] ([facility] ) Name Value Range Interpretation Code Description Data Marifer rce(s) Supporting Document(s) Helicobacter pylori Ag [Presence] in Stool Laboratory test resul t Normal (applies to non-numeric results) [facility] ([facility] ) Performed at: RN - [facility] [place] [id number] Supervisor Weaving: Kelley Wilson MD, Phone: [phone] ID Date Data Source [id number] 09/19/2021 11:51:01 AM EST [facility] Name Value Range Interpretation Code Description Data Marifer rce(s) Supporting Document(s) Progress Note [facility] WLDTUg5eAnGWAoMm23/[id number]ZM3aD9oIEJ0TEdLPtJgZbLfKWVk lbm [file] [id number]== ID Date Data Source [id number] 09/17/2021 10:58:34 AM EST [facility] Name Value Range Interpretation Code Description Data Marifer rce(s) Supporting Document(s) Progress Note [facility] GEAMIg0kGiNPSmPz49/COLugYWWyk9RnUScnMXi5FFhbQBDfC0IiXZS4bT1lSJM4WAeZEzIzZnQsKBP7 lbm [file] [id number]= ID Date Data Source [id number] 08/14/2021 12:16:00 [place] [address] PHONE: [phone] FAX: [phone] Name .................. : TOSIN WONG Nicole Acct Number.................. : [id number] ROOM. ................. : MR Number ................... : [id number] Stay type ............. : O/P Discharge Date......... ... : 08/13/21 Admit Date ......... : 08/13/21 Admit Phys .................... : KIA Date of ....... : 1990 Family Phys ................... : NON STAFF Phone .................. : [phone] Age ................................ : 31 Film# .................. .:[id number] Sex ................................. : M Unsigned transcriptions are preliminary reports and do not represent a medical or legal document DOPPLER UNILATERAL VENOUS [id number] COMPLETE:08/13/21 17:00 [id number] Reason for Exam: HX OF DVT ULTRASOUND [...] rce(s) Supporting Document(s) ID Date Data Source [id number] 08/09/2021 10:47:00 AM EDT [facility]) Name Value Range Interpretation Code Description Data Marifer rce(s) Supporting Document(s) Anticardiolipin Ab,IgG,Qn Laboratory test result 0-14 [facility] ([facility]) .~.~<DG1.3.1>Z86.718</DG1.3.1><DG1.3.1>Z86.718</DG1.3.1><DG1.3.1>Z86.718</DG1.3. 1><D Anticardiolipin Ab,IgM,Qn 16 MPLU/mL 0-12 Above high normal [facility] ([facility]) .~.~<DG1.3.1>Z86.718</DG1.3.1><DG1.3.1>Z86.718</DG1.3.1><DG1.3.1>Z86.718</DG1.3. 1><D ID Date Data Source [id number] 08/09/2021 10:47:00 AM EDT [facility] ([facility]) Name Value Range Interpretation Code Description Data Marifer rce(s) Supporting Document(s) Dilute ProthrombinTime(dPT) 42.4 sec 0.0-55.0 [facility] ([facility]) .~.~<DG1.3.1>Z86.718</DG1.3.1><DG1.3.1>Z86.718</DG1.3.1><DG1.3.1>Z86.718</DG1.3. 1><D Thrombin Time 19.0 sec 0.0-23.0 [facility] ([facility]) .~.~<DG1.3.1>Z86.718</DG1.3.1><DG1.3.1>Z86.718</DG1.3.1><DG1.3.1>Z86.718</DG1.3. 1><D dPT Confirm Ratio 1.31 Ratio 0.00-1.40 [facility] ([facility]) .~.~<DG1.3.1>Z86.718</DG1.3.1><DG1.3.1>Z86.718</DG1.3.1><DG1.3.1>Z86.718</DG1.3. 1><D PTT-LA 31.8 sec 0.0-51.9 [facility] ([facility]) .~.~<DG1.3.1>Z86.718</DG1.3.1><DG1.3.1>Z86.718</DG1.3.1><DG1.3.1>Z86.718</DG1.3. 1><D dRVVT 41.8 sec 0.0-47.0 [facility] ([facility]) .~.~<DG1.3.1>Z86.718</DG1.3.1><DG1.3.1>Z86.718</DG1.3.1><DG1.3.1>Z86.718</DG1.3. 1><D Lupus ReflexInterpretation Laboratory test result [facility] ([facility]) .~.~<DG1.3.1>Z86.718</DG1.3.1><DG1.3.1>Z86.718</DG1.3.1><DG1.3.1>Z86.718</DG1.3. 1><D ID Date Data Source [id number] 08/09/2021 10:47:00 AM EDT [facility] ([facility]) Name Value Range Interpretation Code Description Data Marifer rce(s) Supporting Document(s) Antithrombin Antigen 81 % 72-124 [facility] ([facility]) .~.~<DG1.3.1>Z86.718</DG1.3.1><DG1.3.1>Z86.718</DG1.3.1><DG1.3.1>Z86.718</DG1.3. 1><D Antithrombin Activity 114 % 75-135 [facility] ( [facility]) .~.~<DG1.3.1>Z86.718</DG1.3.1><DG1.3.1>Z86.718</DG1.3.1><DG1.3.1>Z86.718</DG1.3. 1><D ID Date Data Source [id number] 08/09/2021 10:47:00 AM EDT [facility] ([facility]) Name Value Range Interpretation Code Description Data Marifer rce(s) Supporting Document(s) Protein C Antigen 108 % 60-150 [facility] ([facility]) .~.~<DG1.3.1>Z86.718</DG1.3.1><DG1.3.1>Z86.718</DG1.3.1><DG1.3.1>Z86.718</DG1.3. 1><D Protein S, Total 82 % 60-150 [facility] ([facility]) .~.~<DG1.3.1>Z86.718</DG1.3.1><DG1.3.1>Z86.718</DG1.3.1><DG1.3.1>Z86.718</DG1.3. 1><D Protein S, Free 115 % 61-136 [facility] ([facility]) .~.~<DG1.3.1>Z86.718</DG1.3.1><DG1.3.1>Z86.718</DG1.3.1><DG1.3.1>Z86.718</DG1.3. 1><D ID Date Data Source [id number] 08/09/2021 10:47:00 AM EDT [facility] ([facility]) Name Value Range Interpretation Code Description Data Marifer rce(s) Supporting Document(s) Fibrin D-dimer [Presence] in Platelet poor plasma Laboratory test result 0.27-0.50 [facility] ([facility]) .~.~<DG1.3.1>Z86.718</DG1.3.1><DG1.3.1>Z86.718</DG1.3.1><DG1.3.1>Z86.718</DG1.3. 1><D ID Date Data Source [id number] 08/12/2021 07:06:00 AM EDT [facility] Name Value Range Interpretation Code Description Data Marifer rce(s) Supporting Document(s) aPTT.lupus sensitive W excess phospholip id actual/Normal (normalized LA confirm) 42.4 sec 0.0-55.0 [facility] Effective August Dilute Prothrombin Time (dPT) reference interval will be changing to: 0.0 - 47.6 sec. aPTT.lupus sensitive/aPTT.lupus sensitiv e W excess phospholipid (screen to confirm ratio) 1.31 Ratio 0.00-1.40 [facility] Effective September 02 021 dPT Confirm Ratio reference interval will be changing to: 0.00 - 1.34 ratio Thrombin time 19.0 sec 0.0-23.0 [facility] spital aPTT.lupus sensitive (LA screen) 31.8 sec 0.0-51.9 [facility] dRVVT (LA screen) 41.8 sec 0.0-47.0 [facility] Lupus anticoagulant two screening tests W Reflex [interpretation] C omment: [facility] No lupus anticoagulant was detected. ID Date Data Source [id number] 08/12/2021 07:06:00 AM EDT [facility] Name Value Range Interpretation Code Description Data Marifer rce(s) Supporting Document(s) Antithrombin actual/normal in Platelet poor plasma by Chromo genic method 114 % 75-135 [facility] Direct Xa inhibitor anticoagulants such as rivaroxaban, apixaban andedoxaban will lead to spuriously elevated antithrombin activitylevels possibly masking a deficiency. Antithrombin Ag actual/normal in Platelet poor plasma by Immunologic method 81 % 72-124 [facility] This test was developed and its performa nce characteristicsdetermined by [facility]. It has not been cleared or approvedby the Food and Drug Administration. ID Date Data Source [id number] 08/12/2021 07:06:00 AM EDT [facility] Name Value Range Interpretation Code Description Data Marifer rce(s) Supporting Document(s) Protein C Ag actual/normal in Platelet poor plasma by Immuno logic method 108 % 60-150 [facility] Protein S Ag actual/normal in Platelet poor plasma by Immuno logic method 82 % 60-150 [facility] This test was developed and its performa nce characteristicsdetermined by [facility]. It has not been cleared or approvedby the Food and Drug Administration. Protein S Free Ag actual/normal in Platelet poor plasm a by Immunologic method 115 % 61-136 [facility] Please no te reference interval change ID Date Data Source [id number] 08/11/2021 06:21:00 AM EDT [facility] Name Value Range Interpretation Code Description Data Marifer rce(s) Supporting Document(s) Cardiolipin IgG Ab [Units/volume] in Serum by Immunoassay <9 GPL U/mL 0-14 [facility] Negative: <15 Indeterminate: 15 - 20 Low-Med Positive: >20 - 80 High Positive: >80 Cardiolipin IgM Ab [Units/volume] in Serum by Immunoassay 16 MPL U/mL 0-12 H [facility] Negative: <13 Indeterminate: 13 - 20 Low-Med Positive: >20 - 80 High Positive: >80 ID Date Data Source [id number] 08/09/2021 11:44:00 AM EDT [facility] Name Value Range Interpretation Code Description Data Marifer rce(s) Supporting Document(s) Fibrin D-dimer FEU [Mass/volume] in Platelet poor plasma <0. 27 ug/mL 0.27 - 0.50 [facility] ID Date Data Source [id number] 08/08/2021 04:13:00 PM EDT [facility] ([facility]) Name Value Range Interpretation Code Description Data Marifer rce(s) Supporting Document(s) US Doppler Unilateral Venous Leg LT Laboratory test result [facility] ([facility]) ID Date Data Source [id number] 08/02/2021 07:23:00 PM EDT [facility] Name Value Range Interpretation Code Description Data Marifer rce(s) Supporting Document(s) Free T4 (Free Thyroxine) 0.76-1.46 Normal (applies to non -numeric results) [facility] ID Date Data Source [id number] 08/02/2021 07:24:00 PM EDT [facility] Name Value Range Interpretation Code Description Data Marifer rce(s) Supporting Document(s) Prolactin 2.5-17.4 Normal (applies to non-numeric resul ts) [facility] ID Date Data Source [id number] 08/02/2021 07:24:00 PM EDT [facility] Name Value Range Interpretation Code Description Data Marifer rce(s) Supporting Document(s) FSH 0.7-10.8 Above high normal [facility] ID Date Data Source [id number] 08/02/2021 07:24:00 PM EDT [facility] Name Value Range Interpretation Code Description Data Marifer rce(s) Supporting Document(s) LH 1.2-10.8 Above high normal [facility] ID Date Data Source [id number] 08/02/2021 07:24:00 PM EDT [facility] Name Value Range Interpretation Code Description Data Marifer rce(s) Supporting Document(s) Thyroid Stimulate Hormone TSH 0.358-3.740 No rmal (applies to non-numeric results) [facility] ID Date Data Source [id number] 07/18/2021 10:16:00 [place] [address] PHONE: [phone] FAX: [phone] Name .................. : TALIAJENNIFER MARVIN Nicole Acct Number.................. : [id number] ROOM. ................. : TR-05 Number ................... : [id number] Stay type ............. : E/R Discharge Date......... ... : 07/18/21 Admit Date ......... : 07/18/21 Admit Phys .................... : SAMANTHA WADE Date of ....... : 1990 Family Phys ................... : NON STAFF Phone .................. : [phone] Age ................................ : 31 Film# .................. .:[id number] Sex ................................. : M Unsigned transcriptions are preliminary reports and do not represent a medical or legal document CT ABD & PELV W/[place] OR[place] W/[place] [id number] COMPLETE:07/18/21 06:49 MWB 04782 Reason(s): left flank pa in x 2 [...] or obstruction. No Page [facility] [address] [facility] [address] [place] [address] PHONE: [phone] FAX: [phone] Name .................. : LILIANEBENEZER MARVIN Nicole Acct Number.................. : [id number] ROOM. ................. : TR-05 MR Number ................... : [id number] Stay type ............. : E/R Discharge Date......... ... : 07/18/21 Admit Date ......... : 07/18/21 Admit Phys .................... : SAMANTHA OLVERA Date of ....... : 1990 Family Phys ................... : NON STAFF Phone .................. : [phone] Age ................................ : 31 Film# .................. .:[id number] Sex ................................. : M Unsigned transcriptions are preliminary reports and do not represent a medical or legal document CT ABD & PELV W/[place] ORAL W/[place] [id number] COMPLETE:07/18/21 06:49 MWB 16947 Reason(s): left flank pain x 2 days, [...] report for this exam was provided by Vicki. Electronically Reviewed and Signed By Len Gautam MD , 07/18/21 10:16, VINEET Transcribe Initials: SSR, Transcribe Date: 07/18/21 09:48, Dictation Date: Copy for: 710 MED REC DISCHARGED Page 2 of 2 Name Value Range Interpretation Code Description Data Marifer rce(s) Supporting Document(s) ID Date Data Source [id number] 07/18/2021 04:01:00 AM EDT [facility] 1 OrderSheet [facility] Emergency Department [address] [place] [address] Phone #: ext- [phone] 07/18/2021 04:01 Patient: MARVIN LEAHY Sex: M : 1990 Age: 31yWEIGHT:95.2 kg (S) HEIGHT:68 inches (S) BMI:31.9ALLERGIES: None, SeafoodCHIEF COMPLAINT: abdominal painDIAGNOSIS: Mesenteric lymphadenitis, Abdominal painLAB ORDERSOrder Description Priority Entered Acknowledged [facility] 04:38 07/18/2021 04:58 Samantha Celaya Riccardo Stephanie R.N. M.D.;CMP STAT 04:38 07/18/2021 04:58 Samantha Celaya Riccardo Stephanie R.N. M.D.;Lipase STAT 04:38 07/18/2021 04:58 Samantha Celaya Riccardo Stephanie R.N. M.D.;UA Reflex to UA 04:38 07/18/2021 05:38 Kristina Dumas Riccardo Katelyn M.D.;Lactic Acid STAT 04:38 07/18/2021 04:58 Samantha Celaya Riccardo Stephanie R.N. M.D.;DIAGNOSTIC STUDY ORDERSOrder Description Priority Entered Acknowledged InitialedCT ABD PEL W/O STAT 04:38 /0 07/2021 04:58 Belia,Oral W/O IV Turrin, Evelio Elizabeth R.N.Contrast M.D.;(Oxygen?(No))(IV?(Yes)) Reason for Study: left flank pain x 2 days, Hx of stonesMEDICATION/IV/DRIP/FLUID ORDERSOrder Description Priority Entered Acknowledged InitialedNS IV : Bolus 500 04:39 07/18/2021 05:40 Belia,mL, then 150 mL/hr Turrin, Evelio Elizabeth R.N. M.D.;Phenergan IV 25mg 04:39 07/18/2021 05:41 Belia, 2 OrderSheet [facility] Emergency Department [address] [place] [address] Phone #: ext- [phone] 07/18/2021 04:01 Patient: MARVIN LEAHY Sex: M : 1990 Age: 31yin 50mL NS, give Turrin, Evelio Elizabeth R.N.wide open: 25 mg M.D.;(NOW x1, HIGHALERTMEDICATION)Protonix IV Push 40 04:39 07/18/2021 05:41 Belia,mg (in 10 mL NS, Turrin, Evelio Elizabeth R.N.administer over at M.D.;least 2 minutes,NOW x1)GENERAL ORDERSOrder Description Priority Entered Acknowledged InitialedNPO 04:38 07/18/2021 04:58 Belia, Evelio Luna R.NYang MYangDYang;Saline Lock 04:38 07/18/2021 04:58 Belia, Turrin, Evelio Elizabeth R.N. MYangDYang;[Electronically signed by Evelio Luna M.D. (06:56 07/18/2021)][Electronically signed by Consuelo Dumas (07:51 07/18/2021)][Electronically locked by Consuelo Dumas (07:51 07/18/2021)] Name Value Range Interpretation Code Description Data Marifer rce(s) Supporting Document(s) ID Date Data Source [id number] 07/18/2021 04:01:00 AM EDT [facility] 1 Medication Reconciliation Report [facility] Emergency Department [address] [place] [address] Phone #: ext- [phone] 07/18/2021 04:01 Patient: MARVIN LEAHY Sex: M : 1990 Age: 31yWeight: 95.2 kgHeight/Length: 68 in.BMI: 31.9ALLERGIES: None, SeafoodThe patient's Home Medications are listed below:CONTINUE TAKING THE FOLLOWING MEDICATIONS: allergy medicine daily Eliquis Oral (2.5 mg), 2x a day Escitalopram Oxalate Oral (10 mg), 2x a day Ivermectin Oral (3 mg) 3 tabs, every 6 months Pregnyl Intramuscular (22259 unit), 3x a week traZODone HCl Oral (50 mg), daily Xolair Subcutaneous (150 mg) 300mg, 3x a weekThe source(s) of the original Home Medication information:Not obtained.The following Medications were given to the patient in the Emergency Department:NS [IV] IV Fluids bolus 0, administered: 05:40 1Phenergan [IVPB] IVPB bolus 0, then 25 mg, administered: 05:41 1PROTONIX [IVP] IVP 40 mg, administered: 05:41 07/18/2021The following Medications were prescribed to the patient:None. Name Value Range Interpretation Code Description Data Marifer rce(s) Supporting Document(s) ID Date Data Source [id number] 07/18/2021 04:01:00 AM EDT [facility] 1 Medication Administration Record [facility] Emergency Department [address] [place] [address] Phone #: ext- [phone] 07/18/2021 04:01 Patient: MARVIN LEAHY Sex: M : 1990 Age: 31yWeight: 95.2 kgHeight/Length: 68 inBMI: 31.9ALLERGIES: None, Seafood Date/Time Medication Administered Medication OrderedStart NS [IV] NS IV : Bolus 500 mL, then 85990:40 07/18/2021 Dose: IV Fluids mL/hrLoElizabeth craft, R.NYang Dispensed: 1000 mL bag---- Site: #1 right ybpvpulHlni63:50 1BConsuelo montesinos,Imani PHENERGAN [IVPB] Phenergan IV 25mg in 50mL NS,05:41 07/18/2021 Dose: 25 mg IVPB give wide open: 25 mg (NOW x1,Elizabeth Celaya, R.N. Dispensed: 50 mL bag HIGH ALERT MEDICATION)---- Site: #1 right pacdwtuBcfk15:41 1LofElizabeth valencia R.NYangGiven PROTONIX [IVP] (PANTOPRAZOLE Protonix IV Push 40 mg (in 10 mL05:41 07/18/2021 SODIUM) NS, administer over at least 2LoftElizabeth varela, R.N. Dose: 40 mg IVP minutes, NOW x1) Site: #1 right forearm Name Value Range Interpretation Code Description Data Marifer rce(s) Supporting Document(s) ID Date Data Source [id number] 07/18/2021 04:01:00 AM EDT [facility] 1 General Instructions [facility] Emergency Department [address] [place] [address] Phone #: ext- [phone] 07/18/2021 04:01 Patient: [...] every 6 months.Pregnyl Intramuscular : Solution Reconstituted 8[address]70 unit, 3x a week.traZODone HCl Oral : Tablet 50 mg, daily.Xolair Subcutaneous : Solution Reconstituted 150 mg, 300mg 3x a week.F ollow-up:Return to the emergency department as needed. Follow up with your healthcare provider in two dayseven if well. Call for an appointment. Reason for referral: evaluation, treatment and GI REFERRAL.Summary of care provided to patient via paper. Follow up with a clinical rn in five days even ifwell. Call for an appointment. Reason for referral: evaluation and treatment. Summary of care provided topatient via paper.Understanding of the discharge instructions verbalized by patient. Expected course of illness, dischargeinstructions, activity level, diet, follow-up appointment and risks and benefits of treatment reviewed withpatient and understanding verbalized. Agrees to plan of care. 2 General Instructions [facility] Emergency Department [address] [place] [address] Phone #: ext- [phone] 07/18/2021 04:01 Patient: [...] as advised. In some 3 General Instructions [facility] Emergency Department [address] [place] [address] Phone #: ext- [phone] 07/18/2021 04:01 Patient: [...] chest, arm, back, neck or jaw pain 7433-6131 [employer]. [address] [place] [address], [place] [address]. All rights reserved. This information is not [...] Fever Loss of appetite 4 General Instructions [facility] Emergency Department [address] [place] [address] Phone #: ext- [phone] 07/18/2021 04:01 Patient: [...] will be told if there are changes.Call [phone] if any of these occur: Trouble breathing Confusion Very drowsy or trouble awakening Fainting or loss of consciousness Rapid heart rate Chest pain 5 General Instructions [facility] Emergency Department [address] [place] [address] Phone #: ext- [phone] 07/18/2021 04:01 Patient: [...] skin Swelling in the abdomen Bloody stools 4614-5475 [employer]. [address] [place] [address]. All rights reserved. This information is not intended as asubstitute for professional medical care. Always follow your healthcare professional's instructions. You have been given the following additional information: Unknown Causes of Abdominal Pain (Male) Adenitis, Mesenteric(Electronically signed by Evelio Luna M.D. 07/18/2021 06:56) Name Value Range Interpretation Code Description Data Marifer rce(s) Supporting Document(s) ID Date Data Source [id number] 07/18/2021 04:01:00 AM EDT [facility] 1 Clinical Report - Nurses [facility] Emergency Department [address] [place] [address] Phone #: ext- [phone] 07/18/2021 04:01 Patient: [...] LEVEL 3.Chief Complaint: ABDOMINAL PAIN.Onset. 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 --04:15 07/18/21 Elizabeth Celaya R.N.04:10 07/18/21. BP: 131/107. MAP: 115. HR: 71. RR: 16. O2 saturation: 100%. Temp: 98.8 F. Pain levelnow: 03/18. --04:15 07/18/21 Elizabeth Celaya R.N.Weight: 95.2 kg stated. Height/Length: 68 inches Per Patient. BMI: 31.9. --04:07/18/21 Elizabeth Celaya R.N.Medicationsallergy medicine daily. Eliquis Oral (Tablet 2.5 mg), 2x a day. Escitalopram Oxalate Oral (Tablet 10 mg), 2x a day. Ivermectin Oral (Tablet 3 mg) 3 tabs, every 6 months. Pregnyl Intramuscular (Solution Reconstituted 75163 unit), 3x a week. traZODone HCl Oral (Tablet 50 mg), daily. Xolair Subcutaneous (Solution Reconstituted 150 mg) 300mg, 3x a week. --04:11 07/18/21 Elizabeth Celaya R.N.AllergiesNone.Seafood. --04:11 07/18/21 Elizabeth Celaya R.N.PROBLEMS:Gastroenteritis.G6Pd Deficiency.Gastroesophageal Reflux Disease.Hypertension.Hematuria.Flank Pain. 2 Clinical Report - Nurses [facility] Emergency Department [address] [place] [address] Phone #: ext- [phone] 07/18/2021 04:01 Patient: MARVIN LEAHY Sex: M : 1990 Age: 31yDVT - Deep Venous Thrombosis.Dehydration.Diarrhea.Hypokalemia.Testosterone deficiency.Syncope.Ureterolithiasis.Vomiting.Urinary Calculi.Sleep Apnea: (New diagnosis, Seen Thursday in [place] for CPAP treatment).Lumbar Strain.Insomnia.Nephrolithiasis.Skin Problems.Renal Colic. --04:12 [...] Celaya R.N. 3 Clinical Report - Nurses [facility] Emergency Department [address] [place] [address] Phone #: ext- [phone] 07/18/2021 04:01 Patient: MARVIN LEAHY Sex: M [...] Patient ready for evaluation- ED physician notified. --04: Elizabeth Celaya R.N. Patient transported to [place] by wheelchair. --05:20 07/18/21 Elizabeth Celaya R.N. [...] of possessions / care items: call light wit hin easy reach. Plug ins: assured IV pump plugged in; checked status of equipment in use; located all cords, tubes, and lines to prevent fall hazard. Set expectations: advised patient of rounding protocol timing and asked if they needed anything else at this 4 Clinical Report - Nurses [facility] Emergency Department [address] [place] [address] Phone #: ext- [phone] 07/18/2021 04:01 Patient: [...] on room air. --06:40 07/18/21 Elizabeth Celaya R.NYang 06:41 07/18/2021 Phenergan IVPB via IV site [...] Patient verbalized understanding. Written instructions provided in Iranian. The patient was discharged by the physician. He was discharged home and unaccompanied at time of discharge. He left ambulatory and via private vehicle. 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 --07:51 07/18/21 Consuelo Dumas 07:49 07/18/21. BP: 121/61. HR: 63. RR: 15. O2 saturation: 99%. Temp: 98.1 F. Pain level now 0/10. --07:51 07/18/21 Consuelo Dumas.Locked/Released at 07/18/2021 07:51 by Consuelo Dumas 5 Clinical Report - [facility] Emergency Department [address] [place] [address] Phone #: ext- [phone] 07/18/2021 04:01 Patient: MARVIN LEAHY Sex: M : 1990 Age: 31y Name Value Range Interpretation Code Description Data Marifer rce(s) Supporting Document(s) ID Date Data Source [id number] 07/18/2021 04:01:00 AM EDT [facility] 1 Clinical Report - Physicians/Mid Levels [facility] Emergency Department [address] [place] [address] Phone #: ext- [phone] 07/18/2021 04:01 Patient: MARVNI LEAHY Sex: M : 1990 Age: 31y [...] Thrombosis. Dehydration. 2 Clinical Report - Physicians/Mid [facility] Emergency Department [address] [place] [address] Phone #: ext- [phone] 07/18/2021 04:01 Patient: MARVIN LEAHY Sex: M : 1990 Age: 31y Diarrhea. Hypokalemia. Testosterone deficiency. Syncope. Ureterolithiasis. Vomiting. Urinary Calculi. Sleep Apnea. (New diagnosis, Seen Thursday in [place] for CPAP treatment) Lumbar Strain. Insomnia. Nephrolithiasis. Skin Problems. Renal Colic. Additional Surgeries: Ureteral Stent. Uroscopy. Medications: allergy medicine daily. Eliquis Oral (Tablet 2.5 mg), 2x a day. Escitalopram Oxalate Oral (Tablet 10 mg), 2x a day. Ivermectin Oral (Tablet 3 mg) 3 tabs, every 6 months. Pregnyl Intramuscular (Solution Reconstituted 30116 unit), 3x a week. traZODone HCl Oral [...] saturation: 100%. Temp: 98.8F. Pain level now: 5/10. Have been reviewed. Hypertensive. Oxygen saturation normal.Appearance: Alert. Oriented X3. No acute distress.Eyes: Pupils equal, round and reactive to light. Eyes normal inspection.ENT: Nose normal. Pharynx no rmal.Neck: Normal inspection. Neck supple. 3 Clinical Report - Physicians/Mid Levels [facility] Emergency Department [address] [place] [address] Phone #: ext- [phone] 07/18/2021 04:01 [id number] Sex: M : 1990 Age: 31y CVS: [...] No sensory deficit.LABS, X-RAYS, AND EKGAbdominal CT: [facility] Call: [phone] Online chat: [email or web address] Name: MARVIN LEAHY (Age): 1990 31 Gender: MDate of Exam: 07/18/2021 Physician: EVELIO LUNA # of Images: [phone] As: CT ABDOMEN/PELVIS WOCONFIDENTIALITY STATEMENTThis report is intended only for the use of the referring physician, and only in accordance with law, If youreceived this in error, call [phone] 1 of 1PROCEDURE INFORMATION:Exam: CT Abdomen And [...] seen 4 Clinical Report - Physicians/Mid Levels [facility] Emergency Department [address] [place] [address] Phone #: ext- [phone] 07/18/2021 04:01 Patient: MARVIN LEAHY Sex: M : 1990 Age: 31yin mesenteric adenitis.Urinary bladder: Unremarkable as visualized.Reproductive: Unremarkable as visualized.Bones/joints: Unremarkable. No acute fracture.Soft tissues: Unremarkable.IMPRESSION:Findings that could reflect mesenteric adenitisThank you for allowing us to participate in the care of your patient.Dictated and Authenticated by: Manuelito Sanchez MD07/18/2021 6:45 AM Eastern Time ([facility]). Study type: abdomen and pelvis. Abdominal CTperformed [...] 99) 5 Clinical Report - Physicians/Mid Levels [facility] Emergency Department [address] [place] [address] Phone #: ext- [phone] 07/18/2021 04:01 Patient: [...] mL/min Normal Lipase: (DERRICK: 07/18/2021 04:52) ( MsgRcvd 07/18/2021 05:48) Final results Test Result Flag Units (Reference) LIPASE 29 U/L (13 - 60) UA REFLEX TO UA CULTURE: (DERRICK: 07/18/2021 05:35) ( [facility] 07/18/2021 05:49) Final results Test Result Flag [...] NONE Lactic Acid: (DERRICK: 07/18/2021 04:52) ( [facility] 07/18/2021 05:07) Final results Test Result Flag Units (Reference) LACTIC ACID 1.4 MMOL/L (0.2 - 2.2). 6 Clinical Report - Physicians/Mid Levels [facility] Emergency Department [address] [place] [address] Phone #: [phone]- [phone] 07/18/2021 04:01 Patient: MARVIN LEAHY Sex: M [...] day. 7 Clinical Report - Physicians/Mid Levels [facility] Emergency Department [address] [place] [address] Phone #: ext- [phone] 07/18/2021 04:01 Patient: MARVIN LEAHY [facility]#: [id number] Sex: M : 1990 Age: 31y Ivermectin Oral : Tablet 3 mg, 3 tabs every 6 months. Pregnyl Intramuscular : Solution Reconstituted 39317 unit, 3x a week. traZODone HCl Oral [...] patient via paper. Follow up with a clinical rn in five days even if well. Call [...] Name Value Range Interpretation Code Description Data [facility] rce(s) Supporting Document(s) ID Date Data Source [id number] 07/18/2021 05:48:00 AM EDT [facility] Name Value Range Interpretation Code Description Data [facility] rce(s) Supporting Document(s) UA REFLEX TO UA CULTURE [facility] URINALYSIS SOURCE R [facility] COLOR yellow NORMAL: Yellow [facility] CLARITY clear NORMAL: Clear [facility] Specific gravity of Urine by Test strip 1.025 1.001 - 1.030 [facility] pH 6 5 - 9 [facility] Glucose [Mass/volume] in Urine by Test strip NORM NORMAL: Negat xiomara [facility] Bilirubin.total [Presence] in Urine by Test strip NEG NORMAL: Negative [facility] Ketones [Presence] in Urine by Test strip NEG NORMAL: Negative [facility] Protein [Mass/volume] in Urine by Test strip NEG NORMAL: Negat xiomara [facility] Nitrite [Presence] in Urine by Test strip NEG NORMAL: Negative [facility] BLOOD 10 NORMAL: Negative A [facility] Leukocyte esterase [Presence] in Urine by Test strip NEG LLUVIA L: Negative [facility] Urobilinogen [Mass/volume] in Urine by Test strip NOR less fidelia n 1.0 mg/dL [facility] MICROSCOPIC See Below [facility] ital WBC 1 - 3 NORMAL: NONE SEEN [facility] Erythrocytes [#/volume] in Urine by Test strip 5 - 7 NORMAL: NON E SEEN A [facility] EPITHELIAL FEW NORMAL: NONE SEEN [facility] Bacteria [Presence] in Urine sediment by Light microscopy 1+ SMALL NORMAL: NONE SEEN [facility] Mucus [Presence] in Urine sediment by Light microscopy 2+ NOR MAL: NONE SEEN [facility] ID Date Data Source [id number] 07/18/2021 05:24:00 AM EDT [facility] Name Value Range Interpretation Code Description Data Marifer rce(s) Supporting Document(s) CBC W/AUTOMATED DIFF [facility] COMPLETE BLOOD COUNT Leukocytes [#/volume] in Blood by Automated count 5.5 10^3/uL 4.2 - 1 1.0 [facility] Erythrocytes [#/volume] in Blood by Automated count 4.78 10^6/uL 4. 50 - 6.30 [facility] Hemoglobin [Mass/volume] in Blood 13.9 g/dL 14.0 - 16.0 L [facility] Hematocrit [Volume Fraction] of Blood by Automated count 42.4 % 4 1.0 - 51.0 [facility] Erythrocyte mean corpuscular volume [Entitic volume] by Auto mated count 88.7 fL 80.0 - 94.0 [facility] Erythrocyte mean corpuscular hemoglobin [Entitic mass] by Automated count 29.1 pg 27.0 - 34.0 [facility] Erythrocyte mean corpuscular hemoglobin concentration [Mass/volume] by Automated count 32.8 g/dL 31.0 - 36.0 [facility] Erythrocyte distribution width [Ratio] by Automated count 12.5 % 11.5 - 14.8 [facility] Platelets [#/volume] in Blood by Automated count 198 10^3/uL 150 - 45 0 [facility] Platelet mean volume [Entitic volume] in Blood by Automated count 10.2 fL 7.4 - 10.4 [facility] Neutrophils/100 leukocytes in Blood by Automated count 40.7 % 37. 0 - 80.0 [facility] Lymphocytes/100 leukocytes in Blood by Manual count 44.9 % 25.0 - 40.0 H [facility] Monocytes/100 leukocytes in Blood by Automated count 11.3 % 3.0 - 8.0 H [facility] Eosinophils/100 leukocytes in Blood by Automated count 2.2 % 0.0 - 7.0 [facility] Basophils/100 leukocytes in Blood by Automated count 0.5 % 0.0 - 2.0 [facility] %IG 0.4 % 0.0 - 0.0 H [facility] %NRBC 0.0 % 0.0 - 0.0 [facility] al Neutrophils [#/volume] in Blood by Automated count 2.24 10^3/uL 2.00 - 6.90 [facility] Lymphocytes [#/volume] in Blood by Automated count 2.47 10^3/uL 0.60 - 3.40 [facility] Monocytes [#/volume] in Blood by Automated count 0.62 10^3/uL 0.00 - 0.90 [facility] Eosinophils [#/volume] in Blood by Automated count 0.12 10^3/uL 0.00 - 0.70 [facility] Basophils [#/volume] in Blood by Automated count 0.03 10^3/uL 0.00 - 0.20 [facility] #IG 0.02 10^3/uL 0.00 - 0.10 [facility] ospital #NRBC 0.00 10^3/uL 0.00 - 0.00 [facility] ospital MANUAL DIFF NOT INDICATED [facility] RBC MORPH NOT INDICATED [facility] ID Date Data Source [id number] 07/18/2021 05:48:00 AM EDT [facility] Name Value Range Interpretation Code Description Data Marifer rce(s) Supporting Document(s) Lipase [Enzymatic activity/volume] in Serum or Plasma 29 U/L 13 - 60 [facility] ID Date Data Source [id number] 07/18/2021 05:47:00 AM EDT [facility] Name Value Range Interpretation Code Description Data Marifer rce(s) Supporting Document(s) COMPREHENSIVE METABOLIC PANEL [facility] COMPREHENSIVE METABOLIC PANEL Sodium [Moles/volume] in Serum or Plasma 139 mEq/L 134 - 153 [facility] Potassium [Moles/volume] in Serum or Plasma 4.1 mEq/L 3.6 - 5.0 [facility] Chloride [Moles/volume] in Serum or Plasma 105 mEq/L 98 - 107 [facility] Carbon dioxide, total [Moles/volume] in Serum or Plasma 26 MEQ/L 22 - 30 [facility] Glucose [Mass/volume] in Serum or Plasma 113 MG/DL 70 - 99 H [facility] BUN 11 MG/DL 7 - 21 [facility] Creatinine [Mass/volume] in Serum or Plasma 0.8 MG/DL 0.7 - 1.5 [facility] BUN/CREAT 14 8 - 27 [facility] al Protein [Mass/volume] in Serum or Plasma 7.7 G/DL 6.3 - 8.2 [facility] Albumin [Mass/volume] in Serum or Plasma 4.5 G/DL 3.9 - 5.0 [facility] Globulin [Mass/volume] in Serum by calculation 3.2 GM/DL 2.4 - 3.2 [facility] A/G RATIO 1.4 0.8 - 2.0 [facility] Calcium [Mass/volume] in Serum or Plasma 9.5 MG/DL 8.4 - 10.2 [facility] Bilirubin.total [Mass/volume] in Serum or Plasma <0.7 MG/DL 0.2 - 1.3 [facility] Alkaline phosphatase [Enzymatic activity/volume] in Serum or Plasma 70 U/L 38 - 126 [facility] Aspartate aminotransferase [Enzymatic activity/volume] in Serum or Plasma 41 U/L 5 - 40 H [facility] Alanine aminotransferase [Enzymatic activity/volume] in Seru m or Plasma 34 U/L 7 - 56 [facility] Anion gap 3 in Serum or Plasma 8.0 mmol/L 8.0 - 16.0 [facility] AGE 31 yrs [facility] NON-AA GFR >60 mL/min [facility] ital AFR AMER GFR >60 mL/min [facility] Male GFR In terprentation 20-49 [...] >32 mL/min Normal ID Date Data Source [id number] 07/18/2021 05:06:00 AM EDT [facility] Name Value Range Interpretation Code Description Data Marifer rce(s) Supporting Document(s) Lactate [Moles/volume] in Serum or Plasma 1.4 MMOL/L 0.2 - 2.2 [facility] ID Date Data Source [id number] 07/04/2021 12:14:00 AM EDT [facility] Name Value Range Interpretation Code Description Data Marifer rce(s) Supporting Document(s) SARS coronavirus 2 RNA [Presence] in Res piratory specimen by LENNOX with probe detection NEGATIVE [facility] This lab was ordered by [facility] a nd reported by [facility]. ID Date Data Source [id number] 07/03/2021 06:52:00 PM EDT [facility] Name Value Range Interpretation Code Description Data Marifer rce(s) Supporting Document(s) SARS coronavirus 2 RNA [Presence] in Res piratory specimen by LENNOX with probe detection NEGATIVE [facility] This lab was ordered by [facility] a nd reported by [facility]. ID Date Data Source [id number] 06/18/2021 02:20:00 PM EDT [facility] ([facility]) Name Value Range Interpretation Code Description Data Marifer rce(s) Supporting Document(s) Color of Urine [facility] Appearance of Urine Laboratory test result [facility] ([facility]) Spec [place] 1.005 1.001-1.030 [facility] ([facility]) pH of Urine by Test strip 8 5-9 [facility] ([facility]) Leukocytes Laboratory test result [facility] ([facility]) Nitrate [Presence] in Urine Laboratory test result [facility] ([facility]) Protein [Presence] in Urine by Test strip Laboratory test result [facility] ([facility]) Inhouse Glucose Laboratory test result [facility] ([facility]) Ketones [Presence] in Urine by Test strip Laboratory test result [facility] ([facility]) Urobilinogen Laboratory test result [facility] ([facility]) Bilirubin.total [Presence] in Urine by Test strip Laboratory test res ult [facility] ([facility]) Blood type and Indirect antibody screen panel - Blood Laboratory test result [facility] ([facility]) ID Date Data Source [id number] 06/10/2021 11:30:00 AM EDT [facility] 1 OrderSheet [facility] Emergency Department [address] [place] [address] Phone #: ext- [phone] 06/10/2021 11:26 Patient: MARVIN LEAHY Sex: M : 1990 Age: 31yWEIGHT:91.6 kg (S) HEIGHT:68 inches (S) BMI:30.7ALLERGIES: None, SeafoodCHIEF COMPLAINT: abdominal painDIAGNOSIS: Gastroesophageal reflux diseaseLAB ORDERSOrder Description Priority Entered Acknowledged InitialedDIAGNOSTIC STUDY ORDERSOrder Description Priority Entered Acknowledged InitialedMEDICATION/IV/DRIP/FLUID ORDERSOrder Description Priority Entered Acknowledged InitialedGI Cocktail PO 50 13:31 06/10/2021 13:42 Niki Rowland with Lidocaine Larry Swatsworth R.N.Viscous PA;Mouth/Throat 10mL , Maalox Oral 30mL, Oral10 mLProtonix PO 40 mg 13:31 06/10/2021 13:42 Michelle Rowland(Do not crush or Larry Moreno R.N.chew) PERLA;GENERAL ORDERSOrder Description Priority Entered Acknowledged Initialed[Electronically signed by Michelle Rowland R.N. (13:57 06/10/2021)][Electronically signed by Larry Moreno (17:28 06/10/2021)][Electronically locked by Michelle Rowland R.N. (13:57 06/10/2021)] Name Value Range Interpretation Code Description Data Marifer rce(s) Supporting Document(s) ID Date Data Source [id number] 06/10/2021 11:30:00 AM EDT [facility] 1 Medication Reconciliation Report [facility] Emergency Department [address] [place] [address] Phone #: ext- [phone] 06/10/2021 11:26 Patient: MARVIN LEAHY Sex: M : 1990 Age: 31yWeight: 91.6 kgHeight/Length: 68 in.BMI: 30.7ALLERGIES: None, SeafoodThe patient's Home Medications are listed below:THE FOLLOWING MEDICATIONS NEED TO BE RECONCILED: allergy medicine daily Eliquis Oral (2.5 mg), 2x a day Escitalopram Oxalate Oral (10 mg), 2x a day Ivermectin Oral (3 mg) 3 tabs, every 6 months Pregnyl Intramuscular (79741 unit), 3x a week traZODone HCl Oral [...] Dispense 30 tablet.Refills: 0. Substitution permitted.[facility] - [facility] - [id number] ; [place] [address]. . 2 Medication Reconciliation Report [facility] Emergency Department [address] [place] [address] Phone #: swe- [phone] 06/10/2021 11:26 Patient: MARVIN LEAHY Sex: M : 1990 Age: 31yZofran 4 mg tablet Take 1 tablet three times a day for 10 days -- Dispense 30 tablet. Refills: 0.Substitution permitted.[facility] [address] ; [place] [address]. FaxNumber: [phone]. -- [facility] Name Value Range Interpretation Code Description Data Marifer rce(s) Supporting Document(s) ID Date Data Source [id number] 06/10/2021 11:30:00 AM EDT [facility] 1 Medication Administration Record [facility] Emergency Department [address] [place] [address] Phone #: ext- [phone] 06/10/2021 11:26 Patient: MARVIN LEAHY Sex: M : 1990 Age: 31yWeight: 91.6 kgHeight/Length: 68 inBMI: 30.7ALLERGIES: None, Seafood Date/Time Medication Administered Medication OrderedGiven GI COCKTAIL [PO] (CALCIUM GI Cocktail PO 50 mL with13:42 06/10/2021 CARBONATE ANTACID) Lidocaine Viscous Mouth/ThroatMichelle Rowland R.N. Dose: 50 mL Oral Suspension PO 10 mL, Maalox Oral 30 mL, Oral 10 mLGiven PROTONIX [PO] (PANTOPRAZOLE Protonix PO 40 mg (Do not crush13:42 06/10/2021 SODIUM) or chew)Michelle Rowland R.N. Dose: 40 mg Tablets PO Name Value Range Interpretation Code Description Data Marifer rce(s) Supporting Document(s) ID Date Data Source [id number] 06/10/2021 11:30:00 AM EDT [facility] 1 General Instructions [facility] Emergency Department [address] [place] [address] Phone #: ext- [phone] 06/10/2021 11:26 Patient: [...] Dispense 30 tablet.Refills: 0. Substitution permitted.Pharmacy - [facility] - [id number] ; [place] [address]. .Zofran 4 mg tablet Take 1 tablet three times a day for 10 days -- Dispense 30 tablet. Refills: 0.Substitution permitted.Pharmacy - [facility] - [id number] ; [place] [address]. .Follow-up:Follow up with your doctor. Reason for referral: evaluation, treatment and refer to Gastroenterolgy.Summary of care provided to patient. ADDITIONAL INFORMATIONGERD (Adult) 2 General Instructions [facility] Emergency Department [address] [place] [address] Phone #: ext- [phone] 06/10/2021 11:26 Patient: MARVIN LEAHY Sex: M [...] on and off.Lifestyle changes 3 General Instructions [facility] Emergency Department [address] [place] [address] Phone #: ext- [phone] 06/10/2021 11:26 Patient: MARVIN LEAHY Sex: M [...] the back, neck, shoulder, or arm An [id number]-[id number] trial of medicine doesn't relieve your symptoms 4 General Instructions [facility] Emergency Department [address] [place] [address] Phone #: [phone] ext- [phone] 06/10/2021 11:26 Patient: MARVIN LEAHY Sex: M : 1990 Age: 31y Weight loss that can't be explained Trouble or pain swallowing Frequent vomiting (can't keep down liquids) Bl ood in the stool or vomit (red or black in color) Feeling weak or dizzy Fever of 100.4F (38C) or higher, or as directed by your healthcare provider [phone] [employer]. [address] [place] [address]. All rights reserved. This information is not intended as asubstitute for professional medical care. Always follow your healthcare professional's instructions. You have been given the following additional information: GERD (Adult) Do not work today.(Electronically signed by PERLA Cisse 06/10/2021 17:28) Name Value Range Interpretation Code Description Data Marifer rce(s) Supporting Document(s) ID Date Data Source [id number] 06/10/2021 11:30:00 AM EDT [facility] 1 Clinical Report - Nurses [facility] Emergency Department [address] [place] [address] Phone #: ext- [phone] 06/10/2021 11:26 Patient: MARVIN LEAHY Sex: M : 1990 Age: 31yTRIAGEArrived by private vehicle. Historian: patient. Unaccompanied. ( epigastic burning (has had before)started to get better than [facility] and then it was worse).Acuity: LEVEL 3.Chief Complaint: ABDOMINAL PAIN and (epigastric buring).Alert.Onset. 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 SEPSIS SCREEN NEGATIVE. No suspected or confirmedsigns of infection present. --13:08 06/10/21 Michelle Rowland R.N.13:04 06/10/21. BP: 130/64. MAP: 86. HR: 68. RR: 18. O2 saturation: 100%. Temp: 98.1 F. Pain levelnow: 06/18. --13:06/10/21 Michelle Rowland R.N.Weight: 91.6 kg stated. Height/Length: 68 inches Per Patient. BMI: 30.7. --13:03 06/10/21 Michelle Rowland R.N.Medicationsallergy medicine daily. Eliquis Oral (Tablet 2.5 mg), 2x a day. Escitalopram Oxalate Oral (Tablet 10 mg), 2x a day. Ivermectin Oral (Tablet 3 mg) 3 tabs, every 6 months. Pregnyl Intramuscular (Solution Reconstituted 02161 unit), 3x a week. traZODone HCl Oral (Tablet 50 mg), daily. Xolair Subcutaneous (Solution Reconstituted 150 mg) 300mg, 3x a week. --13:05 06/10/21 Michelle Rowland R.N.AllergiesNone.Seafood. --13:05 06/10/21 Michelle Rowland R.N.PROBLEMS:Gastroenteritis.G6Pd Deficiency.Hematuria.Hypokalemia. 2 Clinical Report - Nurses [facility] Emergency Department [address] [place] [address] Phone #: ext- [phone] 06/10/2021 11:26 Patient: MARVIN LEAHY Sex: M : 1990 Age: 31yHypertension.Flank Pain.Chronic Back Pain.Abdominal Pain.Dehydration.DVT - Deep Venous Thrombosis.Diarrhea.Testosterone deficiency.Syncope.Ureterolithiasis.Vomiting.Urinary Calculi.Sleep Apnea: (New diagnosis, Seen Thursday in [place] for CPAP treatment).Lumbar Strain.Insomnia.Nephrolithiasis.Skin Problems.Renal Colic. --13:06/10/21 [...] no barriers. 3 Clinical Report - Nurses [facility] Emergency Department [address] [place] [address] Phone #: ext- [phone] 06/10/2021 11:26 Patient: MARVIN LEAHY Sex: M [...] allergic reaction and precautions. Verbalizes understanding. --13:42 8/2/21 Michelle Rowland R.N.DISPOSITION / DISCHARGE 13:44 06/10/21. BP: 128/76. HR: 76. RR: 16. O2 saturation: 99%. Temp: 98.1 F. Pain level now 01/16. 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 No learning barriers present. Discharge instructions provided and reviewed with the patient. Reviewed medication(s) side effects, precautions, dosing and course information. Prescription(s) sent electronically to pharmacy. No prescription given to the patient. Reviewed fever care instructions. Patient verbalized understanding. Written instructions provided in Iranian. The patient was discharged home and unaccompanied at time of discharge. He left ambulatory and via private vehicle. Patient driving. --13:57 06/10/21 Michelle Rowland R.N. Departure time: 13:57 06/10/2021. --13:57 06/10/21 Michelle Rowland R.N. 4 Clinical Report - Nurses [facility] Emergency Department [address] [place] [address] Phone #: ext- [phone] 06/10/2021 11:26 [facility]: [id number] Sex: M : 1990 Age: 31yLocked/Released at 06/10/2021 13:57 by Michelle Rowland R.N. Name Value Range Interpretation Code Description Data Marifer rce(s) Supporting Document(s) ID Date Data Source [id number] 06/10/2021 11:30:00 AM EDT [facility] 1 Clinical Report - Physicians/Mid Levels [facility] Emergency Department [address] [place] [address] Phone #: ext- [phone] 06/10/2021 11:26 Patient: [...] Calculi.Sleep Apnea. (New diagnosis, Seen Thursday in [place] for CPAP treatment)Lumbar Strain.Insomnia. 2 Clinical Report - Phys icians/Mid Levels [facility] Emergency Department [address] [place] [address] Phone #: ext- [phone] 06/10/2021 11:26 Patient: MARVIN LEAHY Sex: M : 1990 Age: 31y Nephrolithiasis. Skin Problems. Renal Colic. Additional Surgeries: Ureteral Stent. Uroscopy. Medications: allergy medicine daily. Eliquis Oral (Tablet 2.5 mg), 2x a day. Escitalopram Oxalate Oral (Tablet 10 mg), 2x a day. Ivermectin Oral (Tablet 3 mg) 3 tabs, every 6 months. Pregnyl Intramuscular (Solution Reconstituted 01817 unit), 3x a week. traZODone HCl Oral [...] follow-up. 3 Clinical Report - Physicians/Mid Levels [facility] Emergency Department [address] [place] [address] Phone #: ext- [phone] 06/10/2021 11:26 Patient: MARVIN LEAHY Sex: M [...] tablet. Refills: 0. Substitution permitted. Pharmacy - [facility] [employer] [facility] - [id number] ; [place] [address]. . Zofran 4 mg tablet Take 1 tablet three times a day for 10 days -- Dispense 30 tablet. Refills: 0. Substitution permitted. Pharmacy - [facility] [address] ; [place] [address]. . Follow-up: Follow up with your doctor. Reason for referral: evaluation, treatment and refer to Gastroenterolgy. Summary of care provided to patient.(Electronically signed by PERLA Cisse 06/10/2021 17:28) Name Value Range Interpretation Code Description Data Marifer rce(s) Supporting Document(s) ID Date Data Source [id number] 06/07/2021 08:52:11 AM EDT [facility] Name Value Range Interpretation Code Description Data Marifer rce(s) Supporting Document(s) Progress Note [facility] WFWLEh0hVfASUoYq56/BVIqzYVZfj8VxVHpuWNv8NSsaJJTaN7HcTHW5vK0eUMP7RPiHYeIjTmGmVuKn lbm [file] W09cN/AlzYOnwlOH816f8x1E+nBgTeOcOV6Yt309uy4kzvq4BP4B5FvpYOjOLr6z+sNc5kAKU8Apj+milk collector ErcCybDq9bZlUqVRQyeL/jhB8m2BAkqTLkJQBxRsBpqRAZNVkCvrf9JE4Kztm5BWxG6T/IL6a6eSEwRu qs/b03TKmiz0Gu667rVi2oagaOqXLK9Kqix9PdlI2e vJG5t2lRfZ/56l+v3f+S10J4FCeN08Q+zOTnqjhG4mUu95kTeMe5m7coRa+uvt7F9P8ifO53I5pcsUqQ aB1f06728ewTEtKYUahw18fBrPyIT3XDF7Y14Z7BdepIE+cgPq46Xj/MPmd14hb2TRSDju0FoiRaMNb9 i7wX7Fzr80ml9amC0BvdYljIrf7MejbpN1kw3+WLbS OukI2AR1ZPANI2mPA0N1OIuGpwoUS8hNk/bh2k0A6DbISsnBXlvPwwVCfaoab5RY28NbDEstkkEvdBJe 525Nh7jlKR2iXFPzoz0dDXgZAz3wBI0ndmEK47BlMHWRYcz3dXEoG0hMtwx0I2Fj3z4Iuj3qMLbsaL8E VYqMC6Rj/szMBAbLmxymqP5WjC5/ksQz493+5QM1Mf 8ZUypa1DqcR/IeKlWDZW2zXD+r+HW8Mrvx8SmTwh5uXe9BtowdOqU27pwL/zhmts9LXbO3VT+74xRlLX Pfn/Rt5xyGgafoHS+4/VC5CH0z1Rx+kMg3FY23yuDvD1Sn9hsK0CodXyeLvkzb0Usi9Uvl4UTcETQC0J 5PUCrk0YB9xrc57Ln47bE91sirp1PIcs73uhJfQ879 [file] LOCATOR SPECIALIST/Th9P7oguf7V/VwU0ifqZfqNDji0t8HXGbskPDHLXhe9QrZh5CIBB8t8EtsNyaLU3oc7W6kG+FgWe [file] ICAgICAgICAgICAgICAgICAgICAgICAgICAgICAgICAgICAgICAgICAgICAgICAgICAgICAgICAgICAg ICAgICAgICAgICAgICAgICAgICAgICAgICANCiAgICAgICAgICAgICAgICAgICAgICAgICAgICAgICAg ICAgICAgICAgICAgICAgICAgICAgICAgICAgICAgIC AgICAgICAgICAgICAgICAgICAgICAgICAgICAgICAgICAgICANCiAgICAgICAgICAgICAgICAgICAgIC AgICAgICAgICAgICAgICAgICAgICAgICAgICAgICAgICAgICAgICAgICAgICAgICAgICAgICAgICAgIC AgICAgICAgICAgICAgICAgICANCiAgICAgICAgICAg ICAgICAgICAgICAgICAgICAgICAgICAgICAgICAgICAgICAgICAgICAgICAgICAgICAgICAgICAgICAg ICAgICAgICAgICAgICAgICAgICAgICAgICAgICANCiAgICAgICAgICAgICAgICAgICAgICAgICAgICAg ICAgICAgICAgICAgICAgICAgICAgICAgICAgICAgIC AgICAgICAgICAgICAgICAgICAgICAgICAgICAgICAgICAgICAgICANCiAgICAgICAgICAgICAgICAgIC AgICAgICAgICAgICAgICAgICAgICAgICAgICAgICAgICAgICAgICAgICAgICAgICAgICAgICAgICAgIC AgICAgICAgICAgICAgICAgICAgICANCiAgICAgICAg ICAgICAgICAgICAgICAgICAgICAgICAgICAgICAgICAgICAgICAgICAgICAgICAgICAgICAgICAgICAg ICAgICAgICAgICAgICAgICAgICAgICAgICAgICAgICANCiAgICAgICAgICAgICAgICAgICAgICAgICAg ICAgICAgICAgICAgICAgICAgICAgICAgICAgICAgIC AgICAgICAgICAgICAgICAgICAgICAgICAgICAgICAgICAgICAgICAgICANCiAgICAgICAgICAgICAgIC AgICAgICAgICAgICAgICAgICAgICAgICAgICAgICAgICAgICAgICAgICAgICAgICAgICAgICAgICAgIC AgICAgICAgICAgICAgICAgICAgICAgICANCiAgICAg ICAgICAgICAgICAgICAgICAgICAgICAgICAgICAgICAgICAgICAgICAgICAgICAgICAgICAgICAgICAg ICAgICAgICAgICAgICAgICAgICAgICAgICAgICAgICAgICANCjw/sUQdE7spoARtcoG1S5ymNo1FFm5U PM4dh8BeCLLgWIfnygWoJaeMVdIvPPTpDhaLSmr8AZ cbGV9JbMJsW0LqQ4NeDKeaKM7OFGIaLJRxqJZxVBBtSFYwWoA7VQRfDFffPI7RmHRbPVshEVDvEXErPt LcTHWdWU1PGQMgB196jmXaJj7MSy9IJeRzID8pfd2AKfFfXWMqTntXHcn2FDzyLA5RuFMsaEGkIdUcIV JLJsPnD9nur0PcYnBnLQPXNPrqJT9Qm2BpdHWuJEu+ Zi0WTW8dv1OaXSupJnHfMV2gjp0JUVsZXxQnS5PmqDayUASmc0poKNQeBZ9hkKQmOGU1LGdvUfMWbdPe c2UtxCrrIPCyODMtMg4hBI5lFZKiXZB5KlFlTEWQPM0MJRIdKSQosVGoMSJgLQSLPT7ZTDbjEME9LLOy mpDoaKFlVWunEW7QHXCpuySxEsAbLAYGUHg+Pg0KZW 4hv0HuWCqlLlEyPH6jyw4SJOeKDjGaM1C2fZDfI3E7REenVx0BOGFyFGHiRLyvSHHVLOexAM9VGJ8tyh V0RP4FsXLcCHUhNXJqrRHsPOp5H80koINaVGhoBB2IENN+Jayla+Tu6TXNBcXDKmPMEsZnWyLWBCQqUwC3 JvX1NDr4YrS1YeRZ39dXombeMtERrqFB5ANU1qCXLs DJIMDJ7PoJZnmR2tgpPzJCMaSGNSKfKbC14aaZOfPAXbEJIaNXNgVo2GCSTzU1HweoSrtLapbdEjQNUm FSQCRB9JIThwrtMuwWZbrEfeWV32tTidOK0WBr6PHbAxAU7boe7PbQXsIu4SLFJlYV5EOEKsBMYdUHCv ZKO7IKLjWrSsTUclZYQwGWAwATW8WIJgHBGhWK0ATe QuGDXsXqN5IavcUSWbTTCtpz5OTGRzMPKbEcP9EMBgVAQdUTFkGGvtUGMeVZQsTHZ5GZXwGOJkOT9QJd LlRXKoTWY2XicvTZVbTBGyxn3BVTCsXQJdYqL0CcMzUGDyLDSmRLmiIQOdOOF0HeVoEGHbVDMiVF8NOm CxSYFyNUH2MhUpPFLjFAQhlz9SFZIjIPFcUyXkQDRi HVPlGLTmPYjpVNSfMSA6UaZoPFUfLFNgDA8VSwPdQMPpJUL3FZCzVCEbRLZrvk5RQAFeBMHlWcm4HHFr PMGbMIMaCUvpOESpZNK0BQBmHIHaBXMcIN2ZFeNbOIJoCFxgQXGsXJFfWQMflh4RCODmYIJmUJLcTrJi ECEhXUDfUSqnJDMgLTA0ZGOzIARcXUZgRT9ADrHdKZ KmSwFwZjUgLQUyYCKlfj4JMDQzMAMmOBN6XKQeHFWtQWKhVRjnSUQnZCJdIFL4OQXtYRXwWW7POxDtFO UeJjZ9DFlgJAXtSTTvsg4BFXAtZECdOtG4YjEaPTOrCWFdERfmIGZzSLHjOAJdNUAcTKMqJQ5JUvSeHP ZsWfM6POLoIRTrWBVevc2JlDBeoYnhqk2UNIoRQh9A iFxvKYZ8TSzoLx9ufWMxImMcQPRUBi1YboTgNPFvRMWOJZomRLRwJSqqCdJnOvP5NsBzVjN5ZXCoGGH1 Ect9VRHbCkZyZPikKwQ3CHZoUQHwEsueTIFzHqjhLOXeDOt1JAr3JDI7VIFpSYN+IV5jXHn+Hm7Xy1Xz ayI5iaNnUFigAkduXZ3LQBJFV3LIPg== ID Date Data Source [id number] 05/30/2021 02:03:00 PM [facility] Andrology LaboratoryName: LUIS LEAHYMRN: [id number] Number: [id number] Date: 05/30/2021 12:59Received Date: 05/30/2021 14:03Physician(s): Isabel CRAIG,Isabel AGUILERA,LUISpecimen(s) ReceivedA: Semen Analysis, BasicProcedure PerformedSemen AnalysisVOLUME, MOTILITY, [...] Procedure Electronically Signed By: Alberto Jackson, Ph.D., [facility] 05/30/2021 14:51cak/05/30/2021 Alberto Jackson, Ph.D., [facility] Name Value Range Interpretation Code Description Data Marifer rce(s) Supporting Document(s) ID Date Data Source [id number] 05/06/2021 11:04:00 AM EDT [facility] 1 OrderSheet [facility] Emergency Department [address] [place] [address] Phone #: ext- [phone] 05/06/2021 11:02 Patient: MARVIN LEAHY Sex: M : 1990 Age: 31yWEIGHT:90.7 kg (S) HEIGHT:68 inches (S) BMI:30.4ALLERGIES: None, SeafoodCHIEF COMPLAINT: abdominal pain, nausea, vomiting, diarrheaDIAGNOSIS: Abdominal painLAB ORDERSOrder Description Priority Entered Acknowledged InitialedCBC w Diff STAT 11:40 05/06/2021 11:53 Dior Arvizu RN PA;CMP STAT 11:40 05/06/2021 11:53 Dior Arvizu RN PA;CPK STAT 11:40 05/06/2021 11:53 Dior Arvizu RN PA;Lactic Acid STAT 11:40 05/06/2021 11:53 Dior Arvizu [...] NS : Bolus 1000 11:40 05/06/2021 11:53 DorismL, then 1000 Larry Arvizu RNmL/hr (x2) PA;Zofran IVP 8 mg 11:40 05/06/2021 12:01 Dior 2 OrderSheet [facility] Emergency Department [address] [place] [address] Phone #: ext- [phone] 05/06/2021 11:02 Patient: MARVIN LEAHY Sex: M [...] rce(s) Supporting Document(s) ID Date Data Source [id number] 05/06/2021 11:04:00 AM EDT [facility] 1 Medication Reconciliation Report [facility] Emergency Department [address] [place] [address] Phone #: ext- [phone] 05/06/2021 11:02 Patient: MARVIN LEAHY Sex: M : 1990 Age: 31yWeight: 90.7 kgHeight/Length: 68 in.BMI: 30.4ALLERGIES: None, SeafoodThe patient's Home Medications are listed below:THE FOLLOWING MEDICATIONS NEED TO BE RECONCILED: allergy medicine daily Eliquis Oral (2.5 mg), 2x a day Escitalopram Oxalate Oral (10 mg), 2x a day Ivermectin Oral (3 mg) 3 tabs, every 6 months Pregnyl Intramuscular (51339 unit), 3x a week traZODone HCl Oral [...] to the patient:None. 2 Medication Reconciliation Report [facility] Emergency Department [address] [place] [address] Phone #: ext- [phone] 05/06/2021 11:02 Patient: MARVIN LEAHY Sex: M : 1990 Age: 31y Name Value Range Interpretation Code Description Data Marifer rce(s) Supporting Document(s) ID Date Data Source [id number] 05/06/2021 11:04:00 AM EDT [facility] 1 Medication Administration Record [facility] Emergency Department [address] [place] [address] Phone #: ext- [phone] 05/06/2021 11:02 Patient: MARVIN LEAHY Sex: M : 1990 Age: 31yWeight: 90.7 kgHeight/Length: 68 inBMI: 30.4ALLERGIES: None, Seafood Date/Time Medication Administered Medication OrderedStart IV NS IV NS : Bolus 1000 mL, then 609028:48 05/06/2021 Dose: IV Fluids mL/hr (x2)Dior Arvizu RN Rate: 1000 mL/hr over 1 hour(s)---- Bolus: 1000 mL over 1 hour(s)Stop Dispensed: 1000 mL bag12:49 05/06/2021 Site: #1 ALLEN Masseytart IV NS IV NS : Bolus 1000 mL, then 515389:49 05/06/2021 Dose: IV Fluids mL/hr (x2)Dior Arvizu RN Rate: 1000 mL/hr over 1 hour(s)---- Bolus: 1000 mL over 1 hour(s)Stop Dispensed: 1000 mL bag13:33 05/06/2021 Site: #1 right Karen Arvizu RNGiven ZOFRAN [IVP] (ONDANSETRON HCL) Zofran IVP 8 mg11:56 05/06/2021 Dose: 8 mg IVFernando Arvizu RN Site: #1 right handStart Ofirmev IV * Ofirmev IV 1000 mg (NOW x1,11:58 05/06/2021 Dose: 1000 mg * Drip IV Infuse over 15 minutes)Dior Arvizu RN----Stop12:13 1Dsohan Arvizu RN Name Value Range Interpretation Code Description Data Marifer rce(s) Supporting Document(s) ID Date Data Source [id number] 05/06/2021 11:04:00 AM EDT [facility] 1 General Instructions [facility] Emergency Department [address] [place] [address] Phone #: ext- [phone] 05/06/2021 11:02 Patient: MARVIN LEAHY Sex: M [...] until your next exam. 2 General Instructions [facility] Emergency Department [address] [place] [address] Phone #: ext- [phone] 05/06/2021 11:02 Patient: MARVIN LEAHY Sex: M [...] chest, arm, back, neck or jaw pain [phone] [employer]. [address] [place] [address], [place] [address]. All rights reserved. This information is not intended as asubstitute for professional medical care. Always follow your healthcare professional's instructions. 3 General Instructions [facility] Emergency Department [address] [place] [address] Phone #: ext- [phone] 05/06/2021 11:02 Patient: MARVIN LEAHY Sex: M : 1990 Age: 31yYou have been given the following additional information:Unknown Causes of Abdominal Pain (Male)Do not work today.(Electronically signed by PERLA Cisse 05/06/2021 22:28) Name Value Range Interpretation Code Description Data Marifer rce(s) Supporting Document(s) ID Date Data Source [id number] 05/06/2021 11:04:00 AM EDT [facility] 1 Clinical Report - Nurses [facility] Emergency Department [address] [place] [address] Phone #: ext- [phone] 05/06/2021 11:02 Patient: [...] has had nausea,vomiting, diarrhea and abdominal pain.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 SEPSIS SCREEN [...] Kalie Haynes R.N. Pregnyl Intramuscular (Solution Reconstituted 12364 unit), 3x a week. traZODone HCl Oral (Tablet 50 mg), daily. Xolair Subcutaneous (Solution Reconstituted 150 mg) 300mg, 3x a week. --11:32 05/06/21 Kalie Haynes R.N.AllergiesNone.Seafood. --11:05/06/21 Kalie Haynes R.N.PROBLEMS:Dehydration. 2 Clinical Report - Nurses [facility] Emergency Department [address] [place] [address] Phone #: ext- [phone] 05/06/2021 11:02 Patient: MARVIN LEAHY Sex: M : 1990 Age: 31yDVT - Deep Venous Thrombosis.Testosterone deficiency.Ureterolithiasis.Vomiting.Urinary Calculi.Sleep Apnea: (New diagnosis, Seen Thursday in [place] for CPAP treatment).Nephrolithiasis.Renal Colic. --11:05/06/21 Kalie Haynes R.N.Medication/allergy information source: the patient. --11:05/06/21 Kalie Haynes R.N.ADDITIONAL SURGERIES:Ureteral Stent.Uroscopy. --11:05/06/21 Kalie Haynes R.N.HistoryPAST MEDICAL HX: Immunizations: up-to-date.SOCIAL HX: Never smoker. Occasional alcohol use. No drug use. He was offered HIV testing butdeclined. Patient education was provided. He was offered hepatitis C testing but declined. Patienteducation was provided. He has not traveled outside the [place]Infectious disease exposure: No infectious disease exposure. (Pt recently returned from [facility],). Patient is not a known carrier of [...] risk assessment completed. No skin integrity riskidentified. --11:05/06/21 Kalie Haynes R.N.Int erventionsIdentification band on patient. --11:05/06/21 Kalie Haynes R.N. 3 Clinical Report - Nurses [facility] Emergency Department [address] [place] [address] Phone #: ext- [phone] 05/06/2021 11:02 Patient: MARVIN LEAHY Sex: M : 1990 Age: 31yPHYSICAL [id number] 05/06/21. Ambulatory to room.GENERAL / NEURO / [...] --12:26 05/06/21 Dior Arvizu RN 12:13 05/06/2021 irm ev IV Drip IV Discontinued: completed. Total amount infused: 100 mL. IV patency established. IV site checked: no pain, redness, or swelling. IV flushed thoroughly. --12:22 05/06/21 Dior Arvizu RN 12:20 05/06/21. Reassessment after medication administered. No adverse reaction. Pain gone now. Reassessment after fluids administered. He reports no complaints, he is resting quietly and sleeping and 4 Clinical Report - Nurses [facility] Emergency Department [address] [place] [address] Phone #: ext- [phone] 05/06/2021 11:02 Patient: [...] Patient verbalized understanding. Written instructions provided in Iranian. The patient was discharged home and accompanied by exhibit builder. He left ambulatory and via private vehicle. 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 --13:38 05/06/21 Dior Arvizu RN 13:36 05/06/21. BP: 126/71. MAP: 89. HR: 76. RR: 14. O2 saturation: 98%. Temp: 98.5 F. Pain level now: 0/10. --13:38 05/06/21 Dior Arvizu RN.Locked/Released at 05/06/2021 13:39 by Dior Arvizu RN Name Value Range Interpretation Code Description Data Marifer rce(s) Supporting Document(s) ID Date Data Source [id number] 05/06/2021 11:04:00 AM EDT [facility] 1 Clinical Report - Physicians/Mid Levels [facility] Emergency Department [address] [place] [address] Phone #: ext- [phone] 05/06/2021 11:02 Patient: MARVIN LEAHY Sex: M [...] Calculi.Sleep Apnea. (New diagnosis, Seen Thursday in [place] for CPAP treatment)Nephrolithiasis.Renal Colic. Additional Surgeries: Ureteral Stent. Uroscopy. Medications: Pregnyl Intramuscular (Solution Reconstituted 97529 unit), 3x a week. traZODone HCl Oral (Tablet 50 mg), daily. 2 Clinical Report - Physicians/Mid Levels [facility] Emergency Department [address] [place] [address] Phone #: ext- [phone] 05/06/2021 11:02 Patient: [...] 7.0) 3 Clinical Report - Physicians/Mid Levels [facility] Emergency Department [address] [place] [address] Phone #: ext- [phone] 05/06/2021 11:02 Patient: MARVIN LEAHY Sex: M : 1990 Age: 31y BASO [...] Male GFR Interprentation 20-49 yrs >60 mL/min Ivdunp96-90 yrs >56 mL/min Normal 60- 69 yrs >49 mL/min Normal 70-79yrs>42 mL/min Normal 80 and above >35 mL/min Normal Female GFRInterpretation 20-39 yrs >60 mL/min Normal 40-49 yrs >58 mL/minNormal 50-59 yrs >51 mL/min Normal 60-69 yrs >45 mL/min Uccgpu61-18 yrs >39 mL/min Normal 80 and above >32 mL/min NormalCPK: (DERRICK: 05/06/2021 11:55) ( [facility] 05/06/2021 12:59) Final results Test Result Flag Units (Reference) CPK 241 H U/L (30 - 170)Lactic Acid: (DERRICK: 05/06/2021 11:55) ( [facility] 05/06/2021 12:22) Final results Te st Result Flag Units (Reference) LACTIC ACID 1.6 MMOL/L (0.2 - 2.2)Lipase: (DERRICK: 05/06/2021 11:55) ( [facility] 05/06/2021 12:58) Final results Test Result Flag Units (Reference) LIPASE 26 U/L (13 - 60) 4 Clinical Report - Physicians/Mid Levels [facility] Emergency Department [address] [place] [address] Phone #: ext- [phone] 05/06/2021 11:02 Patient: [...] Discharged home in good and improved condition (13:May 06 2021).CLINICAL IMPRESSION Chronic generalized abdominal pain [...] rce(s) Supporting Document(s) ID Date Data Source [id number] 05/06/2021 12:59:00 PM EDT [facility] Name Value Range Interpretation Code Description Data Marifer rce(s) Supporting Document(s) Creatine kinase [Enzymatic activity/volume] in Serum or Plasma 2 41 U/L 30 - 170 H [facility] ID Date Data Source [id number] 05/06/2021 12:59:00 PM EDT [facility] Name Value Range Interpretation Code Description Data Marifer rce(s) Supporting Document(s) COMPREHENSIVE METABOLIC PANEL [facility] COMPREHENSIVE METABOLIC PANEL Sodium [Moles/volume] in Serum or Plasma 139 mEq/L 134 - 153 [facility] Potassium [Moles/volume] in Serum or Plasma 3.5 mEq/L 3.6 - 5.0 L [facility] Chloride [Moles/volume] in Serum or Plasma 105 mEq/L 98 - 107 [facility] Carbon dioxide, total [Moles/volume] in Serum or Plasma 24 MEQ/L 22 - 30 [facility] Glucose [Mass/volume] in Serum or Plasma 95 MG/DL 70 - 99 [facility] BUN 11 MG[facility]DL 7 - [facility] Creat[facility] [Mass/volume] in Serum or Plasma 0.8 MG/DL 0.7 - 1.5 [facility] BUN/CREAT 14 8 - 27 [facility] Protein [Mass/volume] in Serum or Plasma 7.1 G/DL 6.3 - 8.2 [facility] Albumin [Mass/volume] in Serum or Plasma 4.3 G/DL 3.9 - 5.0 [facility] Globulin [Mass/volume] in Serum by calculation 2.8 GM/DL 2.4 - 3.2 [facility] A/G RATIO 1.5 0.8 - 2.0 [facility] Calcium [Mass/volume] in Serum or Plasma 9.6 MG/DL 8.4 - 10.2 [facility] Bilirubin.total [Mass/volume] in Serum or Plasma <0.7 MG/DL 0.2 - 1.3 [facility] Alkaline phosphatase [Enzymatic activity/volume] in Serum or Plasma 64 U/L 38 - 126 [facility] Aspartate aminotransferase [Enzymatic activity/volume] in Serum or Plasma 21 U/L 5 - 40 [facility] Alanine aminotransferase [Enzymatic activity/volume] in Seru m or Plasma 20 U/L 7 - 56 [facility] Anion gap 3 in Serum or Plasma 10.0 mmol/L 8.0 - 16.0 [facility] AGE 31 yrs [facility] al NON-AA GFR >60 mL/min [facility] ital AFR AMER GFR >60 mL/min [facility] Ho spital Male GFR In terprentation 20-49 [...] >32 mL/min Normal ID Date Data Source [id number] 05/06/2021 12:58:00 PM EDT [facility] Name Value Range Interpretation Code Description Data Marifer rce(s) Supporting Document(s) Lipase [Enzymatic activity/volume] in Serum or Plasma 26 U/L 13 - 60 [facility] ID Date Data Source [id number] 05/06/2021 12:22:00 PM EDT [facility] Name Value Range Interpretation Code Description Data Marifer rce(s) Supporting Document(s) Lactate [Moles/volume] in Serum or Plasma 1.6 MMOL/L 0.2 - 2.2 [facility] ID Date Data Source [id number] 05/06/2021 12:06:00 PM EDT [facility] Name Value Range Interpretation Code Description Data Marifer rce(s) Supporting Document(s) CBC W/AUTOMATED DIFF [facility] COMPLETE BLOOD COUNT Leukocytes [#/volume] in Blood by Automated count 4.8 10^3/uL 4.2 - 1 1.0 [facility] Erythrocytes [#/volume] in Blood by Automated count 4.28 10^6/uL 4. 50 - 6.30 L [facility] Hemoglobin [Mass/volume] in Blood 12.6 g/dL 14.0 - 16.0 L [facility] Hematocrit [Volume Fraction] of Blood by Automated count 38.2 % 4 1.0 - 51.0 L [facility] Erythrocyte mean corpuscular volume [Entitic volume] by Auto mated count 89.3 fL 80.0 - 94.0 [facility] Erythrocyte mean corpuscular hemoglobin [Entitic mass] by Automated count 29.4 pg 27.0 - 34.0 [facility] Erythrocyte mean corpuscular hemoglobin concentration [Mass/volume] by Automated count 33.0 g/dL 31.0 - 36.0 [facility] Erythrocyte distribution width [Ratio] by Automated count 12.7 % 11.5 - 14.8 [facility] Platelets [#/volume] in Blood by Automated count 177 10^3/uL 150 - 45 0 [facility] Platelet mean volume [Entitic volume] in Blood by Automated count 10.4 fL 7.4 - 10.4 [facility] Neutrophils/100 leukocytes in Blood by Automated count 54.9 % 37. 0 - 80.0 [facility] Lymphocytes/100 leukocytes in Blood by Manual count 31.9 % 25.0 - 40.0 [facility] Monocytes/100 leukocytes in Blood by Automated count 10.9 % 3.0 - 8.0 H [facility] Eosinophils/100 leukocytes in Blood by Automated count 1.9 % 0.0 - 7.0 [facility] Basophils/100 leukocytes in Blood by Automated count 0.2 % 0.0 - 2.0 [facility] %IG 0.2 % 0.0 - 0.0 H [facility] al %NRBC 0.0 % 0.0 - 0.0 [facility] Neutrophils [#/volume] in Blood by Automated count 2.62 10^3/uL 2.00 - 6.90 [facility] Lymphocytes [#/volume] in Blood by Automated count 1.52 10^3/uL 0.60 - 3.40 [facility] Monocytes [#/volume] in Blood by Automated count 0.52 10^3/uL 0.00 - 0.90 [facility] Eosinophils [#/volume] in Blood by Automated count 0.09 10^3/uL 0.00 - 0.70 [facility] Basophils [#/volume] in Blood by Automated count 0.01 10^3/uL 0.00 - 0.20 [facility] #IG 0.01 10^3/uL 0.00 - 0.10 [facility] #NRBC 0.00 10^3/uL 0.00 - 0.00 [facility] MANUAL DIFF NOT INDICATED [facility] RBC MORPH NOT INDICATED [facility] spital ID Date Data Source [id number] 05/05/2021 03:26:00 AM EDT [facility] 1 OrderSheet [facility] Emergency Department [address] [place] [address] Phone #: ext- [phone] 05/05/2021 03:16 Patient: MARVIN LEAHY Sex: M : 1990 Age: 31yWEIGHT:90.7 kg (S)ALLERGIES: None, SeafoodCHIEF COMPLAINT: abdominal painDIAGNOSIS: Gastroenteritis, Vomiting, Diarrhea, O/E - dehydrated, HypokalemiaLAB ORDERSOrder Description Priority Entered Acknowledged InitialedCBC w Diff STAT 03:42 05/05/2021 Ack'd: 03:49 Bethany 04:37 Lluvia Gardner MD; Sandeep Holder RNCMP STAT 03:42 05/05/2021 Ack'd: 03:49 Bethany 04:37 Lluvia Gardner MD; Sandeep Holder RNLactic Acid STAT 03:42 05/05/2021 Ack'd: 03:49 Bethany 04:37 Lluvia Gardner MD; Sandeep Holder RNLipase STAT 03:42 05/05/2021 Ack'd: 03:49 Bethany 04:37 Lluvia Gardner MD; Sandeep Holder RNMagnesium STAT 03:42 05/05/2021 Ack'd: 03:49 Bethany 04:37 Dick morro Lluvia Lantigua MD; Sandeep Holder RNUrinalysis (Clean STAT 03:43 05/05/2021 Ack'd: 03:49 TinaCatch) Lluvia Lantigua MD; Sandeep Holder R.N.Culture, Stool STAT 03:43 05/05/2021 Ack'd: 03:49 Lluvia Ferguson MD; Sandeep Holder R.N.DIAGNOSTIC STUDY ORDERSOrder Description Priority Entered Acknowledged InitialedCT Abd PEL W/ IV STAT 03:43 05/05/2021 Ack'd: 03:49 Bethany 04:37 GaloenContrast Only Lluvia Lantigua MD; Sandeep Holder RN(Oxygen?(No))(IV?(Yes)) NOTES: v/d Reason for Study: Abdominal Pain 2 OrderSheet [facility] Emergency Department [address] [place] [address] Phone #: ext- [phone] 05/05/2021 03:16 Patient: MARVIN LEAHY Sex: M : 1990 Age: 31yMEDICATION/IV/DRIP/FLUID ORDERSOrder Description Priority Entered Acknowledged InitialedIV NS 1000 mL 03:42 05/05/2021 03:49 Bethanysarah HopkinsBolus : Bolus 1000 Lluvia Lantigua MD; Glory HubbardmL (X1)IV NS 1000 mL 03:43 05/05/2021 Ack'd: 04:02 Bethany 06:24 Bethany BlairBolus : Bolus 1000 Lluvia Lantigua MD; Sandeep Cordon.Sumit Holder R.N.mL (X1)Zofran IVP 8 mg 03:43 05/05/2021 Ack'd: 03:49 Bethany 03:56 Bethany Sandeep(NOW x1) Lluvia Lantigua MD; Sandeepjanina Cordon.NYang Holder R.N.Morphine IVP 4 mg 03:43 05/05/2021 Ack'd: 03:49 Bethany 04:02 Bethany Sandeep(NOW x1, HIGH Lluvia Lantigua MD; Sandeep Glory R.N. Glory R.N.ALERTMEDICATION)Potassium Chloride 06:10 05/05/2021 Ack'd: 06:14 Bethany 06:19 Bethanysarah HopkinsLiquid PO 40 meq Lluvia Lantigua MD; Sandeepjanina Holder R.N. Glory R.N.(NOW x1)GENERAL ORDERSOrder Description Priority Entered Acknowledged Initialed[Electronically signed by Bethany Granados R.N. (06:27 05/05/2021)][Electronically signed by Lluvia Lantigua MD (06:35 05/05/2021)][Electronically locked by Bethany Granados R.N. (:05/05/2021)] Name Value Range Interpretation Code Description Data Marifer rce(s) Supporting Document(s) ID Date Data Source [id number] 05/05/2021 03:26:00 AM EDT [facility] 1 Medication Reconciliation Report [facility] Emergency Department [address] [place] [address] Phone #: ext- [phone] 05/05/2021 03:16 Patient: MARVIN LEAHY Sex: M : 1990 Age: 31yWeight: 90.7 kgHeight/Length: 68 in.BMI: 30.4ALLERGIES: None, SeafoodThe patient's Home Medications are listed below:CONTINUE TAKING THE FOLLOWING MEDICATIONS: allergy medicine daily Eliquis Oral (2.5 mg), 2x a day Escitalopram Oxalate Oral (10 mg), 2x a day Ivermectin Oral (3 mg) 3 tabs, every 6 months Pregnyl Intramuscular (89026 unit), 3x a week traZODone HCl Oral [...] administered: 05:15 05/05/2021 2 Medication Reconciliation Report [facility] Emergency Department [address] [place] [address] Phone #: ext- [phone] 05/05/2021 03:16 Patient: MARVIN LEAHY Sex: M : 1990 Age: 31yThe following Medications were prescribed to the patient:ond ansetron 4 mg disintegrating tablet Take 1 tablet three times a day for 3 days -- prn nausea/vomiting.Dispense 9 tablet. Refills: 0. Substitution permitted. Note to Pharmacy - Rx DISCOUNT CARD: $ 13.59.USE: BIN:[id number], PCN:ANAIS, Group:[id number], ID:[id number].Pharmacy - [facility] [address] ; [place] [address]. . -- Lluvia Lantigua MD Name Value Range Interpretation Code Description Data Marifer rce(s) Supporting Document(s) ID Date Data Source [id number] 05/05/2021 03:26:00 AM EDT [facility] 1 Medication Administration Record [facility] Emergency Department [address] [place] [address] Phone #: ext- [phone] 05/05/2021 03:16 Patient: MARVIN LEAHY Sex: M : 1990 Age: 31yWeight: 90.7 kgHeight/Length: 68 inBMI: 30.4ALLERGIES: None, Seafood Date/Time Medication Administered Medication OrderedStart NS [IV] IV NS 1000 mL Bolus : Bolus [id number] 05/05/2021 Dose: IV Fluids mL (X1)Bethany Holder R.N. Rate: 1000 mL/hr---- Dispensed: 1000 mL bagStop Site: #1 right :14 05/05/2021Bethany Holder R.N.Start NS [IV] IV NS 1000 mL Bolus : Bolus 134714:15 05/05/2021 Dose: IV Fluids mL (X1)Bethany Holder R.N. Rate: 1000 mL/hr---- Dispensed: 1000 mL bagStop Site: #1 right wbmugjl40:15 05/05/2021Bethany Holder R.N.Given ZOFRAN [IVP] (ONDANSETRON HCL) [...] rce(s) Supporting Document(s) ID Date Data Source [id number] 05/05/2021 03:26:00 AM EDT [facility] 1 General Instructions [facility] Emergency Department [address] [place] [address] Phone #: ext- [phone] 05/05/2021 03:16 Patient: MARVIN LEAHY Sex: M [...] every 6 months.Pregnyl Intramuscular : Solution Reconstituted 87735 unit, 3x a week.traZODone HCl Oral : Tablet 50 mg, daily.Xolair Subcutaneous : Solution Reconstituted 150 mg, 300mg 3x a week.Prescription Medications:ondansetron 4 mg disintegrating tablet Take 1 tablet three times a day for 3 days -- prn nausea/vomiting.Dispense 9 tablet. Refills: 0. Substitution permitted. Note to Pharmacy - Rx DISCOUNT CARD: $ 13.59.USE: BIN:[id number], PCN:ANAIS, Group:[id number], ID:[id number].Pharmacy - [facility] [address] ; [place] [address]. .Follow-up:Follow up with your doctor Thursday even if well. Call for an appointment. Reason for referral: evaluation.Summary of care provided to patient via paper. 2 General Instructions [facility] Emergency Department [address] [place] [address] Phone #: ext- [phone] 05/05/2021 03:16 Patient: MARVIN LEAHY Sex: M [...] and water are not available, use alcohol-based engine generator assembler to keep from spreading the infection to [...] follow the diet below: 3 General Instructions [facility] Emergency Department [address] [place] [address] Phone #: ext- [phone] 05/05/2021 03:16 Patient: [...] higher, or as directed 4 General Instructions [facility] Emergency Department [address] [place] [address] Phone #: [phone]- [phone] 05/05/2021 03:16 Patient: MARVIN LEAHY Sex: M : 1990 Age: 31y Yellow color of the eyes or skin [phone] [employer]. [address] [place], [place] [address]. All rights reserved. This information is not intended as asubstitute for professional medical care. Always follow your healthcare professional's instructions.Diarrhea with Uncertain Cause (Adult)Diarrhea is when stools are loose and watery. This can be caused by: Viral infections Bacterial infections Food poisoning Parasites Irritable bowel syndrome (IBS) Inflammatory bowel diseases such as ulcerative colitis, Crohn's disease, and celiac disease 5 General Instructions [facility] Emergency Department [address] [place] [address] Phone #: ext- [phone] 05/05/2021 03:16 Patient: [...] make diarrhea, cramping, and painworse.If taking medicines: Vhoc-ukg-axytopg nausea and diarrhea medicines are generally OK [...] as a full course. 6 General Instructions [facility] Department [address] [place] [address] Phone #: ext- [phone] 05/05/2021 03:16 Patient: MARVIN LEAHY Sex: M : 1990 Age: 31yTo prevent the spread of illness: Remember that washing with soap and water and using alcohol-based engine generator assembler is the best way to prevent the [...] Keep uncooked meats away from cooked and dapsu-hx-ojs foods. Use a food thermometer when cooking. [...] Soft drinks without caffeine 7 General Instructions [facility] Emergency Department [address] [place] [address] Phone #: ext- [phone] 05/05/2021 03:16 Patient: [...] healthcare provider for the results as instructed.Call [phone] if you have any of these symptoms: Trouble breathing Confusion 8 General Instructions [facility] Emergency Department [address] [place] [address] Phone #: ext- [phone] 05/05/2021 03:16 Patient: [...] or as directed by your healthcare provider [employer]. [address] [place] [address]. All rights reserved. This information is not [...] you may need medicine. 9 General Instructions [facility] Emergency Department [address] [place] [address] Phone #: ext- [phone] 05/05/2021 03:16 Patient: [...] or confusion Blood in vomit or stool [employer]. [address] [place] [address], [place] [address]. All rights reserved. This information is not intended as asubstitute for professional medical care. Always follow your healthcare professional's instructions. 10 General Instructions [facility] Emergency Department [address] [place] [address] Phone #: ikn- [phone] 05/05/2021 03:16 ------- Patient: MARVIN LEAHY Sex: [...] very fast heart rate Loss of consciousness [phone] [employer]. [address] [place] [address]. All rights reserved. This information is not intended as a 11 General Instructions [facility] Emergency Department [address] [place] [address] Phone #: ext- [phone] 05/05/2021 03:16 --------- [...] 100.4F (38C) or higher 12 General Instructions [facility] Emergency Department [address] [place] [address] Phone #: ext- [phone] 05/05/2021 03:16 Patient: MARVIN LEAHY Sex: M : 1990 Age: 31yCall 911Call 911 or get medical care right away if you have any of the following: Weakness, dizziness, or fainting Unusual drowsiness or confusion Blood in vomit or stool [employer]. [address] [place] [address]. All rights reserved. This information is not [...] of the following occur: 13 General Instructions [facility] Emergency Department [address] [place] [address] Phone #: ext- [phone] 05/05/2021 03:16 Patient: MARVIN LEAHY Sex: M : 1990 Age: 31y Increased weakness, fatigue, or muscle cramps DizzinessCall 911Call 911 if any of the following occur: Irregular heartbeat, extra beats, or very fast heart rate Loss of consciousness [phone] [employer]. [address] [place] [address], [place] [address]. All rights reserved. This information is not intended as asubstitute for professional medical care. Always follow your healthcare professional's i nstructions. You have been given the following additional information: Vomiting (Adult) Diarrhea, Unknown Cause Dehydration (Adult) Hypokalemia Dehydration (Adult) Hypokalemia Rest.(Electronically signed by Lluvia Lantigua MD 05/05/2021 06:35) Name Value Range Interpretation Code Description Data Marifer rce(s) Supporting Document(s) ID Date Data Source [id number] 05/05/2021 03:26:00 AM EDT [facility] 1 Clinical Report - Nurses [facility] Emergency Department [address] [place] [address] Phone #: ext- [phone] 05/05/2021 03:16 Patient: [...] saturation: 100%. Temp: 98.3 F. Pain levelnow: 10. --03:31 05/05/21 Bethany Holder R.N.Weight: 90.7 kg stated. Height/Length: 68 inches Per Patient. BMI: 30.4. --03:22 05/05/21 Bethany Lopez R.N.MedicationsEliquis Oral (Tablet 2.5 mg), 2x a day. Escitalopram Oxalate Oral (Tablet 10 mg), 2x a day. Ivermectin Oral (Tablet 3 mg) 3 tabs, every 6 months. Pregnyl Intramuscular (Solution Reconstituted 05425 unit), 3x a week. traZODone HCl Oral (Tablet 50 mg), daily. Xolair Subcutaneous (Solution Reconstituted 150 mg) 300mg, 3x a week. --03:34 05/05/21 Bethany Lopez R.N. allergy medicine daily. --03:34 05/05/21 Bethany Holder R.N.AllergiesNone.Seafood. --03:34 05/05/21 Bethany Holder R.N.PROBLEMS:G6Pd Deficiency.Skin Problems.Ureterolithiasis.DVT - Deep Venous Thrombosis. --03:35 05/05/21 Bethany Holder R.N. 2 Clinical Report - Nurses [facility] Emergency Department [address] [place] [address] Phone #: ext- [phone] 05/05/2021 03:16 Patient: MARVIN LEAHY Sex: M : 1990 Age: 31y Insomnia. Testosterone deficiency. --03:36 05/05/21 Bethany Holder R.N. Sleep Apnea: (New diagnosis, Seen Thursday in [place] for CPAP treatment). --03:38 05/05/21 Bethany Holder [...] mL saline (2 previous attempts by previous [facility] staff). --03:49 05/05/21 Bethany Holder R.N. 03:49 05/05/2021 Started bag #1 1000 mL IV Fluids NS; at 1000 mL/hr via site #1 via IV pump. Allergies 3 Clinical Report - Nurses [facility] Emergency Department [address] [place] [address] Phone #: ext- [phone] 05/05/2021 03:16 Patient: MARVIN LEAHY Sex: M [...] Patient verbalized understanding. Written instructions provided in Iranian. The patient was discharged by the physician. He was discharged home. He left ambulatory and via private vehicle. --06:05/05/21 Bethany Holder R.N. 06:20 05/05/21. BP: 131/66. MAP: 87. HR: 81. RR: 18. O2 saturation: 97%. Temp: 96.4 F. Pain level now: 01/16. --06:05/05/21 Bethany Holder R.N. 4 Clinical Report - Nurses [facility] Emergency Department [address] [place] [address] Phone #: ext- [phone] 05/05/2021 03:16 Patient: MARVIN LEAHY Sex: M : 1990 Age: 31yLocked/Released at 05/05/2021 06:27 by Bethany Holder R.N. Name Value Range Interpretation Code Description Data Marifer rce(s) Supporting Document(s) ID Date Data Source [id number] 05/05/2021 03:26:00 AM EDT [facility] 1 Clinical Report - Physicians/Mid Levels [facility] Emergency Department [address] [place] [address] Phone #: ext- [phone] 05/05/2021 03:16 Patient: MARVIN LEAHY Sex: M [...] 2x a day. 2 Clinical Report - Physicians/[facility] Emergency Department [address] [place] [address] Phone #: ext- [phone] 05/05/2021 03:16 Patient: MARVIN LEAHY Sex: M : 1990 Age: 31y Ivermectin Oral (Tablet 3 mg) 3 tabs, every 6 months. Pregnyl Intramuscular (Solution Reconstituted 22675 unit), 3x a week. traZODone HCl Oral (Tablet 50 mg), daily. Xolair Subcutaneous (Solution Reconstituted 150 mg) 300mg, 3x a week. Allergies: None. Seafood.SOCIAL HISTORYNo drug use.ADDITIONAL NOTESThe nursing notes have been reviewed.PHYSICAL EXAMVital Signs: 05/05/2021 03:29 BP: 133/85. MAP: 101. HR: 73. RR: 16. O2 saturation: 100%. Temp: 98.3F. Pain level now: 7/10. Have been reviewed and appear to be [...] CT ABD //T// PELVIS W/ [place] [address] ---------NAME--------- NUMBER SEX AGE ADMIT DISC. XRAY# F/C TYPE TOSIN Rivera [id number] M 31 05/05/21 [id number] E/R DATE OF : 1990 M/R# [id number] #: [id number] TR-07 LOCATION: TRANSCRIBED: 05/05/21 5:[address] ABD //T// PELVIS W/ IV ONLY [id number] COMPLETED:05/05/21 5:05 [facility] [id number] Reason(s): Abdominal Pain PHYSICIAN: RAISA 3 Clinical Report - Physicians/Mid Levels [facility] Emergency Department [address] [place] [address] Phone #: ext- [phone] 05/05/2021 03:16 Patient: MARVIN LEAHY Sex: M : 1990 Age: 31y == R A D I O L O G Y R E P O R T PATIENT HISTORY:CT ABD Pelvis W IV ONLY Dx: abd pain cramping nausea. actual dose 701mGy*cmPatient received 75 ml isovue 370 lot# [id number] exp 03/2023. CorrecT patientcorrect side.Patient male. Patient shielded. Verification of 2 patient identifiers performed.smw / BURLESQUE DANCER (DICOM Hx)EXAM: CT Abdomen and Pelvis with IV contrastCLINICAL HISTORY: CT ABD Pelvis W IV ONLY Dx: abd pain cramping nausea. actualdose 701mGy*cm Patient received 75 ml isovue 370 lot# [id number] exp 03/2023.CorrecT patient correct side. Patient male. Patient shielded. Verification of 2patient identifiers performed. smwTECHNIQUE: Axial computed tomography images of the abdomen and pelvis withintravenous contrast. / All CT scans at this facility use dose modulation,iterative reconstruction, and/or weight-based dosing when appropriate to reduceradiation dose to as low as reasonably achievable.CONTRAST: with intravenous contrast. With; 75 ml isovue 370 lot# [id number] OMPARISON: None provided.FINDINGS:LUNG BASES: The lung bases [...] pathologyevident. 4 Clinical Report - Physicians/Mid Levels [facility] Emergency Department [address] [place] [address] Phone #: ext- [phone] 05/05/2021 03:16 Patient: MARVIN LEAHY Sex: M [...] 27) 5 Clinical Report - Physicians/Mid Levels [facility] Emergency Department [address] [place] [address] Phone #: ext- [phone] 05/05/2021 03:16 Patient: MARVIN LEAHY Sex: M : 1990 Age: 31y TOTAL [...] Normal Lactic Acid: (DERRICK: 05/05/2021 04:19) ( [facility] 05/05/2021 04:56) Final results Test Result Flag Units (Reference) LACTIC ACID 1.7 MMOL/L (0.2 - 2.2) Lipase: (DERRICK: 05/05/2021 04:19) ( [facility] 05/05/2021 04:57) Final results Test Result Flag Units (Reference) LIPASE 25 U/L (13 - 60) Magnesium: (DERRICK: 05/05/2021 04:19) ( [facility] 05/05/2021 04:57) Final results Test Result Flag Units (Reference) MAGNESIUM 1.9 MG/DL (1.7 - 2.2).PROGRESS AND PROCEDURESPatient/family counseled. Disposition: Discharged. Condition: good and stable.CLINICAL IMPRESSION Vomiting with nausea. Diarrhea Mild dehydration Acute gastroenteritis. Hypokalemia 6 Clinical Report - Physicians/Mid Levels [facility] Emergency Department [address] [place] [address] Phone #: ext- [phone] 05/05/2021 03:16 Patient: [...] 6 months. Pregnyl Intramuscular : Solution Reconstituted 34299 unit, 3x a week. traZODone HCl Oral : Tablet 50 mg, daily. Xolair Subcutaneous : Solution Reconstituted 150 mg, 300mg 3x a week. Presc ription Medications: ondansetron 4 mg disintegrating tablet Take 1 tablet three times a day for 3 days -- prn nausea/vomiting. Dispense 9 tablet. Refills: 0. Substitution permitted. Note to Pharmacy - Rx DISCOUNT CARD: $ 13.59. USE: BIN:[id number], PCN:[id number], Group:[facility], ID:[id number]. Pharmacy - [facility] [address] ; [place] [address]. . Follow-up: Follow up with your doctor Thursday even if well. Call for an appointment. Reason for referral: evaluation. Summary of care provided to patient via paper. Understanding of the discharge instructions verbalized by patient.(Electronically signed by Lluvia Lantigua MD 05/05/2021 06:35) Name Value Range Interpretation Code Description Data Marifer rce(s) Supporting Document(s) ID Date Data Source [id number] 05/05/2021 05:45:00 AM EDT [facility] [address] [facility] [place] [address] ---------NAME--------- NUMBER SEX AGE ADMIT DISC. XRAY# F/C TYPE TOSIN Rivera [id number] M 31 05/05/21 [id number] E/R DATE OF : 1990 M/R# [id number] #: [id number] [id number] LOCATION: TRANSCRIBED: 05/05/21 5:[address] ABD //T// PELVIS W/ IV ONLY [id number] COMPLETED:05/05/21 5:05 [facility] [id number] Reason(s): Abdominal Pain PHYSICIAN: RAISA R A D I O L O G Y R E P O R T PATIENT HISTORY:CT ABD Pelvis W IV ONLY Dx: abd pain cramping nausea. actual dose 701mGy*cmPatient received 75 ml isovue 370 lot# [id number] exp 03/2023. CorrecT patientcorrect side.Patient male. Patient shielded. Verification of 2 patient identifiers performed.smw / BURLESQUE DANCER (DICOM Hx)EXAM: CT Abdomen and Pelvis with IV contrastCLINICAL HISTORY: CT ABD Pelvis W IV ONLY Dx: abd pain cramping nausea. actualdose 701mGy*cm Patient received 75 ml isovue 370 lot# [id number] exp 03/2023.CorrecT patient correct side. Patient male. Patient shielded. Verification of 2patient identifiers performed. smwTECHNIQUE: Axial computed tomography images of the abdomen and pelvis withintravenous contrast. / All CT scans at this facility use dose modulation,iterative reconstruction, and/or weight-based dosing when appropriate to reduceradiation dose to as low as reasonably achievable.CONTRAST: with intravenous contrast. With; 75 ml isovue 370 lot# [id number] OMPARISON: None provided.FINDINGS:LUNG BASES: The lung bases [...] rce(s) Supporting Document(s) ID Date Data Source [id number] 05/05/2021 05:00:00 AM EDT [facility] Name Value Range Interpretation Code Description Data Marifer rce(s) Supporting Document(s) COMPREHENSIVE METABOLIC PANEL [facility] COMPREHENSIVE METABOLIC PANEL Sodium [Moles/volume] in Serum or Plasma 143 mEq/L 134 - 153 [facility] Potassium [Moles/volume] in Serum or Plasma 3.3 mEq/L 3.6 - 5.0 L [facility] Chloride [Moles/volume] in Serum or Plasma 107 mEq/L 98 - 107 [facility] Carbon dioxide, total [Moles/volume] in Serum or Plasma 25 MEQ/L 22 - 30 [facility] Glucose [Mass/volume] in Serum or Plasma 96 MG/DL 70 - 99 [facility] BUN 11 MG/DL 7 - 21 [facility] Creatinine [Mass/volume] in Serum or Plasma 0.9 MG/DL 0.7 - 1.5 [facility] BUN/CREAT 12 8 - 27 [facility] Protein [Mass/volume] in Serum or Plasma 7.0 G/DL 6.3 - 8.2 [facility] Albumin [Mass/volume] in Serum or Plasma 4.4 G/DL 3.9 - 5.0 [facility] Globulin [Mass/volume] in Serum by calculation 2.6 GM/DL 2.4 - 3.2 [facility] A/G RATIO 1.7 0.8 - 2.0 [facility] Calcium [Mass/volume] in Serum or Plasma 9.3 MG/DL 8.4 - 10.2 [facility] Bilirubin.total [Mass/volume] in Serum or Plasma 0.7 MG/DL 0.2 - 1.3 [facility] Alkaline phosphatase [Enzymatic activity/volume] in Serum or Plasma 77 U/L 38 - 126 [facility] Aspartate aminotransferase [Enzymatic activity/volume] in Serum or Plasma 23 U/L 5 - 40 [facility] Alanine aminotransferase [Enzymatic activity/volume] in Seru m or Plasma 25 U/L 7 - 56 [facility] Anion gap 3 in Serum or Plasma 11.0 mmol/L 8.0 - 16.0 [facility] AGE 31 yrs [facility] NON-AA GFR >60 mL/min [facility] ital AFR AMER GFR >60 mL/min [facility] Male GFR In terprentation 20-49 [...] >32 mL/min Normal ID Date Data Source [id number] 05/05/2021 04:59:00 AM EDT [facility] Name Value Range Interpretation Code Description Data Marifer rce(s) Supporting Document(s) CBC W/AUTOMATED DIFF [facility] COMPLETE BLOOD COUNT Leukocytes [#/volume] in Blood by Automated count 5.8 10^3/uL 4.2 - 1 1.0 [facility] Erythrocytes [#/volume] in Blood by Automated count 4.39 10^6/uL 4. 50 - 6.30 L [facility] Hemoglobin [Mass/volume] in Blood 12.9 g/dL 14.0 - 16.0 L [facility] Hematocrit [Volume Fraction] of Blood by Automated count 39.5 % 4 1.0 - 51.0 L [facility] Erythrocyte mean corpuscular volume [Entitic volume] by Auto mated count 90.0 fL 80.0 - 94.0 [facility] Erythrocyte mean corpuscular hemoglobin [Entitic mass] by Automated count 29.4 pg 27.0 - 34.0 [facility] Erythrocyte mean corpuscular hemoglobin concentration [Mass/volume] by Automated count 32.7 g/dL 31.0 - 36.0 [facility] Erythrocyte distribution width [Ratio] by Automated count 12.6 % 11.5 - 14.8 [facility] Platelets [#/volume] in Blood by Automated count 182 10^3/uL 150 - 45 0 [facility] Platelet mean volume [Entitic volume] in Blood by Automated count 10.3 fL 7.4 - 10.4 [facility] Neutrophils/100 leukocytes in Blood by Automated count 59.9 % 37. 0 - 80.0 [facility] Lymphocytes/100 leukocytes in Blood by Manual count 29.4 % 25.0 - 40.0 [facility] Monocytes/100 leukocytes in Blood by Automated count 9.0 % 3.0 - 8.0 H [facility] Eosinophils/100 leukocytes in Blood by Automated count 1.2 % 0.0 - 7.0 [facility] Basophils/100 leukocytes in Blood by Automated count 0.2 % 0.0 - 2.0 [facility] %IG 0.3 % 0.0 - 0.[facility] % 0.0 - 0.0 [facility] al Neutrophils [#/volume] in Blood by Automated count 3.46 10^3/uL 2.00 - 6.90 [facility] Lymphocytes [#/volume] in Blood by Automated count 1.70 10^3/uL 0.60 - 3.40 [facility] Monocytes [#/volume] in Blood by Automated count 0.52 10^3/uL 0.00 - 0.90 [facility] Eosinophils [#/volume] in Blood by Automated count 0.07 10^3/uL 0.00 - 0.70 [facility] Basophils [#/volume] in Blood by Automated count 0.01 10^3/uL 0.00 - 0.20 [facility] #IG 0.02 10^3/uL 0.00 - 0.10 [facility] #NRBC 0.00 10^3/uL 0.00 - 0.00 [facility] MANUAL DIFF NOT INDICATED [facility] RBC MORPH NOT INDICATED [facility] ID Date Data Source [id number] 05/05/2021 04:57:00 AM EDT [facility] Name Value Range Interpretation Code Description Data Marifer rce(s) Supporting Document(s) Magnesium [Mass/volume] in Serum or Plasma 1.9 MG/DL 1.7 - 2.2 [facility] ID Date Data Source [id number] 05/05/2021 04:57:00 AM EDT [facility] Name Value Range Interpretation Code Description Data Marifer rce(s) Supporting Document(s) Lipase [Enzymatic activity/volume] in Serum or Plasma 25 U/L 13 - 60 [facility] ID Date Data Source [id number] 05/05/2021 04:56:00 AM EDT [facility] Name Value Range Interpretation Code Description Data Marifer rce(s) Supporting Document(s) Lactate [Moles/volume] in Serum or Plasma 1.7 MMOL/L 0.2 - 2.2 [facility] ID Date Data Source [id number] 04/19/2021 12:34:04 PM EDT [facility] Name Value Range Interpretation Code Description Data Marifer rce(s) Supporting Document(s) Progress Note [facility] PWLUYh1fGqIQFoCm15/PUXcbNFJst8HlKTbkFVf8QEukOJJwB7QtRJH3yS4mUQM6IXwEGaPzPnPaTpWz lbm [file] Juan F+9mU8FXcYBqynizZQmUJ+qBV+O+7tXPRQR20gFCHGxob+Ik0FnB074PH+8/UF0EWEDbb1EA3QOMq [file] qhTYFEIaYjVpdzLLknPDYUNo7Z ID Date Data Source [id number] 04/02/2021 09:10:27 PM EDT [facility] Name Value Range Interpretation Code Description Data Marifer rce(s) Supporting Document(s) Discharge Summary [facility] YBYWEd3gCrROOoYp97/QGFglKCVlk6GhAXmkMEv7KGmhLXTxP8OuXEE6dF6dPKW8LOrIFqSxJlNjDJN4 lbm [file] AgICAgICAgICAgICAgICAgICAgICAgICAgICAgICAg TXCmBITqDXQiZMIuHVZoSMDyJTRzUATiDTZmRDTwKVXvOTCmDQLnEIYbXIAnFXRaTESoCPExRRVlEZ2H ICAgICAgICAgICAgICAgICAgICAgICAgICAgICAgICAgICAgICAgICAgICAgICAgICAgICAgICAgICAg ICAgICAgICAgICAgICAgICAgICAgICAgICAgICAgIC SiZMYdMPTyOZ1YOVAgDDDfZQYnRYJfCMHjPFBkRLTtSOFbHGEfDSVbJPKzWJGqNVJwELWhPFRvVOQuEF DbIJMiMWHeLCZnUPYdACEmFALyXCNjVMRyWXRqHCIhDKBfUMKyQOWlJVGcHHEpPGXdJM0EYYNuIGBiXI AgICAgICAgICAgICAgICAgICAgICAgICAgICAgICAg ICAgICAgICAgICAgICAgICAgICAgICAgICAgICAgICAgICAgICAgICAgICAgICAgICAgICAgICAgICAg ZE9CGXNlVSZyPPFqKOGtHWBwDFTvGWUdQHYmQPUnFRSfOVQgIGNeLLZxHZUvBXVdTVIaYZNjFQSdIVTx ICAgICAgICAgICAgICAgICAgICAgICAgICAgICAgIC WnALHqHNRkEFAyIC7UTDUdIFGcZAXrHOMgWKKbHBMsQMWlLSSsPZUdLFDvYBAkUEUyRPPdTWMbQZCjGK XgHZQiPXDrLLTnMZAuJPBaOQPbTFAbVWQaLPVdSOWxRNNuVIMyPEUtMKWfLDKhIDJdTSCjTW2VKCHvXD AgICAgICAgICAgICAgICAgICAgICAgICAgICAgICAg ICAgICAgICAgICAgICAgICAgICAgICAgICAgICAgICAgICAgICAgICAgICAgICAgICAgICAgICAgICAg YJEsIU7TZCOvMIUsQBFnARSsCHTvDLOmZMBeNTGdVDBpPESiRRWiVJUsRKOmXVDaBZQxNYGqBWIiJJMl ICAgICAgICAgICAgICAgICAgICAgICAgICAgICAgIC BfPAKkEYNnREVzJRNqZF5PXKQvTKGmQPQaRVAwSTRxJFEmIUYyVPZsVSHgAALyNGBoGSEeVREuFNAtIQ GcTBPtKDSaURLsPRFoNYCfJVTlSADlSWEcPOPeBCRbCLYtLUUyFMMhVIJxRLLpBCOhHDNvLODbFI7MEG 89jACkc0Z4WPEcDB6exzu/Is2OBFlcbzQvgUCbHT5E UnXcTZ0pnt5MAjWgFI3omy8MGYiFTjLxQ2Q8iQQpQGHuCEFUHoQeD11rLEyjTy96ZGykZXVqWtIrYKc7 Nj0YHwEeF3fsYXIxExT7XDSoAdJ0IGUmHbQ3SBPrHlLnHMZaIHKoNUAtMNPFZGF2HRApMgUmWpOiTSAs XYyuBDFGTISbZEOaEaDjNiUmAUVfRoAwDTGEKSY2XX BoLyApCWMwXDCyKuAnZVGVTC9VIuXhT6PdhT05DHV8HUo+He1MOX6dp7OiBSu7DeVhPZ3dvm1MNQnORb GvJ2PikpO4GXEyNYPkXn7SXCNjUMNpvPD4WqIkQHBIPrEjB8TpiD48BQODYk9+DQplbmRvYmoNCjYzID Ynv8OqAUo7BR5ONFOsIEi1jFUaHZyxJ0yrfthqCPD5 oZ7qencaVfavA2NpyCyum6LujUHTDHMslKo6KJPGQiLNFCZ5GHUiJgGgEgFtHAMmPqo7LISXSZaCEbHm B0Bjq8KvAfW4DRIsJnVpKMuaTFYcXbK6VE33cPaqFC2HRLRmGFIxDM64RCVcBLNqQe5LYy3TNuRuZC5e ts0UBoXcEULrPkeUFei3ZMujNY0WnOBwO9HlqCNcz7 cMOvGjT7RENUSxJXHwVu0TIWNsMtDaEOQdGHfiNM8oPBVoKLTBvYubghU4JK0DFM9oeaSrGZ2TTjIcLq 2gLm0RBnYuN4LyN7RgCPRvCYRLBWrrQF2LVUahBV1nSC4Jb1DSxQCoeD6rwt2LRKXpVFSvGnichu9CEt kbG2Z5eUydWOQqPyTkQGKBXGseCH3HPMGwDZF6RFZ3 XNEhASQYQgUkW71eRX1WE5Iwk16vOaR9NHXnAdBbOSagIU58tHudhrJggHStmKhaEB3NZl5+DQplbmRv XtbGPcuiCNBCMoJbJzHXDhPpBXGjYFRcOORrDqS8XuPvOm1FZLKoSVPxKWDyPeKzTGHyXLTrHIkyKUOk CEi2EbCfKHRmKQXiDO5GFnTwTVRpGOOoIBMoYLOkEC Wpqw9THFDsREVmAGO4TzFoIUGhDCJcAMhsGVIzBQP0ZaK1AUKlAJCzNP6XNoQsTGOkGRN3BvadQGWdIK Jrwy7YDPEfYUKvHRLrOUBuUZSeCHOpUTzvTIHcNSX3IlMpUOKtCQZwKR4ROpGtXNPnXLLfGZOhFLYzGI Wzaz3VFASiGGRjTBZ8GcNoIMVqZOMvIXtuBNGmIJA2 JCo6AUNeWGCiLA0KYsVgJUQsKUjtKXOwMURnIKPjry5SGQSuJAQfOqX8FgGwCCCiPQSrHCbgMBCdSYEp JzD0NRXkZSOvLT1QUdHxLCTcGjJfHZPaJOOhZVEulm5LWDVqVGMbNEWcSIMeISIwIXIvBXczQEItFPU0 UUZ9CYUvBNMbGP9PNpZlUYDxJds2XGXfZGSlCRIper 7MWZZoRROdWUMlUeYoQMHnDXBvABpaCZOfCKNzHtY4VBVdQAAsGB1TUyJySIFuRuNmDFUbXYLvVMKmnz 3GGPSmRPYaURI2GyVzUCIsQIWyPRseGHQxVLC8AcX4IJQpXLHeAT6XMjPqHHFaGlv2DNUbEDSlUPSyzq 2CEFOzUWL9DfG3NVBaQOHyUPCcHXcyGTGyMEVyNOo9 UXEyDNQzSG7HVgCwTKUhUPTkKdGpBMPoKJSobb3QTPYkYIO6DdC6YeRdJMAlRBFkNAytSXQzIOS8PLL6 QUWdCEOsRF7YKbVzUWYvOJs5LIMfKGJaROSbmp8HFPRiLHS2PrT1SSCsRYXnVJFzOAqbTWZsLNRxKjj9 OQDqFUZgTO8UFbPfKRIwTUJ8RKHbPTQcNUMrbo5CGG AyWOW8Hth5ToDoVXWhFLHuVHnrFMMmJYR7QZI8TGMjCNKkDO6BNmBcAOWbKCCaCFSeCPMsKHHlya6YJP JgJDI3UHZ4WaKwKIOeYUDjYNosURXjECA7MUw0BHXsKIDzGO1SXaGvLOOxNIE1NCZpGIEyIYTorl4IBR FhAUE6BtP2IOMjSWDwMWOdRZpxAUYrPJB1PAD0YFWn ACUqCE1TKoTvVXIvPMp6NFRsPKSwTEFjwx0DESVyYJE8Chh4NDWxAOVvFSGiTIpnZYXtIBA6ORg4XKHo PHQrLE3BXpWtRZHlEoe2IhXnEUGtPSYgrd2BQLJrYCT6TWl0VOBiLPPbNQNuBAghLEHbUSpiTWqdKWRi ZYKmOU7DOpMgTESfShZrLpnrLHNiFTNfxc7BDDJkQW A6VVI1DZQzLTKtDEWiLSdiWDCsBBo1GkTiTKSvWQSnEN9RYiGjMDFqFlM2VIbaKMDtXKDfqt9UJDGxVB R2OMp4AWUgLXRhBDImTZohOISuJDn0YAMgTCAqEVCtEA3EJkPmRSAkLaIvYCiaNQZcHPPeth8JJASvMY V6NwG9JLHtKGQlTNLrHOzuDAUaBVw8XkveUHSwJXXt XW1FLgKpZRXvMqg7DtXoTQYqNFCnzd6IYFDlMGG6Jpm7EwScARLcTSLyOAooTXKbVZh1LCX8PUOuOHXc YS5ULoMmHVOzKojbJERsWFOsSZKugi7HHFOhLNX5OQV0FTGkCVTmZPFtOCgkQKSrHPmmYSr6KEXfTQJn KF8GPyAfANCcSUDjFwPgOQSfOAVgdq2ZHTYtZSD3XQ BrHPHwGLDoNWNhHEm1tfSyjKQyTZa1LO2UZ1EwozTsGoZVVv5Tl524SNA4BNRvQw7SL6udUc3wYJWzML ZNEs3FZVo9B0JxQFukWzNqS9YxDiAaUjXlPpJnYGzkBnYtLvqqWaR+HXrhFxN8GJT7FHRdDAExU9XyYH DcOZDmSYWnIjKkZKH7Bi8kYSRIMl3+FUepgRHnjOatVZTUOixrJhXbEVguBPENOl1D ID Date Data Source [id number] 03/03/2021 02:31:00 [place] [address] OPERATIVE SUMMARYNAME: TOSIN Rivera DATE OF : 1990ATTENDING PHYS: BENITO WILLETT MD DATE: 03/01/21 MR#: [id number] OF PROCEDURE: 03/01/21PREOPERATIVE DIAGNOSIS: Left ureteropelvic junction obstruction, s/p Left endopyelotomyPOSTOPERATIVE DIAGNOSIS: Left ureteropelvic junction obstruction, s/p LeftendopyelotomyPROCEDURE PERFORMED: Cystoscopy with left ureteral stent removal.SURGEON: Benito Willett MDASSISTANT: CRISTINA SkyTHESIA: Monitored anesthesia care.ANESTHESIOLOGIST: Nelson Gaytan CRNA.ESTIMATED BLOOD [...] left ureteral stent removal.DETAILS OF PROCEDURE: [address] [place] [address] OPERATIVE SUMMARYNAME: TOSIN Rivera DATE OF : 1990ATTENDING PHYS: BENITO WILLETT MD DATE: 03/01/21 MR#: [id number] a detailed informed consent was obtained from [...] rce(s) Supporting Document(s) ID Date Data Source [id number] 04/01/2021 12:20:57 PM EDT [facility] Name Value Range Interpretation Code Description Data Marifer rce(s) Supporting Document(s) ED Provider Note [facility] LLJPRu7rImFOLaJe98/OANmpIGFsq1EgXXbfCTc1GLitWICwJ2BeWYD0kB8sWFP8WRnGSbKyCfGtJMD9 lbm [file] pzWA9YHYY+Jayla+Yo9YBHScXGZvOMJbZmTiKCRIZvFaL8EkU0VCg0XcX7UoIA13wZlcwvLkJCzmDG6ESB 7eQIJqLEVPRL7WyYVxbI4nlyC8RUQvMMXWPqAnN30qoPHcTDLcRLD2PRRaWz0OWMZbF6OuboOvcYjsoy MyNZXwCYPZJE1NVLmzlnQfkLTutGapKZ08tBwnMV2N Jc1IUeAaFH2zcz2VmVApOr1YACY9ZT8HLXCoOFUsHGJmEHV1FYHfLcSkSKvuDXFaOIMfCOA9KZAoEGUv PF5GBhNoLOVsCNHrLjKjFOFiSAMbqd3GODOkKII1YbBsFcQhHLAcTWGsKSrqRRWuJPAlULY2NRNvIBVw BZ2ANuTnCVBkYGU4JdxbRZJaHDWbqn5RQQNlPPGsUr I7BaHgVNLaHAAfRSixVXGgBCO3Vbu3RLTeZIDnXI7FNhCgRVJsNFD8IXIjZFSsVSAiuh2PDOMbBSBoWP tzWpCkMFRtOBCjCOhqYDGyMTW1MPZ7GNFrKPNgDQ8HHgWtHJSkHRB4WVxsCQFyISFajs6LYYBiIFFcSe K1KdYdEJIjGSMiKPsaQNVvBMQ4FzQnOQQvZYUmEY7Z JyCmMKQlCJY5VGuzQAYfQWUjov6JINWpXSGnAeU9YIWxZYYqOXAoCClkGKWfIFB5Zoj8OZGtXDGkHV5H EqFpRVRbVeUbOBRiEUFuYBNggn7OLXCmRUQeGAQiFtOgXOZpRYBgKYuwTKWdITV5CsL4ERSiXCFhDA0T QdCcRHImQyN5HaLhFSSlCUMxnf3NWOUvZPSgOlU4Ax UgITYfMFNrGVjwHGHkNND6ECFhZWGuLWBxKE0DXzDcDNJdEbH2VAEkQIMoSNOvqy7NFFZhENIyLJu1FY SlBCMmGYUkFFehYCUnDNGlXSGpMBVfULFeZE3UMvQaOXMoMjY2IDfbTHKeGBDbyd1XOPJaVUTlLJL8MM LqORDyNQNnYZkpSGPaUWQ0RMg5GPJeGHUvBK7KIrAy FRScNuOvQKooIGUoBHPiha1KMUSoHKYaPiNjRfVwRYXpBQAnPZfeKBYpDJE1OuU0CRScQWOiCM1EHgVm SLVgWlR2YUakQJAhTKOkft5FKDCbBDOcGsA4EyCtEVVqPZKvARfyFMHvAGN4MCY3KERdKKPaAN7MYtGc GKZqExg7WDdgOJXaWPWsnj3JFCKmBFN4ESQzVqKiXW PeFKIsJZcpOZIfSNS5OMHnJPMjYSQfEW5JFzVqGHFbTGp5GDnrBHRyAOYyzh7AJUVgZHU5ELy3TXQeQK JkVPQpHQilBYLrMMUeRMT9XNPkSUPkCY2RMqUxMGJlHKC3GOocRVQiFOApoy5KVNZsHAR3OUW2LbIiIE DbKHGfHRxcPPSmDYBfEtA9ROZhPEUlRD2JEhQsCHYx PYO5VOuyMCRaVMOdby1YOBVfEUC5PhB7JOInYHPhASAuLMcpWOHkHWPpTgT5HWOlNKEtQS9KYxFqDWDz SWH2XuEnATAkLHDycq6ZTLDwJNN3KzqbFcUfQQMmTOCbAPmyCBIkAFHeRRMeURGdPHGqSF5VPtGmJCMn WVVcUTDkNMBcWZDvwv2CAIGmFBG1HKU4XdJePRQdTZ WrBSleUTOiHYC4VSL3RUNmLLGyHT6OUlGjAZDfJDL2TtZwNAYwOMHonk3LTLUfZKF8LGrxMWDgUWCsXD OiNZtrLOQmKZM7OLe4RIDmLKAtJC9RLnMcHBIuSLDrEjfoHNJlXVCrlf6TQTGpJLV9XAB1XoWiXOUdOY ZiVAbeTIEzVSQ3PQQwNSToOSIoMP3UTmVhHJrnNWJX Xzn0GCexE7u8XDV5AQ7NZ1Xdp8GlVNfmYGMVAKzrSV8xajCjXRPcVo2YS9cWMmc4A2KsJ6DjOyLcGjS6 IFRhYqnwSQgpMTNaPjNtUiCsCe9zVTPoHCPcD8G8EOOwRav6EBGgHZUaNrU1YyG6WlCgOyYzQeYoCM3J Gh5GLcA1SJW0wAHmCl3MHGM6HoUOTlQzEU9IAEi= ID Date Data Source [id number] 04/01/2021 02:08:27 AM EDT [facility] Name Value Range Interpretation Code Description Data Marifer rce(s) Supporting Document(s) ED Provider Note [facility] PELXZw1iHeFHIaRb22/PABljJLTmv8MhQDngRCq8QZftESKuH7MzCEI2nW5gPCP9AUcMMwUiUoGxVEN0 lbm GrDsyEFtXrBZAeVlfPUfOuCCnuNhopdLOtDZ1BwND1DDLrR33iPGDlFSXvA7PpLZEaAyR+Na7GJZNvcW AdPJ2LDsnJ9C2Tj4xTKl9vTd6ehteVUFQKbFQwe2VoLZ5vjCTcP9HKGWWFYFPyTSpS/1V+TmWH0Rj9OP XZDXqU36Jzx3U5K+89MwCEyP/0hgi8kvBIPz304VPE lRhPxR//AMqLdGNaoYgLGUW1BKfr/BrI5Ewsm83pdXdGuxRXig8Az6CEakDlBEVxUl8WWx49blpB7Yo2 2RMnozi+q81UG9L40bSaYOqKGavQj/X2rRj+DzmYgDpEzLUB2CXROhqs1Ip9x4On+JKYf5RvhYdDGrVD gd9uusYmtHfXfHA/tyL1vDCZkaPcZ1M+nH+fXCdsnM 9wbWWShodk3Dyhn1PMfWqS0vkKKtitL9KSHHwEpdrBMFq7LEBMU9hW/R3UVuDYJDVyNtodHilrxaQk1O 1EyYLEa9j7dqFB+67k8wCiIRCW/EtgwU9ewenQDlZeKfdatL79TnGJploBxfeRCm/sulck8ynXSdp5XR ASTdoGztLjSwrf9TWDxWI7xnNGrvZfCvvrl/WQTEYH F2H1VxwmRqp3PdK7FsyqO16ljUOuTOEu1gp3PSrfrCmtVsPHM7GMbCp1qNfkRjYXGB5QKI0Lw+4W5iuS 8pXrsj+jfLMm6E0H+hmxd+c0zp34LPOmFH5YDly3fxJAAc06bHIAXuwab5Q/muw6TmklS5IfHTPMcluK 9iwPb3noHqg3Hj+Dow8k62ciFb072BnHulbC9qdwiG fiJLqejCezqN/fSDb52YVJgQFzBqJDlISiP1KwCT6g3OX7ikT+v9P0zYVvBQs6GV+[place]+eHV0AUVEe0a [file] OsP8LeDmK2JqM1LeMnJO4COz1FEnA3KBK0zOWhGo9YDTw5NbCYOeXeIR6AKPo= ID Date Data Source [id number] 03/28/2021 06:02:09 AM EDT [facility] Name Value Range Interpretation Code Description Data Marifer rce(s) Supporting Document(s) ED Provider Note [facility] YRZQUs1yBgPJKxWt47/BDJkqCSRqj7XwGTjiBBf0NNgtASBpS9YoKVL5xB4dRAP7FMmLSyIhIuXxGARq lbm [file] NzY+QY6pZYz+Kf6Fn4NeshV8pdPaOMi0GMI1Cy1AFKLIP4FAOk== ID Date Data Source [id number] 03/27/2021 09:48:23 PM EDT [facility] Name Value Range Interpretation Code Description Data Marifer [facility](s) Supporting Document(s) History and Physical [facility] GBRQKt5dYvYHPxEc33/EVWpuITDqu9NzRWzsVVz1WBayBLYxX0ShDDD7jR5lAKE0RHwQMbGzZoOoGNE1 lbm [file] AgICAgICAgICAgICAgICAgICAgICAgICAgICAgICAgICAgICAgICAgICAgICAgICAgICAgICAgICAgIC ANCiAgICAgICAgICAgICAgICAgICAgICAgICAgICAg ICAgICAgICAgICAgICAgICAgICAgICAgICAgICAgICAgICAgICAgICAgICAgICAgICAgICAgICAgICAg ICAgICAgICAgICANCiAgICAgICAgICAgICAgICAgICAgICAgICAgICAgICAgICAgICAgICAgICAgICAg ICAgICAgICAgICAgICAgICAgICAgICAgICAgICAgIC AgICAgICAgICAgICAgICAgICAgICANCiAgICAgICAgICAgICAgICAgICAgICAgICAgICAgICAgICAgIC AgICAgICAgICAgICAgICAgICAgICAgICAgICAgICAgICAgICAgICAgICAgICAgICAgICAgICAgICAgIC AgICANCiAgICAgICAgICAgICAgICAgICAgICAgICAg ICAgICAgICAgICAgICAgICAgICAgICAgICAgICAgICAgICAgICAgICAgICAgICAgICAgICAgICAgICAg ICAgICAgICAgICAgICANCiAgICAgICAgICAgICAgICAgICAgICAgICAgICAgICAgICAgICAgICAgICAg ICAgICAgICAgICAgICAgICAgICAgICAgICAgICAgIC AgICAgICAgICAgICAgICAgICAgICAgICANCiAgICAgICAgICAgICAgICAgICAgICAgICAgICAgICAgIC AgICAgICAgICAgICAgICAgICAgICAgICAgICAgICAgICAgICAgICAgICAgICAgICAgICAgICAgICAgIC AgICAgICANCiAgICAgICAgICAgICAgICAgICAgICAg ICAgICAgICAgICAgICAgICAgICAgICAgICAgICAgICAgICAgICAgICAgICAgICAgICAgICAgICAgICAg ICAgICAgICAgICAgICAgICANCiAgICAgICAgICAgICAgICAgICAgICAgICAgICAgICAgICAgICAgICAg ICAgICAgICAgICAgICAgICAgICAgICAgICAgICAgIC AgICAgICAgICAgICAgICAgICAgICAgICAgICANCiAgICAgICAgICAgICAgICAgICAgICAgICAgICAgIC AgICAgICAgICAgICAgICAgICAgICAgICAgICAgICAgICAgICAgICAgICAgICAgICAgICAgICAgICAgIC AgICAgICAgICANCjw/uKCtV1qjsFMoofQ1K3jwZq7P Qe3RLB2ya2WzIPBeZTocihOqDznIMsPdUMMpMqpLMpe8GCmxLO4VxLGqH6SiR4MwODpgXI9ULEQyGFTd zEHwFJQjBFSqEwV0DBNhVNzpVY7TrOGdVEasGAKoPEQjFsRwOKTqHZKxDOXyTOKxQOTXTDOxTHHcXsYy WHZfKSIcEV6EBMVsJ577upTbRn2TMd5FNdVwKW7bkw 0MExasYTSvUavSRai1BCnpNE2HoXHjfALzTZWzLAUAHtJoW9yrd1GxLchfCLZTJBjvMW2Bt0DdeGYlTN o+Ul7DYT5kq3ViRJqqREFmKJ0xru5YMZdIVlBtR5HhtYleXZmkARTrnBKUZDWnGYDfNAkeSnI1NDPPUM ZddFU4ApR6EuViItGhEKG3BZdqFP7bJYasJK7KLVA0 JSmsABAsKTEzP4xQMcNxYMDmNpZqpZbcVM4EZsFmN8DrvoBviXNxCGOpPSKVWp2+DQplbmRvYmoNCjQw KVYsy5NfXFj0FG4QSPFkQGawMZ1DXWHkuR9lYDccFY4GHiJkTjCuZSXJOqCrW97chQGqHTs5L0FjShGk ZGVkRmlsZXMgPDwvTmFtZXMgWyBdDQogID4+ID4+DQ ymVI7MMDcmisGyEONgEn1WPIYcNGWsCW3fAXUuYYGzF1F9eJemCOZSVtDsB1aqoejtAL3sLGQqY012wK dubiBrRTB9SGBxTy2MUQLhIBE5XMHysSGkKmzrNVSVVGwrOY8RiTTnQLA1yZ1tBVwnGSEaNOUvE3tMAx QnhQarZZ00oCriveWxaYObDNo+Hi9WSU7kr4AvIKt1 lvFvLXywNMPfSSvoUGGlIXIjERFdAHW7PMS2JBMZGjViAVCcYCMnUTpbLUNeKWCiio8BNQIdSOWpQvlg QyGzHAKaTEYzXXxjQFWcKYO6AJTyZMYyYNGsJL7QBuDoVUUzYFKqIZzaZWDcLPApbz9ZLOBqWULtIar7 HJNrVNIyADErYYbrLOLxSRKvNIn4MLCvENWcAN8AFa MfLQWhNUV7IVccGBZbXYQrtt7OADKvCPObDaUjUhLmDYFcQALgXJmcFUYmOWM7Jvm2ZNRjPCGhAS9EUa AcGDGdJXy6TQZyIMGjJUQfqo6TECHwULBkYiU3XtSlRICyUHUsFGxsMTHqHMQdUQJ4WGFuYDJpGB2UCo YtQLTtEJXdDdTtFBPfNIWtca1IUQZzUUKcWTO8CfDx KQQnMTKfJWvlBGIgFAN8CYDcNMZrKPWtNE8EViGrYNFrSFv2UBttKQDjYUAngy2CQTGvJFHwMIbrNPZo ZIRcICUiRSsdDTAsLOA2ZER2JOEaTIGvFR8TOlPjHOZsEZxsYOuyJOBmOXYwdb6GDSAhUNKySWI9UZVq VZUvXYJqNLymEDMgGYOoAsPpZLFeKLCbOY3SOgWhCS FaCrD7BJvhXWOiTBTtxk4QRNCxSVFgTRNcXZThKQAvSDFjXYknINBqMGNzAaB1FRCeHUToXS7FNwWhAR ErIeC5EWujVPWoNBUgcn9AAPMsLEDfEdW1ZpLyNDPsBDPdRAocDNAeNOXzHGacUOLcKMIfVR9TSrRyHQ ShCeU6FNFtURKrZHDkdg6VBSScJQMoPqimMXAiOKLt PPPuXEgcIEJcGEK8SMv3GKZvRLIlAO2KAdTkHLLwMbHlOpfrPDBvNJAyty6FVMLrKVCyXVApGtQlQCAb EMZfKYmhTFTgNRF0Ffm3MUYyYHJlZJ9QHjSkPMQhHqBxRbrlPKZrMIMofk3AJNQmOJLfYjRaLZDvSISu CFSyPXqjRQKhYLV7CfJ3BFOdIJCfUY6YBdHiNGQePg oyOgMsUGJnAFQmbp3JJYNnEQWyEZOjZDSeKZVzSZAuKOliIEZzONH5PsW9EHHkPKAmXZ3JQxMaIPPkWv x8ILFwGWHjKEUtpu9WyWAwoWfcbe4BWCgZMq3YqYhbAVGeSBrpPq7qnQC2PPKpRHLSFi3QlcJbPSMtTR CTLRzhEFMdSPd5AquvOpTfGOsaZhO8RJIoB9PuNHZa JUImPWEgB5DkBiT0TiBkVFWsCRFdZ0UnWih4HnO1CqD7RUM5JZR9WgIpPZS+JM0kJEk+Ke3Zn7OppzS1 gvFzETzqKHL8Ip2QRQGLM2LZQl== ID Date Data Source [id number] 03/23/2021 08:43:44 AM EDT [facility] Name Value Range Interpretation Code Description Data Marifer rce(s) Supporting Document(s) History and Physical [facility] SWZRTc4lVeNFBgRx10/NWDaxOJKzi7EsAVkwYIy8IHfdECQqN4VwNMK4gZ0wQPS0TMeIQeLwGqCbLFN3 lbm ZiKsbJAqDeGMYyPqgSTeFqXHnkSknxfUCcWA6UxGG5PFBmJ43mTJFnGDVxW0RuGVDhFZD+Oe1JQNDhgL RbJB7BYauF5N2Cw3kDQb2dJG0FMrmPUpUB0B9tQHtnvMZT6hjNOgXqFjUzDmA55RUqKp+yS1kEDcaA17 ZTNsT2g/ID6SBrfr5sj1MW+t9/9SPdZ8hq7b/l1zB2 1NWd+ire8Tji37OJGt/KMALZG1ORyS9Oi2g84db5RsoL1vqXAwGX2/VsDUPFa45VGuZIa0rjy/lk+rB6 eK66w+XyJvmieurzs+0KL6mXF0gP6/twb0Fog6C2ZX82Cdh2Xv1xia2dcjPxMPhhG51X7CFC3Ua2VXSf a6NI+/8O6voo8JWIMY4lwhoOKazAhipcAlXCntOzRI 2bhZ/QwxkOzRolr5UTTijcaFTifCTLVbu3KemQ+gNyABQckfvudxnz1l6F1WvpWjGIYTudpDyI/GjNOJ 07uHyzIVqBAiKAuJqxVs7Bu5mYcvX001E3qee3s3L3lpAIkWa15bWQ7mXdmxoPr+G2kWX0trb8w4gzTY 1fYfIGgnnFoLbgy61IoxSQtrL/DF/rzPivgV9nu598 +J50ZJfb0AivSIr8yDd2mpoyR2eRymYoKXKMQESUlOSPe6kL/ESNWnHGs4QIiZ3j9nEV4GoGE2Qn41jl OMmH7gjrplePA0mUZANy9vcCOjjcWbkcRAQYvmIy5iuaLO0UjOVSbAdItUvfPxumlx84pf0FccXIeOhQ 5GId7NHMVl9xPZHNp/HqIPhw8MO9WgFLhn/osnQuU2 sXYfP1mZfQoWM4s3R2TAla4dakFjMdUlbdnIp/UkInbpML6fVE+KV8d1tPkKKJfq7fz7Vfg6Qvcqyqvn K3xLyG4uQWfGqUqAPPBh10HX6spGimVX7bwR8bisS0itTUrmf1uAdErcAjE0j8JwyxmFrG43z2m5w31t VtL/Yin2CznyKYxhq35IK9V+cDtvvSsRxbqfhVyszz 9j2umyKK7S00H91ohgHi6Q8tAwCD1xqDl+3Sw13pgkDesPp+X621GedjRgLjlxGJsYkh8YNrcIhu84M5 ITHvZ4D6brP+pAQ/9YxVXRK8ZFsaoQfA1Mi6Nimd3JY3mCdQ9OBcgNYNGPLaCNKWUIKV+BcyRz8L72F/ sOMYmu1IdKnly9H2eygptCuHuii+/orQwnKfcIfMtG CgIX+T9IiVO9Piuq2QnltG1f+e4fXkYy2kmaTLOkJB/yudUOShmQ1VrkWvQk5spp2A60wfDePbOfBQWB DxzMceAzxLEfujEPjROaIGajkPyLVw62IR3c1ceSb/cErFwDWMkaOg4CItuCGY0OSMeVI33GeVvQvtbV nEamE156+iowiyt7q7Fu2fQztezZs2vVypyVl2FQ+m BK7oqaMrORa4Rf38yL3Pu5M4ABWcQCqn4LqEkGr+ffpC4ulZoxgtoOD2gCbwAj9gh2dArkL9NbBuu1Du jKfJaC/v6zrKzdyxujZl4NtdffF/JGRw8aFrRm05jbynSevibGFCcYDERkEgn7JuoTuxEdr/PyMYsVtX [facility]+Q2ZCij+pcXSP0KspxCSfH6Uy0CtroF3uNjXP [file] ICAgICAgICAgICAgICAgICAgICAgICAgICAgICAgICAgICAgICAgICAgICAgICAgICAgICAgICAgICAg ICAgICAgICANCiAgICAgICAgICAgICAgICAgICAgIC AgICAgICAgICAgICAgICAgICAgICAgICAgICAgICAgICAgICAgICAgICAgICAgICAgICAgICAgICAgIC AgICAgICAgICAgICAgICAgICANCiAgICAgICAgICAgICAgICAgICAgICAgICAgICAgICAgICAgICAgIC AgICAgICAgICAgICAgICAgICAgICAgICAgICAgICAg ICAgICAgICAgICAgICAgICAgICAgICAgICAgICANCiAgICAgICAgICAgICAgICAgICAgICAgICAgICAg ICAgICAgICAgICAgICAgICAgICAgICAgICAgICAgICAgICAgICAgICAgICAgICAgICAgICAgICAgICAg ICAgICAgICAgICANCiAgICAgICAgICAgICAgICAgIC AgICAgICAgICAgICAgICAgICAgICAgICAgICAgICAgICAgICAgICAgICAgICAgICAgICAgICAgICAgIC AgICAgICAgICAgICAgICAgICAgICANCiAgICAgICAgICAgICAgICAgICAgICAgICAgICAgICAgICAgIC AgICAgICAgICAgICAgICAgICAgICAgICAgICAgICAg ICAgICAgICAgICAgICAgICAgICAgICAgICAgICAgICANCiAgICAgICAgICAgICAgICAgICAgICAgICAg ICAgICAgICAgICAgICAgICAgICAgICAgICAgICAgICAgICAgICAgICAgICAgICAgICAgICAgICAgICAg ICAgICAgICAgICAgICANCiAgICAgICAgICAgICAgIC AgICAgICAgICAgICAgICAgICAgICAgICAgICAgICAgICAgICAgICAgICAgICAgICAgICAgICAgICAgIC AgICAgICAgICAgICAgICAgICAgICAgICANCiAgICAgICAgICAgICAgICAgICAgICAgICAgICAgICAgIC AgICAgICAgICAgICAgICAgICAgICAgICAgICAgICAg ICAgICAgICAgICAgICAgICAgICAgICAgICAgICAgICAgICANCiAgICAgICAgICAgICAgICAgICAgICAg ICAgICAgICAgICAgICAgICAgICAgICAgICAgICAgICAgICAgICAgICAgICAgICAgICAgICAgICAgICAg ICAgICAgICAgICAgICAgICANCjw/lUPnQ2uwqZFtbu P4G5hyHj9ORl4KEQ6wq8GbGWSaEBghfeJgMnzAZyMuFJEoHfzOCbv2JGqiBH4MmEDzL9AnK3NjRXqvNW 3ZJPGpONHtvEAcRBCsKAQmFkK5MMDqKQqaUD4NjFDaGYqsTTFsRJReDsVqIIMdICItAWXpVXPrMWZZGJ UnZRRiMrNyIYYbSZQqDPqtSMQNKUF1JGEyQuXcUYzw BV8Xd1YghAX7MIs+Tx7DXW0gt6VuYVg7YlJwJL8ino5PUQyPCeHrT6UpygG9NVB3LKIaYi4LUDIwHXCy nKB4SAAaROKXSnBcE6FrqG66UILOUe9+LSoazuUyBxuGZbP6CLWtu9UeAAo1EF4XZPAlHZm5qLHrMPPG ORC0BSjalnTxMTIDleNyLLKoQ1DebLcmNsXnHZRvVJ 2gRB8tJWHaZYM4LsK2AVCZBB9WJZPdVITelAGbLQMiVBRMIN3ILCajWTN9KEGijwUuoPKeTHlrRS5LVM JlbnQgNDcgMCBSDQo+Md3SXV8rh9WjPCb9AUZgED8hsk2WWOtLAlKmN6H6nKFwN8O6WYktGf7HQSRyCW VzVKFzSJDPBBazBX8BOH4fpdJ7QQ5RaRFsBLFtZCCg zIJlLHj0O19vqVOsTYpbKG9RUEY+Jayla+Ov2NBAUaPVOrQDMjEwMjZJGQEpPuA7NgW2FFi4UxO1WsMX95 iVlwjzXvAVmpTV5RVH7hUEVvUAXZQU2AoXQhfN0zhvU3JxIyEOEXYbBpF93zhCCaLUWkFYZ3CPJvPz5T IXWcS6FvstOrlHptvgVuHAUnFLDEUB1PYQbwimDkeP CndGykPN21vPgiCD6MAd6XJiJlEB4ogp4PnRGaAx3HUYF6CK0SBCBtQOEwGUGhDIR0ILSbRpMeCJgoXS GaHQLdGXQ1NKHiTKMoBU7TIjVhFLLuBCEcPahyBOVeFJJsiy7HTXRcCLI5YvenGjPcKIFoPODxQAecRX SpAQQlTDS8RAGrODGlHW3TBbSaBWWsVNKsJmdiVZAe IKTvvg9JBMSrKLLoPPQ5WhPdKDGiFOUsHTlgMVRbHOG6HJNaQSAkLEOpEA6SWcShJHSmJGihYCPrTCRw XBTnpo7MGEOdJOGfTOg2JWXhQNAiUPZcBUzaMKQwDMLwNCr5TWJvFXIpHW1TCeVxFGYwGYF7DEBuBMEi DHTfcc0MJRPnLZHkABr8ZXJzQYNsOESePGzhWCMyRQ Z7AUZiFCSbUBVsUU9RQmTpRFBjSVz3SdgcPSAbMCRtnc1GIXHsDBJqWvK1BRJkDREkXVJvFLffFIEqGO TtHGU0PVHeTXHoQN5CUlBaMCEnVyMrTpriHOEbXQQcxc2RWVVkHUNeXjU8WOYsBWJbFMXoWDysFNMnPT V5AgFsKTYsSNJfIS9JEcHpILMiLbm8LYmkSCVlEVQm xd8EILDbQFQqZLvbPZXcKIIqZGWaWJywTWBuAHH1MCB8RUVeDRRwBK7DWvBjXRPsLhhoIIrfZFSdERLe lf4AQZHgMGLlWLJ5SgDpGRJoETLdSLmvXGGqDONuTEY3OXLyQQUtXO5YEqIsAGKbVhI0AGlyLBCeECQd lf3TJCOcXWAbQLVrHyDdFMVqOTJtBUnsSILkLPXfRX LsTMHcCJAuVQ9GOwKvSUPsRhQpKTDlGTVgJOTgtj7MGZAtBYJ2ByN5AvQuZPVrKBPfPUajRQZuGBEkOc T7OBWdJAUrVP6RXlQwUQZtXVS2BFVoXYErYVEail7YTRHcYPK9IGA5WmCnYUHpFALzFMawZIDnZJQ4Ml i3QQNvJHZmYV7PUaYqOEOwEFwhXXDaPCGbRJCqjx4V UVKrJIO7KUH0XNHiWLOyUUEuYZigHVGuBBN6YfrsRVKvCRZoOF5YRtUsOAJoPQp9LgmhHZRuFAOsve6J SWFpNKY9OGM1SJGwPEIrTDXiFRedFEEhBOFaQzXrIGTuNIEqXR3GUcHhLYNeGAP3RRCwFIYkGEYavo2Y RZHfUCB4FXW0ZDUyKMAbUQFzCRrwFEYaWAZbGtBtRV XbFVNnTC0JKkXkTEHdIRG8UoRkDBJeYNScop0CKOBoUZC1YdQvAaYdQRSzCURgTYerUSLhWCNkJExmSI RpUIOnUV6WEmHhMUVvLCT6OQqqSKJlKJZutl1OYXMaWNB6UHXtPIHkMPJfPRXnKRujKHYiUEQ5EZgoWO EqRBYxUM0KZvWjIYkwAZBKDvq3FGjtH9i9LZL3WY9N J4Bce0TvWXgkELFQKTxjPL9vwuCjFTDyOo1UA9yMNlg4BfW7VvBbHVMpSGJxT2ZlOPGkXxF7MyLnGIEh M2FgBq4kETgkSph9TcM8AEHeIgPoBTI3YZX4QEHuNUEmJOFzQLQ6DdViTN4ONr2WFxO8XHD4wPDaXy3S LXG3ZZPDKvYxUS7JQCw= ID Date Data Source [id number] 03/22/2021 03:46:54 PM EDT [facility] Name Value Range Interpretation Code Description Data Marifer rce(s) Supporting Document(s) Consultation [facility] EZZEEz3sAkDULbFw96/UDKqoEGCxz8XmUIpmPNd5DHosQSXaT1RoPYS8pQ0eZUZ7OKoLQxYtAkVyNNY2 lbm [file] bench molder apprentice+CXIsvPZrXKJfQmcZgkWp3cT5tvMLigF23GB7yH1QakQTP2+cN4xa4QfOL+27ju4u9bGdK5jRTLiQ [file] ICAgICAgICAgICAgICAgICAgICAgICAgICAgICAgICAgICAgICAgICAgICAgICAgICAgICAgICAgICAg ICAgICAgICAgICAgICAgICAgICAgICAgICANCiAgICAgICAgICAgICAgICAgICAgICAgICAgICAgICAg ICAgICAgICAgICAgICAgICAgICAgICAgICAgICAgIC AgICAgICAgICAgICAgICAgICAgICAgICAgICAgICAgICAgICANCiAgICAgICAgICAgICAgICAgICAgIC AgICAgICAgICAgICAgICAgICAgICAgICAgICAgICAgICAgICAgICAgICAgICAgICAgICAgICAgICAgIC AgICAgICAgICAgICAgICAgICANCiAgICAgICAgICAg ICAgICAgICAgICAgICAgICAgICAgICAgICAgICAgICAgICAgICAgICAgICAgICAgICAgICAgICAgICAg ICAgICAgICAgICAgICAgICAgICAgICAgICAgICANCiAgICAgICAgICAgICAgICAgICAgICAgICAgICAg ICAgICAgICAgICAgICAgICAgICAgICAgICAgICAgIC AgICAgICAgICAgICAgICAgICAgICAgICAgICAgICAgICAgICAgICANCiAgICAgICAgICAgICAgICAgIC AgICAgICAgICAgICAgICAgICAgICAgICAgICAgICAgICAgICAgICAgICAgICAgICAgICAgICAgICAgIC AgICAgICAgICAgICAgICAgICAgICANCiAgICAgICAg ICAgICAgICAgICAgICAgICAgICAgICAgICAgICAgICAgICAgICAgICAgICAgICAgICAgICAgICAgICAg ICAgICAgICAgICAgICAgICAgICAgICAgICAgICAgICANCiAgICAgICAgICAgICAgICAgICAgICAgICAg ICAgICAgICAgICAgICAgICAgICAgICAgICAgICAgIC AgICAgICAgICAgICAgICAgICAgICAgICAgICAgICAgICAgICAgICAgICANCiAgICAgICAgICAgICAgIC AgICAgICAgICAgICAgICAgICAgICAgICAgICAgICAgICAgICAgICAgICAgICAgICAgICAgICAgICAgIC AgICAgICAgICAgICAgICAgICAgICAgICANCiAgICAg ICAgICAgICAgICAgICAgICAgICAgICAgICAgICAgICAgICAgICAgICAgICAgICAgICAgICAgICAgICAg ICAgICAgICAgICAgICAgICAgICAgICAgICAgICAgICAgICANCjw/zXJjK3seaXKyvcJ8W8qxWu6SMn1S RQ4sm4XnVWBjOEqjroArJrcMBkBmLOOjBewQPfz6OK dsZA9CgSEsL4FcS7GeWNevFX9QDOGcQYUnlLFtUWVhPNMtBzV4KKXuUFreOC6AmHDdGZqkOXKbPIAaXu SiEBMqEFRvFGPzNMFcHBWHAWIbSSCaMmRhSLViTXVtKAaoGDBWPZY2TNMbIpBeKRToBQUnZgGxCJKWFF J4DDUpUaKqVKxoLA7Yo6BfsFVfUT5IFj5APrEpGA6y ft4UFPXyHUAbXdkTLjz2KXslGR2EjQAmeXK9RsQdZWFUGtBxF0imk7OqPLkuMHZSLChzJV8Pz7DttOWu DQo+Ou6ZTA5ix3EcNSb3ZpNhCQ6yln4DCCsPBlMjF0XmvOufTNQoqcQ1sTBuMQW8PXwry4YhVFPfJVRM XNIxlGF5CdP5NiRaDbJeFND4WEDwMT2eWYxpKN6POA A6QAwlCYQzDCDtO8wANwZtJKAcAjAxrSzwDR9VRpSnM6JuyeYrwKT6PrJiYXWKVj3+DQplbmRvYmoNCj O5EFDqx8JwMZq5BR9AEIIwXYuzVM7UVRKgwP1xYVlkFL9DXqR2IYJnKNEAYeEvI70jnIJfYCd5X4TsGh VkZGVkRmlsZXMgPDwvTmFtZXMgWyBdDQogID4+ID4+ MAcxJW6JMIzxtpGwKTSdSd8YVQXpKSYvPR7hIKEyAGQhJ4Q7pYhmZPICTfYzV4ifrjrcWQ1sZFHlL389 oVsfoaGxMJD1HGOwMv0GVPRxPBA6YSKirXPjUGBbKOJKBZjgEZ0YcZJxTMW5fN4gQNqvLXWdZKTwG3tB YpRvlEqdEZ06cMrhbyGrxSVbGZy+Xz8YWP5js4MvBI j8ejPhEXvoVXW5TJikBLMfRXPzSJLzNRI6ATY7FLGOYiCvETQyGFLqDBhcIGHtAOMyiq4ISYPaEVH5UR r1ZTEeKXJbESKoJHonCQQcDAEyVFZ5BAOkBBFiBH0SBjSxIMWoNJYeWSgkAXOnQUKkuw7VRPEjDVRlOl d8WdEpYQExMUFoRCscALEiNSK5UKO1UJSzSLEuHV2O EtPsPCSxPJf0GIjuKXElXILfvp2JGYHlJEQjLCN0MzYcPRQyVHUjRQxyFJZiLKOjVJu5VQZxYPMpGB2Q AeQlDMMfUJEcPKTjOBYnGFJjxd0PYIVsOXUwRaa3OIVzPXMkAPLoFLlwRDQeIEW2COA1ECRcDGBrUG7M DkKoUCXoTCE5HMSiPLOvNYOnai0UQIMqZWMbWrWzPN BaTKHgTZTcUYfoKSViYCB2OIE7DCTkHRZhLG7UQiZjRHKxUQr0NYCoLPEvRXAmwm0VSRNbSGOdRnTjRS EfNLZnQPKcNEksHADsEOQhCiW2MLVpXNGaHP0MAhHvUPFjXwO1PRHcSFCgZIZfmc3FUHQyKONkXvAhKH NtTAOgNWCxNEtzUNIlYFWfOax2JVVqDJTgTO0BAsMm NDRsCaJ9NEEgEHQsQVIrkr2JGIOpPKIrXPTdUJLtPMSuZONjPHghOHIlTRF2KwD9FNSfMVUkVT0DTnIp OCVgMiCfMNOlGUGmMNRtco5RZCQbBQPvISO6QdJaFWWcRUCkLRcxXVMcDCX7JlZ0XTUiTNFdHG6BCfVl ESJoYyP3WHOnCNWkNDLpht7BJIUsTVZhDiA7FcKpCL GvASBbMNfkFFTjYTS5ZmZ4FKIcKHLlJD9JUnEjWTEoDrc4JDuxAJKpFEJotu6TSDSfVFHiCIAdLNZhUP QdNFItRBmjMQCbEHK3QIo8UERxGPUuJZ0STvCrEKSoCtqvSHUmDZQsICUpds1TALWfWAUkPMT9YIBwPO NfDIVgZIdhVPOzDUJvYeJ1WAAoAHBfNW5NAvHmJADd XLW1AofyEUUjXRBfyo4WKIKpDVM6AErtAIZzFIUwOSCnUAujQXQiVGPgBNN6KWCbSHNsIR7HLxLfXOOw EMY1GjExMMCjRSSxrr1GAHWxXTQ5OnF9MNZxIBHpEREeTBguRVAzJIHcDDnuASCvGLSaNX3RSoDaXNXx GNGiIvZwVKCeDRNxmw2KFRHxJEQ8Vbn6ZoHkXWPtTV AyUFhbYTRlEBM5YlQ4UAOwRNUjBL7LIzBqJCWyJZs6PpFpEZGpSRVxop0KFAVgQID8GRZ6KzHeJHXxBO MoALwpKCRgEZV2WEX4CSEaZPDcLG1WLgXeBOXrJTlePzEqUENeCLJwyi9MROAeKQO6TXU6YRQyFYLqYY DvAOayPSClYJB7MTD0DREjBCAvRF1DFzLkUVNeRtDq YdUkGRAuFEPagm8VMWFqHDY0QMP0EyNwUOFkHCWoAHloEQXqIVKeKgJ0GLZcFWWlJS5KJwXpYZMxMdAd TPonRQTpSRBuhr5YVHKyFTX7LersWCXfDXSjWTRcUYcnEYTyMOCfDpz6YIYjUBGwSC9QQzGnGOMtCjS9 XeOnTOMoBHHasa9BtZEvoImvsc9XVYdKZe4YiQwwHD H8YSopKi9njOF9BNUlRTFOUw9ZtwFkBSNpNAMAIMyxJPXaSQWkUHE4SMSbNCukHJDnHGUdIsG1K9BoKT a1VNDoVSI1EhM9OdD0DLV5LWY8JWMiQjV1CQEdOEY5X8Q4LtU3DRL4OBy+UX2gAUt+Pc9Fd5NtvtO9wx VtDYw9EcY3Os2EXMGAK5NCJp== ID Date Data Source [id number] 03/22/2021 10:18:35 AM EDT [facility] CT CERVICAL SPINE WITHOUT CONTRAST [id number] FINAL RESULTInterpreted by:Braeden Macias MDINDICATION: 31-year-old male, [...] rce(s) Supporting Document(s) ID Date Data Source [id number] 03/22/2021 10:18:35 AM [facility] CT LUMBAR SPINE WITHOUT CONTRAST [id number] NAL RESULTInterpreted by:Braeden Macias MDINDICATION: 31-year-old male, [...] rce(s) Supporting Document(s) ID Date Data Source [id number] 03/22/2021 10:18:35 AM [facility] CT THORACIC SPINE WITHOUT CONTRAST [id number] FINAL RESULTInterpreted by:Braeden Macias MDINDICATION: 31-year-old male, [...] rce(s) Supporting Document(s) ID Date Data Source [id number] 03/22/2021 10:03:43 AM [facility] CT HEAD WITHOUT CONTRAST [id number] RESU LTInterpreted by:LUIS MaciasAri[facility] [place]: 31-year-old male, trauma.TECHNIQUE: Contiguous axial CT [...] rce(s) Supporting Document(s) ID Date Data Source [id number] 03/22/2021 10:00:40 AM [facility] Name Value Range Interpretation Code Description Data Marifer rce(s) Supporting Document(s) [facility] ZBCBYp8wGbSLBxKjb0VwHuIrLTUzVC5ddie0Q9W2lIVtT9XexGOgd8dsA4SjS7IaKLQeWPIJJG0ZoUYn jb2 [file] [place]ervoir Caretaker/7XNv6kuYHHINpGO9RDuy9J82rI00lW+hXx1Se9GlixPdPIGpXu3p1gxYqq9irHH4fg6JqXeVoioe [file] aMdy366mnUpshuf6fbnd60yKE26Roes+milk collector+J+7wn9b7IGrjDVGIqI/2n/vwb6bAec5LUQp4iZWd+fvKR [file] Y0bpMKhp+records supervisor+BTWdNVrUOTTPJTyoqHvpLhBy0LAZlmQXoWqg6AjLC3TV/zM2K4yrUZoSBLse9BNIxdS CQ1EkOaxcs22nonqj1NrhEBU+cxilNVJslwAUR2bx/wCpcahcIsUWKte3Stdzx764T34845W1o5ca447 aze5ahl3hVN+jjQFYkoElUB8Ebhad3bkH+93h4liJB LBh0ds9It9+ltTpwegv9Bxui05I+z6P+4Bx6mT1Pj/oLFILnnsrpUfB1wK9ZyLUIAbWosxrgLJhYwWgu nzKLJ47g0rWvHP6U0TItyblLJn4b8yKkFF8W6axwXrA5z2nMPz7pzsNPo0ax9wUsccR8Mz+daY0X63gz V/R4cmhSaD7ncKMbk0mswvCHBt6b3iOYRB4I9WBiip QUCs9p0oQCKB3ek+bf4DBDcXxT5za//XI3ojkm5J91XXF1V8QS05PsPdr68e7Qmk5siu8yzsZ6y+8ri4 S+5ZwNmMkaU6+e83Rwbkn82kg4vxi+grzlcO7x/Eb3cAID0kO29Yn6r4PYeO/pKS/oV+kds6fCeYt2fJ 490up+dDH3me2gMAGbay/Py8lPBoqbhJn3BTK6TGqt xMr+NgOhcLi3Vd1s0IyCvy+/VhDxk0Q42Di37zic26axgLW+80jWK0B/VvKRvS281s4u+ru9zUK/x0gL sW266j36G5arPH8Sk5BysIOcy7j/EY48oc1uKl3DUr9sOatyMTijVRdWSahuE/D0c5chSpufq1R/UM9A PQq9Qr/u30NyTWyzYZlA5rRo6T/TQ3pnrS+jvGg4gd Sa7MuiB/Z8bRjR2LjNTdS4z7b5CrE9kM53u14uBF1Co5V69pe7FvkkLi84eArZHH14/GzQN+gFeoG+Q9 +qQ3EG6QI9cZ6Tt+K3Higbkwg9d26ihmTNpaEtaxweDos6Au5XScytikGzE6oujl+dBnt2y1O/G/qzTe mw6Qb8Ct/QO/NIadifB1899QqNo6s2E0fqpxDN7Ohs r8zqeJjswn9kqydoyRYZo2bLBEmK7dZ04ECh+YJ+dK4uR3aWZ+lj4VttUvbpdcAyZojzK2r9ppq8Uy8R rtQg9Hu0eM9Tc6xe+x47uhFfGd2YmkoO+ga9QC/Qd+g55DTv7o6vs0rBI/QT+gm9QW/QO/QO/ALc4A7B n/e+oKfcoG/QC/QCfYe+Q1/i6y0H0URHqaV+Qj+hN+ jUlxF0sb8F3Y1dd2A0vyPL0kkxm6E5wcDD7vuoq+A4Fq5p3YwYgk/g+Qqer+M5Vd9ejQ6S1vnaE2zrR2 /u6M8d/cizL0l6310+3NGfw7+KKY/gqvjLi25i9G1bPe8p5tlEy4VJhVD3HH842bGU9/xE49rlC/5V6M O/leAt9gVVKLC43N+hXLFeT5zdN3hUpb4tp+FfZbDu 1TdMNDMtn1aU0RUQ2m4M0U2VdoTu4Xjza6+KesK/tiGJhwA2sYHDmnF5yeaB2JXqhhM8rmeh+Vky0a7s r/JaaK+muOy5BnggyX/2Db6PQsbeq27QjuEkrI/Qd+sE9lo5r+J4PN/ib32TveJayY//SuBfSfhXecyq 48O/YnTxl39O+FeS/lWWoe+P3yVW/hlBa0Iyx+K93v 5V/GftXTldYupk+7o8foGn/6rHu7/9q6Pf/3SzSu37j/h/5Dmd8a3MuQ0U0u6mxaN+l14wGsHja//q1b h9/7d/JRl8+Jkk6wVae/xqr8S/236Cn0qi6nKE8P4LZL0746HgqlldQkd++pKTQCto8FdvolJG5btt+9 9UJerof929A8K570+DlXkiZ3b7/tgfWUV55r2HOBV9 +1eSK/+4k1XK0nalF87oD0e/usLO27/DNKrmq4gemIDP+xv+JvYjsB2u1I/F/aR/vvNed1P/mlmucTX8 u7Wpmsgv/lWMsQvjc/hXeQzG5/Zm5arxk1g0G/vfvId/leUG/s2IB11f4D0x8UK/T90f9t0amS4Iw1Md 1OL2Ws58/X/ffsqVUe6Qn7JivaL28ux1v6Fj5SpxV0 +x+3MP/irLHfoO/YB+QL/f391Xe/CVVF3YI+oZz6ugv5k50V5PY96rWY01I5vPK18vJw9zV137dkbmbL zg+I7jO/QD+rNl8c9Z3EP1+asoF1/Cnbb1Qoe7SD35cMVMj5q1VHvy53cfD/a59yNuLHs4s8Fus92E8a 21LGuVO/Qd+nU6eZ3h24f94QnaNl6K2Wl1Cy/Q7/Za 8N1a8hbTdfK8Q+8uRlgR9gv+3TOwb92/Km2+/atTHtDj+Q483+6fJj1wb/aR9t2U7g19Hf54qEG6ca39 1oVyvUda/PPe/5XhS494kobvkZJ8hdyRui+KcS/9Zcx19mhZK1z3DM/7LUfdI2lYZ6vHb3z+bdf63+9a //s9/CuNY/wZ/7vWvE/E5ww7bF+FPi/oG/QN+uA3NM xw3C07p78IH3XL9KI2+h/s4K86+Kue/EFb98tCllzD7aZCkof+rtsFfYO+QS/QC/Qd+e61wQ2Sc7Kx5i 7frAd/oqoGw45ppJj+Mjo7qi9+qoO/2zOdzD2Wp6vxi46BM5urdvnrd/N1PF/P85X5I0aeqOrt8K2VRK qDHs/A1FpVf0oywy0HHgiuaTCmvhT+QS/QC/Qd+g79 lC76yr9+qoO/9wBjNrvwRx7mj4/yj4OG8ogiAfUZDpjrSO3DH3BT+wK6t17gA+g02I00Qa1EQtWW3Zz2 B6jB4bO52Y04Aq/YDqORsVSvoLWL00Ev4Zu7Qx2MduY/oB/QK/LPycW3svObK5pAf1X68O28oa2p3zV+ aoC/HyArMullJs3gDV1/Q+p0EpGlz/rWOasXhbB8jT 6pcxe8LLkFJl6WwxKi0gm1e8do4Cp1T/lMdXVrtXg2V3dmd3xwagkd5Xh0vbXW9rK9Qo7yqctQ4Ik7Rj 3Tdy5VQ7X9hPy7t4M2E+4iNU1C0I+yHP/2Hwww8HX4dc/G7g90spGLN1X78G94k35vC8AchUi7HmobsZ +htJb1CtrqTngRnR0MZztaFY30BL2atRGJtfZw6Vps 9FhKozWfMsK/ahVv6xvmM/yr7b+N8K+g8YIp9d1+3wj/6pRxfMfxHccPHD+tKkaB7yA/FmyADP3tubmB 8AwgU8A/GpgfHOCvhhVft/eDJI+uz4KBsulxSFkSgr8J67H/3ec6og3Q9rDTxy366pI5sAl34HiMfNqw s/aIKuIO7o7m85zlSt1i6Fda//bl9drah8dU0MtaC/ XUaaUO0r7iT53xTbdZrJ3nE4a9+NjhaG/8N9igA5mqQq/dc8e0gK/QN+il+pV0K9gwIB799CO+1SlDX3 s6OHl8Xpxz8EbvuSpSN/rzwvu7/rf819b0NpGarY/woP32ywtt0/4Ap3m5d7eLzr0/7g0d+W+omB/c2z yV10q2VQCqj6pd8ZOkbSllpAe/lJddn9jzW5++8Ypr cMjZmDavuPUm49T2+UyLY+peBcUjeyU2xscum/pnGmw9aPxxeC7G9/l5bNz/rAM67Nkzesf7qLb4+1d3 NPko1/3c/zW7mnMDI/+5t24k/5j5ogXjdmwv4Od/1+69R63epRxk0+uA0jio272l+D8bGZoOe5XF+g1t xbdrq++Rwr9S+FcK/0ql/QkKob1AkxgkFs4db/KMqy m1Szh4J7hqKfszUgJ/2v/4KvW/r+UpfsBe8kw+9+uKfk265Ix++NgoO/QO/YJ+oP54y9ThlLOyT0nK73 Ysr5Ygu1Mtbk70jkN3oT7nsOKL3JY0Hb0V3mT74L05e25jFu1+Ksqj+BwN/qcWp53z73Uel+E7Gd2qyw Uq61C12hN5LzH6sSVy1FRybUUa1SXmwmGHNZT+t3dk WQ+fpsFfnXLpg7+Ippc4www91EPdbq8keQs62+Ip7/bG+6g9p7ECegADYB4hbiNI5g3FD8yEA0R00Y72 e93wZ9Ch1hi4yI5dftm8l62VZ5Zq9u6e386THYNjK/XAcuRx3B4y86qdp+2axQ44o4GSMl4W/bd/9ZTr +W7/IznS6DhXcO4u+dK9i+Vl40sWnVpgefA1hnDK4H +9j5SeldE7ybh6VYwXXN+Q2AiU5mQxMho7pIkM9igtco+t5o80/KsYM4O/inHVy3/M2X5cJIIap7Xw94 JVy88Ac/rC858ixNGk35WdyP6QLePG0Il/UMFfKfgrBX+l4V+NLGuVF/Sr9Kv+93XV/27aRy1N8dZ/q6 p6EmA1xM9P/YB+QK/QK/KF3022J9MntCqI65rcQM/r Tj3t5Vf+6wWkTa42QeISxaoyQ+k51A759wkxWx+K90GbUwxT+1uVF6231R9DR+5/QY/2tvr/na3+fyfW G02Wv1c19btyG+k08B65Ri6JSeMU1Payv787qtdEqqQaHU/XX1uYdV1itfrNzwFLO/2VoOL1y143c3q+ 0hjh8g9a/KsZ/xHzX9k7G3gH3YP8Rq2Z8zX85F12e8 5BX//7M/yrU4a+Qd+gF+gF+e99lhmwpbVJC6nrJVsxQ+ro4JR9m07ms8nTmw0Mah1XyACIs+S9Aliupf cb/NUpQ4/2DrQ3+AtJzt0jP+vo0MgNY/71jY2Q6QxS4/half-way/oan6fW/4MF6nmdSawf2ZA/V67w9KF8v6 o2NadgFcbCrIlj5a7c3nruQ/wxHa0tWw1l3nFnQk9n F18ipImtXUAnjMeDA7+Q9r83k7krC/LGjvC7yu9H2G7i03W9k4AnvNvjxoGiLJf48M3Nig9nyLC5upaC +PmKzv8W99HqU757tMzejtRs5czW/VQl2ECHE+Ffxbsc/sM1eRy4KyuMl537bk8Oa9t/4Az/2wAdlA5I zwKknWpTS8Bc/FLoQ2wA6fQefIeqL0nH0iqmXjaTJ3 lbn6tjBx1pI/hXE/0KANM1fd865e5os9rd8+CB9Pm9Luubynl9v5fDigRrC/EX9A72V3cHLW/j+IV6io +4a2XM5rVLR+ycY0Juwlbu9mtb7JjfZ/QD+ppfsKvmF+bLLRdfvty9Mg4F63nlxn7U+mv+vRhOVab2X7 sN+uW4pIvI5dvn6cg+4/gB/YBeUY+zsls2eK8u9hJq P2it+kXYy4EaFVz3j5/lyzuz1kZ/4vs7e6j/5kn7kf8e2bx9XO+1/0lN6n/pxTNKlaM7BcS9oxgYfQ2T bv/p9Iwlj0g9kAqhx/OTY/5j6q0j9GA1b/zSx/ydNvzl9beh4svAm1uawha/2G7/0pGg8zjyC4YZpzeG u/8nJG2gk67tpQljxrr3lZdFw/dEVh59DEf35/5Vcp K2/fdf73j7u3Ol/KsrjkF/7ujPmB+0jucb/yOkp6Rp0+HeLWEGBp6uq9FkqbdQyfIvIR0+esi7jW0Nyb Rn76fqLuB+W/aR6EzGoa75rm4cuQc/lRXmN86xcp++VerTS12yo/a6Vg04J5+gr/WTprV+0rD+yoK/2p yDBX+VZYFeoO/XP37zGkco6HSpnYltQ/QTeoPeoHfo Rzfay2cGW0L1Sl8yn/fQe4AI3tq4Rd3Pzs/beDr7Ws4naT+gli0szJW/MyUzF8N1sOAV5d96v375e4U7 0JqobzjQg3nvapeDpxEpH/XQ054WssNC/tzcuYf4RJVR5KTFQ+qp/k8ktP3FoTRh0Co3paru905X5/Zu Hj710c9qSzqWsTDtqD3+1rxfKEM/qo1W0uyf23al3v /yPrd/nY8Wlg0jeAxff7pcpZo/FVyirVoPbNu/CaMki15V/XnV+hfqyJ8W2n7B3kw7TqXI+tq/YAvj1S p+0xruz9gUl4JG/AOd2jaK06jlYN5em/xOh9lg3Mu+9/2q/1+/6v/Ggn9OPK/o2D/o2D/ppSod69SyoB hvj13wq/oe+WXQG/SO+6n/Y75J7CE/5Fh/5Vh/5Vh/ 1j5zkOQW413v195o529m903q014n837x04+6Telo7Rg0OJ/+lbf6X/F2gVv2MW/uhmWP5rl+ykWgF+g7 6E618i9b/RVOm0JiAj9R2iPdZcxi4Xw6So8CbslnS9/l4K8c/WUCp9RdBo5+ypO/gdY6jB0Logai82Ky HtKNqayn43Wj+Leighann/4nJu6uq7wChCauhS9/l4K8c/J UPtHegvQPtHcXn+Kj/wX9ZpHR/UT/aO+r/14O/1mPGR7V33BiXCY+V28h1rpiqt7b+ogxplS9O5jo4n1 I/64B+QK/QK/Koo74pp2LQp2YYm+NR99n2mpphL/T5O64uoXYmiG1Dt6wk/D2e55X7oY/0eCr1DH1o/Z QStDb8rl/f01ok9DmstY62+CsHf+JY0diwQeuOOyDm lz6I9dmQ7A9Cyy+Fx1PGfef6N9G9FZeljd6F4gqRl1Lw5PBdG8va2XN19/H55nuC5D6R77bM+UHH/KBj dqK24eYxdc7ZKmVT89uj/XVDPfW/0745Jl4IYf72sV+Iz+CIz+CIz+CIz+TLa8wDgbUbzI1Ny3/afo6v 2p/xyP6qyvk9I/7uipR69u93/ZhRcfML2k9PPfyf/O TC/bU40fcXhpY1tjRplmzhld5Iwl8wqv+8YA0cIC2bVNSjnuJnTkXS95v9Nids2CwlVnvxzfr+1tetq9 uMaFmq00t1O9wTHOEahWM0oxNkf/Lmwp40xsQdOoe+boV/abcw2kHrO326mR6R2eE39L84AW4jR1ssIZ B71Mg9tH2Q2G2fRL7XryeBKIolnoD+fWF9+5IJ/YS+ 7grtmnBhLdrZM90q3Yy84+o1/2t4cs3FtbU5y71fk/XPqxc/Alejandra/uMK/0a58b6v7aWY7w7edcNG/FXuo 1/avetaz/xv2gebX014/9Xp/R5luee3xvFE0x/ABEx7yqc5s893m8YUgcQHvuPh8kgCrqviBsd/y2OsJ 9/7rdftXr/6x67/9q/wv8BX2z5E8+i7f+6uh6Xm6W4 [file] gQ7mHvjIzqjCKPNSidALhFBXQk7+aMi+ANJUM+LC/Juan Diego [file] AwMDAgbiAKMDAwMDAwMDQwOSAwMDAwMCBuIAowMDAw OSVnTUWaMYIzXMJeDC1nIuSuZKBsMZP9ZYCzWLLxVTGqxmWUWBCpSRMwHHl1WSEcNSAkLGWqKKblCQJx PIVhSEF0GOZiHYYxMT2mJcVrNAKiMII0RdRwFYXgUYXqxtKSZOMgPWVeYEM3SyOwIXZxHZMlKAfmZPAs NRUmFIpsKCWkQTZmKF0bVjCuCMTwIZAqZHyiGKYlDF BjsjTEMNOkAHDlYBCtUsLbNIDgZTIuJIsoEQZsZCWpOPHkOBGyRYLpBB5sWxLdUOHqGLD6VVjiKTXcBS GvnoILZYEsXPPqBAouXVXpGOSpCPCmMLmmCFYwTWFzLKS4YMRpTEHnKJ9qDoZuXUSmRLZgSOKkNeK9Bt RdWlEMoDAbdPclbas4VUopN3s8KEHuKTvtHK6swpNa ESWfGwezAz8ioZD8JZZoVbdCXs7Ps9SvabA7xqKoQqV5BKF5CgXfZC0P ID Date Data Source [id number] 03/22/2021 02:05:00 AM EDT [facility] Name Value Range Interpretation Code Description Data Marifer rce(s) Supporting Document(s) SARS-CoV-2 RNA 2019 nCoV Real-Time RT-PCR: NOT DETECTED [facility] This lab was ordered by [facility] and reported by [facility]. 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 [facility] Patient has symptoms related to [facility] When did you start to experience these symptoms [Date and time] [Phen X] [facility] Patient was hospitalized because of this condition [facility] patient was admitted to ICU for condition [facility] Patient resides in a congregate care setting [facility] status [facility] ID Date Data Source [id number] 03/22/2021 03:29:40 AM EDT [facility] Service Cmnt XXX-Imp : NoneRespiratory P CR Panel : PCR ResultsMicroorganism XXX Cult : See Labs Tab for 2019 nCoV RT-PCR resultsHAdV DNA QI LENNOX+non-probe : Not DetectedHCoV [id number] Nph QI LENNOX+non-probe : Not DetectedHCoV [id number] Nph QI LENNOX+non-probe : Not [id number] RNA Nph QI LENNOX+non-probe : Not [id number] RNA Upper resp QI LENNOX+probe : Not [...] DNA Nph Q LENNOX+non-probe : Not DetectedB [id number] DNA Nph LENNOX+non-probe : Not Detected Name Value Range Interpretation Code Description Data Marifer rce(s) Supporting Document(s) ID Date Data Source [id number] 03/22/2021 12:45:40 AM EDT [facility] CT ABDOMEN PELVIS WITH CONTRAST [id number] AL RESULTInterpreted by:TRACY CappsBSPROCEDURE INFORMATION: Exam: CT Abdomen And Pelvis With [...] rce(s) Supporting Document(s) ID Date Data Source [id number] 03/22/2021 12:35:[address] [facility] CT THORAX WITH CONTRAST [id number] RESUL TInterpreted by:JOSHUA CappsPROCEDURE INFORMATION: Exam: CT Chest With Contrast; Diagnostic [...] DOCUMENT HAS BEEN ELECTRONICALLY SIGNED BY BROOKS Oh document has been electronically signed by JOSHUA Capps on 03/22/2021 12:35 AM Name Value Range Interpretation Code Description Data [facility] rce(s) Supporting Document(s) ID Date Data Source [id number] 03/22/2021 12:34:50 AM EDT [facility] XR SHOULDER MIN 2 VIEWS PORT-OR [id number] AL RESULTInterpreted by:DAMEON WolfROCEDURE INFORMATION: Exam: XR [...] Name Value Range Interpretation Code Description Data [facility] rce(s) Supporting Document(s) ID Date Data Source [id number] 03/21/2021 11:00:40 PM T [facility] XR CHEST FRONTAL ONLY [id number] RESULTI nterpreted by:JOSHUA CappsPROCEDURE INFORMATION: Exam: XR [...] HAS BEEN ELECTRONICALLY SIGNED BY BROOKS BASSETT MDThimillicent document has been electronically signed by JOSHUA Capps on 03/21/2021 11:00 PM Name Value Range Interpretation Code Description Data Marifer rce(s) Supporting Document(s) ID Date Data Source [id number] 03/21/2021 10:43:[address] [facility] Value Range Interpretation Code Description Data Marifer rce(s) Supporting Document(s) Troponin I.cardiac [Mass/volume] in Blood 0.00 ng/mL 0.00-0.08 [facility] ID Date Data Source [id number] 03/21/2021 10:43:51 PM [facility] Name Value Range Interpretation Code Description Data Marifer rce(s) Supporting Document(s) Sodium [Moles/volume] in Blood 142 mmol/L 136-145 [facility] Potassium [Moles/volume] in Blood 3.6 mmol/L 3.4-5.1 [facility] Chloride [Moles/volume] in Blood 103 mmol/L 98-107 [facility] Carbon dioxide, total [Moles/volume] in Blood 28 mmol/L 22-29 [facility] Calcium.ionized [Moles/volume] in Blood 1.30 mmol/L 1.13-1.32 [facility] Glucose [Mass/volume] in Blood 101 mg/dL 70-140 [facility] Urea nitrogen [Mass/volume] in Blood 11 mg/dL 6-20 [facility] Creatinine [Mass/volume] in Blood 1.0 mg/dL 0.70-1.20 [facility] Hematocrit [Volume Fraction] of Blood 46 % 41-53 [facility] Hemoglobin [Mass/volume] in Blood by calculation 15.6 g/dL 13.5-18.0 [facility] ID Date Data Source [id number] 03/21/2021 10:43:[address] [facility] Value Range Interpretation Code Description Data Marifer rce(s) Supporting Document(s) pH of Venous blood 7.39 7.36-7.41 [facility] Carbon dioxide [Partial pressure] in Venous blood 47 mmHg 40-45 H [facility] Oxygen [Partial pressure] in Venous blood 19 mmHg [facility] Base excess standard in Venous blood by calculation 2 mmol/L [facility] Oxygen saturation Calculated from oxygen partial pressure in Venous blood 29 % 60-85 L [facility] Lactate [Moles/volume] in Venous blood 1.8 mmol/L 0.5-2.2 [facility] Bicarbonate [Moles/volume] in Venous blood 29 mmol/L [facility] ID Date Data Source [id number] 03/21/2021 10:59:42 PM [facility] Name Value Range Interpretation Code Description Data Marifer rce(s) Supporting Document(s) Color of Urine [facility] Clarity of Urine [facility] Specific gravity of Urine by Refractometry automated 1.010 1.003 -1.030 [facility] pH of Urine by Automated test strip 8.0 5.0-8.0 [facility] Protein [Mass/volume] in Urine by Automated test strip Neg [facility] Glucose [Mass/volume] in Urine by Automated test strip Neg [facility] Ketones [Mass/volume] in Urine by Automated test strip Neg [facility] Bilirubin.total [Presence] in Urine by Automated test strip Negative [facility] Hemoglobin [Presence] in Urine by Automated test strip Neg [facility] Leukocyte esterase [Presence] in Urine by Automated test strip Negative [facility] Nitrite [Presence] in Urine by Automated test strip Negati ve [facility] Leukocytes [#/area] in Urine sediment by Automated count 0 /HPF 0 -5 [facility] Erythrocytes [#/area] in Urine sediment by Automated count 0 /HPF 0-3 [facility] ID Date Data Source [id number] 03/21/2021 11:24:35 PM [facility] Name Value Range Interpretation Code Description Data Marifer rce(s) Supporting Document(s) Amphetamine [Presence] in Urine by Screen method Negative [facility] Benzodiazepines [Presence] in Urine by Screen method Negat [facility] Cannabinoids [Presence] in Urine by Screen method Negative [facility] Benzoylecgonine [Presence] in Urine by Screen method [facility] Methadone [Presence] in Urine by Screen method Negative [facility] Opiates [Presence] in Urine by Screen method Negative [facility] Oxycodone [Presence] in Urine by Screen method Negative [facility] Fentanyl+Norfentanyl [Presence] in Urine by Screen method Negative [facility] Service comment [facility] Results below the indicated cutoff (ng/m L), are reported as"Negative." Note: for medical purposes only; not valid for legalor employment testing. ID Date Data Source [id number] 03/21/2021 11:16:07 PM T [facility] Name Value Range Interpretation Code Description Data Marifer rce(s) Supporting Document(s) ABO and Rh group [Type] in Blood [facility] Blood group antibody screen [Presence] in Serum or Plasma [facility] Blood bank comment [facility] ID Date Data Source [id number] 03/21/2021 11:43:24 PM T [facility] Name Value Range Interpretation Code Description Data Marifer rce(s) Supporting Document(s) Leukocytes [#/volume] in Blood by Automated count 6.2 10*3/uL 4-10 [facility] Erythrocytes [#/volume] in Blood by Automated count 4.97 10*6/uL 4.6- 6.1 [facility] Hemoglobin [Mass/volume] in Blood 14.6 g/dL 13.5-18 [facility] Hematocrit [Volume Fraction] of Blood by Automated count 44.0 % 4 1-53 [facility] Erythrocyte mean corpuscular volume [Entitic volume] by Auto mated count 88.5 fL 80-96 [facility] Erythrocyte mean corpuscular hemoglobin [Entitic mass] by Automated count 29.5 pg 27-33 [facility] Erythrocyte mean corpuscular hemoglobin concentration [Mass/volume] by Automated count 33.3 g/dL 32.0-[facility] width [Ratio] by Automated count 14.0 % 11.5-14.5 [facility] Platelets [#/volume] in Blood by Automated count 228 10*3/uL 150-400 [facility] Differential cell count method - Blood [facility] Neutrophils/100 leukocytes in Blood by Automated count 70 % [facility] Lymphocytes/100 leukocytes in Blood by Automated count 26 % [facility] Monocytes/100 leukocytes in Blood by Automated count 4 % [facility] Eosinophils/100 leukocytes in Blood by Automated count 0 % [facility] Basophils/100 leukocytes in Blood by Automated count 0 % [facility] Neutrophils [#/volume] in Blood by Automated count 4.33 10*3/uL 1.8-7 .0 [facility] Lymphocytes [#/volume] in Blood by Automated count 1.59 10*3/uL 1.2-4 .0 [facility] Monocytes [#/volume] in Blood by Automated count 0.23 10*3/uL 0-0.8 [facility] Eosinophils [#/volume] in Blood by Automated count 0.02 10*3/uL 0-0.5 [facility] Basophils [#/volume] in Blood by Automated count 0.01 10*3/uL 0-0.2 [facility] Nucleated erythrocytes/100 leukocytes [Ratio] in Blood by Automated count 0 /100{WBCs} 0-0 [facility] ID Date Data Source [id number] 03/21/2021 11:55:46 PM EDT [facility] Name Value Range Interpretation Code Description Data Marifer rce(s) Supporting Document(s) Acetaminophen [Mass/volume] in Serum or Plasma 10.0-30.0 L [facility] ID Date Data Source [id number] 03/21/2021 11:55:[address] [facility] Value Range Interpretation Code Description Data Marifer rce(s) Supporting Document(s) Ethanol [Mass/volume] in Serum or Plasma Negative [facility] ID Date Data Source [id number] 03/21/2021 11:55:[address] [facility] Value Range Interpretation Code Description Data Marifer rce(s) Supporting Document(s) Lipase [Enzymatic activity/volume] in Serum or Plasma 43 U/L 13-6 0 [facility] ID Date Data Source [id number] 03/21/2021 11:55:[address] [facility] Value Range Interpretation Code Description Data Marifer rce(s) Supporting Document(s) Bicarbonate [Moles/volume] in Serum 27 mmol/L 22-29 [facility] Chloride [Moles/volume] in Serum or Plasma 103 mmol/L 98-107 [facility] Creatinine [Mass/volume] in Serum or Plasma 0.96 mg/dL 0.70-1.20 [facility] Glucose [Mass/volume] in Serum or Plasma 100 mg/dL 70-140 [facility] Potassium [Moles/volume] in Serum or Plasma 3.9 mmol/L 3.4-5.1 [facility] Sodium [Moles/volume] in Serum or Plasma 142 mmol/L 136-145 [facility] Urea nitrogen [Mass/volume] in Serum or Plasma 9 mg/dL 6-20 [facility] Anion gap 3 in Serum or Plasma 12 mmol/L 8-15 [facility] Osmolality of Serum or Plasma by calculation 293 mosm/kg 275-300 [facility] Creatinine/Urea nitrogen [Mass Ratio] in Serum or Plasma 9 [facility] Calcium [Mass/volume] in Serum or Plasma 9.8 mg/dL 8.6-10.0 [facility] Glomerular filtration rate/1.73 sq M pre dicted among non-blacks [Volume Rate/Area] in Serum or Plasma by Creatinine-based formula (MDRD) >6 0 [facility] Glomerular filtration rate/1.73 sq M pre dicted among blacks [Volume Rate/Area] in Serum or Plasma by Creatinine-based formula (MDRD) >60 [facility] ID Date Data Source [id number] 03/21/2021 11:55:[address] [facility] Value Range Interpretation Code Description Data Marifer rce(s) Supporting Document(s) Salicylates [Mass/volume] in Serum or Plasma 3.0-30.0 L [facility] ID Date Data Source [id number] 03/21/2021 11:56:[address] [facility] Value Range Interpretation Code Description Data Marifer rce(s) Supporting Document(s) Fibrinogen [Mass/volume] in Platelet poor plasma by Coagulat ion assay 283 mg/dl 190-450 [facility] ID Date Data Source [id number] 03/21/2021 11:56:[address] [facility] Value Range Interpretation Code Description Data Marifer rce(s) Supporting Document(s) Prothrombin time (PT) 13.2 s 12.5-14.9 [facility] INR in Platelet poor plasma by Coagulation assay 0.99 [facility] Routine intensity oral anticoagulation I NR is typically 2.0-3.0. Target INR must be clinically individualized. ID Date Data Source [id number] 03/21/2021 11:56:[address] [facility] Value Range Interpretation Code Description Data Marifer rce(s) Supporting Document(s) aPTT in Platelet poor plasma by Coagulation assay 27.0 s 24.0-33. 0 [facility] ID Date Data Source [id number] 03/22/2021 01:14:[address] [facility] Value Range Interpretation Code Description Data Marifer rce(s) Supporting Document(s) Albumin [Mass/volume] in Serum or Plasma by Bromocresol green (BCG) dye binding method 5.4 g/dL 3.5[facility].2 [facility] Bil[facility].total [Mass/volume] in Serum or Plasma 0.6 mg/dL <1.2 [facility] Bilirubin.direct [Mass/volume] in Serum or Plasma <0.3 [facility] Alkaline phosphatase [Enzymatic activity/volume] in Serum or Plasma 78 U/L 40-129 [facility] Aspartate aminotransferase [Enzymatic activity/volume] in Serum or Plasma 34 U/L <40 [facility] Alanine aminotransferase [Enzymatic activity/volume] in Seru m or Plasma 39 U/L <41 [facility] Protein [Mass/volume] in Serum or Plasma 8.7 g/dL 6.4-8.3 H [facility] ID Date Data Source [id number] 03/11/2021 08:26:17 AM EDT [facility] Name Value Range Interpretation Code Description Data Marifer rce(s) Supporting Document(s) Discharge Summary [facility] DISRZb6gFrHDRsFl28/UUHoqREFdf7XdJQodWJo5QWruLADsN5UjYAW1vA6iQAE9HIlXInLqIpZfVEJy [facility] [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+4xyAjKah0J+GtPe8AhESK+c3mvvtzwHbjqzPJei8Z2YNClG+f2Oc1cqs [file] LbCaSoA2MIO9QuM+XN3rVFq+Wb5Lx1ScuhN3raHoDXd8OCP5PF5ZDXCNV5JRVh== ID Date Data Source [id number] 03/08/2021 08:09:11 AM EDT [facility] Name Value Range Interpretation Code Description Data Marifer rce(s) Supporting Document(s) Consultation [facility] CZSYWv4zKnOORcBa23/NJZhtQWFot5IhHPizWZl2CUjoOGIdE3SeYDC2wA5gJFA3WHwGElDiPpAoANTi lbm [file] ID Date Data Source [id number] 03/07/2021 03:50:37 PM EDT [facility] Name Value Range Interpretation Code Description Data Marifer rce(s) Supporting Document(s) Consultation [facility] ZWXKLp1aDgEHOtYe81/RZTkdMMVit6IxSMaqDHg6XLubOHKmS2WmVXG0eN0mTWL0HWwITiUfYfUoFVK0 lbm [file] voss+U6+/9N2/J+2y3/zrU2P0hB6e/Brnzb6eOtVqlGV+ZmOnCgrVrB4KTXbTiH8A/sd3M/PSTkfj6aoVK Snqeq+Yl2a8/sTRhnZEW4arM9wfjNuDMf6GWZ5Oaxf 9ZV194gq2i8NC0uu1E1u0/b6HO/FnPzzR61AxO9tMqNcuu3XH+fYzNo1zlkqG8Q2b09+r9spM4htIZ3q 3Y9ebONJ+br1W+Oc7SMJ0a+M95BOZRiuJso1CKu5mB2sv3AH9yM4rRuR9+YI3fDZa4neraU4xnU36B68 spyaJDm8zOry0aN+cma0ZMcvtbnEgr9I0QEamd0Nhb wNmYn2vScO2wCle3IYsjleD03dm6S0N6g9Yy+P0kcJwksbgSxr15f/hu/XHLjQNooZl8hYrO70se3p81 dT+0uzoMc/IJ+6+9P7qrvLtdJaQ6pVSHhasRYoHwBRZ2A7r1YbaSUPszQEVC1wZXViTW54hYiMhud7Of 2o7oUs9Q0QjHZCcSmD80akTb+FfvIT+AFNh/8NUANr rfAbKp6giOKqah87vcheZ6idA9ivuFgsv1Ii9Wzux0jLUE0ho2ihssYmzJiGzWD+MdLtstfvvK/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 [file] AgICAgICAgICAgICAgICAgICAgICAgICAgICAgICAgICAgICAgICAgICAgICAgICAgICAgICAgICAgIC AgICAgICAgICAgICAgICAgICAgICAgICAgICAgICAN CiAgICAgICAgICAgICAgICAgICAgICAgICAgICAgICAgICAgICAgICAgICAgICAgICAgICAgICAgICAg ICAgICAgICAgICAgICAgICAgICAgICAgICAgICAgICAgICAgICAgICANCiAgICAgICAgICAgICAgICAg ICAgICAgICAgICAgICAgICAgICAgICAgICAgICAgIC AgICAgICAgICAgICAgICAgICAgICAgICAgICAgICAgICAgICAgICAgICAgICAgICAgICANCiAgICAgIC AgICAgICAgICAgICAgICAgICAgICAgICAgICAgICAgICAgICAgICAgICAgICAgICAgICAgICAgICAgIC AgICAgICAgICAgICAgICAgICAgICAgICAgICAgICAg ICANCiAgICAgICAgICAgICAgICAgICAgICAgICAgICAgICAgICAgICAgICAgICAgICAgICAgICAgICAg ICAgICAgICAgICAgICAgICAgICAgICAgICAgICAgICAgICAgICAgICAgICANCiAgICAgICAgICAgICAg ICAgICAgICAgICAgICAgICAgICAgICAgICAgICAgIC AgICAgICAgICAgICAgICAgICAgICAgICAgICAgICAgICAgICAgICAgICAgICAgICAgICAgICANCiAgIC AgICAgICAgICAgICAgICAgICAgICAgICAgICAgICAgICAgICAgICAgICAgICAgICAgICAgICAgICAgIC AgICAgICAgICAgICAgICAgICAgICAgICAgICAgICAg ICAgICANCiAgICAgICAgICAgICAgICAgICAgICAgICAgICAgICAgICAgICAgICAgICAgICAgICAgICAg ICAgICAgICAgICAgICAgICAgICAgICAgICAgICAgICAgICAgICAgICAgICAgICANCiAgICAgICAgICAg ICAgICAgICAgICAgICAgICAgICAgICAgICAgICAgIC AgICAgICAgICAgICAgICAgICAgICAgICAgICAgICAgICAgICAgICAgICAgICAgICAgICAgICAgICANCi AgICAgICAgICAgICAgICAgICAgICAgICAgICAgICAgICAgICAgICAgICAgICAgICAgICAgICAgICAgIC AgICAgICAgICAgICAgICAgICAgICAgICAgICAgICAg ICAgICAgICANCjw/jJUbF5eswAQxdqA0M6lrQj3VMx4HER2pj1KkIRSbCUzadtWjDkyTEcHySQCcPwgN Dyx0EApoOO8XiXKrK8KnR2FeXHhnWR7MDHObFOGzaUVhMBHnSEHlZpT3ESEpOPkkEN8IvLEmVOabASRa PKFrVkOpUTWbTQDaQIUyCUMlSXANGS1VIwVaM4GwcA 49LCOPAp5+BAweedYuIvwGZvLkPUGqc4OuGSo4BM9LTPByFlzhz5CjCtTmROIRCNioTC9KZXR7BRGoYE MbCo0FCWPpC627cdEjDL7TGf1NYfWgQX0dtn6RGfZcIMRnLiuZEyy1TXqmRN5JoABdEKaMi47xtFt0wq SlnRWEDQLqtZMNYLU5IKZwdNVnIRwVL8xbQUPhOS4r DD8jYKOjZDXaLkTmXERNJV3DCCSwALRnxADfOTPlGUVWUG9SITieKBV3PWPdaaIqxIMwKIksIG3PDQZu bnQgMzEgMCBSDQo+Rf9TWW3jy9MwWVpxBqReDO2zoc0FYQtEXzAcS1G4eLKuN4P3FIqrEu5RGNAaQYJw IdllTSDXDWcgHK1RAT2dilF0UJ9HjJUbDVBiKXFmoP VnSBt5D83wdAAhTGkuHD4HEWW+Jayla+Zs2RQGPbUPNrCDBsEtKxGOFEPoXiO6KtF8TUo5UmR0HdGR19dK qhamWtQSvwWL7FDM2uVCAmJGFBYV0HhFNwaI2kttKcWVFwFRFAMyLaC74phLUxHQArXSJzTGJnNt2YYJ XiF4DuplAxqYzcvhBnFJFzKKOHCS3OPEtbahRhcNQl oWlpOR53eAmqTA5GRx6GFrBfFE3ypf9BuNZvSf4XAOBcLL8WNTKoWXXzGMPjEPH7IFBqNgDtIFmuCGNh RAKpJWR3RLIxDJPgJR5HBgBeVXByPnZ3VdCrXKKaKXJurx8DTTZdARXpAfY6OyNqJBAtBOSmYYyaGOPo KWOcIPB9WNVtLOSjYI7ODxGePWFrJAE9CHYrZICjCE Lqhx4BKABaDKQzKNIdYMTiNUUmUOTjEOphOLVtTTZ6SZljJJIdJUAvZC5LHpShTCEcWZpyQuzmSCTjLB Yfhd7ULDArUEHlMOG5AqWuHNZuXNAcSJdgNFHvLHVfYGfzLIZxXDWcFQ9CBdSeUBFhAIN0QuktRFRmGR Fmtk3AEMLeMVLxMbpxVCGnNUOrGXMmNXwaMBDpJJJ4 ASv0IQIzGPKiFM4VEeHwTRPdDQAnXTUyFJYiFKZwhh7OLOEfNFCiYWS2NKTeONUyPMNwICjkOOZuECN3 VzBvRSHkULAvKV9JAtNyGIKnJOQ7ZhMzDSWtXOOkdk6NPHPtWAMaSmVbBtNgCMGkVZZyUOcnWLJjILO8 IUxjBAKeLTRtSS3KNdFdGXPsFEo8JSIxOWLqVUJuon 6SYJGmEHQqLld3NsCtGBNsVUSfFXmaKAUgBJU8ZTToBSExAAWoHZ2NPlGaIVTlNEacWgadUZZbBQUktc 7DHVUcPWXfBZVcRlWwQJYnMZPnYCjkIZHeUTUfUwe3HFBbIKUlHN7JIyXlRAJcKjVaBHZhJAGgGGSesu 0KMDAwMDAzMTIyNCAwMDAwMCBuDQowMDAwMDMxNDYz RHCgIXMuRP9ZYwZrKNZpVjZ5SBerSSFoYIQmll2XXDZeVAFfMzH3PmQbZTKwUTKjZToiUHOpJBKzEGk9 ZCEdIWYlOC6ZAcXhCCFqGuS8AaAoCOJvXWVbmj7ZHMIcNLGhIrffPiGjQBXjTQMvFOe7kqCemVWjPJn8 CL6AY6CrbwCaDcWFJi2Kq813DBVeFSWgHk5MO0haZn 5jTCOaOFCPQi7NZOn4Eng0EQQ6WmB6XYo6WxRmBFX2LWU2HmJrI3ZqV5D6XXD+IEz2YbL3NolyZLJ0FF lqPXSlBLgtQKkmOFJzIgCmJAScSD0oIXVXQk5+RTouhHGapHaeNUFQDiWnNTNgJHlySQCBJh7X ID Date Data Source [id number] 03/07/2021 12:55:08 PM EDT [facility] Name Value Range Interpretation Code Description Data Marifer rce(s) Supporting Document(s) History and Physical [facility] XEVJBv9yNeCIPdPv47/ZJLzvMSFuk0OfFHsyCFi7MWurJOIuQ7CsONF6dB7pYDM3MSnGMbXlIgJqHLT2 lbm [file] AgICAgICAgICAgICAgICAgICAgICAgICAgICAgICAg ICAgICAgICAgICAgICAgICAgICAgICAgICAgICAgICAgICAgICAgICAgDQogICAgICAgICAgICAgICAg ICAgICAgICAgICAgICAgICAgICAgICAgICAgICAgICAgICAgICAgICAgICAgICAgICAgICAgICAgICAg ICAgICAgICAgICAgICAgICAgICAgICAgDQogICAgIC AgICAgICAgICAgICAgICAgICAgICAgICAgICAgICAgICAgICAgICAgICAgICAgICAgICAgICAgICAgIC AgICAgICAgICAgICAgICAgICAgICAgICAgICAgICAgICAgDQogICAgICAgICAgICAgICAgICAgICAgIC AgICAgICAgICAgICAgICAgICAgICAgICAgICAgICAg ICAgICAgICAgICAgICAgICAgICAgICAgICAgICAgICAgICAgICAgICAgICAgDQogICAgICAgICAgICAg ICAgICAgICAgICAgICAgICAgICAgICAgICAgICAgICAgICAgICAgICAgICAgICAgICAgICAgICAgICAg ICAgICAgICAgICAgICAgICAgICAgICAgICAgDQogIC AgICAgICAgICAgICAgICAgICAgICAgICAgICAgICAgICAgICAgICAgICAgICAgICAgICAgICAgICAgIC AgICAgICAgICAgICAgICAgICAgICAgICAgICAgICAgICAgICAgDQogICAgICAgICAgICAgICAgICAgIC AgICAgICAgICAgICAgICAgICAgICAgICAgICAgICAg ICAgICAgICAgICAgICAgICAgICAgICAgICAgICAgICAgICAgICAgICAgICAgICAgDQogICAgICAgICAg ICAgICAgICAgICAgICAgICAgICAgICAgICAgICAgICAgICAgICAgICAgICAgICAgICAgICAgICAgICAg ICAgICAgICAgICAgICAgICAgICAgICAgICAgICAgDQ ogICAgICAgICAgICAgICAgICAgICAgICAgICAgICAgICAgICAgICAgICAgICAgICAgICAgICAgICAgIC AgICAgICAgICAgICAgICAgICAgICAgICAgICAgICAgICAgICAgICAgDQogICAgICAgICAgICAgICAgIC AgICAgICAgICAgICAgICAgICAgICAgICAgICAgICAg GQXjFWXoQGYbSBNmGOIcEIKjMGTxLASsQBPxVMWlLDOwPJJdTODyNNGgWFDvMEHySGIyCLp7I0opOUKd BWPdLW7mFFa2Ed7+ULvLEzCiJPP5alIzrU4ECH0nt7DeXByhGGQwy5MxKCo3KZ9BODDmRKwdAM2ICSlj ne3MPOHwDZWwwXBSw8snNzUgMQF1XXTqTtfrHQ8XNF WrO6kbtbEmWBJqZUWCJTnoUBEIXOvxRCUNCODmSOAwVqAbNtFhIMJoLMVdOLRRHPK5JVNxPxYiHZFzHX YcJR6IECGjE383qmJhFD7OWn7QAxPeRF6brq0WWTVeZGRnZfjAXyd6JLrdEO6WsNEtnCA7NLSfHVMEFi ZjK9hvf9OzVWZuLZHUOZlbAI8Gt8HsdKDzDQr+Pg0K GO1gf8JuTKt6STUuCE8qbw3SRWdYCpVhQ3AbeNbqEHmjLICkgELLhJDmAOIWWP7pL2dekSTlUP4TZTP9 PXQnPyvzCuKbPGPcBSc4IyFJHJyWUxDjZ8Kjo5OoZxR2VSSfSuQzKMjyTASrEaL1VM61bEuaOW3EPOJy XJSnKG76LELyEUVxKa0DNv4DLxLjKW9not0SOUAjNF PsOsvPQiu6VKrzPZ4YbVFuR4AhzWWax6sMFyJdA4VGUGXiHKFiBb8TUVSdIxDrTOZmJJveBN1kCVBiEF MXmPpsmbT7UB2QDA5ylvZxCH7UCsBiNa4zRz7OQzEeZ0TcZ7GsTMXqAPZNUQtcQI1TOZfdWG0cUW3Uq4 DVsDXavN4kfb0HYNXmLHPcDvclph7LVboqU6M3dRky SBWiNVGeUURGNWxhDD4ZMRCaFPU7LUM4EbBjJEMPMkMmX65hXQ8MJ9Mek21pSwD7RLZiPxAvTZzsDD18 qCxzxcBicCWfoFmcZD5NWq1+GJemnqPqAvdKRnpjIIUFTxRrIVLZJsLgLGMvXOEwRVVtWgM7PoMoWx1U BXPaBDWfOGVzKtYqDELwTQYyRCdbRADeTHT7UVP8WA AgXBEaAY0YYwRuJFMlYOxoHnNzDXRpUMLory1KVPHlQQLmOZD6KdJhSDNkRGWnSKtlOWYfLNJxAPk6QT NcIBSxXX8YZmHzXWKyIDYlBQwkOIOnTOOoim8LMKDmOCVbZitrFaGvJLWnHOCyJIoyUQHsJDK1KWC2GH VfBIOjMH6RPgAmBXRlHNAdQBjkJKNjZIMrqm1WPLJj NOCnOMArIiDkZXJbGVLuECmyRXTgGHN1TvE2TJLlJEVhVN5CLbOhDCGhAQI4PlCaBSZbRPNnbi9MQJBl GIJgRHL8EeNrJFSyQXWhOXofCWVaLAM4Tvb4IKRoZLZjIN6QHcTqQCMsNnT1YDFkLUNvNGHpfl1PLGWr FSCcQbX0JeIrQVYjSSCxRCncOYUcBFM2BjR3QCXpXZ XkIO3LXwIgLREbTxK4LeIlNNBaVFNxxe0DFIBuEVDjEMNfNTFgWXDcWCJbUMsxZEKtNPT3JyS3BWDhLB GmWW2ZXaZsSQOvDss5HpOrMOCtQTXjak1HCYIcSRXaPHv0QkSwHGZyGNVvZXiwZUUrWVCnBIV0WJUtVU EnZN9QQxDwUUYoEjDyPRXnKTGgXGAwpb4YYDQxGBSm NFMbEwVqGPVpPJSpYJrzIDPmCGThAPD6UEBiKLLyDW9SBnZsZIZdQvUpLtHzRMGeYGIeih9UQCXcTPGk UrX5UuSaLMJlSMGvBRmaOARcBOSrYaQ2ZPHoJTSvID2WSeWpOXSrItY1BBPfQIVeYURjyk0GTHQqSDVk NpstElOmQYFfZGRtIKmlZGCwWES0LJj1ZNCaGGSyUB 5NJtToYOTkMiKuZGVdIJDcQDCygn4BACMpFFFuBIA9UPSsKNRtORYzXPkxZWNsAAL5OIP9HWDaCSQsTW 0JJiHnPWIuKWY4CXBkNJZyDOAedm3RFCAqLDH3PvHkCGIwORTnOGIpLUopSRDzTZD2RXPfIWZqUOZuUR 6YSjYtABSeHDt0XfifZEWrXLVcxe1XNJFvEHZ9Qubn GLSnHMIdNMDpFWquVADgJLZyIggfOKKiKAZnTR2CMpSmRHTaEFX1ASFbYYCfGOPcco5VITWgVXM8ZcAz RPXvONLkHMCjKGxfJGHlNXDwKNJ0FPFuHJCjOH8UZrAaJRMgRLK8LXbvQQGdJUEbsv2QKLCiWJC7Ygtp UACnYMReQHHeVVewUPXmSSK6AHE8LOLcMNTiKF4KQa GyYWSkIEFyLAPrKDPtXXVsjr5BEHDrJYE4NDK4NWXfMOPhELRzAEsxVCJsOUV5DsInHFIfKZJrNR7AIh CaKZPmRQE8LlXgMYPqVQVkbh7ZPVAuEJO9LcAdSaHjJKOkYLSiNSxkDTXsTZJ5AVM6QBWzLHYgCQ6TRv DaYCGqMJk9UatiJLIgKBDydl1QOHUlSUR5HjwsRhQy VAQgHARfZIz5jqTfyQFcTGl9HO7IH7ErcoWvZIAAPh3Vh039MSO4HSHeDx8GE1lrXa7cRHJkHXJDPt2L GAp8RhBcGLdzA1FkWMB9LFa3GuPdGJBnZmY7IiMyI7MmZIM+LVckKsK2NONaClZ6MHyrKkj4KsE3WPQu XrrtUbO0OvKvYZ0tONCFIz3+LBlaxVZroJuwCEPVPaX0YFUyHRwwCNYDTj2Z ID Date Data Source [id number] 03/07/2021 08:12:05 AM EDT [facility] Name Value Range Interpretation Code Description Data Marifer rce(s) Supporting Document(s) Color of Urine [facility] Clarity of Urine [facility] Specific gravity of Urine by Refractometry automated 1.011 1.003 -1.030 [facility] pH of Urine by Automated test strip 6.0 5.0-8.0 [facility] Protein [Mass/volume] in Urine by Automated test strip Neg [facility] Glucose [Mass/volume] in Urine by Automated test strip Neg [facility] Ketones [Mass/volume] in Urine by Automated test strip Neg [facility] Bilirubin.total [Presence] in Urine by Automated test strip Negative [facility] Hemoglobin [Presence] in Urine by Automated test strip Neg [facility] Leukocyte esterase [Presence] in Urine by Automated test strip Negative [facility] Nitrite [Presence] in Urine by Automated test strip [facility] Leukocytes [#/area] in Urine sediment by Automated count 0 /HPF 0 -5 [facility] Erythrocytes [#/area] in Urine sediment by Automated count 0 /HPF 0-3 [facility] ID Date Data Source [id number] 03/07/2021 08:16:16 AM [facility] Name Value Range Interpretation Code Description Data Marifer rce(s) Supporting Document(s) Calcidiol [Mass/volume] in Serum or Plasma 22 ng/mL >30 L [facility] ID Date Data Source [id number] 03/07/2021 08:02:55 AM [facility] Name Value Range Interpretation Code Description Data Marifer rce(s) Supporting Document(s) Cholesterol [Mass/volume] in Serum or Plasma 137 mg/dL <200 [facility] Triglyceride [Mass/volume] in Serum or Plasma 73 mg/dL <150 [facility] Cholesterol in HDL [Mass/volume] in Serum or Plasma 40 mg/dL >40 L [facility] Cholesterol in LDL [Mass/volume] in Serum or Plasma by calcu lation 82 mg/dL <100 [facility] Cholesterol in VLDL [Mass/volume] in Serum or Plasma by calc ulation 15 mg/dl 16-42 L [facility] Cholesterol non HDL [Mass/volume] in Serum or Plasma 97 mg/dL <130 [facility] ID Date Data Source [id number] 03/07/2021 07:37:25 AM [facility] Name Value Range Interpretation Code Description Data Marifer rce(s) Supporting Document(s) Hemoglobin A1c/Hemoglobin.total in Blood by HPLC 5.0 % 4.0-6.0 [facility] (NOTE)<5.7% Average risk of diabetes (ADA)5.7-6.4% Increased risk of diabetes(ADA)>/= 6.5% Diagnostic for diabetes(ADA) Glucose mean value [Mass/volume] in Blood Estimated fr om glycated hemoglobin 97 mg/dL <126 [facility] ID Date Data Source [id number] 03/06/2021 06:21:00 PM EDT [facility] Name Value Range Interpretation Code Description Data Marifer rce(s) Supporting Document(s) SARS coronavirus 2 RNA [Presence] in Res piratory specimen by [facility] with probe detection NEGATIVE [facility] This lab was ordered by [facility] a nd reported by [facility]. ID Date Data Source [id number] 02/25/2021 11:33:00 AM EDT [facility] Name Value Range Interpretation Code Description Data Marifer rce(s) Supporting Document(s) SARS coronavirus 2 RNA Not Detected [facility] This lab was ordered by [facility] and reported by [facility]. ID Date Data Source [id number] 02/18/2021 08:59:00 [place] [address] PHONE: [phone] FAX: [phone] Name .................. : LIDIAINDIGO Rivera Acct Number.................. : [id number] ROOM. ................. : [facility] Number ................... : [id number] Stay type ............. : E/R Discharge Date......... ... : 02/15/21 Admit Date ......... : 02/15/21 Admit Phys .................... : LETICIA Burleson Date of ....... : 1990 Family Phys ................... : NON STAFF Phone .................. : [phone] Age ................................ : 30 Film# .................. .:[id number] Sex ................................. : M Unsigned transcriptions are preliminary reports and do not represent a medical or legal document RENAL COMPLETE [id number] COMPLETE:02/15/21 15:10 GS 8359 Reason(s): flank pain RENAL ULTRASOUND: INDICATION: [...] DO , 02/18/21 08:59, RIO Transcribe Initials: GAYATHRI , Transcribe Date: 02/16/21 01:47, Dictation Date: Copy for: EMERGENCY DEPT via modem Copy for: [address] [place] [address] PHONE: [phone] FAX: [phone] Name .................. : TOSIN Rivera Acct Number.................. : [id number] ROOM. ................. : [address] Number ................... : [id number] Stay type ............. : E/R Discharge Date......... ... : 02/15/21 Admit Date ......... : 02/15/21 Admit Phys .................... : LETICIA Burleson Date of ....... : 1990 Family Phys ................... : NON STAFF Phone .................. : [phone] Age ................................ : 30 Film# .................. .:[id number] Sex ................................. : M Unsigned transcriptions are preliminary reports and do not represent a medical or legal document RENAL COMPLETE [id number] COMPLETE:02/15/21 15:10 GSP [id number] Reason(s): flank pain DISCHARGED Page 2 of 2 Name Value Range Interpretation Code Description Data Marifer rce(s) Supporting Document(s) ID Date Data Source [id number] 02/15/2021 11:50:00 AM EDT [facility] 1 OrderSheet [facility] Emergency Department [address] [place] [address] Phone #: ext- [phone] 02/15/2021 11:45 Patient: MARVIN LEAHY Sex: M : 1990 Age: 30yWEIGHT:92.9 kg (M) HEIGHT:68 inches (S) BMI:31.1ALLERGIES: None, SeafoodCHIEF COMPLAINT: abdominal painDIAGNOSIS: Renal colicLAB ORDERSOrder Description Priority Entered Acknowledged InitialedUrinalysis (Clean STAT 12:28 02/15/2021 12:31 TerryCatch) Carter Small ; Kayla GARNERDIAGNOSTIC STUDY ORDERSOrder Description Priority Entered Acknowledged InitialedUS RENAL STAT 12:31 02/15/2021 12:45 TerryCOMPLETE Carter Small ; Kayla GARNER(Oxygen?(No))(IV?(No)) Reason for Study: flank painMEDICATION/IV/DRIP/FLUID ORDERSOrder Description [...] rce(s) Supporting Document(s) ID Date Data Source [id number] 02/15/2021 11:50:00 AM EDT [facility] 1 Medication Reconciliation Report [facility] Emergency Department [address] [place] [address] Phone #: ext- [phone] 02/15/2021 11:45 Patient: [...] mg), 3x a day, prn Pregnyl Intramuscular (98384 unit), 3x a week risperiDONE Oral (1 mg), 2x a day traZODone HCl Oral (50 mg), daily Trolamine Salicylate External Xolair Subcutaneous (150 mg) 300mg, 3x a week Zofran Oral 4 mg, 3x a day, prnThe source(s) of the original Home Medication information: 2 Medication Reconciliation Report [facility] Emergency Department [address] [place] [address] Phone #: ext- [phone] 02/15/2021 11:45 Patient: MARVIN LEAHY Sex: M : 1990 Age: 30yNot obtained.The following Medications were given to the patient in the Emergency Department:Toradol [IVP] IVP 30 mg, administered: 12:35 02/15/2021The following Medications were prescribed to the patient:None. Name Value Range Interpretation Code Description Data Marifer rce(s) Supporting Document(s) ID Date Data Source [id number] 02/15/2021 11:50:00 AM EDT [facility] 1 Medication Administration Record [facility] Emergency Department [address] [place] [address] Phone #: ext- [phone] 02/15/2021 11:45 Patient: MARVIN LEAHY Sex: M : 1990 Age: 30yWeight: 92.9 kgHeight/Length: 68 inBMI: 31.1ALLERGIES: None, Seafood Date/Time Medication Administered Medication OrderedGiven TORADOL [IVP] (KETOROLAC Toradol IVP 30 mg (NOW x1)12:35 02/15/2021 TROMETHAMINE)Harry Garza RN Dose: 30 mg IVP Site: #1 left Name Value Range Interpretation Code Description Data Marifer rce(s) Supporting Document(s) ID Date Data Source [id number] 02/15/2021 11:50:00 AM EDT [facility] 1 General Instructions [facility] Emergency Department [address] [place] [address] Phone #: ext [phone] 02/15/2021 11:45 Patient: MARVIN LEAHY Sex: M : 1990 Age: 30yLeft renal colic with hematuria.INSTRUCTIONSWarnings: GENERAL WARNINGS: Return or contact your physician immediately if your conditionworsens or changes unexpectedly, if not improving as expected, or if other problems arise.Understanding of the discharge instructions verbalized by patient.Follow- up with: [facility] Respective Team [place], , , [address], , [place], [address] Follow up in three days if not well.Follow-up with: Benito Willett M.D., Urology, , [address] [place] [address], [id number] Follow up in three days if not better. Call for an appointment. ADDITIONAL INFORMATIONBlood in the Urine 2 General Instructions [facility] Emergency Department [address] [place] [id number] Phone #: ext- [phone] 02/15/2021 11:45 Patient: [...] using these medicines.Follow-up care 3 General Instructions [facility] Emergency Department [address] [place] [address] Phone #: ext- [phone] 02/15/2021 11:45 Patient: [...] the nose or gums or easy bruising [phone] [employer]. [address] [place] [address]. All rights reserved. This information is not intended as asubstitute for professional medical care. Always follow your healthcare professional's instructions. You have been given the following additional information: Hematuria(Electronically signed by Carter Small 02/15/2021 16:56) Name Value Range Interpretation Code Description Data Marifer rce(s) Supporting Document(s) ID Date Data Source [id number] 02/15/2021 11:50:00 AM EDT [facility] 1 Clinical Report - Nurses [facility] Emergency Department [address] [place] [address] Phone #: ext- [phone] 02/15/2021 11:45 Patient: [...] of Morphine IM. [facility] and he is planning on having the stent removed in 2 weeks. However, pt does notthink he can wait until then.). 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 Pregnyl Intramuscular (Solution Reconstituted 64110 unit), 3x a week. risperiDONE Oral (Tablet Disintegrating 1 mg), 2x a day. traZODone HCl Oral (Tablet 50 mg), daily. Trolamine Salicylate External. 2 Clinical Report - Nurses [facility] Emergency Department [address] [place] [address] Phone #: ext- [phone] 02/15/2021 11:45 Patient: MARVIN LEAHY Sex: M : 1990 Age: 30y Xolair Subcutaneous (Solution Reconstituted 150 mg) 300mg, 3x a week. Zofran Oral 4 mg, 3x a day as needed. --11:53 02/15/21 Elzbieta Billingsley RYangN. oxyCODONE-Acetaminophen Oral (Tablet 5-325 mg), 3x a [...] on patient. --11:55 02/15/21 Elzbieta Billingsley R.N.PHYSICAL [id number] 02/15/21. To room via stretcher.GENERAL / NEURO / PSYCH: Alert. Oriented X 4. Appears in pain. 3 Clinical Report - Nurses [facility] Emergency Department [address] [place] [address] Phone #: ext- [phone] 02/15/2021 11:45 Patient: MARVIN LEAHY Sex: M [...] to sonogram by wheelchair with mask and environmental monitoring technician. (1244). --12:46 02/15/21 Harry Garza RN Patient returned from sonogram by wheelchair with mask and environmental monitoring technician. ([id number]). --13:10 02/15/21 Harry Garza RN 13:13 02/15/21. BP: 126/80. MAP: 95. HR: 68. RR: 18. O2 saturation: 100% on room air. Pain level now: 7/10. --13:19 02/15/21 Harry Garza RN 13:13 02/15/2021 Toradol IVP Response: pain is improving. Symptoms have improved the patient feels better. (pain 7 / 10). --13:20 02/15/21 Harry Garza RN.DISPOSITION / DISCHARGE 14:25 02/15/21. Condition at departure: improved. No learning barriers present. Discharge instructions provided and reviewed with the patient. Reviewed referral to a urologist (tra balderas). Patient verbalized understanding. Written instructions provided in Iranian. The patient was discharged home and accompanied by exhibit builder. He left ambulatory and via private vehicle. 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 --14:49 02/15/21 Michelle Rowland R.N. 14:48 02/15/21. BP: 130/68. MAP: 88. HR: 70. RR: 18. O2 saturation: 99%. Temp: 98 F. Pain level now: 03/18. --14:49 02/15/21 Michelle Rowland R.N. Departure time: 14:49 02/15/2021. --15:19 02/15/21 Harry Garza RN 14:40 02/15/2021 Site #1 removed upon discharge. Catheter intact. Bandaid applied. --15:20 02/15/21 Harry Garza RN. 4 Clinical Report - Nurses [facility] Emergency Department [address] [place] [address] Phone #: ext- [phone] 02/15/2021 11:45 Patient: MARVIN LEAHY Sex: M : 1990 Age: 30yLocked/Released at 02/15/2021 17:19 by Harry Garza RN Name Value Range Interpretation Code Description Data Marifer rce(s) Supporting Document(s) ID Date Data Source [id number] 02/15/2021 11:50:00 AM EDT [facility] 1 Clinical Report - Physicians/Mid Levels [facility] Emergency Department [address] [place] [address] Phone #: ext- [phone] 02/15/2021 11:45 Patient: [...] needed. 2 Clinical Report - Physicians/Mid Levels [facility] Emergency Department [address] [place] [address] Phone #: ext- [phone] 02/15/2021 11:45 Patient: MARVIN LEAHY Sex: M [...] 2x a day. Pregnyl Intramuscular (Solution Reconstituted 35438 unit), 3x a week. risperiDONE Oral (Tablet [...] EKG 3 Clinical Report - Physicians/Mid Levels [facility] Emergency Department [address] [place] [address] Phone #: ext- [phone] 02/15/2021 11:45 Patient: MARVIN LEAHY Sex: M : 1990 Age: 30y Laboratory Tests: US RENAL COMPLETE: (DERRICK: 02/15/2021 12:31) ( [facility] 02/15/2021 15:10) In Progress US RENAL COMPLETE Reason(s): flank pain TRANSPORTATION: S IV? IV?(No) O2? Oxygen?(No) Kamila Urinalysis: (DERRICK: 02/15/2021 12:15) ( [facility] 02/15/2021 13:23) Final results Test Result Flag [...] hematuria.INSTRUCTIONS 4 Clinical Report - Physicians/Mid Levels [facility] Emergency Department [address] [place] [address] Phone #: ext- [phone] 02/15/2021 11:45 Patient: MARVIN LEAHY Sex: M : 1990 Age: 30y Warnings: GENERAL WARNINGS: Return or contact your physician immediately if your condition worsens or changes unexpectedly, if not improving as expected, or if other problems arise. Understanding of the discharge instructions verbalized by patient. [facility] with: [facility] Respective Team [place], , , [address] [facility], , [place], [address] Follow up in three days if not well. Follow-up with: Benito Willett M.D., Urology, , [address] [place] [address], [id number] Follow up in three days if not better. Call for an appointment.(Electronically signed by Carter Small 02/15/2021 16:56) Name Value Range Interpretation Code Description Data [facility] Supporting Document(s) ID Date Data Source [id number] 02/15/2021 11:50:00 AM EDT [facility] Addenda for MARVIN LEAHY VisitID: [id number] Date: 16:11called to lobby by reel and rewinder operator, pt is refusing to leave, technical proposal writer went and spoke to pt, pt states he wants to beadmitted because something is wrong, Dr Small informed. Called nursing administrator operations asst no answer, joe, called Sandeep Dixon and informed of situation and he recommended calling the police, policecalled and awaiting their arrival.(Electronically signed by Michelle Rowland R.N. - 02/15/2021 16:11) Name Value Range Interpretation Code Description Data Marifer rce(s) Supporting Document(s) ID Date Data Source [id number] 02/15/2021 01:22:00 PM EDT [facility] Name Value Range Interpretation Code Description Data [facility] rc(s) Supporting Document(s) URINALYSIS [facility] Hos[facility] albin UR[facility] COL[facility] yellow NORMAL: Yellow [facility]sp[facility] CLARITY clear NORMAL: Clear [facility] Ho spital Specific gravity of Urine by Test strip 1.020 1.001 - 1.030 [facility] pH 8 5 - 9 [facility] Glucose [Mass/volume] in Urine by Test strip NORM NORMAL: Negat [facility] Bilirubin.total [Presence] in Urine by Test strip NEG NORMAL: Negative [facility] Ketones [Presence] in Urine by Test strip NEG NORMAL: Negative [facility] Protein [Mass/volume] in Urine by Test strip NEG NORMAL: Negat [facility] Nitrite [Presence] in Urine by Test strip NEG NORMAL: Negative [facility] BLOOD 250 NORMAL: Negative [facility] Leukocyte esterase [Presence] in Urine by Test strip 100 LLUVIA L: Negative [facility] Urobilinogen [Mass/volume] in Urine by Test strip NOR less fidelia n 1.0 mg/dL [facility] MICROSCOPIC See Below [facility] ital WBC 1 - 3 NORMAL: NONE SEEN [facility] Erythrocytes [#/volume] in Urine by Test strip 3 - 5 NORMAL: NON E SEEN [facility] ID Date Data Source [id number] 01/11/2021 02:18:00 [place] [address] OPERATIVE SUMMARYNAME: TOSIN Rivera DATE OF : 1990ATTENDING PHYS: BENITO WILLETT MD DATE: 01/11/21 MR#: [id number] OF PROCEDURE: 01/11/2021RE- OPERATIVE DIAGNOSIS: 1. Left flank pain. 2. Gross hematuria. 3. History of kidney stones.POST-OPERATIVE DIAGNOSIS: 1. Left flank pain. 2. Gross hematuria. 3. History of kidney stones. 4. Left proximal urethra/UPJ stricture.PROCEDURE PERFORMED: 1. Cystoscopy with bilateral retrograde pyelograms. 2. Left ureteroscopy. 3. Placement of left ureteral stent.ATTENDING SURGEON: Dr. Benito Willett.PHYSICIAN DISPATCHER SHIP PILOT: PERLA Sky.ANESTHESIA: Monitored anesthesia care.ESTIMATED BLOOD LOSS: Minimal.COMPLICATIONS: None.DRAINS: 7 x 24 JJ ureteral stent.DISPOSITION: To the Ambulatory Surgical Unit.CONDITION: Stable.INTRAOPERATIVE FINDINGS:Dense obstructive stricture of the proximal left ureter with hydronephrosis.INDICATIONS FOR PROCEDURE: [address] [place] [address] OPERATIVE SUMMARYNAME: TOSIN Rivera DATE OF : 1990ATTENDING PHYS: BENITO WILLETT MD DATE: 01/11/21 MR#: [id number] Tosin is a 30-year-old gentleman who had [...] were carried out, cystourethroscopy using a 22 Citizen Of [place] cystoscope mounted on a 30degree lens was [...] were no complications.Copies of this report to [facility]. [address] [place] [address] OPERATIVE SUMMARYNAME: TOSIN Rivera DATE OF : 1990ATTENDING PHYS: BENITO WILLETT MD DATE: 01/11/21 MR#: [id number]: BENITO WILLETT MD 01/11/21 13:30DT: SANTO 01/11/21 14:04DS: BENITO WILLETT MD 02/12/21 10:59 3 Name Value Range Interpretation Code Description Data Marifer rce(s) Supporting Document(s) ID Date Data Source [id number] 02/12/2021 09:25:00 AM EDT [facility] ([facility]) Name Value Range Interpretation Code Description Data Marifer rce(s) Supporting Document(s) Appearance of Urine Laboratory test result [facility] ([facility]) Color of Urine Laboratory test result [facility] ([facility]) pH of Urine by Test strip 8 5-9 [facility] ([facility]) Spec [place] 1.010 1.001-1.030 [facility] ([facility]) Protein [Presence] in Urine by Test strip Laboratory test result [facility] ([facility]) Leukocytes Laboratory test result [facility] ([facility]) Nitrate [Presence] in Urine Laboratory test result [facility] ([facility]) Inhouse Glucose Laboratory test result [facility] ([facility]) Ketones [Presence] in Urine by Test strip Laboratory test result [facility] ([facility]) Bilirubin.total [Presence] in Urine by Test strip Laboratory test res ult [facility] ([facility]) Urobilinogen Laboratory test result [facility] ([facility]) Blood type and Indirect antibody screen panel - Blood 250 Above high normal [facility] ([facility]) ID Date Data Source [id number] 02/05/2021 03:38:00 PM EDT [facility] ([facility]) Name Value Range Interpretation Code Description Data Marifer rce(s) Supporting Document(s) Fibrin D-dimer [Presence] in Platelet poor plasma Laboratory test result 0.27-0.50 [facility] ([facility]) Is patient fasting? N ID Date Data Source [id number] 02/05/2021 03:38:00 PM EDT [facility] ([facility]) Name Value Range Interpretation Code Description Data Marifer rce(s) Supporting Document(s) Basic Metabolic Pane Laboratory test result [facility] ([facility]) Is patient fasting? N Sodium 141 meq/L 134-153 [facility] ([facility]) Is patient fasting? N Potassium 3.8 meq/L 3.6-5.0 [facility] ([facility]) Is patient fasting? N Chloride 105 meq/L 98-107 [facility] ([facility]) Is patient fasting? N Co2 27 meq/L 22-30 [facility] Is patient fasting? N Glucose 87 mg/dL 70-99 [facility] ([facility]) Is patient fasting? N BUN 9 mg/dL 7-21 [facility] ([facility]) Is patient fasting? N BUN/Creat 10 8-27 [facility] ([facility]) Is patient fasting? N Creatinine 0.9 mg/dL 0.7-1.5 [facility] ([facility]) Is patient fasting? N Calcium 9.7 mg/dL 8.4-10.2 [facility] ([facility]) Is patient fasting? N Anion Gap 9.0 mmol/L 8.0-16.0 [facility] ([facility]) Is patient fasting? N Afr Amer GFR Laboratory test result [facility] ([facility]) Is patient fasting? N Age 30 yrs [facility] ([facility]) Is patient fasting? N Non-Aa GFR Laboratory test result [facility] ([facility]) Is patient fasting? N ID Date Data Source [id number] 02/05/2021 03:38:00 PM EDT [facility] ([facility]) Name Value Range Interpretation Code Description Data Marifer rce(s) Supporting Document(s) Protime 13.0 s 11.0-15.5 [facility] ([facility]) Is patient fasting? N PTT 29.1 s 24.8-36.7 [facility] ([facility]) Is patient fasting? N Inr 0.94 0.93-1.23 [facility] ([facility]) Is patient fasting? N ID Date Data Source [id number] 02/05/2021 03:38:00 PM EDT [facility] ([facility]) Name Value Range Interpretation Code Description Data Marifer rce(s) Supporting Document(s) CBC No Diff Laboratory test result [facility] ([facility]) Is patient fasting? N WBC 5.8 10^3/uL 4.2-11.0 [facility] ([facility]) Is patient fasting? N Hemoglobin 13.7 g/dL 14.0-16.0 Below low normal [facility] ( [facility]) Is patient fasting? N RBC 4.67 10^6/uL 4.50-6.30 [facility] ([facility]) Is patient fasting? N Hematocrit 41.3 % 41.0-51.0 [facility] ([facility]) Is patient fasting? N MCV 88.4 fL 80.0-94.0 [facility] ([facility]) Is patient fasting? N MCH 29.3 pg 27.0-34.0 [facility] ([facility]) Is patient fasting? N MCHC 33.2 g/dL 31.0-36.0 [facility] ([facility]) Is patient fasting? N Platelets 220 10^3/uL 150-450 [facility] ([facility]) Is patient fasting? N RDW 12.3 % 11.5-14.8 [facility] ([facility]) Is patient fasting? N MPV 10.4 fL 7.4-10.4 [facility] ([facility]) Is patient fasting? N ID Date Data Source [id number] 02/05/2021 03:38:00 PM EDT [facility] ([facility]) Name Value Range Interpretation Code Description Data Marifer rce(s) Supporting Document(s) Dilute ProthrombinTime(dPT) 35.7 sec 0.0-55.0 [facility] ([facility]) Is patient fasting? N dPT Confirm Ratio 1.12 Ratio 0.00-1.40 [facility] ([facility]) Is patient fasting? N Thrombin Time 20.5 sec 0.0-23.0 [facility] ([facility]) Is patient fasting? N dRVVT 35.6 sec 0.0-47.0 [facility] ([facility]) Is patient fasting? N PTT-LA 32.9 sec 0.0-51.9 [facility] ([facility]) Is patient fasting? N Lupus ReflexInterpretation Laboratory test result [facility] ([facility]) Is patient fasting? N ID Date Data Source [id number] 02/05/2021 03:38:00 PM EDT [facility] ([facility]) Name Value Range Interpretation Code Description Data Marifer rce(s) Supporting Document(s) F2 gene [id number] [Presence] in Blood or Tissue by Mo lecular genetics method Laboratory test result [facility] ([facility]) Is patient fasting? N ID Date Data Source [id number] 02/05/2021 03:38:00 PM EDT [facility] ([facility]) Name Value Range Interpretation Code Description Data Marifer rce(s) Supporting Document(s) Factor V Leiden Laboratory test result [facility] ([facility]) Is patient fasting? N ID Date Data Source [id number] 02/05/2021 03:38:00 PM EDT [facility] ([facility]) Name Value Range Interpretation Code Description Data Marifer rce(s) Supporting Document(s) Anticardiolipin Ab,IgG,Qn Laboratory test result 0-14 [facility] ([facility]) Is patient fasting? N Anticardiolipin Ab,IgM,Qn Laboratory test result 0-12 [facility] ([facility]) Is patient fasting? N Anticardiolipin Ab,IgA,Qn Laboratory test result 0-11 [facility] ([facility]) Is patient fasting? N ID Date Data Source [id number] 02/05/2021 03:38:00 PM EDT [facility] ([facility]) Name Value Range Interpretation Code Description Data Marifer rce(s) Supporting Document(s) Antithrombin Activity 93 % 75-135 [facility] ( [facility]) Is patient fasting? N Antithrombin Antigen 85 % 72-124 [facility] ([facility]) Is patient fasting? N ID Date Data Source [id number] 02/05/2021 03:38:00 PM EDT [facility] ([facility]) Name Value Range Interpretation Code Description Data Marifer rce(s) Supporting Document(s) Protein C Antigen 126 % 60-150 [facility] ([facility]) Is patient fasting? N Protein S, Free 117 % 57-157 [facility] ([facility]) Is patient fasting? N Protein S, Total 69 % 60-150 [facility] ([facility]) Is patient fasting? N ID Date Data Source [id number] 02/12/2021 02:26:00 PM EDT [facility] Name Value Range Interpretation Code Description Data Marifer rce(s) Supporting Document(s) F2 gene mutations found [Identifier] in Blood or Tissue by Molecular genetics method Nominal [facility].Comment:A point mutation ([id number]) in the factor II (prothrombin) gene is thesecond most common cause of inherited thrombophilia. The incidence ofthis mutation in the [place] population is about 2% and in theAfrican [place] population it is approximately 0.5%. This mutation [...] individual mutations.This assay detects only the prothrombin U59894C mutation and doesnot measure genetic abnormalities elsewhere in the genome. Otherthrombotic risk factors may be pursued through systematic clinicallaboratory analysis. These factors include the R506Q (Leiden)mutation in the Factor V gene, plasma homocysteine levels, as wellas testing for deficiencies of antithrombin III, protein C andprotein S.Genetic Counselors are available for health care providersto discuss results at [phone]).Methodology:DNA analysis of the Factor II gene was performed by PCRamplification followed by restriction analysis. Thediagnostic sensitivity is >99% for both. All the tests mustbe combined with clinical information for the most accurateinterpretation. Molecular-based testing is highly accurate,but as in any laboratory test, diagnostic errors may occur.This test was developed and its performance characteristicsdetermined by [facility]. It has not been cleared or approvedby the Food and Drug Administration.Poort SR, et al. Blood. 1996; 88:9170-8016.Rohan LEON. Circulation. 2004; 110:e15-e18.Akash Sotelo et al. Arterioscler Thromb Vasc Biol. 1999;19:700-703.Cristiano Barney, PhD, Anastasia Roca, PhD, FACMGW. Johana Vogel, PhD, Minnie Allred, PhD, Edmar Marrero, PhD, FACAndre Escamilla, PhD, FACMG ID Date Data Source [id number] 02/11/2021 01:55:00 PM EDT [facility] Name Value Range Interpretation Code Description Data Marifer rce(s) Supporting Document(s) F5 gene mutations found [Identifier] in Blood or Tissue by Molecular genetics method Nominal COMMENT [facility] l Result: Negative (no mutation found)Fac tor V [...] in the workup for venous thrombosis include [id number] mutation in the factor II (prothrombin) gene,protein S and C deficiency, and antithrombin deficiencies.Anticardiolipin antibody and lupus anticoagulant analysismay be appropriate for certain patients, as well ashomocysteine levels.Contact your local [facility] for information on how to orderadditional testing if desired.Genetic counselors are available for health care providers to discuss results at [phone]).Methodology:DNA analysis of the Factor V gene was performed by allele-specificPCR. The diagnostic sensitivity and specificity is >99% for both.Molecular-based testing is highly accurate, but as in any laboratorytest, diagnostic errors may occur. All test results must be combinedwith clinical information for the most accurate interpretation.This test was developed and its performance characteristics determinedby [facility]. It has not been cleared or approved by the Food and DrugAdministration.References:Gabo Cruz (1995). Clin Lab Med 16:169- 186.Cristiano Barney, PhD, FACMonika Roca, PhD, FACMGW. Johana Vogel, PhD, Minnie Allred, PhD, KURTMGSteve Marrero, PhD, KURTMGDale Escamilla PhD, FACMG ID Date Data Source [id number] 02/08/2021 08:09:00 PM EDT [facility] Name Value Range Interpretation Code Description Data Marifer rce(s) Supporting Document(s) Protein C Ag actual/normal in Platelet poor plasma by Immuno logic method 126 % 60-150 [facility] Protein S Ag actual/normal in Platelet poor plasma by Immuno logic method 69 % 60-150 [facility] This test was developed and its performa nce characteristicsdetermined by [facility]. It has not been cleared or approvedby the Food and Drug Administration. Protein S Free Ag actual/normal in Platelet poor plasm a by Immunologic method 117 % 57-157 [facility] This test was developed and its performa nce characteristicsdetermined by [facility]. It has not been cleared or approvedby the Food and Drug Administration. ID Date Data Source [id number] 02/08/2021 08:06:00 PM EDT [facility] Name Value Range Interpretation Code Description Data Marifer rce(s) Supporting Document(s) aPTT.lupus sensitive W excess phospholip id actual/Normal (normalized [place] confirm) 35.7 sec 0.0-55.0 [facility] aPTT.lupus sensitive/aPTT.lupus sensitiv e W excess phospholipid (screen to confirm ratio) 1.12 Ratio 0.00-1.40 [facility] Th[facility] time 20.5 sec 0.0-23.0 [facility] aPTT.lupus sensitive ([place] screen) 32.9 sec 0.0-51.9 [facility] dRVVT (LA screen) 35.6 sec 0.0-47.0 [facility] Lupus anticoagulant two screening tests W Reflex [interpretation] C omment: [facility] No lupus anticoagulant was detected. ID Date Data Source [id number] 02/08/2021 02:42:00 PM EDT [facility] Name Value Range Interpretation Code Description Data Marifer rce(s) Supporting Document(s) Antithrombin actual/normal in Platelet poor plasma by Chromo genic method 93 % 75-135 [facility] Direct Xa inhibitor anticoagulants such as rivaroxaban, apixaban andedoxaban will lead to spuriously elevated antithrombin activitylevels possibly masking a deficiency. Antithrombin Ag actual/normal in Platelet poor plasma by Immunologic method 85 % 72-124 [facility] This test was developed and its performa nce characteristicsdetermined by [facility]. It has not been cleared or approvedby the Food and Drug Administration. ID Date Data Source [id number] 02/08/2021 07:51:00 AM EDT [facility] Name Value Range Interpretation Code Description Data Marifer rce(s) Supporting Document(s) Cardiolipin IgG Ab [Units/volume] in Serum by Immunoassay <9 GPL U/mL 0-14 [facility] Negative: <15 Indeterminate: 15 - 20 Low-Med Positive: >20 - 80 High Positive: >80 Cardiolipin IgM Ab [Units/volume] in Serum by Immunoassay <9 MPL U/mL 0-12 [facility] Negative: <13 Indeterminate: 13 - 20 Low-Med Positive: >20 - 80 High Positive: >80 Cardiolipin IgA Ab [Units/volume] in Serum by Immunoassay <9 APL U/mL 0-11 [facility] Negative: <12 Indeterminate: 12 - 20 Low-Med Positive: >20 - 80 High Positive: >80 ID Date Data Source [id number] 02/05/2021 04:31:00 PM EDT [facility] Name Value Range Interpretation Code Description Data Marifer rce(s) Supporting Document(s) CBC NO DIFF [facility] COMPLETE BLOOD COUNT Leukocytes [#/volume] in Blood by Automated count 5.8 10^3/uL 4.2 - 1 1.0 [facility] Erythrocytes [#/volume] in Blood by Automated count 4.67 10^6/uL 4. 50 - 6.30 [facility] Hemoglobin [Mass/volume] in Blood 13.7 g/dL 14.0 - 16.0 L [facility] Hematocrit [Volume Fraction] of Blood by Automated count 41.3 % 4 1.0 - 51.0 [facility] Erythrocyte mean corpuscular volume [Entitic volume] by Auto mated count 88.4 fL 80.0 - 94.0 [facility] Erythrocyte mean corpuscular hemoglobin [Entitic mass] by Automated count 29.3 pg 27.0 - 34.0 [facility] Erythrocyte mean corpuscular hemoglobin concentration [Mass/volume] by Automated count 33.2 g/dL 31.0 - 36.0 [facility] Erythrocyte distribution width [Ratio] by Automated count 12.3 % 11.5 - 14.8 [facility] Platelets [#/volume] in Blood by Automated count 220 10^3/uL 150 - 45 0 [facility] Platelet mean volume [Entitic volume] in Blood by Automated count 10.4 fL 7.4 - 10.4 [facility] ID Date Data Source [id number] 02/05/2021 04:31:00 PM EDT [facility] Name Value Range Interpretation Code Description Data Marifer rce(s) Supporting Document(s) Fibrin D-dimer FEU [Mass/volume] in Platelet poor plasma <0. 27 ug/mL 0.27 - 0.50 [facility] ID Date Data Source [id number] 02/05/2021 04:31:00 PM EDT [facility] Name Value Range Interpretation Code Description Data Marifer rce(s) Supporting Document(s) Prothrombin time (PT) 13.0 SECONDS 11.0 - 15.5 [facility] INR in Platelet poor plasma by Coagulation assay 0.94 0.93 - 1. 23 [facility] aPTT in Blood by Coagulation assay 29.1 SECONDS 24.8 - 36.7 [facility] \\BLDo\\INR INTERPRETATION\\BLDx\\ Therapeutic range for Coumadin and related oral anticoagulants. - International Normalized Ratio (INR): 2.0 - 3.0 for Venous Thrombosis, Pulmonary Embolus, Tissue heart valves, Acute RI Atrial Fibrillation, Valvular heart disease and recurrent Systemic Embolism. - International Normalized Ratio (INR): 2.5 - 3.5 for Mechanical Prosthetic valve. ID Date Data Source [id number] 02/05/2021 04:31:00 PM EDT [facility] Name Value Range Interpretation Code Description Data Marifer rce(s) Supporting Document(s) BASIC METABOLIC PANEL [facility] BASIC METABOLIC PANEL Sodium [Moles/volume] in Serum or Plasma 141 mEq/L 134 - 153 [facility] Potassium [Moles/volume] in Serum or Plasma 3.8 mEq/L 3.6 - 5.0 [facility] Chloride [Moles/volume] in Serum or Plasma 105 mEq/L 98 - 107 [facility] Carbon dioxide, total [Moles/volume] in Serum or Plasma 27 MEQ/L 22 - 30 [facility] Glucose [Mass/volume] in Serum or Plasma 87 MG/DL 70 - 99 [facility] BUN 9 MG/DL 7 - 21 [facility] al Creatinine [Mass/volume] in Serum or Plasma 0.9 MG/DL 0.7 - 1.5 [facility] BUN/CREAT 10 8 - 27 [facility] Calcium [Mass/volume] in Serum or Plasma 9.7 MG/DL 8.4 - 10.2 [facility] Anion gap 3 in Serum or Plasma 9.0 mmol/L 8.0 - 16.0 [facility] AGE 30 yrs [facility] al AFR AMER GFR >60 mL/min [facility] Ho spital NON-AA GFR >60 mL/min [facility] ital Male GFR Inter prentation 20-49 yrs [...] >32 mL/min Normal ID Date Data Source [id number] 01/23/2021 08:00:00 AM EDT [facility] ([facility]) Name Value Range Interpretation Code Description Data Marifer rce(s) Supporting Document(s) Color of Urine Laboratory test result [facility] ([facility]) Appearance of Urine Laboratory test result [facility] ([facility]) Spec [place] 1.015 1.001-1.030 [facility] ([facility]) Leukocytes Laboratory test result [facility] ([facility]) pH of Urine by Test strip 5 5-9 [facility] NT ([facility]) Nitrate [Presence] in Urine Laboratory test result [facility] ([facility]) Protein [Presence] in Urine by Test strip Laboratory test result [facility] ([facility]) Ketones [Presence] in Urine by Test strip Laboratory test result [facility] ([facility]) Inhouse Glucose Laboratory test result [facility] ([facility]) Urobilinogen Laboratory test result [facility] ([facility]) Blood type and Indirect antibody screen panel - Blood 250 Above high normal [facility] ([facility]) Bilirubin.total [Presence] in Urine by Test strip Laboratory test res ult [facility] ([facility]) ID Date Data Source [id number] 01/22/2021 09:08:00 AM EDT [facility] [address] [place] [address] PHONE: [phone] FAX: [phone] Name .................. : LILIANEBENEZER ADDISONEW Nicole Acct Number.................. : [id number] ROOM. ................. : TR-06 Number ................... : [id number] Stay type ............. : E/R Discharge Date......... ... : 01/18/21 Admit Date ......... : 01/18/21 Admit Phys .................... : LETCIIA Burleson Date of ....... : 1990 Family Phys ................... : NON STAFF Phone .................. : [phone] Age ................................ : 30 Film# .................. .:[id number] Sex ................................. : M Unsigned transcriptions are preliminary reports and do not represent a medical or legal document ABDOMEN 1 VIEW 85023 COMPLETE:01/18/21 17:29 JOLLY 6172 Reason(s): Abdominal Pain [...] By Marlon Decker MD , 01/22/21 09:08, ON LICENSE OF [facility] Transcribe Initials: GAYATHRI , Transcribe Date: 01/19/21 00:49, Dictation Date: Copy for: GRAYSON GONZALEZ via fax Copy for: [address] [place] [address] DISCHARGED Page 1 of 1 Name Value Range Interpretation Code Description Data Marifer rce(s) Supporting Document(s) ID Date Data Source [id number] 01/18/2021 01:23:00 PM EST [facility] 1 OrderSheet [facility] Emergency Department [address] [place] [address] Phone #: [phone]- [phone] 01/18/2021 13:22 Patient: MARVIN LEAHY Sex: M : 1990 Age: 30yWEIGHT:92.9 kg (S) HEIGHT:68 inches (S) BMI:31.1ALLERGIES: None, SeafoodCHIEF COMPLAINT: abdominal pain, nausea, vomitingDIAGNOSIS: Abdominal painLAB ORDERSOrder Description Priority Entered Acknowledged InitialedCBC w Diff STAT 13:44 01/18/2021 13:46 Harry DUNCAN;CMP STAT 13:44 01/18/2021 13:46 Harry Garza RN PA;Urinalysis (Clean STAT 13:44 01/18/2021 17:29 María DUNCAN;DIAGNOSTIC STUDY ORDERSOrder Description Priority Entered Acknowledged InitialedAbdomen 1 View STAT 13:45 01/18/2021 13:46 Harry Garza RN PA; NOTES: KUB, Left Stent Ureter Reason for Study: Abdominal PainMEDICATION/IV/DRIP/FLUID ORDERSOrder Description Priority Entered Acknowledged InitialedToradol IM 30 mg 13:44 01/18/2021 Cancelled: Patient Refusal 13:53 Harry DUNCAN;Marianne ODT PO 8 13:45 01/18/2021 Cancelled: Patient Refusal 13:54 Yomaira DUNCAN;GENERAL ORDERSOrder Description Priority Entered Acknowledged Initialed[Electronically signed by Harry Garza RN (17:29 01/18/2021)] 2 OrderSheet [facility] Emergency Department [address] [place] [address] Phone #: ext- [phone] 01/18/2021 13:22 Patient: MARVIN LEAHY Sex: M : 1990 Age: 30y[Electronically signed by Larry Moreno (21:10 01/19/2021)][Electronically locked by Harry Garza RN (17:29 01/18/2021)] Name Value Range Interpretation Code Description Data Marifer rce(s) Supporting Document(s) ID Date Data Source [id number] 01/18/2021 01:23:00 PM EST [facility] 1 Medication Reconciliation Report [facility] Emergency Department [address] [place] [address] Phone #: ext- [phone] 01/18/2021 13:22 Patient: [...] (500 mg), 2x a day Pregnyl Intramuscular (32368 unit), 3x a week risperiDONE Oral (1 mg), 2x a day traZODone HCl Oral (50 mg), daily Trolamine Salicylate External Xolair Subcutaneous (150 mg) 300mg, 3x a week Zofran Oral 4 mg, 3x a day, prnThe source(s) of the original Home Medication information: 2 M edication Reconciliation Report [facility] Emergency Department [address] [place] [address] Phone #: ext- [phone] 01/18/2021 13:22 Patient: [...] - Stop Eliquis, Take with Food or Milk.[facility] [address] [place] [id number]. .ondansetron 8 mg disintegrating tablet Take 1 tablet three times a day for 5 days -- Dispense 15 tablet.Refills: 0. Substitution permitted. Note to Pharmacy - stopped Eliqu is.Pharmacy [facility] [address] [place] [id number]. . -- PERLA Cisse Name Value Range Interpretation Code Description Data Marifer rce(s) Supporting Document(s) ID Date Data Source [id number] 01/18/2021 01:23:00 PM EST [facility] 1 Medication Administration Record [facility] Emergency Department [address] [place] [address] Phone #: ext- [phone] 01/18/2021 13:22 Patient: MARVIN LEAHY Sex: M : 1990 Age: 30yWeight: 92.9 kgHeight/Length: 68 inBMI: 31.1ALLERGIES: None, SeafoodDate/Time Medication Administered Medication Ordered Name Value Range Interpretation Code Description Data [facility] Supporting Document(s) ID Date Data Source [id number] 01/18/2021 01:23:00 PM EST [facility] 1 General Instructions [facility] Emergency Department [address] [place] [address] Phone #: ext- [phone] 01/18/2021 13:22 Patient: MARVIN LEAHY Sex: M : 1990 Age: 30yAcute left upper quadrant and left lower quadrant abdominal pain. (s/o Left UPJ Stent).INSTRUCTIONS(Discussed Eliquis with Dr Bhatt, Hem/Onc at [facility] and pt can discontinue Eliquis and [...] 2x a day.Pregnyl Intramuscular : Solution Reconstituted 17292 unit, 3x a week.risperiDONE Oral : Tablet [...] - Stop Eliquis, Take with Food or Milk.Pharmacy - [facility] [address] [place], [place] [id number]. .ondansetron 8 mg disintegrating tablet Take 1 tablet three times a day for 5 days -- Dispense 15 tablet.Refills: 0. Substitution permitted. Note to Pharmacy - stopped Eliquis.Pharmacy - [facility] [address] [place], [place] [phone]. Phone: [phone] General Instructions [facility] Emergency Department [address] [place] [address] Phone #: ext- [phone] 01/18/2021 13:22 Patient: MARVIN LEAHY Sex: M : 1990 Age: [id number]- 0150 .Follow-up:Follow up with your doctor Thursday [...] options include broth, soup, 3 General Instructions [facility] Emergency Department [address] [place] [address] Phone #: ext- [phone] 01/18/2021 13:22 Patient: [...] chest, arm, back, neck or jaw pain 5719-7083 [employer]. [address] [place] [address], [place] [address]. All rights reserved. This information is not intended as asubstitute for professional medical care. Always follow your healthcare professional's instructions. You have been given the following additional information: Unknown Causes of Abdominal Pain (Male)(Electronically signed by PERLA Cisse 01/19/2021 21:10) Name Value Range Interpretation Code Description Data Marifer rce(s) Supporting Document(s) ID Date Data Source [id number] 01/18/2021 01:23:00 PM EST [facility] 1 Clinical Report - Nurses [facility] Emergency Department [address] [place] [address] Phone #: [phone]- [phone] 01/18/2021 13:22 Patient: MARVIN LEAHY Sex: M : 1990 Age: 30yTRIAGEArrived by EMS. Historian: patient. Unaccompanied. 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 SEPSIS SCREEN NEGATIVE. No suspected or confirmedsigns of infection present. --13:28 01/18/21 Michelle Rowland R.N.13:23 01/18/21. BP: 167/68. MAP: 101. HR: 84. RR: 16. O2 saturation: 98%. Temp: 98.2 F. Pain levelnow: 05/18. --13:28 01/18/21 Michelle Rowland R.N.Weight: 92.9 kg stated. Height/Length: 68 inches Per Patient. BMI: 31.1. --13:23 01/18/21 Michelle Rowland R.N.MedicationsDivalproex Sodium Oral (Tablet Delayed Release 250 mg), 2x a day. Eliquis Oral (Tablet 5 mg), 2x a day. Escitalopram Oxalate Oral (Tablet 10 mg), 2x a day. Ivermectin Oral (Tablet 3 mg) 3 tabs, every 6 months. --13:01/18/21 Michelle Rowland R.N. Memetasone furoate 15mg , 4x a day. Methocarbamol Oral (Tablet 500 mg), 2x a day. Pregnyl Intramuscular (Solution Reconstituted 00079 unit), 3x a week. risperiDONE Oral (Tablet Disintegrating 1 mg), 2x a day. traZODone HCl Oral (Tablet 50 mg), daily. Trolamine Salicylate External. Xolair Subcutaneous (Solution Reconstituted 150 mg) 300mg, 3x a week. Zofran Oral 4 mg, 3x a day as needed. --13:26 01/18/21 Michelle Rowland R.N. HYDROcodone Bitartrate Oral, as needed. --13:26 01/18/21 Michelle Rowland R.N.AllergiesNone.Seafood. --13:26 01/18/21 Michelle Rowland R.N. 2 Clinical Report - Nurses [facility] Emergency Department [address] [place] [address] Phone #: ext- [phone] 01/18/2021 13:22 Patient: MARVIN LEAHY Sex: M : 1990 Age: 30yPROBLEMS:Hematuria.Hypertension.Lumbar Strain.Chronic Back Pain.DVT - Deep Venous Thrombosis.Flank Pain.Syncope.Ureterolithiasis.Urinary Calculi.Nephrolithiasis.Renal Colic.Skin Problems. --13:01/18/21 Michelle Rowland R.N.ADDITIONAL SURGERIES:Ureteral Stent. --13:01/18/21 Michelle Rowland R.N.HistoryPAST MEDICAL HX: Immunizations: up-to-date.SOCIAL [...] integrity risk 3 Clinical Report - Nurses [facility] Emergency Department [address] [place] [address] Phone #: ext- [phone] 01/18/2021 13:22 [id number] Sex: M : 1990 Age: 30y identified. --13:28 01/18/21 Michelle Rowland R.N. Interventions Identification band on patient. To treatment room. --13:28 01/18/21 Michelle Rowland R.N. No allergy band on patient. --13:31 01/18/21 Harry Garza RN.PHYSICAL ZZHYIGLWPG51:32 01/18/21. To room via stretcher.GENERAL / NEURO [...] patient confirmed. Blood samples drawn by tech. (8192). --13:54 01/18/21 Harry Garza RN ( 1350 pt refusing Zofran and Toradol P A notified). --13:55 01/18/21 Harry Garza RN 14:00 01/18/21. BP: 157/87. MAP: 110. HR: 88. RR: 16. O2 saturation: 99%. --14:00 01/18/21 [facility] Tech, Verónica, ER Tech1 Patient transported to radiology by wheelchair with mask and environmental monitoring technician. (0123). --14:30 01/18/21 Harry Garza RN Correction --14:31 01/18/21 Harry Garza RN ( 0949 Dr Romero in to see pt). --14:32 01/18/21 Harry Garza RN Patient transported to radiology by stretcher with tech. --14:43 01/18/21 Michelle Rowland R.N. Patient transported by stretcher with mask. ([address] Romero). Patient returned from radiology by stretcher with mask and environmental monitoring technician. (8144). --14:45 01/18/21 Harry Garza RN 14:58 01/18/21. BP: 138/83. MAP: 101. HR: 76. RR: 16. O2 saturation: 99%. --14:58 01/18/21 [place] metal polisher, Verónica, ER Tech1.DISPOSITION / DISCHARGE 15:35 01/18/21. Departure time: 15:35 01/18/2021. Condition at departure: improved. No learning barriers present. 4 Clinical Report - Nurses [facility] Emergency Department [address] [place] [address] Phone #: ext- [phone] 01/18/2021 13:22 Patient: MARVIN LEAHY Sex: M : 1990 Age: 30y Discharge instructions provided and reviewed with the patient. Reviewed warnings (stop Eliquis start motrin 800 mg). Reviewed medication(s) side effect s, precautions, dosing and course information. Prescription(s) sent electronically to pharmacy. Reviewed referral to a urologist. Provided to follow-up provider. Patient verbalized understanding. Written instructions provided in Iranian. The patient was discharged by the physician court assistant. He was discharged home. He left ambulatory and via private vehicle. Patient driving. --15:43 01/18/21 aHrry Garza RN 15:35 01/18/21. BP: 132/84. MAP: 100. HR: 66. RR: 16. O2 saturation: 100% on room air. Temp: 97 F (oral). Pain level now: 5/10. --15:43 01/18/21 Harry Garza RN.Locked/Released at 17:29 by Harry Gazra RN Name Value Range Interpretation Code Description Data Marifer rce(s) Supporting Document(s) ID Date Data Source [id number] 01/18/2021 01:23:00 PM [facility] 1 Clinical Report - Physicians/Mid Levels [facility] Emergency Department [address] [place] [address] Phone #: ext- [phone] 01/18/2021 13:22 Patient: MARVIN LEAHY Sex: M : 1990 Age: 30y Time Seen: 13:35 01/18/2021. Arrived- By private vehicle. Historian- patient.HISTORY OF PRESENT ILLNESS Chief Complaint: ABDOMINAL PAIN and VOMITING and NAUSEA. This started 1 weeks ago; ureter STENT PLACED BY OBEN LAST THURSDAY, left abd pain started this [...] Oral, as needed. 2 Clinical Report - Physicians/Mid Levels [facility] Emergency Department [address] [place] [address] Phone #: ext- [phone] 01/18/2021 13:22 Patient: MARVIN LEAHY Sex: M : 1990 Age: 30y Memetasone furoate 15mg , 4x a day. Methocarbamol Oral (Tablet 500 mg), 2x a day. Pregnyl Intramuscular (Solution Reconstituted 19620 unit), 3x a week. risperiDONE Oral (Tablet [...] COUNT 3 Clinical Report - Physicians/Mid Levels [facility] Emergency Department [address] [place] [address] Phone #: ext- [phone] 01/18/2021 13:22 Patient: MARVIN LEAHY Sex: M : 1990 Age: 30y WBC [...] Male GFR Interprentation 20-49 yrs >60 mL/min Tdhgrg21-82 yrs >56 mL/min Normal 60-69 yrs >49 mL/min Normal 70-79yrs>42 mL/min Normal 80 and above >35 mL/min Normal Female GFRInterpretation 20-39 yrs >60 mL/min Normal 40-49 yrs >58 mL/min 4 Clinical Report - Physicians/Mid Levels [facility] Emergency Department [address] [place] [address] Phone #: ext- [phone] 01/18/2021 13:22 Patient: MARVIN LEAHY Sex: M : 1990 Age: 30y Normal 50-59 yrs >51 mL/min Normal 60-69 yrs >45 mL/min Normal 70-79 yrs >39 mL/min Normal 80 and above >32 mL/min Normal.PROGRESS AND PROCEDURESCourse of Care: 15:27 Jan 18 2021. Evaluation after observation. (Pt was evaluated in the ED by Daya and pt refused stent removal, I talked to Dr Nithin Castle/Onc at [facility] and we will stop his Eliquis and hecan take Ibuprofen safely with food.). Patient counseled in person regarding the patient's stable condition, test results, diagnosis and need for follow-up. Patient agrees with plan of care. 15:28 Jan 181. Disposition: Discharged home in good and improved condition (15:28 Jan 18 2021).CLINICAL IMPRESSION Acute left upper quadrant and left lower quadrant abdominal pain. (s/o Left UPJ Stent).INSTRUCTIONS (Discussed Eliquis with Dr Bhatt, Hem/Onc at [facility] and pt can discontinue Eliquis and [...] a day. Pregnyl Intramuscular : Solution Reconstituted 42281 unit, 3x a week. risperiDONE Oral : Tablet Disintegrating 1 mg, 2x a day. traZODone HCl Oral : Tablet 50 mg, daily. 5 Clinical Report - Physicians/Mid Levels [facility] Emergency Department [address] [place] [address] Phone #: ext- [phone] 01/18/2021 13:22 Patient: [...] Stop Eliquis, Take with Food or Milk. [facility] [address] [place] [address] ; [place], [place] [id number]. . ondansetron 8 mg disintegrating tablet Take 1 tablet three times a day for 5 days -- Dispense 15 tablet. Refills: 0. Substitution permitted. Note to Pharmacy - stopped Eliquis. [facility] [address] [facility] ; [place], [place] [phone]. . Follow- up: Follow up with your doctor Thursday even if well. Call for an appointment. Reason for referral: evaluation and treatment. Summary of care provided to patient. Understanding of the discharge instructions verbalized by patient.(Electronically signed by PERLA Cisse 01/19/2021 21:10) Name Value Range Interpretation Code Description Data Marifer rce(s) Supporting Document(s) ID Date Data Source [id number] 01/23/2021 07:12:00 AM EDT [facility] Name Value Range Interpretation Code Description Data Marifer rce(s) Supporting Document(s) CULTURE URINE [facility] spital _CULTURE URINE_$$[id number]$$[id number]$$[id number]$$[id number]$$[id number]$$[id number]$$[id number]$$005912$$132032$$ 565104$$932417$$910062$$700709$$200456$$712305$$720830$$601670$$958013$$967214$$ 259419$$[id number]$$[id number]$$805312$$092595$$768859$$[id number]$$[id number] -- Continued on next page --Patient: TOSIN Rivera Order: [id number] Page 2Culture: CULTURE URINE Status: Final ====$$[id number]$$[id number] DATE/TIME: 01/22/2021 19:05Culture: CULTURE URINE Status: FinalUrine Culture,Comprehensive: P1No growth in 36 - 48 hours.P1 Test performed by: [facility] [place] #: [id number] [address] [id number] [facility] [address]Vrxfbrn Director : Steve Prater MD NPI #:Supervisor Weaving : 01/23/21.0712.XMT.SENT REF ID Date Data Source [id number] 01/18/2021 03:59:00 PM EST [facility] Name Value Range Interpretation Code Description Data Marifer rce(s) Supporting Document(s) URINALYSIS [facility] Hos[facility] albin URINALYSIS SOURCE R [facility] al COLOR brown NORMAL: Yellow [facility] ospital CLARITY clear NORMAL: Clear [facility] spital Specific gravity of Urine by Test strip 1.015 1.001 - 1.030 [facility] pH 8 5 - 9 [facility] Glucose [Mass/volume] in Urine by Test strip NORM NORMAL: Negat xiomara [facility] Bilirubin.total [Presence] in Urine by Test strip NEG NORMAL: Negative [facility] Ketones [Presence] in Urine by Test strip 5 NORMAL: Negative [facility] Protein [Mass/volume] in Urine by Test strip 100 NORMAL: Negat xiomara [facility] Nitrite [Presence] in Urine by Test strip NEG NORMAL: Negative [facility] BLOOD 250 NORMAL: Negative [facility] Leukocyte esterase [Presence] in Urine by Test strip 100 LLUVIA L: Negative [facility] Urobilinogen [Mass/volume] in Urine by Test strip NOR less fidelia n 1.0 mg/dL [facility] MICROSCOPIC See Below [facility] ital WBC 15 - 20 NORMAL: NONE SEEN A [facility] Erythrocytes [#/volume] in Urine by Test strip TNTC NORMAL: NON E SEEN A [facility] ID Date Data Source [id number] 01/18/2021 02:56:00 PM EST [facility] Name Value Range Interpretation Code Description Data Marifer rce(s) Supporting Document(s) CBC W/AUTOMATED DIFF [facility] COMPLETE BLOOD COUNT Leukocytes [#/volume] in Blood by Automated count 5.2 10^3/uL 4.2 - 1 1.0 [facility] Erythrocytes [#/volume] in Blood by Automated count 4.81 10^6/uL 4. 50 - 6.30 [facility] Hemoglobin [Mass/volume] in Blood 14.5 g/dL 14.0 - 16.0 [facility] Hematocrit [Volume Fraction] of Blood by Automated count 42.3 % 4 1.0 - 51.0 [facility] Erythrocyte mean corpuscular volume [Entitic volume] by Auto mated count 87.9 fL 80.0 - 94.0 [facility] Erythrocyte mean corpuscular hemoglobin [Entitic mass] by Automated count 30.1 pg 27.0 - 34.0 [facility] Erythrocyte mean corpuscular hemoglobin concentration [Mass/volume] by Automated count 34.3 g/dL 31.0 - 36.0 [facility] Erythrocyte distribution width [Ratio] by Automated count 12.1 % 11.5 - 14.8 [facility] Platelets [#/volume] in Blood by Automated count 196 10^3/uL 150 - 45 0 [facility] Platelet mean volume [Entitic volume] in Blood by Automated count 11.0 fL 7.4 - 10.4 H [facility] Neutrophils/100 leukocytes in Blood by Automated count 51.1 % 37. 0 - 80.0 [facility] Lymphocytes/100 leukocytes in Blood by Manual count 37.3 % 25.0 - 40.0 [facility] Monocytes/100 leukocytes in Blood by Automated count 8.5 % 3.0 - 8.0 H [facility] Eosinophils/100 leukocytes in Blood by Automated count 2.5 % 0.0 - 7.0 [facility] Basophils/100 leukocytes in Blood by Automated count 0.4 % 0.0 - 2.0 [facility] %IG 0.2 % 0.0 - 0.0 H [facility] Hospit al %NRBC 0.0 % 0.0 - 0.0 [facility] Neutrophils [#/volume] in Blood by Automated count 2.65 10^3/uL 2.00 - 6.90 [facility] Lymphocytes [#/volume] in Blood by Automated count 1.93 10^3/uL 0.60 - 3.40 [facility] Monocytes [#/volume] in Blood by Automated count 0.44 10^3/uL 0.00 - 0.90 [facility] Eosinophils [#/volume] in Blood by Automated count 0.13 10^3/uL 0.00 - 0.70 [facility] Basophils [#/volume] in Blood by Automated count 0.02 10^3/uL 0.00 - 0.20 [facility] #IG 0.01 10^3/uL 0.00 - 0.10 [facility]spital #NRBC 0.00 10^3/uL 0.00 - 0.00 [facility] ospital MANUAL DIFF SEE BELOW [facility] ital Segmented neutrophils/100 leukocytes in Blood by Manual count 44 % 37 - 80 [facility] %LYMPH 39 % 25 - 40 [facility] %MONO 13 % 3 - 8 H [facility] al %EOS 4 % 0 - 7 [facility] al RBC MORPH NOT INDICATED [facility] Ho spital ID Date Data Source [id number] 01/18/2021 02:47:00 PM EST [facility] Name Value Range Interpretation Code Description Data Marifer rce(s) Supporting Document(s) COMPREHENSIVE METABOLIC PANEL [facility] COMPREHENSIVE METABOLIC PANEL Sodium [Moles/volume] in Serum or Plasma 136 mEq/L 134 - 153 [facility] Potassium [Moles/volume] in Serum or Plasma 3.7 mEq/L 3.6 - 5.0 [facility] Chloride [Moles/volume] in Serum or Plasma 103 mEq/L 98 - 107 [facility] Carbon dioxide, total [Moles/volume] in Serum or Plasma 26 MEQ/L 22 - 30 [facility] Glucose [Mass/volume] in Serum or Plasma 117 MG/DL 70 - 99 H [facility] BUN 10 MG/DL 7 - 21 [facility] Creatinine [Mass/volume] in Serum or Plasma 0.7 MG/DL 0.7 - 1.5 [facility] BUN/CREAT 14 8 - 27 [facility] Protein [Mass/volume] in Serum or Plasma 6.8 G/DL 6.3 - 8.2 [facility] Albumin [Mass/volume] in Serum or Plasma 4.3 G/DL 3.9 - 5.0 [facility] Globulin [Mass/volume] in Serum by calculation 2.5 GM/DL 2.4 - 3.2 [facility] A/G RATIO 1.7 0.8 - 2.0 [facility] Calcium [Mass/volume] in Serum or Plasma 9.0 MG/DL 8.4 - 10.2 [facility] Bilirubin.total [Mass/volume] in Serum or Plasma <0.7 MG/DL 0.2 - 1.3 [facility] Alkaline phosphatase [Enzymatic activity/volume] in Serum or Plasma 59 U/L 38 - 126 [facility] Aspartate aminotransferase [Enzymatic activity/volume] in Serum or Plasma 25 U/L 5 - 40 [facility] Alanine aminotransferase [Enzymatic activity/volume] in Seru m or Plasma 29 U/L 7 - 56 [facility] Anion gap 3 in Serum or Plasma 7.0 mmol/L 8.0 - 16.0 L [facility] AGE 30 yrs [facility] NON-AA GFR >60 mL/min [facility] ital AFR AMER GFR >60 mL/min [facility] Ho spital Male GFR In terprentation 20-49 [...] >32 mL/min Normal ID Date Data Source [id number] 01/15/2021 11:53:00 AM EST [facility] [address] [place] [address] PHONE: [phone] FAX: [phone] Name .................. : TOSIN Rivera Acct Number.................. : [id number] ROOM. ................. : TR-1A MR Number ................... : [id number] Stay type ............. : E/R Discharge Date......... ... : 01/13/21 Admit Date ....... .. : 01/13/21 Admit Phys .................... : [facility] Date of ....... : 1990 Family Phys ................... : NON STAFF Phone .................. : [phone] Age ................................ : 30 Film# .................. .:[id number] Sex ................................. : M Unsigned transcriptions are preliminary reports and do not represent a medical or legal document ABDOMEN MULTIPLE VIEW [id number] COMPLETE:01/13/21 13:13 5757 Reason(s): Stent placement MULTIPLE [...] By Krunal Valverde M.D. , 01/15/21 11:53, [facility] Transcribe Initials: GAYATHRI , Transcribe Date: 01/13/21 17:37, Dictation Date: Copy for: HARSHAL HINKLE via fax Copy for: [address] [place] [address] REC DISCHARGED Page 1 of 1 Name Value Range Interpretation Code Description Data Marifer rce(s) Supporting Document(s) ID Date Data Source [id number] 01/14/2021 03:34:00 [place] [address] PHONE: [phone] FAX: [phone] Name .................. : LILIANEBENEZER ADDISONEW Nicole Acct Number.................. : [id number] ROOM. ................. : TR-1A Number ................... : [id number] Stay type ............. : E/R Discharge Date......... ... : 01/13/21 Admit Date ....... .. : 01/13/21 Admit Phys .................... : MERRITT Date of ....... : 1990 Family Phys ................... : NON STAFF Phone .................. : [phone] Age ................................ : 30 Film# .................. .:[id number] Sex ................................. : M Unsigned transcriptions are preliminary reports and do not represent a medical or legal document BLADDER 27635 COMPLETE:01/13/21 12:37 BAW 5746 Reason(s): Stent placed [...] Date: 01/13/21 17:09, Dictation Date: Copy for: HARSHAL THISHILPI via fax Copy for: [address] [facility] REC DISCHARGED Page 1 of 1 Name Value Range Interpretation Code Description Data Marifer rce(s) Supporting Document(s) ID Date Data Source [id number] 01/14/2021 03:27:00 PM [facility] [address] [place] [address] PHONE: [phone] FAX: [phone] Name .................. : TOSIN WONG Nicole Acct Number.................. : [id number] ROOM. ................. : -1A MR Number ................... : [id number] Stay type ............. : E/R Discharge Date......... ... : 01/13/21 Admit Date ....... .. : 01/13/21 Admit Phys .................... : [facility] Date of ....... : 1990 Family Phys ................... : NON STAFF Phone .................. : [phone] Age ................................ : 30 Film# .................. .:[id number] Sex ................................. : M Unsigned transcriptions are preliminary reports and do not represent a medical or legal document RENAL LIMITED [id number] COMPLETE:01/13/21 12:37 BAW 5745 Reason(s): L renal pain s/p stent on RENAL ULTRASOUND: INDICATION: Pain, history of stent [...] Date: 01/13/21 17:04, Dictation Date: Copy for: HARSHAL HINKLE via fax Copy for: [facility] REC DISCHARGED Page 1 of 1 Name Value Range Interpretation Code Description Data Marifer rce(s) Supporting Document(s) ID Date Data Source [id number] 01/13/2021 10:28:00 AM EST [facility] 1 OrderSheet [facility] Emergency Department [address] [place] [address] Phone #: ext- [phone] 01/13/2021 10:28 Patient: MARVIN LEAHY Sex: M : 1990 Age: 30yWEIGHT:94.3 kg (S) HEIGHT:68 inches (S) BMI:31.6ALLERGIES: None, SeafoodCHIEF COMPLAINT: flank painDIAGNOSIS: Renal colicLAB ORDERSOrder Description Priority Entered Acknowledged InitialedUrinalysis (Clean STAT 10:37 01/13/2021 10:39 Jalil,Ervin) Velma Jimenes RN; Velma GARNER Per protocol; Corey Frey-GERARDOBC w Diff STAT 11:16 01/13/2021 11:16 AshtonCorey meraz P.A.- C;CMP STAT 11:16 01/13/2021 11:16 AshtonCorey P.A.-C;Lipase STAT 11:16 01/13/2021 11:17 AshtonCorey P.A.-C;Lactic Acid STAT 11:16 01/13/2021 11:17 AshtonCorey P.A.-C;Culture, Urine STAT 11:16 01/13/2021 11:16 Ashton,(Urine, Clean Corey Spring) P.A.- C;DIAGNOSTIC STUDY ORDERSOrder Description Priority Entered Acknowledged InitialedUS RENAL LIMITED STAT 11:16 01/13/2021 12:11 Ashton,(Oxygen?(No)) Corey Shah(IV?(Yes)) P.A.-C; Reason for Study: L renal pain s/p stent on US BLADDER 11:16 01/13/2021 12:11 Ashton,(Oxygen?(No)) Corey Shah(IV?(Yes)) P.A.-C; Reason for Study: Stent placed in L on Thursday and ahs pain 2 OrderSheet [facility] Emergency Department [address] [place] [address] Phone #: ext- [phone] 01/13/2021 10:28 Patient: [...] ; WandamL (X1) Verbal order per; Corey MartinezAYang- CGENERAL ORDERSOrder Description Priority Entered Acknowledged InitialedNPO 11:16 01/13/2021 11:17 AshtonCorey heredia P.A.-C;Saline Lock 11:16 01/13/2021 11:16 Corey Ashton;[Electronically signed by Alyssa Ashton (16:05 01/13/2021)][Electronically signed by Corey Mace P.A.-C (20:07 01/13/2021)][Electronically locked by Alyssa Ashton (16:05 01/13/2021)] Name Value Range Interpretation Code Description Data Marifer rce(s) Supporting Document(s) ID Date Data Source [id number] 01/13/2021 10:28:00 AM EST [facility] 1 Medication Reconciliation Report [facility] Emergency Department [address] [place] [address] Phone #: ext- [phone] 01/13/2021 10:28 Patient: [...] (500 mg), 2x a day Pregnyl Intramuscular (80296 unit), 3x a week risperiDONE Oral (1 mg), 2x a day traZODone HCl Oral (50 mg), daily Trolamine Salicylate External Xolair Subcutaneous (150 mg) 300mg, 3x a week Zofran Oral 4 mg, 3x a day, prnThe source(s) of the original Home Medication information:Not obtained.The following Medications were given to the patient in the Emergency Department: 2 Medication Reconciliation Report [facility] Emergency Department [address] [place] [address] Phone #: ext- [phone] 01/13/2021 10:28 Patient: [...] days --Dispense 9 tablet. Refills: 0. Substitution permitted.Doctolib [place] [id number]. .Colace 100 mg capsule Take 1 capsule twice a day for 5 days -- Dispense 10 capsule. Refills: 0.Substitution permitted.Doctolib [place] [phone]. . -- Corey Mace P.A.-C Name Value Range Interpretation Code Description Data Marifer rce(s) Supporting Document(s) ID Date Data Source [id number] 01/13/2021 10:28:00 AM EST [facility] 1 Medication Administration Record [facility] Emergency Department [address] [place] [address] Phone #: ext- [phone] 01/13/2021 10:28 Patient: MARVIN LEAHY Sex: M : 1990 Age: 30yWeight: 94.3 kgHeight/Length: 68 inBMI: 31.6ALLERGIES: None, Seafood Date/Time Medication Administered Medication OrderedGiven ZOFRAN [IVP] (ONDANSETRON HCL) Zofran IVP 8 mg11:24 01/13/2021 Dose: 8 mg IVPPAlyssa haskins, Site: #1 left forearmGiven TYLENOL [PO] (APAP) Tylenol 1 g PO X1 dose: 1000 mg11:29 01/13/2021 Dose: 1000 mg Tablets PO (NOW x1)AshtonRobin herediada,Given DILAUDID [IVP] (HYDROMORPHONE Dilaudid IVP 1 mg (HIGH ALERT11:32 01/13/2021 HCL) MEDICATION)Robin Ashtonda, Dose: 1 mg IVP Site: #1 left forearmStart NS [IV] NS IV 500 mL Bolus: : Bolus 63600:56 01/13/2021 Dose: IV Fluids mL (X1)Robin Ashtonda, Rate: 500 mL/hr over 1 hour(s)---- Site: #1 left nmppirwUhiz36:08 01/13/2021Alyssa haskins, Name Value Range Interpretation Code Description Data Marifer rce(s) Supporting Document(s) ID Date Data Source [id number] 01/13/2021 10:28:00 AM EST [facility] 1 General Instructions [facility] Emergency Department [address] [place] [address] Phone #: ext- [phone] 01/13/2021 10:28 Patient: [...] during your visit. Do not drive or operatedangerPlaceword machinery.CONTROLLED SUBSTANCE WARN INGS.GENERAL WARNINGS: Return or contact your physician immediately if your condition worsens orchanges unexpectedly, if not improving as expected, or if other problems arise.Prescription monitor program consulted by me due to Finished rx; appears no open.Prescription Medications:hydrocodone 5 mg- acetaminophen 325 mg tablet Take 1 tablet three times a day for 3 days --Dispense 9 tablet. Refills: 0. Substitution permitted.Doctolib [address] [phone]. .Colace 100 mg capsule Take 1 capsule twice a day for 5 days -- Dispense 10 capsule. Refills: 0.Substitution permitted.Doctolib [address] [place] [phone]. .Follow-up:Return to the emergency department as needed. [facility].Understanding of the discharge instructions verbalized by patient. ADDITIONAL INFORMATION 2 General Instruction s [facility] Emergency Department [address] [place] [address] Phone #: ext- [phone] 01/13/2021 10:28 Patient: MARVIN LEAHYN: [id number] Sex: M : 1990 Age: 30yFlank Pain [...] legs that gets worse 3 General Instructions [facility] Emergency Department [address] [place] [address] Phone #: ext- [phone] 01/13/2021 10:28 Patient: MARVIN LEAHY Sex: M : 1990 Age: 30y Numbness or weakness in a leg [id number] [employer]. [address] [place] [address]. All rights reserved. This information is not [...] rce(s) Supporting Document(s) ID Date Data Source [id number] 01/13/2021 10:28:00 AM EST [facility] 1 Clinical Report - Nurses [facility] Emergency Department [address] [place] [address] Phone #: ext- [phone] 01/13/2021 10:28 Patient: MARVIN LEAHY Sex: M : 1990 Age: 30yTRIAGEArrived by private vehicle. Historian: patient. ( walked in).Acuity: LEVEL 3.Chief Complaint: PAIN WITH URINATION and URINARY RETENTION and HEMATURIA (Left stentplaced 01/11/21 @ [facility] by Dr. Willett).Alert. No acute distress.( Pain with urination.). ( C/O nausea when voiding. 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 SEPSIS SCREEN NEGATIVE. No suspected or confirmedsigns of infection present. --10:56 01/13/21 Ashton, Wanda10:50 01/13/21. BP: 128/81. HR: 71. RR: 22. [...] 2x a day. Pregnyl Intramuscular (Solution Reconstituted 06542 unit), 3x a week. risperiDONE Oral (Tablet Disintegrating 1 mg), 2x a day. traZODone HCl Oral (Tablet 50 mg), daily. Trolamine Salicylate External. Xolair Subcutaneous (Solution Reconstituted 150 mg) 300mg, 3x a week. Zofran Oral 4 mg, 3x a day as needed. --11:00 01/13/21 Alyssa Ashton.AllergiesNone.Seafood. --11:00 01/13/21 Alyssa Ashton.PROBLEMS: 2 Clinical Report - Nurses [facility] Emergency Department [address] [place] [address] Phone #: ext- [phone] 01/13/2021 10:28 Patient: MARVIN LEAHY Sex: M [...] Alyssa Ashton. 3 Clinical Report - Nurses [facility] Emergency Department [address] [place] [address] Phone #: ext- [phone] 01/13/2021 10:28 Patient: MARVIN LEAHY Sex: M [...] reaction and precautions. Verbalizes understanding. --11:34 01/13/21 Ashton, Alyssa 11:29 01/13/2021 Tylenol (APAP) PO Tablets 1000 [...] RR: 16. O2 saturation: 100%. --11:41 01/13/21 [place] DEXMA, [place] [address] Bedside pelvic sonogram performed by digital cartographic technician (bedside ultrasound renal kidney). Rounding: Pain: assessed pain level (6 out of 10). Personal care / toileting: denies toileting needs. Proximity of possessions / care items: call light within easy reach. Plug ins: assured IV pump plugged in; checked status of equipment in use; located all cords, tubes, and lines to prevent fall hazard. --12:13 4 Clinical Report - Nurses [facility] Emergency Department [address] [place] [address] Phone #: ext- [phone] 01/13/2021 10:28 -- Patient: MARVIN LEAHY Sex: M : 1990 Age: 30y 01/13/21 Alyssa Ashton 12:40 01/13/21. BP: 121/79. MAP: 93. HR: 70. RR: 16. O2 saturation: 100%. --12:41 01/13/21 [place] metal polisher Verónica, Tech1 12:56 01/13/2021 Started IV Fluids NS; at 500 mL/hr over 1 hour(s) via site #1 via IV pump. Allergies verified and confirmed 5 rights. IV patency established. IV site checked: no pain, redness, or swelling. IV flushed thoroughly pre- and post- medication administration. Information reviewed with patient. --12:57 01/13/21 Alyssa Ashton 13:53 01/13/21. BP: 122/76. MAP: 91. HR: 69. RR: 16. O2 saturation: 100%. --13:53 01/13/21 [facility], [place] [address] Patient transported to radiology by wheelchair with IV, mask and environmental monitoring technician. --14:01 01/13/21 AshtonAlyssa heredia 14:08 01/13/2021 IV Fluids NS via IV [...] on. Brakes of chair on. --14:33 01/13/21 Alyssa Ashton 14:52 01/13/21. BP: 134/99. MAP: 110. HR: 64. RR: 16. O2 saturation: 100%. Temp: 98.1 F. --14:52 01/13/21 [facility], [place] [address] Reassurance given. The patient is resting quietly. Overall patient status- he states feels better. ( pt on phone with family.). --15:37 01/13/21 Alyssa Ashton. Intake Output Urine output: 350 mL measured, with return of bloody clear urine. Urine: normal smelling. --11:43 01/13/21 Alyssa Ashton Urine output: 300 mL voided with return of bloody urine. --14:52 01/13/21 [facility] TechVerónica ER Tech1.DISPOSITION / DISCHARGE 15:51 01/13/21. BP: 126/84. MAP: 98. HR: 68. RR: 16. O2 saturation: 99%. Temp: 98.1 F. Pain level now: 02/16. --15:52 01/13/21 Velma Jimenes RN 5 Clinical Report - Nurses [facility] Emergency Department [address] [place] [address] Phone #: ext- [phone] 01/13/2021 10:28 Patient: MARVIN LEAHY Sex: M : 1990 Age: 30y 16:00 01/13/2021 Site #1 removed upon discharge. Catheter intact. Manual pressure and bandaid applied. --16:03 01/13/21 Alyssa Ashton Condition at departure: stable. No learning barriers present. Discharge instructions provided and reviewed with the patient. Reviewed medication(s). Prescription(s) sent electronically to pharmacy. Patient verbalized understanding. Written instructions provided in Iranian. The patient was discharged by the physician court assistant. He was discharged home. He left ambulatory and via private vehicle. Patient driving. --16:04 01/13/21 Alyssa Ashton 16:02 01/13/21. BP: 126/84. HR: 68. RR: 16. O2 saturation: 99%. Temp: 98.1 F. Pain level now 10. --16:04 01/13/21 Alyssa Ashton Departure time: 16:04 01/13/2021. --16:04 01/13/21 Alyssa Ashton.Locked/Released at 01/13/2021 16:05 by Alyssa Ashton Name Value Range Interpretation Code Description Data Marifer rce(s) Supporting Document(s) ID Date Data Source [id number] 01/13/2021 10:28:00 AM EST [facility] 1 Clinical Report - Physicians/Mid Levels [facility] Emergency Department [address] [place] [address] Phone #: ext- [phone] 01/13/2021 10:28 Patient: [...] Problems. Additional Surgeries: 2 Clinical Report - Physicians/Mid Levels [facility] Emergency Department [address] [place] [address] Phone #: ext- [phone] 01/13/2021 10:28 Patient: [...] 2x a day. Pregnyl Intramuscular (Solution Reconstituted 62642 unit), 3x a week. risperiDONE Oral (Tablet [...] EKG 3 Clinical Report - Physicians/Mid Levels [facility] Emergency Department [address] [place] [address] Phone #: ext- [phone] 01/13/2021 10:28 ------ Patient: MARVIN LEAHY Sex: M : 1990 Age: 30yKUB: (Abram goetz Neal - 01/13/2021 2:22:14 PMLeft-sided double-J stent and approximately satisfactory position. Exact positioning unable to be preciselylocated on plain film). The X-rays were interpreted by the radiologist.Note - Special Studies: BLADDER USArpita horner Brian - 01/13/2021 1:04:06 PMUnremarkable limited bladder ultrasound. No bladder wall thickening. Catheter is in place within thebladder. Ureteral jets not visualized.RENAL USArpita horner Brian - 01/13/2021 1:01:40 PMNo hydronephrosis. No renal stones. Left ureter not visualized.Laboratory Tests:Abdomen Multiview: (DERRICK: 01/13/2021 13:13) ( MsgRcvd 01/13/2021 19:20) In Progress Exam ABDOMEN MULTIPLE VIEW [address] [facility] [address] PHONE: [phone] FAX: [phone] Name .................. : TOSIN Rivera Acct Number.................. : [id number] ROOM. ................. : TR-1A MR Number ................... : [id number] Stay type ............. : E/R Discharge Date......... ... : 01/13/21 Admit Date ......... : 01/13/21 Admit Phys .................... : [facility] Date of ....... : 1990 Family Phys ................... : NON STAFF Phone .................. : [phone] Age ................................ : 30 Film# .................. .:[id number] Sex ................................. : M Unsigned transcriptions are preliminary reports and do not represent a medical or legal document ABDOMEN MULTIPLE VIEW 40407 COMPLETE:01/13/21 13:13 5757 Reason(s): Stent placement MULTIPLE [...] plain film. Electronically Reviewed and Signed By JACOBY DIGGS [facility] Transcribe Initials: GAYATHRI , Transcribe Date: 01/13/21 17:37, Dictation Date: 4 Clinical Report - Physicians/Mid Levels [facility] Emergency Department [address] [place] [address] Phone #: ext- [phone] 01/13/2021 10:28 Patient: [...] 10.2) 5 Clinical Report - Physicians/Mid Levels [facility] Emergency Department [address] [place] [address] Phone #: ext- [phone] 01/13/2021 10:28 Patient: [...] Male GFR Interprentation 20-49 yrs >60 mL/min Mmrnei20-91 yrs >56 mL/min Normal 60-69 yrs >49 mL/min Normal 70-79yrs>42 mL/min Normal 80 and above >35 mL/min Normal Female GFRInterpretation 20-39 yrs >60 mL/min Normal 40-49 yrs >58 mL/minNormal 50- 59 yrs >51 mL/min Normal 60-69 yrs >45 mL/min Acdptj16-67 yrs >39 mL/min Normal 80 and above >32 mL/min NormalLipase: (DERRICK: 01/13/2021 11:09) ( MsgRcvd 01/13/2021 12:04) Final results Test Result Flag Units (Reference) LIPASE 37 U/L (13 - 60)Lactic Acid: (DERRICK: 01/13/2021 11:09) ( MsgRcvd 01/13/2021 12:14) Final results Test Result Flag Units (Reference) LACTIC ACID 1.6 MMOL/L (0.2 - 2.2)US RENAL LIMITED: (DERRICK: 01/13/2021 11:16) ( MsgRcvd 01/13/2021 17:06) In ProgressUS RENAL LIMITEDReason(s): L renal pain s/p stent on FridaTRANSPORTATION: WC IV? IV?(Yes) O2? Oxygen?(No) Ro Test Result Flag Units (Reference) [facility] [address] [place] [address] PHONE: [phone] FAX: [phone] -- Name .................. : TOSIN Rivera Acct Number.................. : [id number] ROOM. ................. : TR-1A MR Number ................... : [id number] Stay type ............. : E/R Discharge Date......... ... : 01/13/21 Admit Date ......... : 01/13/21 Admit Phys .................... : [facility] Date of ....... : 1990 Family Phys ................... : NON STAFF Phone .................. : [phone] Age ................................ : 30 Film# .................. .:[id number] Sex ................................. : M -- Unsigned transcriptions are preliminary reports and do not represent a medical or legal document RENAL LIMITED [id number] COMPLETE:01/13/21 12:37 BAW 5745 Reason(s): L renal pain s/p stent on Reva -- -- -- -- RENAL ULTRASOUND: -- INDICATION: Pain, history of stent placement, hematuria. -- COMPARISON: CT from 12/27/20. -- -- FINDINGS: Limited renal ultrasound performed. 6 Clinical Report - Physicians/Mid Levels [facility] Emergency Department [address] [place] [address] Phone #: ext- [phone] 01/13/2021 10:28 Patient: [...] -- Electronically Reviewed and Signed By DCTNAME , SIGNDATERIO -- Transcribe Initials: GAYATHRI Transcribe Date: 01/13/21 17:04, Dictation Date: -- -- <<REPDIST>> -- -- -- -- Page 1of 1 --US BLADDER: (DERRICK: 01/13/2021 11:16) ( MsgRcvd 01/13/2021 17:11) In ProgressUS BLADDERReason(s): Stent placed in L on Thursday and s painTRANSPORTATION: WC IV? IV?(Yes) O2? Oxygen?(No) Ro Test Result Flag Units (Reference) [place] [address] PHONE: [phone] FAX: [phone] -- Name .................. : TOSIN Rivera Acct Number.................. : [id number] ROOM. ................. : TR-1A MR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 Test strip 1.015 1.001 - 1.030 [facility] pH 7 5 - 9 [facility] Glucose [Mass/volume] in Urine by Test strip NORM [facility] Bilirubin.total [Presence] in Urine by Test strip NEG NORMAL: Negative [facility] Ketones [Presence] in Urine by Test strip NEG NORMAL: Negative [facility] Protein [Mass/volume] in Urine by Test strip NEG [facility]AL[facility] Nitrite [Presence] in Urine by Test strip NEG NORMAL: Negative [facility] BLOOD 150 NORMAL: Negative [facility] Leukocyte esterase [Presence] in Urine by Test strip NEG LLUVIA L: Negative [facility] Urobilinogen [Mass/volume] in Urine by Test strip NOR less fidelia n 1.0 mg/dL [facility] MICROSCOPIC See Below [facility] WBC 5 - 7 NORMAL: NONE SEEN [facility] Erythrocytes [#/volume] in Urine by Test strip 40 - 50 NORMAL: NON E SEEN A [facility] EPITHELIAL FEW NORMAL: NONE SEEN [facility] Bacteria [Presence] in Urine sediment by Light microscopy Tr du NORMAL: NONE SEEN [facility] Crystals [type] in Urine sediment by Light microscopy See Below [facility] CALCIUM OX Trace NORMAL: NONE SEEN [facility] ID Date Data Source [id number] 12/20/2020 11:29:00 AM EST [facility] 1 OrderSheet [facility] Emergency Department [address] [place] [address] Phone #: ext- [phone] 12/20/2020 11:28 Patient: [...] 14:28 12/20/2020 14:34 Harry(Urine, Clean Corey Garza RNCatsandeep) P.A.-C;DIAGNOSTIC STUDY ORDERSOrder Description Priority Entered Acknowledged InitialedMEDICATION/IV/DRIP/FLUID ORDERSOrder Description Priority Entered Acknowledged InitialedNS IV : Bolus 1000 12:30 12/20/2020 12:57 TerrymL, then 100 mL/hr Corey Garza RN P.A.-C;Zofran IVP 4 mg 12:30 12/20/2020 12:57 Harry Garza RN P.A.-C;Tylenol PO 1000 12:30 12/20/2020 12:57 Terrellzairesusan Garza RN P.A.-C;Benadryl 25 mg IVP 12:30 12/20/2020 12:58 Harry 2 OrderSheet [facility] Emergency Department [address] [place] [address] Phone #: ext- [phone] 12/20/2020 11:28 Patient: [...] rce(s) Supporting Document(s) ID Date Data Source [id number] 12/20/2020 11:29:00 AM EST [facility] 1 Medication Reconciliation Report [facility] Emergency Department [address] [place] [address] Phone #: ext- [phone] 12/20/2020 11:28 Patient: [...] 3x a week 2 Medication Reconciliation Report [facility] Emergency Department [address] [place] [address] Phone #: ext- [phone] 12/20/2020 11:28 Patient: [...] rce(s) Supporting Document(s) ID Date Data Source [id number] 12/20/2020 11:29:00 AM EST [facility] 1 Medication Administration Record [facility] Emergency Department [address] [place] [address] Phone #: ext- [phone] 12/20/2020 11:28 Patient: MARVIN LEAHY Sex: M : 1990 Age: 30yWeight: 90.7 kgHeight/Length: 68 inBMI: 30.4ALLERGIES: Seafood Date/Time Medication Administered Medication OrderedStart NS [IV] NS IV : Bolus 1000 mL, then 28034:57 12/20/2020 Dose: IV Fluids mL/Edilberto Garza RN Rate: 100 mL/hr over 5 hour(s)---- Bolus: 1000 mL over 1 hour(s)Stop Dispensed: 1000 mL bag14:51 12/20/2020 Site: #1 left Augustin Elizabeth ZOFRAN [IVP] (ONDANSETRON HCL) Zofran IVP 4 mg12:57 12/20/2020 Dose: 4 mg IVTanya Garza RN Site: #1 left handClaire en TYLENOL [PO] (APAP) Tylenol PO 1000 mg12:57 12/20/2020 Dose: 1000 mg Tablets Augustin Nobles BENADRYL [IVP] (DIPHENHYDRAMINE Benadryl 25 mg IVP X1 dose: 2512:58 12/20/2020 HCL) mg (NOW x1)Harry Garza RN Dose: 25 mg IVP Site: #1 left hand Name Value Range Interpretation Code Description Data Marifer rce(s) Supporting Document(s) ID Date Data Source [id number] 12/20/2020 11:29:00 AM EST [facility] 1 General Instructions [facility] Emergency Department [address] [place] [address] Phone #: ext- [phone] 12/20/2020 11:28 Patient: [...] instructions verbalized by patient. 2 General Instructions [facility] Emergency Department [address] [place] [address] Phone #: ext- [phone] 12/20/2020 11:28 Patient: [...] break up the stone. 3 General Instructions [facility] Emergency Department [address] [place] [address] Phone #: ext- [phone] 12/20/2020 11:28 Patient: [...] barley, and beans. Phytates 4 General Instructions [facility] Emergency Department [address] [place] [address] Phone #: ext- [phone] 12/20/2020 11:28 Patient: [...] new findings that may affect your care.Call [phone] [phone] if you have any of these: Weakness, dizziness, or faintingWhen to seek medical adviceCall your healthcare provider right away if any of these occur: Pain that is not controlled by the medicine given 5 General Instructions [facility] Emergency Department [address] [place] [address] Phone #: ext- [phone] 12/20/2020 11:28 Patient: MARVIN LEAHY Sex: M [...] for 8 hours and increasing bladder pressure [employer]. [address] [place] [address], [place] [address]. All rights reserved. This information is not [...] of cystitisis an infection. 6 General Instructions [facility] Emergency Department [address] [place] [address] Phone #: ext- [phone] 12/20/2020 11:28 Patient: [...] of: An enlarged prostate 7 General Instructions [facility] Emergency Department [address] [place] [address] Phone #: ext- [phone] 12/20/2020 11:28 Patient: [...] the foreskin when cleaning. 8 General Instructions [facility] Emergency Department [address] [place] [address] Phone #: ext- [phone] 12/20/2020 11:28 Patient: [...] any findings that may affect your care.Call [phone] [phone] if any of these occur: Trouble breathing [...] to keep medicine down 9 General Instructions [facility] Emergency Department [address] [place] [address] Phone #: txr- [phone] 12/20/2020 11:28 Patient: MARVIN LEAHY Sex: M : 1990 Age: 30y Weakness or dizziness [id number] [employer]. [address] [place] [address]. All rights reserved. This information is not [...] rce(s) Supporting Document(s) ID Date Data Source [id number] 12/20/2020 11:29:00 AM EST [facility] 1 Clinical Report - Nurses [facility] Emergency Department [address] [place] [address] Phone #: ext- [phone] 12/20/2020 11:28 Patient: MARVIN LEAHY Sex: M : 1990 Age: 30yTRIAGEArrived by EMS. Historian: patient. ( pt seen [facility] with dx kidney stone , this morning on [place] ptwas found on floor rocking in pain, EMS started saline lock and gave toradol 15 mg and zofran 4 mg IVwith some relief).Triage time: 11:31 12/20/2020. Acuity: LEVEL 3.Chief Complaint: ABDOMINAL PAIN.11:49 12/20/20.This started today. 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 SEPSIS SCREEN NEGATIVE. [...] Garza RN 2 Clinical Report - Nurses [facility] Emergency Department [address] [place] [address] Phone #: ext- [phone] 12/20/2020 11:28 Patient: MARVIN LEAHY Sex: M : 1990 Age: 30y Cefdinir Oral 300 mg, 2x a day, started yesterday. --11:44 12/20/20 Harry Garza RN Zofran Oral 4 mg, 3x a day as needed. --11:45 12/20/20 Harry Garza RN.AllergiesSeafood. --11:43 12/20/20 Harry Garza RN.ADDITIONAL SURGERIES:None. --11:45 12/20/20 Harry Garza RN.Gvgbeqy69:49 12/20/20.SOCIAL HX: Never smoker. Alcohol use. (rarely). [...] peptic ulcer disease. --11:52 12/20/20 Harry Garza RN.Xgnkutmrsowtl51:49 12/20/20. Identification and allergy band on patient. To room. --11:49 12/20/20 Harry Garza RN.PHYSICAL ASSESSMENT 3 Clinical Report - Nurses [facility] Emergency Department [address] [place] [address] Phone #: ext- [phone] 12/20/2020 11:28 Patient: MARVIN LEAHY Sex: M [...] 12/20/20. Cardiac rhythm: normal sinus rhythm; (1130). monitoring and evaluation advisor, NIBP monitor and pulse oximeter placed on patient; school bus monitor- Lead II; monitor alarms on; monitor [...] RR: 16. O2 saturation: 96%. --12:03 12/20/20 [place] metal polisher, Verónica, Tech1 12:57 12/20/2020 Started bag #1 1000 [...] Garza RN 4 Clinical Report - Nurses [facility] Emergency Department [address] [place] [address] Phone #: [phone] ext- [phone] 12/20/2020 11:28 Patient: MARVIN LEAHY Sex: M [...] Patient verbalized understanding. Written instructions provided in Iranian. The patient was discharged by the physician court assistant. He was discharged home. He left ambulatory and via private vehicle. 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 --15:02 12/20/20 Harry Garza RN 14:45 12/20/20. BP: 121/52. MAP: 75. HR: 78. RR: 18. O2 saturation: 98%. Temp: 98.1 F (temporal). Pain level now: 02/16. --15:02 12/20/20 Harry Garza RN.Locked/Released at 09/2021 16:56 by Harry Garza RN Name Value Range Interpretation Code Description Data Marifer rce(s) Supporting Document(s) ID Date Data Source [id number] 12/20/2020 11:29:00 AM EST [facility] 1 Clinical Report - Physicians/Mid Levels [facility] Emergency Department [address] [place] [address] Phone #: ext- [phone] 12/20/2020 11:28 Patient: MARVIN LEAHY Sex: M [...] dx kidney stone , this morning on [place] pt was found on floor rocking in [...] yesterday. 2 Clinical Report - Physicians/Mid Levels [facility] Emergency Department [address] [place] [address] Phone #: ext- [phone] 12/20/2020 11:28 - Patient: [id number] Sex: M : 1990 Age: 30y Flomax [...] Tests: 3 Clinical Report - Physicians/Mid Levels [facility] Emergency Department [address] [place] [address] Phone #: ext- [phone] 12/20/2020 11:28 Patient: MARVIN LEAHY Sex: M [...] 3.2) 4 Clinical Report - Physicians/Mid Levels [facility] Emergency Department [address] [place] [address] Phone #: ext- [phone] 12/20/2020 11:28 Patient: [...] mL/min Normal Lipase: (DERRICK: 12/20/2020 12:50) ( MsgRcvd 12/20/2020 13:22) Final results Test Result Flag Units (Reference) LIPASE 29 U/L (13 - 60) Urinalysis: (DERRICK: 12/20/2020 12:50) ( MsgRcvd 12/20/2020 13:40) Final results Test Result Flag [...] complaints. 5 Clinical Report - Physicians/Mid Levels [facility] Emergency Department [address] [place] [address] Phone #: ext- [phone] 12/20/2020 11:28 Patient: [...] there, thus no urology coverage currently.Will call [facility] and consult. Called urology office and pending call back/consult.14:04 12/20/20. Noted that pt is lying peacfully in bed in nad. Pending call back.Called urology (Dr. Marrufo). Discussed pt. Pt has no fever, has appropriate meds rx'ed, and has no 6 Clinical Report - Physicians/Mid Levels [facility] Emergency Department [address] [place] [address] Phone #: ext- [phone] 12/20/2020 11:28 Patient: MARVIN LEAHY Sex: M [...] arise. 7 Clinical Report - Physicians/Mid Levels [facility] Emergency Department [address] [place] [address] Phone #: ext- [phone] 12/20/2020 11:28 Patient: [...] rce(s) Supporting Document(s) ID Date Data Source [id number] 12/25/2020 06:41:00 AM [facility] Name Value Range Interpretation Code Description Data Marifer rce(s) Supporting Document(s) CULTURE URINE [facility] spital _CULTURE URINE_$$[id number]$$[id number]$$141034$$[id number]$$632969$$090583$$199997$$840922$$197119$$ 299663$$253704$$774410$$000868$$279775$$312855$$782912$$909665$$695915$$577063$$ 158403$$392690$$427651$$026622$$826191$$500515$$538512$$[id number] -- Continued on next page --Patient: TOSIN WONG N Order: Page 2Culture: CULTURE URINE Status: Final ==== -- Continued on next page --Patient: TOSIN WONG N Order: Page 2Culture: CULTURE URINE Status: Prelim =====$$[id number]$$[id number] DATE/TIME: 12/24/2020 16:06Culture: CULTURE URINE Status: FinalUrine Culture,Comprehensive: P1No growth in 36 - 48 hours. Previous result entered on 12/23/2020 03:00 ET No growth after 18-24 hours.P1 [facility]: [id number] [address] [id number] [facility] [address]Medical Director : Steve Prater MD NPI #:Lab Di fiorella : 12/24/20.0618.XMT.SENT REF 12/25/20.0641.XMT.SENT REF ID Date Data Source [id number] 12/20/2020 01:39:00 PM EST [facility] Name Value Range Interpretation Code Description Data Marifer rce(s) Supporting Document(s) URINALYSIS [facility] albin URINALYSIS SOURCE R [facility] al COLOR yellow NORMAL: Yellow [facility] CLARITY clear NORMAL: Clear [facility] Specific gravity of Urine by Test strip 1.015 1.001 - 1.030 [facility] pH 8 5 - 9 [facility] Glucose [Mass/volume] in Urine by Test strip NORM NORMAL: Negat [facility] Bilirubin.total [Presence] in Urine by Test strip NEG NORMAL: Negative [facility] Ketones [Presence] in Urine by Test strip NEG NORMAL: Negative [facility] Protein [Mass/volume] in Urine by Test strip NEG NORMAL: Negat [facility] Nitrite [Presence] in Urine by Test strip NEG NORMAL: Negative [facility] BLOOD 250 NORMAL: Negative A [facility] Leukocyte esterase [Presence] in Urine by Test strip NEG LLUVIA L: Negative [facility] Urobilinogen [Mass/volume] in Urine by Test strip NOR less fidelia n 1.0 mg/dL [facility] MICROSCOPIC See Below [facility] ital WBC 1 - 3 NORMAL: NONE SEEN [facility] Erythrocytes [#/volume] in Urine by Test strip 10 - 15 NORMAL: NON E SEEN A [facility] EPITHELIAL FEW NORMAL: NONE SEEN [facility] Bacteria [Presence] in Urine sediment by Light microscopy Tr du NORMAL: NONE SEEN [facility] Crystals [type] in Urine sediment by Light microscopy See Below [facility] CALCIUM OX 2+ NORMAL: NONE SEEN A [facility] ID Date Data Source [id number] 12/20/2020 01:39:00 PM EST [facility] Name Value Range Interpretation Code Description Data Marifer rce(s) Supporting Document(s) COMPREHENSIVE METABOLIC PANEL [facility] COMPREHENSIVE METABOLIC PANEL Sodium [Moles/volume] in Serum or Plasma 139 mEq/L 134 - 153 [facility] Potassium [Moles/volume] in Serum or Plasma 3.8 mEq/L 3.6 - 5.0 [facility] Chloride [Moles/volume] in Serum or Plasma 102 mEq/L 98 - 107 [facility] Carbon dioxide, total [Moles/volume] in Serum or Plasma 28 MEQ/L 22 - 30 [facility] Glucose [Mass/volume] in Serum or Plasma 84 MG/DL 70 - 99 [facility] BUN 5 MG/DL 7 - 21 L [facility] al Creatinine [Mass/volume] in Serum or Plasma 1.0 MG/DL 0.7 - 1.5 [facility] BUN/CREAT 5 8 - 27 L [facility] Protein [Mass/volume] in Serum or Plasma 7.4 G/DL 6.3 - 8.2 [facility] Albumin [Mass/volume] in Serum or Plasma 4.4 G/DL 3.9 - 5.0 [facility] Globulin [Mass/volume] in Serum by calculation 3.0 GM/DL 2.4 - 3.2 [facility] A/G RATIO 1.5 0.8 - 2.0 [facility] Calcium [Mass/volume] in Serum or Plasma 9.7 MG/DL 8.4 - 10.2 [facility] Bilirubin.total [Mass/volume] in Serum or Plasma <0.7 MG/DL 0.2 - 1.3 [facility] Alkaline phosphatase [Enzymatic activity/volume] in Serum or Plasma 70 U/L 38 - 126 [facility] Aspartate aminotransferase [Enzymatic activity/volume] in Serum or Plasma 27 U/L 5 - 40 [facility] Alanine aminotransferase [Enzymatic activity/volume] in Seru m or Plasma 32 U/L 7 - 56 [facility] Anion gap 3 in Serum or Plasma 9.0 mmol/L 8.0 - 16.0 [facility] AGE 30 yrs [facility] NON-AA GFR >60 mL/min [facility] ital AFR AMER GFR >60 mL/min [facility] spital Male GFR In terprentation 20-49 [...] >32 mL/min Normal ID Date Data Source [id number] 12/20/2020 01:22:00 PM [facility] Name Value Range Interpretation Code Description Data Marifer rce(s) Supporting Document(s) Lipase [Enzymatic activity/volume] in Serum or Plasma 29 U/L 13 - 60 [facility] ID Date Data Source [id number] 12/20/2020 01:18:00 PM [facility] Name Value Range Interpretation Code Description Data Marifer rce(s) Supporting Document(s) CBC W/AUTOMATED DIFF [facility] COMPLETE BLOOD COUNT Leukocytes [#/volume] in Blood by Automated count 5.5 10^3/uL 4.2 - 1 1.0 [facility] Erythrocytes [#/volume] in Blood by Automated count 4.70 10^6/uL 4. 50 - 6.30 [facility] Hemoglobin [Mass/volume] in Blood 13.9 g/dL 14.0 - 16.0 L [facility] Hematocrit [Volume Fraction] of Blood by Automated count 42.4 % 4 1.0 - 51.0 [facility] Erythrocyte mean corpuscular volume [Entitic volume] by Auto mated count 90.2 fL 80.0 - 94.0 [facility] Erythrocyte mean corpuscular hemoglobin [Entitic mass] by Automated count 29.6 pg 27.0 - 34.0 [facility] Erythrocyte mean corpuscular hemoglobin concentration [Mass/volume] by Automated count 32.8 g/dL 31.0 - 36.0 [facility] Erythrocyte distribution width [Ratio] by Automated count 12.4 % 11.5 - 14.8 [facility] Platelets [#/volume] in Blood by Automated count 192 10^3/uL 150 - 45 0 [facility] Platelet mean volume [Entitic volume] in Blood by Automated count 11.0 fL 7.4 - 10.4 H [facility] Neutrophils/100 leukocytes in Blood by Automated count 48.0 % 37. 0 - 80.0 [facility] Lymphocytes/100 leukocytes in Blood by Manual count 40.8 % 25.0 - 40.0 H [facility] Monocytes/100 leukocytes in Blood by Automated count 8.4 % 3.0 - 8.0 H [facility] Eosinophils/100 leukocytes in Blood by Automated count 2.2 % 0.0 - 7.0 [facility] Basophils/100 leukocytes in Blood by Automated count 0.4 % 0.0 - 2.0 [facility] %IG 0.2 % 0.0 - 0.0 H [facility] %NRBC 0.0 % 0.0 - 0.0 [facility] al Neutrophils [#/volume] in Blood by Automated count 2.62 10^3/uL 2.00 - 6.90 [facility] Lymphocytes [#/volume] in Blood by Automated count 2.23 10^3/uL 0.60 - 3.40 [facility] Monocytes [#/volume] in Blood by Automated count 0.46 10^3/uL 0.00 - 0.90 [facility] Eosinophils [#/volume] in Blood by Automated count 0.12 10^3/uL 0.00 - 0.70 [facility] Basophils [#/volume] in Blood by Automated count 0.02 10^3/uL 0.00 - 0.20 [facility] #IG 0.01 10^3/uL 0.00 - 0.10 [facility] #NRBC 0.00 10^3/uL 0.00 - 0.00 [facility] MANUAL DIFF SEE BELOW [facility] ital Segmented neutrophils/100 leukocytes in Blood by Manual count 71 % 37 - 80 [facility] %LYMPH 24 % 25 - 40 L [facility] %MONO 3 % 3 - 8 [facility] %EOS 2 % 0 - 7 [facility] RBC MORPH SEE BELOW [facility] Anisocytosis [Presence] in Blood by Light microscopy 1+ LLUVIA L: NONE SEEN A [facility] { SICKLE CELL (NORMAL: NONE SEEN ) Platelet adequacy [Presence] in Blood by Light microscopy NORMAL NORMAL: NORMAL [facility] COMMENT: ID Date Data Source [id number] 12/19/2020 02:54:00 PM EST [facility] [address] [facility] [address] PHONE: [phone] FAX: [phone] Name .................. : TOSIN Rivera Acct Number.................. : [id number] ROOM. ................. : -02 MR Number ................... : [id number] Stay type ............. : E/R Discharge Date......... ... : Admit Date ......... : 12/19/20 Admit Phys .................... : SAMANTHA OLVERA Date of ....... : 1990 Family Phys ................... : NON STAFF Phone .................. : [phone] Age ................................ : 30 Film# .................. .:[id number] Sex ................................. : M Unsigned transcriptions are preliminary reports and do not represent a medical or legal document CT ABD & PELV W/O ORAL W/[place] [address] COMPLETE:12/19/20 11:02 [facility] 3982 Reason(s): sudden left flank pain CT [...] 13:05, Dictation Date: Page 1 of 2 [place] [address] PHONE: [phone] FAX: [phone] Name .................. : TOSIN Rivera Acct Number.................. : [id number] ROOM. ................. : TR-02 MR Number ................... : [id number] Stay type ............. : E/R Discharge Date......... ... : Admit Date ......... : 12/19/20 Admit Phys .................... : SAMANTHA OLVERA Date of ....... : 1990 Family Phys ................... : NON STAFF Phone .................. : [phone] Age ................................ : 30 Film# .................. .:[id number] Sex ................................. : M Unsigned transcriptions are preliminary reports and do not represent a medical or legal document CT ABD & PELV W/O ORAL W/[place] [address] COMPLETE:12/19/20 11:02 [facility] 3982 Reason(s): sudden left flank pain Copy for: 010 EMERGENCY SRV Copy for: EMERGENCY DEPT via modem Copy for: 710 MED REC Page 2 of 2 Name Value Range Interpretation Code Description Data Marifer rce(s) Supporting Document(s) ID Date Data Source [id number] 12/19/2020 09:11:00 AM EST [facility] 1 OrderSheet [facility] Emergency Department [address] [place] [address] Phone #: ext- [phone] 12/19/2020 09:10 Patient: MARVIN LEAHY Sex: M : 1990 Age: 30yWEIGHT:90.7 kg (S) HEIGHT:68 inches (S) BMI:30.4ALLERGIES: SeafoodCHIEF COMPLAINT: flank painDIAGNOSIS: Ureteric stone, Renal colicLAB ORDERSOrder Description Priority Entered Acknowledged InitialedCBC w Diff STAT 09:41 12/19/2020 09:51 Samantha Saenz Riccardo Jessica R.N. M.D.;CMP STAT 09:41 12/19/2020 09:51 Samantha Saenz Riccardo Jessica R.N. M.D.;Lipase STAT 09:41 12/19/2020 09:51 Samantha Saenz Riccardo Jessica R.N. M.Xiomara;Urinalysis (Clean STAT 09:41 12/19/2020 09:51 Letty,Catch) Evelio Luna R.NYang M.Xiomara;Lactic Acid STAT 09:41 12/19/2020 09:51 Letty, Turrin, Evelio Jaramillossica R.N. M.D.;DIAGNOSTIC STUDY ORDERSOrder Description Priority Entered Acknowledged InitialedCT ABD PEL W/O STAT 09:41 12/19/2020 10:09 Letty,Oral W/O IV Turrin, Evelio Aster R.N.Contrast M.D.;(Oxygen?(No))(IV?(Yes)) Reason for Study: sudden left flank painMEDICATION/IV/DRIP/FLUID ORDERSOrder Description Priority Entered Acknowledged InitialedToradol 15 mg IVP 09:41 12/19/2020 09:52 Letty,X1 dose: 15 mg Turrin, Evelio Aster R.N.(NOW x1) Bharat;Zofran 4 mg IVP X 1 09:41 12/19/2020 09:51 Letty, 2 OrderSheet [facility] Emergency Department [address] [place] [address] Phone #: ext- [phone] 12/19/2020 09:10 Patient: MARVIN LEAHY Sex: M : 1990 Age: 30ydose: 4 mg (NOW Turrin, Evelio Aster R.N.x1) Bharat;Ativan IVP 2 mg 09:41 12/19/2020 09:51 Letty,(HIGH ALERT Turrin, Evelio Aster R.N.MEDICATION) Bharat;NS IV : Bolus 250 09:42 12/19/2020 10:05 Letty,mL, then 100 mL/hr Yulianarin, Evelio Aster R.N. M.DYang;Flomax PO 0.4 mg 10:55 12/19/2020 11:28 Letty,(NOW x1, Do not Evelio Luna R.N.crush or chew) Bharat;cefTRIAXone 10:56 12/19/2020 11:28 Letty,(1gm/50ml) IVPB Evelio Luna R.N.1000 mg with M.DYang;Dextrose 50 mlspike bag (D5W)GENERAL ORDERSOrder Description Priority Entered Acknowledged InitialedNPO 09:41 12/19/2020 09:51 Samantha Saenz Riccardo Jessica R.N. M.D.;Saline Lock :12/19/2020 09:51 Samantha Saenz Riccardo Jessica R.N. M.D.;[Electronically signed by Aster Saenz R.N. (13:41 12/19/2020)][Electronically signed by Evelio Luna M.D. (13:49 12/19/2020)][Electronically locked by Aster Saenz R.N. (13:41 12/19/2020)] Name Value Range Interpretation Code Description Data Marifer rce(s) Supporting Document(s) ID Date Data Source [id number] 12/19/2020 09:11:00 AM EST [facility] 1 Medication Reconciliation Report [facility] Emergency Department [address] [place] [address] Phone #: ext- [phone] 12/19/2020 09:10 Patient: [...] the Emergency Department: 2 Medication Reconciliation Report [facility] Emergency Department [address] [place] [address] Phone #: ext- [phone] 12/19/2020 09:10 Patient: [...] 12 tablet. Refills: 0. Substitution permitted.Pharmacy - [place] [id number] ; [place] [address]. .Flomax 0.4 mg capsule Take 1 capsule once a day for 7 days -- Dispense 7 capsule. Refills: 0.Substitution permitted.[facility] [address] [place] [place] [address] [address] ; [place] [address]. .cefdinir 300 mg capsule Take 1 capsule twice a day for 7 days -- Dispense 14 capsule. Refills: 0.Substitution permitted.[facility] [address] [address] [address] ; [place] [address]. .Zofran 4 mg tablet Take 1 tablet three times a day as needed for 4 days -- Dispense 12 tablet. Refills: 0.Substitution permitted.[facility] [address] [place] [address] [address] ; [place] [address]. . -- Evelio Luna M.D. Name Value Range Interpretation Code Description Data Marifer rce(s) Supporting Document(s) ID Date Data Source [id number] 12/19/2020 09:11:00 AM EST [facility] 1 Medication Administration Record [facility] Emergency Department [address] [place] [address] Phone #: [phone] udd- [phone] 12/19/2020 09:10 Patient: MARVIN LEAHY Sex: M [...] NS IV : Bolus 250 mL, then 99778:05 12/19/2020 Dose: IV Fluids mL/hrAster Saenz R.N. [...] rce(s) Supporting Document(s) ID Date Data Source [id number] 12/19/2020 09:11:00 AM EST [facility] 1 General Instructions [facility] Emergency Department [address] [place] [address] Phone #: ext- [phone] 12/19/2020 09:10 Patient: [...] 0. Substitution permi tted. 2 General Instructions [facility] Emergency Department [address] [place] [address] Phone #: ext- [phone] 12/19/2020 09:10 Patient: MARVIN LEAHY Sex: M : 1990 Age: 30yPharmacy - [facility] [phone] ; [place] [address]. .Flomax 0.4 mg capsule Take 1 capsule once a day for 7 days -- Dispense 7 capsule. Refills: 0.Substitution permitted.[facility] [place] [id number] ; [place] [address]. .cefdinir 300 mg capsule Take 1 capsule twice a day for 7 days -- Dispense 14 capsule. Refills: 0.Substitution permitted.[facility] [id number] ; [place] [address]. .Zofran 4 mg tablet Take 1 tablet three times a day as needed for 4 days -- Dispense 12 tablet. Refills: 0.Substitution permitted.Pharmacy - [facility] [address] ; [place] [address]. .Follow-up:Return to the emergency department as needed. Follow up with a erp consultant and urologist in three dayseven if well. [...] INFORMATIONKidney Stone with Pain 3 General Instructions [facility] Emergency Department [address] [place] [address] Phone #: ext- [phone] 12/19/2020 09:10 Patient: MARVIN LEAHY Sex: M [...] Various [place] [address] General Instructions [facility] Emergency Department [address] [place] [address] Phone #: ext- [phone] 12/19/2020 0 9:10 [...] kidney stones. Eat a 5 General Instructions [facility] Emergency Department [address] [place] [address] Phone #: ext- [phone] 12/19/2020 09:10 Patient: [...] new findings that may affect your care.Call [phone] [phone] if you have any of these: Weakness, [...] lots of blood clots 6 General Instructions [facility] Emergency Department [address] [place] [address] Phone #: ext- [phone] 12/19/2020 09:10 Patient: MARVIN LEAHY Sex: M : 1990 Age: 30y Foul-smelling or cloudy urine Unable to pass urine for 8 hours and increasing bladder pressure [employer]. [address] [place] [address], [place] [address]. All rights reserved. This information is not [...] rce(s) Supporting Document(s) ID Date Data Source [id number] 12/19/2020 09:11:00 AM EST [facility] 1 Clinical Report - Nurses [facility] Emergency Department [address] [place] [address] Phone #: ext- [phone] 12/19/2020 09:10 Patient: MARVIN LEAHY Sex: M : 1990 Age: 30yTRIAGEArrived by EMS. Historian: patient.Chief Complaint: (left flank/ LLQ/ left groin pain).Onset. (0200). No fever, testicular pain or inguinal swelling. 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 Medications given- ondansetron (fentanyl 50 [...] Saenz R.N. 2 Clinical Report - Nurses [facility] Emergency Department [address] [place] [address] Phone #: ext- [phone] 12/19/2020 09:10 Patient: [...] placed in 3 Clinical Report - Nurses [facility] Emergency Department [address] [place] [address] Phone #: ext- [phone] 12/19/2020 09:10 Patient: MARVIN LEAHY Sex: M : 1990 Age: 30ylowest position. Brakes of bed on. Patient ready for evaluation. --09:17 12/19/20 Aster Saenz R.N.09:30 12/19/20. BP: 129/95. MAP: 106. HR: 69. RR: 16. O2 saturation: 96%. --09:34 12/19/20 [facility] Wcim607[facility]47 12/19/2020 Toradol (Ketorolac Tromethamine) IVP 15 mg [...] 83. HR: 82. RR: 14. --09:59 12/19/20 [facility] Xltd343:05 12/19/2020 Started bag #1 250 mL IV [...] Patient returned from CT by stretcher with environmental monitoring technician. --10:50 12/19/20 Aster Saenz R.N.11:00 12/19/20. BP: 116/50. MAP: 72. HR: 96. RR: 14. O2 saturation: 100%. --11:00 12/19/20 [facility] Lwmw917:28 12/19/2020 Flomax (Tamsulosin HCl) PO Capsules 0.4 [...] medication administration. 4 Clinical Report - Nurses [facility] Emergency Depar tment [address] [place] [address] Phone #: ext- [phone] 12/19/2020 09:10 Patient: MARVIN LEAHY Sex: M : 1990 Age: 30y Information reviewed with patient. Verbalizes understanding. --11:28 12/19/20 Aster Saenz R.N. 11:58 12/19/20. BP: 106/50. MAP: 68. HR: 72. RR: 16. O2 saturation: 99%. --11:59 12/19/20 [place] metal polisher, Verónica, ER Tech1 12:58 12/19/20. BP: 110/94. MAP: 99. HR: 82. RR: 16. O2 saturation: 100%. --12:58 12/19/20 [place] metal polisher, Verónica, ER Tech1 12:00 12/19/2020 CEFTRIAXONE (1GM/50ML) IVPB via [...] 100%. Temp: 98 F. Pain level now: 0. --13:23 12/19/20 Aster Saenz R.N. Departure time: [...] Patient verbalized understanding. Written instructions provided in Iranian. --13:41 12/19/20 Aster Saenz R.N.Locked/Released at 12/19/2020 13:41 by Aster Saenz R.N. 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 No recent travel. Similar symptoms previously. None. [...] day. 2 Clinical Report - Physicians/Mid Levels [facility] Emergency Department [address] [place] [address] Phone #: ext- [phone] 12/19/2020 09:10 Patient: MARVIN LEAHY Sex: M [...] results 3 Clinical Report - Physicians/Mid Levels [facility] Emergency Department [address] [place] [address] Phone #: ext- [phone] 12/19/2020 09:10 Patient: [...] Male GFR Interprentation 20-49 yrs >60 mL/min Upgcvm73-84 yrs >56 mL/min Normal 60-69 yrs >49 mL/min Normal 70-79yrs>42 mL/min Normal 80 and above >35 mL/min Normal Female GFRInterpretation 20-39 yrs >60 mL/min Normal 40-49 yrs >58 mL/min 4 Clinical Report - Physicians/Mid Levels [facility] Emergency Department [address] [place] [address] Phone #: ext- [phone] 12/19/2020 09:10 Patient: MARVIN LEAHY Sex: M : 1990 Age: 30y Normal 50-59 yrs >51 mL/min Normal 60-69 yrs >45 mL/min Normal 70-79 yrs >39 mL/min Normal 80 and above >32 mL/min Normal Lipase: (DERRICK: 12/19/2020 09:50) ( MsgRcvd 12/19/2020 10:18) Final results Test Result Flag Units (Reference) LIPASE 25 U/L (13 - 60) Urinalysis: (DERRICK: 12/19/2020 09:00) ( MsgRcvd 12/19/2020 10:20) Final results Test Result Flag [...] NONE Lactic Acid: (DERRICK: 12/19/2020 09:50) ( MsgRcvd 12/19/2020 10:05) Final results Test Result Flag Units (Reference) LACTIC ACID 1.4 MMOL/L (0.2 - 2.2) CT ABD PEL W/O Oral W/O IV Contrast: (DERRICK: 12/19/2020 09:41) ( MsgRcvd 12/19/2020 11:02) In Progress CT ABD Reason(s): [...] thepharmacies. 5 Clinical Report - Physicians/Mid Levels [facility] Emergency Department [address] [place] [address] Phone #: [phone] 12/19/2020 09:10 Patient: MARVIN LEAHY Sex: M : 1990 Age: 30y This report was requested by: Evelio Luna Reference #: [id number] My Prescriptions Patient Name: Marvin Lin Date: 1990 Address: [address] [place], [place] [address]Wut: Male Rx Written Rx Dispensed Drug Quantity Days Supply Prescriber Name Payment Method Dispenser 09/17/2020 09/17/2020 hydrocodone-acetaminophen 5-325 mg tablet 12 3 Evelio Luna MD [facility] [phone] * - Drugs marked with an asterisk [...] HEART 6 Clinical Report - Physicians/Mid Levels [facility] Emergency Department [address] [place] [address] Phone #: ext- [phone] 12/19/2020 09:10 Patient: [...] -- Dispense 12 tablet. Refills: 0. Substitution permitted.[facility] [address] [address] [address] ; [place] [address]. .Flomax 0.4 mg capsule Take 1 capsule once a day for 7 days -- Dispense 7 capsule. Refills: 0.Substitution permitted.[facility] [address] [place] [address] [address] ; [place] [address]. .cefdinir 300 mg capsule Take 1 capsule twice a day for 7 days -- Dispense 14 capsule. Refills: 0.Substitution permitted.[address] ; [place] [address]. .Zofran 4 mg tablet Take 1 tablet three times a day as needed for 4 days -- Dispense 12 tablet. Refills: 0.Substitution permitted.[address] ; [place] [address]. . 7 Clinical Report - Physicians/Mid Levels [facility] Emergency Department [address] [place] [address] Phone #: ext- [phone] 12/19/2020 09:10 Patient: MARVIN LEAHY Sex: M : 1990 Age: 30y Follow-up: Return to the emergency department as needed. Follow up with a erp consultant and urologist in three days even if well. Call for an appointment. Reason for referral: evaluation and treatment. Summary of care provided to donny enriquez via paper. Understanding of the discharge instructions verbalized by patient. Expected course of illness, discharge instructions, activity level, diet, prescriptions x4, follow-up appointment and risks and benefits of treatment reviewed with patient and understanding verbalized. Agrees to plan of care.(Electronically signed by Evelio Luna M.D. 12/19/2020 13:49) Name Value Range Interpretation Code Description Data Marifer rce(s) Supporting Document(s) ID Date Data Source [id number] 12/19/2020 11:16:00 AM EST [facility] Name Value Range Interpretation Code Description Data [facility] rce(s) Supporting Document(s) CBC W/AUTOMATED DIFF [facility] COMPLETE BLOOD COUNT Leukocytes [#/volume] in Blood by Automated count 5.6 10^3/uL 4.2 - 1 1.0 [facility] Erythrocytes [#/volume] in Blood by Automated count 4.55 10^6/uL 4. 50 - 6.30 [facility] Hemoglobin [Mass/volume] in Blood 13.6 g/dL 14.0 - 16.0 L [facility] Hematocrit [Volume Fraction] of Blood by Automated count 41.3 % 4 1.0 - 51.0 [facility] Erythrocyte mean corpuscular volume [Entitic volume] by Auto mated count 90.8 fL 80.0 - 94.0 [facility] Erythrocyte mean corpuscular hemoglobin [Entitic mass] by Automated count 29.9 pg 27.0 - 34.0 [facility] Erythrocyte mean corpuscular hemoglobin concentration [Mass/volume] by Automated count 32.9 g/dL 31.0 - 36.0 [facility] Erythrocyte distribution width [Ratio] by Automated count 12.7 % 11.5 - 14.8 [facility] Platelets [#/volume] in Blood by Automated count 175 10^3/uL 150 - 45 0 [facility] Platelet mean volume [Entitic volume] in Blood by Automated count 11.4 fL 7.4 - 10.4 H [facility] Neutrophils/100 leukocytes in Blood by Automated count 53.6 % 37. 0 - 80.0 [facility] Lymphocytes/100 leukocytes in Blood by Manual count 32.4 % 25.0 - 40.0 [facility] Monocytes/100 leukocytes in Blood by Automated count 11.8 % 3.0 - 8.0 H [facility] Eosinophils/100 leukocytes in Blood by Automated count 1.4 % 0.0 - 7.0 [facility] Basophils/100 leukocytes in Blood by Automated count 0.4 % 0.0 - 2.0 [facility] %IG 0.4 % 0.0 - 0.0 H [facility] al %NRBC 0.0 % 0.0 - 0.0 [facility] al Neutrophils [#/volume] in Blood by Automated count 3.00 10^3/uL 2.00 - 6.90 [facility] Lymphocytes [#/volume] in Blood by Automated count 1.81 10^3/uL 0.60 - 3.40 [facility] Monocytes [#/volume] in Blood by Automated count 0.66 10^3/uL 0.00 - 0.90 [facility] Eosinophils [#/volume] in Blood by Automated count 0.08 10^3/uL 0.00 - 0.70 [facility] Basophils [#/volume] in Blood by Automated count 0.02 10^3/uL 0.00 - 0.20 [facility] #IG 0.02 10^3/uL 0.00 - 0.10 [facility] #NRBC 0.00 10^3/uL 0.00 - 0.00 [facility] ospital MANUAL DIFF NOT INDICATED [facility] RBC MORPH NOT INDICATED [facility] ID Date Data Source [id number] 12/19/2020 10:18:00 AM [facility] Name Value Range Interpretation Code Description Data Marifer rce(s) Supporting Document(s) Lipase [Enzymatic activity/volume] in Serum or Plasma 25 U/L 13 - 60 [facility] ID Date Data Source [id number] 12/19/2020 10:18:00 AM [facility] Name Value Range Interpretation Code Description Data Marifer rce(s) Supporting Document(s) COMPREHENSIVE METABOLIC PANEL [facility] COMPREHENSIVE METABOLIC PANEL Sodium [Moles/volume] in Serum or Plasma 138 mEq/L 134 - 153 [facility] Potassium [Moles/volume] in Serum or Plasma 3.8 mEq/L 3.6 - 5.0 [facility] Chloride [Moles/volume] in Serum or Plasma 103 mEq/L 98 - 107 [facility] Carbon dioxide, total [Moles/volume] in Serum or Plasma 25 MEQ/L 22 - 30 [facility] Glucose [Mass/volume] in Serum or Plasma 98 MG/DL 70 - 99 [facility] BUN 8 MG/DL 7 - 21 [facility] Creatinine [Mass/volume] in Serum or Plasma 0.9 MG/DL 0.7 - 1.5 [facility] BUN/CREAT 9 8 - 27 [facility] Protein [Mass/volume] in Serum or Plasma 6.8 G/DL 6.3 - 8.2 [facility] Albumin [Mass/volume] in Serum or Plasma 4.3 G/DL 3.9 - 5.0 [facility] Globulin [Mass/volume] in Serum by calculation 2.5 GM/DL 2.4 - 3.2 [facility] A/G RATIO 1.7 0.8 - 2.0 [facility] Calcium [Mass/volume] in Serum or Plasma 9.6 MG/DL 8.4 - 10.2 [facility] Bilirubin.total [Mass/volume] in Serum or Plasma <0.7 MG/DL 0.2 - 1.3 [facility] Alkaline phosphatase [Enzymatic activity/volume] in Serum or Plasma 67 U/L 38 - 126 [facility] Aspartate aminotransferase [Enzymatic activity/volume] in Serum or Plasma 27 U/L 5 - 40 [facility] Alanine aminotransferase [Enzymatic activity/volume] in Seru m or Plasma 29 U/L 7 - 56 [facility] Anion gap 3 in Serum or Plasma 10.0 mmol/L 8.0 - 16.0 [facility] AGE 30 yrs [facility] al NON-AA GFR >60 mL/min [facility] ital AFR AMER GFR >60 mL/min [facility] sp[facility] Male GFR In terprentation 20-49 [...] >32 mL/min Normal ID Date Data Source [id number] 12/19/2020 10:05:00 AM EST [facility] Name Value Range Interpretation Code Description Data Marifer rce(s) Supporting Document(s) Lactate [Moles/volume] in Serum or Plasma 1.4 MMOL/L 0.2 - 2.2 [facility] ID Date Data Source [id number] 12/19/2020 10:20:00 AM [facility] Name Value Range Interpretation Code Description Data Marifer rce(s) Supporting Document(s) [facility] COLOR brown NORMAL: Yellow [facility] CLARITY turbid NORMAL: Clear [facility] Specific gravity of Urine by Test strip 1.015 1.001 - 1.030 [facility] pH 8 5 - 9 [facility] al Glucose [Mass/volume] in Urine by Test strip NORM NORMAL: Negat [facility] Bilirubin.total [Presence] in Urine by Test strip NEG NORMAL: Negative [facility] Ketones [Presence] in Urine by Test strip NEG NORMAL: Negative [facility] Protein [Mass/volume] in Urine by Test strip 100 NORMAL: Negat [facility] Nitrite [Presence] in Urine by Test strip NEG NORMAL: Negative [facility] BLOOD 250 NORMAL: Negative [facility] Leukocyte esterase [Presence] in Urine by Test strip 25 LLUVIA L: Negative [facility] Urobilinogen [Mass/volume] in Urine by Test strip NOR less fidelia n 1.0 mg/dL [facility] MICROSCOPIC See Below [facility] Erythrocytes [#/volume] in Urine by Test strip TNTC NORMAL: NON E SEEN A [facility] EPITHELIAL FEW NORMAL: NONE SEEN [facility] Bacteria [Presence] in Urine sediment by Light microscopy Tr du NORMAL: NONE SEEN [facility] ID Date Data Source [id number] 12/03/2020 01:03:00 [place] [address] CONSULTATIONNAME: TOSIN Rivera ROOM#: [id number] OF : 1990 MR#: [id number] PHYS: POP Paulino DATE: 12/01/20DATE OF CONSULTATION: 12/02/20CHIEF COMPLAINT: This 30-year-old white male presented with episode of syncope.HISTORY OF PRESENT ILLNESS:This patient went to [facility] to get food and after he got [...] Clear with no rales or rhonchi. [address] [place] [address] CONSULTATIONNAME: TOSIN Rivera ROOM#: [id number] OF : 1990 MR#: [id number] PHYS: POP Tran DATE: 12/01/20ABDOMEN: Soft and [...] rce(s) Supporting Document(s) ID Date Data Source [id number] 12/12/2020 12:00:00 AM EST [facility] Imaging Jairon Christiansen MD Patient Name: MARVIN [id number] Date of : 1990[facility] [place] [address]- Date of Exam: 12/12/2020#: Fax: [phone] EXAM: CT THORAX WITH CONTRASTCLINICAL INFORMATION: Hilar lymphadenopathy.COMPARISON: CT abdomen and pelvis [facility] 08/15/2020.Low dose [address] scanning of the chest was obtained using 3 mmincrements after the administration of intravenous contrast andreconstructed in both coronal and sagittal scan planes. 75 cc of [id number] was administered intravenously.The lungs are free of [...] and no suspicious lung nodule.Accredited by the [employer] in [place].ROSY Alva/Maryam you for referring MARVIN TOSIN to our office. Electronically Signed - RANDOLPH ALVAREZ MD 12/14/20 18:04 Name Value Range Interpretation Code Description Data Marifer rce(s) Supporting Document(s) ID Date Data Source [id number] 12/05/2020 09:23:00 [place] [address] PHONE: [phone] FAX: [phone] Name .................. : TOSIN Rivera Acct Number.................. : [id number] ROOM. ................. : 101-1 MR Number ................... : [id number] Stay type ............. : O/P Discharge Date......... ... : 12/03/20 Admit Date ......... : 12/01/20 Admit Phys .................... : AMARJIT Date of ....... : 1990 Family Phys ................... : NON STAFF Phone .................. : [phone] Age ................................ : 30 Film# .................. .:[id number] Sex ................................. : M Unsigned transcriptions are preliminary reports and do not represent a medical or legal document CAROTID [id number] COMPLETE:12/01/20 08:09 [facility] 2817 (REASON FOR PROCEDURE :SYNCOPE CAROTID [...] rce(s) Supporting Document(s) ID Date Data Source [id number] 12/03/2020 12:19:00 PM EST [facility] [address] [place] [address] PHONE: [phone] FAX: [phone] Name .................. : TOSIN WONG Nicole Acct Number.................. : [id number] ROOM. ................. : TR-08 MR Number ................... : [id number] Stay type ............. : E/R Discharge Date......... ... : Admit Date ......... : 12/01/20 Admit Phys .................... : LETICIA Burleson Date of ....... : 1990 Family Phys ................... : NON STAFF Phone .................. : [phone] Age ................................ : 30 Film# .................. .:[id number] Sex ................................. : M Unsigned transcriptions are preliminary reports and do not represent a medical or legal document CHEST 1 VIEW 18379 COMPLETE:12/01/20 15:46 2810 Reason(s): syncope CHEST X-RAY: [...] for: EMERGENCY DEPT via modem Copy for: [address] [place] [address] REC Page 1 of 1 Name Value Range Interpretation Code Description Data Marifer rce(s) Supporting Document(s) ID Date Data Source [id number] 12/03/2020 12:18:00 [place] [address] PHONE: [phone] FAX: [phone] Name .................. : TOSIN WONG Nicole Acct Number.................. : [id number] ROOM. ................. : TR-08 Number ................... : [id number] Stay type ............. : E/R Discharge Date......... ... : Admit Date ......... : 12/01/20 Admit Phys .................... : LETICIA Burleson Date of ....... : 1990 Family Phys ................... : NON STAFF Phone .................. : [phone] Age ................................ : 30 Film# .................. .:[id number] Sex ................................. : M Unsigned transcriptions are preliminary reports and do not represent a medical or legal document CT HEAD W/O CONTRAST [id number] COMPLETE:12/01/20 15:46 2809 Reason(s): syncope CT SCAN [...] for: EMERGENCY DEPT via modem Copy for: [address] [place] [address] REC Page 1 of 1 Name Value Range Interpretation Code Description Data Marifer rce(s) Supporting Document(s) ID Date Data Source [id number] 12/03/2020 12:18:00 PM [facility] [address] [place] [address] PHONE: [phone] FAX: [phone] Name .................. : TOSIN Rivera Acct Number.................. : [id number] ROOM. ................. : TR-08 MR Number ................... : [id number] Stay type ............. : E/R Discharge Date......... ... : Admit Date ......... : 12/01/20 Admit Phys .................... : LETICIA Burleson Date of ....... : 1990 Family Phys ................... : NON STAFF Phone .................. : [phone] Age ................................ : 30 Film# .................. .:[id number] Sex ................................. : M Unsigned transcriptions are preliminary reports and do not represent a medical or legal document DOPPLER UNILATERAL VENOUS [id number] COMPLETE:12/01/20 17:32 2812 Reason(s): Has known DVT [...] rce(s) Supporting Document(s) ID Date Data Source [id number] 12/03/2020 06:48:00 AM EST [facility] (Dylan Shi [...] >32 mL/min Normal ID Date Data Source [id number] 12/03/2020 06:48:00 AM EST [facility] (Dylan Shi [...] (Dylan Shi MD) ID Date Data Source [id number] 12/03/2020 07:29:00 AM EST [facility] Name Value Range Interpretation Code Description Data Marifer rce(s) Supporting Document(s) COMPREHENSIVE METABOLIC PANEL [facility] COMPREHENSIVE METABOLIC PANEL Sodium [Moles/volume] in Serum or Plasma 140 mEq/L 134 - 153 [facility] Potassium [Moles/volume] in Serum or Plasma 4.1 mEq/L 3.6 - 5.0 [facility] Chloride [Moles/volume] in Serum or Plasma 105 mEq/L 98 - 107 [facility] Carbon dioxide, total [Moles/volume] in Serum or Plasma 28 MEQ/L 22 - 30 [facility] Glucose [Mass/volume] in Serum or Plasma 100 MG/DL 70 - 99 H [facility] BUN 10 MG/DL 7 - 21 [facility] Creatinine [Mass/volume] in Serum or Plasma 0.8 MG/DL 0.7 - 1.5 [facility] BUN/CREAT 13 8 - 27 [facility] al Protein [Mass/volume] in Serum or Plasma 6.9 G/DL 6.3 - 8.2 [facility] Albumin [Mass/volume] in Serum or Plasma 4.4 G/DL 3.9 - 5.0 [facility] Globulin [Mass/volume] in Serum by calculation 2.5 GM/DL 2.4 - 3.2 [facility] A/G RATIO 1.8 0.8 - 2.0 [facility] Calcium [Mass/volume] in Serum or Plasma 9.3 MG/DL 8.4 - 10.2 [facility] Bilirubin.total [Mass/volume] in Serum or Plasma <0.7 MG/DL 0.2 - 1.3 [facility] Alkaline phosphatase [Enzymatic activity/volume] in Serum or Plasma 57 U/L 38 - 126 [facility] Aspartate aminotransferase [Enzymatic activity/volume] in Serum or Plasma 18 U/L 5 - 40 [facility] Alanine aminotransferase [Enzymatic activity/volume] in Seru m or Plasma 18 U/L 7 - 56 [facility] Anion gap 3 in Serum or Plasma 7.0 mmol/L 8.0 - 16.0 L [facility] AGE 30 yrs [facility] NON-AA GFR >60 mL/min [facility] ital AFR AMER GFR >60 mL/min [facility] spital Male GFR In terprentation 20-49 [...] >32 mL/min Normal ID Date Data Source [id number] 12/03/2020 07:12:00 AM EST [facility] Name Value Range Interpretation Code Description Data Marifer rce(s) Supporting Document(s) CBC W/AUTOMATED DIFF [facility] COMPLETE BLOOD COUNT Leukocytes [#/volume] in Blood by Automated count 5.2 10^3/uL 4.2 - 1 1.0 [facility] Erythrocytes [#/volume] in Blood by Automated count 4.44 10^6/uL 4. 50 - 6.30 L [facility] Hemoglobin [Mass/volume] in Blood 13.3 g/dL 14.0 - 16.0 L [facility] Hematocrit [Volume Fraction] of Blood by Automated count 39.1 % 4 1.0 - 51.0 L [facility] Erythrocyte mean corpuscular volume [Entitic volume] by Auto mated count 88.1 fL 80.0 - 94.0 [facility] Erythrocyte mean corpuscular hemoglobin [Entitic mass] by Automated count 30.0 pg 27.0 - 34.0 [facility] Erythrocyte mean corpuscular hemoglobin concentration [Mass/volume] by Automated count 34.0 g/dL 31.0 - 36.0 [facility] Erythrocyte distribution width [Ratio] by Automated count 12.3 % 11.5 - 14.8 [facility] Platelets [#/volume] in Blood by Automated count 185 10^3/uL 150 - 45 0 [facility] Platelet mean volume [Entitic volume] in Blood by Automated count 10.2 fL 7.4 - 10.4 [facility] Neutrophils/100 leukocytes in Blood by Automated count 41.3 % 37. 0 - 80.0 [facility] Lymphocytes/100 leukocytes in Blood by Manual count 48.2 % 25.0 - 40.0 H [facility] Monocytes/100 leukocytes in Blood by Automated count 7.8 % 3.0 - 8.0 [facility] Eosinophils/100 leukocytes in Blood by Automated count 2.1 % 0.0 - 7.0 [facility] Basophils/100 leukocytes in Blood by Automated count 0.4 % 0.0 - 2.0 [facility] %IG 0.2 % 0.0 - 0.0 [facility] %NRBC 0.0 % 0.0 - 0.0 [facility] al Neutrophils [#/volume] in Blood by Automated count 2.16 10^3/uL 2.00 - 6.90 [facility] Lymphocytes [#/volume] in Blood by Automated count 2.52 10^3/uL 0.60 - 3.40 [facility] Monocytes [#/volume] in Blood by Automated count 0.41 10^3/uL 0.00 - 0.90 [facility] Eosinophils [#/volume] in Blood by Automated count 0.11 10^3/uL 0.00 - 0.70 [facility] Basophils [#/volume] in Blood by Automated count 0.02 10^3/uL 0.00 - 0.20 [facility] #IG 0.01 10^3/uL 0.00 - 0.10 [facility] ospital #NRBC 0.00 10^3/uL 0.00 - 0.00 [facility] ospital MANUAL DIFF NOT INDICATED [facility] RBC MORPH NOT INDICATED [facility] spital ID Date Data Source [id number] 12/02/2020 12:36:00 [place] [address] RESPIRATORY CARE REPORT ==== ---------NAME------- NUMBER SEX AGE ADMIT DISC. XRAY# F/C RHONDA WONG N [id number] M 30 12/01/20 [id number] SB4 O/P DATE OF : 1990 M/R# [id number] #: [id number] LOCATION: EMERGENCY DEPT EKG [id number] COMP LETE:12/02/20 08:14 ED 36856 PHYSICIAN: AMARJIT Name Value Range Interpretation Code Description Data Marifer rce(s) Supporting Document(s) ID Date Data Source [id number] 12/02/2020 12:35:00 [address] [place] [address] RESPIRATORY CARE REPORT ==== ---------NAME------- NUMBER SEX AGE ADMIT DISC. XRAY# F/C RHONDA WONG N [id number] M 30 12/01/20 [id number] SB4 O/P DATE OF : 1990 M/R# [id number] #: [id number] LOCATION: EMERGENCY DEPT [facility] [address] [facility] LETE:12/02/20 06:27 ED 27683 PHYSICIAN: AMARJIT MACE CH Name Value Range Interpretation Code Description Data Marifer rce(s) Supporting Document(s) ID Date Data Source [id number] 12/02/2020 04:48:00 AM [facility] Name Value Range Interpretation Code Description Data Marifer rce(s) Supporting Document(s) TROPONIN T <0.01 NG/ML 0.00 - 0.10 [facility] ospital TROPONIN T0.1 ng/ml Recommended as the c linical threshold value forTroponin T. ID Date Data Source [id number] 12/02/2020 04:47:00 AM [facility] Name Value Range Interpretation Code Description Data Marifer rce(s) Supporting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 [facility] [id number] lbm [file] [id number]= ID Date Data Source [id number] 11/20/2020 08:56:00 AM EST [facility] [address] [place] [address] PHONE: [phone] FAX: [phone] Name .................. : TOSIN Rivera Acct Number.................. : [id number] ROOM. ................. : [address] Number ................... : [id number] Stay type ............. : E/R Discharge Date......... ... : 11/19/20 Admit Date ......... : 11/19/20 Admit Phys .................... : SAMANTHA OLVERA Date of ....... : 1990 Family Phys ................... : NON STAFF Phone .................. : [phone] Age ................................ : 30 Film# .................. .:[id number] Sex ................................. : M Unsigned transcriptions are preliminary reports and do not represent a medical or legal document MRI LUMBAR SPINE W/O CONTRAST [id number] COMPLETE:11/19/20 15:25 INGRID 1972 Reason(s): Lower Back [...] By Marlon Decker MD , 11/20/20 08:56, GREG Transcribe Initials: GAYATHRI , Transcribe Date: 11/20/20 01:55, Dictation Date: Copy for: GRAYSON GONZALEZ via fax Copy for: EMERGENCY DEPT via modem Copy for: 710 MED REC DISCHARGED Page 1 of 1 Name Value Range Interpretation Code Description Data Marifer rce(s) Supporting Document(s) ID Date Data Source [id number] 11/19/2020 02:16:00 PM EST [facility] 1 OrderSheet [facility] Emergency Department [address] [place] [address] Phone #: ext- [phone] 11/19/2020 13:54 Patient: MARVIN LEAHY Sex: M : 1990 Age: 30yWEIGHT:92.9 kg (S) HEIGHT:72 inches (S) BMI:27.8ALLERGIES: SeafoodCHIEF COMPLAINT: back pain, chronic back painDIAGNOSIS: BackacheLAB ORDERSOrder Description Priority Entered Acknowledged InitialedUrinalysis (Clean STAT 14:28 11/19/2020 14:28 Keri Nagy Jennifer Jennifer R.N. R.NYang; Verbal order per; Larry Moreno PADIAGNOSTIC STUDY ORDERSOrder Description Priority Entered Acknowledged InitialedMRI Spine Lumbar STAT 14:36 11/19/2020 14:41 BurnhamW/O Cont Larry Moreno metal polisherEsvin Liu ER(Oxygen?(No)) (No) PA; Tech1 Reason for Study: [...] by Larry Moreno (21:18 11/19/2020)] 2 OrderSheet [facility] Emergency Department [address] [place] [address] Phone #: ext- [phone] 11/19/2020 13:54 Patient: MARVIN LEAHY Sex: M : 1990 Age: 30y[Electronically locked by Troy Ann RN (15:51 11/19/2020)] Name Value Range Interpretation Code Description Data Marifer rce(s) Supporting Document(s) ID Date Data Source [id number] 11/19/2020 02:16:00 PM EST [facility] 1 Medication Reconciliation Report [facility] Emergency Department [address] [place] [address] Phone #: ext- [phone] 11/19/2020 13:54 Patient: [...] the Emergency Department: 2 Medication Reconciliation Report [facility] Emergency Department [address] [place] [address] Phone #: ext [phone] 11/19/2020 13:54 Patient: MARVIN LEAHY Sex: M : 1990 Age: 30yPrednisone [PO] PO 60 mg, administered: 15:25 11/19/2020Toradol [IM] IM 60 mg, administered: 15:25 11/19/2020Gabapentin [PO] PO 100 mg, administered: 15:28 11/19/2020The following Medications were prescribed to the patient:Medrol (Duyen) 4 mg tablets in a dose pack Take 1 tablet as directed for 6 days -- Dispense 1 pack.Refills: 0. Substitution permitted.Pharmacy - [address] ; [place] [address]. FaxNumber: .gabapentin 100 mg capsule Take 1 capsule three times a day for 30 days -- Dispense 90 capsule.Refills: 0. Substitution permitted.Pharmacy - [address] ; [place] [address]. .methocarbamol 500 mg tablet Take 1 tablet three times a day for 10 days -- Dispense 30 tablet. Refills:0. Substitution permitted.Pharmacy - [address] ; [place] [address]. . -- PERLA Cisse Name Value Range Interpretation Code Description Data Marifer rce(s) Supporting Document(s) ID Date Data Source [id number] 11/19/2020 02:16:00 PM EST [facility] 1 Medication Administration Record [facility] Emergency Department [address] [place] [address] Phone #: ext- [phone] 11/19/2020 13:54 Patient: MARVIN LEHAY Sex: M : 1990 Age: 30yWeight: 92.9 kgHeight/Length: 72 inBMI: 27.8ALLERGIES: Seafood Date/Time Medication Administered Medication OrderedGiven TORADOL [IM] (KETOROLAC Toradol IM 60 mg15:25 11/19/2020 TROMET REISDINA)Jennifer Nagy R.N. Dose: 60 mg IMGiven GABAPENTIN [PO] Gabapentin PO 100 mg15:28 11/19/2020 Dose: 100 mg Capsules Jennifer Andrews R.N.Given PREDNISONE [PO] predniSONE PO 60 mg15:25 11/19/2020 Dose: 60 mg Tablets Jennifer Andrews R.N. Name Value Range Interpretation Code Description Data Marifer rce(s) Supporting Document(s) ID Date Data Source [id number] 11/19/2020 02:16:00 PM EST [facility] 1 General Instructions [facility] Emergency Department [address] [place] [address] Phone #: ext- [phone] 11/19/2020 13:54 Patient: [...] pack. Refills: 0. Substitution permitted. Pharmacy - [facility] ; [place] [address]. . gabapentin 100 mg capsule Take 1 capsule three times a day for 30 days -- Dispense 90 capsule. Refills: 0. Substitution permitted. [facility] - [facility] ; [place] [address]. . 2 General Instructions [facility] Emergency Department [address] [place] [address] Phone #: ext- [phone] 11/19/2020 13:54 Patient: MARVIN LEAHY Sex: M : 1990 Age: 30ymethocarbamol 500 mg tablet Take 1 tablet three times a day for 10 days -- Dispense 30 tablet. Refills:0. Substitution permitted.[facility] - [facility] [address] [address] [facility] ; [place] [address]. .Follow-up:Follow up with your doctor tomorrow. Call for an appointment. Reason for referral: evaluation, treatmentand refer to pain management and physical therapy. Summary of care provided to patient.Understanding of the discharge instructions verbalized by patient. ADDITIONAL INFORMATIONBack Pain (Acute or Chronic) 3 [facility] Emergency Department [address] [place] [address] Phone #: ext- [phone] 11/19/2020 13:54 Patient: [...] this home care advice: 4 General Instructions [facility] Emergency Department [address] [place] [address] Phone #: ext- [phone] 11/19/2020 13:54 Patient: [...] or are takingother medicines. You may use [id number] medicine as directed on the bottle to [...] may affect your care 5 General Instructions [facility] Emergency Department [address] [place] [address] Phone #: ext- [phone] 11/19/2020 13:54 Patient: MARVIN LEAHY Sex: M [...] Numbness in the groin or genital area [id number] [employer]. [address] [place] [address]. All rights reserved. This information is not intended as asubstitute for professional medical care. Always follow your healthcare professional's instructions. You have been given the following additional information: Back Pain (Acute or Chronic) No strenuous activity until released (see your DANIEL DUNCAN for profile).(Electronically signed by PERLA Cisse 11/19/2020 21:18) Name Value Range Interpretation Code Description Data Marifer rce(s) Supporting Document(s) ID Date Data Source [id number] 11/19/2020 02:16:00 PM EST [facility] 1 Clinical Report - Nurses [facility] Emergency Department [address] [place] [address] Phone #: ext- [phone] 11/19/2020 13:54 Patient: MARVIN LEAHY Sex: M : 1990 Age: 30yTRIAGEArrived by private vehicle. Historian: patient. Unaccompanied. ( complains of lower back pain, painworse since last night).Acuity: LEVEL 4.Chief Complaint: BACK PAIN.Alert.Onset. (1 year). The patient has had trouble walking. 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 Lidocaine External. --14:07 11/19/20 Michelle Rowalnd R.N. Memetasone furoate 15mg , 4x a day. --14:07 11/19/20 Michelle Rowland R.N.AllergiesSeafood. --14:02 11/19/20 Michelle Rowland R.N. 2 Clinical Report - Nurses [facility] Emergency Department [address] [place] [address] Phone #: [phone] cfs- [phone] 11/19/2020 13:54 Patient: MARVIN LEAHY Sex: M : 1990 Age: 30yPROBLEMS:Back Pain. --14:08 11/19/20 Michelle Rowland R.N.Hematuria. --15:32 11/19/20 Larry Moreno PADVT - Deep Venous Thrombosis. --15:33 11/19/20 Beatriz [...] the [place] 3 Clinical Report - Nurses [facility] Emergency Department [address] [place] [address] Phone #: ext- [phone] 11/19/2020 13:54 Patient: [...] Patient transported to MRI by wheelchair with environmental monitoring technician. --14:43 11/19/20 Alyssa Ashton Patient returned from MRI by wheelchair with mask and environmental monitoring technician. --15:20 11/19/20 Jennifer Nagy R.N. 15:25 11/19/2020 [...] / DISCHARGE 4 Clinical Report - Nurses [facility] Emergency Department [address] [place] [address] Phone #: ext- [phone] 11/19/2020 13:54 Patient: MARVIN LEAHY Sex: M : 1990 Age: 30y 15:48 11/19/20. BP: 121/68. HR: 76. RR: 16. O2 saturation: 100%. Temp: 96.8 F. Pain level now 04/18. --15:48 11/19/20 [facility] Tech, Esvin, Tech1 Condition at departure: improved and stable. Discharge instructions provided and reviewed with the patient. Reviewed medication(s) side effects, precautions, dosing and course information. Reviewed referral to a primary care physician. Activity restrictions (rest) reviewed. Patient verbalized understanding. Written instructions provided in Iranian. The patient was discharged by the physician court assistant. He was discharged home and accompanied by exhibit builder. He left ambulatory and via private vehicle. 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 --15:51 11/19/20 Troy Ann RN.Locked/Released at 11/19/2020 15:51 by Troy Ann RN Name Value Range Interpretation Code Description Data Marifer rce(s) Supporting Document(s) ID Date Data Source [id number] 11/19/2020 02:16:00 PM [facility] 1 Clinical Report - Physicians/Mid Levels [facility] Emergency Department [address] [place] [address] Phone #: ext- [phone] 11/19/2020 13:54 Patient: [...] week. 2 Clinical Report - Physicians/Mid Levels [facility] Emergency Department [address] [place] [address] Phone #: ext- [phone] 11/19/2020 13:54 Patient: [...] otherwise follow up with his [facility] at [facility] Patient counseled in person regarding the [...] al deficit. 3 Clinical Report - Physicians/Mid [facility] Emergency Department [address] [place] [address] Phone #: ext- [phone] 11/19/2020 13:54 [facility]: [id number] Sex: M : 1990 Age: 30yINSTRUCTIONS No [...] pack. Refills: 0. Substitution permitted. Pharmacy - [facility] [id number] [place] [address] ; [place] [address]. . gabapentin 100 mg capsule Take 1 capsule three times a day for 30 days -- Dispense 90 capsule. Refills: 0. Substitution permitted. [facility] [address] [facility] ; [place] [address]. . methocarbamol 500 mg tablet Take 1 tablet three times a day for 10 days -- Dispense 30 tablet. Refills: 0. Substitution permitted. Pharmacy - [facility] - [address] [facility] ; [place] [address]. . Follow-up: 4 Clinical Report - Physicians/Mid Levels [facility] Emergency Department [address] [place] [address] Phone #: ext- [phone] 11/19/2020 13:54 Patient: MARVIN LEAHY Sex: M [...] rce(s) Supporting Document(s) ID Date Data Source [id number] 11/19/2020 02:54:00 PM EST [facility] Name Value Range Interpretation Code Description Data Marifer rce(s) Supporting Document(s) [facility] S[facility] R [facility] COLOR yellow NORMAL: Yellow [facility] CLARITY cloudy NORMAL: Clear [facility] Specific gravity of Urine by Test strip 1.015 1.001 - 1.030 [facility] pH 8 5 - 9 [facility] al Glucose [Mass/volume] in Urine by Test strip NORM NORMAL: Negat xiomara [facility] Bilirubin.total [Presence] in Urine by Test strip NEG NORMAL: Negative [facility] Ketones [Presence] in Urine by Test strip NEG NORMAL: Negative [facility] [facility] Protein [Mass/volume] in Urine by Test strip NEG NORMAL: Negat xiomara [facility] Nitrite [Presence] in Urine by Test strip NEG NORMAL: Negative [facility] BLOOD 50 NORMAL: Negative A [facility] Leukocyte esterase [Presence] in Urine by Test strip NEG LLUVIA L: Negative [facility] Urobilinogen [Mass/volume] in Urine by Test strip NOR less fidelia n 1.0 mg/dL [facility] MICROSCOPIC See Below [facility] ital Erythrocytes [#/volume] in Urine by Test strip 3 - 5 NORMAL: NON E SEEN [facility] EPITHELIAL FEW NORMAL: NONE SEEN [facility] Bacteria [Presence] in Urine sediment by Light microscopy 1+ SMALL NORMAL: NONE SEEN [facility] Amorphous sediment [Presence] in Urine sediment by Light marleni roscopy 3+ NORMAL: NONE SEEN [facility] ID Date Data Source [id number] 11/14/2020 11:18:00 AM EST [facility] ([facility]) Name Value Range Interpretation Code Description Data Marifer rce(s) Supporting Document(s) Color of Urine Laboratory test result [facility] ([facility]) Appearance of Urine Laboratory test result [facility] ([facility]) [facility] [place] [facility].010 [facility] pH of Urine by Test strip 8 [facility] NT ([facility]) Leukocytes Laboratory test result [facility] ([facility]) Nitrate [Presence] in Urine Laboratory test result [facility] ([facility]) Protein [Presence] in Urine by Test strip Laboratory test result [facility] ([facility]) Inhouse Glucose Laboratory test result [facility] ([facility]) Ketones [Presence] in Urine by Test strip Laboratory test result [facility] ([facility]) Urobilinogen Laboratory test result [facility] ([facility]) Bilirubin.total [Presence] in Urine by Test strip Laboratory test res ult [facility] ([facility]) Blood type and Indirect antibody screen panel - Blood Laboratory test result [facility] ([facility]) ID Date Data Source [id number] 10/23/2020 10:27:00 AM EST [facility] [address] [facility] [place] [address] PHONE: [phone] FAX: [phone] Name .................. : TOSIN Rivera Acct Number.................. : [id number] ROOM. ................. : TR-08 MR Number ................... : [id number] Stay type ............. : E/R Discharge Date......... ... : 10/19/20 Admit Date ......... : 10/19/20 Admit Phys .................... : CHAO CANDE Date of ....... : 1990 Family Phys ................... : NON STAFF Phone .................. : [phone] Age ................................ : 30 Film# .................. .:[id number] Sex ................................. : M Unsigned transcriptions are preliminary reports and do not represent a medical or legal document CT HEAD W/O CONTRAST [id number] COMPLETE:10/19/20 19:17 NELLY 24 Reason(s): Syncope CT [...] rce(s) Supporting Document(s) ID Date Data Source [id number] 10/22/2020 09:17:00 AM EST [facility] [address] [place] [address] PHONE: [phone] FAX: [phone] Name .................. : TOSIN WONG Nicole Acct Number.................. : [id number] ROOM. ................. : TR-08 MR Number ................... : [id number] Stay type ............. : E/R Discharge Date......... ... : 10/19/20 Admit Date ......... : 10/19/20 Admit Phys .................... : CHAO CANDE Date of ....... : 1990 Family Phys ................... : NON STAFF Phone .................. : [phone] Age ................................ : 30 Film# .................. .:[id number] Sex ................................. : M Unsigned transcriptions are preliminary reports and do not represent a medical or legal document CHEST 2 VIEWS [id number] COMPLETE:10/19/20 19:17 NELLY 23 Reason(s): Syncope CHEST X-RAY: 2-VIEWS INDICATION: Syncope. COMPARISON: None. FINDINGS: The cardiac and mediastinal silhouettes appear normal and the lungs are clear. The bones and soft tissues are normal. The upper abdomen is unremarkable. IMPRESSION: No acute disease identifiable. Electronically Reviewed and Signed By Nimco Bradley MD , 10/22/20 09:17, KGSusan Transcribe Initials: GAYATHRI , Transcribe Date: 10/20/20 00:57, Dictation Date: Copy for: GRAYSON GONZALEZ via fax Copy for: CHAO Hall via fax Copy for: EMERGENCY DEPT via modem Copy for: 710 MED REC DISCHARGED Page 1 of 1 Name Value Range Interpretation Code Description Data Marifer rce(s) Supporting Document(s) ID Date Data Source [id number] 10/20/2020 09:17:00 [place] [address] RESPIRATORY CARE REPORT ==== ---------NAME------- NUMBER SEX AGE ADMIT DISC. XRAY# F/C RHONDA Rivera [id number] M 30 10/19/20 10/19/20 [id number] SB4 E/R DATE OF : 1990 M/R# [id number] PH#: [phone] TR-08 LOCATION: EMERGENCY DEPT EKG 23274 COMP LETE:10/19/20 14:52 [facility] [address] PHYSICIAN: CHAO MORENO Name Value Range Interpretation Code Description Data Marifer rce(s) Supporting Document(s) ID Date Data Source [id number] 10/19/2020 10:32:00 AM EST [facility] 1 OrderSheet [facility] Emergency Department [address] [place] [address] Phone #: ext- [phone] 10/19/2020 10:31 Patient: [...] Harley R.N.;Urinalysis (Clean STAT 10:56 10/19/2020 12:09 Cricket,Catch) Larry DUNCAN;DIAGNOSTIC STUDY ORDERSOrder Description Priority Entered Acknowledged InitialedChest 2 View STAT 10:56 10/19/2020 11:58 Cricket, 2 OrderSheet [facility] Emergency Department [address] [place] [address] Phone #: ext- [phone] 10/19/2020 10:31 -------- Patient: MARVIN LEAHY Sex: M : 1990 Age: 30y(Oxygen?(No)) Larry DUNCAN; Reason for Study: SyncopeCT Head W/O Cont STAT 10:56 10/19/2020 11:58 Cricket,(Oxygen?(No)) Larry DUNCAN; Reason for Study: SyncopeMEDICATION/IV/DRIP/FLUID ORDERSOrder Description Priority Entered Acknowledged InitialedMorphine IVP 4 mg 10:57 10/19/2020 Cancelled: Physician Order 11:30 Larry(HIGH ALERT Larry Moreno PAMEDICATION) PERLA;Zofran ODT PO 8 10:57 10/19/2020 11:34 mg Larry Harley R.N.;Morphine IM 4 mg 11:30 10/19/2020 11:34 Cricket,(HIGH ALERT Larry Hall R.N.ME DICATION) PERLA;GENERAL ORDERSOrder Description Priority Entered Acknowledged InitialedBlood Pressure 10:57 10/19/2020 11:00 CricketMonitor Larry DUNCAN;Roll Winder 10:57 10/19/2020 11:00 Cricket(continuous) Larry DUNCAN;EKG 10:57 10/19/2020 11:00 Larry Harley R.N.;Pulse oximeter 10:57 10/19/2020 11:00 Cricket(Pj) Larry DUNCAN;Vitals 10:57 10/19/2020 11:00 Larry Harley R.N.;[Electronically signed by Rafael Harley R.N. (13:51 10/19/2020)][Electronically signed by Larry Moreno (21:52 10/19/2020)][Electronically locked by Rafael Harley R.N. (13:51 10/19/2020)] Name Value Range Interpretation Code Description Data Marifer rce(s) Supporting Document(s) ID Date Data Source [id number] 10/19/2020 10:32:00 AM EST [facility] 1 Medication Reconciliation Report [facility] Emergency Department [address] [place] [address] Phone #: [phone]- [phone] 10/19/2020 10:31 Patient: MARVIN LEAHY Sex: M [...] Dispense 90 capsule.Refills: 0. Substitution permitted.Pharmacy - [facility] - [id number] ; [place] [address]. .Medrol (Duyen) 4 mg tablets in a dose pack Take 1 tablet as directed for 6 days -- Dispense 1 pack. 2 Medication Reconciliation Report [facility] Emergency Department [address] [place] [address] Phone #: ext- [phone] 10/19/2020 10:31 -- Patient: MARVIN LEAHY Sex: M : 1990 Age: 30yRefills: 0. Substitution permitted.Pharmacy - [facility] - [address] ; [place] [address]. . -- PERLA Cisse Name Value Range Interpretation Code Description Data Marifer rce(s) Supporting Document(s) ID Date Data Source [id number] 10/19/2020 10:32:00 AM EST [facility] 1 Medication Administration Record [facility] Emergency Department [address] [place] [address] Phone #: ext- [phone] 10/19/2020 10:31 Patient: [...] rce(s) Supporting Document(s) ID Date Data Source [id number] 10/19/2020 10:32:00 AM EST [facility] 1 General Instructions [facility] Emergency Department [address] [place] [address] Phone #: ext- [phone] 10/19/2020 10:31 Patient: [...] Dispense 90 capsule.Refills: 0. Substitution permitted.Pharmacy - [facility] [employer] [address] ; [place] [address]. .Medrol (Duyen) 4 mg tablets in a dose pack Take 1 tablet as directed for 6 days -- Dispense 1 pack.Refills: 0. Substitution permitted.Pharmacy - [facility] [employer] [facility] - [address] ; [place] [address]. .Understanding of the discharge instructions verbalized by patient.Follow-up with: Dylan Shi MD, Cardiology, , [address] [place] [address], [address] Follow up. Call for the next available appointment. Reason for referral: evaluation, treatment and seeyour PCM for referral to Cardiology for further evaluation. Summary of care provided to patient.Follow-up with: Benito Willett M.D., Urology, , [address] [place] [address], [address] Follow up. Call for the next available appointment. Reason for referral: evaluation, treatment and seeyour PCM for referral to Urology, evaluate Hematuria and Micurition Syncope. Summary of care providedto patient. ADDITIONAL INFORMATIONFainting: Vagal Reaction 2 General Instructions [facility] Emergency Department [address] [place] [address] Phone #: ext- [phone] 10/19/2020 10:31 Patient: [...] very rapidly, very slowly, or irregularly (palpitations) [phone] [employer]. [address] [place] [address]. All rights reserved. This information is not intended as asubstitute for professional medical care. Always follow your healthcare professional's instructions.High Blood Pressure, To Be Confirmed, No Treatment 3 General Instructions [facility] Emergency Department [address] [place] [address] Phone #: ext- [phone] 10/19/2020 10:31 Patient: [...] monitors at most pharmacies. 4 General Instructions [facility] Emergency Department [address] [place] [address] Phone #: ext- [phone] 10/19/2020 10:31 Patient: MARVIN LEAHY Sex: M : 1990 Age: 30yThe [place] [employer] Association advises the following guidelines for [...] heart failure, kidney disease, and stroke.Call 911Call [phone] if you have any of these: Blood pressure of 180/120 or higher Chest pain or shortness of breath Weakness of an arm or leg or one side of the face Problems speaking or seeingWhen to get medical advice 5 General Instructions [facility] Emergency Department [address] [place] [address] Phone #: [phone]- [phone] 10/19/2020 10:31 Patient: MARVIN LEAHY Sex: M : 1990 Age: 30yCall your healthcare provider right away if any of these occur: Severe headache Throbbing or rushing sound in the ears Nosebleed Sudden severe pain in your belly (abdomen) Extreme drowsiness, confusion, or fainting Dizziness or dizziness with spinning feeling (vertigo) [employer]. [address] [place] [address], [place] [address]. All rights reserved. This information is not intended as asubstitute for professional medical care. Always follow your healthcare prof richard's instructions.Back Pain (Acute or Chronic) 6 General Instructions [facility] Emergency Department [address] [place] [address] Phone #: ext- [phone] 10/19/2020 10:31 Patient: [...] this home care advice: 7 General Instructions [facility] Emergency Department [address] [place] [address] Phone #: ext- [phone] 10/19/2020 10:31 Patient: [...] or are takingother medicines. You may use [id number] medicine as directed on the bottle to [...] may affect your care 8 General Instructions [facility] Emergency Department [address] [place] [address] Phone #: ext- [phone] 10/19/2020 10:31 Patient: [...] Numbness in the groin or genital area [phone] [employer]. [address] [place] [address], [place] [address]. All rights reserved. This information is not intended as asubstitute for professional medical care. Always follow your healthcare professional's instructions.Blood in the Urine 9 General Instructions [facility] Emergency Department [address] [place] [address] Phone #: ext- [phone] 10/19/2020 10:31 Patient: [...] using these medicines.Follow-up care 10 General Instructions [facility] Emergency Department [address] [place] [address] Phone #: ext- [phone] 10/19/2020 10:31 Patient: [...] the nose or gums or easy bruising [phone] [employer]. [address] [place] [address]. All rights reserved. This information is not [...] rce(s) Supporting Document(s) ID Date Data Source [id number] 10/19/2020 10:32:00 AM EST [facility] 1 Clinical Report - Nurses [facility] Emergency Department [address] [place] [address] Phone #: ext- [phone] 10/19/2020 10:31 Patient: [...] killing yourself?". 2 Clinical Report - Nurses [facility] Emergency Department [address] [place] [address] Phone #: ext- [phone] 10/19/2020 10:31 Patient: [...] 10/19/20 Rafael Harley R.N. Patient returned from [place] by wheelchair with tech. --11:59 10/19/20 Rafael Harley R.N. Reassurance given to the patient. --11:59 10/19/20 Rafael Harley R.N. Bed placed in lowest position. Brakes of bed on. --13:50 10/19/20 Rafael Harley R.N.DISPOSITION / DISCHARGE No learning barriers present. Discharge instructions provided and reviewed with the patient. The patient was discharged by the physician court assistant. He was discharged home. He left ambulatory and via private vehicle. Patient driving. --13:50 10/19/20 Rafael Harlye R.N. 13:50 10/19/20. BP: 124/66. MAP: 85. HR: 62. RR: 18. O2 saturation: deferred. Temp: deferred. Pain level now: 12/19. --13:50 10/19/20 Rafael Harley R.N. Departure time: 13:51 10/19/2020. --13:51 10/19/20 Rafael Harley R.N. 3 Clinical Report - Nurses [facility] Emergency Department [address] [place] [address] Phone #: ext- [phone] 10/19/2020 10:31 Patient: MARVIN LEAHY Sex: M : 1990 Age: 30yLocked/Released at 10/19/2020 13:51 by Rafael Harley R.N. Name Value Range Interpretation Code Description Data Marifer rce(s) Supporting Document(s) ID Date Data Source [id number] 10/19/2020 10:32:00 AM EST [facility] 1 Clinical Report - Physicians/Mid Levels [facility] Emergency Department [address] [place] [address] Phone #: ext- [phone] 10/19/2020 10:31 Patient: [...] use. 2 Clinical Report - Physicians/Mid Levels [facility] Emergency Department [address] [place] [address] Phone #: ext- [phone] 10/19/2020 10:31 Patient: MARVIN LEAHY Sex: M [...] 0.20) 3 Clinical Report - Physicians/Mid Levels [facility] Emergency Department [address] [place] [address] Phone #: ext- [phone] 10/19/2020 10:31 Patient: [...] Male GFR Interprentation 20-49 yrs >60 mL/min Cxyjxo02-42 yrs >56 mL/min Normal 60-69 yrs >49 mL/min Normal 70-79yrs>42 mL/min Normal 80 and above >35 mL/min Normal Female GFRInterpretation 20-39 yrs >60 mL/min Normal 40-49 yrs >58 mL/minNormal 50-59 yrs >51 mL/min Normal 60-69 yrs >45 mL/min Xyvufi48-25 yrs >39 mL/min Normal 80 and above >32 mL/min NormalPT/PTT: (DERRICK: 10/19/2020 11:41) ( MsgRcvd 10/19/2020 11:57) Final results Test Result Flag Units (Reference) PROTIME 14.6 SECONDS (11.0 - 15.5) INR 1.08 (0.93 - 1.23) PTT 28.1 SECONDS (24.8 - 36.7) \\BLDo\\INR INTERPRETATION\\BLDx\\ Therapeutic range for Coumadin andrelated oral anticoagulants. -International Normalized Ratio (INR): 2.0 - 3.0 for VenousThrombosis, Pulmonary Embolus, Tissue heart valves, Acute RI Atrial Fibrillation, Valvular heart diseaseand recurrent Systemic Embolism. -International Normalized Ratio (INR): 2.5 - 3.5 forMechanical Prosthetic valve.Lactic Acid: (DERRICK: 10/19/2020 11:41) ( [facility] 10[facility] 11[facility]52) Final results Test Result Flag Units (Reference) LACTIC ACID 1.0 MMOL/L (0.2 - 2.2)Lipase: (DERRICK: 10/19/2020 11:41) ( [facility] 10/19/2020 12:33) Final results Test Result Flag Units (Reference) LIPASE 35 U/L (13 - 60) 4 Clinical Report - Physicians/Mid Levels [facility] Emergency Department [address] [place] [address] Phone #: ext- [phone] 10/19/2020 10:31 Patient: MARVIN LEAHY Sex: M : 1990 Age: 30y Magnesium: (DERRICK: 10/19/2020 11:41) ( [facility] 10/19/2020 12:33) Final results Test Result Flag Units (Reference) MAGNESIUM 2.1 MG/DL (1.7 - 2.2) Troponin-T: (DERRICK: 10/19/2020 11:41) ( [facility] 10/19/2020 13:24) Final results Test Result Flag Units (Reference) TROPONIN T <0.01 NG/ML (0.00 - 0.10) TROPONIN T0.1 ng/ml Recommended as the clinical threshold value forTroponin TYang TSH: (DERRICK: 10/19/2020 11:41) ( MsgRcvd 10/19/2020 12:33) Final results Test Result Flag Units (Reference) TSH 1.61 uIU/mL (0.47 - 5.01) Urinalysis: (DERRICK: 10/19/2020 11:40) ( MsgRcvd 10/19/2020 12:29) Final results Test Result Flag [...] hematuria 5 Clinical Report - Physicians/Mid Levels [facility] Emergency Department [address] [place] [address] Phone #: ext- [phone] 10/19/2020 10:31 [id number] Sex: M : 1990 Age: 30y Uncontrolled essential hypertension. Chronic nontraumatic lumbar back pain.INSTRUCTIONS No strenuous activity until released. Warnings: Further evaluation is necessary. It is very important to follow up with a healthcare provider. Prescription Medications: gabapentin 100 mg capsule Take 1 capsule three times a day for 30 days -- Dispense 90 capsule. Refills: 0. Sub[facility] permitted. [facility] [address] ; [place] [address]. . Medrol (Duyen) 4 mg tablets in a dose pack Take 1 tablet as directed for 6 days -- Dispense 1 pack. Refills: 0. Substitution permitted. Pharmacy - [facility] [employer] - [address] ; [place] [address]. FaxNumber: . Understanding of the discharge instructions verbalized by patient. Follow- up with: Dylan Shi MD, Cardiology, , [address] [place] [address], [facility] Follow up. Call for the next available appointment. Reason for referral: evaluation, treatment and see your PCM for referral to Cardiology for further evaluation. Summary of care provided to patient. Follow-up with: Benito Willett M.D., Urology, , [address] [place] [address], [facility] Follow up. Call for the next available appointment. Reason for referral: evaluation, treatment and see your PCM for referral to Urology, evaluate Hematuria and Micurition Syncope. Summary of care provided to patient.(Electronically signed by PERLA Cisse 10/19/2020 21:52) Name Value Range Interpretation Code Description Data Marifer rce(s) Supporting Document(s) ID Date Data Source [id number] 10/19/2020 01:24:00 PM EST [facility] Name Value Range Interpretation Code Description Data Marifer rce(s) Supporting Document(s) TROPONIN T <0.01 NG/ML 0.00 - 0.10 [facility] TROPONIN T0.1 ng/ml Recommended as the c linical threshold value Eloyn Bola. ID Date Data Source [id number] 10/19/2020 12:33:00 PM EST [facility] Name Value Range Interpretation Code Description Data Marifer rce(s) Supporting Document(s) COMPREHENSIVE METABOLIC PANEL [facility] COMPREHENSIVE METABOLIC PANEL Sodium [Moles/volume] in Serum or Plasma 140 mEq/L 134 - 153 [facility] Potassium [Moles/volume] in Serum or Plasma 4.1 mEq/L 3.6 - 5.0 [facility] Chloride [Moles/volume] in Serum or Plasma 104 mEq/L 98 - 107 [facility] Carbon dioxide, total [Moles/volume] in Serum or Plasma 33 MEQ/L 22 - 30 H [facility] Glucose [Mass/volume] in Serum or Plasma 66 MG/DL 65 - 110 [facility] BUN 13 MG/DL 7 - 21 [facility] Creatinine [Mass/volume] in Serum or Plasma 1.0 MG/DL 0.7 - 1.5 [facility] BUN/CREAT 13 8 - 27 [facility] al Protein [Mass/volume] in Serum or Plasma 8.0 G/DL 6.3 - 8.2 [facility] Albumin [Mass/volume] in Serum or Plasma 4.4 G/DL 3.9 - 5.0 [facility] Globulin [Mass/volume] in Serum by calculation 3.6 GM/DL 2.4 - 3.2 H [facility] A/G RATIO 1.2 0.8 - 2.0 [facility] Calcium [Mass/volume] in Serum or Plasma 10.0 MG/DL 8.4 - 10.2 [facility] Bilirubin.total [Mass/volume] in Serum or Plasma <0.7 MG/DL 0.2 - 1.3 [facility] Alkaline phosphatase [Enzymatic activity/volume] in Serum or Plasma 63 U/L 38 - 126 [facility] Aspartate aminotransferase [Enzymatic activity/volume] in Serum or Plasma 28 U/L 5 - 40 [facility] Alanine aminotransferase [Enzymatic activity/volume] in Seru m or Plasma 30 U/L 7 - 56 [facility] Anion gap 3 in Serum or Plasma 3.0 mmol/L 8.0 - 16.0 L [facility] AGE 30 yrs [facility] Hospit al NON-AA GFR >60 mL/min [facility] Hosp ital AFR AMER GFR >60 mL/min [facility] Ho spital Male GFR In terprentation 20-49 [...] >32 mL/min Normal ID Date Data Source [id number] 10/19/2020 12:33:00 PM [facility] Name Value Range Interpretation Code Description Data Marifer rce(s) Supporting Document(s) Thyrotropin [Units/volume] in Serum or Plasma by Detec tion limit <= 0.05 mIU/L 1.61 uIU/mL 0.47 - 5.01 [facility] ID Date Data Source [id number] 10/19/2020 12:33:00 PM [facility] Name Value Range Interpretation Code Description Data Marifer rce(s) Supporting Document(s) Magnesium [Mass/volume] in Serum or Plasma 2.1 MG/DL 1.7 - 2.2 [facility] ID Date Data Source [id number] 10/19/2020 12:33:[address] [facility] Value Range Interpretation Code Description Data Marifer rce(s) Supporting Document(s) Lipase [Enzymatic activity/volume] in Serum or Plasma 35 U/L 13 - 60 [facility] ID Date Data Source [id number] 10/19/2020 11:57:00 AM [facility] Name Value Range Interpretation Code Description Data Marifer rce(s) Supporting Document(s) Prothrombin time (PT) 14.6 SECONDS 11.0 - 15.5 [facility] INR in Platelet poor plasma by Coagulation assay 1.08 0.93 - 1. 23 [facility] aPTT in Blood by Coagulation assay 28.1 SECONDS 24.8 - 36.7 [facility] \\BLDo\\INR INTERPRETATION\\BLDx\\ Therapeutic range for Coumadin and related oral anticoagulants. - International Normalized Ratio (INR): 2.0 - 3.0 for Venous Thrombosis, Pulmonary Embolus, Tissue heart valves, Acute RI Atrial Fibrillation, Valvular heart disease and recurrent Systemic Embolism. - International Normalized Ratio (INR): 2.5 - 3.5 for Mechanical Prosthetic valve. ID Date Data Source [id number] 10/19/2020 11:56:00 AM EST [facility] Name Value Range Interpretation Code Description Data Marifer rce(s) Supporting Document(s) CBC W/AUTOMATED DIFF [facility] COMPLETE BLOOD COUNT Leukocytes [#/volume] in Blood by Automated count 4.6 10^3/uL 4.2 - 1 1.0 [facility] Erythrocytes [#/volume] in Blood by Automated count 4.94 10^6/uL 4. 50 - 6.30 [facility] Hemoglobin [Mass/volume] in Blood 14.6 g/dL 14.0 - 16.0 [facility] Hematocrit [Volume Fraction] of Blood by Automated count 43.6 % 4 1.0 - 51.0 [facility] [facility] Erythrocyte mean corpuscular volume [Entitic volume] by Auto mated count 88.3 fL 80.0 - 94.0 [facility] Erythrocyte mean corpuscular hemoglobin [Entitic mass] by Automated count 29.6 pg 27.0 - 34.0 [facility] Erythrocyte mean corpuscular hemoglobin concentration [Mass/volume] by Automated count 33.5 g/dL 31.0 - 36.0 [facility] Erythrocyte distribution width [Ratio] by Automated count 12.2 % 11.5 - 14.8 [facility] Platelets [#/volume] in Blood by Automated count 196 10^3/uL 150 - 45 0 [facility] Platelet mean volume [Entitic volume] in Blood by Automated count 10.4 fL 7.4 - 10.4 [facility] Neutrophils/100 leukocytes in Blood by Automated count 46.2 % 37. 0 - 80.0 [facility] Lymphocytes/100 leukocytes in Blood by Manual count 41.5 % 25.0 - 40.0 H [facility] Monocytes/100 leukocytes in Blood by Automated count 9.2 % 3.0 - 8.0 H [facility] Eosinophils/100 leukocytes in Blood by Automated count 2.0 % 0.0 - 7.0 [facility] Basophils/100 leukocytes in Blood by Automated count 0.7 % 0.0 - 2.0 [facility] %IG 0.4 % 0.0 - 0.0 H [facility] Hospit al %NRBC 0.0 % 0.0 - 0.0 [facility] al Neutrophils [#/volume] in Blood by Automated count 2.12 10^3/uL 2.00 - 6.90 [facility] Lymphocytes [#/volume] in Blood by Automated count 1.90 10^3/uL 0.60 - 3.40 [facility] Monocytes [#/volume] in Blood by Automated count 0.42 10^3/uL 0.00 - 0.90 [facility] Eosinophils [#/volume] in Blood by Automated count 0.09 10^3/uL 0.00 - 0.70 [facility] Basophils [#/volume] in Blood by Automated count 0.03 10^3/uL 0.00 - 0.20 [facility] #IG 0.02 10^3/uL 0.00 - 0.10 [facility] #NRBC 0.00 10^3/uL 0.00 - 0.00 [facility] MANUAL DIFF NOT INDICATED [facility] RBC MORPH NOT INDICATED [facility] ID Date Data Source [id number] 10/19/2020 11:52:00 AM EST [facility] Name Value Range Interpretation Code Description Data Marifer rce(s) Supporting Document(s) Lactate [Moles/volume] in Serum or Plasma 1.0 MMOL/L 0.2 - 2.2 [facility] ID Date Data Source [id number] 10/19/2020 12:26:00 PM EST [facility] Name Value Range Interpretation Code Description Data Marifer rce(s) Supporting Document(s) URINALYSIS [facility] Hos[facility] albin URINALYSIS SOURCE R [facility] al COLOR yellow NORMAL: Yellow [facility] CLARITY clear NORMAL: Clear [facility] Specific gravity of Urine by Test strip 1.020 1.001 - 1.030 [facility] pH 7 5 - [facility] Gl[facility] [Mass/volume] in Urine by Test strip NORM NORMAL: Negat [facility] Bilirubin.total [Presence] in Urine by Test strip NEG NORMAL: Negative [facility] Ketones [Presence] in Urine by Test strip NEG NORMAL: Negative [facility] Protein [Mass/volume] in Urine by Test strip NEG NORMAL: Negat [facility] Nitrite [Presence] in Urine by Test strip NEG NORMAL: Negative [facility] BLOOD 10 NORMAL: Negative [facility] Leukocyte esterase [Presence] in Urine by Test strip NEG LLUVIA L: Negative [facility] Urobilinogen [Mass/volume] in Urine by Test strip NOR less fidelia n 1.0 mg/dL [facility] MICROSCOPIC See Below [facility] ital Erythrocytes [#/volume] in Urine by Test strip 1 - 3 NORMAL: NON E SEEN [facility] ID Date Data Source [id number] 09/18/2020 08:57:00 AM EST [facility] [address] [place] [address] PHONE: [phone] FAX: [phone] Name .................. : TOSIN Rivera Acct Number.................. : [id number] ROOM. ................. : TR-07 MR Number ................... : [id number] Stay type ............. : E/R Discharge Date......... ... : Admit Date ......... : 09/17/20 Admit Phys .................... : SAMANTHA OLVERA Date of ....... : 1990 Family Phys ................... : Phone .................. : [phone] Age ................................ : 30 Film# .................. .:[id number] Sex ................................. : M Unsigned transcriptions are preliminary reports and do not represent a medical or legal document CT LUMBAR SP W/O CONT [id number] COMPLETE:09/17/20 09:16 [id number] Reason(s): exacerbation of left lower back pain, [...] 710 MED REC Page 1 of 2 [facility] [address] [place] [address] PHONE: [phone] FAX: [phone] Name .................. : TOSIN Rivera Acct Number.................. : [id number] ROOM. ................. : TR-07 MR Number ................... : [id number] Stay type ............. : E/R Discharge Date......... ... : Admit Date ......... : 09/17/20 Admit Phys .................... : SAMANTHA OLVERA Date of ....... : 1990 Family Phys ................... : Phone .................. : [phone] Age ................................ : 30 Film# .................. .:[id number] Sex ................................. : M Unsigned transcriptions are preliminary reports and do not represent a medical or legal document CT LUMBAR SP W/O CONT [id number] COMPLETE:09/17/20 09:16 [id number] Reason(s): exacerbation of left lower back pain, soft tissue swelling, spas DISCHARGED Page 2 of 2 Name Value Range Interpretation Code Description Data Marifer rce(s) Supporting Document(s) ID Date Data Source [id number] 09/17/2020 08:46:00 AM EST [facility] 1 OrderSheet [facility] Emergency Department [address] [place] [address] Phone #: [phone]- [phone] 09/17/2020 08:44 Patient: MARVIN LEAHY Sex: M [...] 09:16 09/17/2020 09:24 Velma Frank(HIGH ALERT Evelio Luan RNMEDICATION) Bharat;Lidocaine Patch 09:16 09/17/2020 09:24 Una Frank (Patch 5 %) Evelio Luna RN1 Patch (On for 12 M.D.;hours, off for 12hours.)GENERAL ORDERSOrder Description Priority Entered Acknowledged Initialed[Electronically signed by Evelio Luna M.D. (12:45 09/17/2020)][Electronically signed by Tom English R.N. (14:16 09/17/2020)][Electronically locked by Tom English R.N. (14:16 09/17/2020)] Name Value Range Interpretation Code Description Data Marifer rce(s) Supporting Document(s) ID Date Data Source [id number] 09/17/2020 08:46:00 AM [facility] 1 Medication Reconciliation Report [facility] Emergency Department [address] [place] [address] Phone #: ext- [phone] 09/17/2020 08:44 Patient: MARVIN LEAHY Sex: M [...] tablet. Refills: 0. Substitution permi tted.Pharmacy - [facility] [phone] ; [place] [address]. . -- Evelio Luna M.D. Name Value Range Interpretation Code Description Data Marifer rce(s) Supporting Document(s) ID Date Data Source [id number] 09/17/2020 08:46:00 AM [facility] 1 Medication Administration Record [facility] Emergency Department [address] [place] [address] Phone #: ext- [phone] 09/17/2020 08:44 Patient: MARVIN LEAHY Sex: M : 1990 Age: 30yWeight: 88.4 kgHeight/Length: 68 inBMI: 29.6ALLERGIES: Seafood Date/Time Medication Administered Medication OrderedGiven MORPHINE [IM] Morphine IM 4 mg (HIGH ALERT09:24 09/17/2020 Dose: 4 mg IM MEDICATION)Velma Frank RNGiven LIDOCAINE PATCH Lidocaine Patch Topical (Patch 509:24 09/17/2020 Dose: 1 patch Transdermal %) 1 Patch (On for 12 hours, offVelma Frank RN for 12 hours.) Name Value Range Interpretation Code Description Data Marifer rce(s) Supporting Document(s) ID Date Data Source [id number] 09/17/2020 08:46:00 AM EST [facility] 1 General Instructions [facility] Emergency Department [address] [place] [address] Phone #: ext- [phone] 09/17/2020 08:44 Patient: MARVIN LEAHY Sex: M [...] 12 tablet. Refills: 0. Substitution permitted.Pharmacy - [facility] [phone] ; [place] [address]. .Follow-up:Return to the emergency department as needed. [...] to plan of care. 2 General Instructions [facility] Emergency Department [address] [place] [address] Phone #: ext- [phone] 09/17/2020 08:44 Patient: MARVIN LEAHY Sex: M [...] can cause muscle spasm. 3 General Instructions [facility] Emergency Department [address] [place] [address] Phone #: ext- [phone] 09/17/2020 08:44 Patient: [...] and pain. Wrap the 4 General Instructions [facility] Emergency Department [address] [place] [address] Phone #: ext- [phone] 09/17/2020 08:44 Patient: [...] or are takingother medicines. You may use [id number] medicine as directed on the bottle to [...] any new findingsthat may affect your care.Call [phone] if any of the following occur: Trouble breathing Confusion Very drowsy or trouble awakening Fainting or loss of consciousness 5 General Instructions [facility] Emergency Department [address] [place] [address] Phone #: [phone]- [phone] 09/17/2020 08:44 Patient: MARVIN LEAHY Sex: M : 1990 Age: 30y Rapid or very slow heart rate Loss of bowel or bladder controlWhen to seek medical adviceCall your healthcare provider right away if any of these occur: Pain becomes worse or spreads to your legs Weakness or numbness in one or both legs Numbness in the groin or genital area [id number] [employer]. [address] [place] [address], [place] [address]. All rights reserved. This information is not [...] rce(s) Supporting Document(s) ID Date Data Source [id number] 09/17/2020 08:46:00 AM EST [facility] 1 Clinical Report - Nurses [facility] Emergency Department [address] [place] [address] Phone #: ext- [phone] 09/17/2020 08:44 Patient: [...] leg pain. 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 Sepsis Screen negative. No suspected or confirmed signs ofinfection present. (08:53 09/17/2020). --08:54 09/17/20 Jennifer Nagy R.N.08:46 09/17/20. BP: 122/73. MAP: 89. HR: 66. RR: 18. O2 saturation: 100% on room air. Temp: 98.1 F.Pain level now: 07/19. --08:54 09/17/20 Jennifer Nagy R.N.Weight: 88.4 kg stated. Height/Length: 68 inches Per Patient. BMI: 29.6. --08:44 11/9/20 Jennifer Nagy R.N.MedicationsApixaban Oral (Tablet 5 mg) [...] 09:21 09/17/20 2 Clinical Report - Nurses [facility] Emergency Department [address] [place] [address] Phone #: ext- [phone] 09/17/2020 08:44 Patient: [...] pedal pulses 3 Clinical Report - Nurses [facility] Emergency Department [address] [place] [address] Phone #: ext- [phone] 09/17/2020 08:44 Patient: MARVIN LEAHY Sex: M [...] RR: 16. O2 saturation: 99%. --09:21 09/17/20 [place] metal polisher, [facility], Tech1 09:24 09/17/2020 Morphine IM 4 mg [...] this medication. Verbalizes understanding. --09:24 09/17/20 Velma Frank, PATSY Patient transported to radiology by wheelchair with environmental monitoring technician. --09:35 09/17/20 Jennifer Nagy R.N. Patient returned by wheelchair with environmental monitoring technician. --09:45 09/17/20 Jennifer Nagy R.N. 09:58 09/17/2020 Morphine IM Response: no adverse reaction pain is improving. Symptoms have improved the patient feels better. --09:58 09/17/20 Jennifer Nagy R.N. 09:58 09/17/2020 Lidocaine Patch Transdermal Response: no adverse reaction pain is improving. Symptoms have improved the patient feels better. --:58 09/17/20 Jennifer Nagy R.N. Reassessment acuity: LEVEL [...] pain is sti ll present but improving. --:58 09/17/20 Jennifer Nagy R.N. 09:56 09/17/20. BP: 133/76. MAP: 95. HR: 64. RR: 18. O2 saturation: 100% on room air. Pain level now 04/18. --:58 09/17/20 Jennifer aNgy R.N. 4 Clinical Report - Nurses [facility] Emergency Department [address] [place] [address] Phone #: ext- [phone] 09/17/2020 08:44 Patient: MARVIN LEAHY Sex: M : 1990 Age: 30y 09:59 09/17/20. BP: 133/72. MAP: 92. HR: 66. RR: 16. O2 saturation: 100%. --09:59 09/17/20 Verónica Hallman ED, ER Tech 11:03 09/17/20. Reassurance given. Reassessment acuity: LEVEL [...] RR: 16. O2 saturation: 100%. --11:06 09/17/20 [facility] Tech, Verónica, ER Tech1.DISPOSITION / DISCHARGE 12:07 09/17/20. BP: 129/84. MAP: 99. HR: 57. RR: 16. O2 saturation: 99%. Temp: 98.1 F. Pain level now: 01/16. --12:07 09/17/20 [facility] Tech, Verónica, ER Tech1 12:12 09/17/20. Departure time: 12:18 09/17/2020. [...] Patient verbalized understanding. Written instructions provided in Iranian. The patient was discharged by the physician. He was discharged home. He left ambulatory and via private vehicle. Patient driving. --12:18 09/17/20 Tom English R.N. Reviewed rest and ice instructions. Activity restrictions (rest) reviewed. --12:20 09/17/20 Tom English R.N.Locked/Released at 09/17/2020 14:16 by Tom English R.N. Name Value Range Interpretation Code Description Data Marifer rce(s) Supporting Document(s) ID Date Data Source [id number] 09/17/2020 08:46:00 AM [facility] 1 Clinical Report - Physicians/Mid Levels [facility] Emergency Department [address] [place] [address] Phone #: ext- [phone] 09/17/2020 08:44 Patient: [...] Allergies: 2 Clinical Report - Physicians/Mid Levels [facility] Emergency Department [address] [place] [address] Phone #: ext- [phone] 09/17/2020 08:44 Patient: [...] improved; 3 Clinical Report - Physicians/Mid Levels [facility] Emergency Department [address] [place] [address] Phone #: ext- [phone] 09/17/2020 08:44 Patient: [...] tablet. Refills: 0. Substitution permitted. Pharmacy - [facility] [phone] ; [place] [address]. . Follow-up: Return to the emergency department [...] care. 4 Clinical Report - Physicians/Mid Levels [facility] Emergency Department [address] [place] [address] Phone #: ext- [phone] 09/17/2020 08:44 Patient: MARVIN LEAHY Sex: M : 1990 Age: 30y(Electronically signed by Evelio Luna M.D. 09/17/2020 12:45) Name Value Range Interpretation Code Description Data Marifer rce(s) Supporting Document(s) Procedure Social History Code Duration Value Status Description Data Source(s ) Smoking 07/30/2021 12:00:00 AM EDT Never Smoker completed Never S moker eCW1 ([facility]) Smoking 07/16/2021 12:00:00 AM EDT Never Smoker completed Never S moker eCW1 ([facility]) Alcohol intake 06/07/2021 12:00:00 AM EDT Current drinker of al cohol (finding) completed Current drinker of alcohol (finding) [facility] Tobacco use and exposure 06/07/2021 12:00:00 AM EDT Never used co mpleted Never used [facility] Smoking 06/07/2021 12:00:00 AM EDT Never smoker completed Never s azker [facility] Alcohol intake 04/19/2021 12:00:00 AM EDT Current drinker of al cohol (finding) completed Current drinker of alcohol (finding) [facility] Alcohol intake 03/22/2021 12:00:00 AM EDT Current drinker of al cohol (finding) completed Current drinker of alcohol (finding) [facility] Alcohol intake 03/07/2021 12:00:00 AM EDT Current drinker of al cohol (finding) completed Current drinker of alcohol (finding) [facility] Smoking 02/06/2021 12:00:00 AM EDT Never Smoker completed Never S moker eCW1 ([facility]) Smoking 02/06/2021 12:00:00 AM EDT Never Smoker completed Never S moker eCW1 ([facility]) Smoking 01/23/2021 12:00:00 AM EDT Never Smoked A Pipe complet ed Never Smoked A Pipe [facility] ([facility]) Smoking 01/23/2021 12:00:00 AM EDT Never Smoker completed Never S moker eCW1 ([facility]) Alcohol intake 11/22/2020 12:00:00 AM EST Current drinker of al cohol (finding) completed Current drinker of alcohol (finding) [facility] Smoking 11/15/2020 12:00:00 AM EST Never Smoker completed Never S moker eCW1 ([facility]) Smoking 10/30/2020 12:00:00 AM EST Never Smoker completed Never S moker eCW1 ([facility]) Smoking 10/30/2020 12:00:00 AM EST Never Smoker completed Never S moker eCW1 ([facility]) Smoking 10/18/2020 12:00:00 AM EST Never Smoker completed Never S moker eCW1 ([facility]) Smoking 10/18/2020 12:00:00 AM EST Never Smoker completed Never S moker eCW1 ([facility]) Smoking 10/18/2020 12:00:00 AM EST Never Smoker completed Never S moker eCW1 ([facility]) Vital Signs ID Date Data Source UNK Name Value Range Interpretation Code Description Data Source(s) Systolic blood pressure 125 mm[Hg] 125 mm[Hg] M [facility] ([facility]) Diastolic blood pressure 69 mm[Hg] 69 mm[Hg] [facility] ([facility]) Body height 68 [in_i] 68 [in_i] [facility] ([facility]) 5'8" Body weight 222.00 [lb_av] 222.00 [lb_av] [facility] Body mass index (BMI) [Ratio] 33.8 kg/m2 33.8 k g/m2 [facility] ([facility]) [place] body weight 154 [lb_av] 154 [lb_av] [facility]) Body weight 100.699 [address] [facility] ([facility]) Body surface area Derived from formula 2.14 m2 [address] [facility] ([facility]) Systolic blood pressure 122 mm[Hg] 122 mm[Hg] M [facility] ([facility]) Diastolic blood pressure 78 mm[Hg] 78 mm[Hg] [facility] ([facility]) Heart rate 69 /min 69 /min [facility] ([facility]) Body temperature 96.5 [degF] 96.5 [degF] [facility] ([facility]) Respiratory rate 16 /min 16 /min [facility] ( [facility]) Oxygen saturation in Arterial blood by Pulse oximetry 98 % 98 % [facility] ([facility]) Body weight 222.00 [lb_av] 222.00 [lb_av] [facility] T ([facility]) Body weight 100.699 kg 100.699 kg [facility] ([facility]) Body height 68 [in_i] 68 [in_i] [facility] ([facility]) 5'8" Body mass index (BMI) [Ratio] 33.8 kg/m2 33.8 k g/m2 [facility] ([facility]) Body surface area Derived from formula 2.14 m2 2.14 m2 [facility] ([facility]) Body weight 216.4 [lb_av] 216.4 [lb_av] eCW1 ([facility]) Body weight 98.16 kg 98.16 kg W1 ([facility]) Body height 68 [in_i] 68 [in_i] eCW1 ([facility]) Body mass index (BMI) [Ratio] 32.90 kg/m2 32.90 kg/m2 W1 ([facility]) Body weight 219.0 [lb_av] 219.0 [lb_av] eCW1 ([facility]) Body weight 99.34 kg 99.34 kg eCW1 ([facility]) Body height 68 [in_i] 68 [in_i] eCW1 ([facility]) Body mass index (BMI) [Ratio] 33.30 kg/m2 33.30 kg/m2 W1 ([facility]) Systolic blood pressure 123 mm[Hg] 123 mm[Hg] e CW1 ([facility]) Diastolic blood pressure 81 mm[Hg] 81 mm[Hg] eCW1 ([facility]) Systolic blood pressure 120 mm[Hg] 120 mm[Hg] M [facility] ([facility]) Diastolic blood pressure 73 mm[Hg] 73 mm[Hg] [facility] ([facility]) Body temperature 97.8 [degF] 97.8 [degF] [facility] ([facility]) Heart rate 83 /min 83 /min [facility] ([facility]) Respiratory rate 20 /min 20 /min [facility] ( [facility]) Oxygen saturation in Arterial blood by Pulse oximetry 97 % 97 % [facility] ([facility]) Systolic blood pressure 121 mm[Hg] 121 mm[Hg] M [facility] ([facility]) Diastolic blood pressure 70 mm[Hg] 70 mm[Hg] [facility] ([facility]) Heart rate 98 /min 98 /min [facility] ([facility]) Respiratory rate 22 /min 22 /min [facility] ( [facility]) Oxygen saturation in Arterial blood by Pulse oximetry 97 % 97 % [facility] ([facility]) Body weight 209.8 [lb_av] 209.8 [lb_av] W1 ([facility]) Body height 68 [in_i] 68 [in_i] W1 ([facility]) Body mass index (BMI) [Ratio] 31.90 kg/m2 31.90 kg/m2 W1 ([facility]) Systolic blood pressure 122 mm[Hg] 122 mm[Hg] e CW1 ([facility]) Diastolic blood pressure 80 mm[Hg] 80 mm[Hg] W1 ([facility]) Oxygen saturation in Arterial blood by Pulse oximetry 98 % 98 % [facility] ([facility]) Body weight 205.12 [lb_av] 205.12 [lb_av] [facility] T ([facility]) Body weight 93.045 kg 93.045 kg [facility] ([facility]) Systolic blood pressure 110 mm[Hg] 110 mm[Hg] M [facility] ([facility]) Diastolic blood pressure 70 mm[Hg] 70 mm[Hg] [facility] ([facility]) Heart rate 84 /min 84 /min [facility] Body temperature 97.7 [degF] 97.7 [degF] [facility] ([facility]) Respiratory rate 16 /min 16 /min [facility] ( [facility]) Body weight 209.8 [lb_av] 209.8 [lb_av] eCW1 ([facility]) Body height 68 [in_i] 68 [in_i] W1 ([facility]) Body mass index (BMI) [Ratio] 31.90 kg/m2 31.90 kg/m2 eCW1 ([facility]) Systolic blood pressure 118 mm[Hg] 118 mm[Hg] e CW1 ([facility]) Diastolic blood pressure 74 mm[Hg] 74 mm[Hg] eCW1 ([facility]) Systolic blood pressure 118 mm[Hg] 118 mm[Hg] M [facility]ENT ([facility]) Diastolic blood pressure 61 mm[Hg] 61 mm[Hg] [facility] ([facility]) Heart rate 67 /min 67 /min [facility] ([facility]) Respiratory rate 20 /min 20 /min [facility] ( [facility]) Oxygen saturation in Arterial blood by Pulse oximetry 98 % 98 % [facility] ([facility]) Systolic blood pressure 120 mm[Hg] 120 mm[Hg] M [facility]ENT ([facility]) Diastolic blood pressure 70 mm[Hg] 70 mm[Hg] [facility] ([facility]) Heart rate 88 /min 88 /min [facility] ([facility]) Respiratory rate 16 /min 16 /min [facility] ( [facility]) Oxygen saturation in Arterial blood by Pulse oximetry 96 % 96 % [facility] ([facility]) Body weight 205.00 [lb_av] 205.00 [lb_av] MED[facility] T ([facility]) Body weight 92.988 kg 92.988 kg [facility] ([facility]) Body height 68 [in_i] 68 [in_i] [facility] ([facility]) 5'8" Body mass index (BMI) [Ratio] 31.2 kg/m2 31.2 k g/m2 [facility] ([facility]) Body surface area Derived from formula 2.07 m2 2.07 m2 [facility] ([facility]) Body weight 213.00 [lb_av] 213.00 [lb_av] [facility] T (Dylan Shi MD) Heart rate 95 /min 95 /min [facility] (Dylan Shi MD) Oxygen saturation in Arterial blood by Pulse oximetry 98 % 98 % [facility] (Dylan Shi MD) Body height 68 [in_i] 68 [in_i] [facility] (Dylan Shi MD) 5'8" Body mass index (BMI) [Ratio] 32.4 kg/m2 32.4 k g/m2 [facility] (Dylan Shi MD) Body temperature 97.9 [degF] 97.9 [degF] [facility] (Dylan Shi MD) Systolic blood pressure 133 mm[Hg] 133 mm[Hg] M [facility]ENT (Dylan Shi MD) Diastolic blood pressure 92 mm[Hg] 92 mm[Hg] [facility] (Dylan Shi MD) Body weight 210 [lb_av] 210 [lb_av] eCW1 ([facility]) Body height 68 [in_i] 68 [in_i] eCW1 ([facility]) Body mass index (BMI) [Ratio] 31.93 kg/m2 31.93 kg/m2 eCW1 ([facility]) Systolic blood pressure 113 mm[Hg] 113 mm[Hg] e CW1 ([facility]) Diastolic blood pressure 75 mm[Hg] 75 mm[Hg] eCW1 ([facility]) Systolic blood pressure 133 mm[Hg] 133 mm[Hg] M [facility] ([facility]) Diastolic blood pressure 75 mm[Hg] 75 mm[Hg] [facility] ([facility]) Heart rate 79 /min 79 /min [facility] ([facility]) Respiratory rate 20 /min 20 /min [facility] ( [facility] [facility]) Oxygen saturation in Arterial blood by Pulse oximetry 97 % 97 % MEDENT ([facility]) Body temperature 97.3 [degF] 97.3 [degF] MEDENT (Dylan Shi MD) Systolic blood pressure 131 mm[Hg] 131 mm[Hg] M EDENT (Dylan Shi MD) Diastolic blood pressure 86 mm[Hg] 86 mm[Hg] MEDENT (Dylan Shi MD) Body height 68 [in_i] 68 [in_i] STEVENENT (Dylan Shi MD) 5'8" Body weight 210.00 [lb_av] 210.00 [lb_av] MEDEN T (Dylan Shi MD) Body mass index (BMI) [Ratio] 31.9 kg/m2 31.9 k g/m2 MED[facility] (Dylan Shi MD) Heart rate 86 /min 86 /min MEDENT (Dylan Shi MD) Oxygen saturation in Arterial blood by Pulse oximetry 98 % 98 % MEDENT (Dylan Shi MD) Body weight 206.8 [lb_av] 206.8 [lb_av] W1 ([facility]) Body height 68 [in_i] 68 [in_i] W1 ([facility]) Body mass index (BMI) [Ratio] 31.44 kg/m2 31.44 kg/m2 eCW1 ([facility]) Systolic blood pressure 122 mm[Hg] 122 mm[Hg] e CW1 ([facility]) Diastolic blood pressure 78 mm[Hg] 78 mm[Hg] eCW1 ([facility]) Body weight 207.6 [lb_av] 207.6 [lb_av] eCW1 ([facility]) Body height 68 [in_i] 68 [in_i] eCW1 ([facility]) Body mass index (BMI) [Ratio] 31.56 kg/m2 31.56 kg/m2 eCW1 ([facility]) Systolic blood pressure 112 mm[Hg] 112 mm[Hg] e CW1 ([facility]) Diastolic blood pressure 72 mm[Hg] 72 mm[Hg] eCW1 ([facility]) Systolic blood pressure 110 mm[Hg] 110 mm[Hg] M EDENT ([facility]) Diastolic blood pressure 82 mm[Hg] 82 mm[Hg] MEDENT ([facility]) Heart rate 87 /min 87 /min MEDENT ([facility]) Body temperature 97.8 [degF] 97.8 [degF] MEDENT ([facility]) Respiratory rate 16 /min 16 /min [facility] ( [facility]) Oxygen saturation in Arterial blood by Pulse oximetry 98 % 98 % MEDENT ([facility]) Body weight 200.25 [lb_av] 200.25 [lb_av] MEDEN T ([facility]) Body weight 90.833 kg 90.833 kg MEDENT ([facility]) Body height 68 [in_i] 68 [in_i] [facility] ([facility]) 5'8" Body mass index (BMI) [Ratio] 30.4 kg/m2 30.4 k g/m2 [facility] ([facility]) Body surface area Derived from formula 2.04 m2 [address] [facility] ([facility]) ID Date Data Source [id number] 04/19/2021 01:03:17 PM EDT [facility] Name Value Range Interpretation Code Description Data Source(s) Body height Measured 67.99 in 67.99 in [facility] ID Date Data Source [id number] 04/02/2021 09:10:27 PM EDT [facility] Name Value Range Interpretation Code Description Data Source(s) WEIGHT RECORDED 200.[address] [facility] Body height Measured 68 in 68 in [facility] ID Date Data Source [id number] 03/11/2021 08:26:17 AM EDT [facility] Name Value Range Interpretation Code Description Data Source(s) WEIGHT RECORDED 199.[address] [facility] Body height Measured 68.11 in 68.11 in [facility] TRANSFER FROM [facility] ID Date Data Source [id number] 04/02/2021 07:40:24 PM EDT [facility] Name Value Range Interpretation Code Description Data Source(s) WEIGHT RECORDED 200.00 pounds 200.00 pounds [facility] Height 68 Inches 068 Inches [facility] ID Date Data Source [id number] 02/12/2021 01:04:37 PM EDT [facility] Name Value Range Interpretation Code Description Data Source(s) WEIGHT RECORDED 205.00 pounds 205.00 pounds [facility] Height 68 Inches 068 Inches [facility] ID Date Data Source [id number] 01/15/2021 12:37:23 PM EST [facility] Name Value Range Interpretation Code Description Data Source(s) WEIGHT RECORDED 207.00 pounds 207.00 pounds [facility] Height 68 Inches 068 Inches [facility] Patient Treatment Plan of Care Planned Activity Planned Date Details Description Data Source (s) cetirizine hydrochloride 10 MG Oral Tablet 07/30/2021 12:00:00 AM E DT eC1 ([facility]) Hydroxyzine Hydrochloride 25 MG Oral Tablet 07/16/2021 12:00:00 AM [place] [id number] ([facility]) pantoprazole 40 MG Delayed Release Oral Tablet 06/05/2021 12:00:00 AM [facility] Chorionic Gonadotropin 23539 UNT/ML Injectable Solutio n 05/15/2021 12:00:00 AM [facility] Clobetasol Propionate 0.5 MG/ML Topical Cream 04/01/2021 12:00:00 A M [facility] apixaban 2.5 MG Oral Tablet 04/01/2021 12:00:00 AM [facility] quetiapine 50 MG Oral Tablet 04/01/2021 12:00:00 AM [facility] Ondansetron 4 MG Disintegrating Oral Tablet 03/22/2021 03:43:19 PM [facility] acetaminophen (TYLENOL) tablet 650 mg 03/22/2021 03:42:40 PM [facility] Sodium Chloride 0.111 MEQ/ML Nasal Solution 03/22/2021 03:39:25 PM [facility] Phenazopyridine hydrochloride 200 MG Delayed Release O ral Tablet 03/08/2021 12:00:00 AM [facility] Hydroxyzine Hydrochloride 50 MG Oral Tablet 03/07/2021 01:59:51 AM [facility] Melatonin 5 MG Oral Tablet 03/07/2021 01:59:43 AM [facility] Aluminum Hydroxide 40 MG/ML / Magnesium Hydroxide 40 MG/ML / Simethicone 4 MG/ML Oral Suspension 03/07/2021 01:59:34 AM EDT [facility] Ondansetron 4 MG Disintegrating Oral Tablet 03/07/2021 01:59:29 AM [facility] Magnesium Hydroxide 80 MG/ML Oral Suspension 03/07/2021 01:59:26 AM [facility] Acetaminophen 325 MG Oral Tablet 03/07/2021 01:59:13 AM [facility] Syringe 22G X 1" 3 ML 02/27/2021 12:00:00 AM [facility] Chorionic Gonadotropin 25974 UNT/ML Injectable Solutio n 02/27/2021 12:00:00 AM [facility] Chorionic Gonadotropin 49145 UNT/ML Injectable Solutio n 11/28/2020 12:00:00 AM [facility] Escitalopram 20 MG Oral Tablet 11/07/2020 12:00:00 AM [facility] Trazodone Hydrochloride 50 MG Oral Tablet 11/07/2020 12:00:00 AM [facility] apixaban 5 MG Oral Tablet 11/07/2020 12:00:00 AM [facility] HM LIDOCAINE PATCH EX 11/07/2020 12:00:00 AM [facility] Xolair 150 MG/ML 10/19/2020 12:00:00 AM EST eCW1 ([facility]) Xolair 150 MG/ML 10/19/2020 12:00:00 AM [facility] eCW1 ([facility]) Xolair 150 MG/ML 10/19/2020 12:00:00 AM EST eC ([facility]) Divalproex Sodium 250 MG Delayed Release Oral Tablet [facility] Escitalopram 10 MG Oral Tablet [facility] Naproxen 500 MG Oral Tablet [facility] Acetaminophen 325 MG / Hydrocodone Bitartrate 5 MG Oral Tablet [facility] Acetaminophen 500 MG Oral Tablet [facility] Ivermectin 10 MG/ML Topical Cream [facility]
[2021-10-14 11:58] VITALS: BP 148/73
--- OUTSIDE RECORDS SUMMARY | 2021-10-14 13:06 | CCD ---
Author Author [facility] Organization [facility] Address Unknown Phone Unavailable Care Team Providers Care Bean Weigher Name Role Phone Yazmin BENZ MD Unavailable [...] T BENITO MD Unavailable Unavailable OBEN, T BNEITO MD Unavailable Unavailable OBEN, T BENITO MD [...] Unavailable SUSIE, L LLUVIA MD Unavailable Unavailable [place] Falanga, A Cari MECHANICAL COMMISSIONING ENGINEER Unavailable Unavailable [place] Falanga, A Cari MECHANICAL COMMISSIONING ENGINEER Unavailable Unavailable Oscar Falanga, A Cari MECHANICAL COMMISSIONING ENGINEER Unavailable Unavailable Oscar Falanga, A Cari MECHANICAL COMMISSIONING ENGINEER Unavailable Unavailable [place] Falanga, A Cari MECHANICAL COMMISSIONING ENGINEER Unavailable Unavailable [place] Falanga, A Cari MECHANICAL COMMISSIONING ENGINEER Unavailable Unavailable [place] Falanga, A Cari MECHANICAL COMMISSIONING ENGINEER Unavailable Unavailable Oscar Falanga, A Cari MECHANICAL COMMISSIONING ENGINEER Unavailable Unavailable Oscar Falanga, A Cari MECHANICAL COMMISSIONING ENGINEER Unavailable Unavailable Oscar Falanga, A Cari MECHANICAL COMMISSIONING ENGINEER Unavailable Unavailable [place] Falanga, A Cari MECHANICAL COMMISSIONING ENGINEER Unavailable Unavailable [place] Falanga, A Cari MECHANICAL COMMISSIONING ENGINEER Unavailable Unavailable [place] Falanga, A Cari MECHANICAL COMMISSIONING ENGINEER Unavailable Unavailable Oscar Falanga, A Cari MECHANICAL COMMISSIONING ENGINEER Unavailable Unavailable Oscar Falanga, A Cari MECHANICAL COMMISSIONING ENGINEER Unavailable Unavailable Oscar Falanga, A Cari MECHANICAL COMMISSIONING ENGINEER Unavailable Unavailable [place] Falanga, A Cari MECHANICAL COMMISSIONING ENGINEER Unavailable Unavailable [place] Falanga, A Cari MECHANICAL COMMISSIONING ENGINEER Unavailable Unavailable [place] Falanga, A Cari MECHANICAL COMMISSIONING ENGINEER Unavailable Unavailable Oscar Falanga, A Cari MECHANICAL COMMISSIONING ENGINEER Unavailable Unavailable [place] Falanga, A Cari MECHANICAL COMMISSIONING ENGINEER Unavailable Unavailable [place] Falanga, A Cari MECHANICAL COMMISSIONING ENGINEER Unavailable Unavailable [place] Falanga, A Cari MECHANICAL COMMISSIONING ENGINEER Unavailable Unavailable [place] Falanga, A Cari MECHANICAL COMMISSIONING ENGINEER Unavailable Unavailable Oscar Falanga, A Cari MECHANICAL COMMISSIONING ENGINEER Unavailable Unavailable Oscar Falanga, A Cari MECHANICAL COMMISSIONING ENGINEER Unavailable Unavailable Oscar Falanga, A Cari MECHANICAL COMMISSIONING ENGINEER Unavailable Unavailable Oscar Falanga, A Cari MECHANICAL COMMISSIONING ENGINEER Unavailable Unavailable Oscar Falanga, A Cari MECHANICAL COMMISSIONING ENGINEER Unavailable Unavailable Oscar Falanga, A Cari MECHANICAL COMMISSIONING ENGINEER Unavailable Unavailable REINDL, EFRAIN PRICE Unavailable [...] Unavailable JAZMIN, MAQBOOL DYLAN MD Unavailable Unavailable AJZMIN, MAQBOOL DYLAN MD Unavailable Unavailable JAZMIN, MAQBOOL [...] BENITO MD Unavailable Unavailable Isabel Sutherland Unavailable [phone] Isabel Sutherland Unavailable [phone] Isabel Sutherland Unavailable [phone] Isabel Sutherland Unavailable [phone] Isabel Sutherland Unavailable [phone] Isabel Sutherland Unavailable [phone] Sutherland, J Mike PA Unavailable [phone] Isabel Sutherland Mike PA Unavailable [phone] Isabel Sutherland Mike PA Unavailable [phone] Isabel Sutherland Mike PA Unavailable [phone] Isabel Sutherland Mike PA Unavailable [phone] Isabel Sutherlandrick PA Unavailable [phone] Isabel Sutherlandrick PA Unavailable [phone] Millicent DAVID MD Unavailable Unavailable Millicent DAVID [...] KIARA, Benjy Hall MD Unavailable Unavailable KIARA, Bnejy Hall MD Unavailable Unavailable KIARA, Benjy Hall MD Unavailable Unavailable KIARA, C Isabel PRICE Unavailable Unavailable KIARA, Benjy Hall MD Unavailable Unavailable KIARA, C Isaebl PRICE Unavailable Unavailable KIARA, C Isabel PRICE Unavailable Unavailable KIARA, C Isabel PRICE Unavailable Unavailable KIARA, C Isabel PRICE Unavailable Unavailable KIARA, Benjy Hall MD Unavailable Unavailable KIARA, Benjy Hall MD Unavailable Unavailable KIARA, Benjy Hall MD Unavailable Unavailable KIARA, Benjy Hall MD Unavailable Unavailable KIARA, C Isabel PRICE Unavailable Unavailable KIARA, C Isabel PIRCE Unavailable Unavailable KIARA, Benjy Hall MD Unavailable [...] is protected by Article 27-F of the [facility] Public Health law. If you continue you may have access to information: Regarding HIV / AIDS; Provided by facilities licensed or operated by the [facility] Office of Mental Health; or Provided by the [facility] Office for People With Developmental Disabilities. If such information is present, then the following [facility] mandated warning applies: This information has been [...] law may result in a fine or care home sentence or both. A general authorization for the release of medical or other information is NOT sufficient authorization for further disc losure. Allergies and Adverse Reactions Type Description Substance Reaction Status Data Source(s ) Propensity to adverse reactions MACROBID [facility] Food allergy SEAFOOD SEAFOOD SWELLING [facility] Food allergy SHELLFISH SHELLFISH [facility] Drug allergy PRIMAQUINE PRIMAQUINE [facility] Drug allergy ASPIRIN ASPIRIN SWELLING [facility] Propensity to adverse reactions SHELLFISH ALLERGY [facility] Propensity to adverse reactions NO KNOWN ALLERGIES NO KNOWN ALLERGIES [facility] Propensity to adverse reactions PRIMAQUINE PRIMUINE [facility] Propensity to adverse reactions NITROFURANTOIN NITROFURANTOIN [facility] Propensity to adverse reactions ASPIRIN [facility] No Known Drug Allergies No Known Drug Allergies [facility] Drug Allergy Drug Allergy NKDA [facility] ([facility]) Encounters Encounter Providers Location Date Indications Data Source(s ) Outpatient Attender: Mike DUNCAN CPSCAORT-CPSCAEND 10/08/2021 03:43:00 PM EST - 10/08/2021 03:44:00 PM EST [facility] Patient discharged. Outpatient Attender: EFRAIN Gould/Jacob/Edvin/Hebert shafer 09/26/2021 08:00:00 AM EST [facility] ([facility]ice, ) Outpatient Attender: Isabel CRAIG MD [id number] 09/13/2021 12:00:00 AM EDT [facility] Outpatient Attender: Jyoti Lombardo MDConsultant: STAFF NON 08/13/2021 04:52:00 PM EDT - 08/13/2021 05:52:00 PM EDT [facility] Outpatient Attender: Jyoti Lombardo MDConsultant: STAFF NON 08/09/2021 10:38:00 AM EDT - 08/09/2021 11:35:00 AM EDT [facility] Outpatient Attender: Jyoti Lombardo MD Family Practice 0 08/08/2021 04:00:00 PM EDT [facility] Outpatient Attender: Jyoti Lombardo MDConsultant: STAFF NON 08/08/2021 03:43:00 PM EDT - 08/08/2021 03:43:00 PM EDT [facility] Outpatient Attender: Evelio Rodriguez MD CPSCAORT-CPSCAEND 08/02 02:38:00 PM EDT - 08/02/2021 02:39:00 PM EDT E22.1 [facility] E22.1 Patient discharged. Outpatient [address] [facility] [place] [address] 07/30/2021 12:00:00 AM EDT eCW1 ([facility]) Emergency Attender: EVELIO LUNAConsultant: STAFF NON 07/18/2021 04:01:00 AM EDT - 07/18/2021 07:51:00 AM EDT [facility] Patient discharged. Outpatient [address] [facility] [place] [address] 07/16/2021 12:00:00 AM EDT eCW1 ([facility]) Unknown [address] [facility] [address] 06/26/2021 12:00:00 AM EDT eCW1 ([facility]) Outpatient Attender: BORIS SALEEMAttender: Boris Saleem 06/20/2021 12:00:00 AM EDT [facility] Outpatient Attender: BENITO WILLETT MD Family Practice 06/18/2021 02:00:0 0 PM EDT [facility] ([facility]) Outpatient Attender: BENITO WILLETT MDConsultant: STAFF NON 06/18/2021 01:46:00 PM EDT - 06/18/2021 01:46:00 PM EDT [facility] Emergency Attender: EVELIO Nettlesant: STAFF NON 06/10/2021 11:30:00 AM EDT - 06/10/2021 01:57:00 PM EDT [facility] Patient discharged. Outpatient Attender: Isabel CRAIG MD [id number] 06/07/2021 12:00:00 AM EDT [facility] Outpatient Referrer: Isabel CRAIG MD 05/30/2021 12:00: 00 AM EDT Infertility male [facility] Infertility male Outpatient Admitter: Isabel CRAIG MDReferrer: Isabel CRAIG MD 05/30/2021 12:00:00 AM EDT SEMEN ANALYSIS [facility] SEMEN ANALYSIS Outpatient Attender: Isabel CRAIG MD 05/24/2021 12:00:00 AM EDT [facility] Emergency Attender: EVELIO Nettlesant: STAFF NON 05/06/2021 11:04:00 AM EDT - 05/06/2021 01:37:00 PM EDT [facility] Patient discharged. Emergency Attender: LLUVIA LANTIGUA MDConsultant: STAFF NON 05/05/2021 03:26:00 AM EDT - 05/05/2021 06:26:00 AM EDT [facility] Patient discharged. Outpatient Attender: Isabel CRAIG MD [id number] 04/19/20 12:00:00 AM EDT - 04/19/2021 12:58:31 PM EDT Male infertility, unspecified [facility] Male infertility, unspecified Inpatient Attender: MAURI Nunez er: RUPESH CR MDAttender: Maya Wilson MDAttender: EFRAIN BENZ MDAttender: ISACC DAVID MDAttender: Evelio Fernandez MDAdmitter: RUPESH CR MDReferrer: Jesse James MDConsultant: MAGGY ALVARADO MD [id number] 03/21/2021 12:00:00 AM EDT - 04/01/2021 02:45:00 PM EDT Illness, unspecified [facility] Illness, unspecified Patient discharged. Outpatient Attender: Isabel CRAIG MD [id number] 2021 12:00:00 AM EDT [facility] Inpatient Attender: Len Ochoa tender: JON GABRIEL MDAdmitter: Len Banerjee PA-C [id number] 03/07/2021 12:00:00 AM EDT - 03/08/2021 12:03:00 PM EDT Major depressive disorder, single episode, unspecified [facility] Major depressive disorder, single episod e, unspecified Patient discharged. Outpatient Attender: BENITO WILLETT MDConsultant: STAFF NON 03/01/2021 10:45:00 AM EDT - 03/01/2021 03:10:00 PM EDT [facility] Patient discharged. Emergency Attender: Carter Small MDConsultant: STAFF NON 02/15/2021 11:50:00 AM EDT - 02/15/2021 02:49:00 PM EDT [facility] Patient discharged. Outpatient Attender: BENITO WILLETT MD Family Practice 02/12/2021 01:30:0 0 PM EDT [facility] ([facility]) Outpatient Attender: BENITO WILLETT MDConsultant: STAFF NON 02/12/2021 01:04:00 PM EDT - 02/12/2021 01:04:00 PM EDT [facility] Outpatient [address] [facility] [address] 02/06/2021 12:00:00 AM EDT eCW1 ([facility]) Outpatient Attender: Jyoti Lombardo MD Family Practice 0 02/05/2021 03:00:00 PM EDT [facility] Outpatient Attender: Jyoti Lombardo MDConsultant: STAFF NON 02/05/2021 02:40:00 PM EDT - 02/05/2021 02:40:00 PM EDT [facility] Outpatient Attender: BENITO WILLETT MDConsultant: STAFF NON 01/23/2021 10:32:00 AM EDT - 01/23/2021 10:32:00 AM EDT [facility] Out[facility] [address] [facility] [address] 01/23/2021 12:00:00 AM EDT eCW1 ([facility]) Emergency Attender: Carter Small MDConsultant: STAFF NON 01/18/2021 01:23:00 PM EST - 01/18/2021 03:35:00 PM [facility] Patient discharged. Outpatient Attender: BENITO WILLETT MDConsultant: STAFF NON 01/15/2021 12:37:00 PM EST - 01/15/2021 12:37:00 PM [facility] Outpatient Attender: BENITO WILLETT MD Family Practice 01/15/2021 12:00:0 0 PM EST [facility] ([facility]) Emergency Attender: NICOL BANG MDConsultant: BAKARI Boyle NON 01/13/2021 10:28:00 AM EST - 01/13/2021 04:04:00 PM [facility] Patient discharged. Outpatient Attender: BENITO WILLETT MDConsultant: STAFF NON 01/11/2021 11:00:00 AM EST - 01/11/2021 03:17:00 PM [facility] Patient discharged. Outpatient Admitter: Isabel CRAIG MDReferrer: Isabel CRAIG MD 01/07/2021 12:00:00 AM [facility] Outpatient Attender: BENITO WILLETT MDConsultant: STAFF NON 12/31/2020 06:56:10 AM EST - 01/01/2021 04:00:[facility] Emergency Attender: NICOL BANG MDConsultant: BAKARI Boyle NON 12/27/2020 10:55:00 AM EST - 12/27/2020 01:35:00 PM [facility] Patient discharged. Emergency Attender: Addy ANTOINECConsultant: STAFF NO N 12/20/2020 11:29:00 AM EST - 12/20/2020 03:03:00 PM [facility] Patient discharged. Emergency Attender: EVELIO LUNAConsultant: STAFF NON 12/19/2020 09:11:00 AM EST - 12/19/2020 01:41:00 PM [facility] Patient discharged. Outpatient Attender: DYLAN SHI MD Medical [facility] 12/18 12:15:00 PM EST [facility] (Dylan Shi [facility]) Outpatient Attender: Carter Small MDAttender : Cari Sweet FNPConsultant: STAFF NON 12/01/2020 02:50:00 PM EST - 12/03/2020 12:25:00 PM [facility] Patient discharged. Outpatient Attender: Isabel CRAIG MD [id number] 11/22/2020 12:00:00 AM [facility] Emergency Attender: EVELIO LUNAConsultant: STAFF NON 11/19/2020 02:16:00 PM EST - 11/19/2020 03:51:00 PM [facility] Patient discharged. Outpatient [address] [facility] [place] [address] 11/15/2020 12:00:00 AM EST eCW1 ([facility]) Outpatient Attender: BENITO WILLETT MDConsultant: STAFF NON 11/14/2020 01:25:00 PM EST - 11/14/2020 01:25:00 PM EST [facility] Outpatient Attender: BENITO WILLETT MD [facility] 11/14/2020 12:00:0 0 PM EST [facility] ([facility]) Outpatient Attender: DYLAN SHI MD Medical [facility] 11/07 01:15:00 PM EST [facility] ([facility] Shi [facility]) Outpatient [address] [facility] [place] [address] 10/30/2020 12:00:00 AM EST eCW1 ([facility]) Outpatient [address] [facility] [place] [address] 10/25/2020 12:00:00 AM EST eCW1 ([facility]) Emergency Attender: Addy ANTOINECConsultant: STAFF NO N 10/19/2020 10:32:00 AM EST - 10/19/2020 01:51:00 PM [facility] Patient discharged. Postop visit [address] [facility] [place] [address] 10/19/2020 12:00:00 AM EST eCW1 ([facility]) Unknown [address] [facility] [place] [address] 10/19/2020 12:00:00 AM EST eCW1 ([facility]) Outpatient [address] [facility] [place] [address] 10/18/2020 12:00:00 AM EST eCW1 ([facility]) Emergency Attender: EVELIO LUNAConsultant: STAFF NON 09/17/2020 08:46:00 AM EST - 09/17/2020 12:18:00 PM [facility] Patient discharged. Outpatient Attender: Jyoti Lombardo MDConsultant: STAFF NON 09/07/2020 02:36:00 PM EDT - 09/07/2020 02:36:00 PM EDT [facility] Medications Medication Brand Name Start Date Product Form Dose Route Admi nistrative Instructions Pharmacy Instructions Status Indications Reaction Description Data Source(s) POLYETHYLENE GLYCOL 3350 142 MG/ML Oral Solution [Miralax] M iralax 09/26/2021 12:00:00 AM EST active M [facility]ENT ([facility], ) magnesium citrate 58.2 MG/ML Oral Solution Magnesium Citrate 09/26/2021 12:00:00 AM EST active [facility] ([facility], ) pantoprazole 40 MG Delayed Release Oral Tablet Pantoprazole Sodium 09/26/2021 12:00:00 AM EST ORAL active M [facility]ENT ([facility]) cetirizine hydrochloride 10 MG Oral Tablet Cetirizine HCl 10 MG Cetirizine HCl 10 MG 07/30/2021 12:00:00 AM EDT 1.0 {tablet} activ e Cetirizine HCl 10 MG eCW1 ([facility]) Hydroxyzine Hydrochloride 25 MG Oral Tablet hydrOXYzin e HCl 25 MG hydrOXYzine HCl 25 MG 07/16/2021 12:00:00 AM EDT 1.0 {tablet_as_needed} active hydrOXYzine HCl 25 MG eCW1 ([facility]) pantoprazole 40 MG Delayed Release Oral Tablet Pantoprazole Sodium 40 MG Oral Tablet Delayed Release (PROTONIX) Pantoprazole Sodium 40 MG Oral Tablet De layed Release (PROTONIX) 06/05/2021 12:00:00 AM EDT acti ve [facility] Chorionic Gonadotropin 10596 UNT/ML Inje ctable Solution Chorionic Gonadotropin 02929 UNIT Intramuscular Solution Reconstituted Chorionic Gonadotropin 36130 UNIT Intramuscular Solution Reconstituted 05/15/2021 12:00:00 AM EDT 2000 U Intramuscular active Inject 2,00 0 Units into the muscle 3 (three) times a week Inject 2000 units on Thursday, Thursday and Thursday, Max Daily Dose: 2,000 Units [facility] Clobetasol Propionate 0.5 MG/ML Topical Cream Clobetasol Propionate 0.05 % External Cream (TEMOVATE) Clobetasol Propionate 0.05 % External Cr eam (TEMOVATE) 04/01/2021 12:00:00 AM EDT active Apply to skin [facility] quetiapine 50 MG Oral Tablet QUEtiapine Fumarate 50 MG Oral Tablet (SEROquel) QUEtiapine Fumarate 50 MG Oral Tablet (SEROquel) 04/01/2021 12:00:00 AM EDT 50 mg Oral active Take 1 tablet by mouth n [facility] apixaban 2.5 MG Oral Tablet Apixaban 2.5 MG Oral Table t (ELIQUIS) Apixaban 2.5 MG Oral Tablet (ELIQUIS) 04/01/2021 12:00:00 AM EDT 2.5 mg Oral active Take 1 tablet by mouth Two Times Daily Indications: cl otting disorder [facility] omalizumab 150 MG Injection omalizumab (XOLAIR) inject ion 300 mg omalizumab (XOLAIR) injection 300 mg 03/29/2021 12:00:00 PM EDT 300 mg Subcuta neous active 300 mg, Subcutaneous , Every 28 days, First dose on Thu03/29/21 at 1200, For 30 days [facility] Medication administered onsite quetiapine 25 MG Oral Tablet QUEtiapine (SEROquel) tab let 50 mg QUEtiapine (SEROquel) tablet 50 mg 03/26/2021 10:00:00 PM EDT 50 mg Oral active 50 mg, Oral, Nightly, First dose on Thu03/26/21 at 2200, For 30 days [facility] Medication administered onsite Chorionic Gonadotropin 74493 UNT/ML Inje ctable Solution chorionic gonadotropin injection 2,000 Units chorionic gonadotropin injection 2,000 Units 11:00:00 AM EDT 2000 U Intramuscular active 2,000 Units, Intramuscular, Three times Weekly (Once per day on Thu), First dose on Thu03/25/21 at 1100, For 30 days [facility] Medication administered onsite Escitalopram 10 MG Oral Tablet escitalopram (LEXAPRO) tablet 20 mg escitalopram (LEXAPRO) tablet 20 mg 03/23/2021 09:00:00 AM EDT 20 mg Oral active 20 mg, Oral, Daily Standard, First dose on Thu03/23/21 at 0900, For 30 doses [facility] Medication administered onsite cetirizine hydrochloride 10 MG Oral Tablet cetirizine (ZYRTEC) tablet 10 mg cetirizine (ZYRTEC) tablet 10 mg 03/23/2021 09:00:00 AM EDT 10 mg Oral active 10 mg, Oral, Daily Standard, First dose on Thu03/23/21 at 0900, For 30 days [facility] Medication administered onsite POLYETHYLENE GLYCOL 3350 [...] due to potential increased risk for aspiration.
[facility] Medication administered onsite diphenhydrAMINE (BENADRYL) injection 50 mg [id number] 03/23/2021 06:45:00 AM EDT 50 mg Intramuscular completed 50 mg, Intramuscular, Once, On 03/23/21 at 0645, For 1 dose [facility] Medication administered onsite haloperidol lactate (HALDOL) injection 5 mg [id number] 03/23/2021 06:45:00 AM EDT 5 mg Intramuscular completed 5 mg, Intramuscular, Once, On 03/23/21 at 0645, For 1 dose [facility] Medication administered onsite 1 ML Lorazepam 2 MG/ML Injection LORazepam (ATIVAN) in jection 2 mg LORazepam (ATIVAN) injection 2 mg 03/23/2021 06:45:00 AM EDT 2 mg Intramusc ular completed 2 mg, Intramuscular, Once, On Sa t 03/23/21 at 0645, For 1 dose [facility] Medication administered onsite apixaban 2.5 MG Oral Tablet apixaban (ELIQUIS) tablet 2.5 mg apixaban (ELIQUIS) tablet 2.5 mg 03/22/2021 09:00:00 PM EDT 2.5 mg Oral acti ve 2.5 mg, Oral, 2 Times Daily, Indications: clotting disorder, First dose on Thu03/22/21 at 2100, For 30 days [facility] Medication administered onsite Clobetasol Propionate 0.5 MG/ML Topical Cream clobetasol (TEMOVATE) 0.05 % cream clobetasol (TEMOVATE) 0.05 % cream 03/22/2021 09:00:00 PM EDT Topical active Topical, 2 Times Miri ly, First dose on Thu03/22/21 at 2100, For 30 days
Apply to affected area
[facility] Medication administered onsite Ondansetron 4 MG Disintegrating Oral Tab let ondansetron (ZOFRAN-ODT) disintegrating tablet 4 mg ondansetron (ZOFRAN-ODT) disintegrating tablet 4 mg 03/22/2021 03:43:19 PM EDT 4 mg Oral active 4 mg, Oral, Every 6 hours PRN, Nausea, Starting on Thu03/22/21 at 1543, For 30 days
Dissolve on tongue.
[facility] Medication administered onsite Hydroxyzine Hydrochloride 50 MG Oral Tablet hydrOXYzin e (ATARAX) tablet 50 mg hydrOXYzine (ATARAX) tablet 50 mg 03/22/2021 03:43:04 PM EDT 50 mg Oral active 50 mg, Oral, Every 6 hours PRN, Anxiety, Sleep, Starting on Thu03/22/21 at 1543, For 30 days [facility] Medication administered onsite acetaminophen (TYLENOL) tablet [...] 30 days
MDD 4
[Order 3 End] [facility] Medication administered onsite Sodium Chloride 0.111 MEQ/ML Nasal Solut ion sodium chloride (OCEAN) 0.65 % nasal spray 2 spray sodium chloride (OCEAN) 0.65 % nasal spray 2 spray 03:39:25 PM EDT 2 {spray} Each Nare active 2 spray, Each Nare, PRN, Congestion, Other, Starting on Thu03/22/21 at 1539, For 30 days [facility] Medication administered onsite Chorionic Gonadotropin 28283 UNT/ML Inje ctable Solution chorionic gonadotropin injection 2,000 Units chorionic gonadotropin injection 2,000 Units 07:15:00 AM EDT 2000 U Intramuscular completed 2,000 Units, Intramuscular, Once, On Thu03/22/21 at 0715, For 1 dose [facility] Medication administered onsite Escitalopram 10 MG Oral Tablet escitalopram (LEXAPRO) tablet 20 mg escitalopram (LEXAPRO) tablet 20 mg 03/22/2021 07:15:00 AM EDT 20 mg Oral completed 20 mg, Oral, Once, On Thu03/22/21 at 0715, For 1 dose [facility] Medication administered onsite apixaban 2.5 MG Oral Tablet apixaban (ELIQUIS) tablet 2.5 mg apixaban (ELIQUIS) tablet 2.5 mg 03/22/2021 07:15:00 AM EDT 2.5 mg Oral completed Venous Thrombosis 2.5 mg, Oral, Once, Indicati ons: Venous Thrombosis, On Thu03/22/21 at 0715, For 1 dose [facility] Venous Thrombosis Medication administered onsite Acetaminophen 325 MG Oral Tablet acetaminophen (TYLENO L) tablet 650 mg acetaminophen (TYLENOL) tablet 650 mg 03/22/2021 06:45:00 AM EDT 65 0 mg Oral completed 650 mg, Oral, O nce, On Thu03/22/21 at 0645, For 1 dose
Maximum daily dose of acetaminophen is 3,000 mg from all sources in 24 hours.
[facility] Medication administered onsite Acetaminophen 325 MG Oral Tablet acetaminophen (TYLENO L) tablet 650 mg acetaminophen (TYLENOL) tablet 650 mg 03/22/2021 01:30:00 AM EDT 65 0 mg Oral completed 650 mg, Oral, O nce, On Thu03/22/21 at 0130, For 1 dose
Maximum daily dose of acetaminophen is 3,000 mg from all sources in 24 hours.
[facility] Medication administered onsite morphine sulfate (PF) injection 4 mg [id number] 03/21/2021 11:45: 00 PM EDT 4 mg Intravenous completed 4 mg, In travenous, Once, On Thu03/21/21 at 2345, For 1 dose [facility] Medication administered onsite iohexol (OMNIPAQUE) 300 MG/ML contrast injection 100 mL [id number] 03/21/2021 11:15:00 PM EDT 100 mL Given by IV completed 100 mL, Given by IV, 1 TIME IMAGING, On Thu03/21/21 at 2315, For 1 dose [facility] Medication administered onsite Cholecalciferol 1000 UNT Oral Tablet vit hermosillo D3 (CHOLECALCIFEROL) tablet 1,000 Units vitamin D3 (CHOLECALCIFEROL) tablet 1,000 Units 2020 08:00:00 AM EDT 1000 U Oral active 1,000 Un its, Oral, Daily Standard, First dose on Thu03/08/21 at 0800, For 30 days
25 mcg vitamin D3 = 1,000 international units vitamin D3.
[facility] Medication administered onsite Phenazopyridine hydrochloride 200 MG Del ayed Release Oral Tablet Phenazopyridine HCl 200 MG Oral Tablet (PYRIDIUM) Phenazopyridine HCl 200 MG Oral Tablet (PYRIDIUM) 03/08/2021 12:00:00 AM EDT 200 mg Oral active Take 1 tablet by mouth Three times daily with meals for 3 days [facility] Phenazopyridine hydrochloride 200 MG Del ayed Release Oral Tablet phenazopyridine (PYRIDIUM) tablet 200 mg phenazopyridine (PYRIDIUM) tablet 200 mg 03/07/2021 08:00:00 AM EDT 200 mg Oral active 200 mg, Oral, Three Times Daily- With Meals, First dose on Thu03/07/21 at 0800, For 2 days [facility] Medication administered onsite Sulfamethoxazole 800 MG / Trimethoprim 1 60 MG Oral Tablet sulfamethoxazole- trimethoprim (BACTRIM DS) 800-160 MG per tablet 1 tablet sulfamethoxazole- trimethoprim (BACTRIM DS) 800-160 MG per tablet 1 tablet 03/07/2021 08:00:00 AM EDT 1 {tbl} Oral aborted 1 tablet , Oral, Every 12 hours Standard (2 times per day), First dose on Thu03/07/21 at 0800, For 7 days [facility] Medication administered onsite Escitalopram 10 MG Oral Tablet escitalopram (LEXAPRO) tablet 20 mg escitalopram (LEXAPRO) tablet 20 mg 03/07/2021 08:00:00 AM EDT 20 mg Oral active 20 mg, Oral, Daily Standard, First dose on Thu03/07/21 at 0800, For 30 days [facility] Medication administered onsite multivitamin tablet 1 tablet 8723-0830-85 03/07/2021 08:00:00 AM EDT 1 {tbl} Oral active 1 tablet, Oral , Daily Standard, First dose on Thu03/07/21 at 0800, For 30 days [facility] Medication administered onsite apixaban 2.5 MG Oral Tablet apixaban (ELIQUIS) tablet 2.5 mg apixaban (ELIQUIS) tablet 2.5 mg 03/07/2021 08:00:00 AM EDT 2.5 mg Oral active Venous Thrombosis 2.5 mg, Oral, 2 Times Daily, Indications: Venous Thrombosis, First dose on Thu03/07/21 at 0800, For 30 days [facility] Venous Thrombosis Medication administered onsite Hydroxyzine Hydrochloride 50 MG Oral Tablet hydrOXYzin e (ATARAX) tablet 50 mg hydrOXYzine (ATARAX) tablet 50 mg 03/07/2021 01:59:51 AM EDT 50 mg Oral active 50 mg, Oral, Every 6 hours PRN, Anxiety, Sleep, Starting on Danna 03/07/21 at 0159, For 30 days [facility] Medication administered onsite Melatonin 5 MG Oral Tablet melatonin tablet 5 mg melatonin t ablet 5 mg 03/07/2021 01:59:43 AM EDT 5 mg Oral active 5 mg, Oral, Nightly PRN, Sleep, Starting on Danna 03/07/21 at 0159, For 30 days [facility] Medication administered onsite Aluminum Hydroxide 40 [...] at 0159, For 30 days
MDD 4
[facility] Medication administered onsite Ondansetron 4 MG Disintegrating Oral Tab let ondansetron (ZOFRAN-ODT) disintegrating tablet 4 mg ondansetron (ZOFRAN-ODT) disintegrating tablet 4 mg 03/07/2021 01:59:29 AM EDT 4 mg Oral active 4 mg, Oral, Every 6 hours PRN, Nausea, Starting on Danna 03/07/21 at 0159, For 30 days
Dissolve on tongue.
[facility] Medication administered onsite Magnesium Hydroxide 80 [...] creatinine > 2 notify provider before administering.
[facility] Medication administered onsite Acetaminophen 325 MG Oral Tablet acetaminophen (TYLENO L) tablet 650 mg acetaminophen (TYLENOL) tablet 650 mg 03/07/2021 01:59:13 AM EDT 65 0 mg Oral active 650 mg, Oral, E very 4 hours PRN, Mild Pain (Pain Scale Score 1- 3), Headaches, Starting on Danna 03/07/21 at 0159, For 30 days
MDD 4
[facility] Medication administered onsite Chorionic Gonadotropin 08949 UNT/ML Inje ctable Solution Chorionic Gonadotropin 76601 UNIT Intramuscular Solution Reconstituted Chorionic Gonadotropin 51994 UNIT Intramuscular Solution Reconstituted 02/27/2021 12:00:00 AM EDT 2000 U Intramuscular active Inject 2,00 0 Units into the muscle 3 (three) times a week Inject 2000 units on Thursday, Thursday and Thursday, Max Daily Dose: 2,000 Units [facility] Syringe 22G X 1" 3 ML [id number] 02/27/2021 12:00:00 AM EDT active Use as directed. Use to inject chorionic gonadatropin [facility] 800 mg 01/18/2021 12:00:00 AM EST [...] active [facility] (Dylan Shi MD) Chorionic Gonadotropin 72595 UNT/ML Inje ctable Solution Chorionic Gonadotropin 50700 UNIT Intramuscular Solution Reconstituted Chorionic Gonadotropin 70489 UNIT Intramuscular Solution Reconstituted 11/28/2020 12:00:00 AM EST 2000 U Intramuscular active Inject 2,00 0 Units into the muscle 3 (three) times a week Inject 2000 units on Thursday, Thursday and Thursday, Max Daily Dose: 2,000 Units [facility] Escitalopram 20 MG Oral Tablet Escitalopram Oxalate 20 MG Oral Tablet (LEXAPRO) Escitalopram Oxalate 20 MG Oral Tablet (LEXAPRO) 11/07/2020 12:00:00 AM EST 20 mg Oral active Take 20 mg by mouth [facility] apixaban 5 MG Oral Tablet Apixaban 5 MG Oral Tablet (E liquis) Apixaban 5 MG Oral Tablet (Eliquis) 11/07/2020 12:00:00 AM EST abort [facility] Trazodone Hydrochloride 50 MG Oral Table t traZODone HCl 50 MG Oral Tablet (DESYREL) traZODone HCl 50 MG Oral Tablet (DESYREL) 11/07/2020 12:00:0 0 AM EST 50 mg Oral aborted Take 50 mg by mo [facility] Divalproex Sodium 250 MG Delayed Release [...] LIDOCAINE PATCH EX 11/07/2020 12:00:[address] [facility] Risperidone 1 MG Oral Tablet Risperidone 11/07/2020 12:00:00 AM EST active [facility] (Dylan Shi MD) Ivermectin 3 MG Oral Tablet Ivermectin 11/07/2020 12:00:00 AM EST active [facility] (Dylan Shi MD) Xolair 150 MG/ML Xolair 150 MG/ML 10/19/2020 12:00:00 AM EST active Xolair 150 MG/ML [facility] Xolair 150 MG/ML Xolair 150 MG/ML 10/19/2020 12:00:00 AM EST active Xolair 150 MG/ML eCW1 ([facility]) Xolair 150 MG/ML Xolair 150 MG/ML 10/19/2020 12:00:00 AM EST active Xolair 150 MG/ML eCW1 ([facility]) Acetaminophen 325 MG / Hydrocodone Migdalia trate 5 MG Oral Tablet HYDROcodone- Acetaminophen 5-325 MG Oral Tablet (LORTAB) HYDROcodone-Acetaminophen 5-325 MG Oral Tablet (LORTAB) 1 {tbl} Oral aborted Take 1 tablet by mouth every 6 (six) hours as needed for Pain [facility] Naproxen 500 MG Oral Tablet Naproxen 500 MG Oral Table t (NAPROSYN) Naproxen 500 MG Oral Tablet (NAPROSYN) 500 mg Oral aborted Take 500 mg by mouth Two times daily with meals [facility] Escitalopram 10 MG Oral Tablet Escitalopram Oxalate 10 MG Oral Tablet (LEXAPRO) Escitalopram Oxalate 10 MG Oral Tablet (LEXAPRO) aborted 1 tablet [facility] Divalproex Sodium 250 MG Delayed Release Oral Tablet Divalproex Sodium 250 MG Oral Tablet Delayed Release (DEPAKOTE) Divalproex Sodium 250 MG Oral Tablet Delayed Release (DEPAKOTE) aborted 1 tablet [facility] Ivermectin 10 MG/ML Topical Cream Ivermectin 1 % Exter nal Cream Ivermectin 1 % External Cream Apply externally aborted Apply topically [facility] Acetaminophen 500 MG Oral Tablet Acetaminophen 500 MG Oral Tablet (TYLENOL) Acetaminophen 500 MG Oral Tablet (TYLENOL) 500 mg Oral aborted Take 500 mg by mouth every 6 (six) hours as needed for Pain [facility] Insurance Providers Payer name Policy type / Coverage type Policy ID Covered green party ID Covered green party's relationship to puente Policy Puente Plan Information EAST ACTIVE DUTY [id number] SP [id number] U [id number] Self [id number] U [id number] Self [id number] U [id number] Self [id number] SELF PAY EAST [id number] SP [id number] SELF PAY EAST [id number] SP [id number] SELF PAY EAST [id number] SP [id number] [facility] [place] [facility] O [id number] S [id number] [facility] [id number] S [id number] [facility] O/P [id number] 18 [id number] [facility] [place] [id number] 18 [id number] [facility] - PHYSICIAN [id number] 18 [id number] [facility] CLINIC [id number] 18 [id number] [facility] ACTIVE DUTY [id number] SP [id number] [facility] - O/P [id number] 18 [id number] Problems, Conditions, and Diagnoses Code Display Name Description Problem Type Effective Dates Data Source(s) U73580 Personal history of other venous thrombo sis and embolism Personal history of other venous thrombosis and embolism Diagnosis 08/13/2021 04:52:00 PM EDT [facility] Q98.4 Klinefelter syndrome, unspecified KLINEFELTER SY NDROME, UNSPECIFIED Diagnosis 08/02/2021 02:38:00 PM EDT [facility] E22.1 Hyperprolactinemia HYPERPROLACTINEMIA Diagnosis 02:38:00 PM EDT [facility] Z8719 Personal history of other diseases of th e digestive system Personal history of other diseases of the digestive system Diagnosis 07/2021 04:01:00 AM [facility] I10 Essential (primary) hypertension Essential (primary) h ypertension Diagnosis 07/18/2021 04:01:00 AM [facility] K219 Gastro-esophageal reflux disease without esophagitis Gastro-esophageal reflux disease without esophagitis Diagnosis 07/18/2021 04:01:00 AM ED [facility] G8929 Other chronic pain Other chronic pain Diagnosis 07/2021 04:01:00 AM T [facility] I880 Nonspecific mesenteric lymphadenitis Nonspecific mesenteric lymphadenitis Diagnosis 07/18/2021 04:01:00 AM [facility] R1012 Left upper quadrant pain Left upper quadrant pain Diag nosis 07/18/2021 04:01:00 AM [facility] 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 Diagnosis 06/10/2021 11:30:00 AM [facility] R1013 Epigastric pain Epigastric pain Diagnosis 06/10/2021 11:3 0:00 AM [facility] Infertility male Infertility male Diagnosis 05/30/2021 12 :46:51 PM [facility] SEMEN ANALYSIS SEMEN ANALYSIS Diagnosis 05/30/2021 12:00: 00 AM [facility] R112 Nausea with vomiting, unspecified Nausea with vo miting, unspecified Diagnosis 05/06/2021 11:04:00 AM [facility] R1084 Generalized abdominal pain Generalized abdominal pain Diagnosis 05/06/2021 11:04:00 AM [facility] E860 Dehydration Dehydration Diagnosis 05/05/2021 03:26:00 AM [facility] E876 Hypokalemia Hypokalemia Diagnosis 05/05/2021 03:26:00 AM [facility] K529 Noninfective gastroenteritis and colitis , unspecified Noninfective gastroenteritis and colitis, unspecified Diagnosis 05/05/2021 03:26:00 AM [facility] R69 Illness, unspecified Illness, unspecified Diagnosis 03/21/2021 09:56:00 PM [facility] ca v tree ca v tree Diagnosis 03/21/2021 09:56:00 PM [facility] F32.9 Major depressive disorder, single episod e, unspecified Major depressive disorder, single episode, unspecified Diagnosis 03/07/2021 01:28:00 AM [facility] 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, 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, 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 03/07/2021 01:28:00 AM [facility] R8290 Unspecified abnormal findings in urine U nspecified abnormal findings in urine Diagnosis 03/01/2021 10:45:00 AM [facility] M545 Low back pain Low back pain Diagnosis 03/01/2021 10:45:00 AM [facility] N469 Male infertility, unspecified Male infertility, unspec ified Diagnosis 03/01/2021 10:45:00 AM [facility] R300 Dysuria Dysuria Diagnosis 03/01/2021 10:45:00 AM ED [facility] 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 Ot her inflammatory disorders of penis Diagnosis 03/01/2021 10:45:00 AM EDT [facility] R42 Dizziness and giddiness Dizziness and giddiness Diagno sis 03/01/2021 10:45:00 AM EDT [facility] R350 Frequency of micturition Frequency of micturition Diag nosis 03/01/2021 10:45:00 AM EDT [facility] R1032 Left lower quadrant pain Left lower quadrant pain Diag nosis 03/01/2021 10:45:00 AM EDT [facility] R319 Hematuria, unspecified Hematuria, unspecified Diagnosi s 03/01/2021 10:45:00 AM EDT [facility] N130 Hydronephrosis with ureteropelvic juncti on obstruction Hydronephrosis with ureteropelvic junction obstruction Diagnosis 03/01/2021 10:45:00 AM ED T [facility] Z15003 residential (current) use of opiate analge sic residential (current) use of opiate analgesic Diagnosis 02/15/2021 11:50:00 AM EDT [facility] N23 Unspecified renal colic Unspecified renal colic Diagno sis 02/15/2021 11:50:00 AM EDT [facility] R102 Pelvic and perineal pain Pelvic and perineal pain Diag nosis 02/15/2021 11:50:00 AM EDT [facility] R310 Gross hematuria Gross hematuria Diagnosis 02/12/2021 01:0 4:00 PM EDT [facility] F3289 Other specified depressive episodes Other specif ied depressive episodes Diagnosis 02/05/2021 02:40:00 PM EDT [facility] Y02999 Acute embolism and thrombosi s of unspecified deep veins of unspecified lower extremity Acute embolism and thrombosis of unspeci fied deep veins of unspecified lower extremity Diagnosis 02/05/2021 02:40:00 PM EDT [facility] Z960 Presence of urogenital implants Presence of urogenital implants Diagnosis 01/18/2021 01:23:00 PM [facility] K99212 Personal history of urinary calculi Personal his tory of urinary calculi Diagnosis 01/18/2021 01:23:00 PM [facility] Y12439 Pain in left leg Pain in left leg Diagnosis 01/15/2021 12 :37:00 PM [facility] N5312 Painful ejaculation Painful ejaculation Diagnosis 0 01/15/2021 12:37:00 PM [facility] R109 Unspecified abdominal pain Unspecified abdominal pain Diagnosis 01/13/2021 10:28:00 AM [facility] N131 Hydronephrosis with ureteral stricture, not elsewhere classified Hydronephrosis with ureteral stricture, not elsewhere classified Diagnosis 01/11/2021 11:00:00 AM [facility] [id number] Encounter for other preprocedural examin ation Encounter for other preprocedural examination Diagnosis 01/01/2021 03:00:00 PM [facility] N132 Hydronephrosis with renal and ureteral c alculous obstruction Hydronephrosis with renal and ureteral calculous obstruction Diagnosis 021 11:29:00 AM [facility] I313 Pericardial effusion (noninflammatory) P ericardial effusion (noninflammatory) Diagnosis 12/19/2020 09:11:00 AM [facility] L089 Local infection of the skin and subcutan eous tissue, unspecified Local infection of the skin and subcutaneous tissue, unspecified Diagnosis 12/01/2020 02:50:00 PM [facility] Z6831 Body mass index [BMI] 31.0-31.9, adult B jm mass index [BMI] 31.0-31.9, adult Diagnosis 12/01/2020 02:50:00 PM [facility] E669 Obesity, unspecified Obesity, unspecified Diagnosis 12/01/2020 02:50:00 PM [facility] R55 Syncope and collapse Syncope and collapse Diagnosis 12/01/2020 02:50:00 PM [facility] 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, lumbar region Intervertebral disc disorders with radiculopathy, lumbar region Diagnosis 11/19/2020 02:16:00 PM [facility] R3121 Asymptomatic microscopic hematuria Asymptomatic microscopic hematuria Diagnosis 10/19/2020 10:32:00 AM [facility] Y9289 Other specified places as the place of o ccurrence of the external cause Other specified places as the place of occurrence of the external cause Diagnosis 09/17/2020 08:46:00 AM [facility] [id number] Overexertion from strenuous movement or load, initial encounter Overexertion from strenuous movement or load, initial encounter Diagnosis 09/17/2020 08:46:00 AM [facility] [id number] Strain of muscle, fascia and tendon of l ower back, initial encounter Strain of muscle, fascia and tendon of lower back, initial encounter Diagnosis 09/17/2020 08:46:00 AM [facility] G47.33 Obstructive sleep apnea syndrome Obstructive sle ep apnea syndrome Problem 08/08/2021 12:00:00 AM EDT [facility] ([facility]) L50.2 Urticaria due to cold and heat Urticaria due to cold a nd heat Problem 08/08/2021 12:00:00 AM EDT [facility] ([facility]) Z86.718 History of thromboembolism of vein History of th romboembolism of vein Problem 08/08/2021 12:00:00 AM EDT [facility] ([facility]) N46.9 Male infertility Male infertility Problem 02/05/2021 12 :00:00 AM EDT [facility] ([facility]) F32.89 Depressive disorder Depressive disorder Problem 0 02/05/2021 12:00:00 AM EDT [facility] ([facility]) I82.409 Embolism from thrombosis of vein of dist al lower extremity Embolism from thrombosis of vein of distal lower extremity Problem 02/06/20 12:00:00 AM EDT [facility] ([facility]) N13.0 Hydronephrosis with ureteropelvic juncti on obstruction Hydronephrosis with ureteropelvic junction obstruction Problem 02/05/2021 12:00:00 AM E DT [facility] ([facility]) R31.0 Tom hematuria Tom hematuria Problem 02/05/2021 12:0 0:00 AM EDT [facility] ([facility]) R10.9 Abdominal pain Abdominal pain Problem 01/23/2021 12:00: 00 AM EDT [facility] ([facility]) Surgeries/Procedures Procedure Description Date Indications Data Source(s) OFFICE OUTPATIENT NEW 45 MINUTES 09/26/2021 12:00:00 A Domingo [facility]ENG ([facility], ) OFFICE OUTPATIENT VISIT 15 MINUTES 08/08/2021 12:00:00 AM [facility] ([facility]) [facility] outpatient clinic visit for assessment and ma nagement of a patient Hospital Outpatient Clinic Visit 08/02/2021 12:00:00 AM [facility] THYROXINE FREE ASSAY OF FREE THYROXINE 08/02/2021 12:00:00 AM [facility] THYROID STIMULATING HORMONE TSH ASSAY THYROID STIM HORMONE 0 08/02/2021 12:00:00 AM [facility] COLLECTION VENOUS BLOOD VENIPUNCTURE ROUTINE VENIPUNCTURE 12:00:00 AM [facility] PROLACTIN ASSAY OF PROLACTIN 08/02/2021 12:00:00 AM [facility] GONADOTROPIN LUTEINIZING HORMONE ASSAY OF GONADOTROPIN (LH) 08/02/2021 12:00:00 AM [facility] GONADOTROPIN FOLLICLE STIMULATING HORMONE ASSAY OF GONADOTRO PIN (FSH) 08/02/2021 12:00:00 AM [facility] OFFICE OUTPATIENT VISIT 10 MINUTES 06/18/2021 12:00:00 AM [facility]) BLOOD COUNT HEMATOCRIT <td>HEMATOCRIT</td><td>Routi ne</td><td>05/30/2021 2:15 PM EDT</td><td> Infertility male</td><td> </td> 05/30/2021 02:15:00 PM EDT [facility] Infertility male PROSTATE SPECIFIC ANTIGEN TOTAL <td>PSA</td><td>Routin e</td><td>05/30/2021 2:15 PM EDT</td><td> Infertility male</td><td> </td> 05/30/2021 02:15:00 PM EDT [facility] Infertility male ANDROLOGY <td>ANDROLOGY</td><td>Routin e</td><td>05/30/2021 12:59 PM EDT</td><td> Infertility male</td><td> </td> 05/30/2021 12:59:00 PM EDT Infertility male [facility] Infertility male RESPIRATORY PATHOGEN PANEL <td>RESPIRATORY PATHOGEN PANEL</td><td>Routine</td><td>03/22/2021 2:05 AM EDT</td><td></td><td> </td> 03/22/2021 02:05:00 AM EDT [facility] COVID-19 PCR <td>COVID-19 PCR</td><td>Rou orion</td><td>03/22/2021 2:05 AM EDT</td><td></td><td> </td> 03/22/2021 02:05:00 AM EDT [facility] RADEX SHOULDER COMPLETE MINIMUM 2 VIEWS <td>XR SHOULDE R MIN 2 VIEWS PORT-OR 93080</td><td>CODE</td><td>03/22/2021 12:07 AM EDT</td><td> Diagnosis unknown</td><td> </td> 03/22/2021 12:07:00 AM EDT Diagnosis unknown [facility] Diagnosis unknown CT LUMBAR SPINE W/O CONTRAST MATERIAL <td>CT LUMBAR SP INE WITHOUT CONTRAST 35775</td><td>STAT</td><td>03/21/2021 11:59 PM EDT</td><td></td><td> </td> 03/21/2021 11:59:51 PM EDT [facility] CT THORACIC SPINE W/O CONTRAST MATERIAL <td>CT THORACI C SPINE WITHOUT CONTRAST 55071</td><td>CODE</td><td>03/21/2021 11:59 PM EDT</td><td></td><td> </td> 03/21/2021 11:59:51 PM [facility] [address] THORAX W/CONTRAST MATERIAL <td>CT THORAX WITH CONTR AST 31384</td><td>CODE</td><td>03/21/2021 11:59 PM EDT</td><td></td><td> </td> 03/21/2021 11:59:[address] [facility] [address] ABDOEN & PELVIS W/CONTRAST MATERIAL <td>CT ABDOMEN PELVIS WITH CONTRAST 78740</td><td>CODE</td><td>03/21/2021 11:59 PM EDT</td><td></td><td> </td> 03/21/2021 11:59:[address] [facility] [address] CERVICAL SPINE W/O CONTRAST MATERIAL <td>CT CERVICA L SPINE WITHOUT CONTRAST 65626</td><td>CODE</td><td>03/21/2021 11:44 PM EDT</td><td></td><td> </td> 03/21/2021 11:44:[address] [facility] [address] HEAD/BRAIN W/O CONTRAST MATERIAL <td>CT HEAD WITHOU T CONTRAST 92963</td><td>CODE</td><td>03/21/2021 11:44 PM EDT</td><td></td><td> </td> 03/21/2021 11:44:00 PM [facility] EKG ED PHYSICIAN INTERPRETATION <td>EKG ED PHYSICIAN INTERPRETATION</td><td>Routine</td><td>03/21/2021 11:22 PM EDT</td><td></td><td> </td> 03/21/2021 11:22:55 PM [facility] EKG 12-LEAD - CMAXX REPORT <td>EKG 12-LEAD - CMAXX REPORT</td><td></td><td>03/21/2021 11:18 PM EDT</td><td></td><td></td> 03/21/2021 11:18:43 PM [facility] EKG 12-LEAD - CMAXX REPORT <td>EKG 12-LEAD - CMAXX REPORT</td><td></td><td>03/21/2021 11:18 PM EDT</td><td></td><td></td> 03/21/2021 11:18:43 PM [facility] EKG 12-LEAD <td>EKG 12-LEAD</td><td>STAT </td><td>03/21/2021 11:18 PM EDT</td><td></td><td> </td> 03/21/2021 11:18:43 PM [facility] EKG 12-LEAD - CMAXX REPORT <td>EKG 12-LEAD - CMAXX REPORT</td><td></td><td>03/21/2021 11:18 PM EDT</td><td></td><td></td> 03/21/2021 11:18:00 PM [facility] XR CHEST FRONTAL ONLY 43241 <td>XR CHEST FRONTAL ONLY 69004</td><td>STAT</td><td>03/21/2021 10:36 PM EDT</td><td> Diagnosis unknown</td><td> </td> 03/21/2021 10:36:00 PM EDT Diagnosis unknown [facility] Diagnosis unknown TROPONIN QUANTITATIVE <td>POCT ISTAT TROPONIN</td> <td>Routine</td><td>03/21/2021 10:28 PM EDT</td><td></td><td> </td> 03/21/2021 10:28:00 PM [facility] BASIC METABOLIC PANEL CALCIUM IONIZED <td>POCT ISTAT CHEM8</td><td>Routine</td><td>03/21/2021 10:26 PM EDT</td><td></td><td> </td> 03/21/2021 10:26:00 PM [facility] BLOOD GASES ANY COMBINATION PH PCO2 PO2 CO2 HCO3 <td>P OCT ISTAT VBG/LAC</td><td>Routine</td><td>03/21/2021 10:23 PM EDT</td><td></td><td> </td> 03/21/2021 10:23:00 PM [facility] DRUGS OF ABUSE, URINE <td>DRUGS OF ABUSE, URINE</t d><td>CODE</td><td>03/21/2021 10:22 PM EDT</td><td></td><td> </td> 03/21/2021 10:22:00 PM [facility] THROMBOPLASTIN TIME PARTIAL PLASMA/WHOLE BLOOD <td>PAR TIAL THROMBOPLASTIN TIME (PTT)</td><td>CODE</td><td>03/21/2021 10:22 PM EDT</td><td></td><td> </td> 03/21/2021 10:22:00 PM [facility] ACETAMINOPHEN, RANDOM <td>ACETAMINOPHEN, RANDOM</t d><td>CODE</td><td>03/21/2021 10:22 PM EDT</td><td></td><td> </td> 03/21/2021 10:22:00 PM [facility] ETHYL ALCOHOL LEVEL <td>ETHYL ALCOHOL LEVEL</td> <td>CODE</td><td>03/21/2021 10:22 PM EDT</td><td></td><td> </td> 03/21/2021 10:22:00 PM [facility] URNLS DIP STICK/TABLET REAGENT AUTO MICROSCOPY <td>URI NALYSIS WITH MICROSCOPIC</td><td>CODE</td><td>03/21/2021 10:22 PM EDT</td><td></td><td> </td> 03/21/2021 10:22:00 PM [facility] PROTHROMBIN TIME <td>PROTIME INR</td><td>CODE </td><td>03/21/2021 10:22 PM EDT</td><td></td><td> </td> 03/21/2021 10:22:00 PM [facility] FIBRINOGEN ACTIVITY <td>FIBRINOGEN LEVEL</td><td >CODE</td><td>03/21/2021 10:22 PM EDT</td><td></td><td> </td> 03/21/2021 10:22:00 PM [facility] BLOOD COUNT COMPLETE AUTO&AUTO DIFRNTL WBC COUNT <td>C BC AND DIFFERENTIAL</td><td>CODE</td><td>03/21/2021 10:22 PM EDT</td><td></td><td> </td> 03/21/2021 10:22:00 PM [facility] BLOOD TYPING ABO <td>TYPE AND SCREEN</td><td> Routine</td><td>03/21/2021 10:22 PM EDT</td><td></td><td> </td> 03/21/2021 10:22:00 PM [facility] LIPASE <td>LIPASE LEVEL</td><td>COD E</td><td>03/21/2021 10:22 PM EDT</td><td></td><td> </td> 03/21/2021 10:22:00 PM [facility] SALICYLATE LEVEL <td>SALICYLATE LEVEL</td><td >CODE</td><td>03/21/2021 10:22 PM EDT</td><td></td><td> </td> 03/21/2021 10:22:00 PM [facility] HEPATIC FUNCTION PANEL <td>HEPATIC FUNCTION PANEL A</td><td>Routine</td><td>03/21/2021 10:22 PM EDT</td><td></td><td> </td> 03/21/2021 10:22:00 PM [facility] BASIC METABOLIC PANEL CALCIUM TOTAL <td>BASIC METABOLI C PANEL</td><td>CODE</td><td>03/21/2021 10:22 PM EDT</td><td></td><td> </td> 03/21/2021 10:22:00 PM [facility] URNLS DIP STICK/TABLET REAGENT AUTO MICROSCOPY <td>URI NALYSIS WITH MICROSCOPIC</td><td>Routine</td><td>03/07/2021 7:48 AM EDT</td><td></td><td> </td> 03/07/2021 07:48:00 AM [facility] 25 HYDROXY INCLUDES FRACTIONS IF PERFORMED <td>VITAMIN D 25 HYDROXY, TOTAL</td><td>Routine</td><td>03/07/2021 6:09 AM EDT</td><td></td><td> </td> 03/07/2021 06:09:00 AM [facility] HEMOGLOBIN GLYCOSYLATED A1C <td>HEMOGLOBIN A1C</td><td>Routine</td><td>03/07/2021 6:09 AM EDT</td><td></td><td> </td> 03/07/2021 06:09:00 AM EDT [facility] LIPID PANEL <td>LIPID PANEL</td><td>Rout ine</td><td>03/07/2021 6:09 AM EDT</td><td></td><td> </td> 03/07/2021 06:09:00 AM [facility] OFFICE OUTPATIENT VISIT 10 MINUTES 02/12/2021 12:00:00 AM EDT [facility] ([facility]) OFFICE OUTPATIENT VISIT 15 MINUTES 02/05/2021 12:00:00 AM EDT [facility] ([facility]) OFFICE OUTPATIENT VISIT 25 MINUTES 01/23/2021 12:00:00 AM EDT [facility] ([facility]) OFFICE OUTPATIENT VISIT 10 MINUTES 01/15/2021 12:00:00 AM EST [facility] ([facility]) THERAPEUTIC PROPHYLACTIC/DX INJECTION SUBQ/IM 01/11/20 12:00:00 AM EST [facility] (Dylan Shi MD) ANDROLOGY <td>ANDROLOGY</td><td>Routin e</td><td>01/07/2021 12:00 AM EST</td><td></td><td> </td> 01/07/2021 12:00:00 AM [facility] ECG ROUTINE ECG W/LEAST 12 LDS W/I&R 11/07/2020 12:00: 00 AM EST [facility] (Dylan Shi MD) CV STRS TST XERS&/OR RX CONT ECG PHYS SI&R 11/07/2020 12:00:00 AM EST [facility] (Dylan Shi MD) ECHO TTHRC R-T 2D W/WOM-MODE COMPL SPEC&COLR DOP 11/07 12:00:00 AM EST [facility] (Dylan Shi MD) Brief Emotional/Behav Assessment W/ Scoring Doc Per Standard Inst 09/07/2020 12:00:00 AM EDT [facility] ([facility]) Admin Patient Focused Health Risk Assessment Instrument 09/07/2020 12:00:00 AM EDT [facility] ([facility]) Results ID Date Data Source [id number] 10/07/2021 11:02:00 AM EST [facility] Name Value Range Interpretation Code Description Data Marifer rce(s) Supporting Document(s) SARS coronavirus 2 RNA Not Detected [facility] This lab was ordered by [facility] and reported by [facility]. ID Date Data Source [id number] 09/30/2021 10:45:00 AM EST [facility] ([facility] ) Name Value Range Interpretation Code Description Data Marifer rce(s) Supporting Document(s) Helicobacter pylori Ag [Presence] in Stool Laboratory test resul t Normal (applies to non-numeric results) [facility] ([facility] ) Performed at: RN - [facility] [place] [id number] Director Compensation: Kelley Wilson MD, Phone: [phone] ID Date Data Source [id number] 09/19/2021 11:51:01 AM EST [facility] Name Value Range Interpretation Code Description Data Marifer rce(s) Supporting Document(s) Progress Note [facility] [id number] lbm [file] [id number] ID Date Data Source [id number] 09/17/2021 10:58:34 AM EST [facility] Name Value Range Interpretation Code Description Data Marifer rce(s) Supporting Document(s) Progress Note [facility] [id number] lbm [file] [id number]= ID Date Data Source [id number] 08/14/2021 12:16:00 [place] [address] PHONE: [phone] FAX: [phone] Name .................. : TOSIN WONG Nicole Acct Number.................. : [id number] ROOM. ................. : MR Number ................... : [id number] Stay type ............. : O/P Discharge Date......... ... : 08/13/21 Admit Date ......... : 08/13/21 Admit Phys .................... : KIA Date of ....... : 1990 Family Phys ................... : NON STAFF Phone .................. : [phone] Age ................................ : 31 Film# .................. .:[id number] Sex ................................. : M Unsigned transcriptions are preliminary reports and do not represent a medical or legal document DOPPLER UNILATERAL VENOUS [id number] COMPLETE:08/13/21 17:00 [id number] Reason for Exam: HX OF DVT ULTRASOUND [...] rce(s) Supporting Document(s) ID Date Data Source [id number] 08/09/2021 10:47:00 AM EDT [facility] ([facility]) Name Value Range Interpretation Code Description Data Marifer rce(s) Supporting Document(s) Anticardiolipin Ab,IgG,Qn Laboratory test result 0-14 [facility] ([facility]) .~.~<DG1.3.1>Z86.718</DG1.3.1><DG1.3.1>Z86.718</DG1.3.1><DG1.3.1>Z86.718</DG1.3. 1><D Anticardiolipin Ab,IgM,Qn 16 MPLU/mL 0-12 Above high normal [facility] ([facility]) .~.~<DG1.3.1>Z86.718</DG1.3.1><DG1.3.1>Z86.718</DG1.3.1><DG1.3.1>Z86.718</DG1.3. 1><D ID Date Data Source [id number] 08/09/2021 10:47:00 AM EDT [facility] ([facility]) Name Value Range Interpretation Code Description Data Marifer rce(s) Supporting Document(s) Dilute ProthrombinTime(dPT) 42.4 sec 0.0-55.0 [facility] ([facility]) .~.~<DG1.3.1>Z86.718</DG1.3.1><DG1.3.1>Z86.718</DG1.3.1><DG1.3.1>Z86.718</DG1.3. 1><D Thrombin Time 19.0 sec 0.0-23.0 [facility] ([facility]) .~.~<DG1.3.1>Z86.718</DG1.3.1><DG1.3.1>Z86.718</DG1.3.1><DG1.3.1>Z86.718</DG1.3. 1><D dPT Confirm Ratio 1.31 Ratio 0.00-1.40 [facility] ([facility]) .~.~<DG1.3.1>Z86.718</DG1.3.1><DG1.3.1>Z86.718</DG1.3.1><DG1.3.1>Z86.718</DG1.3. 1><D PTT-LA 31.8 sec 0.0-51.9 [facility] ([facility]) .~.~<DG1.3.1>Z86.718</DG1.3.1><DG1.3.1>Z86.718</DG1.3.1><DG1.3.1>Z86.718</DG1.3. 1><D dRVVT 41.8 sec 0.0-47.0 [facility] ([facility]) .~.~<DG1.3.1>Z86.718</DG1.3.1><DG1.3.1>Z86.718</DG1.3.1><DG1.3.1>Z86.718</DG1.3. 1><D Lupus ReflexInterpretation Laboratory test result [facility] ([facility]) .~.~<DG1.3.1>Z86.718</DG1.3.1><DG1.3.1>Z86.718</DG1.3.1><DG1.3.1>Z86.718</DG1.3. 1><D ID Date Data Source [id number] 08/09/2021 10:47:00 AM EDT [facility] ([facility]) Name Value Range Interpretation Code Description Data Marifer rce(s) Supporting Document(s) Antithrombin Antigen 81 % 72-124 [facility] ([facility]) .~.~<DG1.3.1>Z86.718</DG1.3.1><DG1.3.1>Z86.718</DG1.3.1><DG1.3.1>Z86.718</DG1.3. 1><D Antithrombin Activity 114 % 75-135 [facility] ( [facility]) .~.~<DG1.3.1>Z86.718</DG1.3.1><DG1.3.1>Z86.718</DG1.3.1><DG1.3.1>Z86.718</DG1.3. 1><D ID Date Data Source [id number] 08/09/2021 10:47:00 AM EDT [facility] ([facility]) Name Value Range Interpretation Code Description Data Marifer rce(s) Supporting Document(s) Protein C Antigen 108 % 60-150 [facility] ([facility]) .~.~<DG1.3.1>Z86.718</DG1.3.1><DG1.3.1>Z86.718</DG1.3.1><DG1.3.1>Z86.718</DG1.3. 1><D Protein S, Total 82 % 60-150 [facility] ([facility]) .~.~<DG1.3.1>Z86.718</DG1.3.1><DG1.3.1>Z86.718</DG1.3.1><DG1.3.1>Z86.718</DG1.3. 1><D Protein S, Free 115 % 61-136 [facility] ([facility]) .~.~<DG1.3.1>Z86.718</DG1.3.1><DG1.3.1>Z86.718</DG1.3.1><DG1.3.1>Z86.718</DG1.3. 1><D ID Date Data Source [id number] 08/09/2021 10:47:00 AM EDT [facility] ([facility]) Name Value Range Interpretation Code Description Data Marifer rce(s) Supporting Document(s) Fibrin D-dimer [Presence] in Platelet poor plasma Laboratory test result 0.27-0.50 [facility] ([facility]) .~.~<DG1.3.1>Z86.718</DG1.3.1><DG1.3.1>Z86.718</DG1.3.1><DG1.3.1>Z86.718</DG1.3. 1><D ID Date Data Source [id number] 08/12/2021 07:06:00 AM EDT [facility] Name Value Range Interpretation Code Description Data Marifer rce(s) Supporting Document(s) aPTT.lupus sensitive W excess phospholip id actual/Normal (normalized LA confirm) 42.4 sec 0.0-55.0 [facility] Effective August Dilute Prothrombin Time (dPT) reference interval will be changing to: 0.0 - 47.6 sec. aPTT.lupus sensitive/aPTT.lupus sensitiv e W excess phospholipid (screen to confirm ratio) 1.31 Ratio 0.00-1.40 [facility] Effective September 02 021 dPT Confirm Ratio reference interval will be changing to: 0.00 - 1.34 ratio Thrombin time 19.0 sec 0.0-23.0 [facility] sp[facility] aPTT.lupus sensitive (LA screen) 31.8 sec 0.0-51.9 [facility] dRVVT (LA screen) 41.8 sec 0.0-47.0 [facility] Lupus anticoagulant two screening tests W Reflex [interpretation] C omment: [facility] No lupus anticoagulant was detected. ID Date Data Source [id number] 08/12/2021 07:06:00 AM EDT [facility] Name Value Range Interpretation Code Description Data Marifer rce(s) Supporting Document(s) Antithrombin actual/normal in Platelet poor plasma by Chromo genic method 114 % 75-135 [facility] Direct Xa inhibitor anticoagulants such as rivaroxaban, apixaban andedoxaban will lead to spuriously elevated antithrombin activitylevels possibly masking a deficiency. Antithrombin Ag actual/normal in Platelet poor plasma by Immunologic method 81 % 72-124 [facility] This test was developed and its performa nce characteristicsdetermined by [facility]. It has not been cleared or approvedby the Food and Drug Administration. ID Date Data Source [id number] 08/12/2021 07:06:00 AM EDT [facility] Name Value Range Interpretation Code Description Data Marifer rce(s) Supporting Document(s) Protein C Ag actual/normal in Platelet poor plasma by Immuno logic method 108 % 60-150 [facility] Protein S Ag actual/normal in Platelet poor plasma by Immuno logic method 82 % 60-150 [facility] This test was developed and its performa nce characteristicsdetermined by [facility]. It has not been cleared or approvedby the Food and Drug Administration. Protein S Free Ag actual/normal in Platelet poor plasm a by Immunologic method 115 % 61-136 [facility] Please no te reference interval change ID Date Data Source [id number] 08/11/2021 06:21:00 AM EDT [facility] Name Value Range Interpretation Code Description Data Marifer rce(s) Supporting Document(s) Cardiolipin IgG Ab [Units/volume] in Serum by Immunoassay <9 GPL U/mL 0-14 [facility] Negative: <15 Indeterminate: 15 - 20 Low-Med Positive: >20 - 80 High Positive: >80 Cardiolipin IgM Ab [Units/volume] in Serum by Immunoassay 16 MPL U/mL 0-12 H [facility] Negative: <13 Indeterminate: 13 - 20 Low-Med Positive: >20 - 80 High Positive: >80 ID Date Data Source [id number] 08/09/2021 11:44:00 AM EDT [facility] Name Value Range Interpretation Code Description Data Marifer rce(s) Supporting Document(s) Fibrin D-dimer FEU [Mass/volume] in Platelet poor plasma <0. 27 ug/mL 0.27 - 0.50 [facility] ID Date Data Source [id number] 08/08/2021 04:13:00 PM EDT [facility] ([facility]) Name Value Range Interpretation Code Description Data Marifer rce(s) Supporting Document(s) US Doppler Unilateral Venous Leg LT Laboratory test result [facility] ([facility]) ID Date Data Source [id number] 08/02/2021 07:23:00 PM EDT [facility] Name Value Range Interpretation Code Description Data Marifer rce(s) Supporting Document(s) Free T4 (Free Thyroxine) 0.76-1.46 Normal (applies to non -numeric results) [facility] ID Date Data Source [id number] 08/02/2021 07:24:00 PM EDT [facility] Name Value Range Interpretation Code Description Data Marifer rce(s) Supporting Document(s) Prolactin 2.5-17.4 Normal (applies to non-numeric resul ts) [facility] Hospital ID Date Data Source [id number] 08/02/2021 07:24:00 PM EDT [facility] Name Value Range Interpretation Code Description Data Marifer rce(s) Supporting Document(s) FSH 0.7-10.8 Above high normal [facility] Hospital ID Date Data Source [id number] 08/02/2021 07:24:[address] [facility] Name Value Range Interpretation Code Description Data Marifer rce(s) Supporting Document(s) LH 1.2-10.8 Above high normal [facility] ID Date Data Source [id number] 08/02/2021 07:24:[address] [facility] Name Value Range Interpretation Code Description Data Marifer rce(s) Supporting Document(s) Thyroid Stimulate Hormone TSH 0.358-3.740 No rmal (applies to non-numeric results) [facility] ID Date Data Source [id number] 07/18/2021 10:16:00 [place] [address] PHONE: [phone] FAX: [phone] Name .................. : TALIAJENNIFER MARVIN Nicole Acct Number.................. : [id number] ROOM. ................. : TR-05 Number ................... : [id number] Stay type ............. : E/R Discharge Date......... ... : 07/18/21 Admit Date ......... : 07/18/21 Admit Phys .................... : SAMANTHA WADE Date of ....... : 1990 Family Phys ................... : NON STAFF Phone .................. : [phone] Age ................................ : 31 Film# .................. .:[id number] Sex ................................. : M Unsigned transcriptions are preliminary reports and do not represent a medical or legal document CT ABD & PELV W/O ORAL W/[place] [id number] COMPLETE:07/18/21 06:49 MWB 94716 Reason(s): left flank pa in x 2 [...] or obstruction. No Page 1 of 2 [facility] [address] [place] [address] PHONE: [phone] FAX: [phone] Name .................. : LILIANEBENEZER MARVIN Nicole Acct Number.................. : [id number] ROOM. ................. : TR-05 MR Number ................... : [id number] Stay type ............. : E/R Discharge Date......... ... : 07/18/21 Admit Date ......... : 07/18/21 Admit Phys .................... : SAMANTHA OLVERA Date of ....... : 1990 Family Phys ................... : NON STAFF Phone .................. : [phone] Age ................................ : 31 Film# .................. .:[id number] Sex ................................. : M Unsigned transcriptions are preliminary reports and do not represent a medical or legal document CT ABD & PELV W/[place] ORAL W/[place] [id number] COMPLETE:07/18/21 06:49 MWB 07546 Reason(s): left flank pain x 2 days, [...] rce(s) Supporting Document(s) ID Date Data Source [id number] 07/18/2021 04:01:00 AM EDT [facility] 1 OrderSheet [facility] Emergency Department [address] [place] [address] Phone #: ext- [phone] 07/18/2021 04:01 Patient: MARVIN LEAHY Sex: M : 1990 Age: 31yWEIGHT:95.2 kg (S) HEIGHT:68 inches (S) BMI:31.9ALLERGIES: None, SeafoodCHIEF COMPLAINT: abdominal painDIAGNOSIS: Mesenteric lymphadenitis, Abdominal painLAB ORDERSOrder Description Priority Entered Acknowledged [facility] 04:38 07/18/2021 04:58 [...] 25mg 04:39 07/18/2021 05:41 Belia, 2 OrderSheet [facility] Emergency Department [address] [place] [address] Phone #: ext- [phone] 07/18/2021 04:01 Patient: [...] rce(s) Supporting Document(s) ID Date Data Source [id number] 07/18/2021 04:01:00 AM EDT [facility] 1 Medication Reconciliation Report [facility] Emergency Department [address] [place] [address] Phone #: ext- [phone] 07/18/2021 04:01 Patient: MARVIN LEAHY Sex: M : 1990 Age: 31yWeight: 95.2 kgHeight/Length: 68 in.BMI: 31.9ALLERGIES: None, SeafoodThe patient's Home Medications are listed below:CONTINUE TAKING THE FOLLOWING MEDICATIONS: allergy medicine daily Eliquis Oral (2.5 mg), 2x a day Escitalopram Oxalate Oral (10 mg), 2x a day Ivermectin Oral (3 mg) 3 tabs, every 6 months Pregnyl Intramuscular (52248 unit), 3x a week traZODone HCl Oral [...] rce(s) Supporting Document(s) ID Date Data Source [id number] 07/18/2021 04:01:00 AM EDT [facility] 1 Medication Administration Record [facility] Emergency Department [address] [place] [address] Phone #: ext- [phone] 07/18/2021 04:01 Patient: MARVIN LEAHY Sex: M : 1990 Age: 31yWeight: 95.2 kgHeight/Length: 68 inBMI: 31.9ALLERGIES: None, Seafood Date/Time Medication Administered Medication OrderedStart NS [IV] NS IV : Bolus 500 mL, then 65431:40 07/18/2021 Dose: IV Fluids mL/hrLoElizabeth craft, R.NYang Dispensed: 1000 mL bag---- Site: #1 right yklkcmlQkgf54:50 1BConsuelo montesinos,Imani PHENERGAN [IVPB] Phenergan IV 25mg in 50mL NS,05:41 07/18/2021 Dose: 25 mg IVPB give wide open: 25 mg (NOW x1,Elizabeth Celaya, R.N. Dispensed: 50 mL bag HIGH ALERT MEDICATION)---- Site: #1 right iwfjlyiKlvm50:41 1LofElizabeth valencia R.NYangGiven PROTONIX [IVP] (PANTOPRAZOLE Protonix IV Push 40 mg (in 10 mL05:41 07/18/2021 SODIUM) NS, administer over at least 2LoftElizabeth varela, R.N. Dose: 40 mg IVP minutes, NOW x1) Site: #1 right forearm Name Value Range Interpretation Code Description Data Marifer rce(s) Supporting Document(s) ID Date Data Source [id number] 07/18/2021 04:01:00 AM EDT [facility] 1 General Instructions [facility] Emergency Department [address] [place] [address] Phone #: ext- [phone] 07/18/2021 04:01 Patient: [...] every 6 months.Pregnyl Intramuscular : Solution Reconstituted 87817 unit, 3x a week.traZODone HCl Oral : Tablet 50 mg, daily.Xolair Subcutaneous : Solution Reconstituted 150 mg, 300mg 3x a week.F ollow-up:Return to the emergency department as needed. Follow up with your healthcare provider in two dayseven if well. Call for an appointment. Reason for referral: evaluation, treatment and GI REFERRAL.Summary of care provided to patient via paper. Follow up with a business trainer in five days even ifwell. Call for an appointment. Reason for referral: evaluation and treatment. Summary of care provided topatient via paper.Understanding of the discharge instructions verbalized by patient. Expected course of illness, dischargeinstructions, activity level, diet, follow-up appointment and risks and benefits of treatment reviewed withpatient and understanding verbalized. Agrees to plan of care. 2 General Instructions [facility] Emergency Department [address] [place] [address] Phone #: ext- [phone] 07/18/2021 04:01 Patient: [...] as advised. In some 3 General Instructions [facility] Emergency Department [address] [place] [address] Phone #: ext- [phone] 07/18/2021 04:01 Patient: [...] chest, arm, back, neck or jaw pain [id number] [employer] [address] [place] [address], [place] [address]. All rights reserved. This information is not [...] Fever Loss of appetite 4 General Instructions [facility] Emergency Department [address] [place] [address] Phone #: ext- [phone] 07/18/2021 04:01 Patient: [...] will be told if there are changes.Call [phone] [phone] if any of these occur: Trouble breathing Confusion Very drowsy or trouble awakening Fainting or loss of consciousness Rapid heart rate Chest pain 5 General Instructions [facility] Emergency Department [address] [place] [address] Phone #: ext- [phone] 07/18/2021 04:01 Patient: [...] skin Swelling in the abdomen Bloody stools [phone] [employer] [address] [place] [address]. All rights reserved. This information is not intended as asubstitute for professional medical care. Always follow your healthcare professional's instructions. You have been given the following additional information: Unknown Causes of Abdominal Pain (Male) Adenitis, Mesenteric(Electronically signed by Evelio Luna M.D. 07/18/2021 06:56) Name Value Range Interpretation Code Description Data Marifer rce(s) Supporting Document(s) ID Date Data Source [id number] 07/18/2021 04:01:00 AM EDT [facility] 1 Clinical Report - Nurses [facility] Emergency Department [address] [place] [address] Phone #: ext- [phone] 07/18/2021 04:01 Patient: [...] LEVEL 3.Chief Complaint: ABDOMINAL PAIN.Onset. 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 --04:15 07/18/21 Elizabeth Celaya R.N.04:10 07/18/21. BP: [...] every 6 months. Pregnyl Intramuscular (Solution Reconstituted 71599 unit), 3x a week. traZODone HCl Oral (Tablet 50 mg), daily. Xolair Subcutaneous (Solution Reconstituted 150 mg) 300mg, 3x a week. --04:11 07/18/21 Elizabeth Celaya R.N.AllergiesNone.Seafood. --04:11 07/18/21 Elizabeth Celaya R.N.PROBLEMS:Gastroenteritis.G6Pd Deficiency.Gastroesophageal Reflux Disease.Hypertension.Hematuria.Flank Pain. 2 Clinical Report - Nurses [facility] Emergency Department [address] [place] [address] Phone #: ext- [phone] 07/18/2021 04:01 Patient: MARVIN LEAHY Sex: M : 1990 Age: 31yDVT - Deep Venous Thrombosis.Dehydration.Diarrhea.Hypokalemia.Testosterone deficiency.Syncope.Ureterolithiasis.Vomiting.Urinary Calculi.Sleep Apnea: (New diagnosis, Seen Thursday in [place] for CPAP treatment).Lumbar Strain.Insomnia.Nephrolithiasis.Skin Problems.Renal Colic. --04:12 [...] Celaya R.N. 3 Clinical Report - Nurses [facility] Emergency Department [address] [place] [address] Phone #: ext- [phone] 07/18/2021 04:01 Patient: MARVIN LEAHY Sex: M [...] --04: Elizabeth Celaya R.N. Patient transported to DC by wheelchair. --05:20 07/18/21 Elizabeth Celaya R.N. [...] at this 4 Clinical Report - Nurses [facility] Emergency Department [address] [place] [address] Phone #: ext- [phone] 07/18/2021 04:01 Patient: [...] Patient verbalized understanding. Written instructions provided in Finnish. The patient was discharged by the physician. He was discharged home and unaccompanied at time of discharge. He left ambulatory and via private vehicle. Household Manager driving. --07:51 07/18/21 Consuelo Dumas 07:49 07/18/21. BP: 121/61. HR: 63. RR: 15. O2 saturation: 99%. Temp: 98.1 F. Pain level now 0/10. --07:51 07/18/21 Consuelo Dumas.Locked/Released at 07/18/2021 07:51 by Consuelo Dumas 5 Clinical Report - [facility] Emergency Department [address] [place] [address] Phone #: ext- [phone] 07/18/2021 04:01 Patient: MARVIN LEAHY Sex: M : 1990 Age: 31y Name Value Range Interpretation Code Description Data Marifer rce(s) Supporting Document(s) ID Date Data Source [id number] 07/18/2021 04:01:00 AM EDT [facility] 1 Clinical Report - Physicians/Mid Levels [facility] Emergency Department [address] [place] [address] Phone #: ext- [phone] 07/18/2021 04:01 Patient: [...] Thrombosis. Dehydration. 2 Clinical Report - Physicians/Mid [facility] Emergency Department [address] [place] [address] Phone #: ext- [phone] 07/18/2021 04:01 Patient: MARVIN LEAHY Sex: M : 1990 Age: 31y Diarrhea. Hypokalemia. Testosterone deficiency. Syncope. Ureterolithiasis. Vomiting. Urinary Calculi. Sleep Apnea. (New diagnosis, Seen Thursday in [place] for CPAP treatment) Lumbar Strain. Insomnia. Nephrolithiasis. Skin Problems. Renal Colic. Additional Surgeries: Ureteral Stent. Uroscopy. Medications: allergy medicine daily. Eliquis Oral (Tablet 2.5 mg), 2x a day. Escitalopram Oxalate Oral (Tablet 10 mg), 2x a day. Ivermectin Oral (Tablet 3 mg) 3 tabs, every 6 months. Pregnyl Intramuscular (Solution Reconstituted 80069 unit), 3x a week. traZODone HCl Oral [...] supple. 3 Clinical Report - Physicians/Mid Levels [facility] Emergency Department [address] [place] [address] Phone #: ext- [phone] 07/18/2021 04:01 [id number] Sex: [facility] : 1990 Age: 31y CVS: [...] No sensory deficit.LABS, X-RAYS, AND EKGAbdominal CT: [facility] Call: [phone] Online chat: [email or web address] Name: MARVIN LEAHY (Age): 1990 31 Gender: MDate of Exam: 07/18/2021 Physician: EVELIO LUNA # of Images: [phone] As: CT ABDOMEN/PELVIS WOCONFIDENTIALITY STATEMENTThis report is intended only for the use of the referring physician, and only in accordance with law, If youreceived this in error, call [phone] 1 of 1PROCEDURE INFORMATION:Exam: CT Abdomen And [...] seen 4 Clinical Report - Physicians/Mid Levels [facility] Emergency Department [address] [place] [address] Phone #: ext- [phone] 07/18/2021 04:01 Patient: MARVIN LEAHY Sex: M : 1990 Age: 31yin mesenteric adenitis.Urinary bladder: Unremarkable as visualized.Reproductive: Unremarkable as visualized.Bones/joints: Unremarkable. No acute fracture.Soft tissues: Unremarkable.IMPRESSION:Findings that could reflect mesenteric adenitisThank you for allowing us to participate in the care of your patient.Dictated and Authenticated by: Manuelito Sanchez MD07/18/2021 6:45 AM Eastern Time ([facility]). Study type: abdomen and pelvis. Abdominal CTperformed [...] 99) 5 Clinical Report - Physicians/Mid Levels [facility] Emergency Department [address] [place] [address] Phone #: ext- [phone] 07/18/2021 04:01 Patient: [...] TO UA CULTURE: (DERRICK: 07/18/2021 05:35) ( [facility] 07/18/2021 05:49) Final results Test Result Flag [...] NONE Lactic Acid: (DERRICK: 07/18/2021 04:52) ( [facility] 07/18/2021 05:07) Final results Test Result Flag Units (Reference) LACTIC ACID 1.4 MMOL/L (0.2 - 2.2). 6 Clinical Report - Physicians/Mid Levels [facility] Emergency Department [address] [place] [address] Phone #: [phone]- [phone] 07/18/2021 04:01 Patient: MARVIN LEAHY Sex: M [...] day. 7 Clinical Report - Physicians/Mid Levels [facility] Emergency Department [address] [place] [address] Phone #: ext- [phone] 07/18/2021 04:01 Patient: MARVIN LEAHY [facility]#: [id number] Sex: M : 1990 Age: 31y Ivermectin Oral : Tablet 3 mg, 3 tabs every 6 months. Pregnyl Intramuscular : Solution Reconstituted 38126 unit, 3x a week. traZODone HCl Oral [...] patient via paper. Follow up with a business trainer in five days even if well. Call [...] Name Value Range Interpretation Code Description Data [facility] rce(s) Supporting Document(s) ID Date Data Source [id number] 07/18/2021 05:48:00 AM EDT [facility] Name Value Range Interpretation Code Description Data [facility] rce(s) Supporting Document(s) UA REFLEX TO UA CULTURE [facility] URINALYSIS SOURCE R [facility] COLOR yellow NORMAL: Yellow [facility] CLARITY clear NORMAL: Clear [facility] Specific gravity of Urine by Test strip 1.025 1.001 - 1.030 [facility] pH 6 5 - 9 [facility] Glucose [Mass/volume] in Urine by Test strip NORM NORMAL: Negat xiomara [facility] Bilirubin.total [Presence] in Urine by Test strip NEG NORMAL: Negative [facility] Ketones [Presence] in Urine by Test strip NEG NORMAL: Negative [facility] Protein [Mass/volume] in Urine by Test strip NEG NORMAL: Negat xiomara [facility] Nitrite [Presence] in Urine by Test strip NEG NORMAL: Negative [facility] BLOOD 10 NORMAL: Negative A [facility] Leukocyte esterase [Presence] in Urine by Test strip NEG LLUVIA L: Negative [facility] Urobilinogen [Mass/volume] in Urine by Test strip NOR less fidelia n 1.0 mg/dL [facility] MICROSCOPIC See Below [facility] ital WBC 1 - 3 NORMAL: NONE SEEN [facility] Erythrocytes [#/volume] in Urine by Test strip 5 - 7 NORMAL: NON E SEEN A [facility] EPITHELIAL FEW NORMAL: NONE SEEN [facility] Bacteria [Presence] in Urine sediment by Light microscopy 1+ SMALL NORMAL: NONE SEEN [facility] Mucus [Presence] in Urine sediment by Light microscopy 2+ NOR MAL: NONE SEEN [facility] ID Date Data Source [id number] 07/18/2021 05:24:00 AM EDT [facility] Name Value Range Interpretation Code Description Data Marifer rce(s) Supporting Document(s) CBC W/AUTOMATED DIFF [facility] COMPLETE BLOOD COUNT Leukocytes [#/volume] in Blood by Automated count 5.5 10^3/uL 4.2 - 1 1.0 [facility] Erythrocytes [#/volume] in Blood by Automated count 4.78 10^6/uL 4. 50 - 6.30 [facility] Hemoglobin [Mass/volume] in Blood 13.9 g/dL 14.0 - 16.0 L [facility] Hematocrit [Volume Fraction] of Blood by Automated count 42.4 % 4 1.0 - 51.0 [facility] Erythrocyte mean corpuscular volume [Entitic volume] by Auto mated count 88.7 fL 80.0 - 94.0 [facility] Erythrocyte mean corpuscular hemoglobin [Entitic mass] by Automated count 29.1 pg 27.0 - 34.0 [facility] Erythrocyte mean corpuscular hemoglobin concentration [Mass/volume] by Automated count 32.8 g/dL 31.0 - 36.0 [facility] Erythrocyte distribution width [Ratio] by Automated count 12.5 % 11.5 - 14.8 [facility] Platelets [#/volume] in Blood by Automated count 198 10^3/uL 150 - 45 0 [facility] Platelet mean volume [Entitic volume] in Blood by Automated count 10.2 fL 7.4 - 10.4 [facility] Neutrophils/100 leukocytes in Blood by Automated count 40.7 % 37. 0 - 80.0 [facility] Lymphocytes/100 leukocytes in Blood by Manual count 44.9 % 25.0 - 40.0 H [facility] Monocytes/100 leukocytes in Blood by Automated count 11.3 % 3.0 - 8.0 H [facility] Eosinophils/100 leukocytes in Blood by Automated count 2.2 % 0.0 - 7.0 [facility] Basophils/100 leukocytes in Blood by Automated count 0.5 % 0.0 - 2.0 [facility] %IG 0.4 % 0.0 - 0.0 [facility] %NRBC 0.0 % 0.0 - 0.0 [facility] al Neutrophils [#/volume] in Blood by Automated count 2.24 10^3/uL 2.00 - 6.90 [facility] Lymphocytes [#/volume] in Blood by Automated count 2.47 10^3/uL 0.60 - 3.40 [facility] Monocytes [#/volume] in Blood by Automated count 0.62 10^3/uL 0.00 - 0.90 [facility] Eosinophils [#/volume] in Blood by Automated count 0.12 10^3/uL 0.00 - 0.70 [facility] Basophils [#/volume] in Blood by Automated count 0.03 10^3/uL 0.00 - 0.20 [facility] #IG 0.02 10^3/uL 0.00 - 0.10 [facility] ospital #NRBC 0.00 10^3/uL 0.00 - 0.00 [facility] MANUAL DIFF NOT INDICATED [facility] RBC MORPH NOT INDICATED [facility] ID Date Data Source [id number] 07/18/2021 05:48:00 AM EDT [facility] Name Value Range Interpretation Code Description Data Marifer rce(s) Supporting Document(s) Lipase [Enzymatic activity/volume] in Serum or Plasma 29 U/L 13 - 60 [facility] ID Date Data Source [id number] 07/18/2021 05:47:00 AM EDT [facility] Name Value Range Interpretation Code Description Data Marifer rce(s) Supporting Document(s) COMPREHENSIVE METABOLIC PANEL [facility] COMPREHENSIVE METABOLIC PANEL Sodium [Moles/volume] in Serum or Plasma 139 mEq/L 134 - 153 [facility] Potassium [Moles/volume] in Serum or Plasma 4.1 mEq/L 3.6 - 5.0 [facility] Chloride [Moles/volume] in Serum or Plasma 105 mEq/L 98 - 107 [facility] Carbon dioxide, total [Moles/volume] in Serum or Plasma 26 MEQ/L 22 - 30 [facility] Glucose [Mass/volume] in Serum or Plasma 113 MG/DL 70 - 99 H [facility] BUN 11 MG/DL 7 - 21 [facility] Creatinine [Mass/volume] in Serum or Plasma 0.8 MG/DL 0.7 - 1.5 [facility] BUN/CREAT 14 8 - 27 [facility] al Protein [Mass/volume] in Serum or Plasma 7.7 G/DL 6.3 - 8.2 [facility] Albumin [Mass/volume] in Serum or Plasma 4.5 G/DL 3.9 - 5.0 [facility] Globulin [Mass/volume] in Serum by calculation 3.2 GM/DL 2.4 - 3.2 [facility] A/G RATIO 1.4 0.8 - 2.0 [facility] Calcium [Mass/volume] in Serum or Plasma 9.5 MG/DL 8.4 - 10.2 [facility] Bilirubin.total [Mass/volume] in Serum or Plasma <0.7 MG/DL 0.2 - 1.3 [facility] Alkaline phosphatase [Enzymatic activity/volume] in Serum or Plasma 70 U/L 38 - 126 [facility] Aspartate aminotransferase [Enzymatic activity/volume] in Serum or Plasma 41 U/L 5 - 40 H [facility] Alanine aminotransferase [Enzymatic activity/volume] in Seru m or Plasma 34 U/L 7 - 56 [facility] Anion gap 3 in Serum or Plasma 8.0 mmol/L 8.0 - 16.0 [facility] AGE [address] [facility] NON-AA GFR >60 mL/min [facility] AFR AMER GFR >60 mL/min [facility] Male GFR In [...] >32 mL/min Normal ID Date Data Source [id number] 07/18/2021 05:06:00 AM EDT [facility] Name Value Range Interpretation Code Description Data Marifer rce(s) Supporting Document(s) Lactate [Moles/volume] in Serum or Plasma 1.4 MMOL/L 0.2 - 2.2 [facility] ID Date Data Source [id number] 07/04/2021 12:14:00 AM EDT [facility] Name Value Range Interpretation Code Description Data Marifer rce(s) Supporting Document(s) SARS coronavirus 2 RNA [Presence] in Res piratory specimen by LENNOX with probe detection NEGATIVE [facility] This lab was ordered by [facility] a nd reported by [facility]. ID Date Data Source [id number] 07/03/2021 06:52:00 PM EDT [facility] Name Value Range Interpretation Code Description Data Marifer rce(s) Supporting Document(s) SARS coronavirus 2 RNA [Presence] in Res piratory specimen by LENNOX with probe detection NEGATIVE [facility] This lab was ordered by [facility] a nd reported by [facility]. ID Date Data Source [id number] 06/18/2021 02:20:00 PM EDT [facility] ([facility]) Name Value Range Interpretation Code Description Data Marifer rce(s) Supporting Document(s) Color of Urine Laboratory test result [facility] ([facility]) Appearance of Urine Laboratory test result [facility] ([facility]) Spec [place] 1.005 1.001-1.030 [facility] ([facility]) pH of Urine by Test strip 8 5-9 [facility] ([facility]) Leukocytes Laboratory test result [facility] ([facility]) Nitrate [Presence] in Urine Laboratory test result [facility] ([facility]) Protein [Presence] in Urine by Test strip Laboratory test result [facility] ([facility]) Inhouse Glucose Laboratory test result [facility] ([facility]) Ketones [Presence] in Urine by Test strip Laboratory test result [facility] ([facility]) Urobilinogen Laboratory test result [facility] ([facility]) Bilirubin.total [Presence] in Urine by Test strip Laboratory test res ult [facility] ([facility]) Blood type and Indirect antibody screen panel - Blood Laboratory test result [facility] ([facility]) ID Date Data Source [id number] 06/10/2021 11:30:00 AM EDT [facility] 1 OrderSheet [facility] Emergency Department [address] [place] [address] Phone #: ext- [phone] 06/10/2021 11:26 Patient: MARVIN LEAHY Sex: M [...] rce(s) Supporting Document(s) ID Date Data Source [id number] 06/10/2021 11:30:00 AM EDT [facility] 1 Medication Reconciliation Report [facility] Emergency Department [address] [place] [address] Phone #: ext- [phone] 06/10/2021 11:26 Patient: MARVIN LEAHY Sex: M : 1990 Age: 31yWeight: 91.6 kgHeight/Length: 68 in.BMI: 30.7ALLERGIES: None, SeafoodThe patient's Home Medications are listed below:THE FOLLOWING MEDICATIONS NEED TO BE RECONCILED: allergy medicine daily Eliquis Oral (2.5 mg), 2x a day Escitalopram Oxalate Oral (10 mg), 2x a day Ivermectin Oral (3 mg) 3 tabs, every 6 months Pregnyl Intramuscular (61374 unit), 3x a week traZODone HCl Oral [...] Dispense 30 tablet.Refills: 0. Substitution permitted.[facility] [id number] ; [place] [address]. . 2 Medication Reconciliation Report [facility] Emergency Department [address] [place] [address] Phone #: [phone]- [phone] 06/10/2021 11:26 Patient: MARVIN LEAHY Sex: M : 1990 Age: 31yZofran 4 mg tablet Take 1 tablet three times a day for 10 days -- Dispense 30 tablet. Refills: 0.Substitution permitted.[facility] [id number] ; [place] [address]. FaxNumber: . -- PERLA Cisse Name Value Range Interpretation Code Description Data Marifer rce(s) Supporting Document(s) ID Date Data Source [id number] 06/10/2021 11:30:00 AM EDT [facility] 1 Medication Administration Record [facility] Emergency Department [address] [place] [address] Phone #: ext- [phone] 06/10/2021 11:26 Patient: [...] rce(s) Supporting Document(s) ID Date Data Source [id number] 06/10/2021 11:30:00 AM EDT [facility] 1 General Instructions [facility] Emergency Department [address] [place] [address] Phone #: ext- [phone] 06/10/2021 11:26 Patient: [...] Dispense 30 tablet.Refills: 0. Substitution permitted.Pharmacy - [facility] - [id number] ; [place] [address]. .Zofran 4 mg tablet Take 1 tablet three times a day for 10 days -- Dispense 30 tablet. Refills: 0.Substitution permitted.Pharmacy - [facility] - [id number] ; [place] [address]. .Follow-up:Follow up with your doctor. Reason for referral: evaluation, treatment and refer to Gastroenterolgy.Summary of care provided to patient. ADDITIONAL INFORMATIONGERD (Adult) 2 General Instructions [facility] Emergency Department [address] [place] [address] Phone #: ext- [phone] 06/10/2021 11:26 Patient: MARVIN LEAHY Sex: M [...] on and off.Lifestyle changes 3 General Instructions [facility] Emergency Department [address] [place] [address] Phone #: ext- [phone] 06/10/2021 11:26 Patient: MARVIN LEAHY Sex: M [...] the back, neck, shoulder, or arm An obwc-scj-hkugyzh trial of medicine doesn't relieve your symptoms 4 General Instructions [facility] Emergency Department [address] [place] [address] Phone #: ext- [phone] 06/10/2021 11:26 Patient: MARVIN LEAHY Sex: M : 1990 Age: 31y Weight loss that can't be explained Trouble or pain swallowing Frequent vomiting (can't keep down liquids) Bl ood in the stool or vomit (red or black in color) Feeling weak or dizzy Fever of 100.4F (38C) or higher, or as directed by your healthcare provider [phone] [employer]. [address] [place] [address]. All rights reserved. This information is not intended as asubstitute for professional medical care. Always follow your healthcare professional's instructions. You have been given the following additional information: GERD (Adult) Do not work today.(Electronically signed by PERAL Cisse 06/10/2021 17:28) Name Value Range Interpretation Code Description Data Marifer rce(s) Supporting Document(s) ID Date Data Source [id number] 06/10/2021 11:30:00 AM EDT [facility] 1 Clinical Report - Nurses [facility] Emergency Department [address] [place] [address] Phone #: ext- [phone] 06/10/2021 11:26 Patient: MARVIN LEAHY Sex: M : 1990 Age: 31yTRIAGEArrived by private vehicle. Historian: patient. Unaccompanied. ( epigastic burning (has had before)started to get better than [facility] and then it was worse).Acuity: LEVEL 3.Chief Complaint: ABDOMINAL PAIN and (epigastric buring).Alert.Onset. 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 SEPSIS SCREEN NEGATIVE. [...] every 6 months. Pregnyl Intramuscular (Solution Reconstituted 36359 unit), 3x a week. traZODone HCl Oral (Tablet 50 mg), daily. Xolair Subcutaneous (Solution Reconstituted 150 mg) 300mg, 3x a week. --13:05 06/10/21 Michelle Rowland R.N.AllergiesNone.Seafood. --13:05 06/10/21 Michelle Rowland R.N.PROBLEMS:Gastroenteritis.G6Pd Deficiency.Hematuria.Hypokalemia. 2 Clinical Report - Nurses [facility] Emergency Department [address] [place] [address] Phone #: ext- [phone] 06/10/2021 11:26 Patient: MARVIN LEAHY Sex: M : 1990 Age: 31yHypertension.Flank Pain.Chronic Back Pain.Abdominal Pain.Dehydration.DVT - Deep Venous Thrombosis.Diarrhea.Testosterone deficiency.Syncope.Ureterolithiasis.Vomiting.Urinary Calculi.Sleep Apnea: (New diagnosis, Seen Thursday in [place] for CPAP treatment).Lumbar Strain.Insomnia.Nephrolithiasis.Skin Problems.Renal Colic. --13:06/10/21 [...] no barriers. 3 Clinical Report - Nurses [facility] Emergency Department [address] [place] [address] Phone #: ext- [phone] 06/10/2021 11:26 Patient: MARVIN LEAHY Sex: M [...] F. Pain level now 01/16. 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 No learning barriers present. Discharge instructions provided and reviewed with the patient. Reviewed medication(s) side effects, precautions, dosing and course information. Prescription(s) sent electronically to pharmacy. No prescription given to the patient. Reviewed fever care instructions. Patient verbalized understanding. Written instructions provided in Finnish. The patient was discharged home and unaccompanied at time of discharge. He left ambulatory and via private vehicle. Patient driving. --13:57 06/10/21 Michelle Rowland R.N. Departure time: 13:57 06/10/2021. --13:57 06/10/21 Michelle Rowland R.N. 4 Clinical Report - Nurses [facility] Emergency Department [address] [place] [address] Phone #: ext- [phone] 06/10/2021 11:26 [id number] Sex: M : 1990 Age: 31yLocked/Released at 06/10/2021 13:57 by Michelle Rowland R.N. Name Value Range Interpretation Code Description Data Marifer rce(s) Supporting Document(s) ID Date Data Source [id number] 06/10/2021 11:30:00 AM EDT [facility] 1 Clinical Report - Physicians/Mid Levels [facility] Emergency Department [address] [place] [address] Phone #: ext- [phone] 06/10/2021 11:26 Patient: [...] Calculi.Sleep Apnea. (New diagnosis, Seen Thursday in [place] for CPAP treatment)Lumbar Strain.Insomnia. 2 Clinical Report - Phys icians/Mid Levels [facility] Emergency Department [address] [place] [address] Phone #: ext- [phone] 06/10/2021 11:26 Patient: MARVIN LEAHY Sex: M : 1990 Age: 31y Nephrolithiasis. Skin Problems. Renal Colic. Additional Surgeries: Ureteral Stent. Uroscopy. Medications: allergy medicine daily. Eliquis Oral (Tablet 2.5 mg), 2x a day. Escitalopram Oxalate Oral (Tablet 10 mg), 2x a day. Ivermectin Oral (Tablet 3 mg) 3 tabs, every 6 months. Pregnyl Intramuscular (Solution Reconstituted 11277 unit), 3x a week. traZODone HCl Oral [...] follow-up. 3 Clinical Report - Physicians/Mid Levels [facility] Emergency Department [address] [place] [address] Phone #: ext- [phone] 06/10/2021 11:26 Patient: MARVIN LEAHY Sex: M [...] tablet. Refills: 0. Substitution permitted. Pharmacy - [facility] - [address] ; [place] [address]. . Zofran 4 mg tablet Take 1 tablet three times a day for 10 days -- Dispense 30 tablet. Refills: 0. Substitution permitted. Pharmacy - [facility] [address] ; [place] [address]. . Follow-up: Follow up with your doctor. Reason for referral: evaluation, treatment and refer to Gastroenterolgy. Summary of care provided to patient.(Electronically signed by PERLA Cisse 06/10/2021 17:28) Name Value Range Interpretation Code Description Data Marifer rce(s) Supporting Document(s) ID Date Data Source [id number] 06/07/2021 08:52:11 AM EDT [facility] Name Value Range Interpretation Code Description Data Marifer rce(s) Supporting Document(s) Progress Note [facility] WIVAFl4tEfKPXaWc40/KDVjtZBOtp5KxHJooJDo9OCnnSJOkH8DsXTQ5kJ8kUVG4CSnQKhSmQtTcCiVi lbm [file] taker WewLptEf9uIgXwLYAzmG/toA4y6RBdsVZsJXKxWxVfqMVNHGyPpsz2QO0Qkzu3ICpF5C/CZ1b9vPWjFj qs/k75WVpcl2Ov989zHc8yypjArCZB2Zxff7ElyH9a dOA0i1yLkK/56l+v3f+V30X6EEnT07T+lOCndehD0cFp73eAoZg0y1poXk+cqk5E3I7tpF81S9pmaCsM qR0a80656qqYQoTGGjeg49zGzTwOC4MUG0D80Q9ZrliES+vcDj76Gk/NOer28jp1SSKIbr8IkwGkUFp5 t1aT2Iyv56st5gwN0YvqDyjLox9SpotiT9of5+WLbS AtlI5NC5SLJJE2pAH6K1ZTvBwnfYR7mZz/sy0o0X1AaGJzvWSavIjrEFxznje8OM52LaETkkrxUqyIKa 820Dx0knUY5aKKFmdx8gCJfRFv4sBV8clkRJ21JcFWWAMrz7nAFfQ3eTity6X4Xd0q3Tmx3jORkevI6B IEvLX1Gb/hbISPkCtcpvcE8BpI7/obLm300+5QM1Mf 6EWqjv6FvqU/KaPaPAZJ7yKY+r+QP4Yrvd6OjHwa6gOe9NjapjBnL26hsQ/fberv4XCmJ7ZT+74xRlLX Pfn/Mt4egFdnrzIG+4/PB1YP0v9Gg+cFb3YG97xbUoN7Dg4zvL0KwcJewXnyud3Yec5Sns9XIyPWIE3P 5PKIpk6EY2olr10Oc69jY28mpuq5LOor60mqNoP284 [file] BREWING TECHNICIAN/Eo8D0wbyg1R/DpX8wufSjbPFby4y6GDAyojSRKRLvf3KsTt9AVTP7p6WphBokLZ5vr6L8eG+FgWe [file] ICAgICAgICAgICAgICAgICAgICAgICAgICAgICAgICAgICAgICAgICAgICAgICAgICAgICAgICAgICAg ICAgICAgICAgICAgICAgICAgICAgICAgICANCiAgICAgICAgICAgICAgICAgICAgICAgICAgICAgICAg ICAgICAgICAgICAgICAgICAgICAgICAgICAgICAgIC AgICAgICAgICAgICAgICAgICAgICAgICAgICAgICAgICAgICANCiAgICAgICAgICAgICAgICAgICAgIC AgICAgICAgICAgICAgICAgICAgICAgICAgICAgICAgICAgICAgICAgICAgICAgICAgICAgICAgICAgIC AgICAgICAgICAgICAgICAgICANCiAgICAgICAgICAg ICAgICAgICAgICAgICAgICAgICAgICAgICAgICAgICAgICAgICAgICAgICAgICAgICAgICAgICAgICAg ICAgICAgICAgICAgICAgICAgICAgICAgICAgICANCiAgICAgICAgICAgICAgICAgICAgICAgICAgICAg ICAgICAgICAgICAgICAgICAgICAgICAgICAgICAgIC AgICAgICAgICAgICAgICAgICAgICAgICAgICAgICAgICAgICAgICANCiAgICAgICAgICAgICAgICAgIC AgICAgICAgICAgICAgICAgICAgICAgICAgICAgICAgICAgICAgICAgICAgICAgICAgICAgICAgICAgIC AgICAgICAgICAgICAgICAgICAgICANCiAgICAgICAg ICAgICAgICAgICAgICAgICAgICAgICAgICAgICAgICAgICAgICAgICAgICAgICAgICAgICAgICAgICAg ICAgICAgICAgICAgICAgICAgICAgICAgICAgICAgICANCiAgICAgICAgICAgICAgICAgICAgICAgICAg ICAgICAgICAgICAgICAgICAgICAgICAgICAgICAgIC AgICAgICAgICAgICAgICAgICAgICAgICAgICAgICAgICAgICAgICAgICANCiAgICAgICAgICAgICAgIC AgICAgICAgICAgICAgICAgICAgICAgICAgICAgICAgICAgICAgICAgICAgICAgICAgICAgICAgICAgIC AgICAgICAgICAgICAgICAgICAgICAgICANCiAgICAg ICAgICAgICAgICAgICAgICAgICAgICAgICAgICAgICAgICAgICAgICAgICAgICAgICAgICAgICAgICAg ICAgICAgICAgICAgICAgICAgICAgICAgICAgICAgICAgICANCjw/uCNtV0lhqOXzqeS0O0bvYv6ZFh5X GG3th1HxQKGqUDgvasPnThpLNoDeSFAdBkhZUcn0ZE xrSE4SjSPqH3RkF9EbSPdoUZ4LGMWyQFDblZGbEBLcAUKwDqS9GJZrXVtbSU7CwIXfTFjeYRTcHBJbWv DuAALiHX8DDNPiS643meRkUy4YKy0LTmEfBR5dzs2XElGvMNBaTawNZdk7IVuqHE5IsSInoRZxFbXdMG ZWKhWnP5qwd0YwFuRrXSIYQCztDB0Dd7QaxCCwAVh+ Lx3PYO0gu9DoAKzcCvTaHH3las1JMRcVLuIrP7OmtEbxDQGoq1pzMXGxRZ8skPLpJLP4WPqiHgACccAs f6VbbTivHDWtGTBmWv3eIL8wCEBzIUD6MvSeLYPFFN0ONXSvJJQqtLCqWMSiTTHFCA7TOTeuSWH7AQUv zoNonASrANvlZW2UYHQdvwFnLyErPPKYDEw+Pg0KZW 5ga4MpJJxmUaOlUQ3rsp7ICVaNIqGqF5A8qJRkZ4L3NWndHz6CCPPyYBCdXAdrIOXDTJcfDV4SKQ8thu D3DG7ZzSPeRDXxANVgdVCyZFc9V48heAGjKLjdHL3ENQY+Jayla+On1KGPLuTXMnFWKuZtZtJQQREgDvC7 KnY7VIr2AlG1QfUJ49gQmfuoBcHIgoBY0IWS4jBBXl CCKEQB7QpNTvuO0heySjKOXvUIGNOdUbS13ckAGwNEVgPPXzMYNgZl3SHMCeM5WhjkSsvKoffzQnCYKz AEMJVQ4MEDcqpiXmvWXfaBplDL35sWtnCS9YYd0UGpEnWP6cyj1MtTCfKh4QKUDlCQ3WSEQsHPWqTCKa UIR9OSTrMdLbIJxpNUUjRMFuJEB7QGYgJRXsVM1CKd CuXMMjPjD1WtzbEJQkFAGrql9CWRLaSMJvQgM8MIWcZNYwMLZmZIfwYAGrESEzWXL2WGUjEZVdCZ6JPb XeQOGyITC1VxlhEAGkUEEapv6XUOXyIYKaPnO4HkQfYMErBDXfMUaeWOQbDJJ0JcVzMDHrUCLbGH0YMu AsUENhVRK5RmSwAOMpJXWngw7AKYQsTFWzGaXmTWMs BAVyYORhMZbtVIGrRKE9ZfYlQQUqSDFbGY3CJtWaPBKcMUI1QHKaQDBbCUWfks0NVKAvFGKxOhd3RDOf CZAlLKNkBDueYGFiMOQ3OURiCDXbRVQbTB5CSoSrMBNcUUoiNTBfMELzMMFiom4IMBUrUWYgZUKyHyRa PPLeAZLbSBsfWEFjTFM1XTPzKBEvWFVzFS9GSmCfGH PuLiScFnJtRREyCOEoep4GUBFiUVBoVAN4BGCvSBNvYHSfHTkaCDOaJRVxRTI6VERnRNRaOE1WBuYzDF SeHaV9AQigLIOuYVSyvn4EZJXjGYOkNiR4CxPrWWIpJCDhYBupEUFaUAAuTRGdQUScRGCgOO2ZMnDfHI CnClC4FRMmSLQoWSIzmp9YhOOzpZlawk5CTLtTQk6Y rVgpUTV5OLzbPe8kdLAbFlQjCNHJXz5EsaYoZSFlEKZFUZssZURqBFrgRkNmEkM3OwWiVfC1LDYmERH3 Snm3JSVpGqVgGIknVbL1RRFaDOXuPgtxZAMoCvinBWAqWCv3ZXa8URE6PKMrXMD+GR0ySIa+Ts1Kk2Kx cdU0zkEkVAynKijcLS9LYCAUY3ELZi== ID Date Data Source [id number] 05/30/2021 02:03:00 PM [facility] Andrology LaboratoryName: LUIS LEAHYMRN: [id number] Number: [id number] Date: 05/30/2021 12:59Received Date: [...] Signed By: Alberto Jackson, Ph.D., [facility] 05/30/2021 14:51cak/05/30/2021 Alberto Jackson, Ph.D., [facility] Name Value Range Interpretation Code Description Data Marifer rce(s) Supporting Document(s) ID Date Data Source [id number] 05/06/2021 11:04:00 AM EDT [facility] 1 OrderSheet [facility] Emergency Department [address] [place] [address] Phone #: ext- [phone] 05/06/2021 11:02 Patient: [...] mg 11:40 05/06/2021 12:01 Dior 2 OrderSheet [facility] Emergency Department [address] [place] [address] Phone #: ext- [phone] 05/06/2021 11:02 Patient: MARVIN LEAHY Sex: M [...] rce(s) Supporting Document(s) ID Date Data Source [id number] 05/06/2021 11:04:00 AM EDT [facility] 1 Medication Reconciliation Report [facility] Emergency Department [address] [place] [address] Phone #: ext- [phone] 05/06/2021 11:02 Patient: MARVIN LEAHY Sex: M : 1990 Age: 31yWeight: 90.7 kgHeight/Length: 68 in.BMI: 30.4ALLERGIES: None, SeafoodThe patient's Home Medications are listed below:THE FOLLOWING MEDICATIONS NEED TO BE RECONCILED: allergy medicine daily Eliquis Oral (2.5 mg), 2x a day Escitalopram Oxalate Oral (10 mg), 2x a day Ivermectin Oral (3 mg) 3 tabs, every 6 months Pregnyl Intramuscular (45785 unit), 3x a week traZODone HCl Oral [...] to the patient:None. 2 Medication Reconciliation Report [facility] Emergency Department [address] [place] [address] Phone #: ext- [phone] 05/06/2021 11:02 Patient: MARVIN LEAHY Sex: M : 1990 Age: 31y Name Value Range Interpretation Code Description Data Marifer rce(s) Supporting Document(s) ID Date Data Source [id number] 05/06/2021 11:04:00 AM EDT [facility] 1 Medication Administration Record [facility] Emergency Department [address] [place] [address] Phone #: ext- [phone] 05/06/2021 11:02 Patient: MARVIN LEAHY Sex: M : 1990 Age: 31yWeight: 90.7 kgHeight/Length: 68 inBMI: 30.4ALLERGIES: None, Seafood Date/Time Medication Administered Medication OrderedStart IV NS IV NS : Bolus 1000 mL, then 615248:48 05/06/2021 Dose: IV Fluids mL/hr (x2)Dior Arvizu RN Rate: 1000 mL/hr over 1 hour(s)---- Bolus: 1000 mL over 1 hour(s)Stop Dispensed: 1000 mL bag12:49 05/06/2021 Site: #1 ALLEN Masseytart IV NS IV NS : Bolus 1000 mL, then 543688:49 05/06/2021 Dose: IV Fluids mL/hr (x2)Dior Arvizu [...] rce(s) Supporting Document(s) ID Date Data Source [id number] 05/06/2021 11:04:00 AM EDT [facility] 1 General Instructions [facility] Emergency Department [address] [place] [address] Phone #: ext- [phone] 05/06/2021 11:02 Patient: MARVIN LEAHY Sex: M [...] until your next exam. 2 General Instructions [facility] Emergency Department [address] [place] [address] Phone #: ext- [phone] 05/06/2021 11:02 Patient: MARVIN LEAHY Sex: M [...] chest, arm, back, neck or jaw pain 8623-4619 [employer]. [address] [place] [address], [place] [address]. All rights reserved. This information is not intended as asubstitute for professional medical care. Always follow your healthcare professional's instructions. 3 General Instructions [facility] Emergency Department [address] [place] [address] Phone #: ext- [phone] 05/06/2021 11:02 Patient: MARVIN LEAHY Sex: M : 1990 Age: 31yYou have been given the following additional information:Unknown Causes of Abdominal Pain (Male)Do not work today.(Electronically signed by PERLA Cisse 05/06/2021 22:28) Name Value Range Interpretation Code Description Data Marifer rce(s) Supporting Document(s) ID Date Data Source [id number] 05/06/2021 11:04:00 AM EDT [facility] 1 Clinical Report - Nurses [facility] Emergency Department [address] [place] [address] Phone #: ext- [phone] 05/06/2021 11:02 Patient: [...] has had nausea,vomiting, diarrhea and abdominal pain.Treatment MANUFACTURING QUALITY INSPECTOR:(Zofran 0400).SEPSIS SCREEN: SIRS SCREEN NEGATIVE. SEPSIS SCREEN [...] Kalie Haynes R.N. Pregnyl Intramuscular (Solution Reconstituted 11133 unit), 3x a week. traZODone HCl Oral (Tablet 50 mg), daily. Xolair Subcutaneous (Solution Reconstituted 150 mg) 300mg, 3x a week. --11:32 05/06/21 Kalie Haynes R.N.AllergiesNone.Seafood. --11:05/06/21 Kalie Haynes R.N.PROBLEMS:Dehydration. 2 Clinical Report - Nurses [facility] Emergency Department [address] [place] [address] Phone #: ext- [phone] 05/06/2021 11:02 Patient: MARVIN LEAHY Sex: M : 1990 Age: 31yDVT - Deep Venous Thrombosis.Testosterone deficiency.Ureterolithiasis.Vomiting.Urinary Calculi.Sleep Apnea: (New diagnosis, Seen Thursday in [place] for CPAP treatment).Nephrolithiasis.Renal Colic. --11:05/06/21 Kalie Haynes [...] infectious disease exposure. (Pt recently returned from [facility],). Patient is not a known carrier of [...] Haynes R.N. 3 Clinical Report - Nurses [facility] Emergency Department [address] [place] [address] Phone #: ext- [phone] 05/06/2021 11:02 Patient: MARVIN LEAHY Sex: M : 1990 Age: 31yPHYSICAL [id number]:33 05/06/21. Ambulatory to room.GENERAL / NEURO / [...] sleeping and 4 Clinical Report - Nurses [facility] Emergency Department [address] [place] [address] Phone #: ext- [phone] 05/06/2021 11:02 Patient: [...] Patient verbalized understanding. Written instructions provided in Finnish. The patient was discharged home and accompanied by side guider. He left ambulatory and via private vehicle. Household Manager driving. --13:38 05/06/21 Dior Arvizu RN 13:36 05/06/21. BP: 126/71. MAP: 89. HR: 76. RR: 14. O2 saturation: 98%. Temp: 98.5 F. Pain level now: 0/10. --13:38 05/06/21 Dior Arvizu RN.Locked/Released at 05/06/2021 13:39 by Dior Arvizu RN Name Value Range Interpretation Code Description Data Marifer rce(s) Supporting Document(s) ID Date Data Source [id number] 05/06/2021 11:04:00 AM EDT [facility] 1 Clinical Report - Physicians/Mid Levels [facility] Emergency Department [address] [place] [address] Phone #: ext- [phone] 05/06/2021 11:02 Patient: MARVIN LEAHY Sex: M [...] Calculi.Sleep Apnea. (New diagnosis, Seen Thursday in [place] for CPAP treatment)Nephrolithiasis.Renal Colic. Additional Surgeries: Ureteral Stent. Uroscopy. Medications: Pregnyl Intramuscular (Solution Reconstituted 37299 unit), 3x a week. traZODone HCl Oral (Tablet 50 mg), daily. 2 Clinical Report - Physicians/Mid Levels [facility] Emergency Department [address] [place] [address] Phone #: ext- [phone] 05/06/2021 11:02 Patient: [...] 7.0) 3 Clinical Report - Physicians/Mid Levels [facility] Emergency Department [address] [place] [address] Phone #: ext- [phone] 05/06/2021 11:02 Patient: [...] Male GFR Interprentation 20-49 yrs >60 mL/min Lqxyej53-80 yrs >56 mL/min Normal 60- 69 yrs >49 mL/min Normal 70-79yrs>42 mL/min Normal 80 and above >35 mL/min Normal Female GFRInterpretation 20-39 yrs >60 mL/min Normal 40-49 yrs >58 mL/minNormal 50-59 yrs >51 mL/min Normal 60-69 yrs >45 mL/min Tsgxfr88-53 yrs >39 mL/min Normal 80 and above >32 mL/min NormalCPK: (DERRICK: 05/06/2021 11:55) ( [facility] 05/06/2021 12:59) Final results Test Result Flag Units (Reference) CPK 241 H U/L (30 - 170)Lactic Acid: (DERRICK: 05/06/2021 11:55) ( [facility] 05/06/2021 12:22) Final results Te st Result Flag Units (Reference) LACTIC ACID 1.6 MMOL/L (0.2 - 2.2)Lipase: (DERRICK: 05/06/2021 11:55) ( [facility] 05/06/2021 12:58) Final results Test Result Flag Units (Reference) LIPASE 26 U/L (13 - 60) 4 Clinical Report - Physicians/Mid Levels [facility] Emergency Department [address] [place] [address] Phone #: ext- [phone] 05/06/2021 11:02 Patient: [...] rce(s) Supporting Document(s) ID Date Data Source [id number] 05/06/2021 12:59:00 PM EDT [facility] Name Value Range Interpretation Code Description Data Marifer rce(s) Supporting Document(s) Creatine kinase [Enzymatic activity/volume] in Serum or Plasma 2 41 U/L 30 - 170 H [facility] ID Date Data Source [id number] 05/06/2021 12:59:00 PM EDT [facility] Name Value Range Interpretation Code Description Data Marifer rce(s) Supporting Document(s) COMPREHENSIVE METABOLIC PANEL [facility] COMPREHENSIVE METABOLIC PANEL Sodium [Moles/volume] in Serum or Plasma 139 mEq/L 134 - 153 [facility] Potassium [Moles/volume] in Serum or Plasma 3.5 mEq/L 3.6 - 5.0 L [facility] Chloride [Moles/volume] in Serum or Plasma 105 mEq/L 98 - 107 [facility] Carbon dioxide, total [Moles/volume] in Serum or Plasma 24 MEQ/L 22 - 30 [facility] Glucose [Mass/volume] in Serum or Plasma 95 MG/DL 70 - 99 [facility] BUN 11 [facility]DL 7 - [facility] Creat[facility] [Mass/volume] in Serum or Plasma 0.8 MG/DL 0.7 - 1.5 [facility] BUN/CREAT 14 8 - 27 [facility] Protein [Mass/volume] in Serum or Plasma 7.1 G/DL 6.3 - 8.2 [facility] Albumin [Mass/volume] in Serum or Plasma 4.3 G/DL 3.9 - 5.0 [facility] Globulin [Mass/volume] in Serum by calculation 2.8 GM/DL 2.4 - 3.2 [facility] A/G RATIO 1.5 0.8 - 2.0 [facility] Calcium [Mass/volume] in Serum or Plasma 9.6 MG/DL 8.4 - 10.2 [facility] Bilirubin.total [Mass/volume] in Serum or Plasma <0.7 MG/DL 0.2 - 1.3 [facility] Alkaline phosphatase [Enzymatic activity/volume] in Serum or Plasma 64 U/L 38 - 126 [facility] Aspartate aminotransferase [Enzymatic activity/volume] in Serum or Plasma 21 U/L 5 - 40 [facility] Alanine aminotransferase [Enzymatic activity/volume] in Seru m or Plasma 20 U/L 7 - 56 [facility] Anion gap 3 in Serum or Plasma 10.0 mmol/L 8.0 - 16.0 [facility] AGE 31 yrs [facility] al NON-AA GFR >60 mL/min [facility] AFR AMER GFR >60 mL/min [facility] sp[facility] Male GFR In [...] >32 mL/min Normal ID Date Data Source [id number] 05/06/2021 12:58:00 PM EDT [facility] Name Value Range Interpretation Code Description Data Marifer rce(s) Supporting Document(s) Lipase [Enzymatic activity/volume] in Serum or Plasma 26 U/L 13 - 60 [facility] ID Date Data Source [id number] 05/06/2021 12:22:00 PM EDT [facility] Name Value Range Interpretation Code Description Data Marifer rce(s) Supporting Document(s) Lactate [Moles/volume] in Serum or Plasma 1.6 MMOL/L 0.2 - 2.2 [facility] ID Date Data Source [id number] 05/06/2021 12:06:00 PM EDT [facility] Name Value Range Interpretation Code Description Data Marifer rce(s) Supporting Document(s) CBC W/AUTOMATED DIFF [facility] COMPLETE BLOOD COUNT Leukocytes [#/volume] in Blood by Automated count 4.8 10^3/uL 4.2 - 1 1.0 [facility] Erythrocytes [#/volume] in Blood by Automated count 4.28 10^6/uL 4. 50 - 6.30 L [facility] Hemoglobin [Mass/volume] in Blood 12.6 g/dL 14.0 - 16.0 L [facility] Hematocrit [Volume Fraction] of Blood by Automated count 38.2 % 4 1.0 - 51.0 L [facility] Erythrocyte mean corpuscular volume [Entitic volume] by Auto mated count 89.3 fL 80.0 - 94.0 [facility] Erythrocyte mean corpuscular hemoglobin [Entitic mass] by Automated count 29.4 pg 27.0 - 34.0 [facility] Erythrocyte mean corpuscular hemoglobin concentration [Mass/volume] by Automated count 33.0 g/dL 31.0 - 36.0 [facility] Erythrocyte distribution width [Ratio] by Automated count 12.7 % 11.5 - 14.8 [facility] Platelets [#/volume] in Blood by Automated count 177 10^3/uL 150 - 45 0 [facility] Platelet mean volume [Entitic volume] in Blood by Automated count 10.4 fL 7.4 - 10.4 [facility] Neutrophils/100 leukocytes in Blood by Automated count 54.9 % 37. 0 - 80.0 [facility] Lymphocytes/100 leukocytes in Blood by Manual count 31.9 % 25.0 - 40.0 [facility] Monocytes/100 leukocytes in Blood by Automated count 10.9 % 3.0 - 8.0 H [facility] Eosinophils/100 leukocytes in Blood by Automated count 1.9 % 0.0 - 7.0 [facility] Basophils/100 leukocytes in Blood by Automated count 0.2 % 0.0 - 2.0 [facility] %IG 0.2 % 0.0 - 0.[address] [facility] al %NRBC 0.0 % 0.0 - 0.0 [facility] al Neutrophils [#/volume] in Blood by Automated count 2.62 10^3/uL 2.00 - 6.90 [facility] Lymphocytes [#/volume] in Blood by Automated count 1.52 10^3/uL 0.60 - 3.40 [facility] Monocytes [#/volume] in Blood by Automated count 0.52 10^3/uL 0.00 - 0.90 [facility] Eosinophils [#/volume] in Blood by Automated count 0.09 10^3/uL 0.00 - 0.70 [facility] Basophils [#/volume] in Blood by Automated count 0.01 10^3/uL 0.00 - 0.20 [facility] #IG 0.01 10^3/uL 0.00 - 0.10 [facility] #NRBC 0.00 10^3/uL 0.00 - 0.00 [facility] MANUAL DIFF NOT INDICATED [facility] RBC MORPH NOT INDICATED [facility] spital ID Date Data Source [id number] 05/05/2021 03:26:00 AM EDT [facility] 1 OrderSheet [facility] Emergency Department [address] [place] [address] Phone #: ext- [phone] 05/05/2021 03:16 Patient: [...] Reason for Study: Abdominal Pain 2 OrderSheet [facility] Emergency Department [address] [place] [address] Phone #: ext- [phone] 05/05/2021 03:16 Patient: [...] rce(s) Supporting Document(s) ID Date Data Source [id number] 05/05/2021 03:26:00 AM EDT [facility] 1 Medication Reconciliation Report [facility] Emergency Department [address] [place] [address] Phone #: ext- [phone] 05/05/2021 03:16 Patient: MARVIN LEAHY Sex: M : 1990 Age: 31yWeight: 90.7 kgHeight/Length: 68 in.BMI: 30.4ALLERGIES: None, SeafoodThe patient's Home Medications are listed below:CONTINUE TAKING THE FOLLOWING MEDICATIONS: allergy medicine daily Eliquis Oral (2.5 mg), 2x a day Escitalopram Oxalate Oral (10 mg), 2x a day Ivermectin Oral (3 mg) 3 tabs, every 6 months Pregnyl Intramuscular (63640 unit), 3x a week traZODone HCl Oral [...] administered: 05:15 05/05/2021 2 Medication Reconciliation Report [facility] Emergency Department [address] [place] [address] Phone #: ext- [phone] 05/05/2021 03:16 Patient: MARVIN LEAHY Sex: M : 1990 Age: 31yThe following Medications were prescribed to the patient:ond ansetron 4 mg disintegrating tablet Take 1 tablet three times a day for 3 days -- prn nausea/vomiting.Dispense 9 tablet. Refills: 0. Substitution permitted. Note to Pharmacy - Rx DISCOUNT CARD: $ 13.59.USE: BIN:[id number], PCN:ANAIS, Group:[id number], ID:[id number].Pharmacy - [facility] [id number] ; [place] [address]. . -- Lluvia Lantigua MD Name Value Range Interpretation Code Description Data Marifer rce(s) Supporting Document(s) ID Date Data Source [id number] 05/05/2021 03:26:00 AM EDT [facility] 1 Medication Administration Record [facility] Emergency Department [address] [place] [address] Phone #: ext- [phone] 05/05/2021 03:16 Patient: MARVIN LEAHY Sex: M : 1990 Age: 31yWeight: 90.7 kgHeight/Length: 68 inBMI: 30.4ALLERGIES: None, Seafood Date/Time Medication Administered Medication OrderedStart NS [IV] IV NS 1000 mL Bolus : Bolus 423419:49 05/05/2021 Dose: IV Fluids mL (X1)Bethany Holder R.N. Rate: 1000 mL/hr---- Dispensed: 1000 mL bagStop Site: #1 right cmvqihc72:14 05/05/2021Bethany Holder R.N.Start NS [IV] IV NS 1000 mL Bolus : Bolus 188023:15 05/05/2021 Dose: IV Fluids mL (X1)Bethany Holder R.N. Rate: 1000 mL/hr---- Dispensed: 1000 mL bagStop Site: #1 right lewtgws10:15 05/05/2021Bethany Holder R.N.Given ZOFRAN [IVP] (ONDANSETRON HCL) [...] rce(s) Supporting Document(s) ID Date Data Source [id number] 05/05/2021 03:26:00 AM EDT [facility] 1 General Instructions [facility] Emergency Department [address] [place] [address] Phone #: ext- [phone] 05/05/2021 03:16 Patient: MARVIN LAEHY Sex: M : 1990 Age: 31yVomiting with [...] every 6 months.Pregnyl Intramuscular : Solution Reconstituted 53150 unit, 3x a week.traZODone HCl Oral : Tablet 50 mg, daily.Xolair Subcutaneous : Solution Reconstituted 150 mg, 300mg 3x a week.Prescription Medications:ondansetron 4 mg disintegrating tablet Take 1 tablet three times a day for 3 days -- prn nausea/vomiting.Dispense 9 tablet. Refills: 0. Substitution permitted. Note to Pharmacy - Rx DISCOUNT CARD: $ 13.59.USE: BIN:[id number], PCN:ANAIS, Group:[id number], ID:[id number].Pharmacy - [facility] [phone] ; [place] [address]. .Follow-up:Follow up with your doctor Thursday even if well. Call for an appointment. Reason for referral: evaluation.Summary of care provided to patient via paper. 2 General Instructions [facility] Emergency Department [address] [place] [address] Phone #: ext- [phone] 05/05/2021 03:16 Patient: MARVIN LEAHY Sex: M [...] and water are not available, use alcohol-based heel molder to keep from spreading the infection to [...] follow the diet below: 3 General Instructions [facility] Emergency Department [address] [place] [address] Phone #: ext- [phone] 05/05/2021 03:16 Patient: [...] higher, or as directed 4 General Instructions [facility] Emergency Department [address] [place] [address] Phone #: hpd- [phone] 05/05/2021 03:16 Patient: MARVIN LEAHY Sex: M : 1990 Age: 31y Yellow color of the eyes or skin 5547-[address] [employer] [place], [place] [id number]. All rights reserved. This information is not intended as asubstitute for professional medical care. Always follow your healthcare professional's instructions.Diarrhea with Uncertain Cause (Adult)Diarrhea is when stools are loose and watery. This can be caused by: Viral infections Bacterial infections Food poisoning Parasites Irritable bowel syndrome (IBS) Inflammatory bowel diseases such as ulcerative colitis, Crohn's disease, and celiac disease 5 General Instructions [facility] Emergency Department [address] [place] [address] Phone #: ext- [phone] 05/05/2021 03:16 Patient: [...] make diarrhea, cramping, and painworse.If taking medicines: Jgjc-wsn-gyvdiai nausea and diarrhea medicines are generally OK [...] as a full course. [address] [facility] Department [address] [place] [address] Phone #: ext- [phone] 05/05/2021 03:16 Patient: MARVIN LEAHY Sex: M : 1990 Age: 31yTo prevent the spread of illness: Remember that washing with soap and water and using alcohol-based heel molder is the best way to prevent the [...] Keep uncooked meats away from cooked and splna-vd-hdf foods. Use a food thermometer when cooking. [...] Soft drinks without caffeine 7 General Instructions [facility] Emergency Department [address] [place] [address] Phone #: ext- [phone] 05/05/2021 03:16 Patient: [...] healthcare provider for the results as instructed.Call [phone] if you have any of these symptoms: Trouble breathing Confusion 8 General Instructions [facility] Emergency Department [address] [place] [address] Phone #: ext- [phone] 05/05/2021 03:16 Patient: [...] as directed by your healthcare provider [employer]. [address] [place] [address]. All rights reserved. This information is not [...] you may need medicine. 9 General Instructions [facility] Emergency Department [address] [place] [address] Phone #: ext- [phone] 05/05/2021 03:16 Patient: [...] confusion Blood in vomit or stool [employer] [address] [place] [address], [place] [address]. All rights reserved. This information is not intended as asubstitute for professional medical care. Always follow your healthcare professional's instructions. 10 General Instructions [facility] Emergency Department [address] [place] [address] Phone #: sfm- [phone] 05/05/2021 03:16 ------- Patient: MARVIN LEAHY Sex: [...] very fast heart rate Loss of consciousness [phone] [employer] [place] [address]. All rights reserved. This information is not intended as a 11 General Instructions [facility] Emergency Department [address] [place] [address] Phone #: ext- [phone] 05/05/2021 03:16 --------- [...] 100.4F (38C) or higher 12 General Instructions [facility] Emergency Department [address] [place] [address] Phone #: ext- [phone] 05/05/2021 03:16 Patient: MARVIN LEAHY Sex: M : 1990 Age: 31yCall 911Call 911 or get medical care right away if you have any of the following: Weakness, dizziness, or fainting Unusual drowsiness or confusion Blood in vomit or stool [employer]. [address] [place] [address]. All rights reserved. This information is not [...] of the following occur: 13 General Instructions [facility] Emergency Department [address] [place] [address] Phone #: ext- [phone] 05/05/2021 03:16 Patient: MARVIN LEAHY Sex: M : 1990 Age: 31y Increased weakness, fatigue, or muscle cramps DizzinessCall 911Call 911 if any of the following occur: Irregular heartbeat, extra beats, or very fast heart rate Loss of consciousness 5217-[address] [employer] [place] [address], [place] [address]. All rights reserved. This information is not intended as asubstitute for professional medical care. Always follow your healthcare professional's i nstructions. You have been given the following additional information: Vomiting (Adult) Diarrhea, Unknown Cause Dehydration (Adult) Hypokalemia Dehydration (Adult) Hypokalemia Rest.(Electronically signed by Lluvia Lantigua MD 05/05/2021 06:35) Name Value Range Interpretation Code Description Data Marifer rce(s) Supporting Document(s) ID Date Data Source [id number] 05/05/2021 03:26:00 AM EDT [facility] 1 Clinical Report - Nurses [facility] Emergency Department [address] [place] [address] Phone #: ext- [phone] 05/05/2021 03:16 Patient: [...] every 6 months. Pregnyl Intramuscular (Solution Reconstituted 25338 unit), 3x a week. traZODone HCl Oral (Tablet 50 mg), daily. Xolair Subcutaneous (Solution Reconstituted 150 mg) 300mg, 3x a week. --03:34 05/05/21 Bethany Lopez R.N. allergy medicine daily. --03:34 05/05/21 Bethany Holder R.N.AllergiesNone.Seafood. --03:34 05/05/21 Bethany Holder R.N.PROBLEMS:G6Pd Deficiency.Skin Problems.Ureterolithiasis.DVT - Deep Venous Thrombosis. --03:35 05/05/21 Bethany Holder R.N. 2 Clinical Report - Nurses [facility] Emergency Department [address] [place] [address] Phone #: ext- [phone] 05/05/2021 03:16 Patient: MARVIN LEAHY Sex: M : 1990 Age: 31y Insomnia. Testosterone deficiency. --03:36 05/05/21 Bethany Holder R.N. Sleep Apnea: (New diagnosis, Seen Thursday in [place] for CPAP treatment). --03:38 05/05/21 Bethany Holder [...] mL saline (2 previous attempts by previous [facility] staff). --03:49 05/05/21 Bethany Holder R.N. 03:49 05/05/2021 Started bag #1 1000 mL IV Fluids NS; at 1000 mL/hr via site #1 via IV pump. Allergies 3 Clinical Report - Nurses [facility] Emergency Department [address] [place] [address] Phone #: ext- [phone] 05/05/2021 03:16 Patient: MARVIN LEAHY Sex: M [...] Patient verbalized understanding. Written instructions provided in Finnish. The patient was discharged by the physician. He was discharged home. He left ambulatory and via private vehicle. --06:05/05/21 Bethany Holder R.N. 06:20 05/05/21. BP: 131/66. MAP: 87. HR: 81. RR: 18. O2 saturation: 97%. Temp: 96.4 F. Pain level now: 01/16. --06:05/05/21 Bethany Holder R.N. 4 Clinical Report - Nurses [facility] Emergency Department [address] [place] [address] Phone #: ext- [phone] 05/05/2021 03:16 Patient: MARVIN LEAHY Sex: M : 1990 Age: 31yLocked/Released at 05/05/2021 06:27 by Bethany Holder R.N. Name Value Range Interpretation Code Description Data Marifer rce(s) Supporting Document(s) ID Date Data Source [id number] 05/05/2021 03:26:00 AM EDT [facility] 1 Clinical Report - Physicians/Mid Levels [facility] Emergency Department [address] [place] [address] Phone #: ext- [phone] 05/05/2021 03:16 Patient: MARVIN LEAHY Sex: M [...] 2x a day. 2 Clinical Report - Physicians/[facility] Emergency Department [address] [place] [address] Phone #: ext- [phone] 05/05/2021 03:16 Patient: MARVIN LEAHY Sex: M : 1990 Age: 31y Ivermectin Oral (Tablet 3 mg) 3 tabs, every 6 months. Pregnyl Intramuscular (Solution Reconstituted 24301 unit), 3x a week. traZODone HCl Oral [...] CT ABD //T// PELVIS W/ [place] [address] ---------NAME--------- NUMBER SEX AGE ADMIT DISC. XRAY# F/C TYPE TOSIN Rivera [id number] M 31 05/05/21 [id number] E/R DATE OF : 1990 M/R# [id number] #: [id number] TR-07 LOCATION: TRANSCRIBED: 05/05/21 5:[address] ABD //T// PELVIS W/ IV ONLY [id number] COMPLETED:05/05/21 5:05 [facility] [id number] Reason(s): Abdominal Pain PHYSICIAN: RAISA 3 Clinical Report - Physicians/Mid Levels [facility] Emergency Department [address] [place] [address] Phone #: ext- [phone] 05/05/2021 03:16 Patient: MARVIN LEAHY Sex: M : 1990 Age: 31y == R A D I O L O G Y R E P O R T PATIENT HISTORY:CT ABD Pelvis W IV ONLY Dx: abd pain cramping nausea. actual dose 701mGy*cmPatient received 75 ml isovue 370 lot# [id number] exp 03/2023. CorrecT patientcorrect side.Patient male. Patient shielded. 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 actualdose 701mGy*cm Patient received 75 ml isovue 370 lot# [id number] exp 03/2023.CorrecT patient correct side. Patient male. Patient shielded. Verification of 2patient identifiers performed. smwTECHNIQUE: Axial computed tomography images of the abdomen and pelvis withintravenous contrast. / All CT scans at this facility use dose modulation,iterative reconstruction, and/or weight-based dosing when appropriate to reduceradiation dose to as low as reasonably achievable.CONTRAST: with intravenous contrast. With; 75 ml isovue 370 lot# [id number] OMPARISON: None provided.FINDINGS:LUNG BASES: The lung bases [...] pathologyevident. 4 Clinical Report - Physicians/Mid Levels [facility] Emergency Department [address] [place] [address] Phone #: ext- [phone] 05/05/2021 03:16 Patient: MARVIN LEAHY Sex: M [...] 27) 5 Clinical Report - Physicians/Mid Levels [facility] Emergency Department [address] [place] [address] Phone #: ext- [phone] 05/05/2021 03:16 Patient: [...] Normal Lactic Acid: (DERRICK: 05/05/2021 04:19) ( [facility] 05/05/2021 04:56) Final results Test Result Flag Units (Reference) LACTIC ACID 1.7 MMOL/L (0.2 - 2.2) Lipase: (DERRICK: 05/05/2021 04:19) ( [facility] 05/05/2021 04:57) Final results Test Result Flag Units (Reference) LIPASE 25 U/L (13 - 60) Magnesium: (DERRICK: 05/05/2021 04:19) ( [facility] 05/05/2021 04:57) Final results Test Result Flag Units (Reference) MAGNESIUM 1.9 MG/DL (1.7 - 2.2).PROGRESS AND PROCEDURESPatient/family counseled. Disposition: Discharged. Condition: good and stable.CLINICAL IMPRESSION Vomiting with nausea. Diarrhea Mild dehydration Acute gastroenteritis. Hypokalemia 6 Clinical Report - Physicians/Mid Levels [facility] Emergency Department [address] [place] [address] Phone #: ext- [phone] 05/05/2021 03:16 Patient: [...] 6 months. Pregnyl Intramuscular : Solution Reconstituted 80166 unit, 3x a week. traZODone HCl Oral : Tablet 50 mg, daily. Xolair Subcutaneous : Solution Reconstituted 150 mg, 300mg 3x a week. Presc ription Medications: ondansetron 4 mg disintegrating tablet Take 1 tablet three times a day for 3 days -- prn nausea/vomiting. Dispense 9 tablet. Refills: 0. Substitution permitted. Note to Pharmacy - Rx DISCOUNT CARD: $ 13.59. USE: BIN:[id number], PCN:[id number], Group:[facility], ID:[id number]. Pharmacy - [facility] [address] ; [place] [address]. . Follow-up: Follow up with your doctor Thursday even if well. Call for an appointment. Reason for referral: evaluation. Summary of care provided to patient via paper. Understanding of the discharge instructions verbalized by patient.(Electronically signed by Lluvia Lantigua MD 05/05/2021 06:35) Name Value Range Interpretation Code Description Data Marifer rce(s) Supporting Document(s) ID Date Data Source [id number] 05/05/2021 05:45:00 AM EDT [facility] [address] [place] [address] ---------NAME--------- NUMBER SEX AGE ADMIT DISC. XRAY# F/C TYPE TOSIN Rivera [id number] M 31 05/05/21 [id number] E/R DATE OF : 1990 M/R# [id number] #: [id number] TR-07 LOCATION: TRANSCRIBED: 05/05/21 5:[address] ABD //T// PELVIS W/ IV ONLY [id number] COMPLETED:05/05/21 5:05 [facility] [id number] Reason(s): Abdominal Pain PHYSICIAN: RAISA R A D I O L O G Y R E P O R T PATIENT HISTORY:CT ABD Pelvis W IV ONLY Dx: abd pain cramping nausea. actual dose 701mGy*cmPatient received 75 ml isovue 370 lot# [id number] exp 03/2023. CorrecT patientcorrect side.Patient male. Patient shielded. 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 actualdose 701mGy*cm Patient received 75 ml isovue 370 lot# [id number] exp 03/2023.CorrecT patient correct side. Patient male. Patient shielded. Verification of 2patient identifiers performed. smwTECHNIQUE: Axial computed tomography images of the abdomen and pelvis withintravenous contrast. / All CT scans at this facility use dose modulation,iterative reconstruction, and/or weight-based dosing when appropriate to reduceradiation dose to as low as reasonably achievable.CONTRAST: with intravenous contrast. With; 75 ml isovue 370 lot# [id number] OMPARISON: None provided.FINDINGS:LUNG BASES: The lung bases [...] rce(s) Supporting Document(s) ID Date Data Source [id number] 05/05/2021 05:00:00 AM EDT [facility] Name Value Range Interpretation Code Description Data Marifer rce(s) Supporting Document(s) COMPREHENSIVE METABOLIC PANEL [facility] COMPREHENSIVE METABOLIC PANEL Sodium [Moles/volume] in Serum or Plasma 143 mEq/L 134 - 153 [facility] Potassium [Moles/volume] in Serum or Plasma 3.3 mEq/L 3.6 - 5.0 L [facility] Chloride [Moles/volume] in Serum or Plasma 107 mEq/L 98 - 107 [facility] Carbon dioxide, total [Moles/volume] in Serum or Plasma 25 MEQ/L 22 - 30 [facility] Glucose [Mass/volume] in Serum or Plasma 96 MG/DL 70 - 99 [facility] BUN 11 MG/DL 7 - 21 [facility] Creatinine [Mass/volume] in Serum or Plasma 0.9 MG/DL 0.7 - 1.5 [facility] BUN/CREAT 12 8 - 27 [facility] Protein [Mass/volume] in Serum or Plasma 7.0 G/DL 6.3 - 8.2 [facility] Albumin [Mass/volume] in Serum or Plasma 4.4 G/DL 3.9 - 5.0 [facility] Globulin [Mass/volume] in Serum by calculation 2.6 GM/DL 2.4 - 3.2 [facility] A/G RATIO 1.7 0.8 - 2.0 [facility] Calcium [Mass/volume] in Serum or Plasma 9.3 MG/DL 8.4 - 10.2 [facility] Bilirubin.total [Mass/volume] in Serum or Plasma 0.7 MG/DL 0.2 - 1.3 [facility] Alkaline phosphatase [Enzymatic activity/volume] in Serum or Plasma 77 U/L 38 - 126 [facility] Aspartate aminotransferase [Enzymatic activity/volume] in Serum or Plasma 23 U/L 5 - 40 [facility] Alanine aminotransferase [Enzymatic activity/volume] in Seru m or Plasma 25 U/L 7 - 56 [facility] Anion gap 3 in Serum or Plasma 11.0 mmol/L 8.0 - 16.0 [facility] AGE 31 yrs [facility] NON-AA GFR >60 mL/min [facility] ital AFR AMER GFR >60 mL/min [facility] Male GFR In [...] >32 mL/min Normal ID Date Data Source [id number] 05/05/2021 04:59:00 AM EDT [facility] Name Value Range Interpretation Code Description Data Marifer rce(s) Supporting Document(s) CBC W/AUTOMATED DIFF [facility] COMPLETE BLOOD COUNT Leukocytes [#/volume] in Blood by Automated count 5.8 10^3/uL 4.2 - 1 1.0 [facility] Erythrocytes [#/volume] in Blood by Automated count 4.39 10^6/uL 4. 50 - 6.30 L [facility] Hemoglobin [Mass/volume] in Blood 12.9 g/dL 14.0 - 16.0 L [facility] Hematocrit [Volume Fraction] of Blood by Automated count 39.5 % 4 1.0 - 51.0 L [facility] Erythrocyte mean corpuscular volume [Entitic volume] by Auto mated count 90.0 fL 80.0 - 94.0 [facility] Erythrocyte mean corpuscular hemoglobin [Entitic mass] by Automated count 29.4 pg 27.0 - 34.0 [facility] Erythrocyte mean corpuscular hemoglobin concentration [Mass/volume] by Automated count 32.7 g/dL 31.0 - 36.0 [facility] Erythrocyte distribution width [Ratio] by Automated count 12.6 % 11.5 - 14.8 [facility] Platelets [#/volume] in Blood by Automated count 182 10^3/uL 150 - 45 0 [facility] Platelet mean volume [Entitic volume] in Blood by Automated count 10.3 fL 7.4 - 10.4 [facility] Neutrophils/100 leukocytes in Blood by Automated count 59.9 % 37. 0 - 80.0 [facility] Lymphocytes/100 leukocytes in Blood by Manual count 29.4 % 25.0 - 40.0 [facility] Monocytes/100 leukocytes in Blood by Automated count 9.0 % 3.0 - 8.0 H [facility] Eosinophils/100 leukocytes in Blood by Automated count 1.2 % 0.0 - 7.0 [facility] Basophils/100 leukocytes in Blood by Automated count 0.2 % 0.0 - 2.0 [facility] %IG 0.3 % 0.0 - 0.0 [facility] %NRBC 0.0 % 0.0 - 0.0 [facility] al Neutrophils [#/volume] in Blood by Automated count 3.46 10^3/uL 2.00 - 6.90 [facility] Lymphocytes [#/volume] in Blood by Automated count 1.70 10^3/uL 0.60 - 3.40 [facility] Monocytes [#/volume] in Blood by Automated count 0.52 10^3/uL 0.00 - 0.90 [facility] Eosinophils [#/volume] in Blood by Automated count 0.07 10^3/uL 0.00 - 0.70 [facility] Basophils [#/volume] in Blood by Automated count 0.01 10^3/uL 0.00 - 0.20 [facility] #IG 0.02 10^3/uL 0.00 - 0.10 [facility] #NRBC 0.00 10^3/uL 0.00 - 0.00 [facility] MANUAL DIFF NOT INDICATED [facility] RBC MORPH NOT INDICATED [facility] ID Date Data Source [id number] 05/05/2021 04:57:00 AM EDT [facility] Name Value Range Interpretation Code Description Data Marifer rce(s) Supporting Document(s) Magnesium [Mass/volume] in Serum or Plasma 1.9 MG/DL 1.7 - 2.2 [facility] ID Date Data Source [id number] 05/05/2021 04:57:00 AM EDT [facility] Name Value Range Interpretation Code Description Data Marifer rce(s) Supporting Document(s) Lipase [Enzymatic activity/volume] in Serum or Plasma 25 U/L 13 - 60 [facility] ID Date Data Source [id number] 05/05/2021 04:56:00 AM EDT [facility] Name Value Range Interpretation Code Description Data Marifer rce(s) Supporting Document(s) Lactate [Moles/volume] in Serum or Plasma 1.7 MMOL/L 0.2 - 2.2 [facility] ID Date Data Source [id number] 04/19/2021 12:34:04 PM EDT [facility] Name Value Range Interpretation Code Description Data Marifer rce(s) Supporting Document(s) Progress Note [facility] LZWCIw6yBmJCNbNw45/XAAmzAZFkl5TwWLcvXFf7GJltLXYpR7CwXFV9lN6kMGS1FMpYCaPdUjMiQiBo lbm [file] Juan F+6aW4TXsNEmbdjtPXqUC+qBV+O+4rRJDRV86jWFYYgjr+Ym0IcL064BK+8/TN8NBATrp8AZ3BVZy [file] izDQTKIoLxOsyeJPzrSZUMTp0W ID Date Data Source [id number] 04/02/2021 09:10:27 PM EDT [facility] Name Value Range Interpretation Code Description Data Marifer rce(s) Supporting Document(s) Discharge Summary [facility] FHEURs0kWqPVYpCo00/QJEocHFKxp0CxOUmoKVc1RJvvUDDoJ6WzDOP1oX2wSOQ8LLgXBeXlSfEfKVU5 lbm [file] 0mm9IgnTuX8HANryBG5g1Pss+aHAqQKHMsIMDCWQ7uiZEuLf+McB8tu38ULtU/+9wiyv9wSKS5u/vp customer development+a [file] AgICAgICAgICAgICAgICAgICAgICAgICAgICAgICAg CXAfBSBtWEPiBZTsYBQcLKZkVVKwUSUdQVBrNSSpZBWfEOEwXLVoZGMyWOQdGTOxOGWwPSIxKTKxCS5B ICAgICAgICAgICAgICAgICAgICAgICAgICAgICAgICAgICAgICAgICAgICAgICAgICAgICAgICAgICAg ICAgICAgICAgICAgICAgICAgICAgICAgICAgICAgIC LxOJGzXIUjLV3ITFXfXOFqFDZmYKZxTVOxDFRdWLOyVCVeMACnWYCaCVLjOLFmNZQvGNLnOSJiHMJtIG RsKWFqVMBgFWObSGNwYTRwIDXgHQWcKFZyYZBuCOEkIAKgJOAlBBMnISGaHTSiKPDfLH5GOWYzEWPsJX AgICAgICAgICAgICAgICAgICAgICAgICAgICAgICAg ICAgICAgICAgICAgICAgICAgICAgICAgICAgICAgICAgICAgICAgICAgICAgICAgICAgICAgICAgICAg WI3WSQVhNRXlOJJhYNKkYCCdGMWzRHShMPKxEZFlXFMfRGXeCZHmNMJkLHPeZZAkXLQvGUCjEJZcFMYl ICAgICAgICAgICAgICAgICAgICAgICAgICAgICAgIC RgIHGwLOWrNHKaZN6QFQFfSZWvKIBnEFRuIJOsPXKnXSUxRYZqWKYgIVGjNZNeBCGwFEMwRKWjBJTbBF YtBOVfVQWwIZWcQLChVNPuTNHeXJQnBQFaUFIxDXKnMYRuTKOlWNMqONMiVDLbXNTcUSNbOO9PUKVgUL AgICAgICAgICAgICAgICAgICAgICAgICAgICAgICAg ICAgICAgICAgICAgICAgICAgICAgICAgICAgICAgICAgICAgICAgICAgICAgICAgICAgICAgICAgICAg LBBgJJ3FGQZwLNBePFRzUNUaYVVqHMIdHWZnNLXbKCPkHHXuSAFdZASjPWKbWOKrBKJgBQZfKQKxBCBy ICAgICAgICAgICAgICAgICAgICAgICAgICAgICAgIC OlSRWsEGWfXVDyXQUvJV7RUFYfSLGdCYYwJYLoPYGsQXUoEAYaVXNxAVAwLLJdANYqURHiYPPdSZNkBV RcCNRpKBPsZLSbKHWbZIMpEGBtYKEjKMJwYNFtVUZwRDDnLTOmKPBbIWXgJCRaBUBlQTSkFCHcKU9LYR 76eSLyl9X9EYYnUZ8crpn/Xa7NMWfohuUulAKdAH7E WrKjYW4ewe6RHeTkGX2ydz3BODpQPoMaH3W0vLFnTOMiMFZDMiWdW47uGWxsYm90OAfxBRFyNbIvXIm9 Di0EXdPiG6iqDVEkOeO3CZEpSzC1CPJaWfJ9DIMrTjOaHQYoFZIkKHRkGBDEJMX9XTYpAsRbNwNzMOYc SRerQVPTDMUxUOMaNfQtPpOwZLZjWaTtIVVMMJO1RF OuEmVxLGSrXZUfMaPoDAKJDA4NEkPsN8TinQ30WKJ0ADj+Xy1MTS0nn0AoXIk2ClIiSZ7apn7ERWaUJw MqB1VienY5FXHzKULeJf9LVLSsPOQhgPY7YwZhUCOVPoHdV3QmfS27LPHUJa9+DQplbmRvYmoNCjYzID Oeq8CgHSb7EW7OUWZyLGp5hQOiBOzcG9wlhpogLNI5 aV2nvsfiBvowC6CviOgdd4KstMRNFLAmxAl6LSHTQsGPHIV7EWHyIeBmFvInQSFiKrt1CFNNDPhDDzKa T9Tts9NgFbD5KMCyJcOfULfzUCRhGiD2FP77yWelSC4NDJKrGRHmCQ16RYBsETOtZp3ANl8JElIwGK8a wa6YOyDmQGJtGkrFHwp6FXvuRO2UnDPdI3XylAUig0 xJCmOrG4ITHVBjQTFhDa6UYIDnXzYyOBPxGSxmBP5tKNGuARLMlIzkfwD6PB7BJL4ffzOtLY2DWwLhFg 2cHs1IHaNlO7RqF3ZmSKXvIZLXLIocCS8PKUlkLY2gIE7Bz0DUwGQxwC7nje5CJTZfMVAdYgtjov9RIk iwU3X9yTrlEGXbCgBqLVVFLIeuAA7BZRMyIEI3BDM3 TSVaGIBKXeIwX05gZJ5RE6Jzo98sHvB1RONlZrTwBQdbNN62rMhohdGjuALxyXvkSR8XQx0+DQplbmRv WgxLMcpgOUTANxCnEdWEZrWzLYMnVKAcKJMuLdR8CvHiNz4NFDPkWXZmRGVyHfVlRYRgTSIpXGhpJMZi YBm8RwVqMGZtVBXhXC2SAqChGJUlIZSgZDVgLBNnDH Kinz9UDRIcPJMkBMP9VgWkSMGtUFNtSLvkLKTbCYF6ThO9WRYbUFBuTW4NTeYnSYHkWCS7IdlsEVRwVC Tkei5YYEEhHUZdGYEnPTPpMZOvMNByCYqcCDPhLRA1YpHeWYHlSYAtGY1FAdFbDAPnEOOoNYVfEAXhSU Cfqw4GCXWoZAMgFKO3ExRrADMpWTJzIJxoEAYnQEF7 ADi2JQSyJMVgRO2KMwTtOHCuMSxjAKZzZBNrPVBnlg1CKTQbQEHiAoS7NtAhLJKeKFTyJNbcBEVwQJVl MaA9STKkPXTvAS2MVtHbKLYuVgEjUEHoFCEiKRQadw4KGVNkVWQoZOIdCMHzIJPuXCShSGupOTOdWWX0 WJS9ECXtBFZhVE7AJfGuDKUcPgo0PPMaEDUwGPGlrx 4UNPRoIUUaSYRrAwXpLRDxVEScTVebBMBmZTHeOqK9JPUoRKDyYS5HFmNgLFTlBrIhMWNeYDVaDEWvjx 4YUZNfJANaYZS7EuWcCKPgMGYySKmuORJrXND6ZtT6WCStBAEtKH1RAxJnPHZfIca1PTWuLGZoTDHucd 2ZBAVjTMF9DuV1VZDcIJKgHYIsTIrlOTXaWHLvRPa6 AZPlSOHjVW6OPdEnYYYrYTFbRgGkIAVzOQWnna4QUBYuNWC1QwA8TsHwYTBlJFFoJSozKIEmJLK1QRZ7 JAHfDREeIM6PGkRkHCEpFPg1XRTlWSOgLGUmgi2MLVYdRCU9UpD1KVDsLHLfVYHpEPrkIBAsLMJeLjc1 LLQfVHJiHX2PRhSpYZGiYYB7LTHwSIMmRGPltw5CRL ErZFL2Krw0YoLhBWViTIUaMGrbPHQfPCD2FTN6IHZtQCNfUM9JBqRpTELhCSMvDPThHXUmUDPsis5APR LrNMA4FLD8BkUwUFZkPBJmONehOONgANX5SMa6TOMzZFYcZE2SPjKgJAAqPMR5ENBuEWToMNUvyc8QEO MqSRA9KvZ8BCFmSXDmAWZjWCfdKEPoHLZ4QWY8AVGm AFFnAY8YLsUyQJUdXDr3EHHvPVBtFHFibe0MPJVhZYR2Fqb0QCYsNHNaJWMrGFinINXbJHT1CZu4VHKi CBLcTQ2GFzLkNNFsKyv4FoHtTAWjOBSpfa1SCXVxRGE9KZz3EKWnQPSaTOEuMSprSEFmXEdtHPayDLXq DWWzOU5JPpBrZJNqWmRoSprvDFIwTFOtaa9OEHAjBI R7JWA0UBVbNGJjPITkUIzlGNRpHDy9SeWcEIBuMFCmRS3AVkOaRMToKsD8KAefXUJoLKOgga4LNAAxSI P7OOd6QRTdPJVdYPLrHWsdEWErWKq1SKDvDGNqLRYvTK2XWdSkBAJoSkJhAMgkFTNqEWYyzz9BFFFrFI P2YtA6RCMdJFEsSDFmFRzyFWYxDUx4PbpeVXWtMYIw AB1SVkZrOINiEdp1CgBvHCYdBEFack5LVUPbZIA4Tku9ChAnDOLnAYYnGOgdFOIbYMq7MCQ3LECsXBFg PX9RAkDuOARzQneiDKJsCWTcPCFruh5VXLMbZYQ2BDE7ZSOgDPZeZXOtSRgqVUYmRFgjZUz7KURwFMUz XW2CEvRaANEiNVUyShRfIJUwQRXjik0SQXIjFDX6BK AoGHFeZIHqIDJxZJg1unSanNAmPBh1GC6HA6JpsxVfYsQWTb4Sy465RRE8YEXuGy2TI1fqYj4bCLVwAH LGCu1OMQd1V4GaWHwgOgEeQ6SfQrYoBmTmBwPqTZyiUbSoTdfjOiG+PFiyPcY7QMP6ZFDoJKLmD7BjTA QdAMRaWAEgKvYiFEE8Vt0bKXMADv5+CBotiWAijFntDCNBZvrbGyLzEPdbTUSUKx8F ID Date Data Source [id number] 03/03/2021 02:31:00 [place] [address] OPERATIVE SUMMARYNAME: TOSIN Rivera DATE OF : 1990ATTENDING PHYS: BENITO WILLETT MD DATE: 03/01/21 MR#: [id number] PROCEDURE: 03/01/21PREOPERATIVE DIAGNOSIS: Left ureteropelvic junction [...] left ureteral stent removal.DETAILS OF PROCEDURE: [address] [place] [address] OPERATIVE SUMMARYNAME: TOSIN Rivera DATE OF : 1990ATTENDING PHYS: BENITO WILLETT MD DATE: 03/01/21 MR#: [id number] a detailed informed consent was obtained from [...] rce(s) Supporting Document(s) ID Date Data Source [id number] 04/01/2021 12:20:57 PM EDT [facility] Name Value Range Interpretation Code Description Data Marifer rce(s) Supporting Document(s) ED Provider Note [facility] NLTXTz5mIvBFHqFt86/ARMxoLKZgd6HnRBpzCTn3VOthPYGdL5HcHGE7vF7zSNW0VOxEZpNpRxUcNZY4 lbm [file] ceAG9EJOW+Jayla+Sm5OCWWeJDOcUUWxNsRsMIEKMpFvN7JzA5FLi0OkS7PsFO91qMhbskHiDNbzMO8PWN 4lZZHyPQAXGD5HfRBrjH5rvmA5IGTvFMCUZeGsW56vqXEjWLLyHTX3LHBsGb4BROQzB8GbqtYmcOplsb HiSLJwJJRTYK4CXTekqmWofVPmtRhdEF11pPmmAG0K Wc0RBdXqIO5eau5DwTYoRc4EWVI1IG1PTRCkPRHlNJQlHAR3MEElOtRnANiuCPKxSVJlJST0GBItHKSk OO7ELsJvOXGxRDZaTpIeJEKsXGLuam1ZEFYqROJ3AeQiNzQkGRQqHWAkTIyzQPShSQAiXWS2KDNjNNJj IT2OOtUjHRLtSOW8HvewIPEvOVBlnv4HDPOqRKLeRe A2EtZhANAiYQNpQDonVHEvXAO7Jlb0NEHuMQYdLV0ZEjLvGJTfDXJ3DYYeTMHeZDBjev5DAFBiLARjBF zpLlTnTOIqDSBsYJmxEEEaUKV7QYG1RDTyKWToUN5CRuLkEDFpCOE0RCaxWBHqAQCzbu1PMKNoGEDoZb T0LwTrEOFrZCTxFFouCKZlLYL9GmJsHGNfOLKsFF0U DbDdRABkIJD0PEstGPTwRIMyri7WWVEdSJHfZzS6ISImZMCrVTHbWJlhMTQyNCT5Qvy7LUJuIVMeRF0M FfYeDAMqOcXoLBDxYUVhLXQmbb8VNAIsXRMsDXSxXoBnWMXwKOOcKLdgMUBuQVV9LmE9CLVbYUJeRM5N QrIyZCGqQhH3GcAtUKJoZIHwid2HPXVxCMYgVjA1Te JuZXKqOTPpKKggWAUkIOH1GNQoXXUzWOXbHG3WIsDxWBAcRiN6IJWfZXKsWIEset9AUNEqACBmGPk0CV FrMFQyZBBxYTicXUOnKDPfEEIuPRYeETOoKM7ZNdZcYOYlOzN3UZsrSARtRQGzay9UMVVtQYAdMDZ6JB JtIIGqIVMcPBrwRTQqDME5VAc5HPFdQTBnTJ4EDwAl RKHdPlCdSGayVELdHDDtfj8XJCPmOXGoXaXrDwHiEQBySCFtYUsjNJIeXZX3WyP7JSLhQVAdTK7BNuXz SFAnVaA4MBysTINgNOQjpw3BDJZeHZDfAyP2SzQsNLEbNXZxOOkqBDSvCSN0MBK2QCMjIKYiUA0NNyPw BCGxLed2WCgyEIWhSJIcpn3OMKMbXME7XNIhQdGlRB KiQTWzTSrfFBOvOGU8QDHmONDwPLQnKC2BHyInSVFaBFk2KSjsOVNlKPWrka0NRPAbWHO0IKc6NNOaRC LgTOLoYMrhFRIsXOJrLIW2LCKcSLNyQS4ZIwMiZGYxTAO7IZwsJRIdIWWawd2AOYMpSPM4AXV5YaNeQP DwWWWxPAnkQOYgTQSxJtW7EVWjWSYrZU6XXrDxHNEi FKQ3RBjeHRErTXCeum5XJMEtJQV8IwU1KQIyEOTjEFNwIUsoCTHgGVJpTrC2IMJiKCGvOX0TPtKtZEOv VTH1DeHaZSOfKNCjis4VGAWcYFM3FwbaUhYvWBMzAHNvPKwnVCFqBNApNEPhVHFdDRXmMP2CGsLnYHWn KBArZHPqUMIsMGDlpo5MAUAjRNZ4LXM0HlYjMYOlKF ZrPNzfXZIpCLA6ZMX8VCHdZRDzIF0WNaEcHRSuZTF7LfUeACElGQNxai2LOMCbJFS4EZduKAYuQANxSF NsPUlxYIKjFVM8GYy2AJByEAAmHV6LPjTsXGXyYOUmLvejMNCoGYVpfu2EDFInXBD1ULI2SuWzZQUcBD ExCVlhBUDbLES5SQZnSZQyCAAxUY2WMaHuQZugWAFL Hqy7RMljA1l4UJY3QW6YF6Puf4XuWIfqNPNOJVijHX9mljWfGHXcPi5IA8wVKir4R4UtV4UnZuYkRgJ2 PILvUotoMZiwBZQfAvXcQzVnVb8wLPGqNDCxV4C7ZCQcTgf5ULKyWOLgGeF5WqH6FwQrSrSnYeChUX6V Cz4GQoU4SLD4dCZdLh5QDSM9LeEZZhVfPS8BEXi= ID Date Data Source [id number] 04/01/2021 02:08:27 AM EDT [facility] Name Value Range Interpretation Code Description Data Marifer rce(s) Supporting Document(s) ED Provider Note [facility] HJCKHp0pBxQHKeYy10/HUGmlCVAch2SgZUzeFGk4GRtfLFGmY4AuGPY9mD0qNWU8HYyPIdBlWlWrNIF3 lbm NpAlzOAnTcXGHyEzcQAxKeWKmzNctsdRYwSM7UgNC0HLErK89rUFArEPGxV2OsBIUqCsZ+Vc6DOJOgaY MoJD5TZydY4S6Al8cYJl0vLb5fogkMUIVRjUOxv0EtDH2jrMReY0JEPDCSEAFyHRuM/1V+XdAZ0Ak1ID MLFPbZ29Icd2T9S+89MwCEyP/6foq0kvFCRc085SVM lRhPxR//YFgKxOAazLpPVEA7JVkc/PgL4Nwjb01zrWsZrsTDft4Fj2SHfzPzODXoVt8HUs24mahN3Rz9 2RMnozi+y73UV1Y20hNaYIrAIcbSi/X2rRj+PptQsMzFzDPM2VLLZzbd9Cq6u1Pp+UVDj7ZokUkIAnRT ft1phsDqwWnRuQR/gjX4oLPMxaFvF1X+nH+fXCdsnM 2rnTGAjvim6Khjp3HKfIaL8ocBUndeF0EQCJvVdtuJEKd7MCTEI0qU/G9IWlMEMWSpDwltDwztxmYa0U 5XzHRPc9k0bhDZ+38i8zEnIKMT/TutfZ0oypzDRkKdYxusuB27NuUAybnBxqgTRp/wyida1byHXgn1RX VWKkyVitAmZsoz8EEQrAK5erQHbwKeThndl/WQTEYH Z9D0ApfbVdh5WuV6ZhnkP70utQPrNAYd9mv2TUcjlXahJfOZR8TMyYs4oTbhPkUQUI4HKN1Jp+4W5iuS 8pXrsj+xwJKa3R5X+hmxd+q6fx13TKHoNR7YXdi3rnYXUn76fIZVTcdfn6Y/rui4GfrmF9FzYUZFckwQ 0fmPv1vkRvp3Uz+Cmy7a40rpVc661TfYyypJ7vzikI fiJLqejCezqN/kUDf42KXDkRJpKaROxCUzM5YcNF6g9ZZ9etT+t2L7uRAyVLn5VK+Selwyn+iPM4HQWDn7j [file] TsM9MkNeR2YiQ3JtHsKR9WSy8GApV9CTI9mVDoEj5XVRg6IjFMGiHpMD5IRNz= ID Date Data Source [id number] 03/28/2021 06:02:09 AM EDT [facility] Name Value Range Interpretation Code Description Data Amrifer rce(s) Supporting Document(s) ED Provider Note [facility] EDVIAn2dAfWGYgNa87/FBWyeOMQzm1AkHIjyCJu6KCetITCmX1OeLNS6eV3zGWZ8RMpNBtQpVlFdODFw lbm [file] NzY+XG6eCDd+Dh9Yl3AxkmI6voUaYIy6CMJ2Cn0GVCUHO5PHRb== ID Date Data Source [id number] 03/27/2021 09:48:23 PM EDT [facility] Name Value Range Interpretation Code Description Data Marifer [facility](s) Supporting Document(s) History and Physical [facility] ZMRUJy5vIfQLCzXl06/FNXdxMQOly1MzJCjcGTk9QPwwHITsJ1BjQDN5yJ8eFTY1LOxDZbDxOiAoJJN1 lbm [file] AgICAgICAgICAgICAgICAgICAgICAgICAgICAgICAgICAgICAgICAgICAgICAgICAgICAgICAgICAgIC ANCiAgICAgICAgICAgICAgICAgICAgICAgICAgICAg ICAgICAgICAgICAgICAgICAgICAgICAgICAgICAgICAgICAgICAgICAgICAgICAgICAgICAgICAgICAg ICAgICAgICAgICANCiAgICAgICAgICAgICAgICAgICAgICAgICAgICAgICAgICAgICAgICAgICAgICAg ICAgICAgICAgICAgICAgICAgICAgICAgICAgICAgIC AgICAgICAgICAgICAgICAgICAgICANCiAgICAgICAgICAgICAgICAgICAgICAgICAgICAgICAgICAgIC AgICAgICAgICAgICAgICAgICAgICAgICAgICAgICAgICAgICAgICAgICAgICAgICAgICAgICAgICAgIC AgICANCiAgICAgICAgICAgICAgICAgICAgICAgICAg ICAgICAgICAgICAgICAgICAgICAgICAgICAgICAgICAgICAgICAgICAgICAgICAgICAgICAgICAgICAg ICAgICAgICAgICAgICANCiAgICAgICAgICAgICAgICAgICAgICAgICAgICAgICAgICAgICAgICAgICAg ICAgICAgICAgICAgICAgICAgICAgICAgICAgICAgIC AgICAgICAgICAgICAgICAgICAgICAgICANCiAgICAgICAgICAgICAgICAgICAgICAgICAgICAgICAgIC AgICAgICAgICAgICAgICAgICAgICAgICAgICAgICAgICAgICAgICAgICAgICAgICAgICAgICAgICAgIC AgICAgICANCiAgICAgICAgICAgICAgICAgICAgICAg ICAgICAgICAgICAgICAgICAgICAgICAgICAgICAgICAgICAgICAgICAgICAgICAgICAgICAgICAgICAg ICAgICAgICAgICAgICAgICANCiAgICAgICAgICAgICAgICAgICAgICAgICAgICAgICAgICAgICAgICAg ICAgICAgICAgICAgICAgICAgICAgICAgICAgICAgIC AgICAgICAgICAgICAgICAgICAgICAgICAgICANCiAgICAgICAgICAgICAgICAgICAgICAgICAgICAgIC AgICAgICAgICAgICAgICAgICAgICAgICAgICAgICAgICAgICAgICAgICAgICAgICAgICAgICAgICAgIC AgICAgICAgICANCjw/uTXbR4trnZGaeaG5X6vwUk2H Gr1WGH9di8ApNJZfWXzmvfQoBwjIHeWdGYEkQdfOVrq3WNfqHT1QbXSyV8WyL9PwBUqbUI8LNFOqQTJb rRSaRHCvJSNfYnO9WOEdPGigSX1AwTYvSQkeQRHtUIMtXkMkINKxARNgZABuMBAvTYLRGZItZHEuGpAl CSPcXTQkLE0WCPNjZ484cqUlUi7WEc5DXzJsDB6gqb 3GZfpoRUUvUpqQOlx9RVboIG4IaGBeqFDxXFIkKXMUUlVnP0lvg6LdWnroLKUIJOoqAP2Rg5KttAHkWX o+Zb0LTN3gk4RxISghRTYwZT9nzo2EDRkNDaNtQ8SzsPdkBChvCNXhlZQERYAoEWDtDTmvCkY2LZYEGR JfrZT4WeT9YtSlSfGiYPA4GAbhIA7oKCxgOV8MSFQ0 PQgyLRQvLCSdS1jNQjIsSKTcHwXplXlyXG2MXbMrE3RpapOefEFqRRDaOXLVYx1+DQplbmRvYmoNCjQw UVAgb3GsVDj0YB6SKXMqIRgnNJ4MDRYtoH5rZXwcUG4QJrPwXyPsNLFYEtCuG07gjMRkMMp0Z1MqQaJi ZGVkRmlsZXMgPDwvTmFtZXMgWyBdDQogID4+ID4+DQ wgJY6JSNtzacVgGHYrSa1MJYVnMQPjLP2lLHLiPPGaG8O2xWlgKAUJBxXoH3njnaplGX6uZERvX373zF goeuYsQKE4ADUzHz4VPIVaEDT1OJVanRXgCykyWBCHNHvhGU7EcFKrPNZ2uF8xROojPKHoCYTsD1fNEj RmeJyuTH49hPgafkNyxJYqIGp+Ey2NBO2gp3MzTLy1 rmWvWLpdZPUaRLtkWQTgETQiXLChKRI3QWH8GWSNWyIeTILxSGHeXGyrIGMdBJAtbe6WSGXeJSLnWxmh MyFcVPFnLIHiVCfcZNOoUZI0EBUpTDYmRCKiFO4VLsLjUWTnHYRpGQrxJRJePGDxfj6TQSFrNVKeNcx1 RDLxAMJjELSaJZduOINmKRUpJGv1PRJiEKLdRY7MWt WpQVSfLXC6APbxKGXuBWJoom8QRZFsOCKaTsWpIoDvYNOuRSUfCGqwMUGqBQD0Osd2OXNoPSYbIE7UQi MdYPEhEZh5KXMgXZBsWWTxcn9RMXGkWPZsCpF9MpVtFTRkTWApDVnoWRTzKOHqLYA1BPQcZESnAQ4VLx LkYNSzECYdMmEnJFCcIMNhoz6IYOHhMAFjVBV0BtPq AVItOGIlLXshSJXiOBH3TBRnOWQeNZOnBA1PWfNkEWBnSJe0CUiaZQCgTXZdwd6KFVMdPJDqULfmEGEy ROAuZFYtVRjwZGPsJCK5UUA5UUEnXXCvZC6SWaEyYZIoTZodWSgzYJBhRDKqua0ASKKcJOLvYAV6JWEf RTKlXRKzWZpdYKKhECCsBuEkSRNjOQJpTY2KOsNeMS TjIbG1ZBdmOHQoJJExxh5ACFAeLGHbDAXaRGFiVKAaYRAuZDreYNKxSSPtVwH3ZPZwKGJnAJ3CXnAhYQ FdCoJ1VGrtLNFmTPRpts0RQGEuERPgAyP4FyYcNVTuNNZrQEkqDNTfTBPnEHnaHCFnEDOvHS2LKvMeWB GiQjB7ZAYqRJMkTJSqgu9HAVPaXHXdJgpkHHVyGTQq UOZtRZvxXREzGPC1GBu1JYCpDRSpPM9MViZgQGKeHfQzQaitVZCoTBUgao9UXPAtIWIwUYVvEzOuMYMz AUHoQYspNNYoPLY8Dnt7KTTkYGPbRC6ZLmQhVVJpPgSqCaqbYWMaSZPmze6TIKJbRAMkEuGgHGMbILZw KQTiKJwwSVQgZEM1VvM1GZMlAYJoOR2WJxJvUWMmGo whZoYrGZLpZWThlt4ZSUZaTMFeFGXvXSDbAQScPDKmFWoiUPKfRYL8PbS7SSYfEYPuEU3KVjJjOLChYa u8QKIpDWRhMOBezi7ZsAVetEmcol4IDFaHLo0FuNroFVPrURvyPs3rrUG5VULjWPPKDg4KuvYeHTWyZL RFXLjmUJVaKBd4MbjcUxGfXJwwUlW0GJVsT0MmIBVi IJZgGKUjJ4XdCnW2RtJzRLIqRANcP8RuYtx1BlC8YxC2OMG6MLZ8KlPsPZZ+GI5yPCb+Jx5Hn5KajyZ8 isWrTGxkDBM6Bi4GAONOS8ZIHz== ID Date Data Source [id number] 03/23/2021 08:43:44 AM EDT [facility] Name Value Range Interpretation Code Description Data Marifer rce(s) Supporting Document(s) History and Physical [facility] FUQEQz9lInVDJlMl18/REIkmDRXhe9SeEZkjXFo6MEuvYBVnA7BoJDW3qM7nKCS2XZwKFoJhOzVaAHF1 lbm OcAfhGCmZoUARbKtdWTjHtYGoiEinyxZJgPM4GtAV7IJZcB45sAIIfVHOfS8IsGGZgWOB+Oj2AODJigU IwZD1LGbjE0P1Hb7rEKb8yDS1NYbbFSdRZ8Z7lDOmshBZA2vfNZjJlZvRwGsW45QCjBj+mO2gJJvrK98 SAWxA1u/VX4PRclw4io2HT+t9/3QDoA6ir0c/l1zB2 1NWd+zmf8Rgd50LJTd/DHYDSS4LYwP6Dd9f46nl6CtwB8bfQUaJK1/PnJRMLa00NGhBZd8trt/lk+rB6 eK66w+XyJvmieurzs+0RP6oPE6fX8/uot0Bse4D2RZ16Uhl4Nh7xqw1wocElTQsfT42S6CQC9Sg6UVDk a6NI+/9D8tas4BKWIY4ydzgDTxlLuawrYcLIutEjWE 2bhZ/NbkxEkCaga3DHPkkpsBLcvBMHMys9EusT+rKiVSPgehdgshqc2i5A3KnlGlZWTEseoHaY/GjNOJ 20iBofKUvHVfNYsKfaZj0Iq3tHgrM121W7dlk1k8M5awOMoXk85vUX8fLtbitTw+I4kYC8oft1o0akUT 0mNsCPdxgLcEynb02RioSNkrG/DF/pzYxotD4zm034 +V97WQms8OziXLz3tYm4ggeeZ4sUloJiZQIIJCTVuLVFy6bH/FEPRiIGe6PYrR3o1qUN6WjKH6Ga86fz LFfI2npttbiZS1eAPGSy0cgWDfbzAybqLPUZieSf4haeVP7BgBOQzOdQzWxtAmimsf39yd7VwtEFcFkI 0NAb0TPPWm7aIQTOm/VgDAdf9VB6WsHUmc/osnQuU2 dSCdJ5jCmQbUV2q2B0WLmz6tdcFxMgGttdtRe/XuWqtgLF1cYD+XF4p3kYrEGKsm5mc5Qmt7Zhxylnqz I9yZnQ4jZPxAdKpTHYMq67LG7zfRyhSZ7hbA6hbjL8juZUxnh6iJlEmnQnK1t2ZvtxwYpG57f4p9m32a VtL/Bls4IyeeFLgpc32CG9E+cDtvvSsRxbqfhVyszz 5n8ssmUD2T42N83hueBw3D9sJxXD9scIo+3Vv20rdeJgzMx+X271JefgQdKkquRKzHas1FAwlSuv57I9 LOExE5X7gaF+pAQ/7HkEMDJ9KKprfMxQ7Ya8Lsct5WN1cPfO0KOgqJDNHUHqJQLUKVJD+SidUp4C44O/ zWUAmx8WpRhsl1Z4cjjwoKcWapc+/orQwnKfcIfMtG CgIX+Y3LoDW6Sjwp9ZqueO2w+n9nXhSh7rvwUQKlNZ/lndRXJhbV1IkmHlJk7vsy3T28noQcUrNrACRB QhaCrnPalRFfqoPXeSIxPEwhnWnYXv36IP4g5udWb/iXvWgWWJggGm6WLkpZTY2DJVfAS45KvZiBousQ lBgaO457+gugusr7e7Np6fYthpaAr6dBczuCb3DS+m IG3ywxFeLHf3Dn45kK5Rn4O9VLBuCJuq9YlJqSb+jtkE3pbJrnvdnWJ0eNpjEo3uu5vKbkA6QkGit6Bm jKfJaC/a1qoGivtfemJk2TlwfgJ/ZDIy0cIlPh18cdduSxnvmCMGuMJLWfCnc3KzsPcfKnh/PyMYsVtX [facility]+Q2ZCij+onBHP3KfdcYTmN8Gy2XsmmF7mPhZQ [file] ICAgICAgICAgICAgICAgICAgICAgICAgICAgICAgICAgICAgICAgICAgICAgICAgICAgICAgICAgICAg ICAgICAgICANCiAgICAgICAgICAgICAgICAgICAgIC AgICAgICAgICAgICAgICAgICAgICAgICAgICAgICAgICAgICAgICAgICAgICAgICAgICAgICAgICAgIC AgICAgICAgICAgICAgICAgICANCiAgICAgICAgICAgICAgICAgICAgICAgICAgICAgICAgICAgICAgIC AgICAgICAgICAgICAgICAgICAgICAgICAgICAgICAg ICAgICAgICAgICAgICAgICAgICAgICAgICAgICANCiAgICAgICAgICAgICAgICAgICAgICAgICAgICAg ICAgICAgICAgICAgICAgICAgICAgICAgICAgICAgICAgICAgICAgICAgICAgICAgICAgICAgICAgICAg ICAgICAgICAgICANCiAgICAgICAgICAgICAgICAgIC AgICAgICAgICAgICAgICAgICAgICAgICAgICAgICAgICAgICAgICAgICAgICAgICAgICAgICAgICAgIC AgICAgICAgICAgICAgICAgICAgICANCiAgICAgICAgICAgICAgICAgICAgICAgICAgICAgICAgICAgIC AgICAgICAgICAgICAgICAgICAgICAgICAgICAgICAg ICAgICAgICAgICAgICAgICAgICAgICAgICAgICAgICANCiAgICAgICAgICAgICAgICAgICAgICAgICAg ICAgICAgICAgICAgICAgICAgICAgICAgICAgICAgICAgICAgICAgICAgICAgICAgICAgICAgICAgICAg ICAgICAgICAgICAgICANCiAgICAgICAgICAgICAgIC AgICAgICAgICAgICAgICAgICAgICAgICAgICAgICAgICAgICAgICAgICAgICAgICAgICAgICAgICAgIC AgICAgICAgICAgICAgICAgICAgICAgICANCiAgICAgICAgICAgICAgICAgICAgICAgICAgICAgICAgIC AgICAgICAgICAgICAgICAgICAgICAgICAgICAgICAg ICAgICAgICAgICAgICAgICAgICAgICAgICAgICAgICAgICANCiAgICAgICAgICAgICAgICAgICAgICAg ICAgICAgICAgICAgICAgICAgICAgICAgICAgICAgICAgICAgICAgICAgICAgICAgICAgICAgICAgICAg ICAgICAgICAgICAgICAgICANCjw/bGPhQ7uuhDKgen F5R7lmPc3SZf1DBB9zd5QlCNUsUXdgfaNyNkzWOqWkCHOmXhuBLca1NZeuUI3EgHVaQ2KlL9VtMJqrRQ 8DRYPqMAKasLFsZBUmRDRpIyD8XOCkKOypVQ0QeBMkCVrtOMZtESXcQgThIZSmAIMhOUDqQKCtKIJWER SoYGTgIoRrZZCkGEVhSQimSQOPUUO6ZKQiZoAwWVet EY8Qs4HbxNS2XUg+Vf2UQK0is7DzMRf1XkPnNH7lwq0EEMuLDwWhH7WrvvI8KIS0QCErXl9TDXTiYMDv eHO3UXBaKZCCPyLmJ1NjyR12ULANPf3+TFoczbJuWhnMOgC8CNAkr1LtVJr6QI9BKSEzWEx7kDDpNTYM OMK7QIyevyOcGCXOmsIvCAQmN5YbrVyoIeSgXITvLW 2dPN8zGKEuSVO2HbE1YHZWDV5JVTZjKBSpzBWxNGDeOZRUXZ3KRDjiMRF9OARwskEjmKXqDYkfYK7IFI JlbnQgNDcgMCBSDQo+Ch4ELK9xl6WcBNk9MGOoYF7fzn8BBGoIMdNvY5G1gDIgL2Q7UIupJz2XNQEqHX SgFLUxOWWJMLrhYS6ZVL8gmvV1MM1NdLXnLJJmYCWi nUXwFSx9S09weCXbOAnzTM1CPNQ+Jayla+Ur0WMOKiZRTnOHDcRxHqMNHXIjLoD9TuX1PUm3SwI9LaYF54 kUpxraYsGPupAA8RIX2oMQMtTAOIZF0PmUGdpY7loaP5AvHeQRMVNeWzY70ldDPrEFGoQCQ5BZIxXz8G EQJyV3NxebDooBpnwxAmWQAwESHMOV9TMCahudYpmI AciGgfYT68dHrpES6MYk0ATkObVO1wdy1YnNXgSq3VMBV5WD4ZCXAcRJOgTJEnAAM9MVCiHtBwUQbcPP EpLYDbYVU3DKHuPPHiVF1SLjUmEMBpXTLnRucdCBNdIJRfst6LXFYwOND8HneuNdLgLVGjJSOaGDlbGA MhLMWoJBK6QWWuEDAyQW7ZPnKsOGIgUKRxPishZXYc BOXica5AYOKkSMXrAGB8SvJpFRHbCASfQPsfBNIzXQG2QZNnGTWkGPFjKX6EBhYvHBIrCQikPWNjEVJp JWOhga4SWGEwDMLoVYq8GYErCAPiVUXoQEqfCKBiTZLfYVk0GCBhFVHqBT4BGcMnBWVxIXM6DKJtNVVk UELwxq1KMYHjRLQgIDn4YFLmUDRdLUVpZMtoIWBjQT H6YHEdQYRjVCPcLI7RTuBcKWZcFIl8WdpiYVCtHDRssj2HISXsUJCmGdM0XFLjDUGdEUMnDNfzPMUfYF KmSYB3XGUfAQIxXM9ATxGzXPOtUyEqAetiBIZzMWIlff8VMVEbFSWkBnK1UINgYYDyQGUaWUstQDTaQJ A2TbOrGMEqGFRmQA0BMjFuDYFrYpc1ATxzMCCbBQOy ru0JITPoBHElDRkzOULkMEHrEHNbRElhQPCuAZH4KWG6CMYdZIKzET5QKeNyVNZwCfnwUZafSFHsKEZi nt3WSYJrIIUrSBU1CmClHHVpEUXnBBrbEUYmYYOmWID3YBDuAQXdLQ1SKoJvWMZwCgR1YMnmEUAhQNTw pe1IBIElRUDmKUOpAyNwXFIcGZZzSPqcHGMsBSMwFC SiFMObNSYdZH8FLiSqOFFjBxXgEIMkKKEmTBYkpd7IABVjNUB1JnR1UzWcMYJmGOPdLDtoIRQtQNUvVf T3YEWzRMKqWK0WYeIwANPkSHS2DYStXVEsUVAuop6KDDFzYYZ9XXK7LwPyMLCiGQFePPtbEYWiGOC6Rn j8SOWjOXOkUA2WRjJnGWKiDZctLGAbHIZpTDJmwr3Y CPRyTTU5OLW2CJLoQAMdCZVsZKmsLJGaIHU6HcuoIDZgTCUmRR8PEcWqIBFxUGy6YuquSBTtNYAfcc8S OSXrBRP0NKH4STXpUEXqDQTyEAmgQZYzSMSuAuZaQMQdBMYtRP1DBoKzGJMjCTY6ZKBtHJMkXKNbgo9S TBUyUCV2YVK4SGNoFEQaBDYiPTgtSPStUEOuVcNfBD AwMGNvFB8ZFfDbYMEzIAN0SmYbVUNqYTJyut0QBUUbYCW7EfPnTqApKYTqSYGvPSftHPYcAYZcQIxwRV VoUCBsMH4NMkGuHXGfRGY6SAxiRCHsYHSgte7JBEHmMFX4OCSqYSHnVAYsHMKcEYbdZENqBJS3IKuwJW GbABYtJR2LRzRgOGruDYREEjv4XLfgB9i1ZXI1YR1H A8Udn1OxEFcaBGPYNRcqSN6rzfHzPJWeMu9VT2cMKbf2AdR2RzEyTIWzQJJsW3XtRFIpCjB4OfPvONHr W3UhDo3cLUgkEfj4DcK4MZQaUtHnPCR5XOK1LQJhPLTzVZWgRPF0HeNwZA5NUe0PKhY3ZGG9zEXoWt8K NVV9BFFLLcBtBD1NFEr= ID Date Data Source [id number] 03/22/2021 03:46:54 PM EDT [facility] Name Value Range Interpretation Code Description Data Marifer rce(s) Supporting Document(s) Consultation [facility] PRYUPm0aZbBLKtXn65/IFAowHGYge6TaKGcaBFc9AZadRVNtD4PrEGS9kT8uBZQ1CPdSPbThPwRdAZD0 lbm [file] parts cataloguer+XHFkhUSjEWJyBzhGwoXo1yD2bpOLchU66QF8nT4DhoBVF5+zD8fu5YtRI+97rw2q3vQuO1wBVNbQ [file] ICAgICAgICAgICAgICAgICAgICAgICAgICAgICAgICAgICAgICAgICAgICAgICAgICAgICAgICAgICAg ICAgICAgICAgICAgICAgICAgICAgICAgICANCiAgICAgICAgICAgICAgICAgICAgICAgICAgICAgICAg ICAgICAgICAgICAgICAgICAgICAgICAgICAgICAgIC AgICAgICAgICAgICAgICAgICAgICAgICAgICAgICAgICAgICANCiAgICAgICAgICAgICAgICAgICAgIC AgICAgICAgICAgICAgICAgICAgICAgICAgICAgICAgICAgICAgICAgICAgICAgICAgICAgICAgICAgIC AgICAgICAgICAgICAgICAgICANCiAgICAgICAgICAg ICAgICAgICAgICAgICAgICAgICAgICAgICAgICAgICAgICAgICAgICAgICAgICAgICAgICAgICAgICAg ICAgICAgICAgICAgICAgICAgICAgICAgICAgICANCiAgICAgICAgICAgICAgICAgICAgICAgICAgICAg ICAgICAgICAgICAgICAgICAgICAgICAgICAgICAgIC AgICAgICAgICAgICAgICAgICAgICAgICAgICAgICAgICAgICAgICANCiAgICAgICAgICAgICAgICAgIC AgICAgICAgICAgICAgICAgICAgICAgICAgICAgICAgICAgICAgICAgICAgICAgICAgICAgICAgICAgIC AgICAgICAgICAgICAgICAgICAgICANCiAgICAgICAg ICAgICAgICAgICAgICAgICAgICAgICAgICAgICAgICAgICAgICAgICAgICAgICAgICAgICAgICAgICAg ICAgICAgICAgICAgICAgICAgICAgICAgICAgICAgICANCiAgICAgICAgICAgICAgICAgICAgICAgICAg ICAgICAgICAgICAgICAgICAgICAgICAgICAgICAgIC AgICAgICAgICAgICAgICAgICAgICAgICAgICAgICAgICAgICAgICAgICANCiAgICAgICAgICAgICAgIC AgICAgICAgICAgICAgICAgICAgICAgICAgICAgICAgICAgICAgICAgICAgICAgICAgICAgICAgICAgIC AgICAgICAgICAgICAgICAgICAgICAgICANCiAgICAg ICAgICAgICAgICAgICAgICAgICAgICAgICAgICAgICAgICAgICAgICAgICAgICAgICAgICAgICAgICAg ICAgICAgICAgICAgICAgICAgICAgICAgICAgICAgICAgICANCjw/uPZwC7wvgDAkjoY3W2poMg3AZx3U ME1ow6GwJNMlFVbyhgCdNatKRxYcGEOaLueEAgo6TZ hbWK0XrQXjN9NtY4GrFWpnCF9XBDAkFKVcqGCwAPXsCMFxRpC9BROlIJwgBV2EeOPcMFthXWLgZBZyAe WmZAGhKTMwEZNdLGFmZAGLSBDcANXgPiJdDMOcKINbUIvnIZJAHDE2TWWzRwDjJRDxEDPlZbRqPFMCYD D9OIIkQpYbKLtyEO5Pf8KczFGsIG6OLd8KHaKeQJ3a xf7ZXKYqFEXeHcvSDke4ELkaMF0OqMAotJP9SfAdRRKTFrZdG9sdb6NtFXmuAPEYUSmgRL2Qy3LjtLDk DQo+Ky5SWS8mq9FfFNo4TmSrGP8kkh4TVQjBHuIyD3XntRiuPPGjpyN0dICcZHY8XIliu1RxAVRiMYWQ MGXdjGD4UaC1SeUsMaCrATL5VYZySE9sCUurMF6EOC U9TZpiOLRmVYIbA8eZVgCiEEOfDlGooHxrAA2TRnYaF9XyrlMjcWX3IuOpHEFBBk8+DQplbmRvYmoNCj L4UCEnf2UdRWi6NV9TEAGvLKizGK3OSAWnnS1pQSnfZA5AOlU7OHNvIOQMNdDwP06wuPChZIj4R6YfTq VkZGVkRmlsZXMgPDwvTmFtZXMgWyBdDQogID4+ID4+ XVygHO7NQClbdeDhYXNgXc9HIXSbSWFjRU8qRKWvTQNmW8I7dSbkMPEXFxRtE6moppqkEE6zOUQdU215 xXezckQfBYM4SAExZx1WKMKhTFU0ZAQmwSSbOSDfBLZFPIzoEB0LyWZqTMN6yZ4vEXjqQQPfWTKrM8nA NmIbxFakDG57vKskqaUwyJNwNTs+Zc8TYM8es8SdHN g3bpOwQVviELW4TPbpYPJeZYBoKMHsHQC4OMF5PBUJTlDnFGRpLXSeRNbqAEDfGNOeoj3QTGGfEZI9UI s4VECzNLSuVRUdZCvwJRXlJXOvTDP3ZQLkRYKnRP2SKrJmADMtCPAlUNexGLQxWMNmaf9AFMAoWRFwLs u9FyRnUNWjIZLxGBnoBCFzKUY1LOH5AIZjWHTqMI3Y KpLlXCQuXWn5HNyiQLZmYYBsui8ZVTViBSEvXQB0OoVwJKHwKOXsVAgzLPMnEMOpKOz9JSInZQTvNF7X BrNuFLIxUKXwKQUtLOKqAAGpoo8ISVMhCPKwSlh2ICWnJSPpMDBbTSerFBSaLWD5SWY4YDNaKCDiEE0S OzIlXERmMXE4SRTtISNgWVCcwz7PSZKwLGXgEtIxMK KdRTMeIQLnAFjnCPMoROH4ATW2CVGsLNHzRQ4ONaZaWTXaTAc1DZTyOYWqKETxjr5IMXQlHHAmMaPaSW HbFJElIBIzGLroYUCoFYHcTpI9ZYUzDKFqMX1SLyXkPCEpKjL7ZBTnRGZqSGCsjo4SECOwYVQaJaPtKF LkIBGbCSKeYQjdMZChXYZyVil2OWRwRFDoGH5LVkTb OTCiLzG1UNPkTWQqHDYavu1WETBlKCIgQWIwCQUpNKXzUTClTEyaEUZaWGM6VmP7UNYbIIWiCU1EGhLm JWKkRgNnDYEiHLRxMTKniw9JIZLsWSKmDND4QrUpLFMjQVXfDHxkZEZiGMP4DuV8FLEkROXpDW7GVeHz FQTiInC5YRKxLNVpDBOkud3JQHLaUIWtBqQ8IvPpDB FrPNTdWYndLENdHUT0LpW1EDVaNDLzYF2CMlUdYLKvPpq7FEkcNYFhJIXtcy3GKDFrFPHdYMZeJVLaKZ AhBOVmGCzgWRJvKVX4LKs9WYTrOOMmRS6THyQqXDDwFrrlWKQqXBDrWWFimr7CGLIvMQPzGIM7TWYeKQ WxAWOtLKcdNSGoGGRdOnY3BPZqEGHfOY9MWvKtYIMy JOA6MnziCEKgYCZdpz6CINMoRTS7KRpyZAGzOBVgYMGtWBecRYCuEDXuIBP5VNIpKHGoPF5SDuQfFPWv GCK7IaTkFVCySMHkxn4AWMDoIHU7XhS8PBZkSAOnJZIjOBidODVnOXSrJCdgHKVoPWFcHH3LQhZoULHc DUUoVfTnFBJzHAIgcn7OMXSpPQY7Kvv2TeDzSDBeOX UsLXctUHBzYLM8LcF1KOWjDQIrFO7LGlVwBBNjCJx8OeUbGTUoIZWdpw4XRISqERD5FDR6HfTxPQRzWJ XdHFtcZITbHQJ7OYP0JDThZPMxJJ3GNhDsJWCuURadNrCbAWVxTFZarm8WINXnPBX9WSO2ZWXvZQQcVI ThEKgpORCuCFP5HFE9JRSgSJZeBH5BYxXaRFFdKzPb ZtVaXMCiCOUhzt7WZXTsXFZ4KQF4BiKkHMUnGJGuIIxuFCTaKVWkCxA7VKEcLZIbHZ8JOfZcTRNsHeFl CVpiXBLfQWAdgh9JBAHqETI3CwtkZXQaFIRkSUZsCOkuAIIxONQdOae7UCMnIBAaJS9BWsEnWDSlOkF1 TbXfHNPqNSFggz5RfLKtjZmtwb2UTJjYWa7YtBdtZK C5DTfbDs3ynMC8HPYjWQZZQd8GlsMxUHLbHQOWCGizVOXqGJYhQIV3GCXiVKddNOVtUQCqUzB2J1WbTA f4HLDfWAC4KoJ2VrK1HVJ9UNK6UPXhFbE7MFZbIMM1X1U2LuR1FZU4RIw+GG1lRMn+Bh9Pg1YfuhZ8pi OfVOr5RbL3Tc6BBILLV6CTVh== ID Date Data Source [id number] 03/22/2021 10:18:35 AM EDT [facility] CT CERVICAL SPINE WITHOUT CONTRAST [id number] FINAL RESULTInterpreted by:Braeden Macias MDINDICATION: 31-year-old male, [...] rce(s) Supporting Document(s) ID Date Data Source [id number] 03/22/2021 10:18:35 AM [facility] CT LUMBAR SPINE WITHOUT CONTRAST [id number] NAL RESULTInterpreted by:Braeden Macias MDINDICATION: 31-year-old male, [...] rce(s) Supporting Document(s) ID Date Data Source [id number] 03/22/2021 10:18:35 AM [facility] CT THORACIC SPINE WITHOUT CONTRAST [id number] FINAL RESULTInterpreted by:Braeden Macias MDINDICATION: 31-year-old male, [...] rce(s) Supporting Document(s) ID Date Data Source [id number] 03/22/2021 10:03:43 AM [facility] CT HEAD WITHOUT CONTRAST [id number] RESU LTInterpreted by:LUIS MaciasOasis [facility] Hospitalир[facility] FAIRFAXLINICAL INDICATION: 31-year-old male, trauma.TECHNIQUE: Contiguous axial CT [...] rce(s) Supporting Document(s) ID Date Data Source [id number] 03/22/2021 10:00:40 AM [facility] Name Value Range Interpretation Code Description Data Marifer rce(s) Supporting Document(s) [facility] GRUBRe5tKxMKFjDjs5AuUpZbNNByOP9adas4S1M6dNVaY4GidVHgn8wbQ3GjL3QpNCJpMIZYJE8YyFPo jb2 [file] Garage Worker/3SLf6bqCMABLwMP6GHjm9C93rU05wP+vWt9Mv0IjaaJdDFUnQj2s7gpEuw8yxTK3xc8OxAhRlqzi [file] qDgv118jjLkaadx4wbzv80gSD48Zbmb+ad taker+J+9nm0u2CCncHIREiW/2n/qao8nBly9IEYf7aOTl+fvKR [file] D3ycIWjs+school psychological examiner+BGSxRRrWTSXXHAchdTdrPlHc8GHZpnWPiCxg2AjMP5WQ/oN1Z6xlWQaKPMcp7DCJadN PF9GaKqesb85ekhyl8AbxMVZ+nhmdVQQubgDVR6qe/nSfqqaxRkPWPxl5Dzuhp423Y40696Y8o5ou758 mon7zjc2gFB+ewICWhaWgKL5Samnv2jxQ+67a7nlDM OTh2pf8Yj7+lyTvufhp3Qmjy62W+z6P+6Bp2bC4Hy/fXRPByjynxDmE1jT5RzEDQOxQfhskdRRzAaQuu ywCEU97o7kSeSX1D2JVurmaYMp0t0hZaLP7E7ttpTeY4l5dWNa0mveONt7mb6lIjusS8Je+oaP4Q78xz V/A0kofCkL1voCTqt0utngJCWk9y5bPSZN6S3TBfse QCYo3v3xSOOS8yw+yw0NFLxLkU9fq//EB1zwsq4B14WBH4M9JQ71WqTti59y6Ctk4dtz8qlaW5z+8ri4 S+4DjAzCbhB1+d22Zxkbo56cl5rok+yxzbmH6v/Fq3gOXQ6qB86Fw7h4OOrN/pKS/oV+tzt4iGdVx0hD 490up+uDP2qz3pVZAzjp/Mi8dJNqqddPt2ZOP0LBew xMr+JyFjrMi2Vz8d6OnDab+/CfLac3X06Om43vrk84nbiEV+50eUA7F/PpZZhG745z8b+ru9zUK/x0gL zQ116e20G0imBX7Cz4QkqAGod9t/RK01uo3oGn2EZl0yPjecSYieYNeRLrvrP/T8w2qlCvsmh6Q/UM9A PQq9Qr/d20IfBRetZLyS6zGc2H/HL0wcoU+vkDu3wo Gb8JmmZ/H3dKiH2JnNPhC7v3w6SpQ1cN87f73kYT3Zl8H76sp5IooiSb49yYaWOM92/GzQN+gFeoG+Q9 +zH2NR5JF1wO0Nt+W6Rcoabst3h20borWVcbXwkipqHqs1Td9AUklxneLcH4obds+mVgf8e0F/G/qzTe nq8Ow6Gl/QO/PYuufaK2439CfMx4d7H0jascUY7Xss c2jajAgnsd1vvinyyMOCd6aNTRvJ9wZ18DCr+YJ+bQ6rG1tET+kx5VwgGiludhLiIklxW9l0hoh4Zi4W oyOp8Vz7sR4Pt0lp+m16arIcQz4OevpP+ga9QC/Qd+l60OHa1b4ds7fTG/QT+gm9QW/QO/QO/GWv9T8J n/e+oKfcoG/QC/QCfYe+Q1/m3o5O8WBZtnF+Qj+hN+ zJcsF2sn6G7F4vv0G2mzAM2pucp0R4llLS0mcse+I4Yq4s1RoQjo/g+Qqer+J9Kx6weU6Y0vrnM0dzH8 /u6M8d/yhjM4b6404+3NGfw7+KKY/ubfzUm34a4X6rKd6g4ydOk6VOjFM4XF447mKU0/aP54rtN/5V6M O/goWm4jNHUSN41K+jZVUvO5iiL7xNdf7eq+FfZbDu 6HxWGYRgr1bD9GJV7n3D0G1YbmOb7Sinj4+KesK/kbPZlsX6fMZRlbV0ftaT4VOxlhM3dmts+Slb7j6o r/JaaK+zpGm5SmjpuN/3Sr8NVtznl64NjaEzpR/Qd+bF3or3v+J4PN/xd95IvrMvzO//SuBfSfhXecyq 48O/ArXyf24M+FeS/lWWoe+P3yVW/nkWb8Jxf+K93v 5V/GftXTldYupk+0b2geVv/6rHu7/9q6Pf/5EcEo16e/h/1Ooj7v0PiU6T9p0qnsR+b94xGdThc//q1b h9/7d/JRl8+Wyu6tCnw/xqr8S/697Sg6ru7iZK7W0AGB4929HkkacqPao++oXUMZxq2JgspjSF0sno+9 4BMvddd702F3P746+MlRdxZ3w8/dslQWH99j7HPFS8 +1eSK/+6u4BX5dahM67rQ2c/usLO27/MIMqpv8mwzYPF+xv+MwLpxI0m3V/F/aR/gsXug0F/mlmucTX8 j8Jzyphm/lWMsQvjc/hXeQzG5/Ac0lacm5i0X/vfvId/leUG/g3NM92w2U9o5MD/Y40y7b9bkJ0Hl1Qm 7SP7Yy98/X/nmrhELb2Ni8JgqtS03hm3d3Mk2MlnD8 +x+3MP/irLHfoO/YB+QL/f391Xe/FXSQ2MK+uGr6ypv7z08A1DD40iNF12B1tNU13pEh9lT582antvqO zg+I7jO/QD+iCy9m4R6RO5+asoF1/Hxdg1Ssr3RD61rHQLp3s0RBal65dzP/y64cExAQr0d2Jnd81K1b 21LGuVO/Qd+wH3iW6s90b43RjfVm0D7Km6Ub/Q7/Za 5X6i4vkGosB5Y+8xUqgZ4du+9ZZoq95/Km2+/atTHtDj+Q483+5wPo6yf/dH0s1O2d38Sk56nZR1tf41 1oVyvUda/PPe/4WqJ013fabzjHX7tnpJne+KcS/3Hho66uxXX1s3OQ/7IYpuY0uVQ2pVj1p+bdf63+9a //s9/CuNY/wZ/7vWvE/O6ns4wD+FPi/oG/QN+uA3NM yc5S14h23UO9WA7CX4+h/s4K86+Kue/MNl69eYxusV6bJZwlo+rtsFfYO+QS/QC/Qd+j68rE2Hi1Qc2w 7frAd/disZv50plEq+Hux9lj9+qoO/0eLogQ3Wh7dcr76WS1lglfqbw/N1PF/G20W5Q0wyjYrn1S8VGL qDHs/T5EyAn5flds7VSguzfNDhlpY+QS/QC/Qd+g79 zX68ey7+qoO/3rQuBeqpSq0cp5/fb6YV0djhZqYQHuaoMI8CL0VM+oP2q90uT+m57A25Qz7MTdHI6Du4 M8wJ5zY75X20Ny/VXsOGdHZumONH11Ko6Ow8Zf7AvtM/oB/QK/UQfsE8moQnN9zTm3A39U50ne5n8cD+ aoC/NsUaOcqiZf0jNB6/Q+x7RxXac/kIFdsHglZ8iH 9umco3OShFWo0FvrDs2mf3v0mf0Nt8Z/hFcUZkzUe7C0cjr9iwydrf5Nx8rrVW0sZ6Dz4nwujS0Si2En 7Yum6YP7S4wIu5e9S0G+0aRN0E0D+yHP/0Nohp9UV1qb/H2i69krSZQ6D22L77h22mQ5FwkNf3JqpkkX +rbKw1UvwnCshCmG7XKlgiER57AM3jjJRNwiOc3Rod 9FhKozWfMsK/mjHw7qclC/yr7b+N8K+p0RCp6l3+3wj/6pRxfMfxHccPHD+oSslN6kC/LovBSC3hqxtK 5NltE5A/GpgfHOCvhhVft/eDJI+sc7SAprqnECcOlq9T18L/6tm3oj5I1xFUro156hX1zPc16EuWvUtz s/pPNzJR0p6i50ivOo3l3Clc//fv7qynl6uI5HqrN/ RMhgUT1n2sS32uMvxYvO6mC1z7+NjhaG/9C9wfM2ztSr/bn4f1sH/QN+il+wO5S7jyVT504RX+1SlDX3 x9RUp9Fzir3RfohLaUD/rzwvu7/tq853y1VjPwcU/uiK05qcgw0/7Wh1a9m7mFvh1/7g0d+W+omB/c2z aL92j7UKHvm4ss6PSudIfifBs/dQxrv1ydW7++8Ypr wGbIzLvidISf40A8+UyLY+ogWnRgafS4qoibh/fdFmn1eUsrnG5D9/l5bNz/mBL24Gmuipn8iLw8+1d3 NPko1/3c/lI0yzAMC/+5t24k/8n9twSpmgwc7Qe/1+65G41tiMmv6+wV8qby252w+V4pNFmSs1PD+g1t xbdrq++Rwr9S+FcK/0ql/MlVje8TbcngZx3dj/KMqy m0Odc4Z0fbUbffJsU/2v/4KvW/r+DeslQf8si+9+lNyl706Ib++NgoO/QO/YJ+mX21l3TcbZBwS2cS94 Lal2Plv4Cyek35pkR2tY6qmNLV1SV6Vp5A5kK47P97o06yYn5+Ksqj+BwN/tdDj47f87Qfy+X1Jx6uiv Tq68R83iI4VcL9pMQv1KBxaPDr3TDiuqEFJNC+t3dk WQ+fpsFfnXLpg7+Cbfw0cgb29HHcda9jjOz51+Ip7/bG+6u4s8TTwcOPJG2wijCK8l8KW8vLL5G86T71 c82pN5Jt6px6yK3inxe3w48SA8Wz6y9p781AWYDhX/BZssYg1E0h89zyc+2dhG90u8KYOr0Q/bd/9ZTr +W7/UcsZ8DlVgE2g+dK9i+Dn02zGmOxwogF0ruBJ0U +8s7XlgeU4pqo7TVgCQZ+A2OoV1oIxXse1cRyF9punce+t5o80/KsYM4O/inHVy3/W3Q4lFAIyn8Va85 QNd17Tf/yT080xeOOe03QyvS4LRsEW2Dd/UMFfKfgrBX+l4V+NLGuVF/Sr9Kv+93XV/47dHl3O7vY/q6 q4WmM8yE8T/YB+QK/QK/VA1337K3NjsRrB62wbGC/r Xb2j7Bn+2fYzAj65HkLUckkoR+y44G815bblCd+K82HqSzjB+6eBZ2506L6BI+5/QY/2tvr/na3+fyfW I40Nt0c42dagU+n83V51Uk3LVwNZ2Dops299vutUdeJqSW/XM4aEaS9blgcSgsKIO/8MwCQ0k558p2l+ 0jhd2s0a/KsZ/qVdC0z0K7nJ2HS2Ad7S1bE91T57a0 5BX//7M/yrU4a+Qd+gF+gF+m07qvofzrDSX7axPAdzB+db2GH3p05gp6mUxt8Wsy4NzXDBg+R5Dqevae cb/NUpQ4/2DrQ3+BzZld1mD+fa8PeGM/57vF1Z2OaL7/snf/oan6fW/8TN7iuxGgdd6BO/U03p9DS8d0 k3QpnaXfmEgJuv5h0e5iirD/dsAg7eJy2s0uBmIl0l M21oqOrzKRBczXcOB5+L2l58g2htB/OPbxE0qo1K9G2p38A3o6CrmHkarrAvMVo28B8Gvj2jkSM9mzjX +IhHhv6G83ZgM722pJqwjiPz5jsH/ORk8HGSV+Ffxbsc/uY3fHh5CtvOj406gh6Uq7c/4Az/2hPawD5X ebIklNgRM0Sx/VXgV4qH5zLvbEtqA6lN6dawBbxDG3 rfx2yoWq4eR/hXE/2UMYC9np053r5ol0kl2+RB0Af3Jkbuauc2h3hHpzBtK/LJ2I07M6zLKL/j+IV6io +0l0MF6uNPR+yhQ8Tighls5vrm5PzuH/QD+ppfsKvmF+hUMXszapr5Za1U50fzri2X+mv+cNoNIbh2M3 sN+hH7zRaZ3rco9gp+4/gB/YBeUY+qlim2fB4k5tHl P2it+lBAf0XkMYw8g9/qzsep8nS/6gj7l1b/7oj3dl1u6aq6EV+1/0lN6n/xpXDUisK2QpJ9vfmLtG9H bv/v9Fsbu1i8jBlcq/OTY/1t8c3g1WH7u/zSx/zbEefk6ohq7ciMt7dgvex/2G7/6cMe6snrT7UNqfgZ u/5zOS3kc44juWoenpr1fKwKy/sTUs47OQc87/5Vcp K2/rmj20e0r9Mx/KsrjkF/7ujPmB+0jucb/uZcv4Xa0+GaSIFWDo5dg3RtageDchMtQZ5+wmk8pW6Qhp Tf02fuNnR+W/mK6XkFmb34sx0xrGv/tNCyA50ysb++WdrYM25dj/p4Jx82P1+gr/WTprV+0rD+yoK/2p yDBX+VZYFeoO/BC89eQiaq9ISwoYwiN/QTeoPeoHfo Vdfsc6sKB5B0Vm0cu/cVm1JM5on3Ek4Ocq/grJk5Cu5vrX+hla8ntMZ/EuQzQ4U4uAYU9x43q599h7T5 1FyuqbrMp2lqodtXvoXqF/DB290GgsJK/ztbaHd6PDVE1KRZB+qp/e7pfH7CxDFc0Um6fdjp015W8/Zu Kj310v5rYgfCqADiiS1+1rxfKEM/tn6Z8cnd37md6z /yPrd/uN8Rpg1fhUmux1jllPh/FVyirVoPbNu/PhLig12M/XnV+hykxA5Z0n7A4qw7YrUT+tq/YAvj1S p+6dkah7xCp3YT/YCz3gdJ99ejDK1ld/jZi9fb3Wf+9/2q/1+/6v/Ywz1GHF/o2D/o2D/psYxb90MuwO dbi27sv/oe+WXQG/SO+6n/K95T7SS/5Fh/5Vh/5Vh/ 3u0fdKJK692q060r891h454n698j500r33+3Kjkh5Bk0TL/+lbf6X/H2uFm0ZB/yyrAH7rw+ykWgF+g7 0K644l0p/UBLu4LpYx8Y0hHhMwps3Nt5Gm8IkklbD5/l4K8c/BJYq4BiVw8+ypO/mvE7wF2Vbleu64Xf SsLAsirt57Zi+Leighann/6gIu1bb1sBvLuvwK5/l4K8c/J UPtHegvQPtHcXn+Kj/wV7SlGN/UT/aO+r/14O/2rQHW5G05MjLQP+E38m2hlhob8z+rckybN7V4jh8i2 I/64B+QK/QK/Gga45at4JXz3KYz+EG01k1jmawB/B0S50viDNmpP2Xo4se/F7g71L5aQ/9eKp9EX7v/Z GNpKm1kp/x70gd3HjnxD00+CsHf+AC6mvqCdlSMdIo xt6T9btA1V6Naa+Ri2YJspa9N2Q2ESyibx3N5brNo8Yx0SKrG2ka0LU94/V91idG7D6G73gY+UHH/KBj uuZ53xZajl3JIyMM69sd/XVDPfW/1199Ev9FXt98nQ+Iz+CIz+CIz+CIz+QXa3bVveDthC2Ee6/afo6v 2p/jiU1ioce5B/0oumG22b82/ChBgaKQ2w8OOfeo/O TC/cK49mfMzyY1xzCdkqoxrv2Vqy9zhj+6YK5gYA0zMMJndpYbSoHM04o8Cxek1YqyFyrriaw+1tetq9 xOiWcx64u8A1kNOYYptSD7ydSde/Hdbv00frJnPpy+boV/kfsv5kTpM412mU9G6xK29S22BL7iA9qoFF C63Ri7kO7J2C6pPW2PnzjYJUzdyxS+fWF9+5IJ/YS+ 8qgfufJmOxvBW82r9Pu59+o1/8g7uv8UiwO1n65dy/XPqxc/Alejandra/uMK/0c52e7x4qAP8r7ahyIC/FXuo 1/avetaz/zt6ldtT884/9Xp/D0vonf1wlTA1a/QBVb4twf1s211h1RSmbFSgtRw1vtQwgswNsp/y2OsJ 9/7rdftXr/6x67/9q/zb1MO8b5P7+i7f+4vw9Gw9H4 [file] bD2aDgqHyuaJVQNUddZPnAGUKh9+aMi+ANJUM+LC/Juan Diego [file] AwMDAgbiAKMDAwMDAwMDQwOSAwMDAwMCBuIAowMDAw SZEyUPHpKFRbMFNeAK1yRfZwBFPyPWR1TSTvXGQnVMTkioEVTHPbURBsFBg5KRPrUJQwLJHnGBqkLRWr AOJrTZS1ZCGbPGHnJA4kDgRzFHYjZVE5NrXoZCWkPEVktdHXXDIdIMCbXLJ6ZqLdGUDnOYYcNXdgLDLs RYKoGNqeDRIoLOJfWZ8fIiHmQQMoXNTuJLzwJSCoPL ImmkICESGoLKSuSUYsTqDcVRQcPMOsMDeiUQNcMRFyVTDqWFWbMTSsLS5aFwOtVXRrDPS6NKgjFTDrVP SxrsKKPLQoUYMqHRdfERFfKTRkKIJqWAuiMPDiPIIkFCN4ZWTnTEClNM4iCiYuPHGtETBdXEZyBmY6Aw ZjHoKGvJFyvCnnoeh5GOhuV8h5DKOmXZqdYB4estJj ECUmXbidXp1ywAA8RPUkIkfXLi0Wm7YobuV2czKeMoI8RIN9YoGaVT8S ID Date Data Source [id number] 03/22/2021 02:05:00 AM EDT [facility] Name Value Range Interpretation Code Description Data Marifer rce(s) Supporting Document(s) SARS-CoV-2 RNA 2019 nCoV Real-Time RT-PCR: NOT DETECTED [facility] This lab was ordered by [facility] and reported by [facility]. 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 [facility] Patient has symptoms related to [facility] When did you start to experience these symptoms [Date and time] [Phen X] [facility] Patient was hospitalized because of this condition [facility] patient was admitted to ICU for condition [facility] Patient resides in a congregate care setting [facility] status [facility] ID Date Data Source [id number] 03/22/2021 03:29:40 AM EDT [facility] Service Cmnt XXX-Imp : NoneRespiratory P CR Panel : PCR ResultsMicroorganism XXX Cult : See Labs Tab for 2019 nCoV RT-PCR resultsHAdV DNA QI LENNOX+non-probe : Not DetectedHCoV [id number] Nph QI LENNOX+non-probe : Not DetectedHCoV [id number] Nph QI LENNOX+non-probe : Not [id number] RNA Nph QI LENNOX+non-probe : Not [id number] RNA Upper resp QI LENNOX+probe : Not [...] DNA Nph Q LENNOX+non-probe : Not DetectedB [id number] DNA Nph LENNOX+non-probe : Not Detected Name Value Range Interpretation Code Description Data Marifer rce(s) Supporting Document(s) ID Date Data Source [id number] 03/22/2021 12:45:40 AM EDT [facility] CT ABDOMEN PELVIS WITH CONTRAST [id number] AL RESULTInterpreted by:TRACY CappsBSPROCEDURE INFORMATION: Exam: CT [...] rce(s) Supporting Document(s) ID Date Data Source [id number] 03/22/2021 12:35:55 AM [facility] CT THORAX WITH CONTRAST [id number] RESUL TInterpreted by:JOSHUA CappsPROCEDURE INFORMATION: Exam: CT [...] Name Value Range Interpretation Code Description Data [facility] rce(s) Supporting Document(s) ID Date Data Source [id number] 03/22/2021 12:34:50 AM EDT [facility] XR SHOULDER MIN 2 VIEWS PORT-OR [id number] AL RESULTInterpreted by:DAMEON WolfROCEDURE INFORMATION: Exam: XR [...] Name Value Range Interpretation Code Description Data [facility] rce(s) Supporting Document(s) ID Date Data Source [id number] 03/21/2021 11:00:40 PM T [facility] XR CHEST FRONTAL ONLY [id number] RESULTI nterpreted by:JOSHUA CappsPROCEDURE INFORMATION: Exam: XR [...] rce(s) Supporting Document(s) ID Date Data Source [id number] 03/21/2021 10:43:51 PM [facility] Value Range Interpretation Code Description Data Marifer rce(s) Supporting Document(s) Troponin I.cardiac [Mass/volume] in Blood 0.00 ng/mL 0.00-0.08 [facility] ID Date Data Source [id number] 03/21/2021 10:43:51 PM [facility] Name Value Range Interpretation Code Description Data Marifer rce(s) Supporting Document(s) Sodium [Moles/volume] in Blood 142 mmol/L 136-145 [facility] Potassium [Moles/volume] in Blood 3.6 mmol/L 3.4-5.1 [facility] Chloride [Moles/volume] in Blood 103 mmol/L 98-107 [facility] Carbon dioxide, total [Moles/volume] in Blood 28 mmol/L 22-29 [facility] Calcium.ionized [Moles/volume] in Blood 1.30 mmol/L 1.13-1.32 [facility] Glucose [Mass/volume] in Blood 101 mg/dL 70-140 [facility] Urea nitrogen [Mass/volume] in Blood 11 mg/dL 6-20 [facility] Creatinine [Mass/volume] in Blood 1.0 mg/dL 0.70-1.20 [facility] Hematocrit [Volume Fraction] of Blood 46 % 41-53 [facility] Hemoglobin [Mass/volume] in Blood by calculation 15.6 g/dL 13.5-18.0 [facility] ID Date Data Source [id number] 03/21/2021 10:43:51 PM [facility] Value Range Interpretation Code Description Data Marifer rce(s) Supporting Document(s) pH of Venous blood 7.39 7.36-7.41 [facility] Carbon dioxide [Partial pressure] in Venous blood 47 mmHg 40-45 H [facility] Oxygen [Partial pressure] in Venous blood 19 mmHg [facility] Base excess standard in Venous blood by calculation 2 mmol/L [facility] Oxygen saturation Calculated from oxygen partial pressure in Venous blood 29 % 60-85 L [facility] Lactate [Moles/volume] in Venous blood 1.8 mmol/L 0.5-2.2 [facility] Bicarbonate [Moles/volume] in Venous blood 29 mmol/L [facility] ID Date Data Source [id number] 03/21/2021 10:59:42 PM [facility] Name Value Range Interpretation Code Description Data Marifer rce(s) Supporting Document(s) Color of Urine [facility] Clarity of Urine [facility] Specific gravity of Urine by Refractometry automated 1.010 1.003 -1.030 [facility] pH of Urine by Automated test strip 8.0 5.0-8.0 [facility] Protein [Mass/volume] in Urine by Automated test strip Neg [facility] Glucose [Mass/volume] in Urine by Automated test strip Neg [facility] Ketones [Mass/volume] in Urine by Automated test strip Neg [facility] Bilirubin.total [Presence] in Urine by Automated test strip Negative [facility] Hemoglobin [Presence] in Urine by Automated test strip Neg [facility] Leukocyte esterase [Presence] in Urine by Automated test strip Negative [facility] Nitrite [Presence] in Urine by Automated test strip Negati ve [facility] Leukocytes [#/area] in Urine sediment by Automated count 0 /HPF 0 -5 [facility] Erythrocytes [#/area] in Urine sediment by Automated count 0 /HPF 0-3 [facility] ID Date Data Source [id number] 03/21/2021 11:24:35 PM [facility] Name Value Range Interpretation Code Description Data Marifer rce(s) Supporting Document(s) Amphetamine [Presence] in Urine by Screen method Negative [facility] Benzodiazepines [Presence] in Urine by Screen method Negat [facility] Cannabinoids [Presence] in Urine by Screen method Negative [facility] Benzoylecgonine [Presence] in Urine by Screen method [facility] Methadone [Presence] in Urine by Screen method Negative [facility] Opiates [Presence] in Urine by Screen method Negative [facility] Oxycodone [Presence] in Urine by Screen method Negative [facility] Fentanyl+Norfentanyl [Presence] in Urine by Screen method Negative [facility] Service comment [facility] Results below the indicated cutoff (ng/m L), are reported as"Negative." Note: for medical purposes only; not valid for legalor employment testing. ID Date Data Source [id number] 03/21/2021 11:16:07 PM T [facility] Name Value Range Interpretation Code Description Data Marifer rce(s) Supporting Document(s) ABO and Rh group [Type] in Blood [facility] Blood group antibody screen [Presence] in Serum or Plasma [facility] Blood bank comment [facility] ID Date Data Source [id number] 03/21/2021 11:43:24 PM T [facility] Name Value Range Interpretation Code Description Data Marifer rce(s) Supporting Document(s) Leukocytes [#/volume] in Blood by Automated count 6.2 10*3/uL 4-10 [facility] Erythrocytes [#/volume] in Blood by Automated count 4.97 10*6/uL 4.6- 6.1 [facility] Hemoglobin [Mass/volume] in Blood 14.6 g/dL 13.5-18 [facility] Hematocrit [Volume Fraction] of Blood by Automated count 44.0 % 4 1-53 [facility] Erythrocyte mean corpuscular volume [Entitic volume] by Auto mated count 88.5 fL 80-96 [facility] Erythrocyte mean corpuscular hemoglobin [Entitic mass] by Automated count 29.5 pg 27-33 [facility] Erythrocyte mean corpuscular hemoglobin concentration [Mass/volume] by Automated count 33.3 g/dL 32.0-36.0 [facility] Erythrocyte distribution width [Ratio] by Automated count 14.0 % 11.5-14.5 [facility] Platelets [#/volume] in Blood by Automated count 228 10*3/uL 150-400 [facility] Differential cell count method - Blood [facility] Neutrophils/100 leukocytes in Blood by Automated count 70 % [facility] Lymphocytes/100 leukocytes in Blood by Automated count 26 % [facility] Monocytes/100 leukocytes in Blood by Automated count 4 % [facility] Eosinophils/100 leukocytes in Blood by Automated count 0 % [facility] Basophils/100 leukocytes in Blood by Automated count 0 % [facility] Neutrophils [#/volume] in Blood by Automated count 4.33 10*3/uL 1.8-7 .0 [facility] Lymphocytes [#/volume] in Blood by Automated count 1.59 10*3/uL 1.2-4 .0 [facility] Monocytes [#/volume] in Blood by Automated count 0.23 10*3/uL 0-0.8 [facility] Eosinophils [#/volume] in Blood by Automated count 0.02 10*3/uL 0-0.5 [facility] Basophils [#/volume] in Blood by Automated count 0.01 10*3/uL 0-0.2 [facility] Nucleated erythrocytes/100 leukocytes [Ratio] in Blood by Automated count 0 /100{WBCs} 0-0 [facility] ID Date Data Source [id number] 03/21/2021 11:55:46 PM EDT [facility] Name Value Range Interpretation Code Description Data Marifer rce(s) Supporting Document(s) Acetaminophen [Mass/volume] in Serum or Plasma 10.0-30.0 L [facility] ID Date Data Source [id number] 03/21/2021 11:55:46 PM [facility] Value Range Interpretation Code Description Data Marifer rce(s) Supporting Document(s) Ethanol [Mass/volume] in Serum or Plasma Negative [facility] ID Date Data Source [id number] 03/21/2021 11:55:46 PM [facility] Value Range Interpretation Code Description Data Marifer rce(s) Supporting Document(s) Lipase [Enzymatic activity/volume] in Serum or Plasma 43 U/L 13-6 0 [facility] ID Date Data Source [id number] 03/21/2021 11:55:46 PM [facility] Value Range Interpretation Code Description Data Marifer rce(s) Supporting Document(s) Bicarbonate [Moles/volume] in Serum 27 mmol/L 22-29 [facility] Chloride [Moles/volume] in Serum or Plasma 103 mmol/L 98-107 [facility] Creatinine [Mass/volume] in Serum or Plasma 0.96 mg/dL 0.70-1.20 [facility] Glucose [Mass/volume] in Serum or Plasma 100 mg/dL 70-140 [facility] Potassium [Moles/volume] in Serum or Plasma 3.9 mmol/L 3.4-5.1 [facility] Sodium [Moles/volume] in Serum or Plasma 142 mmol/L 136-145 [facility] Urea nitrogen [Mass/volume] in Serum or Plasma 9 mg/dL 6-20 [facility] Anion gap 3 in Serum or Plasma 12 mmol/L 8-15 [facility] Osmolality of Serum or Plasma by calculation 293 mosm/kg 275-300 [facility] Creatinine/Urea nitrogen [Mass Ratio] in Serum or Plasma 9 [facility] Calcium [Mass/volume] in Serum or Plasma 9.8 mg/dL 8.6-10.0 [facility] Glomerular filtration rate/1.73 sq M pre dicted among non-blacks [Volume Rate/Area] in Serum or Plasma by Creatinine-based formula (MDRD) >6 0 [facility] Glomerular filtration rate/1.73 sq M pre dicted among blacks [Volume Rate/Area] in Serum or Plasma by Creatinine-based formula (MDRD) >60 [facility] ID Date Data Source [id number] 03/21/2021 11:55:46 PM [facility] Value Range Interpretation Code Description Data Marifer rce(s) Supporting Document(s) Salicylates [Mass/volume] in Serum or Plasma 3.0-30.0 L [facility] ID Date Data Source [id number] 03/21/2021 11:56:55 PM [facility] Value Range Interpretation Code Description Data Marifer rce(s) Supporting Document(s) Fibrinogen [Mass/volume] in Platelet poor plasma by Coagulat ion assay 283 mg/dl 190-450 [facility] ID Date Data Source [id number] 03/21/2021 11:56:55 PM [facility] Value Range Interpretation Code Description Data Marifer rce(s) Supporting Document(s) Prothrombin time (PT) 13.2 s 12.5-14.9 [facility] INR in Platelet poor plasma by Coagulation assay 0.99 [facility] Routine intensity oral anticoagulation I NR is typically 2.0-3.0. Target INR must be clinically individualized. ID Date Data Source [id number] 03/21/2021 11:56:55 PM [facility] Value Range Interpretation Code Description Data Marifer rce(s) Supporting Document(s) aPTT in Platelet poor plasma by Coagulation assay 27.0 s 24.0-33. 0 [facility] ID Date Data Source [id number] 03/22/2021 01:14:58 AM [facility] Value Range Interpretation Code Description Data Marifer rce(s) Supporting Document(s) Albumin [Mass/volume] in Serum or Plasma by Bromocresol green (BCG) dye binding method 5.4 g/dL 3.5-5.2 H [facility] Bilirubin.total [Mass/volume] in Serum or Plasma 0.6 mg/dL <1.2 [facility] Bilirubin.direct [Mass/volume] in Serum or Plasma <0.3 [facility] Alkaline phosphatase [Enzymatic activity/volume] in Serum or Plasma 78 U/L 40-129 [facility] Aspartate aminotransferase [Enzymatic activity/volume] in Serum or Plasma 34 U/L <40 [facility] Alanine aminotransferase [Enzymatic activity/volume] in Seru m or Plasma 39 U/L <41 [facility] Protein [Mass/volume] in Serum or Plasma 8.7 g/dL 6.4-8.3 H [facility] ID Date Data Source [id number] 03/11/2021 08:26:17 AM EDT [facility] Name Value Range Interpretation Code Description Data Marifer rce(s) Supporting Document(s) Discharge Summary [facility] JNLUNn6nSrUGOlQb25/KFVvdUJLoj9CeFHfaCQq8OTlpNPCrB5IdSXQ7qU8vQQC5HQkVXxNjAnUwNTMy [facility] [file] word processor/WmgjET0ce1CS3i8TK8D+1miJjBhk8O+OuVv2MrFJE+f3gbujxsFsjzuTNtl2E2TJVuS+s8Fg7kly [file] AgICAgICAgICAgICAgICAgICAgICAgICAgICAgICAg TTXmJSEyXLKkDSCpDMGfORGxOLFgZMVlEUQwBEXsKULjAKYgHG0AIAWeCONoDVIpGTGuUOWzZQCrFSCn ICAgICAgICAgICAgICAgICAgICAgICAgICAgICAgICAgICAgICAgICAgICAgICAgICAgICAgICAgICAg HVCaMHNrUXGrYVWbMJBkSGMpRS4WEAGlGDChGYOaVK AgICAgICAgICAgICAgICAgICAgICAgICAgICAgICAgICAgICAgICAgICAgICAgICAgICAgICAgICAgIC NyGEWwXCNnBJSfKCRrDGMlBPOfQVIvFMRfLHNrFJ4YYLNsXQFfJZFbVFLfIFRiVPFkKSKqHCWpHWRmSX AgICAgICAgICAgICAgICAgICAgICAgICAgICAgICAg RFPgWASxIMPzAIJrUXBiSWUlSRCoCJUbWAMmEXUcDKXmYIDyWKWdLG9YWUKpPQIuNUMjGQNzUYBuVWGv ICAgICAgICAgICAgICAgICAgICAgICAgICAgICAgICAgICAgICAgICAgICAgICAgICAgICAgICAgICAg GZHjQERbOWFuVXWgAKTkTMKaQCCoXC4EPWZxEORkOV AgICAgICAgICAgICAgICAgICAgICAgICAgICAgICAgICAgICAgICAgICAgICAgICAgICAgICAgICAgIC InWXBbKIJfGDAvFKPpCIMjYARhWNRoASLsTWWrDURjGW3TPCScYSEdILFoPSZeUCZoIQNvMRBcGPBwOG AgICAgICAgICAgICAgICAgICAgICAgICAgICAgICAg PSNtHADsGFJeTXTiDIVnOEKpONYdLWAoKSXvOGRbYRWpZSIkQMChZMWqCC0NMPLsFHPyYRXzURQsWVKt ICAgICAgICAgICAgICAgICAgICAgICAgICAgICAgICAgICAgICAgICAgICAgICAgICAgICAgICAgICAg WVHtFIGsWSJbQRWxDWKdYADxJOEgTPGhKJ6TVDVxVT AgICAgICAgICAgICAgICAgICAgICAgICAgICAgICAgICAgICAgICAgICAgICAgICAgICAgICAgICAgIC GwYSSiDKLjDNCwWXJbTUQiHXWnUAYuMPIjNWGzHVTpWMGyJX6CMXYxLORbJZRkYOLaKESnBMVaKZQjUR AgICAgICAgICAgICAgICAgICAgICAgICAgICAgICAg FNGzHQJvAJHqGOImECUiPAMqVYBbENSgYROmLKVrKBFpRWRaEJWeYTQjPDCeQY8ZEA69wDKws7E5YKDf LF4wjeb/Pb7UKPgmxtXcfFVnLQ8YQzTgZT1toj5PIvQzPE0wpx4LCFxMMfXgN2V7fKWbIGAjTGMPUhBm C85kCFxrFc91NAanQYPpTxKcNVp8Dx8RYmCvD9snEV QbQwB1RTDxBsR6WFRdOdQ1WTUrBqYaQEBvNGDnOLMiNEKVRCP3WUTeKfNtMuXoSQZhHOnuHIYBCPZrGR UiHqBqIUutUZ7Wt4ZnsGP1FOs+Sr7LIV1yu3YbTBz7FAOoPU1kpc0HFZjHHmGeW5KfooK9QJVcUTBpHj 2GAYFnJBEddCY6FMBhPNAHAkRbR5WigD13WVYOBy1+ JRqwmcPrMybXSzCxEFIal4TpPNe7KC7SZWGiANk9gVMpHYmfT2brzfngFMD5mE0uthwxNksvXEFiwq8a VYyyPRTSL4CeQX9fisMxMK9UCZF6UPZpYiSaTgEdBOLkLtedFaIGAQzAVtHyW8Oka5VdQjI4JIAmVaJt JCepPNDgLzO7LT53mKmhKS3MYKPoIUIgMH67VBL0PG BnSb7JCk9RQfKpUF6par9RQCLtLMBuNeeRDwa0LQtpLE5XkPBiX2DyvEHvx3sNCpSxB3AZWZE7XYNeTy 8LBIClCwTzWJNbBFiaKR2gOPGzRHZKxGumdeZ2HP6QFG5tewWpLM1TRzHpWm1mJz9RGoGfP2ZxG0BsRG WdTYTFCXimFW0XCYfnKS6gOV7Pn6CJqLQsaE2nts7J BPNwHVWmLdajht5DWengI7W9iSfeIHCqNSkgLPGYVOycMU4JUPQvJDR1SYU7XTEeGXMRJpSzA90pPA8Q Q1Fkl55gMzQ8MSTzEdOzSUsaKW65rPfxhkWtvHYhtMtmNB3IZk3+DQplbmRvYmoNCnhyZWYNCjAgNTIN YfFxVBRhWRGbEFRxHjY8CdPkJz3NGVMgKMTbYKPvOk CmDDJiRWIgSWtmYYKyRIV6KXseEPAjMRHuUK6LOxFhMRBdQAf7AwKbRHEaARUyob3VXZFcIFKeBBG3Aq GcMEYhQSMzDWjsQATrLTQ6Idd9ZXXiMYRiYE7QPeEbDFOjGCSgEXEmNPLsPWOili6WRLDeFCEiATl5JE KvOROcQUDnBGurCOCcRGN6ZQmqZDIzSGXeEZ9CPvSs NIZuLBMyBTVtTIEfJCGmsz9VIXWhTBAnAsMiLBDcMLRbTGSuVCkuKEGoVPT0WWU5OTYmBAOtBS2CBkTo SJXwOUQkZVYaTIEaWPJzzm6PIOAjVZReRVg5FnZiJYIbEIVqDFkmDGSbUKBjYXYdSAHnZIHkHF6RIwMh SLWsVhD4UnGwVKDpCSWecj8BDVOnTRVpVtb4WWXpEU AaFWXkOWjnCTIiXBQ8YMelSRLsVXQnIR3UAjWlUTBgYepkFOvgNZKyTKWwka3PUYIgFUIyPOY5StKwPK YmWKZzEFskGMIrUBTpOpZ7FLPbVWSaSA2KWpPsMJCiRqGfTAGqHOJsSZZumf3IAGYuAYRaSAL8BjPdOS BhMKJrBXcyAAJqXZZfLfD0EFKhUNDvGV3GZmYgESYo KdO0ZJRfMTUgDGXtwb9HPXDyPBFxVxtgCvVyXKNhZOExLFuhBLKtKPWmPkt7HFViEJDxNN8JEfLiPLZf MeE0JXliRNXbYVGrfz1YULYmVCYwNTW5XjErXMHpOLHjJSkpOPDyPKZ6BDN0XTQrWNOvXO8NCzJoLMYf ZbWpZwJuPTKoNGIpdp2VQJXiHLHwAGAyBvLyCRToRA ZeAHgzMILeXGU2Zfv0OIQdNGPjHD4SKoRkASSiPyE1HMXpYRNdPTOlic5HXYDoPLIxAjk4HYBmKQVpGK HmCBshMBHmQAZ5PXY3EVFxCEMaDT8WTkSmXJLdSGu0PcOyRRYxCPCvrj6JCUItKEY5MZP2PkRnXAWrJX QaJMjrJMJvKBS5NRRmODTyXLQqPP1BSvBwTADgZVtx TngoGGAiPQLeuo0QTJHtMJF3GozhAlMxWYRxDUNwEWukTIUaGZA5NpBqYOLnNMYiSR0XBnCpRHOyNOC4 LSIvXPLeJLDpjg1IDYDdDKM9RIZ5UlIzIIIhTLRgMWaoFFHrUHT7JPA5WYNkLYLfXJ6SPzIvVOPnOBI8 LHGwRLBlDYVete2QBCWcKKP7OGu3AOKyDXEwWQBzUZ jaZAGfRMH6UMC9JITmKXOwUE9VAoGoKKCySGM6InCzYRYmLAXkxi8RPVMaZJX0ACKbSVTxHEHuTFSjIG cpPLUbWZK0JKt2LZBmPXMaMC7BTfQuZKYsFLkdEWDkZUYpFFFvnq2QiGJfgXbvmx8JUGrVXp7ZxVlwFL FeVQikKr0pgDL0GGJeKJVZNf1IfpFlYKQkCRGDOTne HPBkIElcUPe1QMr7JJH1RHDfOrDkJ7KuXWEfSCIbBeYjHGR7LyU3MwEiTrZsEpqcTlWlWXIoYRA8JYK4 UdNoTaW3ZIF5AwI+AL7eMIi+Yo5Ee2MbxhL9wiSuQIm3VQA2ZM1UVBMGE8CRMp== ID Date Data Source [id number] 03/08/2021 08:09:11 AM EDT [facility] Name Value Range Interpretation Code Description Data Marifer rce(s) Supporting Document(s) Consultation [facility] RTIUGi3pVxLAHvIx05/JIUcyLZNym0FzWEqrNRh8HVvwVOLbH3IeNEL1uY1uGJU7CPeBAtUtAdVqHGHe lbm [file] ID Date Data Source [id number] 03/07/2021 03:50:37 PM EDT [facility] Name Value Range Interpretation Code Description Data Mairfer rce(s) Supporting Document(s) Consultation [facility] BIHBGw9oAxKOKvZu34/KWRyzYGBzi3YrQBawNTm2UOjaLGYqQ0FhAAP1pQ8jJTO1DLwKLvVcCvQuYCP4 lbm [file] voss+U6+/9N2/J+2y3/ymI9P0gU0y/Piluq5mKjIkdBY+UzQaYvwYyF6YYQfMyL3U/sd3M/PGHysa7skTL Snqeq+Yl2a8/iIIijHBD2ilX1rsfNxEWc2VYO6Evqs 2WV461vc4v3KF6iv7W3v2/b6HO/RuSjoH21LyC0yJvTkls1VZ+bMgVt8ebwmH0O9k29+m9wzM1uoWM2n 0C9jlKQC+br1W+Lk6JLC7t+P16RVPXjiTbb7ISl3qM4py5QE7mX1uDhB3+YG3kEYu9euriV0ooB12G30 zttqWQn1rUlp8xG+adi8XFzisadGdn0G5UQcpo2Epn wBjMd7gFeN9dMda8HBjfkiL64yi2I4I0u4Vi+E9dtFrakotNrx63h/hu/QGWaYLgnVn4vMzG57mo7o04 dT+0uzoMc/IJ+6+5B6zhoVpqJiL3tBJQqrpSKrTvFKM8P1r2RkiAHLpaBXBU3eIXTrRF89xVwNhmw4Pn 7g1jCw5C3EzFXYfDpD13sgKg+FfvIT+AFNh/8NUANr vlMpGx2ouKBhcc88lifzB2kdA6ylmJhad8Kk7Vdqj8jDRF3vw6wwhkTapJgAySR+MdLtstfvvK/A/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 [file] AgICAgICAgICAgICAgICAgICAgICAgICAgICAgICAgICAgICAgICAgICAgICAgICAgICAgICAgICAgIC AgICAgICAgICAgICAgICAgICAgICAgICAgICAgICAN CiAgICAgICAgICAgICAgICAgICAgICAgICAgICAgICAgICAgICAgICAgICAgICAgICAgICAgICAgICAg ICAgICAgICAgICAgICAgICAgICAgICAgICAgICAgICAgICAgICAgICANCiAgICAgICAgICAgICAgICAg ICAgICAgICAgICAgICAgICAgICAgICAgICAgICAgIC AgICAgICAgICAgICAgICAgICAgICAgICAgICAgICAgICAgICAgICAgICAgICAgICAgICANCiAgICAgIC AgICAgICAgICAgICAgICAgICAgICAgICAgICAgICAgICAgICAgICAgICAgICAgICAgICAgICAgICAgIC AgICAgICAgICAgICAgICAgICAgICAgICAgICAgICAg ICANCiAgICAgICAgICAgICAgICAgICAgICAgICAgICAgICAgICAgICAgICAgICAgICAgICAgICAgICAg ICAgICAgICAgICAgICAgICAgICAgICAgICAgICAgICAgICAgICAgICAgICANCiAgICAgICAgICAgICAg ICAgICAgICAgICAgICAgICAgICAgICAgICAgICAgIC AgICAgICAgICAgICAgICAgICAgICAgICAgICAgICAgICAgICAgICAgICAgICAgICAgICAgICANCiAgIC AgICAgICAgICAgICAgICAgICAgICAgICAgICAgICAgICAgICAgICAgICAgICAgICAgICAgICAgICAgIC AgICAgICAgICAgICAgICAgICAgICAgICAgICAgICAg ICAgICANCiAgICAgICAgICAgICAgICAgICAgICAgICAgICAgICAgICAgICAgICAgICAgICAgICAgICAg ICAgICAgICAgICAgICAgICAgICAgICAgICAgICAgICAgICAgICAgICAgICAgICANCiAgICAgICAgICAg ICAgICAgICAgICAgICAgICAgICAgICAgICAgICAgIC AgICAgICAgICAgICAgICAgICAgICAgICAgICAgICAgICAgICAgICAgICAgICAgICAgICAgICAgICANCi AgICAgICAgICAgICAgICAgICAgICAgICAgICAgICAgICAgICAgICAgICAgICAgICAgICAgICAgICAgIC AgICAgICAgICAgICAgICAgICAgICAgICAgICAgICAg ICAgICAgICANCjw/vRCxT8xknOAoqrY3A8cdRa0ETf7NBW1ci4HoCMKfGLmvckKaMigUYsNkFUZrGyqJ Llg8KObvFS0FgXKiT5FuQ2TrBUmyGA5LAGCsLLUcoGYaRFYtISWwWsK9KARmNHjnFQ0PwAUoPKnrPYVt PCBhEeZqPHShHSGpQTPdEMKcVFHWND4AWeSvD1LndW 67DEMVEk5+PCphznGyNriBGaPfURPdh5WrJBa7BS3TPEMnVlasw0NtKgLmXRSKDRcoCV9OPJA0MOUwLA RgBn6BADLjQ463pdTgHM8CLj7CDaFsDN5gav9JLbGvGIIdUsmRIga6FTgfNR6NyKWiZDuMx79naZb1kp ThaTOSEHWulMASVTG4XVOqwIZqEYuYL0fuMQOyJF3v KT9xFEYvYBRqWsPcPLJGPE6KWMQfTDPviEUsFGQfJKOCNW0SGExbGWD6HHTmxhQwiLMdDXqxGG4CVVIi bnQgMzEgMCBSDQo+Eo4ZGJ8si1FyKNwnHiVnDH5pnq7HGMkGEiApD0V2kJCnY9N1RMihMd7CYQHwJUQp FgjyEDRUKExePX7ODK9ixjT2WI6DxRSiBEGuFCHxeH DtXRx5O62qsLKpVZrfPG6OCVR+Jayla+Gr7NFGRdTJGbPCGkYwEsIIMSUjYzY6WgN3RGl4MtV0RhFE58sE bzsxGxPCczDP5FPM5yLPZnGJDAHN7RvGFsoD0xcwBuQTVjRGQEOhLtR17puPXoKIYzYGTpCBVkCi7ZZF TnD0LlpcGboPbyerZpDQNzABJCKH8YPAjoqxXlyOTo fYvmYE77kSpqQN5PQr9GFkUnDG2dhc2LwBDlEn2NHABhOF3IHXSsHGStHEPnZCQ3ADJhXzGdXHbjXIXv XTTgWZW5ATIsBMEqZY8CXjBoQFTdMdG1YjQrFQXeCUWmjd5NCVIwKHQvVqU1QvFaCHBfTOUjXLuqXUQw RICyAVL6GTFjPRLsRG6CCrPhITJhKBR6SYUaMEWfPL Lbvh6HGXIqQXZqEVZtFDSnLICpFHYnHRdaBJCcPPM4BKphCKEqPFRrXY4ZVeVnQQFgWRfwVdhpUUZbLW Zcnx3RGDMdIDZyDYT4BgVcGJHeQGYzDGrtSNMpWSWtDBtfGNWmBNEvHW4ABtHpXWOtSKK0MwxxAGCkWR Bwnn7OGWIjBMVmPpxsSWAnESJnQFUkDMmjGJTbVCK0 BUx6YUFfZEDzLA3UHbWzFZLzNJVoCVPsUBGtZXIyiw8WWVVzEWShXVA8HTVsQWUoJBBrFFjrFCTgXGJ1 DsEkXLXxUQHdGO7VMuKvVWYlYUC9IvRaXFHfVAAsmt6BUYHvDTCoBiHhVnKwJVAzBPFvKMpxODUeSZB0 RAidMHRyEMNrQX3MIvIaQDRiZGf7LHBqBTXtDTWsok 0ZLCVpBEXfEeu9QpEnDXPgKQClVUwuLPSaLVE1KBUxHJAtHDDwFG0LKkCeCSGqSRgdOthxLBVgFDKadv 7XZJSyRCUiEHMlLxZrEGTnFEVvNVjyXLQuJIZwOub1QCElZSRhNX4KKuVgKYGnKtPoPDEeYEMyULMvbi 0KMDAwMDAzMTIyNCAwMDAwMCBuDQowMDAwMDMxNDYz YAXpWQTbCO5EHsAfLDFnPhL0SBbyWKRyYKGcnm9ZKYVvHFVyIqH1YfTgRQGyQQNiCFynMKRtRLHwWZy7 PZAbJWIuQF8YYoJsQGQfGiK4GlZzRNTzKQUxsb9IMTVePBLfVrnlZzUtKMBjECWvKXw5rjBuoOGaRXa4 TO8LV1BmhnUbBcRTHu0Mn786XGUtAVRhOc2YQ2yrQu 9uILVhAINBTq5FIPu8Grs5SLU5EkF2ZFa8VnNeJSN3UNG1ExCuF3QsG2T0ETV+LFf6FmQ6WtfkHFC9DK saMWYvQGbzPVcqZBGdOqOoHOAgDI6tCZVGOx0+HSidxQCuiEpbBGZDTvUkBOXdHMhlKNJLZx9G ID Date Data Source [id number] 03/07/2021 12:55:08 PM EDT [facility] Name Value Range Interpretation Code Description Data Marifer rce(s) Supporting Document(s) History and Physical [facility] YUSAXs6rVmDWPmNu58/MLOdeQGDax3ZjOExfLUo5UBnkGWTeF6TdVSB1nJ3mDGQ6WWmJTlKpCeIeCHS2 lbm [file] AgICAgICAgICAgICAgICAgICAgICAgICAgICAgICAg ICAgICAgICAgICAgICAgICAgICAgICAgICAgICAgICAgICAgICAgICAgDQogICAgICAgICAgICAgICAg ICAgICAgICAgICAgICAgICAgICAgICAgICAgICAgICAgICAgICAgICAgICAgICAgICAgICAgICAgICAg ICAgICAgICAgICAgICAgICAgICAgICAgDQogICAgIC AgICAgICAgICAgICAgICAgICAgICAgICAgICAgICAgICAgICAgICAgICAgICAgICAgICAgICAgICAgIC AgICAgICAgICAgICAgICAgICAgICAgICAgICAgICAgICAgDQogICAgICAgICAgICAgICAgICAgICAgIC AgICAgICAgICAgICAgICAgICAgICAgICAgICAgICAg ICAgICAgICAgICAgICAgICAgICAgICAgICAgICAgICAgICAgICAgICAgICAgDQogICAgICAgICAgICAg ICAgICAgICAgICAgICAgICAgICAgICAgICAgICAgICAgICAgICAgICAgICAgICAgICAgICAgICAgICAg ICAgICAgICAgICAgICAgICAgICAgICAgICAgDQogIC AgICAgICAgICAgICAgICAgICAgICAgICAgICAgICAgICAgICAgICAgICAgICAgICAgICAgICAgICAgIC AgICAgICAgICAgICAgICAgICAgICAgICAgICAgICAgICAgICAgDQogICAgICAgICAgICAgICAgICAgIC AgICAgICAgICAgICAgICAgICAgICAgICAgICAgICAg ICAgICAgICAgICAgICAgICAgICAgICAgICAgICAgICAgICAgICAgICAgICAgICAgDQogICAgICAgICAg ICAgICAgICAgICAgICAgICAgICAgICAgICAgICAgICAgICAgICAgICAgICAgICAgICAgICAgICAgICAg ICAgICAgICAgICAgICAgICAgICAgICAgICAgICAgDQ ogICAgICAgICAgICAgICAgICAgICAgICAgICAgICAgICAgICAgICAgICAgICAgICAgICAgICAgICAgIC AgICAgICAgICAgICAgICAgICAgICAgICAgICAgICAgICAgICAgICAgDQogICAgICAgICAgICAgICAgIC AgICAgICAgICAgICAgICAgICAgICAgICAgICAgICAg XJUsMYBbBAZjBPGwOPLqKPInVENnUMSoBOZyRIFbFUUlOMGuADViUSLvDTTrDTCgXZYiNKo2N3kkEANf IRToJF9fROy6Pe5+ZGjERcQxXMK9nrYfpR7IPO6vg7ZqAJtkSKIff5NcPQj0OU3DZGWeGExmEA7SZCrq rp2LXQXiDNQigFLGn0uiDyPcNEQ5YEMfSkfdWK6GNQ QjA0rvauXjWLYjGRHWSYuiVVFKPLcuNELJZBTaMPZxXcFjFpLmRPKmCFVxZTXXJCJ9WMXrYkNbWKGdGY YnFQ4XOWYuK013arWlEM3ALn4EEoBtZE2bsb4TGCWuDOWlNuhCTld8FZljHI9DoIVpmJT8RFAnWURBIh ZjL4qwe5RiAWLhNAFWXIqiSK6Cv6ZmbBOoGZd+Pg0K RO1uo1GwHOp7XAAuBU6glv7WUJtCBdMcU1WitOafXAtcWCGknKNIdWHbERSLDA3xY3bjzHNcEM0XEYM2 JCPjNwqnEnCkYFOeNDr5ZyLXKNgDYcEqX7Esi7HfKxS2AQZbXiVxVFxrUKXmLyV9UW08gZvwVV8FDYHb FCRfWZ54GKUzNQWcMr3JHv4GHgNrBR7fcr3YYUKdOA KkIsvIAvn1YWmjGN5DgDQlR3ChnLXez9fHAyVfL8YFTVOyQHXcFw5BTHMfMoXjXUYkTAabWE3wXMAlWV GOjUeurpX7PJ2VTA9udwJhFG9KIdNxHu4qJe3NRsWcK9JrS8LwQADzZSYXDTqjYG4OVJapYY1cUC6Ml7 MMhNLaeP8llj6MSTEyGMFxFctyvh5XVnbcU0W6kYer IBZfEEPaBBIJNWntEQ5VNYGjOIB3ZVX1UwDgFMWIIbYiI33uRE9HL3Tzo98cMmI1YGCrMvHmIKtlFM64 vTelokYmeXUjqUcjOH6WGh8+KGcgwbQlVstBYwpbIZCTNnNwYHVPCtDaULEkDBYrQPNkSnV2WeAoWt8F DDPuZDXlXSIzCbSfAZCkCUXlVJsxQMGrGZJ6UAQ2AZ QqYOTxHS0UNjQbBHDmKNeuVaPrOBZcORIgrf2VYYDjAVTsOWY9ShMbZRJhMEFsICdgXIAkCISuGQe2CX KdWNOwVE8GEqCdGVOiZWOxUHppCSHuDCDifj8UXQSpJBLfTqcrLlDpJUScFQCsWPfqNMNqGHI5GBA2QG IpVVYlOP7WKdCvSKAjNNCnIEwmZOJkFNDffs3VVJSf RINpEVScTjClSTTrTOUoYRliPZKsPBL6BrG8FHIuOXVhIZ6VTbZoLVAmXKR6GeFtFIPxAWDmfx1RGZRv WYUkMVC9OkOqQFLvDSPuHOnwCEPdTQP5Jgn2TWJvGMVaUG1YZtRyTFDbHdA8SGWiQEWwBBMxdg5DBMHh STUbHgU2RyJbHFMqLWGsCAppKKUyONX7PpL7QBPvNU BpUZ1TBiJvNBPgXyH3JqLeHAVlFZXftl1ZEVPfMISfCIWfEQMwZDZdOKYkUZamRLDhOOI4OkU6GJHdQZ TeJO9GOxPgEHLpNdt6NuFiQTKhNWWijb8NVBJyZUHaCAq9FqGnODCfNFJyCEvjDUSiDQVsBBF6XPWuPP GwLW9IMtTyEDMpXbMlVWPxNEVtNWWhug9IGXUeWTUy KCDzOkZjGFNqXFRqBOtvITUiFOMkQLN0JYDmCTTsGB7UKlQxESHdOfWrGbZbHKTvZQKfat1PROVzMLFy IdZ6TvBhLCWwPEFmNPjpTDNvZZRaBfQ6KPUoSCMvBF5ZHzZrXZGvTtZ2SYSpRUDcYJOdet0LWSDyFQIn CyusAgJlIYVpKRUiKFgrPORiUXR6YQc4HPEvHJYdEI 5URvPpOSFnCoNsERKbNJXuQKYsaw4NBGZjSBPiNRD8LXPaRYIsCJZrHTblWMIvKSX3XYD6ERUvCPJgZJ 2DWwCaJBAkEDW2SSMtSDQhZUTlkb5HPTKqTPO7JgIoVJJuNVXvUKGnLNosADRbPVL3ZECaVAVtYSHeBP 7EWoTbUIVgRCy1XtbcBHHeJZWxtz4OFBZhFLW5Mmxn MNKdSPIoYVDcFBviGMFrYFXcAiuoKAJqJUHwSV9LPsCqJDGmOGP3AYXnSHEtSXQofb1RMFLvTZJ1FxBd UGZwTDEbSQBaAWiyJMDvQPVaWDM1APDtFXQtNE6DFcOkPQLrRZE1HVztJNUgKUQdcv5PMKFnGEG9Ghtg PYOgYMMgPUCwFUzqOMNsKVG9XJB4ZMHjZRRtVW1CRn BhPZBaFRXfVBZvJZLvRWGuxe6AVXWnSRP4YJC1CYOsHZNdXGUnMYmjLVDkPJT1JlZcAQGxRBKfJX9KLo BkGTYdBVC6MrVzIZGzAVNypc8WCJCfYHQ6ZcEnYcVmLRAePUFgVKxuMIEmBZL9NKE6HVGlAVQnBL6XQc PzCRCbFDs3AtpnFILwBOAayy4GSWXrLLK6GoevAyHt PKIiDIIuTIn3wnMbqWEcHTo3FQ3CJ9FinsYoKVJRJf3Fs874GGY7JMRfMp8JG6lcVy2oUNPvZPJSOm9X QJd0ZpRdNEpnN1NyGKX7SEr8DvJfBZPgPwC8QkDzN8MpOOJ+UHvxZiB3EOTwFwF6QAvlQod6TuS8APEa MqjbVsV8NkSgYB2rHVFHYc7+OFupzAVvlVhdLGAHRzL3LQCrXIxtSWSWFx2L ID Date Data Source [id number] 03/07/2021 08:12:05 AM EDT [facility] Name Value Range Interpretation Code Description Data Marifer rce(s) Supporting Document(s) Color of Urine [facility] Clarity of Urine [facility] Specific gravity of Urine by Refractometry automated 1.011 1.003 -1.030 [facility] pH of Urine by Automated test strip 6.0 5.0-8.0 [facility] Protein [Mass/volume] in Urine by Automated test strip Neg [facility] Glucose [Mass/volume] in Urine by Automated test strip Neg [facility] Ketones [Mass/volume] in Urine by Automated test strip Neg [facility] Bilirubin.total [Presence] in Urine by Automated test strip Negative [facility] Hemoglobin [Presence] in Urine by Automated test strip Neg [facility] Leukocyte esterase [Presence] in Urine by Automated test strip Negative [facility] Nitrite [Presence] in Urine by Automated test strip Negati [facility] Leukocytes [#/area] in Urine sediment by Automated count 0 /HPF 0 -5 [facility] Erythrocytes [#/area] in Urine sediment by Automated count 0 /HPF 0-3 [facility] ID Date Data Source [id number] 03/07/2021 08:16:16 AM [facility] Name Value Range Interpretation Code Description Data Marifer rce(s) Supporting Document(s) Calcidiol [Mass/volume] in Serum or Plasma 22 ng/mL >30 L [facility] ID Date Data Source [id number] 03/07/2021 08:02:55 AM [facility] Name Value Range Interpretation Code Description Data Marifer rce(s) Supporting Document(s) Cholesterol [Mass/volume] in Serum or Plasma 137 mg/dL <200 [facility] Triglyceride [Mass/volume] in Serum or Plasma 73 mg/dL <150 [facility] Cholesterol in HDL [Mass/volume] in Serum or Plasma 40 mg/dL >40 L [facility] Cholesterol in LDL [Mass/volume] in Serum or Plasma by calcu lation 82 mg/dL <100 [facility] Cholesterol in VLDL [Mass/volume] in Serum or Plasma by calc ulation 15 mg/dl 16-42 L [facility] Cholesterol non HDL [Mass/volume] in Serum or Plasma 97 mg/dL <130 [facility] ID Date Data Source [id number] 03/07/2021 07:37:25 AM [facility] Name Value Range Interpretation Code Description Data Marifer rce(s) Supporting Document(s) Hemoglobin A1c/Hemoglobin.total in Blood by HPLC 5.0 % 4.0-6.0 [facility] (NOTE)<5.7% Average risk of diabetes (ADA)5.7-6.4% Increased risk of diabetes(ADA)>/= 6.5% Diagnostic for diabetes(ADA) Glucose mean value [Mass/volume] in Blood Estimated fr om glycated hemoglobin 97 mg/dL <126 [facility] ID Date Data Source [id number] 03/06/2021 06:21:00 PM EDT [facility] Name Value Range Interpretation Code Description Data Marifer rce(s) Supporting Document(s) SARS coronavirus 2 RNA [Presence] in Res piratory specimen by LENNOX with probe detection NEGATIVE [facility] This lab was ordered by [facility] a nd reported by [facility]. ID Date Data Source [id number] 02/25/2021 11:33:00 AM EDT [facility] Name Value Range Interpretation Code Description Data Marifer rce(s) Supporting Document(s) SARS coronavirus 2 RNA Not Detected [facility] This lab was ordered by [facility] and reported by [facility]. ID Date Data Source [id number] 02/18/2021 08:59:00 [place] [address] PHONE: [phone] FAX: [phone] Name .................. : LIDIAINDIGO Rivera Acct Number.................. : [id number] ROOM. ................. : [facility] Number ................... : [id number] Stay type ............. : E/R Discharge Date......... ... : 02/15/21 Admit Date ......... : 02/15/21 Admit Phys .................... : LETICIA Burleson Date of ....... : 1990 Family Phys ................... : NON STAFF Phone .................. : [phone] Age ................................ : 30 Film# .................. .:[id number] Sex ................................. : M Unsigned transcriptions are preliminary reports and do not represent a medical or legal document RENAL COMPLETE [id number] COMPLETE:02/15/21 15:10 GS 8359 Reason(s): flank pain [...] [address] 2 [place] [address] PHONE: [phone] FAX: [phone] Name .................. : TOSIN Rivera Acct Number.................. : [id number] ROOM. ................. : [address] Number ................... : [id number] Stay type ............. : E/R Discharge Date......... ... : 02/15/21 Admit Date ......... : 02/15/21 Admit Phys .................... : LETICIA Burleson Date of ....... : 1990 Family Phys ................... : NON STAFF Phone .................. : [phone] Age ................................ : 30 Film# .................. .:[id number] Sex ................................. : M Unsigned transcriptions are preliminary reports and do not represent a medical or legal document RENAL COMPLETE [id number] COMPLETE:02/15/21 15:10 GSP 8359 Reason(s): flank pain DISCHARGED Page 2 of 2 Name Value Range Interpretation Code Description Data Marifer rce(s) Supporting Document(s) ID Date Data Source [id number] 02/15/2021 11:50:00 AM EDT [facility] 1 OrderSheet [facility] Emergency Department [address] [place] [address] Phone #: ext- [phone] 02/15/2021 11:45 Patient: [...] rce(s) Supporting Document(s) ID Date Data Source [id number] 02/15/2021 11:50:00 AM EDT [facility] 1 Medication Reconciliation Report [facility] Emergency Department [address] [place] [address] Phone #: ext- [phone] 02/15/2021 11:45 Patient: [...] mg), 3x a day, prn Pregnyl Intramuscular (34372 unit), 3x a week risperiDONE Oral (1 mg), 2x a day traZODone HCl Oral (50 mg), daily Trolamine Salicylate External Xolair Subcutaneous (150 mg) 300mg, 3x a week Zofran Oral 4 mg, 3x a day, prnThe source(s) of the original Home Medication information: 2 Medication Reconciliation Report [facility] Emergency Department [address] [place] [address] Phone #: ext- [phone] 02/15/2021 11:45 Patient: MARVIN LEAHY Sex: M : 1990 Age: 30yNot obtained.The following Medications were given to the patient in the Emergency Department:Toradol [IVP] IVP 30 mg, administered: 12:35 02/15/2021The following Medications were prescribed to the patient:None. Name Value Range Interpretation Code Description Data Marifer rce(s) Supporting Document(s) ID Date Data Source [id number] 02/15/2021 11:50:00 AM EDT [facility] 1 Medication Administration Record [facility] Emergency Department [address] [place] [address] Phone #: ext- [phone] 02/15/2021 11:45 Patient: MARVIN LEAHY Sex: M : 1990 Age: 30yWeight: 92.9 kgHeight/Length: 68 inBMI: 31.1ALLERGIES: None, Seafood Date/Time Medication Administered Medication OrderedGiven TORADOL [IVP] (KETOROLAC Toradol IVP 30 mg (NOW x1)12:35 02/15/2021 TROMETHAMINE)Harry Garza RN Dose: 30 mg IVP Site: #1 left Name Value Range Interpretation Code Description Data Marifer rce(s) Supporting Document(s) ID Date Data Source [id number] 02/15/2021 11:50:00 AM EDT [facility] 1 General Instructions [facility] Emergency Department [address] [place] [address] Phone #: ext [phone] 02/15/2021 11:45 Patient: MARVIN LEAHY Sex: M : 1990 Age: 30yLeft renal colic with hematuria.INSTRUCTIONSWarnings: GENERAL WARNINGS: Return or contact your physician immediately if your conditionworsens or changes unexpectedly, if not improving as expected, or if other problems arise.Understanding of the discharge instructions verbalized by patient.Follow- up with: [facility] Respective Team Dale [place], , , [address], , [place], [address] Follow up in three days if not well.Follow-up with: Benito Willett M.D., Urology, , [address] [place] [address], [address] Follow up in three days if not better. Call for an appointment. ADDITIONAL INFORMATIONBlood in the Urine 2 General Instructions [facility] Emergency Department [address] [place] [address] Phone #: ext- [phone] 02/15/2021 11:45 Patient: [...] using these medicines.Follow-up care 3 General Instructions [facility] Emergency Department [address] [place] [address] Phone #: ext- [phone] 02/15/2021 11:45 Patient: [...] the nose or gums or easy bruising [phone] [employer]. [address] [place] [address]. All rights reserved. This information is not intended as asubstitute for professional medical care. Always follow your healthcare professional's instructions. You have been given the following additional information: Hematuria(Electronically signed by Carter Small 02/15/2021 16:56) Name Value Range Interpretation Code Description Data Marifer rce(s) Supporting Document(s) ID Date Data Source [id number] 02/15/2021 11:50:00 AM EDT [facility] 1 Clinical Report - Nurses [facility] Emergency Department [address] [place] [address] Phone #: ext- [phone] 02/15/2021 11:45 Patient: [...] of Morphine IM. [facility] and he is planning on having the stent removed in 2 weeks. However, pt does notthink he can wait until then.). 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 Pregnyl Intramuscular (Solution Reconstituted 86353 unit), 3x a week. risperiDONE Oral (Tablet Disintegrating 1 mg), 2x a day. traZODone HCl Oral (Tablet 50 mg), daily. Trolamine Salicylate External. 2 Clinical Report - Nurses [facility] Emergency Department [address] [place] [address] Phone #: ext- [phone] 02/15/2021 11:45 Patient: [...] on patient. --11:55 02/15/21 Elzbieta Billingsley R.N.PHYSICAL ZIIVELCSAT36:23 02/15/21. To room via stretcher.GENERAL / NEURO / PSYCH: Alert. Oriented X 4. Appears in pain. 3 Clinical Report - Nurses [facility] Emergency Department [address] [place] [address] Phone #: ext- [phone] 02/15/2021 11:45 Patient: MARVIN LEAHY Sex: M [...] to sonogram by wheelchair with mask and radiology receptionist. (1244). --12:46 02/15/21 Harry Garza RN Patient returned from sonogram by wheelchair with mask and radiology receptionist. (1310). --13:10 02/15/21 Harry Garza RN 13:13 [...] Patient verbalized understanding. Written instructions provided in Finnish. The patient was discharged home and accompanied by side guider. He left ambulatory and via private vehicle. Household Manager driving. --14:49 02/15/21 Michelle Rowland R.N. 14:48 02/15/21. BP: 130/68. MAP: 88. HR: 70. RR: 18. O2 saturation: 99%. Temp: 98 F. Pain level now: 03/18. --14:49 02/15/21 Michelle Rowland R.N. Departure time: 14:49 02/15/2021. --15:19 02/15/21 Harry Garza RN 14:40 02/15/2021 Site #1 removed upon discharge. Catheter intact. Bandaid applied. --15:20 02/15/21 Harry Garza RN. 4 Clinical Report - Nurses [facility] Emergency Department [address] [place] [address] Phone #: ext- [phone] 02/15/2021 11:45 Patient: MARVIN LEAHY Sex: M : 1990 Age: 30yLocked/Released at 02/15/2021 17:19 by Harry Garza RN Name Value Range Interpretation Code Description Data Marifer rce(s) Supporting Document(s) ID Date Data Source [id number] 02/15/2021 11:50:00 AM EDT [facility] 1 Clinical Report - Physicians/Mid Levels [facility] Emergency Department [address] [place] [address] Phone #: ext- [phone] 02/15/2021 11:45 Patient: [...] needed. 2 Clinical Report - Physicians/Mid Levels [facility] Emergency Department [address] [place] [address] Phone #: ext- [phone] 02/15/2021 11:45 Patient: MARVIN LEAHY Sex: M [...] 2x a day. Pregnyl Intramuscular (Solution Reconstituted 26514 unit), 3x a week. risperiDONE Oral (Tablet [...] EKG 3 Clinical Report - Physicians/Mid Levels [facility] Emergency Department [address] [place] [address] Phone #: ext- [phone] 02/15/2021 11:45 Patient: MARVIN LEAHY Sex: M : 1990 Age: 30y Laboratory Tests: US RENAL COMPLETE: (DERRICK: 02/15/2021 12:31) ( [facility] 02/15/2021 15:10) In Progress US RENAL COMPLETE Reason(s): flank pain TRANSPORTATION: S IV? IV?(No) O2? Oxygen?(No) Kamila Urinalysis: (DERRICK: 02/15/2021 12:15) ( [facility] 02/15/2021 13:23) Final results Test Result Flag [...] hematuria.INSTRUCTIONS 4 Clinical Report - Physicians/Mid Levels [facility] Emergency Department [address] [place] [address] Phone #: ext- [phone] 02/15/2021 11:45 Patient: MARVIN LEAHY Sex: M : 1990 Age: 30y Warnings: GENERAL WARNINGS: Return or contact your physician immediately if your condition worsens or changes unexpectedly, if not improving as expected, or if other problems arise. Understanding of the discharge instructions verbalized by patient. Follow-up with: [facility] Respective Team Dale [place], , , [address] [facility] [address], , [place], [address] Follow up in three days if not well. Follow-up with: Benito Willett M.D., Urology, , [address] [place] [address], [address] Follow up in three days if not better. Call for an appointment.(Electronically signed by Carter Small 02/15/2021 16:56) Name Value Range Interpretation Code Description Data [facility] Campuse(s) Supporting Document(s) ID Date Data Source [id number] 02/15/2021 11:50:00 AM EDT [facility] Addenda for MARVIN LEAHY VisitID: [id number] Date: 16:11called to lobby by shell machine operator, pt is refusing to leave, promotion writer went and spoke to pt, pt states he wants to beadmitted because something is wrong, Dr Small informed. Called security system administrator weapons specialist no answer, joe, called Sandeep Dixon and informed of situation and he recommended calling the police, policecalled and awaiting their arrival.(Electronically signed by Michelle Rowland R.N. - 02/15/2021 16:11) Name Value Range Interpretation Code Description Data Marifer rce(s) Supporting Document(s) ID Date Data Source [id number] 02/15/2021 01:22:00 PM EDT [facility] Name Value Range Interpretation Code Description Data [facility] rc(s) Supporting Document(s) URINALYSIS [facility] NORMAL: Yellow [facility] CLARITY clear NORMAL: Clear [facility] Specific gravity of Urine by Test strip 1.020 1.001 - 1.030 [facility] pH 8 5 - 9 [facility] Glucose [Mass/volume] in Urine by Test strip NORM NORMAL: Negat [facility] Bilirubin.total [Presence] in Urine by Test strip NEG NORMAL: Negative [facility] Ketones [Presence] in Urine by Test strip NEG NORMAL: Negative [facility] Protein [Mass/volume] in Urine by Test strip NEG NORMAL: Negat [facility] Nitrite [Presence] in Urine by Test strip NEG NORMAL: Negative [facility] BLOOD 250 NORMAL: Negative [facility] Leukocyte esterase [Presence] in Urine by Test strip 100 LLUVIA L: Negative [facility] Urobilinogen [Mass/volume] in Urine by Test strip NOR less fidelia n 1.0 mg/dL [facility] MICROSCOPIC See Below [facility] WBC 1 - 3 NORMAL: NONE SEEN [facility] Erythrocytes [#/volume] in Urine by Test strip 3 - 5 NORMAL: NON E SEEN [facility] ID Date Data Source [id number] 01/11/2021 02:18:00 [place] [address] OPERATIVE SUMMARYNAME: TOSIN Rivera DATE OF : 1990ATTENDING PHYS: BENITO WILLETT MD DATE: 01/11/21 MR#: [id number] OF PROCEDURE: 01/11/2021RE- OPERATIVE DIAGNOSIS: 1. Left flank pain. 2. Gross hematuria. 3. History of kidney stones.POST-OPERATIVE DIAGNOSIS: 1. Left flank pain. 2. Gross hematuria. 3. History of kidney stones. 4. Left proximal urethra/UPJ stricture.PROCEDURE PERFORMED: 1. Cystoscopy with bilateral retrograde pyelograms. 2. Left ureteroscopy. 3. Placement of left ureteral stent.ATTENDING SURGEON: Dr. Benito Willett.PHYSICIAN LEGAL COORDINATOR: PERLA Sky.ANESTHESIA: Monitored anesthesia care.ESTIMATED BLOOD LOSS: Minimal.COMPLICATIONS: None.DRAINS: 7 x 24 JJ ureteral stent.DISPOSITION: To the Ambulatory Surgical Unit.CONDITION: Stable.INTRAOPERATIVE FINDINGS:Dense obstructive stricture of the proximal left ureter with hydronephrosis.INDICATIONS FOR PROCEDURE: [address] [place] [address] OPERATIVE SUMMARYNAME: TOSIN Rivera DATE OF : 1990ATTENDING PHYS: BENITO WILLETT MD DATE: 01/11/21 MR#: [id number] Tosin is a 30-year-old gentleman who had [...] were carried out, cystourethroscopy using a 22 Norwegian cystoscope mounted on a 30degree lens was [...] were no complications.Copies of this report to [facility]. [address] [place] [address] OPERATIVE SUMMARYNAME: TOSIN Rivera DATE OF : 1990ATTENDING PHYS: BENITO WILLETT MD DATE: 01/11/21 MR#: [id number]: BENITO WILLETT MD 01/11/21 13:30DT: SANTO 01/11/21 14:04DS: BENITO WILLETT MD 02/12/21 10:59 3 Name Value Range Interpretation Code Description Data Marifer rce(s) Supporting Document(s) ID Date Data Source [id number] 02/12/2021 09:25:00 AM EDT [facility] ([facility]) Name Value Range Interpretation Code Description Data Marifer rce(s) Supporting Document(s) Appearance of Urine Laboratory test result [facility] ([facility]) Color of Urine Laboratory test result [facility] ([facility]) pH of Urine by Test strip 8 5-9 [facility] ([facility]) Spec [place] 1.010 1.001-1.030 [facility] ([facility]) Protein [Presence] in Urine by Test strip Laboratory test result [facility] ([facility]) Leukocytes Laboratory test result [facility] ([facility]) Nitrate [Presence] in Urine Laboratory test result [facility] ([facility]) Inhouse Glucose Laboratory test result [facility] ([facility]) Ketones [Presence] in Urine by Test strip Laboratory test result [facility] ([facility]) Bilirubin.total [Presence] in Urine by Test strip Laboratory test res ult [facility] ([facility]) Urobilinogen Laboratory test result [facility] ([facility]) Blood type and Indirect antibody screen panel - Blood 250 Above high normal [facility] ([facility]) ID Date Data Source [id number] 02/05/2021 03:38:00 PM EDT [facility] ([facility]) Name Value Range Interpretation Code Description Data Marifer rce(s) Supporting Document(s) Fibrin D-dimer [Presence] in Platelet poor plasma Laboratory test result 0.27-0.50 [facility] ([facility]) Is patient fasting? N ID Date Data Source [id number] 02/05/2021 03:38:00 PM EDT [facility] ([facility]) Name Value Range Interpretation Code Description Data Marifer rce(s) Supporting Document(s) Basic Metabolic Pane Laboratory test result [facility] ([facility]) Is patient fasting? N Sodium 141 meq/L 134-153 [facility] ([facility]) Is patient fasting? N Potassium 3.8 meq/L 3.6-5.0 [facility] ([facility]) Is patient fasting? N Chloride 105 meq/L 98-107 [facility] ([facility]) Is patient fasting? N Co2 27 meq/L 22-30 [facility]) Is patient fasting? N Glucose 87 mg/dL 70-99 [facility] ([facility]) Is patient fasting? N BUN 9 mg/dL 7-21 [facility] ([facility]) Is patient fasting? N BUN/Creat 10 8-27 [facility] ([facility]) Is patient fasting? N Creatinine 0.9 mg/dL 0.7-1.5 [facility] ([facility]) Is patient fasting? N Calcium 9.7 mg/dL 8.4-10.2 [facility] ([facility]) Is patient fasting? N Anion Gap 9.0 mmol/L 8.0-16.0 [facility] ([facility]) Is patient fasting? N Afr Amer GFR Laboratory test result [facility] ([facility]) Is patient fasting? N Age 30 yrs [facility] ([facility]) Is patient fasting? N Non-Aa GFR Laboratory test result [facility] ([facility]) Is patient fasting? N ID Date Data Source [id number] 02/05/2021 03:38:00 PM EDT [facility] ([facility]) Name Value Range Interpretation Code Description Data Marifer rce(s) Supporting Document(s) Protime 13.0 s 11.0-15.5 [facility] ([facility]) Is patient fasting? N PTT 29.1 s 24.8-36.7 [facility] ([facility]) Is patient fasting? N Inr 0.94 0.93-1.23 [facility] ([facility]) Is patient fasting? N ID Date Data Source [id number] 02/05/2021 03:38:00 PM EDT [facility] ([facility]) Name Value Range Interpretation Code Description Data Marifer rce(s) Supporting Document(s) CBC No Diff Laboratory test result [facility] ([facility]) Is patient fasting? N WBC 5.8 10^3/uL 4.2-11.0 [facility] ([facility]) Is patient fasting? N Hemoglobin 13.7 g/dL 14.0-16.0 Below low normal [facility] ( [facility]) Is patient fasting? N RBC 4.67 10^6/uL 4.50-6.30 [facility] ([facility]) Is patient fasting? N Hematocrit 41.3 % 41.0-51.0 [facility] ([facility]) Is patient fasting? N MCV 88.4 fL 80.0-94.0 [facility] ([facility]) Is patient fasting? N MCH 29.3 pg 27.0-34.0 [facility] ([facility]) Is patient fasting? N MCHC 33.2 g/dL 31.0-36.0 [facility] ([facility]) Is patient fasting? N Platelets 220 10^3/uL 150-450 [facility] ([facility]) Is patient fasting? N RDW 12.3 % 11.5-14.8 [facility] ([facility]) Is patient fasting? N MPV 10.4 fL 7.4-10.4 [facility] ([facility]) Is patient fasting? N ID Date Data Source [id number] 02/05/2021 03:38:00 PM EDT [facility] ([facility]) Name Value Range Interpretation Code Description Data Marifer rce(s) Supporting Document(s) Dilute ProthrombinTime(dPT) 35.7 sec 0.0-55.0 [facility] ([facility]) Is patient fasting? N dPT Confirm Ratio 1.12 Ratio 0.00-1.40 [facility] ([facility]) Is patient fasting? N Thrombin Time 20.5 sec 0.0-23.0 [facility] ([facility]) Is patient fasting? N dRVVT 35.6 sec 0.0-47.0 [facility] ([facility]) Is patient fasting? N PTT-LA 32.9 sec 0.0-51.9 [facility] ([facility]) Is patient fasting? N Lupus ReflexInterpretation Laboratory test result [facility] ([facility]) Is patient fasting? N ID Date Data Source [id number] 02/05/2021 03:38:00 PM EDT [facility] ([facility]) Name Value Range Interpretation Code Description Data Marifer rce(s) Supporting Document(s) F2 gene c.62402N>A [Presence] in Blood or Tissue by Mo lecular genetics method Laboratory test result [facility] ([facility]) Is patient fasting? N ID Date Data Source [id number] 02/05/2021 03:38:00 PM EDT [facility] ([facility]) Name Value Range Interpretation Code Description Data Marifer rce(s) Supporting Document(s) Factor V Leiden Laboratory test result [facility] ([facility]) Is patient fasting? N ID Date Data Source [id number] 02/05/2021 03:38:00 PM EDT [facility] ([facility]) Name Value Range Interpretation Code Description Data Marifer rce(s) Supporting Document(s) Anticardiolipin Ab,IgG,Qn Laboratory test result 0-14 [facility] ([facility]) Is patient fasting? N Anticardiolipin Ab,IgM,Qn Laboratory test result 0-12 [facility] ([facility]) Is patient fasting? N Anticardiolipin Ab,IgA,Qn Laboratory test result 0-11 [facility] ([facility]) Is patient fasting? N ID Date Data Source [id number] 02/05/2021 03:38:00 PM EDT [facility] ([facility]) Name Value Range Interpretation Code Description Data Marifer rce(s) Supporting Document(s) Antithrombin Activity 93 % 75-135 [facility] ( [facility]) Is patient fasting? N Antithrombin Antigen 85 % 72-124 [facility] ([facility]) Is patient fasting? N ID Date Data Source [id number] 02/05/2021 03:38:00 PM EDT [facility] ([facility]) Name Value Range Interpretation Code Description Data Marifer rce(s) Supporting Document(s) Protein C Antigen 126 % 60-150 [facility] ([facility]) Is patient fasting? N Protein S, Free 117 % 57-157 [facility] ([facility]) Is patient fasting? N Protein S, Total 69 % 60-150 [facility] ([facility]) Is patient fasting? N ID Date Data Source [id number] 02/12/2021 02:26:00 PM EDT [facility] Name Value Range Interpretation Code Description Data Marifer rce(s) Supporting Document(s) F2 gene mutations found [Identifier] in Blood or Tissue by Molecular genetics method [facility]inal [facility].Comment:A point mutation ([id number]) in the factor II (prothrombin) gene is thesecond most common cause of inherited thrombophilia. The incidence ofthis mutation in the [place] population is about 2% and in theAfrican Sudanese population it is approximately 0.5%. This mutation [...] individual mutations.This assay detects only the prothrombin I09569P mutation and doesnot measure genetic abnormalities elsewhere in the genome. Otherthrombotic risk factors may be pursued through systematic clinicallaboratory analysis. These factors include the R506Q (Leiden)mutation in the Factor V gene, plasma homocysteine levels, as wellas testing for deficiencies of antithrombin III, protein C andprotein S.Genetic Counselors are available for health care providersto discuss results at [phone] ([phone]).Methodology:DNA analysis of the Factor II gene was performed by PCRamplification followed by restriction analysis. Thediagnostic sensitivity is >99% for both. All the tests mustbe combined with clinical information for the most accurateinterpretation. Molecular-based testing is highly accurate,but as in any laboratory test, diagnostic errors may occur.This test was developed and its performance characteristicsdetermined by [facility]. It has not been cleared or approvedby the Food and Drug Administration.Poort SR, et al. Blood. 1996; 88:4608-8315.Rohan LEON. Circulation. 2004; 110:e15-e18.Akash Sotelo et al. Arterioscler Thromb Vasc Biol. 1999;19:700-703.Cristiano Barney, PhD, Anastasia Roca, PhD, FACMGW. Johana Vogel, PhD, Minnie Allred, PhD, Edmar Marrero, PhD, FACAndre Escamilla, PhD, FACMG ID Date Data Source [id number] 02/11/2021 01:55:00 PM EDT [facility] Name Value Range Interpretation Code Description Data Marifer rce(s) Supporting Document(s) F5 gene mutations found [Identifier] in Blood or Tissue by Molecular genetics method Nominal COMMENT [facility] l Result: Negative (no mutation found)Fac tor [...] in the workup for venous thrombosis include [id number] mutation in the factor II (prothrombin) gene,protein S and C deficiency, and antithrombin deficiencies.Anticardiolipin antibody and lupus anticoagulant analysismay be appropriate for certain patients, as well ashomocysteine levels.Contact your local [facility] for information on how to orderadditional testing if desired.Genetic counselors are available for health care providers to discuss results at [phone] ([phone]).Methodology:DNA analysis of the Factor V gene was performed by allele-specificPCR. The diagnostic sensitivity and specificity is >99% for both.Molecular-based testing is highly accurate, but as in any laboratorytest, diagnostic errors may occur. All test results must be combinedwith clinical information for the most accurate interpretation.This test was developed and its performance characteristics determinedby [facility]. It has not been cleared or approved by the Food and DrugAdministration.References:Gabo Cruz (1995). Clin Lab Med 16:169- 186.Cristiano Barney, PhD, FACMonika Roca, PhD, FACMGW. Johana Vogel, PhD, Minnie Allred, PhD, KURTMGSteve Marrero, PhD, KURTMGDale Escamilla PhD, FACMG ID Date Data Source [id number] 02/08/2021 08:09:00 PM EDT [facility] Name Value Range Interpretation Code Description Data Marifer rce(s) Supporting Document(s) Protein C Ag actual/normal in Platelet poor plasma by Immuno logic method 126 % 60-150 [facility] Protein S Ag actual/normal in Platelet poor plasma by Immuno logic method 69 % 60-150 [facility] This test was developed and its performa nce characteristicsdetermined by [facility]. It has not been cleared or approvedby the Food and Drug Administration. Protein S Free Ag actual/normal in Platelet poor plasm a by Immunologic method 117 % 57-157 [facility] This test was developed and its performa nce characteristicsdetermined by [facility]. It has not been cleared or approvedby the Food and Drug Administration. ID Date Data Source [id number] 02/08/2021 08:06:00 PM EDT [facility] Name Value Range Interpretation Code Description Data Marifer rce(s) Supporting Document(s) aPTT.lupus sensitive W excess phospholip id actual/Normal (normalized LA confirm) 35.7 sec 0.0-55.0 [facility] aPTT.lupus sensitive/aPTT.lupus sensitiv e W excess phospholipid (screen to confirm ratio) 1.12 [facility] 0.00-1.40 [facility].5 sec 0.0-23.0 [facility] Ho spital aPTT.lupus sensitive (LA screen) 32.9 sec 0.0-51.9 [facility] dRVVT (LA screen) 35.6 sec 0.0-47.0 [facility] Lupus anticoagulant two screening tests W Reflex [interpretation] C omment: [facility] No lupus anticoagulant was detected. ID Date Data Source [id number] 02/08/2021 02:42:00 PM EDT [facility] Name Value Range Interpretation Code Description Data Marifer rce(s) Supporting Document(s) Antithrombin actual/normal in Platelet poor plasma by Chromo genic method 93 % 75-135 [facility] Direct Xa inhibitor anticoagulants such as rivaroxaban, apixaban andedoxaban will lead to spuriously elevated antithrombin activitylevels possibly masking a deficiency. Antithrombin Ag actual/normal in Platelet poor plasma by Immunologic method 85 % 72-124 [facility] This test was developed and its performa nce characteristicsdetermined by [facility]. It has not been cleared or approvedby the Food and Drug Administration. ID Date Data Source [id number] 02/08/2021 07:51:00 AM EDT [facility] Name Value Range Interpretation Code Description Data Marifer rce(s) Supporting Document(s) Cardiolipin IgG Ab [Units/volume] in Serum by Immunoassay <9 GPL U/mL 0-14 [facility] Negative: <15 Indeterminate: 15 - 20 Low-Med Positive: >20 - 80 High Positive: >80 Cardiolipin IgM Ab [Units/volume] in Serum by Immunoassay <9 MPL U/mL 0-12 [facility] Negative: <13 Indeterminate: 13 - 20 Low-Med Positive: >20 - 80 High Positive: >80 Cardiolipin IgA Ab [Units/volume] in Serum by Immunoassay <9 APL U/mL 0-11 [facility] Negative: <12 Indeterminate: 12 - 20 Low-Med Positive: >20 - 80 High Positive: >80 ID Date Data Source [id number] 02/05/2021 04:31:00 PM EDT [facility] Name Value Range Interpretation Code Description Data Marifer rce(s) Supporting Document(s) CBC NO DIFF [facility] COMPLETE BLOOD COUNT Leukocytes [#/volume] in Blood by Automated count 5.8 10^3/uL 4.2 - 1 1.0 [facility] Erythrocytes [#/volume] in Blood by Automated count 4.67 10^6/uL 4. 50 - 6.30 [facility] Hemoglobin [Mass/volume] in Blood 13.7 g/dL 14.0 - 16.0 L [facility] Hematocrit [Volume Fraction] of Blood by Automated count 41.3 % 4 1.0 - 51.0 [facility] Erythrocyte mean corpuscular volume [Entitic volume] by Auto mated count 88.4 fL 80.0 - 94.0 [facility] Erythrocyte mean corpuscular hemoglobin [Entitic mass] by Automated count 29.3 pg 27.0 - 34.0 [facility] Erythrocyte mean corpuscular hemoglobin concentration [Mass/volume] by Automated count 33.2 g/dL 31.0 - 36.0 [facility] Erythrocyte distribution width [Ratio] by Automated count 12.3 % 11.5 - 14.8 [facility] Platelets [#/volume] in Blood by Automated count 220 10^3/uL 150 - 45 0 [facility] Platelet mean volume [Entitic volume] in Blood by Automated count 10.4 fL 7.4 - 10.4 [facility] ID Date Data Source [id number] 02/05/2021 04:31:00 PM EDT [facility] Name Value Range Interpretation Code Description Data Marifer rce(s) Supporting Document(s) Fibrin D-dimer FEU [Mass/volume] in Platelet poor plasma <0. 27 ug/mL 0.27 - 0.50 [facility] ID Date Data Source [id number] 02/05/2021 04:31:00 PM EDT [facility] Name Value Range Interpretation Code Description Data Marifer rce(s) Supporting Document(s) Prothrombin time (PT) 13.0 SECONDS 11.0 - 15.5 [facility] INR in Platelet poor plasma by Coagulation assay 0.94 0.93 - 1. 23 [facility] aPTT in Blood by Coagulation assay 29.1 SECONDS 24.8 - 36.7 [facility] \\BLDo\\INR INTERPRETATION\\BLDx\\ Therapeutic range for Coumadin and related oral anticoagulants. - International Normalized Ratio (INR): 2.0 - 3.0 for Venous Thrombosis, Pulmonary Embolus, Tissue heart valves, Acute [place] Atrial Fibrillation, Valvular heart disease and recurrent Systemic Embolism. - International Normalized Ratio (INR): 2.5 - 3.5 for Mechanical Prosthetic valve. ID Date Data Source [id number] 02/05/2021 04:31:00 PM EDT [facility] Name Value Range Interpretation Code Description Data Marifer rce(s) Supporting Document(s) BASIC METABOLIC PANEL [facility] BASIC METABOLIC PANEL Sodium [Moles/volume] in Serum or Plasma 141 mEq/L 134 - 153 [facility] Potassium [Moles/volume] in Serum or Plasma 3.8 mEq/L 3.6 - 5.0 [facility] Chloride [Moles/volume] in Serum or Plasma 105 mEq/L 98 - 107 [facility] Carbon dioxide, total [Moles/volume] in Serum or Plasma 27 MEQ/L 22 - 30 [facility] Glucose [Mass/volume] in Serum or Plasma 87 MG/DL 70 - 99 [facility] BUN 9 MG/DL 7 - 21 [facility] al Creatinine [Mass/volume] in Serum or Plasma 0.9 MG/DL 0.7 - 1.5 [facility] BUN/CREAT 10 8 - 27 [facility] Calcium [Mass/volume] in Serum or Plasma 9.7 MG/DL 8.4 - 10.2 [facility] Anion gap 3 in Serum or Plasma 9.0 mmol/L 8.0 - 16.0 [facility] AGE 30 yrs [facility] al AFR AMER GFR >60 mL/min [facility] Ho spital NON-AA GFR >60 mL/min [facility] ital Male GFR Inter prentation 20-49 [...] >32 mL/min Normal ID Date Data Source [id number] 01/23/2021 08:00:00 AM EDT [facility] ([facility]) Name Value Range Interpretation Code Description Data Marifer rce(s) Supporting Document(s) Color of Urine Laboratory test result [facility] ([facility]) Appearance of Urine Laboratory test result [facility] ([facility]) Spec [place] 1.015 1.001-1.030 [facility] ([facility]) Leukocytes Laboratory test result [facility] ([facility]) pH of Urine by Test strip 5 5-9 MEDE NT ([facility]) Nitrate [Presence] in Urine Laboratory test result [facility] ([facility]) Protein [Presence] in Urine by Test strip Laboratory test result [facility] ([facility]) Ketones [Presence] in Urine by Test strip Laboratory test result [facility] ([facility]) Inhouse Glucose Laboratory test result [facility] ([facility]) Urobilinogen Laboratory test result [facility] ([facility]) Blood type and Indirect antibody screen panel - Blood 250 Above high normal [facility] ([facility]) Bilirubin.total [Presence] in Urine by Test strip Laboratory test res ult [facility] ([facility]) ID Date Data Source [id number] 01/22/2021 09:08:00 AM EDT [facility] [address] [place] [address] PHONE: [phone] FAX: [phone] Name .................. : LILIANEBENEZER ADDISONEW Nicole Acct Number.................. : [id number] ROOM. ................. : TR-06 Number ................... : [id number] Stay type ............. : E/R Discharge Date......... ... : 01/18/21 Admit Date ......... : 01/18/21 Admit Phys .................... : LETICIA Burleson Date of ....... : 1990 Family Phys ................... : NON STAFF Phone .................. : [phone] Age ................................ : 30 Film# .................. .:[id number] Sex ................................. : M Unsigned transcriptions are preliminary reports and do not represent a medical or legal document ABDOMEN 1 VIEW [id number] COMPLETE:01/18/21 17:29 JOLLY 6172 Reason(s): Abdominal Pain [...] By Marlon Decker MD , 01/22/21 09:08, [facility] Transcribe Initials: GAYATHRI , Transcribe Date: 01/19/21 00:49, Dictation Date: Copy for: GRAYSON GONZALEZ via fax Copy for: [address] [place] [address] DISCHARGED Page 1 of 1 Name Value Range Interpretation Code Description Data Marifer rce(s) Supporting Document(s) ID Date Data Source [id number] 01/18/2021 01:23:00 PM EST [facility] 1 OrderSheet [facility] Emergency Department [address] [place] [address] Phone #: [phone] jzs- [id number] 01/18/2021 13:22 Patient: MARVIN LEAHY Sex: M [...] Harry Garza RN (17:29 01/18/2021)] 2 OrderSheet [facility] Emergency Department [address] [place] [address] Phone #: ext- [phone] 01/18/2021 13:22 Patient: MARVIN LEAHY Sex: M : 1990 Age: 30y[Electronically signed by Larry Moreno (21:10 01/19/2021)][Electronically locked by Harry Garza RN (17:29 01/18/2021)] Name Value Range Interpretation Code Description Data Marifer rce(s) Supporting Document(s) ID Date Data Source [id number] 01/18/2021 01:23:00 PM EST [facility] 1 Medication Reconciliation Report [facility] Emergency Department [address] [place] [address] Phone #: ext- [phone] 01/18/2021 13:22 Patient: [...] (500 mg), 2x a day Pregnyl Intramuscular (53104 unit), 3x a week risperiDONE Oral (1 mg), 2x a day traZODone HCl Oral (50 mg), daily Trolamine Salicylate External Xolair Subcutaneous (150 mg) 300mg, 3x a week Zofran Oral 4 mg, 3x a day, prnThe source(s) of the original Home Medication information: 2 M edication Reconciliation Report [facility] Emergency Department [address] [place] [address] Phone #: ext- [phone] 01/18/2021 13:22 Patient: [...] - Stop Eliquis, Take with Food or Milk.[facility] [address] [place] [address] [id number]. .ondansetron 8 mg disintegrating tablet Take 1 tablet three times a day for 5 days -- Dispense 15 tablet.Refills: 0. Substitution permitted. Note to Pharmacy - stopped Eliqu is.Pharmacy [facility] [address] [place] [address] [phone]. . -- PERLA Cisse Name Value Range Interpretation Code Description Data Marifer rce(s) Supporting Document(s) ID Date Data Source [id number] 01/18/2021 01:23:00 PM EST [facility] 1 Medication Administration Record [facility] Emergency Department [address] [place] [address] Phone #: ext- [phone] 01/18/2021 13:22 Patient: MARVIN LEAHY Sex: M : 1990 Age: 30yWeight: 92.9 kgHeight/Length: 68 inBMI: 31.1ALLERGIES: None, SeafoodDate/Time Medication Administered Medication Ordered Name Value Range Interpretation Code Description Data [place](s) Supporting Document(s) ID Date Data Source [id number] 01/18/2021 01:23:00 PM EST [facility] 1 General Instructions [facility] Emergency Department [address] [place] [address] Phone #: ext- [phone] 01/18/2021 13:22 Patient: MARVIN LEHAY Sex: M : 1990 Age: 30yAcute left upper quadrant and left lower quadrant abdominal pain. (s/o Left UPJ Stent).INSTRUCTIONS(Discussed Eliquis with Dr Bhatt, Hem/Onc at [facility] and pt can discontinue Eliquis and take [...] 2x a day.Pregnyl Intramuscular : Solution Reconstituted 53226 unit, 3x a week.risperiDONE Oral : Tablet [...] Eliquis, Take with Food or Milk.Pharmacy - [facility] [address] [place], [place] [id number]. .ondansetron 8 mg disintegrating tablet Take 1 tablet three times a day for 5 days -- Dispense 15 tablet.Refills: 0. Substitution permitted. Note to Pharmacy - stopped Eliquis.Pharmacy - [facility] [address] [place], [place] [id number]. Phone: [phone] General Instructions [facility] Emergency Department [address] [place] [address] Phone #: ext- [phone] 01/18/2021 13:22 Patient: MARVIN LEAHY Sex: M : 1990 Age: 17b042- 0150 .Follow-up:Follow up with your doctor Thursday [...] options include broth, soup, 3 General Instructions [facility] Emergency Department [address] [place] [address] Phone #: ext- [phone] 01/18/2021 13:22 Patient: [...] chest, arm, back, neck or jaw pain 9223-0095 [employer]. [address] [place] [address], [place] [address]. All rights reserved. This information is not intended as asubstitute for professional medical care. Always follow your healthcare professional's instructions. You have been given the following additional information: Unknown Causes of Abdominal Pain (Male)(Electronically signed by PERLA Cisse 01/19/2021 21:10) Name Value Range Interpretation Code Description Data Marifer rce(s) Supporting Document(s) ID Date Data Source [id number] 01/18/2021 01:23:00 PM EST [facility] 1 Clinical Report - Nurses [facility] Emergency Department [address] [place] [address] Phone #: [phone] [id number]- [id number] 01/18/2021 13:22 Patient: MARVIN LEAHY Sex: M : 1990 Age: 30yTRIAGEArrived by EMS. Historian: patient. Unaccompanied. ( ureter STENT PLACED BY OBEN LASTFRIDAY, left abd pain started this am, pt states he has bloody urine, states he has been having troublevoiding and it has not gotten any better since the procedure).Acuity: LEVEL 3.Chief Complaint: ABDOMINAL PAIN and VOMITING.Alert.This started today.Treatment MANUFACTURING QUALITY INSPECTOR:(fentanyl (EMS) and hydrocodone 0900).SEPSIS SCREEN: SIRS SCREEN [...] 2x a day. Pregnyl Intramuscular (Solution Reconstituted 87633 unit), 3x a week. risperiDONE Oral (Tablet [...] Rowland R.N. 2 Clinical Report - Nurses [facility] Emergency Department [address] [place] [address] Phone #: ext- [phone] 01/18/2021 13:22 Patient: [...] integrity risk 3 Clinical Report - Nurses [facility] Emergency Department [address] [place] [address] Phone #: ext- [phone] 01/18/2021 13:22 [id number] Sex: M : 1990 Age: 30y identified. --13:28 01/18/21 Micehlle Rowland R.N. Interventions Identification band on patient. To treatment room. --13:28 01/18/21 Michelle Rowland R.N. No allergy band on patient. --13:31 01/18/21 Harry Garza RN.PHYSICAL [id number]:32 01/18/21. To room via stretcher.GENERAL / NEURO [...] patient confirmed. Blood samples drawn by tech. (2600). --13:54 01/18/21 Harry Garza RN ( 1350 pt refusing Zofran and Toradol P A notified). --13:55 01/18/21 Harry Garza RN 14:00 01/18/21. BP: 157/87. MAP: 110. HR: 88. RR: 16. O2 saturation: 99%. --14:00 01/18/[address] [facility] Tech, Verónica, ER Tech1 Patient transported to radiology by wheelchair with mask and radiology receptionist. (4489). --14:30 01/18/21 Harry Garza RN Correction --14:31 01/18/21 Harry Garza RN ( 9113 Dr Romero in to see pt). --14:32 01/18/21 Harry Garza RN Patient transported to radiology by stretcher with tech. --14:43 01/18/21 Michelle Rowland R.N. Patient transported by stretcher with mask. ([address] Romero). Patient returned from radiology by stretcher with mask and radiology receptionist. (9254). --14:45 01/18/21 Harry Garza RN 14:58 01/18/21. BP: 138/83. MAP: 101. HR: 76. RR: 16. O2 saturation: 99%. --14:58 01/18/21 [place] pretzel cooker, Verónica, ER Tech1.DISPOSITION / DISCHARGE 15:35 01/18/21. Departure time: 15:35 01/18/2021. Condition at departure: improved. No learning barriers present. 4 Clinical Report - Nurses [facility] Emergency Department [address] [place] [address] Phone #: ext- [phone] 01/18/2021 13:22 Patient: MARVIN LEAHY Sex: M : 1990 Age: 30y Discharge instructions provided and reviewed with the patient. Reviewed warnings (stop Eliquis start motrin 800 mg). Reviewed medication(s) side effect s, precautions, dosing and course information. Prescription(s) sent electronically to pharmacy. Reviewed referral to a urologist. Provided to follow-up provider. Patient verbalized understanding. Written instructions provided in Finnish. The patient was discharged by the physician veterinary assistant technician. He was discharged home. He left ambulatory [...] rce(s) Supporting Document(s) ID Date Data Source [id number] 01/18/2021 01:23:00 PM [facility] 1 Clinical Report - Physicians/Mid Levels [facility] Emergency Department [address] [place] [address] Phone #: ext- [phone] 01/18/2021 13:22 Patient: [...] needed. 2 Clinical Report - Physicians/Mid Levels [facility] Emergency Department [address] [place] [address] Phone #: ext- [phone] 01/18/2021 13:22 Patient: MARVIN LEAHY Sex: M : 1990 Age: 30y Memetasone furoate 15mg , 4x a day. Methocarbamol Oral (Tablet 500 mg), 2x a day. Pregnyl Intramuscular (Solution Reconstituted 42234 unit), 3x a week. risperiDONE Oral (Tablet [...] COUNT 3 Clinical Report - Physicians/Mid Levels [facility] Emergency Department [address] [place] [address] Phone #: ext- [phone] 01/18/2021 13:22 Patient: MARVIN LEAHY Sex: M [...] Male GFR Interprentation 20-49 yrs >60 mL/min Jzchoz19-74 yrs >56 mL/min Normal 60-69 yrs >49 mL/min Normal 70-79yrs>42 mL/min Normal 80 and above >35 mL/min Normal Female GFRInterpretation 20-39 yrs >60 mL/min Normal 40-49 yrs >58 mL/min 4 Clinical Report - Physicians/Mid Levels [facility] Emergency Department [address] [place] [address] Phone #: ext- [phone] 01/18/2021 13:22 Patient: [...] I talked to Dr Nithin Castle/Onc at [facility] and we will stop his Eliquis and [...] (Discussed Eliquis with Dr Bhatt, Hem/Onc at [facility] and pt can discontinue Eliquis and take [...] a day. Pregnyl Intramuscular : Solution Reconstituted 24085 unit, 3x a week. risperiDONE Oral : Tablet Disintegrating 1 mg, 2x a day. traZODone HCl Oral : Tablet 50 mg, daily. 5 Clinical Report - Physicians/Mid Levels [facility] Emergency Department [address] [place] [address] Phone #: ext- [phone] 01/18/2021 13:22 Patient: [...] Stop Eliquis, Take with Food or Milk. [facility] [address] [place] [address] ; [place], [place] [id number]. . ondansetron 8 mg disintegrating tablet Take 1 tablet three times a day for 5 days -- Dispense 15 tablet. Refills: 0. Substitution permitted. Note to Pharmacy - stopped Eliquis. [facility] [address] [facility] ; [place], [place] [id number]. . Follow- up: Follow up with your doctor Thursday even if well. Call for an appointment. Reason for referral: evaluation and treatment. Summary of care provided to patient. Understanding of the discharge instructions verbalized by patient.(Electronically signed by PERLA Cisse 01/19/2021 21:10) Name Value Range Interpretation Code Description Data Marifer rce(s) Supporting Document(s) ID Date Data Source [id number] 01/23/2021 07:12:00 AM EDT [facility] Name Value Range Interpretation Code Description Data Marifer rce(s) Supporting Document(s) CULTURE URINE [facility] spital _CULTURE URINE_$$[id number]$$[id number]$$163813$$687109$$839030$$001111$$909750$$938389$$992428$$ 141671$$372338$$247942$$764558$$075062$$206492$$483856$$300274$$813151$$526641$$ 074541$$162676$$833583$$016699$$985389$$568407$$802807$$732418 -- Continued on next page --Patient: TOSIN Rivera Order: [id number] Page 2Culture: CULTURE URINE Status: Final ====$$[id number]$$[id number] DATE/TIME: 01/22/2021 19:05Culture: CULTURE URINE Status: FinalUrine Culture,Comprehensive: P1No growth in 36 - 48 hours.P1 Test performed by: [facility] [place] #: [id number] [facility], [facility] [address] [id number] [facility] [id number] Director : Steve Prater MD NPI #:Director Compensation : 01/23/21.0712.XMT.SENT REF ID Date Data Source [id number] 01/18/2021 03:59:00 PM EST [facility] Name Value Range Interpretation Code Description Data Marifer rce(s) Supporting Document(s) URINALYSIS [facility] albin URINALYSIS SOURCE R [facility] COLOR brown NORMAL: Yellow [facility] CLARITY clear NORMAL: Clear [facility] Specific gravity of Urine by Test strip 1.015 1.001 - 1.030 [facility] pH 8 5 - 9 [facility] Glucose [Mass/volume] in Urine by Test strip NORM NORMAL: Negat xiomara [facility] Bilirubin.total [Presence] in Urine by Test strip NEG NORMAL: Negative [facility] Ketones [Presence] in Urine by Test strip 5 NORMAL: Negative [facility] Protein [Mass/volume] in Urine by Test strip 100 NORMAL: Negat xiomara [facility] Nitrite [Presence] in Urine by Test strip NEG NORMAL: Negative [facility] BLOOD 250 NORMAL: Negative [facility] Leukocyte esterase [Presence] in Urine by Test strip 100 LLUVIA L: Negative [facility] Urobilinogen [Mass/volume] in Urine by Test strip NOR less fidelia n 1.0 mg/dL [facility] MICROSCOPIC See Below [facility] WBC 15 - 20 NORMAL: NONE SEEN A [facility] Erythrocytes [#/volume] in Urine by Test strip TNTC NORMAL: NON E SEEN A [facility] ID Date Data Source [id number] 01/18/2021 02:56:00 PM EST [facility] Name Value Range Interpretation Code Description Data Marifer rce(s) Supporting Document(s) CBC W/AUTOMATED DIFF [facility] COMPLETE BLOOD COUNT Leukocytes [#/volume] in Blood by Automated count 5.2 10^3/uL 4.2 - 1 1.0 [facility] Erythrocytes [#/volume] in Blood by Automated count 4.81 10^6/uL 4. 50 - 6.30 [facility] Hemoglobin [Mass/volume] in Blood 14.5 g/dL 14.0 - 16.0 [facility] Hematocrit [Volume Fraction] of Blood by Automated count 42.3 % 4 1.0 - 51.0 [facility] Erythrocyte mean corpuscular volume [Entitic volume] by Auto mated count 87.9 fL 80.0 - 94.0 [facility] Erythrocyte mean corpuscular hemoglobin [Entitic mass] by Automated count 30.1 pg 27.0 - 34.0 [facility] Erythrocyte mean corpuscular hemoglobin concentration [Mass/volume] by Automated count 34.3 g/dL 31.0 - 36.0 [facility] Erythrocyte distribution width [Ratio] by Automated count 12.1 % 11.5 - 14.8 [facility] Platelets [#/volume] in Blood by Automated count 196 10^3/uL 150 - 45 0 [facility] Platelet mean volume [Entitic volume] in Blood by Automated count 11.0 fL 7.4 - 10.4 H [facility] Neutrophils/100 leukocytes in Blood by Automated count 51.1 % 37. 0 - 80.0 [facility] Lymphocytes/100 leukocytes in Blood by Manual count 37.3 % 25.0 - 40.0 [facility] Monocytes/100 leukocytes in Blood by Automated count 8.5 % 3.0 - 8.0 H [facility] Eosinophils/100 leukocytes in Blood by Automated count 2.5 % 0.0 - 7.0 [facility] Basophils/100 leukocytes in Blood by Automated count 0.4 % 0.0 - 2.0 [facility] %IG 0.2 % 0.0 - 0.[address] [facility] %NRBC 0.0 % 0.0 - 0.0 [facility] Neutrophils [#/volume] in Blood by Automated count 2.65 10^3/uL 2.00 - 6.90 [facility] Lymphocytes [#/volume] in Blood by Automated count 1.93 10^3/uL 0.60 - 3.40 [facility] Monocytes [#/volume] in Blood by Automated count 0.44 10^3/uL 0.00 - 0.90 [facility] Eosinophils [#/volume] in Blood by Automated count 0.13 10^3/uL 0.00 - 0.70 [facility] Basophils [#/volume] in Blood by Automated count 0.02 10^3/uL 0.00 - 0.20 [facility] #IG 0.01 10^3/uL 0.00 - 0.10 [facility] #NRBC 0.00 10^3/uL 0.00 - 0.00 [facility] ospital MANUAL DIFF SEE BELOW [facility] Segmented neutrophils/100 leukocytes in Blood by Manual count 44 % 37 - 80 [facility] %LYMPH 39 % 25 - 40 [facility] %MONO 13 % 3 - 8 H [facility] al %EOS 4 % 0 - 7 [facility] al RBC MORPH NOT INDICATED [facility] ID Date Data Source [id number] 01/18/2021 02:47:00 PM EST [facility] Name Value Range Interpretation Code Description Data Marifer rce(s) Supporting Document(s) COMPREHENSIVE METABOLIC PANEL [facility] COMPREHENSIVE METABOLIC PANEL Sodium [Moles/volume] in Serum or Plasma 136 mEq/L 134 - 153 [facility] Potassium [Moles/volume] in Serum or Plasma 3.7 mEq/L 3.6 - 5.0 [facility] Chloride [Moles/volume] in Serum or Plasma 103 mEq/L 98 - 107 [facility] Carbon dioxide, total [Moles/volume] in Serum or Plasma 26 MEQ/L 22 - 30 [facility] Glucose [Mass/volume] in Serum or Plasma 117 MG/DL 70 - 99 H [facility] BUN 10 MG/DL 7 - 21 [facility] Creatinine [Mass/volume] in Serum or Plasma 0.7 MG/DL 0.7 - 1.5 [facility] BUN/CREAT 14 8 - 27 [facility] Protein [Mass/volume] in Serum or Plasma 6.8 G/DL 6.3 - 8.2 [facility] Albumin [Mass/volume] in Serum or Plasma 4.3 G/DL 3.9 - 5.0 [facility] Globulin [Mass/volume] in Serum by calculation 2.5 GM/DL 2.4 - 3.2 [facility] A/G RATIO 1.7 0.8 - 2.0 [facility] Calcium [Mass/volume] in Serum or Plasma 9.0 MG/DL 8.4 - 10.2 [facility] Bilirubin.total [Mass/volume] in Serum or Plasma <0.7 MG/DL 0.2 - 1.3 [facility] Alkaline phosphatase [Enzymatic activity/volume] in Serum or Plasma 59 U/L 38 - 126 [facility] Aspartate aminotransferase [Enzymatic activity/volume] in Serum or Plasma 25 U/L 5 - 40 [facility] Alanine aminotransferase [Enzymatic activity/volume] in Seru m or Plasma 29 U/L 7 - 56 [facility] Anion gap 3 in Serum or Plasma 7.0 mmol/L 8.0 - 16.0 L [facility] AGE 30 yrs [facility] NON-AA GFR >60 mL/min [facility] AFR AMER GFR >60 mL/min [facility] Male GFR In [...] >32 mL/min Normal ID Date Data Source [id number] 01/15/2021 11:53:00 AM EST [facility] [address] [place] [address] PHONE: [phone] FAX: [phone] Name .................. : TOSIN Rivera Acct Number.................. : [id number] ROOM. ................. : TR-1A MR Number ................... : [id number] Stay type ............. : E/R Discharge Date......... ... : 01/13/21 Admit Date ....... .. : 01/13/21 Admit Phys .................... : [facility] Date of ....... : 1990 Family Phys ................... : NON STAFF Phone .................. : [phone] Age ................................ : 30 Film# .................. .:[id number] Sex ................................. : M Unsigned transcriptions are preliminary reports and do not represent a medical or legal document ABDOMEN MULTIPLE VIEW [id number] COMPLETE:01/13/21 13:13 5757 Reason(s): Stent placement MULTIPLE [...] By Krunal Valverde M.D. , 01/15/21 11:53, [facility] Transcribe Initials: GAYATHRI , Transcribe Date: 01/13/21 17:37, Dictation Date: Copy for: HARSHAL HINKLE via fax Copy for: [address] [place] [address] REC DISCHARGED Page 1 of 1 Name Value Range Interpretation Code Description Data Marifer rce(s) Supporting Document(s) ID Date Data Source [id number] 01/14/2021 03:34:00 [place] [address] PHONE: [phone] FAX: [phone] Name .................. : LILIANEBENEZER ADDISONEW Nicole Acct Number.................. : [id number] ROOM. ................. : TR-1A Number ................... : [id number] Stay type ............. : E/R Discharge Date......... ... : 01/13/21 Admit Date ....... .. : 01/13/21 Admit Phys .................... : MERRITT Date of ....... : 1990 Family Phys ................... : NON STAFF Phone .................. : [phone] Age ................................ : 30 Film# .................. .:[id number] Sex ................................. : M Unsigned transcriptions are preliminary reports and do not represent a medical or legal document BLADDER [id number] COMPLETE:01/13/21 12:37 BAW 5746 Reason(s): Stent placed [...] HARSHAL THISHILPI via fax Copy for: [facility] REC DISCHARGED Page 1 of 1 Name Value Range Interpretation Code Description Data Marifer rce(s) Supporting Document(s) ID Date Data Source [id number] 01/14/2021 03:27:00 PM [facility] [address] [place] [address] PHONE: [phone] FAX: [phone] Name .................. : TOSIN WONG Nicole Acct Number.................. : [id number] ROOM. ................. : -1A MR Number ................... : [id number] Stay type ............. : E/R Discharge Date......... ... : 01/13/21 Admit Date ....... .. : 01/13/21 Admit Phys .................... : [facility] Date of ....... : 1990 Family Phys ................... : NON STAFF Phone .................. : [phone] Age ................................ : 30 Film# .................. .:[id number] Sex ................................. : M Unsigned transcriptions are preliminary reports and do not represent a medical or legal document RENAL LIMITED [id number] COMPLETE:01/13/21 12:37 BAW 5745 Reason(s): L renal [...] rce(s) Supporting Document(s) ID Date Data Source [id number] 01/13/2021 10:28:00 AM EST [facility] 1 OrderSheet [facility] Emergency Department [address] [place] [address] Phone #: ext- [phone] 01/13/2021 10:28 Patient: MARVIN LEAHY Sex: M [...] on Thursday and ahs pain 2 OrderSheet [facility] Emergency Department [address] [place] [address] Phone #: ext- [phone] 01/13/2021 10:28 Patient: [...] rce(s) Supporting Document(s) ID Date Data Source [id number] 01/13/2021 10:28:00 AM EST [facility] 1 Medication Reconciliation Report [facility] Emergency Department [address] [place] [address] Phone #: ext- [phone] 01/13/2021 10:28 Patient: [...] (500 mg), 2x a day Pregnyl Intramuscular (73335 unit), 3x a week risperiDONE Oral (1 mg), 2x a day traZODone HCl Oral (50 mg), daily Trolamine Salicylate External Xolair Subcutaneous (150 mg) 300mg, 3x a week Zofran Oral 4 mg, 3x a day, prnThe source(s) of the original Home Medication information:Not obtained.The following Medications were given to the patient in the Emergency Department: 2 Medication Reconciliation Report [facility] Emergency Department [address] [place] [address] Phone #: ext- [phone] 01/13/2021 10:28 Patient: [...] days --Dispense 9 tablet. Refills: 0. Substitution permitted.[facility] [place] [address]. .Colace 100 mg capsule Take 1 capsule twice a day for 5 days -- Dispense 10 capsule. Refills: 0.Substitution permitted.[facility] [place] [id number]. . -- Corey Mace P.A.-C Name Value Range Interpretation Code Description Data Marifer rce(s) Supporting Document(s) ID Date Data Source [id number] 01/13/2021 10:28:00 AM EST [facility] 1 Medication Administration Record [facility] Emergency Department [address] [place] [address] Phone #: ext- [phone] 01/13/2021 10:28 Patient: [...] NS IV 500 mL Bolus: : Bolus [id number] 01/13/2021 Dose: IV Fluids mL (X1)Robin Ashtonda, Rate: 500 mL/hr over 1 hour(s)---- Site: #1 left [id number] 01/13/2021Alyssa haskins, Name Value Range Interpretation Code Description Data Marifer rce(s) Supporting Document(s) ID Date Data Source [id number] 01/13/2021 10:28:00 AM EST [facility] 1 General Instructions [facility] Emergency Department [address] [place] [address] Phone #: ext- [phone] 01/13/2021 10:28 Patient: [...] during your visit. Do not drive or operatedangerEaglEyeMed machinery.CONTROLLED SUBSTANCE WARN INGS.GENERAL WARNINGS: Return or contact your physician immediately if your condition worsens orchanges unexpectedly, if not improving as expected, or if other problems arise.Prescription monitor program consulted by me due to Finished rx; appears no open.Prescription Medications:hydrocodone 5 mg- acetaminophen 325 mg tablet Take 1 tablet three times a day for 3 days --Dispense 9 tablet. Refills: 0. Substitution permitted.[facility] [address] [id number]. .Colace 100 mg capsule Take 1 capsule twice a day for 5 days -- Dispense 10 capsule. Refills: 0.Substitution permitted.[facility] [address] [place] [id number]. .Follow-up:Return to the emergency department as needed. Follow up with your healthcare provider [facility] in about two days.Understanding of the discharge instructions verbalized by patient. ADDITIONAL INFORMATION 2 General Instruction s [facility] Emergency Department [address] [place] [address] Phone #: ext- [phone] 01/13/2021 10:28 Patient: MARVIN LEAHYN: [id number] Sex: M : 1990 Age: 30yFlank Pain [...] legs that gets worse 3 General Instructions [facility] Emergency Department [address] [place] [address] Phone #: ext- [phone] 01/13/2021 10:28 Patient: MARVIN LEAHY Sex: M : 1990 Age: 30y Numbness or weakness in a leg [id number] [employer] [place] [address]. All rights reserved. This information is not [...] rce(s) Supporting Document(s) ID Date Data Source [id number] 01/13/2021 10:28:00 AM EST [facility] 1 Clinical Report - Nurses [facility] Emergency Department [address] [place] [address] Phone #: ext- [phone] 01/13/2021 10:28 Patient: MARVIN LEAHY Sex: M : 1990 Age: 30yTRIAGEArrived by private vehicle. Historian: patient. ( walked in).Acuity: LEVEL 3.Chief Complaint: PAIN WITH URINATION and URINARY RETENTION and HEMATURIA (Left stent[facility]11[facility] by Dr. Willett).Alert. No acute distress.( Pain with urination.). ( C/O nausea when voiding. pain is stabbing and sharp radiates to L side).Treatment MANUFACTURING QUALITY INSPECTOR:None.SEPSIS SCREEN: SIRS SCREEN NEGATIVE. SEPSIS SCREEN NEGATIVE. [...] 2x a day. Pregnyl Intramuscular (Solution Reconstituted 38895 unit), 3x a week. risperiDONE Oral (Tablet Disintegrating 1 mg), 2x a day. traZODone HCl Oral (Tablet 50 mg), daily. Trolamine Salicylate External. Xolair Subcutaneous (Solution Reconstituted 150 mg) 300mg, 3x a week. Zofran Oral 4 mg, 3x a day as needed. --11:00 01/13/21 Alyssa Ashton.AllergiesNone.Seafood. --11:00 01/13/21 Alyssa Ashton.PROBLEMS: 2 Clinical Report - Nurses [facility] Emergency Department [address] [place] [address] Phone #: ext- [phone] 01/13/2021 10:28 Patient: MARVIN LEAHY Sex: M [...] Alyssa Ashton. 3 Clinical Report - Nurses [facility] Emergency Department [address] [place] [address] Phone #: ext- [phone] 01/13/2021 10:28 Patient: MARVIN LEAHY Sex: M [...] RR: 16. O2 saturation: 100%. --11:41 01/13/21 [place] GPN[facility], [place] [address] Bedside pelvic sonogram performed by furniture technician (bedside ultrasound renal kidney). Rounding: Pain: assessed pain level (6 out of 10). Personal care / toileting: denies toileting needs. Proximity of possessions / care items: call light within easy reach. Plug ins: assured IV pump plugged in; checked status of equipment in use; located all cords, tubes, and lines to prevent fall hazard. --12:13 4 Clinical Report - Nurses [facility] Emergency Department [address] [place] [address] Phone #: ext- [phone] 01/13/2021 10:28 -- Patient: MARVIN LEAHY Sex: M : 1990 Age: 30y 01/13/21 Alyssa Ashton 12:40 01/13/21. BP: 121/79. MAP: 93. HR: 70. RR: 16. O2 saturation: 100%. --12:41 01/13/21 [place] pretzel cooker Verónica, Tech1 12:56 01/13/2021 Started IV Fluids [...] RR: 16. O2 saturation: 100%. --13:53 01/13/[address] [facility], [place] [address] Patient transported to radiology by wheelchair with IV, mask and radiology receptionist. --14:01 01/13/21 AshtonAlyssa heredia 14:08 01/13/2021 IV [...] saturation: 100%. Temp: 98.1 F. --14:52 01/13/[address] [facility], [place] [address] Reassurance given. The patient is resting quietly. Overall patient status- he states feels better. ( pt on phone with family.). --15:37 01/13/21 Alyssa Ashton. Intake Output Urine output: 350 mL measured, with return of bloody clear urine. Urine: normal smelling. --11:43 01/13/21 Alyssa Ashton Urine output: 300 mL voided with return of bloody urine. --14:52 01/13/[address] [facility] TechVerónica ER Tech1.DISPOSITION / DISCHARGE 15:51 01/13/21. BP: 126/84. MAP: 98. HR: 68. RR: 16. O2 saturation: 99%. Temp: 98.1 F. Pain level now: 02/16. --15:52 01/13/21 Velma Jimenes RN 5 Clinical Report - Nurses [facility] Emergency Department [address] [place] [address] Phone #: ext- [phone] 01/13/2021 10:28 Patient: MARVIN LEAHY Sex: M : 1990 Age: 30y 16:00 01/13/2021 Site #1 removed upon discharge. Catheter intact. Manual pressure and bandaid applied. --16:03 01/13/21 Alyssa Ashton Condition at departure: stable. No learning barriers present. Discharge instructions provided and reviewed with the patient. Reviewed medication(s). Prescription(s) sent electronically to pharmacy. Patient verbalized understanding. Written instructions provided in Finnish. The patient was discharged by the physician veterinary assistant technician. He was discharged home. He left ambulatory [...] rce(s) Supporting Document(s) ID Date Data Source [id number] 01/13/2021 10:28:00 AM EST [facility] 1 Clinical Report - Physicians/Mid Levels [facility] Emergency Department [address] [place] [address] Phone #: ext- [phone] 01/13/2021 10:28 Patient: [...] Surgeries: 2 Clinical Report - Physicians/Mid Levels [facility] Emergency Department [address] [place] [address] Phone #: ext- [phone] 01/13/2021 10:28 Patient: [...] 2x a day. Pregnyl Intramuscular (Solution Reconstituted 14167 unit), 3x a week. risperiDONE Oral (Tablet [...] EKG 3 Clinical Report - Physicians/Mid Levels [facility] Emergency Department [address] [place] [address] Phone #: ext- [phone] 01/13/2021 10:28 ------ [...] 19:20) In Progress Exam ABDOMEN MULTIPLE VIEW [address] [facility] [place] [place] [address] PHONE: [phone] FAX: [phone] Name .................. : TOSIN Rivera Acct Number.................. : [id number] ROOM. ................. : TR-1A MR Number ................... : [id number] Stay type ............. : E/R Discharge Date......... ... : 01/13/21 Admit Date ......... : 01/13/21 Admit Phys .................... : [facility] Date of ....... : 1990 Family Phys ................... : NON STAFF Phone .................. : [phone] Age ................................ : 30 Film# .................. .:[id number] Sex ................................. : M Unsigned transcriptions are preliminary reports and do not represent a medical or legal document ABDOMEN MULTIPLE VIEW [id number] COMPLETE:01/13/21 13:13 5757 Reason(s): Stent placement MULTIPLE [...] Date: 4 Clinical Report - Physicians/Mid Levels [facility] Emergency Department [address] [place] [address] Phone #: ext- [phone] 01/13/2021 10:28 Patient: [...] 10.2) 5 Clinical Report - Physicians/Mid Levels [facility] Emergency Department [address] [place] [address] Phone #: ext- [phone] 01/13/2021 10:28 Patient: [...] Male GFR Interprentation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 NORMAL: Negative [facility] Protein [Mass/volume] in Urine by Test strip NEG [facility]ORMAL: [facility] Nitrite [Presence] in Urine by Test strip NEG NORMAL: Negative [facility] BLOOD 150 NORMAL: Negative [facility] Leukocyte esterase [Presence] in Urine by Test strip NEG LLUVIA L: Negative [facility] Urobilinogen [Mass/volume] in Urine by Test strip NOR less fidelia n 1.0 mg/dL [facility] MICROSCOPIC See Below [facility] WBC 5 - 7 NORMAL: NONE SEEN [facility] Erythrocytes [#/volume] in Urine by Test strip 40 - 50 NORMAL: NON E SEEN A [facility] EPITHELIAL FEW NORMAL: NONE SEEN [facility] Bacteria [Presence] in Urine sediment by Light microscopy Tr du NORMAL: NONE SEEN [facility] Crystals [type] in Urine sediment by Light microscopy See Below [facility] CALCIUM OX Trace NORMAL: NONE SEEN [facility] ID Date Data Source [id number] 12/20/2020 11:29:00 AM EST [facility] 1 OrderSheet [facility] Emergency Department [address] [place] [address] Phone #: ext- [phone] 12/20/2020 11:28 Patient: [...] IVP 12:30 12/20/2020 12:58 Harry 2 OrderSheet [facility] Emergency Department [address] [place] [address] Phone #: ext- [phone] 12/20/2020 11:28 Patient: [...] rce(s) Supporting Document(s) ID Date Data Source [id number] 12/20/2020 11:29:00 AM EST [facility] 1 Medication Reconciliation Report [facility] Emergency Department [address] [place] [address] Phone #: ext- [phone] 12/20/2020 11:28 Patient: [...] 3x a week 2 Medication Reconciliation Report [facility] Emergency Department [address] [place] [address] Phone #: ext- [phone] 12/20/2020 11:28 Patient: [...] rce(s) Supporting Document(s) ID Date Data Source [id number] 12/20/2020 11:29:00 AM EST [facility] 1 Medication Administration Record [facility] Emergency Department [address] [place] [address] Phone #: ext- [phone] 12/20/2020 11:28 Patient: MARVIN LEAHY Sex: M : 1990 Age: 30yWeight: 90.7 kgHeight/Length: 68 inBMI: 30.4ALLERGIES: Seafood Date/Time Medication Administered Medication OrderedStart NS [IV] NS IV : Bolus 1000 mL, then 15696:57 12/20/2020 Dose: IV Fluids mL/Edilberto Garza RN [...] rce(s) Supporting Document(s) ID Date Data Source [id number] 12/20/2020 11:29:00 AM EST [facility] 1 General Instructions [facility] Emergency Department [address] [place] [address] Phone #: ext- [phone] 12/20/2020 11:28 Patient: [...] instructions verbalized by patient. 2 General Instructions [facility] Emergency Department [address] [place] [address] Phone #: ext- [phone] 12/20/2020 11:28 Patient: [...] break up the stone. 3 General Instructions [facility] Emergency Department [address] [place] [address] Phone #: ext- [phone] 12/20/2020 11:28 Patient: [...] barley, and beans. Phytates 4 General Instructions [facility] Emergency Department [address] [place] [address] Phone #: ext- [phone] 12/20/2020 11:28 Patient: [...] new findings that may affect your care.Call [phone] if you have any of these: Weakness, dizziness, or faintingWhen to seek medical adviceCall your healthcare provider right away if any of these occur: Pain that is not controlled by the medicine given 5 General Instructions [facility] Emergency Department [address] [place] [address] Phone #: ext- [phone] 12/20/2020 11:28 Patient: MARVIN LEAHY Sex: M [...] 8 hours and increasing bladder pressure [employer]. [address] [place] [address], [place] [address]. All rights reserved. This information is not [...] of cystitisis an infection. 6 General Instructions [facility] Emergency Department [address] [place] [address] Phone #: ext- [phone] 12/20/2020 11:28 Patient: [...] of: An enlarged prostate 7 General Instructions [facility] Emergency Department [address] [place] [address] Phone #: ext- [phone] 12/20/2020 11:28 Patient: [...] the foreskin when cleaning. 8 General Instructions [facility] Emergency Department [address] [place] [address] Phone #: ext- [phone] 12/20/2020 11:28 Patient: [...] any findings that may affect your care.Call [phone] if any of these occur: Trouble breathing [...] to keep medicine down 9 General Instructions [facility] Emergency Department [address] [place] [address] Phone #: zoe- [phone] 12/20/2020 11:28 Patient: MARVIN LEAHY Sex: M : 1990 Age: 30y Weakness or dizziness [id number] [employer] [place] [address]. All rights reserved. This information is not [...] rce(s) Supporting Document(s) ID Date Data Source [id number] 12/20/2020 11:29:00 AM EST [facility] 1 Clinical Report - Nurses [facility] Emergency Department [address] [place] [address] Phone #: ext- [phone] 12/20/2020 11:28 Patient: MARVIN LEAHY Sex: M : 1990 Age: 30yTRIAGEArrived by EMS. Historian: patient. ( pt seen [facility] with dx kidney stone , this morning [place] ptwas found on floor rocking in pain, EMS started saline lock and gave toradol 15 mg and zofran 4 mg IVwith some relief).Triage time: 11:31 12/20/2020. Acuity: LEVEL 3.Chief Complaint: ABDOMINAL PAIN.11:49 12/20/20.This started today. He has had abdominal pain.Treatment MANUFACTURING QUALITY INSPECTOR:None.SEPSIS SCREEN: SIRS SCREEN NEGATIVE. SEPSIS SCREEN NEGATIVE. [...] Garza RN 2 Clinical Report - Nurses [facility] Emergency Department [address] [place] [address] Phone #: ext- [phone] 12/20/2020 11:28 Patient: AMRVIN LEAHY Sex: M : 1990 Age: 30y Cefdinir Oral 300 mg, 2x a day, started yesterday. --11:44 12/20/20 Harry Garza RN Zofran Oral 4 mg, 3x a day as needed. --11:45 12/20/20 Harry Garza RN.AllergiesSeafood. --11:43 12/20/20 Harry Garza RN.ADDITIONAL SURGERIES:None. --11:45 12/20/20 Harry Garza RN.Zpqozjc43:49 12/20/20.SOCIAL HX: Never smoker. Alcohol use. (rarely). [...] peptic ulcer disease. --11:52 12/20/20 Harry Garza RN.Jpxyzwtfxvupw83:49 12/20/20. Identification and allergy band on patient. To room. --11:49 12/20/20 Harry Garza RN.PHYSICAL ASSESSMENT 3 Clinical Report - Nurses [facility] Emergency Department [address] [place] [address] Phone #: ext- [phone] 12/20/2020 11:28 Patient: MARVIN LEAHY Sex: M [...] 12/20/20. Cardiac rhythm: normal sinus rhythm; (1130). school guard, NIBP monitor and pulse oximeter placed on patient; nurse emergency- Lead II; monitor alarms on; monitor strip [...] RR: 16. O2 saturation: 96%. --12:03 12/20/20 [place] pretzel cooker, Verónica, Tech1 12:57 12/20/2020 Started bag #1 [...] es: blanket applied (1300). --12:59 12/20/20 Harry aGrza RN 4 Clinical Report - Nurses [facility] Emergency Department [address] [place] [address] Phone #: [phone] ext- [phone] 12/20/2020 11:28 Patient: MARVIN LEAHY Sex: M [...] Patient verbalized understanding. Written instructions provided in Finnish. The patient was discharged by the physician veterinary assistant technician. He was discharged home. He left ambulatory and via private vehicle. Household Manager driving. --15:02 12/20/20 Harry Garza RN 14:45 12/20/20. BP: 121/52. MAP: 75. HR: 78. RR: 18. O2 saturation: 98%. Temp: 98.1 F (temporal). Pain level now: 02/16. --15:02 12/20/20 Harry Garza RN.Locked/Released at 09/2021 16:56 by Harry Garza RN Name Value Range Interpretation Code Description Data Marifer rce(s) Supporting Document(s) ID Date Data Source [id number] 12/20/2020 11:29:00 AM EST [facility] 1 Clinical Report - Physicians/Mid Levels [facility] Emergency Department [address] [place] [address] Phone #: ext- [phone] 12/20/2020 11:28 Patient: MARVIN LEAHY Sex: M [...] dx kidney stone , this morning [place] pt was found on floor rocking in [...] yesterday. 2 Clinical Report - Physicians/Mid Levels [facility] Emergency Department [address] [place] [address] Phone #: ext- [phone] 12/20/2020 11:28 - [id number] Sex: M : 1990 Age: 30y Flomax [...] Tests: 3 Clinical Report - Physicians/Mid Levels [facility] Emergency Department [address] [place] [address] Phone #: ext- [phone] 12/20/2020 11:28 Patient: MARVIN LEAHY Sex: M [...] 3.2) 4 Clinical Report - Physicians/Mid Levels [facility] Emergency Department [address] [place] [address] Phone #: ext- [phone] 12/20/2020 11:28 Patient: [...] complaints. 5 Clinical Report - Physicians/Mid Levels [facility] Emergency Department [address] [place] [address] Phone #: ext- [phone] 12/20/2020 11:28 Patient: [...] there, thus no urology coverage currently.Will call [facility] and consult. Called urology office and pending call back/consult.14:04 12/20/20. Noted that pt is lying peacfully in bed in nad. Pending call back.Called urology (Dr. Marrufo). Discussed pt. Pt has no fever, has appropriate meds rx'ed, and has no 6 Clinical Report - Physicians/Mid Levels [facility] Emergency Department [address] [place] [address] Phone #: ext- [phone] 12/20/2020 11:28 Patient: MARVIN LEAHY Sex: M [...] arise. 7 Clinical Report - Physicians/Mid Levels [facility] Emergency Department [address] [place] [address] Phone #: ext- [phone] 12/20/2020 11:28 Patient: [...] rce(s) Supporting Document(s) ID Date Data Source [id number] 12/25/2020 06:41:00 AM [facility] Name Value Range Interpretation Code Description Data Marifer rce(s) Supporting Document(s) CULTURE URINE [facility] spital _CULTURE URINE_$$[id number]$$[id number]$$[id number]$$929847$$117114$$244743$$574552$$205333$$875779$$ 676493$$391239$$976243$$248755$$966628$$822299$$076412$$854941$$730167$$753827$$ 134132$$679582$$516414$$801530$$119210$$927871$$281687$$888082 -- Continued on next page --Patient: TOSIN WONG N Order: Page 2Culture: CULTURE URINE Status: Final ==== -- Continued on next page --Patient: TOSIN WONG N Order: Page 2Culture: CULTURE URINE Status: Prelim =====$$[id number]$$[id number] DATE/TIME: 12/24/2020 16:06Culture: CULTURE URINE Status: FinalUrine Culture,Comprehensive: P1No growth in 36 - 48 hours. Previous result entered on 12/23/2020 03:00 ET No growth after 18-24 hours.P1 Test performed [facility]: [id number] [address] [id number] [facility] [address]Medical Director : Steve Prater MD NPI #:Lab Di fiorella : 12/24/20.0618.XMT.SENT REF 12/25/20.0641.XMT.SENT REF ID Date Data Source [id number] 12/20/2020 01:39:00 PM EST [facility] Name Value Range Interpretation Code Description Data Marifer rce(s) Supporting Document(s) URINALYSIS [facility] URINALYSIS SOURCE R [facility] COLOR yellow NORMAL: Yellow [facility] CLARITY clear NORMAL: Clear [facility] Specific gravity of Urine by Test strip 1.015 1.001 - 1.030 [facility] pH 8 5 - 9 [facility] Glucose [Mass/volume] in Urine by Test strip NORM NORMAL: Negat [facility] Bilirubin.total [Presence] in Urine by Test strip NEG NORMAL: Negative [facility] Ketones [Presence] in Urine by Test strip NEG NORMAL: Negative [facility] Protein [Mass/volume] in Urine by Test strip NEG NORMAL: Negat [facility] Nitrite [Presence] in Urine by Test strip NEG NORMAL: Negative [facility] BLOOD 250 NORMAL: Negative A [facility] Leukocyte esterase [Presence] in Urine by Test strip NEG LLUVIA L: Negative [facility] Urobilinogen [Mass/volume] in Urine by Test strip NOR less fidelia n 1.0 mg/dL [facility] MICROSCOPIC See Below [facility] WBC 1 - 3 NORMAL: NONE SEEN [facility] Erythrocytes [#/volume] in Urine by Test strip 10 - 15 NORMAL: NON E SEEN A [facility] EPITHELIAL FEW NORMAL: NONE SEEN [facility] Bacteria [Presence] in Urine sediment by Light microscopy Tr du NORMAL: NONE SEEN [facility] Crystals [type] in Urine sediment by Light microscopy See Below [facility] CALCIUM OX 2+ NORMAL: NONE SEEN A [facility] ID Date Data Source [id number] 12/20/2020 01:39:00 PM EST [facility] Name Value Range Interpretation Code Description Data Marifer rce(s) Supporting Document(s) COMPREHENSIVE METABOLIC PANEL [facility] COMPREHENSIVE METABOLIC PANEL Sodium [Moles/volume] in Serum or Plasma 139 mEq/L 134 - 153 [facility] Potassium [Moles/volume] in Serum or Plasma 3.8 mEq/L 3.6 - 5.0 [facility] Chloride [Moles/volume] in Serum or Plasma 102 mEq/L 98 - 107 [facility] Carbon dioxide, total [Moles/volume] in Serum or Plasma 28 MEQ/L 22 - 30 [facility] Glucose [Mass/volume] in Serum or Plasma 84 MG/DL 70 - 99 [facility] BUN 5 MG/DL 7 - 21 L [facility] al Creatinine [Mass/volume] in Serum or Plasma 1.0 MG/DL 0.7 - 1.5 [facility] BUN/CREAT 5 8 - 27 L [facility] Protein [Mass/volume] in Serum or Plasma 7.4 G/DL 6.3 - 8.2 [facility] Albumin [Mass/volume] in Serum or Plasma 4.4 G/DL 3.9 - 5.0 [facility] Globulin [Mass/volume] in Serum by calculation 3.0 GM/DL 2.4 - 3.2 [facility] A/G RATIO 1.5 0.8 - 2.0 [facility] Calcium [Mass/volume] in Serum or Plasma 9.7 MG/DL 8.4 - 10.2 [facility] Bilirubin.total [Mass/volume] in Serum or Plasma <0.7 MG/DL 0.2 - 1.3 [facility] Alkaline phosphatase [Enzymatic activity/volume] in Serum or Plasma 70 U/L 38 - 126 [facility] Aspartate aminotransferase [Enzymatic activity/volume] in Serum or Plasma 27 U/L 5 - 40 [facility] Alanine aminotransferase [Enzymatic activity/volume] in Seru m or Plasma 32 U/L 7 - 56 [facility] Anion gap 3 in Serum or Plasma 9.0 mmol/L 8.0 - 16.0 [facility] AGE [address] [facility] NON-AA GFR >60 mL/min [facility] AFR AMER GFR >60 mL/min [facility] Male GFR In [...] >32 mL/min Normal ID Date Data Source [id number] 12/20/2020 01:22:00 PM [facility] Name Value Range Interpretation Code Description Data Marifer rce(s) Supporting Document(s) Lipase [Enzymatic activity/volume] in Serum or Plasma 29 U/L 13 - 60 [facility] ID Date Data Source [id number] 12/20/2020 01:18:00 PM [facility] Name Value Range Interpretation Code Description Data Marifer rce(s) Supporting Document(s) CBC W/AUTOMATED DIFF [facility] COMPLETE BLOOD COUNT Leukocytes [#/volume] in Blood by Automated count 5.5 10^3/uL 4.2 - 1 1.0 [facility] Erythrocytes [#/volume] in Blood by Automated count 4.70 10^6/uL 4. 50 - 6.30 [facility] Hemoglobin [Mass/volume] in Blood 13.9 g/dL 14.0 - 16.0 L [facility] Hematocrit [Volume Fraction] of Blood by Automated count 42.4 % 4 1.0 - 51.0 [facility] Erythrocyte mean corpuscular volume [Entitic volume] by Auto mated count 90.2 fL 80.0 - 94.0 [facility] Erythrocyte mean corpuscular hemoglobin [Entitic mass] by Automated count 29.6 pg 27.0 - 34.0 [facility] Erythrocyte mean corpuscular hemoglobin concentration [Mass/volume] by Automated count 32.8 g/dL 31.0 - 36.0 [facility] Erythrocyte distribution width [Ratio] by Automated count 12.4 % 11.5 - 14.8 [facility] Platelets [#/volume] in Blood by Automated count 192 10^3/uL 150 - 45 0 [facility] Platelet mean volume [Entitic volume] in Blood by Automated count 11.0 fL 7.4 - 10.4 H [facility] Neutrophils/100 leukocytes in Blood by Automated count 48.0 % 37. 0 - 80.0 [facility] Lymphocytes/100 leukocytes in Blood by Manual count 40.8 % 25.0 - 40.0 H [facility] Monocytes/100 leukocytes in Blood by Automated count 8.4 % 3.0 - 8.0 H [facility] Eosinophils/100 leukocytes in Blood by Automated count 2.2 % 0.0 - 7.0 [facility] Basophils/100 leukocytes in Blood by Automated count 0.4 % 0.0 - 2.0 [facility] %IG 0.2 % 0.0 - 0.0 [facility] %NRBC 0.0 % 0.0 - 0.0 [facility] al Neutrophils [#/volume] in Blood by Automated count 2.62 10^3/uL 2.00 - 6.90 [facility] Lymphocytes [#/volume] in Blood by Automated count 2.23 10^3/uL 0.60 - 3.40 [facility] Monocytes [#/volume] in Blood by Automated count 0.46 10^3/uL 0.00 - 0.90 [facility] Eosinophils [#/volume] in Blood by Automated count 0.12 10^3/uL 0.00 - 0.70 [facility] Basophils [#/volume] in Blood by Automated count 0.02 10^3/uL 0.00 - 0.20 [facility] #IG 0.01 10^3/uL 0.00 - 0.10 [facility] #NRBC 0.00 10^3/uL 0.00 - 0.00 [facility] MANUAL DIFF SEE BELOW [facility] Segmented neutrophils/100 leukocytes in Blood by Manual count 71 % 37 - 80 [facility] %LYMPH 24 % 25 - [address] [facility] %MONO 3 % 3 - 8 [facility] %EOS 2 % 0 - 7 [facility] RBC MORPH SEE BELOW [facility] Anisocytosis [Presence] in Blood by Light microscopy 1+ LLUVAI L: NONE SEEN A [facility] { SICKLE CELL (NORMAL: NONE SEEN ) Platelet adequacy [Presence] in Blood by Light microscopy NORMAL NORMAL: NORMAL [facility] COMMENT: ID Date Data Source [id number] 12/19/2020 02:54:00 PM EST [facility] [address] [facility] [place] [address] PHONE: [phone] FAX: [phone] Name .................. : TOSIN Rivera Acct Number.................. : [id number] ROOM. ................. : -02 MR Number ................... : [id number] Stay type ............. : E/R Discharge Date......... ... : Admit Date ......... : 12/19/20 Admit Phys .................... : SAMANTHA OLVERA Date of ....... : 1990 Family Phys ................... : NON STAFF Phone .................. : [phone] Age ................................ : 30 Film# .................. .:[id number] Sex ................................. : M Unsigned transcriptions are preliminary reports and do not represent a medical or legal document CT ABD & PELV W/O ORAL W/[place] [address] COMPLETE:12/19/20 11:02 [facility] 3982 Reason(s): sudden left flank pain CT [...] mGycm. Electronically Reviewed and Signed By Nimco Braldey MD , 12/19/20 14:54, KGG Transcribe Initials: SSR, Transcribe Date: 12/19/20 13:05, Dictation Date: Page 1 of 2 [place] [address] PHONE: [phone] FAX: [phone] Name .................. : TOSIN Rivera Acct Number.................. : [id number] ROOM. ................. : TR-02 MR Number ................... : [id number] Stay type ............. : E/R Discharge Date......... ... : Admit Date ......... : 12/19/20 Admit Phys .................... : SAMANTHA OLVERA Date of ....... : 1990 Family Phys ................... : NON STAFF Phone .................. : [phone] Age ................................ : 30 Film# .................. .:[id number] Sex ................................. : M Unsigned transcriptions are preliminary reports and do not represent a medical or legal document CT ABD & PELV W/O ORAL W/[place] [address] COMPLETE:12/19/20 11:02 [facility] 3982 Reason(s): sudden left flank pain Copy for: 010 EMERGENCY SRV Copy for: EMERGENCY DEPT via modem Copy for: 710 MED REC Page 2 of 2 Name Value Range Interpretation Code Description Data Marifer rce(s) Supporting Document(s) ID Date Data Source [id number] 12/19/2020 09:11:00 AM EST [facility] 1 OrderSheet [facility] Emergency Department [address] [place] [address] Phone #: ext- [phone] 12/19/2020 09:10 Patient: [...] 1 09:41 12/19/2020 09:51 Letty, 2 OrderSheet [facility] Emergency Department [address] [place] [address] Phone #: ext- [phone] 12/19/2020 09:10 Patient: [...] rce(s) Supporting Document(s) ID Date Data Source [id number] 12/19/2020 09:11:00 AM EST [facility] 1 Medication Reconciliation Report [facility] Emergency Department [address] [place] [address] Phone #: ext- [phone] 12/19/2020 09:10 Patient: [...] the Emergency Department: 2 Medication Reconciliation Report [facility] Emergency Department [address] [place] [address] Phone #: ext- [phone] 12/19/2020 09:10 Patient: [...] 12 tablet. Refills: 0. Substitution permitted.Pharmacy - [place] [id number] - [id number] ; [place] [address]. .Flomax 0.4 mg capsule Take 1 capsule once a day for 7 days -- Dispense 7 capsule. Refills: 0.Substitution permitted.[facility] [address] [place] [address] [address] ; [place] [address]. .cefdinir 300 mg capsule Take 1 capsule twice a day for 7 days -- Dispense 14 capsule. Refills: 0.Substitution permitted.[facility] [address] [place] [address] [address] ; [place] [address]. .Zofran 4 mg tablet Take 1 tablet three times a day as needed for 4 days -- Dispense 12 tablet. Refills: 0.Substitution permitted.[facility] [address] [place] [address] [address] ; [place] [address]. . -- Evelio Luna M.D. Name Value Range Interpretation Code Description Data Marifer rce(s) Supporting Document(s) ID Date Data Source [id number] 12/19/2020 09:11:00 AM EST [facility] 1 Medication Administration Record [facility] Emergency Department [address] [place] [address] Phone #: [phone]- [phone] 12/19/2020 09:10 Patient: MARVIN LEAHY Sex: M [...] NS IV : Bolus 250 mL, then 08140:05 12/19/2020 Dose: IV Fluids mL/hrAster Saenz R.N. [...] Name Value Range Interpretation Code Description Data Mairfer rce(s) Supporting Document(s) ID Date Data Source [id number] 12/19/2020 09:11:00 AM EST [facility] 1 General Instructions [facility] Emergency Department [address] [place] [address] Phone #: ext- [phone] 12/19/2020 09:10 Patient: [...] 0. Substitution permi tted. 2 General Instructions [facility] Emergency Department [address] [place] [address] Phone #: ext- [phone] 12/19/2020 09:10 Patient: MARVIN LEAHY Sex: M : 1990 Age: 30yPharmacy - [facility] [id number] ; [place] [address]. .Flomax 0.4 mg capsule Take 1 capsule once a day for 7 days -- Dispense 7 capsule. Refills: 0.Substitution permitted.[facility] - [place] [id number] ; [place] [address]. .cefdinir 300 mg capsule Take 1 capsule twice a day for 7 days -- Dispense 14 capsule. Refills: 0.Substitution permitted.[facility] [id number] ; [place] [address]. .Zofran 4 mg tablet Take 1 tablet three times a day as needed for 4 days -- Dispense 12 tablet. Refills: 0.Substitution permitted.Pharmacy - [facility] [id number] ; [place] [address]. .Follow-up:Return to the emergency department as needed. Follow up with a boiler tester and urologist in three dayseven if well. [...] INFORMATIONKidney Stone with Pain 3 General Instructions [facility] Emergency Department [address] [place] [address] Phone #: ext- [phone] 12/19/2020 09:10 Patient: MARVIN LEAHY Sex: M [...] Various [place] [address] General Instructions [facility] Emergency Department [address] [place] [address] Phone #: ext- [phone] 12/19/2020 0 9:10 [...] kidney stones. Eat a 5 General Instructions [facility] Emergency Department [address] [place] [address] Phone #: ext- [phone] 12/19/2020 09:10 Patient: [...] new findings that may affect your care.Call [id number] [phone] if you have any of these: Weakness, [...] lots of blood clots 6 General Instructions [facility] Emergency Department [address] [place] [address] Phone #: ext- [phone] 12/19/2020 09:10 Patient: MARVIN LEAHY Sex: M : 1990 Age: 30y Foul-smelling or cloudy urine Unable to pass urine for 8 hours and increasing bladder pressure [employer] [address] [place] [address], [place] [address]. All rights reserved. This information is not [...] rce(s) Supporting Document(s) ID Date Data Source [id number] 12/19/2020 09:11:00 AM EST [facility] 1 Clinical Report - Nurses [facility] Emergency Department [address] [place] [address] Phone #: ext- [phone] 12/19/2020 09:10 Patient: MARVIN LEAHY Sex: M : 1990 Age: 30yTRIAGEArrived by EMS. Historian: patient.Chief Complaint: (left flank/ LLQ/ left groin pain).Onset. (0200). No fever, testicular pain or inguinal swelling. Able to void.EMS Treatment MANUFACTURING QUALITY INSPECTOR:See EMS report. Medications given- ondansetron (fentanyl 50 [...] Saenz R.N. 2 Clinical Report - Nurses [facility] Emergency Department [address] [place] [address] Phone #: ext- [phone] 12/19/2020 09:10 Patient: [...] placed in 3 Clinical Report - Nurses [facility] Emergency Department [address] [place] [address] Phone #: ext- [phone] 12/19/2020 09:10 Patient: MARVIN LEAHY Sex: M : 1990 Age: 30ylowest position. Brakes of bed on. Patient ready for evaluation. --09:17 12/19/20 Aster Saenz R.N.09:30 12/19/20. BP: 129/95. MAP: 106. HR: 69. RR: 16. O2 saturation: 96%. --09:34 12/19/20 [facility] Ecoh862:47 12/19/2020 Toradol (Ketorolac Tromethamine) IVP 15 mg [...] 83. HR: 82. RR: 14. --09:59 12/19/20 [facility] Rhpd680:05 12/19/2020 Started bag #1 250 mL IV [...] Patient returned from CT by stretcher with radiology receptionist. --10:50 12/19/20 Aster Saenz R.N.11:00 12/19/20. BP: 116/50. MAP: 72. HR: 96. RR: 14. O2 saturation: 100%. --11:00 12/19/20 [facility] Rfhe507:28 12/19/2020 Flomax (Tamsulosin HCl) PO Capsules 0.4 [...] medication administration. 4 Clinical Report - Nurses [facility] Emergency Depar tment [address] [place] [address] Phone #: ext- [phone] 12/19/2020 09:10 Patient: MARVIN LEAHY Sex: M : 1990 Age: 30y Information reviewed with patient. Verbalizes understanding. --11:28 12/19/20 Aster Saenz R.N. 11:58 12/19/20. BP: 106/50. MAP: 68. HR: 72. RR: 16. O2 saturation: 99%. --11:59 12/19/20 [place] pretzel cooker, Verónica, ER Tech1 12:58 12/19/20. BP: 110/94. MAP: 99. HR: 82. RR: 16. O2 saturation: 100%. --12:58 12/19/20 [place] pretzel cooker, Verónica, ER Tech1 12:00 12/19/2020 CEFTRIAXONE (1GM/50ML) [...] or swelling. IV flushed thoroughly. --13:12 12/19/20 Atser Saenz R.N. ( patient awake and alert [...] Patient verbalized understanding. Written instructions provided in Finnish. --13:41 12/19/20 Aster Saenz R.N.Locked/Released at 12/19/2020 13:41 by Aster Saenz R.N. Name Value Range Interpretation Code Description Data Marifer rce(s) Supporting Document(s) ID Date Data Source [id number] 12/19/2020 09:11:00 AM [facility] 1 Clinical Report - Physicians/Mid Levels [facility] Emergency Department [address] [place] [address] Phone #: ext- [phone] 12/19/2020 09:10 Patient: [...] received Fentanyl 50 mcg IV per EMS MANUFACTURING QUALITY INSPECTOR). No recent travel. Similar symptoms previously. None. [...] day. 2 Clinical Report - Physicians/Mid Levels [facility] Emergency Department [address] [place] [address] Phone #: ext- [phone] 12/19/2020 09:10 Patient: MARVIN LEAHY Sex: M [...] results 3 Clinical Report - Physicians/Mid Levels [facility] Emergency Department [address] [place] [address] Phone #: ext- [phone] 12/19/2020 09:10 Patient: [...] Male GFR Interprentation 20-49 yrs >60 mL/min Ihnwxi07-44 yrs >56 mL/min Normal 60-69 yrs >49 mL/min Normal 70-79yrs>42 mL/min Normal 80 and above >35 mL/min Normal Female GFRInterpretation 20-39 yrs >60 mL/min Normal 40-49 yrs >58 mL/min 4 Clinical Report - Physicians/Mid Levels [facility] Emergency Department [address] [place] [address] Phone #: ext- [phone] 12/19/2020 09:10 Patient: [...] NONE BACTERIA Trace (NORMAL: NONE Lactic Acid: (DERRCIK: 12/19/2020 09:50) ( MsgRcvd 12/19/2020 10:05) Final [...] thepharmacies. 5 Clinical Report - Physicians/Mid Levels [facility] Emergency Department [address] [place] [address] Phone #: [phone]- [phone] 12/19/2020 09:10 Patient: MARVIN LEAHY Sex: M : 1990 Age: 30y This report was requested by: Evelio Luna Reference #: [id number] My Prescriptions Patient Name: Marvin Lin Date: 1990 Address: [address] [place], [place] [address]Siu: Male Rx Written Rx Dispensed Drug Quantity Days Supply Prescriber Name Payment Method Dispenser 09/17/2020 09/17/2020 hydrocodone-acetaminophen 5-325 mg tablet 12 3 Evelio Luna MD [facility] [phone] * - Drugs marked with an asterisk [...] HEART 6 Clinical Report - Physicians/Mid Levels [facility] Emergency Department [address] [place] [address] Phone #: ext- [phone] 12/19/2020 09:10 Patient: [...] -- Dispense 12 tablet. Refills: 0. Substitution permitted.[facility] [address] [place] [address] [address] ; [place] [address]. .Flomax 0.4 mg capsule Take 1 capsule once a day for 7 days -- Dispense 7 capsule. Refills: 0.Substitution permitted.[facility] [address] [place] [address] [place] [address] ; [place] [address]. .cefdinir 300 mg capsule Take 1 capsule twice a day for 7 days -- Dispense 14 capsule. Refills: 0.Substitution permitted.[address] ; [place] [address]. .Zofran 4 mg tablet Take 1 tablet three times a day as needed for 4 days -- Dispense 12 tablet. Refills: 0.Substitution permitted.[address] ; [place] [address]. . 7 Clinical Report - Physicians/Mid Levels [facility] Emergency Department [address] [place] [address] Phone #: ext- [phone] 12/19/2020 09:10 Patient: MARVIN LEAHY Sex: M : 1990 Age: 30y Follow-up: Return to the emergency department as needed. Follow up with a boiler tester and urologist in three days even if [...] rce(s) Supporting Document(s) ID Date Data Source [id number] 12/19/2020 11:16:00 AM EST [facility] Name Value Range Interpretation Code Description Data [facility] rce(s) Supporting Document(s) CBC W/AUTOMATED DIFF [facility] COMPLETE BLOOD COUNT Leukocytes [#/volume] in Blood by Automated count 5.6 10^3/uL 4.2 - 1 1.0 [facility] Erythrocytes [#/volume] in Blood by Automated count 4.55 10^6/uL 4. 50 - 6.30 [facility] Hemoglobin [Mass/volume] in Blood 13.6 g/dL 14.0 - 16.0 L [facility] Hematocrit [Volume Fraction] of Blood by Automated count 41.3 % 4 1.0 - 51.0 [facility] Erythrocyte mean corpuscular volume [Entitic volume] by Auto mated count 90.8 fL 80.0 - 94.0 [facility] Erythrocyte mean corpuscular hemoglobin [Entitic mass] by Automated count 29.9 pg 27.0 - 34.0 [facility] Erythrocyte mean corpuscular hemoglobin concentration [Mass/volume] by Automated count 32.9 g/dL 31.0 - 36.0 [facility] Erythrocyte distribution width [Ratio] by Automated count 12.7 % 11.5 - 14.8 [facility] Platelets [#/volume] in Blood by Automated count 175 10^3/uL 150 - 45 0 [facility] Platelet mean volume [Entitic volume] in Blood by Automated count 11.4 fL 7.4 - 10.4 H [facility] Neutrophils/100 leukocytes in Blood by Automated count 53.6 % 37. 0 - 80.0 [facility] Lymphocytes/100 leukocytes in Blood by Manual count 32.4 % 25.0 - 40.0 [facility] Monocytes/100 leukocytes in Blood by Automated count 11.8 % 3.0 - 8.0 H [facility] Eosinophils/100 leukocytes in Blood by Automated count 1.4 % 0.0 - 7.0 [facility] Basophils/100 leukocytes in Blood by Automated count 0.4 % 0.0 - 2.0 [facility] %IG 0.4 % 0.0 - 0.[address] [facility] al %NRBC 0.0 % 0.0 - 0.0 [facility] al Neutrophils [#/volume] in Blood by Automated count 3.00 10^3/uL 2.00 - 6.90 [facility] Lymphocytes [#/volume] in Blood by Automated count 1.81 10^3/uL 0.60 - 3.40 [facility] Monocytes [#/volume] in Blood by Automated count 0.66 10^3/uL 0.00 - 0.90 [facility] Eosinophils [#/volume] in Blood by Automated count 0.08 10^3/uL 0.00 - 0.70 [facility] Basophils [#/volume] in Blood by Automated count 0.02 10^3/uL 0.00 - 0.20 [facility] #IG 0.02 10^3/uL 0.00 - 0.10 [facility] #NRBC 0.00 10^3/uL 0.00 - 0.00 [facility] ospital MANUAL DIFF NOT INDICATED [facility] RBC MORPH NOT INDICATED [facility] spital ID Date Data Source [id number] 12/19/2020 10:18:00 AM [facility] Name Value Range Interpretation Code Description Data Marifer rce(s) Supporting Document(s) Lipase [Enzymatic activity/volume] in Serum or Plasma 25 U/L 13 - 60 [facility] ID Date Data Source [id number] 12/19/2020 10:18:00 AM [facility] Name Value Range Interpretation Code Description Data Marifer rce(s) Supporting Document(s) COMPREHENSIVE METABOLIC PANEL [facility] COMPREHENSIVE METABOLIC PANEL Sodium [Moles/volume] in Serum or Plasma 138 mEq/L 134 - 153 [facility] Potassium [Moles/volume] in Serum or Plasma 3.8 mEq/L 3.6 - 5.0 [facility] Chloride [Moles/volume] in Serum or Plasma 103 mEq/L 98 - 107 [facility] Carbon dioxide, total [Moles/volume] in Serum or Plasma 25 MEQ/L 22 - 30 [facility] Glucose [Mass/volume] in Serum or Plasma 98 MG/DL 70 - 99 [facility] BUN 8 MG/DL 7 - 21 [facility] al Creatinine [Mass/volume] in Serum or Plasma 0.9 MG/DL 0.7 - 1.5 [facility] BUN/CREAT 9 8 - 27 [facility] Protein [Mass/volume] in Serum or Plasma 6.8 G/DL 6.3 - 8.2 [facility] Albumin [Mass/volume] in Serum or Plasma 4.3 G/DL 3.9 - 5.0 [facility] Globulin [Mass/volume] in Serum by calculation 2.5 GM/DL 2.4 - 3.2 [facility] A/G RATIO 1.7 0.8 - 2.0 [facility] Calcium [Mass/volume] in Serum or Plasma 9.6 MG/DL 8.4 - 10.2 [facility] Bilirubin.total [Mass/volume] in Serum or Plasma <0.7 MG/DL 0.2 - 1.3 [facility] Alkaline phosphatase [Enzymatic activity/volume] in Serum or Plasma 67 U/L 38 - 126 [facility] Aspartate aminotransferase [Enzymatic activity/volume] in Serum or Plasma 27 U/L 5 - 40 [facility] Alanine aminotransferase [Enzymatic activity/volume] in Seru m or Plasma 29 U/L 7 - 56 [facility] Anion gap 3 in Serum or Plasma 10.0 mmol/L 8.0 - 16.0 [facility] AGE 30 yrs [facility] al NON-AA GFR >60 mL/min [facility] ital AFR AMER GFR >60 mL/min [facility] Male GFR In [...] >32 mL/min Normal ID Date Data Source [id number] 12/19/2020 10:05:00 AM EST [facility] Name Value Range Interpretation Code Description Data Marifer rce(s) Supporting Document(s) Lactate [Moles/volume] in Serum or Plasma 1.4 MMOL/L 0.2 - 2.2 [facility] ID Date Data Source [id number] 12/19/2020 10:20:00 AM [facility] Name Value Range Interpretation Code Description Data Marifer rce(s) Supporting Document(s) [facility]IS [facility] COLOR brown NORMAL: Yellow [facility] CLARITY turbid NORMAL: Clear [facility] Specific gravity of Urine by Test strip 1.015 1.001 - 1.030 [facility] pH 8 5 - 9 [facility] al Glucose [Mass/volume] in Urine by Test strip NORM NORMAL: Negat [facility] Bilirubin.total [Presence] in Urine by Test strip NEG NORMAL: Negative [facility] Ketones [Presence] in Urine by Test strip NEG NORMAL: Negative [facility] Protein [Mass/volume] in Urine by Test strip 100 NORMAL: Negat xiomara [facility] Nitrite [Presence] in Urine by Test strip NEG NORMAL: Negative [facility] BLOOD 250 NORMAL: Negative [facility] Leukocyte esterase [Presence] in Urine by Test strip 25 LLUVIA L: Negative [facility] Urobilinogen [Mass/volume] in Urine by Test strip NOR less fidelia n 1.0 mg/dL [facility] MICROSCOPIC See Below [facility] Erythrocytes [#/volume] in Urine by Test strip TNTC NORMAL: NON E SEEN A [facility] EPITHELIAL FEW NORMAL: NONE SEEN [facility] Bacteria [Presence] in Urine sediment by Light microscopy Tr du NORMAL: NONE SEEN [facility] ID Date Data Source [id number] 12/03/2020 01:03:00 [place] [address] CONSULTATIONNAME: TOSIN Rivera ROOM#: 101-1DATE OF : 1990 MR#: [id number] PHYS: POP Paulino DATE: 12/01/20DATE OF CONSULTATION: 12/02/20CHIEF COMPLAINT: This 30-year-old white male presented with episode of syncope.HISTORY OF PRESENT ILLNESS:This patient went to [employer] to get food and after he got [...] Clear with no rales or rhonchi. [address] [place] [address] CONSULTATIONNAME: TOSIN Rivera ROOM#: [id number] OF : 1990 MR#: [id number] PHYS: POP Tran DATE: 12/01/20ABDOMEN: Soft and [...] rce(s) Supporting Document(s) ID Date Data Source [id number] 12/12/2020 12:00:00 AM EST [facility] ology Imaging Jairon Christiansen MD Patient Name: MARVIN LEAHY[address] Date of : 1990[facility] [place] [address]- Date of Exam: 12/12/2020#: Fax: [phone] EXAM: CT THORAX WITH CONTRASTCLINICAL INFORMATION: Hilar lymphadenopathy.COMPARISON: CT abdomen and pelvis [facility] 08/15/2020.Low dose [address] scanning of the chest was obtained using 3 mmincrements after the administration of intravenous contrast andreconstructed in both coronal and sagittal scan planes. 75 cc of Jloeuxx646 was administered intravenously.The lungs are free of [...] and no suspicious lung nodule.Accredited by the [employer] in [place].ROSY Alva/Maryam you for referring MARVIN TOSIN to our office. Electronically Signed - RANDOLPH ALVAREZ MD 12/14/20 18:04 Name Value Range Interpretation Code Description Data Marifer rce(s) Supporting Document(s) ID Date Data Source [id number] 12/05/2020 09:23:00 [place] [address] PHONE: [phone] FAX: [phone] Name .................. : TOSIN Rivera Acct Number.................. : [id number] ROOM. ................. : 101-1 MR Number ................... : [id number] Stay type ............. : O/P Discharge Date......... ... : 12/03/20 Admit Date ......... : 12/01/20 Admit Phys .................... : AMARJIT Date of ....... : 1990 Family Phys ................... : NON STAFF Phone .................. : [phone] Age ................................ : 30 Film# .................. .:[id number] Sex ................................. : M Unsigned transcriptions are preliminary reports and do not represent a medical or legal document CAROTID [id number] COMPLETE:12/01/20 08:09 [facility] 2817 (REASON FOR PROCEDURE :SYNCOPE CAROTID SONOGRAM, [...] rce(s) Supporting Document(s) ID Date Data Source [id number] 12/03/2020 12:19:00 PM EST [facility] [address] [place] [address] PHONE: [phone] FAX: [phone] Name .................. : TOSIN WONG Nicole Acct Number.................. : [id number] ROOM. ................. : TR-08 MR Number ................... : [id number] Stay type ............. : E/R Discharge Date......... ... : Admit Date ......... : 12/01/20 Admit Phys .................... : LETICIA Burleson Date of ....... : 1990 Family Phys ................... : NON STAFF Phone .................. : [phone] Age ................................ : 30 Film# .................. .:[id number] Sex ................................. : M Unsigned transcriptions are preliminary reports and do not represent a medical or legal document CHEST 1 VIEW 11481 COMPLETE:12/01/20 15:46 2810 Reason(s): syncope CHEST X-RAY: [...] for: EMERGENCY DEPT via modem Copy for: [address] [place] [address] REC Page 1 of 1 Name Value Range Interpretation Code Description Data Marifer rce(s) Supporting Document(s) ID Date Data Source [id number] 12/03/2020 12:18:00 [place] [address] PHONE: [phone] FAX: [phone] Name .................. : TOSIN WONG Nicole Acct Number.................. : [id number] ROOM. ................. : TR-08 Number ................... : [id number] Stay type ............. : E/R Discharge Date......... ... : Admit Date ......... : 12/01/20 Admit Phys .................... : LETICIA Burleson Date of ....... : 1990 Family Phys ................... : NON STAFF Phone .................. : [phone] Age ................................ : 30 Film# .................. .:[id number] Sex ................................. : M Unsigned transcriptions are preliminary reports and do not represent a medical or legal document CT HEAD W/O CONTRAST [id number] COMPLETE:12/01/20 15:46 2809 Reason(s): syncope CT SCAN [...] for: EMERGENCY DEPT via modem Copy for: [address] [place] [address] REC Page 1 of 1 Name Value Range Interpretation Code Description Data Marifer rce(s) Supporting Document(s) ID Date Data Source [id number] 12/03/2020 12:18:00 PM [facility] [address] [place] [address] PHONE: [phone] FAX: [phone] Name .................. : TOSIN Rivera Acct Number.................. : [id number] ROOM. ................. : TR-08 MR Number ................... : [id number] Stay type ............. : E/R Discharge Date......... ... : Admit Date ......... : 12/01/20 Admit Phys .................... : LETICIA Burleson Date of ....... : 1990 Family Phys ................... : NON STAFF Phone .................. : [phone] Age ................................ : 30 Film# .................. .:[id number] Sex ................................. : M Unsigned transcriptions are preliminary reports and do not represent a medical or legal document DOPPLER UNILATERAL VENOUS [id number] COMPLETE:12/01/20 17:32 2812 Reason(s): Has known DVT [...] rce(s) Supporting Document(s) ID Date Data Source [id number] 12/03/2020 06:48:00 AM EST [facility] (Dylan Shi [...] >32 mL/min Normal ID Date Data Source [id number] 12/03/2020 06:48:00 AM EST [facility] (Dylan Shi [...] (Dylan Shi MD) ID Date Data Source [id number] 12/03/2020 07:29:00 AM EST [facility] Name Value Range Interpretation Code Description Data Marifer rce(s) Supporting Document(s) COMPREHENSIVE METABOLIC PANEL [facility] COMPREHENSIVE METABOLIC PANEL Sodium [Moles/volume] in Serum or Plasma 140 mEq/L 134 - 153 [facility] Potassium [Moles/volume] in Serum or Plasma 4.1 mEq/L 3.6 - 5.0 [facility] Chloride [Moles/volume] in Serum or Plasma 105 mEq/L 98 - 107 [facility] Carbon dioxide, total [Moles/volume] in Serum or Plasma 28 MEQ/L 22 - 30 [facility] Glucose [Mass/volume] in Serum or Plasma 100 MG/DL 70 - 99 H [facility] BUN 10 MG/DL 7 - 21 [facility] Creatinine [Mass/volume] in Serum or Plasma 0.8 MG/DL 0.7 - 1.5 [facility] BUN/CREAT 13 8 - 27 [facility] al Protein [Mass/volume] in Serum or Plasma 6.9 G/DL 6.3 - 8.2 [facility] Albumin [Mass/volume] in Serum or Plasma 4.4 G/DL 3.9 - 5.0 [facility] Globulin [Mass/volume] in Serum by calculation 2.5 GM/DL 2.4 - 3.2 [facility] A/G RATIO 1.8 0.8 - 2.0 [facility] Calcium [Mass/volume] in Serum or Plasma 9.3 MG/DL 8.4 - 10.2 [facility] Bilirubin.total [Mass/volume] in Serum or Plasma <0.7 MG/DL 0.2 - 1.3 [facility] Alkaline phosphatase [Enzymatic activity/volume] in Serum or Plasma 57 U/L 38 - 126 [facility] Aspartate aminotransferase [Enzymatic activity/volume] in Serum or Plasma 18 U/L 5 - 40 [facility] Alanine aminotransferase [Enzymatic activity/volume] in Seru m or Plasma 18 U/L 7 - 56 [facility] Anion gap 3 in Serum or Plasma 7.0 mmol/L 8.0 - 16.0 L [facility] AGE 30 yrs [facility] NON-AA GFR >60 mL/min [facility] ital AFR AMER GFR >60 mL/min [facility] Male GFR In [...] >32 mL/min Normal ID Date Data Source [id number] 12/03/2020 07:12:00 AM EST [facility] Name Value Range Interpretation Code Description Data Marifer rce(s) Supporting Document(s) CBC W/AUTOMATED DIFF [facility] COMPLETE BLOOD COUNT Leukocytes [#/volume] in Blood by Automated count 5.2 10^3/uL 4.2 - 1 1.0 [facility] Erythrocytes [#/volume] in Blood by Automated count 4.44 10^6/uL 4. 50 - 6.30 L [facility] Hemoglobin [Mass/volume] in Blood 13.3 g/dL 14.0 - 16.0 L [facility] Hematocrit [Volume Fraction] of Blood by Automated count 39.1 % 4 1.0 - 51.0 L [facility] Erythrocyte mean corpuscular volume [Entitic volume] by Auto mated count 88.1 fL 80.0 - 94.0 [facility] Erythrocyte mean corpuscular hemoglobin [Entitic mass] by Automated count 30.0 pg 27.0 - 34.0 [facility] Erythrocyte mean corpuscular hemoglobin concentration [Mass/volume] by Automated count 34.0 g/dL 31.0 - 36.0 [facility] Erythrocyte distribution width [Ratio] by Automated count 12.3 % 11.5 - 14.8 [facility] Platelets [#/volume] in Blood by Automated count 185 10^3/uL 150 - 45 0 [facility] Platelet mean volume [Entitic volume] in Blood by Automated count 10.2 fL 7.4 - 10.4 [facility] Neutrophils/100 leukocytes in Blood by Automated count 41.3 % 37. 0 - 80.0 [facility] Lymphocytes/100 leukocytes in Blood by Manual count 48.2 % 25.0 - 40.0 H [facility] Monocytes/100 leukocytes in Blood by Automated count 7.8 % 3.0 - 8.0 [facility] Eosinophils/100 leukocytes in Blood by Automated count 2.1 % 0.0 - 7.0 [facility] Basophils/100 leukocytes in Blood by Automated count 0.4 % 0.0 - 2.0 [facility] %IG 0.2 % 0.0 - 0.0 [facility] %NRBC 0.0 % 0.0 - 0.0 [facility] al Neutrophils [#/volume] in Blood by Automated count 2.16 10^3/uL 2.00 - 6.90 [facility] Lymphocytes [#/volume] in Blood by Automated count 2.52 10^3/uL 0.60 - 3.40 [facility] Monocytes [#/volume] in Blood by Automated count 0.41 10^3/uL 0.00 - 0.90 [facility] Eosinophils [#/volume] in Blood by Automated count 0.11 10^3/uL 0.00 - 0.70 [facility] Basophils [#/volume] in Blood by Automated count 0.02 10^3/uL 0.00 - 0.20 [facility] #IG 0.01 10^3/uL 0.00 - 0.10 [facility] ospital #NRBC 0.00 10^3/uL 0.00 - 0.00 [facility] MANUAL DIFF NOT INDICATED [facility] RBC MORPH NOT INDICATED [facility] spital ID Date Data Source [id number] 12/02/2020 12:36:00 [place] [address] RESPIRATORY CARE REPORT ==== ---------NAME------- NUMBER SEX AGE ADMIT DISC. XRAY# F/C RHONDA WONG N [id number] M 30 12/01/20 [id number] SB4 O/P DATE OF : 1990 M/R# [id number] #: [id number] LOCATION: EMERGENCY DEPT EKG [id number] COMP LETE:12/02/20 08:14 ED [id number] PHYSICIAN: AMARJIT Name Value Range Interpretation Code Description Data Marifer rce(s) Supporting Document(s) ID Date Data Source [id number] 12/02/2020 12:35:00 PM [address] [place] [address] RESPIRATORY CARE REPORT ==== ---------NAME------- NUMBER SEX AGE ADMIT DISC. XRAY# F/C RHONDA WONG N [id number] M 30 12/01/20 [id number] SB4 O/P DATE OF : 1990 M/R# [id number] #: [id number] LOCATION: EMERGENCY DEPT [facility] [address] [facility] LETE:12/02/20 06:27 ED [id number] PHYSICIAN: AMARJIT MACE CH Name Value Range Interpretation Code Description Data Marifer rce(s) Supporting Document(s) ID Date Data Source [id number] 12/02/2020 04:48:00 AM [facility] Name Value Range Interpretation Code Description Data Marifer rce(s) Supporting Document(s) TROPONIN T <0.01 NG/ML 0.00 - 0.10 [facility] ospital TROPONIN T0.1 ng/ml Recommended as the c linical threshold value forTroponin T. ID Date Data Source [id number] 12/02/2020 04:47:00 AM [facility] Name Value Range Interpretation Code Description Data Marifer rce(s) Supporting Document(s) BASIC METABOLIC PANEL [facility] BASIC METABOLIC PANEL Sodium [Moles/volume] in Serum or Plasma 140 mEq/L 134 - 153 [facility] Potassium [Moles/volume] in Serum or Plasma 3.8 mEq/L 3.6 - 5.0 [facility] Chloride [Moles/volume] in Serum or Plasma 106 mEq/L 98 - 107 [facility] Carbon dioxide, total [Moles/volume] in Serum or Plasma 27 MEQ/L 22 - 30 [facility] Glucose [Mass/volume] in Serum or Plasma 100 MG/DL 70 - 99 H [facility] BUN 12 MG/DL 7 - 21 [facility] al Creatinine [Mass/volume] in Serum or Plasma 0.9 MG/DL 0.7 - 1.5 [facility] BUN/CREAT 13 8 - 27 [facility] al Calcium [Mass/volume] in Serum or Plasma 9.1 MG/DL 8.4 - 10.2 [facility] Anion gap 3 in Serum or Plasma 7.0 mmol/L 8.0 - 16.0 L [facility]GE 30 [facility] AMER GFR >60 mL/min [facility] spital NON-AA GFR >60 mL/min [facility] Male GFR Inter prentation 20-49 [...] >32 mL/min Normal ID Date Data Source [id number] 12/02/2020 04:23:00 AM EST [facility] Name Value Range Interpretation Code Description Data Marifer rce(s) Supporting Document(s) CBC W/AUTOMATED DIFF [facility] COMPLETE BLOOD COUNT Leukocytes [#/volume] in Blood by Automated count 5.4 10^3/uL 4.2 - 1 1.0 [facility] Erythrocytes [#/volume] in Blood by Automated count 4.25 10^6/uL 4. 50 - 6.30 L [facility] Hemoglobin [Mass/volume] in Blood 12.7 g/dL 14.0 - 16.0 L [facility] Hematocrit [Volume Fraction] of Blood by Automated count 37.4 % 4 1.0 - 51.0 L [facility] Erythrocyte mean corpuscular volume [Entitic volume] by Auto mated count 88.0 fL 80.0 - 94.0 [facility] Erythrocyte mean corpuscular hemoglobin [Entitic mass] by Automated count 29.9 pg 27.0 - 34.0 [facility] Erythrocyte mean corpuscular hemoglobin concentration [Mass/volume] by Automated count 34.0 g/dL 31.0 - 36.0 [facility] Erythrocyte distribution width [Ratio] by Automated count 12.6 % 11.5 - 14.8 [facility] Platelets [#/volume] in Blood by Automated count 186 10^3/uL 150 - 45 0 [facility] Platelet mean volume [Entitic volume] in Blood by Automated count 10.3 fL 7.4 - 10.4 [facility] Neutrophils/100 leukocytes in Blood by Automated count 37.0 % 37. 0 - 80.0 [facility] Lymphocytes/100 leukocytes in Blood by Manual count 51.8 % 25.0 - 40.0 H [facility] Monocytes/100 leukocytes in Blood by Automated count 8.4 % 3.0 - 8.0 H [facility] Eosinophils/100 leukocytes in Blood by Automated count 2.0 % 0.0 - 7.0 [facility] Basophils/100 leukocytes in Blood by Automated count 0.6 % 0.0 - 2.0 [facility] %IG 0.2 % 0.0 - 0.[address] [facility] al %NRBC 0.0 % 0.0 - 0.0 [facility] al Neutrophils [#/volume] in Blood by Automated count 1.99 10^3/uL 2.00 - 6.90 L [facility] Lymphocytes [#/volume] in Blood by Automated count 2.78 10^3/uL 0.60 - 3.40 [facility] Monocytes [#/volume] in Blood by Automated count 0.45 10^3/uL 0.00 - 0.90 [facility] Eosinophils [#/volume] in Blood by Automated count 0.11 10^3/uL 0.00 - 0.70 [facility] Basophils [#/volume] in Blood by Automated count 0.03 10^3/uL 0.00 - 0.20 [facility] #IG 0.01 10^3/uL 0.00 - 0.10 [facility] ospital #NRBC 0.00 10^3/uL 0.00 - 0.00 [facility] MANUAL DIFF NOT INDICATED [facility] RBC MORPH NOT INDICATED [facility] spital ID Date Data Source [id number] 12/01/2020 02:50:00 PM EST [facility] 1 OrderSheet [facility] Emergency Department [address] [place] [address] Phone #: ext- [phone] 12/01/2020 14:49 Patient: [...] RNSymptomatic as P.A.-C;Defined by CDC) 2 OrderSheet [facility] Emergency Department [address] [place] [address] Phone #: ext- [phone] 12/01/2020 14:49 Patient: MARVIN LEAHY Sex: M : 1990 Age: 30y([id number]) (FirstTest) (NotHospitalized)(Unknown if) (NotResident inCongregate CareSetting) (NotEmployed [...] Pressure 15:46 12/01/2020 15:54 Harry 3 OrderSheet [facility] Emergency Department [address] [place] [address] Phone #: ext- [phone] 12/01/2020 14:49 Patient: MARVIN LEAHY Se x: M : 1990 Age: 30yMonitor Corey Garza RN P.A.-C;Cafe Assistant 15:46 12/01/2020 15:54 Harry(continuous) Corey Garza RN [...] rce(s) Supporting Document(s) ID Date Data Source [id number] 12/01/2020 02:50:00 PM EST [facility] 1 Medication Reconciliation Report [facility] Emergency Department [address] [place] [address] Phone #: ext- [phone] 12/01/2020 14:49 Patient: [...] the Emergency Department: 2 Medication Reconciliation Report [facility] Emergency Department [address] [place] [address] Phone #: ext- [phone] 12/01/2020 14:49 Patient: [...] rce(s) Supporting Document(s) ID Date Data Source [id number] 12/01/2020 02:50:00 PM [facility] 1 Medication Administration Record [facility] Emergency Department [address] [place] [address]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 (rest) reviewed. Patient verbalized understanding. Written instructions provided in Finnish. The patient was discharged by the physician veterinary assistant technician. He was discharged home and accompanied by side guider. He left ambulatory and via private vehicle. Household Manager driving. --15:51 11/19/20 Troy Ann RN.Locked/Released at 11/19/2020 15:51 by Troy Ann RN Name Value Range Interpretation Code Description Data Marifer rce(s) Supporting Document(s) ID Date Data Source [id number] 11/19/2020 02:16:00 PM [facility] 1 Clinical Report - Physicians/Mid Levels [facility] Emergency Department [address] [place] [address] Phone #: ext- [phone] 11/19/2020 13:54 Patient: [...] week. 2 Clinical Report - Physicians/Mid Levels [facility] Emergency Department [address] [place] [address] Phone #: ext- [phone] 11/19/2020 13:54 Patient: [...] otherwise follow up with his PCM at [facility] Patient counseled in person regarding the patient's [...] al deficit. 3 Clinical Report - Physicians/Mid [facility] Emergency Department [address] [place] [address] Phone #: ext- [phone] 11/19/2020 13:54 [id number] Sex: M : 1990 Age: 30yINSTRUCTIONS No [...] pack. Refills: 0. Substitution permitted. Pharmacy - [facility] [id number] [place] [address] ; [place] [address]. . gabapentin 100 mg capsule Take 1 capsule three times a day for 30 days -- Dispense 90 capsule. Refills: 0. Substitution permitted. [facility] [address] [facility] ; [place] [address]. . methocarbamol 500 mg tablet Take 1 tablet three times a day for 10 days -- Dispense 30 tablet. Refills: 0. Substitution permitted. Pharmacy - [facility] - [address] [facility] ; [place] [address]. . Follow-up: 4 Clinical Report - Physicians/Mid Levels [facility] Emergency Department [address] [place] [address] Phone #: ext- [phone] 11/19/2020 13:54 Patient: MARVIN LEAHY Sex: M [...] rce(s) Supporting Document(s) ID Date Data Source [id number] 11/19/2020 02:54:00 PM EST [facility] Name Value Range Interpretation Code Description Data Marifer rce(s) Supporting Document(s) [facility]IS [facility] UR[facility] SOURCE R [facility] COLOR yellow NORMAL: Yellow [facility] CLARITY cloudy NORMAL: Clear [facility] Specific gravity of Urine by Test strip 1.015 1.001 - 1.030 [facility] pH 8 5 - 9 [facility] al Glucose [Mass/volume] in Urine by Test strip NORM NORMAL: Negat xiomara [facility] Bilirubin.total [Presence] in Urine by Test strip NEG NORMAL: Negative [facility] Ketones [Presence] in Urine by Test strip NEG NORMAL: Negative [facility] Protein [Mass/volume] in Urine by Test strip NEG NORMAL: Negat xiomara [facility] Nitrite [Presence] in Urine by Test strip NEG NORMAL: Negative [facility] BLOOD 50 NORMAL: Negative A [facility] Leukocyte esterase [Presence] in Urine by Test strip NEG LLUVIA L: Negative [facility] Urobilinogen [Mass/volume] in Urine by Test strip NOR less fidelia n 1.0 mg/dL [facility] MICROSCOPIC See Below [facility] ital Erythrocytes [#/volume] in Urine by Test strip 3 - 5 NORMAL: NON E SEEN [facility] EPITHELIAL FEW NORMAL: NONE SEEN [facility] Bacteria [Presence] in Urine sediment by Light microscopy 1+ SMALL NORMAL: NONE SEEN [facility] Amorphous sediment [Presence] in Urine sediment by Light marleni roscopy 3+ NORMAL: NONE SEEN [facility] ID Date Data Source [id number] 11/14/2020 11:18:00 AM EST [facility] ([facility]) Name Value Range Interpretation Code Description Data Marifer rce(s) Supporting Document(s) Color of Urine Laboratory test result [facility] ([facility]) Appearance of Urine Laboratory test result [facility] ([facility]) Spec [place] [facility] pH of Urine by Test strip 8 [facility] NT ([facility]) Leukocytes Laboratory test result [facility] ([facility]) Nitrate [Presence] in Urine Laboratory test result [facility] ([facility]) Protein [Presence] in Urine by Test strip Laboratory test result [facility] ([facility]) Inhouse Glucose Laboratory test result [facility] ([facility]) Ketones [Presence] in Urine by Test strip Laboratory test result [facility] ([facility]) Urobilinogen Laboratory test result [facility] ([facility]) Bilirubin.total [Presence] in Urine by Test strip Laboratory test res ult [facility] ([facility]) Blood type and Indirect antibody screen panel - Blood Laboratory test result [facility] ([facility]) ID Date Data Source [id number] 10/23/2020 10:27:00 AM EST [facility] [address] [place] [address] PHONE: [phone] FAX: [phone] Name .................. : TOSIN Rivera Acct Number.................. : [id number] ROOM. ................. : TR-08 MR Number ................... : [id number] Stay type ............. : E/R Discharge Date......... ... : 10/19/20 Admit Date ......... : 10/19/20 Admit Phys .................... : CHAO CANDE Date of ....... : 1990 Family Phys ................... : NON STAFF Phone .................. : [phone] Age ................................ : 30 Film# .................. .:[id number] Sex ................................. : M Unsigned transcriptions are preliminary reports and do not represent a medical or legal document CT HEAD W/O CONTRAST [id number] COMPLETE:10/19/20 19:17 NELLY 24 Reason(s): Syncope CT [...] rce(s) Supporting Document(s) ID Date Data Source [id number] 10/22/2020 09:17:00 AM EST [facility] [address] [place] [address] PHONE: [phone] FAX: [phone] Name .................. : TOSIN WONG Nicole Acct Number.................. : [id number] ROOM. ................. : TR-08 MR Number ................... : [id number] Stay type ............. : E/R Discharge Date......... ... : 10/19/20 Admit Date ......... : 10/19/20 Admit Phys .................... : CHAO CANDE Date of ....... : 1990 Family Phys ................... : NON STAFF Phone .................. : [phone] Age ................................ : 30 Film# .................. .:[id number] Sex ................................. : M Unsigned transcriptions are preliminary reports and do not represent a medical or legal document CHEST 2 VIEWS [id number] COMPLETE:10/19/20 19:17 NELLY 23 Reason(s): Syncope CHEST [...] rce(s) Supporting Document(s) ID Date Data Source [id number] 10/20/2020 09:17:00 [place] [address] RESPIRATORY CARE REPORT ==== ---------NAME------- NUMBER SEX AGE ADMIT DISC. XRAY# F/C RHONDA Rivera [id number] M 30 10/19/20 10/19/20 [id number] SB4 E/R DATE OF : 1990 M/R# [id number] PH#: [phone] TR-08 LOCATION: EMERGENCY DEPT EKG [id number] COMP LETE:10/19/20 14:52 [facility] [address] PHYSICIAN: CHAO MORENO Name Value Range Interpretation Code Description Data Marifer rce(s) Supporting Document(s) ID Date Data Source [id number] 10/19/2020 10:32:00 AM EST [facility] 1 OrderSheet [facility] Emergency Department [address] [place] [address] Phone #: ext- [phone] 10/19/2020 10:31 Patient: [...] STAT 10:56 10/19/2020 11:58 Cricket, 2 OrderSheet [facility] Emergency Department [address] [place] [address] Phone #: ext- [phone] 10/19/2020 10:31 -------- [...] InitialedBlood Pressure 10:57 10/19/2020 11:00 CricketMonitor Larry DUNCAN;Cafe Assistant 10:57 10/19/2020 11:00 Cricket(continuous) Larry DUNCAN;EKG 10:57 10/19/2020 11:00 Larry Harley R.N.;Pulse oximeter 10:57 10/19/2020 11:00 Cricket(Pj) Larry DUNCAN;Vitals 10:57 10/19/2020 11:00 Larry Harley R.N.;[Electronically signed by Rafael Harley R.N. (13:51 10/19/2020)][Electronically signed by Larry Moreno (21:52 10/19/2020)][Electronically locked by Rafael Harley R.N. (13:51 10/19/2020)] Name Value Range Interpretation Code Description Data Marifer rce(s) Supporting Document(s) ID Date Data Source [id number] 10/19/2020 10:32:00 AM EST [facility] 1 Medication Reconciliation Report [facility] Emergency Department [address] [place] [address] Phone #: [phone]- [phone] 10/19/2020 10:31 Patient: MARVIN LEAHY Sex: M [...] 90 capsule.Refills: 0. Substitution permitted.Pharmacy - [facility] [employer] - [address] [facility] ; [place] [address]. .Medrol (Duyen) 4 mg tablets in a dose pack Take 1 tablet as directed for 6 days -- Dispense 1 pack. 2 Medication Reconciliation Report [facility] Emergency Department [address] [place] [address] Phone #: ext- [phone] 10/19/2020 10:31 -- Patient: MARVIN LEAHY Sex: M : 1990 Age: 30yRefills: 0. Substitution permitted.Pharmacy - [facility] [employer] - [address] [facility] ; [place] [address]. . -- PERLA Cisse Name Value Range Interpretation Code Description Data Marifer rce(s) Supporting Document(s) ID Date Data Source [id number] 10/19/2020 10:32:00 AM EST [facility] 1 Medication Administration Record [facility] Emergency Department [address] [place] [address] Phone #: ext- [phone] 10/19/2020 10:31 Patient: [...] rce(s) Supporting Document(s) ID Date Data Source [id number] 10/19/2020 10:32:00 AM EST [facility] 1 General Instructions [facility] Emergency Department [address] [place] [address] Phone #: ext- [phone] 10/19/2020 10:31 Patient: [...] Dispense 90 capsule.Refills: 0. Substitution permitted.Pharmacy - [facility] [place]umb [employer] [address] [facility] ; [place] [address]. .Medrol (Duyen) 4 mg tablets in a dose pack Take 1 tablet as directed for 6 days -- Dispense 1 pack.Refills: 0. Substitution permitted.Pharmacy - [facility] [employer] - [address] [facility] ; [place] [address]. .Understanding of the discharge instructions verbalized by patient.Follow-up with: Dylan Shi MD, Cardiology, , [address] [place] [address], [address] Follow up. Call for the next available appointment. Reason for referral: evaluation, treatment and seeyour PCM for referral to Cardiology for further evaluation. Summary of care provided to patient.Follow-up with: Benito Willett M.D., Urology, , [address] [place] [address], [address] Follow up. Call for the next available appointment. Reason for referral: evaluation, treatment and seeyour PCM for referral to Urology, evaluate Hematuria and Micurition Syncope. Summary of care providedto patient. ADDITIONAL INFORMATIONFainting: Vagal Reaction 2 General Instructions [facility] Emergency Department [address] [place] [address] Phone #: ext- [phone] 10/19/2020 10:31 Patient: [...] very rapidly, very slowly, or irregularly (palpitations) [id number] [employer]. [address] [place] [address]. All rights reserved. This information is not intended as asubstitute for professional medical care. Always follow your healthcare professional's instructions.High Blood Pressure, To Be Confirmed, No Treatment 3 General Instructions [facility] Emergency Department [address] [place] [address] Phone #: ext- [phone] 10/19/2020 10:31 Patient: [...] monitors at most pharmacies. 4 General Instructions [facility] Emergency Department [address] [place] [address] Phone #: ext- [phone] 10/19/2020 10:31 Patient: MARVIN LEAHY Sex: M : 1990 Age: 30yThe [place] Association advises the following guidelines for [...] to get medical advice 5 General Instructions [facility] Emergency Department [address] [place] [address] Phone #: [phone]- [phone] 10/19/2020 10:31 Patient: MARVIN LEAHY Sex: M : 1990 Age: 30yCall your healthcare provider right away if any of these occur: Severe headache Throbbing or rushing sound in the ears Nosebleed Sudden severe pain in your belly (abdomen) Extreme drowsiness, confusion, or fainting Dizziness or dizziness with spinning feeling (vertigo) [employer]. [address] [place] [address], [place] [address]. All rights reserved. This information is not intended as asubstitute for professional medical care. Always follow your healthcare prof richard's instructions.Back Pain (Acute or Chronic) 6 General Instructions [facility] Emergency Department [address] [place] [address] Phone #: ext- [phone] 10/19/2020 10:31 Patient: [...] this home care advice: 7 General Instructions [facility] Emergency Department [address] [place] [address] Phone #: ext- [phone] 10/19/2020 10:31 Patient: [...] or are takingother medicines. You may use [id number]-[id number] medicine as directed on the bottle to [...] may affect your care 8 General Instructions [facility] Emergency Department [address] [place] [address] Phone #: ext- [phone] 10/19/2020 10:31 Patient: [...] Numbness in the groin or genital area [phone] [employer] [place] [address], [place] [address]. All rights reserved. This information is not intended as asubstitute for professional medical care. Always follow your healthcare professional's instructions.Blood in the Urine 9 General Instructions [facility] Emergency Department [address] [place] [address] Phone #: ext- [phone] 10/19/2020 10:31 Patient: [...] using these medicines.Follow-up care 10 General Instructions [facility] Emergency Department [address] [place] [address] Phone #: ext- [phone] 10/19/2020 10:31 Patient: [...] the nose or gums or easy bruising [phone] [employer]. [address] [place] [address]. All rights reserved. This information is not [...] rce(s) Supporting Document(s) ID Date Data Source [id number] 10/19/2020 10:32:00 AM EST [facility] 1 Clinical Report - Nurses [facility] Emergency Department [address] [place] [address] Phone #: ext- [phone] 10/19/2020 10:31 Patient: [...] killing yourself?". 2 Clinical Report - Nurses [facility] Emergency Department [address] [place] [address] Phone #: ext- [phone] 10/19/2020 10:31 Patient: [...] 10/19/20 Rafael Harley R.N. Patient returned from DC by wheelchair with tech. --11:59 10/19/20 Rafael Harley R.N. Reassurance given to the patient. --11:59 10/19/20 Rafael Harley R.N. Bed placed in lowest position. Brakes of bed on. --13:50 10/19/20 Rafael Harley R.N.DISPOSITION / DISCHARGE No learning barriers present. Discharge instructions provided and reviewed with the patient. The patient was discharged by the physician veterinary assistant technician. He was discharged home. He left ambulatory and via private vehicle. Patient driving. --13:50 10/19/20 Rafael Harley R.N. 13:50 10/19/20. BP: 124/66. MAP: 85. HR: 62. RR: 18. O2 saturation: deferred. Temp: deferred. Pain level now: 12/19. --13:50 10/19/20 Rafael Harley R.N. Departure time: 13:51 10/19/2020. --13:51 10/19/20 Rafael Harley R.N. 3 Clinical Report - Nurses [facility] Emergency Department [address] [place] [address] Phone #: ext- [phone] 10/19/2020 10:31 Patient: MARVIN LEAHY Sex: M : 1990 Age: 30yLocked/Released at 10/19/2020 13:51 by Rafael Harley R.N. Name Value Range Interpretation Code Description Data Marifer rce(s) Supporting Document(s) ID Date Data Source [id number] 10/19/2020 10:32:00 AM EST [facility] 1 Clinical Report - Physicians/Mid Levels [facility] Emergency Department [address] [place] [address] Phone #: ext- [phone] 10/19/2020 10:31 Patient: [...] use. 2 Clinical Report - Physicians/Mid Levels [facility] Emergency Department [address] [place] [address] Phone #: ext- [phone] 10/19/2020 10:31 Patient: MARVIN LEAHY Sex: M [...] 0.20) 3 Clinical Report - Physicians/Mid Levels [facility] Emergency Department [address] [place] [address] Phone #: ext- [phone] 10/19/2020 10:31 Patient: [...] Male GFR Interprentation 20-49 yrs >60 mL/min Kkytey36-95 yrs >56 mL/min Normal 60-69 yrs >49 mL/min Normal 70-79yrs>42 mL/min Normal 80 and above >35 mL/min Normal Female GFRInterpretation 20-39 yrs >60 mL/min Normal 40-49 yrs >58 mL/minNormal 50-59 yrs >51 mL/min Normal 60-69 yrs >45 mL/min Nixlpg46-54 yrs >39 mL/min Normal 80 and above [...] VenousThrombosis, Pulmonary Embolus, Tissue heart valves, Acute OK Atrial Fibrillation, Valvular heart diseaseand recurrent Systemic Embolism. -International Normalized Ratio (INR): 2.5 - 3.5 forMechanical Prosthetic valve.Lactic Acid: (DERRICK: 10/19/2020 11:41) ( [facility] 10/19/2020 11:52) Final results Test Result Flag Units (Reference) LACTIC ACID 1.0 MMOL/L (0.2 - 2.2)Lipase: (DERRICK: 10/19/2020 11:41) ( [facility] 10/19/2020 12:33) Final results Test Result Flag Units (Reference) LIPASE 35 U/L (13 - 60) 4 Clinical Report - Physicians/Mid Levels [facility] Emergency Department [address] [place] [address] Phone #: ext- [phone] 10/19/2020 10:31 Patient: MARVIN LEAHY Sex: M : 1990 Age: 30y Magnesium: (DERRICK: 10/19/2020 11:41) ( [facility] 10/19/2020 12:33) Final results Test Result Flag Units (Reference) MAGNESIUM 2.1 MG/DL (1.7 - 2.2) Troponin-T: (DERRICK: 10/19/2020 11:41) ( [facility] 10/19/2020 13:24) Final results Test Result Flag [...] hematuria 5 Clinical Report - Physicians/Mid Levels [facility] Emergency Department [address] [place] [address] Phone #: ext- [phone] 10/19/2020 10:31 [id number] Sex: M : 1990 Age: 30y Uncontrolled essential hypertension. Chronic nontraumatic lumbar back pain.INSTRUCTIONS No strenuous activity until released. Warnings: Further evaluation is necessary. It is very important to follow up with a healthcare provider. Prescription Medications: gabapentin 100 mg capsule Take 1 capsule three times a day for 30 days -- Dispense 90 capsule. Refills: 0. Substitution permitted. [facility] [address] ; [place] [address]. . Medrol (Duyen) 4 mg tablets in a dose pack Take 1 tablet as directed for 6 days -- Dispense 1 pack. Refills: 0. Substitution permitted. Pharmacy - [facility] - [address] ; [place] [address]. FaxNumber: . Understanding of the discharge instructions verbalized by patient. Follow- up with: Dylan Shi MD, Cardiology, , [address] [place] [address], [facility] Follow up. Call for the next available appointment. Reason for referral: evaluation, treatment and see your PCM for referral to Cardiology for further evaluation. Summary of care provided to patient. Follow-up with: Benito Willett M.D., Urology, , [address] [place] [address], [facility] Follow up. Call for the next available appointment. Reason for referral: evaluation, treatment and see your PCM for referral to Urology, evaluate Hematuria and Micurition Syncope. Summary of care provided to patient.(Electronically signed by PERLA Cisse 10/19/2020 21:52) Name Value Range Interpretation Code Description Data Marifer rce(s) Supporting Document(s) ID Date Data Source [id number] 10/19/2020 01:24:00 PM EST [facility] Name Value Range Interpretation Code Description Data Marifer rce(s) Supporting Document(s) TROPONIN T <0.01 NG/ML 0.00 - 0.10 [facility] ospital TROPONIN T0.1 ng/ml Recommended as the c linical threshold value Eloyn Bola. ID Date Data Source [id number] 10/19/2020 12:33:00 PM EST [facility] Name Value Range Interpretation Code Description Data Marifer rce(s) Supporting Document(s) COMPREHENSIVE METABOLIC PANEL [facility] COMPREHENSIVE METABOLIC PANEL Sodium [Moles/volume] in Serum or Plasma 140 mEq/L 134 - 153 [facility] Potassium [Moles/volume] in Serum or Plasma 4.1 mEq/L 3.6 - 5.0 [facility] Chloride [Moles/volume] in Serum or Plasma 104 mEq/L 98 - 107 [facility] Carbon dioxide, total [Moles/volume] in Serum or Plasma 33 MEQ/L 22 - 30 H [facility] Glucose [Mass/volume] in Serum or Plasma 66 MG/DL 65 - 110 [facility] BUN 13 MG/DL 7 - 21 [facility] Creatinine [Mass/volume] in Serum or Plasma 1.0 MG/DL 0.7 - 1.5 [facility] BUN/CREAT 13 8 - 27 [facility] al Protein [Mass/volume] in Serum or Plasma 8.0 G/DL 6.3 - 8.2 [facility] Albumin [Mass/volume] in Serum or Plasma 4.4 G/DL 3.9 - 5.0 [facility] Globulin [Mass/volume] in Serum by calculation 3.6 GM/DL 2.4 - 3.2 H [facility] A/G RATIO 1.2 0.8 - 2.0 [facility] Calcium [Mass/volume] in Serum or Plasma 10.0 MG/DL 8.4 - 10.2 [facility] Bilirubin.total [Mass/volume] in Serum or Plasma <0.7 MG/DL 0.2 - 1.3 [facility] Alkaline phosphatase [Enzymatic activity/volume] in Serum or Plasma 63 U/L 38 - 126 [facility] Aspartate aminotransferase [Enzymatic activity/volume] in Serum or Plasma 28 U/L 5 - 40 [facility] Alanine aminotransferase [Enzymatic activity/volume] in Seru m or Plasma 30 U/L 7 - 56 [facility] Anion gap 3 in Serum or Plasma 3.0 mmol/L 8.0 - 16.0 L [facility] AGE [address] [facility] NON-AA GFR >60 mL/min [facility] AFR AMER GFR >60 mL/min [facility] Male GFR In [...] >32 mL/min Normal ID Date Data Source [id number] 10/19/2020 12:33:00 PM [facility] Name Value Range Interpretation Code Description Data Marifer rce(s) Supporting Document(s) Thyrotropin [Units/volume] in Serum or Plasma by Detec tion limit <= 0.05 mIU/L 1.61 uIU/mL 0.47 - 5.01 [facility] ID Date Data Source [id number] 10/19/2020 12:33:00 PM [facility] Name Value Range Interpretation Code Description Data Marifer rce(s) Supporting Document(s) Magnesium [Mass/volume] in Serum or Plasma 2.1 MG/DL 1.7 - 2.2 [facility] ID Date Data Source [id number] 10/19/2020 12:33:[address] [facility] Value Range Interpretation Code Description Data Marifer rce(s) Supporting Document(s) Lipase [Enzymatic activity/volume] in Serum or Plasma 35 U/L 13 - 60 [facility] ID Date Data Source [id number] 10/19/2020 11:57:00 AM [facility] Name Value Range Interpretation Code Description Data Marifer rce(s) Supporting Document(s) Prothrombin time (PT) 14.6 SECONDS 11.0 - 15.5 [facility] INR in Platelet poor plasma by Coagulation assay 1.08 0.93 - 1. 23 [facility] aPTT in Blood by Coagulation assay 28.1 SECONDS 24.8 - 36.7 [facility] \\BLDo\\INR INTERPRETATION\\BLDx\\ Therapeutic range for Coumadin and related oral anticoagulants. - International Normalized Ratio (INR): 2.0 - 3.0 for Venous Thrombosis, Pulmonary Embolus, Tissue heart valves, Acute OK Atrial Fibrillation, Valvular heart disease and recurrent Systemic Embolism. - International Normalized Ratio (INR): 2.5 - 3.5 for Mechanical Prosthetic valve. ID Date Data Source [id number] 10/19/2020 11:56:00 AM EST [facility] Name Value Range Interpretation Code Description Data Marifer rce(s) Supporting Document(s) CBC W/AUTOMATED DIFF [facility] COMPLETE BLOOD COUNT Leukocytes [#/volume] in Blood by Automated count 4.6 10^3/uL 4.2 - 1 1.0 [facility] Erythrocytes [#/volume] in Blood by Automated count 4.94 10^6/uL 4. 50 - 6.30 [facility] Hemoglobin [Mass/volume] in Blood 14.6 g/dL 14.0 - 16.0 [facility] Hematocrit [Volume Fraction] of Blood by Automated count 43.6 % 4 1.0 - 51.0 [facility] Erythrocyte mean corpuscular volume [Entitic volume] by Auto mated count 88.3 fL 80.0 - 94.0 [facility] Erythrocyte mean corpuscular hemoglobin [Entitic mass] by Automated count 29.6 pg 27.0 - 34.0 [facility] Erythrocyte mean corpuscular hemoglobin concentration [Mass/volume] by Automated count 33.5 g/dL 31.0 - 36.0 [facility] Erythrocyte distribution width [Ratio] by Automated count 12.2 % 11.5 - 14.8 [facility] Platelets [#/volume] in Blood by Automated count 196 10^3/uL 150 - 45 0 [facility] Platelet mean volume [Entitic volume] in Blood by Automated count 10.4 fL 7.4 - 10.4 [facility] Neutrophils/100 leukocytes in Blood by Automated count 46.2 % 37. 0 - 80.0 [facility] Lymphocytes/100 leukocytes in Blood by Manual count 41.5 % 25.0 - 40.0 H [facility] Monocytes/100 leukocytes in Blood by Automated count 9.2 % 3.0 - 8.0 H [facility] Eosinophils/100 leukocytes in Blood by Automated count 2.0 % 0.0 - 7.0 [facility] Basophils/100 leukocytes in Blood by Automated count 0.7 % 0.0 - 2.0 [facility] %IG 0.4 % 0.0 - 0.[address] [facility] %NRBC 0.0 % 0.0 - 0.0 [facility] al Neutrophils [#/volume] in Blood by Automated count 2.12 10^3/uL 2.00 - 6.90 [facility] Lymphocytes [#/volume] in Blood by Automated count 1.90 10^3/uL 0.60 - 3.40 [facility] Monocytes [#/volume] in Blood by Automated count 0.42 10^3/uL 0.00 - 0.90 [facility] Eosinophils [#/volume] in Blood by Automated count 0.09 10^3/uL 0.00 - 0.70 [facility] Basophils [#/volume] in Blood by Automated count 0.03 10^3/uL 0.00 - 0.20 [facility] #IG 0.02 10^3/uL 0.00 - 0.10 [facility] #NRBC 0.00 10^3/uL 0.00 - 0.00 [facility] MANUAL DIFF NOT INDICATED [facility] RBC MORPH NOT INDICATED [facility] ID Date Data Source [id number] 10/19/2020 11:52:00 AM EST [facility] Name Value Range Interpretation Code Description Data Marifer rce(s) Supporting Document(s) Lactate [Moles/volume] in Serum or Plasma 1.0 MMOL/L 0.2 - 2.2 [facility] ID Date Data Source [id number] 10/19/2020 12:26:00 PM EST [facility] Name Value Range Interpretation Code Description Data Marifer rce(s) Supporting Document(s) URINALYSIS [facility] albin URINALYSIS SOURCE R [facility] COLOR yellow NORMAL: Yellow [facility] CLARITY clear NORMAL: Clear [facility] Specific gravity of Urine by Test strip 1.020 1.001 - 1.030 [facility] pH 7 5 - 9 [facility] Glucose [Mass/volume] in Urine by Test strip NORM NORMAL: Negat [facility] Bilirubin.total [Presence] in Urine by Test strip NEG NORMAL: Negative [facility] Ketones [Presence] in Urine by Test strip NEG NORMAL: Negative [facility] Protein [Mass/volume] in Urine by Test strip NEG NORMAL: Negat [facility] Nitrite [Presence] in Urine by Test strip NEG NORMAL: Negative [facility] BLOOD 10 NORMAL: Negative [facility] Leukocyte esterase [Presence] in Urine by Test strip NEG LLUVIA L: Negative [facility] Urobilinogen [Mass/volume] in Urine by Test strip NOR less fidelia n 1.0 mg/dL [facility] MICROSCOPIC See Below [facility] Erythrocytes [#/volume] in Urine by Test strip 1 - 3 NORMAL: NON E SEEN [facility] ID Date Data Source [id number] 09/18/2020 08:57:00 AM EST [facility] [address] [place] [address] PHONE: [phone] FAX: [phone] Name .................. : TOSIN Rivera Acct Number.................. : [id number] ROOM. ................. : TR-07 MR Number ................... : [id number] Stay type ............. : E/R Discharge Date......... ... : Admit Date ......... : 09/17/20 Admit Phys .................... : SAMANTHA OLVERA Date of ....... : 1990 Family Phys ................... : Phone .................. : [phone] Age ................................ : 30 Film# .................. .:[id number] Sex ................................. : M Unsigned transcriptions are preliminary reports and do not represent a medical or legal document CT LUMBAR SP W/O CONT [id number] COMPLETE:09/17/20 09:16 22162 Reason(s): exacerbation of left lower back pain, [...] 710 MED REC Page 1 of 2 [facility] [address] [place] [address] PHONE: [phone] FAX: [phone] Name .................. : TOSIN Rivera Acct Number.................. : [id number] ROOM. ................. : TR-07 MR Number ................... : [id number] Stay type ............. : E/R Discharge Date......... ... : Admit Date ......... : 09/17/20 Admit Phys .................... : SAMANTHA OLVERA Date of ....... : 1990 Family Phys ................... : Phone .................. : [phone] Age ................................ : 30 Film# .................. .:[id number] Sex ................................. : M Unsigned transcriptions are preliminary reports and do not represent a medical or legal document CT LUMBAR SP W/O CONT [id number] COMPLETE:09/17/20 09:16 22739 Reason(s): exacerbation of left lower back pain, soft tissue swelling, spas DISCHARGED Page 2 of 2 Name Value Range Interpretation Code Description Data Marifer rce(s) Supporting Document(s) ID Date Data Source [id number] 09/17/2020 08:46:00 AM EST [facility] 1 OrderSheet [facility] Emergency Department [address] [place] [address] Phone #: [phone]- [phone] 09/17/2020 08:44 Patient: MARVIN LEAHY Sex: M [...] rce(s) Supporting Document(s) ID Date Data Source [id number] 09/17/2020 08:46:00 AM [facility] 1 Medication Reconciliation Report [facility] Emergency Department [address] [place] [address] Phone #: ext- [phone] 09/17/2020 08:44 Patient: MARVIN LEAHY Sex: M [...] tablet. Refills: 0. Substitution permi tted.Pharmacy - [facility] [phone] ; [place] [address]. . -- Evelio Luna M.D. Name Value Range Interpretation Code Description Data Marifer rce(s) Supporting Document(s) ID Date Data Source [id number] 09/17/2020 08:46:00 AM [facility] 1 Medication Administration Record [facility] Emergency Department [address] [place] [address] Phone #: ext- [phone] 09/17/2020 08:44 Patient: MARVIN LEAHY Sex: M [...] rce(s) Supporting Document(s) ID Date Data Source [id number] 09/17/2020 08:46:00 AM EST [facility] 1 General Instructions [facility] Emergency Department [address] [place] [address] Phone #: ext- [phone] 09/17/2020 08:44 Patient: MARVIN LEAHY Sex: M [...] 12 tablet. Refills: 0. Substitution permitted.Pharmacy - [facility] [phone] ; [place] [address]. .Follow-up:Return to the emergency department as needed. [...] to plan of care. 2 General Instructions [facility] Emergency Department [address] [place] [address] Phone #: ext- [phone] 09/17/2020 08:44 Patient: MARVIN LEAHY Sex: M [...] can cause muscle spasm. 3 General Instructions [facility] Emergency Department [address] [place] [address] Phone #: ext- [phone] 09/17/2020 08:44 Patient: [...] and pain. Wrap the 4 General Instructions [facility] Emergency Department [address] [place] [address] Phone #: ext- [phone] 09/17/2020 08:44 Patient: [...] or are takingother medicines. You may use bbcw-her-cowaqyz medicine as directed on the bottle to [...] any new findingsthat may affect your care.Call [phone] if any of the following occur: Trouble breathing Confusion Very drowsy or trouble awakening Fainting or loss of consciousness 5 General Instructions [facility] Emergency Department [address] [place] [address] Phone #: [phone]- [phone] 09/17/2020 08:44 Patient: MARVIN LEAHY Sex: M : 1990 Age: 30y Rapid or very slow heart rate Loss of bowel or bladder controlWhen to seek medical adviceCall your healthcare provider right away if any of these occur: Pain becomes worse or spreads to your legs Weakness or numbness in one or both legs Numbness in the groin or genital area [id number] [employer] [address] [place] [address], [place] [address]. All rights reserved. This information is not [...] rce(s) Supporting Document(s) ID Date Data Source [id number] 09/17/2020 08:46:00 AM EST [facility] 1 Clinical Report - Nurses [facility] Emergency Department [address] [place] [address] Phone #: ext- [phone] 09/17/2020 08:44 Patient: [...] leg pain. 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 --08:51 09/17/20 Jennifer aNgy R.N.DVT - Deep Venous Thrombosis: Onset 08/07/2020. --09:21 09/17/20 Evelio Luna M.D.The following entry was modified by Evelio Luna M.D., 09:21 09/17/20 2 Clinical Report - Nurses [facility] Emergency Department [address] [place] [address] Phone #: ext- [phone] 09/17/2020 08:44 Patient: [...] pedal pulses 3 Clinical Report - Nurses [facility] Emergency Department [address] [place] [address] Phone #: ext- [phone] 09/17/2020 08:44 Patient: MARVIN LEAHY Sex: M [...] RR: 16. O2 saturation: 99%. 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 --09:35 09/17/20 Jennifer Nagy R.N. Patient returned by wheelchair with radiology receptionist. --09:45 09/17/20 Jennifer Nagy R.N. 09:58 09/17/2020 [...] Pain level now 04/18. --:58 09/17/20 Jennifer Nagy R.N. 4 Clinical Report - Nurses [facility] Emergency Department [address] [place] [address] Phone #: ext- [phone] 09/17/2020 08:44 Patient: [...] RR: 16. O2 saturation: 100%. --11:06 09/17/[address] [facility] Tech, Verónica, ER Tech1.DISPOSITION / DISCHARGE 12:07 09/17/20. BP: 129/84. MAP: 99. HR: 57. RR: 16. O2 saturation: 99%. Temp: 98.1 F. Pain level now: 01/16. --12:07 09/17/[address] [facility] Tech, Verónica, ER Tech1 12:12 09/17/20. [...] Patient verbalized understanding. Written instructions provided in Finnish. The patient was discharged by the physician. He was discharged home. He left ambulatory and via private vehicle. Patient driving. --12:18 09/17/20 Tom English R.N. Reviewed rest and ice instructions. Activity restrictions (rest) reviewed. --12:20 09/17/20 Tom English R.N.Locked/Released at 09/17/2020 14:16 by Tom English R.N. Name Value Range Interpretation Code Description Data Marifer rce(s) Supporting Document(s) ID Date Data Source [id number] 09/17/2020 08:46:00 AM [facility] 1 Clinical Report - Physicians/Mid Levels [facility] Emergency Department [address] [place] [address] Phone #: ext- [phone] 09/17/2020 08:44 Patient: [...] Allergies: 2 Clinical Report - Physicians/Mid Levels [facility] Emergency Department [address] [place] [address] Phone #: ext- [phone] 09/17/2020 08:44 Patient: [...] improved; 3 Clinical Report - Physicians/Mid Levels [facility] Emergency Department [address] [place] [address] Phone #: ext- [phone] 09/17/2020 08:44 Patient: [...] tablet. Refills: 0. Substitution permitted. Pharmacy - [facility] [phone] ; [place] [address]. . Follow-up: Return to the emergency department [...] care. 4 Clinical Report - Physicians/Mid Levels [facility] Emergency Department [address] [place] [address] Phone #: ext- [phone] 09/17/2020 08:44 Patient: MARVIN LEAHY Sex: M : 1990 Age: 30y(Electronically signed by Evelio Luna M.D. 09/17/2020 12:45) Name Value Range Interpretation Code Description Data Marifer rce(s) Supporting Document(s) Procedure Social History Code Duration Value Status Description Data Source(s ) Smoking 07/30/2021 12:00:00 AM EDT Never Smoker completed Never S moker eCW1 ([facility]) Smoking 07/16/2021 12:00:00 AM EDT Never Smoker completed Never S moker eCW1 ([facility]) Alcohol intake 06/07/2021 12:00:00 AM EDT Current drinker of al cohol (finding) completed Current drinker of alcohol (finding) [facility] Tobacco use and exposure 06/07/2021 12:00:00 AM EDT Never used co mpleted Never used [facility] Smoking 06/07/2021 12:00:00 AM EDT Never smoker completed Never s nmker [facility] Alcohol intake 04/19/2021 12:00:00 AM EDT Current drinker of al cohol (finding) completed Current drinker of alcohol (finding) [facility] Alcohol intake 03/22/2021 12:00:00 AM EDT Current drinker of al cohol (finding) completed Current drinker of alcohol (finding) [facility] Alcohol intake 03/07/2021 12:00:00 AM EDT Current drinker of al cohol (finding) completed Current drinker of alcohol (finding) [facility] Smoking 02/06/2021 12:00:00 AM EDT Never Smoker completed Never S moker eCW1 ([facility]) Smoking 02/06/2021 12:00:00 AM EDT Never Smoker completed Never S moker eCW1 ([facility]) Smoking 01/23/2021 12:00:00 AM EDT Never Smoked A Pipe complet ed Never Smoked A Pipe [facility] ([facility]) Smoking 01/23/2021 12:00:00 AM EDT Never Smoker completed Never S moker eCW1 ([facility]) Alcohol intake 11/22/2020 12:00:00 AM EST Current drinker of al cohol (finding) completed Current drinker of alcohol (finding) [facility] Smoking 11/15/2020 12:00:00 AM EST Never Smoker completed Never S moker eCW1 ([facility]) Smoking 10/30/2020 12:00:00 AM EST Never Smoker completed Never S moker eCW1 ([facility]) Smoking 10/30/2020 12:00:00 AM EST Never Smoker completed Never S moker eCW1 ([facility]) Smoking 10/18/2020 12:00:00 AM EST Never Smoker completed Never S moker eCW1 ([facility]) Smoking 10/18/2020 12:00:00 AM EST Never Smoker completed Never S moker eCW1 ([facility]) Smoking 10/18/2020 12:00:00 AM EST Never Smoker completed Never S moker eCW1 ([facility]) Vital Signs ID Date Data Source UNK Name Value Range Interpretation Code Description Data Source(s) Systolic blood pressure 125 mm[Hg] 125 mm[Hg] M [facility] ([facility]) Diastolic blood pressure 69 mm[Hg] 69 mm[Hg] [facility] ([facility]) Body height 68 [in_i] 68 [in_i] [facility] ([facility]) 5'8" Body weight 222.00 [lb_av] 222.00 [lb_av] [facility]) Body mass index (BMI) [Ratio] 33.8 kg/m2 33.8 k g/m2 [facility] ([facility]) [place] body weight 154 [lb_av] 154 [lb_av] [facility] ([facility]) Body weight 100.699 kg 100.699 kg [facility] ([facility]) Body surface area Derived from formula 2.14 m2 2.14 m2 [facility] ([facility]) Systolic blood pressure 122 mm[Hg] 122 mm[Hg] M [facility] ([facility]) Diastolic blood pressure 78 mm[Hg] 78 mm[Hg] [facility] ([facility]) Heart rate 69 /min 69 /min [facility] ([facility]) Body temperature 96.5 [degF] 96.5 [degF] [facility] ([facility]) Respiratory rate 16 /min 16 /min [facility] ( [facility]) Oxygen saturation in Arterial blood by Pulse oximetry 98 % 98 % [facility] ([facility]) Body weight 222.00 [lb_av] 222.00 [lb_av] [facility] T ([facility]) Body weight 100.699 kg 100.699 kg [facility] ([facility]) Body height 68 [in_i] 68 [in_i] [facility] ([facility]) 5'8" Body mass index (BMI) [Ratio] 33.8 kg/m2 33.8 k g/m2 [facility] ([facility]) Body surface area Derived from formula 2.14 m2 2.14 m2 [facility] ([facility]) Body weight 216.4 [lb_av] 216.4 [lb_av] eCW1 ([facility]) Body weight 98.16 kg 98.16 kg W1 ([facility]) Body height 68 [in_i] 68 [in_i] eCW1 ([facility]) Body mass index (BMI) [Ratio] 32.90 kg/m2 32.90 kg/m2 W1 ([facility]) Body weight 219.0 [lb_av] 219.0 [lb_av] eCW1 ([facility]) Body weight 99.34 kg 99.34 kg eCW1 ([facility]) Body height 68 [in_i] 68 [in_i] eCW1 ([facility]) Body mass index (BMI) [Ratio] 33.30 kg/m2 33.30 kg/m2 eCW1 ([facility]) Systolic blood pressure 123 mm[Hg] 123 mm[Hg] e CW1 ([facility]) Diastolic blood pressure 81 mm[Hg] 81 mm[Hg] eCW1 ([facility]) Body temperature 97.8 [degF] 97.8 [degF] [facility] ([facility]) Systolic blood pressure 120 mm[Hg] 120 mm[Hg] M [facility] ([facility]) Diastolic blood pressure 73 mm[Hg] 73 mm[Hg] [facility] ([facility]) Heart rate 83 /min 83 /min [facility] ([facility]) Respiratory rate 20 /min 20 /min [facility] ( [facility]) Oxygen saturation in Arterial blood by Pulse oximetry 97 % 97 % [facility] ([facility]) Systolic blood pressure 121 mm[Hg] 121 mm[Hg] M [facility] ([facility]) Diastolic blood pressure 70 mm[Hg] 70 mm[Hg] [facility] ([facility]) Heart rate 98 /min 98 /min [facility] ([facility]) Respiratory rate 22 /min 22 /min [facility] ( [facility]) Oxygen saturation in Arterial blood by Pulse oximetry 97 % 97 % [facility] ([facility]) Body weight 209.8 [lb_av] 209.8 [lb_av] W1 ([facility]) Body height 68 [in_i] 68 [in_i] W1 ([facility]) Body mass index (BMI) [Ratio] 31.90 kg/m2 31.90 kg/m2 W1 ([facility]) Systolic blood pressure 122 mm[Hg] 122 mm[Hg] e CW1 ([facility]) Diastolic blood pressure 80 mm[Hg] 80 mm[Hg] W1 ([facility]) Oxygen saturation in Arterial blood by Pulse oximetry 98 % 98 % [facility] ([facility]) Body weight 205.12 [lb_av] 205.12 [lb_av] [facility] T ([facility]) Body weight 93.045 kg 93.045 kg [facility] ([facility]) Systolic blood pressure 110 mm[Hg] 110 mm[Hg] M [facility] ([facility]) Diastolic blood pressure 70 mm[Hg] 70 mm[Hg] [facility] ([facility]) Heart rate 84 /min 84 /min [facility] Body temperature 97.7 [degF] 97.7 [degF] [facility] ([facility]) Respiratory rate 16 /min 16 /min [facility] ( [facility]) Body weight 209.8 [lb_av] 209.8 [lb_av] eCW1 ([facility]) Body height 68 [in_i] 68 [in_i] W1 ([facility]) Body mass index (BMI) [Ratio] 31.90 kg/m2 31.90 kg/m2 eCW1 ([facility]) Systolic blood pressure 118 mm[Hg] 118 mm[Hg] e CW1 ([facility]) Diastolic blood pressure 74 mm[Hg] 74 mm[Hg] eCW1 ([facility]) Systolic blood pressure 118 mm[Hg] 118 mm[Hg] M [facility] ([facility]) Diastolic blood pressure 61 mm[Hg] 61 mm[Hg] [facility] ([facility]) Heart rate 67 /min 67 /min [facility] ([facility]) Respiratory rate 20 /min 20 /min [facility] ( [facility]) Oxygen saturation in Arterial blood by Pulse oximetry 98 % 98 % [facility] ([facility]) Systolic blood pressure 120 mm[Hg] 120 mm[Hg] M [facility] ([facility]) Diastolic blood pressure 70 mm[Hg] 70 mm[Hg] [facility] ([facility]) Heart rate 88 /min 88 /min [facility] ([facility]) Respiratory rate 16 /min 16 /min [facility] ( [facility]) Oxygen saturation in Arterial blood by Pulse oximetry 96 % 96 % [facility] ([facility]) Body weight 205.00 [lb_av] 205.00 [lb_av] [facility] T ([facility]) Body weight 92.988 kg 92.988 kg [facility] ([facility]) Body height 68 [in_i] 68 [in_i] [facility] ([facility]) 5'8" Body mass index (BMI) [Ratio] 31.2 kg/m2 31.2 k g/m2 [facility] ([facility]) Body surface area Derived from formula 2.07 m2 2.07 m2 [facility] ([facility]) Body weight 213.00 [lb_av] 213.00 [lb_av] [facility] [...] MD) Body weight 210 [lb_av] 210 [lb_av] W1 ([facility]) Body mass index (BMI) [Ratio] 31.93 kg/m2 31.93 kg/m2 W1 ([facility]) Systolic blood pressure 113 mm[Hg] 113 mm[Hg] e CW1 ([facility]) Diastolic blood pressure 75 mm[Hg] 75 mm[Hg] eCW1 ([facility]) Body height 68 [in_i] 68 [in_i] eCW1 ([facility]) Systolic blood pressure 133 mm[Hg] 133 mm[Hg] M [facility] ([facility]) Diastolic blood pressure 75 mm[Hg] 75 mm[Hg] [facility] ([facility]) Heart rate 79 /min 79 /min [facility] ([facility]) Respiratory rate 20 /min 20 /min [facility] ( [facility]) Oxygen saturation in Arterial blood by Pulse oximetry 97 % 97 % [facility] ([facility]) Body temperature 97.3 [degF] 97.3 [degF] [facility] [...] Body weight 206.8 [lb_av] 206.8 [lb_av] W1 ([facility]) Body height 68 [in_i] 68 [in_i] W1 ([facility]) Body mass index (BMI) [Ratio] 31.44 kg/m2 31.44 kg/m2 eCW1 ([facility]) Systolic blood pressure 122 mm[Hg] 122 mm[Hg] e CW1 ([facility]) Diastolic blood pressure 78 mm[Hg] 78 mm[Hg] eCW1 ([facility]) Body weight 207.6 [lb_av] 207.6 [lb_av] eCW1 ([facility]) Body height 68 [in_i] 68 [in_i] eCW1 ([facility]) Body mass index (BMI) [Ratio] 31.56 kg/m2 31.56 kg/m2 eCW1 ([facility]) Systolic blood pressure 112 mm[Hg] 112 mm[Hg] e CW1 ([facility]) Diastolic blood pressure 72 mm[Hg] 72 mm[Hg] eCW1 ([facility]) Systolic blood pressure 110 mm[Hg] 110 mm[Hg] M [facility] ([facility]) Diastolic blood pressure 82 mm[Hg] 82 mm[Hg] [facility] ([facility]) Heart rate 87 /min 87 /min [facility] ([facility]) Body temperature 97.8 [degF] 97.8 [degF] [facility] ([facility]) Respiratory rate 16 /min 16 /min [facility] ( [facility]) Oxygen saturation in Arterial blood by Pulse oximetry 98 % 98 % [facility] ([facility]) Body weight 200.25 [lb_av] 200.25 [lb_av] [facility] T ([facility]) Body weight 90.833 kg 90.833 kg [facility] ([facility]) Body height 68 [in_i] 68 [in_i] [facility] ([facility]) 5'8" Body mass index (BMI) [Ratio] 30.4 kg/m2 30.4 k g/m2 [facility] ([facility]) Body surface area Derived from formula 2.04 m2 2.04 m2 [facility] ([facility]) ID Date Data Source [id number] 04/19/2021 01:03:17 PM EDT [facility] Name Value Range Interpretation Code Description Data Source(s) Body height Measured 67.99 in 67.99 in [facility] ID Date Data Source [id number] 04/02/2021 09:10:27 PM EDT [facility] Name Value Range Interpretation Code Description Data Source(s) WEIGHT RECORDED 200.3 lb 200.3 lb [facility] Body height Measured 68 in 68 in [facility] ID Date Data Source [id number] 03/11/2021 08:26:17 AM EDT [facility] Name Value Range Interpretation Code Description Data Source(s) WEIGHT RECORDED 199.52 lb 199.52 lb [facility] Body height Measured 68.11 in 68.11 in [facility] TRANSFER FROM [facility] ID Date Data Source [id number] 04/02/2021 07:40:24 PM EDT [facility] Name Value Range Interpretation Code Description Data Source(s) WEIGHT RECORDED 200.00 pounds 200.00 pounds [facility] Height 68 Inches 068 Inches [facility] ID Date Data Source [id number] 02/12/2021 01:04:37 PM EDT [facility] Name Value Range Interpretation Code Description Data Source(s) WEIGHT RECORDED 205.00 pounds 205.00 pounds [facility] Height 68 Inches 068 Inches [facility] ID Date Data Source [id number] 01/15/2021 12:37:23 PM EST [facility] Name Value Range Interpretation Code Description Data Source(s) WEIGHT RECORDED 207.00 pounds 207.00 pounds [facility] Height 68 Inches 068 Inches [facility] Patient Treatment Plan of Care Planned Activity Planned Date Details Description Data Source (s) cetirizine hydrochloride 10 MG Oral Tablet 07/30/2021 12:00:00 AM E DT eC1 ([facility]) Hydroxyzine Hydrochloride 25 MG Oral Tablet 07/16/2021 12:00:00 AM [place] [id number] ([facility]) pantoprazole 40 MG Delayed Release Oral Tablet 06/05/2021 12:00:00 AM [facility] Chorionic Gonadotropin 80390 UNT/ML Injectable Solutio n 05/15/2021 12:00:00 AM [facility] Clobetasol Propionate 0.5 MG/ML Topical Cream 04/01/2021 12:00:00 A M [facility] apixaban 2.5 MG Oral Tablet 04/01/2021 12:00:00 AM [facility] quetiapine 50 MG Oral Tablet 04/01/2021 12:00:00 AM [facility] Ondansetron 4 MG Disintegrating Oral Tablet 03/22/2021 03:43:19 PM [facility] acetaminophen (TYLENOL) tablet 650 mg 03/22/2021 03:42:40 PM [facility] Sodium Chloride 0.111 MEQ/ML Nasal Solution 03/22/2021 03:39:25 PM [facility] Phenazopyridine hydrochloride 200 MG Delayed Release O ral Tablet 03/08/2021 12:00:00 AM [facility] Hydroxyzine Hydrochloride 50 MG Oral Tablet 03/07/2021 01:59:51 AM [facility] Melatonin 5 MG Oral Tablet 03/07/2021 01:59:43 AM [facility] Aluminum Hydroxide 40 MG/ML / Magnesium Hydroxide 40 MG/ML / Simethicone 4 MG/ML Oral Suspension 03/07/2021 01:59:34 AM EDT [facility] Ondansetron 4 MG Disintegrating Oral Tablet 03/07/2021 01:59:29 AM [facility] Magnesium Hydroxide 80 MG/ML Oral Suspension 03/07/2021 01:59:26 AM [facility] Acetaminophen 325 MG Oral Tablet 03/07/2021 01:59:13 AM [facility] Syringe 22G X 1" 3 ML 02/27/2021 12:00:00 AM [facility] Chorionic Gonadotropin 55877 UNT/ML Injectable Solutio n 02/27/2021 12:00:00 AM [facility] Chorionic Gonadotropin 63502 UNT/ML Injectable Solutio n 11/28/2020 12:00:00 AM [facility] Escitalopram 20 MG Oral Tablet 11/07/2020 12:00:00 AM [facility] Trazodone Hydrochloride 50 MG Oral Tablet 11/07/2020 12:00:00 AM [facility] apixaban 5 MG Oral Tablet 11/07/2020 12:00:00 AM [facility] HM LIDOCAINE PATCH EX 11/07/2020 12:00:00 AM [facility] Xolair 150 MG/ML 10/19/2020 12:00:00 AM EST eCW1 ([facility]) Xolair 150 MG/ML 10/19/2020 12:00:00 AM [facility] eCW1 ([facility]) Xolair 150 MG/ML 10/19/2020 12:00:00 AM EST eC ([facility]) Divalproex Sodium 250 MG Delayed Release Oral Tablet [facility] Escitalopram 10 MG Oral Tablet [facility] Naproxen 500 MG Oral Tablet [facility] Acetaminophen 325 MG / Hydrocodone Bitartrate 5 MG Oral Tablet [facility] Acetaminophen 500 MG Oral Tablet [facility] Ivermectin 10 MG/ML Topical Cream [facility]
== END 2021-10-14 12:53 | disposition left against medical advice (07) ==
LOC: M ED 11:40
DX: Z53.29 Procedure and treatment not carried out because of patient's decision for other reasons (principal)

== ENCOUNTER → 2021-10-17 | Outpatient (REF) | LOC: M LABSMTC 10:31 | PROVIDERS: ATTEND Pediatrics | DX: Z11.52 Encounter for screening for COVID-19 (principal) ==

== ENCOUNTER 2022-01-20 23:02 | Emergency (ER) | payer OTHER ==
[~2022-01-20] VITALS: Ht 172.7 cm; Wt 94.1 kg
[~2022-01-20 23:02] MED LIST changes: -CEFD1CAP8 PO; +CEFD300C41 PO
[2022-01-21] MEDS ORDERED: methylPREDNISolone 125MG 2ML VIAL IV ONE (02:20)
[2022-01-21] MEDS ORDERED: PRED20TA PO (03:26)
[2022-01-21 03:52] VITALS: BP 107/64
== END 2022-01-21 03:58 | disposition home or self-care (01) ==
LOC: M ED 23:02
DX: T78.40XA Allergy, unspecified, initial encounter (principal); L50.9 Urticaria, unspecified; M54.50 Low back pain, unspecified; Z79.899 Other long term (current) drug therapy; Z88.6 Allergy status to analgesic agent
CPT/HCPCS: 96374; 99284; G0463; J2930

== ENCOUNTER → 2022-02-03 | Outpatient (CLI) | payer OTHER ==
[~2022-02-03] MED LIST changes: +FUROSEMIDE 20MG/2ML VIAL (J1940) As Ordered ONE; +PRED20TA PO
== END ==
LOC: M RAD 07:56
PROVIDERS: ATTEND Physician Assistant
DX: N13.0 Hydronephrosis with ureteropelvic junction obstruction (principal)
CPT/HCPCS: 78708; A9562; J1940

== ENCOUNTER → 2022-02-20 | Outpatient (REF) | payer OTHER ==
[~2022-02-20] MED LIST changes: -FUROSEMIDE 20MG/2ML VIAL (J1940) As Ordered ONE
== END ==
LOC: M LAB REF 12:14
PROVIDERS: ATTEND Internal Medicine Gastroenterology
DX: K62.5 Hemorrhage of anus and rectum (principal)

== ENCOUNTER → 2022-02-26 | Outpatient (CLI) | payer OTHER | LOC: M LAB 10:25 | PROVIDERS: ATTEND Internal Medicine | DX: E22.1 Hyperprolactinemia (principal) ==

== ENCOUNTER 2022-02-28 16:38 | Emergency (ER) | payer OTHER ==
[~2022-02-28] VITALS: Ht 172.7 cm; Wt 95.5 kg
[2022-02-28 17:35] LABS: HEMATOCRIT 41.8 % (42.0-52.0); HEMOGLOBIN 13.6 g/dl (13.5-17.5); MEAN CORPUSCULAR HEMOGLOBIN 29.5 pg (27.0-33.0); MEAN CORPUSCULAR HGB CONC 32.5 g/dl (32.0-36.5); MEAN CORPUSCULAR VOLUME 90.7 fl (80.0-96.0); PLATELET COUNT, AUTOMATED 190 10^3/uL (150-450); RED BLOOD COUNT 4.61 10^6/uL (4.30-6.10); WHITE BLOOD COUNT 5.6 10^3/uL (4.0-10.0)
[2022-02-28 18:01] LABS: AMPHETAMINES LEVEL URINE NEGATIVE (NEGATIVE); BARBITURATES URINE NEGATIVE (NEGATIVE); BENZODIAZEPINES URINE NEGATIVE (NEGATIVE); CANNABINOIDS URINE NEGATIVE (NEGATIVE); COCAINE METABOLITE URINE NEGATIVE (NEGATIVE); METHADONE URINE NEGATIVE (NEGATIVE); OPIATES URINE NEGATIVE (NEGATIVE); PHENCYCLIDINE URINE NEGATIVE (NEGATIVE)
[2022-02-28 18:14] LABS: ACETAMINOPHEN LEVEL < 2.0 UG/ML (10.0-30.0); ALBUMIN 3.9 GM/DL (3.2-5.2); ALT/SGPT 50 U/L (12-78); BILIRUBIN,DIRECT 0.2 MG/DL (0.0-0.2); BILIRUBIN,TOTAL 0.5 MG/DL (0.2-1.0); BLOOD UREA NITROGEN 12 MG/DL (7-18); CALCIUM LEVEL 9.3 MG/DL (8.5-10.1); CARBON DIOXIDE LEVEL 30 MEQ/L (21-32); CHLORIDE LEVEL 108 MEQ/L (98-107); CREATININE FOR GFR 0.99 MG/DL (0.70-1.30); ETHYL ALCOHOL (ETHANOL) < 0.003 % (0.000-0.010); GLOMERULAR FILTRATION RATE > 60.0 (>60); GLUCOSE, FASTING 106 MG/DL (70-100); POTASSIUM SERUM 3.7 MEQ/L (3.5-5.1); SALICYLATE LEVEL < 1.7 MG/DL (5.0-30.0); SODIUM LEVEL 142 MEQ/L (136-145); THYROID STIMULATING HORMONE 0.853 uIU/ML (0.358-3.740); TOTAL PROTEIN 7.3 GM/DL (6.4-8.2)
[2022-02-28] MEDS ORDERED: BUSP15TA47 PO (18:40)
[2022-02-28] MEDS ORDERED: CETI10TA4 PO (18:40)
[2022-02-28] MEDS ORDERED: HYDR-3363 PO (18:40)
[2022-02-28] MEDS ORDERED: GABA-282 PO (18:40)
[2022-02-28] MEDS ORDERED: POLY17PO18 PO (18:40)
[2022-02-28] MEDS ORDERED: QUET1TAB17 PO (18:40)
[2022-02-28] MEDS ORDERED: HOME MED LIST COMPLETE! XX SCH (18:40)
[2022-02-28] MEDS ORDERED: PANT40TA29 PO (18:40)
[2022-02-28] MEDS ORDERED: VENL75CA47 PO (18:40)
[2022-03-01 01:29] VITALS: BP 128/60
== END 2022-03-01 01:46 | disposition home or self-care (01) ==
LOC: M ED 16:38
DX: F32.A Depression, unspecified (principal); F41.9 Anxiety disorder, unspecified; Z86.718 Personal history of other venous thrombosis and embolism; K21.9 Gastro-esophageal reflux disease without esophagitis; Z88.6 Allergy status to analgesic agent; Z91.013 Allergy to seafood; Z79.899 Other long term (current) drug therapy

== ENCOUNTER → 2022-03-06 | Outpatient (CLI) | payer OTHER ==
[~2022-03-06] MED LIST changes: +BUSP15TA47 PO; +CETI10TA4 PO; +GABA-282 PO; +HYDR-3363 PO; +POLY17PO18 PO
[2022-03-06 10:57] LABS: BASO % 0.5 % (0.0-1.0); EOS # 0.1 10^3/uL (0.0-0.5); EOS % 1.7 % (0.0-3.0); HEMATOCRIT 43.5 % (42.0-52.0); HEMOGLOBIN 14.5 g/dl (13.5-17.5); LYMPH # 1.9 10^3/uL (1.5-5.0); LYMPH % 44.8 % (24.0-44.0); MEAN CORPUSCULAR HEMOGLOBIN 29.5 pg (27.0-33.0); MEAN CORPUSCULAR HGB CONC 33.3 g/dl (32.0-36.5); MEAN CORPUSCULAR VOLUME 88.6 fl (80.0-96.0); MONO # 0.3 10^3/uL (0.0-0.8); MONO % 7.5 % (2.0-8.0); NEUTROPHILS # 1.9 10^3/uL (1.5-8.5); RED BLOOD COUNT 4.91 10^6/uL (4.30-6.10); WHITE BLOOD COUNT 4.2 10^3/uL (4.0-10.0)
[2022-03-06 11:24] LABS: ALBUMIN 4.1 GM/DL (3.2-5.2); ALT/SGPT 47 U/L (12-78); BILIRUBIN,TOTAL 0.6 MG/DL (0.2-1.0); BLOOD UREA NITROGEN 10 MG/DL (7-18); CALCIUM LEVEL 10.1 MG/DL (8.5-10.1); CARBON DIOXIDE LEVEL 29 MEQ/L (21-32); CHLORIDE LEVEL 110 MEQ/L (98-107); COMPLEMENT C3 153 MG/DL (90-180); COMPLEMENT C4 28 MG/DL (10-40); GLOMERULAR FILTRATION RATE > 60.0 (>60); GLUCOSE, FASTING 88 MG/DL (70-100); POTASSIUM SERUM 4.5 MEQ/L (3.5-5.1); RHEUMATOID FACTOR QUANT < 10.0 IU/ML (<15.0); SODIUM LEVEL 143 MEQ/L (136-145); TOTAL PROTEIN 7.7 GM/DL (6.4-8.2)
[2022-03-06 11:25] LABS: THYROID PEROXIDASE ANTIBODY < 28.0 U/ML (<60.0); TOTAL T3 129.8 NG/DL (60.0-181.0)
[2022-03-06 11:37] LABS: ERYTHROCYTE SEDIMENTATION RATE 1 mm/hr (0-15)
[2022-03-07 11:21] LABS: COLD AGGLUTININS NEGATIVE (NEGATIVE)
== END ==
LOC: M LAB 10:02
PROVIDERS: ATTEND Allergy & Immunology Allergy
DX: L50.1 Idiopathic urticaria (principal); L50.2 Urticaria due to cold and heat

== ENCOUNTER 2022-03-24 15:04 | Inpatient (IN) | payer OTHER ==
[~2022-03-24] VITALS: Ht 175.3 cm; Wt 88.0 kg
[2022-03-24 18:00] LABS: RSV AMPLIFICATION NEGATIVE (NEGATIVE)
[2022-03-24 22:04] LABS: HEMOGLOBIN 13.2 g/dl (13.5-17.5); MEAN CORPUSCULAR HEMOGLOBIN 30.3 pg (27.0-33.0); MEAN CORPUSCULAR HGB CONC 33.8 g/dl (32.0-36.5); MEAN CORPUSCULAR VOLUME 89.4 fl (80.0-96.0); PLATELET COUNT, AUTOMATED 184 10^3/uL (150-450); RED BLOOD COUNT 4.36 10^6/uL (4.30-6.10); WHITE BLOOD COUNT 5.9 10^3/uL (4.0-10.0)
[2022-03-24 22:36] LABS: AMPHETAMINES LEVEL URINE NEGATIVE (NEGATIVE); BARBITURATES URINE NEGATIVE (NEGATIVE); BENZODIAZEPINES URINE NEGATIVE (NEGATIVE); CANNABINOIDS URINE NEGATIVE (NEGATIVE); COCAINE METABOLITE URINE NEGATIVE (NEGATIVE); METHADONE URINE NEGATIVE (NEGATIVE); OPIATES URINE NEGATIVE (NEGATIVE); PHENCYCLIDINE URINE NEGATIVE (NEGATIVE)
[2022-03-24 22:45] LABS: ACETAMINOPHEN LEVEL < 2.0 UG/ML (10.0-30.0); ALBUMIN 3.5 GM/DL (3.2-5.2); ALT/SGPT 44 U/L (12-78); BILIRUBIN,DIRECT 0.2 MG/DL (0.0-0.2); BILIRUBIN,TOTAL 0.9 MG/DL (0.2-1.0); BLOOD UREA NITROGEN 13 MG/DL (7-18); CALCIUM LEVEL 9.5 MG/DL (8.5-10.1); CARBON DIOXIDE LEVEL 27 MEQ/L (21-32); CHLORIDE LEVEL 109 MEQ/L (98-107); CREATININE FOR GFR 0.91 MG/DL (0.70-1.30); ETHYL ALCOHOL (ETHANOL) 0.003 % (0.000-0.010); GLOMERULAR FILTRATION RATE > 60.0 (>60); GLUCOSE, FASTING 117 MG/DL (70-100); POTASSIUM SERUM 3.6 MEQ/L (3.5-5.1); SALICYLATE LEVEL < 1.7 MG/DL (5.0-30.0); SODIUM LEVEL 144 MEQ/L (136-145); TOTAL PROTEIN 7.2 GM/DL (6.4-8.2)
[2022-03-25] MEDS ORDERED: CETIRIZINE (ZyrTEC) 10 MG TAB PO ONE (00:15)
[2022-03-25] MEDS ORDERED: GABAPENTIN 300 MG CAP PO ONE (00:15)
[2022-03-25] MEDS ORDERED: QUEtiapine FUMARATE 25 MG TAB PO ONE (00:20)
[2022-03-25] MEDS ORDERED: MIRA1POW3 PO (06:20)
[2022-03-25] MEDS ORDERED: HOME MED LIST COMPLETE! XX SCH (06:20)
[2022-03-25] MEDS ORDERED: FAMO40TA3 PO (06:20)
[2022-03-25] MEDS ORDERED: HYDR-643 PO (06:20)
[2022-03-25] MEDS: GABAPENTIN 300 MG CAP PO SCH ×3 (10:01→21:35)
[2022-03-25] MEDS: FAMOTIDINE 20 MG TAB PO SCH (10:01)
[2022-03-25] MEDS: CETIRIZINE (ZyrTEC) 10 MG TAB PO SCH ×3 (10:02→21:36)
[2022-03-25] MEDS: VENLAFAXINE **XR** 75MG CAPSULE PO SCH ×2 (10:02→21:36)
[2022-03-25] MEDS: QUEtiapine FUMARATE 25 MG TAB PO SCH (21:36)
[2022-03-25] MEDS: busPIRone 5 MG TAB PO SCH (21:36)
[2022-03-26] MEDS: FAMOTIDINE 20 MG TAB PO SCH (09:58)
[2022-03-26] MEDS: CETIRIZINE (ZyrTEC) 10 MG TAB PO SCH ×3 (09:59→22:33)
[2022-03-26] MEDS: GABAPENTIN 300 MG CAP PO SCH ×3 (09:59→22:32)
[2022-03-26] MEDS: QUEtiapine FUMARATE 25 MG TAB PO SCH ×2 (21:00→22:33)
[2022-03-26] MEDS ORDERED: traZODone 50 MG TAB PO SCH (21:00)
[2022-03-26] MEDS: busPIRone 5 MG TAB PO SCH (22:32)
[2022-03-27] MEDS: NICOTINE 21MG/24HR 1 EA TRANSDERMAL TD SCH (09:00)
[2022-03-27] MEDS: VENLAFAXINE **XR** 75MG CAPSULE PO SCH (12:07)
[2022-03-27] MEDS: CETIRIZINE (ZyrTEC) 10 MG TAB PO SCH ×3 (12:07→21:36)
[2022-03-27] MEDS: GABAPENTIN 300 MG CAP PO SCH ×3 (12:07→21:37)
[2022-03-27] MEDS: FAMOTIDINE 20 MG TAB PO SCH (12:07)
[2022-03-27] MEDS ORDERED: hydrOXYzine 10 MG TAB PO PRN (14:25)
[2022-03-27] MEDS ORDERED: traZODone 50 MG TAB PO PRN (14:25)
[2022-03-27] MEDS ORDERED: MAALOX 30 ML SUSP *UDC PO PRN (14:25)
[2022-03-27] MEDS ORDERED: methocarbamoL 500 MG TAB PO PRN (14:25)
[2022-03-27] MEDS ORDERED: diphenhydrAMINE 25MG CAP PO PRN (14:25)
[2022-03-27 15:40] VITALS: BP 142/96
[2022-03-27] MEDS: busPIRone 5 MG TAB PO SCH (21:37)
[2022-03-27] MEDS: QUEtiapine FUMARATE 25 MG TAB PO SCH (21:37)
[2022-03-27] MEDS: LIDOCAINE 5% (LIDODERM) PATCH TD SCH (21:38)
[2022-03-28 06:32] VITALS: BP 123/56
[2022-03-28] MEDS: NICOTINE 21MG/24HR 1 EA TRANSDERMAL TD SCH (09:00)
[2022-03-28] MEDS: **NOTE PATIENT COMMENT** MISC XX SCH (09:00)
[2022-03-28] MEDS: VENLAFAXINE **XR** 75MG CAPSULE PO SCH (10:30)
[2022-03-28] MEDS: FAMOTIDINE 20 MG TAB PO SCH (10:31)
[2022-03-28] MEDS: CETIRIZINE (ZyrTEC) 10 MG TAB PO SCH (10:31)
[2022-03-28] MEDS: GABAPENTIN 300 MG CAP PO SCH ×3 (10:31→21:01)
[2022-03-28] MEDS ORDERED: ACETAMINOPHEN TAB 650MG DOSE (2X325MG) PO PRN (17:00)
[2022-03-28 17:19] VITALS: BP 155/80
[2022-03-28] MEDS: VANICREAM MOISTURIZING SKIN CREAM 113GM TUBE TOP SCH (21:00)
[2022-03-28] MEDS: LIDOCAINE 5% (LIDODERM) PATCH TD SCH (21:01)
[2022-03-28] MEDS: QUEtiapine FUMARATE 25 MG TAB PO SCH (21:01)
[2022-03-28] MEDS: busPIRone 5 MG TAB PO SCH (21:01)
[2022-03-28] MEDS: ARIPiprazole 2 MG TAB PO SCH (21:01)
[2022-03-29 06:44] VITALS: BP 131/76
[2022-03-29 08:02] LABS: CHOLESTEROL RISK RATIO 3.245 (<5)
[2022-03-29] MEDS: FAMOTIDINE 20 MG TAB PO SCH (08:56)
[2022-03-29] MEDS: GABAPENTIN 300 MG CAP PO SCH ×3 (08:57→21:38)
[2022-03-29] MEDS: VENLAFAXINE **XR** 75MG CAPSULE PO SCH (08:57)
[2022-03-29] MEDS: CETIRIZINE (ZyrTEC) 10 MG TAB PO SCH (08:57)
[2022-03-29] MEDS: VANICREAM MOISTURIZING SKIN CREAM 113GM TUBE TOP SCH ×2 (08:58→21:00)
[2022-03-29] MEDS: NICOTINE 21MG/24HR 1 EA TRANSDERMAL TD SCH (08:58)
[2022-03-29] MEDS: **NOTE PATIENT COMMENT** MISC XX SCH (09:51)
[2022-03-29] MEDS: busPIRone 5 MG TAB PO SCH (21:38)
[2022-03-29] MEDS: QUEtiapine FUMARATE 25 MG TAB PO SCH (21:38)
[2022-03-29] MEDS: ARIPiprazole 2 MG TAB PO SCH (21:38)
[2022-03-29] MEDS: LIDOCAINE 5% (LIDODERM) PATCH TD SCH (21:38)
[2022-03-30 06:42] VITALS: BP 142/64
[2022-03-30] MEDS: NICOTINE 21MG/24HR 1 EA TRANSDERMAL TD SCH (09:00)
[2022-03-30] MEDS: VANICREAM MOISTURIZING SKIN CREAM 113GM TUBE TOP SCH ×2 (09:00→21:00)
[2022-03-30] MEDS: FAMOTIDINE 20 MG TAB PO SCH (09:56)
[2022-03-30] MEDS: VENLAFAXINE **XR** 75MG CAPSULE PO SCH (09:56)
[2022-03-30] MEDS: GABAPENTIN 300 MG CAP PO SCH ×3 (09:57→22:01)
[2022-03-30] MEDS: CETIRIZINE (ZyrTEC) 10 MG TAB PO SCH (09:57)
[2022-03-30] MEDS: **NOTE PATIENT COMMENT** MISC XX SCH (09:58)
[2022-03-30] MEDS: ARIPiprazole 2 MG TAB PO SCH (22:00)
[2022-03-30] MEDS: LIDOCAINE 5% (LIDODERM) PATCH TD SCH (22:00)
[2022-03-30] MEDS: busPIRone 5 MG TAB PO SCH (22:01)
[2022-03-30] MEDS: QUEtiapine FUMARATE 25 MG TAB PO SCH (22:01)
[2022-03-31 06:00] VITALS: BP 128/59
[2022-03-31] MEDS: NICOTINE 21MG/24HR 1 EA TRANSDERMAL TD SCH (09:00)
[2022-03-31] MEDS: VENLAFAXINE **XR** 75MG CAPSULE PO SCH (09:34)
[2022-03-31] MEDS: GABAPENTIN 300 MG CAP PO SCH ×3 (09:34→21:49)
[2022-03-31] MEDS: FAMOTIDINE 20 MG TAB PO SCH (09:35)
[2022-03-31] MEDS: CETIRIZINE (ZyrTEC) 10 MG TAB PO SCH (09:35)
[2022-03-31] MEDS: VANICREAM MOISTURIZING SKIN CREAM 113GM TUBE TOP SCH ×2 (09:38→21:49)
[2022-03-31] MEDS: **NOTE PATIENT COMMENT** MISC XX SCH (09:40)
[2022-03-31 18:00] VITALS: BP 152/86
[2022-03-31] MEDS: QUEtiapine FUMARATE 25 MG TAB PO SCH (21:48)
[2022-03-31] MEDS: busPIRone 5 MG TAB PO SCH (21:49)
[2022-03-31] MEDS: ARIPiprazole 2 MG TAB PO SCH (21:49)
[2022-03-31] MEDS: LIDOCAINE 5% (LIDODERM) PATCH TD SCH (21:50)
[2022-04-01 06:35] VITALS: BP 128/79
[2022-04-01] MEDS: VENLAFAXINE **XR** 37.5 MG CAPSULE PO SCH (08:55)
[2022-04-01] MEDS: FAMOTIDINE 20 MG TAB PO SCH (08:55)
[2022-04-01] MEDS: CETIRIZINE (ZyrTEC) 10 MG TAB PO SCH (08:55)
[2022-04-01] MEDS: GABAPENTIN 300 MG CAP PO SCH ×3 (08:55→21:47)
[2022-04-01] MEDS: VANICREAM MOISTURIZING SKIN CREAM 113GM TUBE TOP SCH ×2 (08:56→21:46)
[2022-04-01] MEDS: NICOTINE 21MG/24HR 1 EA TRANSDERMAL TD SCH (09:00)
[2022-04-01] MEDS: **NOTE PATIENT COMMENT** MISC XX SCH (09:01)
[2022-04-01 18:00] VITALS: BP 146/92
[2022-04-01] MEDS: LIDOCAINE 5% (LIDODERM) PATCH TD SCH (21:46)
[2022-04-01] MEDS: QUEtiapine FUMARATE 25 MG TAB PO SCH (21:47)
[2022-04-01] MEDS: busPIRone 5 MG TAB PO SCH (21:47)
[2022-04-01] MEDS: ARIPiprazole 2 MG TAB PO SCH (21:47)
[2022-04-02 06:24] VITALS: BP 129/68
[2022-04-02] MEDS: NICOTINE 21MG/24HR 1 EA TRANSDERMAL TD SCH (09:00)
[2022-04-02] MEDS: FAMOTIDINE 20 MG TAB PO SCH (09:19)
[2022-04-02] MEDS: GABAPENTIN 300 MG CAP PO SCH (09:19)
[2022-04-02] MEDS: VENLAFAXINE **XR** 37.5 MG CAPSULE PO SCH (09:19)
[2022-04-02] MEDS: CETIRIZINE (ZyrTEC) 10 MG TAB PO SCH (09:19)
[2022-04-02] MEDS: **NOTE PATIENT COMMENT** MISC XX SCH (09:20)
[2022-04-02] MEDS: VANICREAM MOISTURIZING SKIN CREAM 113GM TUBE TOP SCH (09:20)
[2022-04-02] MEDS ORDERED: VANI1CRE5 TOP (10:57)
[2022-04-02] MEDS ORDERED: ABIL1TAB13 PO (10:57)
[2022-04-02] MEDS ORDERED: GABA-282 PO (10:57)
[2022-04-02] MEDS ORDERED: BUSP15TA47 PO (10:57)
[2022-04-02] MEDS ORDERED: VENL37.52 PO (10:57)
[2022-04-02] MEDS ORDERED: VENL75CA2 PO (10:57)
[2022-04-02] MEDS ORDERED: NICO21PAT TD (10:57)
[2022-04-02] MEDS ORDERED: QUET1TAB17 PO (10:57)
== END 2022-04-02 12:12 | disposition home or self-care (01) | DRG 885 ==
LOC: M ED 15:04 → M ED INP 03-27 14:21 → M PSY 03-27 15:35
PROVIDERS: ADMIT Student in an Organized Health Care Education/Training Program; ATTEND Student in an Organized Health Care Education/Training Program
DX: F33.1 Major depressive disorder, recurrent, moderate (principal); U07.1 COVID-19; R45.851 Suicidal ideations; F43.10 Post-traumatic stress disorder, unspecified; Z91.51 Personal history of suicidal behavior; K21.9 Gastro-esophageal reflux disease without esophagitis; F41.1 Generalized anxiety disorder; Z79.899 Other long term (current) drug therapy; Z88.8 Allergy status to other drugs, medicaments and biological substances; Z91.013 Allergy to seafood; G47.33 Obstructive sleep apnea (adult) (pediatric); J45.909 Unspecified asthma, uncomplicated; Q98.4 Klinefelter syndrome, unspecified; Z86.718 Personal history of other venous thrombosis and embolism; Z56.6 Other physical and mental strain related to work; D75.A Glucose-6-phosphate dehydrogenase (G6PD) deficiency without anemia; F43.22 Adjustment disorder with anxiety